=== PATIENT | female | born 1965 | race Caucasian/White ===

== ENCOUNTER 2017-08-29 14:57 | Emergency (ER) | payer OTHER, SELFPAY ==
[2017-08-29 14:59] VITALS: BP 139/74; PULSE 114; RESP 18; TEMP 36.1; O2SAT 97; BMI 30.4
--- NOTE | 2017-08-29 16:13 | EKG12_ITS ---
Test Reason : DIZZINESS Blood Pressure : / mmHG Vent. Rate : 096 BPM Atrial Rate : 096 BPM P-R Int : 126 ms QRS Dur : 078 ms QT Int : 358 ms P-R-T Axes : 027 043 030 degrees QTc Int : 452 ms Normal sinus rhythm Normal ECG Confirmed by LA NENA VAZQUEZ ([id number]), assistant editor SHERRY COYNE ([id number]) on 09/02/2017 10:20:21 AM Referred By: TOMASZ Confirmed By:LA NENA VAZQUEZ
[2017-08-29 16:26] VITALS: BP 133/84; PULSE 97; RESP 14; O2SAT 100
--- NOTE | 2017-08-29 16:29 | CT_ITS ---
CT Head or Brain W/O Contrast INDICATION: Head injury, dizzy and fell hitting head on floor, laceration above left eye, pt states she had a reaction to prednisone for a sinus infection COMPARISON: None TECHNIQUE: Noncontrast axial CT examination of the brain. Radiation dose optimization applied. FINDINGS: The ventricular system is normal in size and symmetric. The cortical sulci, sylvian fissures, and basal cisterns are well seen. The kaiser-white matter junction is distinct. There is no evidence of acute intracranial hemorrhage, mass effect, midline shift, or abnormal extra-axial collection. The calvarium is intact and the visualized paranasal sinuses and mastoid air cells are clear. CT/Brain/Head without Contrast IMPRESSION: No evidence of acute intracranial abnormality by noncontrast CT. at 1715 Reported and signed by: Nickie Gastelum MD Electronically Signed: Nickie Gastelum MD at 16:13 EST Tel , Service support ,
--- NOTE | 2017-08-29 16:35 | ED.DCSUM_ITS ---
- ER Visit Summary Date of Service: 08/29/17 Chief Complaint: Head injury History of Present Illness: The patient is a 52 F who states that after a couple months of a sinus infection she was placed on Medrol and Levaquin. She took these around noon yesterday. She went to work into noting blurred vision. She states that eventually she went home having a difficult time driving due to her vision. She is going up the stairs tripped over her dog hit her head is unknown if she lost consciousness. She states that she has blood on her face and her hands. She notes a cut to the left upper eyebrow/lid. States that she continues to have blurry vision. States she got confused on the way here to the hospital. She was originally seen at the [facility] and had an eye examination was sent here. No vomiting. She also states her left knee is braced and sore. Last tetanus shot was approximately 2 years ago Physical Examination: Afebrile vital signs are stable Gen: Well-nourished well-developed Head: Normocephalic left upper eyelid ecchymosis and swelling. There is a well approximated partial thickness laceration measuring about 2-1/2 cm curvilinear in that left eyebrow area. Eyes: Perrl EOMI no hyphema ENT: TMs clear no rhinorrhea moist mucous membranes Neck: Supple no lymphadenopathy no JVD nontender CVS: Regular rate rhythm no murmurs normal S1-S2 Respiratory: No distress clear to auscultation bilaterally chest nontender Abdomen: Soft nontender nondistended normal bowel sounds no masses Back: Nontender Extremity: Nontender no edema Skin: Normal color no rash Neuro: alert orientated ?3 CN II-XII intact normal strength sensation reflexes gait cerebellar Psych: Normal affect normal mood Test Results: CT the brain was obtained was negative. EKG is a sinus rhythm at a rate of 96. Emergency Department Course and Treatment: Recommendations the patient stop her Medrol and her Levaquin. Eliminate any new medication could be causing it. She probably has a degree of concussion given the head injury. I will write her off work through Friday. She will visit with her family doctor next week. Impression: 1. Concussion 2. Left periorbital contusion 3. Partial thickness laceration of left eyebrow without repair This note was generated with [employer] software. It may contain incorrect words, spelling, and punctuation that were not noted in review of the chart prior to signing ED Disposition - Plan for ED Patient: Disposition: Home or Assisted Living Chief Complaint: Dizziness Instructions: ED Concussion Referrals: Karl Pichardo MD [Primary Care Provider] - (in 3 days if not improving)
[2017-08-29 17:40] VITALS: BP 131/77; PULSE 96; RESP 15; O2SAT 97
== END 2017-08-29 17:45 | disposition home or self-care (01) ==
PROVIDERS: Emergency Provider Emergency Medicine; Family Provider Family Medicine; PCP Family Medicine
DX: S06.0X9A Concussion with loss of consciousness of unspecified duration, initial encounter (principal); S00.12XA Contusion of left eyelid and periocular area, initial encounter; S01.112A Laceration without foreign body of left eyelid and periocular area, initial encounter; W01.0XXA Fall on same level from slipping, tripping and stumbling without subsequent striking against object, initial encounter; Y93.01 Activity, walking, marching and hiking; Y92.009 Unspecified place in unspecified non-institutional (private) residence as the place of occurrence of the external cause; I10 Essential (primary) hypertension; E11.9 Type 2 diabetes mellitus without complications; F32.9 Major depressive disorder, single episode, unspecified; K21.9 Gastro-esophageal reflux disease without esophagitis; Z79.4 Long term (current) use of insulin; Z79.899 Other long term (current) drug therapy
CPT/HCPCS: 70450; 93005; 99283

== ENCOUNTER → 2017-09-19 14:02 | Emergency (ER) | payer OTHER, SELFPAY ==
[2017-09-19 14:03] VITALS: BP 121/78; PULSE 98; RESP 16; TEMP 36.2; O2SAT 100; BMI 29.5
== END ==
PROVIDERS: Family Provider Family Medicine; PCP Family Medicine
DX: R69 Illness, unspecified (principal)

== ENCOUNTER 2017-10-04 00:14 | Emergency (ER) | payer OTHER, SELFPAY ==
[2017-10-04 00:15] VITALS: PULSE 114; RESP 28; TEMP 36.9; O2SAT 95; BMI 30.1
[2017-10-04 00:17] VITALS: BP 161/115
--- NOTE | 2017-10-04 00:23 | ED.VISSUMM ---
- ER Visit Summary Date of Service: 10/04/17 Chief Complaint: [] Cough wheezing shortness of breath History of Present Illness: The patient is a 52 F with the above for the last 4 days. Gradual onset intermittent coughing occasional productive sputum. History of asthma. She has been using albuterol inhaler intermittently. Use prior to coming in. She has a [id number] cough medicine she has been using as well. Positive sick contacts. She has a history of asthma pneumonia remotely. She does not smoke. Physical Examination: Vital signs reviewed General: Well-nourished well-developed Head: Normocephalic atraumatic Eyes: Pupils equal round and reactive to light extraocular movements intact ENT: TMs clear no hemotympanum no trauma Neck: Nontender full range of motion Cardiovascular: Regular rate rhythm no murmurs normal S1-S2 Respiratory: No distress or wheezes throughout all lung hart chest nontender Abdomen: Soft nontender nondistended normal bowel sounds no masses Back: Nontender no CVA tenderness Extremities: Nontender active range of motion ?4 extremities no trauma Skin: Normal color no trauma Neuro alert oriented cranial nerves II through XII intact normal strength sensation reflexes Test Results: [] Emergency Department Course and Treatment: [] Prednisone and albuterol Atrovent nebulizer followed by albuterol nebulizers. Chest x-ray obtained. Nothing acute. After breathing treatments the patient developed a panic attack. Given intramuscular Ativan for this which resolved at. EKG obtained shows sinus tachycardia only. No ischemia. After the treatment with albuterol and Atrovent her wheezing has resolved and she is resting comfortably. Ativan helped stop her panic attack. She has had that prior. She will be given Ativan and prednisone for home as well as an inhaler. At this time she has asthmatic bronchitis that I think triggered a panic attack. Treatment Plan: [] Disposition: [] Impression: [] Asthmatic bronchitis Panic attack This note was generated with [employer] dictation software. It may contain incorrect words, spelling, and punctuation that were not noted in review of the chart prior to signing ED Disposition - Plan for ED Patient: Chief Complaint: Shortness of Breath Referrals: Karl Pichardo MD [Primary Care Provider] -
[2017-10-04 00:31] VITALS: PULSE 112; RESP 24
[2017-10-04] MEDS: Albuterol 2.5 MG/3 ML VIAL.NEB. INHALATION ×2 (00:31)
[2017-10-04] MEDS: Ipratropium/Albuterol Sulfate 3 ML AMPUL.NEB INHALATION (00:31)
--- NOTE | 2017-10-04 00:45 | RAD_ITS ---
STUDY: X-RAY CHEST REASON FOR EXAM: Female, 52 years old. Cough TECHNIQUE: Single frontal view COMPARISON: November 03, 2016 FINDINGS: The lungs are clear and expanded. There is no demonstrated pleural abnormality. Normal size heart. Normal mediastinum and jojo. Normal visualized pulmonary arteries. Normal visualized aortic arch and descending thoracic aorta. Normal visualized thoracic spine. Normal visualized ribs, clavicles, and shoulders. There is no demonstrated abnormality of the visualized soft tissue structures of the upper abdomen. RAD/Chest 1 View (Portable) IMPRESSION: Normal x-ray examination of the chest. Electronically Signed: Refugio Fu MD at 1:55 EST , Service support ,
[2017-10-04] MEDS: LORazepam 2 MG/ML Syringe IM (00:58)
[2017-10-04 01:27] VITALS: O2SAT 96
[2017-10-04 01:43] VITALS: BP 145/95; PULSE 115; RESP 21; O2SAT 98
--- NOTE | 2017-10-04 01:46 | EKG12_ITS ---
Test Reason : Blood Pressure : / mmHG Vent. Rate : 112 BPM Atrial Rate : 112 BPM P-R Int : 128 ms QRS Dur : 080 ms QT Int : 336 ms P-R-T Axes : 029 017 017 degrees QTc Int : 458 ms Sinus tachycardia Otherwise normal ECG Confirmed by DARIUSZ MURILLO, FELICIA ([id number]), advertising editor SHERRY COYNE ([id number]) on 10/07/2017 4:32:59 PM Referred By: YUNI Confirmed By:FELICIA ARZOLA MD
--- NOTE | 2017-10-04 02:00 | ED.DEP ---
ED Disposition - Plan for ED Patient: Disposition: Home or Assisted Living Chief Complaint: Shortness of Breath Instructions: ED Bronchitis Asthmatic, ED Panic Attack Prescriptions: Albuterol Inhaler [Ventolin Hfa] 1 - 2 puff INHALATION Q4H PRN PRN #1 inhaler PRN Reason: Wheezing Prednisone [Deltasone] 60 mg PO DAILY #15 tab Lorazepam [Ativan] 1 mg PO TID #10 tab Referrals: Karl Pichardo MD [Primary Care Provider] -
[2017-10-04 02:09] VITALS: BP 143/96; PULSE 118; RESP 18; O2SAT 97
== END 2017-10-04 02:10 | disposition home or self-care (01) ==
PROVIDERS: Emergency Provider Emergency Medicine; Family Provider Family Medicine; PCP Family Medicine
DX: J45.909 Unspecified asthma, uncomplicated (principal); F41.0 Panic disorder [episodic paroxysmal anxiety]; I10 Essential (primary) hypertension; E11.9 Type 2 diabetes mellitus without complications; Z79.84 Long term (current) use of oral hypoglycemic drugs; E66.9 Obesity, unspecified; Z68.30 Body mass index [BMI] 30.0-30.9, adult; Z87.01 Personal history of pneumonia (recurrent); Z79.899 Other long term (current) drug therapy
CPT/HCPCS: 71045; 93005; 94640; 96372; 99284

== ENCOUNTER → 2017-12-31 11:09 | Outpatient (CLI) | payer MEDICAID, SELFPAY | PROVIDERS: Family Provider Family Medicine; PCP Family Medicine; Visit Provider Family Medicine | DX: N39.0 Urinary tract infection, site not specified (principal) | CPT/HCPCS: 87086; 87088; 87186 ==

== ENCOUNTER → 2018-01-28 15:00 | Outpatient (CLI) | payer MEDICAID, SELFPAY ==
--- NOTE | 2018-01-28 15:08 | RAD_ITS ---
STUDY: X-RAY - RIGHT SHOULDER REASON FOR EXAM: Female, 52 years old. Pain, weakness, limited range of motion. History of humeral fracture and ruptured bicep. TECHNIQUE: 4 view(s) of the shoulder. COMPARISON: 4 views of the right shoulder July 07, 2016 FINDINGS: Normal glenohumeral articulation. There is mild widening of the acromioclavicular joint compared to prior study, as well as more tapered contour of the distal clavicle. Normal acromion. The cortical avulsion fragments along the lateral margin of the humeral head are no longer evident, but there is a flattened contour of the lateral humeral head that was less conspicuous on previous study. The soft tissue structures are unremarkable. There is no demonstrated acute fracture. Normal visualized pulmonary apex. RAD/Shoulder min 2 Views IMPRESSION: 1. Flattened contour of the lateral right humeral head. The cortical avulsion fracture fragment(s) seen on previous imaging are no longer apparent. 2. Mild widening of the acromioclavicular joint as well as a more tapered contour of the distal clavicle. Grade 1 AC joint separation could have this appearance. Has this patient undergone partial surgical resection of the distal clavicle since July 2016? Electronically Signed: Amor Jamil MD at 15:48 EDT , Service support ,
== END ==
PROVIDERS: Family Provider Family Medicine; PCP Family Medicine; Visit Provider Physician Assistant
DX: S46.911A Strain of unspecified muscle, fascia and tendon at shoulder and upper arm level, right arm, initial encounter (principal)
CPT/HCPCS: 73030

== ENCOUNTER → 2018-02-17 13:02 | Outpatient (CLI) | payer OTHER, SELFPAY ==
--- NOTE | 2018-02-17 13:45 | MRI_ITS ---
STUDY: MRI RIGHT SHOULDER REASON FOR EXAM: Female, 52 years old. Pain. Prior surgery. TECHNIQUE: Standardized fat and water weighted pulse sequences were obtained in all 3 orthogonal planes. COMPARISON: X-ray January 28, 2018 FINDINGS: Full-thickness tear of the supraspinatus and infraspinatus tendons with retraction 2.0 cm, series 8 images 01/21 through . Normal subscapularis tendon. Normal teres minor tendon. There is mild muscular atrophy of the supraspinatus muscle. There is mild muscular atrophy of the infraspinatus muscle. Normal subscapularis muscle. Normal teres minor muscle. Normal glenohumeral articulation. There is postoperative change of the humeral head. There is flattening of the lateral aspect. There are tracts from hardware on the lateral aspect. Normal biceps labral complex. Normal intracapsular long biceps tendon. Normal labrum. Normal capsulo- ligamentous complex. Normal rotator interval. There is partial resection at the acromioclavicular articulation. There is a Type I morphology (flat undersurface) acromion, with a neutral orientation. There is minimal fluid distention of the subacromial bursa, consistent with mild subacromial-subdeltoid bursitis. Normal visualized coracohumeral and coracoacromial ligaments. Normal quadrilateral space. Normal axillary space. Normal deltoid muscle. Normal trapezius muscle. MRI/Upper Ext Joint Only(Routine) IMPRESSION: Postoperative changes with recurrent full-thickness rotator cuff tear of the supraspinatus and infraspinatus tendons. Electronically Signed: Andry Patel MD at 17:55 EDT , Service support ,
== END ==
PROVIDERS: Family Provider Family Medicine; PCP Family Medicine; Visit Provider Physician Assistant
DX: S46.811A Strain of other muscles, fascia and tendons at shoulder and upper arm level, right arm, initial encounter (principal); X58.XXXA Exposure to other specified factors, initial encounter
CPT/HCPCS: 73221

== ENCOUNTER 2018-04-17 12:33 | Emergency (ER) | payer MEDICAID, SELFPAY ==
[2018-04-17 12:34] VITALS: BP 178/107; PULSE 91; RESP 18; TEMP 36.7; O2SAT 99; BMI 29.7
--- NOTE | 2018-04-17 12:51 | EKG12_ITS ---
Test Reason : HYPERTENSION Blood Pressure : / mmHG Vent. Rate : 087 BPM Atrial Rate : 087 BPM P-R Int : 146 ms QRS Dur : 080 ms QT Int : 372 ms P-R-T Axes : 022 014 012 degrees QTc Int : 447 ms Normal sinus rhythm Normal ECG Confirmed by DARIUSZ MURILLO, FELICIA ([id number]), editor trade journal SHERRY COYNE ([id number]) on 04/20/2018 3:11:45 PM Referred By: ER DOC Confirmed By:FELICIA ARZOLA MD
--- NOTE | 2018-04-17 12:51 | CT_ITS ---
STUDY: CT BRAIN WITHOUT CONTRAST REASON FOR EXAM: Female, 53 years old. Altered mental status. Elevated blood pressure. Patient not acting right. RADIATION DOSAGE (If Supplied By Facility): CTDIvol = ( 44.99 ) mGy, DLP = ( 796.11 ) mGycm TECHNIQUE: Transaxial CT imaging of the brain was performed without administration of intravenous contrast material. Individualized dose optimization techniques were used for this CT. COMPARISON: August 29, 2017 FINDINGS: Normal soft tissue structures. Normal calvarium. Normal size ventricles and extra-axial spaces for the patient's age. Normal white matter tracts of the cerebral hemispheres. Normal basal ganglia and thalami. Normal brainstem. Normal cerebellum. There is no intracranial hemorrhage. There are no findings of an acute ischemic infarction. Normal visualized paranasal sinuses. CT/Brain/Head without Contrast IMPRESSION: Normal unenhanced CT scan of the brain. Electronically Signed: Andry Patel MD at 15:35 EDT , Service support ,
--- NOTE | 2018-04-17 13:02 | ED.DCSUM_ITS ---
- ER Visit Summary Date of Service: 04/17/18 Chief Complaint: High blood pressure, leg swelling History of Present Illness: The patient is a 53 F presents to the emergency department with high blood pressure and leg swelling. The patient states she has a history of high blood pressure. She was on lisinopril 20 mg. She states that she was recently vacationing with her friend who is a [employer]. She states that she took her blood pressure and was low. She stopped taking her medications for the past 2 weeks. She was resumed yesterday. She states that her blood pressures been running high. She admits to some swelling in both legs. She also admits to some shortness of breath. She denies chest pain or headache. She denies any visual change. She denies orthopnea. Physical Examination: Vital signs reviewed General: Well-nourished, well-developed Head: Normocephalic, atraumatic Eyes: Pupils equal and reactive, extraocular muscles intact Neck, supple, no lymphadenopathy Heart: Regular rate and rhythm Respiratory: No distress, clear bilaterally Abdomen: Soft, nontender, nondistended, no peritoneal signs Back: Nontender Extremities: Nontender, trace edema bilateral lower extremities, no cords Skin: Normal color no rash Neuro: Alert and oriented, no focal or lateralizing deficits Test Results: [] Emergency Department Course and Treatment: Hypertensive workup was pursued in the emergency department. EKG was unremarkable. Chest x-ray shows no evidence of cardiomegaly or volume overload. Head CT was also unremarkable. Screening labs including kidney function are unremarkable. I do feel the patient symptoms are likely secondary to her untreated hypertension. She had actually seen her primary care in the office yesterday and they were going to start her on Lasix. At this time, I do for the patient is safe for discharge. I do not suspect acute coronary syndrome. I do not suspect hypertensive emergency. I spoke with Dr. Barnhart who is very familiar with the patient. At this time, he wants to hold on any diuretic therapy. He will see the patient in office early next week. The patient was counseled on resuming her antihypertensives and avoiding salt. The patient be discharged home. Treatment Plan: [] Disposition: Discharge Impression: Hypertension secondary to medication noncompliance This note was generated with [employer] software. It may contain incorrect words, spelling, and punctuation that were not noted in review of the chart prior to signing ED Disposition - Plan for ED Patient: Chief Complaint: Hypertension Instructions: ED HTN Established Referrals: Karl Pichardo MD [Primary Care Provider] -
[2018-04-17 13:22] LABS: Absolute Lymphocyte Count 2.51 X10^3/ul (0.83-4.51); Absolute Neutrophil Count 4.9 X10^3/uL (2.0-7.7); Basophil# 0.04 X10^3/uL; Basophil% 0.5 % (0-1); Eosinophil# 0.23 X10^3/uL; Eosinophils% 2.8 % (0-5); Hematocrit 35.7 % (37-47); Hemoglobin 11.4 g/dl (12.0-15.0); Lymphocyte # 2.51 X10^3/ul (4.0); Lymphocyte % 30.6 % (19-41); Mean Corp Hgb Conc 31.9 g/gl (32-36); Mean Corpuscular Hgb 29.2 pg (27.0-32.0); Mean Corpuscular Volume 91.3 fL (81-99); Mean Platelet Vol. 8.9 fl (6.2-12.0); Monocyte# 0.52 X10^3/uL; Monocyte% 6.3 % (0-10); Neutrophil % 59.7 % (47-70); POSITIVE COUNT NO; POSITIVE DIFFERENTIAL NO; POSITIVE MORPHOLOGY NO; Platelet Count 395 K/mm3 (150-450); RBC Distribution Width CV 13.1 % (11.6-14.6); RBC Distribution Width SD 43.1 fl (35.1-43.9); Red Blood Count 3.91 M/mm3 (4.2-5.4); White Blood Count 8.2 K/mm3 (4.4-11.0)
[2018-04-17 13:47] LABS: Albumin, Serum 3.2 g/dL (3.2-5.0); BUN 8 mg/dL (7-18); BUN/Creat Ratio 10.5 RATIO (10-20); Creatinine, Serum 0.76 mg/dL (0.55-1.02); EST Glomerular Filtration Rate 84 mL/min (>60); Est Glom Filt Rate - Afr Amer 102 mL/min (>60); Estimated Creatinine Clearance 87.35 ml/min; Globulin 3.7 g/dL (2.2-4.2); Glucose 141 mg/dL (74-106); Protein, Total 6.9 g/dL (6.4-8.2)
[2018-04-17 13:48] VITALS: PULSE 91; RESP 18; O2SAT 98
[2018-04-17 13:48] LABS: ALB/GLOB Ratio 0.9 RATIO (0.9-2.4); AST(SGOT) 60 U/L (15-37); Alanine Aminotransfer ALT/SGPT 42 U/L (13-56); Alkaline Phosphatase 91 U/L (45-117); Anion Gap 11 (5-15); Calcium,Total 8.8 mg/dL (8.5-10.1); Chloride 106 mmol/L (98-107); Potassium 3.3 mmol/L (3.5-5.1); Sodium Level 143 mmol/L (136-145)
--- NOTE | 2018-04-17 13:57 | RAD_ITS ---
STUDY: X-RAY CHEST REASON FOR EXAM: Female, 53 years old. CHF TECHNIQUE: PA and lateral views of the chest. COMPARISON: October 04, 2017. FINDINGS: The lungs are clear and expanded. There is no demonstrated pleural abnormality. Normal size heart. Normal mediastinum and jojo. Normal visualized pulmonary arteries. Normal visualized aortic arch and descending thoracic aorta. Normal visualized thoracic spine. Normal visualized ribs, clavicles, and shoulders. There is no demonstrated abnormality of the visualized soft tissue structures of the upper abdomen. RAD/Chest PA and Lateral IMPRESSION: Normal x-ray examination of the chest. Electronically Signed: Andry Patel MD at 15:01 EDT , Service support ,
[2018-04-17 15:16] VITALS: PULSE 84; RESP 18; O2SAT 96
[2018-04-17 15:58] VITALS: BP 166/95; PULSE 79; RESP 15; O2SAT 99
[2018-04-17 17:51] LABS: BNP,B-Type NATRIURETIC PEPTIDE 30.3 pg/mL (0-100)
== END 2018-04-17 15:59 | disposition home or self-care (01) ==
PROVIDERS: Emergency Provider Emergency Medicine; Family Provider Family Medicine; PCP Family Medicine
DX: I10 Essential (primary) hypertension (principal); T46.4X6A Underdosing of angiotensin-converting-enzyme inhibitors, initial encounter; E11.9 Type 2 diabetes mellitus without complications; Z79.84 Long term (current) use of oral hypoglycemic drugs; Z79.899 Other long term (current) drug therapy
CPT/HCPCS: 70450; 71046; 80053; 83880; 84484; 85025; 93005; 99285; A4216

== ENCOUNTER 2018-07-29 13:20 | Emergency (ER) | payer MEDICAID, SELFPAY ==
[2018-07-29 13:20] VITALS: BP 166/98; PULSE 113; RESP 18; TEMP 36.8; O2SAT 97; BMI 28.8
--- NOTE | 2018-07-29 13:49 | ED.VISSUMM ---
- ER Visit Summary Date of Service: 07/29/18 Chief Complaint: Constellation of upper respiratory symptoms History of Present Illness: The patient is a 53 F who presents because of fever documented 100.7, sore throat, nasal congestion and runny nose, nonproductive cough, myalgias and not feeling well. She also reports headache. She denies photophobia, neck pain or neck stiffness. She denies rash. She is a non-smoker. She does have history of asthma and reports that her inhaler has not helped. She does not have a spacer. She did not get a flu vaccine this year. Physical Examination: Vital signs noted and are marked for an elevated blood pressure 140/92. HEENT exam is remarkable for boggy nasal mucosa. She does have a hoarse voice. Posterior pharynx without erythema or exudate. Uvula midline. Trachea is midline. There is no stridor R station neck. There is slight wheeze noted with forced expiration bilaterally. Heart is regular without murmur, gallop or rub. Remainder of exam is unremarkable. Test Results: Rapid influenza screen negative Emergency Department Course and Treatment: Patient was treated with DuoNeb, albuterol, 60 mg of prednisone and was assessed for influenza. Treatment Plan: Prescription for prednisone burst. Patient is wheeze free. She was informed that she may be sick for another 10-14 days. Disposition: Discharged home in stable improved condition Impression: 1. Exacerbation of asthma 2. Acute viral upper respiratory infection This note was generated with [employer] dictation software. It may contain incorrect words, spelling, and punctuation that were not noted in review of the chart prior to signing ED Disposition - Plan for ED Patient: Disposition: Home or Assisted Living Chief Complaint: Sore Throat Instructions: ED URI Viral, ED Inhaler Use, ED Reactive Airway Disease Prescriptions: Inhaler, Assist Devices [Space Chamber Plus] 1 ea UD #1 spacer Prednisone 40 mg PO DAILY #8 tab Referrals: Karl Pichardo MD [Primary Care Provider] - 10-14 Days if not better Additional Instructions: 2 puffs of inhaler every 2-4 hours while awake for the next 2 days then every 4-6 hours while awake for 2 days then every 4-6 hours as needed.
[2018-07-29 13:53] VITALS: PULSE 113; RESP 20
[2018-07-29] MEDS: Ipratropium/Albuterol Sulfate 3 ML AMPUL.NEB INHALATION (13:53)
[2018-07-29] MEDS: Albuterol 2.5 MG/3 ML VIAL.NEB. INHALATION (13:53)
[2018-07-29 14:00] VITALS: BP 146/90; PULSE 109; RESP 17; TEMP 36.9; O2SAT 97
[2018-07-29] MEDS: predniSONE 20 MG Tablet 60 MG PO (14:08)
[2018-07-29 15:13] VITALS: BP 162/93; PULSE 116; RESP 25; O2SAT 97
== END 2018-07-29 15:15 | disposition home or self-care (01) ==
PROVIDERS: Emergency Provider Emergency Medicine; Family Provider Family Medicine; PCP Family Medicine
DX: J45.901 Unspecified asthma with (acute) exacerbation (principal); J06.9 Acute upper respiratory infection, unspecified; I10 Essential (primary) hypertension; K21.9 Gastro-esophageal reflux disease without esophagitis; F32.9 Major depressive disorder, single episode, unspecified; E66.9 Obesity, unspecified; Z68.28 Body mass index [BMI] 28.0-28.9, adult; Z79.899 Other long term (current) drug therapy
CPT/HCPCS: 87804; 94640; 99283

== ENCOUNTER → 2018-09-24 11:06 | Outpatient (CLI) | payer OTHER, SELFPAY ==
--- NOTE | 2018-09-24 11:20 | EKG12_ITS ---
Test Reason : PRE-OP Blood Pressure : / mmHG Vent. Rate : 097 BPM Atrial Rate : 097 BPM P-R Int : 134 ms QRS Dur : 078 ms QT Int : 356 ms P-R-T Axes : 035 027 015 degrees QTc Int : 452 ms Normal sinus rhythm Nonspecific ST abnormality Abnormal ECG Confirmed by DARIUSZ MURILLO, FELICIA ([id number]), editorial assistant JENY DIAZ ([id number]) on 09/28/2018 5:23:59 PM Referred By: Narinder Nair Confirmed By:FELICIA ARZOLA MD
[2018-09-24 11:32] LABS: Hematocrit 38.9 % (37-47); Hemoglobin 12.4 g/dl (12.0-15.0); Mean Corp Hgb Conc 31.9 g/gl (32-36); Platelet Count 326 K/mm3 (150-450); RBC Distribution Width CV 13.4 % (11.6-14.6); RBC Distribution Width SD 46.1 fl (35.1-43.9); Red Blood Count 4.14 M/mm3 (4.2-5.4); White Blood Count 8.7 K/mm3 (4.4-11.0)
[2018-09-24 11:33] LABS: Scan Indicated on CBC? Y/N NO
[2018-09-24 11:58] LABS: Anion Gap 12 (5-15); BUN 8 mg/dL (7-18); BUN/Creat Ratio 9.9 RATIO (10-20); Calcium,Total 8.1 mg/dL (8.5-10.1); Chloride 104 mmol/L (98-107); Creatinine, Serum 0.81 mg/dL (0.55-1.02); EST Glomerular Filtration Rate 79 mL/min (>60); Est Glom Filt Rate - Afr Amer 96 mL/min (>60); Glucose 194 mg/dL (74-106); Potassium 3.7 mmol/L (3.5-5.1); Sodium Level 138 mmol/L (136-145)
== END ==
PROVIDERS: Family Provider Family Medicine; PCP Family Medicine; Referring Provider Physician Assistant; Visit Provider Physician Assistant
DX: Z01.818 Encounter for other preprocedural examination (principal); Z01.810 Encounter for preprocedural cardiovascular examination
CPT/HCPCS: 36415; 80048; 85027; 93005

== ENCOUNTER → 2018-10-05 14:47 | Outpatient (CLI) | payer OTHER, SELFPAY ==
[2018-10-05 15:59] LABS: Hemoglobin A1c 6.8 % (4.2-6.3)
== END ==
PROVIDERS: Family Provider Family Medicine; PCP Family Medicine; Referring Provider Orthopaedic Surgery; Visit Provider Orthopaedic Surgery
DX: E11.69 Type 2 diabetes mellitus with other specified complication (principal)
CPT/HCPCS: 36415; 83036

== ENCOUNTER → 2019-04-26 13:23 | Outpatient (CLI) | payer MEDICAID, SELFPAY ==
[2019-04-26 15:33] LABS: Absolute Lymphocyte Count 2.49 X10^3/uL (0.83-4.51); Absolute Neutrophil Count 4.5 X10^3/uL (2.0-7.7); Basophil# 0.07 X10^3/uL; Basophil% 0.9 % (0-1); Eosinophil# 0.26 X10^3/uL; Eosinophils% 3.2 % (0-5); Hematocrit 41.3 % (37-47); Lymphocyte # 2.49 X10^3/ul (4.0); Mean Corp Hgb Conc 31.5 g/dL (32-36); Mean Corpuscular Volume 95.4 fL (81-99); Mean Platelet Vol. 9.1 fl (6.2-12.0); Monocyte# 0.68 X10^3/uL; Monocyte% 8.5 % (0-10); NRBC Flagged by Analyzer 0 % (0-5); Platelet Count 312 K/mm3 (150-450); RBC Distribution Width CV 13.4 % (11.6-14.6); RBC Distribution Width SD 46.8 fl (35.1-43.9); Red Blood Count 4.33 M/mm3 (4.2-5.4)
[2019-04-26 15:49] LABS: Anion Gap 9 (5-15); BUN 12 mg/dL (7-18); BUN/Creat Ratio 15.3 RATIO (10-20); Calcium,Total 8.6 mg/dL (8.5-10.1); Chloride 108 mmol/L (98-107); Creatinine, Serum 0.78 mg/dL (0.55-1.02); EST Glomerular Filtration Rate 82 mL/min (>60); Est Glom Filt Rate - Afr Amer 99 mL/min (>60); Glucose 150 mg/dL (74-106); Magnesium 1.8 mg/dL (1.6-2.6); Potassium 3.6 mmol/L (3.5-5.1); Sodium Level 142 mmol/L (136-145); Thyroid Stim Hormone (TSH) 2.46 uIU/mL (0.358-3.74)
== END ==
PROVIDERS: Family Provider Family Medicine; PCP Family Medicine; Visit Provider Family Medicine
DX: E11.9 Type 2 diabetes mellitus without complications (principal); I10 Essential (primary) hypertension; R00.2 Palpitations
CPT/HCPCS: 36415; 80048; 83735; 84443; 85025

== ENCOUNTER → 2019-05-05 09:07 | Outpatient (CLI) | payer MEDICAID, SELFPAY ==
[2019-05-04 11:32] VITALS: BMI 28.4
[2019-05-05 10:07] LABS: AST(SGOT) 103 U/L (15-37); Alanine Aminotransfer ALT/SGPT 72 U/L (13-56); Albumin, Serum 3.6 g/dL (3.2-5.0); Alkaline Phosphatase 112 U/L (45-117); Cholesterol 253 mg/dL (200); Globulin 4.1 g/dL (2.2-4.2); High Density Lipoprotein 66 mg/dL; Protein, Total 7.7 g/dL (6.4-8.2); T4 Total, Thyroxin 7.4 ug/dL (4.8-13.9); Triglycerides 389 mg/dL; Very Low Density Lipoprotein 78 mg/dL (5-40)
== END ==
PROVIDERS: Family Provider Family Medicine; PCP Family Medicine; Referring Provider Internal Medicine Cardiovascular Disease; Visit Provider Internal Medicine Cardiovascular Disease
DX: E11.9 Type 2 diabetes mellitus without complications (principal); E78.5 Hyperlipidemia, unspecified; R07.9 Chest pain, unspecified
CPT/HCPCS: 36415; 80061; 80076; 84436; 84443

== ENCOUNTER 2019-05-09 14:40 | Emergency (ER) | payer MEDICAID, SELFPAY ==
[2019-05-04 11:32] VITALS: BMI 28.4
[2019-05-09 14:41] VITALS: BP 187/116; PULSE 109; RESP 20; TEMP 36.1; O2SAT 99; BMI 28.4
--- NOTE | 2019-05-09 14:51 | RAD_ITS ---
STUDY: X-RAY CHEST REASON FOR EXAM: Female, 54 years old. Chest pain TECHNIQUE: Frontal view of the chest COMPARISON: 07/17/2018 FINDINGS: The lungs are clear. There are no pleural effusions. There is no pneumothorax. The heart is normal in size. The visualized osseous structures are within normal limits. RAD/Chest 1 View (Portable) IMPRESSION: No acute thoracic pathology. Electronically Signed: Damion Richard, at 15:29 EDT Tel , Service support ,
--- NOTE | 2019-05-09 14:51 | EKG12_ITS ---
Test Reason : CP Blood Pressure : / mmHG Vent. Rate : 110 BPM Atrial Rate : 110 BPM P-R Int : 128 ms QRS Dur : 072 ms QT Int : 330 ms P-R-T Axes : 035 052 020 degrees QTc Int : 446 ms Sinus tachycardia Nonspecific ST abnormality Abnormal ECG Confirmed by LA NENA MCKAY ([id number]), editorial cartoonist SHERRY COYNE ([id number]) on 05/17/2019 3:52:17 PM Referred By: La Nena Mckay Confirmed By:LA NENA MCKAY
[2019-05-09 15:01] LABS: Bedside Glucose 149 mg/dL (70-110)
[2019-05-09] MEDS: Ondansetron 4 MG/2 ML Vial IV (15:04)
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
[2019-05-09 15:13] LABS: Absolute Neutrophil Count 4.8 X10^3/uL (2.0-7.7); Basophil# 0.07 X10^3/uL; Basophil% 0.8 % (0-1); Eosinophil# 0.21 X10^3/uL; Eosinophils% 2.3 % (0-5); Hematocrit 44.7 % (37-47); Hemoglobin 14.9 g/dL (12.0-15.0); Lymphocyte % 35.2 % (19-41); Mean Corp Hgb Conc 33.3 g/dL (32-36); Mean Corpuscular Hgb 30.5 pg (27.0-32.0); Mean Corpuscular Volume 91.6 fL (81-99); Mean Platelet Vol. 9.3 fl (6.2-12.0); Monocyte# 0.74 X10^3/uL; Monocyte% 8.1 % (0-10); NRBC Flagged by Analyzer 0 % (0-5); Neutrophil # 4.84 X10^3/uL (2.7-7.7); Neutrophil % 53.3 % (47-70); POSITIVE COUNT YES; Platelet Count 388 K/mm3 (150-450); RBC Distribution Width CV 12.9 % (11.6-14.6); RBC Distribution Width SD 43.2 fl (35.1-43.9); Red Blood Count 4.88 M/mm3 (4.2-5.4); White Blood Count 9.1 K/mm3 (4.4-11.0)
[2019-05-09 15:15] LABS: Differential Indicated SCAN CRITERIA MET
[2019-05-09 15:25] LABS: Base Excess -6 mmol/L (-2 to +2); Bicarbonate 16.8 mmol/L (22-26); Blood Gas Specimen Type ART; O2 Delivery Device Room Air; PO2 111 mmHG (75-100); SITE R Radial; SO2 99 % (95-99); Time Given 1513; Total Carbon Dioxide 17 mmol/L; pCO2 19.6 mmHg (35-45); pH 7.54 (7.35-7.45)
[2019-05-09 15:40] VITALS: BP 137/91; PULSE 98; RESP 17; O2SAT 98
[2019-05-09 15:43] LABS: Differential Comment SCANNED; Platelet Estimate ADEQUATE (ADEQ); Red Cell Morphology NORM C+C NORMAL (NORM C&C)
[2019-05-09 16:03] LABS: Anion Gap 15 (5-15); BUN 13 mg/dL (7-18); BUN/Creat Ratio 12.7 RATIO (10-20); Calcium,Total 8.8 mg/dL (8.5-10.1); Chloride 105 mmol/L (98-107); Creatinine, Serum 1.02 mg/dL (0.55-1.02); EST Glomerular Filtration Rate 60 mL/min (>60); Est Glom Filt Rate - Afr Amer 73 mL/min (>60); Estimated Creatinine Clearance 64.34 ml/min; Glucose 130 mg/dL (74-106); Potassium 3.7 mmol/L (3.5-5.1); Sodium Level 140 mmol/L (136-145)
[2019-05-09] MEDS: LORazepam 2 MG/ML Syringe 0.5 MG IV (16:18)
[2019-05-09 16:49] VITALS: BP 132/95; PULSE 102; RESP 15; O2SAT 98
[2019-05-09 18:29] VITALS: BP 141/83; PULSE 100; RESP 24; O2SAT 97
[2019-05-09 19:40] VITALS: BP 135/98; PULSE 100; RESP 18; O2SAT 97
== END 2019-05-09 19:41 | disposition home or self-care (01) ==
LOC: ED 15:08
PROVIDERS: Emergency Provider Emergency Medicine; Family Provider Family Medicine; PCP Family Medicine
DX: R07.89 Other chest pain (principal); F45.8 Other somatoform disorders; I10 Essential (primary) hypertension; E78.00 Pure hypercholesterolemia, unspecified; E11.43 Type 2 diabetes mellitus with diabetic autonomic (poly)neuropathy; K31.84 Gastroparesis; K21.9 Gastro-esophageal reflux disease without esophagitis; J45.909 Unspecified asthma, uncomplicated; F32.9 Major depressive disorder, single episode, unspecified; G90.522 Complex regional pain syndrome I of left lower limb; E66.9 Obesity, unspecified; Z79.84 Long term (current) use of oral hypoglycemic drugs; Z79.899 Other long term (current) drug therapy
CPT/HCPCS: 36415; 36600; 71045; 80048; 82803; 82962; 84484; 85025; 93005; 96374; 96375; 99285; A4216; J2405

== ENCOUNTER → 2019-05-13 13:33 | Outpatient (CLI) | payer MEDICAID, SELFPAY ==
[2019-05-04 11:32] VITALS: BMI 28.4
[2019-05-09 14:41] VITALS: BMI 28.4
--- NOTE | 2019-05-13 13:34 | ECHOD_ITS ---
Reason For Study: CHEST PAIN, NEAR SYNCOPE, SOB Procedure This was a 2D Doppler, Color Flow transthoracic echocardiogram. Exam performed in department. Left Ventricle Normal size and thickness. The estimated ejection fraction is 65 %. Stage 1 diastolic dysfunction. No regional wall motion abnormalities noted. Right Ventricle Normal size and thickness. A moderator band is seen in the right ventricle. Normal systolic function. Atria Normal left atrium. Normal right atrium. Normal atrial septum. Mitral Valve The mitral valve is structurally normal. No prolapse or stenosis seen. Tricuspid Valve Normal tricuspid valve. Unable to estimate RV systolic pressure due to insufficient tricuspid regurgitant envelope. Aortic Valve Normal aortic valve. Trisinus/trileaflet aortic valve. Pulmonic Valve Normal pulmonic valve. Great Vessels Normal aortic root. Normal arch. Normal inferior vena cava. Inferior vena cava collapse with sniff. Pericardium/Pleural No pericardial effusion. MMode/2D Measurements & Calculations LVIDd: 3.9 cm IVSd: 1.1 cm Ao root diam: 2.8 cm LVIDs: 2.4 cm LVPWd: 1.1 cm RVDd: 2.8 cm FS: 39.4 % LAV(MOD-bp): 36.1 ml LA A4 area: 14.0 cm2 LA dimension(2D): 4.0 cm LAV(MOD-bp) Indexed: 18.1 ml/m2 LAV(MOD-sp2): 34.5 ml LAV(MOD-sp4): 32.2 ml RA A4 area: 10.2 cm2 Time Measurements MV dec time: 0.13 sec Doppler Measurements & Calculations MV E max jordan: 77.1 cm/sec Lat Peak E' Jordan: 11.4 cm/sec Med Peak E' Jordan: 8.8 cm/sec MV A max jordan: 94.1 cm/sec E/E' lat: 6.8 E/E' med: 8.7 MV E/A: 0.82 Ao V2 max: 151.2 cm/sec LV V1 max: 141.8 cm/sec PA V2 max: 156.2 cm/sec Ao max P.2 mmHg LV V1 max P.0 mmHg Interpretation Summary The estimated ejection fraction is 65 %. Stage 1 diastolic dysfunction. Unable to estimate RV systolic pressure due to insufficient tricuspid regurgitant envelope. Compared to echo report dated 08/20/2017, no appreciable changes noted. Ordering Physician: Roe Mckay Referring Physician: Karl Pichardo Performed By: Cierra Gates RDCS, RVT
== END ==
PROVIDERS: Family Provider Family Medicine; PCP Family Medicine; Referring Provider Internal Medicine Cardiovascular Disease; Visit Provider Internal Medicine Cardiovascular Disease
DX: R07.9 Chest pain, unspecified (principal); R06.02 Shortness of breath; I95.1 Orthostatic hypotension; I10 Essential (primary) hypertension; E78.5 Hyperlipidemia, unspecified; E11.9 Type 2 diabetes mellitus without complications
CPT/HCPCS: 93306

== ENCOUNTER → 2019-06-01 09:16 | Outpatient (CLI) | payer MEDICAID, SELFPAY ==
[2019-05-04 11:32] VITALS: BMI 28.4
[2019-05-09 14:41] VITALS: BMI 28.4
--- NOTE | 2019-06-01 09:18 | STEWCON_ITS ---
Reason For Study: Chest Pain Stress Results Protocol: Moises Protocol Maximum Predicted HR: 167 bpm Target HR: 142 bpm % Maximum Predicted HR: 90 % DurationHeart Rate Stage (mm:ss) (bpm) BP Comment Baseline 100 130/92No Chest Pain; 3 ML Diluted Definity Given Moises Protocol Stage I 3:00 131 132/84No Chest Pain Moises Protocol Stage II 3:00 151 140/82No Chest Pain; Mild Dyspnea; Phan Leg Discomfort Recovery 98 138/90No Chest Pain Stress Duration: 6:00 mm:ss Maximum Stress HR: 151 bpm METS: 7 Baseline Echocardiogram Findings The estimated ejection fraction is 65 %. Stress Echo Wall motion Data Resting WM Intermediate WM Stress WM Resting Wall Motion Wall Motion Stress No regional wall motion No regional wall motion abnormalities noted. abnormalities noted. EKG Data The baseline ECG displays normal sinus rhythm. The patient exercised according to the regular Moises protocol for a total duration of 6:00. The maximum heart rate attained was 160 beats per minute. This was 95% of maximum predicted heart rate. The patient exercised into stage 3 of the Moises protocol. During stress, there were no ST or T wave changes noted to suggest ischemia. Interpretation Summary The estimated ejection fraction is 65 %. Normal, adequate, treadmill echocardiogram. Negative for ischemia by EKG and echocardiographic criteria. No anginal symptoms noted. No arrhythmias noted. Appropriate blood pressure response to exercise. Below average exercise capacity for age. Test terminated due to leg discomfort and target heart rate achieved. Final LVEF is 75%. Decreased sensitivity due to poor echo windows requiring Definity agent. No complications. The study was technically difficult. Contrast injection was performed. Ordering Physician: Narciso Hammer Referring Physician: Karl Pichardo Performed By: Cierra Gates, OLGA, RVT
== END ==
PROVIDERS: Family Provider Family Medicine; PCP Family Medicine; Referring Provider Internal Medicine Cardiovascular Disease; Visit Provider Internal Medicine Cardiovascular Disease
DX: R07.9 Chest pain, unspecified (principal); R60.9 Edema, unspecified; R06.09 Other forms of dyspnea; I95.1 Orthostatic hypotension; I10 Essential (primary) hypertension; E78.5 Hyperlipidemia, unspecified; E11.9 Type 2 diabetes mellitus without complications
CPT/HCPCS: 93017; 93350; Q9957; A4216; C8928

== ENCOUNTER → 2019-06-29 08:14 | Outpatient (CLI) | payer MEDICAID, SELFPAY ==
[2019-06-29 09:18] LABS: AST(SGOT) 90 U/L (15-37); Alanine Aminotransfer ALT/SGPT 69 U/L (13-56); Albumin, Serum 3.2 g/dL (3.2-5.0); Alkaline Phosphatase 119 U/L (45-117); Bilirubin, Direct 0.13 mg/dL (0.00-0.30); Cholesterol 180 mg/dL (200); Globulin 3.9 g/dL (2.2-4.2); High Density Lipoprotein 69 mg/dL; Protein, Total 7.1 g/dL (6.4-8.2); Triglycerides 318 mg/dL; Very Low Density Lipoprotein 64 mg/dL (5-40)
== END ==
PROVIDERS: Family Provider Family Medicine; PCP Family Medicine; Referring Provider Nurse Practitioner Family; Visit Provider Nurse Practitioner Family
DX: E78.5 Hyperlipidemia, unspecified (principal)
CPT/HCPCS: 36415; 80061; 80076

== ENCOUNTER 2019-08-19 16:35 | Observation (INO) | payer MEDICAID, SELFPAY ==
[2019-08-19] VITALS (13 sets, daily range): BP systolic 123–153; BP diastolic 74–99; PULSE 86–99; RESP 12–20; TEMP 36.7; O2SAT 96–99; BMI 28.7; BMI 28.6
--- NOTE | 2019-08-19 17:27 | EKG12_ITS ---
Test Reason : Blood Pressure : / mmHG Vent. Rate : 092 BPM Atrial Rate : 092 BPM P-R Int : 136 ms QRS Dur : 076 ms QT Int : 368 ms P-R-T Axes : 027 016 013 degrees QTc Int : 455 ms Normal sinus rhythm Normal ECG Confirmed by EVA MURILLO, BRADEN ([id number]), editorial assistant CITLALLI BUSTOS ([id number]) on 08/23/2019 12:17:40 PM Referred By: Karl Pichardo Confirmed By:BRADEN VELASQUEZ MD
--- NOTE | 2019-08-19 17:27 | CT_ITS ---
STUDY: CT BRAIN WITHOUT CONTRAST REASON FOR EXAM: Female, [address] head April 17, 2018 RADIATION DOSAGE (If Supplied By Facility): DLP = ( 829.85 ) mGycm TECHNIQUE: Transaxial CT imaging of the brain was performed without administration of intravenous contrast material. Individualized dose optimization techniques were used for this CT. COMPARISON: None. FINDINGS: There is no acute bleed or infarct. There are normal white matter tracts. The ventricles are normal in configuration. There is no hydrocephalus. The visualized paranasal sinuses are clear. The mastoid air cells are well aerated. There is no skull fracture. CT/Brain/Head without Contrast IMPRESSION: No acute intracranial abnormality. Electronically Signed: Franco Menendez, at 18:39 EST Tel , Service support ,
--- NOTE | 2019-08-19 17:47 | RAD_ITS ---
STUDY: X-RAY CHEST REASON FOR EXAM: Female, 54 years old. Chest pain TECHNIQUE: Frontal view of the chest COMPARISON: Headache FINDINGS: The lungs are clear. There are no pleural effusions. There is no pneumothorax. The heart is normal in size. The visualized osseous structures are within normal limits. RAD/Chest 1 View IMPRESSION: No acute thoracic pathology. Electronically Signed: Franco Menendez, at 18:34 EST Tel , Service support ,
[2019-08-19 17:54] LABS: Absolute Lymphocyte Count 1.92 X10^3/uL (0.83-4.51); Absolute Neutrophil Count 5.3 X10^3/uL (2.0-7.7); Basophil# 0.06 X10^3/uL; Basophil% 0.7 % (0-1); Eosinophil# 0.28 X10^3/uL; Eosinophils% 3.4 % (0-5); Hemoglobin 11.1 g/dL (12.0-15.0); Lymphocyte # 1.92 X10^3/ul (4.0); Lymphocyte % 23.6 % (19-41); Mean Corp Hgb Conc 32.6 g/dL (32-36); Mean Corpuscular Hgb 31.5 pg (27.0-32.0); Mean Corpuscular Volume 96.6 fL (81-99); Mean Platelet Vol. 9.1 fl (6.2-12.0); Monocyte# 0.57 X10^3/uL; NRBC Flagged by Analyzer 0 % (0-5); Neutrophil % 65.1 % (47-70); Platelet Count 299 K/mm3 (150-450); RBC Distribution Width SD 42.5 fl (35.1-43.9); Red Blood Count 3.52 M/mm3 (4.2-5.4); White Blood Count 8.2 K/mm3 (4.4-11.0)
[2019-08-19 17:56] LABS: Bedside Glucose 162 mg/dL (70-110)
[2019-08-19 18:02] LABS: International Normalized Ratio 0.9; Prothrombin Time (Protime)PT. 12.2 SECONDS (11.7-14.9)
[2019-08-19 18:03] LABS: Partial Thromboplast Time 25.4 Seconds (24.1-36.2)
[2019-08-19 18:25] LABS: ALB/GLOB Ratio 0.8 RATIO (0.9-2.4); AST(SGOT) 74 U/L (15-37); Alanine Aminotransfer ALT/SGPT 45 U/L (13-56); Albumin, Serum 2.6 g/dL (3.2-5.0); Alkaline Phosphatase 77 U/L (45-117); Anion Gap 3 (5-15); BUN 13 mg/dL (7-18); BUN/Creat Ratio 15.8 RATIO (10-20); Calcium,Total 8.3 mg/dL (8.5-10.1); Chloride 109 mmol/L (98-107); Creatinine, Serum 0.82 mg/dL (0.55-1.02); EST Glomerular Filtration Rate 77 mL/min (>60); Est Glom Filt Rate - Afr Amer 93 mL/min (>60); Estimated Creatinine Clearance 80.04 ml/min; Globulin 3.3 g/dL (2.2-4.2); Glucose 155 mg/dL (74-106); Potassium 3.7 mmol/L (3.5-5.1); Protein, Total 5.9 g/dL (6.4-8.2); Sodium Level 139 mmol/L (136-145)
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
--- NOTE | 2019-08-19 19:51 | ED.VISSUMM ---
- ER Visit Summary Date of Service: 08/19/19 Chief Complaint: Multiple complaints History of Present Illness: The patient is a 54 F with multiple complaints that started yesterday. She was recently diagnosed with H. pylori and treated with Flagyl and tetracycline starting 3 days ago. She felt good for the first 2 days and then her symptoms started last night. She had blurry vision with visual cuts in her left lower quadrants, both eyes, worse on the left. Dark urine and her eyes feel swollen. She said she had some dark stools but was advised that was expected because of the meds she is taking. Denies blood thinners. Physical Examination: Afebrile and vital signs unremarkable. Alert and oriented. No acute distress. HEENT exam unremarkable. No swelling or redness noted. No rash noted. Cranial nerves grossly intact. Normal strength and sensation. Normal cerebellar testing. Test Results: EKG, CBC, BMP, coags, troponin unremarkable. Chest x-ray is normal and CT brain unremarkable. Emergency Department Course and Treatment: Patient was concern for allergic reaction. I do not believe this is an allergic reaction. I do not believe this is a side effect from her medication. Her urine is unremarkable. Liver function is normal. Kidney function normal. However, I cannot explain her visual cuts. She is having intermittent visual cuts repeatedly in the left lower quadrant of both eyes, worse on the left. This could be an atypical presentation for stroke or TIA. I contacted the hospitalist. Treatment Plan: As above Disposition: Admission Impression: 1. Visual cuts This note was generated with [employer] dictation software. It may contain incorrect words, spelling, and punctuation that were not noted in review of the chart prior to signing ED Disposition - Plan for ED Patient: Referrals: Karl Pichardo MD [Primary Care Provider] -
[2019-08-19 21:13] LABS: Magnesium 1.5 mg/dL (1.6-2.6); Thyroid Stim Hormone (TSH) 1.79 uIU/mL (0.358-3.74)
[2019-08-19] MEDS: 0.9% Normal Saline 1,000 ML 100 ML IV (22:18)
[2019-08-19] MEDS: Pantoprazole Sodium 20 MG Tablet PO (22:21)
[2019-08-19] MEDS: MELATONIN 3 MG TABLET PO (22:28)
[2019-08-19 22:46] LABS: Bedside Glucose 169 mg/dL (70-110)
[2019-08-19 23:15] LABS: Hemoglobin A1c 6.7 % (4.2-6.3)
[2019-08-19 23:56] LABS: Amphetamine Urine VISTA NEGATIVE (<1000 ng/mL); Barbiturate Urine VISTA NEGATIVE (< 200 ng/mL); Benzodiazepine Urine VISTA NEGATIVE (< 200 ng/mL); Cocaine Urine VISTA NEGATIVE (< 300 ng/mL); Ecstacy Urine VISTA NEGATIVE (< 500 ng/mL); Methadone Urine VISTA NEGATIVE (< 300 ng/mL); PCP Urine VISTA NEGATIVE (< 25 ng/mL); THC Urine VISTA NEGATIVE (< 50 ng/mL); Vista UDS pH Range 6
[2019-08-20] VITALS (11 sets, daily range): BP systolic 103–154; BP diastolic 64–90; PULSE 80–116; RESP 16–18; TEMP 36.4–36.7; O2SAT 95–100; BMI 28.6
--- NOTE | 2019-08-20 00:26 | ECHOD_ITS ---
Reason For Study: TIA/CVA Procedure This was a 2D Doppler, Color Flow transthoracic echocardiogram. The exam was of adequate technical quality. Exam performed portable in patient room. Left Ventricle Normal LV size. Left ventricular systolic function is normal. The estimated ejection fraction is 65 %. Transmitral doppler flow suggestive of impaired relaxation of left ventricle. No regional wall motion abnormalities noted. Right Ventricle Normal RV size. Normal systolic function. Atria Borderline enlarged left atrium. Normal right atrium. No doppler evidence for ASD. Mitral Valve There is no mitral annular calcification. Normal mitral valve. Trivial mitral valve insufficiency. Tricuspid Valve Normal tricuspid valve. Trivial tricuspid valve insufficiency. Aortic Valve Trisinus/trileaflet aortic valve. Mild focal aortic valve calcification. Pulmonic Valve The pulmonic valve is not well visualized. Trivial pulmonic valve insufficiency. Great Vessels Normal sized aortic root. Pericardium/Pleural No pericardial effusion. MMode/2D Measurements & Calculations LVIDd: 4.5 cm IVSd: 1.3 cm Ao root diam: 2.5 cm LVIDs: 2.9 cm LVPWd: 1.1 cm RVDd: 2.4 cm FS: 35.9 % LAV(MOD-bp): 41.8 ml LA A4 area: 16.3 cm2 LA dimension(2D): 4.2 cm LAV(MOD-bp) Indexed: 21.0 ml/m2 LAV(MOD-sp2): 37.7 ml LAV(MOD-sp4): 42.4 ml RA A4 area: 11.3 cm2 Time Measurements MV dec time: 0.15 sec Doppler Measurements & Calculations MV E max jordan: 73.7 cm/sec Lat Peak E' Jordan: 10.3 cm/sec Med Peak E' Jordan: 8.7 cm/sec MV A max jordan: 82.0 cm/sec E/E' lat: 7.1 E/E' med: 8.5 MV E/A: 0.90 Ao V2 max: 130.2 cm/sec LV V1 max: 98.9 cm/sec PA V2 max: 123.4 cm/sec Ao max P.8 mmHg LV V1 max P.9 mmHg Interpretation Summary Left ventricular systolic function is normal. The estimated ejection fraction is 65 %. Borderline enlarged left atrium. Trivial mitral valve insufficiency. Trivial tricuspid valve insufficiency. Mild focal aortic valve calcification. Trivial pulmonic valve insufficiency. Transmitral doppler flow suggestive of impaired relaxation of left ventricle Ordering Physician: Maria Victoria Lin Referring Physician: Karl Pichardo Performed By: Cierra Gates, OLGA, RVT
[2019-08-20 00:56] LABS: Phosphorus 2.6 mg/dL (2.5-4.9)
[2019-08-20] MEDS: Acetaminophen 325 MG Tablet 650 MG PO (05:05)
[2019-08-20 06:28] LABS: Absolute Lymphocyte Count 1.87 X10^3/uL (0.83-4.51); Absolute Neutrophil Count 4.7 X10^3/uL (2.0-7.7); Basophil# 0.04 X10^3/uL; Basophil% 0.5 % (0-1); Eosinophil# 0.34 X10^3/uL; Eosinophils% 4.4 % (0-5); Hematocrit 31.2 % (37-47); Hemoglobin 9.9 g/dL (12.0-15.0); Lymphocyte # 1.87 X10^3/ul (4.0); Lymphocyte % 24.3 % (19-41); Mean Corp Hgb Conc 31.7 g/dL (32-36); Mean Corpuscular Hgb 30.6 pg (27.0-32.0); Mean Corpuscular Volume 96.3 fL (81-99); Mean Platelet Vol. 8.8 fl (6.2-12.0); Monocyte% 9.1 % (0-10); NRBC Flagged by Analyzer 0 % (0-5); Neutrophil # 4.72 X10^3/uL (2.7-7.7); Neutrophil % 61.3 % (47-70); Platelet Count 265 K/mm3 (150-450); RBC Distribution Width CV 12.2 % (11.6-14.6); RBC Distribution Width SD 42.8 fl (35.1-43.9); Red Blood Count 3.24 M/mm3 (4.2-5.4); White Blood Count 7.7 K/mm3 (4.4-11.0)
[2019-08-20 06:45] LABS: Bedside Glucose 141 mg/dL (70-110)
[2019-08-20 06:54] LABS: Anion Gap 4 (5-15); BUN 12 mg/dL (7-18); BUN/Creat Ratio 21.1 RATIO (10-20); Chloride 108 mmol/L (98-107); Cholesterol 128 mg/dL (200); Creatinine, Serum 0.57 mg/dL (0.55-1.02); EST Glomerular Filtration Rate 118 mL/min (>60); Est Glom Filt Rate - Afr Amer 143 mL/min (>60); Estimated Creatinine Clearance 115.14 ml/min; Glucose 147 mg/dL (74-106); High Density Lipoprotein 49 mg/dL; Potassium 3.8 mmol/L (3.5-5.1); Sodium Level 139 mmol/L (136-145); Triglycerides 169 mg/dL; Very Low Density Lipoprotein 34 mg/dL (5-40)
[2019-08-20] MEDS: LORazepam 2 MG/ML Syringe 1 MG IV (08:35)
[2019-08-20] MEDS: Aspirin 81 MG TAB.CHEW PO (10:53)
[2019-08-20] MEDS: Folic Acid 1 MG Tablet PO (10:54)
[2019-08-20] MEDS: Multivitamins,Ther W-Minerals Tablet 1 TABLET PO (10:54)
[2019-08-20] MEDS: Thiamine Hydrochloride 100 MG Tablet PO (10:54)
[2019-08-20] MEDS: Pantoprazole Sodium 20 MG Tablet PO (10:55)
[2019-08-20] MEDS: Ezetimibe 10 MG Tablet PO (10:55)
[2019-08-20] MEDS: Loratadine 10 MG Tablet PO (10:55)
[2019-08-20] MEDS: DULoxetine Hcl 60 MG Capsule PO (10:55)
[2019-08-20] MEDS: 0.9% Saline Lock 10 ML Syringe IV (10:56)
[2019-08-20] MEDS: Enoxaparin 40 MG/0.4 ML Syringe SC (10:58)
[2019-08-20] MEDS: Insulin Lispro 100 UNIT/ML INSULN.PEN SC (11:50)
--- NOTE | 2019-08-20 12:20 | CASEMGMT ---
RN CM Assessment Presentation: TIA, HTN Intro role of CM and purpose of RN CM assessment to patient, Pt is awake, alert and able to participate in assessment. Demographics, PCP and Pharmacy verified. Pt states she is on [employer] due to divorce and income. 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 PCP: Dr. Karl Villarreal Specialists: Dr. Chan, [facility]. Pt states she has had to change physicians after going on [employer] insurance due to [employer] issues. Preferred Pharmacy: [facility]- states some medications are not covered under [employer] and her physicians have had to change. Insurance: [employer] Prescription Benefit: yes. Pt states some LNOK: Stanislav De La Torre, ex Living Arrangements: Lives in Mobile Home, 5 steps into home. Pt has history of falls. Discussed placing grab bars in shower and medical alert button for safety. Pt states she or her boyfriend would be able to do this. Is independent with ADL's, however some limitation from R shoulder which has hx of injury and surgery. Transportation: drives DME: none. HHC/SNF: none SW Referral: no Patient DC goals: home DC PLAN: home. Mindy PATEL RN ACM
[2019-08-20 12:25] LABS: Bedside Glucose 199 mg/dL (70-110)
--- NOTE | 2019-08-20 12:25 | CASEMGMT ---
PHQ-9 not completed as pt did not have TIA or CVA. MARYCARMEN Bailon
[2019-08-20] MEDS: 0.9% Normal Saline 1,000 ML 100 ML IV (12:35)
--- NOTE | 2019-08-20 14:30 | PN_ITS ---
Patient Problems: Active and Suspected Problems (Last Updated 05/24/19 @ 17:59 by Mariya Vale) TIA (transient ischemic attack) (Acute) Subjective: Patient seen and examined. Reports continued left facial mild sensory changes and left peripheral visual fogginess. Reports dark stools. Denies further neurologic symptoms or focal deficits. - Physical Exam Vitals/I&O's: Vital Signs Temp Pulse Resp BP Pulse Ox 98.1 F 87 16 120/79 98 08/20/19 12:25 08/20/19 12:25 08/20/19 12:25 08/20/19 12:25 08/20/19 12:25 Oxygen Delivery Method Room Air Weight: 188 lb 7.924 oz Body Mass Index (BMI) 28.6 Finger Stick Blood Glucose 162 Intake and Output for Last 24 Hours 08/18/19 08/19/19 08/20/19 23:59 23:59 23:59 Intake Total 355.00 / 355.00 1389.00 / 1389.00 Balance 355.00 / 355.00 1389.00 / 1389.00 General: Alert, Oriented x3, Cooperative HEENT: Atraumatic, PERRLA, EOMI, Normocephalic Neck: Supple, No JVD, Negative Carotid Bruits Lungs: Clear to auscultation, Normal air movement Cardiovascular: Regular rate, Regular Rhythm, Normal S1, Normal S2, No murmurs Abdomen: Bowel Sounds Present, Soft, Non Tender, Non-Distended Extremities: No clubbing, No cyanosis, No edema, Capillary Refill Less than 3 Seconds Skin: No rashes, No breakdown Musculoskeletal: No Tenderness to Palpation of Joints or Extremities Neurological: Cranial nerves II-XII grossly intact, Neuro grossly intact Psych/Mental Status: Normal Affect, Appropriate Microbiology Past 72 Hours 08/20/19 13:14 Stool Stool Occult Blood (TR) - Final Occult Blood Positive Laboratory Results 08/19/19 17:35: Sodium 139, Potassium 3.7, Chloride 109 H, Carbon Dioxide 27.0, Anion Gap 3 L, BUN 13, Creatinine 0.82, Estim Creat Clear Calc 80.04, Est GFR (MDRD) Af Amer 93, Est GFR (MDRD) Non-Af 77, BUN/Creatinine Ratio 15.8, Glucose 155 H, Calcium 8.3 L, Total Bilirubin 0.20, AST 74 H, ALT 45, Alkaline Phosphatase 77, Troponin I < 0.015, Total Protein 5.9 L, Albumin 2.6 L, Globulin 3.3, Albumin/Globulin Ratio 0.8 L 08/19/19 17:35: WBC 8.2, RBC 3.52 L, Hgb 11.1 L, Hct 34.0 L, MCV 96.6, MCH 31.5, MCHC 32.6, RDW Std Deviation 42.5, RDW Coeff of Daiana 12.0, Plt Count 299, MPV 9.1, Immature Gran % (Auto) 0.200, Neut % (Auto) 65.1, Lymph % (Auto) 23.6, [place] % (Auto) 7.0, Eos % (Auto) 3.4, Baso % (Auto) 0.7, Absolute Neuts (auto) 5.3, Absolute Lymphs (auto) 1.92, Nucleated RBC % 0 08/19/19 17:35: PT 12.2, INR 0.9, APTT 25.4 08/19/19 17:35: Magnesium 1.5 L, TSH 1.79 08/19/19 17:35: Hemoglobin A1c 6.7 H 08/19/19 17:35: Phosphorus 2.6 08/19/19 17:48: POC Glucose 162 H 08/19/19 22:28: POC Glucose 169 H 08/19/19 23:20: Urine Opiates Screen NEGATIVE, Urine Methadone Screen NEGATIVE, Ur Barbiturates Screen NEGATIVE, Ur Phencyclidine Scrn NEGATIVE, Ur Amphetamines Screen NEGATIVE, U Methamphetamin-MDMA NEGATIVE, U Benzodiazepines Scrn NEGATIVE, Urine Cocaine Screen NEGATIVE, U Cannabinoids Screen NEGATIVE, Ur Drug Screen Comment 08/20/19 06:05: WBC 7.7, RBC 3.24 L, Hgb 9.9 L, Hct 31.2 L, MCV 96.3, MCH 30.6, MCHC 31.7 L, RDW Std Deviation 42.8, RDW Coeff of [place] 12.2, Plt Count 265, MPV 8.8, Immature Gran % (Auto) 0.400, Neut % (Auto) 61.3, Lymph % (Auto) 24.3, [place] % (Auto) 9.1, Eos % (Auto) 4.4, Baso % (Auto) 0.5, Absolute Neuts (auto) 4.7, Absolute Lymphs (auto) 1.87, Nucleated RBC % 0 08/20/19 06:05: Sodium 139, Potassium 3.8, Chloride 108 H, Carbon Dioxide 27.0, Anion Gap 4 L, BUN 12, Creatinine 0.57, Estim Creat Clear Calc 115.14, Est GFR (MDRD) Af Amer 143, Est GFR (MDRD) Non-Af 118, BUN/Creatinine Ratio 21.1 H, Glucose 147 H, Calcium 8.0 L, Triglycerides 169, Cholesterol 128, LDL Cholesterol 45, VLDL Cholesterol 34, HDL Cholesterol 49 08/20/19 06:41: POC Glucose 141 H 08/20/19 11:45: POC Glucose 199 H Current Medications Acetaminophen (Tylenol) 650 mg PO Q6H PRN PRN PRN Reason: Pain Score 1-10/Temp > 100.7 F Last Admin: 08/20/19 05:05 Dose: 650 mg Documented by: Al Hydroxide/Mg Hydroxide (Mylanta Ii) 30 ml PO Q6H PRN PRN PRN Reason: Gastric Burning Albuterol Sulfate (Ventolin Aerosols) 2.5 mg INHALATION Q2H PRN PRN PRN Reason: SOB/Wheezing Duloxetine HCl (Cymbalta) 60 mg PO BID [facility] Stop: 08/20/19 16:00 Last Admin: 08/20/19 10:55 Dose: 60 mg Documented by: Duloxetine HCl (Cymbalta) 120 mg PO DAILY [facility] Ezetimibe (Zetia) 10 mg PO DAILY [facility] Last Admin: 08/20/19 10:55 Dose: 10 mg Documented by: Enoxaparin Sodium (Lovenox) 40 mg SC DAILY [facility] Last Admin: 08/20/19 10:58 Dose: 40 mg Documented by: Folic Acid (Folic Acid) 1 mg PO DAILY@0800 [facility] Stop: 08/22/19 08:01 Last Admin: 08/20/19 10:54 Dose: 1 mg Documented by: Glucagon () 1 mg IM .X1 PRN PRN Reason: Hypoglycemia Guaifenesin (Robitussin) 20 ml PO Q4H PRN PRN PRN Reason: COUGH Hydralazine HCl (Apresoline Iv) 5 mg IV Q30M PRN PRN Reason: sbp > 220/120 Sodium Chloride () 1,000 mls @ 100 mls/hr IV .Q10H [facility] Last Admin: 08/20/19 12:35 Dose: 100 mls/hr Documented by: Sodium Chloride () 250 mls @ 15 mls/hr IV .[id number] PRN PRN Reason: Saline Flush Sodium Chloride () 250 mls @ 15 mls/hr IV .[id number] PRN PRN Reason: Additional IVPB Infusion Dextrose (Dextrose 10%-Water) 250 mls @ 999 mls/hr IV .Q16M PRN; Protocol PRN Reason: HYPOGLYCEMIA Insulin Human Lispro (Humalog Kwikpen (Bkc)) 0 unit SC ACHS [facility]; Protocol Last Admin: 08/20/19 11:50 Dose: 2 units Documented by: Loratadine (Claritin) 10 mg PO DAILY [facility] Last Admin: 08/20/19 10:55 Dose: 10 mg Documented by: Lorazepam (Ativan) 1 mg PO TID PRN PRN PRN Reason: ANXIETY Lorazepam (Ativan) 1 mg IV X1 PRN PRN Reason: premed MRI/clautstrophobic Last Admin: 08/20/19 08:35 Dose: 1 mg Documented by: Magnesium Hydroxide (Milk Of Magnesia) 30 ml PO DAILY PRN PRN PRN Reason: Constipation Melatonin (Melatonin) 3 mg PO QHS PRN PRN PRN Reason: INSOMNIA Last Admin: 08/19/19 22:28 Dose: 3 mg Documented by: Multivitamins/Minerals (Multivitamin With Minerals) 1 tablet PO DAILYCM [facility] Last Admin: 08/20/19 10:54 Dose: 1 tablet Documented by: Nutritional Formula (Lactose Free) (Glucerna Shake) 120 ml PO 4X/DAY [facility] Last Admin: 08/20/19 11:42 Dose: Not Given Documented by: Ondansetron HCl (Zofran) 4 mg IV Q8H PRN PRN PRN Reason: NAUSEA/VOMITING Pantoprazole Sodium (Protonix) 20 mg PO BID [facility] Last Admin: 08/20/19 10:55 Dose: 20 mg Documented by: Prochlorperazine Edisylate (Compazine Iv) 5 mg IV Q4H PRN PRN PRN Reason: Breakthrough Nausea/Vomiting Sodium Chloride () 10 - 40 ml IV UD PRN PRN Reason: SALINE FLUSH Last Admin: 08/20/19 10:56 Dose: 10 ml Documented by: Thiamine HCl (Vitamin B1) 100 mg PO BIDCM [facility] Stop: 08/22/19 17:01 Last Admin: 08/20/19 10:54 Dose: 100 mg Documented by: Throat Lozenges (Cepacol Sore Throat Lozenge) 1 lozenge MUCOUS MEM Q2H PRN PRN PRN Reason: Sore Throat/Cough Medical Necessity - Tobacco Use Smoking Status: Never smoker Tobacco Use: Non-smoker Assessment/Plan All Active Problems (Last Updated 05/24/19 @ 17:59 by Mariya Vale) TIA (transient ischemic attack) (Acute) Statin intolerance (Acute) Dyspnea on exertion (Acute) Chest pain (Acute) Near syncope (Acute) Orthostatic hypotension (Acute) Gastroparesis due to secondary diabetes (Acute) Nausea & vomiting (Acute) Strain of unspecified muscle, fascia and tendon at shoulder and upper arm level, right arm, initial encounter (Acute) Screening for colon cancer (Acute) 1. Left eye vision changes, left facial paresthesias-CVA ruled out. MRI of brain, MRA of head and neck unremarkable. Echocardiogram with EF 65%. Patient will need ophthalmology evaluation immediately upon discharge. 2. Acute on chronic anemia with occult blood positive stools- Trend CBC. Continue PPI. If hemoglobin in a.m. remained stable, will refer for outpatient scope. 3. Recent EGD with positive H. pylori biopsy 08/10/2019-placed on tetracycline, Flagyl, Pepto-Bismol and omeprazole at that time. Patient reports symptoms related to #1 have evolved since beginning these medications. 4. Type 2 diabetes mellitus-hemoglobin A1c 6.7%. Accu-Cheks ACHS with SSI. 5. Hypertension-stable, continue lisinopril regimen. 6. Hyperlipidemia-not on statin. 7. Chronic asthma-PRN albuterol aerosol. 8. Anxiety/Depression-continue Cymbalta, Ativan regimen. 9. Daily EtOH use-encourage significant reduction or cessation. DVT prophylaxis-Lovenox sc This patient was seen by NADIA Aguilar under the supervision of Dr. Nunez.
--- NOTE | 2019-08-20 14:58 | DCINST_ITS ---
- Discharge Diagnoses Current Active Problems: Current Active and Chronic Problems (Last Updated 05/24/19 @ 17:59 by Mariya Vale) You will use the following diet at home:: No restrictions Discharge Activity: Return to Normal Activity Call your doctor if you observe: Shortness of breath, Dizziness, Fainting spells, Chest pain Additional Instructions: Recommend repeat CBC by primary care provider on Friday to reassess hemoglobin. Allergies/Adverse Reactions: Allergies adalimumab [From Humira] Allergy (Verified 08/19/19 16:39) Unknown amoxicillin trihydrate [From Augmentin] Allergy (Verified 08/19/19 16:39) Unknown codeine Allergy (Verified 08/19/19 16:39) Itching etanercept [From Enbrel] Allergy (Verified 08/19/19 16:39) Unknown leflunomide [From Arava] Allergy (Verified 08/19/19 16:39) Other metoprolol tartrate [From Lopressor] Allergy (Verified 08/19/19 16:39) Unknown morphine sulfate [From Embeda] Allergy (Verified 08/19/19 16:39) Unknown naltrexone HCl [From Embeda] Allergy (Verified 08/19/19 16:39) Unknown oxymorphone [Oxymorphone] Allergy (Verified 08/19/19 16:39) Unknown pioglitazone HCl [From Actos] Allergy (Verified 08/19/19 16:39) Other pneumococcal 23-valent polysacchari [From Pneumovax 23] Allergy (Verified 08/19/19 16:39) Unknown potassium clavulanate [From Augmentin] Allergy (Verified 08/19/19 16:39) Unknown Yfbrubj-Rdi-Zhr Reductase Inhibitor Allergy (Verified 08/19/19 16:39) Unknown telithromycin [From Ketek] Allergy (Verified 08/19/19 16:39) Unknown tramadol HCl [From Ultram] Allergy (Verified 08/19/19 16:39) Unknown Medications to take at Discharge Duloxetine Hcl [Cymbalta] 120 mg PO DAILY 11/30/13 Albuterol IH (ProAir) [Proair Hfa] 2 puff INHALATION Q4H PRN PRN 03/04/14 Omeprazole [Prilosec] 20 mg PO 4X/DAY 03/04/14 glimepiride 2 mg tablet 1 mg PO DAILY tab 05/03/19 lisinopril 20 mg-hydrochlorothiazide 25 mg tablet 1 tab PO DAILY tab 05/03/19 loratadine 10 mg tablet 10 mg PO DAILY PRN PRN 05/04/19 Lorazepam [Ativan] 1 mg PO TID PRN 05/09/19 Bismuth Subsalicylate [Pepto-Bismol] 262 mg PO 4X/DAY 08/19/19 Ezetimibe 10 mg PO DAILY 08/19/19 Ondansetron HCl 4 mg PO Q8H PRN PRN 08/19/19 Tetracycline HCl 500 mg PO [id number] 08/19/19 Ubidecarenone [Ultra Coq10] 75 mg PO DAILY 08/19/19 metroNIDAZOLE [Flagyl] 250 mg PO [id number] 08/19/19 Primary Care Physician: Karl Pichardo MD [Primary Care Provider] - Please follow up with your Primary Care Physician in: 3-5 days Test Results: Test results from this visit will be discussed in further detail at your follow- up appointment, if applicable. Please Follow Up With: Chloe Willett MD When: Call for appt next week Please Follow Up With: Ophthalmology When: Immediately following discharge, soonest available appointment Proposed Discharge Date: 08/20/19
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
--- NOTE | 2019-08-20 20:31 | MRI_ITS ---
STUDY: MRA OF THE HEAD WITHOUT CONTRAST REASON FOR EXAM: Female, 54 years old. CVA. Blurred vision, H/A, neck soreness TECHNIQUE: 3-D [id number] (TOF) imaging was performed with MIPs. The study was performed unenhanced. Motion artifact is present. COMPARISON: MRI of the brain dated August 20, 2019 FINDINGS: Normal bilateral petrous carotid arteries. Normal right cavernous carotid artery with a normal supraclinoid bifurcation. Normal left cavernous carotid artery with a normal supraclinoid bifurcation. Normal right A1 segments of the anterior cerebral artery. Normal left A1 segments of the anterior cerebral artery. There is non-visualization of the anterior communicating artery (ACOM). Normal bilateral A2 segments of the anterior cerebral arteries. Normal right M1 and M2 segments of the middle cerebral arteries, with a normal M1 bifurcation. Normal left M1 and M2 segments of the middle cerebral arteries, with a normal M1 bifurcation. Normal right posterior communicating artery (PCOM). Normal left posterior communicating artery (PCOM). Normal bilateral vertebral arteries. Normal basilar artery with a normal basilar bifurcation. The visualized bilateral superior cerebellar (SCA) arteries are normal. Normal bilateral P1, P2 and visualized P3 segments of the posterior cerebral arteries. There is no demonstrated aneurysm of the [place]. There is no major vessel occlusion or hemodynamically significant stenosis. MRI/MRA Head ONLY without Contrast IMPRESSION: 1. There is no demonstrated aneurysm of the [place]. There is no major vessel occlusion or hemodynamically significant stenosis. Electronically Signed: Ced Willams MD at 10:50 EST , Service support ,
--- NOTE | 2019-08-20 20:31 | MRI_ITS ---
STUDY: MRI BRAIN WITHOUT CONTRAST REASON FOR EXAM: Female, 54 years old. CVA. Blurred vision, H/A, neck soreness TECHNIQUE: Standardized multiplanar fat and water weighted pulse sequences were obtained. Motion artifact is present on several sequences. COMPARISON: Head CT dated August 19, 2019 FINDINGS: Normal size of the ventricles and extra-axial spaces for the patient''s age. There are a limited number of small white matter hyperintensities, distributed throughout the deep white matter tracts of the cerebral hemispheres, consistent with mild chronic white matter ischemic changes. There is no evidence for recent intracranial ischemia or other cause of cytotoxic edema on diffusion weighted imaging (DWI). Normal T2* images of the brain without demonstrated susceptibility artifact. There is no demonstrated hemosiderin stain. No demonstrated hydrocephalus. No midline shift seen. Normal bilateral basal ganglia. Normal thalami. There is no extra-axial fluid accumulation. Normal flow voids within the major intracranial circulation suggesting patency by spin echo criteria. Normal sella turcica, pituitary gland, infundibular stalk, optic chiasm and hypothalamus. Normal tectal plate and pineal gland. Normal midbrain, zulema and medulla. Normal cerebellum. Normal basal cisterns. Normal bilateral temporal bones. Normal bilateral internal auditory canals. No demonstrated orbital abnormality, within the constraints of a routine brain study. Normal visualized paranasal sinuses. Normal calvarium and skull base. Normal visualized soft tissue structures. Normal visualized upper cervical spine. MRI/Brain without Contrast IMPRESSION: Mild chronic ischemic changes of the brain, as described above. Electronically Signed: Ced Willams MD at 10:48 EST , Service support ,
--- NOTE | 2019-08-20 20:31 | MRI_ITS ---
STUDY: MRA NECK WITHOUT CONTRAST REASON FOR EXAM: Female, 54 years old. CVA. Blurred vision, H/A, neck soreness TECHNIQUE: Source images were obtained, MIPs were performed. The study was performed unenhanced. COMPARISON: MRI of the brain and MRA of the head dated August 20, 2019 FINDINGS: RIGHT CAROTID ARTERIES: Normal right common carotid artery (CCA). Normal right common carotid bulb. Normal origin of the right internal carotid (ICA) artery without a hemodynamically significant stenosis. Normal visualized cervical portion of the right internal carotid artery. Normal origin of the right external carotid artery (ECA). LEFT CAROTID ARTERIES: Normal left common carotid artery (CCA). Normal left common carotid bulb. Normal origin of the left internal carotid (ICA) artery without a hemodynamically significant stenosis. Normal visualized cervical portion of the left internal carotid artery. Normal origin of the left external carotid artery (ECA). VERTEBRAL ARTERIES: Normal antegrade flow within the bilateral vertebral artery without a hemodynamically significant stenosis. MRI/MRA Neck without Contrast IMPRESSION: Normal bilateral cervical carotid and vertebral arteries. Electronically Signed: Ced Willams MD at 10:51 EST , Service support ,
== END 2019-08-20 15:00 | disposition home or self-care (01) ==
LOC: ED 17:17 → PCU 20:08
PROVIDERS: Admitting Provider Family Medicine; Emergency Provider Emergency Medicine; PCP Family Medicine; Visit Provider Internal Medicine
DX: H53.8 Other visual disturbances (principal); R20.2 Paresthesia of skin; I10 Essential (primary) hypertension; E78.5 Hyperlipidemia, unspecified; J45.909 Unspecified asthma, uncomplicated; F41.9 Anxiety disorder, unspecified; F32.9 Major depressive disorder, single episode, unspecified; K21.9 Gastro-esophageal reflux disease without esophagitis; E11.43 Type 2 diabetes mellitus with diabetic autonomic (poly)neuropathy; K31.84 Gastroparesis; G90.50 Complex regional pain syndrome I, unspecified; Z79.899 Other long term (current) drug therapy; Z79.84 Long term (current) use of oral hypoglycemic drugs; R79.89 Other specified abnormal findings of blood chemistry; D64.9 Anemia, unspecified
CPT/HCPCS: 36415; 70450; 70544; 70547; 70551; 71045; 80048; 80053; 80061; 80307; 82274; 82962; 83036; 83735; 84100; 84443; 84484; 85025; 85610; 85730; 92610; 93005; 93306; 94762; 96361; 96372; 96374; 97162; 97166; 99218; 99251; 99285; J7030; A4216; G0378; G0463

== ENCOUNTER → 2019-08-24 11:10 | Outpatient (CLI) | payer MEDICAID, SELFPAY ==
[2019-08-20 13:21] VITALS: BMI 28.6
[2019-08-24 15:42] LABS: Absolute Lymphocyte Count 1.95 X10^3/uL (0.83-4.51); Absolute Neutrophil Count 4.8 X10^3/uL (2.0-7.7); Basophil# 0.05 X10^3/uL; Basophil% 0.6 % (0-1); Eosinophils% 3.9 % (0-5); Hematocrit 37.2 % (37-47); Hemoglobin 11.7 g/dL (12.0-15.0); Lymphocyte # 1.95 X10^3/ul (4.0); Lymphocyte % 25.2 % (19-41); Mean Corp Hgb Conc 31.5 g/dL (32-36); Mean Corpuscular Hgb 30.9 pg (27.0-32.0); Mean Corpuscular Volume 98.2 fL (81-99); Mean Platelet Vol. 9.1 fl (6.2-12.0); Monocyte# 0.61 X10^3/uL; Monocyte% 7.9 % (0-10); NRBC Flagged by Analyzer 0 % (0-5); Neutrophil # 4.81 X10^3/uL (2.7-7.7); Platelet Count 388 K/mm3 (150-450); RBC Distribution Width CV 12.6 % (11.6-14.6); RBC Distribution Width SD 45.5 fl (35.1-43.9); Red Blood Count 3.79 M/mm3 (4.2-5.4); White Blood Count 7.8 K/mm3 (4.4-11.0)
[2019-08-24 16:04] LABS: Anion Gap 5 (5-15); BUN 7 mg/dL (7-18); BUN/Creat Ratio 11.1 RATIO (10-20); Calcium,Total 8.9 mg/dL (8.5-10.1); Chloride 105 mmol/L (98-107); Creatinine, Serum 0.63 mg/dL (0.55-1.02); EST Glomerular Filtration Rate 105 mL/min (>60); Est Glom Filt Rate - Afr Amer 127 mL/min (>60); Ferritin 99 ng/mL (8-252); Glucose 187 mg/dL (74-106); Iron 88 ug/dL (50-170); Magnesium 1.8 mg/dL (1.6-2.6); Potassium 4.4 mmol/L (3.5-5.1); Sodium Level 138 mmol/L (136-145)
== END ==
PROVIDERS: PCP Family Medicine; Visit Provider Family Medicine
DX: D64.9 Anemia, unspecified (principal); K29.70 Gastritis, unspecified, without bleeding; E83.42 Hypomagnesemia
CPT/HCPCS: 36415; 80048; 82728; 83540; 83735; 85025

== ENCOUNTER 2019-12-09 13:23 | Emergency (ER) | payer MEDICAID, SELFPAY ==
[2019-08-20 13:21] VITALS: BMI 28.6
[2019-12-09 13:25] VITALS: BP 136/90; PULSE 107; RESP 14; TEMP 36.2; O2SAT 98; BMI 27.6
[2019-12-09] MEDS: DiphenhydrAMINE 50 MG/ML Syringe IV (13:37)
[2019-12-09] MEDS: MethylPREDNISolone 125 MG/2 ML Vial IV (13:37)
[2019-12-09] MEDS: Ondansetron 4 MG/2 ML Vial IV (13:38)
[2019-12-09] MEDS: 0.9% Normal Saline 1,000 ML 999 ML IV (13:41)
[2019-12-09] MEDS: Famotidine 200 MG/20 ML MDV 20 MG in 0.9% Normal Saline (Pres. free 8 ML 300 MG IV (13:43)
[2019-12-09 13:54] VITALS: BP 152/90; PULSE 102; RESP 23; O2SAT 97
--- NOTE | 2019-12-09 14:08 | ED.DCSUM_ITS ---
- ER Visit Summary Date of Service: 12/09/19 Chief Complaint: Allergic reaction History of Present Illness: The patient is a [address] Karl Pichardo. She reports that she was placed on Bactrim for urinary tract infection. She took first dose 1220 this afternoon. She began to feel like her ears were itching and she was short of breath. She took Benadryl without relief. Currently she reports that she does feel short of breath and feels like her tongue is swelling. States that her throat feels itchy. Physical Examination: Vitals: Stable. Afebrile. General: Well-nourished and well-developed. Head: Normocephalic atraumatic. HEENT: Mild angioedema of her tongue. Neck: Supple, no lymphadenopathy. No JVD. Nontender. Cardiovascular: Regular rate and rhythm. No murmurs. Respiratory: No respiratory distress. Clear to auscultation bilaterally. Abdominal: Soft, nontender, nondistended, normal bowel sounds. No guarding, rebound, or peritoneal signs. Back: Nontender. Extremities: Nontender, no edema. Skin: Normal color, no rash. Neurologic: Alert and oriented ?3. Cranial nerves II through XII are intact. Normal strength and sensation. Psych: Normal affect. Emergency Department Course and Treatment: Patient was given epi IM, Benadryl/Solu-Medrol/Pepcid/Zofran IV. She is resting more comfortably. Treatment Plan: Patient will be discharged with Zyrtec, 5-day burst of prednisone, Pepcid, and Keflex. The Keflex is to replace her Bactrim. She is instructed to never take a sulfa-based medication again. Return to the emergency department for any worsening symptoms. Disposition: To home in improved and stable condition. Impression: 1. Acute allergic reaction. This note was generated with [employer] dictation software. It may contain incorrect words, spelling, and punctuation that were not noted in review of the chart prior to signing ED Disposition - Plan for ED Patient: Instructions: ED General Allergic Reactions Prescriptions: Prednisone [Deltasone] 60 mg PO DAILY #15 tablet Cephalexin [Keflex] 500 mg PO Q12 #14 capsule Famotidine [Pepcid] 20 mg PO BID #28 tablet Cetirizine HCl [Zyrtec] 10 mg PO DAILY #14 capsule Referrals: Karl Pichardo MD [Primary Care Provider] - 1-2 Days if not improving
[2019-12-09 15:20] VITALS: BP 125/74; PULSE 111; RESP 25; O2SAT 99
[2019-12-09 15:42] VITALS: BP 130/86; PULSE 113; RESP 27; O2SAT 96
== END 2019-12-09 15:51 | disposition home or self-care (01) ==
PROVIDERS: Emergency Provider Emergency Medicine; PCP Family Medicine
DX: T78.40XA Allergy, unspecified, initial encounter (principal)
CPT/HCPCS: 96365; 96372; 96375; 99283; J7030; A4216; J2405; J3490

== ENCOUNTER 2020-01-06 18:40 | Emergency (ER) | payer MEDICAID, SELFPAY ==
[2020-01-04 10:19] VITALS: BMI 27.0
[2020-01-06 18:40] VITALS: BP 180/107; PULSE 97; RESP 16; TEMP 35.9; O2SAT 100; BMI 26.4
--- NOTE | 2020-01-06 18:50 | EKG12_ITS ---
Test Reason : CP Blood Pressure : / mmHG Vent. Rate : 089 BPM Atrial Rate : 089 BPM P-R Int : 132 ms QRS Dur : 076 ms QT Int : 358 ms P-R-T Axes : 025 017 014 degrees QTc Int : 435 ms Normal sinus rhythm Normal ECG Confirmed by DARIUSZ MURILLO, FELICIA ([id number]), primer expeditor and drier TRISTON ENCARNACION ([id number]) on 01/10/2020 1:36:47 PM Referred By: DAMIAN Confirmed By:FELICIA ARZOLA MD
--- NOTE | 2020-01-06 18:51 | US_ITS ---
STUDY: VENOUS DOPPLER ULTRASOUND - LEFT LOWER EXTREMITY REASON FOR EXAM: Female, 54 years old. LT LEG PAIN AND SWELLING- CALF S/P RT SHOULDER SURGERY TECHNIQUE: Ultrasound evaluation of the deep vein system to include segundo-scale imaging and compression was performed. Segundo-scale imaging and Doppler sonographic evaluation, including duplex spectral analysis and qualitative color flow sonography, was performed. COMPARISON: None. FINDINGS: Common Femoral Vein: Normal compression, spontaneity and augmentation. Normal color Doppler. Common Femoral Vein/Greater Saphenous Junction: Normal compression. No internal echoes. Deep Femoral Vein: No internal echoes. Femoral Proximal: Normal compression. Femoral Middle: Normal compression. Normal spontaneity and augmentation, and color flow. No internal echoes. Femoral Distal: Normal compression. No internal echoes. Popliteal Vein: Normal compression, spontaneity and augmentation. Normal color Doppler. Posterior Tibial Vein: Normal compression. No internal echoes. Peroneal Vein: Normal compression. No internal echoes. US/Venous Duplex Imag/Limited/Uni IMPRESSION: No evidence of DVT of the left lower extremity. Electronically Signed: Marino Rhodes MD at 19:31 EDT , Service support ,
--- NOTE | 2020-01-06 18:53 | ED.VIS.GEN ---
History of Present Illness Chief Complaint: Lower Extremity Injury Narrative: Patient presenting secondary to leg swelling and chest pain. Patient reports that she had shoulder surgery on her right shoulder 8 days ago. She reports that she was unable to wear her compression stockings as much as maybe she should have secondary to the heat. Patient reports that over the course of the last 2 days she has developed swelling and pain that is progressed from her left calf to behind her left knee. Patient also reports that over that time. She has had some chest pain. Chest pain is intermittent, not inducible, not associated with any sort of shortness of breath. She reports that she takes some aspirin and it seems to get better. She denies any history of DVT or PE, no hemoptysis. Patient states that her ibuprofen that she has been taking for her shoulder has not really been helping with the pain behind her calf and her knee. Pain is worse with palpation and is moderate. Review of systems otherwise negative. Past Medical History - Allergies and Home Meds Allergies/Adverse Reactions: Allergies adalimumab [From Humira] Allergy (Verified 12/22/19 13:25) Unknown amoxicillin trihydrate [From Augmentin] Allergy (Verified 12/22/19 13:25) Unknown codeine Allergy (Verified 12/22/19 13:25) Itching etanercept [From Enbrel] Allergy (Verified 12/22/19 13:25) Unknown leflunomide [From Arava] Allergy (Verified 12/22/19 13:25) Other metoprolol tartrate [From Lopressor] Allergy (Verified 12/22/19 13:25) Unknown morphine sulfate [From Embeda] Allergy (Verified 12/22/19 13:25) Unknown naltrexone HCl [From Embeda] Allergy (Verified 12/22/19 13:25) Unknown oxymorphone [Oxymorphone] Allergy (Verified 12/22/19 13:25) Unknown pioglitazone HCl [From Actos] Allergy (Verified 12/22/19 13:25) Other pneumococcal 23-valent polysacchari [From Pneumovax 23] Allergy (Verified 12/22/19 13:25) Unknown potassium clavulanate [From Augmentin] Allergy (Verified 12/22/19 13:25) Unknown Atekkbr-Rrm-Bar Reductase Inhibitor Allergy (Verified 12/22/19 13:25) Unknown sulfamethoxazole [From Bactrim] Allergy (Verified 12/22/19 13:25) Anaphylaxis telithromycin [From Ketek] Allergy (Verified 12/22/19 13:25) Unknown tramadol HCl [From Ultram] Allergy (Verified 12/22/19 13:25) Unknown trimethoprim [From Bactrim] Allergy (Verified 12/22/19 13:25) Anaphylaxis Primary Care Physician: Karl Pichardo MD [Primary Care Provider] - Prior records reviewed: Yes Past Medical History: - - Diabetes, hypertension, hyperlipidemia, RSD Surgical History: - - Sinus surgery, bilateral breast lumpectomies, cholecystectomy, appendectomy, hysterectomy, right total knee replacement, right shoulder surgery x5. Smoking Status: Never smoker Alcohol: None Drugs: None - Family History Maternal Family History: Family History (Last Reviewed 12/22/19 @ 13:25 by Mariya Vale) Father Diabetes Hypertension Mother Diabetes Hypertension Other Cancer Family History: Reports: - - Patient notes a maternal family history of hypertension and diabetes as well as maternal grandmother with breast cancer. Paternal Family History: Family History (Last Reviewed 12/22/19 @ 13:25 by Mariya Vale) Father Diabetes Hypertension Mother Diabetes Hypertension Other Cancer Family History: Reports: - - Patient states she does not know any of her paternal family history. Review of Systems All systems negative except as indicated General: Denies: Chills, Fever, Sweats Eyes: Denies: Visual changes - bilaterally, Diplopia ENT: Denies: Rhinorrhea, Sore throat Cardiovascular: Reports: Chest pain Respiratory: Denies: Dyspnea Gastrointestinal: Denies: Abdominal pain, Nausea, Vomiting, Diarrhea, Melena, Hematochezia Genitourinary: Denies: Dysuria, Hematuria, Frequency Musculoskeletal: Reports: Swelling, Extremity Pain Skin: Denies: Rash, Wounds Neurological: Denies: Headache, Weakness, Numbness Physical Exam Vital Signs/Narrative: Vital Signs Temp Pulse Resp BP Pulse Ox 01/06/20 18:40 96.7 F L 97 16 180/107 H 100 Inital Vital Signs reviewed: Yes General: Well nourished, Well developed, No Acute Distress Head: Normocephalic, Atraumatic Eyes: Perrl, EOMI ENT: Moist mucous membranes, No rhinorrhea Neck: Supple, Nontender Cardiovascular: Regular rate, Regular rhythm, No murmurs Respiratory: No distress, CTA bilaterally, Chest nontender Abdomen: Soft, Nontender, Nondistended, Normal bowel sounds Back: Nontender, Normal Inspection Extremities: Nontender, No edema, - - Well-healing surgical incision on the patient's right shoulder, no evidence of erythema, induration, fluctuance, or drainage. Examination of the patient's left leg shows a mild amount of swelling. There is tenderness of the calf going up into the popliteal area with no palpable cord. Soft compartments. Normal distal pulses and sensation. Skin: Normal color, No rash Neurological: Alert, Oriented x3, Cranial nerves II-XII grossly intact, Normal Strength, Normal Sensation Psychological: Normal affect, Normal Mood Diagnostic/Tx/Re-eval Clinical Impression(s) from Imaging Studies Venous Duplex 01/06/20 18:51 IMPRESSION: No evidence of DVT of the left lower extremity. Electronically Signed: Marino Rhodes MD at 19:31 EDT , Service support , Chest X-Ray 01/06/20 19:20 IMPRESSION: Normal x-ray examination of the chest. Electronically Signed: Marino Rhodes MD at 19:32 EDT , Service support , Laboratory Data 01/06/20 01/06/20 19:00 19:00 WBC 10.3 RBC 3.68 L Hgb 11.2 L Hct 35.5 L MCV 96.5 MCH 30.4 MCHC 31.5 L RDW Std Deviation 47.2 H RDW Coeff of Da[place] 13.4 Plt Count 408 MPV 8.8 Immature Gran % (Auto) 0.300 Neut % (Auto) 63.3 Lymph % (Auto) 25.9 [place] % (Auto) 6.8 Eos % (Auto) 3.1 Baso % (Auto) 0.6 Absolute Neuts (auto) 6.5 Absolute Lymphs (auto) 2.66 Nucleated RBC % 0 Sodium 139 Potassium 3.8 Chloride 106 Carbon Dioxide 27.0 Anion Gap 6 BUN 11 Creatinine 0.80 Estim Creat Clear Calc 82.04 Est GFR (MDRD) Af Amer 97 Est GFR (MDRD) Non-Af 80 BUN/Creatinine Ratio 13.8 Glucose 93 Calcium 8.2 L Troponin I < 0.015 - EKG Initial EKG Interpretation: - - Sinus rhythm of [address] segments normal T waves, no evidence of acute ischemia or arrhythmia. No changes from prior EKG in August of this year. - Medical Decision Making Patient presented secondary to leg pain and swelling in the setting of a recent surgery. Duplex ultrasound was performed and was interpreted as negative for DVT. Patient remarked that she was having some intermittent chest pain, so chest pain work-up was obtained and was also found to be negative. By the patient's records, she appears to have frequent bouts of intermittent chest pain, and I feel that that her negative work-up today is adequate for safe discharge. Patient's pain in her leg likely associated with peripheral edema. She has no tachycardia or hypoxia to make me think that she has pulmonary embolism at this time. Patient was recommended to wear her compression stockings. Patient was recommended to follow-up with primary care. ED Disposition - Plan for ED Patient: Disposition: Home or Assisted Living Diagnosis: Peripheral edema Instructions: ED Peripheral Edema, Unilateral Referrals: Karl Pichardo MD [Primary Care Provider] - 3-5 Days
[2020-01-06 19:11] LABS: Absolute Lymphocyte Count 2.66 X10^3/uL (0.83-4.51); Absolute Neutrophil Count 6.5 X10^3/uL (2.0-7.7); Basophil# 0.06 X10^3/uL; Basophil% 0.6 % (0-1); Eosinophil# 0.32 X10^3/uL; Eosinophils% 3.1 % (0-5); Hematocrit 35.5 % (37-47); Hemoglobin 11.2 g/dL (12.0-15.0); Lymphocyte # 2.66 X10^3/ul (4.0); Lymphocyte % 25.9 % (19-41); Mean Corp Hgb Conc 31.5 g/dL (32-36); Mean Corpuscular Hgb 30.4 pg (27.0-32.0); Mean Corpuscular Volume 96.5 fL (81-99); Mean Platelet Vol. 8.8 fl (6.2-12.0); Monocyte% 6.8 % (0-10); NRBC Flagged by Analyzer 0 % (0-5); Neutrophil # 6.49 X10^3/uL (2.7-7.7); Neutrophil % 63.3 % (47-70); Platelet Count 408 K/mm3 (150-450); RBC Distribution Width CV 13.4 % (11.6-14.6); RBC Distribution Width SD 47.2 fl (35.1-43.9); Red Blood Count 3.68 M/mm3 (4.2-5.4); White Blood Count 10.3 K/mm3 (4.4-11.0)
--- NOTE | 2020-01-06 19:20 | RAD_ITS ---
STUDY: X-RAY CHEST REASON FOR EXAM: Female, 54 years old. Left lower leg swelling, patient had right shoulder surgery last week TECHNIQUE: Single AP portable view of the chest. COMPARISON: Prior study of 08/19/2019 FINDINGS: campus monitor leads are present. The lungs are clear and expanded. There is no demonstrated pleural abnormality. Normal size heart. Normal mediastinum and jojo. Normal visualized pulmonary arteries. Normal visualized aortic arch and descending thoracic aorta. Normal visualized thoracic spine. Normal visualized ribs, clavicles, and shoulders. There is no demonstrated abnormality of the visualized soft tissue structures of the upper abdomen. RAD/Chest 1 View (Portable) IMPRESSION: Normal x-ray examination of the chest. Electronically Signed: Marino Rhodes MD at 19:32 EDT , Service support ,
[2020-01-06 19:38] LABS: Anion Gap 6 (5-15); BUN 11 mg/dL (7-18); BUN/Creat Ratio 13.8 RATIO (10-20); Calcium,Total 8.2 mg/dL (8.5-10.1); Chloride 106 mmol/L (98-107); EST Glomerular Filtration Rate 80 mL/min (>60); Est Glom Filt Rate - Afr Amer 97 mL/min (>60); Estimated Creatinine Clearance 82.04 ml/min; Glucose 93 mg/dL (74-106); Potassium 3.8 mmol/L (3.5-5.1); Sodium Level 139 mmol/L (136-145)
[2020-01-06 20:05] VITALS: BP 156/93; PULSE 95; RESP 16
== END 2020-01-06 20:06 | disposition home or self-care (01) ==
LOC: ED 20:01
PROVIDERS: Emergency Provider Emergency Medicine; PCP Family Medicine
DX: R60.0 Localized edema (principal)
CPT/HCPCS: 71045; 80048; 84484; 85025; 93005; 93971; 99283; A4216

== ENCOUNTER → 2020-01-13 10:50 | Outpatient (CLI) | payer MEDICAID, SELFPAY ==
[2020-01-07 11:02] VITALS: BMI 28.6
[2020-01-13 12:14] LABS: Absolute Lymphocyte Count 2.18 X10^3/uL (0.83-4.51); Absolute Neutrophil Count 2.8 X10^3/uL (2.0-7.7); Basophil# 0.06 X10^3/uL; Eosinophil# 0.22 X10^3/uL; Eosinophils% 3.8 % (0-5); Hematocrit 34.3 % (37-47); Hemoglobin 11.2 g/dL (12.0-15.0); Lymphocyte # 2.18 X10^3/ul (4.0); Lymphocyte % 37.2 % (19-41); Mean Corp Hgb Conc 32.7 g/dL (32-36); Mean Corpuscular Hgb 31.5 pg (27.0-32.0); Mean Corpuscular Volume 96.6 fL (81-99); Mean Platelet Vol. 8.9 fl (6.2-12.0); Monocyte# 0.56 X10^3/uL; Monocyte% 9.6 % (0-10); NRBC Flagged by Analyzer 0 % (0-5); Neutrophil # 2.82 X10^3/uL (2.7-7.7); Neutrophil % 48.1 % (47-70); Platelet Count 353 K/mm3 (150-450); RBC Distribution Width SD 48.9 fl (35.1-43.9); Red Blood Count 3.55 M/mm3 (4.2-5.4); White Blood Count 5.9 K/mm3 (4.4-11.0)
[2020-01-13 12:38] LABS: Hemoglobin A1c 6.3 % (3.8-5.6)
[2020-01-13 13:08] LABS: ALB/GLOB Ratio 0.8 RATIO (0.9-2.4); AST(SGOT) 40 U/L (15-37); Alanine Aminotransfer ALT/SGPT 21 U/L (13-56); Alkaline Phosphatase 83 U/L (45-117); Anion Gap 8 (5-15); BUN 8 mg/dL (7-18); BUN/Creat Ratio 13.8 RATIO (10-20); Bilirubin, Direct 0.12 mg/dL (0.00-0.30); Calcium,Total 8.1 mg/dL (8.5-10.1); Chloride 103 mmol/L (98-107); Cholesterol 163 mg/dL (200); Creatinine, Serum 0.58 mg/dL (0.55-1.02); EST Glomerular Filtration Rate 116 mL/min (>60); Est Glom Filt Rate - Afr Amer 140 mL/min (>60); Globulin 3.7 g/dL (2.2-4.2); Glucose 106 mg/dL (74-106); High Density Lipoprotein 70 mg/dL; Potassium 3.5 mmol/L (3.5-5.1); Protein, Total 6.7 g/dL (6.4-8.2); Sodium Level 139 mmol/L (136-145); Thyroid Stim Hormone (TSH) 2.59 uIU/mL (0.358-3.74); Triglycerides 227 mg/dL; Very Low Density Lipoprotein 45 mg/dL (5-40)
[2020-01-13 16:08] LABS: Vitamin D,25 Hydroxy 30.9 ng/mL
== END ==
PROVIDERS: PCP Family Medicine; Visit Provider Internal Medicine Cardiovascular Disease
DX: E11.9 Type 2 diabetes mellitus without complications (principal); I10 Essential (primary) hypertension; E78.5 Hyperlipidemia, unspecified; E55.9 Vitamin D deficiency, unspecified
CPT/HCPCS: 36415; 80053; 80061; 82248; 82306; 83036; 84443; 85025

== ENCOUNTER → 2020-01-26 | Outpatient (CLI) | payer MEDICAID, SELFPAY ==
[2020-01-07 11:02] VITALS: BMI 28.6
--- NOTE | 2020-01-26 10:06 | STEWCON_ITS ---
Reason For Study: Chest Pain Stress Results Protocol: Moises Protocol WITH DEFINITY Maximum Predicted HR: 167 bpm Target HR: 142 bpm % Maximum Predicted HR: 90 % DurationHeart Rate Stage (mm:ss) (bpm) BP Comment Baseline 86 136/88No Chest Pain; 2 ML Diluted Definity Moises Protocol Stage I 3:00 130 148/80No Chest Pain; Mild Dyspnea Moises Protocol Stage II 3:00 150 160/72Mild Chest Pain; Mod Dyspnea Recovery 95 132/90No Chest Pain; No Dyspnea Stress Duration: 6:00 mm:ss Maximum Stress HR: 150 bpm METS: 7 Baseline Echocardiogram Findings The estimated ejection fraction is 65 %. Stress Echo Wall motion Data Resting WM Intermediate WM Stress WM Resting Wall Motion Wall Motion Stress No regional wall motion No regional wall motion abnormalities noted. abnormalities noted. EKG Data The baseline ECG displays normal sinus rhythm. The patient exercised according to the regular Moises protocol for a total duration of 6:00. The maximum heart rate attained was 157 beats per minute. This was 94% of maximum predicted heart rate. The patient exercised into stage 3 of the Moises protocol. During stress, there were no ST or T wave changes noted to suggest ischemia. No clinical angina was noted. No arrhythmias noted. Interpretation Summary The estimated ejection fraction is 65 %. Normal, adequate, treadmill echocardiogram. Negative for ischemia by EKG and echocardiographic criteria. No anginal symptoms noted. No arrhythmias noted. Average exercise capacity for age. Test terminated due to dyspnea. Final LVEF is 75%. Decrease positivity due to poor echo windows requiring Definity agent. Patient taught procedure well. No complications. The study was technically adequate. Contrast injection was performed. Ordering Physician: Roe Mckay Referring Physician: Karl Pichardo Performed By: Cierra Gates, CROWCS, RVT
== END | disposition home or self-care (01) ==
LOC: CVS 10:06
PROVIDERS: PCP Family Medicine; Referring Provider Internal Medicine Cardiovascular Disease; Visit Provider Internal Medicine Cardiovascular Disease
DX: R07.9 Chest pain, unspecified (principal); I10 Essential (primary) hypertension
CPT/HCPCS: 93017; 93350; Q9957; A4216; C8928

== ENCOUNTER → 2020-02-22 06:52 | Outpatient (CLI) | payer MEDICAID, SELFPAY ==
[2020-01-07 11:02] VITALS: BMI 28.6
--- NOTE | 2020-02-22 10:32 | PFTCOMP_ITS ---
COMPLETE PULMONARY FUNCTION TEST INTERPRETATION Brief HPI: Patient is a 54 year old female, currently under the care of myself, who presents to [facility] for complete pulmonary function tests secondary to diagnosis of dyspnea. Respiratory therapist reports good effort and reproducible results. Interpretation: Forced expiration spirometry shows no large airways obstructive ventilatory defect with an FEV1 of 74% predicted. There was no bronchodilator response tested. Spirograms are of good quality and plateau normally. The respiratory flow volume loop shows a normal pattern. The patient developed a panic attack following spirometry and lung volumes and was unable to complete testing. Lung volumes by body plethysmography show a normal total lung capacity at 4.76 L, 83% predicted. All other lung volumes are within normal limits. No previous pulmonary function tests were available for review. Impression: Normal spirometry and lung volumes.
== END ==
PROVIDERS: PCP Family Medicine; Referring Provider Internal Medicine Critical Care Medicine; Visit Provider Internal Medicine Critical Care Medicine
DX: R06.09 Other forms of dyspnea (principal)
CPT/HCPCS: 94010; 94726

== ENCOUNTER 2020-02-22 07:38 | Emergency (ER) | payer MEDICAID, SELFPAY ==
[2020-01-07 11:02] VITALS: BMI 28.6
[2020-02-22 07:39] VITALS: BP 133/95; PULSE 108; RESP 20; TEMP 36.1; O2SAT 100; BMI 26.7
--- NOTE | 2020-02-22 07:51 | ED.DCSUM_ITS ---
- ER Visit Summary Date of Service: 02/22/20 Chief Complaint: [Anxiety attack] History of Present Illness: The patient is a 54 F [presents to the emergency department with a panic attack. Patient states that she gets these frequently. Patient states she was doing pulmonary testing when she developed this panic attack. She used to be on Ativan but has not taken it in quite a while. She feels somewhat short of breath and anxious. She feels numb and tingly. She denies recent illness. Denies chest pain. Patient has history of anxiety, depression, diabetes, hypertension, high cholesterol, asthma, and history of RSD.] Physical Examination: [HEENT-PERRLA, EOMI. Cranial nerves II through XII grossly intact. TMs clear. Mucous membranes moist. No adenopathy. Patient anxious appearing and tearful. Cardiovascular-regular rate and rhythm without murmur or ectopy Lungs-clear to auscultation, chest wall stable without crepitus or subcu emphysema Abdomen-normoactive bowel sounds, soft, nontender, no rebound or rigidity, no peritoneal signs. Extremities-intact ?4, normal range of motion, normal pulses, atraumatic] Test Results: [] Emergency Department Course and Treatment: [Patient given Ativan 2 mg IM.] Treatment Plan: [] Disposition: [] Impression: [] This note was generated with [employer] dictation software. It may contain incorrect words, spelling, and punctuation that were not noted in review of the chart prior to signing ED Disposition - Plan for ED Patient: Referrals: Karl Pichardo MD [Primary Care Provider] -
[2020-02-22] MEDS: LORazepam 2 MG/ML Syringe IM (07:56)
--- NOTE | 2020-02-22 08:38 | ED.DEP ---
ED Disposition - Plan for ED Patient: Instructions: ED Panic Attack Prescriptions: Lorazepam [Ativan] 1 mg PO TID PRN #10 tablet PRN Reason: Anxiety Transmission Status: Received by [id number] Referrals: Karl Pichardo MD [Primary Care Provider] - 3-5 Days
[2020-02-22 08:48] VITALS: BP 154/92; PULSE 92; RESP 16; O2SAT 99
== END 2020-02-22 08:48 | disposition home or self-care (01) ==
PROVIDERS: Emergency Provider Emergency Medicine; PCP Family Medicine
DX: F41.9 Anxiety disorder, unspecified (principal); R06.09 Other forms of dyspnea; J45.909 Unspecified asthma, uncomplicated; K21.9 Gastro-esophageal reflux disease without esophagitis; I10 Essential (primary) hypertension; E11.9 Type 2 diabetes mellitus without complications; F32.9 Major depressive disorder, single episode, unspecified; Z79.84 Long term (current) use of oral hypoglycemic drugs
CPT/HCPCS: 94010; 94726; 96372; 99282

== ENCOUNTER 2020-04-02 13:53 | Emergency (ER) | payer MEDICAID, SELFPAY ==
[2020-04-02 13:57] VITALS: BP 139/92; PULSE 104; RESP 18; TEMP 36.3; O2SAT 100; BMI 27.3
[2020-04-02 14:13] VITALS: BP 139/92; PULSE 104; RESP 18; TEMP 36.3; O2SAT 100
--- NOTE | 2020-04-02 15:01 | RAD_ITS ---
STUDY: X-RAY - LEFT HAND REASON FOR EXAM: Female, 54 years old. cat bite, hand red and swollen TECHNIQUE: 3 view(s) of the hand. COMPARISON: None. FINDINGS: Normal radiocarpal articulation. Normal distal radioulnar joint. Normal visualized carpal bones. Normal carpal articulations Normal carpometacarpal articulation of the thumb. Normal second through fifth carpometacarpal joints. Normal metacarpi. Normal metacarpophalangeal joint of the thumb. Normal interphalangeal joint of the thumb. Normal proximal and distal phalanges of the thumb. Normal metacarpophalangeal joints of the second through fifth fingers. Normal proximal and distal interphalangeal joints of the second through fifth fingers. Normal phalanges of the second through fifth fingers. The soft tissue structures are unremarkable. RAD/Hand Min 3 Views IMPRESSION: Normal x-ray examination of the hand. Electronically Signed: Byron Germain, at 15:36 EDT Tel , Service support ,
--- NOTE | 2020-04-02 15:02 | RAD_ITS ---
STUDY: X-RAY - RIGHT HAND REASON FOR EXAM: Female, 54 years old. cat bite, hand red and swollen TECHNIQUE: 3 view(s) of the hand. COMPARISON: None. FINDINGS: Normal radiocarpal articulation. Normal distal radioulnar joint. Normal visualized carpal bones. Normal carpal articulations Normal carpometacarpal articulation of the thumb. Normal second through fifth carpometacarpal joints. Normal metacarpi. Normal metacarpophalangeal joint of the thumb. Normal interphalangeal joint of the thumb. Normal proximal and distal phalanges of the thumb. Normal metacarpophalangeal joints of the second through fifth fingers. Normal proximal and distal interphalangeal joints of the second through fifth fingers. Normal phalanges of the second through fifth fingers. The soft tissue structures are unremarkable. RAD/Hand Min 3 Views IMPRESSION: Normal x-ray examination of the hand. Electronically Signed: Byron Germain, at 15:47 EDT Tel , Service support ,
--- NOTE | 2020-04-02 15:02 | ED.VIS.GEN ---
History of Present Illness Chief Complaint: Bite Informant: Patient Narrative: Patient presents the evaluation of cat bite to the bilateral hands. Patient states that the dog and the cat that she owns were fighting. She was seen this morning in urgent care and was placed on Augmentin x10 days. She states that she has a lot of pain in the hand and notes that the swelling and redness is worse than what it was this morning. Last tetanus 2013. Past Medical History - Allergies and Home Meds Allergies/Adverse Reactions: Allergies adalimumab [From Humira] Allergy (Verified 04/02/20 13:56) Unknown amoxicillin trihydrate [From Augmentin] Allergy (Verified 04/02/20 13:56) Unknown codeine Allergy (Verified 04/02/20 13:56) Itching etanercept [From Enbrel] Allergy (Verified 04/02/20 13:56) Unknown leflunomide [From Arava] Allergy (Verified 04/02/20 13:56) Other metoprolol tartrate [From Lopressor] Allergy (Verified 04/02/20 13:56) Unknown morphine sulfate [From Embeda] Allergy (Verified 04/02/20 13:56) Unknown naltrexone HCl [From Embeda] Allergy (Verified 04/02/20 13:56) Unknown oxymorphone [Oxymorphone] Allergy (Verified 04/02/20 13:56) Unknown pioglitazone HCl [From Actos] Allergy (Verified 04/02/20 13:56) Other pneumococcal 23-valent polysacchari [From Pneumovax 23] Allergy (Verified 04/02/20 13:56) Unknown potassium clavulanate [From Augmentin] Allergy (Verified 04/02/20 13:56) Unknown Iqqxyjp-Mhj-Vqc Reductase Inhibitor Allergy (Verified 04/02/20 13:56) Unknown sulfamethoxazole [From Bactrim] Allergy (Verified 04/02/20 13:56) Anaphylaxis telithromycin [From Ketek] Allergy (Verified 04/02/20 13:56) Unknown tramadol HCl [From Ultram] Allergy (Verified 04/02/20 13:56) Unknown trimethoprim [From Bactrim] Allergy (Verified 04/02/20 13:56) Anaphylaxis Primary Care Physician: Karl Pichardo MD [Primary Care Provider] - Surgical History: - - Sinus surgery, bilateral breast lumpectomies, cholecystectomy, appendectomy, hysterectomy, right total knee replacement, right shoulder surgery x5. Smoking Status: Never smoker - Family History Maternal Family History: Family History (Last Reviewed 01/07/20 @ 11:37 by Evelin Damon) Father Diabetes Hypertension Mother Diabetes Hypertension Other Cancer Family History: Reports: - - Patient notes a maternal family history of hypertension and diabetes as well as maternal grandmother with breast cancer. Paternal Family History: Family History (Last Reviewed 01/07/20 @ 11:37 by Evelin Damon) Father Diabetes Hypertension Mother Diabetes Hypertension Other Cancer Family History: Reports: - - Patient states she does not know any of her paternal family history. Review of Systems General: Denies: Chills, Fever, Sweats Eyes: Denies: Visual changes - bilaterally, Diplopia ENT: Denies: Rhinorrhea, Sore throat Cardiovascular: Denies: Chest pain, Palpitations Respiratory: Denies: Dyspnea, Cough, Dyspnea on exertion Gastrointestinal: Denies: Abdominal pain, Nausea, Vomiting, Diarrhea, Melena, Hematochezia Genitourinary: Denies: Dysuria, Hematuria, Frequency Musculoskeletal: Reports: Extremity Pain. Denies: Back pain Skin: Reports: Wounds. Denies: Rash Neurological: Denies: Headache, Weakness, Numbness Psych: Reports: Anxiety Physical Exam Vital Signs/Narrative: Vital Signs Temp Pulse Resp BP Pulse Ox 04/02/20 14:13 97.4 F L 104 H 18 139/92 H 100 04/02/20 13:57 97.4 F L 104 H 18 139/92 H 100 Inital Vital Signs reviewed: Yes General: Well nourished, Well developed, No Acute Distress Head: Normocephalic, Atraumatic Eyes: Perrl, EOMI ENT: Moist mucous membranes, No rhinorrhea Neck: Supple, Nontender Cardiovascular: Regular rate, Regular rhythm, No murmurs Respiratory: No distress, CTA bilaterally, Chest nontender Abdomen: Soft, Nontender, Nondistended, Normal bowel sounds Back: Nontender, Normal Inspection Extremities: Nontender, No edema Skin: - - There are numerous abrasions and scabbed wounds to the bilateral hands. There is some swelling and erythema over the dorsum of the left hand first metacarpal extending up to the wrist. There is bruising. No evidence of tenosynovitis. Neurological: Alert, Oriented x3, Cranial nerves II-XII grossly intact, Normal Strength, Normal Sensation Psychological: - - Anxious Diagnostic/Tx/Re-eval Clinical Impression(s) from Imaging Studies Hand X-Ray 04/02/20 15:01 IMPRESSION: Normal x-ray examination of the hand. Electronically Signed: Byron Germain, at 15:36 EDT Tel , Service support , Hand X-Ray 04/02/20 15:02 IMPRESSION: Normal x-ray examination of the hand. Electronically Signed: Byron Germain, at 15:47 EDT Tel , Service support , - Medical Decision Making X-rays of the bilateral hands did not reveal an obvious foreign body. Patient should continue her Augmentin. Will use a thumb spica splint for comfort. I can write for a few [place] as well. Patient was advised to monitor closely return if concerns. She was advised that sometimes people do have to be hospitalized for these infections but at this time she is only had 1 dose of her Augmentin I can not call this a treatment failure. ED Disposition - Plan for ED Patient: Disposition: Home or Assisted Living Diagnosis: Cat bite involving extremity, Cellulitis of hand Instructions: ED Bite Cat, ED Cellulitis Prescriptions: Hydrocodone Bitart/Apap 5-325 [[place] 5MG-325MG] 1 tab PO Q6H PRN PRN 3 Days #12 tab PRN Reason: Pain Prescription Printed Referrals: Karl Pichardo MD [Primary Care Provider] - 3-5 Days
[2020-04-02 16:12] VITALS: BP 151/91; PULSE 81; RESP 18
== END 2020-04-02 16:14 | disposition home or self-care (01) ==
PROVIDERS: Emergency Provider Emergency Medicine; PCP Family Medicine
DX: L03.114 Cellulitis of left upper limb (principal); W55.01XA Bitten by cat, initial encounter
CPT/HCPCS: 73130; 99283

== ENCOUNTER 2020-07-05 12:46 | Emergency (ER) | payer MEDICAID, SELFPAY ==
[2020-07-05 12:48] VITALS: BP 155/88; PULSE 114; RESP 18; TEMP 36.1; O2SAT 97; BMI 28.1
--- NOTE | 2020-07-05 13:35 | RAD_ITS ---
STUDY: X-RAY - LEFT SHOULDER REASON FOR EXAM: Female, 55 years old. Pt. states NKI, pain TECHNIQUE: 4 view(s) of the shoulder. COMPARISON: None. FINDINGS: Normal glenohumeral articulation. Normal acromioclavicular joint. Normal acromion. Normal humeral head and visualized proximal humerus. The soft tissue structures are unremarkable. Normal visualized pulmonary apex. RAD/Shoulder min 2 Views IMPRESSION: Normal x-ray examination of the shoulder. Electronically Signed: Tim Cadet, at 13:51 EST , Service support ,
[2020-07-05] MEDS: oxyCODONE 5 MG Tablet 10 MG PO (14:11)
[2020-07-05] MEDS: Acetaminophen 500 MG Tablet 1000 MG PO (14:11)
--- NOTE | 2020-07-05 14:15 | ED.DCSUM_ITS ---
- ER Visit Summary Date of Service: 07/05/20 Chief Complaint: Left shoulder pain History of Present Illness: The patient is a [address] Karl Pichardo. She reports she has had left shoulder pain for months. She saw Dr. Menezes in [place] and had a cortisone shot approximately 1 month ago. She states that she has not gotten any relief. She denies any recent trauma. She reports that her pain is gradually gotten worse. Said dull, stinging pain is 10 out of 10 at worst and 3-10 currently. It is worsened by any movement. Is relieved by laying down having her arm propped up. She has not had an MRI or an x-ray. Physical Examination: Vitals: Stable. Afebrile. General: Well-nourished and well-developed. Head: Normocephalic atraumatic. Neck: Supple, no lymphadenopathy. No JVD. Nontender. Cardiovascular: Regular rate and rhythm. No murmurs. Respiratory: No respiratory distress. Clear to auscultation bilaterally. Abdominal: Soft, nontender, nondistended, normal bowel sounds. No guarding, rebound, or peritoneal signs. Back: Nontender. Extremities: Minimal pain with short arc movements. However she has severe pain with abduction active greater than passive. There is no overlying erythema or warmth to suggest a septic joint. She has diffuse tenderness palpation is mild over her entire deltoid. She is neuro vas intact distal sensation light touch less than 2-second cap refill. 2+ radial pulse. Skin: Normal color, no rash. Neurologic: Alert and oriented ?3. Cranial nerves II through XII are intact. Normal strength and sensation. Psych: Normal affect. Test Results: Clinical Impression(s) from Imaging Studies Shoulder X-Ray 07/05/20 13:35 IMPRESSION: Normal x-ray examination of the shoulder. Electronically Signed: Tim Cadet, at 13:51 EST , Service support , Emergency Department Course and Treatment: An [facility] report was obtained which shows she is had 3 prescriptions for opiates in the past month. She was given oxycodone and Tylenol here. Treatment Plan: Patient will be discharged with Percocet. Instructed to follow- up with orthopedic surgeon as soon as possible. Return to the emergency department for any worsening symptoms. Disposition: To home in improved and stable condition. Impression: 1. Left shoulder pain, chronic. This note was generated with [employer] dictation software. It may contain incorrect words, spelling, and punctuation that were not noted in review of the chart prior to signing ED Disposition - Plan for ED Patient: Instructions: ED Shoulder Pain, Uncertain Cause Prescriptions: Oxycodone HCl/Acetaminophen [Percocet 5/325] 1 tablet PO Q6H PRN PRN 3 Days #12 tablet PRN Reason: Pain Additional Instructions: Follow-up with your orthopedic surgeon as soon as possible.
[2020-07-05 14:28] VITALS: BP 134/69; PULSE 71; RESP 15; O2SAT 98
== END 2020-07-05 14:30 | disposition home or self-care (01) ==
LOC: ED 13:15
PROVIDERS: Emergency Provider Emergency Medicine; PCP Family Medicine
DX: M25.512 Pain in left shoulder (principal)
CPT/HCPCS: 73030; 99284

== ENCOUNTER → 2020-07-10 11:51 | Outpatient (CLI) | payer MEDICAID, SELFPAY ==
[2020-07-05 12:48] VITALS: BMI 28.1
--- NOTE | 2020-07-10 13:08 | NEURO ---
NCS and/or EMG Patient Report Ordering Doctor: Narciso Weathers DATE OF SERVICE: 07/10/20 Indication: Bilateral upper extremity pain. Evaluate for cervical radiculopathy. Findings: Nerve conduction studies were performed in the right and left upper extremity. The right median motor study recording the abductor pollicis brevis showed a normal amplitude, normal distal latency and normal conduction velocity. The right ulnar motor study recording the abductor digiti minimi showed a normal amplitude, normal distal latency and normal conduction velocity. No conduction block was present across the elbow. Mild focal slowing was seen. The right median sensory response recording digit two showed a normal amplitude, latency and conduction velocity. The right ulnar sensory response recording digit five showed a normal amplitude, latency and conduction velocity. The right radial sensory response recording over the extensor snuff box showed a normal amplitude, latency and conduction velocity. The left median motor study recording the abductor pollicis brevis showed a normal amplitude, normal distal latency and normal conduction velocity. The left ulnar motor study recording the abductor digiti minimi showed a normal amplitude, normal distal latency and normal conduction velocity. No conduction block or focal slowing was present across the elbow. The left median sensory response recording digit two showed a normal amplitude, latency and conduction velocity. The left ulnar sensory response recording digit five showed a normal amplitude, latency and conduction velocity. The left radial sensory response recording over the extensor snuff box showed a normal amplitude, latency and conduction velocity. Needle EMG of the right upper extremity and cervical paraspinal muscles was performed. No denervation was seen in any muscle. A brief myotonic discharge was seen in the paraspinal muscles. All motor unit morphology, activation and recruitment patterns were normal. Needle EMG of the left upper extremity and cervical paraspinal muscles was performed. No denervation was seen in any muscle. All motor unit morphology, activation and recruitment patterns were normal. Impression: This is an essentially normal study. There is no definitive electrophysiologic evidence of cervical radiculopathy in either the right or left upper extremity. In addition, there was no electrophysiologic evidence of median or ulnar entrapment neuropathy, or brachial plexopathy in either upper extremity. The brief myotonic discharge in the right paraspinal musculature he is nonspecific and of unclear clinical significance. Please note: the electrodiagnosis of radiculopathy is made on the basis of excluding peripheral nerve lesions on nerve conduction studies and the needle EMG demonstrating denervation and/or reinnervation in the distribution of one or more nerve roots (i.e., acute and/or chronic axonal loss). Thus, electrodiagnostic studies are insensitive in detecting radiculopathy in the absence of axonal loss (e.g., in the setting of compression resulting in intermittent ischemia or mechanical deformation; or demyelination without axonal loss). Thus, clinical correlation is required in the interpretation of this negative electrodiagnostic study for radiculopathy. Toney Mcintosh D.O.
== END ==
PROVIDERS: PCP Family Medicine; Referring Provider Orthopaedic Surgery; Visit Provider Orthopaedic Surgery
DX: S46.011D Strain of muscle(s) and tendon(s) of the rotator cuff of right shoulder, subsequent encounter (principal); M25.512 Pain in left shoulder
CPT/HCPCS: 95885; 95911

== ENCOUNTER 2020-07-29 13:30 | Emergency (ER) | payer MEDICAID, SELFPAY ==
[2020-07-29 13:33] VITALS: BP 153/109; PULSE 100; RESP 16; TEMP 36.1; O2SAT 98; BMI 28.1
[2020-07-29 13:35] VITALS: BP 153/109; PULSE 100; RESP 16; TEMP 36.1; O2SAT 98
[2020-07-29] MEDS: Ondansetron 4 MG/2 ML Vial IV (14:22)
[2020-07-29] MEDS: 0.9% Normal Saline 1,000 ML 1000 ML IV (14:22)
--- NOTE | 2020-07-29 14:23 | ED.DCSUM_ITS ---
- ER Visit Summary Date of Service: 07/29/20 Chief Complaint: Abdominal pain and black tarry stools History of Present Illness: The patient is a 55 F who presents with abdominal pain, nausea, vomiting, and melena that began today. Patient states she woke up early this morning and was unable to sleep after that because of the pain. Patient describes her pain as dull and aching. Patient states her pain is diffuse across her abdomen. Patient states she has a history of gastrointestinal bleeding and noticed that her stools were black and tarry today. Patient denies any dysuria or hematuria. Patient denies any hematochezia. Patient denies any coffee-ground emesis or hematemesis. Physical Examination: Vital signs are stable. Patient is afebrile. Patient is in no acute distress. Oral mucosa is pink and moist. Neck is supple. Trachea is midline. There is no JVD. Heart was regular rate and rhythm. Lungs are clear and equal bilaterally. Abdomen is soft. Bowel sounds are normal. There is mild diffuse tenderness. There is no rebound or guarding noted. Rectal exam showed good sphincter tone. There is no stool noted in the rectum. Stool was sent for Hemoccult. Cranial nerves II through XII are intact. There are no focal motor or sensory deficits noted. Extremities are intact. There is no calf tenderness or edema. Test Results: CBC and comprehensive metabolic profile were obtained and were essentially within normal limits. Lipase was normal. Urinalysis does not show any evidence of urinary tract infection. Stool was Hemoccult negative. Emergency Department Course and Treatment: Patient was given IV fluids and Zofran here. Patient was feeling better on reevaluation. Patient was instructed to continue taking her omeprazole. Patient was instructed to follow- up with her primary care physician in 5 to 7 days. Patient understood and was agreeable with the plan. All questions were answered. Disposition: Discharge home Impression: Abdominal pain This note was generated with [employer] dictation software. It may contain incorrect words, spelling, and punctuation that were not noted in review of the chart prior to signing ED Disposition - Plan for ED Patient: Disposition: Home or Assisted Living Diagnosis: Abdominal pain Instructions: ED Abdominal Pain Unkn Cause Fem, ED Upper GI Bleeding (Stable) Referrals: Karl Pichardo MD [Primary Care Provider] - 5-7 Days
[2020-07-29 14:50] LABS: Absolute Lymphocyte Count 2.52 X10^3/uL (0.83-4.51); Absolute Neutrophil Count 7.6 X10^3/uL (2.0-7.7); Basophil# 0.06 X10^3/uL; Basophil% 0.5 % (0-1); Eosinophil# 0.19 X10^3/uL; Eosinophils% 1.7 % (0-5); Hematocrit 38.3 % (37-47); Hemoglobin 12.4 g/dL (12.0-15.0); Lymphocyte # 2.52 X10^3/ul (4.0); Lymphocyte % 22.5 % (19-41); Mean Corp Hgb Conc 32.4 g/dL (32-36); Mean Corpuscular Hgb 30.4 pg (27.0-32.0); Mean Corpuscular Volume 93.9 fL (81-99); Mean Platelet Vol. 8.9 fl (6.2-12.0); Monocyte# 0.82 X10^3/uL; Monocyte% 7.3 % (0-10); NRBC Flagged by Analyzer 0 % (0-5); Neutrophil # 7.58 X10^3/uL (2.7-7.7); Neutrophil % 67.7 % (47-70); Platelet Count 385 K/mm3 (150-450); RBC Distribution Width CV 12.5 % (11.6-14.6); RBC Distribution Width SD 43.4 fl (35.1-43.9); Red Blood Count 4.08 M/mm3 (4.2-5.4); White Blood Count 11.2 K/mm3 (4.4-11.0)
[2020-07-29 15:02] LABS: ALB/GLOB Ratio 0.8 RATIO (0.9-2.4); AST(SGOT) 63 U/L (15-37); Alanine Aminotransfer ALT/SGPT 50 U/L (13-56); Albumin, Serum 3.1 g/dL (3.2-5.0); Alkaline Phosphatase 101 U/L (45-117); Anion Gap 9 (5-15); BUN 7 mg/dL (7-18); BUN/Creat Ratio 9.1 RATIO (10-20); Calcium,Total 8.5 mg/dL (8.5-10.1); Chloride 104 mmol/L (98-107); Creatinine, Serum 0.77 mg/dL (0.55-1.02); EST Glomerular Filtration Rate 83 mL/min (>60); Est Glom Filt Rate - Afr Amer 101 mL/min (>60); Estimated Creatinine Clearance 84.25 ml/min; Globulin 3.7 g/dL (2.2-4.2); Glucose 149 mg/dL (74-106); Lipase 62 U/L (73-393); Potassium 3.5 mmol/L (3.5-5.1); Protein, Total 6.8 g/dL (6.4-8.2); Sodium Level 136 mmol/L (136-145)
[2020-07-29 15:27] LABS: Mucous, Urine 0 SEEN /hpf (<or=2+); Red Blood Cells-Urine 0 SEEN /hpf (0-5); White Blood Cells 0 SEEN /hpf (0-5)
[2020-07-29 15:31] LABS: Color, Urine Yellow (Yellow); Glucose, Dipstick Normal (Normal); Ketone-Dipstick 5 mg/dl (Negative); Leukocyte Esterase-Dipstick 25 /ul (Negative); Nitrite-Dipstick Negative (Negative); Occult Blood-Urine Negative /ul (Negative); Protein-Dipstick 30 mg/dl (Negative); Urine Bilirubin Dipstick Negative (Negative); Urine Clarity Cloudy (Clear); Urine Urobilinogen Normal (Normal)
[2020-07-29 16:04] VITALS: BP 160/89; PULSE 66; RESP 16; TEMP 35.4; O2SAT 100
[2020-07-29 16:07] LABS: Bacteria 3+ /hpf (None Seen); Squamous Epithelial Cells - UA 10-25 SEEN /hpf (5-10)
== END 2020-07-29 17:07 | disposition home or self-care (01) ==
PROVIDERS: Emergency Provider Emergency Medicine; PCP Family Medicine
DX: R10.9 Unspecified abdominal pain (principal); K92.1 Melena; R11.2 Nausea with vomiting, unspecified; K21.9 Gastro-esophageal reflux disease without esophagitis; I10 Essential (primary) hypertension
CPT/HCPCS: 80053; 81001; 82274; 83690; 85025; 96361; 96374; 99283; J7030; J2405

== ENCOUNTER 2020-08-17 12:04 | Emergency (ER) | payer MEDICAID, SELFPAY ==
[2020-08-17 12:04] VITALS: BP 111/65; PULSE 120; RESP 28; TEMP 36.6; O2SAT 99; BMI 28.1
--- NOTE | 2020-08-17 12:23 | CT_ITS ---
STUDY: CTA HEAD AND NECK WITH CONTRAST REASON FOR EXAM: Female, 55 years old. Dizziness, nausea, after chiropractic adjustment yesterday, ? dissection. Hx hypertension, diabetes, TIA. RADIATION DOSAGE (If Supplied By Facility): CTDIvol = ( 27 ) mGy, DLP = ( 1654.46 ) mGycm TECHNIQUE: CT angiography was performed with a multi-detector CT scanner. Data acquisition was obtained from the skull base through the vertex following intravenous administration of 100mL Isovue 370. MIP images were reconstructed from the axial data set. Post-processing of the angiographic images was performed, with multiplanar reformation and 3D reconstruction. Individualized dose optimization techniques were used for this CT. COMPARISON: No relevant priors. FINDINGS: Normal bilateral petrous carotid arteries. Normal right cavernous carotid artery with a normal supraclinoid bifurcation. Normal left cavernous carotid artery with a normal supraclinoid bifurcation. Normal right A1 segments of the anterior cerebral artery. Normal left A1 segments of the anterior cerebral artery. Normal intact anterior communicating artery (ACOM). Normal bilateral A2 segments of the anterior cerebral arteries. Normal right M1 and M2 segments of the middle cerebral arteries, with a normal M1 bifurcation. Normal left M1 and M2 segments of the middle cerebral arteries, with a normal M1 bifurcation. Normal right posterior communicating artery (PCOM). Normal left posterior communicating artery (PCOM). Normal bilateral vertebral arteries. Normal basilar artery with a normal basilar bifurcation. The visualized bilateral superior cerebellar (SCA) arteries are normal. Normal bilateral P1, P2 and visualized P3 segments of the posterior cerebral arteries. There is no demonstrated aneurysm of the [place] of [place]. There is no demonstrated abnormality of the visualized brain. AORTIC ARCH: Normal visualized aortic arch. Normal origins of the brachiocephalic, left common carotid, and left subclavian arteries. RIGHT CAROTID ARTERIES: Normal right common carotid artery (CCA). Normal right common carotid bulb. Normal origin of the right internal carotid (ICA) artery without a hemodynamically significant stenosis. Normal visualized cervical portion of the right internal carotid artery. Normal origin of the right external carotid artery (ECA). LEFT CAROTID ARTERIES: Normal left common carotid artery (CCA). Normal left common carotid bulb. Normal origin of the left internal carotid (ICA) artery without a hemodynamically significant stenosis. Normal visualized cervical portion of the left internal carotid artery. Normal origin of the left external carotid artery (ECA). VERTEBRAL ARTERIES: Normal bilateral vertebral arteries. IMPRESSION: Normal CTA Head and neck with contrast. Electronically Signed: Tim Blandchar, at 13:46 EST , Service support , STUDY: CT BRAIN WITHOUT CONTRAST REASON FOR EXAM: Female, 55 years old. Dizziness, nausea, after chiropractic adjustment yesterday, ? dissection. Hx hypertension, diabetes, TIA. RADIATION DOSAGE (If Supplied By Facility): CTDIvol = ( 27.32 ) mGy, DLP = ( 1654.46 ) mGycm TECHNIQUE: Transaxial CT imaging of the brain was performed without administration of intravenous contrast material. Individualized dose optimization techniques were used for this CT. COMPARISON: No relevant priors. FINDINGS: Normal soft tissue structures. Normal calvarium. Normal size ventricles and extra-axial spaces for the patient''s age. Normal white matter tracts of the cerebral hemispheres. Normal basal ganglia and thalami. Normal brainstem. Normal cerebellum. There is no intracranial hemorrhage. There are no findings of an acute ischemic infarction. Normal visualized paranasal sinuses. CT/CTA Head AND Neck W/ Contrast IMPRESSION: Normal unenhanced CT scan of the brain. Electronically Signed: Tim Veronicarishabh, at 13:46 EST , Service support ,
[2020-08-17] MEDS: Ondansetron 4 MG/2 ML Vial IV (12:35)
[2020-08-17] MEDS: LORazepam 2 MG/ML Syringe 1 MG IV (12:36)
[2020-08-17] MEDS: HYDROmorphone 1 MG/ML Syringe IV (12:37)
[2020-08-17 12:40] LABS: Absolute Lymphocyte Count 3.18 X10^3/uL (0.83-4.51); Absolute Neutrophil Count 8.2 X10^3/uL (2.0-7.7); Basophil# 0.07 X10^3/uL; Basophil% 0.6 % (0-1); Eosinophil# 0.21 X10^3/uL; Eosinophils% 1.7 % (0-5); Hematocrit 43.2 % (37-47); Hemoglobin 13.9 g/dL (12.0-15.0); Lymphocyte # 3.18 X10^3/ul (4.0); Lymphocyte % 25.3 % (19-41); Mean Corp Hgb Conc 32.2 g/dL (32-36); Mean Corpuscular Hgb 30.5 pg (27.0-32.0); Mean Corpuscular Volume 94.7 fL (81-99); Mean Platelet Vol. 8.7 fl (6.2-12.0); Monocyte# 0.93 X10^3/uL; Monocyte% 7.4 % (0-10); NRBC Flagged by Analyzer 0 % (0-5); Neutrophil # 8.17 X10^3/uL (2.7-7.7); Neutrophil % 64.8 % (47-70); Platelet Count 420 K/mm3 (150-450); RBC Distribution Width CV 12.4 % (11.6-14.6); RBC Distribution Width SD 43.5 fl (35.1-43.9); Red Blood Count 4.56 M/mm3 (4.2-5.4); White Blood Count 12.6 K/mm3 (4.4-11.0)
[2020-08-17 12:53] LABS: Anion Gap 10 (5-15); BUN 7 mg/dL (7-18); BUN/Creat Ratio 8.8 RATIO (10-20); Calcium,Total 8.8 mg/dL (8.5-10.1); Chloride 108 mmol/L (98-107); EST Glomerular Filtration Rate 80 mL/min (>60); Est Glom Filt Rate - Afr Amer 97 mL/min (>60); Glucose 174 mg/dL (74-106); Potassium 3.9 mmol/L (3.5-5.1); Sodium Level 138 mmol/L (136-145)
--- NOTE | 2020-08-17 14:14 | ED.DCSUM_ITS ---
History of Present Illness Chief Complaint: Headache Narrative: Patient presenting for evaluation secondary to neck pain. Patient is on chronic pain management for severe cervical radiculopathy. Patient states that yesterday she had a chiropractic manipulation where she was put in traction, and she had immediate onset of severe worsening pain. Pain is in her bilateral neck and goes up into her head and she states is associated with a feeling of dizziness. Patient denies any visual changes. She denies any numbness or weakness. Patient states that the pain is so severe that is causing her vomiting. She denies any recent fevers. Review of systems otherwise negative. Past Medical History - Allergies and Home Meds Allergies/Adverse Reactions: Allergies adalimumab [From Humira] Allergy (Verified 08/17/20 12:08) Unknown amoxicillin trihydrate [From Augmentin] Allergy (Verified 08/17/20 12:08) Unknown codeine Allergy (Verified 08/17/20 12:08) Itching etanercept [From Enbrel] Allergy (Verified 08/17/20 12:08) Unknown leflunomide [From Arava] Allergy (Verified 08/17/20 12:08) Other metoprolol tartrate [From Lopressor] Allergy (Verified 08/17/20 12:08) Unknown morphine sulfate [From Embeda] Allergy (Verified 08/17/20 12:08) Unknown naltrexone HCl [From Embeda] Allergy (Verified 08/17/20 12:08) Unknown oxymorphone [Oxymorphone] Allergy (Verified 08/17/20 12:08) Unknown pioglitazone HCl [From Actos] Allergy (Verified 08/17/20 12:08) Other pneumococcal 23-valent polysacchari [From Pneumovax 23] Allergy (Verified 08/17/20 12:08) Unknown potassium clavulanate [From Augmentin] Allergy (Verified 08/17/20 12:08) Unknown Qkmcwzk-Nup-Atd Reductase Inhibitor Allergy (Verified 08/17/20 12:08) Unknown sulfamethoxazole [From Bactrim] Allergy (Verified 08/17/20 12:08) Anaphylaxis telithromycin [From Ketek] Allergy (Verified 08/17/20 12:08) Unknown tramadol HCl [From Ultram] Allergy (Verified 08/17/20 12:08) Unknown trimethoprim [From Bactrim] Allergy (Verified 08/17/20 12:08) Anaphylaxis Primary Care Physician: Karl Pichardo MD [Primary Care Provider] - Prior records reviewed: Yes Past Medical History: - - Asthma, diabetes, hyperlipidemia, RSD Surgical History: - - Sinus surgery, bilateral breast lumpectomies, cholecystectomy, appendectomy, hysterectomy, right total knee replacement, right shoulder surgery x5. Smoking Status: Never smoker Alcohol: None Drugs: None - Family History Maternal Family History: Family History (Last Reviewed 01/07/20 @ 11:37 by Evelin Damon) Father Diabetes Hypertension Mother Diabetes Hypertension Other Cancer Family History: Reports: - - Patient notes a maternal family history of hypertension and diabetes as well as maternal grandmother with breast cancer. Paternal Family History: Family History (Last Reviewed 01/07/20 @ 11:37 by Evelin Damon) Father Diabetes Hypertension Mother Diabetes Hypertension Other Cancer Family History: Reports: - - Patient states she does not know any of her paternal family history. Review of Systems All systems negative except as indicated General: Denies: Chills, Fever, Sweats Eyes: Denies: Visual changes - bilaterally, Diplopia ENT: Denies: Rhinorrhea, Sore throat Cardiovascular: Denies: Chest pain, Palpitations Respiratory: Denies: Dyspnea, Cough, Dyspnea on exertion Gastrointestinal: Reports: Nausea, Vomiting Genitourinary: Denies: Dysuria, Hematuria, Frequency Musculoskeletal: Reports: Neck pain Skin: Denies: Rash, Wounds Neurological: Reports: Headache, - - Dizziness Physical Exam Vital Signs/Narrative: Vital Signs Temp Pulse Resp BP Pulse Ox 08/17/20 12:04 98 F 120 H 28 H 111/65 99 Inital Vital Signs reviewed: Yes General: Acute Distress Head: Normocephalic, Atraumatic Eyes: Perrl, EOMI ENT: Moist mucous membranes Neck: Supple, - - Diffuse nonlocalizing tenderness to palpation. Exam is difficult secondary to the patient crying and moving around in bed and being not cooperative Cardiovascular: Regular rate, Regular rhythm, No murmurs, - - 2+ radial pulses bilaterally symmetric Respiratory: No distress, CTA bilaterally, Chest nontender Extremities: Nontender, No edema Skin: - - Diaphoretic and warm Neurological: Alert, Oriented x3, Cranial nerves II-XII grossly intact, Normal Strength, Normal Sensation, - - 5 out of 5 strength at the shoulder elbow wrist and hand with normal sensation over all dermatomes. Diagnostic/Tx/Re-eval Clinical Impression(s) from Imaging Studies Head/Neck CTA 08/17/20 12:23 IMPRESSION: Normal unenhanced CT scan of the brain. Electronically Signed: Tim Cadet, at 13:46 EST , Service support , Laboratory Data 08/17/20 08/17/20 12:33 12:33 WBC 12.6 H RBC 4.56 Hgb 13.9 Hct 43.2 MCV 94.7 MCH 30.5 MCHC 32.2 RDW Std Deviation 43.5 RDW Coeff of Daiana 12.4 Plt Count 420 MPV 8.7 Immature Gran % (Auto) 0.200 Neut % (Auto) 64.8 Lymph % (Auto) 25.3 Hettinger % (Auto) 7.4 Eos % (Auto) 1.7 Baso % (Auto) 0.6 Absolute Neuts (auto) 8.2 H Absolute Lymphs (auto) 3.18 Nucleated RBC % 0 Sodium 138 Potassium 3.9 Chloride 108 H Carbon Dioxide 20.0 L Anion Gap 10 BUN 7 Creatinine 0.80 Estim Creat Clear Calc 81.10 Est GFR (MDRD) Af Amer 97 Est GFR (MDRD) Non-Af 80 BUN/Creatinine Ratio 8.8 L Glucose 174 H Calcium 8.8 - Medical Decision Making Patient presented secondary to significant neck pain after chiropractic manipulation. Patient was crying and somewhat in distress. IV was established she was given Dilaudid Zofran and Ativan. CT angiogram of the head and neck were ordered to rule out the possibility of dissection. These were found to be negative per radiology. Patient's lab work is unremarkable. Repeat evaluation of the patient at 1400 shows some symptomatic improvement, and the patient is much more calm. Patient likely is just having an exacerbation of her chronic pain secondary to her chiropractic manipulation. Patient was given a dose of Toradol and a lidocaine patch in the emergency department. She was recommended to follow-up with her painter helper sign. ED Disposition - Plan for ED Patient: Disposition: Home or Assisted Living Diagnosis: Chronic neck pain Instructions: ED Neck Pain Referrals: Karl Pichardo MD [Primary Care Provider] - As Needed
[2020-08-17] MEDS: Ketorolac 15 MG/ML Vial IV (14:27)
[2020-08-17] MEDS: Lidocaine 5% Patch 1 PATCH TOPICAL (14:31)
[2020-08-17 14:32] VITALS: BP 154/90; PULSE 87; RESP 18; O2SAT 97
== END 2020-08-17 15:27 | disposition home or self-care (01) ==
PROVIDERS: Emergency Provider Emergency Medicine; PCP Family Medicine
DX: M54.2 Cervicalgia (principal); G89.29 Other chronic pain; J45.909 Unspecified asthma, uncomplicated; I10 Essential (primary) hypertension
CPT/HCPCS: 70496; 70498; 80048; 85025; 96374; 96375; 99283; Q9967; A4216; J2405

== ENCOUNTER 2020-10-04 12:57 | Emergency (ER) | payer MEDICAID, SELFPAY ==
[2020-10-04 12:58] VITALS: BP 110/90; PULSE 132; RESP 13; TEMP 36.6; O2SAT 100; BMI 28.3
--- NOTE | 2020-10-04 13:35 | CT_ITS ---
STUDY: CT SOFT TISSUE NECK WITH CONTRAST REASON FOR EXAM: Female, 55 years old. Swelling difficulty swallowing post cervical fusion RADIATION DOSAGE (If Supplied By Facility): CTDIvol = ( 15.54 ) mGy, DLP = ( 473.39 ) mGycm TECHNIQUE: The patient was scanned in a multi-detector CT scanner. High resolution transaxial imaging was performed following intravenous administration of Isovue 370 75ml. Sagittal and coronal images were reconstructed. Individualized dose optimization techniques were used for this CT. COMPARISON: None. FINDINGS: There is evidence of a 5.2 cm x 1.5 cm x 1.7 cm inhomogeneous fluidlike collection arising in the prevertebral soft tissues from the level of the C3 vertebrae down to the T1 vertebrae on the left side. This extends posteriorly into the prevertebral space. This extends into the region of the esophagus. This most likely represents changes secondary to recent surgery and postoperative seroma or resolving hematoma. The patient is status post anterior fusion with screw and plate fixation at the C3-C4, C4-C5 and C5-C6 levels with multilevel disc spacer placement. Normal bilateral sublingual and submandibular glands and spaces. Normal visualized nasopharynx. Normal retropharyngeal space. Normal perivertebral space. Normal visualized bilateral faucial tonsils. The visualized tongue, tongue base and oropharynx are normal. The visualized cervical lymph nodes (levels I-) are within normal size limits, and maintain normal morphology. There is no demonstrated solid or cystic mass lesion. There is no abnormal contrast enhancement. Normal epiglottis, bilateral vallecula and hypopharynx. The pre-epiglottic and paraglottic adipose spaces are normal. Normal visualized bilateral piriform sinuses, aryepiglottic folds, vocal cords, and arytenoid-cricoid articulations. Normal subglottic trachea. Normal bilateral lobes of the thyroid gland. Normal visualized pulmonary apices. Normal visualized paranasal sinuses. CT/Soft Tissue Neck WITH Contrast IMPRESSION: Status post anterior fusion at the C3-C4, C4-C5 and C5-C6 levels with screw and plate fixation device. Soft tissue swelling with fluid collection as described most likely postoperative in nature suggestive of postoperative seroma or resolving hematoma. Electronically Signed: Tim Cadet MD at 14:49 EST , Service support ,
--- NOTE | 2020-10-04 13:35 | RAD_ITS ---
STUDY: X-RAY CHEST REASON FOR EXAM: Female, 55 years old. SOB . Anxiety. TECHNIQUE: AP and lateral views of the chest. COMPARISON: Comparison is made with prior study dated 01/06/2020. FINDINGS: EKG electrodes are seen. The lungs are clear and expanded. Scattered calcified granulomas. There is no demonstrated pleural abnormality. Normal size heart. Normal mediastinum and jojo. Normal visualized pulmonary arteries. Normal visualized aortic arch and descending thoracic aorta. Normal visualized thoracic spine. Prior lower cervical fusion. There is no demonstrated abnormality of the visualized soft tissue structures of the upper abdomen. RAD/Chest PA and Lateral IMPRESSION: No acute abnormality is seen. Electronically Signed: Tim Cadet MD at 14:52 EST , Service support ,
[2020-10-04] MEDS: 0.9% Normal Saline 1,000 ML 999 ML IV (13:47)
--- NOTE | 2020-10-04 13:51 | ED.VIS.GEN ---
History of Present Illness Chief Complaint: Anxiety Informant: Patient Narrative: Patient is a 55-year-old female with a past medical history of RA on Humira, anxiety who presents to the emergency department for difficulty swallowing and anxiousness. She had a C3-C6 cervical fusion on the of last month. She states that she has progressively had difficulty swallowing and states that pills are started to get stuck in her throat. He has not been able to eat or drink due to the pain. She has been feeling mildly short of breath with this. She did contact her surgeon who told her this was to be expected. She denies any fevers or chills. She denies any issues handling secretions. She denies any chest pain. No fevers or chills. She has been taking oxycodone for the pain but she is having difficulty keeping down her pills now. She does feel very anxious and takes lorazepam for this. Past Medical History - Allergies and Home Meds Allergies/Adverse Reactions: Allergies adalimumab [From Humira] Allergy (Verified 10/04/20 13:08) Unknown amoxicillin trihydrate [From Augmentin] Allergy (Verified 10/04/20 13:08) Unknown codeine Allergy (Verified 10/04/20 13:08) Itching etanercept [From Enbrel] Allergy (Verified 10/04/20 13:08) Unknown leflunomide [From Arava] Allergy (Verified 10/04/20 13:08) Other metoprolol tartrate [From Lopressor] Allergy (Verified 10/04/20 13:08) Unknown morphine sulfate [From Embeda] Allergy (Verified 10/04/20 13:08) Unknown naltrexone HCl [From Embeda] Allergy (Verified 10/04/20 13:08) Unknown oxymorphone [Oxymorphone] Allergy (Verified 10/04/20 13:08) Unknown pioglitazone HCl [From Actos] Allergy (Verified 10/04/20 13:08) Other pneumococcal 23-valent polysacchari [From Pneumovax 23] Allergy (Verified 10/04/20 13:08) Unknown potassium clavulanate [From Augmentin] Allergy (Verified 10/04/20 13:08) Unknown Xuiypod-Cok-Emd Reductase Inhibitor Allergy (Verified 10/04/20 13:08) Unknown sulfamethoxazole [From Bactrim] Allergy (Verified 10/04/20 13:08) Anaphylaxis telithromycin [From Ketek] Allergy (Verified 10/04/20 13:08) Unknown tramadol HCl [From Ultram] Allergy (Verified 10/04/20 13:08) Unknown trimethoprim [From Bactrim] Allergy (Verified 10/04/20 13:08) Anaphylaxis Primary Care Physician: Franco Lopez DO [STAFF PHYSICIAN] - As soon as possible Karl Pichardo MD [Primary Care Provider] - Prior records reviewed: Yes Surgical History: - - Sinus surgery, bilateral breast lumpectomies, cholecystectomy, appendectomy, hysterectomy, right total knee replacement, right shoulder surgery x5. Smoking Status: Never smoker - Family History Maternal Family History: Family History (Last Reviewed 01/07/20 @ 11:37 by Evelin Damon) Father Diabetes Hypertension Mother Diabetes Hypertension Other Cancer Family History: Reports: - - Patient notes a maternal family history of hypertension and diabetes as well as maternal grandmother with breast cancer. Paternal Family History: Family History (Last Reviewed 01/07/20 @ 11:37 by Evelin Damon) Father Diabetes Hypertension Mother Diabetes Hypertension Other Cancer Family History: Reports: - - Patient states she does not know any of her paternal family history. Review of Systems All systems negative except as indicated General: Denies: Chills, Fever, Sweats Eyes: Denies: Visual changes - bilaterally, Diplopia ENT: Reports: Sore throat. Denies: Rhinorrhea Cardiovascular: Denies: Chest pain, Palpitations Respiratory: Reports: Dyspnea. Denies: Cough, Dyspnea on exertion Gastrointestinal: Denies: Abdominal pain, Nausea, Vomiting, Diarrhea Genitourinary: Denies: Dysuria, Hematuria, Frequency Musculoskeletal: Denies: Back pain, Extremity Pain Skin: Denies: Rash, Wounds Neurological: Denies: Headache, Weakness, Numbness Psych: Reports: Anxiety Physical Exam Vital Signs/Narrative: Vital Signs Temp Pulse Resp BP Pulse Ox 10/04/20 12:58 97.8 F 132 H 13 110/90 H 100 Inital Vital Signs reviewed: Yes General: Well nourished, Well developed, No Acute Distress Head: Normocephalic, Atraumatic Eyes: Perrl, EOMI ENT: No rhinorrhea, - - No issues handling secretions, mucous membranes are dry. Uvula midline no significant oral swelling appreciated. Neck: Supple, Nontender, - - Patient in cervical collar, anterior neck incision is well-healed. No obvious external masses appreciated. No stridor Cardiovascular: Regular rhythm, No murmurs, Tachycardia Respiratory: No distress, CTA bilaterally, Chest nontender Abdomen: Soft, Nontender, Nondistended, Normal bowel sounds Back: Nontender, Normal Inspection Extremities: Nontender, No edema Skin: Normal color, No rash Neurological: Alert, Oriented x3, Cranial nerves II-XII grossly intact, Normal Strength, Normal Sensation Psychological: Normal affect, Normal Mood Diagnostic/Tx/Re-eval Chest X-Ray - ED: 2 View - Two-view chest x-ray interpreted by myself. Clear lung hart bilaterally. No effusion. No soft tissue gas present. Normal cardiac silhouette. Agree with radiologist interpretation. - Medical Decision Making Patient presents to the ED for painful and difficulty swallowing after cervical fusion. Upon arrival to the emerge department she is tachycardic into the 120s/30s. She does have dry mucous membranes we will start IV fluids. Will check basic lab work and obtain CT scan of the soft tissues of the neck to evaluate for any evidence of infection, hematoma given the post procedure. Chest x-ray being obtained due to her mild shortness of breath. She is satting 100% on room air. Patient's lab work shows that she does have an elevated white white blood cell count. Her glucose is high as well. No other significant abnormality. CT scan of the soft tissues did show a seroma versus hematoma that appears to be resolving. Given her tachycardia, white blood cell count and abnormal CT I did contact her surgeon, Dr. Lopez. He recommended placing her on a oral dose of Keflex. He recommend that she does not lie flat and uses ice as needed. He did not feel that this was any infection as he did review the CT scan. Patient's heart rate did come down with IV fluids but still mildly tachycardic. Patient is agreeable with this plan. She is going to follow-up with her surgeon as an outpatient. Strict return precautions were discussed with her including inability to handle secretions, feeling short of breath developing any fever/chills or worsening of the swelling. She has been able to handle secretions throughout ED stay. She has tolerated ice and water. We did give her the first dose of Keflex with a solution here. She will be discharged home in stable condition at this time. She is agreeable with this plan. Discharged home in stable condition. All questions were answered. ED Disposition - Plan for ED Patient: Disposition: Home or Assisted Living Diagnosis: Post-op pain, Odynophagia, Leukocytosis, Seroma after procedure Instructions: ED Soft Diet, ED Seroma, Postsurgical, ED Dysphagia (Adult) Prescriptions: Cephalexin Suspension [Keflex Suspension] 500 mg PO Q8 7 Days #1 bot Transmission Status: Received by [id number] Referrals: Karl Pichardo MD [Primary Care Provider] - Franco Lopez DO [STAFF PHYSICIAN] - As soon as possible
[2020-10-04 13:52] LABS: Absolute Lymphocyte Count 3.21 X10^3/uL (0.83-4.51); Absolute Neutrophil Count 10.4 X10^3/uL (2.0-7.7); Basophil# 0.05 X10^3/uL; Basophil% 0.3 % (0-1); Eosinophil# 0.28 X10^3/uL; Eosinophils% 1.8 % (0-5); Hematocrit 42.2 % (37-47); Hemoglobin 13.8 g/dL (12.0-15.0); Lymphocyte # 3.21 X10^3/ul (4.0); Lymphocyte % 21.2 % (19-41); Mean Corp Hgb Conc 32.7 g/dL (32-36); Mean Corpuscular Hgb 30.5 pg (27.0-32.0); Mean Corpuscular Volume 93.4 fL (81-99); Monocyte% 7.9 % (0-10); NRBC Flagged by Analyzer 0 % (0-5); Neutrophil # 10.35 X10^3/uL (2.7-7.7); Neutrophil % 68.3 % (47-70); Platelet Count 440 K/mm3 (150-450); RBC Distribution Width SD 41.3 fl (35.1-43.9); Red Blood Count 4.52 M/mm3 (4.2-5.4); White Blood Count 15.2 K/mm3 (4.4-11.0)
[2020-10-04 14:06] LABS: Anion Gap 10 (5-15); BUN 12 mg/dL (7-18); BUN/Creat Ratio 11.8 RATIO (10-20); Calcium,Total 9.4 mg/dL (8.5-10.1); Chloride 100 mmol/L (98-107); Creatinine, Serum 1.02 mg/dL (0.55-1.02); EST Glomerular Filtration Rate 60 mL/min (>60); Est Glom Filt Rate - Afr Amer 73 mL/min (>60); Glucose 264 mg/dL (74-106); Potassium 3.6 mmol/L (3.5-5.1); Sodium Level 136 mmol/L (136-145)
[2020-10-04 15:55] VITALS: BP 101/88; PULSE 114; RESP 23; O2SAT 97
== END 2020-10-04 15:55 | disposition home or self-care (01) ==
PROVIDERS: Emergency Provider Emergency Medicine; PCP Family Medicine
DX: G89.18 Other acute postprocedural pain (principal); R13.10 Dysphagia, unspecified; D72.829 Elevated white blood cell count, unspecified; F41.9 Anxiety disorder, unspecified; Z90.710 Acquired absence of both cervix and uterus; Z90.49 Acquired absence of other specified parts of digestive tract; Z79.899 Other long term (current) drug therapy
CPT/HCPCS: 70491; 71046; 80048; 85025; 96360; 96361; 99285; J7030; Q9967; A4216

== ENCOUNTER 2020-10-05 15:39 | Emergency (ER) | payer MEDICAID, SELFPAY ==
[2020-10-04 12:58] VITALS: BMI 28.3
[2020-10-05] VITALS (7 sets, daily range): BP systolic 124–163; BP diastolic 85–104; PULSE 115–126; RESP 16–20; TEMP 35.5–36.6; O2SAT 91–100; BMI 31.8
[2020-10-05] MEDS: Ondansetron 4 MG/2 ML Vial IV (16:00)
--- NOTE | 2020-10-05 16:03 | EKG12_ITS ---
Test Reason : NAUSEA Blood Pressure : / mmHG Vent. Rate : 118 BPM Atrial Rate : 118 BPM P-R Int : 130 ms QRS Dur : 074 ms QT Int : 334 ms P-R-T Axes : 029 020 021 degrees QTc Int : 468 ms Sinus tachycardia Nonspecific ST abnormality Abnormal ECG Confirmed by EVA MURILLO, BRADEN ([id number]), senior editor TRISTON ENCARNACION ([id number]) on 10/09/2020 2:42:35 PM Referred By: Confirmed By:BRADEN VELASQUEZ MD
--- NOTE | 2020-10-05 16:03 | CT_ITS ---
STUDY: CT ABDOMEN AND PELVIS WITHOUT CONTRAST REASON FOR EXAM: Female, 55 years old. Vomiting. RADIATION DOSAGE (If Supplied By Facility): CTDIvol = ( 19.22 ) mGy, DLP = ( 1013.06 ) mGycm TECHNIQUE: Transaxial images were obtained from the dome of the diaphragm to the symphysis pubis without oral contrast, and without intravenous contrast. Sagittal and coronal images were reconstructed. Individualized dose optimization techniques were used for this CT. COMPARISON: 01/04/2015. FINDINGS: The visualized lung bases are unremarkable. The visualized portions of the heart are within normal limits. Normal liver. There are surgical clips in the gallbladder fossa consistent with a prior cholecystectomy. Normal spleen. Normal pancreas. Normal bilateral adrenal glands. Normal right kidney. Normal left kidney. Normal bilateral ureters. Normal visualized stomach. Normal small intestine. Feces is seen throughout the left colon without mass or obstruction. Fluid is seen in the proximal colon. There are surgical clips in the region of the appendix consistent with a prior appendectomy. Normal abdominal aorta. Normal inferior vena cava. Normal retroperitoneum. Urinary bladder is collapsed. Unremarkable vaginal cuff. There are phleboliths in the pelvis without lymphadenopathy. No free air or free fluid is seen within the peritoneal cavity. Normal abdominal wall. Normal osseous structures. CT/Abdomen/Pelvis without Cont IMPRESSION: 1. There is a interval decrease in hepatic size when compared to the previous study. 2. Increased feces in the right colon with fluid density within the transverse and ascending colon. 3. Interval hysterectomy. 4. No other major interval change. Electronically Signed: Juni Keita DO at 16:59 EST Tel [phone], Service support ,
[2020-10-05] MEDS: HYDROmorphone 1 MG/ML Syringe IV (16:11)
[2020-10-05] MEDS: 0.9% Normal Saline 1,000 ML 1000 ML IV (16:11)
[2020-10-05 16:15] LABS: Absolute Lymphocyte Count 1.68 X10^3/uL (0.83-4.51); Absolute Neutrophil Count 6.5 X10^3/uL (2.0-7.7); Basophil# 0.04 X10^3/uL; Basophil% 0.4 % (0-1); Eosinophil# 0.08 X10^3/uL; Eosinophils% 0.9 % (0-5); Hematocrit 43.1 % (37-47); Hemoglobin 14.6 g/dL (12.0-15.0); Lymphocyte # 1.68 X10^3/ul (4.0); Lymphocyte % 18.6 % (19-41); Mean Corp Hgb Conc 33.9 g/dL (32-36); Mean Corpuscular Hgb 31.2 pg (27.0-32.0); Mean Corpuscular Volume 92.1 fL (81-99); Mean Platelet Vol. 9.1 fl (6.2-12.0); Monocyte# 0.49 X10^3/uL; Monocyte% 5.4 % (0-10); NRBC Flagged by Analyzer 0 % (0-5); Neutrophil # 6.54 X10^3/uL (2.7-7.7); Neutrophil % 72.6 % (47-70); Platelet Count 443 K/mm3 (150-450); RBC Distribution Width CV 11.9 % (11.6-14.6); RBC Distribution Width SD 39.8 fl (35.1-43.9); Red Blood Count 4.68 M/mm3 (4.2-5.4)
--- NOTE | 2020-10-05 16:36 | ED.DCSUM_ITS ---
- ER Visit Summary Date of Service: 10/05/20 Chief Complaint: Nausea and vomiting History of Present Illness: The patient is a 55 F presenting with nausea and vomiting. Patient had cervical fusion C3-C6 at [facility] per Dr. Lopez on September 28. She was seen in the ED yesterday for difficulty swallowing. CT scan soft tissue neck was performed yesterday which showed postoperative seroma versus hematoma. She is scheduled to see Dr. Lopez tomorrow. She states she started vomiting last night. She is unable to keep fluids down. She denies fever. She had one episode of diarrhea. She has difficulty swallowing which is persistent but no worse than yesterday. She states the swelling in her neck is actually improved from yesterday. Physical Examination: Vitals are stable. Patient is afebrile. Alert no acute distress. HEENT exam is unremarkable. Pharynx is normal. Uvula midline. Neck is supple. Cervical collar in place. Anterior neck incision clean dry and intact Lungs are clear and equal bilaterally. Heart is regular tachycardic Abdomen is soft mild diffuse tenderness. No guarding or rebound Extremities are unremarkable. Skin is warm and dry. No focal neurologic deficit. Remainder of exam is unremarkable. Emergency Department Course and Treatment: Patient is given IV fluids, Dilaudid, Zofran. EKG sinus tachycardia rate of 118 with no acute ischemic changes. CBC shows a normal white count. Chemistries unremarkable other than potassium 3.0, glucose 258. Troponin is negative. CT abdomen pelvis shows there is a interval decrease in hepatic size when compared to the previous study. Increased feces in the right colon with fluid density within the transverse and ascending colon. Interval hysterectomy. No other major interval change. Patient is feeling much improved on reevaluation. She remains tachycardic and was given additional IV fluids. Patient states her baseline heart rate is 115 at rest. She is feeling much improved and is tolerating p.o. on reevaluation. She is comfortable with discharge home. She scheduled to see her orthopedic surgeon tomorrow. She is given prescription for ODT Zofran. Advised return to ED if worsening complaints. Disposition: Discharge home Impression: Vomiting, recent cervical fusion This note was generated with [employer] software. It may contain incorrect words, spelling, and punctuation that were not noted in review of the chart prior to signing ED Disposition - Plan for ED Patient: Referrals: Karl Pichardo MD [Primary Care Provider] -
[2020-10-05 16:37] LABS: ALB/GLOB Ratio 0.8 RATIO (0.9-2.4); AST(SGOT) 73 U/L (15-37); Alanine Aminotransfer ALT/SGPT 49 U/L (13-56); Albumin, Serum 3.6 g/dL (3.2-5.0); Alkaline Phosphatase 165 U/L (45-117); Anion Gap 14 (5-15); BUN 11 mg/dL (7-18); BUN/Creat Ratio 13.2 RATIO (10-20); Calcium,Total 9.7 mg/dL (8.5-10.1); Chloride 100 mmol/L (98-107); Creatinine, Serum 0.83 mg/dL (0.55-1.02); EST Glomerular Filtration Rate 76 mL/min (>60); Est Glom Filt Rate - Afr Amer 92 mL/min (>60); Estimated Creatinine Clearance 66.91 ml/min; Globulin 4.7 g/dL (2.2-4.2); Glucose 258 mg/dL (74-106); Protein, Total 8.3 g/dL (6.4-8.2); Sodium Level 135 mmol/L (136-145)
--- NOTE | 2020-10-05 17:22 | ED.RN ---
this rn & eyal blue rn both attempted iv access on the patient unsuccessfully. per dr. willingham no need to keep trying. bloodwork was obtained.
[2020-10-05] MEDS: 0.9% Normal Saline 1,000 ML 999 ML IV (17:31)
--- NOTE | 2020-10-05 18:13 | ED.DEP ---
ED Disposition - Plan for ED Patient: Instructions: ED Vomiting (Adult) Prescriptions: Ondansetron [Zofran Odt] 8 mg PO Q8H PRN PRN #20 tab PRN Reason: Nausea Prescription Printed Referrals: Karl Pichardo MD [Primary Care Provider] - Franco Lopez DO [STAFF PHYSICIAN] -
== END 2020-10-05 18:55 | disposition home or self-care (01) ==
PROVIDERS: Emergency Provider Emergency Medicine; PCP Family Medicine
DX: R11.2 Nausea with vomiting, unspecified (principal); Z98.1 Arthrodesis status; J45.909 Unspecified asthma, uncomplicated; I10 Essential (primary) hypertension; K21.9 Gastro-esophageal reflux disease without esophagitis
CPT/HCPCS: 74176; 80053; 84484; 85025; 87426; 93005; 96361; 96374; 96375; 99284; J7030; A4216; J2405

== ENCOUNTER → 2020-12-22 16:03 | Outpatient (CLI) | payer MEDICAID, SELFPAY ==
[2020-10-05 15:40] VITALS: BMI 31.8
[2020-12-22 17:19] LABS: Absolute Neutrophil Count 4.9 X10^3/uL (2.0-7.7); Basophil# 0.05 X10^3/uL; Basophil% 0.6 % (0-1); Eosinophil# 0.12 X10^3/uL; Eosinophils% 1.4 % (0-5); Hematocrit 39.9 % (37-47); Hemoglobin 12.7 g/dL (12.0-15.0); Lymphocyte % 31.9 % (19-41); Mean Corp Hgb Conc 31.8 g/dL (32-36); Mean Corpuscular Hgb 29.7 pg (27.0-32.0); Mean Corpuscular Volume 93.4 fL (81-99); Mean Platelet Vol. 9.2 fl (6.2-12.0); Monocyte# 0.65 X10^3/uL; Monocyte% 7.7 % (0-10); NRBC Flagged by Analyzer 0 % (0-5); Neutrophil # 4.92 X10^3/uL (2.7-7.7); Neutrophil % 58.2 % (47-70); Platelet Count 390 K/mm3 (150-450); RBC Distribution Width CV 12.5 % (11.6-14.6); RBC Distribution Width SD 42.6 fl (35.1-43.9); Red Blood Count 4.27 M/mm3 (4.2-5.4); White Blood Count 8.5 K/mm3 (4.4-11.0)
[2020-12-22 17:36] LABS: ALB/GLOB Ratio 0.9 RATIO (0.9-2.4); AST(SGOT) 115 U/L (15-37); Alanine Aminotransfer ALT/SGPT 81 U/L (13-56); Albumin, Serum 3.3 g/dL (3.2-5.0); Alkaline Phosphatase 121 U/L (45-117); Anion Gap 9 (5-15); BUN 10 mg/dL (7-18); BUN/Creat Ratio 12.6 RATIO (10-20); Calcium,Total 8.6 mg/dL (8.5-10.1); Chloride 102 mmol/L (98-107); Creatinine, Serum 0.79 mg/dL (0.55-1.02); EST Glomerular Filtration Rate 80 mL/min (>60); Est Glom Filt Rate - Afr Amer 97 mL/min (>60); Globulin 3.8 g/dL (2.2-4.2); Glucose 188 mg/dL (74-106); Potassium 3.6 mmol/L (3.5-5.1); Protein, Total 7.1 g/dL (6.4-8.2); Sodium Level 137 mmol/L (136-145)
== END ==
PROVIDERS: PCP Family Medicine; Referring Provider Family Medicine; Visit Provider Family Medicine
DX: E11.9 Type 2 diabetes mellitus without complications (principal); I10 Essential (primary) hypertension
CPT/HCPCS: 36415; 80053; 85025

== ENCOUNTER 2020-12-31 13:49 | Emergency (ER) | payer MEDICAID, SELFPAY ==
[2020-12-27 13:58] VITALS: BMI 31.8
[2020-12-31 13:51] VITALS: BP 188/103; PULSE 87; RESP 17; TEMP 36.2; O2SAT 100; BMI 27.6
[2020-12-31 13:53] VITALS: BP 188/103; PULSE 87; RESP 17; TEMP 36.2; O2SAT 100
--- NOTE | 2020-12-31 14:41 | ED.VIS.DENTA ---
HPI History of Present Illness Chief Complaint: Dental Detail of Chief Complaint: Patient with dental pain to the left lower molar for over a year Informant: patient Narrative Narrative: Patient has been seen by her dentist for dental pain and was on clindamycin starting December 22. Patient states that she has had increased pain over the last 24 hours to the left lower molar. She denies fevers. Patient denies any trauma to her teeth. Patient states that she think she needs a root canal. Prior similar symptoms: Yes PFSH PFSH Medical History (Updated 12/31/20 @ 14:[address] Gorge Hoffman, DO) Asthma Asthma Bronchitis Chest pain Contusion of right ankle Contusion of right foot Depressed Diabetes mellitus type II, controlled Dyspnea on exertion Essential hypertension Gastroparesis due to secondary diabetes GERD (gastroesophageal reflux disease) GI bleed Hemorrhoids Hyperlipidemia Nausea & vomiting Near syncope Orthostatic hypotension Pneumonia Positive PPD, treated RSD (reflex sympathetic dystrophy) Screening for colon cancer Shoulder pain Statin intolerance Strain of unspecified muscle, fascia and tendon at shoulder and upper arm level, right arm, initial encounter Home Medications duloxetine 60 mg PO BID 11/30/13 [History Last Taken 08/19/19] albuterol sulfate 2 puff INHALATION Q4H PRN PRN 03/04/14 [History Last Taken 08/15/19] lisinopril 20 mg-hydrochlorothiazide 25 mg tablet 1 tab PO QHS tab 05/03/19 [History Last Taken 08/19/19] lorazepam 1 mg PO TID PRN PRN 05/09/19 [History Last Taken 08/17/19] ondansetron HCl 4 mg PO Q6H PRN PRN 08/19/19 [History Last Taken 08/18/19] ibuprofen 800 mg tablet 800 mg PO BID PRN PRN tab 01/04/20 [History Last Taken Unknown] omeprazole 20 mg capsule,delayed release 20 mg PO DAILY cap 01/04/20 [History Last Taken Unknown] estradiol 1 mg tablet 1.5 mg PO DAILY tab 01/06/20 [History Last Taken Unknown] budesonide-formoterol HFA 160 mcg-4.5 mcg/actuation aerosol inhaler 2 puff INHALATION BID #10.2 g 01/07/20 [Rx Last Taken Unknown] ezetimibe 10 mg tablet 10 mg PO DAILY #90 tab 05/09/20 [Rx Last Taken Unknown] cyanocobalamin (vitamin B-12) 300 mcg SL DAILY 07/29/20 [History Last Taken Unknown] oxycodone-acetaminophen 1 tab PO Q6H PRN PRN 07/29/20 [History Last Taken Unknown] gabapentin 100 mg PO DAILY 08/17/20 [History Last Taken Unknown] PNV cmb#95-ferrous fumarate-FA 1 ea PO DAILY 10/04/20 [History Last Taken Unknown] diphenhydramine HCl 25 mg PO DAILY 10/04/20 [History Last Taken Unknown] docusate sodium 100 mg PO DAILY 10/04/20 [History Last Taken Unknown] ondansetron 8 mg PO Q8H PRN PRN #20 tab 10/05/20 [Rx Last Taken Unknown] azithromycin 250 mg PO DAILY #4 tablet 12/31/20 [Rx Last Taken Unknown] oxycodone-acetaminophen 1 tab PO Q6H PRN PRN 3 Days #12 tablet 12/31/20 [Rx Last Taken Unknown] Allergy/AdvReac Type Severity Reaction Status Date / Time adalimumab [From Humira] Allergy Unknown Verified 12/31/20 13:50 amoxicillin trihydrate Allergy Unknown Verified 12/31/20 13:50 [From Augmentin] codeine Allergy Itching Verified 12/31/20 13:50 etanercept [From Enbrel] Allergy Unknown Verified 12/31/20 13:50 leflunomide [From Arava] Allergy Other Verified 12/31/20 13:50 metoprolol tartrate Allergy Unknown Verified 12/31/20 13:50 [From Lopressor] morphine sulfate Allergy Unknown Verified 12/31/20 13:50 [From Embeda] naltrexone HCl [From Embeda] Allergy Unknown Verified 12/31/20 13:50 oxymorphone [Oxymorphone] Allergy Unknown Verified 12/31/20 13:50 pioglitazone HCl [From Actos] Allergy Other Verified 12/31/20 13:50 pneumococcal 23-valent Allergy Unknown Verified 12/31/20 13:50 polysacchari [From Pneumovax 23] potassium clavulanate Allergy Unknown Verified 12/31/20 13:50 [From Augmentin] Trsbpmf-Fal-Qrx Reductase Allergy Unknown Verified 12/31/20 13:50 Inhibitor sulfamethoxazole Allergy Anaphylaxis Verified 12/31/20 13:50 [From Bactrim] telithromycin [From Ketek] Allergy Unknown Verified 12/31/20 13:50 tramadol HCl [From Ultram] Allergy Unknown Verified 12/31/20 13:50 trimethoprim [From Bactrim] Allergy Anaphylaxis Verified 12/31/20 13:50 Family History Father Diabetes Hypertension Mother Diabetes Hypertension Other Cancer Surgical History Hx of shoulder surgery Social History (Updated 01/07/20 @ 13:[address] Moises Ospina MD) Smoking Status: Never smoker alcohol intake: current alcohol intake frequency: 0-2 drinks per day Alcohol type: hard liquor ROS ROS ED Constitutional Constitutional ED: Reports systems reviewed and no addt'l complaints, except as documented; Denies body ache(s), change in weight or chills Eyes Eyes: Denies acute decrease in peripheral vision, change in vision, double vision or loss of vision ENT ENT ED: Reports none and other Details: Left lower molar dental pain ; Denies ear pain, lip swelling, loss taste/smell, neck pain, otalgia or sore throat Cardiovascular Cardiovascular: Reports none; Denies abdominal pain, chest pain with activity, leg edema, lightheadedness, palpitations, rapid heart rate or syncope Respiratory/Chest Respiratory/Chest: Reports none; Denies change in mental status, dry cough, dyspnea, hemoptysis, shortness of breath at rest or shortness of breath with exertion Gastrointestinal Gastrointestinal: Reports none; Denies abdominal pain, change in stool character, diarrhea, hematemesis, hematochezia, melena, rectal bleeding or vomiting Genitourinary Genitourinary ED: Reports none; Denies abdominal discomfort, anuria, dysuria, genital pain or polyuria Musculoskeletal Musculoskeletal: Reports none; Denies arthralgias, back pain, difficulty walking, extremity pain, muscle weakness or myalgias Integumentary Reports none; Denies abscess or rash Neurologic Neurologic: Reports none; Denies abnormal gait, confusion, focal weakness, frequent falls, headache(s), loss of vision, numbness, paresthesias, radicular pain, vertigo or weakness Psychiatric Psychiatric: Reports systems reviewed and no addt'l complaints, except as documented and none; Denies behavioral changes, confusion, difficulty concentrating, hallucinations, suicidal ideation, tactile hallucinations or visual hallucinations Endocrine Endocrinology: Denies none, cold intolerance, excessive sweating, fatigue or heat intolerance Hematologic/Lymphatic Hematologic/Lymphatic: Reports none; Denies anemia, easy bleeding or easy bruising Allergic/Immunologic Allergic/Immunologic ED: Denies as per HPI, none, lip swelling, mouth swelling, throat swelling, tongue swelling or hives EXAM Physical Exam Const Vital Signs: 12/31/20 13:51 Temperature 97.2 F L Temperature Source Temporal Pulse Rate 87 Respiratory Rate 17 Blood Pressure 188/103 H Blood Pressure Mean 131 Pulse Ox 100 Oxygen Delivery Method Room Air Positive well nourished and well developed General Appearance ED: well developed and NAD HEENT Reports TM's clear and moist mucous membranes HEENT Narrative: Patient has tenderness to palpation over the left lower second molar. No gingival erythema or abscess noted. No facial cellulitis noted. No adenopathy. No trismus. normocephalic and atraumatic; Negative for trauma or tenderness Tympanic Membrane ED: Yes TM's clear Eyes PERRL and EOMs intact bilaterally General Eye ED: Negative for pale conjunctiva or scleral icterus Neck no lymphadenopathy, supple and no JVD General: Negative for tenderness Chest Wall inspection of chest normal and palpation of chest normal Chest: Negative for tenderness Resp normal respiratory effort and clear to auscultation bilaterally Effort and Inspection: Negative for respiratory distress or pain with movement Auscultation: Negative for rhonchi, wheezes or diminished lung sounds Cardio regular rate, regular rhythm, S1 normal heart sound, S2 normal heart sound and no murmurs Peripheral Pulses: pulses 2+ throughout GI normal to inspection, nondistended, normoactive bowel sounds, soft to palpation, non-tender, non-distended and no masses Back/Spine no CVA tenderness and no thoracic nor lumbar tenderness Extremity normal to inspection General Extremety ED: Negative for edema General Extremity: Negative for edema Neuro oriented x3, CN's II-XII intact bilaterally, no sensory deficits noted and gait normal Sensorium / Orientation: awake, alert, oriented to person, oriented to place and oriented to time Motor Exam: strength 5/5 throughout and strength abnormal Psych mental status grossly normal Skin no rashes or lesions noted and no wounds MDM MDM MDM Narrative Medical decision making narrative: Patient will be treated with Zithromax and prescription for oxycodone. She is advised to follow-up with her dentist at the earliest convenience. Discharge Plan Triage Chief Complaint: Dental ED Provider: Gorge Hoffman Dx/Rx/DC Orders Clinical Impression: Pain, dental Instructions: ED Dental Pain Prescriptions: New oxycodone-acetaminophen [oxycodone-acetaminophen] 1 TABLET tablet 1 tab PO Q6H PRN PRN (Reason: Pain) 3 Days Qty: 12 RF: 0 azithromycin [azithromycin] 250 MG tablet 250 mg PO DAILY Qty: 4 RF: 0 No Action ibuprofen 800 mg tablet 800 mg PO BID PRN PRN (Reason: pain/fever) RF: 0 estradiol 1 mg tablet 1.5 mg PO DAILY RF: 0 budesonide-formoterol [Symbicort] 160-4.5 mcg/actuation HFA aerosol inhaler 2 puff inhalation BID Qty: 10.2 RF: 3 duloxetine 60 MG capsule 60 mg PO BID RF: 0 albuterol sulfate 1 PUFF inhaler 2 puff INHALATION Q4H PRN PRN (Reason: sob) RF: 0 omeprazole 20 mg capsule,delayed release(DR/EC) 20 mg PO DAILY RF: 0 lisinopril-hydrochlorothiazide 20-25 mg tablet 1 tab PO QHS RF: 0 lorazepam 1 MG tablet 1 mg PO TID PRN PRN (Reason: Anxiety) RF: 0 ondansetron HCl 4 MG tablet 4 mg PO Q6H PRN PRN (Reason: Nausea) RF: 0 cyanocobalamin (vitamin B-12) 100 MCG tablet 300 mcg SL DAILY RF: 0 oxycodone-acetaminophen 1 TABLET tablet 1 tab PO Q6H PRN PRN (Reason: Pain Score 1-10) RF: 0 gabapentin 100 MG capsule 100 mg PO DAILY RF: 0 diphenhydramine HCl 25 MG capsule 25 mg PO DAILY RF: 0 docusate sodium 100 MG capsule 100 mg PO DAILY RF: 0 PNV cmb#95-ferrous fumarate-FA 1 EACH tablet 1 ea PO DAILY RF: 0 ondansetron 4 MG tablet 8 mg PO Q8H PRN PRN (Reason: Nausea) Qty: 20 RF: 0 ezetimibe 10 mg tablet 10 mg PO DAILY Qty: 90 RF: 3 Primary Care Provider: Karl Pichardo Referrals: Karl Pichardo MD [Primary Care Provider] - Activity Restrictions/Additional Instructions: See your dentist at the earliest possible time Disposition Disposition: Home, self care
[2020-12-31] MEDS: Azithromycin 250 MG Tablet 500 MG PO (14:55)
[2020-12-31 15:02] VITALS: BP 174/92; PULSE 94; RESP 16; O2SAT 98
[2020-12-31] MEDS: oxyCODONE 5 MG Tablet PO (15:03)
== END 2020-12-31 15:09 | disposition home or self-care (01) ==
PROVIDERS: Emergency Provider Emergency Medicine; PCP Family Medicine
DX: K08.89 Other specified disorders of teeth and supporting structures (principal)
CPT/HCPCS: 99283

== ENCOUNTER 2021-01-03 22:40 | Emergency (ER) | payer MEDICAID, SELFPAY ==
[2021-01-03 22:40] VITALS: BP 95/71; PULSE 132; RESP 22; TEMP 36.3; O2SAT 99; BMI 26.3
--- NOTE | 2021-01-03 23:07 | EDS_ITS ---
HPI History of Present Illness Chief Complaint: Dental Narrative Narrative: Patient presents with left lower dental pain. She stated she has had pain after crown was placed behind it and pushing on the tooth for about a year. She is scheduled to have a root canal on this tooth tomorrow. She is on clarithromycin and Flagyl at this time. This was started on January 02 yesterday. She stopped the azithromycin and was on clindamycin earlier in December but these were also stopped. The new medication antibiotics were given by her dentist. She has been using intermittent Percocet for pain. It radiates into her left jaw. [facility] Medical History Asthma Asthma Bronchitis Chest pain Contusion of right ankle Contusion of right foot Depressed Diabetes mellitus type II, controlled Dyspnea on exertion Essential hypertension GERD (gastroesophageal reflux disease) GI bleed Hemorrhoids Hyperlipidemia Nausea & vomiting Near syncope Orthostatic hypotension Pneumonia Positive PPD, treated RSD (reflex sympathetic dystrophy) Shoulder pain Statin intolerance Strain of unspecified muscle, fascia and tendon at shoulder and upper arm level, right arm, initial encounter Home Medications duloxetine 60 mg PO BID 11/30/13 [History Last Taken 08/19/19] albuterol sulfate 2 puff INHALATION Q4H PRN PRN 03/04/14 [History Last Taken 08/15/19] lisinopril 20 mg-hydrochlorothiazide 25 mg tablet 1 tab PO QHS tab 05/03/19 [History Last Taken 08/19/19] lorazepam 1 mg PO TID PRN PRN 05/09/19 [History Last Taken 08/17/19] ondansetron HCl 4 mg PO Q6H PRN PRN 08/19/19 [History Last Taken 08/18/19] ibuprofen 800 mg tablet 800 mg PO BID PRN PRN tab 01/04/20 [History Last Taken Unknown] omeprazole 20 mg capsule,delayed release 20 mg PO DAILY cap 01/04/20 [History Last Taken Unknown] estradiol 1 mg tablet 1.5 mg PO DAILY tab 01/06/20 [History Last Taken Unknown] budesonide-formoterol HFA 160 mcg-4.5 mcg/actuation aerosol inhaler 2 puff INHALATION BID #10.2 g 01/07/20 [Rx Last Taken Unknown] ezetimibe 10 mg tablet 10 mg PO DAILY #90 tab 05/09/20 [Rx Last Taken Unknown] cyanocobalamin (vitamin B-12) 300 mcg SL DAILY 07/29/20 [History Last Taken Unknown] oxycodone-acetaminophen 1 tab PO Q6H PRN PRN 07/29/20 [History Last Taken Unknown] gabapentin 100 mg PO DAILY 08/17/20 [History Last Taken Unknown] PNV cmb#95-ferrous fumarate-FA 1 ea PO DAILY 10/04/20 [History Last Taken Unknown] diphenhydramine HCl 25 mg PO DAILY 10/04/20 [History Last Taken Unknown] docusate sodium 100 mg PO DAILY 10/04/20 [History Last Taken Unknown] ondansetron 8 mg PO Q8H PRN PRN #20 tab 10/05/20 [Rx Last Taken Unknown] azithromycin 250 mg PO DAILY #4 tablet 12/31/20 [Rx Last Taken Unknown] clarithromycin 500 mg PO BID 01/03/21 [History Last Taken Unknown] clindamycin HCl 300 mg PO TID 01/03/21 [History Last Taken Unknown] metronidazole 500 mg PO BID 01/03/21 [History Last Taken Unknown] Allergy/AdvReac Type Severity Reaction Status Date / Time adalimumab [From Humira] Allergy Unknown Verified 01/03/21 22:48 amoxicillin trihydrate Allergy Unknown Verified 01/03/21 22:48 [From Augmentin] codeine Allergy Itching Verified 01/03/21 22:48 etanercept [From Enbrel] Allergy Unknown Verified 01/03/21 22:48 leflunomide [From Arava] Allergy Other Verified 01/03/21 22:48 metoprolol tartrate Allergy Unknown Verified 01/03/21 22:48 [From Lopressor] morphine sulfate Allergy Unknown Verified 01/03/21 22:48 [From Embeda] naltrexone HCl [From Embeda] Allergy Unknown Verified 01/03/21 22:48 oxymorphone [Oxymorphone] Allergy Unknown Verified 01/03/21 22:48 pioglitazone HCl [From Actos] Allergy Other Verified 01/03/21 22:48 pneumococcal 23-valent Allergy Unknown Verified 01/03/21 22:48 polysacchari [From Pneumovax 23] potassium clavulanate Allergy Unknown Verified 01/03/21 22:48 [From Augmentin] Oarjyux-Ady-Cns Reductase Allergy Unknown Verified 01/03/21 22:48 Inhibitor sulfamethoxazole Allergy Anaphylaxis Verified 01/03/21 22:48 [From Bactrim] telithromycin [From Ketek] Allergy Unknown Verified 01/03/21 22:48 tramadol HCl [From Ultram] Allergy Unknown Verified 01/03/21 22:48 trimethoprim [From Bactrim] Allergy Anaphylaxis Verified 01/03/21 22:48 Family History Father Diabetes Hypertension Mother Diabetes Hypertension Other Cancer Surgical History Hx of shoulder surgery Social History Smoking Status: Never smoker alcohol intake: current alcohol intake frequency: 0-2 drinks per day Alcohol type: hard liquor ROS ROS ED ROS Narrative ROS General: Denies fever, chills, sweats Eyes: Denies visual changes, blurred vision, double vision ENT: See HPI Cardiovascular: Denies chest pain, palpitations, heart racing Respiratory: Denies dyspnea, cough, sputum, dyspnea on exertion, orthopnea,PND GI: Denies abdominal pain, nausea, vomiting, diarrhea, constipation, melena : Denies dysuria, hematuria, frequency Musculoskeletal: Denies myalgias, arthralgias, neck pain, back pain Skin: Denies rash, abscess, abrasions Neuro: Denies headache, weakness, paresthesia Psych: Denies depression, anxiety Endo: Denies polyuria, polydipsia, polyphagia Heme: Denies easy bruising, easy bleeding, lymphadenopathy Allergy: Denies hives, swelling EXAM Physical Exam Narrative Exam Narrative: Vital signs reviewed General: Well-nourished well-developed Head: Normocephalic atraumatic Eyes: Pupils equal round and reactive to light extraocular movements intact ENT: TMs clear no hemotympanum no trauma. She has dental tenderness in her left premolar. No swelling to the gumline or abscess noted. No facial swelling. No ANUG or Cheo's angina Neck: Nontender full range of motion Cardiovascular: Regular rate rhythm no murmurs normal S1-S2 Respiratory: No distress clear to auscultation bilaterally chest nontender Abdomen: Soft nontender nondistended normal bowel sounds no masses Back: Nontender no CVA tenderness Extremities: Nontender active range of motion ?4 extremities no trauma Skin: Normal color no trauma Neuro alert oriented cranial nerves II through XII intact normal strength sensation reflexes Const Vital Signs: 01/03/21 22:40 01/03/21 23:27 Temperature 97.4 F L Temperature Source Temporal Pulse Rate 132 H 113 H Respiratory Rate 22 H 16 Blood Pressure 95/71 166/114 H Blood Pressure Mean 79 131 Pulse Ox 99 98 Oxygen Delivery Method Room Air Room Air MDM MDM MDM Narrative Medical decision making narrative: Patient given a dose of hydromorphone for her severe pain. Given a dose of Zofran. On reevaluation pain is completely gone. I feel she can be discharged to follow-up with her dentist tomorrow. Discharge Plan Triage Chief Complaint: Dental ED Provider: Jordan Rankin Dx/Rx/DC Orders Prescriptions: No Action ibuprofen 800 mg tablet 800 mg PO BID PRN PRN (Reason: pain/fever) RF: 0 estradiol 1 mg tablet 1.5 mg PO DAILY RF: 0 budesonide-formoterol [Symbicort] 160-4.5 mcg/actuation HFA aerosol inhaler 2 puff inhalation BID Qty: 10.2 RF: 3 duloxetine 60 MG capsule 60 mg PO BID RF: 0 albuterol sulfate 1 PUFF inhaler 2 puff INHALATION Q4H PRN PRN (Reason: sob) RF: 0 omeprazole 20 mg capsule,delayed release(DR/EC) 20 mg PO DAILY RF: 0 lisinopril-hydrochlorothiazide 20-25 mg tablet 1 tab PO QHS RF: 0 lorazepam 1 MG tablet 1 mg PO TID PRN PRN (Reason: Anxiety) RF: 0 ondansetron HCl 4 MG tablet 4 mg PO Q6H PRN PRN (Reason: Nausea) RF: 0 cyanocobalamin (vitamin B-12) 100 MCG tablet 300 mcg SL DAILY RF: 0 oxycodone-acetaminophen 1 TABLET tablet 1 tab PO Q6H PRN PRN (Reason: Pain Score 1-10) RF: 0 gabapentin 100 MG capsule 100 mg PO DAILY RF: 0 diphenhydramine HCl 25 MG capsule 25 mg PO DAILY RF: 0 docusate sodium 100 MG capsule 100 mg PO DAILY RF: 0 PNV cmb#95-ferrous fumarate-FA 1 EACH tablet 1 ea PO DAILY RF: 0 ondansetron 4 MG tablet 8 mg PO Q8H PRN PRN (Reason: Nausea) Qty: 20 RF: 0 azithromycin [azithromycin] 250 MG tablet 250 mg PO DAILY Qty: 4 RF: 0 clindamycin HCl 300 mg Capsule 300 mg PO TID RF: 0 clarithromycin 500 mg Tablet 500 mg PO BID RF: 0 metronidazole 500 mg Tablet 500 mg PO BID RF: 0 ezetimibe 10 mg tablet 10 mg PO DAILY Qty: 90 RF: 3 Primary Care Provider: Karl Pichardo
[2021-01-03] MEDS: HYDROmorphone 1 MG/ML Syringe IV (23:18)
[2021-01-03] MEDS: Ondansetron 4 MG/2 ML Vial IV (23:18)
[2021-01-03 23:27] VITALS: BP 166/114; PULSE 113; RESP 16; O2SAT 98
== END 2021-01-04 00:17 | disposition home or self-care (01) ==
PROVIDERS: Emergency Provider Emergency Medicine; PCP Family Medicine
DX: K08.89 Other specified disorders of teeth and supporting structures (principal); J45.909 Unspecified asthma, uncomplicated; K21.9 Gastro-esophageal reflux disease without esophagitis; I10 Essential (primary) hypertension; Z79.899 Other long term (current) drug therapy
CPT/HCPCS: 96374; 96375; 99283; J2405

== ENCOUNTER → 2021-01-30 14:12 | Outpatient (CLI) | payer MEDICAID, SELFPAY ==
[2021-01-03 22:40] VITALS: BMI 26.3
[2021-01-30 18:17] LABS: ALB/GLOB Ratio 0.9 RATIO (0.9-2.4); AST(SGOT) 58 U/L (15-37); Alanine Aminotransfer ALT/SGPT 50 U/L (13-56); Albumin, Serum 3.5 g/dL (3.2-5.0); Alkaline Phosphatase 105 U/L (45-117); Anion Gap 10 (5-15); BUN 12 mg/dL (7-18); BUN/Creat Ratio 17.4 RATIO (10-20); Chloride 100 mmol/L (98-107); Creatinine, Serum 0.69 mg/dL (0.55-1.02); EST Glomerular Filtration Rate 94 mL/min (>60); Est Glom Filt Rate - Afr Amer 114 mL/min (>60); Globulin 3.7 g/dL (2.2-4.2); Glucose 172 mg/dL (74-106); Potassium 3.9 mmol/L (3.5-5.1); Protein, Total 7.2 g/dL (6.4-8.2); Sodium Level 137 mmol/L (136-145)
== END ==
PROVIDERS: PCP Family Medicine; Referring Provider Family Medicine; Visit Provider Family Medicine
DX: R74.8 Abnormal levels of other serum enzymes (principal)
CPT/HCPCS: 36415; 80053

== ENCOUNTER 2021-05-02 18:43 | Emergency (ER) | payer OTHER, MEDICAID, SELFPAY ==
[2021-05-02 18:44] VITALS: BP 148/101; PULSE 95; RESP 14; TEMP 37.2; O2SAT 95; BMI 28.6
--- NOTE | 2021-05-02 19:38 | EDS_ITS ---
HPI History of Present Illness HPI Narrative: Patient presents with right shoulder pain that began today. Patient states she had a shoulder surgery today in [place]. Patient states she had a nerve block done at that time. Patient states that the nerve block was supposed to work for 1 to 3 days. Patient states it wore off on the way home. Patient states the pain has been severe. Patient states she took 2 Percocet with some relief. Patient denies any new trauma or injury. Patient denies any paresthesias or weakness. Chief Complaint: Upper Extremity Injury Informant: patient Onset/Context/Timing Onset: Today Context: Gradual Onset Timing: Continuous Quality of Pain: Sharp, Aching and Throbbing Current Severity: 8/10 Maximum Severity: 10/10 Worsened by: Movement Relieved by: Nothing Associated Symptoms Associated Symptoms: Negative for Parasthesia, Weakness and Loss of Funtion PFSH PFS Medical History Asthma Asthma Bronchitis Chest pain Contusion of right ankle Contusion of right foot Depressed Diabetes mellitus type II, controlled Dyspnea on exertion Essential hypertension GERD (gastroesophageal reflux disease) GI bleed Hemorrhoids Hyperlipidemia Nausea & vomiting Near syncope Orthostatic hypotension Pneumonia Positive PPD, treated RSD (reflex sympathetic dystrophy) Shoulder pain Statin intolerance Strain of unspecified muscle, fascia and tendon at shoulder and upper arm level, right arm, initial encounter Home Medications duloxetine 60 mg PO BID 11/30/13 [History Last Taken 08/19/19] albuterol sulfate 2 puff INHALATION Q4H PRN PRN 03/04/14 [History Last Taken 08/15/19] lisinopril 20 mg-hydrochlorothiazide 25 mg tablet 1 tab PO QHS tab 05/03/19 [History Last Taken 08/19/19] lorazepam 1 mg PO TID PRN PRN 05/09/19 [History Last Taken 08/17/19] ondansetron HCl 4 mg PO Q6H PRN PRN 08/19/19 [History Last Taken 08/18/19] ibuprofen 800 mg tablet 800 mg PO BID PRN PRN tab 01/04/20 [History Last Taken Unknown] omeprazole 20 mg capsule,delayed release 20 mg PO DAILY cap 01/04/20 [History Last Taken Unknown] estradiol 1 mg tablet 1.5 mg PO DAILY tab 01/06/20 [History Last Taken Unknown] budesonide-formoterol HFA 160 mcg-4.5 mcg/actuation aerosol inhaler 2 puff INHALATION BID #10.2 g 01/07/20 [Rx Last Taken Unknown] cyanocobalamin (vitamin B-12) 300 mcg SL DAILY 07/29/20 [History Last Taken Unknown] oxycodone-acetaminophen 1 tab PO Q6H PRN PRN 07/29/20 [History Last Taken Unknown] gabapentin 100 mg PO DAILY 08/17/20 [History Last Taken Unknown] PNV cmb#95-ferrous fumarate-FA 1 ea PO DAILY 10/04/20 [History Last Taken Unknown] diphenhydramine HCl 25 mg PO DAILY 10/04/20 [History Last Taken Unknown] docusate sodium 100 mg PO DAILY 10/04/20 [History Last Taken Unknown] ondansetron 8 mg PO Q8H PRN PRN #20 tab 10/05/20 [Rx Last Taken Unknown] azithromycin 250 mg PO DAILY #4 tablet 12/31/20 [Rx Last Taken Unknown] clarithromycin 500 mg PO BID 01/03/21 [History Last Taken Unknown] metronidazole 500 mg PO BID 01/03/21 [History Last Taken Unknown] ezetimibe 10 mg tablet 10 mg PO DAILY #90 tab 04/19/21 [Rx Last Taken Unknown] Allergy/AdvReac Type Severity Reaction Status Date / Time adalimumab [From Humira] Allergy Unknown Verified 05/02/21 18:48 amoxicillin trihydrate Allergy Unknown Verified 05/02/21 18:48 [From Augmentin] codeine Allergy Itching Verified 05/02/21 18:48 etanercept [From Enbrel] Allergy Unknown Verified 05/02/21 18:48 leflunomide [From Arava] Allergy Other Verified 05/02/21 18:48 metoprolol tartrate Allergy Unknown Verified 05/02/21 18:48 [From Lopressor] morphine sulfate Allergy Unknown Verified 05/02/21 18:48 [From Embeda] naltrexone HCl [From Embeda] Allergy Unknown Verified 05/02/21 18:48 oxymorphone [Oxymorphone] Allergy Unknown Verified 05/02/21 18:48 pioglitazone HCl [From Actos] Allergy Other Verified 05/02/21 18:48 pneumococcal 23-valent Allergy Unknown Verified 05/02/21 18:48 polysacchari [From Pneumovax 23] potassium clavulanate Allergy Unknown Verified 05/02/21 18:48 [From Augmentin] Drmeuuo-Xxk-Phl Reductase Allergy Unknown Verified 05/02/21 18:48 Inhibitor Sulfa (Sulfonamide Allergy Anaphylaxis Verified 05/02/21 18:48 Antibiotics) sulfamethoxazole Allergy Anaphylaxis Verified 05/02/21 18:48 [From Bactrim] telithromycin [From Ketek] Allergy Unknown Verified 05/02/21 18:48 tramadol HCl [From Ultram] Allergy Unknown Verified 05/02/21 18:48 trimethoprim [From Bactrim] Allergy Anaphylaxis Verified 05/02/21 18:48 Family History Father Diabetes Hypertension Mother Diabetes Hypertension Other Cancer Surgical History Hx of shoulder surgery Social History Smoking Status: Never smoker alcohol intake: current alcohol intake frequency: 0-2 drinks per day Alcohol type: hard liquor ROS ROS ED Constitutional Constitutional ED: Denies chills or fever(s) Eyes Eyes: Denies blurry vision or change in vision ENT ENT ED: Denies rhinorrhea or sore throat Cardiovascular Cardiovascular: Denies chest pain or palpitations Respiratory/Chest Respiratory/Chest: Denies cough or dyspnea Gastrointestinal Gastrointestinal: Denies nausea or vomiting Genitourinary Genitourinary ED: Denies dysuria or hematuria Musculoskeletal Musculoskeletal: Denies back pain or neck pain Integumentary Denies abscess or rash Neurologic Neurologic: Denies headache(s) or weakness Allergic/Immunologic Allergic/Immunologic ED: Denies mouth swelling or urticaria EXAM Physical Exam Const Vital Signs: 05/02/21 18:44 Temperature 98.9 F Temperature Source Oral Pulse Rate 95 Respiratory Rate 14 Blood Pressure 148/101 H Blood Pressure Mean 116 Pulse Ox 95 Oxygen Delivery Method Room Air Positive well nourished and well developed General Appearance ED: well developed HEENT Reports moist mucous membranes Neck supple Extremity Extremity Narrative: There is diffuse tenderness over the right shoulder. Dressing is in place. There is no deformity noted. Range of motion was limited in all motions secondary to pain. Sensation was intact to light touch in the radial, median, and ulnar areas. Strength is 5/5 in the radial, median, ulnar ulnar areas. Radial pulses are equal bilaterally. Capillary refill was less than 2 seconds in all digits. Neuro oriented x3, CN's II-XII intact bilaterally, moves all extremities, no focal motor deficits and no sensory deficits noted Sensorium / Orientation: alert MDM MDM MDM Narrative Medical decision making narrative: Patient was given a dose of Dilaudid here. Patient states she can take that as long as she gets Benadryl with that. Donato orosco was given a dose of Benadryl with it. Patient was instructed to follow-up with her orthopedic surgeon as scheduled. Patient was instructed use ice to the area. Patient was instructed return if worse in any way. Patient understood and was agreeable with the plan. All questions were answered. Discharge Plan Triage Chief Complaint: Upper Extremity Injury ED Provider: Andrae Sorensen Dx/Rx/DC Orders Clinical Impression: Postoperative pain, acute, shoulder Instructions: ED Pain, Acute, Uncertain Cause, ED Post Op Wound Check, Pain Prescriptions: No Action ibuprofen 800 mg tablet 800 mg PO BID PRN PRN (Reason: pain/fever) RF: 0 estradiol 1 mg tablet 1.5 mg PO DAILY RF: 0 budesonide-formoterol [Symbicort] 160-4.5 mcg/actuation HFA aerosol inhaler 2 puff inhalation BID Qty: 10.2 RF: 3 duloxetine 60 MG capsule 60 mg PO BID RF: 0 albuterol sulfate 1 PUFF inhaler 2 puff INHALATION Q4H PRN PRN (Reason: sob) RF: 0 omeprazole 20 mg capsule,delayed release(DR/EC) 20 mg PO DAILY RF: 0 lisinopril-hydrochlorothiazide 20-25 mg tablet 1 tab PO QHS RF: 0 lorazepam 1 MG tablet 1 mg PO TID PRN PRN (Reason: Anxiety) RF: 0 ondansetron HCl 4 MG tablet 4 mg PO Q6H PRN PRN (Reason: Nausea) RF: 0 cyanocobalamin (vitamin B-12) 100 MCG tablet 300 mcg SL DAILY RF: 0 oxycodone-acetaminophen 1 TABLET tablet 1 tab PO Q6H PRN PRN (Reason: Pain Score 1-10) RF: 0 gabapentin 100 MG capsule 100 mg PO DAILY RF: 0 diphenhydramine HCl 25 MG capsule 25 mg PO DAILY RF: 0 docusate sodium 100 MG capsule 100 mg PO DAILY RF: 0 PNV cmb#95-ferrous fumarate-FA 1 EACH tablet 1 ea PO DAILY RF: 0 ondansetron 4 MG tablet 8 mg PO Q8H PRN PRN (Reason: Nausea) Qty: 20 RF: 0 azithromycin [azithromycin] 250 MG tablet 250 mg PO DAILY Qty: 4 RF: 0 clarithromycin 500 mg Tablet 500 mg PO BID RF: 0 metronidazole 500 mg Tablet 500 mg PO BID RF: 0 ezetimibe 10 mg tablet 10 mg PO DAILY Qty: 90 RF: 3 Primary Care Provider: Karl Pichardo Referrals: Karl Pichardo MD [Primary Care Provider] - 5-7 Days Activity Restrictions/Additional Instructions: Follow-up with your orthopedic surgeon in 3 to 5 days. Call his office tomorrow and tell him you were seen in the emergency department for pain because your block wore off too soon. Disposition Disposition: Home, Self Care
[2021-05-02] MEDS: HYDROmorphone 1 MG/ML Syringe IM (19:47)
[2021-05-02] MEDS: DiphenhydrAMINE 50 MG/ML Syringe IM (19:48)
== END 2021-05-02 20:28 | disposition home or self-care (01) ==
PROVIDERS: Emergency Provider Emergency Medicine; PCP Family Medicine
DX: G89.18 Other acute postprocedural pain (principal); M25.511 Pain in right shoulder; E11.9 Type 2 diabetes mellitus without complications; K21.9 Gastro-esophageal reflux disease without esophagitis; I10 Essential (primary) hypertension; J45.909 Unspecified asthma, uncomplicated; Z79.84 Long term (current) use of oral hypoglycemic drugs; Z79.899 Other long term (current) drug therapy
CPT/HCPCS: 96372; 99282

== ENCOUNTER → 2021-06-04 07:01 | Outpatient (CLI) | payer MEDICAID, SELFPAY ==
--- NOTE | 2021-06-04 08:57 | NEURO ---
NCS and/or EMG Patient Report Ordering Doctor: Franco Lopez DATE OF SERVICE: 06/04/21 Indication: Pain and numbness affecting both hands, worse on the right. History of cervical decompression and fusion as well as multiple right rotator cuff repairs. No current weakness or radicular pain. Findings: Nerve conduction studies were performed in the right and left upper extremities. The right median motor study recording the abductor pollicis brevis showed a normal amplitude, normal distal latency and normal conduction velocity. The right ulnar motor study recording the abductor digiti minimi showed a normal amplitude, normal distal latency and normal conduction velocity. No conduction block or focal slowing was present across the elbow. Right median-ulnar lumbrical / interosseous motor latencies showed a normal median latency compared to the ulnar. The right median sensory response recording digit two showed a normal amplitude, latency and conduction velocity. The right ulnar sensory response recording digit five showed a normal amplitude, latency and conduction velocity. The right radial sensory response recording over the extensor snuff box showed a normal amplitude, latency and conduction velocity. The left median motor study recording the abductor pollicis brevis showed a normal amplitude, normal distal latency and normal conduction velocity. The left ulnar motor study recording the abductor digiti minimi showed a normal amplitude, normal distal latency and normal conduction velocity. No conduction block or focal slowing was present across the elbow. Left median-ulnar lumbrical / interosseous motor latencies showed a normal median latency compared to the ulnar. The left median sensory response recording digit two showed a normal amplitude, latency and conduction velocity. The left ulnar sensory response recording digit five showed a normal amplitude, latency and conduction velocity. The left radial sensory response recording over the extensor snuff box showed a normal amplitude, latency and conduction velocity. Needle EMG of the right upper extremity and cervical paraspinal muscles was performed. No denervation was seen in any muscle. Motor units in the first dorsal interosseous were borderline polyphasic, but otherwise unremarkable. All other motor unit morphology, activation and recruitment patterns were normal. Needle EMG of the left upper extremity was not performed given the symmetry of symptoms and the lack of findings in the more symptomatic limb. Impression: This is an essentially normal study. There is no electrophysiologic evidence of entrapment neuropathy on either side. In addition, there is no electrophysiologic evidence of cervical radiculopathy in the right upper extremity. Please note: the electrodiagnosis of radiculopathy is made on the basis of excluding peripheral nerve lesions on nerve conduction studies and the needle EMG demonstrating denervation and/or reinnervation in the distribution of one or more nerve roots (i.e., acute and/or chronic axonal loss). Thus, electrodiagnostic studies are insensitive in detecting radiculopathy in the absence of axonal loss (e.g., in the setting of compression resulting in intermittent ischemia or mechanical deformation; or demyelination without axonal loss). Thus, clinical correlation is required in the interpretation of this negative electrodiagnostic study for radiculopathy. Toney Mcintosh D.O. Multi Select Codes Neurology Neurology Interp Codes: 89041-69 Musc test done w/n test comp (interp) and 29133-70 Nr cnd test 13/> studies (interp)
== END ==
PROVIDERS: PCP Family Medicine; Referring Provider Orthopaedic Surgery; Visit Provider Orthopaedic Surgery
DX: R20.2 Paresthesia of skin (principal); M50.221 Other cervical disc displacement at C4-C5 level; M50.222 Other cervical disc displacement at C5-C6 level; Z68.29 Body mass index [BMI] 29.0-29.9, adult
CPT/HCPCS: 95886; 95913

== ENCOUNTER 2021-08-23 11:21 | Emergency (ER) | payer MEDICAID, SELFPAY ==
[2021-08-23 11:23] VITALS: BP 116/77; PULSE 108; RESP 14; TEMP 35.5; O2SAT 99; BMI 27.6
--- NOTE | 2021-08-23 11:39 | RAD_ITS ---
STUDY: X-RAY CHEST REASON FOR EXAM: Female, 56 years old. Near syncope TECHNIQUE: Single AP portable view of the chest. COMPARISON: Comparison is made with prior study dated 10/04/2020. FINDINGS: EKG electrodes are seen. The lungs are clear and expanded. There is no demonstrated pleural abnormality. Normal size heart. Normal mediastinum and jojo. Normal visualized pulmonary arteries. Normal visualized aortic arch and descending thoracic aorta. Normal visualized thoracic spine. Prior fusion in the lower cervical spine. There is no demonstrated abnormality of the visualized soft tissue structures of the upper abdomen. RAD/Chest 1 View (Portable) IMPRESSION: No acute abnormality is seen. Electronically Signed: Tim Cadet MD at 12:38 EST , Service support ,
--- NOTE | 2021-08-23 11:40 | EKG12_ITS ---
Test Reason : NEURO S/SX Blood Pressure : / mmHG Vent. Rate : 093 BPM Atrial Rate : 093 BPM P-R Int : 134 ms QRS Dur : 076 ms QT Int : 366 ms P-R-T Axes : 017 022 024 degrees QTc Int : 455 ms Normal sinus rhythm Normal ECG Confirmed by EVA MURILLO, BRADEN ([id number]), department editor TRISTON ENCARNACION ([id number]) on 08/24/2021 9:34:44 AM Referred By: RUTHY/HERLINDA Confirmed By:BRADEN VELASQUEZ MD
--- NOTE | 2021-08-23 11:42 | EX.ED.DYSGE1 ---
HPI History of Present Illness Chief Complaint: Neuro S/Sx Detail of Chief Complaint: Near syncope, dizziness Informant: patient Narrative Narrative: Patient presents to the emergency department with complaint of near syncopal episode that initially started yesterday. 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 At the end of the day yesterday she had an episode where she felt lightheaded and dizzy and felt like she was going to pass out but did not actually pass out. Patient today while at work had been at work since around 8 AM and had several more episodes x4 where she felt like she was going to pass out. Patient states that she would get dizzy and felt like her vision would leave for several seconds. She complains of pain to the left side of her head and left thigh. She describes the pain as kind of a stinging sensation. Patient is concerned because she thinks she may have had a TIA versus a Saenz's palsy years ago. Patient also with history of chronic pain and history of anxiety. She denies any focal weakness to the extremities. She did not actually lose consciousness at any point. She denies recent illness. Prior similar symptoms: No PFSH PFSH Medical History Asthma Asthma Bronchitis Chest pain Contusion of right ankle Contusion of right foot Depressed Diabetes mellitus type II, controlled Dyspnea on exertion Essential hypertension GERD (gastroesophageal reflux disease) GI bleed Hemorrhoids Hyperlipidemia Nausea & vomiting Near syncope Orthostatic hypotension Pneumonia Positive PPD, treated RSD (reflex sympathetic dystrophy) Shoulder pain Statin intolerance Strain of unspecified muscle, fascia and tendon at shoulder and upper arm level, right arm, initial encounter Home Medications duloxetine 60 mg PO BID 11/30/13 [History Last Taken 08/19/19] albuterol sulfate 2 puff INHALATION Q4H PRN PRN 03/04/14 [History Last Taken 08/15/19] lisinopril 20 mg-hydrochlorothiazide 25 mg tablet 1 tab PO QHS tab 05/03/19 [History Last Taken 08/19/19] lorazepam 1 mg PO TID PRN PRN 05/09/19 [History Last Taken 08/17/19] ondansetron HCl 4 mg PO Q6H PRN PRN 08/19/19 [History Last Taken 08/18/19] ibuprofen 800 mg tablet 800 mg PO BID PRN PRN tab 01/04/20 [History Last Taken Unknown] omeprazole 20 mg capsule,delayed release 20 mg PO DAILY cap 01/04/20 [History Last Taken Unknown] estradiol 1 mg tablet 1.5 mg PO DAILY tab 01/06/20 [History Last Taken Unknown] budesonide-formoterol HFA 160 mcg-4.5 mcg/actuation aerosol inhaler 2 puff INHALATION BID #10.2 g 01/07/20 [Rx Last Taken Unknown] cyanocobalamin (vitamin B-12) 300 mcg SUBLINGUAL DAILY 07/29/20 [History Last Taken Unknown] oxycodone-acetaminophen 1 tab PO Q6H PRN PRN 07/29/20 [History Last Taken Unknown] gabapentin 100 mg PO DAILY 08/17/20 [History Last Taken Unknown] PNV cmb#95-ferrous fumarate-FA 1 ea PO DAILY 10/04/20 [History Last Taken Unknown] diphenhydramine HCl 25 mg PO DAILY 10/04/20 [History Last Taken Unknown] docusate sodium 100 mg PO DAILY 10/04/20 [History Last Taken Unknown] ondansetron 8 mg PO Q8H PRN PRN #20 tab 10/05/20 [Rx Last Taken Unknown] azithromycin 250 mg PO DAILY #4 tablet 12/31/20 [Rx Last Taken Unknown] clarithromycin 500 mg PO BID 01/03/21 [History Last Taken Unknown] metronidazole 500 mg PO BID 01/03/21 [History Last Taken Unknown] ezetimibe 10 mg tablet 10 mg PO DAILY #90 tab 04/19/21 [Rx Last Taken Unknown] prednisone 10 mg tablet 10 mg PO .COMPLEX #30 tab 05/20/21 [Rx Last Taken Unknown] cephalexin 500 mg PO Q6 #40 capsule 08/23/21 [Rx Last Taken Unknown] glimepiride 4 mg PO DAILY #30 tab 08/23/21 [Rx Last Taken Unknown] Allergy/AdvReac Type Severity Reaction Status Date / Time adalimumab [From Humira] Allergy Unknown Verified 08/23/21 11:23 amoxicillin trihydrate Allergy Unknown Verified 08/23/21 11:23 [From Augmentin] codeine Allergy Itching Verified 08/23/21 11:23 etanercept [From Enbrel] Allergy Unknown Verified 08/23/21 11:23 leflunomide [From Arava] Allergy Other Verified 08/23/21 11:23 metoprolol tartrate Allergy Unknown Verified 08/23/21 11:23 [From Lopressor] morphine sulfate Allergy Unknown Verified 08/23/21 11:23 [From Embeda] naltrexone HCl [From Embeda] Allergy Unknown Verified 08/23/21 11:23 oxymorphone [Oxymorphone] Allergy Unknown Verified 08/23/21 11:23 pioglitazone HCl [From Actos] Allergy Other Verified 08/23/21 11:23 pneumococcal 23-valent Allergy Unknown Verified 08/23/21 11:23 polysacchari [From Pneumovax 23] potassium clavulanate Allergy Unknown Verified 08/23/21 11:23 [From Augmentin] Mrssckz-RLK-BnL Reductase Allergy Unknown Verified 08/23/21 11:23 Inhibitor [Vwdxpmu-Ljs-Eis Reductase Inhibitor] Sulfa (Sulfonamide Allergy Anaphylaxis Verified 08/23/21 11:23 Antibiotics) sulfamethoxazole Allergy Anaphylaxis Verified 08/23/21 11:23 [From Bactrim] telithromycin [From Ketek] Allergy Unknown Verified 08/23/21 11:23 tramadol HCl [From Ultram] Allergy Unknown Verified 08/23/21 11:23 trimethoprim [From Bactrim] Allergy Anaphylaxis Verified 08/23/21 11:23 Family History Father Diabetes Hypertension Mother Diabetes Hypertension Other Cancer Surgical History Hx of shoulder surgery Social History Smoking Status: Never smoker alcohol intake: current alcohol intake frequency: 0-2 drinks per day Alcohol type: hard liquor ROS ROS ED Constitutional Constitutional ED: Reports systems reviewed and no addt'l complaints, except as documented; Denies body ache(s), change in weight or chills Eyes Eyes: Reports change in vision; Denies acute decrease in peripheral vision, double vision or loss of vision ENT ENT ED: Reports none; Denies ear pain, lip swelling, loss taste/smell, neck pain, otalgia or sore throat Cardiovascular Cardiovascular: Reports none; Denies abdominal pain, chest pain with activity, leg edema, lightheadedness, palpitations, rapid heart rate or syncope Respiratory/Chest Respiratory/Chest: Reports none; Denies change in mental status, dry cough, dyspnea, hemoptysis, shortness of breath at rest or shortness of breath with exertion Gastrointestinal Gastrointestinal: Reports none; Denies abdominal pain, change in stool character, diarrhea, hematemesis, hematochezia, melena, rectal bleeding or vomiting Genitourinary Genitourinary ED: Reports none; Denies abdominal discomfort, anuria, dysuria, genital pain or polyuria Musculoskeletal Musculoskeletal: Reports none; Denies arthralgias, back pain, difficulty walking, extremity pain, muscle weakness or myalgias Integumentary Reports none; Denies abscess or rash Neurologic Neurologic: Reports none, headache(s) and other Details: Dizziness and near syncope ; Denies abnormal gait, confusion, focal weakness, frequent falls, loss of vision, numbness, paresthesias, radicular pain, vertigo or weakness Psychiatric Psychiatric: Reports systems reviewed and no addt'l complaints, except as documented, none and anxiety; Denies behavioral changes, confusion, difficulty concentrating, hallucinations, suicidal ideation, tactile hallucinations or visual hallucinations Endocrine Endocrinology: Denies none, cold intolerance, excessive sweating, fatigue or heat intolerance Hematologic/Lymphatic Hematologic/Lymphatic: Reports none; Denies anemia, easy bleeding or easy bruising Allergic/Immunologic Allergic/Immunologic ED: Denies as per HPI, none, lip swelling, mouth swelling, throat swelling, tongue swelling or hives EXAM Physical Exam Const Vital Signs: 08/23/21 11:23 08/23/21 12:18 08/23/21 12:19 Temperature 95.9 F L Temperature Source Temporal Pulse Rate 108 H 89 Pulse Rate [Lying] 83 Pulse Rate [Sitting] 91 Pulse Rate [Standing] 100 Respiratory Rate 14 17 Blood Pressure 116/77 123/79 H Blood Pressure [Lying] 117/70 Blood Pressure [Sitting] 117/81 H Blood Pressure [Standing] 91/67 Blood Pressure Mean 90 93 Blood Pressure Mean [Lying] 85 Blood Pressure Mean [Sitting] 93 Blood Pressure Mean [Standing] 75 Pulse Ox 99 Oxygen Delivery Method Room Air Positive well nourished and well developed General Appearance ED: well developed and NAD HEENT Reports TM's clear and moist mucous membranes normocephalic and atraumatic; Negative for trauma or tenderness Tympanic Membrane ED: Yes TM's clear Eyes PERRL and EOMs intact bilaterally General Eye ED: Negative for pale conjunctiva or scleral icterus Neck no lymphadenopathy, supple and no JVD General: Negative for tenderness Chest Wall inspection of chest normal and palpation of chest normal Chest: Negative for tenderness Resp normal respiratory effort and clear to auscultation bilaterally Effort and Inspection: Negative for respiratory distress or pain with movement Auscultation: Negative for rhonchi, wheezes or diminished lung sounds Cardio regular rate, regular rhythm, S1 normal heart sound, S2 normal heart sound and no murmurs Peripheral Pulses: pulses 2+ throughout GI normal to inspection, nondistended, normoactive bowel sounds, soft to palpation, non-tender, non-distended and no masses Back/Spine no CVA tenderness and no thoracic nor lumbar tenderness Extremity normal to inspection General Extremety ED: Negative for edema General Extremity: Negative for edema Neuro oriented x3, CN's II-XII intact bilaterally, no sensory deficits noted and gait normal Neuro Narrative: GCS is a 15 and her NIH stroke scale is a 0. No focal neurologic deficits noted on exam. No ataxia noted. Sensorium / Orientation: awake, alert, oriented to person, oriented to place and oriented to time Motor Exam: strength 5/5 throughout and strength abnormal Psych mental status grossly normal Skin no rashes or lesions noted and no wounds MDM MDM MDM Narrative Medical decision making narrative: IV line established on arrival. Patient was given a liter normal same fluid bolus. Her orthostatic vital signs were positive with systolic pressure dropping into the 90s with standing. Patient also noted to have a UTI and was started on Rocephin 1 g IV. Patient will be treated with Keflex for home. She is advised to push fluids. I suspect her symptoms likely related to UTI and orthostatic hypotension. Patient advised to push fluids. She is to return if fever, vomiting, syncope, or condition should worsen anyway. Lab Data Attestation: I reviewed the patient's lab results. Labs: Laboratory Results - last 24 hr 08/23/21 08/23/21 08/23/21 11:53 11:53 12:15 WBC 11.7 H RBC 4.29 Hgb 13.2 Hct 39.9 MCV 93.0 MCH 30.8 MCHC 33.1 RDW Std Deviation 44.6 H RDW Coeff of Daiana 13.1 Plt Count 378 MPV 8.8 Immature Gran % (Auto) 0.700 Neut % (Auto) 65.3 Lymph % (Auto) 24.6 Dickson % (Auto) 8.2 Eos % (Auto) 0.8 Baso % (Auto) 0.4 Absolute Neuts (auto) 7.6 Absolute Lymphs (auto) 2.87 Nucleated RBC % 0 Sodium 133 L Potassium 3.9 Chloride 98 Carbon Dioxide 24.0 Anion Gap 11 BUN 17 Creatinine 1.55 H Estim Creat Clear Calc 41.37 Est GFR (MDRD) Af Amer 45 L Est GFR (MDRD) Non-Af 37 L BUN/Creatinine Ratio 11.0 Glucose 179 H Calcium 10.6 H Troponin I High Sens 4 Urine Color Yellow Urine Clarity Cloudy Urine pH 5.0 Ur Specific [place] 1.020 Urine Protein 30 H Urine Glucose (UA) Normal Urine Ketones 5 H Urine Occult Blood 10 H Urine Nitrite Positive H Urine Bilirubin Negative Urine Urobilinogen Normal Ur Leukocyte Esterase 500 H Urine RBC 0-5 SEEN Urine WBC 50-100 SEEN Ur Squamous Epith Cells 0-5 SEEN Urine Bacteria 4+ Urine Mucus RARE Radiography Chest X-Ray - ED: 1 View Diagnostic Testing: Clinical Impression(s) from Imaging Studies Chest X-Ray 08/23/21 11:39 IMPRESSION: No acute abnormality is seen. Electronically Signed: Tim Cadet MD at 12:38 EST , Service support , Brain CT 08/23/21 12:15 IMPRESSION: Normal unenhanced CT scan of the brain. Electronically Signed: Tim Cadet MD at 12:42 EST , Service support , 1 view chest creatinine interpreted by myself as no acute disease process. EKG Initial EKG: Attestation: I personally reviewed and interpreted this EKG as follows: Comments: Sinus rhythm with a ventricular rate of 93 bpm with no acute ST segment changes Discharge Plan Triage Chief Complaint: Neuro S/Sx ED Provider: Gorge Hoffman Dx/Rx/DC Orders Clinical Impression: UTI (urinary tract infection), Orthostatic hypotension Instructions: Urinary Tract Infections in Women, Hypotension Dc Prescriptions: New cephalexin [cephalexin] 500 MG capsule 500 mg PO Q6 Qty: 40 RF: 0 glimepiride 4 mg tablet 4 mg PO DAILY Qty: 30 RF: 0 No Action ibuprofen 800 mg tablet 800 mg PO BID PRN PRN (Reason: pain/fever) RF: 0 estradiol 1 mg tablet 1.5 mg PO DAILY RF: 0 budesonide-formoterol [Symbicort] 160-4.5 mcg/actuation HFA aerosol inhaler 2 puff inhalation BID Qty: 10.2 RF: 3 prednisone 10 mg tablet 10 mg PO .COMPLEX Qty: 30 RF: 0 duloxetine 60 MG capsule 60 mg PO BID RF: 0 albuterol sulfate 1 PUFF inhaler 2 puff INHALATION Q4H PRN PRN (Reason: sob) RF: 0 omeprazole 20 mg capsule,delayed release(DR/EC) 20 mg PO DAILY RF: 0 lisinopril-hydrochlorothiazide 20-25 mg tablet 1 tab PO QHS RF: 0 lorazepam 1 MG tablet 1 mg PO TID PRN PRN (Reason: Anxiety) RF: 0 ondansetron HCl 4 MG tablet 4 mg PO Q6H PRN PRN (Reason: Nausea) RF: 0 cyanocobalamin (vitamin B-12) 100 MCG tablet 300 mcg sublingual DAILY RF: 0 oxycodone-acetaminophen 1 TABLET tablet 1 tab PO Q6H PRN PRN (Reason: Pain Score 1-10) RF: 0 gabapentin 100 MG capsule 100 mg PO DAILY RF: 0 diphenhydramine HCl 25 MG capsule 25 mg PO DAILY RF: 0 docusate sodium 100 MG capsule 100 mg PO DAILY RF: 0 PNV cmb#95-ferrous fumarate-FA 1 EACH tablet 1 ea PO DAILY RF: 0 ondansetron 4 MG tablet 8 mg PO Q8H PRN PRN (Reason: Nausea) Qty: 20 RF: 0 azithromycin [azithromycin] 250 MG tablet 250 mg PO DAILY Qty: 4 RF: 0 clarithromycin 500 mg Tablet 500 mg PO BID RF: 0 metronidazole 500 mg Tablet 500 mg PO BID RF: 0 ezetimibe 10 mg tablet 10 mg PO DAILY Qty: 90 RF: 3 Primary Care Provider: Karl Pichardo Referrals: Karl Pichardo MD [Primary Care Provider] - 3-5 Days Disposition Disposition: Home, Self Care
[2021-08-23 12:00] LABS: Absolute Lymphocyte Count 2.87 X10^3/uL (0.83-4.51); Absolute Neutrophil Count 7.6 X10^3/uL (2.0-7.7); Basophil% 0.4 % (0-1); Eosinophil# 0.09 X10^3/uL; Eosinophils% 0.8 % (0-5); Hematocrit 39.9 % (37-47); Hemoglobin 13.2 g/dL (12.0-15.0); Lymphocyte # 2.87 X10^3/ul (0.83-4.51); Lymphocyte % 24.6 % (19-41); Mean Corp Hgb Conc 33.1 g/dL (32-36); Mean Corpuscular Hgb 30.8 pg (27.0-32.0); Mean Platelet Vol. 8.8 fl (6.2-12.0); Monocyte# 0.96 X10^3/uL; Monocyte% 8.2 % (0-10); Neutrophil % 65.3 % (47-70); Platelet Count 378 K/mm3 (150-450); RBC Distribution Width CV 13.1 % (11.6-14.6); RBC Distribution Width SD 44.6 fl (35.1-43.9); Red Blood Count 4.29 M/mm3 (4.2-5.4); White Blood Count 11.7 K/mm3 (4.4-11.0)
[2021-08-23 12:01] LABS: Basophil# 0.05 X10^3/uL; NRBC Flagged by Analyzer 0 % (0-5)
[2021-08-23] MEDS: 0.9% Normal Saline 1,000 ML 150 ML IV (12:14)
--- NOTE | 2021-08-23 12:15 | CT_ITS ---
STUDY: CT BRAIN WITHOUT CONTRAST REASON FOR EXAM: Female, 56 years old. Near syncope, dizziness, headache RADIATION DOSAGE (If Supplied By Facility): CTDIvol = ( 44.99 ) mGy, DLP = ( 829.85 ) mGycm TECHNIQUE: Transaxial CT imaging of the brain was performed without administration of intravenous contrast material. Individualized dose optimization techniques were used for this CT. COMPARISON: Comparison is made with prior study dated 02/14/2021. FINDINGS: Normal soft tissue structures. Normal calvarium. Normal size ventricles and extra-axial spaces for the patient''s age. Normal white matter tracts of the cerebral hemispheres. Normal basal ganglia and thalami. Normal brainstem. Normal cerebellum. There is no intracranial hemorrhage. There are no findings of an acute ischemic infarction. Minimal mucosal thickening along the posterior wall of the right maxillary sinus. CT/Brain/Head without Contrast IMPRESSION: Normal unenhanced CT scan of the brain. Electronically Signed: Tim Cadet MD at 12:42 EST , Service support ,
[2021-08-23 12:18] VITALS: BP 123/79; PULSE 89; RESP 17; BMI 27.6
[2021-08-23 12:18] LABS: Anion Gap 11 (5-15); BUN 17 mg/dL (7-18); Calcium,Total 10.6 mg/dL (8.5-10.1); Chloride 98 mmol/L (98-107); Creatinine, Serum 1.55 mg/dL (0.55-1.02); EST Glomerular Filtration Rate 37 mL/min (>60); Est Glom Filt Rate - Afr Amer 45 mL/min (>60); Estimated Creatinine Clearance 41.37 ml/min; Glucose 179 mg/dL (74-106); Potassium 3.9 mmol/L (3.5-5.1); Sodium Level 133 mmol/L (136-145); Troponin-I HS 4 pg/mL (3.0-54.0)
[2021-08-23 12:19] VITALS: BP 117/70; BP 117/81; BP 91/67; PULSE 100; PULSE 83; PULSE 91
[2021-08-23 12:23] LABS: Color, Urine Yellow (Yellow); Glucose, Dipstick Normal (Normal); Ketone-Dipstick 5 mg/dl (Negative); Leukocyte Esterase-Dipstick 500 /ul (Negative); Nitrite-Dipstick Positive (Negative); Occult Blood-Urine 10 /ul (Negative); Protein-Dipstick 30 mg/dl (Negative); Urine Bilirubin Dipstick Negative (Negative); Urine Clarity Cloudy (Clear); Urine Urobilinogen Normal (Normal)
[2021-08-23 12:36] LABS: Bacteria 4+ /hpf (None Seen); Mucous, Urine RARE /hpf (<or=2+); Red Blood Cells-Urine 0-5 SEEN /hpf (0-5); Squamous Epithelial Cells - UA 0-5 SEEN /hpf (5-10); White Blood Cells 50-100 SEEN /hpf (0-5)
[2021-08-23] MEDS: Ceftriaxone 1 GM/50 ML BAG IV (13:48)
[2021-08-23 15:11] VITALS: BP 94/68; PULSE 98; RESP 16; O2SAT 99
[2021-08-23] MEDS: 0.9% Normal Saline 1,000 ML 999 ML IV (15:13)
--- NOTE | 2021-08-23 15:13 | ED.RN ---
repeat orthostatics at 1500 supine 118/72 99 sitting 105/68 100 standing 94/[address] Hoffman start 2nd 1000 0.9% ns IV. Dr Hoffman notified at this time.
[2021-08-23 17:05] VITALS: BP 119/83; BP 125/74; BP 131/83; PULSE 93; PULSE 96; RESP 16; O2SAT 97
[2021-08-23 17:12] VITALS: BP 119/85; PULSE 96; RESP 16; O2SAT 97
== END 2021-08-23 17:13 | disposition home or self-care (01) ==
PROVIDERS: Emergency Provider Emergency Medicine; PCP Family Medicine; Visit Provider Emergency Medicine
DX: N39.0 Urinary tract infection, site not specified (principal); I95.1 Orthostatic hypotension
CPT/HCPCS: 70450; 71045; 80048; 81001; 84484; 85025; 87077; 87086; 87088; 87186; 93005; 96365; 96366; 99285; J7030; A4216

== ENCOUNTER 2021-08-24 21:40 | Emergency (ER) | payer MEDICAID, SELFPAY ==
[2021-08-24 21:42] VITALS: BP 155/102; PULSE 128; RESP 19; TEMP 37.1; O2SAT 96; BMI 26.6
--- NOTE | 2021-08-24 21:59 | ED.RN ---
P. STARTED KEFLEX TODAY. REPORTS EATING BERRIES PRIOR TO TAKING MEDICATION. PT. EDUCATED THAT FOOD NEEDS TO BE EATEN, SUCH TOAST AND PEANUT BUTTER, BECAUSE IT CAN CAUSE UPSET STOMACH, AND BERRIES ARE ACIDIC. PT. THEN STATES THAT KEFLEX WAS ON THEIR DO NOT TAKE LIST AT THE PHARMACY, BUT [facility] DID KNOW THAT, AND THAT IT HAS BEEN YEARS SINCE KEFLEX HAD BEEN PRESCRIBED. PT. STATES THEY THINK THIS IS WHY THEY CANNOT TAKE KEFLEX. PT. ON KEFLEX FOR UTI.
[2021-08-24] MEDS: Metoclopramide 10 MG/2 ML Vial IV (22:35)
[2021-08-24] MEDS: 0.9% Normal Saline 1,000 ML 999 ML IV ×2 (22:35→23:50)
[2021-08-24 22:48] LABS: Absolute Lymphocyte Count 0.94 X10^3/uL (0.83-4.51); Absolute Neutrophil Count 14.4 X10^3/uL (2.0-7.7); Basophil# 0.04 X10^3/uL; Basophil% 0.2 % (0-1); Eosinophil# 0.04 X10^3/uL; Eosinophils% 0.2 % (0-5); Hematocrit 41.5 % (37-47); Hemoglobin 13.6 g/dL (12.0-15.0); Lymphocyte # 0.94 X10^3/ul (0.83-4.51); Lymphocyte % 5.8 % (19-41); Mean Corp Hgb Conc 32.8 g/dL (32-36); Mean Corpuscular Hgb 31.1 pg (27.0-32.0); Mean Corpuscular Volume 94.7 fL (81-99); Monocyte# 0.84 X10^3/uL; Monocyte% 5.1 % (0-10); NRBC Flagged by Analyzer 0 % (0-5); Neutrophil # 14.42 X10^3/uL (2.7-7.7); Neutrophil % 88.4 % (47-70); Platelet Count 380 K/mm3 (150-450); RBC Distribution Width SD 45.1 fl (35.1-43.9); Red Blood Count 4.38 M/mm3 (4.2-5.4); White Blood Count 16.3 K/mm3 (4.4-11.0)
--- NOTE | 2021-08-24 22:54 | EDS_ITS ---
HPI History of Present Illness Chief Complaint: Nausea/Vomiting Narrative Narrative: Patient is a 56-year-old female with past medical history of eating disorder as well as multiple medical allergies/intolerances. She was seen yesterday and diagnosed with a UTI and placed on Keflex. Patient states that she took the Keflex and then approximately 15 minutes later have bouts of nausea and vomiting. She states that since it started she has not been able to control the nausea and vomiting and feels she is becoming dehydrated. She denies any other new exposures than the Keflex and states that she has not been around anyone who has been sick. She states she is concerned she is having an allergic reaction/intolerance to the Keflex and becoming dehydrated and with this presents for reevaluation [facility] Medical History Asthma Asthma Bronchitis Chest pain Contusion of right ankle Contusion of right foot Depressed Diabetes mellitus type II, controlled Dyspnea on exertion Essential hypertension GERD (gastroesophageal reflux disease) GI bleed Hemorrhoids Hyperlipidemia Nausea & vomiting Near syncope Orthostatic hypotension Pneumonia Positive PPD, treated RSD (reflex sympathetic dystrophy) Shoulder pain Statin intolerance Strain of unspecified muscle, fascia and tendon at shoulder and upper arm level, right arm, initial encounter Home Medications duloxetine 60 mg PO BID 11/30/13 [History Last Taken 08/19/19] albuterol sulfate 2 puff INHALATION Q4H PRN PRN 03/04/14 [History Last Taken 08/15/19] lisinopril 20 mg-hydrochlorothiazide 25 mg tablet 1 tab PO QHS tab 05/03/19 [History Last Taken 08/19/19] lorazepam 1 mg PO TID PRN PRN 05/09/19 [History Last Taken 08/17/19] ondansetron HCl 4 mg PO Q6H PRN PRN 08/19/19 [History Last Taken 08/18/19] ibuprofen 800 mg tablet 800 mg PO BID PRN PRN tab 01/04/20 [History Last Taken Unknown] omeprazole 20 mg capsule,delayed release 20 mg PO DAILY cap 01/04/20 [History Last Taken Unknown] estradiol 1 mg tablet 1.5 mg PO DAILY tab 01/06/20 [History Last Taken Unknown] budesonide-formoterol HFA 160 mcg-4.5 mcg/actuation aerosol inhaler 2 puff INHALATION BID #10.2 g 01/07/20 [Rx Last Taken Unknown] cyanocobalamin (vitamin B-12) 300 mcg SUBLINGUAL DAILY 07/29/20 [History Last Taken Unknown] oxycodone-acetaminophen 1 tab PO Q6H PRN PRN 07/29/20 [History Last Taken Unknown] gabapentin 100 mg PO DAILY 08/17/20 [History Last Taken Unknown] PNV cmb#95-ferrous fumarate-FA 1 ea PO DAILY 10/04/20 [History Last Taken Unknown] diphenhydramine HCl 25 mg PO DAILY 10/04/20 [History Last Taken Unknown] docusate sodium 100 mg PO DAILY 10/04/20 [History Last Taken Unknown] ondansetron 8 mg PO Q8H PRN PRN #20 tab 10/05/20 [Rx Last Taken Unknown] azithromycin 250 mg PO DAILY #4 tablet 12/31/20 [Rx Last Taken Unknown] clarithromycin 500 mg PO BID 01/03/21 [History Last Taken Unknown] metronidazole 500 mg PO BID 01/03/21 [History Last Taken Unknown] ezetimibe 10 mg tablet 10 mg PO DAILY #90 tab 04/19/21 [Rx Last Taken Unknown] prednisone 10 mg tablet 10 mg PO .COMPLEX #30 tab 05/20/21 [Rx Last Taken Unknown] cephalexin 500 mg PO Q6 #40 capsule 08/23/21 [Rx Last Taken Unknown] glimepiride 4 mg PO DAILY #30 tab 08/23/21 [Rx Last Taken Unknown] magnesium oxide 400 mg PO DAILY 30 Days #30 tab 08/25/21 [Rx Last Taken Unknown] nitrofurantoin monohyd/m-cryst [Macrobid] 100 mg PO BID 7 Days #14 cap 08/25/21 [Rx Last Taken Unknown] ondansetron 4 mg PO TID PRN PRN #21 tab 08/25/21 [Rx Last Taken Unknown] Allergy/AdvReac Type Severity Reaction Status Date / Time adalimumab [From Humira] Allergy Unknown Verified 08/23/21 11:23 amoxicillin trihydrate Allergy Unknown Verified 08/23/21 11:23 [From Augmentin] codeine Allergy Itching Verified 08/23/21 11:23 etanercept [From Enbrel] Allergy Unknown Verified 08/23/21 11:23 leflunomide [From Arava] Allergy Other Verified 08/23/21 11:23 metoprolol tartrate Allergy Unknown Verified 08/23/21 11:23 [From Lopressor] morphine sulfate Allergy Unknown Verified 08/23/21 11:23 [From Embeda] naltrexone HCl [From Embeda] Allergy Unknown Verified 08/23/21 11:23 oxymorphone [Oxymorphone] Allergy Unknown Verified 08/23/21 11:23 pioglitazone HCl [From Actos] Allergy Other Verified 08/23/21 11:23 pneumococcal 23-valent Allergy Unknown Verified 08/23/21 11:23 polysacchari [From Pneumovax 23] potassium clavulanate Allergy Unknown Verified 08/23/21 11:23 [From Augmentin] Jmumxtx-OMC-VxA Reductase Allergy Unknown Verified 08/23/21 11:23 Inhibitor [Zwpgymr-Oet-Vmj Reductase Inhibitor] Sulfa (Sulfonamide Allergy Anaphylaxis Verified 08/23/21 11:23 Antibiotics) sulfamethoxazole Allergy Anaphylaxis Verified 08/23/21 11:23 [From Bactrim] telithromycin [From Ketek] Allergy Unknown Verified 08/23/21 11:23 tramadol HCl [From Ultram] Allergy Unknown Verified 08/23/21 11:23 trimethoprim [From Bactrim] Allergy Anaphylaxis Verified 08/23/21 11:23 Family History Father Diabetes Hypertension Mother Diabetes Hypertension Other Cancer Surgical History Hx of shoulder surgery Social History Smoking Status: Never smoker alcohol intake: current alcohol intake frequency: 0-2 drinks per day Alcohol type: hard liquor ROS ROS ED Constitutional Constitutional ED: Denies chills or fever(s) ENT ENT ED: Denies sore throat Cardiovascular Cardiovascular: Denies chest pain Respiratory/Chest Respiratory/Chest: Denies cough or dyspnea Gastrointestinal Gastrointestinal: Reports nausea and vomiting; Denies abdominal pain or diarrhea Genitourinary Genitourinary ED: Reports dysuria Musculoskeletal Musculoskeletal: Reports myalgias Integumentary Denies rash Neurologic Neurologic: Denies headache(s) Hematologic/Lymphatic Hematologic/Lymphatic: Denies easy bleeding or easy bruising EXAM Physical Exam Const Vital Signs: 08/24/21 21:42 08/25/21 02:04 Temperature 98.8 F Temperature Source Temporal Pulse Rate 128 H 92 Respiratory Rate 19 H 19 H Blood Pressure 155/102 H 123/84 H Blood Pressure Mean 119 97 Pulse Ox 96 98 Oxygen Delivery Method Room Air Room Air Positive well nourished and well developed General Appearance ED: well developed HEENT Reports dry mucous membranes Mouth ED: Yes dry mucous membranes Mouth: dry mucous membranes Eyes PERRL and EOMs intact bilaterally Neck supple Resp normal respiratory effort and clear to auscultation bilaterally Cardio regular rate and regular rhythm Rate: other Other Details: Radial pulses are plus 2 out of 4 bilaterally are equal and symmetric GI normal to inspection, nondistended, normoactive bowel sounds, non-tender, non- distended and no masses GI Narrative: No voluntary guarding or rigidity no pulsatile mass Auscultation: normoactive bowel sounds Palpation: soft Extremity normal to inspection Neuro oriented x3 and CN's II-XII intact bilaterally Sensorium / Orientation: alert Motor Exam: strength 5/5 throughout Psych Psych Narrative: Patient has a depressed/agitated affect Skin Skin Narrative: Skin turgor is increased consistent with mild dehydration MDM MDM MDM Narrative Medical decision making narrative: The patient presented to the ER tachycardic but otherwise afebrile and in no acute distress. She has a long list of medical/medicine intolerances. She reports that the nausea and vomiting did not start until she took her first dose of Keflex and she denies being around any sick contacts or having any type of loose stool/diarrhea symptoms. At this time her history and physical exam does fit that her persistent nausea and vomiting today are related to the medication ingestion. I elected to recheck basic laboratory studies as a concern for dehydration with her symptoms. I felt there is no need to repeat a urine sample as we know its infected from the previous day. Patient's white count is elevated at 16.3 but I feel this is a stress response as there is no left shift and she is afebrile. Kidney function is normal but her magnesium is low at 1.0. Secondary to this low value should be given 4 g in the ER and while she is receiving that over multiple hours were also given 2 L of fluid. Patient was also given Zofran to help with her nausea and vomiting sensation. After IV hydration magnesium replacement and Zofran patient reported feeling better and her vomiting resolved where she had no further episodes in the ER. Therefore at this time with improvement of symptoms with treatment and a persistently soft nonsurgical abdomen as well as improvement in vital signs I do not feel there is need for admission. Patient be placed on magnesium Zofran and have her Keflex changed to Macrobid and she can follow-up with her family doctor on an outpatient basis Lab Data Attestation: I reviewed the patient's lab results. Labs: Laboratory Results - last 24 hr 08/24/21 08/24/21 22:38 22:38 WBC 16.3 H RBC 4.38 Hgb 13.6 Hct 41.5 MCV 94.7 MCH 31.1 MCHC 32.8 RDW Std Deviation 45.1 H RDW Coeff of Daiana 13.0 Plt Count 380 MPV 9.0 Immature Gran % (Auto) 0.300 Neut % (Auto) 88.4 H Lymph % (Auto) 5.8 L Cottle % (Auto) 5.1 Eos % (Auto) 0.2 Baso % (Auto) 0.2 Absolute Neuts (auto) 14.4 H Absolute Lymphs (auto) 0.94 Nucleated RBC % 0 Sodium 133 L Potassium 3.4 L Chloride 101 Carbon Dioxide 20.0 L Anion Gap 12 BUN 14 Creatinine 0.80 Estim Creat Clear Calc 80.15 Est GFR (MDRD) Af Amer 95 Est GFR (MDRD) Non-Af 79 BUN/Creatinine Ratio 17.4 Glucose 240 H Calcium 9.5 Magnesium 1.0 L Discharge Plan Triage Chief Complaint: Nausea/Vomiting Other Complaint: Allergic Reaction ED Provider: Efra Fields Dx/Rx/DC Orders Clinical Impression: Hypomagnesemia, Nausea & vomiting, Adverse drug reaction Instructions: Discharge Instructions for ..., ED Vomiting (Adult) Prescriptions: New ondansetron 4 mg tablet,disintegrating 4 mg PO TID PRN PRN (Reason: nausea and vomiting) Qty: 21 RF: 2 magnesium oxide 400 mg (241.3 mg magnesium) tablet 400 mg PO DAILY 30 Days Qty: 30 RF: 2 nitrofurantoin monohyd/m-cryst [Macrobid] 100 mg capsule 100 mg PO BID 7 Days Qty: 14 RF: 0 No Action ibuprofen 800 mg tablet 800 mg PO BID PRN PRN (Reason: pain/fever) RF: 0 estradiol 1 mg tablet 1.5 mg PO DAILY RF: 0 budesonide-formoterol [Symbicort] 160-4.5 mcg/actuation HFA aerosol inhaler 2 puff inhalation BID Qty: 10.2 RF: 3 prednisone 10 mg tablet 10 mg PO .COMPLEX Qty: 30 RF: 0 duloxetine 60 MG capsule 60 mg PO BID RF: 0 albuterol sulfate 1 PUFF inhaler 2 puff INHALATION Q4H PRN PRN (Reason: sob) RF: 0 omeprazole 20 mg capsule,delayed release(DR/EC) 20 mg PO DAILY RF: 0 lisinopril-hydrochlorothiazide 20-25 mg tablet 1 tab PO QHS RF: 0 lorazepam 1 MG tablet 1 mg PO TID PRN PRN (Reason: Anxiety) RF: 0 ondansetron HCl 4 MG tablet 4 mg PO Q6H PRN PRN (Reason: Nausea) RF: 0 cyanocobalamin (vitamin B-12) 100 MCG tablet 300 mcg sublingual DAILY RF: 0 oxycodone-acetaminophen 1 TABLET tablet 1 tab PO Q6H PRN PRN (Reason: Pain Score 1-10) RF: 0 gabapentin 100 MG capsule 100 mg PO DAILY RF: 0 diphenhydramine HCl 25 MG capsule 25 mg PO DAILY RF: 0 docusate sodium 100 MG capsule 100 mg PO DAILY RF: 0 PNV cmb#95-ferrous fumarate-FA 1 EACH tablet 1 ea PO DAILY RF: 0 ondansetron 4 MG tablet 8 mg PO Q8H PRN PRN (Reason: Nausea) Qty: 20 RF: 0 azithromycin [azithromycin] 250 MG tablet 250 mg PO DAILY Qty: 4 RF: 0 clarithromycin 500 mg Tablet 500 mg PO BID RF: 0 metronidazole 500 mg Tablet 500 mg PO BID RF: 0 cephalexin [cephalexin] 500 MG capsule 500 mg PO Q6 Qty: 40 RF: 0 glimepiride 4 mg tablet 4 mg PO DAILY Qty: 30 RF: 0 ezetimibe 10 mg tablet 10 mg PO DAILY Qty: 90 RF: 3 Primary Care Provider: Karl Pichardo Referrals: Karl Pichardo MD [Primary Care Provider] - Activity Restrictions/Additional Instructions: Please stop the Keflex as they feel this was the cause of your adverse medication reaction/vomiting today. Please begin the Macrobid/nitrofurantoin for the UTI you were diagnosed with recently and begin taking the magnesium oxide once daily as directed to keep your magnesium value at a stable level. Disposition Disposition: Home, Self Care Discharge Date/Time: 08/25/21 04:21
[2021-08-24] MEDS: Ondansetron 4 MG/2 ML Vial IV (23:11)
[2021-08-24 23:15] LABS: Anion Gap 12 (5-15); BUN 14 mg/dL (7-18); BUN/Creat Ratio 17.4 RATIO (10-20); Calcium,Total 9.5 mg/dL (8.5-10.1); Chloride 101 mmol/L (98-107); EST Glomerular Filtration Rate 79 mL/min (>60); Est Glom Filt Rate - Afr Amer 95 mL/min (>60); Estimated Creatinine Clearance 80.15 ml/min; Glucose 240 mg/dL (74-106); Potassium 3.4 mmol/L (3.5-5.1); Sodium Level 133 mmol/L (136-145)
[2021-08-24] MEDS: Magnesium Sulfate 4gm/100mL 4 GM/100 ML IV.SOLN. IV (23:50)
[2021-08-25 02:04] VITALS: BP 123/84; PULSE 92; RESP 19; O2SAT 98
[2021-08-25] MEDS: Ondansetron 4 MG/2 ML Vial IV (04:20)
[2021-08-25 04:21] VITALS: BP 128/72; PULSE 78; RESP 16; O2SAT 97
== END 2021-08-25 04:21 | disposition home or self-care (01) ==
PROVIDERS: Emergency Provider Emergency Medicine; PCP Family Medicine; Visit Provider Emergency Medicine
DX: E83.42 Hypomagnesemia (principal); R11.2 Nausea with vomiting, unspecified
CPT/HCPCS: 80048; 83735; 85025; 96365; 96366; 96375; 99284; J7030; A4216; J2405

== ENCOUNTER 2021-09-24 12:54 | Emergency (ER) | payer MEDICAID, SELFPAY ==
[2021-09-24 12:55] VITALS: BP 165/96; PULSE 104; RESP 16; TEMP 36; O2SAT 98; BMI 26.6
[2021-09-24 12:56] VITALS: BP 165/96; PULSE 104; RESP 16; TEMP 36; O2SAT 98
[2021-09-24 14:56] LABS: Mucous, Urine 0 SEEN /hpf (<or=2+); Red Blood Cells-Urine 0 SEEN /hpf (0-5)
[2021-09-24 15:00] LABS: Color, Urine Yellow (Yellow); Glucose, Dipstick Normal (Normal); Ketone-Dipstick 5 mg/dl (Negative); Leukocyte Esterase-Dipstick 25 /ul (Negative); Nitrite-Dipstick Negative (Negative); Occult Blood-Urine Negative /ul (Negative); Protein-Dipstick 100 mg/dl (Negative); Specific Gravity, Urine 1.025 (1.002-1.030); Urine Bilirubin Dipstick 1 mg/dL (Negative); Urine Clarity Sl. Cloudy (Clear); Urine Urobilinogen 1 mg/dl (Normal)
[2021-09-24 15:05] LABS: Amorphous Sediment 1+; Bacteria 1+ /hpf (None Seen); Squamous Epithelial Cells - UA 0-5 SEEN /hpf (5-10); White Blood Cells 5-10 SEEN /hpf (0-5)
--- NOTE | 2021-09-24 15:51 | EDS_ITS ---
HPI History of Present Illness Chief Complaint: Complaint Detail of Chief Complaint: Low central back pain, aches, nausea and dark urine Informant: patient Onset/Context/Timing Onset: Days (Approximately 2 days ago) Context: Sudden Onset Timing: Continuous Quality: Pain Location: Central low back sacral area Current Severity: Mild Maximum Severity: Moderate Worsened by: Nothing Relieved by: Nothing Associated Symptoms Associated Symptoms: Previously documented Narrative Narrative: Patient is a 56-year-old woman who presents with with concern she has a urinary tract infection. States her urine is dark. She has central low back pain with body aches and nausea. She had similar presentation 1 month ago and was diagnosed urinary tract infection. She states is having recurrent urinary tract infections. She denies documented fever. She denied chills. She denies headache. Denies visual, ocular auditory symptoms. She denies vomiting. She had mild diarrhea. 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 Prior similar symptoms: Yes Recent Illness/Hospitalization: Yes [facility] Medical History Asthma Asthma Bronchitis Chest pain Contusion of right ankle Contusion of right foot Depressed Diabetes mellitus type II, controlled Dyspnea on exertion Essential hypertension GERD (gastroesophageal reflux disease) GI bleed Hemorrhoids Hyperlipidemia Nausea & vomiting Near syncope Orthostatic hypotension Pneumonia Positive PPD, treated RSD (reflex sympathetic dystrophy) Shoulder pain Statin intolerance Strain of unspecified muscle, fascia and tendon at shoulder and upper arm level, right arm, initial encounter Home Medications duloxetine 60 mg PO BID 11/30/13 [History Last Taken 08/19/19] albuterol sulfate 2 puff INHALATION Q4H PRN PRN 03/04/14 [History Last Taken 08/15/19] lisinopril 20 mg-hydrochlorothiazide 25 mg tablet 1 tab PO QHS tab 05/03/19 [History Last Taken 08/19/19] lorazepam 1 mg PO TID PRN PRN 05/09/19 [History Last Taken 08/17/19] ondansetron HCl 4 mg PO Q6H PRN PRN 08/19/19 [History Last Taken 08/18/19] ibuprofen 800 mg tablet 800 mg PO BID PRN PRN tab 01/04/20 [History Last Taken Unknown] omeprazole 20 mg capsule,delayed release 20 mg PO DAILY cap 01/04/20 [History Last Taken Unknown] estradiol 1 mg tablet 1.5 mg PO DAILY tab 01/06/20 [History Last Taken Unknown] budesonide-formoterol HFA 160 mcg-4.5 mcg/actuation aerosol inhaler 2 puff INHALATION BID #10.2 g 01/07/20 [Rx Last Taken Unknown] cyanocobalamin (vitamin B-12) 300 mcg SUBLINGUAL DAILY 07/29/20 [History Last T aken Unknown] oxycodone-acetaminophen 1 tab PO Q6H PRN PRN 07/29/20 [History Last Taken Unknown] gabapentin 100 mg PO DAILY 08/17/20 [History Last Taken Unknown] PNV cmb#95-ferrous fumarate-FA 1 ea PO DAILY 10/04/20 [History Last Taken Unknown] diphenhydramine HCl 25 mg PO DAILY 10/04/20 [History Last Taken Unknown] docusate sodium 100 mg PO DAILY 10/04/20 [History Last Taken Unknown] ondansetron 8 mg PO Q8H PRN PRN #20 tab 10/05/20 [Rx Last Taken Unknown] azithromycin 250 mg PO DAILY #4 tablet 12/31/20 [Rx Last Taken Unknown] clarithromycin 500 mg PO BID 01/03/21 [History Last Taken Unknown] metronidazole 500 mg PO BID 01/03/21 [History Last Taken Unknown] ezetimibe 10 mg tablet 10 mg PO DAILY #90 tab 04/19/21 [Rx Last Taken Unknown] prednisone 10 mg tablet 10 mg PO .COMPLEX #30 tab 05/20/21 [Rx Last Taken Unknown] cephalexin 500 mg PO Q6 #40 capsule 08/23/21 [Rx Last Taken Unknown] glimepiride 4 mg PO DAILY #30 tab 08/23/21 [Rx Last Taken Unknown] magnesium oxide 400 mg PO DAILY 30 Days #30 tab 08/25/21 [Rx Last Taken Unknown] nitrofurantoin monohyd/m-cryst [Macrobid] 100 mg PO BID 7 Days #14 cap 08/25/21 [Rx Last Taken Unknown] ondansetron 4 mg PO TID PRN PRN #21 tab 08/25/21 [Rx Last Taken Unknown] nitrofurantoin monohyd/m-cryst 100 mg PO Q12 #14 capsule 09/24/21 [Rx Last Taken Unknown] Allergy/AdvReac Type Severity Reaction Status Date / Time adalimumab [From Humira] Allergy Unknown Verified 08/23/21 11:23 amoxicillin trihydrate Allergy Unknown Verified 08/23/21 11:23 [From Augmentin] codeine Allergy Itching Verified 08/23/21 11:23 etanercept [From Enbrel] Allergy Unknown Verified 08/23/21 11:23 leflunomide [From Arava] Allergy Other Verified 08/23/21 11:23 metoprolol tartrate Allergy Unknown Verified 08/23/21 11:23 [From Lopressor] morphine sulfate Allergy Unknown Verified 08/23/21 11:23 [From Embeda] naltrexone HCl [From Embeda] Allergy Unknown Verified 08/23/21 11:23 oxymorphone [Oxymorphone] Allergy Unknown Verified 08/23/21 11:23 pioglitazone HCl [From Actos] Allergy Other Verified 08/23/21 11:23 pneumococcal 23-valent Allergy Unknown Verified 08/23/21 11:23 polysacchari [From Pneumovax 23] potassium clavulanate Allergy Unknown Verified 08/23/21 11:23 [From Augmentin] Loxaacb-EDU-CsF Reductase Allergy Unknown Verified 08/23/21 11:23 Inhibitor [Twyhotr-Bre-Mje Reductase Inhibitor] Sulfa (Sulfonamide Allergy Anaphylaxis Verified 08/23/21 11:23 Antibiotics) sulfamethoxazole Allergy Anaphylaxis Verified 08/23/21 11:23 [From Bactrim] telithromycin [From Ketek] Allergy Unknown Verified 08/23/21 11:23 tramadol HCl [From Ultram] Allergy Unknown Verified 08/23/21 11:23 trimethoprim [From Bactrim] Allergy Anaphylaxis Verified 08/23/21 11:23 Family History Father Diabetes Hypertension Mother Diabetes Hypertension Other Cancer Surgical History Hx of shoulder surgery Social History (Updated 09/24/21 @ 15:[address] Ron Guerrero MD) household members: none Smoking Status: Never smoker alcohol intake: current alcohol intake frequency: 0-2 drinks per day Alcohol type: hard liquor ROS ROS ED Constitutional Constitutional ED: Denies chills, fever(s), subjective, sweats or weight loss Eyes Eyes: Denies blurry vision or change in vision ENT ENT ED: Denies ear pain, rhinorrhea or sore throat Cardiovascular Cardiovascular: Denies chest pain or palpitations Respiratory/Chest Respiratory/Chest: Denies cough or dyspnea Gastrointestinal Gastrointestinal: Reports diarrhea and nausea; Denies abdominal pain or vomiting Genitourinary Genitourinary ED: Denies dysuria, hematuria or urinary frequency Musculoskeletal Musculoskeletal: Reports back pain and other Details: Complains of cramping in her calves ; Denies arthralgias, myalgias or neck pain Integumentary Denies rash Neurologic Neurologic: Denies headache(s) or weakness EXAM Physical Exam Const Vital Signs: 09/24/21 12:55 09/24/21 12:56 Temperature 96.8 F L 96.8 F L Temperature Source Temporal Temporal Pulse Rate 104 H 104 H Respiratory Rate 16 16 Blood Pressure 165/96 H 165/96 H Blood Pressure Mean 119 119 Pulse Ox 98 98 Oxygen Delivery Method Room Air Room Air Positive well nourished, well developed and obese General Appearance ED: well developed and NAD; Negative for cyanotic or diaphoretic Nutritional Appearance: obese HEENT HEENT Narrative: Ears normal. Nares patent. Mucosa moist. Negative for trauma or tenderness Eyes PERRL and EOMs intact bilaterally General Eye ED: Negative for pale conjunctiva or scleral icterus Neck supple Resp normal respiratory effort Cardio regular rate and regular rhythm GI normal to inspection, nondistended, normoactive bowel sounds and non-distended GI Narrative: Minimal suprapubic discomfort. Palpation: soft Back/Spine no CVA tenderness Cervical Spine: Negative for cervical spine tenderness Thoracic Spine / Upper Back: Negative for thoracic spinal tenderness or paraspinal muscle tenderness Lumbar Spine / Lower Back: Negative for lumbar spinal tenderness Neuro oriented x3 and CN's II-XII intact bilaterally Sensorium / Orientation: alert Psych mental status grossly normal Skin no rashes or lesions noted and no wounds MDM MDM MDM Narrative Medical decision making narrative: Patient presents terms concerning for urinary tract infection. UA was obtained per nurse protocol. UA is consistent with infection. She has pyuria and bacteria. Will treat with nitrofurantoin based on her allergies. Urine culture was sent since she is having recurrent urinary tract infections and she was referred to urology. Lab Data Labs: Laboratory Results - last 24 hr 09/24/21 14:30 Urine Color Yellow Urine Clarity Sl. Cloudy Urine pH 6.0 Ur Specific [place] 1.025 Urine Protein 100 H Urine Glucose (UA) Normal Urine Ketones 5 H Urine Occult Blood Negative Urine Nitrite Negative Urine Bilirubin 1 H Urine Urobilinogen 1 H Ur Leukocyte Esterase 25 H Urine RBC 0 SEEN Urine WBC 5-10 SEEN Ur Squamous Epith Cells 0-5 SEEN Amorphous Sediment 1+ Urine Bacteria 1+ Urine Mucus 0 SEEN Discharge Plan Triage Chief Complaint: Complaint ED Provider: Ron Guerrero Dx/Rx/DC Orders Clinical Impression: Recurrent urinary tract infection Prescriptions: New nitrofurantoin monohyd/m-cryst [nitrofurantoin monohyd/m-cryst] 100 MG capsule 100 mg PO Q12 Qty: 14 RF: 0 No Action ibuprofen 800 mg tablet 800 mg PO BID PRN PRN (Reason: pain/fever) RF: 0 estradiol 1 mg tablet 1.5 mg PO DAILY RF: 0 budesonide-formoterol [Symbicort] 160-4.5 mcg/actuation HFA aerosol inhaler 2 puff inhalation BID Qty: 10.2 RF: 3 prednisone 10 mg tablet 10 mg PO .COMPLEX Qty: 30 RF: 0 duloxetine 60 MG capsule 60 mg PO BID RF: 0 albuterol sulfate 1 PUFF inhaler 2 puff INHALATION Q4H PRN PRN (Reason: sob) RF: 0 omeprazole 20 mg capsule,delayed release(DR/EC) 20 mg PO DAILY RF: 0 lisinopril-hydrochlorothiazide 20-25 mg tablet 1 tab PO QHS RF: 0 lorazepam 1 MG tablet 1 mg PO TID PRN PRN (Reason: Anxiety) RF: 0 ondansetron HCl 4 MG tablet 4 mg PO Q6H PRN PRN (Reason: Nausea) RF: 0 cyanocobalamin (vitamin B-12) 100 MCG tablet 300 mcg sublingual DAILY RF: 0 oxycodone-acetaminophen 1 TABLET tablet 1 tab PO Q6H PRN PRN (Reason: Pain Score 1-10) RF: 0 gabapentin 100 MG capsule 100 mg PO DAILY RF: 0 diphenhydramine HCl 25 MG capsule 25 mg PO DAILY RF: 0 docusate sodium 100 MG capsule 100 mg PO DAILY RF: 0 PNV cmb#95-ferrous fumarate-FA 1 EACH tablet 1 ea PO DAILY RF: 0 ondansetron 4 MG tablet 8 mg PO Q8H PRN PRN (Reason: Nausea) Qty: 20 RF: 0 azithromycin [azithromycin] 250 MG tablet 250 mg PO DAILY Qty: 4 RF: 0 clarithromycin 500 mg Tablet 500 mg PO BID RF: 0 metronidazole 500 mg Tablet 500 mg PO BID RF: 0 cephalexin [cephalexin] 500 MG capsule 500 mg PO Q6 Qty: 40 RF: 0 glimepiride 4 mg tablet 4 mg PO DAILY Qty: 30 RF: 0 ondansetron 4 mg tablet,disintegrating 4 mg PO TID PRN PRN (Reason: nausea and vomiting) Qty: 21 RF: 2 magnesium oxide 400 mg (241.3 mg magnesium) tablet 400 mg PO DAILY 30 Days Qty: 30 RF: 2 nitrofurantoin monohyd/m-cryst [Macrobid] 100 mg capsule 100 mg PO BID 7 Days Qty: 14 RF: 0 ezetimibe 10 mg tablet 10 mg PO DAILY Qty: 90 RF: 3 Primary Care Provider: Karl Pichardo Referrals: Nile Mora MD [STAFF PHYSICIAN] - 1-2 Weeks Karl Pichardo MD [Primary Care Provider] - 3-5 Days Activity Restrictions/Additional Instructions: Since you are having recurrent urinary tract infections you were referred to the urologist on-call Dr. Mora. Disposition Disposition: Home, Self Care
[2021-09-24] MEDS: Nitrofurantoin Macrocrystals 100 MG Capsule PO (16:10)
[2021-09-24 16:11] VITALS: BP 154/88; PULSE 101; RESP 17; TEMP 36.1; O2SAT 97
== END 2021-09-24 16:14 | disposition home or self-care (01) ==
LOC: ED 15:58
PROVIDERS: Emergency Provider Emergency Medicine; PCP Family Medicine; Visit Provider Emergency Medicine
DX: N39.0 Urinary tract infection, site not specified (principal); M54.50 Low back pain, unspecified; E66.9 Obesity, unspecified
CPT/HCPCS: 81001; 99284

== ENCOUNTER 2021-11-24 09:58 | Emergency (ER) | payer MEDICAID, SELFPAY ==
[2021-11-24 09:58] VITALS: BP 160/91; PULSE 92; RESP 16; TEMP 36.6; O2SAT 97; BMI 26.6
[2021-11-24 10:08] VITALS: O2SAT 97
--- NOTE | 2021-11-24 10:12 | CT_ITS ---
STUDY: CT BRAIN WITHOUT CONTRAST REASON FOR EXAM: Female, 56 years old. Headache, N/V, trauma RADIATION DOSAGE (If Supplied By Facility): CTDIvol = ( 47.06 ) mGy, DLP = ( 890.33 ) mGycm TECHNIQUE: Transaxial CT imaging of the brain was performed without administration of intravenous contrast material. Individualized dose optimization techniques were used for this CT. COMPARISON: Noncontrast CT brain 08/23/2021 FINDINGS: Normal soft tissue structures. Normal calvarium. Normal size ventricles and extra-axial spaces for the patient''s age. Normal white matter tracts of the cerebral hemispheres. Normal basal ganglia and thalami. Normal brainstem. Normal cerebellum. There is no intracranial hemorrhage. There are no findings of an acute ischemic infarction. There are widened ostiomeatal cortices of the maxillary sinuses and some loss of the floors of the ethmoid air cells, consistent with postsurgical change. CT/Brain/Head without Contrast IMPRESSION: 1. No acute intracranial pathology. 2. Findings consistent with postsurgical changes at the medial ortega of bilateral maxillary antra and floors of the ethmoid air cells. Electronically Signed: Amor Jamil MD at 10:44 EDT ,
--- NOTE | 2021-11-24 10:12 | CT_ITS ---
STUDY: CT FACIAL BONES WITHOUT CONTRAST REASON FOR EXAM: Female, 56 years old. Pain, trauma, visual field deficit RADIATION DOSAGE (If Supplied By Facility): CTDIvol = ( 25.01 ) mGy, DLP = ( 511.14 ) mGycm TECHNIQUE: The patient was scanned in a multi detector CT scanner. Sagittal and coronal images were reconstructed. Individualized dose optimization techniques were used for this CT. COMPARISON: None. FINDINGS: Normal soft tissue structures. Normal orbital ortega and orbital contents. Normal nasal bones and anterior nasal spine. Degenerative narrowing at the right temporomandibular joint. Normal facial bones. There is no demonstrated fracture. There are widened ostiomeatal cortices of the maxillary sinuses and some loss of the floors of the ethmoid air cells, consistent with postsurgical change. CT/Sinus/Facial Bone IMPRESSION: 1. No acute facial fracture. 2. Chronic postsurgical changes involving the medial ortega of the bilateral maxillary antra and floors of the ethmoid sinuses. 3. Degenerative narrowing at the right temporomandibular joint. Electronically Signed: Amor Jamil MD at 11:34 EDT ,
--- NOTE | 2021-11-24 10:15 | EDS_ITS ---
HPI HPI - Fall History of Present Illness Chief Complaint: Fall Informant: patient Occured/Mechanism Occurred: Days (2) Mechanism/Context: Yes cannot recall fall Usually ambulates: Without assistance Pain/Injury Location: head/face Quality of Pain: Aching and - (sore) Current Severity: Moderate Maximum Severity: Moderate Worsened by: palpation affected areas Relieved by: nothing Associated Symptoms Associated Symptoms: Positive for Amnesia (event only, but I was taking Tylenol PM); Negative for Parasthesias, Weakness, Loss of function and Inability to ambulate Narrative Narrative: Patient states that she fell and hit her head and face and her right side but she cannot remember anything about the fall. She states she is trying to adjust to night shifts which are new for her and she has been taking Tylenol PM, and it has been making her disoriented. However, she is pretty sure she fell 2 nights ago, and then went into work, and then she went to work again last night and persistently has headaches, nausea, vomiting, occasional vision di sturbance/blurriness, and facial pain. She is sore in her right abdominal wall, and her right hip but she is able to walk without any difficulty, she states she had sustained some type of scrape in the right hip area and is not sure exactly how, but it is doing okay. She has RSD, states it started in her left lower extremity went throughout her whole body and though symptoms are no different. [facility] Medical History Asthma Asthma Bronchitis Chest pain Contusion of right ankle Contusion of right foot Depressed Diabetes mellitus type II, controlled Dyspnea on exertion Essential hypertension GERD (gastroesophageal reflux disease) GI bleed Hemorrhoids Hyperlipidemia Nausea & vomiting Near syncope Orthostatic hypotension Pneumonia Positive PPD, treated RSD (reflex sympathetic dystrophy) Shoulder pain Statin intolerance Strain of unspecified muscle, fascia and tendon at shoulder and upper arm level, right arm, initial encounter Home Medications duloxetine 120 mg PO DAILY 11/30/13 [History Last Taken 08/19/19] albuterol sulfate 2 puff INHALATION Q4H PRN PRN 03/04/14 [History Last Taken 08/15/19] lisinopril 20 mg-hydrochlorothiazide 25 mg tablet 1 tab PO QHS tab 05/03/19 [History Last Taken 08/19/19] lorazepam 1 mg PO TID PRN PRN 05/09/19 [History Last Taken 08/17/19] ibuprofen 800 mg tablet 800 mg PO BID PRN PRN tab 01/04/20 [History Last Taken Unknown] omeprazole 20 mg capsule,delayed release 20 mg PO DAILY cap 01/04/20 [History Last Taken Unknown] estradiol 1 mg tablet 1.5 mg PO DAILY tab 01/06/20 [History Last Taken Unknown] oxycodone-acetaminophen 1 tab PO Q6H PRN PRN 07/29/20 [History Last Taken Unknown] diphenhydramine HCl 25 mg PO DAILY 10/04/20 [History Last Taken Unknown] ondansetron 8 mg PO Q8H PRN PRN #20 tab 10/05/20 [Rx Last Taken Unknown] ezetimibe 10 mg tablet 10 mg PO DAILY #90 tab 04/19/21 [Rx Last Taken Unknown] glimepiride 4 mg PO DAILY #30 tab 08/23/21 [Rx Last Taken Unknown] magnesium oxide 400 mg PO DAILY 30 Days #30 tab 08/25/21 [Rx Last Taken Unknown] Allergy/AdvReac Type Severity Reaction Status Date / Time adalimumab [From Humira] Allergy Unknown Verified 08/23/21 11:23 amoxicillin trihydrate Allergy Unknown Verified 08/23/21 11:23 [From Augmentin] codeine Allergy Itching Verified 08/23/21 11:23 etanercept [From Enbrel] Allergy Unknown Verified 08/23/21 11:23 leflunomide [From Arava] Allergy Other Verified 08/23/21 11:23 metoprolol tartrate Allergy Unknown Verified 08/23/21 11:23 [From Lopressor] morphine sulfate Allergy Unknown Verified 08/23/21 11:23 [From Embeda] naltrexone HCl [From Embeda] Allergy Unknown Verified 08/23/21 11:23 oxymorphone [Oxymorphone] Allergy Unknown Verified 08/23/21 11:23 pioglitazone HCl [From Actos] Allergy Other Verified 08/23/21 11:23 pneumococcal 23-valent Allergy Unknown Verified 08/23/21 11:23 polysacchari [From Pneumovax 23] potassium clavulanate Allergy Unknown Verified 08/23/21 11:23 [From Augmentin] Ukjczjv-FKN-FqL Reductase Allergy Unknown Verified 08/23/21 11:23 Inhibitor [Kcvjgbf-Kuk-Ymi Reductase Inhibitor] Sulfa (Sulfonamide Allergy Anaphylaxis Verified 08/23/21 11:23 Antibiotics) sulfamethoxazole Allergy Anaphylaxis Verified 08/23/21 11:23 [From Bactrim] telithromycin [From Ketek] Allergy Unknown Verified 08/23/21 11:23 tramadol HCl [From Ultram] Allergy Unknown Verified 08/23/21 11:23 trimethoprim [From Bactrim] Allergy Anaphylaxis Verified 08/23/21 11:23 Family History Father Diabetes Hypertension Mother Diabetes Hypertension Other Cancer Surgical History Hx of shoulder surgery Social History household members: none Smoking Status: Never smoker alcohol intake: current alcohol intake frequency: 0-2 drinks per day Alcohol type: hard liquor ROS ROS ED Constitutional Constitutional ED: Denies chills or fever(s) Eyes Eyes: Reports blurry vision and change in vision; Denies diplopia ENT ENT ED: Reports facial pain; Denies ear pain, epistaxis or rhinorrhea Cardiovascular Cardiovascular: Denies chest pain or palpitations Respiratory/Chest Respiratory/Chest: Denies cough or dyspnea Gastrointestinal Gastrointestinal: Reports nausea and vomiting; Denies abdominal pain, diarrhea or melena Genitourinary Genitourinary ED: Denies dysuria or hematuria Musculoskeletal Musculoskeletal: Reports as per HPI and extremity pain; Denies back pain or neck pain Integumentary Reports Abrasions; Denies abscess, laceration or rash Neurologic Neurologic: Reports headache(s); Denies confusion, paresthesias or weakness EXAM Physical Exam Const Vital Signs: 11/24/21 09:58 11/24/21 10:08 Temperature 97.8 F Temperature Source Temporal Pulse Rate 92 Respiratory Rate 16 Respiratory Effort Normal Non-Labored Respiratory Depth Normal Respiratory Pattern Normal Blood Pressure 160/91 H Blood Pressure Mean 114 Pulse Ox 97 97 Oxygen Delivery Method Room Air Room Air Positive well nourished and well developed General Appearance ED: well developed and NAD HEENT Reports TM's clear and nasal mucous membranes and turbinates normal HEENT Narrative: Facial tenderness right superior lateral maxillary bone, just to the lateral aspect and inferior to the right eye, no crepitance or deformity, no zygomatic tenderness. No infraorbital hypoesthesia. Tender at the frontal bone superior to the nasal bridge but the nose is atraumatic. Tender at the left lower frontal bone and superior orbital brim with some mild periorbital ecchymosis on the left. No enophthalmos or proptosis. No intraoral/dental injury. Face and Sinus: facial tenderness Tympanic Membrane ED: Yes TM's clear Eyes PERRL and EOMs intact bilaterally Visual Acuity: other Other Details: no entrapment with extraocular movements but mild pain on the left Visual Field: visual field cut by quadrant Upper Inner Visual Field Cut: left and Lower Inner Visual Field Cut: left and other Other Details: Normal visual hart throughout right eye Neck full ROM and supple General: Negative for tenderness Chest Wall inspection of chest normal and palpation of chest normal Chest: symmetrical chest wall rise; Negative for crepitus or tenderness Resp normal respiratory effort and clear to auscultation bilaterally Percussion: other equal BS bilat Cardio no murmurs Rate: regular rate Rhythm: regular rhythm GI normal to inspection, nondistended, normoactive bowel sounds, soft to palpation and non-tender GI Narrative: Small contusion right lateral abdominal wall without any significant abdominal tenderness Back/Spine normal ROM Cervical Spine: Negative for cervical spine tenderness Thoracic Spine / Upper Back: Negative for thoracic spinal tenderness Lumbar Spine / Lower Back: Negative for lumbar spinal tenderness Extremity normal to inspection and full ROM Extremity Narrative: Mild tenderness head contusion right lateral hip, no pain with internal/external rotation of the hip joint General Extremety ED: Yes tenderness Neuro oriented x3, CN's II-XII intact bilaterally, moves all extremities, no focal motor deficits, no sensory deficits noted and gait normal Marston Coma Scale: document GCS findings Spontaneous Obeys Commands Oriented 15 Sensorium / Orientation: awake and alert Psych mental status grossly normal and thought process normal Skin Skin Narrative: Healing superficial abrasion linear right lateral hip without signs of infection Lesions: no lesions Rashes: no rashes MDM MDM MDM Narrative Medical decision making narrative: Obtain CT of the brain and maxillofacial bones, both are negative for acute injury. The patient was offered Zofran, then she declined it and took her own that she had with her. She states she was still nauseated. She was given an isopropanol pad to SNF. I do not want to make her more somnolent with antiemetics that could cause this, nor do I want to cause her any abnormal side effects after looking through her extensive list of adverse reactions to medications which include narcotics which she was asking for for her pain which is 10/10. I offered her Tylenol and ibuprofen saying that with concussion which she claims to have by name and very well may have, narcotics are contraindicated, and I do not recommend. When she excepted the Tylenol, she suddenly started being hysterical and screaming out that her head was hurting so bad. She was additionally given ibuprofen. I asked her if an injection of Toradol is something she can tolerate given her extensive list of medication reactions, she states she can tolerate ibuprofen but in the past Toradol did not go well. The patient was so hysterical that she excepted an offer for some Ativan which was given to her. She will be observed until she is able to be picked up by someone. Close outpatient follow-up advised, and I advised her to avoid diphenhydramine and other antihistamines such as Tylenol PM. Radiography Diagnostic Testing: Clinical Impression(s) from Imaging Studies Brain CT 11/24/21 10:12 IMPRESSION: 1. No acute intracranial pathology. 2. Findings consistent with postsurgical changes at the medial ortega of bilateral maxillary antra and floors of the ethmoid air cells. Electronically Signed: Amor Jamil MD at 10:44 EDT Reading Location ID and State: [id number] / [employer] , Service support , Facial/Sinus 11/24/21 10:12 IMPRESSION: 1. No acute facial fracture. 2. Chronic postsurgical changes involving the medial ortega of the bilateral maxillary antra and floors of the ethmoid sinuses. 3. Degenerative narrowing at the right temporomandibular joint. Electronically Signed: Amor Jamil MD at 11:34 EDT , Discharge Plan Triage Chief Complaint: Fall ED Provider: Andry Madrid Dx/Rx/DC Orders Clinical Impression: Closed head injury with concussion, Contusion of face, Contusion of hip, right, Anxiety attack Instructions: After a Concussion Prescriptions: No Action ibuprofen 800 mg tablet 800 mg PO BID PRN PRN (Reason: pain/fever) RF: 0 estradiol 1 mg tablet 1.5 mg PO DAILY RF: 0 duloxetine 60 MG capsule 120 mg PO DAILY RF: 0 albuterol sulfate 1 PUFF inhaler 2 puff INHALATION Q4H PRN PRN (Reason: sob) RF: 0 omeprazole 20 mg capsule,delayed release(DR/EC) 20 mg PO DAILY RF: 0 lisinopril-hydrochlorothiazide 20-25 mg tablet 1 tab PO QHS RF: 0 lorazepam 1 MG tablet 1 mg PO TID PRN PRN (Reason: Anxiety) RF: 0 oxycodone-acetaminophen 1 TABLET tablet 1 tab PO Q6H PRN PRN (Reason: Pain Score 1-10) RF: 0 diphenhydramine HCl 25 MG capsule 25 mg PO DAILY RF: 0 ondansetron 4 MG tablet 8 mg PO Q8H PRN PRN (Reason: Nausea) Qty: 20 RF: 0 glimepiride 4 mg tablet 4 mg PO DAILY Qty: 30 RF: 0 magnesium oxide 400 mg (241.3 mg magnesium) tablet 400 mg PO DAILY 30 Days Qty: 30 RF: 2 ezetimibe 10 mg tablet 10 mg PO DAILY Qty: 90 RF: 3 Primary Care Provider: Karl Pichardo Referrals: Karl Pichardo MD [Primary Care Provider] - 1 Week if not improving Activity Restrictions/Additional Instructions: Narcotic pain medications are not recommended in context of concussion. We also recommend that you avoid antihistamines such as Benadryl or the 1 that is in Tylenol PM given your recent symptoms and events. If you have concussion symptoms longer than 1 week, make sure you follow-up with your doctor. Disposition Disposition: Home, Self Care
[2021-11-24] MEDS: Ondansetron ODT 4 MG Tablet 8 MG PO (10:17)
--- NOTE | 2021-11-24 10:43 | ED.RN ---
PT STATES SHE CONTINUES TO BE NAUSEATED. STATES SHE HAS PAIN 10 OUT OF [address] MYERS, PT OFFERED TYLENOL. PT STATES SHE HAS TAKEN OPIATE MEDICATIONS WITH BENADRYL BUT CANNOT REMEMBER WHAT. REQUEST WE LOOK IT UP. PT AWARE NARCOTICS NOT INDICATED WITH A HEAD INJURY
--- NOTE | 2021-11-24 10:49 | ED.RN ---
PT GIVEN ALCOHOL SWB TO SNIFF TO EASE NAUSEA
[2021-11-24] MEDS: Acetaminophen 500 MG Tablet 1000 MG PO (11:26)
[2021-11-24] MEDS: Ibuprofen 600 MG Tablet PO (11:28)
[2021-11-24] MEDS: LORazepam 2 MG/ML Syringe 1 MG IM (11:40)
[2021-11-24 11:54] VITALS: PULSE 100; RESP 18; O2SAT 99
== END 2021-11-24 11:56 | disposition home or self-care (01) ==
PROVIDERS: Emergency Provider Emergency Medicine; PCP Family Medicine; Visit Provider Emergency Medicine
DX: S06.0X0A Concussion without loss of consciousness, initial encounter (principal); S00.83XA Contusion of other part of head, initial encounter; S70.01XA Contusion of right hip, initial encounter; F41.9 Anxiety disorder, unspecified; W19.XXXA Unspecified fall, initial encounter
CPT/HCPCS: 70450; 70486; 96372; 99284

== ENCOUNTER 2022-03-11 15:17 | Emergency (ER) | payer MEDICAID, SELFPAY ==
[2022-03-11] VITALS (7 sets, daily range): BP systolic 128–138; BP diastolic 73–92; PULSE 81–96; RESP 16–18; TEMP 36.6–37; O2SAT 96–100; BMI 27.6
--- NOTE | 2022-03-11 16:39 | EKG12_ITS ---
Test Reason : general weakness Blood Pressure : / mmHG Vent. Rate : 085 BPM Atrial Rate : 085 BPM P-R Int : 148 ms QRS Dur : 076 ms QT Int : 382 ms P-R-T Axes : 017 017 020 degrees QTc Int : 454 ms Normal sinus rhythm Normal ECG Confirmed by EVA MURILLO, BRADEN ([id number]), commissioning editor TRISTON ENCARNACION ([id number]) on 03/13/2022 12:44:33 PM Referred By: Confirmed By:BRADEN VELASQUEZ MD
[2022-03-11] MEDS: 0.9% Normal Saline 1,000 ML 1000 ML IV (16:58)
[2022-03-11] MEDS: Ondansetron 4 MG/2 ML Vial IV (16:59)
--- NOTE | 2022-03-11 17:04 | RAD_ITS ---
EXAM: XR CHEST, 1 VIEW CLINICAL INDICATION: near syncope TECHNIQUE: Frontal view of the chest. This report was created using [employer] report generation technology. COMPARISON: 08/23/2021 FINDINGS: LUNGS AND PLEURAL SPACES: Unremarkable. No consolidation or edema. No pneumothorax. No effusion. HEART: Unremarkable. Cardiac silhouette not enlarged. MEDIASTINUM: Central airways and mediastinal contour are unremarkable. BONES/JOINTS: Unremarkable. SOFT TISSUES: Unremarkable. RAD/Chest 1 View (Portable) IMPRESSION: No radiographic evidence of acute cardiopulmonary disease. Electronically Signed: Moustapha Moore MD at 17:18 EDT ,
--- NOTE | 2022-03-11 17:11 | EDS_ITS ---
HPI History of Present Illness Chief Complaint: General Illness Narrative Narrative: 56-year-old female presenting with generalized weakness. She states that she is felt weak all day today. She reports that she has had which she gets a urinary tract infection for weeks. She has not had a fever or chills. She does feel achy. He is not had any chest pain or shortness of breath. She does complain of dysuria and urinary frequency. Patient states she has history of UTIs in the past. Patient states she had a a near syncopal episode today at work. She states that she was shaking and was awake but just felt weak. No history of seizures. [facility] Medical History Asthma Asthma Bronchitis Chest pain Contusion of right ankle Contusion of right foot Depressed Diabetes mellitus type II, controlled Dyspnea on exertion Episode of syncope Essential hypertension GERD (gastroesophageal reflux disease) GI bleed Hemorrhoids Hyperlipidemia Nausea & vomiting Near syncope Orthostatic hypotension Pneumonia Positive PPD, treated RSD (reflex sympathetic dystrophy) Shoulder pain Statin intolerance Strain of unspecified muscle, fascia and tendon at shoulder and upper arm level, right arm, initial encounter Urinary tract infection with hematuria Home Medications duloxetine 60 mg capsule,delayed release 120 mg PO DAILY ANXIETY 11/30/13 [History Last Taken 08/19/19] albuterol sulfate 90 mcg/actuation aerosol inhaler 2 puff inhalation Q4H PRN PRN sob 03/04/14 [History Last Taken 08/15/19] lisinopril 20 mg-hydrochlorothiazide 25 mg tablet 1 tab PO QHS BP 05/03/19 [History Last Taken 08/19/19] lorazepam 1 mg tablet 1 mg PO TID PRN PRN Anxiety 05/09/19 [History Last Taken 08/17/19] ibuprofen 800 mg tablet 800 mg PO BID PRN PRN pain/fever 01/04/20 [History Last Taken Unknown] omeprazole 20 mg capsule,delayed release 20 mg PO DAILY GERD 01/04/20 [History Last Taken Unknown] estradiol 1 mg tablet 1.5 mg PO DAILY 01/06/20 [History Last Taken Unknown] oxycodone-acetaminophen 5 mg-325 mg tablet 1 tab PO Q6H PRN PRN Pain Score 1-10 07/29/20 [History Last Taken Unknown] diphenhydramine HCl 25 mg capsule 25 mg PO DAILY 10/04/20 [History Last Taken Unknown] ondansetron 4 mg disintegrating tablet 8 mg PO Q8H PRN PRN Nausea #20 tabs 10/05/20 [Rx Last Taken Unknown] ezetimibe 10 mg tablet 10 mg PO DAILY CHOLESTEROL #90 tabs 04/19/21 [Rx Last Taken Unknown] glimepiride 4 mg tablet 4 mg PO DAILY #30 tabs 08/23/21 [Rx Last Taken Unknown] magnesium oxide 400 mg (241.3 mg magnesium) tablet 400 mg PO DAILY 30 days #30 tabs 08/25/21 [Rx Last Taken Unknown] ondansetron 4 mg disintegrating tablet 4 mg PO Q8H PRN nausea and vomiting #14 tabs 03/11/22 [Rx Last Taken Unknown] Allergy/AdvReac Type Severity Reaction Status Date / Time adalimumab [From Humira] Allergy Unknown Verified 03/11/22 15:20 amoxicillin trihydrate Allergy Unknown Verified 03/11/22 15:20 [From Augmentin] codeine Allergy Itching Verified 03/11/22 15:20 etanercept [From Enbrel] Allergy Unknown Verified 03/11/22 15:20 leflunomide [From Arava] Allergy Other Verified 03/11/22 15:20 metoprolol tartrate Allergy Unknown Verified 03/11/22 15:20 [From Lopressor] morphine sulfate Allergy Unknown Verified 03/11/22 15:20 [From Embeda] naltrexone HCl [From Embeda] Allergy Unknown Verified 03/11/22 15:20 oxymorphone [Oxymorphone] Allergy Unknown Verified 03/11/22 15:20 pioglitazone HCl [From Actos] Allergy Other Verified 03/11/22 15:20 pneumococcal 23-valent Allergy Unknown Verified 03/11/22 15:20 polysacchari [From Pneumovax 23] potassium clavulanate Allergy Unknown Verified 03/11/22 15:20 [From Augmentin] [id number] Reductase Allergy Unknown Verified 03/11/22 15:20 Inhibitor [Zpxqqgh-Pts-Xbz Reductase Inhibitor] Sulfa (Sulfonamide Allergy Anaphylaxis Verified 03/11/22 15:20 Antibiotics) sulfamethoxazole Allergy Anaphylaxis Verified 03/11/22 15:20 [From Bactrim] telithromycin [From Ketek] Allergy Unknown Verified 03/11/22 15:20 tramadol HCl [From Ultram] Allergy Unknown Verified 03/11/22 15:20 trimethoprim [From Bactrim] Allergy Anaphylaxis Verified 03/11/22 15:20 Family History Father Diabetes Hypertension Mother Diabetes Hypertension Other Cancer Surgical History Hx of shoulder surgery Social History household members: none Smoking Status: Never smoker alcohol intake: current alcohol intake frequency: 0-2 drinks per day Alcohol type: hard liquor ROS ROS ED ROS Narrative Generalized weakness Constitutional Constitutional ED: Denies chills or fever(s) Eyes Eyes: Denies change in vision ENT ENT ED: Denies rhinorrhea or sore throat Cardiovascular Cardiovascular: Denies chest pain or palpitations Respiratory/Chest Respiratory/Chest: Denies cough or dyspnea Gastrointestinal Gastrointestinal: Reports nausea; Denies vomiting Genitourinary Genitourinary ED: Reports dysuria and urinary frequency Musculoskeletal Musculoskeletal: Reports myalgias; Denies arthralgias Integumentary Denies abscess or Abrasions Neurologic Neurologic: Denies headache(s) Psychiatric Psychiatric: Denies anxiety or depression EXAM Physical Exam Const Vital Signs: 03/11/22 15:20 03/11/22 15:23 03/11/22 16:17 Temperature 98.6 F 98.6 F Temperature Source Oral Oral Pulse Rate 96 96 Pulse Rate [Lying] Pulse Rate [Sitting (for 1 minute prior to obtaining)] Pulse Rate [Standing (for 1 minute prior to obtaining)] Respiratory Rate 18 18 Respiratory Effort Normal Non-Labored Respiratory Pattern Normal Blood Pressure 136/92 H 136/92 H Blood Pressure [Lying] Blood Pressure [Sitting (for 1 minute prior to obtaining)] Blood Pressure [Standing (for 1 minute prior to obtaining)] Blood Pressure Mean 106 Blood Pressure Mean [Lying] Blood Pressure Mean [Sitting (for 1 minute prior to obtaining)] Blood Pressure Mean [Standing (for 1 minute prior to obtaining)] Pulse Ox 97 97 Oxygen Delivery Method Room Air Room Air 03/11/22 17:18 03/11/22 17:23 03/11/22 19:11 Temperature 98.1 F Temperature Source Temporal Pulse Rate 94 Pulse Rate [Lying] 88 Pulse Rate [Sitting (for 1 minute prior to obtaining)] 87 Pulse Rate [Standing (for 1 minute prior to obtaining)] 91 Respiratory Rate 16 Respiratory Effort Respiratory Pattern Blood Pressure 131/77 H 131/77 H Blood Pressure [Lying] 134/73 H Blood Pressure [Sitting (for 1 minute prior to obtaining)] 138/85 H Blood Pressure [Standing (for 1 minute prior to obtaining)] 128/81 H Blood Pressure Mean 95 95 Blood Pressure Mean [Lying] 93 Blood Pressure Mean [Sitting (for 1 minute prior to obtaining)] 102 Blood Pressure Mean [Standing (for 1 minute prior to obtaining)] 96 Pulse Ox 96 Oxygen Delivery Method Room Air 03/11/22 19:00 Temperature 97.9 F Temperature Source Temporal Pulse Rate 89 Pulse Rate [Lying] Pulse Rate [Sitting (for 1 minute prior to obtaining)] Pulse Rate [Standing (for 1 minute prior to obtaining)] Respiratory Rate 16 Respiratory Effort Respiratory Pattern Blood Pressure 128/81 H Blood Pressure [Lying] Blood Pressure [Sitting (for 1 minute prior to obtaining)] Blood Pressure [Standing (for 1 minute prior to obtaining)] Blood Pressure Mean 96 Blood Pressure Mean [Lying] Blood Pressure Mean [Sitting (for 1 minute prior to obtaining)] Blood Pressure Mean [Standing (for 1 minute prior to obtaining)] Pulse Ox 100 Oxygen Delivery Method Room Air Positive well nourished General Appearance ED: NAD; Negative for pallor HEENT Reports moist mucous membranes Negative for trauma Eyes PERRL and EOMs intact bilaterally Chest Wall inspection of chest normal and palpation of chest normal Resp normal respiratory effort and clear to auscultation bilaterally Auscultation: Negative for rales, rhonchi or wheezes Cardio regular rate and regular rhythm GI normal to inspection, nondistended, normoactive bowel sounds Back/Spine no CVA tenderness Extremity normal to inspection Neuro oriented x3 and CN's II-XII intact bilaterally Sensorium / Orientation: alert Psych mental status grossly normal Skin no rashes or lesions noted General Skin Exam: Negative for jaundice or pallor MDM MDM MDM Narrative Medical decision making narrative: ?56-year-old female presenting with weakness. She states has been weak today. She thought she was near syncopal as well. She describes some tremoring which is resolved. She does complain of nausea area. She was given Zofran and a liter of fluids. Orthostatic vitals are normal. CBC shows a slight leukocytosis at 13. Creatinine unremarkable at 1.29. Electrolytes are also unremarkable. AST, ALT, alkaline phosphatase are slightly elevated however this is at baseline. Troponin is 8. EKG on my interpretation is a normal sinus rhythm with a ventricular rate of 85 bpm without sign of ischemic change or dysrhythmia. Chest x-ray on my interpretation shows no acute cardiopulmonary process and the radiologist agree. Urinalysis came back negative for infection. I do not have a source for her symptoms. I will provide her with Zofran for home. She is to alternate Tylenol and ibuprofen as needed. Impression: 1. Nausea 2. Dentalized weakness 3. Near syncope Lab Data Labs: Laboratory Results - last 24 hr 03/11/22 03/11/22 03/11/22 17:03 17:03 18:02 WBC 13.0 H RBC 4.77 Hgb 14.5 Hct 43.6 MCV 91.4 MCH 30.4 MCHC 33.3 RDW Std Deviation 45.2 H RDW Coeff of [place] 13.5 Plt Count 334 MPV 8.9 Immature Gran % (Auto) 0.500 Neut % (Auto) 62.4 Lymph % (Auto) 26.8 Mill[place] % (Auto) 9.2 Eos % (Auto) 0.5 Baso % (Auto) 0.6 Absolute Neuts (auto) 8.1 H Absolute Lymphs (auto) 3.48 Nucleated RBC % 0 Sodium 131 L Potassium 4.1 Chloride 99 Carbon Dioxide 25.0 Anion Gap 7 BUN 17 Creatinine 1.29 H Estim Creat Clear Calc 49.71 Est GFR (MDRD) Af Amer 55 L Est GFR (MDRD) Non-Af 46 L BUN/Creatinine Ratio 13.2 Glucose 143 H Calcium 8.9 Total Bilirubin 0.50 AST 54 H ALT 58 H Alkaline Phosphatase 122 H Troponin I High Sens 8 Total Protein 7.6 Albumin 3.5 Globulin 4.1 Albumin/Globulin Ratio 0.9 Urine Color Yellow Urine Clarity Clear Urine pH 6.0 Ur Specific [place] 1.015 Urine Protein 15 H Urine Glucose (UA) Normal Urine Ketones Negative Urine Occult Blood Negative Urine Nitrite Negative Urine Bilirubin Negative Urine Urobilinogen Normal Ur Leukocyte Esterase 25 H Urine RBC 0 SEEN Urine WBC 0-5 SEEN Ur Squamous Epith Cells 0-5 SEEN Urine Bacteria 1+ Urine Mucus 0 SEEN Radiography Diagnostic Testing: Clinical Impression(s) from Imaging Studies Chest X-Ray 03/11/22 17:04 IMPRESSION: No radiographic evidence of acute cardiopulmonary disease. Electronically Signed: Moustapha Moore MD at 17:18 EDT , Discharge Plan Triage Chief Complaint: General Illness ED Provider: Rai Draper Dx/Rx/DC Orders Instructions: ED Dysuria, Uncertain Cause (Adult), ED Weakness (Uncertain Cause) Prescriptions: New ondansetron 4 mg tablet,disintegrating 4 mg PO Q8H PRN (Reason: nausea and vomiting) Qty: 14 0RF No Action ibuprofen 800 mg tablet 800 mg PO BID PRN PRN (Reason: pain/fever) estradiol 1 mg tablet 1.5 mg PO DAILY Rx Instructions: off 1 week; repeat cycle duloxetine 60 MG capsule 120 mg PO DAILY Label Comments: pain albuterol sulfate 1 PUFF inhaler 2 puff INHALATION Q4H PRN PRN (Reason: sob) omeprazole 20 mg capsule,delayed release(DR/EC) 20 mg PO DAILY Label Comments: gastric reflux lisinopril-hydrochlorothiazide 20-25 mg tablet 1 tab PO QHS lorazepam 1 MG tablet 1 mg PO TID PRN PRN (Reason: Anxiety) oxycodone-acetaminophen 1 TABLET tablet 1 tab PO Q6H PRN PRN (Reason: Pain Score 1-10) diphenhydramine HCl 25 MG capsule 25 mg PO DAILY ondansetron 4 MG tablet 8 mg PO Q8H PRN PRN (Reason: Nausea) Qty: 20 0RF glimepiride 4 mg tablet 4 mg PO DAILY Qty: 30 0RF magnesium oxide 400 mg (241.3 mg magnesium) tablet 400 mg PO DAILY 30 Days Qty: 30 2RF ezetimibe 10 mg tablet 10 mg PO DAILY Qty: 90 3RF Primary Care Provider: Karl Pichardo Referrals: Karl Pichardo MD [Primary Care Provider] - Disposition Disposition: Home, Self Care
[2022-03-11 17:24] LABS: Absolute Lymphocyte Count 3.48 X10^3/uL (0.83-4.51); Absolute Neutrophil Count 8.1 X10^3/uL (2.0-7.7); Basophil# 0.08 X10^3/uL; Basophil% 0.6 % (0-1); Eosinophil# 0.07 X10^3/uL; Eosinophils% 0.5 % (0-5); Hematocrit 43.6 % (37-47); Hemoglobin 14.5 g/dL (12.0-15.0); Lymphocyte # 3.48 X10^3/ul (0.83-4.51); Lymphocyte % 26.8 % (19-41); Mean Corp Hgb Conc 33.3 g/dL (32-36); Mean Corpuscular Hgb 30.4 pg (27.0-32.0); Mean Corpuscular Volume 91.4 fL (81-99); Mean Platelet Vol. 8.9 fl (6.2-12.0); Monocyte% 9.2 % (0-10); NRBC Flagged by Analyzer 0 % (0-5); Neutrophil % 62.4 % (47-70); Platelet Count 334 K/mm3 (150-450); RBC Distribution Width CV 13.5 % (11.6-14.6); RBC Distribution Width SD 45.2 fl (35.1-43.9); Red Blood Count 4.77 M/mm3 (4.2-5.4)
[2022-03-11 17:44] LABS: ALB/GLOB Ratio 0.9 RATIO (0.9-2.4); AST(SGOT) 54 U/L (15-37); Alanine Aminotransfer ALT/SGPT 58 U/L (13-56); Albumin, Serum 3.5 g/dL (3.2-5.0); Alkaline Phosphatase 122 U/L (45-117); Anion Gap 7 (5-15); BUN 17 mg/dL (7-18); BUN/Creat Ratio 13.2 RATIO (10-20); Calcium,Total 8.9 mg/dL (8.5-10.1); Chloride 99 mmol/L (98-107); Creatinine, Serum 1.29 mg/dL (0.55-1.02); EST Glomerular Filtration Rate 46 mL/min (>60); Est Glom Filt Rate - Afr Amer 55 mL/min (>60); Estimated Creatinine Clearance 49.71 ml/min; Globulin 4.1 g/dL (2.2-4.2); Glucose 143 mg/dL (74-106); Potassium 4.1 mmol/L (3.5-5.1); Protein, Total 7.6 g/dL (6.4-8.2); Sodium Level 131 mmol/L (136-145); Troponin-I HS 8 pg/mL (3.0-54.0)
[2022-03-11 18:16] LABS: Mucous, Urine 0 SEEN /hpf (<or=2+); Red Blood Cells-Urine 0 SEEN /hpf (0-5)
[2022-03-11 18:24] LABS: Color, Urine Yellow (Yellow); Glucose, Dipstick Normal (Normal); Ketone-Dipstick Negative (Negative); Leukocyte Esterase-Dipstick 25 /ul (Negative); Nitrite-Dipstick Negative (Negative); Occult Blood-Urine Negative /ul (Negative); Protein-Dipstick 15 mg/dl (Negative); Specific Gravity, Urine 1.015 (1.002-1.030); Urine Bilirubin Dipstick Negative (Negative); Urine Clarity Clear (Clear); Urine Urobilinogen Normal (Normal)
[2022-03-11 18:39] LABS: Bacteria 1+ /hpf (None Seen); White Blood Cells 0-5 SEEN /hpf (0-5)
[2022-03-11 18:40] LABS: Squamous Epithelial Cells - UA 0-5 SEEN /hpf (5-10)
== END 2022-03-11 19:56 | disposition home or self-care (01) ==
PROVIDERS: Emergency Provider Student in an Organized Health Care Education/Training Program; PCP Family Medicine; Visit Provider Student in an Organized Health Care Education/Training Program
DX: R11.0 Nausea (principal); R53.1 Weakness; R55 Syncope and collapse
CPT/HCPCS: 71045; 80053; 81001; 84484; 85025; 93005; 96361; 96374; 99285; A4216; J2405

== ENCOUNTER → 2022-03-13 | Outpatient (CLI) | payer MEDICAID, SELFPAY | END | disposition home or self-care (01) | LOC: LABSPEC 15:07 | PROVIDERS: PCP Family Medicine; Visit Provider Physician Assistant Surgical | DX: R10.9 Unspecified abdominal pain (principal) | CPT/HCPCS: 87077; 87086; 87088; 87186 ==

== ENCOUNTER 2022-04-04 14:12 | Emergency (ER) | payer MEDICAID, SELFPAY ==
[2022-04-04 14:13] VITALS: BP 152/89; PULSE 108; RESP 18; TEMP 35.6; O2SAT 98; BMI 28.1
--- NOTE | 2022-04-04 14:27 | CT_ITS ---
STUDY: CT BRAIN WITHOUT CONTRAST REASON FOR EXAM: Female, 56 years old. Dizziness. Confusion. RADIATION DOSAGE (If Supplied By Facility): CTDIvol = ( 47.06 ) mGy, DLP = ( 925.62 ) mGycm TECHNIQUE: Transaxial CT imaging of the brain was performed without administration of intravenous contrast material. Individualized dose optimization techniques were used for this CT. COMPARISON: Comparison is made with prior examination dated 11/25/2011. FINDINGS: Normal soft tissue structures. Normal calvarium. Normal size ventricles and extra-axial spaces for the patient''s age. Normal white matter tracts of the cerebral hemispheres. Normal basal ganglia and thalami. Normal brainstem. Normal cerebellum. There is no intracranial hemorrhage. There are no findings of an acute ischemic infarction. Normal visualized paranasal sinuses. CT/Brain/Head without Contrast IMPRESSION: Normal unenhanced CT scan of the brain. Electronically Signed: Tim Cadet MD at 15:05 EDT ,
--- NOTE | 2022-04-04 14:27 | EKG12_ITS ---
Test Reason : confusion Blood Pressure : / mmHG Vent. Rate : 092 BPM Atrial Rate : 092 BPM P-R Int : 130 ms QRS Dur : 082 ms QT Int : 378 ms P-R-T Axes : 024 024 028 degrees QTc Int : 467 ms Normal sinus rhythm Normal ECG Confirmed by FAVIO MURILLO, GIANA ([id number]), editor house organ TRISTON ENCARNACION ([id number]) on 04/05/2022 2:13:04 PM Referred By: Martin Confirmed By:BOBBI STAHL MD
--- NOTE | 2022-04-04 14:28 | EDS_ITS ---
HPI History of Present Illness Chief Complaint: Confusion Informant: patient Narrative Narrative: Presents for evaluation by private vehicle dizziness with vomiting starting this morning. She was at work when symptoms occurred with spinning sensations. Recovering from upper respiratory symptoms 2 weeks ago treated at home. A week ago treatment started for UTI took 3 days of Macrobid and 1 day of Augmentin had reactions to both. Currently only back discomfort. No fevers no dysuria. No hematemesis. No diarrhea. Reports her glucose was in the 300s. She did not take her diabetic medications this morning for which she is on glimepiride. She states she does not take any other diabetic medications. Currently nauseated. Multiple allergies. No ear pain or ringing. Reports drove home when she got into her apartment complex she does not recall how she got in front of her driveway. Patient has been using marijuana to help with her RSD pain. However states her last use was 4 days ago. She drinks alcohol at night only. Prior similar symptoms: No PFSH PFS Medical History (Updated 04/04/22 @ 16:[address] Mir Nunez, ) Asthma Asthma Bronchitis Chest pain Contusion of right ankle Contusion of right foot Depressed Diabetes mellitus type II, controlled Dyspnea on exertion Episode of syncope Essential hypertension GERD (gastroesophageal reflux disease) GI bleed Hemorrhoids Hyperlipidemia Nausea & vomiting Near syncope Orthostatic hypotension Pneumonia Positive PPD, treated RSD (reflex sympathetic dystrophy) Shoulder pain Statin intolerance Strain of unspecified muscle, fascia and tendon at shoulder and upper arm level, right arm, initial encounter TIA (transient ischemic attack) Urinary tract infection with hematuria Home Medications duloxetine 60 mg capsule,delayed release 120 mg PO DAILY ANXIETY 11/30/13 [History Last Taken 08/19/19] albuterol sulfate 90 mcg/actuation aerosol inhaler 2 puff inhalation Q4H PRN PRN sob 03/04/14 [History Last Taken 08/15/19] lisinopril 20 mg-hydrochlorothiazide 25 mg tablet 1 tab PO QHS BP 05/03/19 [History Last Taken 08/19/19] lorazepam 1 mg tablet 1 mg PO TID PRN PRN Anxiety 05/09/19 [History Last Taken 08/17/19] omeprazole 20 mg capsule,delayed release 20 mg PO DAILY GERD 01/04/20 [History Last Taken Unknown] oxycodone-acetaminophen 5 mg-325 mg tablet 1 tab PO Q6H PRN PRN Pain Score 1-10 07/29/20 [History Last Taken Unknown] ondansetron 4 mg disintegrating tablet 8 mg PO Q8H PRN PRN Nausea #20 tabs 10/05/20 [Rx Last Taken Unknown] ezetimibe 10 mg tablet 10 mg PO DAILY CHOLESTEROL #90 tabs 04/19/21 [Rx Last Taken Unknown] glimepiride 4 mg tablet 4 mg PO DAILY #30 tabs 08/23/21 [Rx Last Taken Unknown] diphenhydramine HCl 25 mg capsule 25 mg PO DAILY PRN allergy symptoms 03/28/22 [History Last Taken Unknown] cholecalciferol (vitamin D3) 50 mcg (2,000 unit) capsule (Vitamin D3) 50 mcg PO DAILY 04/04/22 [History Last Taken Unknown] metoclopramide HCl 10 mg tablet 10 mg PO 4X/DAY PRN dizziness or vertigo #10 tabs 04/04/22 [Rx Last Taken Unknown] ondansetron 4 mg disintegrating tablet 4 mg PO Q6H PRN nausea and vomiting #10 tabs 04/04/22 [Rx Last Taken Unknown] zinc 1 tab PO DAILY 04/04/22 [History Last Taken Unknown] Allergy/AdvReac Type Severity Reaction Status Date / Time adalimumab [From Humira] Allergy Unknown Verified 04/04/22 14:13 amoxicillin trihydrate Allergy Unknown Verified 04/04/22 14:13 [From Augmentin] codeine Allergy Itching Verified 04/04/22 14:13 etanercept [From Enbrel] Allergy Unknown Verified 04/04/22 14:13 leflunomide [From Arava] Allergy Other Verified 04/04/22 14:13 metoprolol tartrate Allergy Unknown Verified 04/04/22 14:13 [From Lopressor] morphine sulfate Allergy Unknown Verified 04/04/22 14:13 [From Embeda] naltrexone HCl [From Embeda] Allergy Unknown Verified 04/04/22 14:13 oxymorphone [Oxymorphone] Allergy Unknown Verified 04/04/22 14:13 pioglitazone HCl [From Actos] Allergy Other Verified 04/04/22 14:13 pneumococcal 23-valent Allergy Unknown Verified 04/04/22 14:13 polysacchari [From Pneumovax 23] potassium clavulanate Allergy Unknown Verified 04/04/22 14:13 [From Augmentin] [id number]-XVY-ApF Reductase Allergy Unknown Verified 04/04/22 14:13 Inhibitor [Zciaill-Qny-Gfz Reductase Inhibitor] Sulfa (Sulfonamide Allergy Anaphylaxis Verified 04/04/22 14:13 Antibiotics) sulfamethoxazole Allergy Anaphylaxis Verified 04/04/22 14:13 [From Bactrim] telithromycin [From Ketek] Allergy Unknown Verified 04/04/22 14:13 tramadol HCl [From Ultram] Allergy Unknown Verified 04/04/22 14:13 trimethoprim [From Bactrim] Allergy Anaphylaxis Verified 04/04/22 14:13 Family History Father Diabetes Hypertension Mother Diabetes Hypertension Other Cancer Surgical History Hx of shoulder surgery Social History household members: none Smoking Status: Never smoker alcohol intake: current alcohol intake frequency: 0-2 drinks per day Alcohol type: hard liquor ROS ROS ED Constitutional Constitutional ED: Denies chills, fever(s) or sweats Eyes Eyes: Denies change in vision ENT ENT ED: Denies dysphagia or sore throat Cardiovascular Cardiovascular: Denies chest pain, leg edema, palpitations or racing heartbeat Respiratory/Chest Respiratory/Chest: Denies cough, dyspnea or dyspnea on exertion Gastrointestinal Gastrointestinal: Reports nausea and vomiting; Denies abdominal pain or diarrhea Genitourinary Genitourinary ED: Denies dysuria, hematuria or urinary frequency Musculoskeletal Musculoskeletal: Denies back pain, extremity pain or neck pain Integumentary Denies rash or wounds Neurologic Neurologic: Reports other Details: Dizziness ; Denies headache(s), paresthesias or weakness EXAM Physical Exam Const Vital Signs: 04/04/22 14:13 04/04/22 16:31 Temperature 96.1 F L Temperature Source Temporal Pulse Rate 108 H 96 Respiratory Rate 18 16 Blood Pressure 152/89 H 119/76 Blood Pressure Mean 110 90 Pulse Ox 98 97 Oxygen Delivery Method Room Air Room Air Positive well nourished and well developed General Appearance ED: well developed and NAD HEENT Reports moist mucous membranes normocephalic and atraumatic Eyes PERRL, EOMs intact bilaterally and conjunctivae normal Eyes Narrative: No nystagmus. General Eye ED: Yes normal appearance of both eyes Neck no lymphadenopathy and supple General: Negative for tenderness Chest Wall Chest: Negative for tenderness Resp normal respiratory effort and normal air movement Effort and Inspection: symmetric chest movement; Negative for respiratory distress Cardio regular rate, regular rhythm and no murmurs Peripheral Pulses: pulses 2+ throughout GI normal to inspection, nondistended, normoactive bowel sounds and non-tender GI Narrative: Negative Lynn's or McBurney's tenderness. Palpation: Negative for guarding or rebound tenderness present Back/Spine no CVA tenderness and no thoracic nor lumbar tenderness Extremity normal to inspection General Extremety ED: Negative for edema or tenderness General Extremity: Negative for edema Neuro oriented x3, CN's II-XII intact bilaterally and no sensory deficits noted Neuro Narrative: No focal deficits. Sensorium / Orientation: awake and alert Skin no rashes or lesions noted and no wounds MDM MDM MDM Narrative Medical decision making narrative: Patient presenting with vertigo symptoms. No focal deficits. NIH 0. CT head obtained negative. She is given Reglan. Urine negative labs are stable, 344, gap is normal at 12. Improved symptoms on reevaluation. Patient did not take her diabetic medications today. Discussed taking her prescribed dosing twice a day. Prescription for Reglan and Zofran written for symptom control. Tox screen did note THC for which she reported taking last time 4 days ago. Discharged with outpatient follow-up. All questions were answered. Lab Data Attestation: I reviewed the patient's lab results. Labs: Laboratory Results - last 24 hr 04/04/22 04/04/22 04/04/22 14:40 14:40 14:57 WBC 12.8 H RBC 4.73 Hgb 14.5 Hct 43.0 MCV 90.9 MCH 30.7 MCHC 33.7 RDW Std Deviation 40.9 RDW Coeff of [place] 12.4 Plt Count 526 H MPV 9.4 Immature Gran % (Auto) 0.300 Neut % (Auto) 70.3 H Lymph % (Auto) 21.3 [place] % (Auto) 7.5 Eos % (Auto) 0.2 Baso % (Auto) 0.4 Absolute Neuts (auto) 9.0 H Absolute Lymphs (auto) 2.73 Nucleated RBC % 0 Sodium 134 L Potassium 4.1 Chloride 101 Carbon Dioxide 21.0 Anion Gap 12 BUN 14 Creatinine 1.29 H Estim Creat Clear Calc 49.71 Est GFR (MDRD) Af Amer 55 L Est GFR (MDRD) Non-Af 45 L BUN/Creatinine Ratio 10.9 Glucose 344 H Calcium 10.2 H Urine Color Yellow Urine Clarity Clear Urine pH 6.0 Ur Specific [place] 1.010 Urine Protein 30 H Urine Glucose (UA) 1000 H Urine Ketones Negative Urine Occult Blood 10 H Urine Nitrite Negative Urine Bilirubin Negative Urine Urobilinogen Normal Ur Leukocyte Esterase Negative Urine RBC 0-5 SEEN Urine WBC 5-10 SEEN Ur Squamous Epith Cells 5-10 SEEN Urine Bacteria 1+ Hyaline Casts 25-50 SEEN Urine Mucus 0 SEEN Urine Opiates Screen Urine Methadone Screen Ur Barbiturates Screen Ur Phencyclidine Scrn Ur Amphetamines Screen MDMA (Ecstasy) Screen U Benzodiazepines Scrn Urine Cocaine Screen U Cannabinoids Screen Ur Drug Screen Comment POC Glucose 04/04/22 04/04/22 14:57 15:45 WBC RBC Hgb Hct MCV MCH MCHC RDW Std Deviation RDW Coeff of [place] Plt Count MPV Immature Gran % (Auto) Neut % (Auto) Lymph % (Auto) [place] % (Auto) Eos % (Auto) Baso % (Auto) Absolute Neuts (auto) Absolute Lymphs (auto) Nucleated RBC % Sodium Potassium Chloride Carbon Dioxide Anion Gap BUN Creatinine Estim Creat Clear Calc Est GFR (MDRD) Af Amer Est GFR (MDRD) Non-Af BUN/Creatinine Ratio Glucose Calcium Urine Color Urine Clarity Urine pH Ur Specific [place] Urine Protein Urine Glucose (UA) Urine Ketones Urine Occult Blood Urine Nitrite Urine Bilirubin Urine Urobilinogen Ur Leukocyte Esterase Urine RBC Urine WBC Ur Squamous Epith Cells Urine Bacteria Hyaline Casts Urine Mucus Urine Opiates Screen NEGATIVE Urine Methadone Screen NEGATIVE Ur Barbiturates Screen NEGATIVE Ur Phencyclidine Scrn NEGATIVE Ur Amphetamines Screen NEGATIVE MDMA (Ecstasy) Screen NEGATIVE U Benzodiazepines Scrn NEGATIVE Urine Cocaine Screen NEGATIVE U Cannabinoids Screen POSITIVE H Ur Drug Screen Comment POC Glucose 366 H Radiography Diagnostic Testing: Clinical Impression(s) from Imaging Studies Brain CT 04/04/22 14:27 IMPRESSION: Normal unenhanced CT scan of the brain. Electronically Signed: Tim Cadet MD at 15:05 EDT , EKG Initial EKG: Attestation: I personally reviewed and interpreted this EKG as follows: Comments: Sinus rate of 92, no ST changes PAC T wave version leads III. Nonspecific. Discharge Plan Triage Chief Complaint: Confusion ED Provider: Mir Nunez Dx/Rx/DC Orders Clinical Impression: Vertigo, Nausea & vomiting, Hyperglycemia due to diabetes mellitus Instructions: ED Vertigo, Unspecified, ED Vomiting (Adult) Prescriptions: New metoclopramide HCl [metoclopramide HCl] 10 mg tablet 10 mg PO 4X/DAY PRN (Reason: dizziness or vertigo) Qty: 10 0RF ondansetron 4 mg tablet,disintegrating 4 mg PO Q6H PRN (Reason: nausea and vomiting) Qty: 10 0RF No Action duloxetine 60 MG capsule 120 mg PO DAILY Label Comments: pain albuterol sulfate 1 PUFF inhaler 2 puff INHALATION Q4H PRN PRN (Reason: sob) omeprazole 20 mg capsule,delayed release(DR/EC) 20 mg PO DAILY Label Comments: gastric reflux lisinopril-hydrochlorothiazide 20-25 mg tablet 1 tab PO QHS lorazepam 1 MG tablet 1 mg PO TID PRN PRN (Reason: Anxiety) oxycodone-acetaminophen 1 TABLET tablet 1 tab PO Q6H PRN PRN (Reason: Pain Score 1-10) diphenhydramine HCl 25 mg capsule 25 mg PO DAILY PRN (Reason: allergy symptoms) ondansetron 4 MG tablet 8 mg PO Q8H PRN PRN (Reason: Nausea) Qty: 20 0RF glimepiride 4 mg tablet 4 mg PO DAILY Qty: 30 0RF zinc Tablet,Chewable 1 tab PO DAILY cholecalciferol (vitamin D3) [Vitamin D3] 50 mcg (2,000 unit) Capsule 50 mcg PO DAILY ezetimibe 10 mg tablet 10 mg PO DAILY Qty: 90 3RF Primary Care Provider: Lillie Fry Referrals: Karl Pichardo MD [Non-Staff] - 3-5 Days if not improving Activity Restrictions/Additional Instructions: Take your diabetic medications at home. Continue oral fluids. Take medications as prescribed. Follow-up with your doctor. Return if any worsening symptoms. Disposition Disposition: Home, Self Care Discharge Date/Time: 04/04/22 16:49
[2022-04-04] MEDS: 0.9% Normal Saline 1,000 ML 1000 ML IV (14:32)
[2022-04-04] MEDS: Metoclopramide 10 MG/2 ML Vial 5 MG IV (14:36)
[2022-04-04 14:47] LABS: Absolute Lymphocyte Count 2.73 X10^3/uL (0.83-4.51); Basophil# 0.05 X10^3/uL; Basophil% 0.4 % (0-1); Eosinophil# 0.02 X10^3/uL; Eosinophils% 0.2 % (0-5); Hemoglobin 14.5 g/dL (12.0-15.0); Lymphocyte # 2.73 X10^3/ul (0.83-4.51); Lymphocyte % 21.3 % (19-41); Mean Corp Hgb Conc 33.7 g/dL (32-36); Mean Corpuscular Hgb 30.7 pg (27.0-32.0); Mean Corpuscular Volume 90.9 fL (81-99); Mean Platelet Vol. 9.4 fl (6.2-12.0); Monocyte# 0.96 X10^3/uL; Monocyte% 7.5 % (0-10); NRBC Flagged by Analyzer 0 % (0-5); Neutrophil # 8.99 X10^3/uL (2.7-7.7); Neutrophil % 70.3 % (47-70); Platelet Count 526 K/mm3 (150-450); RBC Distribution Width CV 12.4 % (11.6-14.6); RBC Distribution Width SD 40.9 fl (35.1-43.9); Red Blood Count 4.73 M/mm3 (4.2-5.4); White Blood Count 12.8 K/mm3 (4.4-11.0)
[2022-04-04 15:23] LABS: Anion Gap 12 (5-15); BUN 14 mg/dL (7-18); BUN/Creat Ratio 10.9 RATIO (10-20); Calcium,Total 10.2 mg/dL (8.5-10.1); Chloride 101 mmol/L (98-107); Creatinine, Serum 1.29 mg/dL (0.55-1.02); EST Glomerular Filtration Rate 45 mL/min (>60); Est Glom Filt Rate - Afr Amer 55 mL/min (>60); Estimated Creatinine Clearance 49.71 ml/min; Glucose 344 mg/dL (74-106); Potassium 4.1 mmol/L (3.5-5.1); Sodium Level 134 mmol/L (136-145)
[2022-04-04 15:52] LABS: Mucous, Urine 0 SEEN /hpf (<or=2+)
[2022-04-04 15:56] LABS: Color, Urine Yellow (Yellow); Glucose, Dipstick 1000 mg/dl (Normal); Ketone-Dipstick Negative (Negative); Leukocyte Esterase-Dipstick Negative /ul (Negative); Nitrite-Dipstick Negative (Negative); Occult Blood-Urine 10 /ul (Negative); Protein-Dipstick 30 mg/dl (Negative); Urine Bilirubin Dipstick Negative (Negative); Urine Clarity Clear (Clear); Urine Urobilinogen Normal (Normal)
[2022-04-04 16:06] LABS: White Blood Cells 5-10 SEEN /hpf (0-5)
[2022-04-04 16:07] LABS: Bacteria 1+ /hpf (None Seen); Red Blood Cells-Urine 0-5 SEEN /hpf (0-5); Squamous Epithelial Cells - UA 5-10 SEEN /hpf (5-10)
[2022-04-04 16:08] LABS: Hyaline Cast 25-50 SEEN /lpf (0-5)
[2022-04-04 16:10] LABS: Bedside Glucose 366 mg/dL (74-106)
[2022-04-04 16:10] LABS: Amphetamine Urine VISTA NEGATIVE (<1000 ng/mL); Barbiturate Urine VISTA NEGATIVE (< 200 ng/mL); Benzodiazepine Urine VISTA NEGATIVE (< 200 ng/mL); Cocaine Urine VISTA NEGATIVE (< 300 ng/mL); Ecstacy Urine VISTA NEGATIVE (< 500 ng/mL); Methadone Urine VISTA NEGATIVE (< 300 ng/mL); PCP Urine VISTA NEGATIVE (< 25 ng/mL); THC Urine VISTA POSITIVE (< 50 ng/mL); Vista UDS pH Range 5
[2022-04-04 16:31] VITALS: BP 119/76; PULSE 96; RESP 16; O2SAT 97
== END 2022-04-04 16:49 | disposition home or self-care (01) ==
PROVIDERS: Emergency Provider Emergency Medicine; Visit Provider Emergency Medicine
DX: R42 Dizziness and giddiness (principal); E11.65 Type 2 diabetes mellitus with hyperglycemia; R11.2 Nausea with vomiting, unspecified; I10 Essential (primary) hypertension; J45.909 Unspecified asthma, uncomplicated; K21.9 Gastro-esophageal reflux disease without esophagitis; F12.90 Cannabis use, unspecified, uncomplicated; Z86.73 Personal history of transient ischemic attack (TIA), and cerebral infarction without residual deficits; Z79.899 Other long term (current) drug therapy; Z79.84 Long term (current) use of oral hypoglycemic drugs
CPT/HCPCS: 70450; 80048; 80307; 81001; 82962; 85025; 87077; 87086; 87088; 87186; 93005; 96361; 96374; 99284; J7030; A4216

== ENCOUNTER → 2022-06-04 | Outpatient (CLI) | payer MEDICAID, SELFPAY ==
[2022-06-04 10:31] LABS: Absolute Lymphocyte Count 2.43 X10^3/uL (0.83-4.51); Absolute Neutrophil Count 1.8 X10^3/uL (2.0-7.7); Basophil# 0.05 X10^3/uL; Eosinophil# 0.15 X10^3/uL; Hematocrit 38.9 % (37-47); Hemoglobin 13.2 g/dL (12.0-15.0); Lymphocyte # 2.43 X10^3/ul (0.83-4.51); Lymphocyte % 48.6 % (19-41); Mean Corp Hgb Conc 33.9 g/dL (32-36); Mean Corpuscular Hgb 31.2 pg (27.0-32.0); Mean Platelet Vol. 8.6 fl (6.2-12.0); Monocyte# 0.53 X10^3/uL; Monocyte% 10.6 % (0-10); NRBC Flagged by Analyzer 0 % (0-5); Neutrophil # 1.83 X10^3/uL (2.7-7.7); Neutrophil % 36.6 % (47-70); Platelet Count 324 K/mm3 (150-450); RBC Distribution Width CV 12.9 % (11.6-14.6); RBC Distribution Width SD 43.3 fl (35.1-43.9); Red Blood Count 4.23 M/mm3 (4.2-5.4)
[2022-06-04 11:02] LABS: AST(SGOT) 70 U/L (15-37); Alanine Aminotransfer ALT/SGPT 56 U/L (13-56); Albumin, Serum 3.3 g/dL (3.2-5.0); Alkaline Phosphatase 107 U/L (45-117); Anion Gap 8 (5-15); BUN 11 mg/dL (7-18); BUN/Creat Ratio 19.7 RATIO (10-20); Calcium,Total 8.7 mg/dL (8.5-10.1); Chloride 106 mmol/L (98-107); Cholesterol 209 mg/dL (200); Creatinine, Serum 0.56 mg/dL (0.55-1.02); EST Glomerular Filtration Rate 120 mL/min (>60); Est Glom Filt Rate - Afr Amer 145 mL/min (>60); Free T3 2.8 pg/mL (2.18-3.98); Globulin 3.4 g/dL (2.2-4.2); Glucose 172 mg/dL (74-106); Hemoglobin A1c 8.4 % (3.8-5.6); High Density Lipoprotein 66 mg/dL; Protein, Total 6.7 g/dL (6.4-8.2); Sodium Level 141 mmol/L (136-145); Thyroid Stim Hormone (TSH) 1.78 uIU/mL (0.358-3.74); Triglycerides 276 mg/dL; Very Low Density Lipoprotein 55 mg/dL (5-40)
[2022-06-04 11:03] LABS: Vitamin D,25 Hydroxy 42.5 ng/mL
== END | disposition home or self-care (01) ==
LOC: LAB 09:57
PROVIDERS: Internal Medicine
DX: F41.9 Anxiety disorder, unspecified (principal); E11.9 Type 2 diabetes mellitus without complications; I10 Essential (primary) hypertension; E78.5 Hyperlipidemia, unspecified; G90.50 Complex regional pain syndrome I, unspecified; S46.911A Strain of unspecified muscle, fascia and tendon at shoulder and upper arm level, right arm, initial encounter
CPT/HCPCS: 36415; 80053; 80061; 82306; 83036; 84439; 84443; 84481; 85025

== ENCOUNTER → 2022-06-12 | Outpatient (CLI) | payer MEDICAID, SELFPAY ==
--- NOTE | 2022-06-12 16:28 | RAD_ITS ---
EXAM: XR RIGHT HIP WITH PELVIS WHEN PERFORMED, 2 OR 3 VIEWS CLINICAL INDICATION: pain TECHNIQUE: Two or three views of the right hip with pelvis when performed. This report was created using [employer] report generation technology. COMPARISON: None. FINDINGS: BONES/JOINTS: Unremarkable. No displaced fracture. No destructive or sclerotic lesions. Note that overlapping bowel shadows may however obscure fine detail. Sacroiliac joint is unremarkable. No widening of the pubic symphysis. The articular structures are unremarkable. SOFT TISSUES: Bilateral tubal ligation clips are present. No soft tissue swelling or gas. RAD/HIP, UNI W/ Pelvis 2-3 Views IMPRESSION: No acute findings in the pelvis or right hip. Electronically Signed: Moustapha Moore MD at 17:21 EST ,
== END | disposition home or self-care (01) ==
LOC: MTRAD 16:11
PROVIDERS: Referring Provider Physician Assistant; Visit Provider Physician Assistant
DX: M25.551 Pain in right hip (principal)
CPT/HCPCS: 73502

== ENCOUNTER 2022-07-23 08:24 | Day surgery (SDC) | payer MEDICAID, SELFPAY ==
[2022-07-23] VITALS (7 sets, daily range): BP systolic 123–146; BP diastolic 82–90; PULSE 79–95; RESP 16–17; TEMP 36.3–36.7; O2SAT 95–98; BMI 27.8
[2022-07-23] MEDS: Lactated Ringers 1,000 ML 15 ML IV (09:08)
--- NOTE | 2022-07-23 09:39 | H&P.OPEN ---
HPI - General HPI Narrative AALIYAH LAY, is a 57 F who presents for colonoscopy. The patient had her last colonoscopy 5 years ago and she did have a polyp removed. Patient denies any abdominal pain but she is feeling a lot of bloating. She is on a PPI. She denies nausea or vomiting. [facility] Medical History (Updated 07/23/22 @ 09:[address] Miguel Pena MD) Acute otitis externa of left ear Acute sinusitis, unspecified Arthritis Asthma Asthma Bronchitis Cardiology follow-up encounter Chest pain Contusion of right ankle Contusion of right foot Depressed Diabetes Diabetes mellitus type II, controlled Difficulty swallowing Dyspnea on exertion Easy bruising Episode of syncope Essential hypertension SACHA (generalized anxiety disorder) Gastric reflux GERD (gastroesophageal reflux disease) GI bleed Hemorrhoids High cholesterol History of colon polyps History of echocardiogram History of stress test Hyperlipidemia Injury of head and neck Marijuana use Nausea & vomiting Near syncope Non-smoker Orthostatic hypotension Pneumonia Positive PPD, treated Restless legs RSD (reflex sympathetic dystrophy) Shoulder pain Statin intolerance Strain of right hip Strain of unspecified muscle, fascia and tendon at shoulder and upper arm level, right arm, initial encounter TIA (transient ischemic attack) Urinary tract infection with hematuria Wears glasses Home Medications duloxetine 60 mg capsule,delayed release 120 mg PO DAILY ANXIETY 11/30/13 [History Last Taken 08/19/19] albuterol sulfate 90 mcg/actuation aerosol inhaler 2 puff inhalation Q4H PRN PRN sob 03/04/14 [History Last Taken 08/15/19] omeprazole 20 mg capsule,delayed release 20 mg PO DAILY GERD 01/04/20 [History Last Taken Unknown] ondansetron 4 mg disintegrating tablet 8 mg PO Q8H PRN PRN Nausea #20 tabs 10/05/20 [Rx Last Taken Unknown] ezetimibe 10 mg tablet 10 mg PO DAILY CHOLESTEROL #90 tabs 04/19/21 [Rx Last Taken Unknown] glimepiride 4 mg tablet 4 mg PO DAILY #30 tabs 08/23/21 [Rx Last Taken Unknown] diphenhydramine HCl 25 mg capsule 25 mg PO DAILY PRN allergy symptoms 03/28/22 [History Last Taken Unknown] cholecalciferol (vitamin D3) 50 mcg (2,000 unit) capsule (Vitamin D3) 50 mcg PO DAILY 04/04/22 [History Last Taken Unknown] zinc 1 tab PO DAILY 04/04/22 [History Last Taken Unknown] lorazepam 1 mg tablet 0.5 mg PO TID PRN PRN Anxiety #30 tabs 05/27/22 [Rx Last Taken Unknown] triamcinolone acetonide 0.1 % topical cream 1 applic topical BID #30 grams 05/27/22 [Rx Last Taken Unknown] cyanocobalamin (vitamin B-12) 1,000 mcg/mL oral drops (Vitamin B-12) 1 ml PO DAILY 06/11/22 [History Last Taken Unknown] lisinopril 20 mg-hydrochlorothiazide 25 mg tablet 1 tab PO QHS BP #90 tabs 06/29/22 [Rx Last Taken Unknown] calcium carbonate 333 mg-magnesium oxide 133 mg-zinc gluc 5 mg tablet 3 tab PO DAILY 07/22/22 [History Last Taken Unknown] Allergy/AdvReac Type Severity Reaction Status Date / Time adalimumab [From Humira] Allergy Unknown Verified 07/23/22 09:01 amoxicillin trihydrate Allergy Unknown Verified 07/23/22 09:01 [From Augmentin] codeine Allergy Itching Verified 07/23/22 09:01 etanercept [From Enbrel] Allergy Unknown Verified 07/23/22 09:01 leflunomide [From Arava] Allergy Other Verified 07/23/22 09:01 metoprolol tartrate Allergy Unknown Verified 07/23/22 09:01 [From Lopressor] morphine sulfate Allergy Unknown Verified 07/23/22 09:01 [From Embeda] naltrexone HCl [From Embeda] Allergy Unknown Verified 07/23/22 09:01 oxymorphone [Oxymorphone] Allergy Unknown Verified 07/23/22 09:01 pioglitazone HCl [From Actos] Allergy Other Verified 07/23/22 09:01 pneumococcal 23-valent Allergy Unknown Verified 07/23/22 09:01 polysacchari [From Pneumovax 23] potassium clavulanate Allergy Unknown Verified 07/23/22 09:01 [From Augmentin] Wrxrapy-NXG-UaL Reductase Allergy Unknown Verified 07/23/22 09:01 Inhibitor [Vtnidfq-Maj-Vvb Reductase Inhibitor] Sulfa (Sulfonamide Allergy Anaphylaxis Verified 07/23/22 09:01 Antibiotics) sulfamethoxazole Allergy Anaphylaxis Verified 07/23/22 09:01 [From Bactrim] telithromycin [From Ketek] Allergy Unknown Verified 07/23/22 09:01 tramadol HCl [From Ultram] Allergy Unknown Verified 07/23/22 09:01 trimethoprim [From Bactrim] Allergy Anaphylaxis Verified 07/23/22 09:01 Family History Father Diabetes Hypertension Mother Diabetes Hypertension Colon polyp Other Cancer Surgical History (Updated 07/22/22 @ 12:11 by Anna Encarnacion) History of appendectomy History of arthroscopy of right knee History of colonoscopy History of hysterectomy Hx of shoulder surgery Social History (Updated 07/04/22 @ 15:58 by Shannan Campbell) household members: none Smoking Status: Never smoker alcohol intake: current alcohol intake frequency: 0-2 drinks per day Alcohol type: hard liquor substance use type: other details: Gummies Past Medical/Surgical History Planned Operation Planned Operative Procedure/s: COLONOSCOPY S.O.S: No Previous Hospitalizations/Surgeries HX Hospitalizations: No HX of Surgeries: RT KNEE, APPY, RT BREAST LUMP, TUBAL X-2, TUBAL REVERSAL hysterectomy, tubes 2015 shoulder surgery 07/2016, [place] REMOVAL HARDWARE R SHOULDER 10/2016 Any Problems With Anesthesia: No You/Your Family Experience Fever (Hyperthermia) With Anes: No Cholinesterase deficiency: No Cardiovascular Hx Chest Pain within Last 2 months: Yes Hx of Irregular Heartbeat and/or Afib: No Hx Heart Attack: No Hx Congestive Heart Failure: No Hx Rheumatic Fever: No Hx Hypertension: Yes Hx Internal Defibrillator: No Hx Pacemaker: No Hx Cardiac Catheterization: No Hx Cardiac Surgery/Stents/Etc.: No Hx Stress Test: Yes (unsure of date, ccf) Hx Pain in Legs when Walking/Leg Cramps: Yes (rsd) Respiratory Chronic Cough: No HX of Shortness of Breath: Yes (allergy related, ABLE TO WALK 2 FLIGHTS OF STAIRS WITHOUT SOB) Hoarseness: No Hx Chronic Obstructive Pulmonary Disease (COPD): No Hx Asthma: Yes Hx Emphysema: No Hx Sleep Apnea: No CPAP: No BIPAP: No Hx Respiratory Tract Infection/Cold (presently): No Do You Snore Loudly (louder than talking or can be heard): No Do You Often Feel Tired/ Fatigued/ Sleepy Dring Daytime?: No Has Anyone Observed You Stop Breathing During Sleep?: No Result (for STOP score): Negative Hx Smoking: No Smoking Status: Never smoker Gastrointestinal Hx Gastroesophageal Reflux: Yes Controlled With Meds: Yes (omeprazole) Hx Gastrointestinal Disorders: No Hx Gastrointestinal Bleed: No Hx Ulcer: No Hx Hiatal Hernia: No Difficulty Chewing/Swallowing: No Special diet followed at home: Yes (DIABETIC) Hx Unplanned Weight Loss of 20#: No HX Unplanned Weight Gain of 20#: No Neurological Hx Seizures: No HX Syncope/Blackout Spells/Unconsciousness: No Hx Transient Ischemic Attacks (TIA): Yes Hx Multiple Sclerosis: No (REFLEX SYMPATHETIC DYSTROPHY) Hx Parkinson's Disease: No Hx Head/Neck Injury: No Hx Headaches: Yes (MIGRAINES, PER HX) Hx Back Injury/Pain: No Recent Onset of Speech Difficulty: No Restless Legs: No Does patient have nerve stimulator: No Blood Disorder Hx Leukemia: No Bleeding Tendencies: Yes (BRUISE EASILY) Hx Deep Vein Thrombosis: No Hx High Cholesterol: Yes Blood Transmitted Disease: No Hx Hepatitis: No Hx Cirrhosis: No Hx Anemia: No Hx Blood Disorders: No Reproduction : No Is Patient Lactating: No Hx Hysterectomy: Yes Hx Tubal Ligation: Yes Are You Post Menopause: Yes Genitourinary Hx Renal Disease: No Hx Dialysis: No Musculoskeletal Hx Arthritis: Yes (KNEES AND WRISTS AND SHOULDER) Hx Rheumatoid Arthritis: No Hx Gout: No Recent Onset of an Orthopedic Problem: Yes (JUL 2016) Endocrine Hx Diabetes: Yes (NO MEDS) Insulin: No Thyroid Disease: No Hx Steroid Therapy: Yes (ORAL 08/2016) Psycho/Social Hx Substance Use: No Hx Alcohol Use: Yes (2 DRINKS/NIGHT) Hx Anxiety: Yes (PANIC ATTACTS WHEN IN HOSPITAL) Hx Depression: Yes (OCCASIONAL) Mental Illness: No Hx Dementia: No Miscellaneous Hx Cancer: No Recent Exposure to Contagious Disease: No Hx of C-Diff: No Any Loose Teeth: No Allergies adalimumab [From Humira] Allergy (Verified 07/23/22 09:01) Unknown amoxicillin trihydrate [From Augmentin] Allergy (Verified 07/23/22 09:01) Unknown codeine Allergy (Verified 07/23/22 09:01) Itching etanercept [From Enbrel] Allergy (Verified 07/23/22 09:01) Unknown leflunomide [From Arava] Allergy (Verified 07/23/22 09:01) Other metoprolol tartrate [From Lopressor] Allergy (Verified 07/23/22 09:01) Unknown morphine sulfate [From Embeda] Allergy (Verified 07/23/22 09:01) Unknown naltrexone HCl [From Embeda] Allergy (Verified 07/23/22 09:01) Unknown oxymorphone [Oxymorphone] Allergy (Verified 07/23/22 09:01) Unknown pioglitazone HCl [From Actos] Allergy (Verified 07/23/22 09:01) Other pneumococcal 23-valent polysacchari [From Pneumovax 23] Allergy (Verified 07/23/22 09:01) Unknown potassium clavulanate [From Augmentin] Allergy (Verified 07/23/22 09:01) Unknown Twethqk-YTJ-UiF Reductase Inhibitor [Ebpsolg-Wmq-Ztq Reductase Inhibitor] Allergy (Verified 07/23/22 09:01) Unknown Sulfa (Sulfonamide Antibiotics) Allergy (Verified 07/23/22 09:01) Anaphylaxis sulfamethoxazole [From Bactrim] Allergy (Verified 07/23/22 09:01) Anaphylaxis telithromycin [From Ketek] Allergy (Verified 07/23/22 09:01) Unknown tramadol HCl [From Ultram] Allergy (Verified 07/23/22 09:01) Unknown trimethoprim [From Bactrim] Allergy (Verified 07/23/22 09:01) Anaphylaxis Maternal: Family History Father Diabetes Hypertension Mother Diabetes Hypertension Colon polyp Other Cancer - (Patient notes a maternal family history of hypertension and diabetes as well as maternal grandmother with breast cancer.) Paternal: Family History Father Diabetes Hypertension Mother Diabetes Hypertension Colon polyp Other Cancer - (Patient states she does not know any of her paternal family history.) Discharge Is Pt Admitted From a Shelter, or a Assisted: No Who Could Help: NEIGHBOR After D/C, Where Do you Plan to Go: Return Home Vital Signs Vital Signs Vital Signs: 07/23/22 09:01 07/23/22 09:01 Temperature 98.1 F Temperature Source Temporal Pulse Rate 95 Respiratory Rate 17 Respiratory Pattern Normal Blood Pressure 146/82 H Blood Pressure Mean 103 Blood Pressure Source Monitor Blood Pressure Position Semi-Fowlers Blood Pressure Location Right Arm Pulse Ox 97 Oxygen Delivery Method Room Air Weight Weight: 182 lb 15.739 oz Body Mass Index (BMI) 27.8 Physical Exam Const alert and oriented x3 HEENT normocephalic Eyes PERRL Resp normal respiratory effort and normal air movement Cardio regular rate and regular rhythm GI soft to palpation, non-tender and non-distended Extremity normal to inspection Assessment & Plan Assessment/Plan (1) Abdominal distension: (2) History of colon polyps: PLAN: Plan Patient is here for surveillance colonoscopy due to history of colon polyps. The patient also was having a lot of abdominal bloating and distention. I recommended a CT scan and I will order that for her. I will perform a colonoscopy today and get the CT at her earliest convenience to check for any signs of obstruction or distention. Patient does have a history of gastroparesis so this may be worsening due to her diabetes. I explained endoscopy in detail to the patient. I explained the risks including but not limited to stroke or heart attack with anesthesia, perforation of the GI tract, bleeding, infection. I explained that any of these could necessitate further emergency surgery. The patient understands and all questions were answered sufficiently. The patient wishes to proceed with procedure. Miguel Pena MD Pager: [facility] [address] [place] [address], [address] [place] [address] Office: Surgery Risks - Colonoscopy Risks Include but are not Limited To: Risks include but are not limited to: Bleeding, perforation requiring further surgery, inability to complete colonoscopy requiring barium enema.
--- NOTE | 2022-07-23 10:01 | OP.CCLET_ITS ---
07/23/2022 Lillie Fry Md Re : Colonoscopy procedure for Chrissy De La Torre Dear Lisandra This procedure was performed on Saturday, July 23, 2022. My impressions and recommendations are as follows: Impressions : - The entire examined colon is normal on direct and retroflexion views. - No specimens collected. Recommendations : - Discharge patient to home. - Resume previous diet. - Continue present medications. - Repeat colonoscopy in 10 years for screening purposes. My findings are described in the full procedure note, which is enclosed. If I can be of further assistance, please feel free to contact me at Doctor phone number(s): , Work: . Sincerely, Miguel Pena MD 07/23/2022 10:00:48 AM This report has been signed electronically.
--- NOTE | 2022-07-23 10:01 | OP.COLON_ITS ---
Patient Name: Chrissy De La Torre Procedure Date: 07/23/2022 9:38 AM Date of : 1965 Age: 57 Procedure: Colonoscopy Indications: High risk colon cancer surveillance: Personal history of colonic polyps Providers: Miguel Pena MD Medicines: Monitored Anesthesia Care Patient Profile: This is a 57 year old female. Refer to note in patient chart for documentation of history and physical. Last Colonoscopy: 5 years ago. Complications: No immediate complications. Procedure: Pre-Anesthesia Assessment: - Prior to the procedure, a History and Physical was performed, and patient medications and allergies were reviewed. The patient's tolerance of previous anesthesia was also reviewed. The risks and benefits of the procedure and the sedation options and risks were discussed with the patient. All questions were answered, and informed consent was obtained. Prior Anticoagulants: The patient has taken no previous anticoagulant or antiplatelet agents. After reviewing the risks and benefits, the patient was deemed in satisfactory condition to undergo the procedure. After I obtained informed consent, the scope was passed under direct vision. Throughout the procedure, the patient's blood pressure, pulse, and oxygen saturations were monitored continuously. The pediatric colonoscope was introduced through the anus and advanced to the cecum, identified by appendiceal orifice and ileocecal valve. The colonoscopy was performed without difficulty. The patient tolerated the procedure well. The quality of the bowel preparation was good. Scope In: 9:47:47 AM Scope Withdrawal Time 0 hours 6 minutes 20 seconds Scope Out: 9:57:20 AM Total Procedure Duration Time 0 hours 9 minutes 33 seconds Findings: The entire examined colon appeared normal on direct and retroflexion views. Impression: - The entire examined colon is normal on direct and retroflexion views. - No specimens collected. Recommendation: - Discharge patient to home. - Resume previous diet. - Continue present medications. - Repeat colonoscopy in 10 years for screening purposes. Procedure Code(s): --- Professional --- 32855, Colonoscopy, flexible; diagnostic, including collection of specimen(s) by brushing or washing, when performed (separate procedure) Diagnosis Code(s): --- Professional --- Z86.010, Personal history of colonic polyps CPT copyright 2017 [employer]. All rights reserved. The codes documented in this report are preliminary and upon medical biller/coder review may be revised to meet current compliance requirements. Miguel Pena MD 07/23/2022 10:00:48 AM This report has been signed electronically. Number of Addenda: 0 Note Initiated On: 07/23/2022 9:38 AM
[2022-07-23 10:16] LABS: Bedside Glucose 190 mg/dL (74-106)
== END 2022-07-23 10:46 | disposition home or self-care (01) ==
LOC: EN 08:26 → AC 08:28
PROVIDERS: Visit Provider Surgery
PROC: 0DJD8ZZ Inspection of Lower Intestinal Tract, Via Natural or Artificial Opening Endoscopic (ICD-10-PCS; CPT 45378; principal; 2022-07-23 09:25)
DX: Z86.010 Personal history of colon polyps (principal); E11.9 Type 2 diabetes mellitus without complications; F41.1 Generalized anxiety disorder; I10 Essential (primary) hypertension; F32.A Depression, unspecified; J45.909 Unspecified asthma, uncomplicated; K21.9 Gastro-esophageal reflux disease without esophagitis; Z86.73 Personal history of transient ischemic attack (TIA), and cerebral infarction without residual deficits; Z79.899 Other long term (current) drug therapy; Z79.84 Long term (current) use of oral hypoglycemic drugs
CPT/HCPCS: 45378; 82962; J7120; J2405

== ENCOUNTER → 2022-08-02 | Outpatient (CLI) | payer MEDICAID, SELFPAY ==
--- NOTE | 2022-08-02 14:53 | CT_ITS ---
INDICATION: Abdominal distention. EXAMINATION: CT ABDOMEN AND PELVIS WITH CONTRAST - CT Abdomen And Pelvis W/ Contrast Injection TECHNIQUE: Helically acquired images were obtained of the abdomen and pelvis following IV contrast. A radiation dose optimization technique was used for this scan. IV Contrast dosage and agent: 100 mL of Isovue-300 Oral contrast: With COMPARISON: None. FINDINGS: LOWER CHEST: Lung bases are clear. No cardiomegaly or pericardial effusion. LIVER: The liver is mildly enlarged and diffusely fatty infiltrated. No enhancing mass. GALLBLADDER AND BILIARY TREE: Status post cholecystectomy. No intra- or extrahepatic biliary ductal dilation. PANCREAS: No focal cystic or solid mass. SPLEEN: Normal size without focal cystic or solid mass. ADRENAL GLANDS: No nodules. KIDNEYS AND URETERS: Normal renal size and position. No hydronephrosis. Normal ureters. PERITONEUM: No ascites or free air. No other fluid collection. BOWEL: Nondistended stomach. Normal small intestine. Normal colon. Question appendectomy. LYMPH NODES: No enlarged mesenteric or retroperitoneal lymph nodes. VESSELS: Normal abdominal aorta. Normal IVC. URINARY BLADDER: Distended urinary bladder. REPRODUCTIVE ORGANS: Unremarkable vaginal cuff. The patient is status post hysterectomy. ABDOMINAL WALL: No discrete abdominal or pelvic wall hernia. BONES: Minimal degenerative changes of the lumbar spine. CT/Abdomen/Pelvis WITH Contrast IMPRESSION: 1. Resolution of the colonic disc dimension seen on the previous study. 2. No other major interval change. Electronically Signed: Juni Keita DO at 23:08 [facility] ,
[2022-08-02 16:56] LABS: CREATININE FINGERSTICK < 0.9 mg/dL (0.55-1.02); EGFR FINGERSTICK > 60.0000 mL/min (>60)
== END | disposition home or self-care (01) ==
LOC: CT 14:48
PROVIDERS: Visit Provider Surgery
DX: R14.0 Abdominal distension (gaseous) (principal); Z90.49 Acquired absence of other specified parts of digestive tract; Z90.710 Acquired absence of both cervix and uterus; R16.0 Hepatomegaly, not elsewhere classified
CPT/HCPCS: 74177; Q9967

== ENCOUNTER 2022-08-13 16:54 | Outpatient (RCR) | payer MEDICAID, SELFPAY ==
--- NOTE | 2022-08-13 17:43 | HP.PTEVAL ---
Patient's Visit Information AALIYAH LAY is a 57 year old F referred to Physical Therapy by NADIA Roberts with a diagnosis of CRPS, edema LE. Date of Evaluation: 08/13/22 Physical Therapist: Andrae Brooks, DPT, OCS, CSCS - Visit Plan Frequency: 3x /Week Duration: 4-6 Weeks Plan: 3x/week for 3-6 weeks for. aquatic therapy for ankle, knee and hip strength, core and postural strength...HS and quad and gasroc stretching and progress to I pool or home program or transition to gym after pool therapy(pt is member at [employer]. - Subjective I have RSD in both LE. It has gone trough my whole body since falling off a chair and landing on L ankle turning it in and breaking it in. Never healed as far pain goes. That was 2005 and it has hurt since. Was controlled for a bit with cymbalta but has effected her whole body at times. Most of pain is in knees and feet and ankles B LE. Pain up to 03/13 and is worse with working 8 hours. 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 Worse after work. 8 hr shifts 40 hrs per week. Currently 8/. I have gout right now. Will see doctor for gout on Dr. Fry. Got and had to get a job and that has flared it back up. Cannot walk dog anymore and both shoulder need surgery. Sleep is not great since RSD keeps her moving. Exercises: No. Lives alone and takes care of self but hit and miss with cooking and cleaning. Hobbies: camping and walking but not doing them anymore. Will have nerve block on friday for RSD. has had numerous in past and they help. has tens unit but has not tried on legs. Has tried massage stretching and strengthening. Has PFitis too. - Pain B LE ankles and feet. Pain Intensity (Out of 10): 8 Pain Intensity Range: 2, 8 - Objective Walks I but slow, trasnfers I chair and bed without need UE. Steps reciprocal with rail but slow and painful and weak. Lumbar ROM ext mod limtied and pianful centrally, flexion mod limited and no pain. Hip ROM extension 5 degrees B, otherwise WFL. Tightness obvious in B HS at -30 90/90 test and B quads into psoas. Knee and Ankle AROM WFL otherwise with some gastroc tightness in B ankles. strength is 3/5 hip abd and extension and 3+ in B hip flexion. knee flexion and extension 4- B. ankle strength 4- B DF, PF, inv, eversion and no c/o tenderness with my foot or ankle pressure until cued. She does have mild edema in B LE and no stockings on today. reflexes 0/3 patella and achilles B. Sensation LE hypersensitive to touch in ankles and feet but no other gross abnormalities. - slump, - SLR, - Balance/Special Test Scores Functional Gait Assessment Score: 26 % Disability: 13.3400 Lower Extremity Functional Score: 18 - Goals Goal 1:: Pateint I in appropriate home or pool or gym based ex to help manage activity and pain Goal Time Frame: 4-6 Weeks Goal 2:: Pain 2/10 at worst in knees and feet and 80% better overall. Goal Time Frame: 4-6 Weeks Goal 3:: LEFS score 38 Goal Time Frame: 4-6 Weeks Goal 4:: Sleep without waking due to pain Goal Time Frame: 4-6 Weeks - Rehabilitation Potential Physical Therapy Diagnosis: Patient with widespread pain poorly managed and very sedentary Rehabilitation Potential: Questionable - Anticipated Interventions Patient/Client Instruction: Educate patient on: Condition, Plan of Care For the Purpose of:: To decrease pain, To increase ROM, To improve muscle performance and motor function, To increase tolerance to activity/condition/position, To improve ability of physical actions for home/community/work/leisure Therapeutic Exercise to Include: Strength training, Flexibilty training, In an aquatic setting, Passive ROM, Active ROM, Dynamic Lumbar Stabilization For the Purpose of:: To decrease pain, To increase ROM, To improve muscle performance and motor function, To improve ability of physical actions for home/community/work/leisure, To improve gait and locomotor functions Thank you for the opportunity to evaluate your patient. For Medicare and Medicare HMO plans, please review the plan of care and approve it. It will need to be FAXED BACK to us at [phone] for Medicare purposes. For Medicare only, by signing this I certify the plan of care. Please let me know if there are questions or concerns regarding this plan of care. Physician Signature: Date:
--- NOTE | 2022-11-12 10:41 | HP.PT.NRP ---
AALIYAH LAY was seen in my office for initial evaluation on 08/13/22. The following Plan of Care was established for this patient: Initial Frequency: 3x /Week Initial Duration: 4-6 Weeks Patient/Client Instruction: Educate patient on: Condition, Plan of Care For the Purpose of:: To decrease pain, To increase ROM, To improve muscle performance and motor function, To increase tolerance to activity/condition/position, To improve ability of physical actions for home/community/work/leisure Therapeutic Exercise to Include: Strength training, Flexibilty training, In an aquatic setting, Passive ROM, Active ROM, Dynamic Lumbar Stabilization For the Purpose of:: To decrease pain, To increase ROM, To improve muscle performance and motor function, To improve ability of physical actions for home/community/work/leisure, To improve gait and locomotor functions This patient was last seen in our office 08/13/22. Pertinent comments regarding their Physical therapy will appear below: pt seen one visit and POC established. No visits were attended or scheduled. She was contacted again last month but did not schedule or attend. at this point, it has been over 3 months and I will discontinue due to nonattendance. At this point I will be discontinuing this patient from physical therapy. I would be happy to see this patient again in the future if found appropriate by the physician. Thank you! Andrae Brooks, DPT, OCS, CSCS Balance/Gait/Functional tests - Balance/Special Test Scores Functional Gait Assessment Score: 26 % Disability: 13.3400 Lower Extremity Functional Score: 18
== END 2022-08-13 19:00 | disposition home or self-care (01) ==
LOC: PT 16:54
PROVIDERS: Referring Provider Nurse Practitioner Family; Visit Provider Nurse Practitioner Family
DX: G56.40 Causalgia of unspecified upper limb (principal); R60.0 Localized edema
CPT/HCPCS: 97162

== ENCOUNTER → 2022-08-15 | Outpatient (CLI) | payer MEDICAID, SELFPAY ==
[2022-08-15 16:56] LABS: Erythrocyte Sedimentation Rate 20 mm/hr (0-30)
[2022-08-15 16:58] LABS: Absolute Lymphocyte Count 3.76 X10^3/uL (0.83-4.51); Basophil# 0.07 X10^3/uL; Basophil% 0.7 % (0-1); Eosinophil# 0.22 X10^3/uL; Eosinophils% 2.2 % (0-5); Hematocrit 40.7 % (37-47); Hemoglobin 13.1 g/dL (12.0-15.0); Lymphocyte # 3.76 X10^3/ul (0.83-4.51); Lymphocyte % 38.4 % (19-41); Mean Corp Hgb Conc 32.2 g/dL (32-36); Mean Corpuscular Hgb 30.4 pg (27.0-32.0); Mean Corpuscular Volume 94.4 fL (81-99); Mean Platelet Vol. 9.6 fl (6.2-12.0); Monocyte# 0.71 X10^3/uL; Monocyte% 7.2 % (0-10); NRBC Flagged by Analyzer 0.2 % (0-5); Neutrophil % 51.1 % (47-70); Platelet Count 363 K/mm3 (150-450); RBC Distribution Width CV 12.4 % (11.6-14.6); RBC Distribution Width SD 43.2 fl (35.1-43.9); Red Blood Count 4.31 M/mm3 (4.2-5.4); White Blood Count 9.8 K/mm3 (4.4-11.0)
[2022-08-15 17:38] LABS: AST(SGOT) 60 U/L (15-37); Alanine Aminotransfer ALT/SGPT 55 U/L (13-56); Albumin, Serum 3.9 g/dL (3.2-5.0); Alkaline Phosphatase 110 U/L (45-117); Anion Gap 6 (5-15); BUN 16 mg/dL (7-18); BUN/Creat Ratio 26.6 RATIO (10-20); CRP 6.86 mg/L (0.0-3.0); Calcium,Total 9.9 mg/dL (8.5-10.1); Chloride 104 mmol/L (98-107); EST Glomerular Filtration Rate 110 mL/min (>60); Est Glom Filt Rate - Afr Amer 133 mL/min (>60); Glucose 136 mg/dL (74-106); Potassium 3.5 mmol/L (3.5-5.1); Protein, Total 7.9 g/dL (6.4-8.2); Sodium Level 136 mmol/L (136-145); Uric Acid 4.4 mg/dL (2.6-6.0)
== END | disposition home or self-care (01) ==
LOC: LABSPEC 16:00
PROVIDERS: Visit Provider Internal Medicine
DX: M79.671 Pain in right foot (principal)
CPT/HCPCS: 36415; 80053; 84550; 85025; 85652; 86140

== ENCOUNTER 2022-08-17 17:34 | Emergency (ER) | payer MEDICAID, SELFPAY ==
[2022-08-17 17:36] VITALS: BP 158/76; PULSE 76; RESP 16; TEMP 36.6; O2SAT 100; BMI 28.1
--- NOTE | 2022-08-17 18:43 | EDS_ITS ---
HPI History of Present Illness Chief Complaint: Back Informant: patient Narrative Narrative: Patient had a lumbar injection on the left side for reflex sympathetic dystrophy related to an ankle fracture. She has had multiple injections in the past. However, this time they used a different compound as the an injection. It sounds like it was not as much of a steroid as normal or will not affect her blood sugars as much as normal. She is not sure what the compound was. She has increased pain today. But she is not having increased radicular pain numbness tingling. She always has symptoms down her left leg but they are really at baseline. She describes her kidneys hurting but when she points to the kidney she points actually down low by the sacrum. She has no urinary symptoms. No difficulty starting or stopping urination. No stool incontinence. She has had no fevers or chills. No abdominal pain. Not syncopal. It is worse sitting and moving. She states standing seems to be a little bit better for a while. PFSH [facility] Medical History Acute otitis externa of left ear Acute sinusitis, unspecified Arthritis Asthma Asthma Bronchitis Cardiology follow-up encounter Chest pain Contusion of right ankle Contusion of right foot Depressed Diabetes Diabetes mellitus type II, controlled Difficulty swallowing Dyspnea on exertion Easy bruising Episode of syncope Essential hypertension SACHA (generalized anxiety disorder) Gastric reflux GERD (gastroesophageal reflux disease) GI bleed Hemorrhoids High cholesterol History of colon polyps History of echocardiogram History of stress test Hyperlipidemia Injury of head and neck Marijuana use Nausea & vomiting Near syncope Non-smoker Orthostatic hypotension Pneumonia Positive PPD, treated Restless legs RSD (reflex sympathetic dystrophy) Shoulder pain Statin intolerance Strain of right hip Strain of unspecified muscle, fascia and tendon at shoulder and upper arm level, right arm, initial encounter TIA (transient ischemic attack) Urinary tract infection with hematuria Wears glasses Home Medications albuterol sulfate 90 mcg/actuation aerosol inhaler 2 puff inhalation Q4H PRN PRN sob 03/04/14 [History Last Taken 08/15/19] omeprazole 20 mg capsule,delayed release 20 mg PO DAILY GERD 01/04/20 [History Last Taken Unknown] ondansetron 4 mg disintegrating tablet 8 mg PO Q8H PRN PRN Nausea #20 tabs 10/05/20 [Rx Last Taken Unknown] ezetimibe 10 mg tablet 10 mg PO DAILY CHOLESTEROL #90 tabs 04/19/21 [Rx Last Taken Unknown] glimepiride 4 mg tablet 4 mg PO DAILY #30 tabs 08/23/21 [Rx Last Taken Unknown] diphenhydramine HCl 25 mg capsule 25 mg PO DAILY PRN allergy symptoms 03/28/22 [History Last Taken Unknown] cholecalciferol (vitamin D3) 50 mcg (2,000 unit) capsule (Vitamin D3) 50 mcg PO DAILY 04/04/22 [History Last Taken Unknown] zinc 1 tab PO DAILY 04/04/22 [History Last Taken Unknown] lorazepam 1 mg tablet 0.5 mg PO TID PRN PRN Anxiety #30 tabs 05/27/22 [Rx Last Taken Unknown] triamcinolone acetonide 0.1 % topical cream 1 applic topical BID #30 grams 05/27/22 [Rx Last Taken Unknown] cyanocobalamin (vitamin B-12) 1,000 mcg/mL oral drops (Vitamin B-12) 1 ml PO DAILY 06/11/22 [History Last Taken Unknown] lisinopril 20 mg-hydrochlorothiazide 25 mg tablet 1 tab PO QHS BP #90 tabs 06/29/22 [Rx Last Taken Unknown] calcium carbonate 333 mg-magnesium oxide 133 mg-zinc gluc 5 mg tablet 3 tab PO DAILY 07/22/22 [History Last Taken Unknown] duloxetine 60 mg capsule,delayed release 120 mg PO DAILY ANXIETY 30 days #60 caps 08/13/22 [Rx Last Taken Unknown] celecoxib 200 mg capsule 200 mg PO DAILY PRN pain #30 caps 08/16/22 [Rx Last Taken Unknown] oxycodone-acetaminophen 5 mg-325 mg tablet (Percocet) 1 tab PO Q6H PRN pain 3 days #10 tabs 08/17/22 [Rx Last Taken Unknown] Allergy/AdvReac Type Severity Reaction Status Date / Time adalimumab [From Humira] Allergy Unknown Verified 08/17/22 17:36 amoxicillin trihydrate Allergy Unknown Verified 08/17/22 17:36 [From Augmentin] codeine Allergy Itching Verified 08/17/22 17:36 etanercept [From Enbrel] Allergy Unknown Verified 08/17/22 17:36 leflunomide [From Arava] Allergy Other Verified 08/17/22 17:36 metoprolol tartrate Allergy Unknown Verified 08/17/22 17:36 [From Lopressor] morphine sulfate Allergy Unknown Verified 08/17/22 17:36 [From Embeda] naltrexone HCl [From Embeda] Allergy Unknown Verified 08/17/22 17:36 oxymorphone [Oxymorphone] Allergy Unknown Verified 08/17/22 17:36 pioglitazone HCl [From Actos] Allergy Other Verified 08/17/22 17:36 pneumococcal 23-valent Allergy Unknown Verified 08/17/22 17:36 polysacchari [From Pneumovax ] potassium clavulanate Allergy Unknown Verified 08/17/22 17:36 [From Augmentin] Vhjhlus-EVI-LyH Reductase Allergy Unknown Verified 08/17/22 17:36 Inhibitor [Idswniv-Vvj-Tdt Reductase Inhibitor] Sulfa (Sulfonamide Allergy Anaphylaxis Verified 08/17/22 17:36 Antibiotics) sulfamethoxazole Allergy Anaphylaxis Verified 08/17/22 17:36 [From Bactrim] telithromycin [From Ketek] Allergy Unknown Verified 08/17/22 17:36 tramadol HCl [From Ultram] Allergy Unknown Verified 08/17/22 17:36 trimethoprim [From Bactrim] Allergy Anaphylaxis Verified 08/17/22 17:36 Family History Father Diabetes Hypertension Mother Diabetes Hypertension Colon polyp Other Cancer Surgical History History of appendectomy History of arthroscopy of right knee History of colonoscopy History of hysterectomy Hx of shoulder surgery Social History household members: none Smoking Status: Never smoker alcohol intake: current alcohol intake frequency: 0-2 drinks per day Alcohol type: hard liquor substance use type: other details: Gummies ROS ROS ED Constitutional Constitutional ED: Denies chills, fever(s) or subjective Eyes Eyes: Denies change in vision ENT ENT ED: Denies rhinorrhea Cardiovascular Cardiovascular: Denies chest pain or palpitations Respiratory/Chest Respiratory/Chest: Denies dyspnea or dyspnea on exertion Gastrointestinal Gastrointestinal: Denies abdominal pain, constipation, diarrhea, melena, nausea or vomiting Genitourinary Genitourinary ED: Denies dysuria, hematuria or urinary frequency Musculoskeletal Musculoskeletal: Reports back pain Integumentary Denies Abrasions or rash Neurologic Neurologic: Reports paresthesias; Denies headache(s) or weakness Endocrine Endocrinology: Denies polydipsia or polyuria Hematologic/Lymphatic Hematologic/Lymphatic: Denies easy bleeding or easy bruising Allergic/Immunologic Allergic/Immunologic ED: Denies urticaria EXAM Physical Exam Narrative Exam Narrative: Patient is sitting in bed. She is awake alert appropriate. She does look mildly uncomfortable. She is nontoxic. HEENT is normal. No pain with motion of her neck. Her lungs are clear and no pain with a deep breath. Heart is regular without murmur gallop rub or muffled heart tones. Peripheral pulses are normal. Abdomen is soft and completely nontender. There is no tenderness cervical thoracic spine. There is really no lumbar spine tenderness. There is signs of a site of injection to the left at likely L2 or 3 area. But is not red or swollen. Most of her pain is actually a little bit below this and does go both sides. I see no sign at all of infection. No deformities. She has normal lower extremity strength. She has good 2+ bilateral patellar reflexes. She can get up off the bed and stand up by herself. No discoordination. Const Vital Signs: 08/17/22 17:36 Temperature 97.8 F Temperature Source Temporal Pulse Rate 76 Respiratory Rate 16 Blood Pressure 158/76 H Blood Pressure Mean 103 Pulse Ox 100 Oxygen Delivery Method Room Air MDM MDM MDM Narrative Medical decision making narrative: Patient's urinalysis shows no sign of infection or blood. I rechecked the patient. She is doing much better with just 1 pain pill. I did do online prescribing report. It has been sometime since she had narcotics. I will write her for a small dose for a few days. If she develops numbness tingling weakness bowel bladder dysfunction fevers or chills or worsening pain she should come back. I do not think there is any indication for CBC as there is no indication of infection or blood loss. I do not think she needs a electrolytes or kidney function. I do not think she needs CT scan of the abdomen or pelvis or back. There is no indication of MRI for cauda or neurologic deficit. Lab Data Labs: Laboratory Results - last 24 hr 08/17/22 19:00 Urine Color Yellow Urine Clarity Sl. Cloudy Urine pH 7.0 Ur Specific [place] 1.015 Urine Protein Negative Urine Glucose (UA) Normal Urine Ketones Negative Urine Occult Blood Negative Urine Nitrite Negative Urine Bilirubin Negative Urine Urobilinogen Normal Ur Leukocyte Esterase Negative Urine RBC 0 SEEN Urine WBC 0 SEEN Ur Squamous Epith Cells 0-5 SEEN Urine Bacteria 0 SEEN Urine Mucus 0 SEEN Discharge Plan Triage Chief Complaint: Back ED Provider: Sony Singh Dx/Rx/DC Orders Clinical Impression: Back pain, Injection site irritation, History of reflex sympathetic dystrophy Instructions: ED Back Pain (Acute or Chronic) Prescriptions: New oxycodone-acetaminophen [Percocet] 5-325 mg tablet 1 tab PO Q6H PRN (Reason: pain) 3 Days Qty: 10 0RF Rx Instructions: May take with Benadryl to avoid itching. No Action lorazepam 1 mg tablet 0.5 mg PO TID PRN PRN (Reason: Anxiety) Qty: 30 0RF triamcinolone acetonide 0.1 % cream 1 applic topical BID Qty: 30 0RF Rx Instructions: Apply to affected area on left upper shoulder, twice daily x10 days then stop. Vitamin B-12 1,000 mcg/mL drops 1 ml PO DAILY duloxetine 60 mg capsule,delayed release(DR/EC) 120 mg PO DAILY 30 Days Qty: 60 2RF albuterol sulfate 1 PUFF inhaler 2 puff INHALATION Q4H PRN PRN (Reason: sob) omeprazole 20 mg capsule,delayed release(DR/EC) 20 mg PO DAILY Label Comments: gastric reflux diphenhydramine HCl 25 mg capsule 25 mg PO DAILY PRN (Reason: allergy symptoms) ondansetron 4 MG tablet 8 mg PO Q8H PRN PRN (Reason: Nausea) Qty: 20 0RF glimepiride 4 mg tablet 4 mg PO DAILY Qty: 30 0RF zinc Tablet,Chewable 1 tab PO DAILY cholecalciferol (vitamin D3) [Vitamin D3] 50 mcg (2,000 unit) Capsule 50 mcg PO DAILY calcium carb-mag ox-zinc gluc 333-133-5 mg Tablet 3 tab PO DAILY ezetimibe 10 mg tablet 10 mg PO DAILY Qty: 90 3RF lisinopril-hydrochlorothiazide 20-25 mg tablet 1 tab PO QHS Qty: 90 3RF celecoxib 200 mg capsule 200 mg PO DAILY PRN (Reason: pain) Qty: 30 0RF Primary Care Provider: Lillie Fry Referrals: Lillie Fry MD [Primary Care Provider] - 3-5 Days Disposition Disposition: Home, Self Care
[2022-08-17] MEDS: DiphenhydrAMINE 25 MG Capsule 50 MG PO (19:02)
[2022-08-17] MEDS: oxyCODONE 5 MG Tablet PO (19:02)
[2022-08-17 19:07] LABS: Bacteria 0 SEEN /hpf (None Seen); Mucous, Urine 0 SEEN /hpf (<or=2+); Red Blood Cells-Urine 0 SEEN /hpf (0-5); White Blood Cells 0 SEEN /hpf (0-5)
[2022-08-17 19:08] LABS: Color, Urine Yellow (Yellow); Glucose, Dipstick Normal (Normal); Ketone-Dipstick Negative (Negative); Leukocyte Esterase-Dipstick Negative /ul (Negative); Nitrite-Dipstick Negative (Negative); Occult Blood-Urine Negative /ul (Negative); Protein-Dipstick Negative (Negative); Specific Gravity, Urine 1.015 (1.002-1.030); Urine Bilirubin Dipstick Negative (Negative); Urine Clarity Sl. Cloudy (Clear); Urine Urobilinogen Normal (Normal)
[2022-08-17 19:29] LABS: Squamous Epithelial Cells - UA 0-5 SEEN /hpf (5-10)
== END 2022-08-17 21:35 | disposition home or self-care (01) ==
PROVIDERS: Emergency Provider Emergency Medicine; Visit Provider Emergency Medicine
DX: M54.9 Dorsalgia, unspecified (principal); Z86.73 Personal history of transient ischemic attack (TIA), and cerebral infarction without residual deficits
CPT/HCPCS: 81001; 99283

== ENCOUNTER 2022-08-21 11:14 | Emergency (ER) | payer MEDICAID, SELFPAY ==
[2022-08-21 11:15] VITALS: BP 169/102; PULSE 91; RESP 16; TEMP 36.6; O2SAT 98; BMI 27.6
--- NOTE | 2022-08-21 11:37 | EDS_ITS ---
HPI History of Present Illness Chief Complaint: Hyperglycemia Informant: patient Narrative Narrative: Presents with hyperglycemia over 400 while at work. Noted headache clammy skin with nausea check your glucose. She states normally in the 100s. She is on glimepiride 4 mg daily is her only diabetic medications. Reports sees Dr. Hargrove for pain management 5 days ago had an injection left lower lumbar iliac crest region. She was told her sugar should not be. Is less than 180 at that time. She had increasing pain states she was seen in the ED for pain follow-up on Friday placed on Percocet which is helping her symptoms also was told to restart a steroid pack however she did not start this. Urine frequency. Denies cough. Denies fevers. Denies vomiting. Reported try to call her PCP however unable to get through therefore came here. [facility] Medical History Acute otitis externa of left ear Acute sinusitis, unspecified Arthritis Asthma Asthma Bronchitis Cardiology follow-up encounter Chest pain Contusion of right ankle Contusion of right foot Depressed Diabetes Diabetes mellitus type II, controlled Difficulty swallowing Dyspnea on exertion Easy bruising Episode of syncope Essential hypertension SACHA (generalized anxiety disorder) Gastric reflux GERD (gastroesophageal reflux disease) GI bleed Hemorrhoids High cholesterol History of colon polyps History of echocardiogram History of stress test Hyperlipidemia Injury of head and neck Marijuana use Nausea & vomiting Near syncope Non-smoker Orthostatic hypotension Pneumonia Positive PPD, treated Restless legs RSD (reflex sympathetic dystrophy) Shoulder pain Statin intolerance Strain of right hip Strain of unspecified muscle, fascia and tendon at shoulder and upper arm level, right arm, initial encounter TIA (transient ischemic attack) Urinary tract infection with hematuria Wears glasses Home Medications albuterol sulfate 90 mcg/actuation aerosol inhaler 2 puff inhalation Q4H PRN PRN sob 03/04/14 [History Last Taken 08/15/19] omeprazole 20 mg capsule,delayed release 20 mg PO DAILY GERD 01/04/20 [History Last Taken Unknown] ondansetron 4 mg disintegrating tablet 8 mg PO Q8H PRN PRN Nausea #20 tabs 10/05/20 [Rx Last Taken Unknown] ezetimibe 10 mg tablet 10 mg PO DAILY CHOLESTEROL #90 tabs 04/19/21 [Rx Last Taken Unknown] glimepiride 4 mg tablet 4 mg PO DAILY #30 tabs 08/23/21 [Rx Last Taken Unknown] diphenhydramine HCl 25 mg capsule 25 mg PO DAILY PRN allergy symptoms 03/28/22 [History Last Taken Unknown] cholecalciferol (vitamin D3) 50 mcg (2,000 unit) capsule (Vitamin D3) 50 mcg PO DAILY 04/04/22 [History Last Taken Unknown] zinc 1 tab PO DAILY 04/04/22 [History Last Taken Unknown] lorazepam 1 mg tablet 0.5 mg PO TID PRN PRN Anxiety #30 tabs 05/27/22 [Rx Last Taken Unknown] triamcinolone acetonide 0.1 % topical cream 1 applic topical BID #30 grams 05/27/22 [Rx Last Taken Unknown] cyanocobalamin (vitamin B-12) 1,000 mcg/mL oral drops (Vitamin B-12) 1 ml PO DAILY 06/11/22 [History Last Taken Unknown] lisinopril 20 mg-hydrochlorothiazide 25 mg tablet 1 tab PO QHS BP #90 tabs 06/29/22 [Rx Last Taken Unknown] calcium carbonate 333 mg-magnesium oxide 133 mg-zinc gluc 5 mg tablet 3 tab PO DAILY 07/22/22 [History Last Taken Unknown] duloxetine 60 mg capsule,delayed release 120 mg PO DAILY ANXIETY 30 days #60 caps 08/13/22 [Rx Last Taken Unknown] celecoxib 200 mg capsule 200 mg PO DAILY PRN pain #30 caps 08/16/22 [Rx Last Taken Unknown] oxycodone-acetaminophen 5 mg-325 mg tablet (Percocet) 1 tab PO Q6H PRN pain 3 days #10 tabs 08/17/22 [Rx Last Taken Unknown] ondansetron 4 mg disintegrating tablet 4 mg PO Q6H PRN nausea and vomiting #10 tabs 08/21/22 [Rx Last Taken Unknown] Allergy/AdvReac Type Severity Reaction Status Date / Time adalimumab [From Humira] Allergy Unknown Verified 08/21/22 11:16 amoxicillin trihydrate Allergy Unknown Verified 08/21/22 11:16 [From Augmentin] codeine Allergy Itching Verified 08/21/22 11:16 etanercept [From Enbrel] Allergy Unknown Verified 08/21/22 11:16 leflunomide [From Arava] Allergy Other Verified 08/21/22 11:16 metoprolol tartrate Allergy Unknown Verified 08/21/22 11:16 [From Lopressor] morphine sulfate Allergy Unknown Verified 08/21/22 11:16 [From Embeda] naltrexone HCl [From Embeda] Allergy Unknown Verified 08/21/22 11:16 oxymorphone [Oxymorphone] Allergy Unknown Verified 08/21/22 11:16 pioglitazone HCl [From Actos] Allergy Other Verified 08/21/22 11:16 pneumococcal 23-valent Allergy Unknown Verified 08/21/22 11:16 polysacchari [From Pneumovax ] potassium clavulanate Allergy Unknown Verified 08/21/22 11:16 [From Augmentin] Zauopou-OME-UsJ Reductase Allergy Unknown Verified 08/21/22 11:16 Inhibitor [Kculssp-Knf-Ipj Reductase Inhibitor] Sulfa (Sulfonamide Allergy Anaphylaxis Verified 08/21/22 11:16 Antibiotics) sulfamethoxazole Allergy Anaphylaxis Verified 08/21/22 11:16 [From Bactrim] telithromycin [From Ketek] Allergy Unknown Verified 08/21/22 11:16 tramadol HCl [From Ultram] Allergy Unknown Verified 08/21/22 11:16 trimethoprim [From Bactrim] Allergy Anaphylaxis Verified 08/21/22 11:16 Family History Father Diabetes Hypertension Mother Diabetes Hypertension Colon polyp Other Cancer Surgical History History of appendectomy History of arthroscopy of right knee History of colonoscopy History of hysterectomy Hx of shoulder surgery Social History household members: none Smoking Status: Never smoker alcohol intake: current alcohol intake frequency: 0-2 drinks per day Alcohol type: hard liquor substance use type: other details: Gummies ROS ROS ED Constitutional Constitutional ED: Denies chills, fever(s) or sweats Eyes Eyes: Denies change in vision ENT ENT ED: Denies dysphagia or sore throat Cardiovascular Cardiovascular: Denies chest pain, leg edema, palpitations or racing heartbeat Respiratory/Chest Respiratory/Chest: Denies cough, dyspnea or dyspnea on exertion Gastrointestinal Gastrointestinal: Reports nausea; Denies abdominal pain, diarrhea or vomiting Genitourinary Genitourinary ED: Denies dysuria, hematuria or urinary frequency Musculoskeletal Musculoskeletal: Denies back pain, extremity pain or neck pain Integumentary Denies rash or wounds Neurologic Neurologic: Reports headache(s); Denies paresthesias or weakness EXAM Physical Exam Const Vital Signs: 08/21/22 11:15 08/21/22 12:14 Temperature 97.8 F Temperature Source Temporal Pulse Rate 91 Respiratory Rate 16 Respiratory Effort Normal Non-Labored Respiratory Pattern Normal Blood Pressure 169/102 H Blood Pressure Mean 124 Pulse Ox 98 Oxygen Delivery Method Room Air Positive well nourished and well developed General Appearance ED: well developed and NAD HEENT Reports moist mucous membranes normocephalic and atraumatic Eyes PERRL, EOMs intact bilaterally and conjunctivae normal General Eye ED: Yes normal appearance of both eyes Neck no lymphadenopathy and supple Neck Narrative: No meningismus General: Negative for tenderness Chest Wall Chest: Negative for tenderness Resp normal respiratory effort and normal air movement Effort and Inspection: symmetric chest movement; Negative for respiratory distress Cardio regular rate, regular rhythm and no murmurs Peripheral Pulses: pulses 2+ throughout GI normal to inspection, nondistended, normoactive bowel sounds and non-tender Palpation: Negative for guarding or rebound tenderness present Back/Spine no CVA tenderness and no thoracic nor lumbar tenderness Extremity normal to inspection General Extremety ED: Negative for edema or tenderness General Extremity: Negative for edema Neuro oriented x3, CN's II-XII intact bilaterally and no sensory deficits noted Sensorium / Orientation: awake and alert Skin no rashes or lesions noted and no wounds MDM MDM MDM Narrative Medical decision making narrative: Patient. Hyperglycemia. Differential would be steroid-induced from her injections. Patient different DKA. Headache with no focal deficits no signs of meningismus for meningitis concerns. Could be nonspecific headaches from her hyperglycemia. She will be given IV fluids, DKA labs will be ordered. Will give Zofran and Tylenol for symptoms. Labs reviewed per myself glucose 253. No DKA findings. Urine only ~25 leukocytes he has no dysuria. We will send for culture. After fluids clinically feeling much better. There is plan for Zofran to use as needed. Outpatient follow-up with return precautions. All questions were answered. Lab Data Attestation: I reviewed the patient's lab results. Labs: Laboratory Results - last 24 hr 08/21/22 08/21/22 08/21/22 11:55 11:55 12:04 WBC 11.8 H RBC 4.94 Hgb 15.2 H Hct 45.2 MCV 91.5 MCH 30.8 MCHC 33.6 RDW Std Deviation 40.7 RDW Coeff of [place] 12.2 Plt Count 398 MPV 9.0 Immature Gran % (Auto) 0.400 Neut % (Auto) 62.2 Lymph % (Auto) 28.4 [place] % (Auto) 8.0 Eos % (Auto) 0.5 Baso % (Auto) 0.5 Absolute Neuts (auto) 7.4 Absolute Lymphs (auto) 3.36 Nucleated RBC % 0 Sodium 133 L Potassium 3.7 Chloride 98 Carbon Dioxide 23.0 Anion Gap 12 BUN 22 H Creatinine 0.95 Estim Creat Clear Calc 66.70 Est GFR (MDRD) Af Amer 78 Est GFR (MDRD) Non-Af 65 BUN/Creatinine Ratio 23.2 H Glucose 253 H Calcium 11.4 H Urine Color Yellow Urine Clarity Clear Urine pH 6.0 Ur Specific [place] 1.015 Urine Protein 30 H Urine Glucose (UA) Normal Urine Ketones 5 H Urine Occult Blood Negative Urine Nitrite Negative Urine Bilirubin Negative Urine Urobilinogen Normal Ur Leukocyte Esterase 25 H Urine RBC 0 SEEN Urine WBC 0-5 SEEN Ur Squamous Epith Cells 0 SEEN Urine Bacteria 0 SEEN Urine Mucus 0 SEEN Discharge Plan Triage Chief Complaint: Hyperglycemia ED Provider: Mir Nunez Dx/Rx/DC Orders Clinical Impression: Hyperglycemia, drug-induced, History of diabetes mellitus, Headache Instructions: Self-Care for Headaches, ED Diabetic Hyperglycemia Prescriptions: New ondansetron 4 mg tablet,disintegrating 4 mg PO Q6H PRN (Reason: nausea and vomiting) Qty: 10 0RF No Action lorazepam 1 mg tablet 0.5 mg PO TID PRN PRN (Reason: Anxiety) Qty: 30 0RF triamcinolone acetonide 0.1 % cream 1 applic topical BID Qty: 30 0RF Rx Instructions: Apply to affected area on left upper shoulder, twice daily x10 days then stop. Vitamin B-12 1,000 mcg/mL drops 1 ml PO DAILY duloxetine 60 mg capsule,delayed release(DR/EC) 120 mg PO DAILY 30 Days Qty: 60 2RF albuterol sulfate 1 PUFF inhaler 2 puff INHALATION Q4H PRN PRN (Reason: sob) omeprazole 20 mg capsule,delayed release(DR/EC) 20 mg PO DAILY Label Comments: gastric reflux diphenhydramine HCl 25 mg capsule 25 mg PO DAILY PRN (Reason: allergy symptoms) ondansetron 4 MG tablet 8 mg PO Q8H PRN PRN (Reason: Nausea) Qty: 20 0RF glimepiride 4 mg tablet 4 mg PO DAILY Qty: 30 0RF zinc Tablet,Chewable 1 tab PO DAILY cholecalciferol (vitamin D3) [Vitamin D3] 50 mcg (2,000 unit) Capsule 50 mcg PO DAILY calcium carb-mag ox-zinc gluc 333-133-5 mg Tablet 3 tab PO DAILY oxycodone-acetaminophen [Percocet] 5-325 mg tablet 1 tab PO Q6H PRN (Reason: pain) 3 Days Qty: 10 0RF Rx Instructions: May take with Benadryl to avoid itching. ezetimibe 10 mg tablet 10 mg PO DAILY Qty: 90 3RF lisinopril-hydrochlorothiazide 20-25 mg tablet 1 tab PO QHS Qty: 90 3RF celecoxib 200 mg capsule 200 mg PO DAILY PRN (Reason: pain) Qty: 30 0RF Primary Care Provider: Lillie Fry Referrals: Lillie Fry MD [Primary Care Provider] - 3-5 Days Activity Restrictions/Additional Instructions: Negative DKA work-up. Glucose 253 the lab. Nausea medicines as needed. Slightly recent steroid induced hyperglycemia. You will be contacted if urine culture returns with infection. Disposition Disposition: Home, Self Care Discharge Date/Time: 08/21/22 13:26
[2022-08-21] MEDS: Acetaminophen 500 MG Tablet 1000 MG PO (11:58)
[2022-08-21] MEDS: 0.9% Normal Saline 1,000 ML 1000 ML IV (11:58)
[2022-08-21] MEDS: Ondansetron 4 MG/2 ML Vial IV (11:59)
[2022-08-21 12:06] LABS: Absolute Lymphocyte Count 3.36 X10^3/uL (0.83-4.51); Absolute Neutrophil Count 7.4 X10^3/uL (2.0-7.7); Basophil# 0.06 X10^3/uL; Basophil% 0.5 % (0-1); Eosinophil# 0.06 X10^3/uL; Eosinophils% 0.5 % (0-5); Hematocrit 45.2 % (37-47); Hemoglobin 15.2 g/dL (12.0-15.0); Lymphocyte # 3.36 X10^3/ul (0.83-4.51); Lymphocyte % 28.4 % (19-41); Mean Corp Hgb Conc 33.6 g/dL (32-36); Mean Corpuscular Hgb 30.8 pg (27.0-32.0); Mean Corpuscular Volume 91.5 fL (81-99); Monocyte# 0.95 X10^3/uL; NRBC Flagged by Analyzer 0 % (0-5); Neutrophil # 7.36 X10^3/uL (2.7-7.7); Neutrophil % 62.2 % (47-70); Platelet Count 398 K/mm3 (150-450); RBC Distribution Width CV 12.2 % (11.6-14.6); RBC Distribution Width SD 40.7 fl (35.1-43.9); Red Blood Count 4.94 M/mm3 (4.2-5.4); White Blood Count 11.8 K/mm3 (4.4-11.0)
[2022-08-21 12:11] LABS: Bacteria 0 SEEN /hpf (None Seen); Mucous, Urine 0 SEEN /hpf (<or=2+); Red Blood Cells-Urine 0 SEEN /hpf (0-5); Squamous Epithelial Cells - UA 0 SEEN /hpf (5-10)
[2022-08-21 12:17] LABS: Anion Gap 12 (5-15); BUN 22 mg/dL (7-18); BUN/Creat Ratio 23.2 RATIO (10-20); Calcium,Total 11.4 mg/dL (8.5-10.1); Chloride 98 mmol/L (98-107); Creatinine, Serum 0.95 mg/dL (0.55-1.02); EST Glomerular Filtration Rate 65 mL/min (>60); Est Glom Filt Rate - Afr Amer 78 mL/min (>60); Glucose 253 mg/dL (74-106); Potassium 3.7 mmol/L (3.5-5.1); Sodium Level 133 mmol/L (136-145)
[2022-08-21 12:18] LABS: Glucose, Dipstick Normal (Normal); Ketone-Dipstick 5 mg/dl (Negative); Leukocyte Esterase-Dipstick 25 /ul (Negative); Nitrite-Dipstick Negative (Negative); Occult Blood-Urine Negative /ul (Negative); Protein-Dipstick 30 mg/dl (Negative); Specific Gravity, Urine 1.015 (1.002-1.030); Urine Bilirubin Dipstick Negative (Negative); Urine Urobilinogen Normal (Normal)
[2022-08-21 12:25] LABS: Color, Urine Yellow (Yellow); Urine Clarity Clear (Clear)
[2022-08-21 12:29] LABS: White Blood Cells 0-5 SEEN /hpf (0-5)
== END 2022-08-21 13:26 | disposition home or self-care (01) ==
PROVIDERS: Emergency Provider Emergency Medicine; Visit Provider Emergency Medicine
DX: E11.65 Type 2 diabetes mellitus with hyperglycemia (principal); R51.9 Headache, unspecified; Z86.73 Personal history of transient ischemic attack (TIA), and cerebral infarction without residual deficits; Z79.84 Long term (current) use of oral hypoglycemic drugs
CPT/HCPCS: 80048; 81001; 85025; 87086; 87088; 96361; 96374; 99283; J7030; J2405

== ENCOUNTER → 2022-09-10 | Outpatient (CLI) | payer MEDICAID, SELFPAY ==
[2022-09-10 12:19] LABS: Mucous, Urine 0 SEEN /hpf (<or=2+); Red Blood Cells-Urine 0 SEEN /hpf (0-5)
[2022-09-10 12:29] LABS: Color, Urine Yellow (Yellow); Glucose, Dipstick Normal (Normal); Ketone-Dipstick Negative (Negative); Leukocyte Esterase-Dipstick 500 /ul (Negative); Nitrite-Dipstick Positive (Negative); Occult Blood-Urine 10 /ul (Negative); Protein-Dipstick 30 mg/dl (Negative); Urine Bilirubin Dipstick Negative (Negative); Urine Clarity Sl. Cloudy (Clear); Urine Urobilinogen Normal (Normal)
[2022-09-10 13:00] LABS: Bacteria 2+ /hpf (None Seen); Squamous Epithelial Cells - UA 10-25 SEEN /hpf (5-10); White Blood Cells 10-25 SEEN /hpf (0-5)
== END | disposition home or self-care (01) ==
PROVIDERS: Visit Provider Physician Assistant Surgical
DX: R30.0 Dysuria (principal)
CPT/HCPCS: 81001; 87086; 87088; 87186

== ENCOUNTER 2022-09-30 14:50 | Emergency (ER) | payer MEDICAID, SELFPAY ==
[2022-09-30 14:52] VITALS: BP 171/109; PULSE 121; RESP 18; TEMP 35.5; O2SAT 100
--- NOTE | 2022-09-30 16:00 | EKG12_ITS ---
Test Reason : Blood Pressure : / mmHG Vent. Rate : 105 BPM Atrial Rate : 105 BPM P-R Int : 118 ms QRS Dur : 074 ms QT Int : 348 ms P-R-T Axes : 011 048 030 degrees QTc Int : 459 ms Sinus tachycardia Otherwise normal ECG Confirmed by EVA MURILLO, BRADEN ([id number]), production editor TRISTON ENCARNACION ([id number]) on 10/02/2022 10:24:50 AM Referred By: GEETHA Confirmed By:BRADEN VELASQUEZ MD
--- NOTE | 2022-09-30 16:00 | CT_ITS ---
STUDY: CT BRAIN WITHOUT CONTRAST REASON FOR EXAM: Female, 57 years old. head injury RADIATION DOSAGE (If Supplied By Facility): CTDIvol = ( 4.99 ) mGy, DLP = ( 812.98 ) mGycm TECHNIQUE: Transaxial CT imaging of the brain was performed without administration of intravenous contrast material. Individualized dose optimization techniques were used for this CT. COMPARISON: April 04, 2022 FINDINGS: Normal soft tissue structures. Normal calvarium. Normal size ventricles and extra-axial spaces for the patient''s age. Normal white matter tracts of the cerebral hemispheres. Normal basal ganglia and thalami. Normal brainstem. Normal cerebellum. There is no intracranial hemorrhage. There are no findings of an acute ischemic infarction. Normal visualized paranasal sinuses. No change since prior exam CT/Brain/Head without Contrast IMPRESSION: Normal unenhanced CT scan of the brain. Electronically Signed: Franco Mobley MD at 17:05 EST ,
--- NOTE | 2022-09-30 16:00 | CT_ITS ---
STUDY: CT CERVICAL SPINE WITHOUT CONTRAST REASON FOR EXAM: Female, 57 years old. injury RADIATION DOSAGE (If Supplied By Facility): CTDIvol = ( 22.75 ) mGy, DLP = ( 464.54 ) mGycm TECHNIQUE: High resolution transaxial imaging was performed without contrast material. Sagittal and coronal images were reconstructed. Individualized dose optimization techniques were used for this CT. COMPARISON: None FINDINGS: Normal craniovertebral junction. Normal anterior atlantoaxial articulation. Normal odontoid process. Normal cervical lordosis. Normal vertebral bodies and posterior osseous elements. C2-3: Normal endplates. Normal disc height and morphology. Normal central canal and intervertebral neuroforamina. C3-4: Status post anterior fusion. Normal endplates. No focal disc protrusion. Normal central canal and intervertebral neuroforamina. C4-5: Status post anterior fusion Normal endplates. No focal disc protrusion. Normal central canal and intervertebral neuroforamina. C5-6: Status post anterior fusion Normal endplates. No focal disc protrusion. Normal central canal and intervertebral neuroforamina. C6-7: Normal endplates. Normal disc height and morphology. Normal central canal and intervertebral neuroforamina. C7-T1: Normal endplates. Normal disc height and morphology. Normal central canal and intervertebral neuroforamina. Normal visualized soft tissue structures. CT/Spine Cervical without Contras IMPRESSION: Status post anterior fusion at C3-4, C4-5 and C5-[address] examination of the cervical spine. Electronically Signed: Franco Mobley MD at 17:08 EST ,
--- NOTE | 2022-09-30 16:16 | EDS_ITS ---
HPI History of Present Illness Chief Complaint: Syncope Informant: patient Narrative Narrative: Presents by private vehicle for evaluation headache left rib pain. Reported diarrhea starting no recent antibiotics she reports she had a near syncopal episode going down hitting her head on the TV stand along with injuring her left rib. States her blood pressure was low last couple days down to systolic 60s she held her blood pressure medicine she is on lisinopril and hydrochlorothiazide. Today had nausea and vomiting. She did not feel well. No chest pains. No syncopal episodes. Decreased fluid intake. Currently nauseated. Denies urinary symptoms. Denies recent cough. Denies recent travel. [facility] Medical History Acute otitis externa of left ear Acute sinusitis, unspecified Arthritis Asthma Asthma Bronchitis Cardiology follow-up encounter Chest pain Contusion of right ankle Contusion of right foot Depressed Diabetes Diabetes mellitus type II, controlled Difficulty swallowing Dyspnea on exertion Easy bruising Episode of syncope Essential hypertension SACHA (generalized anxiety disorder) Gastric reflux GERD (gastroesophageal reflux disease) GI bleed Hemorrhoids High cholesterol History of colon polyps History of echocardiogram History of stress test Hyperlipidemia Injury of head and neck Marijuana use Nausea & vomiting Near syncope Non-smoker Orthostatic hypotension Pneumonia Positive PPD, treated Restless legs RSD (reflex sympathetic dystrophy) Shoulder pain Statin intolerance Strain of right hip Strain of unspecified muscle, fascia and tendon at shoulder and upper arm level, right arm, initial encounter TIA (transient ischemic attack) Urinary tract infection with hematuria Wears glasses Home Medications albuterol sulfate 90 mcg/actuation aerosol inhaler 2 puff inhalation Q4H PRN PRN sob 03/04/14 [History Last Taken 08/15/19] omeprazole 20 mg capsule,delayed release 20 mg PO DAILY GERD 01/04/20 [History Last Taken Unknown] ondansetron 4 mg disintegrating tablet 8 mg PO Q8H PRN PRN Nausea #20 tabs 10/05/20 [Rx Last Taken Unknown] ezetimibe 10 mg tablet 10 mg PO DAILY CHOLESTEROL #90 tabs 04/19/21 [Rx Last Taken Unknown] glimepiride 4 mg tablet 4 mg PO DAILY #30 tabs 08/23/21 [Rx Last Taken Unknown] diphenhydramine HCl 25 mg capsule 25 mg PO DAILY PRN allergy symptoms 03/28/22 [History Last Taken Unknown] cholecalciferol (vitamin D3) 50 mcg (2,000 unit) capsule (Vitamin D3) 50 mcg PO DAILY 04/04/22 [History Last Taken Unknown] lorazepam 1 mg tablet 0.5 mg PO TID PRN PRN Anxiety #30 tabs 05/27/22 [Rx Last Taken Unknown] triamcinolone acetonide 0.1 % topical cream 1 applic topical BID #30 grams 05/27/22 [Rx Last Taken Unknown] lisinopril 20 mg-hydrochlorothiazide 25 mg tablet 1 tab PO QHS BP #90 tabs 06/29/22 [Rx Last Taken Unknown] calcium carbonate 333 mg-magnesium oxide 133 mg-zinc gluc 5 mg tablet 3 tab PO DAILY 07/22/22 [History Last Taken Unknown] duloxetine 60 mg capsule,delayed release 120 mg PO DAILY ANXIETY 30 days #60 caps 08/13/22 [Rx Last Taken Unknown] celecoxib 200 mg capsule 200 mg PO DAILY PRN pain #30 caps 08/16/22 [Rx Last Taken Unknown] oxycodone-acetaminophen 5 mg-325 mg tablet (Percocet) 1 tab PO Q6H PRN pain 3 days #10 tabs 08/17/22 [Rx Last Taken Unknown] ondansetron 4 mg disintegrating tablet 4 mg PO Q6H PRN nausea and vomiting #10 tabs 08/21/22 [Rx Last Taken Unknown] cyclobenzaprine 10 mg tablet 10 mg PO TID PRN Muscle Spasm #20 TABLETS 09/30/22 [Rx Last Taken Unknown] ondansetron 4 mg disintegrating tablet 4 mg PO Q8H PRN PRN Nausea #10 tabs 09/30/22 [Rx Last Taken Unknown] tizanidine 2 mg tablet 2 mg PO Q12H PRN PRN neck pain 09/30/22 [History Last Taken Unknown] Allergy/AdvReac Type Severity Reaction Status Date / Time adalimumab [From Humira] Allergy Unknown Verified 09/30/22 14:52 amoxicillin trihydrate Allergy Unknown Verified 09/30/22 14:52 [From Augmentin] codeine Allergy Itching Verified 09/30/22 14:52 etanercept [From Enbrel] Allergy Unknown Verified 09/30/22 14:52 leflunomide [From Arava] Allergy Other Verified 09/30/22 14:52 metoprolol tartrate Allergy Unknown Verified 09/30/22 14:52 [From Lopressor] morphine sulfate Allergy Unknown Verified 09/30/22 14:52 [From Embeda] naltrexone HCl [From Embeda] Allergy Unknown Verified 09/30/22 14:52 oxymorphone [Oxymorphone] Allergy Unknown Verified 09/30/22 14:52 pioglitazone HCl [From Actos] Allergy Other Verified 09/30/22 14:52 pneumococcal 23-valent Allergy Unknown Verified 09/30/22 14:52 polysacchari [From Pneumovax ] potassium clavulanate Allergy Unknown Verified 09/30/22 14:52 [From Augmentin] Bugsaml-TTJ-IxM Reductase Allergy Unknown Verified 09/30/22 14:52 Inhibitor [Qvbvtlm-Hqx-Odm Reductase Inhibitor] Sulfa (Sulfonamide Allergy Anaphylaxis Verified 09/30/22 14:52 Antibiotics) sulfamethoxazole Allergy Anaphylaxis Verified 09/30/22 14:52 [From Bactrim] telithromycin [From Ketek] Allergy Unknown Verified 09/30/22 14:52 tramadol HCl [From Ultram] Allergy Unknown Verified 09/30/22 14:52 trimethoprim [From Bactrim] Allergy Anaphylaxis Verified 09/30/22 14:52 Family History Father Diabetes Hypertension Mother Diabetes Hypertension Colon polyp Other Cancer Surgical History History of appendectomy History of arthroscopy of right knee History of colonoscopy History of hysterectomy Hx of shoulder surgery Social History household members: none Smoking Status: Never smoker alcohol intake: current alcohol intake frequency: 0-2 drinks per day Alcohol type: hard liquor substance use type: other details: Gummies ROS ROS ED Constitutional Constitutional ED: Denies chills, fever(s) or sweats Eyes Eyes: Denies change in vision ENT ENT ED: Denies dysphagia or sore throat Cardiovascular Cardiovascular: Reports other Details: Left rib pain ; Denies chest pain, leg edema, palpitations or racing heartbeat Respiratory/Chest Respiratory/Chest: Denies cough, dyspnea or dyspnea on exertion Gastrointestinal Gastrointestinal: Reports diarrhea, nausea and vomiting; Denies abdominal pain Genitourinary Genitourinary ED: Denies dysuria, hematuria or urinary frequency Musculoskeletal Musculoskeletal: Denies back pain, extremity pain or neck pain Integumentary Denies rash or wounds Neurologic Neurologic: Reports headache(s); Denies paresthesias or weakness EXAM Physical Exam Const Vital Signs: 09/30/22 14:52 09/30/22 16:24 09/30/22 18:08 Temperature 96 F L Temperature Source Temporal Pulse Rate 121 H 96 Respiratory Rate 18 14 Respiratory Effort Normal Non-Labored Respiratory Depth Normal Respiratory Pattern Normal Blood Pressure 171/109 H 123/65 H Blood Pressure Mean 129 Pulse Ox 100 98 Oxygen Delivery Method Room Air Room Air Positive well nourished and well developed General Appearance ED: well developed and NAD HEENT Reports dry mucous membranes HEENT Narrative: Scalp contusion left parietal no hemotympanums no facial bone tenderness. Mild dry mucosal membranes. normocephalic Mouth ED: Yes dry mucous membranes Mouth: dry mucous membranes Eyes PERRL, EOMs intact bilaterally and conjunctivae normal General Eye ED: Yes normal appearance of both eyes Neck no lymphadenopathy and supple Neck Narrative: No meningismus General: Negative for tenderness Chest Wall Chest Narrative: Tender left lateral lower ribs, no crepitus. No ecchymosis. Chest: tenderness Resp normal respiratory effort and normal air movement Resp Narrative: Symmetric breath sounds Effort and Inspection: symmetric chest movement; Negative for respiratory distress Cardio regular rate, regular rhythm and no murmurs Peripheral Pulses: pulses 2+ throughout GI normal to inspection, nondistended, normoactive bowel sounds and non-tender Palpation: Negative for guarding or rebound tenderness present Back/Spine no CVA tenderness and no thoracic nor lumbar tenderness Extremity normal to inspection General Extremety ED: Negative for edema or tenderness General Extremity: Negative for edema Neuro oriented x3, CN's II-XII intact bilaterally and no sensory deficits noted Sensorium / Orientation: awake and alert Skin no rashes or lesions noted and no wounds MDM MDM MDM Narrative Medical decision making narrative: Interventions / MDM: Differential diagnosis: Orthostatic near syncope, dehydration, STEFANO, electrolyte abnormalities Diagnosis considered but do not suspect: Pulmonary embolism, however no dyspnea, pneumothorax, and normal lung sounds and negative chest x-ray My EKG interpretation: Sinus rate of 105, no ST or T wave changes QTc 459. Imaging independently reviewed and interpreted by myself: CT head and neck: No intracranial process, no fractures, left ribs with PA chest: No fracture or pneumothorax. All also read by radiology. External documents reviewed: N/A Test considered but not ordered:N/A ED course: Patient initially tachycardic reported decreased p.o. intake with vomiting diarrhea, no C. difficile risk factors. She given oral fluids EKG sinus rhythm. Labs stable hemoglobin 14.8 electrolytes normal BUN 12 creatinine 0.96. Clinical dehydration. Trauma scans head and neck along with left ribs and chest are negative. She is treated for her pain with fentanyl. Upon return from CT she states she had increasing pain left neck when moved over. This is in the sternocleidomastoid region. Skin additional fentanyl. She had improving symptoms. She has been prescribed Flexeril in the past for muscle relaxer use this was prescribed for her. She is also prescribed Zofran as she felt better after given fluids and IV Zofran. She will continue oral fluids for hydration. Blood pressure remained stable heart rate improved with fluids. Patient stable for discharge home. Return precaution discussed. Re-evaluation: stable Disposition discussed with patient/family/significant other: Patient Case discussed with consulting clinician: N/A Lab Data Labs: Laboratory Results - last 24 hr 09/30/22 09/30/22 16:24 16:24 WBC 10.1 RBC 4.80 Hgb 14.8 Hct 45.3 MCV 94.4 MCH 30.8 MCHC 32.7 RDW Std Deviation 42.8 RDW Coeff of Daiana 12.5 Plt Count 389 MPV 9.4 Immature Gran % (Auto) 0.400 Neut % (Auto) 60.4 Lymph % (Auto) 29.9 [place] % (Auto) 7.8 Eos % (Auto) 0.8 Baso % (Auto) 0.7 Absolute Neuts (auto) 6.1 Absolute Lymphs (auto) 3.02 Nucleated RBC % 0 Sodium 136 Potassium 4.1 Chloride 101 Carbon Dioxide 21.0 Anion Gap 14 BUN 12 Creatinine 0.96 Estim Creat Clear Calc 66.01 Est GFR (MDRD) Af Amer 77 Est GFR (MDRD) Non-Af 64 BUN/Creatinine Ratio 12.4 Glucose 208 H Calcium 10.3 H Radiography Diagnostic Testing: Clinical Impression(s) from Imaging Studies Brain CT 09/30/22 16:00 IMPRESSION: Normal unenhanced CT scan of the brain. Electronically Signed: Franco Mobley MD at 17:05 EST , Cervical Spine CT 09/30/22 16:00 IMPRESSION: Status post anterior fusion at C3-4, C4-5 and C5-[address] examination of the cervical spine. Electronically Signed: Franco Mobley MD at 17:08 EST , Ribs w/Chest X-Ray 09/30/22 16:50 IMPRESSION: RIBS: Normal x-ray examination of the ribs. CHEST: No acute cardiopulmonary pathology. Electronically Signed: Franco Mobley MD at 17:10 EST , EKG Initial EKG: Attestation: I personally reviewed and interpreted this EKG as follows: Comments: Sinus rate of 105, no ST or T wave changes QTc 459. Discharge Plan Triage Chief Complaint: Syncope Other Complaint: Head Injury Hypotension Nausea/Vomiting/Diarrhea Shortness of Breath ED Provider: Mir Nunez Dx/Rx/DC Orders Clinical Impression: Near syncope, Dehydration, Head injury, Chest wall contusion Instructions: ED Chest Wall Contusion, ED Dehydration (Adult), ED Head Injury (Adult), ED Near-Fainting, Uncertain Cause Prescriptions: New cyclobenzaprine 10 mg tablet 10 mg PO TID PRN (Reason: Muscle Spasm) Qty: 20 0RF ondansetron [ondansetron] 4 mg tablet,disintegrating 4 mg PO Q8H PRN PRN (Reason: Nausea) Qty: 10 0RF No Action lorazepam 1 mg tablet 0.5 mg PO TID PRN PRN (Reason: Anxiety) Qty: 30 0RF triamcinolone acetonide 0.1 % cream 1 applic topical BID Qty: 30 0RF Rx Instructions: Apply to affected area on left upper shoulder, twice daily x10 days then stop. duloxetine 60 mg capsule,delayed release(DR/EC) 120 mg PO DAILY 30 Days Qty: 60 2RF albuterol sulfate 1 PUFF inhaler 2 puff INHALATION Q4H PRN PRN (Reason: sob) omeprazole 20 mg capsule,delayed release(DR/EC) 20 mg PO DAILY Label Comments: gastric reflux diphenhydramine HCl 25 mg capsule 25 mg PO DAILY PRN (Reason: allergy symptoms) ondansetron 4 MG tablet 8 mg PO Q8H PRN PRN (Reason: Nausea) Qty: 20 0RF glimepiride 4 mg tablet 4 mg PO DAILY Qty: 30 0RF cholecalciferol (vitamin D3) [Vitamin D3] 50 mcg (2,000 unit) Capsule 50 mcg PO DAILY calcium carb-mag ox-zinc gluc 333-133-5 mg Tablet 3 tab PO DAILY oxycodone-acetaminophen [Percocet] 5-325 mg tablet 1 tab PO Q6H PRN (Reason: pain) 3 Days Qty: 10 0RF Rx Instructions: May take with Benadryl to avoid itching. ondansetron 4 mg tablet,disintegrating 4 mg PO Q6H PRN (Reason: nausea and vomiting) Qty: 10 0RF tizanidine 2 mg tablet 2 mg PO Q12H PRN PRN (Reason: neck pain) ezetimibe 10 mg tablet 10 mg PO DAILY Qty: 90 3RF lisinopril-hydrochlorothiazide 20-25 mg tablet 1 tab PO QHS Qty: 90 3RF celecoxib 200 mg capsule 200 mg PO DAILY PRN (Reason: pain) Qty: 30 0RF Primary Care Provider: Lillie Fry Referrals: Lillie Fry MD [Primary Care Provider] - 3-5 Days Activity Restrictions/Additional Instructions: CT head and neck negative. Rib series x-ray negative. Labs are all stable. Continue oral fluids at home for hydration. Monitor symptoms. Follow-up with your doctor. Return if any worsening symptoms. Disposition Disposition: Home, Self Care Discharge Date/Time: 09/30/22 18:38
[2022-09-30 16:21] VITALS: BMI 28.5
[2022-09-30] MEDS: fentaNYL 100 MCG/2 ML Ampul 50 MCG IV ×2 (16:30→17:30)
[2022-09-30] MEDS: Ondansetron 4 MG/2 ML Vial IV (16:30)
[2022-09-30] MEDS: 0.9% Normal Saline 1,000 ML 1000 ML IV (16:31)
--- NOTE | 2022-09-30 16:50 | RAD_ITS ---
STUDY: X-RAY - UNILATERAL RIBS ( LEFT ) WITH CHEST REASON FOR EXAM: Female, 57 years old. injury TECHNIQUE - RIBS: 4 view(s) of the ribs. TECHNIQUE - CHEST: PA COMPARISON: None. FINDINGS - RIBS: Normal visualized ribs without a demonstrated fracture. FINDINGS - CHEST: The lungs are clear and expanded. There is no demonstrated pleural abnormality. Normal size heart. Normal mediastinum and jojo. Normal visualized pulmonary arteries. Normal visualized aortic arch and descending thoracic aorta. Normal visualized thoracic spine. Normal visualized ribs, clavicles, and shoulders. Status post multilevel cervical fusion There is no demonstrated abnormality of the visualized soft tissue structures of the upper abdomen. RAD/Ribs Uni Min 3V w/PA Chest IMPRESSION: RIBS: Normal x-ray examination of the ribs. CHEST: No acute cardiopulmonary pathology. Electronically Signed: Franco Mobley MD at 17:10 EST ,
[2022-09-30 16:52] LABS: Absolute Lymphocyte Count 3.02 X10^3/uL (0.83-4.51); Absolute Neutrophil Count 6.1 X10^3/uL (2.0-7.7); Basophil# 0.07 X10^3/uL; Basophil% 0.7 % (0-1); Eosinophil# 0.08 X10^3/uL; Eosinophils% 0.8 % (0-5); Hematocrit 45.3 % (37-47); Hemoglobin 14.8 g/dL (12.0-15.0); Lymphocyte # 3.02 X10^3/ul (0.83-4.51); Lymphocyte % 29.9 % (19-41); Mean Corp Hgb Conc 32.7 g/dL (32-36); Mean Corpuscular Hgb 30.8 pg (27.0-32.0); Mean Corpuscular Volume 94.4 fL (81-99); Mean Platelet Vol. 9.4 fl (6.2-12.0); Monocyte# 0.79 X10^3/uL; Monocyte% 7.8 % (0-10); NRBC Flagged by Analyzer 0 % (0-5); Neutrophil # 6.09 X10^3/uL (2.7-7.7); Neutrophil % 60.4 % (47-70); POSITIVE COUNT YES; Platelet Count 389 K/mm3 (150-450); RBC Distribution Width CV 12.5 % (11.6-14.6); RBC Distribution Width SD 42.8 fl (35.1-43.9); White Blood Count 10.1 K/mm3 (4.4-11.0)
[2022-09-30 17:15] LABS: Anion Gap 14 (5-15); BUN 12 mg/dL (7-18); BUN/Creat Ratio 12.4 RATIO (10-20); Calcium,Total 10.3 mg/dL (8.5-10.1); Chloride 101 mmol/L (98-107); Creatinine, Serum 0.96 mg/dL (0.55-1.02); EST Glomerular Filtration Rate 64 mL/min (>60); Est Glom Filt Rate - Afr Amer 77 mL/min (>60); Estimated Creatinine Clearance 66.01 ml/min; Glucose 208 mg/dL (74-106); Potassium 4.1 mmol/L (3.5-5.1); Sodium Level 136 mmol/L (136-145)
[2022-09-30 18:08] VITALS: BP 123/65; PULSE 96; RESP 14; O2SAT 98
== END 2022-09-30 18:38 | disposition home or self-care (01) ==
PROVIDERS: Emergency Provider Emergency Medicine; Visit Provider Emergency Medicine
DX: R55 Syncope and collapse (principal); E11.9 Type 2 diabetes mellitus without complications; E86.0 Dehydration; S09.90XA Unspecified injury of head, initial encounter; S20.20XA Contusion of thorax, unspecified, initial encounter; I10 Essential (primary) hypertension; Z86.73 Personal history of transient ischemic attack (TIA), and cerebral infarction without residual deficits; Z79.899 Other long term (current) drug therapy; Z79.84 Long term (current) use of oral hypoglycemic drugs; X58.XXXA Exposure to other specified factors, initial encounter
CPT/HCPCS: 70450; 71101; 72125; 80048; 85025; 93005; 96361; 96374; 96375; 96376; 99284; J7030; A4216; J2405

== ENCOUNTER → 2022-10-10 | Outpatient (CLI) | payer MEDICAID, SELFPAY ==
--- NOTE | 2022-10-10 15:03 | BI_ITS ---
MAMMOGRAPHY - BILATERAL SCREENING REASON FOR EXAM: Female, 57 years old. Routine annual screening examination. PERTINENT HISTORY: Aunts with breast cancer. History of prior bilateral excisional breast biopsies. TECHNIQUE: Digital bilateral breast kari (3D mammographic acquisition) in the CC and MLO projections. 2-D mediolateral oblique (MLO) and craniocaudad (CC) views of both breasts were obtained. CAD: Full Field Digital Mammography with Computer Added Detection was performed. COMPARISON: Comparison is made with prior examination dated February 27, 2008. FINDINGS: Breast Composition: The breasts are heterogeneously dense, which may obscure small masses. There are no dominant masses or suspicious calcifications. Stable benign appearing left axillary lymph nodes nodes. A tissue marker is seen in the upper lateral aspect of the left breast. No other significant abnormalities are identified. There has been no significant change since the prior study. BI/SCRN MAMM (CAD)W/KARI BILAT IMPRESSION: Stable bilateral screening mammogram. Yearly follow-up mammogram recommended. (A) ASSESSMENT CATEGORY: BIRADS Category 2: Benign. A letter regarding these results will be sent to the patient by the facility within 30 days. Approximately 10% of breast cancers are not detected by mammography. A normal mammogram should not delay biopsy of a clinically suspicious abnormality. [id number] Electronically Signed: Tim Cadet MD at 8:36 EST ,
== END | disposition home or self-care (01) ==
LOC: OPBI 15:01
PROVIDERS: Referring Provider Registered Nurse; Visit Provider Registered Nurse
DX: Z12.31 Encounter for screening mammogram for malignant neoplasm of breast (principal)
CPT/HCPCS: 77063; 77067

== ENCOUNTER 2022-11-22 13:11 | Emergency (ER) | payer MEDICAID, SELFPAY ==
[2022-11-22 13:12] VITALS: BP 178/95; PULSE 95; RESP 20; TEMP 35.8; O2SAT 96; BMI 28.8
--- NOTE | 2022-11-22 13:31 | EX.ED.DYSGE1 ---
HPI History of Present Illness Chief Complaint: General Illness Narrative Narrative: 57-year-old female here for hypoglycemia. She reports feeling lightheaded, clammy and nauseous. She states symptoms started yesterday. She notes has been difficult to control her blood sugars. Her blood sugars go as high as the 300s and down to the 120s. She denies any syncope. She endorses symptoms have resolved slightly since onset. She denies any recent falls. Denies any focal numbness tingling, loss of sensation, slurred speech. Denies any head trauma. Denies any palpitations, chest pain or shortness of breath. Endorses recent illness. She states she has been having sinus congestion and green-yellow rhinorrhea for the last week. Denies any sore throat. Denies any cough. Denies any difficulty with urination. [facility] Medical History (Updated 11/22/22 @ 15:[address] Hawk Mejia, DO) Acute otitis externa of left ear Acute sinusitis, unspecified Arthritis Asthma Asthma Bronchitis Cardiology follow-up encounter Chest pain Contusion of right ankle Contusion of right foot Depressed Diabetes Diabetes mellitus type II, controlled Difficulty swallowing Dyspnea on exertion Easy bruising Episode of syncope Essential hypertension SACHA (generalized anxiety disorder) Gastric reflux GERD (gastroesophageal reflux disease) GI bleed Hemorrhoids High cholesterol History of colon polyps History of echocardiogram History of stress test Hyperlipidemia Injury of head and neck Marijuana use Nausea & vomiting Near syncope Non-smoker Orthostatic hypotension Pneumonia Positive PPD, treated PTSD (post-traumatic stress disorder) Restless legs RSD (reflex sympathetic dystrophy) Shoulder pain Statin intolerance Strain of right hip Strain of unspecified muscle, fascia and tendon at shoulder and upper arm level, right arm, initial encounter TIA (transient ischemic attack) Urinary tract infection with hematuria Wears glasses Home Medications albuterol sulfate 90 mcg/actuation aerosol inhaler 2 puff inhalation Q4H PRN PRN sob 03/04/14 [History Last Taken 08/15/19] omeprazole 20 mg capsule,delayed release 20 mg PO DAILY GERD 01/04/20 [History Last Taken Unknown] ondansetron 4 mg disintegrating tablet 8 mg PO Q8H PRN PRN Nausea #20 tabs 10/05/20 [Rx Last Taken Unknown] ezetimibe 10 mg tablet 10 mg PO DAILY CHOLESTEROL #90 tabs 04/19/21 [Rx Last Taken Unknown] glimepiride 4 mg tablet 4 mg PO DAILY #30 tabs 08/23/21 [Rx Last Taken Unknown] diphenhydramine HCl 25 mg capsule 25 mg PO DAILY PRN allergy symptoms 03/28/22 [History Last Taken Unknown] cholecalciferol (vitamin D3) 50 mcg (2,000 unit) capsule (Vitamin D3) 50 mcg PO DAILY 04/04/22 [History Last Taken Unknown] lorazepam 1 mg tablet 0.5 mg PO TID PRN PRN Anxiety #30 tabs 05/27/22 [Rx Last Taken Unknown] triamcinolone acetonide 0.1 % topical cream 1 applic topical BID #30 grams 05/27/22 [Rx Last Taken Unknown] lisinopril 20 mg-hydrochlorothiazide 25 mg tablet 1 tab PO QHS BP #90 tabs 06/29/22 [Rx Last Taken Unknown] calcium carbonate 333 mg-magnesium oxide 133 mg-zinc gluc 5 mg tablet 3 tab PO DAILY 07/22/22 [History Last Taken Unknown] celecoxib 200 mg capsule 200 mg PO DAILY PRN pain #30 caps 08/16/22 [Rx Last Taken Unknown] oxycodone-acetaminophen 5 mg-325 mg tablet (Percocet) 1 tab PO Q6H PRN pain 3 days #10 tabs 08/17/22 [Rx Last Taken Unknown] ondansetron 4 mg disintegrating tablet 4 mg PO Q6H PRN nausea and vomiting #10 tabs 08/21/22 [Rx Last Taken Unknown] cyclobenzaprine 10 mg tablet 10 mg PO TID PRN Muscle Spasm #20 TABLETS 09/30/22 [Rx Last Taken Unknown] ondansetron 4 mg disintegrating tablet 4 mg PO Q8H PRN PRN Nausea #10 tabs 09/30/22 [Rx Last Taken Unknown] tizanidine 2 mg tablet 2 mg PO Q12H PRN PRN neck pain 09/30/22 [History Last Taken Unknown] dulaglutide 0.75 mg/0.5 mL subcutaneous pen injector (Trulicity) 0.5 ml subcut DAILY 10/15/22 [History Last Taken Unknown] duloxetine 60 mg capsule,delayed release 120 mg PO DAILY ANXIETY 30 days #60 caps 10/15/22 [Rx Last Taken Unknown] doxycycline hyclate 100 mg capsule 100 mg PO BID 7 days #14 caps 11/22/22 [Rx Last Taken Unknown] ondansetron 4 mg disintegrating tablet 4 mg PO Q8H PRN PRN Nausea #10 tabs 11/22/22 [Rx Last Taken Unknown] Allergy/AdvReac Type Severity Reaction Status Date / Time adalimumab [From Humira] Allergy Unknown Verified 11/22/22 13:14 amoxicillin trihydrate Allergy Unknown Verified 11/22/22 13:14 [From Augmentin] codeine Allergy Itching Verified 11/22/22 13:14 etanercept [From Enbrel] Allergy Unknown Verified 11/22/22 13:14 leflunomide [From Arava] Allergy Other Verified 11/22/22 13:14 metoprolol tartrate Allergy Unknown Verified 11/22/22 13:14 [From Lopressor] morphine sulfate Allergy Unknown Verified 11/22/22 13:14 [From Embeda] naltrexone HCl [From Embeda] Allergy Unknown Verified 11/22/22 13:14 oxymorphone [Oxymorphone] Allergy Unknown Verified 11/22/22 13:14 pioglitazone HCl [From Actos] Allergy Other Verified 11/22/22 13:14 pneumococcal 23-valent Allergy Unknown Verified 11/22/22 13:14 polysacchari [From Pneumovax 23] potassium clavulanate Allergy Unknown Verified 11/22/22 13:14 [From Augmentin] Xiusrht-TUI-LqO Reductase Allergy Unknown Verified 11/22/22 13:14 Inhibitor [Qjbdbpa-Lug-Ixo Reductase Inhibitor] Sulfa (Sulfonamide Allergy Anaphylaxis Verified 11/22/22 13:14 Antibiotics) sulfamethoxazole Allergy Anaphylaxis Verified 11/22/22 13:14 [From Bactrim] telithromycin [From Ketek] Allergy Unknown Verified 11/22/22 13:14 tramadol HCl [From Ultram] Allergy Unknown Verified 11/22/22 13:14 trimethoprim [From Bactrim] Allergy Anaphylaxis Verified 11/22/22 13:14 Family History Father Diabetes Hypertension Mother Diabetes Hypertension Colon polyp Other Cancer Surgical History History of appendectomy History of arthroscopy of right knee History of colonoscopy History of hysterectomy Hx of shoulder surgery Social History household members: none Smoking Status: Never smoker alcohol intake: current alcohol intake frequency: 0-2 drinks per day Alcohol type: hard liquor substance use type: other details: Gummies ROS ROS ED ROS Narrative Constitutional: Denies fever HEENT: Denies sore throat, congestion, green-yellow rhinorrhea Neck: Denies neck pain Cardiovascular: Denies chest pain, syncope, endorses lightheadedness Respiratory: Denies shortness of breath GI: Endorses nausea : Denies changes in urinary habits Musculoskeletal: Denies muscle or joint pain Neurologic: Denies numbness weakness or loss of sensation Skin denies rash EXAM Physical Exam Narrative Exam Narrative: Nursing triage notes reviewed, Vital signs reviewed Constitutional: please see mdm HENT: MMM, no sinus tenderness, no purulent rhinorrhea noted Eyes: Pupils equal round and reactive to light, Extraocular muscles intact Neck: No stridor, no JVD, full neck ROM Lungs: Clear to auscultation, No wheezing or rales. No increased work of breathing, no conversational dyspnea, no accessory muscle use, no nasal flaring. No respiratory distress noted Heart: Regular rate and rhythm, No murmurs, No rubs and No gallops, 2+ distal pulses (radial, femoral, posterior tibial) in all extremities Abdomen: Soft, there is no tenderness, rigidity, rebound or guarding, no obvious peritoneal signs, no palpable pulsatile abdominal masses, no auscultated abdominal bruit : No CVAT Extremities: No edema Neuro: Alert and oriented x3, neuro exam at baseline, cranial nerves II through XII are intact. No pain with extraocular muscle movement. There is negative test of skew. Normal speech. 5 of 5 strength in upper and lower extremities in flexion extension. Intact sensation to light touch in upper and lower extremity dermatomes. No truncal or extremity ataxia. No dysdiadochokinesia. Normal gait. 2+ reflexes. No meningeal signs. Negative Babinski. NIH of 0 Skin: No rash or lesions noted Const Vital Signs: 11/22/22 13:12 11/22/22 13:42 Temperature 96.5 F L Temperature Source Temporal Pulse Rate 95 Respiratory Rate 20 H Respiratory Effort Normal Non-Labored Respiratory Pattern Normal Blood Pressure 178/95 H Blood Pressure Mean 122 Pulse Ox 96 Oxygen Delivery Method Room Air MDM MDM MDM Narrative Medical decision making narrative: Chief Complaint: Nausea, lightheadedness, concern for hypoglycemia External records reviewed: CT scan from 2021 shows no acute process MDM: I considered the following differential diagnosis: Patient was hemodynamically stable although hypertensive, afebrile, nontoxic-appearing. No cranial nerve deficits to suggest cavernous sinus thrombosis. Arrhythmia, ACS, anemia, electrolyte abnormalities, hypoglycemia, infection I obtained a broad lab and imaging work-up to further elucidate etiology of the patient's complaints. Labs and images were remarkable for negative lactate, negative anion gap, no leukocytosis to suggest severe infection or sepsis. No signs of hypoglycemia, dehydration, myocardial ischemia, anemia. No clear etiology could be explained. Given patient's complaint of sinus congestion for 1 week, history of diabetes and relative immunocompromise I will prophylactically treat her with antibiotics. Discussed plan, return precaution with patient. She agreed with plan return precautions. There is no obvious life or limb threatening findings. Patient is appropriate discharge home Factors affecting care: History of diabetes, hyperlipidemia Social determinants of health: Occasional alcohol use History obtained from others: Shared decision making: I will have a discussion with the patient and or visitors regarding risk/benefits of further testing or admission. They will be made aware of of the risk/benefits inherent in this decision they will be given the opportunity to voice understanding. Consults: None Lab Data Attestation: I reviewed the patient's lab results. Lab results narrative: EKG with normal sinus rhythm, normal axis, intervals, no STEMI CBC without leukocytosis, severe anemia, no thrombocytopenia. BMP without evidence of significant electrolyte abnormalities, no anion gap, no acute kidney injury. Lactate is wnl indicating no end-organ hypoperfusion and/or hypoxia. LFTs show no evidence of hepatobiliary pathology. Labs: Laboratory Results - last 24 hr 11/22/22 11/22/22 11/22/22 14:16 14:16 14:16 WBC 9.4 RBC 4.24 Hgb 13.1 Hct 41.6 MCV 98.1 MCH 30.9 MCHC 31.5 L RDW Std Deviation 51.0 H RDW Coeff of Daiana 14.3 Plt Count 367 MPV 8.7 Immature Gran % (Auto) 0.400 Neut % (Auto) 48.7 Lymph % (Auto) 37.1 [place]orne % (Auto) 9.5 Eos % (Auto) 3.6 Baso % (Auto) 0.7 Absolute Neuts (auto) 4.6 Absolute Lymphs (auto) 3.48 Nucleated RBC % 0 Sodium 138 Potassium 3.7 Chloride 108 H Carbon Dioxide 25.0 Anion Gap 5 BUN 10 Creatinine 0.91 Estim Creat Clear Calc 69.63 Est GFR (MDRD) Af Amer 82 Est GFR (MDRD) Non-Af 68 BUN/Creatinine Ratio 11.0 Glucose 114 H Lactic Acid 1.9 Calcium 9.2 Total Bilirubin 0.30 AST 36 ALT 40 Alkaline Phosphatase 107 Troponin I High Sens 3 Total Protein 6.9 Albumin 3.4 Globulin 3.5 Albumin/Globulin Ratio 1.0 Radiography Diagnostic Testing: Clinical Impression(s) from Imaging Studies Chest X-Ray 11/22/22 14:15 IMPRESSION: Normal x-ray examination of the chest. Electronically Signed: Tim Cadet MD at 14:49 EDT , I have personally reviewed the patient's chest x-ray. Chest x-ray is unremarkable for pulmonary edema, pneumothorax, pneumonia or focal cardiopulmonary abnormality. Discharge Plan Triage Chief Complaint: General Illness ED Provider: Hawk Mejia Dx/Rx/DC Orders Clinical Impression: Acute sinus infection, Acute hyperglycemia, History of diabetes mellitus, type II Instructions: ED Sinusitis (Antibiotic Treatment) Prescriptions: New doxycycline hyclate 100 mg capsule 100 mg PO BID 7 Days Qty: 14 0RF ondansetron 4 mg tablet,disintegrating 4 mg PO Q8H PRN PRN (Reason: Nausea) Qty: 10 0RF No Action lorazepam 1 mg tablet 0.5 mg PO TID PRN PRN (Reason: Anxiety) Qty: 30 0RF triamcinolone acetonide 0.1 % cream 1 applic topical BID Qty: 30 0RF Rx Instructions: Apply to affected area on left upper shoulder, twice daily x10 days then stop. Trulicity 0.75 mg/0.5 mL pen injector 0.5 ml subcut DAILY duloxetine 60 mg capsule,delayed release(DR/EC) 120 mg PO DAILY 30 Days Qty: 60 2RF albuterol sulfate 1 PUFF inhaler 2 puff INHALATION Q4H PRN PRN (Reason: sob) omeprazole 20 mg capsule,delayed release(DR/EC) 20 mg PO DAILY Label Comments: gastric reflux diphenhydramine HCl 25 mg capsule 25 mg PO DAILY PRN (Reason: allergy symptoms) ondansetron 4 MG tablet 8 mg PO Q8H PRN PRN (Reason: Nausea) Qty: 20 0RF glimepiride 4 mg tablet 4 mg PO DAILY Qty: 30 0RF cholecalciferol (vitamin D3) [Vitamin D3] 50 mcg (2,000 unit) Capsule 50 mcg PO DAILY calcium carb-mag ox-zinc gluc 333-133-5 mg Tablet 3 tab PO DAILY oxycodone-acetaminophen [Percocet] 5-325 mg tablet 1 tab PO Q6H PRN (Reason: pain) 3 Days Qty: 10 0RF Rx Instructions: May take with Benadryl to avoid itching. ondansetron 4 mg tablet,disintegrating 4 mg PO Q6H PRN (Reason: nausea and vomiting) Qty: 10 0RF tizanidine 2 mg tablet 2 mg PO Q12H PRN PRN (Reason: neck pain) cyclobenzaprine 10 mg tablet 10 mg PO TID PRN (Reason: Muscle Spasm) Qty: 20 0RF ondansetron [ondansetron] 4 mg tablet,disintegrating 4 mg PO Q8H PRN PRN (Reason: Nausea) Qty: 10 0RF ezetimibe 10 mg tablet 10 mg PO DAILY Qty: 90 3RF lisinopril-hydrochlorothiazide 20-25 mg tablet 1 tab PO QHS Qty: 90 3RF celecoxib 200 mg capsule 200 mg PO DAILY PRN (Reason: pain) Qty: 30 0RF Primary Care Provider: Chantale Palm Referrals: Chantale Palm [Primary Care Provider] -
--- NOTE | 2022-11-22 14:05 | EKG12_ITS ---
Test Reason : Blood Pressure : / mmHG Vent. Rate : 083 BPM Atrial Rate : 083 BPM P-R Int : 142 ms QRS Dur : 084 ms QT Int : 386 ms P-R-T Axes : 038 021 027 degrees QTc Int : 453 ms Normal sinus rhythm Normal ECG When compared with ECG of 30-SEP-2022 15:23, No significant change was found Confirmed by DARIUSZ MURILLO, FELICIA ([id number]), news copy editor [employer] ([id number]) on 11/26/2022 10:44:41 AM Referred By: Hawk Mejia Confirmed By:FELICIA ARZOLA MD
--- NOTE | 2022-11-22 14:15 | RAD_ITS ---
STUDY: X-RAY CHEST REASON FOR EXAM: Female, 57 years old. CP TECHNIQUE: Single AP portable view of the chest. COMPARISON: Comparison is made with prior study of September 30, 2022. FINDINGS: The lungs are clear and expanded. There is no demonstrated pleural abnormality. Normal size heart. Normal mediastinum and jojo. Normal visualized pulmonary arteries. Normal visualized aortic arch and descending thoracic aorta. Normal visualized thoracic spine. There is evidence of fusion in the lower cervical spine. There is no demonstrated abnormality of the visualized soft tissue structures of the upper abdomen. RAD/Chest 1 View (Portable) IMPRESSION: Normal x-ray examination of the chest. Electronically Signed: Tim Cadet MD at 14:49 EDT ,
[2022-11-22] MEDS: 0.9% Normal Saline 1,000 ML 1000 ML IV (14:18)
[2022-11-22 14:25] LABS: Absolute Lymphocyte Count 3.48 X10^3/uL (0.83-4.51); Absolute Neutrophil Count 4.6 X10^3/uL (2.0-7.7); Basophil# 0.07 X10^3/uL; Basophil% 0.7 % (0-1); Eosinophil# 0.34 X10^3/uL; Eosinophils% 3.6 % (0-5); Hematocrit 41.6 % (37-47); Hemoglobin 13.1 g/dL (12.0-15.0); Lymphocyte # 3.48 X10^3/ul (0.83-4.51); Lymphocyte % 37.1 % (19-41); Mean Corp Hgb Conc 31.5 g/dL (32-36); Mean Corpuscular Hgb 30.9 pg (27.0-32.0); Mean Corpuscular Volume 98.1 fL (81-99); Mean Platelet Vol. 8.7 fl (6.2-12.0); Monocyte# 0.89 X10^3/uL; Monocyte% 9.5 % (0-10); NRBC Flagged by Analyzer 0 % (0-5); Neutrophil # 4.56 X10^3/uL (2.7-7.7); Neutrophil % 48.7 % (47-70); Platelet Count 367 K/mm3 (150-450); RBC Distribution Width CV 14.3 % (11.6-14.6); Red Blood Count 4.24 M/mm3 (4.2-5.4); White Blood Count 9.4 K/mm3 (4.4-11.0)
[2022-11-22 14:42] LABS: AST(SGOT) 36 U/L (15-37); Alanine Aminotransfer ALT/SGPT 40 U/L (13-56); Albumin, Serum 3.4 g/dL (3.2-5.0); Alkaline Phosphatase 107 U/L (45-117); Anion Gap 5 (5-15); BUN 10 mg/dL (7-18); Calcium,Total 9.2 mg/dL (8.5-10.1); Chloride 108 mmol/L (98-107); Creatinine, Serum 0.91 mg/dL (0.55-1.02); EST Glomerular Filtration Rate 68 mL/min (>60); Est Glom Filt Rate - Afr Amer 82 mL/min (>60); Estimated Creatinine Clearance 69.63 ml/min; Globulin 3.5 g/dL (2.2-4.2); Glucose 114 mg/dL (74-106); Potassium 3.7 mmol/L (3.5-5.1); Protein, Total 6.9 g/dL (6.4-8.2); Sodium Level 138 mmol/L (136-145); Troponin-I HS 3 pg/mL (3.0-54.0)
[2022-11-22 14:52] LABS: Lactic Acid 1.9 mmol/L (0.4-1.9)
[2022-11-22 15:13] LABS: Bacteria 0 SEEN /hpf (None Seen); Mucous, Urine 0 SEEN /hpf (<or=2+); Red Blood Cells-Urine 0 SEEN /hpf (0-5); Squamous Epithelial Cells - UA 0 SEEN /hpf (5-10)
[2022-11-22] MEDS: Acetaminophen 500 MG Tablet 1000 MG PO (15:37)
[2022-11-22] MEDS: Ondansetron 4 MG/2 ML Vial IV (15:37)
[2022-11-22 15:39] LABS: Color, Urine Yellow (Yellow); Glucose, Dipstick 1000 mg/dl (Normal); Ketone-Dipstick Negative (Negative); Leukocyte Esterase-Dipstick 100 /ul (Negative); Nitrite-Dipstick Negative (Negative); Occult Blood-Urine Negative /ul (Negative); Protein-Dipstick 30 mg/dl (Negative); Urine Bilirubin Dipstick Negative (Negative); Urine Clarity Clear (Clear); Urine Urobilinogen Normal (Normal); Urine pH 6.5 (5.0 - 8.0)
[2022-11-22 15:59] VITALS: PULSE 81; RESP 16; O2SAT 99
[2022-11-22 16:06] LABS: White Blood Cells 0-5 SEEN /hpf (0-5)
== END 2022-11-22 16:00 | disposition home or self-care (01) ==
PROVIDERS: Emergency Provider Emergency Medicine; Referring Provider Emergency Medicine; Visit Provider Emergency Medicine
DX: J01.90 Acute sinusitis, unspecified (principal); E11.65 Type 2 diabetes mellitus with hyperglycemia; Z86.73 Personal history of transient ischemic attack (TIA), and cerebral infarction without residual deficits
CPT/HCPCS: 71045; 80048; 80053; 81001; 83605; 84484; 85025; 93005; 96361; 96374; 99285; A4216; J2405

== ENCOUNTER 2022-11-29 07:50 | Day surgery (SDC) | payer MEDICAID, SELFPAY ==
[2022-11-29 07:51] VITALS: BP 178/104; PULSE 108; RESP 14; TEMP 36.5; O2SAT 99; BMI 28.8
--- NOTE | 2022-11-29 07:58 | EKG12_ITS ---
Test Reason : CP Blood Pressure : / mmHG Vent. Rate : 088 BPM Atrial Rate : 088 BPM P-R Int : 140 ms QRS Dur : 076 ms QT Int : 396 ms P-R-T Axes : 034 045 054 degrees QTc Int : 479 ms Normal sinus rhythm Normal ECG Confirmed by FAVIO MURILLO, GIANA ([id number]), technical editor [employer] ([id number]) on 12/02/2022 11:23:56 AM Referred By: Hawk Mejia Confirmed By:BOBBI STAHL MD
--- NOTE | 2022-11-29 08:09 | RAD_ITS ---
STUDY: X-RAY CHEST REASON FOR EXAM: Female, 57 years old. 2 day history of intermittent chest pain. TECHNIQUE: Single AP portable view of the chest. COMPARISON: Comparison is made with prior study dated November 22, 2022. FINDINGS: EKG electrodes are seen. The lungs are clear and expanded. There is no demonstrated pleural abnormality. Normal size heart. Normal mediastinum and jojo. Normal visualized pulmonary arteries. Normal visualized aortic arch and descending thoracic aorta. Normal visualized thoracic spine. The patient is status post fusion of the lower cervical spine. There is no demonstrated abnormality of the visualized soft tissue structures of the upper abdomen. RAD/Chest 1 View (Portable) IMPRESSION: Normal x-ray examination of the chest. Electronically Signed: Tim Cadet MD at 8:55 EDT ,
--- NOTE | 2022-11-29 08:17 | EKG12_ITS ---
Test Reason : REPEAT Blood Pressure : / mmHG Vent. Rate : 084 BPM Atrial Rate : 084 BPM P-R Int : 150 ms QRS Dur : 078 ms QT Int : 388 ms P-R-T Axes : 031 034 030 degrees QTc Int : 458 ms Normal sinus rhythm Normal ECG Confirmed by FAVIO MURILLO, GIANA ([id number]), editor school photograph [employer] ([id number]) on 12/02/2022 11:24:26 AM Referred By: TOMASZ Confirmed By:BOBBI STAHL MD
[2022-11-29 08:22] LABS: Absolute Lymphocyte Count 2.02 X10^3/uL (0.83-4.51); Absolute Neutrophil Count 2.1 X10^3/uL (2.0-7.7); Basophil# 0.04 X10^3/uL; Basophil% 0.8 % (0-1); Eosinophil# 0.28 X10^3/uL; Eosinophils% 5.7 % (0-5); Hematocrit 40.9 % (37-47); Hemoglobin 13.5 g/dL (12.0-15.0); Lymphocyte # 2.02 X10^3/ul (0.83-4.51); Lymphocyte % 40.8 % (19-41); Mean Corpuscular Hgb 31.7 pg (27.0-32.0); Mean Platelet Vol. 8.8 fl (6.2-12.0); Monocyte% 10.1 % (0-10); NRBC Flagged by Analyzer 0 % (0-5); Neutrophil % 42.4 % (47-70); Platelet Count 317 K/mm3 (150-450); RBC Distribution Width CV 14.1 % (11.6-14.6); RBC Distribution Width SD 49.3 fl (35.1-43.9); Red Blood Count 4.26 M/mm3 (4.2-5.4)
[2022-11-29 08:38] LABS: Anion Gap 4 (5-15); BUN 17 mg/dL (7-18); BUN/Creat Ratio 24.7 RATIO (10-20); Calcium,Total 9.2 mg/dL (8.5-10.1); Chloride 111 mmol/L (98-107); Creatinine, Serum 0.69 mg/dL (0.55-1.02); EST Glomerular Filtration Rate 94 mL/min (>60); Est Glom Filt Rate - Afr Amer 113 mL/min (>60); Estimated Creatinine Clearance 91.84 ml/min; Glucose 193 mg/dL (74-106); Potassium 3.6 mmol/L (3.5-5.1); Sodium Level 140 mmol/L (136-145); Troponin-I HS (w/2H Reflex) 3 pg/mL (3.0-54.0)
--- NOTE | 2022-11-29 08:52 | ED.VIS.CHEST ---
HPI History of Present Illness Chief Complaint: Chest Pain Detail of Chief Complaint: Chest pressure Informant: patient Onset/Context/Timing Onset: - (Episode on Friday that lasted 3 hours, several episodes on and awoke from sleep at 0600) Activity at onset: sudden, sleep, rest and light activity Timing: Intermittent Quality: Positive for - (Small elephant sitting on my chest) Location: Substernal Current Severity: Gone Maximum Severity: Severe Worsened By: Exertion (Chest pressure is worse with walking) Relieved By: Nothing Associated Symptoms: Positive for Nausea, Diaphoresis and Dyspnea; Negative for Cough, Fever, Lightheadedness, Acid Reflux or Palpitations Narrative Narrative: Patient is a 57-year-old woman with history of diabetes, hypercholesterolemia and hypertension who presents because of a small elephant sitting on her chest that occurred while shopping on Friday. Duration 3 hours. She had radiation to the left side of her jaw associated with nausea, dyspnea and diaphoresis. she reports several episodes. She had radiation to her jaw on the left side and left shoulder and arm. These were associated with nausea shortness of breath and diaphoresis. The duration was not as long. This morning she was awakened from sleep at 0600 with chest heaviness dyspnea diaphoresis radiation to her left jaw. She has no known history of coronary disease. She denies history of smoking She does have history of reflux. She states this pain is different. She denies history of hiatal hernia or peptic ulcer disease. Denies black or maroon-colored stool. She denies history of VTE. She denies leg pain, swelling discoloration. She denies orthopnea or PND. Prior Similar Symptoms: No Recent Illness/Hospitalization: No CVD Risk Factors: Positive for Hypertension, Diabetes and Hypercholesterolemia PE Risk Factors: Negative for Recent Travel/Surgery, Recent Immobilization, Prior DVT or PE or OCP + Smoking + >/=35 TAD Risk Factors: Positive for Hypertension; Negative for Marfan's Syndrome or Family History [facility] Medical History Acute otitis externa of left ear Acute sinusitis, unspecified Arthritis Asthma Asthma Bronchitis Cardiology follow-up encounter Chest pain Contusion of right ankle Contusion of right foot Depressed Diabetes Diabetes mellitus type II, controlled Difficulty swallowing Dyspnea on exertion Easy bruising Episode of syncope Essential hypertension SACHA (generalized anxiety disorder) Gastric reflux GERD (gastroesophageal reflux disease) GI bleed Hemorrhoids High cholesterol History of colon polyps History of echocardiogram History of stress test Hyperlipidemia Injury of head and neck Marijuana use Nausea & vomiting Near syncope Non-smoker Orthostatic hypotension Pneumonia Positive PPD, treated PTSD (post-traumatic stress disorder) Restless legs RSD (reflex sympathetic dystrophy) Shoulder pain Statin intolerance Strain of right hip Strain of unspecified muscle, fascia and tendon at shoulder and upper arm level, right arm, initial encounter TIA (transient ischemic attack) Urinary tract infection with hematuria Wears glasses Home Medications albuterol sulfate 90 mcg/actuation aerosol inhaler 2 puff inhalation Q4H PRN PRN sob 03/04/14 [History Last Taken 08/15/19] omeprazole 20 mg capsule,delayed release 20 mg PO DAILY GERD 01/04/20 [History Last Taken Unknown] ezetimibe 10 mg tablet 10 mg PO DAILY CHOLESTEROL #90 tabs 04/19/21 [Rx Last Taken Unknown] diphenhydramine HCl 25 mg capsule 25 mg PO DAILY PRN allergy symptoms 03/28/22 [History Last Taken Unknown] lorazepam 1 mg tablet 0.5 mg PO TID PRN PRN Anxiety #30 tabs 05/27/22 [Rx Last Taken Unknown] triamcinolone acetonide 0.1 % topical cream 1 applic topical BID #30 grams 05/27/22 [Rx Last Taken Unknown] ondansetron 4 mg disintegrating tablet 4 mg PO Q6H PRN nausea and vomiting #10 tabs 08/21/22 [Rx Last Taken Unknown] cyclobenzaprine 10 mg tablet 10 mg PO TID PRN Muscle Spasm #20 TABLETS 09/30/22 [Rx Last Taken Unknown] duloxetine 60 mg capsule,delayed release 120 mg PO DAILY ANXIETY 30 days #60 caps 10/15/22 [Rx Last Taken Unknown] doxycycline hyclate 100 mg capsule 100 mg PO BID 7 days #14 caps 11/22/22 [Rx Last Taken Unknown] empagliflozin 25 mg tablet (Jardiance) 25 mg PO DAILY #90 tabs 11/27/22 [Rx Last Taken Unknown] glimepiride 2 mg tablet 2 mg PO DAILY #90 tabs 11/27/22 [Rx Last Taken Unknown] Allergy/AdvReac Type Severity Reaction Status Date / Time adalimumab [From Humira] Allergy Unknown Verified 11/29/22 07:53 amoxicillin trihydrate Allergy Unknown Verified 11/29/22 07:53 [From Augmentin] codeine Allergy Itching Verified 11/29/22 07:53 etanercept [From Enbrel] Allergy Unknown Verified 11/29/22 07:53 leflunomide [From Arava] Allergy Other Verified 11/29/22 07:53 metoprolol tartrate Allergy Unknown Verified 11/29/22 07:53 [From Lopressor] morphine sulfate Allergy Unknown Verified 11/29/22 07:53 [From Embeda] naltrexone HCl [From Embeda] Allergy Unknown Verified 11/29/22 07:53 oxymorphone [Oxymorphone] Allergy Unknown Verified 11/29/22 07:53 pioglitazone HCl [From Actos] Allergy Other Verified 11/29/22 07:53 pneumococcal 23-valent Allergy Unknown Verified 11/29/22 07:53 polysacchari [From Pneumovax ] potassium clavulanate Allergy Unknown Verified 11/29/22 07:53 [From Augmentin] Ijfcbdx-YAS-GwL Reductase Allergy Unknown Verified 11/29/22 07:53 Inhibitor [[place]-Fba-Beb Reductase Inhibitor] Sulfa (Sulfonamide Allergy Anaphylaxis Verified 11/29/22 07:53 Antibiotics) sulfamethoxazole Allergy Anaphylaxis Verified 11/29/22 07:53 [From Bactrim] telithromycin [From Ketek] Allergy Unknown Verified 11/29/22 07:53 tramadol HCl [From Ultram] Allergy Unknown Verified 11/29/22 07:53 trimethoprim [From Bactrim] Allergy Anaphylaxis Verified 11/29/22 07:53 Family History Father Diabetes Hypertension Mother Diabetes Hypertension Colon polyp Other Cancer Surgical History History of appendectomy History of arthroscopy of right knee History of colonoscopy History of hysterectomy Hx of shoulder surgery Social History household members: none Smoking Status: Never smoker alcohol intake: current alcohol intake frequency: 0-2 drinks per day Alcohol type: hard liquor substance use type: other details: Gummies ROS ROS ED Constitutional Constitutional ED: Denies chills, fever(s), subjective or sweats Eyes Eyes: Reports none ENT ENT ED: Denies ear pain, rhinorrhea or sore throat Cardiovascular Cardiovascular: Reports as per HPI; Denies orthopnea or paroxysmal nocturnal dyspnea Respiratory/Chest Respiratory/Chest: Reports dyspnea and dyspnea on exertion; Denies cough, orthopnea or paroxysmal nocturnal dyspnea Gastrointestinal Gastrointestinal: Denies abdominal pain, constipation, diarrhea, melena, nausea or vomiting Genitourinary Genitourinary ED: Denies dysuria, hematuria or urinary frequency Musculoskeletal Musculoskeletal: Denies arthralgias, back pain or myalgias Integumentary Denies abscess, Abrasions or rash Neurologic Neurologic: Denies paresthesias or weakness Psychiatric Psychiatric: Denies anxiety or depression Endocrine Endocrinology: Denies cold intolerance or heat intolerance Hematologic/Lymphatic Hematologic/Lymphatic: Denies easy bleeding or easy bruising EXAM Physical Exam Const Vital Signs: 11/29/22 07:51 11/29/22 07:58 11/29/22 08:14 Temperature 97.7 F L Temperature Source Temporal Pulse Rate 108 H Respiratory Rate 14 Respiratory Effort Short of Breath Blood Pressure 178/104 H Blood Pressure Mean 128 Pulse Ox 99 Oxygen Delivery Method Room Air Room Air 11/29/22 09:07 11/29/22 09:40 Temperature 97.7 F L Temperature Source Temporal Pulse Rate 89 89 Respiratory Rate 12 12 Respiratory Effort Blood Pressure 165/103 H 165/103 H Blood Pressure Mean 123 123 Pulse Ox 96 96 Oxygen Delivery Method Room Air Room Air Positive well nourished, well developed and obese General Appearance ED: well developed and NAD Nutritional Appearance: obese HEENT Reports moist mucous membranes HEENT Narrative: Posterior pharynx unremarkable. Neck patent. normocephalic and atraumatic Eyes PERRL and EOMs intact bilaterally General Eye ED: Negative for pale conjunctiva or scleral icterus Neck no lymphadenopathy, supple and no JVD Chest Wall inspection of chest normal and palpation of chest normal Resp normal respiratory effort and clear to auscultation bilaterally Cardio regular rate, regular rhythm, S1 normal heart sound, S2 normal heart sound and no murmurs GI normal to inspection, nondistended, normoactive bowel sounds, soft to palpation, non-tender, non-distended and no masses; Negative for hepatosplenomegaly Back/Spine no CVA tenderness and no thoracic nor lumbar tenderness Extremity normal to inspection General Extremety ED: Negative for edema or pulses abnormal General Extremity: Negative for edema or pulses abnormal Neuro oriented x3, CN's II-XII intact bilaterally and no sensory deficits noted Sensorium / Orientation: awake Psych mental status grossly normal Skin no rashes or lesions noted and no wounds Heart Score History: Highly Suspicious ECG: Normal Age: >45 - <65 years Risk Factors: >/= 3 Risk Factors or History of CAD Troponin: </= Normal Limit Score: 5 MDM MDM MDM Narrative Medical decision making narrative: Presents with concerning story for unstable angina. Cardiac work-up was undertaken. This included EKG, chest x-ray, appropriate blood work. Patient had recurrent episodes of chest pain. A second and third EKG were obtained. Presently patient is having no pain. She was treated with aspirin. EKG #1 timed at 0758 is normal. Rate is 88. ID interval is 140 ms per cures duration 76 ms QT durations are 9696 ms. QT duration is 396 ms. [place] is normal. EKG #2 performed at 0817 is normal and unchanged from first. 3. EKG #3 is normal with a rate of 84 and unchanged from prior 2. There was an error in presentation to manager advanced regarding patient's troponin level. Wildlife Ecologist was contacted and informed of this. Patient was also informed that her initial troponin was normal and not elevated. Because of her heart score 5 and multiple risk factors with a highly suspicious history plan is to take patient to [facility]. I was contacted by Dr. Collado as that patient will be admitted if cath was remarkable otherwise would be discharged. Lab Data Attestation: I reviewed the patient's lab results. Lab results narrative: CBC is unremarkable. BMP is remarkable glucose of 193. First troponin is normal at 3. Labs: Laboratory Results - last 24 hr 11/29/22 11/29/22 11/29/22 08:10 08:10 09:15 WBC 5.0 RBC 4.26 Hgb 13.5 Hct 40.9 MCV 96.0 MCH 31.7 MCHC 33.0 RDW Std Deviation 49.3 H RDW Coeff of Daiana 14.1 Plt Count 317 MPV 8.8 Immature Gran % (Auto) 0.200 Neut % (Auto) 42.4 L Lymph % (Auto) 40.8 [place] % (Auto) 10.1 H Eos % (Auto) 5.7 H Baso % (Auto) 0.8 Absolute Neuts (auto) 2.1 Absolute Lymphs (auto) 2.02 Nucleated RBC % 0 PT 12.4 INR 0.9 APTT 24.9 Sodium 140 Potassium 3.6 Chloride 111 H Carbon Dioxide 25.0 Anion Gap 4 L BUN 17 Creatinine 0.69 Estim Creat Clear Calc 91.84 Est GFR (MDRD) Af Amer 113 Est GFR (MDRD) Non-Af 94 BUN/Creatinine Ratio 24.7 H Glucose 193 H Calcium 9.2 Troponin I High Sens 3 Radiography Chest X-Ray - ED: 1 View and Read by ED Physician (Portable chest x-ray reveals no abnormality. Cardiac silhouette and size normal. Perihilar region normal. Lung parenchyma normal. [place] structures are normal.) Diagnostic Testing: Clinical Impression(s) from Imaging Studies Chest X-Ray 11/29/22 08:09 IMPRESSION: Normal x-ray examination of the chest. Electronically Signed: Tim Cadet MD at 8:55 EDT , Management Discussion w/another healthcare provider: Hospitalist (Plan is to take patient directly from ER to [facility].) and Patient Care Representative (Spoke with manager advanced regarding patient.) Critical Care Time Critical Care Time: Yes Critical care time (excluding procedures): 30-74 minutes (32 minutes), Including time spent: (History, physical, documentation, tryptase laboratory results, discussion with manager advanced), Discussing w/Patient &/or Family/Programming Specialist and Discussing w/Consultants (Jt with hospitalist and manager advanced. Plan is to take straight to the [facility] Supervisor) Discharge Plan Triage Chief Complaint: Chest Pain ED Provider: Ron Guerrero Dx/Rx/DC Orders Clinical Impression: ACS (acute coronary syndrome), Gastroparesis due to secondary diabetes, TIA (transient ischemic attack), History of hypertension, History of hypercholesterolemia, History of diabetes mellitus Prescriptions: No Action lorazepam 1 mg tablet 0.5 mg PO TID PRN PRN (Reason: Anxiety) Qty: 30 0RF triamcinolone acetonide 0.1 % cream 1 applic topical BID Qty: 30 0RF Rx Instructions: Apply to affected area on left upper shoulder, twice daily x10 days then stop. duloxetine 60 mg capsule,delayed release(DR/EC) 120 mg PO DAILY 30 Days Qty: 60 2RF Jardiance 25 mg tablet 25 mg PO DAILY Qty: 90 1RF glimepiride 2 mg tablet 2 mg PO DAILY Qty: 90 1RF albuterol sulfate 1 PUFF inhaler 2 puff INHALATION Q4H PRN PRN (Reason: sob) omeprazole 20 mg capsule,delayed release(DR/EC) 20 mg PO DAILY Label Comments: gastric reflux diphenhydramine HCl 25 mg capsule 25 mg PO DAILY PRN (Reason: allergy symptoms) ondansetron 4 mg tablet,disintegrating 4 mg PO Q6H PRN (Reason: nausea and vomiting) Qty: 10 0RF cyclobenzaprine 10 mg tablet 10 mg PO TID PRN (Reason: Muscle Spasm) Qty: 20 0RF doxycycline hyclate 100 mg capsule 100 mg PO BID 7 Days Qty: 14 0RF ezetimibe 10 mg tablet 10 mg PO DAILY Qty: 90 3RF Primary Care Provider: Chantale Palm Referrals: Chantale Palm [Primary Care Provider] - Disposition Disposition: Acute Care Hospital [facility]
--- NOTE | 2022-11-29 09:00 | EKG12_ITS ---
Test Reason : REPEAT Blood Pressure : / mmHG Vent. Rate : 083 BPM Atrial Rate : 083 BPM P-R Int : 146 ms QRS Dur : 074 ms QT Int : 392 ms P-R-T Axes : 042 045 049 degrees QTc Int : 460 ms Normal sinus rhythm Normal ECG Confirmed by FAVIO MURILLO, GIANA ([id number]), scientific editor TRISTON ENCARNACION ([id number]) on 12/02/2022 11:24:12 AM Referred By: Confirmed By:BOBBI STAHL MD
[2022-11-29 09:07] VITALS: BP 165/103; PULSE 89; RESP 12; O2SAT 96
[2022-11-29] MEDS: Aspirin 81 MG TAB.CHEW 324 MG PO (09:07)
[2022-11-29] MEDS: TICAGRELOR 90 MG TABLET 180 MG PO (09:18)
[2022-11-29] MEDS: Heparin Injection (Vial) 5,000 UNIT/ML VIAL 4000 UNIT IV (09:19)
[2022-11-29] MEDS: HEPARIN/D5w 25,000 UNITS 25,000 UNITS/250 ML IV.SOLN. 10 UNITS CONT INF (09:20)
[2022-11-29 09:40] VITALS: BP 165/103; PULSE 89; RESP 12; TEMP 36.5; O2SAT 96
[2022-11-29 09:40] LABS: International Normalized Ratio 0.9; Partial Thromboplast Time 24.9 Seconds (24.1-36.2); Prothrombin Time (Protime)PT. 12.4 SECONDS (11.7-14.9)
[2022-11-29 10:16] LABS: Reflex Troponin-HS? (from REC) Y
--- NOTE | 2022-11-29 10:44 | PCM.CONS.C ---
Assessment & Plan Assessment/Plan (1) Chest pain: PLAN: Had history that was very suspicious for unstable angina. After discussing the risks and benefits we proceeded with coronary angiography which showed mild CAD. Discussed adding a statin. Patient states that she has tried different statins in the past and was allergic to it. She is on Zetia. Patient's blood pressure is on the high side. However patient states that she was on lisinopril/hydrochlorothiazide and Jardiance. This combination apparently caused her blood pressure to drop significantly and she had syncopal episodes. She has just started taking Jardiance today. I advised her to check her blood pressure at home and if it goes over 180/110 she was advised to call her primary care physician. HPI Consult Data Date of Consult: 11/29/22 HPI Narrative Reason for Consultation: CP HPI Narrative: AALIYAH LAY, is a 57 F who presents with chest pain. Chest pain was retrosternal, pressure-like radiating to the left jaw and left arm. It started at rest but got worse with walking. Patient had a few episodes of this chest pain on and off over the last 2 to 3 days. Review of systems: All systems reviewed. All else is negative except that in HPI [facility] Medical History Acute otitis externa of left ear Acute sinusitis, unspecified Arthritis Asthma Asthma Bronchitis Cardiology follow-up encounter Chest pain Contusion of right ankle Contusion of right foot Depressed Diabetes Diabetes mellitus type II, controlled Difficulty swallowing Dyspnea on exertion Easy bruising Episode of syncope Essential hypertension SACHA (generalized anxiety disorder) Gastric reflux GERD (gastroesophageal reflux disease) GI bleed Hemorrhoids High cholesterol History of colon polyps History of echocardiogram History of stress test Hyperlipidemia Injury of head and neck Marijuana use Nausea & vomiting Near syncope Non-smoker Orthostatic hypotension Pneumonia Positive PPD, treated PTSD (post-traumatic stress disorder) Restless legs RSD (reflex sympathetic dystrophy) Shoulder pain Statin intolerance Strain of right hip Strain of unspecified muscle, fascia and tendon at shoulder and upper arm level, right arm, initial encounter TIA (transient ischemic attack) Urinary tract infection with hematuria Wears glasses Home Medications albuterol sulfate 90 mcg/actuation aerosol inhaler 2 puff inhalation Q4H PRN PRN sob 03/04/14 [History Last Taken 08/15/19] omeprazole 20 mg capsule,delayed release 20 mg PO DAILY GERD 01/04/20 [History Last Taken Unknown] ezetimibe 10 mg tablet 10 mg PO DAILY CHOLESTEROL #90 tabs 04/19/21 [Rx Last Taken Unknown] diphenhydramine HCl 25 mg capsule 25 mg PO DAILY PRN allergy symptoms 03/28/22 [History Last Taken Unknown] lorazepam 1 mg tablet 0.5 mg PO TID PRN PRN Anxiety #30 tabs 05/27/22 [Rx Last Taken Unknown] triamcinolone acetonide 0.1 % topical cream 1 applic topical BID #30 grams 05/27/22 [Rx Last Taken Unknown] ondansetron 4 mg disintegrating tablet 4 mg PO Q6H PRN nausea and vomiting #10 tabs 08/21/22 [Rx Last Taken Unknown] cyclobenzaprine 10 mg tablet 10 mg PO TID PRN Muscle Spasm #20 TABLETS 09/30/22 [Rx Last Taken Unknown] duloxetine 60 mg capsule,delayed release 120 mg PO DAILY ANXIETY 30 days #60 caps 10/15/22 [Rx Last Taken Unknown] doxycycline hyclate 100 mg capsule 100 mg PO BID 7 days #14 caps 11/22/22 [Rx Last Taken Unknown] empagliflozin 25 mg tablet (Jardiance) 25 mg PO DAILY #90 tabs 11/27/22 [Rx Last Taken Unknown] glimepiride 2 mg tablet 2 mg PO DAILY #90 tabs 11/27/22 [Rx Last Taken Unknown] Allergy/AdvReac Type Severity Reaction Status Date / Time adalimumab [From Humira] Allergy Unknown Verified 11/29/22 07:53 amoxicillin trihydrate Allergy Unknown Verified 11/29/22 07:53 [From Augmentin] codeine Allergy Itching Verified 11/29/22 07:53 etanercept [From Enbrel] Allergy Unknown Verified 11/29/22 07:53 leflunomide [From Arava] Allergy Other Verified 11/29/22 07:53 metoprolol tartrate Allergy Unknown Verified 11/29/22 07:53 [From Lopressor] morphine sulfate Allergy Unknown Verified 11/29/22 07:53 [From Embeda] naltrexone HCl [From Embeda] Allergy Unknown Verified 11/29/22 07:53 oxymorphone [Oxymorphone] Allergy Unknown Verified 11/29/22 07:53 pioglitazone HCl [From Actos] Allergy Other Verified 11/29/22 07:53 pneumococcal 23-valent Allergy Unknown Verified 11/29/22 07:53 polysacchari [From Pneumovax ] potassium clavulanate Allergy Unknown Verified 11/29/22 07:53 [From Augmentin] Rwwhiuf-DIN-HlV Reductase Allergy Unknown Verified 11/29/22 07:53 Inhibitor [Mwyzcly-Dql-Dmn Reductase Inhibitor] Sulfa (Sulfonamide Allergy Anaphylaxis Verified 11/29/22 07:53 Antibiotics) sulfamethoxazole Allergy Anaphylaxis Verified 11/29/22 07:53 [From Bactrim] telithromycin [From Ketek] Allergy Unknown Verified 11/29/22 07:53 tramadol HCl [From Ultram] Allergy Unknown Verified 11/29/22 07:53 trimethoprim [From Bactrim] Allergy Anaphylaxis Verified 11/29/22 07:53 Family History Father Diabetes Hypertension Mother Diabetes Hypertension Colon polyp Other Cancer Surgical History History of appendectomy History of arthroscopy of right knee History of colonoscopy History of hysterectomy Hx of shoulder surgery Social History household members: none Smoking Status: Never smoker alcohol intake: current alcohol intake frequency: 0-2 drinks per day Alcohol type: hard liquor substance use type: other details: Gummies Physical Exam Const alert and oriented x3 HEENT normocephalic Resp normal respiratory effort Cardio regular rate and regular rhythm Extremity no pedal edema Psych mental status grossly normal Risk Stratification Risk Stratification Applicable: No Charges/Coding Visit Charges Inpatient E&M: 95967 Init Hosp L2 Objective Data Vital Signs: Vital Signs Temp Pulse Resp BP Pulse Ox O2 Del Method 97.7 F L 89 12 165/103 H 96 Room Air 11/29/22 09:40 11/29/22 09:40 11/29/22 09:40 11/29/22 09:40 11/29/22 09:40 11/29/22 09:40 Oxygen Delivery Method Room Air Weight: 190 lb Body Mass Index (BMI) 28.8 Lab / Micro Data Result Diagrams: 11/29/22 08:10 11/29/22 08:10 Labs: Laboratory Results - last 24 hr 11/29/22 08:10: WBC 5.0, RBC 4.26, Hgb 13.5, Hct 40.9, MCV 96.0, MCH 31.7, MCHC 33.0, RDW Std Deviation 49.3 H, RDW Coeff of Daiana 14.1, Plt Count 317, MPV 8.8, Immature Gran % (Auto) 0.200, Neut % (Auto) 42.4 L, Lymph % (Auto) 40.8, [place] % (Auto) 10.1 H, Eos % (Auto) 5.7 H, Baso % (Auto) 0.8, Absolute Neuts (auto) 2.1, Absolute Lymphs (auto) 2.02, Nucleated RBC % 0 11/29/22 08:10: Sodium 140, Potassium 3.6, Chloride 111 H, Carbon Dioxide 25.0, Anion Gap 4 L, BUN 17, Creatinine 0.69, Estim Creat Clear Calc 91.84, Est GFR (MDRD) Af Amer 113, Est GFR (MDRD) Non-Af 94, BUN/Creatinine Ratio 24.7 H, Glucose 193 H, Calcium 9.2, Troponin I High Sens 3 11/29/22 09:15: PT 12.4, INR 0.9, APTT 24.9 Cardiology Labs/Tests 11/29/22 08:10: WBC 5.0, RBC 4.26, Hgb 13.5, Hct 40.9, MCV 96.0, MCH 31.7, MCHC 33.0, Plt Count 317, MPV 8.8, Immature Gran % (Auto) 0.200, Neut % (Auto) 42.4 L, Lymph % (Auto) 40.8, [place] % (Auto) 10.1 H, Eos % (Auto) 5.7 H, Baso % (Auto) 0.8, Absolute Neuts (auto) 2.1, Nucleated RBC % 0 11/29/22 08:10: Sodium 140, Potassium 3.6, Chloride 111 H, Carbon Dioxide 25.0, Anion Gap 4 L, BUN 17, Creatinine 0.69, Est GFR (MDRD) Af Amer 113, Est GFR (MDRD) Non-Af 94, BUN/Creatinine Ratio 24.7 H, Glucose 193 H, Calcium 9.2 11/29/22 09:15: PT 12.4, INR 0.9, APTT 24.9 Rhythm: EKG: ECHO: Stress Test: Cardiac Cath: PCI: CT Surgery: Holter monitor: EPS: PPM: CXR: Chest CT Scan: Radiography Diagnostic Testing: Radiology Impression Chest X-Ray 11/29/22 08:09 IMPRESSION: Normal x-ray examination of the chest. Electronically Signed: Tim Cadet MD at 8:55 EDT ,
--- NOTE | 2022-11-29 13:52 | CL.D_ITS ---
Patient Name: AALIYAH LAY Study Date: 11/29/2022 Performing: Delio Arredondo MD Ht: 68 inches 172.72 cm : 1965 Wt: 189.99 lbs 86.18 kg Age: 57 Gender: female BSA: 2 PROCEDURE(S) PERFORMED [id number])LHC/COR/LV CLINICAL PROFILE AND INDICATIONS Indications: Suspected CAD, Worsening Angina Heart Failure: None Stress/Imaging Stress/Image Study Performed: No CAD Presentations: Unstable angina. CONCLUSIONS Mild coronary artery disease. Preserved EF. No significant or MR RECOMMENDATIONS Medical therapy DESCRIPTION OF PROCEDURE The patient arrived to the procedure lab. The risks and benefits of the procedure as well as a full description of our services here and current unavailability of surgical backup were fully explained to the patient and/or their significant other prior to the catheterization. The Timeout was completed, verifying the correct patient and procedure. The patient's procedural site was prepped and draped in the usual fashion. Local anesthetic was given subcutaneously to right radial region with Lidocaine 2%. Using a modified Seldinger technique, arterial access was obtained via the right radial artery, a 6Fr sheath was inserted. LV to AO pullback pressures were then recorded. Left Coronary Artery selective angiography was performed in multiple views using a 5 Fr. JL3.5 catheter. Left Ventriculography was performed in ANDREW projection using a 5 Fr. JR 4.0. Right Coronary Artery selective angiography was then performed in multiple views using a 5 Fr. JR 4 catheter.The arterial sheath was pulled and a TR Band was applied for hemostasis. 20cc air CORONARY ANGIOGRAPHY DOMINANCE: Left Dominant LEFT HEART ASSESSMENT Left Ventricular Ejection Fraction: by LV Gram 65 % Normal LV wall motion LEFT MAIN: Mild luminal irregularities LEFT ANTERIOR DESCENDING ARTERY: OSTIAL LAD: 20 % Stenosis CIRCUMFLEX ARTERY: Mild luminal irregularities RIGHT CORONARY ARTERY: Mild luminal irregularities VALVE FINDINGS: No Aortic Valve Stenosis No Mitral Insufficency COMPLICATIONS No Complications PROCEDURE MEDICATIONS Versed 1 mg IV Fentanyl 50 mcg IV Versed 1 mg IV Oxygen: 2 L/min via nasal cannula SUMMARY OF HEMODYNAMIC DATA Time AIR REST ECG 09:52:42 LV 145/7, 9 10:08:35 LV 134/4, 8 10:08:43 LVp 130/5, 7 10:09:02 AOp 155/99 (125) 10:09:09 AO 136/87 (108) 10:09:22 Signed By Delio Arredondo MD On 11/29/2022 13:51:28 Delio Arredondo MD
== END 2022-11-29 12:15 | disposition home or self-care (01) ==
LOC: ED 11:13 → SDC 11:14
PROVIDERS: Emergency Provider Emergency Medicine; Visit Provider Specialist
DX: I25.110 Atherosclerotic heart disease of native coronary artery with unstable angina pectoris (principal); E13.43 Other specified diabetes mellitus with diabetic autonomic (poly)neuropathy; I24.9 Acute ischemic heart disease, unspecified; G45.9 Transient cerebral ischemic attack, unspecified; J45.909 Unspecified asthma, uncomplicated; K21.9 Gastro-esophageal reflux disease without esophagitis; E66.9 Obesity, unspecified; F32.A Depression, unspecified; K31.84 Gastroparesis; Z79.899 Other long term (current) drug therapy; Z79.84 Long term (current) use of oral hypoglycemic drugs
CPT/HCPCS: 71045; 80048; 84484; 85025; 85610; 85730; 93005; 93458; 99152; 99153; 99285; J7040; Q9967; A4216; C1769; C1894

== ENCOUNTER 2023-01-04 18:13 | Emergency (ER) | payer MEDICAID, SELFPAY ==
[2023-01-04] VITALS (8 sets, daily range): BP systolic 150–195; BP diastolic 90–106; PULSE 95–109; RESP 18–24; TEMP 36.4; O2SAT 97–100; BMI 29.0
--- NOTE | 2023-01-04 18:18 | EKG12_ITS ---
Test Reason : DYSRHYTHMIA Blood Pressure : / mmHG Vent. Rate : 106 BPM Atrial Rate : 106 BPM P-R Int : 134 ms QRS Dur : 078 ms QT Int : 350 ms P-R-T Axes : 032 009 020 degrees QTc Int : 464 ms Sinus tachycardia Nonspecific ST abnormality Abnormal ECG When compared with ECG of 29-NOV-2022 09:00, No significant change was found Confirmed by DARIUSZ MURILLO, FELICIA ([id number]), sports editor TRISTON ENCARNACION ([id number]) on 01/08/2023 9:43:00 AM Referred By: ARNIE Confirmed By:FELICIA ARZOLA MD
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
[2023-01-04] MEDS: Aspirin 81 MG TAB.CHEW 162 MG PO (18:30)
[2023-01-04] MEDS: 0.9% Normal Saline 1,000 ML 1000 ML IV (18:30)
--- NOTE | 2023-01-04 18:35 | RAD_ITS ---
STUDY: X-RAY CHEST REASON FOR EXAM: Female, 57 years old. Patient states allergic reaction today. Chest pain. Shortness of breath. Left arm pain. History of asthma. TECHNIQUE: Single AP portable view of the chest. COMPARISON: November 29, 2022. FINDINGS: The lungs are clear and expanded. There is no demonstrated pleural abnormality. Normal size heart. Normal mediastinum and jojo. Normal visualized pulmonary arteries. Normal visualized aortic arch and descending thoracic aorta. Normal visualized thoracic spine. Again seen is anterior fusion of the cervical spine. Normal visualized ribs, clavicles, and shoulders. There is no demonstrated abnormality of the visualized soft tissue structures of the upper abdomen. RAD/Chest 1 View (Portable) IMPRESSION: No acute cardiopulmonary disease or interval change. Electronically Signed: Juni Keita DO at 18:51 EDT ,
[2023-01-04 18:44] LABS: Absolute Lymphocyte Count 4.92 X10^3/uL (0.83-4.51); Absolute Neutrophil Count 5.8 X10^3/uL (2.0-7.7); Basophil% 0.8 % (0-1); Eosinophil# 0.29 X10^3/uL; Eosinophils% 2.4 % (0-5); Hematocrit 49.7 % (37-47); Hemoglobin 16.2 g/dL (12.0-15.0); Lymphocyte # 4.92 X10^3/ul (0.83-4.51); Lymphocyte % 40.1 % (19-41); Mean Corp Hgb Conc 32.6 g/dL (32-36); Mean Corpuscular Hgb 30.8 pg (27.0-32.0); Mean Corpuscular Volume 94.5 fL (81-99); Mean Platelet Vol. 8.9 fl (6.2-12.0); Monocyte# 1.11 X10^3/uL; NRBC Flagged by Analyzer 0 % (0-5); Neutrophil # 5.83 X10^3/uL (2.7-7.7); Neutrophil % 47.5 % (47-70); Platelet Count 446 K/mm3 (150-450); RBC Distribution Width CV 12.6 % (11.6-14.6); Red Blood Count 5.26 M/mm3 (4.2-5.4); White Blood Count 12.3 K/mm3 (4.4-11.0)
[2023-01-04 19:08] LABS: Anion Gap 14 (5-15); BUN 18 mg/dL (7-18); BUN/Creat Ratio 15.7 RATIO (10-20); Calcium,Total 10.1 mg/dL (8.5-10.1); Chloride 98 mmol/L (98-107); Creatinine, Serum 1.15 mg/dL (0.55-1.02); EST Glomerular Filtration Rate 52 mL/min (>60); Est Glom Filt Rate - Afr Amer 63 mL/min (>60); Glucose 243 mg/dL (74-106); Potassium 2.6 mmol/L (3.5-5.1); Sodium Level 134 mmol/L (136-145); Troponin-I HS (w/2H Reflex) 4 pg/mL (3.0-54.0)
[2023-01-04 20:03] LABS: Potassium 2.3 mmol/L (3.5-5.1)
[2023-01-04] MEDS: Potassium Chloride Oral Tablet 20 MEQ 40 MEQ PO (20:31)
[2023-01-04] MEDS: Potassium Chloride 10mEq/100mL 10 MEQ/100 ML IV.SOLN. 100 MEQ IV BOLUS ×2 (20:36→21:41)
[2023-01-04 20:39] LABS: Reflex Troponin-HS? (from REC) Y
[2023-01-04 20:46] LABS: Magnesium 1.9 mg/dL (1.6-2.6)
[2023-01-04 20:57] LABS: Troponin-I HS 6 pg/mL (3.0-54.0)
[2023-01-04] MEDS: Albuterol 2.5 MG/3 ML VIAL.NEB. INHALATION (22:15)
[2023-01-04] MEDS: MethylPREDNISolone 125 MG/2 ML Vial 60 MG IV (22:22)
[2023-01-05 00:53] VITALS: BP 160/86; PULSE 95; RESP 17; O2SAT 95
== END 2023-01-05 01:00 | disposition home or self-care (01) ==
PROVIDERS: Emergency Provider Emergency Medicine; Visit Provider Emergency Medicine
DX: J45.901 Unspecified asthma with (acute) exacerbation (principal); Z95.811 Presence of heart assist device; E11.43 Type 2 diabetes mellitus with diabetic autonomic (poly)neuropathy; F41.9 Anxiety disorder, unspecified; E78.00 Pure hypercholesterolemia, unspecified; I10 Essential (primary) hypertension; R68.84 Jaw pain; E87.6 Hypokalemia; K31.84 Gastroparesis
CPT/HCPCS: 71045; 80048; 83735; 84132; 84484; 85025; 93005; 94640; 96361; 96365; 96366; 96375; 99285; J7030; A4216

== ENCOUNTER 2023-01-06 10:57 | Emergency (ER) | payer OTHER, MEDICAID, SELFPAY ==
[2023-01-06 10:58] VITALS: BP 193/114; PULSE 87; RESP 16; TEMP 36.8; O2SAT 100; BMI 27.9
[2023-01-06 11:05] VITALS: BP 188/101; PULSE 88; RESP 16; O2SAT 99
--- NOTE | 2023-01-06 11:21 | EKG12_ITS ---
Test Reason : CP Blood Pressure : / mmHG Vent. Rate : 086 BPM Atrial Rate : 086 BPM P-R Int : 128 ms QRS Dur : 078 ms QT Int : 384 ms P-R-T Axes : 058 035 039 degrees QTc Int : 459 ms Normal sinus rhythm Normal ECG Confirmed by DARIUSZ MURILLO, FELICIA ([id number]), senior editor [employer]STON ENCARNACION ([id number]) on 01/08/2023 9:17:29 AM Referred By: DONNA/NICA Confirmed By:FELICIA ARZOLA MD
[2023-01-06] MEDS: Aspirin 81 MG TAB.CHEW 324 MG PO (11:27)
[2023-01-06 11:29] VITALS: O2SAT 100
--- NOTE | 2023-01-06 11:31 | RAD_ITS ---
STUDY: X-RAY CHEST REASON FOR EXAM: Female, 57 years old. Chest pain TECHNIQUE: Single AP portable view of the chest. COMPARISON: Comparison is made with prior study dated January 04, 2023. FINDINGS: EKG electrodes are seen. The lungs are clear and expanded. There is no demonstrated pleural abnormality. Normal size heart. Normal mediastinum and jojo. Normal visualized pulmonary arteries. Normal visualized aortic arch and descending thoracic aorta. Normal visualized thoracic spine. Degenerative changes of the right shoulder joint. Status post anterior fusion of the lower cervical spine. There is no demonstrated abnormality of the visualized soft tissue structures of the upper abdomen. RAD/Chest 1 View (Portable) IMPRESSION: Normal x-ray examination of the chest. Electronically Signed: Tim Cadet MD at 12:14 EDT ,
[2023-01-06 11:34] LABS: Absolute Lymphocyte Count 4.57 X10^3/uL (0.83-4.51); Absolute Neutrophil Count 9.2 X10^3/uL (2.0-7.7); Basophil% 0.7 % (0-1); Eosinophil# 0.09 X10^3/uL; Eosinophils% 0.6 % (0-5); Hematocrit 46.1 % (37-47); Hemoglobin 14.6 g/dL (12.0-15.0); Lymphocyte # 4.57 X10^3/ul (0.83-4.51); Lymphocyte % 30.6 % (19-41); Mean Corp Hgb Conc 31.7 g/dL (32-36); Mean Corpuscular Hgb 30.6 pg (27.0-32.0); Mean Corpuscular Volume 96.6 fL (81-99); Monocyte# 0.92 X10^3/uL; Monocyte% 6.2 % (0-10); NRBC Flagged by Analyzer 0 % (0-5); Neutrophil % 61.4 % (47-70); Platelet Count 398 K/mm3 (150-450); RBC Distribution Width CV 13.1 % (11.6-14.6); RBC Distribution Width SD 46.9 fl (35.1-43.9); Red Blood Count 4.77 M/mm3 (4.2-5.4)
[2023-01-06 11:52] LABS: Anion Gap 9 (5-15); BUN 10 mg/dL (7-18); BUN/Creat Ratio 11.1 RATIO (10-20); Calcium,Total 9.3 mg/dL (8.5-10.1); Chloride 106 mmol/L (98-107); EST Glomerular Filtration Rate 69 mL/min (>60); Est Glom Filt Rate - Afr Amer 83 mL/min (>60); Estimated Creatinine Clearance 70.41 ml/min; Glucose 211 mg/dL (74-106); Potassium 3.4 mmol/L (3.5-5.1); Sodium Level 137 mmol/L (136-145); Troponin-I HS (w/2H Reflex) 4 pg/mL (3.0-54.0)
--- NOTE | 2023-01-06 11:53 | ED.VIS.CHEST ---
HPI History of Present Illness Chief Complaint: Chest Pain Informant: patient Onset/Context/Timing Onset: Today Activity at onset: gradual Timing: Continuous Quality: Positive for Heaviness Location: Substernal Worsened By: Movement of Torso Relieved By: Nothing Associated Symptoms: Positive for Dyspnea, Cough, Lightheadedness and Palpitations; Negative for Nausea, Vomiting, Diaphoresis, Fever or Acid Reflux Narrative Narrative: Patient presents with chest pain that became worse today. Patient states it came on gradually since this morning. Patient states it has been constant. Patient describes as a heaviness. Patient states it is over the substernal area. Patient states it is worse when she moves her torso. Patient does admit to some shortness of breath and cough with this. Patient states she was seen here 2 days ago for an allergic reaction when she was at work and they were burning mulch. Patient states she went back to work today and there was still the smell of the burning mulch. Patient states she thinks this is what caused the pain in her chest to come on again. CVD Risk Factors: Positive for Diabetes and Hypercholesterolemia; Negative for Hypertension, Family History 1' </=55 or Smoking PE Risk Factors: Negative for Recent Travel/Surgery, Recent Immobilization, Prior DVT or PE, Cancer or OCP + Smoking + >/=35 PFSH PFSH Medical History Acute otitis externa of left ear Acute sinusitis, unspecified Arthritis Asthma Asthma Bronchitis Cardiology follow-up encounter Chest pain Contusion of right ankle Contusion of right foot Depressed Diabetes Diabetes mellitus type II, controlled Difficulty swallowing Dyspnea on exertion Easy bruising Episode of syncope Essential hypertension SACHA (generalized anxiety disorder) Gastric reflux GERD (gastroesophageal reflux disease) GI bleed Hemorrhoids High cholesterol History of colon polyps History of echocardiogram History of stress test Hyperlipidemia Injury of head and neck Marijuana use Nausea & vomiting Near syncope Non-smoker Orthostatic hypotension Pneumonia Positive PPD, treated PTSD (post-traumatic stress disorder) Restless legs RSD (reflex sympathetic dystrophy) Shoulder pain Statin intolerance Strain of right hip Strain of unspecified muscle, fascia and tendon at shoulder and upper arm level, right arm, initial encounter TIA (transient ischemic attack) Urinary tract infection with hematuria Wears glasses Home Medications albuterol sulfate 90 mcg/actuation aerosol inhaler 2 puff inhalation Q4H PRN PRN sob 03/04/14 [History Last Taken 08/15/19] omeprazole 20 mg capsule,delayed release 20 mg PO DAILY GERD 01/04/20 [History Last Taken Unknown] ezetimibe 10 mg tablet 10 mg PO DAILY CHOLESTEROL #90 tabs 04/19/21 [Rx Last Taken Unknown] diphenhydramine HCl 25 mg capsule 25 mg PO DAILY PRN allergy symptoms 03/28/22 [History Last Taken Unknown] lorazepam 1 mg tablet 0.5 mg PO TID PRN PRN Anxiety #30 tabs 05/27/22 [Rx Last Taken Unknown] triamcinolone acetonide 0.1 % topical cream 1 applic topical BID #30 grams 05/27/22 [Rx Last Taken Unknown] ondansetron 4 mg disintegrating tablet 4 mg PO Q6H PRN nausea and vomiting #10 tabs 08/21/22 [Rx Last Taken Unknown] cyclobenzaprine 10 mg tablet 10 mg PO TID PRN Muscle Spasm #20 TABLETS 09/30/22 [Rx Last Taken Unknown] duloxetine 60 mg capsule,delayed release 120 mg PO DAILY ANXIETY 30 days #60 caps 10/15/22 [Rx Last Taken Unknown] empagliflozin 25 mg tablet (Jardiance) 25 mg PO DAILY #90 tabs 11/27/22 [Rx Last Taken Unknown] glimepiride 2 mg tablet 2 mg PO DAILY #90 tabs 11/27/22 [Rx Last Taken Unknown] flash glucose sensor (FreeStyle Tanmay 14 Day Sensor kit) #2 ea 12/04/22 [Rx Last Taken Unknown] albuterol sulfate 90 mcg/actuation aerosol inhaler (Ventolin HFA) 2 puff inhalation Q4H PRN PRN Wheezing or shortness of breath #1 inh 01/04/23 [Rx Last Taken Unknown] potassium chloride 20 mEq tablet,extended release(part/cryst) 20 meq PO BID #10 tabs 01/04/23 [Rx Last Taken Unknown] Allergy/AdvReac Type Severity Reaction Status Date / Time adalimumab [From Humira] Allergy Unknown Verified 01/04/23 18:18 amoxicillin trihydrate Allergy Unknown Verified 01/04/23 18:18 [From Augmentin] codeine Allergy Itching Verified 01/04/23 18:18 etanercept [From Enbrel] Allergy Unknown Verified 01/04/23 18:18 leflunomide [From Arava] Allergy Other Verified 01/04/23 18:18 metoprolol tartrate Allergy Unknown Verified 01/04/23 18:18 [From Lopressor] morphine sulfate Allergy Unknown Verified 01/04/23 18:18 [From Embeda] naltrexone HCl [From Embeda] Allergy Unknown Verified 01/04/23 18:18 oxymorphone [Oxymorphone] Allergy Unknown Verified 01/04/23 18:18 pioglitazone HCl [From Actos] Allergy Other Verified 01/04/23 18:18 pneumococcal 23-valent Allergy Unknown Verified 01/04/23 18:18 polysacchari [From Pneumovax ] potassium clavulanate Allergy Unknown Verified 01/04/23 18:18 [From Augmentin] Tuoelvf-HUP-KeS Reductase Allergy Unknown Verified 01/04/23 18:18 Inhibitor [Ozticmk-Cdc-Juc Reductase Inhibitor] Sulfa (Sulfonamide Allergy Anaphylaxis Verified 01/04/23 18:18 Antibiotics) sulfamethoxazole Allergy Anaphylaxis Verified 01/04/23 18:18 [From Bactrim] telithromycin [From Ketek] Allergy Unknown Verified 01/04/23 18:18 tramadol HCl [From Ultram] Allergy Unknown Verified 01/04/23 18:18 trimethoprim [From Bactrim] Allergy Anaphylaxis Verified 01/04/23 18:18 Family History Father Diabetes Hypertension Mother Diabetes Hypertension Colon polyp Other Cancer Surgical History History of appendectomy History of arthroscopy of right knee History of colonoscopy History of hysterectomy Hx of shoulder surgery Social History household members: none Smoking Status: Never smoker alcohol intake: current alcohol intake frequency: 0-2 drinks per day Alcohol type: hard liquor substance use type: other details: Gummies ROS ROS ED Constitutional Constitutional ED: Denies chills or fever(s) Eyes Eyes: Denies blurry vision or change in vision ENT ENT ED: Reports rhinorrhea; Denies sore throat Cardiovascular Cardiovascular: Reports chest pain and palpitations Respiratory/Chest Respiratory/Chest: Reports cough and dyspnea Gastrointestinal Gastrointestinal: Denies abdominal pain, nausea or vomiting Genitourinary Genitourinary ED: Denies dysuria or hematuria Musculoskeletal Musculoskeletal: Reports neck pain; Denies back pain Integumentary Denies abscess or rash Neurologic Neurologic: Denies headache(s) or weakness Allergic/Immunologic Allergic/Immunologic ED: Denies mouth swelling or urticaria EXAM Physical Exam Const Vital Signs: 01/06/23 10:58 01/06/23 11:04 01/06/23 11:05 Temperature 98.2 F Temperature Source Temporal Pulse Rate 87 88 Respiratory Rate 16 16 Respiratory Effort Normal Non-Labored Blood Pressure 193/114 H 188/101 H Blood Pressure Mean 140 130 Pulse Ox 100 99 Oxygen Delivery Method Room Air Room Air 01/06/23 11:29 01/06/23 12:00 01/06/23 13:39 Temperature Temperature Source Pulse Rate 87 89 Respiratory Rate 15 16 Respiratory Effort Blood Pressure 157/99 H 159/88 H Blood Pressure Mean 118 111 Pulse Ox 100 100 99 Oxygen Delivery Method Room Air Room Air Room Air Positive well nourished and well developed General Appearance ED: well developed and NAD HEENT normocephalic and atraumatic Eyes PERRL and EOMs intact bilaterally Neck supple and no JVD Chest Wall palpation of chest normal Resp normal respiratory effort and clear to auscultation bilaterally Effort and Inspection: Negative for respiratory distress Cardio regular rate and regular rhythm GI normal to inspection, nondistended, normoactive bowel sounds, soft to palpation, non-tender and non-distended Extremity normal to inspection General Extremety ED: Negative for edema or tenderness General Extremity: Negative for edema Neuro oriented x3, CN's II-XII intact bilaterally and no sensory deficits noted Sensorium / Orientation: awake and alert Motor Exam: strength 5/5 throughout Psych mental status grossly normal Heart Score History: Slightly/Non-Suspicious ECG: Normal Age: >45 - <65 years Risk Factors: 1 or 2 Risk Factors Troponin: </= Normal Limit Score: 2 MDM MDM MDM Narrative Medical decision making narrative: Differential diagnosis includes cardiac dysrhythmia, cardiac ischemia, pneumonia, bronchitis, reactive airway disease, anxiety, and musculoskeletal pain. EKG will be obtained to assess for cardiac dysrhythmia and cardiac ischemia. Chest x-ray will be obtained to assess for pneumonia and pneumothorax. CBC will be obtained to assess for leukocytosis and anemia. Basic metabolic profile will be obtained to assess for electrolyte abnormality and renal function. High-sensitivity troponin will be obtained to assess for cardiac ischemia. 2-hour repeat high-sensitivity troponin will be obtained to assess for ongoing cardiac ischemia. History & Record Review Additional record(s) reviewed:: Prior labs Lab Data Attestation: I reviewed the patient's lab results. Lab results narrative: CBC showed a mild leukocytosis of 15.0. The remainder was within normal limits. Basic metabolic profile showed an elevated glucose of 211. The remainder was within normal limits. High-sensitivity troponin was normal at 4. 2-hour repeat high-sensitivity troponin was reviewed and was normal at 5. Labs: Laboratory Results - last 24 hr 01/06/23 01/06/23 01/06/23 11:27 11:27 13:35 WBC 15.0 H RBC 4.77 Hgb 14.6 Hct 46.1 MCV 96.6 MCH 30.6 MCHC 31.7 L RDW Std Deviation 46.9 H RDW Coeff of [place] 13.1 Plt Count 398 MPV 9.0 Immature Gran % (Auto) 0.500 Neut % (Auto) 61.4 Lymph % (Auto) 30.6 [place] % (Auto) 6.2 Eos % (Auto) 0.6 Baso % (Auto) 0.7 Absolute Neuts (auto) 9.2 H Absolute Lymphs (auto) 4.57 H Nucleated RBC % 0 Sodium 137 Potassium 3.4 L Chloride 106 Carbon Dioxide 22.0 Anion Gap 9 BUN 10 Creatinine 0.90 Estim Creat Clear Calc 70.41 Est GFR (MDRD) Af Amer 83 Est GFR (MDRD) Non-Af 69 BUN/Creatinine Ratio 11.1 Glucose 211 H Calcium 9.3 Troponin I High Sens 4 5 Radiography Chest X-Ray - ED: 1 View Diagnostic Testing: Clinical Impression(s) from Imaging Studies Chest X-Ray 01/06/23 11:31 IMPRESSION: Normal x-ray examination of the chest. Electronically Signed: Tim Cadet MD at 12:14 EDT , Portable 1 view chest x-ray was obtained. On my independent interpretation, lung hart are clear. There is normal cardiac silhouette. Bony thorax is normal. There is no acute process noted. Radiologist also interpreted the x-ray and agrees. EKG Initial EKG: Attestation: I personally reviewed and interpreted this EKG as follows: Interpretation: Sinus Rhythm (86) and No Acute Injury Pattern Comments: EKG was obtained. On my independent interpretation, it showed a normal sinus rhythm with a rate of 86. CT interval, QRS interval, and QTc intervals were all normal. [place] was normal. There are no acute ST or T wave changes. Prior EKG tracings: available for review Prior: Unchanged (11/29/2022) Treatment and Re-Evaluation :: Patient was given aspirin here. Patient is feeling better on reevaluation. Patient has a HEART score of 2. Patient was advised that this is low risk for acute cardiac event. Patient was instructed to follow-up with her primary care physician or Workmen's Comp. physician in 5 to 7 days. Patient was released back to work. Patient understood and was agreeable with the plan. All questions were answered. Discharge Plan Triage Chief Complaint: Chest Pain ED Provider: Andrae Sorensen Dx/Rx/DC Orders Clinical Impression: Reactive airway disease with acute exacerbation, Chest pain Instructions: ED Chest Pain, Uncertain Cause Prescriptions: No Action lorazepam 1 mg tablet 0.5 mg PO TID PRN PRN (Reason: Anxiety) Qty: 30 0RF triamcinolone acetonide 0.1 % cream 1 applic topical BID Qty: 30 0RF Rx Instructions: Apply to affected area on left upper shoulder, twice daily x10 days then stop. duloxetine 60 mg capsule,delayed release(DR/EC) 120 mg PO DAILY 30 Days Qty: 60 2RF Jardiance 25 mg tablet 25 mg PO DAILY Qty: 90 1RF glimepiride 2 mg tablet 2 mg PO DAILY Qty: 90 1RF albuterol sulfate 1 PUFF inhaler 2 puff INHALATION Q4H PRN PRN (Reason: sob) omeprazole 20 mg capsule,delayed release(DR/EC) 20 mg PO DAILY Label Comments: gastric reflux diphenhydramine HCl 25 mg capsule 25 mg PO DAILY PRN (Reason: allergy symptoms) ondansetron 4 mg tablet,disintegrating 4 mg PO Q6H PRN (Reason: nausea and vomiting) Qty: 10 0RF cyclobenzaprine 10 mg tablet 10 mg PO TID PRN (Reason: Muscle Spasm) Qty: 20 0RF potassium chloride 20 mEq tablet,ER particles/crystals 20 meq PO BID Qty: 10 0RF albuterol sulfate [Ventolin HFA] 90 mcg/actuation HFA aerosol inhaler 2 puff inhalation Q4H PRN PRN (Reason: Wheezing or shortness of breath) Qty: 1 0RF ezetimibe 10 mg tablet 10 mg PO DAILY Qty: 90 3RF (DME) FreeStyle Tanmay 14 Day Sensor Kit See Rx Instructions .Route Qty: 2 5RF Rx Instructions: 1 sensor q 14 days Primary Care Provider: Chantale Palm Referrals: Chantale Palm [Primary Care Provider] - 5-7 Days [facility] [Non-Staff] - 5-7 Days Disposition Disposition: Home, Self Care
[2023-01-06 12:00] VITALS: BP 157/99; PULSE 87; RESP 15; O2SAT 100
--- NOTE | 2023-01-06 12:19 | ED.RN ---
Pt notifies registration that this visit should be worker's comp. Pt states to this RN that she believes the chest pain is not cardiac and stems from an alleged allergic reaction she had on Friday. Pt states she was here at [facility] ED on Friday due to an allergic reaction, further states she's had this same chest pain since Friday. Call placed to [facility] [employer] to ask if drug testing is required. She states she will have someone call back regarding claim but states drug testing is required.
[2023-01-06 13:31] LABS: Reflex Troponin-HS? (from REC) Y
[2023-01-06 13:39] VITALS: BP 159/88; PULSE 89; RESP 16; O2SAT 99
--- NOTE | 2023-01-06 13:40 | ED.RN ---
Pt notified of required drug test, voices understanding that she needs to go to the [facility] before 6pm today. Pt also states she did not request Friday's visit to be worker's comp or fill out FROI. She states I couldn't breathe, I wasn't able to fill out paperwork.
[2023-01-06 13:58] LABS: Troponin-I HS 5 pg/mL (3.0-54.0)
[2023-01-06 14:30] VITALS: BP 168/74; PULSE 78; RESP 16; O2SAT 98
== END 2023-01-06 14:32 | disposition home or self-care (01) ==
PROVIDERS: Emergency Provider Emergency Medicine; Visit Provider Emergency Medicine
DX: J45.901 Unspecified asthma with (acute) exacerbation (principal); E11.9 Type 2 diabetes mellitus without complications; E78.00 Pure hypercholesterolemia, unspecified; I10 Essential (primary) hypertension
CPT/HCPCS: 71045; 80048; 84484; 85025; 93005; 99284; A4216

== ENCOUNTER → 2023-02-27 | Outpatient (CLI) | payer MEDICAID, SELFPAY ==
[2023-02-27 14:46] LABS: Bacteria 0 SEEN /hpf (None Seen); Mucous, Urine 0 SEEN /hpf (<or=2+); Red Blood Cells-Urine 0 SEEN /hpf (0-5)
[2023-02-27 15:23] LABS: Color, Urine Yellow (Yellow); Glucose, Dipstick 1000 mg/dl (Normal); Ketone-Dipstick Negative (Negative); Leukocyte Esterase-Dipstick 25 /ul (Negative); Nitrite-Dipstick Negative (Negative); Occult Blood-Urine Negative /ul (Negative); Protein-Dipstick 15 mg/dl (Negative); Specific Gravity, Urine 1.005 (1.002-1.030); Urine Bilirubin Dipstick Negative (Negative); Urine Clarity Clear (Clear); Urine Urobilinogen Normal (Normal)
[2023-02-27 15:54] LABS: Squamous Epithelial Cells - UA 0-5 SEEN /hpf (5-10); White Blood Cells 0-5 SEEN /hpf (0-5)
== END | disposition home or self-care (01) ==
LOC: LAB 14:22
PROVIDERS: PCP Registered Nurse; Referring Provider Nurse Practitioner Family; Visit Provider Nurse Practitioner Family
DX: R30.0 Dysuria (principal)
CPT/HCPCS: 81001; 87086; 87088

== ENCOUNTER 2023-05-23 13:39 | Emergency (ER) | payer MEDICAID, SELFPAY ==
[2023-05-23 13:40] VITALS: BP 190/95; PULSE 88; RESP 18; TEMP 35.5; O2SAT 98
[2023-05-23 14:04] LABS: Absolute Lymphocyte Count 2.67 X10^3/uL (0.83-4.51); Absolute Neutrophil Count 5.4 X10^3/uL (2.0-7.7); Basophil# 0.07 X10^3/uL; Basophil% 0.8 % (0-1); Eosinophil# 0.15 X10^3/uL; Eosinophils% 1.7 % (0-5); Hematocrit 43.8 % (37-47); Lymphocyte # 2.67 X10^3/ul (0.83-4.51); Mean Corpuscular Hgb 29.5 pg (27.0-32.0); Mean Corpuscular Volume 92.4 fL (81-99); Mean Platelet Vol. 8.6 fl (6.2-12.0); Monocyte# 0.61 X10^3/uL; Monocyte% 6.9 % (0-10); NRBC Flagged by Analyzer 0 % (0-5); Neutrophil # 5.36 X10^3/uL (2.7-7.7); Neutrophil % 60.2 % (47-70); Platelet Count 392 K/mm3 (150-450); RBC Distribution Width CV 12.6 % (11.6-14.6); RBC Distribution Width SD 43.1 fl (35.1-43.9); Red Blood Count 4.74 M/mm3 (4.2-5.4); White Blood Count 8.9 K/mm3 (4.4-11.0)
[2023-05-23 14:12] LABS: Anion Gap 8 (5-15); BUN 14 mg/dL (7-18); BUN/Creat Ratio 17.5 RATIO (10-20); Calcium,Total 8.9 mg/dL (8.5-10.1); Chloride 108 mmol/L (98-107); EST Glomerular Filtration Rate 79 mL/min (>60); Est Glom Filt Rate - Afr Amer 95 mL/min (>60); Glucose 222 mg/dL (74-106); Potassium 4.1 mmol/L (3.5-5.1); Sodium Level 140 mmol/L (136-145)
--- NOTE | 2023-05-23 15:18 | CT_ITS ---
EXAMINATION : Head CT w/out contrast HISTORY : headache COMPARISON : 09/30/2022. TECHNIQUE : Multiple contiguous axial images were obtained from the skull base to the vertex without intravenous contrast. A radiation dose optimization technique was used for this scan. FINDINGS : The ventricles and sulci are normal in size. There is no evidence for acute intracranial hemorrhage, mass effect, or midline shift. There is no extra-axial fluid collection. There is normal gaitan-white differentiation, without CT evidence of acute ischemia or infarct. The skull base and calvarium are unremarkable. The orbits are unremarkable. The paranasal sinuses are clear. The mastoid air cells are well-aerated. The soft tissues are unremarkable. CT/Brain/Head without Contrast IMPRESSION: No acute intracranial abnormality. Electronically Signed: Toney Meneses MD at 16:09 EDT ,
[2023-05-23 15:19] VITALS: BMI 30.2
[2023-05-23 15:25] VITALS: BP 157/84; PULSE 81; RESP 16; O2SAT 98
[2023-05-23] MEDS: Metoclopramide 10 MG/2 ML Vial IV (15:26)
[2023-05-23] MEDS: DiphenhydrAMINE 50 MG/ML Syringe 25 MG IV (15:26)
[2023-05-23] MEDS: Meclizine HCl 25 MG Tablet PO (15:26)
--- NOTE | 2023-05-23 15:42 | EX.ED.DYSGE1 ---
HPI History of Present Illness Chief Complaint: Dizziness Narrative Narrative: -year-old female presenting with headache and vertiginous symptoms. Patient has history of vertigo and she has history of migraine headaches distantly. They never come at the same time. No trauma. She states that her headache is severe. Tylenol and ibuprofen are not helping and she takes this regularly for reflex sympathetic dystrophy. No fevers. Has a little bit of neck pain that is chronically and has a history of cervical fusion. She does complain of some slightly blurred vision, light and sound sensitivity. [facility] Medical History Acute otitis externa of left ear Acute sinusitis, unspecified Arthritis Asthma Asthma Bronchitis Cardiology follow-up encounter Chest pain Contusion of right ankle Contusion of right foot Depressed Diabetes Diabetes mellitus type II, controlled Difficulty swallowing Dyspnea on exertion Easy bruising Episode of syncope Essential hypertension SACHA (generalized anxiety disorder) Gastric reflux GERD (gastroesophageal reflux disease) GI bleed Hemorrhoids High cholesterol History of colon polyps History of diabetes mellitus History of echocardiogram History of stress test Hyperlipidemia Injury of head and neck Marijuana use Nausea & vomiting Near syncope Non-smoker Orthostatic hypotension Pneumonia Positive PPD, treated PTSD (post-traumatic stress disorder) Restless legs RSD (reflex sympathetic dystrophy) Shoulder pain Statin intolerance Strain of right hip Strain of unspecified muscle, fascia and tendon at shoulder and upper arm level, right arm, initial encounter TIA (transient ischemic attack) Urinary tract infection with hematuria Wears glasses Home Medications omeprazole 20 mg capsule,delayed release 20 mg PO DAILY GERD 01/04/20 [History Last Taken Unknown] ezetimibe 10 mg tablet 10 mg PO DAILY CHOLESTEROL #90 tabs 04/19/21 [Rx Last Taken Unknown] diphenhydramine HCl 25 mg capsule 25 mg PO DAILY PRN allergy symptoms 03/28/22 [History Last Taken Unknown] triamcinolone acetonide 0.1 % topical cream 1 applic topical BID #30 grams 05/27/22 [Rx Last Taken Unknown] cyclobenzaprine 10 mg tablet 10 mg PO TID PRN Muscle Spasm #20 TABLETS 09/30/22 [Rx Last Taken Unknown] duloxetine 60 mg capsule,delayed release 120 mg (2 x 60 mg) PO DAILY ANXIETY 30 days #60 caps 10/15/22 [Rx Last Taken Unknown] glimepiride 2 mg tablet 2 mg PO DAILY #90 tabs 11/27/22 [Rx Last Taken Unknown] albuterol sulfate 90 mcg/actuation aerosol inhaler (Ventolin HFA) 2 puff inhalation Q4H PRN PRN Wheezing or shortness of breath #1 inh 01/04/23 [Rx Last Taken Unknown] potassium chloride 20 mEq tablet,extended release(part/cryst) 20 meq PO BID #10 tabs 01/04/23 [Rx Last Taken Unknown] flash glucose sensor (FreeStyle Tanmay 2 Sensor kit) #2 ea 02/27/23 [Rx Last Taken Unknown] insulin glargine 100 unit/mL (3 mL) subcutaneous pen (Basaglar KwikPen U-100 Insulin) 25 unit (0.25 mL) subcut QAM #15 mL 02/27/23 [Rx Last Taken Unknown] metronidazole 500 mg tablet 500 mg PO BID 02/27/23 [History Last Taken Unknown] pen needle, diabetic 32 gauge x 5/32 (BD Ultra-Fine Thais Pen Needle) #100 ea 03/05/23 [Rx Last Taken Unknown] alcohol swabs 1 pad topical 4X/DAY #200 ea 04/28/23 [Rx Last Taken Unknown] furosemide 40 mg tablet 40 mg PO DAILY PRN 04/28/23 [History Last Taken Unknown] insulin aspart U-100 100 unit/mL (3 mL) subcutaneous pen (Novolog FlexPen U-100 Insulin aspart) 15 unit (0.15 mL) subcut TID #13.5 mL 04/28/23 [Rx Last Taken Unknown] losartan 25 mg tablet 25 mg PO DAILY #30 tabs 04/28/23 [Rx Last Taken Unknown] ondansetron 4 mg disintegrating tablet 4 mg PO Q6H PRN nausea and vomiting #10 tabs 04/28/23 [Rx Last Taken Unknown] pen needle, diabetic 32 gauge x 5/32 (BD Ultra-Fine Thais Pen Needle) #100 ea 04/28/23 [Rx Last Taken Unknown] tirzepatide 2.5 mg/0.5 mL subcutaneous pen injector (Mounjaro) 2.5 mg (0.5 mL) subcut QWEEK 4 weeks #2 mL 04/28/23 [Rx Last Taken Unknown] lorazepam 1 mg tablet 0.5 mg (1/2 x 1 mg) PO DAILY PRN Anxiety #30 tabs 05/14/23 [Rx Last Taken Unknown] meclizine 25 mg tablet 25 mg PO TID PRN dizziness #30 tabs 05/23/23 [Rx Last Taken Unknown] Allergy/AdvReac Type Severity Reaction Status Date / Time adalimumab [From Humira] Allergy Unknown Verified 05/23/23 13:40 amoxicillin trihydrate Allergy Unknown Verified 05/23/23 13:40 [From Augmentin] codeine Allergy Itching Verified 05/23/23 13:40 etanercept [From Enbrel] Allergy Unknown Verified 05/23/23 13:40 leflunomide [From Arava] Allergy Other Verified 05/23/23 13:40 metoprolol tartrate Allergy Unknown Verified 05/23/23 13:40 [From Lopressor] morphine sulfate Allergy Unknown Verified 05/23/23 13:40 [From Embeda] naltrexone HCl [From Embeda] Allergy Unknown Verified 05/23/23 13:40 oxymorphone [Oxymorphone] Allergy Unknown Verified 05/23/23 13:40 pioglitazone HCl [From Actos] Allergy Other Verified 05/23/23 13:40 pneumococcal 23-valent Allergy Unknown Verified 05/23/23 13:40 polysacchari [From Pneumovax 23] potassium clavulanate Allergy Unknown Verified 05/23/23 13:40 [From Augmentin] Fohcqga-IWZ-BsC Reductase Allergy Unknown Verified 05/23/23 13:40 Inhibitor [Tmmsdny-Eug-Zmy Reductase Inhibitor] Sulfa (Sulfonamide Allergy Anaphylaxis Verified 05/23/23 13:40 Antibiotics) sulfamethoxazole Allergy Anaphylaxis Verified 05/23/23 13:40 [From Bactrim] telithromycin [From Ketek] Allergy Unknown Verified 05/23/23 13:40 tramadol HCl [From Ultram] Allergy Unknown Verified 05/23/23 13:40 trimethoprim [From Bactrim] Allergy Anaphylaxis Verified 05/23/23 13:40 Family History Father Diabetes Hypertension Mother Diabetes Hypertension Colon polyp Other Cancer Surgical History History of appendectomy History of arthroscopy of right knee History of colonoscopy History of hysterectomy Hx of shoulder surgery Social History household members: none Smoking Status: Never smoker alcohol intake: current alcohol intake frequency: 0-2 drinks per day Alcohol type: hard liquor substance use type: other details: Gummies ROS ROS ED Constitutional Constitutional ED: Denies chills, fever(s) or sweats Eyes Eyes: Reports blurry vision bilateral and other Details: Photophobia ; Denies change in vision ENT ENT ED: Reports other Details: Phonophobia ; Denies ear pain or sore throat Cardiovascular Cardiovascular: Denies chest pain, palpitations or racing heartbeat Respiratory/Chest Respiratory/Chest: Denies cough, dyspnea or sputum Gastrointestinal Gastrointestinal: Reports nausea; Denies abdominal pain, constipation, diarrhea or vomiting Genitourinary Genitourinary ED: Denies dysuria, hematuria or urinary frequency Musculoskeletal Musculoskeletal: Denies arthralgias, myalgias or neck pain Integumentary Denies abscess, Abrasions or rash Neurologic Neurologic: Denies headache(s), paresthesias or weakness Psychiatric Psychiatric: Denies anxiety, depression, suicidal ideation or suicidal thoughts Endocrine Endocrinology: Denies polydipsia or polyuria EXAM Physical Exam Const Vital Signs: 05/23/23 13:40 05/23/23 15:21 05/23/23 15:25 Temperature 96 F L Temperature Source Temporal Pulse Rate 88 81 Respiratory Rate 18 16 Respiratory Pattern Normal Blood Pressure 190/95 H 157/84 H Blood Pressure Mean 126 108 Pulse Ox 98 98 Oxygen Delivery Method Room Air Room Air Positive well nourished General Appearance ED: NAD; Negative for pallor HEENT Reports moist mucous membranes Eyes PERRL and EOMs intact bilaterally Neck no lymphadenopathy Neck Narrative: Meningeal signs Chest Wall inspection of chest normal Resp normal respiratory effort Cardio regular rate and regular rhythm Extremity normal to inspection Neuro oriented x3 and CN's II-XII intact bilaterally Sensorium / Orientation: alert Motor Exam: strength 5/5 throughout Psych mental status grossly normal Skin no rashes or lesions noted General Skin Exam: Negative for jaundice or pallor MDM MDM MDM Narrative Medical decision making narrative: Senting with headache and vertiginous symptoms. Unable to reproduce the vertigo on exam with [place]. She has history of migraine distantly. She will be treated with Reglan, Benadryl and I will give her meclizine for her vertiginous symptoms. CBC and BMP were obtained and appear normal. Differential includes typical headache, migraine, intracranial bleed, vertigo. CT brain will be obtained. CT brain was negative. On reevaluation the patient's dizziness and headache had resolved. Patient will discharge home with a prescription for meclizine. Impression: 1. Benign positional vertigo 2. Headache Lab Data Labs: Laboratory Results - last 24 hr 05/23/23 13:55 WBC 8.9 RBC 4.74 Hgb 14.0 Hct 43.8 MCV 92.4 MCH 29.5 MCHC 32.0 RDW Std Deviation 43.1 RDW Coeff of [place] 12.6 Plt Count 392 MPV 8.6 Immature Gran % (Auto) 0.400 Neut % (Auto) 60.2 Lymph % (Auto) 30.0 Island % (Auto) 6.9 Eos % (Auto) 1.7 Baso % (Auto) 0.8 Absolute Neuts (auto) 5.4 Absolute Lymphs (auto) 2.67 Nucleated RBC % 0 Sodium 140 Potassium 4.1 Chloride 108 H Carbon Dioxide 24.0 Anion Gap 8 BUN 14 Creatinine 0.80 Est GFR (MDRD) Af Amer 95 Est GFR (MDRD) Non-Af 79 BUN/Creatinine Ratio 17.5 Glucose 222 H Calcium 8.9 Radiography Diagnostic Testing: Clinical Impression(s) from Imaging Studies Brain CT 05/23/23 15:18 IMPRESSION: No acute intracranial abnormality. Electronically Signed: Toney Meneses MD at 16:09 EDT , Discharge Plan Triage Chief Complaint: Dizziness ED Provider: Rai Draper Dx/Rx/DC Orders Instructions: Self-Care for Headaches, ED BPV Vertigo Prescriptions: New meclizine 25 mg tablet 25 mg PO TID PRN (Reason: dizziness) Qty: 30 0RF No Action triamcinolone acetonide 0.1 % cream 1 applic topical BID Qty: 30 0RF Rx Instructions: Apply to affected area on left upper shoulder, twice daily x10 days then stop. duloxetine 60 mg capsule,delayed release(DR/EC) 120 mg PO DAILY 30 Days Qty: 60 2RF glimepiride 2 mg tablet 2 mg PO DAILY Qty: 90 1RF metronidazole 500 mg tablet 500 mg PO BID insulin glargine [Basaglar KwikPen U-100 Insulin] 100 unit/mL (3 mL) insulin pen 25 unit subcut QAM Qty: 15 1RF (DME) FreeStyle Tanmay 2 Sensor Kit See Rx Instructions .Route Qty: 2 5RF Rx Instructions: 1 sensor q 14 days furosemide 40 mg tablet 40 mg PO DAILY PRN Mounjaro 2.5 mg/0.5 mL pen injector 2.5 mg subcut QWEEK 28 Days Qty: 2 0RF insulin aspart U-100 [Novolog FlexPen U-100 Insulin] 100 unit/mL (3 mL) insulin pen 15 unit subcut TID Qty: 13.5 5RF losartan 25 mg tablet 25 mg PO DAILY Qty: 30 5RF alcohol swabs Pads, Medicated 1 pad topical 4X/DAY Qty: 200 5RF (DME) pen needle, diabetic [BD Ultra-Fine Thais Pen Needle] 32 gauge x 5/32 needle See Rx Instructions .Route Qty: 100 5RF Rx Instructions: 4x/day omeprazole 20 mg capsule,delayed release(DR/EC) 20 mg PO DAILY Patient Comments: gastric reflux diphenhydramine HCl 25 mg capsule 25 mg PO DAILY PRN (Reason: allergy symptoms) ondansetron 4 mg tablet,disintegrating 4 mg PO Q6H PRN (Reason: nausea and vomiting) Qty: 10 0RF cyclobenzaprine 10 mg tablet 10 mg PO TID PRN (Reason: Muscle Spasm) Qty: 20 0RF potassium chloride 20 mEq tablet,ER particles/crystals 20 meq PO BID Qty: 10 0RF albuterol sulfate [Ventolin HFA] 90 mcg/actuation HFA aerosol inhaler 2 puff inhalation Q4H PRN PRN (Reason: Wheezing or shortness of breath) Qty: 1 0RF ezetimibe 10 mg tablet 10 mg PO DAILY Qty: 90 3RF (DME) pen needle, diabetic [BD Ultra-Fine Thais Pen Needle] 32 gauge x 5/32 needle See Rx Instructions .Route Qty: 100 5RF Rx Instructions: daily lorazepam 1 mg tablet 0.5 mg PO DAILY PRN (Reason: Anxiety) Qty: 30 1RF Primary Care Provider: Chantale Palm CHAIRMAN AND CHIEF EXECUTIVE OFFICER Referrals: Chantale Palm CHAIRMAN AND CHIEF EXECUTIVE OFFICER, CHAIRMAN AND CHIEF EXECUTIVE OFFICER-C [Primary Care Provider] - Disposition Disposition: Home, Self Care
--- NOTE | 2023-05-23 16:50 | EKG12_ITS ---
Test Reason : DIZZINESS Blood Pressure : / mmHG Vent. Rate : 084 BPM Atrial Rate : 084 BPM P-R Int : 138 ms QRS Dur : 076 ms QT Int : 382 ms P-R-T Axes : 036 035 047 degrees QTc Int : 451 ms Normal sinus rhythm Normal ECG Confirmed by FAVIO MURILLO, GIANA ([id number]), story editor CITLALLI BUSTOS ([id number]) on 05/26/2023 10:51:19 AM Referred By: Confirmed By:BOBBI STAHL MD
--- NOTE | 2023-08-11 14:38 | CM.ED ---
Social Work CAROL called regarding patient. 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 Pt reports she has been unable to afford her insulin and has not taken it for 3 weeks. CAROL provided people to people information regarding prescription assistance and guidance on community resources and re-applying for [employer]. Pt has reapplied. Pt is concerned about changing medications due to affordability and is unsure of what she needs to do to manage her diabetes at this point. Pt reports multiple health conditions and has not been feeling well. SW provided emotional support and offered to assist patient to ED if needed. Pt denies the need for ED primarily due to concern for medical bills. Pt reports her disability has been denied 4 times and she is struggling with medical bills and medications costs have been detrimental to her other finances. Pt strongly advised not to allow her health to worsen out of financial concern and discussed financial controller options and [employer] retroactive payment. SW also encouraged patient to come to ED if needed rather than avoiding medical concerns and increasing the severity due to diabetes and other medical conditions. Patient reports understanding. Pt is going to check with assistance through people to people. Pt reports she needs to see her physician but is avoiding it due to costs and has had difficulty speaking with anyone. SW offered to call physicians office and patient is agreeable. Patient given SW card if any concerns arise. CAROL left a voicemail on nursing line for Arpita BERGER at [place]. Awaiting return call. Vicki Cates MANAGER DELIVERY, PROPERTY OFFICER
== END 2023-05-23 16:49 | disposition home or self-care (01) ==
PROVIDERS: Emergency Provider Student in an Organized Health Care Education/Training Program; PCP Registered Nurse; Visit Provider Student in an Organized Health Care Education/Training Program
DX: H81.10 Benign paroxysmal vertigo, unspecified ear (principal); R51.9 Headache, unspecified; Z86.73 Personal history of transient ischemic attack (TIA), and cerebral infarction without residual deficits
CPT/HCPCS: 70450; 80048; 85025; 93005; 96374; 96375; 99283; A4216

== ENCOUNTER 2023-08-11 21:50 | Emergency (ER) | payer MEDICAID, SELFPAY ==
[2023-08-11 21:51] VITALS: PULSE 150; RESP 35; TEMP 35.2; O2SAT 100; BMI 31.1
--- NOTE | 2023-08-11 22:15 | ED.RN ---
Pt became upset with the nurses in ED, pt got dressed and walked out of the ED and out of EMS doors. This RN was notified of patients departure by security. This RN and the HRO followed patient outside and down the ramp towards [facility]. Patient was asked multiple times to come back to ED and explained that she has an IV that needs to come out plus she needs a ride due to the alcohol she has been drinking. PT started yelling that she wont come back and that we cant make her, she ripped out her IV and threw it on the ground. Pt was bleeding all down her arm and onto the ground. This RN instructed patient to come back to ED and let me clean her up. Pt still screaming at staff. HRO explained that the patient cant make that decision and that he can enforce that she come back to the ED but would rather who do it on her own. Pt finally agreed to come back to ED, she was assisted into a wheelchair and brought back to the ED in room 2 where she started. This RN apologized for the staff that upset her, this RN cleaned the blood off the patient and placed a clean, dry dressing on the site. Dr Davalos arrived at bedside for her assessment. Patient states she just wants to go home, this RN attempts to convince patient that she is already here and to let us help her. Pt agrees to bloodwork and medications. Pt agrees to let this RN insert another IV. Pt tolerated well. Primary nurse updated. Pt states she needs to get out of here soon because she works at 0[employer], pt states she will not stay here. This RN instructed patient to relax and we would talk about that when all her results were in. This RN explained to patient that we can not force her to stay and that she will just require a sober adult to take her home.
--- NOTE | 2023-08-11 22:25 | EKG12_ITS ---
Test Reason : DYSRHYTHMIA Blood Pressure : / mmHG Vent. Rate : 099 BPM Atrial Rate : 099 BPM P-R Int : 142 ms QRS Dur : 080 ms QT Int : 366 ms P-R-T Axes : 024 001 016 degrees QTc Int : 469 ms Normal sinus rhythm Nonspecific ST abnormality Abnormal ECG Confirmed by DARIUSZ MURILLO, FELICIA ([id number]), editor at large RANDY DUMONT ([id number]) on 08/13/2023 9:03:13 AM Referred By: Confirmed By:FELICIA ARZOLA MD
--- NOTE | 2023-08-11 22:27 | EX.ED.DYSGE1 ---
HPI History of Present Illness Chief Complaint: Anxiety Narrative Narrative: 58-year-old female past medical history of diabetes, anxiety, PTSD, presents via EMS with multiple somatic complaints. She states that her insurance just dropped me and she has not had her 3 different types of insulin to control her diabetes for the last 8 weeks. She states has been drinking milk to help control her blood sugars but they have been running in the 400s to 500s. Additionally, she has been trying to control her panic attacks that she has been having repeatedly, for which she takes lorazepam, 0.1 mg as a small dose. Per EMS, she has been drinking alcohol this evening. Her history and physical is mildly limited to intoxication, and additionally, she states that an RN was rude to her upon arrival, so she is fixated on this. [facility] Medical History Acute otitis externa of left ear Acute sinusitis, unspecified Arthritis Asthma Asthma Bronchitis Cardiology follow-up encounter Chest pain Contusion of right ankle Contusion of right foot Depressed Diabetes Diabetes mellitus type II, controlled Difficulty swallowing Dyspnea on exertion Easy bruising Episode of syncope Essential hypertension SACHA (generalized anxiety disorder) Gastric reflux GERD (gastroesophageal reflux disease) GI bleed Hemorrhoids High cholesterol History of colon polyps History of diabetes mellitus History of echocardiogram History of stress test Hyperlipidemia Injury of head and neck Marijuana use Nausea & vomiting Near syncope Non-smoker Orthostatic hypotension Pneumonia Positive PPD, treated PTSD (post-traumatic stress disorder) Restless legs RSD (reflex sympathetic dystrophy) Shoulder pain Statin intolerance Strain of right hip Strain of unspecified muscle, fascia and tendon at shoulder and upper arm level, right arm, initial encounter TIA (transient ischemic attack) Urinary tract infection with hematuria Wears glasses Home Medications omeprazole 20 mg capsule,delayed release 20 mg PO DAILY GERD 01/04/20 [History Last Taken Unknown] ezetimibe 10 mg tablet 10 mg PO DAILY CHOLESTEROL #90 tabs 04/19/21 [Rx Last Taken Unknown] diphenhydramine HCl 25 mg capsule 25 mg PO DAILY PRN allergy symptoms 03/28/22 [History Last Taken Unknown] triamcinolone acetonide 0.1 % topical cream 1 applic topical BID #30 grams 05/27/22 [Rx Last Taken Unknown] cyclobenzaprine 10 mg tablet 10 mg PO TID PRN Muscle Spasm #20 TABLETS 09/30/22 [Rx Last Taken Unknown] duloxetine 60 mg capsule,delayed release 120 mg (2 x 60 mg) PO DAILY ANXIETY 30 days #60 caps 10/15/22 [Rx Last Taken Unknown] glimepiride 2 mg tablet 2 mg PO DAILY #90 tabs 11/27/22 [Rx Last Taken Unknown] albuterol sulfate 90 mcg/actuation aerosol inhaler (Ventolin HFA) 2 puff inhalation Q4H PRN PRN Wheezing or shortness of breath #1 inh 01/04/23 [Rx Last Taken Unknown] potassium chloride 20 mEq tablet,extended release(part/cryst) 20 meq PO BID #10 tabs 01/04/23 [Rx Last Taken Unknown] flash glucose sensor (FreeStyle Tanmay 2 Sensor kit) #2 ea 02/27/23 [Rx Last Taken Unknown] insulin glargine 100 unit/mL (3 mL) subcutaneous pen (Basaglar KwikPen U-100 Insulin) 25 unit (0.25 mL) subcut QAM #15 mL 02/27/23 [Rx Last Taken Unknown] metronidazole 500 mg tablet 500 mg PO BID 02/27/23 [History Last Taken Unknown] pen needle, diabetic 32 gauge x 5/32 (BD Ultra-Fine Thais Pen Needle) #100 ea 03/05/23 [Rx Last Taken Unknown] alcohol swabs 1 pad topical 4X/DAY #200 ea 04/28/23 [Rx Last Taken Unknown] furosemide 40 mg tablet 40 mg PO DAILY PRN 04/28/23 [History Last Taken Unknown] insulin aspart U-100 100 unit/mL (3 mL) subcutaneous pen (Novolog FlexPen U-100 Insulin aspart) 15 unit (0.15 mL) subcut TID #13.5 mL 04/28/23 [Rx Last Taken Unknown] losartan 25 mg tablet 25 mg PO DAILY #30 tabs 04/28/23 [Rx Last Taken Unknown] ondansetron 4 mg disintegrating tablet 4 mg PO Q6H PRN nausea and vomiting #10 tabs 04/28/23 [Rx Last Taken Unknown] pen needle, diabetic 32 gauge x 5/32 (BD Ultra-Fine Thais Pen Needle) #100 ea 04/28/23 [Rx Last Taken Unknown] lorazepam 1 mg tablet 0.5 mg (1/2 x 1 mg) PO DAILY PRN Anxiety #30 tabs 05/14/23 [Rx Last Taken Unknown] meclizine 25 mg tablet 25 mg PO TID PRN dizziness #30 tabs 05/23/23 [Rx Last Taken Unknown] allopurinol 100 mg tablet 100 mg PO DAILY 06/18/23 [History Last Taken Unknown] dulaglutide 0.75 mg/0.5 mL subcutaneous pen injector (Trulicity) 0.75 mg (0.5 mL) subcut QWEEK #2 mL 06/23/23 [Rx Last Taken Unknown] Allergy/AdvReac Type Severity Reaction Status Date / Time adalimumab [From Humira] Allergy Unknown Verified 08/11/23 21:50 amoxicillin trihydrate Allergy Unknown Verified 08/11/23 21:50 [From Augmentin] codeine Allergy Itching Verified 08/11/23 21:50 etanercept [From Enbrel] Allergy Unknown Verified 08/11/23 21:50 leflunomide [From Arava] Allergy Other Verified 08/11/23 21:50 metoprolol tartrate Allergy Unknown Verified 08/11/23 21:50 [From Lopressor] morphine sulfate Allergy Unknown Verified 08/11/23 21:50 [From Embeda] naltrexone HCl [From Embeda] Allergy Unknown Verified 08/11/23 21:50 oxymorphone [Oxymorphone] Allergy Unknown Verified 08/11/23 21:50 pioglitazone HCl [From Actos] Allergy Other Verified 08/11/23 21:50 pneumococcal 23-valent Allergy Unknown Verified 08/11/23 21:50 polysacchari [From Pneumovax 23] potassium clavulanate Allergy Unknown Verified 08/11/23 21:50 [From Augmentin] Fsivetm-QDB-ScH Reductase Allergy Unknown Verified 08/11/23 21:50 Inhibitor [Dnsahqg-Yaj-Uoc Reductase Inhibitor] Sulfa (Sulfonamide Allergy Anaphylaxis Verified 08/11/23 21:50 Antibiotics) sulfamethoxazole Allergy Anaphylaxis Verified 08/11/23 21:50 [From Bactrim] telithromycin [From Ketek] Allergy Unknown Verified 08/11/23 21:50 tramadol HCl [From Ultram] Allergy Unknown Verified 08/11/23 21:50 trimethoprim [From Bactrim] Allergy Anaphylaxis Verified 08/11/23 21:50 Family History Father Diabetes Hypertension Mother Diabetes Hypertension Colon polyp Other Cancer Surgical History History of appendectomy History of arthroscopy of right knee History of colonoscopy History of hysterectomy Hx of shoulder surgery Social History household members: none Smoking Status: Never smoker alcohol intake: current alcohol intake frequency: 0-2 drinks per day Alcohol type: hard liquor substance use type: other details: Gummies ROS ROS ED ROS Narrative Constitutional: No fever, no chills. Blood sugars in 400s to 500s. HEENT: No sore throat. No neck pain. No loss of vision. No rhinorrhea. Cardiovascular: No chest pain. No palpitations. No pedal edema. Respiratory: No cough, no shortness of breath. Abdominal: No abdominal pain. No nausea. No vomiting. Genitourinary: No dysuria. No hematuria. Musculoskeletal: No myalgias. No arthralgias. Neurologic: No headaches. No dizziness. No lightheadedness. Skin: No rash. No change in color. Psychiatric: No depression. Positive anxiety. No panic attacks. EXAM Physical Exam Narrative Exam Narrative: Afebrile. Vital signs noted. Patient intoxicated, sitting on the edge of the bed. HEENT: Normocephalic. Atraumatic. PERRL, EOMI. Neck soft and supple. No point tenderness or step off. Cardiovascular: Regular rate and rhythm. No murmurs, rubs, or gallops appreciated. Respiratory: No tachypnea. Lungs clear to auscultation bilaterally. Gastrointestinal: Abdomen soft, nontender, with normoactive bowel sounds. No rebound or guarding. Neurological: Awake. Alert. Nonfocal, nonlateralizing. Skin: No rash. Normal color. No pallor. Musculoskeletal: No pedal edema. Full range of motion extremities. Psychiatric: Almost tearful on examination. Expresses frustration. Const Vital Signs: 08/11/23 21:51 08/11/23 22:29 08/12/23 00:13 Temperature 95.3 F L Temperature Source Temporal Pulse Rate 150 H 107 H 95 Respiratory Rate 35 H 30 H 16 Blood Pressure 183/108 H 145/92 H Blood Pressure Mean 133 109 Pulse Ox 100 98 98 Oxygen Delivery Method Room Air Nasal Cannula Room Air Oxygen Flow Rate (L/min) 2 08/12/23 00:16 08/12/23 00:20 08/12/23 00:30 Temperature Temperature Source Pulse Rate 93 91 Respiratory Rate 21 H 20 H Blood Pressure 140/82 H Blood Pressure Mean 97 Pulse Ox 94 92 Oxygen Delivery Method Oxygen Flow Rate (L/min) 08/12/23 00:40 08/12/23 00:45 08/12/23 00:50 Temperature Temperature Source Pulse Rate 88 92 Respiratory Rate 18 18 Blood Pressure 147/86 H Blood Pressure Mean 105 Pulse Ox 95 96 Oxygen Delivery Method Room Air Oxygen Flow Rate (L/min) 08/12/23 01:00 08/12/23 01:10 08/12/23 01:15 Temperature Temperature Source Pulse Rate 90 94 Respiratory Rate 22 H 20 H Blood Pressure 144/80 H 124/78 H Blood Pressure Mean 99 93 Pulse Ox 97 Oxygen Delivery Method Room Air Room Air Oxygen Flow Rate (L/min) 08/12/23 01:20 08/12/23 01:30 08/12/23 01:40 Temperature Temperature Source Pulse Rate 87 86 84 Respiratory Rate 17 16 18 Blood Pressure 130/85 H Blood Pressure Mean 101 Pulse Ox 91 Oxygen Delivery Method Room Air Oxygen Flow Rate (L/min) 08/12/23 01:45 08/12/23 01:50 08/12/23 02:00 Temperature Temperature Source Pulse Rate 86 84 Respiratory Rate 19 H 17 Blood Pressure 140/79 H 136/74 H Blood Pressure Mean 96 93 Pulse Ox 93 92 Oxygen Delivery Method Room Air Oxygen Flow Rate (L/min) 08/12/23 02:10 08/12/23 02:15 08/12/23 02:20 Temperature Temperature Source Pulse Rate 86 81 83 Respiratory Rate 18 16 13 Blood Pressure 131/83 H Blood Pressure Mean 100 Pulse Ox 91 85 91 Oxygen Delivery Method Room Air Oxygen Flow Rate (L/min) 08/12/23 02:30 08/12/23 02:40 08/12/23 02:45 Temperature Temperature Source Pulse Rate 84 86 Respiratory Rate 16 19 H Blood Pressure 141/83 H 146/94 H Blood Pressure Mean 98 108 Pulse Ox 87 Oxygen Delivery Method Oxygen Flow Rate (L/min) 08/12/23 02:50 08/12/23 03:00 08/12/23 03:10 Temperature Temperature Source Pulse Rate 87 85 86 Respiratory Rate 19 H 20 H 15 Blood Pressure 159/97 H Blood Pressure Mean 115 Pulse Ox 95 96 96 Oxygen Delivery Method Room Air Oxygen Flow Rate (L/min) MDM MDM MDM Narrative Medical decision making narrative: Concern would be for diabetic ketoacidosis given that she has reported blood sugars that are elevated and she has been without her insulin for the last 8 weeks. As her history and physical is also limited secondary to her intoxication, she will be given 1 mg for her panic attack, but comprehensive workup will be pursued. I also suspect alcohol intoxication. She has been belligerent with nursing staff. I reviewed her EKG and interpreted independently as normal sinus rhythm at 99 bpm without ectopy or acute ST changes. No STEMI. I reviewed her laboratory work and she has slightly elevated white count of 11.2 which I think is nonspecific, hemoglobin normal at 14.4, hematocrit 43.2, platelet count normal at 446. Her CMP does show sodium normal at 136 with potassium 3.7 and chloride 104. Carbon dioxide is low at 15 which may be secondary to hyperventilation. Anion gap is slightly elevated at 17, and glucose elevated at 515. Her creatinine is normal at 0.8 with a BUN of 11. I have lower concern for diabetic ketoacidosis as her acetone level is negative. Ethyl alcohol is elevated at 230, consistent with acute alcohol intoxication. She was bolused 2 L of normal saline intravenously. Upon repeat blood sugar check, it is lower in the 300s. Urine for drugs of abuse is positive for cannabinoids. At approximately 3 10 in the morning, she told the RN that her neighbor will pick her up and she wants to go home. I do not feel that she is a mental health risk, and she states that she does not want detox because she was drinking because she was in pain. I do not feel that she requires a 72-hour hold. She is frustrated because she states that they want her to work and she even cut back on her hours, but they have taken her off her insurance. I feel she can be discharged to follow-up with her set key driver and/your primary care provider to see if there are any programs that can help her get her medications. Disposition is discharged home in stable condition. History & Record Review Discussion w/independent historian: Patient Additional record(s) reviewed:: Prior ED visit Lab Data Attestation: I reviewed the patient's lab results. Labs: Laboratory Results - last 24 hr 08/11/23 08/11/23 08/11/23 21:55 22:25 22:53 WBC 11.2 H RBC 4.88 Hgb 14.4 Hct 43.2 MCV 88.5 MCH 29.5 MCHC 33.3 RDW Std Deviation 39.2 RDW Coeff of Daiana 12.1 Plt Count 446 MPV 9.2 Immature Gran % (Auto) 0.400 Neut % (Auto) 44.5 L Lymph % (Auto) 43.2 H Gladwin % (Auto) 9.3 Eos % (Auto) 2.0 Baso % (Auto) 0.6 Absolute Neuts (auto) 5.0 Absolute Lymphs (auto) 4.85 H Nucleated RBC % 0 Sodium 136 Potassium 3.7 Chloride 104 Carbon Dioxide 15.0 L Anion Gap 17 H BUN 11 Creatinine 0.88 Estim Creat Clear Calc 71.15 Est GFR (MDRD) Af Amer 85 Est GFR (MDRD) Non-Af 70 BUN/Creatinine Ratio 12.5 Glucose 515 H* Calcium 8.9 Total Bilirubin 0.20 AST 43 H ALT 76 H Alkaline Phosphatase 145 H Total Protein 7.9 Albumin 3.6 Globulin 4.3 H Albumin/Globulin Ratio 0.8 L Urine Opiates Screen Urine Methadone Screen Ur Barbiturates Screen Ur Phencyclidine Scrn Ur Amphetamines Screen MDMA (Ecstasy) Screen U Benzodiazepines Scrn Urine Cocaine Screen U Cannabinoids Screen Ur Drug Screen Comment Ethyl Alcohol 230.0 Acetone Level NEGATIVE POC Glucose 428 H 08/11/23 08/12/23 08/12/23 22:54 01:09 02:40 WBC RBC Hgb Hct MCV MCH MCHC RDW Std Deviation RDW Coeff of Daiana Plt Count MPV Immature Gran % (Auto) Neut % (Auto) Lymph % (Auto) Gladwin % (Auto) Eos % (Auto) Baso % (Auto) Absolute Neuts (auto) Absolute Lymphs (auto) Nucleated RBC % Sodium Potassium Chloride Carbon Dioxide Anion Gap BUN Creatinine Estim Creat Clear Calc Est GFR (MDRD) Af Amer Est GFR (MDRD) Non-Af BUN/Creatinine Ratio Glucose Calcium Total Bilirubin AST ALT Alkaline Phosphatase Total Protein Albumin Globulin Albumin/Globulin Ratio Urine Opiates Screen NEGATIVE Urine Methadone Screen NEGATIVE Ur Barbiturates Screen NEGATIVE Ur Phencyclidine Scrn NEGATIVE Ur Amphetamines Screen NEGATIVE MDMA (Ecstasy) Screen NEGATIVE U Benzodiazepines Scrn NEGATIVE Urine Cocaine Screen NEGATIVE U Cannabinoids Screen POSITIVE H Ur Drug Screen Comment Ethyl Alcohol Acetone Level POC Glucose 307 H 308 H Discharge Plan Triage Chief Complaint: Anxiety ED Provider: Madhav Davalos Dx/Rx/DC Orders Clinical Impression: Alcohol intoxication, Has run out of medications, Hyperglycemia Instructions: ED Diabetic Hyperglycemia, ED Alcohol Intoxication Prescriptions: No Action triamcinolone acetonide 0.1 % cream 1 applic topical BID Qty: 30 0RF Rx Instructions: Apply to affected area on left upper shoulder, twice daily x10 days then stop. duloxetine 60 mg capsule,delayed release(DR/EC) 120 mg PO DAILY 30 Days Qty: 60 2RF glimepiride 2 mg tablet 2 mg PO DAILY Qty: 90 1RF metronidazole 500 mg tablet 500 mg PO BID insulin glargine [Basaglar KwikPen U-100 Insulin] 100 unit/mL (3 mL) insulin pen 25 unit subcut QAM Qty: 15 1RF (DME) FreeStyle Tanmay 2 Sensor Kit See Rx Instructions .Route Qty: 2 5RF Rx Instructions: 1 sensor q 14 days furosemide 40 mg tablet 40 mg PO DAILY PRN insulin aspart U-100 [Novolog FlexPen U-100 Insulin] 100 unit/mL (3 mL) insulin pen 15 unit subcut TID Qty: 13.5 5RF losartan 25 mg tablet 25 mg PO DAILY Qty: 30 5RF alcohol swabs Pads, Medicated 1 pad topical 4X/DAY Qty: 200 5RF (DME) pen needle, diabetic [BD Ultra-Fine Thais Pen Needle] 32 gauge x 5/32 needle See Rx Instructions .Route Qty: 100 5RF Rx Instructions: 4x/day allopurinol 100 mg tablet 100 mg PO DAILY omeprazole 20 mg capsule,delayed release(DR/EC) 20 mg PO DAILY Patient Comments: gastric reflux diphenhydramine HCl 25 mg capsule 25 mg PO DAILY PRN (Reason: allergy symptoms) ondansetron 4 mg tablet,disintegrating 4 mg PO Q6H PRN (Reason: nausea and vomiting) Qty: 10 0RF cyclobenzaprine 10 mg tablet 10 mg PO TID PRN (Reason: Muscle Spasm) Qty: 20 0RF potassium chloride 20 mEq tablet,ER particles/crystals 20 meq PO BID Qty: 10 0RF albuterol sulfate [Ventolin HFA] 90 mcg/actuation HFA aerosol inhaler 2 puff inhalation Q4H PRN PRN (Reason: Wheezing or shortness of breath) Qty: 1 0RF meclizine 25 mg tablet 25 mg PO TID PRN (Reason: dizziness) Qty: 30 0RF ezetimibe 10 mg tablet 10 mg PO DAILY Qty: 90 3RF (DME) pen needle, diabetic [BD Ultra-Fine Thais Pen Needle] 32 gauge x 5/32 needle See Rx Instructions .Route Qty: 100 5RF Rx Instructions: daily lorazepam 1 mg tablet 0.5 mg PO DAILY PRN (Reason: Anxiety) Qty: 30 1RF Trulicity 0.75 mg/0.5 mL pen injector 0.75 mg subcut QWEEK Qty: 2 2RF Primary Care Provider: Chantale Palm NP Referrals: Chantale Palm NP, STATISTICAL METHODS PROFESSOR-C [Primary Care Provider] - As soon as possible Activity Restrictions/Additional Instructions: Follow-up with your primary care provider or set key driver as soon as possible to see about getting your medications refilled. Disposition Disposition: Home, Self Care Discharge Date/Time: 08/12/23 03:25
[2023-08-11 22:29] VITALS: BP 183/108; PULSE 107; RESP 30; O2SAT 98
[2023-08-11 22:40] LABS: Absolute Lymphocyte Count 4.85 X10^3/uL (0.83-4.51); Basophil# 0.07 X10^3/uL; Basophil% 0.6 % (0-1); Eosinophil# 0.23 X10^3/uL; Hematocrit 43.2 % (37-47); Hemoglobin 14.4 g/dL (12.0-15.0); Lymphocyte # 4.85 X10^3/ul (0.83-4.51); Lymphocyte % 43.2 % (19-41); Mean Corp Hgb Conc 33.3 g/dL (32-36); Mean Corpuscular Hgb 29.5 pg (27.0-32.0); Mean Corpuscular Volume 88.5 fL (81-99); Mean Platelet Vol. 9.2 fl (6.2-12.0); Monocyte# 1.05 X10^3/uL; Monocyte% 9.3 % (0-10); NRBC Flagged by Analyzer 0 % (0-5); Neutrophil # 4.99 X10^3/uL (2.7-7.7); Neutrophil % 44.5 % (47-70); Platelet Count 446 K/mm3 (150-450); RBC Distribution Width CV 12.1 % (11.6-14.6); RBC Distribution Width SD 39.2 fl (35.1-43.9); Red Blood Count 4.88 M/mm3 (4.2-5.4); White Blood Count 11.2 K/mm3 (4.4-11.0)
[2023-08-11] MEDS: 0.9% Normal Saline (1000mL) 1,000 ML 999 ML IV (22:44)
[2023-08-11] MEDS: LORazepam 2 MG/ML Syringe 1 MG IV (22:44)
[2023-08-11 23:10] LABS: Bedside Glucose 428 mg/dL (74-106)
[2023-08-11 23:13] LABS: ALB/GLOB Ratio 0.8 RATIO (0.9-2.4); AST(SGOT) 43 U/L (15-37); Alanine Aminotransfer ALT/SGPT 76 U/L (13-56); Albumin, Serum 3.6 g/dL (3.2-5.0); Alkaline Phosphatase 145 U/L (45-117); Anion Gap 17 (5-15); BUN 11 mg/dL (7-18); BUN/Creat Ratio 12.5 RATIO (10-20); Calcium,Total 8.9 mg/dL (8.5-10.1); Chloride 104 mmol/L (98-107); Creatinine, Serum 0.88 mg/dL (0.55-1.02); EST Glomerular Filtration Rate 70 mL/min (>60); Est Glom Filt Rate - Afr Amer 85 mL/min (>60); Estimated Creatinine Clearance 71.15 ml/min; Globulin 4.3 g/dL (2.2-4.2); Glucose 515 mg/dL (74-106); Potassium 3.7 mmol/L (3.5-5.1); Protein, Total 7.9 g/dL (6.4-8.2); Sodium Level 136 mmol/L (136-145)
[2023-08-11 23:50] LABS: Amphetamine Urine VISTA NEGATIVE (<1000 ng/mL); Barbiturate Urine VISTA NEGATIVE (< 200 ng/mL); Benzodiazepine Urine VISTA NEGATIVE (< 200 ng/mL); Cocaine Urine VISTA NEGATIVE (< 300 ng/mL); Ecstacy Urine VISTA NEGATIVE (< 500 ng/mL); Methadone Urine VISTA NEGATIVE (< 300 ng/mL); PCP Urine VISTA NEGATIVE (< 25 ng/mL); THC Urine VISTA POSITIVE (< 50 ng/mL); Vista UDS pH Range 6
--- OUTSIDE RECORDS SUMMARY | 2023-08-11 23:57 | XMS RPT_ITS | CCD ---
Author Name Unknown Address [address] [place] [address] Organization [facility] Care Team Providers Care Equipment Service Lead Name Role Phone NERY Unger RN, Rita Guadalupe Unavailable Unavailjohnny Unger RN RN, Rita Guadalupe Unavailable Unavailjohnny Pena MD, Miguel Osorio Unavailable [phone] Ned Silveira Unavailable Unavailable PROVIDER, UNKNOWN Unavailable Unavailable No, PCP Unavailable Unavailable PROVIDER, UNKNOWN Unavailable Unavailable No, PCP Unavailable Unavailable Ned Silveira Unavailable Unavailable NERY Unger RN, Rita Guadalupe Unavailable Unavailjohnny Pichardo MD, Karl Griffiths Primary Care Provider Kylee MURILLO, Karl Griffiths Primary Care Provider [phone] LJ BOURNE Primary Care Physi justus Javed PT, Rosa Unavailable Unavailable KARL PICHARDO Primary Care Unavailable ANDRY DUNNE Referring Unavailable ANDRY DUNNE Attending Unavailable KARL PICHARDO Primary Care Unavailable SAM JONES Referring Unavailable SAM JONES Attending Unavailable SAM JONES Referring Unavailable SAM JONES Attending Unavailable KARL PICHARDO Primary Care Unavailable RODOLFO BISHOP Attending Unavailable SAM JONES Referring Unavailable KARL PICHARDO Primary Care Unavailable NICKIE REZA Attending Unavailable MARU ENCISO Primary Care Unavailable SLOAN MUJICA Admitting Unavailable SLOAN MUJICA Attending Unavailable NICKIE REZA Referring Unavailable ALEXANDREA HOLLIDAY Consulting Unavailable LJ BOURNE Primary Care Un available BRAULIO COMPRESSOR OPERATOR PORTABLE-CIVIL DESIGN SPECIALIST, LJ A Attending Un available BRAULIO COMPRESSOR OPERATOR PORTABLE-CIVIL DESIGN SPECIALIST, LJ A Primary Care Un available BRAULIO COMPRESSOR OPERATOR PORTABLE-CIVIL DESIGN SPECIALIST, LJ A Attending Un available BRAULIO COMPRESSOR OPERATOR PORTABLE-CIVIL DESIGN SPECIALIST, LJ A Primary Care Un available BRAULIO COMPRESSOR OPERATOR PORTABLE-CIVIL DESIGN SPECIALIST, LJ A Attending Un available BRAULIO COMPRESSOR OPERATOR PORTABLE-CIVIL DESIGN SPECIALIST, LJ A Primary Care Un available BRAULIO COMPRESSOR OPERATOR PORTABLE-CIVIL DESIGN SPECIALIST, LJ A Attending Un available WALL COMPRESSOR OPERATOR PORTABLE-CIVIL DESIGN SPECIALIST, PIPER Melendez Attending Javier johnson BRAULIO COMPRESSOR OPERATOR PORTABLE-CIVIL DESIGN SPECIALIST, LJ A Primary Care Un available BRAULIO COMPRESSOR OPERATOR PORTABLE-CIVIL DESIGN SPECIALIST, LJ A Primary Care Un available BRAULIO COMPRESSOR OPERATOR PORTABLE-CIVIL DESIGN SPECIALIST, LJ A Attending Un available BRAULIO COMPRESSOR OPERATOR PORTABLE-CIVIL DESIGN SPECIALIST, LJ A Primary Care Un available BRAULIO COMPRESSOR OPERATOR PORTABLE-CIVIL DESIGN SPECIALIST, LJ A Attending Un available BRAULIO COMPRESSOR OPERATOR PORTABLE-CIVIL DESIGN SPECIALIST, LJ A Primary Care Un available JUDE DO, DR FELIX Attending Unavailable BRAULIO COMPRESSOR OPERATOR PORTABLE-CIVIL DESIGN SPECIALIST, LJ A Primary Care Un available JUDE DO, DR FELIX Attending Unavailable Allergies Allergy Classification Reported Allergen(s) Allergy Type Date of Onset Reaction(s) Facility (14 sources) Acetaminophen; Translations: [acetaminophen] Drug Allergy 12-01-2013 [facility] Work Phone: Medications Current Medications Medication Drug Class(es) Dates Sig (Normalized) Sig (Original) acetaminophen 325 mg oral capsule (1 source) Start: 09-30-2020 take 1 capsule by mouth every four hours as needed Tylenol 325 mg oral capsule Dose : 650 mg =, Oral, q4h, PRN Temperature greater than 38.6 degrees C, 0 Refill(s) Start Date: 09/30/20 Status: Ordered Acidophilus Probiotic Blend oral capsule (2 sources) Start: 04-30-2023 End: 04-24-2024 take 1 capsule by mouth once daily Acidophilus Probiotic Blend oral capsule Dose = 1 cap(s), Oral, qDay, # 30 cap(s), 11 Refill(s), Pharmacy: [facility], Nausea Bloating, 175, cm, 03/26/23 14:42:00 EDT, Height, kg, 04/30/23 13:32:00 EDT, Dosing Weight Start Date: 04/30/23 Stop Date: 04/24/24 Status: Ordered cider vinegar oral tablets (1 source) Start: 09-20-2020 take 1 capsule by mouth once daily cider vinegar oral tablets 1 capsule, Oral, Daily, 0 Refill(s) Start Date: 09/20/20 Status: Ordered Clobetasol (1 source) Corticosteroid Start: 02-18-2023 clobetasol 0.05% topical cream Apply 1 bautista, Topical, BID, # 15 gram(s), 0 Refill(s), Pharmacy: [id number], Cream, 172.7, cm, 01/10/23 15:40:00 EDT, Height, 84.4 Start Date: 02/18/23 Status: Ordered colchicine 0.6 mg oral capsule (1 source) Start: 06-06-2023 colchicine 0.6 mg oral capsule See Instructions, Take 2 tabs as first dose, then 1 tab one hour later, # 3 tab(s), 0 Refill(s), Pharmacy: [facility], Gout flare, 175, cm, 03/26/23 14:42:00 EDT, Height, kg, 04/30/23 13:32:00 EDT, Dosing Weight Start Date: 06/06/23 Status: Ordered Continuous Glucose Monitoring System (5 sources) Start: 05-29-2023 Continuous Glucose Monitoring System See Instructions, Freestyle Tanmay 2 sensors for continuous glucose moitoring. #7 sensors for 90 day supply, # 7 EA, 0 Refill(s), Pharmacy: [facility], Uncontrolled diabetes mellitus with hypoglycemia, 175, cm, 03/26/23 14:42:00 EDT, Height, 90.7, kg, 04/30/23 13:32:00 EDT, Dosing Weight Start Date: 05/29/23 Status: Ordered Completed/Discontinued Medications Medication Drug Class(es) Dates Sig (Normalized) Sig (Original) acetaminophen 325 mg / oxyCODONE hydrochloride 5 mg oral tablet (7 sources) Opioid Agonist Start: 05-02-2021 End: 11-22-2021 take 1 tablet by mouth every eight hours as needed for pain oxyCODONE-acetami nophen (PERCOCET) 5-325 mg tablet Indications: Traumatic complete tear of right rotator cuff, subsequent encounter Take 1 tablet by mouth every 8 hours as needed for pain. for pain. 20 tablet 0 11/22/2021 Active Problems Active Problems Problem Classification Problem Date Documented Date Episodic/Chronic Acute and unspecified renal failure (1 source) Acute kidney failure, unspecified; Translations: [STEFANO (acute kidney injury) (HCC)] Onset: 10-30-2022 Episodic Allergic reactions (7 sources) Allergy status to other drugs, medicaments and biological substances status; Translations: [Anaphylactic shock, unspecified, initial encounter] Onset: 02-20-2017 Episodic Anxiety disorders (3 sources) Mixed anxiety and depressive disorder; Translations: [Other specified anxiety disorders] Onset: 12-18-2016 12-18-2016 Chronic Anxiety disorders (6 sources) Panic disorder without agoraphobia; Translations: [Panic disorder [episodic paroxysmal anxiety]] 12-28-2010 Chronic Asthma (9 sources) Asthma; Translations: [Mild intermittent asthma] Onset: 01-30-2006 12-18-2016 Chronic Coronary atherosclerosis and other heart disease (5 sources) Coronary arteriosclerosis 12-21-2022 Chronic Past or Other Problems Problem Classification Problem Date Documented Da te Episodic/Chronic Blindness and vision defects (9 sources) Disorder of vision; Translations: [Visual disturbance] Onset: 12-18-2016 12-18-2016 Episodic Coagulation and hemorrhagic disorders (6 sources) Bleeds easily; Translations: [Hemorrhagic condition, unspecified] Onset: 04-11-2014 04-11-2014 Episodic Gastrointestinal hemorrhage (6 sources) Hemorrhage of rectum and anus; Translations: [Hemorrhage of anus and rectum] Onset: 08-02-2010 12-28-2010 Episodic Headache; including migraine (3 sources) Headache; Translations: [Headache] Onset: 12-18-2016 12-18-2016 Episodic Hemorrhoids (6 sources) Internal hemorrhoids; Translations: [Other hemorrhoids] Onset: 09-09-2008 12-28-2010 Episodic Nonmalignant breast conditions (3 sources) Breast lump; Translations: [Unspecified lump in breast] Onset: 12-18-2016 12-18-2016 Episodic Other aftercare (2 sources) 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; Translations: [group home (current) use of insulin] Onset: 02-20-2017 Episodic Other and unspecified benign neoplasm (3 sources) History of polyp of colon; Translations: [Personal history of colonic polyps] Onset: 12-18-2016 12-18-2016 Episodic Other connective tissue disease (9 sources) Rotator cuff arthropathy of right shoulder; Translations: [Unspecified rotator cuff tear or rupture of right shoulder, not specified as traumatic] Onset: 11-22-2021 Episodic Other connective tissue disease (6 sources) Lateral epicondylitis of right humerus; Translations: [Lateral epicondylitis, right elbow] Onset: 12-20-2015 12-20-2015 Episodic Other connective tissue disease (6 sources) History of cervical spine fusion; Translations: [Arthrodesis status] Onset: 04-25-2021 04-25-2021 Episodic Other connective tissue disease (6 sources) Bilateral plantar fasciitis; Translations: [Plantar fascial fibromatosis] Onset: 07-17-2021 07-17-2021 Episodic Other connective tissue disease (7 sources) Left rotator cuff syndrome; Translations: [Unspecified rotator cuff tear or rupture of left shoulder, not specified as traumatic] Onset: 11-22-2021 11-22-2021 Episodic Other gastrointestinal disorders (6 sources) Diarrhea; Translations: [Diarrhea, unspecified] Onset: 08-02-2010 12-28-2010 Episodic Other injuries and conditions due to external causes (3 sources) Fracture of bone; Translations: [Other injury of unspecified body region] Onset: 12-18-2016 12-18-2016 Episodic Other liver diseases (6 sources) Liver mass; Translations: [Hepatomegaly, not elsewhere classified] Onset: 04-16-2010 07-30-2021 Episodic Other nervous system disorders (2 sources) Other acute postprocedural pain; Translations: [Other acute postprocedural pain] Onset: 02-19-2017 Episodic Other non-traumatic joint disorders (4 sources) Pain in right shoulder; Translations: [Pain in unspecified shoulder] Onset: 02-19-2017 Episodic Pneumonia (except that caused by tuberculosis or sexually transmitted disease) (3 sources) Pneumonia; Translations: [Pneumonia, unspecified organism] Onset: 12-18-2016 12-18-2016 Episodic Sprains and strains (14 sources) Traumatic rupture of rotator cuff; Translations: [Strain of muscle(s) and tendon(s) of the rotator cuff of right shoulder, subsequent encounter] Onset: 01-05-2019 Episodic Unclassified (2 sources) Altered mental status, unspecified; Translations: [Altered mental status, unspecified] Onset: 02-20-2017 Episodic Results Test Name Value Interpretation Reference Range Facil ity Vital Signs Date Time Vital Sign Value Performing Clinician Facility 03-04-2022 16:02-0400 Body height 172.7 cm Andry Dunne MD Work Phone: [facility] 03-04-2022 16:02-0400 Body weight 79.38 kg Andry Dunne MD Work Phone: [facility] 12-18-2016 10:50-0400 BMI (Body Mass Index) 29.8 kg/m2 Rita Unger RN RN [facility] Work Phone: 12-18-2016 10:50-0400 Body Temperature 98.3 [degF] Rita Unger RN RN [facility] Work Phone: 12-18-2016 10:50-0400 Body Temperature 98.29 [degF] Rita Unger RN RN [facility] Work Phone: 12-18-2016 10:50-0400 Body weight 88.91 kg Rita Unger RN RN [facility] Work Phone: 12-18-2016 10:50-0400 Body weight 88.9 kg Rita Unger RN RN [facility] Work Phone: 12-18-2016 10:50-0400 BP Diastolic 91 mm[Hg] Rita Unger RN RN [facility] Work Phone: 12-18-2016 10:50-0400 BP Systolic 127 mm[Hg] Rita Unger RN RN [facility] Work Phone: 12-18-2016 10:50-0400 BSA (Body Surface Area) 2.03 m2 Rita Unger RN RN [facility] Work Phone: 12-18-2016 10:50-0400 Height 172.72 cm Rita Unger RN RN [facility] Work Phone: 12-18-2016 10:50-0400 Pulse (Heart Rate) 101 /min Rita Unger RN RN [facility] Work Phone: 12-18-2016 10:50-0400 Pulse Oximetry 99 % Rita Unger RN RN [facility] Work Phone: 12-18-2016 10:50-0400 Respiratory Rate 16 /min Rita Unger RN RN [facility] Work Phone: 12-18-2016 10:50-0400 Weight 88.91 kg Rita Unger RN RN [facility] Work Phone: 12-18-2016 10:50-0400 Weight 88.9 kg Rita Unger RN RN [facility] Work Phone: Encounters Encounter Date Encounter Type Care Provider Facility Start: 07-25-2023 End: 07-30-2023 ambulatory PIPER L MAE COMPRESSOR OPERATOR PORTABLE-CIVIL DESIGN SPECIALIST Facility:[facility] Start: 07-25-2023 End: 07-29-2023 Outreach Lab PIPER Melendez MAE COMPRESSOR OPERATOR PORTABLE-CIVIL DESIGN SPECIALIST [facility] Start: 05-14-2023 End: 05-19-2023 ambulatory JL RAMSEY COMPRESSOR OPERATOR PORTABLE-CIVIL DESIGN SPECIALIST Facility:[facility] Start: 05-14-2023 End: 05-18-2023 Outreach Lab LJ RAMSEY COMPRESSOR OPERATOR PORTABLE-CIVIL DESIGN SPECIALIST [facility] Start: 04-29-2023 End: 04-30-2023 ambulatory LJ RAMSEY COMPRESSOR OPERATOR PORTABLE-CIVIL DESIGN SPECIALIST Facility:[facility] Start: 02-18-2023 End: 02-19-2023 ambulatory LJ RAMSEY COMPRESSOR OPERATOR PORTABLE-CIVIL DESIGN SPECIALIST Facility:[facility] Start: 02-18-2023 End: 02-18-[address] ELVIRA ROQUE DO [facility] Start: 02-18-2023 End: 02-23-2023 ambulatory LJ RAMSEY COMPRESSOR OPERATOR PORTABLE-CIVIL DESIGN SPECIALIST Facility:[facility] Start: 02-18-2023 End: 02-23-2023 Encounter for general adult medical examination without abnormal findings DR ELVIRA ROQUE DO Facility:[facility] Start: 01-16-2023 End: 01-17-2023 ambulatory LJ RAMSEY COMPRESSOR OPERATOR PORTABLE-CIVIL DESIGN SPECIALIST Facility:[facility] Start: 01-16-2023 End: 01-16-2023 Patient encounter procedure LJ RAMSEY COMPRESSOR OPERATOR PORTABLE-CIVIL DESIGN SPECIALIST [facility] Start: 01-14-2023 End: 01-15-2023 ambulatory LJ A BRAULIO COMPRESSOR OPERATOR PORTABLE-CIVIL DESIGN SPECIALIST Facility:[facility] Start: 01-03-2023 End: 01-04-2023 ambulatory LJ RAMSEY COMPRESSOR OPERATOR PORTABLE-CIVIL DESIGN SPECIALIST Facility:[facility] Start: 01-03-2023 End: 01-03-2023 Patient encounter procedure LJ A BRAULIO COMPRESSOR OPERATOR PORTABLE-CIVIL DESIGN SPECIALIST [facility] Start: 11-06-2022 End: 11-07-2022 ambulatory LJ RAMSEY COMPRESSOR OPERATOR PORTABLE-CIVIL DESIGN SPECIALIST Facility:[facility] Start: 11-06-2022 End: 11-06-2022 Patient encounter procedure LJ RAMSEY COMPRESSOR OPERATOR PORTABLE-CIVIL DESIGN SPECIALIST [facility] Start: 10-31-2022 End: 11-01-2022 Evaluation and management of inpatient [place] Facility:[facility] Start: 10-30-2022 End: 10-31-2022 Emergency department patient visit NICKIE ANDREWS JUAQUIN Facility:[facility] Start: 03-05-2022 Orders Only Livia lux PA-C Work Phone: Orthopaedics Procedures Date Procedure Procedure Detail Performing Clinician Start: 03-04-2022 Arthrocentesis aspir &/inj major jt/bursa w/o us Andry Dunne MD Work Phone: Start: 11-22-2021 Arthrocentesis aspir &/inj major jt/bursa w/o us Sam Jones MD Work Phone: Start: 03-01-2021 Mammography Sam torres MD Work Phone: Start: 10-06-2020 Incision AND drainage E LAUREN RAMSEY COMPRESSOR OPERATOR PORTABLE-CIVIL DESIGN SPECIALIST Plan of Treatment Date Care Activity Detail Author Start: 04-20-2029 Colonoscopy COLONOSCOPY [facility] Start: 04-20-2029 COLORECTAL CANCER SCREENING COLORECTAL CANCER SCREENING [facility] Start: 03-26-2026 Urine microalbumin profile DTAP,TDAP,TD (3 - Td or Tdap) [facility] Start: 04-04-2022 Influenza vaccination [facility] Start: 03-01-2022 Mammography MAMMOGRAM [facility] Start: 08-28-2020 Hepatitis C antibody, confirmatory test DILATED RETINAL EXAM [facility] Start: 03-03-2020 HPV TESTING HPV TESTING [facility] Start: 03-03-2020 PAP TESTING PAP TESTING [facility] Start: 11-18-2019 Hemoglobin A1c/Hemoglobin.total in Blood HBA1C [facility] Start: 06-28-2017 3 comp foot exam completed DIABETIC FOOT EXAM [facility] Start: 06-24-2017 Hepatitis B surface antibody level LDL CHOLESTEROL [facility] Start: 03-26-2017 Hepatitis B screening URINE ALBUMIN:CREATININE RATIO [facility] Start: 02-13-2017 Adult depression screening assessment DEPRESSION SCREENING [facility] Start: 12-24-2016 End: 12-24-2016 Appointment Appointment [facility] Work Phone: Start: 12-24-2016 End: 12-24-2016 Appointment Appointment [facility] [employer] Work Phone: Start: 12-18-2016 End: 12-18-2016 Appointment Appointment [facility] [employer] Work Phone: Start: 12-18-2016 End: 12-18-2016 Appointment Appointment [facility] [employer] Work Phone: Start: 12-18-2016 End: 12-24-2016 Diagnostic colonoscopy Colonoscopy [facility] [employer] Work Phone: Start: 12-18-2016 End: 12-24-2016 Upper GI endoscopy, biopsy Upper gastrointestinal endoscopy; with biopsy [facility] Work Phone: Start: 2016 SHINGRIX VACCINE (1 of 2) SHINGRIX VACCINE (1 of 2) [facility] Start: 2011 COLOGUARD (FIT-DNA) COLOGUARD (FIT-DNA) [facility] Start: [address] COLONOGRAPHY [facility] Start: 2011 FECAL OCCULT BLOOD FECAL OCCULT BLOOD [facility] Start: 2011 SIGMOIDOSCOPY SIGMOIDOSCOPY [facility] Start: 05-04-2005 PNEUMOCOCCAL (2 - PCV) PNEUMOCOCCAL (2 - PCV) [facility] Start: 1984 ANNUAL PCP TEAM CHRONIC DISEASE VISIT ANNUAL PCP TEAM CHRONIC DISEASE VISIT [facility] Start: 1984 BP CONTROLLED (<130/80) BP CONTROLLED (<130/80) [facility] Start: 1984 SPIROMETRY SPIROMETRY [facility] Start: 1971 COVID-19 VACCINE (1) COVID-19 VACCINE (1) [facility] Start: 1966 COVID-19 VACCINE (#1) COVID-19 VACCINE (#1) [facility] Patient Education WEIGHT%20MANAGEMENT [facility] Work Phone: End: 12-29-2022 XR SHOULDER GENERAL 3V OR MORE AP/TRUE AP/OTHER RIGHT XR SHOULDER GENERAL 3V OR MORE AP/TRUE AP/OTHER RIGHT Radiology Routine Pain 1 Occurrences starting 11/29/2021 until 12/29/2022 [facility] Work Phone: Immunizations Immunization Date Immunization Notes Care Provider Orestes hayes 05-06-2017 influenza, injectabl e, quadrivalent, contains preservative aSm Jones MD Work Phone: [facility] 03-26-2016 tetanus toxoid, redu shreyas diphtheria toxoid, and acellular pertussis vaccine, adsorbed Sam Jones MD Work Phone: [facility] Work Phone: 06-02-2015 influenza, injectabl e, quadrivalent, contains preservative Sam Jones MD Work Phone: [facility] 07-13-2014 influenza, seasonal, injectable Sam Jones MD Work Phone: [facility] 05-06-2013 influenza virus vaccine, unspecified formulation Sam Jones MD Work Phone: [facility] 05-08-2012 influenza virus vaccine, unspecified formulation Sam Jones MD Work Phone: [facility] Work Phone: 10-22-2011 hepatitis B vaccine, adult dosage Sam Jones MD Work Phone: [facility] Work Phone: 04-26-2011 hepatitis B vaccine, adult dosage Sam Jones MD Work Phone: [facility] 04-26-2011 influenza virus vaccine, unspecified formulation Sam Jones MD Work Phone: [facility] 03-21-2011 hepatitis B vaccine, adult dosage Sam Jones MD Work Phone: [facility] Work Phone: 08-21-2006 diphtheria and tetan us toxoids, adsorbed for pediatric use Sam Jones MD Work Phone: [facility] 06-12-2005 influenza virus vaccine, whole virus Sam Jones MD Work Phone: [facility] Work Phone: 05-04-2004 pneumococcal polysaccharide vaccine, 23 valent Sam Jones MD Work Phone: [facility] 10-03-1999 tetanus and diphther ia toxoids, adsorbed, preservative free, for adult use (2 Lf of tetanus toxoid and 2 Lf of diphtheria toxoid) Sam Jones MD Work Phone: [facility] Payers Date Payer Category Payer Unknown [id number] 2022 Medicaid [id number] 2020 Medicaid UHC MEDICAID UHC COMMUNITY PLAN MEDICAID [id number] 2020-[facility] [phone] [address] [place] [address] Medicaid [id number] 2020 Medicaid [id number] 2018 Unknown 2018 Unknown BETZAIDA AGUILAR [facility] [id number] 2018-Present [phone] [address] [place] [address] [facility] [id number] 2018 Unknown [id number] 1966 Unknown [id number] 1966 Unknown [id number] 1966 Unknown [id number] 1966 Unknown [id number] 1966 Unknown [id number] 1966 Unknown [id number]. 1966 Unknown [id number] [id number]. 1966 Unknown [id number]. 1966 Unknown [id number] Social History Date Type Detail Facility Start: 01-11-2011 End: 09-20-2020 Tobacco smoking status NHIS Never smoked tobacco [facility] Start: 11-22-2021 End: 03-04-2022 Alcohol intake Current drinker of alcohol (finding) [facility] Start: 10-25-2019 History SDOH Alcohol Comment 2 vodka mixed drinks nightly [facility] Start: 1965 Sex Assigned At Female C [facility] Start: 11-12-2021 End: 03-04-2022 Exposure to SARS-CoV-2 (event) Not sure [facility] Start: 03-04-2022 Alcohol intake [facility] Start: 01-11-2011 Tobacco use and exposure Smokeless tobacco non-user [facility] Work Phone: Sex Assigned At Sex [facility] Medical Equipment Procedure Code Equipment Code Equipment Origin al Text Equipment Identifier Dates [place] [employer] Fiberwire 5.5mm 2 Full Thread Peek 14.7mm Suture 2 Sterile - [id number] Start: 02-01-2019 testing up to th ree times daily Start: 02-23-2014 Clinical Notes 04-15-2013 to 07-27-2023 LaboratoryLaboratoryAndry Dunne MD - 03/04/2022 3:57 PM RONALTRodolfo Bishop MD - 12/03/2021 2:24 PM Don Jones MD - 11/22/2021 11:49 AM EDT Note Date & Type Note Facility 07-27-2023 Note . MICRO - Microbiology PROCEDURE: Urine Culture [*1] SOURCE: Urine, Clean Catch BODY SITE: COLLECTED DATE/TIME: 07/25/2023 08:27 EST RECEIVED DATE/TIME: 07/25/2023 19:01 EST START DATE/TIME: 07/25/2023 19:01 EST FREE TEXT SOURCE: FINAL REPORTS Final Report [] Verified Date/Time/Personnel: 07/27/2023 08:39 EST 50,000 - 100,000 cfu/ml Staphylococcus saprophyticus Routine sensitivity testing of urine isolates of S.saprophyticus is not advised because infections respond respond to concentrations achieved in urine of antimicrobial agents commonly used to treat acute, uncomplicated urinary tract infections (e.g., nitrofurantoin, fluoroquinolone, or trimethoprim +/- sulfamethoxazole). PRELIMINARY REPORTS Preliminary Report [] Verified Date/Time/Personnel: 07/26/2023 14:59 EST Culture results pending. SUSCEPTIBILITY RESULTS Staphylococcus saprophyticus Antibiotic TR Dilut TR Inter ID Panel Not Not Applicable Applicable Performing Locations *1: This test was performed at: [address], [address] , [facility] ([place]) 05-14-2023 Evaluation + Plan note Diagnostic Tests PendingOva & Parasite exam 05/14/23 Future Scheduled TestsRapid HIV (AO) 02/18/23Basic Metabolic Panel 12/20/22Basic Metabolic Panel 01/17/23Complete Blood Count 01/17/23 [facility] 02-20-2023 Note . MICRO - Microbiology PROCEDURE: Affirm Pathogens DNA Direct Probe [*1] SOURCE: Vaginal Fluid BODY SITE: Vagina COLLECTED DATE/TIME: 02/18/2023 15:48 EDT RECEIVED DATE/TIME: 02/19/2023 18:49 EDT START DATE/TIME: 02/19/2023 18:49 EDT FREE TEXT SOURCE: FINAL REPORTS Final Report [] Verified Date/Time/Personnel: 02/20/2023 12:12 EDT Nicole species DNA Probe Positive Gardnerella vaginalis DNA Probe Positive Trichomonas vaginalis DNA Probe Negative Performing Locations *1: This test was performed at: [address], [address] , [facility] ([place]) 02-18-2023 Evaluation + Plan note Future Scheduled TestsRapid HIV (AO) 02/18/23Basic Metabolic Panel 12/20/22Basic Metabolic Panel 01/17/23Complete Blood Count 01/17/23 [facility] 11-01-2022 Note HNO ID: [id number] Author: MARY Manriquez Tech Service: ? Author Type: Heat Treater Head Type: Procedures Filed: 11/01/2022 2:17 PM Note Text: ZIO XT patch placed 11/01/2022, 2:30 p.m. Patient education completed [facility] 11-01-2022 Note HNO ID: [id number] Author: Dana Marvin APRN.CNP Service: Electrophysiology Author Type: Nurse Practitioner Type: Plan of Care Filed: 11/01/2022 9:04 AM Note Text: CHART REVIEWED CONSULTING SERVICE: EP Part of this note was copied from my service's previous note, all content has been individually reviewed, updated as necessary, and thoroughly reviewed, and patient assessed with updates/ changes documented/adjusted. INTERVAL HPI: Tele and chart reviewed. Hemodynamically stable. NAEON noted. Tele remaining unremarkable, SR. ASSESSMENT AND RECOMMENDATIONS Current presentation for n/v, hyperglycemia, and near syncope. Presentation of symptoms can be multifactorial in etiology including hyperglycemia with noted BGL >400 per pt on her CGM and serum BGL 309 on presentation to [place] ED, ?sepsis with elevated lactate and leukocytosis, possible intermittent hypoglycemia and adverse reaction in setting of ETOH/polysubstance with UTox preliminary positive of cannabinoids and oxycodone use interaction with PO antidiabetics, orthostasis 2/2 poor PO fluid intake r/t N/V and possibly exacerbated by antihypertensives in setting of dehydration, ?vasovagal associated with near syncope and syncope. Presenting ED EKG suggestive of NSR with possible LA enlargement and nonspecific ST abnormality. HS YUE 9 in setting of STEFANO. Anginal free. ACS r/o. QTc 482 in setting of hypokalemia. Tele and EKG otherwise unremarkable, non suggestive of atrial or ventricular arrhythmias, or pauses and heart blocks. TTE with preserved LVEF, wall motion with all scored segments normal, no valvular abnormalities, and no pericardial effusion. Preserved LV function. Echo (07/10/2006) LVEF 60%. Stable. HTN HLD DM Type II Hypothyroidism COPD Asthma Anxiety and depression GI hemorrhage B/l reducible inguinal hernias Monitor on tele Obtain orthos Daily metabolic panel and serum Mg Maintain K>4.0, Mg >2.0; K 3.3 this AM, will replenish with 40 mEq of PO K and redraw in 4 hrs. Further electrolyte supplementation per primary Trend renal function Further infection workup per primary Recommend endocrinology input into ?fluctuating BGLs, pt has CGM With noted DEAN, possible poorly controlled asthma with pt denying hx of COPD Differ further workup to primary Recommend CIWA with hx of daily ETOH use Continue to encourage ETOH and polysubstance use abstinence Zio patch ordered Call [phone] to have applied on d/c Further outpatient EP follow up needs pending Zio patch results No further recommendations from EP standpoint. Will remain available as needed. Assessment and Recommendations discussed and collaborated with Dr. Holliday SIGNATURE: Dana Marvin APRN.CIVIL DESIGN SPECIALIST DATE: November 01, 2022 TIME: 8:56 AM CONTACTING [facility]: Team A: (M-F 8:00 am - 5:00 pm) Dee Anton Scharfstein, Sparano, Vekstein, Wiseman, Gupta, Rogers - [place] [phone] Team B: (M-F 8:00 am - 5:00 pm) Nahomi Rivero Kruithoff, Mattina, Taraben, William, Abdelghany- [place] [phone] Night and Weekend Cardiovascular Medicine (consults, inpatient management questions, transfers, etc.): CALL [phone] (not the physician listed) - All calls triaged via answering service. Please include the patient's name, location, MRN, and 10-digit call-back number. [facility] 10-31-2022 Note HNO ID: [id number] Author: Yasmine Clifford, RN Service: Nursing Author Type: Registered Nurse Type: Progress Notes Filed: 10/31/2022 7:34 AM Note Text: 0230- pt arrived from [facility]. Pt Aox3, oriented to room and educated machine precision etcher light use. States she has a headache but her nausea have improved. Says she would like sometime for pain but states that most pain meds including tylenol make her itchy and give her hives and she has to take benadryl with them. Denies tobacco use, states she drinks alcohol everyday at bedtime, saying her last drink was 10/29. No needs at this time, call light within reach, bed locked and low. [facility] 10-31-2022 Note HNO ID: [id number] Author: Sloan Will MD Service: Electrophysiology Author Type: Physician Type: Procedures Filed: 12/09/2022 5:20 PM Note Text: Patient Name: Chrissy De La Torre : 1965 Ordering Provider: DANA MARVIN Indication: R55 Syncope and collapse Type of Monitor: Extended Monitoring-Zio Patch Enrollment Dates: 11/01/2022-11/14/2022 Patient had a min HR of 66 bpm, max HR of 187 bpm, and avg HR of 94 bpm. Predominant underlying rhythm was Sinus Rhythm. 5 Supraventricular Tachycardia runs occurred, the run with the fastest interval lasting 5 beats with a max rate of 187 bpm, the longest lasting 14 beats with an avg rate of 150 bpm. Isolated SVEs were rare (<1.0%), SVE Couplets were rare (<1.0%), and SVE Triplets were rare (<1.0%). Isolated VEs were rare (<1.0%), VE Couplets were rare (<1.0%), and no VE Triplets were present. Ventricular Bigeminy and Trigeminy were present. Sloan Will MD [facility] 03-04-2022 Note HNO ID: [id number] Author: Andry Dunne MD Service: ? Author Type: Physician Type: Progress Notes Filed: 03/19/2022 1:26 PM Note Text: Andry Dunne MD Department of Orthopaedics Orthopaedics [address] [facility] [address] Dept: [phone] Dept March 04, 2022 CHIEF COMPLAINT: New and Pain of the Left Shoulder HPI Pt. presents with 2 year hx of left shoulder pain. She has not had surgery, but did have MRI 06-22-2021 of left shoulder which has been scanned. She was last seen by 06-05-2021 by Mary Duong with injection prior to MRI. She also has had 5 surgeries of right shoulder, but this is [facility], and explained that we cannot treat her for this unless Dr. Dunne agrees to take on care and become provider of record. Currently she sees Dr. Jones and Dr. Bishop. She does not want to go back to [place] for care. AMB ROOMING INTAKE FLOWSHEET DATA Risk Screening Do you have concerns about personal safety or safety in the home?: No Pain Pain Level: 6 Pain Location: Shoulder-Left Description: Aching Duration Amount of Time: 2 Duration Units: Years Frequency: Continuous Intervention/Comfort measure: Medication Comments: ibuprofen 800 mg twice daily, and Percocet one tablet every 8 hours as needed ASSESSMENT: M75.42 Impingement syndrome of left shoulder (primary encounter diagnosis) M25.512, G89.29 Chronic left shoulder pain PLAN: Repeat injection for the shoulder today. FOLLOW UP INSTRUCTIONS: With a shoulder specialist Ms. Chrissy De La Torre was advised as to contrast therapies and/or to take analgesics/anti-inflammatories as needed and all contraindications were reviewed. OBJECTIVE: Ms. Chrissy De La Torre is a pleasant 56 year old in no apparent distress. Gen:LMP 04/25/2015 nl development, non obese, no deformities ENT: Normocephalic, normal hearing, moist mucosa CV: Pulses:Radial= 2+ and symmetric, capillary refill < 2 secs, no peripheral edema/varicosities Skin: no rash, bruising or lesions. Good turgor. Psych: cooperative and appropriate, alert and oriented x 3, good mood and affect. Musculoskeletal: Positive Neer and Baer impingement signs. Large Joint Arthro/Inj: L subacromial bursa Informed Consent Consent Obtained: Verbal [place] Protocol A moment to CARE was completed. SIGN IN Sign in communication not applicable due to emergent procedure. Personnel directly involved with the procedure wore the appropriate PPE. Special Equipment: N/A Patient/Surrogate Stated/Verified: Patient name, Date of , Relevant allergies and Intended procedure TIME OUT Intended patient and procedure match the source document(s). Consent documented and matches the intended procedure. Relevant labs, photos, and/or imaging studies have been reviewed. Correct side/site marked and visible. Medications required for procedure verified. No fire risk assessment and interventions applicable. No implant(s) inserted. 03/04/2022 4:23 PM The procedure site was prepped in the usual sterile fashion. Site: L subacromial bursa Medications: 6 mg betamethasone acetate-betamethasone sodium phosphate 6 mg/mL Anesthetics: 4 mL lidocaine (PF) 10 mg/mL (1 %) Outcome: Tolerated well, no immediate complications Post-injection instructions were reviewed with the patient and the patient voiced understanding of these instructions. SIGN OUT No specimen collected. No instruments, equipment or retained foreign bodies applicable. Post-procedure follow-up management communicated and Plan of Care Visit completed when applicable IMAGING: IMPRESSION: MILD SUPRASPINATUS TENDINOSIS. NO HIGH-GRADE PARTIAL OR FULL-THICKNESS ROTATOR CUFF TEAR. SUPERIOR LABRAL DEGENERATION AND DEGENERATIVE TEARING. MILD EDEMA AT THE LEVEL OF THE CORACOCLAVICULAR LIGAMENTS MAY REPRESENT LOW-GRADE SPRAIN. Spinning Doffer: PSCB Transcribe Date/Time: Jun 22 2021 4:06P Dictated by : NAYELY ZURITA MD This examination was interpreted and the report reviewed and electronically signed by: HENRY GILMORE MD on Jun 22 2021 5:18PM EST Results-Findings * * *Final Report* * * DATE OF EXAM: Jun 22 2021 3:21PM [facility] 0239 - MRI SHOULDER WO IVCON LT / PROCEDURE REASON: Other injury of unspecified muscle, fascia and tendon at shoulder and upper arm * * * * Physician Interpretation * * * * EXAMINATION: MRI SHOULDER WO IVCON LT HISTORY: Other injury of unspecified muscle, fascia and tendon at shoulder and upper arm level, unspecified arm, initial encounter NKI NO SX PAIN AND LIMITED ROM LT SHOULDER . Chronic left shoulder pain. Patient felt a tear/pop with immediate onset of pain after injury April 2021. TECHNIQUE: Routine non-contrast MRI of the shoulder. MQ: MRS_1A COMPARISON: Radiographs 06/05/2021 RESULT: TENDONS: Rotator cuff tendons: -Supraspinatus: Intact with mild tendinosis -Infraspinatus: I (more content not included)... [facility] 03-04-2022 History of Present illness Narrative Associated Order(s): Large Joint Arthro/Inj: L subacromial bursa Post-Procedure Diagnose(s): Impingement syndrome of left shoulder; Chronic left shoulder pain Andry Dunne MD Department of Orthopaedics Orthopaedics [address] [facility] [address] Dept: [phone] Dept March 04, 2022 CHIEF COMPLAINT: New and Pain of the Left Shoulder HPI Pt. presents with 2 year hx of left shoulder pain. She has not had surgery, but did have MRI 06-22-2021 of left shoulder which has been scanned. She was last seen by 06-05-2021 by Mary Duong with injection prior to MRI. She also has had 5 surgeries of right shoulder, but this is [facility], and explained that we cannot treat her for this unless Dr. Dunne agrees to take on care and become provider of record. Currently she sees Dr. Jones and Dr. Bishop. She does not want to go back to [place] for care. AMB ROOMING INTAKE FLOWSHEET DATA Risk Screening Do you have concerns about personal safety or safety in the home?: No Pain Pain Level: 6 Pain Location: Shoulder-Left Description: Aching Duration Amount of Time: 2 Duration Units: Years Frequency: Continuous Intervention/Comfort measure: Medication Comments: ibuprofen 800 mg twice daily, and Percocet one tablet every 8 hours as needed ASSESSMENT: M75.42 Impingement syndrome of left shoulder (primary encounter diagnosis) M25.512, G89.29 Chronic left shoulder pain PLAN: Repeat injection for the shoulder today. FOLLOW UP INSTRUCTIONS: With a shoulder specialist Ms. Chrissy De La Torre was advised as to contrast therapies and/or to take analgesics/anti-inflammatories as needed and all contraindications were reviewed. OBJECTIVE: Ms. Chrissy De La Torre is a pleasant 56 year old in no apparent distress. Gen:LMP 04/25/2015 nl development, non obese, no deformities ENT: Normocephalic, normal hearing, moist mucosa CV: Pulses:Radial= 2+ and symmetric, capillary refill < 2 secs, no peripheral edema/varicosities Skin: no rash, bruising or lesions. Good turgor. Psych: cooperative and appropriate, alert and oriented x 3, good mood and affect. Musculoskeletal: Positive Neer and Baer impingement signs. Large Joint Arthro/Inj: L subacromial bursa Informed Consent Consent Obtained: Verbal [place] Protocol A moment to CARE was completed. SIGN IN Sign in communication not applicable due to emergent procedure. Personnel directly involved with the procedure wore the appropriate PPE. Special Equipment: N/A Patient/Surrogate Stated/Verified: Patient name, Date of , Relevant allergies and Intended procedure TIME OUT Intended patient and procedure match the source document(s). Consent documented and matches the intended procedure. Relevant labs, photos, and/or imaging studies have been reviewed. Correct side/site marked and visible. Medications required for procedure verified. No fire risk assessment and interventions applicable. No implant(s) inserted. 03/04/2022 4:23 PM The procedure site was prepped in the usual sterile fashion. Site: L subacromial bursa Medications: 6 mg betamethasone acetate-betamethasone sodium phosphate 6 mg/mL Anesthetics: 4 mL lidocaine (PF) 10 mg/mL (1 %) Outcome: Tolerated well, no immediate complications Post-injection instructions were reviewed with the patient and the patient voiced understanding of these instructions. SIGN OUT No specimen collected. No instruments, equipment or retained foreign bodies applicable. Post-procedure follow-up management communicated and Plan of Care Visit completed when applicable IMAGING: IMPRESSION: MILD SUPRASPINATUS TENDINOSIS. NO HIGH-GRADE PARTIAL OR FULL-THICKNESS ROTATOR CUFF TEAR. SUPERIOR LABRAL DEGENERATION AND DEGENERATIVE TEARING. MILD EDEMA AT THE LEVEL OF THE CORACOCLAVICULAR LIGAMENTS MAY REPRESENT LOW-GRADE SPRAIN. Spinning Doffer: PSCB Transcribe Date/Time: Jun 22 2021 4:06P Dictated by : NAYELY ZURITA MD This examination was interpreted and the report reviewed and electronically signed by: HENRY GILMORE MD on Jun 22 2021 5:18PM EST Results-Findings * * *Final Report* * * DATE OF EXAM: Jun 22 2021 3:21PM [facility] 0239 - MRI SHOULDER WO IVCON LT / PROCEDURE REASON: Other injury of unspecified muscle, fascia and tendon at shoulder and upper arm * * * * Physician Interpretation * * * * EXAMINATION: MRI SHOULDER WO IVCON LT HISTORY: Other injury of unspecified muscle, fascia and tendon at shoulder and upper arm level, unspecified arm, initial encounter NKI NO SX PAIN & LIMITED ROM LT SHOULDER . Chronic left shoulder pain. Patient felt a tear/pop with immediate onset of pain after injury April 2021. TECHNIQUE: Routine non-contrast MRI of the shoulder. MQ: MRS_1A COMPARISON: Radiographs 06/05/2021 RESULT: TENDONS: Rotator cuff tendons: -Supraspinatus: Intact with mild tendinosis -Infraspinatus: Intact tendon -Subscapularis: Intact tendon -Teres Minor: Intact tendon Biceps (Long head) Tendon: Intact , with normal course MUSCLES: Rotator cuff muscles: -Supraspinatus: Preserved bulk and no fatty changes. -Infraspinatus: Preserved bulk and no fatty changes. -Subscapularis: Preserved bulk and no fatty changes. -Teres Minor: Preserved bulk and no fatty changes. Other muscles: Preserved signal and bulk in the deltoid. JOINTS: Glenohumeral Joint: -Labrum: Degeneration and tearing in the superior labrum -Cartilage: Normal -Joint Fluid: No effusion . No synovitis. Acromioclavicular Joint: Normal BONES AND MARROW: Heterogeneous marrow signal in the proximal humeral diaphysis, most consistent with red marrow reconversion. No evidence of fracture or suspicious bone marrow replacing process . Reactive subcortical cystic changes at the greater tuberosity. OTHER: Subdeltoid/Subacromial Bursa: Minimal bursal distention /thickening Other: Mild edema at the level of the coracoclavicular ligaments. Localizer images: No additional findings. Supporting Subjective Information Below: Past Medical History: PAST MEDICAL HISTORY Diagnosis Date Asymptomatic varicose veins Dysmetabolic syndrome X Esophageal reflux HTN (hypertension) Insomnia, unspecified Internal hemorrhoids without mention of complication Mixed hyperlipidemia Panic disorder without agoraphobia Peripheral neuropathy NCT 07/22/2012 Premenopausal menorrhagia 04/15/2013 Reflex sympathetic dystrophy of the lower limb RSD (reflex sympathetic dystrophy) bilateral after left ankle fracture Unspecified asthma(493.90) Unspecified closed fracture of ankle Left Ankle fracture Unspecified hypothyroidism off of meds. Past Surgical History: PAST SURGICAL HISTORY Procedure Laterality Date ADDTL NECK SPINE FUSION 09/2020 c3-6 APPENDECTOMY 1997 BIOPSY BREAST OPEN INCISIONAL 1996 Bx of breast, incisional - right CHOLECYSTECTOMY 1990 Cholecystectomy COLONOSCOPY 2002 COLONOSCOPY FLX DX W/COLLJ SPEC WHEN PFRMD 09/09/2008 Mild internal hemorrhoids COLONOSCOPY FLX DX W/COLLJ SPEC WHEN PFRMD 04/20/2019 Colonoscopy COLONOSCOPY W/BIOPSY SINGLE/MULTIPLE 08/02/2010 ESOPHAGOGASTRODUODENOSCOPY TRANSORAL DIAGNOSTIC 04/20/2019 EGD LIG/TRNSXJ FLP TUBE ABDL/VAG APPR UNI/BI 1992 Tubal ligation LIG/TRNSXJ FLP TUBE ABDL/VAG APPR UNI/BI 10/03/2005 Tubal ligation OOPHORECTOMY PARTIAL/TOTAL UNI/BI 2002 Oophorectomy Left PAST SURGICAL HISTORY OF 1982 CYST REMOVAL RIGHT FOOT PAST SURGICAL HISTORY OF 1997 Right knee surgery PAST SURGICAL HISTORY OF 1999 Right knee surgery PAST SURGICAL HISTORY OF 2000 tubal reversal PAST SURGICAL HISTORY OF 2012 uterine ablation REPAIR RECTOCELE SEPARATE PROCEDURE 10/03/2005 SHOULDER SURGERY HX Right x5 STEREO LOC FOR BRST NDLE BX LT 01/15/2008 LEFT VAGINAL HYSTERECTOMY UTERUS 250 GM/< 06/08/2015 Family History: FAMILY HISTORY Problem Relation Age of Onset Alcohol/Drug Father Diabetes Brother Diabetes Paternal Grandmother Cancer Paternal Grandfather LARNYX Breast Cancer Maternal Aunt Breast Cervical Cancer Sister two sisters Cancer Sister Vulva Diabetes Sister Social History: Social History Tobacco Use Smoking status: Never Smoker Smokeless tobacco: Never Used Vaping Use Vaping Use: Never used Substance Use Topics Alcohol use: Yes Comment: 2 vodka mixed drinks nightly Drug use: No Comment: Exposed to Marijuana/ second hand Medications: Current Outpatient Medications Medication Sig glimepiride (AMARYL) 4 mg tablet Take 4 mg by mouth daily with breakfast. oxyCODONE-acetaminophen (PERCOCET) 5-325 mg tablet Take 1 tablet by mouth every 8 hours as needed for pain. for pain. solifenacin 10 mg tablet Take 1 tablet by mouth once daily. conjugated estrogens (PREMARIN) vaginal cream Use 1 g vaginally two times a week. Use 1g vaginally every night for two weeks and then twice weekly after that fluconazole (DIFLUCAN) 100 mg tablet Take 1 tablet by mouth once daily. cholecalciferol, vitamin D3, (VITAMIN D-3) 10 mcg (400 unit) cap Take 400 Units by mouth once daily. ezetimibe (ZETIA) 10 mg tablet Take 10 mg by mouth once daily. ondansetron (ZOFRAN) 4 mg tablet TAKE 1 TABLET BY MOUTH EVERY 8 HOURS NEEDED NAUSEA LORazepam (ATIVAN) 1 mg tablet 1 mg. omeprazole (PRILOSEC) 20 mg capsule TAKE 1 CAPSULE BY MOUTH TWICE DAILY 1/2 HOUR BEFORE A MEAL lisinopril-hydrochlorothiazide (PRINZIDE, ZESTORETIC) 20-25 mg per tablet albuterol HFA (PROAIR HFA) 90 mcg/actuation inhaler Inhale 2 Puffs as instructed every 4 hours as needed. blood sugar diagnostic (ACCU-CHEK GENNY) test strip testing up to three times daily No current facility-administered medications for this visit. Allergies: Pneumovax 23 [Pneumococcal 23-Deepthi Ps Vaccine], Sulfa (Sulfonamide Antibiotics), Actos [Pioglitazone Hcl], Arava [Leflunomide], Bactrim [Sulfamethoxazole-Trimethoprim], Codeine, Concerta [Methylphenidate Analogues], Embeda [Morphine-Naltrexone], Enbrel [Etanercept], Environmental Allergies [Other], Humira [Adalimumab], Ketek [Telithromycin], Lopressor [Metoprolol Tartrate], Morphine, Oxymorphone, Percocet [Oxycodone-Acetaminophen], Ycdusgv-Nxz-Jwl Reductase Inhibitors, Tylenol [Acetaminophen], and Ultram [Tramadol Hcl] ROS: General (negative for fatigue, malaise, weight loss/gain) HEENT (negative for headache, earache, recent vision changes, sinus pain, sore throat) Respiratory (no recent shortness of breath, hemoptysis) CV (negative for chest tightness, palpitations) Musculoskeletal (see HPI) Psych (no depression, anxiety) REFERRING PHYSICIAN: Ms. Chrissy De La Torre was referred to ia for consultation by the following physician. This consultation note will be sent to the following physician by either mail or electronic medical record. Andry Dunne [address] [facility] [address] Karl Pichardo MD [address] [place] [facility] [address] Andry Dunne MD documented in this encounter [facility] 12-03-2021 Note HNO ID: [id number] Author: Rodolfo Bishop MD Service: ? Author Type: Physician Type: Progress Notes Filed: 12/03/2021 3:58 PM Note Text: SERVICE DATE: Patient would like to see someone today. PCP: Chrissy De La Torre REFERRING PROVIDER: Sam Jones [id number] [address] [phone] Consult requested for an opinion regarding the evaluation and treatment of the above patient. My final impression and recommendations will be communicated back to the requesting physician by way of the shared medical record or letter via [place] mail. CHIEF COMPLAINT: Patient presents with: Right Shoulder - New, Pain, Stiffness, Swelling, Weakness, Numbness/Tingling SUBJECTIVE HISTORY OF PRESENT ILLNESS: Chrissy De La Torre is a 56 year old right hand dominant woman presenting with right shoulder pain and dysfunction. She reports multiple (7) surgeries on the right shoulder initially for a fracture 5 years ago. She was treated with ORIF with a plate and screws at that time with subsequent removal of plate and screws due to loosening. She was then diagnosed with a rotator cuff tear on the right shoulder for which she underwent arthroscopic RCR with Dr. Jones. She underwent 2 more arthroscopic IANDD with Dr. Jones, most recently in April 2021. She reports improved symptoms after that time which have slowly recurred. Now she has pain with ROM of the shoulder and weakness with the arm outstretched. She denies any numbness/tingling, but she does have a history of C2-6 cervical fusion. She also reports left shoulder impingement type symptoms; she was injected in Dr. Jones's clinic 2 weeks ago and reports minimal symptoms at this time. She reports a history of RSD in the left ankle after a fracture several years ago. Also reports well controlled DM. PROGRESSIVE SYMPTOMS: Pain affecting living situation/ADL's Pain impacting sleep or causing fatigue Pain impacting work Pain limiting ability to stay fit and healthy, sports or recreational activity Pain worsened by overhead activity/reaching PREVIOUS TREATMENT(S): PT Greater Than 3 Months Modified Activity OTC NSAIDS for Greater Than 3 Months Steroid Injections Left Shoulder Steroid Injections Right Shoulder Ice and/or Heat Previous Surgery: Proximal Humerus Open Reduction Internal Fixation and Arthroscopic Rotator Cuff Repair NECK COMPLAINTS: None Problem List Noted Noted By Resolved Resolved By Reflex sympathetic dystrophy of lower limb 03/28/2006 Rosa Vyas, PT No Priority: A Overview Addendum 06/15/2012 3:47 PM by Brandon Huston Bilateral lower leg pain From a trauma -- broken ankle (left) -- 2006 Following with [facility] Previous Version Essential hypertension, benign Phoebe Randle No Priority: A Panic disorder without agoraphobia Phoebe Randle No Priority: B Liver mass 04/16/2010 Karl Pichardo MD No Priority: C Overview Addendum 12/28/2010 9:00 AM by Karl Guadalupe (Retired) Kylee Right lobe; MRI 04/2009 -- recommended f/u 6-12 month --> Repeat 04/2010 stable, probable hemangioma Previous Version Mild intermittent asthma without complication 01/30/2006 Javan Dahl V, DO No Priority: C Rotator cuff tear arthropathy of right shoulder 11/22/2021 Sam Jones MD No Rotator cuff syndrome of left shoulder 11/22/2021 Sam Jones MD No Plantar fasciitis, bilateral 07/17/2021 Ashwin Mccullough, PT No Strain of right shoulder 06/12/2021 Rosa Vyas, PT No History of fusion of cervical spine 04/25/2021 Mariely Kelley COMPRESSOR OPERATOR PORTABLE.CIVIL DESIGN SPECIALIST No GERD (gastroesophageal reflux disease) 10/25/2019 Mariely Kelley COMPRESSOR OPERATOR PORTABLE.CIVIL DESIGN SPECIALIST No Nausea and vomiting 10/25/2019 Mariely Kelley COMPRESSOR OPERATOR PORTABLE.CIVIL DESIGN SPECIALIST No Mixed hyperlipidemia 10/25/2019 Mariely Kelley COMPRESSOR OPERATOR PORTABLE.CIVIL DESIGN SPECIALIST No History of failed repair of rotator cuff 10/25/2019 Mariely Kelley COMPRESSOR OPERATOR PORTABLE.CIVIL DESIGN SPECIALIST No Impingement syndrome of left shoulder 10/12/2019 Sam Jones MD No Visual disturbances 08/28/2019 Ryan Ortega MD No Traumatic complete tear of right rotator cuff 01/05/2019 Sam Jones MD No Symptomatic menopausal or female climacteric states 09/29/2017 Milo Huizar MD No Right lateral epicondylitis 12/20/2015 M Jayme Hanna PA-C No Microalbuminuria 07/14/2014 Tomi Sexton MD No Bleeding diathesis (HCC) 04/11/2014 Vicky Louis MD No Climacteric 09/10/2013 Daniele Guadalupe Asael No Diabetes mellitus type 2, controlled, without complications (HCC) 05/18/2013 Ame Mujica No Peripheral neuropathy (Chronic) Brandon Osorio MD No Overview Signed 07/24/2012 12:10 AM by Brandon Huston NCT 07/22/2012 Insomnia Brandon Osorio MD No Overview Signed 03/01/2015 9:41 AM by Tomi Sexton Controlled substance agreement. 11/16 Arthritis Brandon Osorio MD No Overview Signed 06/15/2012 3:50 PM by Brandon Huston ankles, knees, hands, wrists, shoulders Diarrhea 08/02/2010 Rosa Ulloa RN No Hemorrh (more content not included)... [facility] 12-03-2021 History of Present illness Narrative Post-Procedure Diagnose(s): History of failed repair of rotator cuff; Rotator cuff tear arthropathy of right shoulder SERVICE DATE: Patient would like to see someone today. PCP: Chrissy De La Torre REFERRING PROVIDER: Sam Jones [id number] [facility] [id number] Consult requested for an opinion regarding the evaluation and treatment of the above patient. My final impression and recommendations will be communicated back to the requesting physician by way of the shared medical record or letter via US mail. CHIEF COMPLAINT: Patient presents with: Right Shoulder - New, Pain, Stiffness, Swelling, Weakness, Numbness/Tingling SUBJECTIVE HISTORY OF PRESENT ILLNESS: Chrissy De La Torre is a 56 year old right hand dominant woman presenting with right shoulder pain and dysfunction. She reports multiple (7) surgeries on the right shoulder initially for a fracture 5 years ago. She was treated with ORIF with a plate and screws at that time with subsequent removal of plate and screws due to loosening. She was then diagnosed with a rotator cuff tear on the right shoulder for which she underwent arthroscopic RCR with Dr. Jones. She underwent 2 more arthroscopic I&D with Dr. Jones, most recently in April 2021. She reports improved symptoms after that time which have slowly recurred. Now she has pain with ROM of the shoulder and weakness with the arm outstretched. She denies any numbness/tingling, but she does have a history of C2-6 cervical fusion. She also reports left shoulder impingement type symptoms; she was injected in Dr. Jones's clinic 2 weeks ago and reports minimal symptoms at this time. She reports a history of RSD in the left ankle after a fracture several years ago. Also reports well controlled DM. PROGRESSIVE SYMPTOMS: Pain affecting living situation/ADL's Pain impacting sleep or causing fatigue Pain impacting work Pain limiting ability to stay fit and healthy, sports or recreational activity Pain worsened by overhead activity/reaching PREVIOUS TREATMENT(S): PT Greater Than 3 Months Modified Activity OTC NSAIDS for Greater Than 3 Months Steroid Injections Left Shoulder Steroid Injections Right Shoulder Ice and/or Heat Previous Surgery: Proximal Humerus Open Reduction Internal Fixation and Arthroscopic Rotator Cuff Repair NECK COMPLAINTS: None Problem List Noted Noted By Resolved Resolved By Reflex sympathetic dystrophy of lower limb 03/28/2006 Rosa Vyas, PT No Priority: A Overview Addendum 06/15/2012 3:47 PM by Brandon Huston Bilateral lower leg pain From a trauma -- broken ankle (left) -- 2006 Following with [facility] Previous Version Essential hypertension, benign Phoebe Razia No Priority: A Panic disorder without agoraphobia Phoebe Randle No Priority: B Liver mass 04/16/2010 Karl Pichardo MD No Priority: C Overview Addendum 12/28/2010 9:00 AM by Karl Guadalupe (Retired) Kylee Right lobe; MRI 04/2009 -- recommended f/u 6-12 month --> Repeat 04/2010 stable, probable hemangioma Previous Version Mild intermittent asthma without complication 01/30/2006 Javan Dahl V, DO No Priority: C Rotator cuff tear arthropathy of right shoulder 11/22/2021 Sam Jones MD No Rotator cuff syndrome of left shoulder 11/22/2021 Sam Jones MD No Plantar fasciitis, bilateral 07/17/2021 Ashwin Mccullough, PT No Strain of right shoulder 06/12/2021 Rosa Vyas, PT No History of fusion of cervical spine 04/25/2021 Mariely Kelley, COMPRESSOR OPERATOR PORTABLE.CIVIL DESIGN SPECIALIST No GERD (gastroesophageal reflux disease) 10/25/2019 Mariely Kelley COMPRESSOR OPERATOR PORTABLE.CIVIL DESIGN SPECIALIST No Nausea and vomiting 10/25/2019 Mariely Kelley COMPRESSOR OPERATOR PORTABLE.CIVIL DESIGN SPECIALIST No Mixed hyperlipidemia 10/25/2019 Mariely Kelley, COMPRESSOR OPERATOR PORTABLE.CIVIL DESIGN SPECIALIST No History of failed repair of rotator cuff 10/25/2019 Mariely Kelley COMPRESSOR OPERATOR PORTABLE.CIVIL DESIGN SPECIALIST No Impingement syndrome of left shoulder 10/12/2019 Sam Jones MD No Visual disturbances 08/28/2019 Ryan Ortega MD No Traumatic complete tear of right rotator cuff 01/05/2019 Sam Jones MD No Symptomatic menopausal or female climacteric states 09/29/2017 Milo Huizar MD No Right lateral epicondylitis 12/20/2015 Jo Hanna PA-C No Microalbuminuria 07/14/2014 Tomi Sexton MD No Bleeding diathesis (HCC) 04/11/2014 Vicky Louis MD No Climacteric 09/10/2013 Daniele Vyas No Diabetes mellitus type 2, controlled, without complications (HCC) 05/18/2013 Ame Mujica No Peripheral neuropathy (Chronic) Brandon Osorio MD No Overview Signed 07/24/2012 12:10 AM by Brandon Herrera 07/22/2012 Insomnia Brandon Osorio MD No Overview Signed 03/01/2015 9:41 AM by Tomi Sexton Controlled substance agreement. 11/16 Arthritis Brandon Osorio MD No Overview Signed 06/15/2012 3:50 PM by Brandon Huston ankles, knees, hands, wrists, shoulders Diarrhea 08/02/2010 Rosa Ulloa, RN No Hemorrhage of rectum and anus 08/02/2010 Rosa Ulloa, RN No HEMORRHOIDS INTERNAL 09/09/2008 Tu Meade MD No Impaired fasting blood sugar 12/28/2010 Karl Pichardo MD 03/01/2015 Priority: Moderate Overview Signed 12/28/2010 8:58 AM by Karl Guadalupe (Retired) Kylee A1c 6.4 as of --> Diagnostic for DM at 6.5% or higher, per current criteria Hypothyroidism 10/05/2009 Karl Pichardo MD 10/29/2013 Tomi Sexton MD Priority: A Rheumatoid arthritis(714.0) Brandon Osorio MD 01/28/2014 Priority: B Overview Signed 06/15/2012 3:51 PM by Brandon Ruiz Dysmetabolic syndrome X Bibi West RN 03/01/2015 Tomi Setxon MD Priority: B Premenopausal menorrhagia 04/15/2013 Daniele Vyas 01/28/2014 Cierra Fields Routine general medical examination at a health care facility 08/30/2009 Karl Pichardo MD 01/13/2013 Class: Chronic Overview Addendum 03/18/2011 8:11 AM by Karl Guadalupe (Retired) Kylee 08/30/2009, from Dr. Dahl 03/18/2011, yearly check-up Previous Version Routine gynecological examination 08/30/2009 Karl Pichardo MD 01/13/2013 Daniele Vyas Class: Chronic Cold intolerance 05/10/2009 Anthony Peace MD 08/30/2009 Karl Pichardo MD Pain in limb 12/29/2008 Shana Prakash 08/30/2009 Karl Pichardo MD Tibialis tendinitis 12/29/2008 Jordan Vyas 08/30/2009 Karl Pichardo MD RECTAL BLEEDING (MELENA-578.1) 08/23/2008 Tu Meade MD 08/30/2009 Karl Pichardo MD Lump or mass in breast 01/01/2008 Nadya Castillo 08/30/2009 Karl Pichardo MD Abnormal mammogram, unspecified 07/07/2007 Tu Meade MD 08/30/2009 Karl Pichardo MD Mastodynia 09/18/2006 Donald Spence MD 08/30/2009 Karl Pichardo MD Chest pain, unspecified 08/05/2006 Cristopher Casas MD 08/30/2009 Karl Pichardo MD Causalgia of lower limb 02/13/2006 Sony Munoz 08/30/2009 Karl Pichardo MD Closed bimalleolar fracture 01/30/2006 Rosa Vyas, PT 02/13/2006 Sony Munoz Closed bimalleolar fracture 11/25/2005 Chloenorma Childress Ma 01/30/2006 Sony Munoz Mitral valve disorders(424.0) Phoebe Razia 08/05/2006 Cristopher Casas MD No past surgical history on file. No family history on file. Social History Marital status: ALLERGIES ALLERGIES Allergen Reactions Pneumovax 23 [Pneum* Shortness of Breath Sulfa (Sulfonamide * Anaphylaxis Actos [Pioglitazone* Swelling bloated and some chest pain Arava [Leflunomide] Other: See Comments Made rheumatoid arthritis symptoms worse Bactrim [Sulfametho* Anaphylaxis Codeine Itching Concerta [Methylphe* Other: See Comments flushing Embeda [Morphine-Na* Intolerance Enbrel [Etanercept] Other: See Comments Hypertension, heart palpitations, breathing problems Environmental Aller* Intolerance Dust mites, molds Humira [Adalimumab] Other: See Comments infection Ketek [Telithromyci* Mental Status Change Lopressor [Metoprol* palpitations Morphine Mental Status Change Oxymorphone Mental Status Change Percocet [Oxycodone* Itching Severe itching Cljymeq-Smd-Vqn Red* Other: See Comments Muscle aches, multiple statins Tylenol [Acetaminop* Hives Ultram [Tramadol Hc* Other: See Comments sexual active MEDICATIONS: Current Outpatient Medications Medication Sig Dispense Refill glimepiride (AMARYL) 4 mg tablet Take 4 mg by mouth daily with breakfast. oxyCODONE-acetaminophen (PERCOCET) 5-325 mg tablet Take 1 tablet by mouth every 8 hours as needed for pain. for pain. 20 tablet 0 solifenacin 10 mg tablet Take 1 tablet by mouth once daily. 60 tablet 5 conjugated estrogens (PREMARIN) vaginal cream Use 1 g vaginally two times a week. Use 1g vaginally every night for two weeks and then twice weekly after that 30 g 4 fluconazole (DIFLUCAN) 100 mg tablet Take 1 tablet by mouth once daily. cholecalciferol, vitamin D3, (VITAMIN D-3) 10 mcg (400 unit) cap Take 400 Units by mouth once daily. ezetimibe (ZETIA) 10 mg tablet Take 10 mg by mouth once daily. ondansetron (ZOFRAN) 4 mg tablet TAKE 1 TABLET BY MOUTH EVERY 8 HOURS NEEDED NAUSEA 0 LORazepam (ATIVAN) 1 mg tablet 1 mg. omeprazole (PRILOSEC) 20 mg capsule TAKE 1 CAPSULE BY MOUTH TWICE DAILY 1/2 HOUR BEFORE A MEAL 60 capsule 0 lisinopril-hydrochlorothiazide (PRINZIDE, ZESTORETIC) 20-25 mg per tablet albuterol HFA (PROAIR HFA) 90 mcg/actuation inhaler Inhale 2 Puffs as instructed every 4 hours as needed. 1 Inhaler 0 blood sugar diagnostic (ACCU-CHEK GENNY) test strip testing up to three times daily 100 Strip 11 No current facility-administered medications for this visit. REVIEW OF SYSTEMS PAIN ASSESSMENT: PAIN EVALUATION 12/03/2021 1043 Pain Level: 6 Pain Location: Shoulder-Right Description: Aching;Dull;Sharp;Sore;Throbbing; Stiffness Duration Units: Years Frequency: Continuous Intervention/Comfort measure: Medication;Reposition;Relaxation; Cold;Exercise;Heat REVIEW OF SYMPTOMS: Constitutional: Any recent fevers? no Cardiovascular: Any chest pain? no Respiratory: Any shortness or breath? no Gastrointestinal: Any abdominal discomfort? no Integumentary: Any recent skin changes or rashes? no Neurologic: Any numbness or tingling? See Above Endocrine: Any diagnosis of diabetes? no Hematologic: Any recent bleeding episodes? no OBJECTIVE LMP 04/25/2015 (Exact Date) PHYSICAL EXAMINATION: Well healed surgical incisions over the right shoulder Tender over the anterior, lateral shoulder Forward elevation to 110 Abduction to 80 IR to T-spine ER to 30 deg RC strength 4+/5 Positive impingement RADIOGRAPHIC RESULTS: No recent imaging Right shoulder, ordered; Left shoulder imaging with no significant pathology on XR; MRI left shoulder demonstrates some mild labral pathology superiorly and anteriorly without lidia tear ASSESSMENT Encounter Diagnosis ICD-10-CM 1. History of failed repair of rotator cuff Z98.890 2. Rotator cuff tear arthropathy of right shoulder M75.101 M12.811 PLAN I discussed with Chrissy that the symptoms in her left shoulder is due to cuff tear arthropathy with 7 failed prior surgeries in a patient with history of RSD, malnutrition, hypothyroidism and diabetes. I had a long conversation with the patient regarding her presentation and treatment options. Although she has torn rotator cuff and has developed cuff tear arthropathy, she has preserved shoulder height function and according to the patient function is her main priority and not pain. Given multiple failed prior surgeries and extremely high risk of infection, dislocation, acromial stress fracture due to osteoporosis and high activity level and high expectations regarding functional improvement, I do not believe she is a good surgical candidate for reverse total shoulder arthroplasty. I advised her to try cortisone injection and as long as they work she can repeat them every 6 months. This is a [facility] case and we can submit for approval for her injection with a C9 form and when that is approved, I will be happy to see her back for an injection.She understands and agreeable with this plan. If any questions or concerns arise, she should not hesitate to call. Rodolfo Bishop M.D. M.M.Sc. Shoulder and Elbow Surgeon Orthopaedic Surgery Department [place], [place] [address] Tell: [phone] Appt:[phone] 12/03/2021 2:24 PM documented in this encounter [facility] 11-22-2021 Note HNO ID: [id number] Author: Sam Jones MD Service: ? Author Type: Physician Type: Progress Notes Filed: 11/22/2021 11:51 AM Note Text: Assessment/Primary Diagnosis: (S43.432D) Tear of left glenoid labrum, subsequent encounter (primary encounter diagnosis) (M75.102) Rotator cuff syndrome of left shoulder Fellow/resident history and physical examination reviewed and confirmed by the attending physician. The attending physician obtained additional history and performed focused physical examination. All imaging and laboratory studies were reviewed by the attending physician with fellow/resident and the patient. Treatment care plan discussed with the fellow/resident and completely explained to the patient. The attending physician was present for and supervised any injections. All of the patient's questions were answered by the attending physician. Large Joint Arthro/Inj: L subacromial bursa Informed Consent Consent Obtained: Verbal [place] Protocol A moment to CARE was completed. SIGN IN Personnel directly involved with the procedure wore the appropriate PPE. Special Equipment: N/A Patient/Surrogate Stated/Verified: Patient name, Date of , Relevant allergies and Intended procedure TIME OUT Intended patient and procedure match the source document(s). Consent documented and matches the intended procedure. No relevant labs, photos, and/or imaging studies were applicable for review. Correct side/site marked and visible. Medications required for procedure verified. No fire risk assessment and interventions applicable. No implant(s) inserted. 11/22/2021 11:49 AM The procedure site was prepped in the usual sterile fashion. Site: L subacromial bursa Aspirate: 0 mL Medications: 40 mg triamcinolone acetonide 40 mg/mL Anesthetics: 4 mL lidocaine (PF) 10 mg/mL (1 %) Outcome: Tolerated well, no immediate complications Post-injection instructions were reviewed with the patient and the patient voiced understanding of these instructions. SIGN OUT No specimen collected. No instruments, equipment or retained foreign bodies applicable. Post-procedure follow-up management communicated and Plan of Care Visit completed when applicable No images are attached to the encounter. SIGNATURE: Sam Jones MD PATIENT NAME: Chrissy De La Torre DATE: November 22, 2021 TIME: 11:49 AM PAGER/CONTACT #: [facility] 11-22-2021 Note HNO ID: [id number] Author: Sam Jones MD Service: ? Author Type: Physician Type: Progress Notes Filed: 11/22/2021 11:47 AM Note Text: Assessment/Primary Diagnosis: (M75.101, M12.811) Rotator cuff tear arthropathy, right (primary encounter diagnosis) (S46.011D) Traumatic complete tear of right rotator cuff, subsequent encounter Fellow/resident history and physical examination reviewed and confirmed by the attending physician. The attending physician obtained additional history and performed focused physical examination. All imaging and laboratory studies were reviewed by the attending physician with fellow/resident and the patient. Treatment care plan discussed with the fellow/resident and completely explained to the patient. The attending physician was present for and supervised any injections. All of the patient's questions were answered by the attending physician. [facility] 11-22-2021 Note HNO ID: [id number] Author: Sam Jones MD Service: ? Author Type: Physician Type: Progress Notes Filed: 11/22/2021 11:51 AM Note Text: FOLLOW UP APPOINTMENT Chief Complaint:/Reason for Visit: Established patient; Scheduled follow up appointment for new or existing problem and/or post-surgical evaluation History of Present Illness: Chrissy De La Torre presents today for follow-up. She has an extensive history. She had 4 prior surgeries to her right shoulder before seeing us. In 2018 she underwent a arthroscopic rotator cuff repair revision. In 2019 she underwent arthroscopic debridement and removal of loose body and retained hardware of her right shoulder. In April 2021 she underwent another arthroscopic debridement of her right shoulder. Has been seen for complaints of left shoulder rotator cuff symptoms in the past. She was last seen with us in June 2021. She had recently got an MRI which showed an intact cuff and some degenerative changes of her labrum. In June when she was last seen she was given a subacromial injection at that time. She presents today for follow-up She noted the last injection helped for some time. She is interested in another injection today. ROS: Constitutional: patient denies any recent fever or significant change in weight Cardiovascular: patient denies any chest pain at rest Respiratory: patient denies any shortness of breath or cough Gastrointestinal: patient denies any current abdominal discomfort Integumentary: patient denies any recent skin changes Musculoskeletal: as noted in the HPI Neurologic: as noted in the HPI Endocrine: patient denies a current diagnosis of diabetes Hematologic/Lymphatic: patient denies any easily bleeding, any recent infection and denies any recent observable lymph node enlargement Psychologic: negative for any recent depression or anxiety issues PAST MEDICAL HISTORY Diagnosis Date - Asymptomatic varicose veins - Dysmetabolic syndrome X - Esophageal reflux - HTN (hypertension) - Insomnia, unspecified - Internal hemorrhoids without mention of complication - Mixed hyperlipidemia - Panic disorder without agoraphobia - Peripheral neuropathy NCT 07/22/2012 - Premenopausal menorrhagia 04/15/2013 - Reflex sympathetic dystrophy of the lower limb - RSD (reflex sympathetic dystrophy) bilateral after left ankle fracture - Unspecified asthma(493.90) - Unspecified closed fracture of ankle Left Ankle fracture - Unspecified hypothyroidism off of meds. Current Outpatient Medications: - glimepiride (AMARYL) 4 mg tablet - solifenacin 10 mg tablet - conjugated estrogens (PREMARIN) vaginal cream - oxyCODONE-acetaminophen (PERCOCET) 5-325 mg tablet - fluconazole (DIFLUCAN) 100 mg tablet - cholecalciferol, vitamin D3, (VITAMIN D-3) 10 mcg (400 unit) cap - ezetimibe (ZETIA) 10 mg tablet - ondansetron (ZOFRAN) 4 mg tablet - LORazepam (ATIVAN) 1 mg tablet - omeprazole (PRILOSEC) 20 mg capsule - lisinopril-hydrochlorothiazide (PRINZIDE, ZESTORETIC) 20-25 mg per tablet - albuterol HFA (PROAIR HFA) 90 mcg/actuation inhaler - blood sugar diagnostic (ACCU-CHEK GENNY) test strip Problem List: reviewed and updated. Physical Exam: Constitutional: No acute distress, pleasant Resp: Non-labored breathing Vascular: No cyanosis Skin: No rashes noted Focused Musculoskeletal exam: General: Ambulates well; no other joint abnormalities noted. 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 Pulses: 2+ radial, ulnar; hands warm bilat, <2sec CR Compartments: soft and compressible No cutaneous abnormalities. She has forward flexion 140 external rotation to 40 internal rotation to lower lumbar. Her strength testing is some mild weakness but overall preserved. She is neurovascularly intact. Assessment: Rotator cuff syndrome left shoulder. Plan/Medical Decision Making:The nature of the problem and all indicated treatment options available were discussed in detail with the patient. We have agreed to the following treatment plan: 1. Medication: Continue current medications. 2. Test(s)/Imaging/Referral(s):None. 3. Intervention: Patient is interested in another subacromial injection today. We will go ahead and perform this. She tolerated the procedure well without any complications. She can follow-up on with regard to that left shoulder on an as-needed basis. 4. Follow-up: As needed All of Chrissy De La Torre questions were answered today. She expressed a clear understanding of our discussion and is in agreement with the outlined treatment plan Narciso Rosario MD CC:Sam Jones [facility] 11-22-2021 Note HNO ID: [id number] Author: Sam Jones MD Service: ? Author Type: Physician Type: Progress Notes Filed: 11/23/2021 9:29 AM Note Text: FOLLOW UP APPOINTMENT Chief Complaint:/Reason for Visit: Established patient; Scheduled follow up appointment for new or existing problem and/or post-surgical evaluation History of Present Illness: Chrissy De La Torre presents today for follow-up. She has an extensive history. She had 4 prior surgeries to her right shoulder before seeing us. In 2018 she underwent a arthroscopic rotator cuff repair revision. In 2019 she underwent arthroscopic debridement and removal of loose body and retained hardware of her right shoulder. In April 2021 she underwent another arthroscopic debridement of her right shoulder. Regarding her right side she still notes she is having some issues. She is ready for some further surgical treatment given she is having difficulty living with issues. 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 Does not require any significant lifting pushing pulling or carrying. ROS: Constitutional: patient denies any recent fever or significant change in weight Cardiovascular: patient denies any chest pain at rest Respiratory: patient denies any shortness of breath or cough Gastrointestinal: patient denies any current abdominal discomfort Integumentary: patient denies any recent skin changes Musculoskeletal: as noted in the HPI Neurologic: as noted in the HPI Endocrine: patient denies a current diagnosis of diabetes Hematologic/Lymphatic: patient denies any easily bleeding, any recent infection and denies any recent observable lymph node enlargement Psychologic: negative for any recent depression or anxiety issues PAST MEDICAL HISTORY Diagnosis Date - Asymptomatic varicose veins - Dysmetabolic syndrome X - Esophageal reflux - HTN (hypertension) - Insomnia, unspecified - Internal hemorrhoids without mention of complication - Mixed hyperlipidemia - Panic disorder without agoraphobia - Peripheral neuropathy NCT 07/22/2012 - Premenopausal menorrhagia 04/15/2013 - Reflex sympathetic dystrophy of the lower limb - RSD (reflex sympathetic dystrophy) bilateral after left ankle fracture - Unspecified asthma(493.90) - Unspecified closed fracture of ankle Left Ankle fracture - Unspecified hypothyroidism off of meds. Current Outpatient Medications: - glimepiride (AMARYL) 4 mg tablet - oxyCODONE-acetaminophen (PERCOCET) 5-325 mg tablet - solifenacin 10 mg tablet - conjugated estrogens (PREMARIN) vaginal cream - fluconazole (DIFLUCAN) 100 mg tablet - cholecalciferol, vitamin D3, (VITAMIN D-3) 10 mcg (400 unit) cap - ezetimibe (ZETIA) 10 mg tablet - ondansetron (ZOFRAN) 4 mg tablet - LORazepam (ATIVAN) 1 mg tablet - omeprazole (PRILOSEC) 20 mg capsule - lisinopril-hydrochlorothiazide (PRINZIDE, ZESTORETIC) 20-25 mg per tablet - albuterol HFA (PROAIR HFA) 90 mcg/actuation inhaler - blood sugar diagnostic (ACCU-CHEK GENNY) test strip Problem List: reviewed and updated. Physical Exam: Constitutional: No acute distress, pleasant Resp: Non-labored breathing Vascular: No cyanosis Skin: No rashes noted Focused Musculoskeletal exam: General: Ambulates well; no other joint abnormalities noted. 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 Pulses: 2+ radial, ulnar; hands warm bilat, <2sec CR Compartments: soft and compressible Surgical incisions well-healed without infection or wound complications. Forward flexion limited to 90 degrees. External rotation to 10 degrees. Internal rotation to posterior SI. She has moderate to severe weakness in external rotation and resisted abduction. Her internal rotation strength testing appears intact. She is neurovascularly intact distally. Assessment: (M75.101, M12.811) Rotator cuff tear arthropathy, right (primary encounter diagnosis) (S46.011D) Traumatic complete tear of right rotator cuff, subsequent encounter Plan/Medical Decision Making:The nature of the problem and all indicated treatment options available were discussed in detail with the patient. We have agreed to the following treatment plan: 1. Medication: Continue current medications. 2. Test(s)/Imaging/Referral(s):None. 3. Intervention: At this point regarding her right shoulder she has a massive cuff tear with significant atrophy. We will get her referred over to one of our colleagues Dr. Bishop for further evaluation and treatment. Additionally we wrote her a pain prescription for her break through pain 4. Follow-up: PRN All of Chrissy De La Torre questions were answered today. She expressed a clear understanding of our discussion and is in agreement with the outlined treatment plan Narciso Rosario MD CC:Sam Jones [facility] 11-22-2021 History of Present illness Narrative Associated Order(s): Large Joint Arthro/Inj: L subacromial bursa Post-Procedure Diagnose(s): Rotator cuff syndrome of left shoulder Assessment/Primary Diagnosis: (S43.432D) Tear of left glenoid labrum, subsequent encounter (primary encounter diagnosis) (M75.102) Rotator cuff syndrome of left shoulder Fellow/resident history and physical examination reviewed and confirmed by the attending physician. The attending physician obtained additional history and performed focused physical examination. All imaging and laboratory studies were reviewed by the attending physician with fellow/resident and the patient. Treatment care plan discussed with the fellow/resident and completely explained to the patient. The attending physician was present for and supervised any injections. All of the patient's questions were answered by the attending physician. Large Joint Arthro/Inj: L subacromial bursa Informed Consent Consent Obtained: Verbal [place] Protocol A moment to CARE was completed. SIGN IN Personnel directly involved with the procedure wore the appropriate PPE. Special Equipment: N/A Patient/Surrogate Stated/Verified: Patient name, Date of , Relevant allergies and Intended procedure TIME OUT Intended patient and procedure match the source document(s). Consent documented and matches the intended procedure. No relevant labs, photos, and/or imaging studies were applicable for review. Correct side/site marked and visible. Medications required for procedure verified. No fire risk assessment and interventions applicable. No implant(s) inserted. 11/22/2021 11:49 AM The procedure site was prepped in the usual sterile fashion. Site: L subacromial bursa Aspirate: 0 mL Medications: 40 mg triamcinolone acetonide 40 mg/mL Anesthetics: 4 mL lidocaine (PF) 10 mg/mL (1 %) Outcome: Tolerated well, no immediate complications Post-injection instructions were reviewed with the patient and the patient voiced understanding of these instructions. SIGN OUT No specimen collected. No instruments, equipment or retained foreign bodies applicable. Post-procedure follow-up management communicated and Plan of Care Visit completed when applicable No images are attached to the encounter. SIGNATURE: Sam Jones MD PATIENT NAME: Chrissy De La Torre DATE: November 22, 2021 TIME: 11:49 AM PAGER/CONTACT #: FOLLOW UP APPOINTMENT Chief Complaint:/Reason for Visit: Established patient; Scheduled follow up appointment for new or existing problem and/or post-surgical evaluation History of Present Illness: Chrissy De La Torre presents today for follow-up. She has an extensive history. She had 4 prior surgeries to her right shoulder before seeing us. In 2018 she underwent a arthroscopic rotator cuff repair revision. In 2019 she underwent arthroscopic debridement and removal of loose body and retained hardware of her right shoulder. In April 2021 she underwent another arthroscopic debridement of her right shoulder. Has been seen for complaints of left shoulder rotator cuff symptoms in the past. She was last seen with us in June 2021. She had recently got an MRI which showed an intact cuff and some degenerative changes of her labrum. In June when she was last seen she was given a subacromial injection at that time. She presents today for follow-up She noted the last injection helped for some time. She is interested in another injection today. ROS: Constitutional: patient denies any recent fever or significant change in weight Cardiovascular: patient denies any chest pain at rest Respiratory: patient denies any shortness of breath or cough Gastrointestinal: patient denies any current abdominal discomfort Integumentary: patient denies any recent skin changes Musculoskeletal: as noted in the HPI Neurologic: as noted in the HPI Endocrine: patient denies a current diagnosis of diabetes Hematologic/Lymphatic: patient denies any easily bleeding, any recent infection and denies any recent observable lymph node enlargement Psychologic: negative for any recent depression or anxiety issues PAST MEDICAL HISTORY Diagnosis Date Asymptomatic varicose veins Dysmetabolic syndrome X Esophageal reflux HTN (hypertension) Insomnia, unspecified Internal hemorrhoids without mention of complication Mixed hyperlipidemia Panic disorder without agoraphobia Peripheral neuropathy NCT 07/22/2012 Premenopausal menorrhagia 04/15/2013 Reflex sympathetic dystrophy of the lower limb RSD (reflex sympathetic dystrophy) bilateral after left ankle fracture Unspecified asthma(493.90) Unspecified closed fracture of ankle Left Ankle fracture Unspecified hypothyroidism off of meds. Current Outpatient Medications: glimepiride (AMARYL) 4 mg tablet solifenacin 10 mg tablet conjugated estrogens (PREMARIN) vaginal cream oxyCODONE-acetaminophen (PERCOCET) 5-325 mg tablet fluconazole (DIFLUCAN) 100 mg tablet cholecalciferol, vitamin D3, (VITAMIN D-3) 10 mcg (400 unit) cap ezetimibe (ZETIA) 10 mg tablet ondansetron (ZOFRAN) 4 mg tablet LORazepam (ATIVAN) 1 mg tablet omeprazole (PRILOSEC) 20 mg capsule lisinopril-hydrochlorothiazide (PRINZIDE, ZESTORETIC) 20-25 mg per tablet albuterol HFA (PROAIR HFA) 90 mcg/actuation inhaler blood sugar diagnostic (ACCU-CHEK GENNY) test strip Problem List: reviewed and updated. Physical Exam: Constitutional: No acute distress, pleasant Resp: Non-labored breathing Vascular: No cyanosis Skin: No rashes noted Focused Musculoskeletal exam: General: Ambulates well; no other joint abnormalities noted. 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 Pulses: 2+ radial, ulnar; hands warm bilat, <2sec CR Compartments: soft and compressible No cutaneous abnormalities. She has forward flexion 140 external rotation to 40 internal rotation to lower lumbar. Her strength testing is some mild weakness but overall preserved. She is neurovascularly intact. Assessment: Rotator cuff syndrome left shoulder. Plan/Medical Decision Making:The nature of the problem and all indicated treatment options available were discussed in detail with the patient. We have agreed to the following treatment plan: 1. Medication: Continue current medications. 2. Test(s)/Imaging/Referral(s):None. 3. Intervention: Patient is interested in another subacromial injection today. We will go ahead and perform this. She tolerated the procedure well without any complications. She can follow-up on with regard to that left shoulder on an as-needed basis. 4. Follow-up: As needed All of Chrissy De La Torre questions were answered today. She expressed a clear understanding of our discussion and is in agreement with the outlined treatment plan Narciso Rosario MD CC:Sam Jones documented in this encounter [facility] 11-22-2021 History of Present illness Narrative Assessment/Primary Diagnosis: (M75.101, M12.811) Rotator cuff tear arthropathy, right (primary encounter diagnosis) (S46.011D) Traumatic complete tear of right rotator cuff, subsequent encounter Fellow/resident history and physical examination reviewed and confirmed by the attending physician. The attending physician obtained additional history and performed focused physical examination. All imaging and laboratory studies were reviewed by the attending physician with fellow/resident and the patient. Treatment care plan discussed with the fellow/resident and completely explained to the patient. The attending physician was present for and supervised any injections. All of the patient's questions were answered by the attending physician. FOLLOW UP APPOINTMENT Chief Complaint:/Reason for Visit: Established patient; Scheduled follow up appointment for new or existing problem and/or post-surgical evaluation History of Present Illness: Chrissy De La Torre presents today for follow-up. She has an extensive history. She had 4 prior surgeries to her right shoulder before seeing us. In 2018 she underwent a arthroscopic rotator cuff repair revision. In 2019 she underwent arthroscopic debridement and removal of loose body and retained hardware of her right shoulder. In April 2021 she underwent another arthroscopic debridement of her right shoulder. Regarding her right side she still notes she is having some issues. She is ready for some further surgical treatment given she is having difficulty living with issues. 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 Does not require any significant lifting pushing pulling or carrying. ROS: Constitutional: patient denies any recent fever or significant change in weight Cardiovascular: patient denies any chest pain at rest Respiratory: patient denies any shortness of breath or cough Gastrointestinal: patient denies any current abdominal discomfort Integumentary: patient denies any recent skin changes Musculoskeletal: as noted in the HPI Neurologic: as noted in the HPI Endocrine: patient denies a current diagnosis of diabetes Hematologic/Lymphatic: patient denies any easily bleeding, any recent infection and denies any recent observable lymph node enlargement Psychologic: negative for any recent depression or anxiety issues PAST MEDICAL HISTORY Diagnosis Date Asymptomatic varicose veins Dysmetabolic syndrome X Esophageal reflux HTN (hypertension) Insomnia, unspecified Internal hemorrhoids without mention of complication Mixed hyperlipidemia Panic disorder without agoraphobia Peripheral neuropathy NCT 07/22/2012 Premenopausal menorrhagia 04/15/2013 Reflex sympathetic dystrophy of the lower limb RSD (reflex sympathetic dystrophy) bilateral after left ankle fracture Unspecified asthma(493.90) Unspecified closed fracture of ankle Left Ankle fracture Unspecified hypothyroidism off of meds. Current Outpatient Medications: glimepiride (AMARYL) 4 mg tablet solifenacin 10 mg tablet conjugated estrogens (PREMARIN) vaginal cream oxyCODONE-acetaminophen (PERCOCET) 5-325 mg tablet fluconazole (DIFLUCAN) 100 mg tablet cholecalciferol, vitamin D3, (VITAMIN D-3) 10 mcg (400 unit) cap ezetimibe (ZETIA) 10 mg tablet ondansetron (ZOFRAN) 4 mg tablet LORazepam (ATIVAN) 1 mg tablet omeprazole (PRILOSEC) 20 mg capsule lisinopril-hydrochlorothiazide (PRINZIDE, ZESTORETIC) 20-25 mg per tablet albuterol HFA (PROAIR HFA) 90 mcg/actuation inhaler blood sugar diagnostic (ACCU-CHEK GENNY) test strip Problem List: reviewed and updated. Physical Exam: Constitutional: No acute distress, pleasant Resp: Non-labored breathing Vascular: No cyanosis Skin: No rashes noted Focused Musculoskeletal exam: General: Ambulates well; no other joint abnormalities noted. 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 Pulses: 2+ radial, ulnar; hands warm bilat, <2sec CR Compartments: soft and compressible Surgical incisions well-healed without infection or wound complications. Forward flexion limited to 90 degrees. External rotation to 10 degrees. Internal rotation to posterior SI. She has moderate to severe weakness in external rotation and resisted abduction. Her internal rotation strength testing appears intact. She is neurovascularly intact distally. Assessment: No diagnosis found. Plan/Medical Decision Making:The nature of the problem and all indicated treatment options available were discussed in detail with the patient. We have agreed to the following treatment plan: 1. Medication: Continue current medications. 2. Test(s)/Imaging/Referral(s):None. 3. Intervention: At this point regarding her right shoulder she has a massive cuff tear with significant atrophy. We will get her referred over to one of our colleagues Dr. Bishop for further evaluation and treatment. Additionally we wrote her a pain prescription for her break through pain 4. Follow-up: PRN All of Chrissy De La Torre questions were answered today. She expressed a clear understanding of our discussion and is in agreement with the outlined treatment plan Narciso Rosario MD CC:Sam Jones documented in this encounter [facility] 05-02-2021 Note HNO ID: [id number] Author: Maria Luz Enriquez APRN.SYED Service: ? Author Type: Nurse Manual Tester Type: Anesthesia Procedure Notes Filed: 05/02/2021 11:02 AM Note Text: ANESTHESIOLOGY PROCEDURE NOTE Airway General Information Procedure Start Time/Medication Administration: 05/02/2021 10:52 AM Patient location during procedure: OR Patient identity confirmed: arm band Staffing Performed by: PROFESSOR OF FOOD BIOCHEMISTRY Indications and Patient Condition Preoxygenated: yes Indications for airway management: anesthesia Method: asleep Final Airway Details Final airway type: supraglottic airway Number of attempts at approach: 1 Final Supraglottic Airway: i-gel Size 4 Seal Adequate: yes SIGNATURE: Maria Luz Enriquez APRN.PROFESSOR OF FOOD BIOCHEMISTRY PATIENT NAME: Chrissy De La Torre DATE: May 02, 2021 TIME: 11:01 AM CSN: [id number] [facility] 05-02-2021 Note HNO ID: [id number] Author: Richie Tao III, MD Service: Anesthesiology Author Type: Anesthesiologist Type: Anesthesia Procedure Notes Filed: 05/02/2021 11:00 AM Note Text: ANESTHESIOLOGY PROCEDURE NOTE Peripheral Nerve Block General Information Procedure Start Time/Medication Administration: 05/02/2021 10:22 AM Procedure End time: 05/02/2021 10:32 AM Patient location during procedure: pre-op Timeout Performed Pre-procedure: timeout performed Consent Obtained: Yes Patient identity confirmed: arm band and patient Reason for block: post-op pain management/at surgeon's request Staffing Anesthesiologist: Richie Tao III, MD Performed by: anesthesiologist Preparation Sterility Preparation: hand hygiene performed prior to procedure, surgical cap used, mask used, sterile drape used during line insertion, skin prep agent completely dried prior to procedure Site Prep: Chloraprep Pre-Procedure Neuro Exam Location: RUE Sensory: intact Motor: intact Procedure Details Patient Position: sitting Monitoring: Pulse OX, EKG and NIBP Block Type Upper Extremity: brachial plexus Approach: interscalene Laterality: right Injection Technique: single-shot Ultrasound Guided: Yes Image in Chart: yes Local Infiltration: Yes Needle Needle Type: echogenic Needle Gauge: 22 G Needle Length: 50 mm Needle Localization: ultrasound Assessment Injection assessment: negative aspiration, no paresthesia on injection, incremental injection and local visualized surrounding nerve on ultrasound Paresthesia: none Post-Procedure Neuro Exam Expected Regional Anesthesia: Yes Medications Administered Bupivacaine (PF) 0.5 % (5 mg/mL) injection, 10 mL bupivacaine liposome (PF) 1.3 % (13.3 mg/mL) injection (EXPAREL), 133 mg SIGNATURE: Richie Tao MD PATIENT NAME: Chrissy De La Torre DATE: May 02, 2021 TIME: 11:00 AM CSN: [id number] [facility] 05-02-2021 Note HNO ID: [id number] Author: Shana Rene RN Service: Nursing Author Type: Registered Nurse Type: Nursing Progress Note Filed: 05/02/2021 10:10 AM Note Text: CHEPE Presley obtained UA results. Okay to proceed with the surgery today. [facility] 05-02-2021 Note HNO ID: [id number] Author: Shana Rene RN Service: Nursing Author Type: Registered Nurse Type: Nursing Progress Note Filed: 05/02/2021 9:32 AM Note Text: Dr. Tao spoke with CHEPE Presley regarding pt's c/o. [facility] documented as of this encounter (statuses as of 11/22/2021) [facility]09-12-2013 History of Past illness Narrative* Problem Noted Date Resolved Date Premenopausal menorrhagia 04/15/20132013 Impaired fasting blood sugar 12/28/2010 Overview: A1c 6.4 as of --> Diagnostic for DM at 6.5% or higher, per current criteria Hypothyroidism 10/05/2009 10/29/2013 Routine general medical exam ination at a health care facility 08/30/2009 01/13/2013 Overview: 08/30/2009, from Dr. 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 08/30/19 10 Closed bimalleolar fracture 01/30/200602/01 Closed bimalleolar fracture 11/25/200501/03 Dysmetabolic syndrome X 03/01/20 15 Mitral valve disorders(424.0) Rheumatoid arthritis(714.0) 01/03 Overview: Dr Ruiz documented as of this encounter (statuses as of 11/22/2021) [facility]-12-2013 History of Past illness Narrative* Problem Noted Date Resolved Date Premenopausal menorrhagia 04/15/20132013 Impaired fasting blood sugar 12/28/2010 Overview: A1c 6.4 as of --> Diagnostic for DM at 6.5% or higher, per current criteria Hypothyroidism 10/05/2009 10/29/2013 Routine general medical exam ination at a health care facility 08/30/2009 01/13/2013 Overview: 08/30/2009, from Dr. 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 08/30/19 10 Closed bimalleolar fracture 01/30/200602/01 Closed bimalleolar fracture 11/25/200501/03 Dysmetabolic syndrome X 03/01/20 15 Mitral valve disorders(424.0) Rheumatoid arthritis(714.0) 01/03 Overview: Dr Ruiz documented as of this encounter (statuses as of 11/29/2021) [facility] History of Past illness Narrative* Problem Noted Date Resolved Date Premenopausal menorrhagia 04/15/20132013 Impaired fasting blood sugar 12/28/2010 Overview: A1c 6.4 as of --> Diagnostic for DM at 6.5% or higher, per current criteria Hypothyroidism 10/05/2009 10/29/2013 Routine general medical exam ination at a health care facility 08/30/2009 01/13/2013 Overview: 08/30/2009, from Dr. 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 08/30/19 10 Closed bimalleolar fracture 01/30/200602/01 Closed bimalleolar fracture 11/25/200501/03 Dysmetabolic syndrome X 03/01/20 15 Mitral valve disorders(424.0) Rheumatoid arthritis(714.0) 01/03 Overview: Dr Ruiz documented as of this encounter (statuses as of 12/03/2021) [facility]09-12-2013 History of Past illness Narrative* Problem Noted Date Resolved Date Premenopausal menorrhagia 04/15/20132013 Impaired fasting blood sugar 12/28/2010 Overview: A1c 6.4 as of --> Diagnostic for DM at 6.5% or higher, per current criteria Hypothyroidism 10/05/2009 10/29/2013 Routine general medical exam ination at a health care facility 08/30/2009 01/13/2013 Overview: 08/30/2009, from Dr. 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 08/30/19 10 Closed bimalleolar fracture 01/30/200602/01 Closed bimalleolar fracture 11/25/200501/03 Dysmetabolic syndrome X 03/01/20 15 Mitral valve disorders(424.0) Rheumatoid arthritis(714.0) 01/03 Overview: Dr Ruiz documented as of this encounter (statuses as of 03/05/2022) [facility]09-12-2013 History of Past illness Narrative* Problem Noted Date Resolved Date Premenopausal menorrhagia 04/15/20132013 Impaired fasting blood sugar 12/28/2010 Overview: A1c 6.4 as of --> Diagnostic for DM at 6.5% or higher, per current criteria Hypothyroidism 10/05/2009 10/29/2013 Routine general medical exam ination at a health care facility 08/30/2009 01/13/2013 Overview: 08/30/2009, from Dr. 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 08/30/19 10 Closed bimalleolar fracture 01/30/200602/01 Closed bimalleolar fracture 11/25/200501/03 Dysmetabolic syndrome X 03/01/20 15 Mitral valve disorders(424.0) Rheumatoid arthritis(714.0) 01/03 Overview: Dr Ruiz documented as of this encounter (statuses as of 03/19/2022) [facility] Appointment Date:01/06/2023 04:30:00 PM Scheduled Provider:LJ RAMSEY Location:[facility] Appointment Type:PC OV Appointment Date:02/05/2023 09:30:00 AM Scheduled Provider:LJ RAMSEY Location:[facility] Appointment Type: OV [facility] Evaluation + Plan note Future Appointments Appointment Date:03/07/2023 10:00:00 AM Scheduled Provider:LJ RAMSYE Location:[facility] Appointment Type: OV Future Scheduled Tests Laboratory* Basic Metabolic Panel 12/20/22 [facility] Evaluation + Plan note Future Appointments Appointment Date:03/07/2023 10:00:00 AM Scheduled Provider:LJ RAMSEY [facility] [facility] Appointment Type: OV Diagnostic Tests Pending * N. gonorrhoeae PCR 02/18/23 * Chlamydia trachomatis PCR 02/18/23 Future Scheduled Tests Laboratory* Rapid HIV (AO) 02/18/23 * Affirm Pathogens DNA Direct Probe 02/18/23 * Basic Metabolic Panel 12/20/22 * Basic Metabolic Panel 01/17/23 * Complete Blood Count 01/17/23 [facility] Evaluation note* Diagnosis Rotator cuff tear arthropathy, right- Primary Traumatic complete tear of right rotator cuff, subsequent encounter [facility] Tear of left glenoid labrum, subsequent encounter- Primary Rotator cuff syndrome of left shoulder Disorders of bursae and tendons in shoulder region, unspecified documented in this encounter [facility] note* Diagnosis Pain- Primary Generalized pain documented in this encounter [facility] note* Diagnosis History of failed repair of rotator cuff- Primary Other postprocedural status Rotator cuff tear arthropathy of right shoulder Traumatic arthropathy, shoulder region documented in this encounter [facility] note* Diagnosis Rotator cuff tear arthropathy of right shoulder- Primary Traumatic arthropathy, shoulder region documented in this encounter [facility] note* Diagnosis Impingement syndrome of left shoulder- Primary Other affections of shoulder region, not elsewhere classified Chronic left shoulder pain Pain in joint, shoulder region documented in this encounter [facility] course Narrative No data available for this section [facility] Hospital Discharge instructions No data available for this section [facility] Progress note No data available for this section [facility] Reason for referral (narrative)* Diagnostic Procedure Only (Routine) - Pending Review Specialty Diagnoses / Procedures Referred By Saadia smith Referred To Contact XR IMAGING Diagnoses Pain Procedures XR SHOULDER GENERAL 3V OR MORE AP/TRUE AP/OTHER RIGHT RADEX SHOULDER COMPLETE MINIMUM 2 VIEWS Rodolfo Bishop MD [address] [place] [address] Xr Imaging Referral ID Status Reason Start Date Expiration Date Visits Requested Visits Authorized [id number] Pending Review Auto-Generat ed Referral 11/29/2021 12/29/2022 1 1 [facility] for referral (narrative)* Diagnostic Procedure Only (Routine) - Pending Review Specialty Diagnoses / Procedures Referred By Saadia smith Referred To Contact XR IMAGING Diagnoses Rotator cuff tear arthropathy of right shoulder Procedures XR SHOULDER GENERAL 3V OR MORE AP/TRUE AP/OTHER RIGHT RADEX SHOULDER COMPLETE MINIMUM 2 VIEWS Livia Zurita PA-C [address] [place] [address] Xr Imaging Referral ID Status Reason Start Date Expiration Date Visits Requested Visits Authorized [id number] Pending Review Auto-Generat ed Referral 03/05/2022 04/04/2023 1 1 [facility] Summary Purpose Family History No Family History Records FoundNo Family History Records FoundNo Family History Records FoundNo Family History Records Found No data available for this section No data available for this section No data available for this section No Family History Records Found Advance Directives No Advanced Directives Records FoundDocuments on File Type Date Recorded 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 Advance Directive(s) Advance Directive(s) 04/12/2021 10:34 AM Advance Directive(s) 05/02/2020 3:18 PM Advance Directive(s) 10/21/2019 10:23 AM Advance Directive(s) 04/20/2019 9:49 AM Documents on File Type Date Recorded 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 Advance Directive(s) Advance Directive(s) 04/12/2021 10:34 AM Advance Directive(s) 05/02/2020 3:18 PM Advance Directive(s) 10/21/2019 10:23 AM Advance Directive(s) 04/20/2019 9:49 AM Medications Administered Section Inactive Administered Medications - up to 3 most recent administrations Medication Order MAR Action Action Date Dose Rate Site lidocaine (PF) 10 mg/mL (1 %) 4 mL injection (XYLOCAINE) 4 mL, Injection - FOR ORTHO USE ONLY, ONE TIME INJECTION, 1 dose, Starting on Jacinda 11/22/21 at 1149, Until Jacinda 11/22/21 at 1149 Given 11/22/2021 11:49 AM EDT 4 mL triamcinolone acetonide 40 mg injection (KeNALog 40) 40 mg, Injection - FOR ORTHO USE ONLY, ONE TIME INJECTION, 1 dose, Starting on Jacinda 11/22/21 at 1149, Until Jacinda 11/22/21 at 1149 Given 11/22/2021 11:49 AM EDT 40 mg Inactive Administered Medications - up to 3 most recent administrations Medication Order MAR Action Action Date Dose Rate Site betamethasone acetate-betamethasone sodium phosphate 6 mg injection (CELESTONE) 6 mg, Injection - FOR ORTHO USE ONLY, ONE TIME INJECTION, 1 dose, Starting on Fri03/04/22 at 1623, Until Fri03/04/22 at 1623 Given 03/04/2022 4:23 PM EDT 6 mg lidocaine (PF) 10 mg/mL (1 %) 4 mL injection (XYLOCAINE) 4 mL, Injection - FOR ORTHO USE ONLY, ONE TIME INJECTION, 1 dose, Starting on Fri03/04/22 at 1623, Until Fri03/04/22 at 1623 Given 03/04/2022 4:23 PM EDT 4 mL Additional Source Comments INFORMATION SOURCE (unrecogn ized section and content) DATE CREATED AUTHOR AUTHOR'S ORGANIZ ATION 05/03/2021 [facility] DATE CREATED AUTHOR AUTHOR'S ORGANIZ ATION 11/07/2022 [facility] DATE CREATED AUTHOR AUTHOR'S ORGANIZ ATION 12/10/2022 [facility] DATE CREATED AUTHOR AUTHOR'S ORGANIZ ATION 07/31/2023 [facility] Source Comments (unrecognize d section and content) In the event this informatio n is protected by the Federal Confidentiality of Alcohol and Drug Abuse Patient Records regulations: The Federal rules restrict any use of the information to criminally investigate or prosecute any alcohol or drug abuse patient.[facility] the event this information is protected by the Federal Confidentiality of Alcohol and Drug Abuse Patient Records regulations: The Federal rules restrict any use of the information to criminally investigate or prosecute any alcohol or drug abuse patient.[facility] the event this information is protected by the Federal Confidentiality of Alcohol and Drug Abuse Patient Records regulations: The Federal rules restrict any use of the information to criminally investigate or prosecute any alcohol or drug abuse patient.[facility] the event this information is protected by the Federal Confidentiality of Alcohol and Drug Abuse Patient Records regulations: The Federal rules restrict any use of the information to criminally investigate or prosecute any alcohol or drug abuse patient.[facility] the event this information is protected by the Federal Confidentiality of Alcohol and Drug Abuse Patient Records regulations: The Federal rules restrict any use of the information to criminally investigate or prosecute any alcohol or drug abuse patient.[facility] the event this information is protected by the Federal Confidentiality of Alcohol and Drug Abuse Patient Records regulations: The Federal rules restrict any use of the information to criminally investigate or prosecute any alcohol or drug abuse patient.[facility] Reason for Visit (unrecogniz ed section and content) Specialty Diagnoses / Procedures Referred By Saadia smith Referred To Contact [facility] Diagnoses Follow up for: ARTHROSCOPY SHOULDER W/ DEBRIDEMENT LIMITED 1 OR 2 DISCRETE STRUCTURES [99636] - Shoulder - Right Procedures follow up for RIGHT shoulder - surgery date was 05/02/21 [place] [address] [id number] [facility] [address] [place] [address] Referral ID Status Reason Start Date Expiration Date Visits Re quested Visits Authorized [id number] Closed 06/26/2021 09/24/2021 1 1 Reason Comments Injections Reason Comments New Pain Stiffness Swelling Weakness Numbness/Tingling Specialty Diagnoses / Procedures Referred By Saadia smith Referred To Contact Orthopedics / ORTHOPAEDIC SURGERY Diagnoses SHOULDER REPLACEMENT CONSULT,RT Procedures REFERRAL TO [facility] [place] [address] [address] [id number] Rodolfo Bishop MD [address] [place] [address] Referral ID Status Reason Start Date Expiration Date Visits Requested Visits Authorized [id number] Pending Review Clearance Not Met -Financial Clearance Bypassed 12/03/2021 02/01/2022 1 1 Reason Comments xray and MRI 06-[address] Irwin ritter for glenoid tear left labrum and Rotator cuff syndrome left shoulder 11-22-21 New Pain Care Teams (unrecognized sec tion and content) Equipment Service Lead Relationship Specialty Start Date End Date Karl Pichardo MD [address] [place] [address] PCP - General Family Practice 01/08/18 Equipment Service Lead Relationship Specialty Start Date End Date Karl Pichardo MD [address] [place] [address] PCP - General Family Practice 01/08/18 Equipment Service Lead Relationship Specialty Start Date End Date Karl Pichardo MD [address] [place] [address] PCP - General Family Practice 01/08/18 Equipment Service Lead Relationship Specialty Start Date End Date Karl Pichardo MD [address] [place], [place] [address] PCP - General Family Practice 01/08/18 FOR RECORDS PERTAINING TO PATIENTS WHO ARE OR HAVE BEEN ENROLLED IN A CHEMICAL DEPENDENCY/SUBSTANCEABUSE PROGRAM, SOME INFORMATION MAY BE OMITTED. This clinical summary was aggregated from multiple sources. Caution should be exercised in using it in the provision of clinical care. This summary normalizes information from multiple sources, and as a consequence, information in this document may materially change the coding, format and clinical context of patient data. In addition, data may be omitted in some cases. CLINICAL DECISIONS SHOULD BE BASED ON THE PRIMARY CLINICAL RECORDS. [employer] provides no warranty or guarantee of the accuracy or completeness of information in this document.
[2023-08-12] VITALS (25 sets, daily range): BP systolic 124–159; BP diastolic 74–97; PULSE 81–95; RESP 13–22; O2SAT 85–98
[2023-08-12] MEDS: 0.9% Normal Saline (1000mL) 1,000 ML 999 ML IV (00:10)
[2023-08-12 01:27] LABS: Bedside Glucose 307 mg/dL (74-106)
[2023-08-12 02:58] LABS: Bedside Glucose 308 mg/dL (74-106)
== END 2023-08-12 03:25 | disposition home or self-care (01) ==
PROVIDERS: Emergency Provider Emergency Medicine; PCP Registered Nurse; Visit Provider Emergency Medicine
DX: F10.929 Alcohol use, unspecified with intoxication, unspecified (principal); E11.65 Type 2 diabetes mellitus with hyperglycemia; Z86.73 Personal history of transient ischemic attack (TIA), and cerebral infarction without residual deficits
CPT/HCPCS: 80053; 80307; 80320; 82009; 82962; 85025; 93005; 96374; 96376; 99284; J7030; J7050; A4216; G0480

== ENCOUNTER 2023-08-16 10:11 | Emergency (ER) | payer MEDICAID, SELFPAY ==
[2023-08-16 10:12] VITALS: BP 146/92; PULSE 89; RESP 16; TEMP 36; O2SAT 98; BMI 28.6
--- NOTE | 2023-08-16 10:28 | CT_ITS ---
EXAM: CT HEAD WITHOUT INTRAVENOUS CONTRAST CLINICAL INDICATION: trauma TECHNIQUE: Multiple axial images were obtained of the head without intravenous contrast. This CT exam was performed using one or more of the following dose reduction techniques: automated exposure control, adjustment of the mA and/or kV according to patient size, and/or use of iterative reconstruction technique. COMPARISON: No relevant prior studies available. FINDINGS: BRAIN AND EXTRA-AXIAL SPACES: Normal. No intra- or extra-axial hemorrhage. No acute infarct. No intracranial mass or mass effect. There is preservation of the kaiser/white matter interface. Posterior fossa structures are unremarkable. Ventricles are appropriate for age. No hydrocephalus. Basal cisterns are patent. BONES/JOINTS: No suspicious lytic or blastic abnormality. SOFT TISSUES: Right frontal scalp swelling. SINUSES: Minimal mucosal thickening within the left maxillary sinus. MASTOID AIR CELLS: Normal. Clear. CT/Brain/Head without Contrast IMPRESSION: No acute intracranial abnormality. Electronically Signed: Claudio Carlos MD at 11:21 EST ,
--- NOTE | 2023-08-16 10:28 | CT_ITS ---
EXAM: CT CERVICAL SPINE WITHOUT INTRAVENOUS CONTRAST CLINICAL INDICATION: trauma TECHNIQUE: Helically acquired images were obtained of the cervical spine without intravenous contrast. 2D reformatted images were reviewed. This CT exam was performed using one or more of the following dose reduction techniques: automated exposure control, adjustment of the mA and/or kV according to patient size, and/or use of iterative reconstruction technique. COMPARISON: No relevant prior studies available. FINDINGS: VERTEBRAE: No acute fracture or subluxation. DISCS/SPINAL CANAL/NEURAL FORAMINA: Anterior fusion of C3-C6 with multilevel disc implantation. No spinal or neural foraminal stenosis. SOFT TISSUES: Normal. No prevertebral soft tissue swelling. LYMPH NODES: Normal. No cervical adenopathy. LUNG APICES: Unremarkable as visualized. CT/Spine Cervical without Contras IMPRESSION: No acute abnormality. Surgical fusion of C3-C6. Electronically Signed: Claudio Carlos MD at 11:22 EST ,
--- NOTE | 2023-08-16 10:29 | EDS_ITS ---
HPI History of Present Illness Chief Complaint: Head Injury Informant: patient Narrative Narrative: 58-year-old female presenting to the emergency room with head injury. Patient states that 2 nights ago she got up to urinate and tripped over her dog striking her head on the dresser. She believes she had a loss of consciousness. She states that she has recently been out of her medication for diabetes and blood sugars have been elevated so she has had frequent urination. She states that she has had some confusion since the injury. She notes a black eye . She notes contusion to the right temporal parietal scalp. She denies being on blood thinner. She notes some generalized neck soreness with movement. [facility] Medical History Acute otitis externa of left ear Acute sinusitis, unspecified Arthritis Asthma Asthma Bronchitis Cardiology follow-up encounter Chest pain Contusion of right ankle Contusion of right foot Depressed Diabetes Diabetes mellitus type II, controlled Difficulty swallowing Dyspnea on exertion Easy bruising Episode of syncope Essential hypertension SACHA (generalized anxiety disorder) Gastric reflux GERD (gastroesophageal reflux disease) GI bleed Hemorrhoids High cholesterol History of colon polyps History of diabetes mellitus History of echocardiogram History of stress test Hyperlipidemia Injury of head and neck Marijuana use Nausea & vomiting Near syncope Non-smoker Orthostatic hypotension Pneumonia Positive PPD, treated PTSD (post-traumatic stress disorder) Restless legs RSD (reflex sympathetic dystrophy) Shoulder pain Statin intolerance Strain of right hip Strain of unspecified muscle, fascia and tendon at shoulder and upper arm level, right arm, initial encounter TIA (transient ischemic attack) Urinary tract infection with hematuria Wears glasses Home Medications omeprazole 20 mg capsule,delayed release 20 mg PO DAILY GERD 01/04/20 [History Last Taken Unknown] ezetimibe 10 mg tablet 10 mg PO DAILY CHOLESTEROL #90 tabs 04/19/21 [Rx Last Taken Unknown] diphenhydramine HCl 25 mg capsule 25 mg PO DAILY PRN allergy symptoms 03/28/22 [History Last Taken Unknown] triamcinolone acetonide 0.1 % topical cream 1 applic topical BID #30 grams 05/27/22 [Rx Last Taken Unknown] cyclobenzaprine 10 mg tablet 10 mg PO TID PRN Muscle Spasm #20 TABLETS 09/30/22 [Rx Last Taken Unknown] duloxetine 60 mg capsule,delayed release 120 mg (2 x 60 mg) PO DAILY ANXIETY 30 days #60 caps 03/14/23 [Rx Last Taken Unknown] glimepiride 2 mg tablet 2 mg PO DAILY #90 tabs 11/27/22 [Rx Last Taken Unknown] albuterol sulfate 90 mcg/actuation aerosol inhaler (Ventolin HFA) 2 puff inhalation Q4H PRN PRN Wheezing or shortness of breath #1 inh 01/04/23 [Rx Last Taken Unknown] potassium chloride 20 mEq tablet,extended release(part/cryst) 20 meq PO BID #10 tabs 01/04/23 [Rx Last Taken Unknown] flash glucose sensor (FreeStyle Tanmay 2 Sensor kit) #2 ea 02/27/23 [Rx Last Taken Unknown] insulin glargine 100 unit/mL (3 mL) subcutaneous pen (Basaglar KwikPen U-100 Insulin) 25 unit (0.25 mL) subcut QAM #15 mL 02/27/23 [Rx Last Taken Unknown] metronidazole 500 mg tablet 500 mg PO BID 02/27/23 [History Last Taken Unknown] pen needle, diabetic 32 gauge x 5/32 (BD Ultra-Fine Thais Pen Needle) #100 ea 03/05/23 [Rx Last Taken Unknown] alcohol swabs 1 pad topical 4X/DAY #200 ea 04/28/23 [Rx Last Taken Unknown] furosemide 40 mg tablet 40 mg PO DAILY PRN 04/28/23 [History Last Taken Unknown] insulin aspart U-100 100 unit/mL (3 mL) subcutaneous pen (Novolog FlexPen U-100 Insulin aspart) 15 unit (0.15 mL) subcut TID #13.5 mL 04/28/23 [Rx Last Taken Unknown] losartan 25 mg tablet 25 mg PO DAILY #30 tabs 04/28/23 [Rx Last Taken Unknown] ondansetron 4 mg disintegrating tablet 4 mg PO Q6H PRN nausea and vomiting #10 tabs 04/28/23 [Rx Last Taken Unknown] pen needle, diabetic 32 gauge x 5/32 (BD Ultra-Fine Thais Pen Needle) #100 ea 04/28/23 [Rx Last Taken Unknown] lorazepam 1 mg tablet 0.5 mg (1/2 x 1 mg) PO DAILY PRN Anxiety #30 tabs 05/14/23 [Rx Last Taken Unknown] meclizine 25 mg tablet 25 mg PO TID PRN dizziness #30 tabs 05/23/23 [Rx Last Taken Unknown] allopurinol 100 mg tablet 100 mg PO DAILY 06/18/23 [History Last Taken Unknown] dulaglutide 0.75 mg/0.5 mL subcutaneous pen injector (Trulicity) 0.75 mg (0.5 mL) subcut QWEEK #2 mL 06/23/23 [Rx Last Taken Unknown] Allergy/AdvReac Type Severity Reaction Status Date / Time adalimumab [From Humira] Allergy Unknown Verified 08/11/23 21:50 amoxicillin trihydrate Allergy Unknown Verified 08/11/23 21:50 [From Augmentin] codeine Allergy Itching Verified 08/11/23 21:50 etanercept [From Enbrel] Allergy Unknown Verified 08/11/23 21:50 leflunomide [From Arava] Allergy Other Verified 08/11/23 21:50 metoprolol tartrate Allergy Unknown Verified 08/11/23 21:50 [From Lopressor] morphine sulfate Allergy Unknown Verified 08/11/23 21:50 [From Embeda] naltrexone HCl [From Embeda] Allergy Unknown Verified 08/11/23 21:50 oxymorphone [Oxymorphone] Allergy Unknown Verified 08/11/23 21:50 pioglitazone HCl [From Actos] Allergy Other Verified 08/11/23 21:50 pneumococcal 23-valent Allergy Unknown Verified 08/11/23 21:50 polysacchari [From Pneumovax 23] potassium clavulanate Allergy Unknown Verified 08/11/23 21:50 [From Augmentin] Slfpzck-LYT-QbM Reductase Allergy Unknown Verified 08/11/23 21:50 Inhibitor [Lnawqli-Onn-Icj Reductase Inhibitor] Sulfa (Sulfonamide Allergy Anaphylaxis Verified 08/11/23 21:50 Antibiotics) sulfamethoxazole Allergy Anaphylaxis Verified 08/11/23 21:50 [From Bactrim] telithromycin [From Ketek] Allergy Unknown Verified 08/11/23 21:50 tramadol HCl [From Ultram] Allergy Unknown Verified 08/11/23 21:50 trimethoprim [From Bactrim] Allergy Anaphylaxis Verified 08/11/23 21:50 Family History Father Diabetes Hypertension Mother Diabetes Hypertension Colon polyp Other Cancer Surgical History History of appendectomy History of arthroscopy of right knee History of colonoscopy History of hysterectomy Hx of shoulder surgery Social History household members: none Smoking Status: Never smoker alcohol intake: current alcohol intake frequency: 0-2 drinks per day Alcohol t ype: hard liquor substance use type: other details: Gummies ROS ROS ED Constitutional Constitutional ED: Denies chills or weight loss Eyes Eyes: Reports other Details: Patient states she had unequal pupils yesterday. She notes ecchymosis around the right eye. ; Denies change in vision or diplopia ENT ENT ED: Denies ear pain, rhinorrhea or sore throat Cardiovascular Cardiovascular: Denies chest pain, orthopnea, palpitations or racing heartbeat Respiratory/Chest Respiratory/Chest: Denies cough, dyspnea or orthopnea Gastrointestinal Gastrointestinal: Denies abdominal pain, diarrhea, nausea or vomiting Genitourinary Genitourinary ED: Denies dysuria, hematuria or urinary frequency Musculoskeletal Musculoskeletal: Reports neck pain; Denies arthralgias or myalgias Integumentary Denies abscess or rash Neurologic Neurologic: Reports headache(s) and other Details: Patient reports slow thinking sometimes forgetfulness. ; Denies weakness Psychiatric Psychiatric: Denies anxiety, depression, suicidal ideation or suicidal thoughts Endocrine Endocrinology: Denies polydipsia, polyphagia or polyuria Allergic/Immunologic Allergic/Immunologic ED: Denies mouth swelling, tongue swelling or urticaria EXAM Physical Exam Const Vital Signs: 08/16/23 10:12 Temperature 96.8 F L Temperature Source Temporal Pulse Rate 89 Respiratory Rate 16 Blood Pressure 146/92 H Blood Pressure Mean 110 Pulse Ox 98 Oxygen Delivery Method Room Air Positive well nourished and well developed General Appearance ED: well developed HEENT Reports normocephalic and moist mucous membranes HEENT Narrative: There is a purpleish ecchymosis in the right temporal parietal scalp. No palpable bony depression. The patient has right periorbital ecchymosis of a dark purple hue. There is no hyphema. No subconjunctival hemorrhage. No palpable periorbital depression. Eyes PERRL and EOMs intact bilaterally Neck no lymphadenopathy, supple and no JVD Neck Narrative: Mild tenderness to palpation. Though the patient on her own fully ranges the neck. Resp normal respiratory effort and clear to auscultation bilaterally Cardio regular rate, regular rhythm and no murmurs GI normal to inspection, nondistended, normoactive bowel sounds and non-tender Palpation: soft Back/Spine no CVA tenderness and normal ROM Extremity normal to inspection General Extremety ED: Negative for edema General Extremity: Negative for edema Neuro oriented x3 and CN's II-XII intact bilaterally Sensorium / Orientation: alert Motor Exam: strength 5/5 throughout Psych mental status grossly normal Mood & Affect: Negative for depressed or tearful Skin no rashes or lesions noted and no wounds MDM MDM MDM Narrative Medical decision making narrative: CT the brain and cervical spine were negative for acute. Surgical fusion of C3- C6. Patient will be treated conservatively. Would recommend follow-up in 1 week for repeat examination of her concussion Radiography Diagnostic Testing: Clinical Impression(s) from Imaging Studies Brain CT 08/16/23 10:28 IMPRESSION: No acute intracranial abnormality. Electronically Signed: Claudio Carlos MD at 11:21 EST , Cervical Spine CT 08/16/23 10:28 IMPRESSION: No acute abnormality. Surgical fusion of C3-C6. Electronically Signed: Claudio Carlos MD at 11:22 EST , Discharge Plan Triage Chief Complaint: Head Injury ED Provider: Roe Corea Dx/Rx/DC Orders Clinical Impression: Diabetes, Concussion, Traumatic periorbital ecchymosis of right eye, Contusion of scalp, Fall Instructions: Black Eye, ED Head Injury (Adult) Prescriptions: No Action triamcinolone acetonide 0.1 % cream 1 applic topical BID Qty: 30 0RF Rx Instructions: Apply to affected area on left upper shoulder, twice daily x10 days then stop. duloxetine 60 mg capsule,delayed release(DR/EC) 120 mg PO DAILY 30 Days Qty: 60 2RF glimepiride 2 mg tablet 2 mg PO DAILY Qty: 90 1RF metronidazole 500 mg tablet 500 mg PO BID insulin glargine [Basaglar KwikPen U-100 Insulin] 100 unit/mL (3 mL) insulin pen 25 unit subcut QAM Qty: 15 1RF (DME) FreeStyle Tanmay 2 Sensor Kit See Rx Instructions .Route Qty: 2 5RF Rx Instructions: 1 sensor q 14 days furosemide 40 mg tablet 40 mg PO DAILY PRN insulin aspart U-100 [Novolog FlexPen U-100 Insulin] 100 unit/mL (3 mL) insulin pen 15 unit subcut TID Qty: 13.5 5RF losartan 25 mg tablet 25 mg PO DAILY Qty: 30 5RF alcohol swabs Pads, Medicated 1 pad topical 4X/DAY Qty: 200 5RF (DME) pen needle, diabetic [BD Ultra-Fine Thais Pen Needle] 32 gauge x 5/32 needle See Rx Instructions .Route Qty: 100 5RF Rx Instructions: 4x/day allopurinol 100 mg tablet 100 mg PO DAILY omeprazole 20 mg capsule,delayed release(DR/EC) 20 mg PO DAILY Patient Comments: gastric reflux diphenhydramine HCl 25 mg capsule 25 mg PO DAILY PRN (Reason: allergy symptoms) ondansetron 4 mg tablet,disintegrating 4 mg PO Q6H PRN (Reason: nausea and vomiting) Qty: 10 0RF cyclobenzaprine 10 mg tablet 10 mg PO TID PRN (Reason: Muscle Spasm) Qty: 20 0RF potassium chloride 20 mEq tablet,ER particles/crystals 20 meq PO BID Qty: 10 0RF albuterol sulfate [Ventolin HFA] 90 mcg/actuation HFA aerosol inhaler 2 puff inhalation Q4H PRN PRN (Reason: Wheezing or shortness of breath) Qty: 1 0RF meclizine 25 mg tablet 25 mg PO TID PRN (Reason: dizziness) Qty: 30 0RF ezetimibe 10 mg tablet 10 mg PO DAILY Qty: 90 3RF (DME) pen needle, diabetic [BD Ultra-Fine Thais Pen Needle] 32 gauge x 5/32 needle See Rx Instructions .Route Qty: 100 5RF Rx Instructions: daily lorazepam 1 mg tablet 0.5 mg PO DAILY PRN (Reason: Anxiety) Qty: 30 1RF Trulicity 0.75 mg/0.5 mL pen injector 0.75 mg subcut QWEEK Qty: 2 2RF Primary Care Provider: Chantale Palm NP Referrals: Chantale Palm NP, [employer]ICULTURE INSTRUCTOR-C [Primary Care Provider] - 1 Week Disposition Disposition: Home, Self Care
--- OUTSIDE RECORDS SUMMARY | 2023-08-16 11:08 | XMS RPT_ITS | CCD ---
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 Name Role Phone NERY Unger RN, Rita Guadalupe Unavailable Unavailjohnny Unger RN RN, Rita Guadalupe Unavailable Unavailjohnny Pena MD, Miguel Osorio Unavailable Ned Silveira Unavailable Unavailable PROVIDER, UNKNOWN Unavailable Unavailable No, PCP Unavailable Unavailable PROVIDER, UNKNOWN Unavailable Unavailable No, PCP Unavailable Unavailable Ned Silveira Unavailable Unavailable NERY Unger RN, Rita Guadalupe Unavailable Unavailjohnny Pichardo MD, Karl Griffitsh Primary Care Provider Kylee MURILLO, Karl Griffiths Primary Care Provider LJ BOURNE Primary Care Physi justus Javed [...] LJ BOURNE Primary Care Un available BRAULIO MIXING MACHINE TENDER CORK ROD-STAPLE LASTER, LJ A Attending Un available BRAULIO MIXING MACHINE TENDER CORK ROD-STAPLE LASTER, LJ A Primary Care Un available BRAULIO MIXING MACHINE TENDER CORK ROD-STAPLE LASTER, LJ A Attending Un available BRAULIO MIXING MACHINE TENDER CORK ROD-STAPLE LASTER, LJ A Primary Care Un available BRAULIO MIXING MACHINE TENDER CORK ROD-STAPLE LASTER, LJ A Attending Un available BRAULIO MIXING MACHINE TENDER CORK ROD-STAPLE LASTER, LJ A Primary Care Un available BRAULIO MIXING MACHINE TENDER CORK ROD-STAPLE LASTER, LJ A Attending Un available WALL MIXING MACHINE TENDER CORK ROD-STAPLE LASTER, PIPER Melendez Attending Javier johnson BRAULIO MIXING MACHINE TENDER CORK ROD-STAPLE LASTER, LJ A Primary Care Un available BRAULIO MIXING MACHINE TENDER CORK ROD-STAPLE LASTER, LJ A Primary Care Un available BRAULIO MIXING MACHINE TENDER CORK ROD-STAPLE LASTER, LJ A Attending Un available BRAULIO MIXING MACHINE TENDER CORK ROD-STAPLE LASTER, LJ A Primary Care Un available BRAULIO MIXING MACHINE TENDER CORK ROD-STAPLE LASTER, LJ A Attending Un available BRAULIO MIXING MACHINE TENDER CORK ROD-STAPLE LASTER, LJ A Primary Care Un available JUDE DO, DR FELIX Attending Unavailable BRAULIO MIXING MACHINE TENDER CORK ROD-STAPLE LASTER, LJ A Primary Care Un available JUDE DO, DR FELIX Attending Unavailable Allergies Allergy Classification Reported Allergen(s) Allergy Type Date of Onset Reaction(s) Facility (14 sources) Acetaminophen; Translations: [acetaminophen] Drug Allergy 12-01-2013 [facility] Work Phone: Medications Current Medications Medication Drug [...] qDay, # 30 cap(s), 11 Refill(s), Pharmacy: [facility], Nausea Bloating, 175, cm, 03/26/23 [...] BID, # 15 gram(s), 0 Refill(s), Pharmacy: [id number], Cream, 172.7, cm, 01/10/23 15:40:00 EDT, Height, 84.4 Start Date: 02/18/23 Status: Ordered colchicine 0.6 mg oral capsule (1 source) Start: 06-06-2023 colchicine 0.6 mg oral capsule See Instructions, Take 2 tabs as first dose, then 1 tab one hour later, # 3 tab(s), 0 Refill(s), Pharmacy: [facility], Gout flare, 175, cm, 03/26/23 14:42:00 EDT, Height, kg, 04/30/23 13:32:00 EDT, Dosing Weight Start Date: 06/06/23 Status: Ordered Continuous Glucose Monitoring System (5 sources) Start: 05-29-2023 Continuous Glucose Monitoring System See Instructions, Freestyle Tanmay 2 sensors for continuous glucose moitoring. #7 sensors for 90 day supply, # 7 EA, 0 Refill(s), Pharmacy: [facility], Uncontrolled diabetes mellitus with hypoglycemia, [...] 12-18-2016 12-18-2016 Episodic Other aftercare (2 sources) shelter (current) use of insulin; Translations: [shelter (current) use of insulin] Onset: 02-20-2017 Episodic [...] Facility 03-04-2022 16:02-0400 Body height 172.7 cm Andyr Dunne MD Work Phone: [facility] 03-04-2022 16:02-0400 Body weight 79.38 kg Andry Dunne MD Work Phone: [facility] 12-18-2016 10:50-0400 BMI (Body Mass Index) 29.8 kg/m2 Rita Unger RN RN [facility] [employer] Work Phone: 12-18-2016 10:50-0400 Body Temperature 98.3 [degF] Rita Unger RN RN [facility] [employer] Work Phone: 12-18-2016 10:50-0400 Body Temperature 98.29 [degF] Rita Unger RN RN [facility] [employer] Work Phone: 12-18-2016 10:50-0400 Body weight 88.91 kg Rita Unger RN RN [facility] [employer] Work Phone: 12-18-2016 10:50-0400 Body weight 88.9 kg Rita Unger RN RN [facility] [employer] Work Phone: 12-18-2016 10:50-0400 BP Diastolic 91 mm[Hg] Rita Unger RN RN [facility] [employer] Work Phone: 12-18-2016 10:50-0400 BP Systolic 127 mm[Hg] Rita Unger RN RN [facility] [employer] Work Phone: 12-18-2016 10:50-0400 BSA (Body Surface Area) 2.03 m2 Rita Unger RN RN [facility] [employer] Work Phone: 12-18-2016 10:50-0400 Height 172.72 cm Rita Unger RN RN [facility] [employer] Work Phone: 12-18-2016 10:50-0400 Pulse (Heart Rate) 101 /min Rita Unger RN RN [facility] Work Phone: 12-18-2016 10:50-0400 Pulse Oximetry 99 % Rita Unger RN RN [facility] Work Phone: 12-18-2016 10:50-0400 Respiratory Rate 16 /min Rita Unger RN RN [facility] Work Phone: 12-18-2016 10:50-0400 Weight 88.91 kg Rita Unger RN RN [facility] Work Phone: 12-18-2016 10:50-0400 Weight 88.9 kg Rita Unger RN RN [facility] Work Phone: Encounters Encounter Date Encounter Type Care Provider Facility Start: 07-25-2023 End: 07-30-2023 ambulatory PIPER L MAE MIXING MACHINE TENDER CORK R[employer]-STAPLE LASTER Facility:[facility] Start: 07-25-2023 End: 07-29-2023 Outreach Lab PIPER Melendez MAE MIXING MACHINE TENDER CORK ROD-STAPLE LASTER [place] Start: 05-14-2023 End: 05-19-2023 ambulatory LJ RAMSEY MIXING MACHINE TENDER CORK R[employer]-STAPLE LASTER Facility:[facility] Start: 05-14-2023 End: 05-18-2023 Outreach Lab LJ RAMSEY MIXING MACHINE TENDER CORK ROD-STAPLE LASTER [place] Start: 04-29-2023 End: 04-30-2023 ambulatory LJ RAMSEY MIXING MACHINE TENDER CORK R[employer]-STAPLE LASTER Facility:[facility] Start: 02-18-2023 End: 02-19-2023 ambulatory LJ RAMSEY MIXING MACHINE TENDER CORK ROD-STAPLE LASTER Facility:[facility] Start: 02-18-2023 End: 02-18-[address] ELVIRA ROQUE DO [facility] Start: 02-18-2023 End: 02-23-2023 ambulatory LJ RAMSEY MIXING MACHINE TENDER CORK R[employer]-STAPLE LASTER Facility:[facility] Start: 02-18-2023 End: 02-23-2023 Encounter for general adult medical examination without abnormal findings DR ELVIRA ROQUE DO Facility:[facility] Start: 01-16-2023 End: 01-17-2023 ambulatory LJ RAMSEY MIXING MACHINE TENDER [employer]STAPLE LASTER Facility:[facility] Start: 01-16-2023 End: 01-16-2023 Patient encounter procedure LJ RAMSEY MIXING MACHINE TENDER CORK R[employer]STAPLE LASTER [facility] Start: 01-14-2023 End: 01-15-2023 ambulatory LJ A BRAULIO MIXING MACHINE TENDER CORK ROD-STAPLE LASTER Facility:[facility] Start: 01-03-2023 End: 01-04-2023 ambulatory LJ RAMSEY MIXING MACHINE TENDER CORK R[employer]STAPLE LASTER Facility:[facility] Start: 01-03-2023 End: 01-03-2023 Patient encounter procedure LJ A BRAULIO MIXING MACHINE TENDER CORK ROD-STAPLE LASTER [facility] Start: 11-06-2022 End: 11-07-2022 ambulatory LJ RAMSEY MIXING MACHINE TENDER CORK R[employer]STAPLE LASTER Facility:[facility] Start: 11-06-2022 End: 11-06-2022 Patient encounter procedure LJ RAMSEY MIXING MACHINE TENDER CORK ROD-STAPLE LASTER [facility] Start: 10-31-2022 End: 11-01-2022 Evaluation and management of inpatient SLOAN FROID Facility:[facility] Start: 10-30-2022 End: 10-31-2022 Emergency department patient visit NICKIE ANDREWS JUAQUIN Facility:[facility] Start: 03-05-2022 Orders Only Livia lux PA-C Work Phone: Orthopaedics Procedures Date Procedure Procedure Detail Performing Clinician Start: 03-04-2022 Arthrocentesis aspir &/inj major jt/bursa w/o us Andry Dunne MD Work Phone: Start: 11-22-2021 Arthrocentesis aspir &/inj major jt/bursa w/o us Sam Jones MD Work Phone: Start: 03-01-2021 Mammography Sam torres MD Work Phone: Start: 10-06-2020 Incision AND drainage E LAUREN RAMSEY MIXING MACHINE TENDER CORK ROD-STAPLE LASTER Plan of Treatment Date Care Activity Detail Author Start: 04-20-2029 Colonoscopy COLONOSCOPY [facility] Start: 04-20-2029 COLORECTAL CANCER SCREENING COLORECTAL CANCER SCREENING [facility] Start: 03-26-2026 Urine microalbumin profile DTAP,TDAP,TD (3 - Td or Tdap) [facility] Start: 04-04-2022 Influenza vaccination [facility] Start: 03-01-2022 Mammography MAMMOGRAM [facility] Start: 08-28-2020 Hepatitis C antibody, confirmatory test DILATED RETINAL EXAM [facility] Start: 03-03-2020 HPV TESTING HPV TESTING [facility] Start: 03-03-2020 PAP TESTING PAP TESTING [facility] Start: 11-18-2019 Hemoglobin A1c/Hemoglobin.total in Blood HBA1C [facility] Start: 06-28-2017 3 comp foot exam completed DIABETIC FOOT EXAM [facility] Start: 06-24-2017 Hepatitis B surface antibody level LDL CHOLESTEROL [facility] Start: 03-26-2017 Hepatitis B screening URINE ALBUMIN:CREATININE RATIO [facility] Start: 02-13-2017 Adult depression screening assessment DEPRESSION SCREENING [facility] Start: 12-24-2016 End: 12-24-2016 Appointment Appointment [facility] [employer] Work Phone: Start: 12-24-2016 End: 12-24-2016 Appointment Appointment [facility] [employer] Work Phone: Start: 12-18-2016 End: 12-18-2016 Appointment Appointment [facility] [employer] Work Phone: Start: 12-18-2016 End: 12-18-2016 Appointment Appointment [facility] [employer] Work Phone: Start: 12-18-2016 End: 12-24-2016 Diagnostic colonoscopy Colonoscopy [facility] [employer] Work Phone: Start: 12-18-2016 End: 12-24-2016 Upper GI endoscopy, biopsy Upper gastrointestinal endoscopy; with biopsy [facility] Work Phone: Start: 2016 SHINGRIX VACCINE (1 of 2) SHINGRIX VACCINE (1 of 2) [facility] Start: 2011 COLOGUARD (FIT-DNA) COLOGUARD (FIT-DNA) [facility] Start: [address] COLONOGRAPHY [facility] Start: 2011 FECAL OCCULT BLOOD FECAL OCCULT BLOOD [facility] Start: 2011 SIGMOIDOSCOPY SIGMOIDOSCOPY [facility] Start: 05-04-2005 PNEUMOCOCCAL (2 - PCV) PNEUMOCOCCAL (2 - PCV) [facility] Start: 1984 ANNUAL PCP TEAM CHRONIC DISEASE VISIT ANNUAL PCP TEAM CHRONIC DISEASE VISIT [facility] Start: 1984 BP CONTROLLED (<130/80) BP CONTROLLED (<130/80) [facility] Start: 1984 SPIROMETRY SPIROMETRY [facility] Start: 1971 COVID-19 VACCINE (1) COVID-19 VACCINE (1) [facility] Start: 1966 COVID-19 VACCINE (#1) COVID-19 VACCINE (#1) [facility] Patient Education WEIGHT%20MANAGEMENT [facility] Work Phone: End: 12-29-2022 XR SHOULDER GENERAL 3V OR MORE AP/TRUE AP/OTHER RIGHT XR SHOULDER GENERAL 3V OR MORE AP/TRUE AP/OTHER RIGHT Radiology Routine Pain 1 Occurrences starting 11/29/2021 until 12/29/2022 [facility] Work Phone: Immunizations Immunization Date Immunization Notes Care Provider Orestes hayes 05-06-2017 influenza, injectabl e, quadrivalent, contains preservative Sam Jones MD Work Phone: [facility] 03-26-2016 tetanus toxoid, redu shreyas diphtheria toxoid, and acellular pertussis vaccine, adsorbed Sam Jones MD Work Phone: [facility] Work Phone: 06-02-2015 influenza, injectabl e, quadrivalent, contains preservative Sam Jones MD Work Phone: [facility] 07-13-2014 influenza, seasonal, injectable Sam Jones MD Work Phone: [facility] 05-06-2013 influenza virus vaccine, unspecified formulation Sam Jones MD Work Phone: [facility] 05-08-2012 influenza virus vaccine, unspecified formulation Sam Jones MD Work Phone: [facility] Work Phone: 10-22-2011 hepatitis B vaccine, adult dosage Sam Jones MD Work Phone: [facility] Work Phone: 04-26-2011 hepatitis B vaccine, adult dosage Sam Jones MD Work Phone: [facility] 04-26-2011 influenza virus vaccine, unspecified formulation Sam Jones MD Work Phone: [facility] 03-21-2011 hepatitis B vaccine, adult dosage Sam Jones MD Work Phone: [facility] Work Phone: 08-21-2006 diphtheria and tetan us toxoids, adsorbed for pediatric use Sam Jones MD Work Phone: [facility] 06-12-2005 influenza virus vaccine, whole virus Sam Jones MD Work Phone: [facility] Work Phone: 05-04-2004 pneumococcal polysaccharide vaccine, 23 valent Sam Jones MD Work Phone: [facility] 10-03-1999 tetanus and diphther ia toxoids, adsorbed, preservative free, for adult use (2 Lf of tetanus toxoid and 2 Lf of diphtheria toxoid) Sam Jones MD Work Phone: [facility] Payers Date Payer Category Payer Unknown [id number] 2022 Medicaid [id number] 2020 Medicaid UHC MEDICAID UHC [employer] MEDICAID [id number] 2020-Rust [phone] [address] [place] [address] Medicaid [id number] 2020 Medicaid [id number] 2018 Unknown 2018 Unknown BETZAIDA AGUILAR [facility] [id number] 2018-Present [phone] [address] [place] [address] [facility] [id number] 2018 Unknown [id number] 1966 Unknown [id number] 1966 Unknown [id number] 1966 Unknown [id number]. 1966 Unknown [id number]. 1966 Unknown [id number] [id number]. 1966 Unknown [id number] [id number]. 1966 Unknown [id number] [id number]. 1966 Unknown [id number]. 1966 Unknown [id number] Social History Date Type Detail Facility Start: 01-11-2011 End: 09-20-2020 Tobacco smoking status NHIS Never smoked tobacco [facility] Start: 11-22-2021 End: 03-04-2022 Alcohol intake Current drinker of alcohol (finding) [facility] Start: 10-25-2019 History SDOH Alcohol Comment 2 vodka mixed drinks nightly [facility] Start: 1965 Sex Assigned At Female C [facility] Start: 11-12-2021 End: 03-04-2022 Exposure to SARS-CoV-2 (event) Not sure [facility] Start: 03-04-2022 Alcohol intake [facility] Start: 01-11-2011 Tobacco use and exposure Smokeless tobacco non-user [facility] Work Phone: Sex Assigned At Sex [facility] Medical Equipment Procedure Code Equipment Code Equipment Origin al Text Equipment Identifier Dates Perry Corkscrew Fiberwire 5.5mm 2 Full Thread Peek 14.7mm Suture 2 Sterile - [id number] Start: 02-01-2019 testing up to th [...] Locations *1: This test was performed at: [address], [address] , [facility] ([place]) 05-14-2023 Evaluation + Plan note Diagnostic Tests PendingOva & Parasite exam 05/14/23 Future Scheduled TestsRapid HIV (AO) 02/18/23Basic Metabolic Panel 12/20/22Basic Metabolic Panel 01/17/23Complete Blood Count 01/17/23 [facility] 02-20-2023 Note . MICRO - Microbiology [...] Locations *1: This test was performed at: [address], [address] , [facility] ([place] 02-18-2023 Evaluation + Plan note Future Scheduled TestsRapid HIV (AO) 02/18/23Basic Metabolic Panel 12/20/22Basic Metabolic Panel 01/17/23Complete Blood Count 01/17/23 [facility] 11-01-2022 Note HNO ID: [id number] Author: MARY Manriquez Tech Service: ? Author Type: Group Home Counselor Type: Procedures Filed: 11/01/2022 2:17 PM Note Text: ZIO XT patch placed 11/01/2022, 2:30 p.m. Patient education completed [facility] 11-01-2022 Note HNO ID: [id number] Author: Dana Marvin APRN.CNP Service: Electrophysiology Author [...] and serum BGL 309 on presentation to [place] ED, ?sepsis with elevated lactate and leukocytosis, [...] polysubstance use abstinence Zio patch ordered Call [phone] to have applied on d/c Further outpatient EP follow up needs pending Zio patch results No further recommendations from EP standpoint. Will remain available as needed. Assessment and Recommendations discussed and collaborated with Dr. Holliday SIGNATURE: Dana Marvin APRN.STAPLE LASTER DATE: November 01, 2022 TIME: 8:56 AM CONTACTING [facility] CARDIOVASCULAR MEDICINE: Team A: (M-F 8:00 am - 5:00 pm) Dee Anton Scharfstein, Sparano, Vekstein, Wiseman, Gupta, Rogers - [place] [phone] Team B: (M-F 8:00 am - 5:00 pm) Nahomi Rivero Kruithoff, Mattina, Taraben, William, Abdelghany- [place] [phone] Night and Weekend Cardiovascular Medicine (consults, inpatient management questions, transfers, etc.): CALL [phone] (not the physician listed) - All calls triaged via answering service. Please include the patient's name, location, MRN, and 10-digit call-back number. [facility] 10-31-2022 Note HNO ID: [id number] Author: Yasmine Clifford, RN Service: Nursing Author Type: Registered Nurse Type: Progress Notes Filed: 10/31/2022 7:34 AM Note Text: 0230- pt arrived from [facility]. Pt Aox3, oriented to room and educated cushion padder light use. States she has a headache [...] light within reach, bed locked and low. [facility] 10-31-2022 Note HNO ID: [id number] Author: Sloan Will MD Service: Electrophysiology Author [...] and Trigeminy were present. Sloan Will MD [facility] 03-04-2022 Note HNO ID: [id number] Author: Andry Dunne MD Service: ? Author Type: Physician Type: Progress Notes Filed: 03/19/2022 1:26 PM Note Text: Andry Dunne MD Department of Orthopaedics Orthopaedics [address] [facility] [address] Dept: [phone] Dept March 04, 2022 CHIEF COMPLAINT: New and Pain of the Left Shoulder HPI Pt. presents with 2 year hx of left shoulder pain. She has not had surgery, but did have MRI 06-22-2021 of left shoulder which has been scanned. She was last seen by 06-05-2021 by Mary Duogn with injection prior to MRI. She also has had 5 surgeries of right shoulder, but this is [facility], and explained that we cannot treat her for this unless Dr. Dunne agrees to take on care and become provider of record. Currently she sees Dr. Jones and Dr. Bishop. She does not want to go back to [place] for care. AMB ROOMING INTAKE FLOWSHEET DATA [...] subacromial bursa Informed Consent Consent Obtained: Verbal Gravel Switch Protocol A moment to CARE was completed. [...] THE CORACOCLAVICULAR LIGAMENTS MAY REPRESENT LOW-GRADE SPRAIN. 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 [facility] 03-04-2022 History of Present illness Narrative Associated Order(s): Large Joint Arthro/Inj: L subacromial bursa Post-Procedure Diagnose(s): Impingement syndrome of left shoulder; Chronic left shoulder pain Andry Dunne MD Department of Orthopaedics Orthopaedics [address] [facility] [address] Dept: [phone] Dept March 04, 2022 CHIEF COMPLAINT: New [...] surgeries of right shoulder, but this is [facility], and explained that we cannot treat her for this unless Dr. Dunne agrees to take on care and become provider of record. Currently she sees Dr. Jones and Dr. Bishop. She does not want to go back to [place] for care. AMB ROOMING INTAKE FLOWSHEET DATA [...] subacromial bursa Informed Consent Consent Obtained: Verbal Gravel Switch Protocol A moment to CARE was completed. [...] THE CORACOCLAVICULAR LIGAMENTS MAY REPRESENT LOW-GRADE SPRAIN. 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 Date/Time: Jun 22 2021 4:06P Dictated by : NAYELY ZURITA MD This examination was interpreted and the report reviewed and electronically signed by: HENRY GILMORE MD on Jun 22 2021 5:18PM EST Results-Findings * * *Final Report* * * DATE OF EXAM: Jun 22 2021 3:21PM [facility] 0239 - MRI SHOULDER WO IVCON [...] Lopressor [Metoprolol Tartrate], Morphine, Oxymorphone, Percocet [Oxycodone-Acetaminophen], Skivgsw-Pnv-Uan Reductase Inhibitors, Tylenol [Acetaminophen], and Ultram [Tramadol Hcl] ROS: General (negative for fatigue, malaise, weight loss/gain) HEENT (negative for headache, earache, recent vision changes, sinus pain, sore throat) Respiratory (no recent shortness of breath, hemoptysis) CV (negative for chest tightness, palpitations) Musculoskeletal (see HPI) Psych (no depression, anxiety) REFERRING PHYSICIAN: Ms. Chrissy De La Torre was referred to [place] for consultation by the following physician. This consultation note will be sent to the following physician by either mail or electronic medical record. Andry Dunne [address] [facility] [address] Karl Pichardo MD [address] [place] [facility] [address] Andry Dunne MD documented in this encounter [facility] 12-03-2021 Note HNO ID: [id number] Author: Rodolfo Bishop MD Service: ? Author Type: Physician Type: Progress Notes Filed: 12/03/2021 3:58 PM Note Text: SERVICE DATE: Patient would like to see someone today. PCP: Chrissy De La Torre REFERRING PROVIDER: Sam Jones [id number] [place] [id number] Consult requested for an opinion regarding the [...] broken ankle (left) -- 2006 Following with [facility] Previous Version Essential hypertension, benign Phoebe Randle [...] fusion of cervical spine 04/25/2021 Mariely Kelley MIXING MACHINE TENDER CORK ROD.STAPLE LASTER No GERD (gastroesophageal reflux disease) 10/25/2019 Mariely Kelley MIXING MACHINE TENDER CORK [employer].STAPLE LASTER No Nausea and vomiting 10/25/2019 Mariely Kelley MIXING MACHINE TENDER C[employer].STAPLE LASTER No Mixed hyperlipidemia 10/25/2019 Mariely Kelley MIXING MACHINE TENDER CORK ROD.STAPLE LASTER No History of failed repair of rotator cuff 10/25/2019 Mariely Kelley MIXING MACHINE TENDER CORK ROD.STAPLE LASTER No Impingement syndrome of left shoulder 10/12/2019 [...] RN No Hemorrh (more content not included)... [facility] 12-03-2021 History of Present illness Narrative Post-Procedure Diagnose(s): History of failed repair of rotator cuff; Rotator cuff tear arthropathy of right shoulder SERVICE DATE: Patient would like to see someone today. PCP: Chrissy De La Torre REFERRING PROVIDER: Sam Jones [id number] [facility] [address] Consult requested for an opinion regarding the [...] broken ankle (left) -- 2006 Following with [facility] Previous Version Essential hypertension, benign Phoebe Razia [...] fusion of cervical spine 04/25/2021 Mariely Kelley, MIXING MACHINE TENDER CORK ROD.STAPLE LASTER No GERD (gastroesophageal reflux disease) 10/25/2019 Mariely Kelley MIXING MACHINE TENDER CORK ROD.STAPLE LASTER No Nausea and vomiting 10/25/2019 Mariely Kelley MIXING MACHINE TENDER CORK ROD.STAPLE LASTER No Mixed hyperlipidemia 10/25/2019 Mariely Kelley, MIXING MACHINE TENDER CORK ROD.STAPLE LASTER No History of failed repair of rotator cuff 10/25/2019 Mariely Kelley MIXING MACHINE TENDER CORK ROD.STAPLE LASTER No Impingement syndrome of left shoulder 10/12/2019 [...] syndrome X Bibi West RN 03/01/2015 Tomi Sexton MD Priority: B Premenopausal menorrhagia 04/15/2013 Daniele [...] Status Change Percocet [Oxycodone* Itching Severe itching Ymebgpv-Mwf-Coh Red* Other: See Comments Muscle aches, multiple [...] them every [address]. [address] [facility] case and we can submit for approval for her injection with a C9 form and when that is approved, I will be happy to see her back for an injection.She understands and agreeable with this plan. If any questions or concerns arise, she should not hesitate to call. Rodolfo Bishop M.D. M.M.Sc. Shoulder and Elbow Surgeon Orthopaedic Surgery Department [place], [place] [address] Tell: [phone] Appt:[phone] 12/03/2021 2:24 PM documented in this encounter [facility] 11-22-2021 Note HNO ID: [id number] Author: Sam Jones MD Service: ? Author [...] subacromial bursa Informed Consent Consent Obtained: Verbal Gravel Switch Protocol A moment to CARE was completed. [...] 22, 2021 TIME: 11:49 AM PAGER/CONTACT #: [facility] 11-22-2021 Note HNO ID: [id number] Author: Sam Jones MD Service: ? Author [...] questions were answered by the attending physician. [facility] 11-22-2021 Note HNO ID: [id number] Author: Sam Jones MD Service: ? Author [...] noted. Motor: 5/5 IO, FPL, OP, hand jacquard card cutter, biceps, triceps, deltoid Sensory: SILT ulnar/median/radial distributions [...] treatment plan Narciso Rosario MD CC:Sam Jones [facility] 11-22-2021 Note HNO ID: [id number] Author: Sam Jones MD Service: ? Author [...] noted. Motor: 5/5 IO, FPL, OP, hand jacquard card cutter, biceps, triceps, deltoid Sensory: SILT ulnar/median/radial distributions [...] treatment plan Narciso Rosario MD CC:Sam Jones [facility] 11-22-2021 History of Present illness Narrative Associated [...] subacromial bursa Informed Consent Consent Obtained: Verbal Gravel Switch Protocol A moment to CARE was completed. [...] noted. Motor: 5/5 IO, FPL, OP, hand jacquard card cutter, biceps, triceps, deltoid Sensory: SILT ulnar/median/radial distributions [...] MD CC:Sam Jones documented in this encounter [facility] 11-22-2021 History of Present illness Narrative Assessment/Primary [...] noted. Motor: 5/5 IO, FPL, OP, hand jacquard card cutter, biceps, triceps, deltoid Sensory: SILT ulnar/median/radial distributions [...] MD CC:Sam Jones documented in this encounter [facility] 05-02-2021 Note HNO ID: [id number] Author: Maria Luz Enriquez APRN.SYED Service: ? Author Type: Nurse Paste Mixer Liquid Type: Anesthesia Procedure Notes Filed: 05/02/2021 11:02 AM Note Text: ANESTHESIOLOGY PROCEDURE NOTE Airway General Information Procedure Start Time/Medication Administration: 05/02/2021 10:52 AM Patient location during procedure: OR Patient identity confirmed: arm band Staffing Performed by: PARAPROFESSIONAL EDUCATION ASSISTANT Indications and Patient Condition Preoxygenated: yes Indications for airway management: anesthesia Method: asleep Final Airway Details Final airway type: supraglottic airway Number of attempts at approach: 1 Final Supraglottic Airway: i-gel Size 4 Seal Adequate: yes SIGNATURE: Maria Luz Enriquez APRN.PARAPROFESSIONAL EDUCATION ASSISTANT PATIENT NAME: Chrissy De La Torre DATE: May 02, 2021 TIME: 11:01 AM CSN: [id number] [facility] 05-02-2021 Note HNO ID: [id number] Author: Richie Tao III, MD Service: Anesthesiology [...] May 02, 2021 TIME: 11:00 AM CSN: [id number] [facility] 05-02-2021 Note HNO ID: [id number] Author: Shana Rene RN Service: Nursing Author Type: Registered Nurse Type: Nursing Progress Note Filed: 05/02/2021 10:10 AM Note Text: CHEPE Presley obtained UA results. Okay to proceed with the surgery today. [facility] 05-02-2021 Note HNO ID: [id number] Author: Shana Rene RN Service: Nursing Author Type: Registered Nurse Type: Nursing Progress Note Filed: 05/02/2021 9:32 AM Note Text: Dr. Tao spoke with CHEPE Presley regarding pt's c/o. [facility] documented as of this encounter (statuses as of 11/22/2021) [facility] History of Past illness Narrative* Problem Noted [...] of this encounter (statuses as of 11/22/2021) [facility] History of Past illness Narrative* Problem Noted [...] of this encounter (statuses as of 11/29/2021) [facility] History of Past illness Narrative* Problem Noted [...] of this encounter (statuses as of 12/03/2021) [facility] History of Past illness Narrative* Problem Noted [...] of this encounter (statuses as of 03/05/2022) [facility] History of Past illness Narrative* Problem Noted [...] of this encounter (statuses as of 03/19/2022) [facility] Appointment Date:01/06/2023 04:30:00 PM Scheduled Provider:LJ RAMSEY Location:[facility] Appointment Type:PC OV Appointment Date:02/05/2023 09:30:00 AM Scheduled Provider:LJ RAMSEY Location:[facility] Appointment Type: OV [facility] Evaluation + Plan note Future Appointments Appointment Date:03/07/2023 10:00:00 AM Scheduled Provider:LJ RAMSEY Location:[facility] Appointment Type: OV Future Scheduled Tests Laboratory* Basic Metabolic Panel 12/20/22 [facility] Evaluation + Plan note Future Appointments Appointment Date:03/07/2023 10:00:00 AM Scheduled Provider:LJ RAMSEY Location:[facility] Appointment Type: OV Diagnostic Tests Pending * N. gonorrhoeae PCR 02/18/23 * Chlamydia trachomatis PCR 02/18/23 Future Scheduled Tests Laboratory* Rapid HIV (AO) 02/18/23 * Affirm Pathogens DNA Direct Probe 02/18/23 * Basic Metabolic Panel 12/20/22 * Basic Metabolic Panel 01/17/23 * Complete Blood Count 01/17/23 [facility] Evaluation note* Diagnosis Rotator cuff tear arthropathy, right- Primary Traumatic complete tear of right rotator cuff, subsequent encounter [facility] Tear of left glenoid labrum, subsequent encounter- Primary Rotator cuff syndrome of left shoulder Disorders of bursae and tendons in shoulder region, unspecified documented in this encounter [facility] note* Diagnosis Pain- Primary Generalized pain documented in this encounter [facility] note* Diagnosis History of failed repair of rotator cuff- Primary Other postprocedural status Rotator cuff tear arthropathy of right shoulder Traumatic arthropathy, shoulder region documented in this encounter [facility] note* Diagnosis Rotator cuff tear arthropathy of right shoulder- Primary Traumatic arthropathy, shoulder region documented in this encounter [facility] note* Diagnosis Impingement syndrome of left shoulder- Primary Other affections of shoulder region, not elsewhere classified Chronic left shoulder pain Pain in joint, shoulder region documented in this encounter [facility] course Narrative No data available for this section [facility] Hospital Discharge instructions No data available for this section [facility] Progress note No data available for this section [facility] Reason for referral (narrative)* Diagnostic Procedure Only (Routine) - Pending Review Specialty Diagnoses / Procedures Referred By Saadia smith Referred To Contact XR IMAGING Diagnoses Pain Procedures XR SHOULDER GENERAL 3V OR MORE AP/TRUE AP/OTHER RIGHT RADEX SHOULDER COMPLETE MINIMUM 2 VIEWS Rodolfo Bishop MD [address] [place] [address] Xr Imaging Referral ID Status Reason Start Date Expiration Date Visits Requested Visits Authorized [id number] Pending Review Auto-Generat ed Referral 11/29/2021 12/29/2022 1 1 [facility] for referral (narrative)* Diagnostic Procedure Only (Routine) - Pending Review Specialty Diagnoses / Procedures Referred By Saadia smith Referred To Contact XR IMAGING Diagnoses Rotator cuff tear arthropathy of right shoulder Procedures XR SHOULDER GENERAL 3V OR MORE AP/TRUE AP/OTHER RIGHT RADEX SHOULDER COMPLETE MINIMUM 2 VIEWS Livia Zurita PA-C [address] [place] [address] Xr Imaging Referral ID Status Reason Start Date Expiration Date Visits Requested Visits Authorized [id number] Pending Review Auto-Generat ed Referral 03/05/2022 04/04/2023 1 1 [facility] Summary Purpose Family History No Family History Records FoundNo Family History Records FoundNo Family History Records FoundNo Family History Records Found No data available for this section No data available for this section No data available for this section No Family History Records Found Advance Directives No Advanced Directives Records FoundDocuments on File Type Date Recorded 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 Advance Directive(s) Advance Directive(s) 04/12/2021 10:34 AM Advance Directive(s) 05/02/2020 3:18 PM Advance Directive(s) 10/21/2019 10:23 AM Advance Directive(s) 04/20/2019 9:49 AM Documents on File Type Date Recorded 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 Advance Directive(s) Advance Directive(s) 04/12/2021 [...] DATE CREATED AUTHOR AUTHOR'S ORGANIZ ATION 05/03/2021 [facility] DATE CREATED AUTHOR AUTHOR'S ORGANIZ ATION 11/07/2022 [facility] DATE CREATED AUTHOR AUTHOR'S ORGANIZ ATION 12/10/2022 [facility] DATE CREATED AUTHOR AUTHOR'S ORGANIZ ATION 07/31/2023 [facility] ([place]) Source Comments (unrecognize d section and content) In the event this informatio n is protected by the Federal Confidentiality of Alcohol and Drug Abuse Patient Records regulations: The Federal rules restrict any use of the information to criminally investigate or prosecute any alcohol or drug abuse patient.[facility] the event this information is protected by the Federal Confidentiality of Alcohol and Drug Abuse Patient Records regulations: The Federal rules restrict any use of the information to criminally investigate or prosecute any alcohol or drug abuse patient.[facility] the event this information is protected by the Federal Confidentiality of Alcohol and Drug Abuse Patient Records regulations: The Federal rules restrict any use of the information to criminally investigate or prosecute any alcohol or drug abuse patient.[facility] the event this information is protected by the Federal Confidentiality of Alcohol and Drug Abuse Patient Records regulations: The Federal rules restrict any use of the information to criminally investigate or prosecute any alcohol or drug abuse patient.[facility] the event this information is protected by the Federal Confidentiality of Alcohol and Drug Abuse Patient Records regulations: The Federal rules restrict any use of the information to criminally investigate or prosecute any alcohol or drug abuse patient.[facility] the event this information is protected by the Federal Confidentiality of Alcohol and Drug Abuse Patient Records regulations: The Federal rules restrict any use of the information to criminally investigate or prosecute any alcohol or drug abuse patient.[facility] Reason for Visit (unrecogniz ed section and content) Specialty Diagnoses / Procedures Referred By Saadia smith Referred To Contact [facility] Diagnoses Follow up for: ARTHROSCOPY SHOULDER W/ DEBRIDEMENT LIMITED 1 OR 2 DISCRETE STRUCTURES [72223] - Shoulder - Right Procedures follow up for RIGHT shoulder - surgery date was 05/02/21 [place] [address] [address] [id number] [facility] [address] [place] [address] Referral ID Status Reason Start Date Expiration Date Visits Re quested Visits Authorized [id number] Closed 06/26/2021 09/24/2021 1 1 Reason Comments Injections Reason Comments New Pain Stiffness Swelling Weakness Numbness/Tingling Specialty Diagnoses / Procedures Referred By Saadia smith Referred To Contact Orthopedics / ORTHOPAEDIC SURGERY Diagnoses SHOULDER REPLACEMENT CONSULT,RT Procedures REFERRAL TO [facility] [place] [address] [id number] Rodolfo Bishop MD [address] [place] [address] Referral ID Status Reason Start Date Expiration Date Visits Requested Visits Authorized [id number] Pending Review Clearance Not Met -Financial Clearance Bypassed 12/03/2021 02/01/2022 1 1 Reason Comments xray and MRI 06-[address] Irwin ritter for glenoid tear left labrum and Rotator cuff syndrome left shoulder 11-22-21 New Pain Care Teams (unrecognized sec tion and content) Welder Apprentice Arc Relationship Specialty Start Date End Date Karl Pichardo MD [address] [place] [address] PCP - General Family Practice 01/08/18 Welder Apprentice Arc Relationship Specialty Start Date End Date Karl Pichardo MD [address] [place] [address] PCP - General Family Practice 01/08/18 Welder Apprentice Arc Relationship Specialty Start Date End Date Karl Pichardo MD [address] [place] [address] PCP - General Family Practice 01/08/18 Welder Apprentice Arc Relationship Specialty Start Date End Date Karl Pichardo MD [address] [place], [place] [id number] PCP - General Family Practice 01/08/18 FOR [...] BE BASED ON THE PRIMARY CLINICAL RECORDS. [employer] provides no warranty or guarantee of the accuracy or completeness of information in this document.
== END 2023-08-16 11:36 | disposition home or self-care (01) ==
PROVIDERS: Emergency Provider Emergency Medicine; PCP Registered Nurse; Visit Provider Emergency Medicine
DX: S06.0X0A Concussion without loss of consciousness, initial encounter (principal); E11.9 Type 2 diabetes mellitus without complications; S05.11XA Contusion of eyeball and orbital tissues, right eye, initial encounter; X58.XXXA Exposure to other specified factors, initial encounter; Z86.73 Personal history of transient ischemic attack (TIA), and cerebral infarction without residual deficits
CPT/HCPCS: 70450; 72125; 99282

== ENCOUNTER 2023-12-03 16:00 | Outpatient (RCR) | payer MEDICAID, SELFPAY ==
--- NOTE | 2023-11-19 15:41 | HP.PTEVAL_ITS ---
Patient's Visit Information Visit Information Visit Information: AALIYAH LAY is a 58 year old F referred to Physical Therapy by NADIA Hough with a diagnosis of vertigo. Date of Evaluation: 11/19/23 Physical Therapist: Andrae Brooks, JOHNT, OCS, CSCS Visit Plan Frequency: 1-2x /Week Duration: 2-4 Weeks Plan: 1-2x/week for 2-4 weeks for 1. positional treatments and exercises as needed Balance ex as needed and return to function Next session: check positional and balance, oculomotor as needed:, had + R test today. Subjective Subjective: I have vertigo like crazy. Had it for 16 days, not sure what started it, maybe allergies. Woke up that way one day. Feels imbalanced and gets spinning. It lasts throuighout the day. Takes meclizine 3x/day and it helps a bit. Went to doctor 2x and MRI and CATSCAN ordered; they were good. Had a cpouple falls in last 16 days. Doing well today and it is her best day lately. Moving head seems to trigger it. Is 90% better today. 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 Work can be challenging. Sleep is not great, has chronic pain, vertigo come in waves. Rolls alot due to pain and then gets dizzy. That is how it started. Basic ADLs are done I. Has walk in shower. Steps at home and are not easy and needs rail. Hobbies: resting and get things done. Hard to get them doen when dizzy, doctors not sure what is causing vertigo Falls due to RSD but does not use AD. Cannot put weight through shoulders comfortably. Objective Objective: Walks in I, hesitant to move head, transfers bed adn chair I, steps preferring R up and down due to RSD and needs rail which is typical for her. cervical aROM WFL and without pain today to 50 rotations and 40 extension but some dizzyness with ext. UE AROM WFL to 125 flexion then stiff but not painful, strength 3+/5. Sensation UE WNL to gross light touch. - L HD but dizzy + r hallpike kianna treated with modified giovani R, had up torsional nystagmus and spinning of 10 second duration. Balance/Special Test Scores Functional Gait Assessment Score: 23 % Disability: 23.3400 CATSIB Score (Max score 120 seconds): 93 Dizziness Score: 92 Goals Goal 1:: abolish vertigo with position change Goal Time Frame: 2-4 Weeks Goal 2:: Balance FGA score 26/30 and feel back to normal to patient Goal Time Frame: 2-4 Weeks Goal 3:: DHI score 30 or better Goal Time Frame: 2-4 Weeks Goal 4:: I management of condition Goal Time Frame: 2-4 Weeks Goal 5:: work without dizzyness Goal Time Frame: 2-4 Weeks Rehabilitation Potential Physical Therapy Diagnosis: dizzyness worse with position change limiting activity. Rehabilitation Potential: Good Anticipated Interventions Patient/Client Instruction: Educate patient on: Condition, Plan of Care and Risk Factors For the Purpose of:: To increase tolerance to activity/condition/position and To improve gait and locomotor functions Therapeutic Exercise to Include: Balance training Comment: positional ex adn balance as needed For the Purpose of:: To improve muscle performance and motor function, To increase tolerance to activity/condition/position, To improve ability of physical actions for home/community/work/leisure, To improve gait and locomotor functions and To improve balance Text: Thank you for the opportunity to evaluate your patient. For Medicare and Medicare HMO plans, please review the plan of care and approve it. It will need to be FAXED BACK to us at [phone] for Medicare purposes. For Medicare only, by signing this I certify the plan of care. Please let me know if there are questions or concerns regarding this plan of care. Physician Signature: Date:
--- NOTE | 2024-01-26 08:56 | HP.PT.NRP ---
Patient Information Patient Information: AALIYAH LAY was seen in my office for initial evaluation on 11/19/23. The following Plan of Care was established for this patient: POC Established Initial Frequency: 1-2x /Week Initial Duration: 2-4 Weeks Anticipated Interventions Patient/Client Instruction: Educate patient on: Condition, Plan of Care and Risk Factors For the Purpose of:: To increase tolerance to activity/condition/position and To improve gait and locomotor functions Therapeutic Exercise to Include: Balance training For the Purpose of:: To improve muscle performance and motor function, To increase tolerance to activity/condition/position, To improve ability of physical actions for home/community/work/leisure, To improve gait and locomotor functions and To improve balance Last Seen Last Seen: This patient was last seen in our office 11/26/23. Pertinent comments regarding their Physical therapy will appear below: Pt seen 2 visits of POC for + positional vertigo test and then did not return for any further visits in POC. At this point, I will discontinue from my care. At this point I will be discontinuing this patient from physical therapy. I would be happy to see this patient again in the future if found appropriate by the physician. Thank you! Andrae Brooks, DPT, OCS, CSCS Balance/Gait/Functional tests Balance/Special Test Scores Functional Gait Assessment Score: 26 % Disability: 13.3400 CATSIB Score (Max score 120 seconds): 93 Dizziness Score: 92
== END 2023-12-03 19:00 | disposition home or self-care (01) ==
LOC: PT 16:00
PROVIDERS: PCP Registered Nurse; Referring Provider Nurse Practitioner Family; Visit Provider Nurse Practitioner Family
DX: R42 Dizziness and giddiness (principal)
CPT/HCPCS: 97162; 97530

== ENCOUNTER → 2024-02-20 | Outpatient (CLI) | payer MEDICAID, SELFPAY ==
--- NOTE | 2024-02-20 10:51 | RAD_ITS ---
STUDY: X-RAY - RIGHT KNEE REASON FOR EXAM: Female, 58 years old. Knee injury TECHNIQUE: 3 view(s) of the knee. COMPARISON: None. FINDINGS: Normal visualized distal femur. Normal visualized proximal tibia and fibula. Normal proximal tibiofibular articulation. Normal medial femorotibial compartment. Normal lateral femorotibial compartment. Normal patellofemoral articulation. The soft tissue structures are unremarkable. RAD/Knee 3 Views IMPRESSION: Normal x-ray examination of the knee. Electronically Signed: Tim Cadet MD at 11:11 EDT ,
== END | disposition home or self-care (01) ==
PROVIDERS: PCP Registered Nurse; Referring Provider Physician Assistant Surgical; Visit Provider Physician Assistant Surgical
DX: S89.91XA Unspecified injury of right lower leg, initial encounter (principal); X58.XXXA Exposure to other specified factors, initial encounter
CPT/HCPCS: 73562

== ENCOUNTER 2024-02-27 15:39 | Emergency (ER) | payer MEDICAID, SELFPAY ==
[2024-02-27 15:39] VITALS: BP 179/111; PULSE 106; RESP 16; TEMP 35.7; O2SAT 98; BMI 30.9
--- NOTE | 2024-02-27 15:55 | EKG12_ITS ---
Test Reason : CHEST TIGHTNESS Blood Pressure : / mmHG Vent. Rate : 098 BPM Atrial Rate : 098 BPM P-R Int : 126 ms QRS Dur : 076 ms QT Int : 368 ms P-R-T Axes : 027 008 040 degrees QTc Int : 469 ms Normal sinus rhythm Possible Left atrial enlargement Nonspecific ST abnormality Abnormal ECG Confirmed by FAVIO MURILLO, GIANA ([id number]), purchase request editor PATRICK CARTER ([id number]) on 03/02/2024 1:59:41 PM Referred By: TOM Confirmed By:BOBBI STAHL MD
--- NOTE | 2024-02-27 15:56 | EX.ED.DYSGE1 ---
HPI History of Present Illness Chief Complaint: General Illness Detail of Chief Complaint: justin Informant: patient Narrative Narrative: 58-year-old female has had issues with her right knee lately, she was on prednisone for the last week and her blood sugars were high from that, but she was checking her sugars and adjusting her insulin to control that. Yesterday she saw orthopedics and had an injection in her right knee of cortisone, and around 4 - 5 hours later she went to work and an hour in the work she started feeling poorly and feeling shaky and a little lightheaded. She had some palpitations at 1 point, the felt like occasional skipping and beating hard but not racing, and she has had none of that today but continuing to feel very poorly. She checked her blood sugar just prior to coming to the ER and it read on her meter high. She has had excessive thirst and urinary frequency lately and states she accidentally urinated herself just prior to coming here because she could not make it to the bathroom fast enough. No dysuria. She states her right knee is doing great and is not hurting her now. [facility] Medical History Osteoarthritis of right knee Contusion of right chest wall Contusion of right shoulder Contusion of forehead History of diabetes mellitus PTSD (post-traumatic stress disorder) Wears glasses Marijuana use Diabetes Arthritis Easy bruising High cholesterol Restless legs Injury of head and neck Difficulty swallowing Gastric reflux Non-smoker History of stress test History of echocardiogram Cardiology follow-up encounter SACHA (generalized anxiety disorder) Strain of right hip History of colon polyps Acute otitis externa of left ear Acute sinusitis, unspecified TIA (transient ischemic attack) Episode of syncope Urinary tract infection with hematuria Contusion of right ankle Contusion of right foot GI bleed Positive PPD, treated Pneumonia Bronchitis Statin intolerance Dyspnea on exertion Chest pain Near syncope Orthostatic hypotension Hyperlipidemia GERD (gastroesophageal reflux disease) RSD (reflex sympathetic dystrophy) Essential hypertension Diabetes mellitus type II, controlled Strain of unspecified muscle, fascia and tendon at shoulder and upper arm level, right arm, initial encounter Asthma Shoulder pain Hemorrhoids Nausea & vomiting Depressed Asthma Home Medications ?Medication ?Instructions ?Recorded ?Last Taken ?Type omeprazole 20 mg capsule,delayed 20 mg PO DAILY GERD 01/04/20 Unknown History release ezetimibe 10 mg tablet 10 mg PO DAILY CHOLESTEROL #90 tabs 04/19/21 Unknown Rx diphenhydramine HCl 25 mg capsule 25 mg PO DAILY PRN allergy symptoms 03/28/22 Unknown History cyclobenzaprine 10 mg tablet 10 mg PO TID PRN Muscle Spasm #20 09/30/22 Unknown Rx TABLETS duloxetine 60 mg capsule,delayed 120 mg (2 x 60 mg) PO DAILY 10/15/22 Unknown Rx release ANXIETY 30 days #60 caps albuterol sulfate 90 mcg/actuation 2 puff inhalation Q4H PRN PRN 01/04/23 Unknown Rx aerosol inhaler (Ventolin HFA) Wheezing or shortness of breath #1 inh potassium chloride 20 mEq 20 meq PO BID #10 tabs 01/04/23 Unknown Rx tablet,extended release(part/cryst) pen needle, diabetic 32 gauge x #100 ea 03/05/23 Unknown Rx 5/32 (BD Ultra-Fine Thais Pen Needle) alcohol swabs 1 pad topical 4X/DAY #200 ea 04/28/23 Unknown Rx furosemide 40 mg tablet 40 mg PO DAILY PRN 04/28/23 Unknown History losartan 25 mg tablet 25 mg PO DAILY #30 tabs 04/28/23 Unknown Rx ondansetron 4 mg disintegrating 4 mg PO Q6H PRN nausea and 04/28/23 Unknown Rx tablet vomiting #10 tabs meclizine 25 mg tablet 25 mg PO TID PRN dizziness #30 tabs 05/23/23 Unknown Rx allopurinol 100 mg tablet 100 mg PO DAILY 06/18/23 Unknown History dulaglutide 1.5 mg/0.5 mL 1.5 mg (0.5 mL) subcut QWEEK #2 mL 09/17/23 Unknown Rx subcutaneous pen injector (Trulicity) flash glucose sensor (FreeStyle #2 ea 09/17/23 Unknown Rx Tanmay 2 Sensor kit) pen needle, diabetic 32 gauge x #100 ea 10/23/23 Unknown Rx 5/32 (BD Ultra-Fine Thais Pen Needle) lorazepam 1 mg tablet 0.5 mg (1/2 x 1 mg) PO DAILY PRN 12/03/23 Unknown Rx Anxiety #30 tabs ibuprofen 800 mg tablet 800 mg PO TID 12/24/23 Unknown History insulin aspart U-100 100 unit/mL 18 sliding scale dose subcut TID 12/24/23 Unknown History (3 mL) subcutaneous pen (Novolog FlexPen U-100 Insulin aspart) insulin glargine 100 unit/mL (3 28 unit subcut QAM 12/24/23 Unknown History mL) subcutaneous pen (Basaglar KwikPen U-100 Insulin) Kenalog 40 mg/mL suspension for 80 mg (2 mL) intra-articular ONCE 02/26/24 Unknown Clinic injection (triamcinolone acetonide) #2 mL Allergy/AdvReac Type Severity Reaction Status Date / Time adalimumab (From Humira) Allergy Unknown Verified 02/26/24 13:25 amoxicillin trihydrate (From Allergy Unknown Verified 02/26/24 13:25 Augmentin) codeine Allergy Itching Verified 02/26/24 13:25 etanercept (From Enbrel) Allergy Unknown Verified 02/26/24 13:25 leflunomide (From Arava) Allergy Other Verified 02/26/24 13:25 metoprolol tartrate (From Allergy Unknown Verified 02/26/24 13:25 Lopressor) morphine sulfate (From Allergy Unknown Verified 02/26/24 13:25 Embeda) naltrexone HCl (From Embeda) Allergy Unknown Verified 02/26/24 13:25 oxymorphone (Oxymorphone) Allergy Unknown Verified 02/26/24 13:25 pioglitazone HCl (From Actos) Allergy Other Verified 02/26/24 13:25 pneumococcal 23-valent Allergy Unknown Verified 02/26/24 13:25 polysacchari (From Pneumovax 23) potassium clavulanate (From Allergy Unknown Verified 02/26/24 13:25 Augmentin) Zxwjeso-MWL-YtB Reductase Allergy Unknown Verified 02/26/24 13:25 Inhibitor (Yhrfaax-Qfj-Ndo Reductase Inhibitor) Sulfa (Sulfonamide Allergy Anaphylaxis Verified 02/26/24 13:25 Antibiotics) sulfamethoxazole (From Allergy Anaphylaxis Verified 02/26/24 13:25 Bactrim) telithromycin (From Ketek) Allergy Unknown Verified 02/26/24 13:25 tramadol HCl (From Ultram) Allergy Unknown Verified 02/26/24 13:25 trimethoprim (From Bactrim) Allergy Anaphylaxis Verified 02/26/24 13:25 Family History Father Diabetes Hypertension Mother Diabetes Hypertension Colon polyp Other Cancer Surgical History History of arthroscopy of right knee History of hysterectomy History of appendectomy History of colonoscopy Hx of shoulder surgery Social History household members: none Smoking Status: Never smoker alcohol intake: current alcohol intake frequency: 0-2 drinks per day Alcohol type: hard liquor substance use type: other details: Gummies ROS ROS ED Constitutional Constitutional ED: Reports fatigue and malaise; Denies chills or fever(s) Eyes Eyes: Denies change in vision or diplopia ENT ENT ED: Denies rhinorrhea or sore throat Cardiovascular Cardiovascular: Reports lightheadedness and palpitations; Denies chest pain, radiating jaw, neck or arm pain or syncope Respiratory/Chest Respiratory/Chest: Denies cough or dyspnea Gastrointestinal Gastrointestinal: Reports nausea; Denies abdominal pain, diarrhea or vomiting Genitourinary Genitourinary ED: Reports urinary frequency; Denies dysuria or hematuria Musculoskeletal Musculoskeletal: Denies back pain or neck pain Integumentary Denies abscess or rash Neurologic Neurologic: Denies headache(s), paresthesias or weakness Psychiatric Psychiatric: Reports anxiety; Denies suicidal thoughts EXAM Physical Exam Const Vital Signs: 02/27/24 15:39 02/27/24 15:52 02/27/24 18:02 Temperature 96.3 F L Temperature Source Temporal Pulse Rate 106 H 98 Respiratory Rate 16 14 Respiratory Pattern Normal Blood Pressure 179/111 H 157/100 H Blood Pressure Mean 133 119 Pulse Ox 98 97 Oxygen Delivery Method Room Air Room Air Positive well nourished and well developed Constitutional Narrative: Appears a little shaky but no distress General Appearance ED: well developed and NAD HEENT Reports moist mucous membranes normocephalic and atraumatic Eyes PERRL and EOMs intact bilaterally Neck full ROM and supple Resp normal respiratory effort and clear to auscultation bilaterally Cardio regular rate, regular rhythm and no murmurs Rate: other Other Details: Mild tachycardia GI non-tender and non-distended Auscultation: normoactive bowel sounds Palpation: soft Back/Spine no CVA tenderness General Back: other FROM Extremity normal to inspection Extremity Narrative: Good range of motion right knee, injection site benign General Extremety ED: Negative for edema, pulses abnormal or tenderness General Extremity: Negative for edema or pulses abnormal Neuro oriented x3, CN's II-XII intact bilaterally and no sensory deficits noted Sensorium / Orientation: awake and alert Motor Exam: strength 5/5 throughout Psych Mood & Affect: anxious Skin no rashes or lesions noted and no wounds MDM MDM MDM Narrative Medical decision making narrative: BGT here is 531. I think the steroids have caused her sugars to go very high and that is probably what is causing her symptoms now, in addition to some mild dehydration from glycosuria/diuresis. While checking some basic labs, I am not expecting her to be in DKA since she is a type II diabetic, giving her a liter of IV fluids, some Zofran, and insulin. I reevaluation her blood sugars down to 345, she is feeling much better, urine shows glycosuria and no signs of infection and other than pseudohyponatremia the rest of her workup is unremarkable. She does have a leukocytosis, I suppose this is probably stress-induced. She feeling better so advised follow-up as needed and keep a close eye on her blood sugars and use her insulin as needed. She is comfortable with that plan. Lab Data Attestation: I reviewed the patient's lab results. Labs: Laboratory Results - last 24 hr 02/27/24 02/27/24 02/27/24 15:50 16:12 17:00 WBC 14.7 H RBC 5.31 Hgb 16.0 H Hct 47.8 H MCV 90.0 MCH 30.1 MCHC 33.5 RDW Std Deviation 41.3 RDW Coeff of Daiana 12.7 Plt Count 391 MPV 9.3 Immature Gran % (Auto) 0.700 Neut % (Auto) 89.4 H Lymph % (Auto) 5.5 L [place] % (Auto) 4.2 Eos % (Auto) 0.0 Baso % (Auto) 0.2 Absolute Neuts (auto) 13.1 H Absolute Lymphs (auto) 0.80 L Nucleated RBC % 0 Sodium 129 L Potassium 4.3 Chloride 100 Carbon Dioxide 16.0 L Anion Gap 13 BUN 22 H Creatinine 1.27 H Estim Creat Clear Calc 58.10 Est GFR (MDRD) Af Amer 56 L Est GFR (MDRD) Non-Af 46 L BUN/Creatinine Ratio 17.3 Glucose 562 H* Calcium 9.6 Urine Color Yellow Urine Clarity Clear Urine pH 7.0 Ur Specific [place] 1.010 Urine Protein 30 H Urine Glucose (UA) 1000 H Urine Ketones 5 H Urine Occult Blood Negative Urine Nitrite Negative Urine Bilirubin Negative Urine Urobilinogen Normal Ur Leukocyte Esterase Negative Urine RBC 0 SEEN Urine WBC 0 SEEN Ur Squamous Epith Cells 0 SEEN Urine Bacteria 0 SEEN Urine Mucus 0 SEEN POC Glucose > 500 H* 02/27/24 18:22 WBC RBC Hgb Hct MCV MCH MCHC RDW Std Deviation RDW Coeff of Daiana Plt Count MPV Immature Gran % (Auto) Neut % (Auto) Lymph % (Auto) Gl[place]ock % (Auto) Eos % (Auto) Baso % (Auto) Absolute Neuts (auto) Absolute Lymphs (auto) Nucleated RBC % Sodium Potassium Chloride Carbon Dioxide Anion Gap BUN Creatinine Estim Creat Clear Calc Est GFR (MDRD) Af Amer Est GFR (MDRD) Non-Af BUN/Creatinine Ratio Glucose Calcium Urine Color Urine Clarity Urine pH Ur Specific [place] Urine Protein Urine Glucose (UA) Urine Ketones Urine Occult Blood Urine Nitrite Urine Bilirubin Urine Urobilinogen Ur Leukocyte Esterase Urine RBC Urine WBC Ur Squamous Epith Cells Urine Bacteria Urine Mucus POC Glucose 345 H Rhythm Strip Rhythm Strip: Sinus Rhythm Rate: 98 Ectopy: None EKG Initial EKG: Attestation: I personally reviewed and interpreted this EKG as follows: Interpretation: Sinus Rhythm and No Acute Injury Pattern Discharge Plan Triage Chief Complaint: General Illness ED Provider: Andry Madrid Dx/Rx/DC Orders Clinical Impression: Steroid-induced hyperglycemia, Type 2 diabetes mellitus Instructions: ED Diabetic Hyperglycemia Prescriptions: No Action duloxetine 60 mg capsule,delayed release(DR/EC) 120 mg PO DAILY 30 Days Qty: 60 2RF furosemide 40 mg tablet 40 mg PO DAILY PRN losartan 25 mg tablet 25 mg PO DAILY Qty: 30 5RF alcohol swabs Pads, Medicated 1 pad topical 4X/DAY Qty: 200 5RF allopurinol 100 mg tablet 100 mg PO DAILY (DME) FreeStyle Tanmay 2 Sensor Kit See Rx Instructions .Route Qty: 2 5RF Rx Instructions: 1 sensor q 14 days Trulicity 1.5 mg/0.5 mL pen injector 1.5 mg subcut QWEEK Qty: 2 3RF insulin aspart U-100 [Novolog FlexPen U-100 Insulin] 100 unit/mL (3 mL) insulin pen 18 sliding scale dose subcut TID insulin glargine [Basaglar KwikPen U-100 Insulin] 100 unit/mL (3 mL) insulin pen 28 unit subcut QAM ibuprofen 800 mg tablet 800 mg PO TID triamcinolone acetonide [Kenalog] 40 mg/mL suspension 80 mg intra-articular ONCE Qty: 2 0RF omeprazole 20 mg capsule,delayed release(DR/EC) 20 mg PO DAILY Patient Comments: gastric reflux diphenhydramine HCl 25 mg capsule 25 mg PO DAILY PRN (Reason: allergy symptoms) ondansetron 4 mg tablet,disintegrating 4 mg PO Q6H PRN (Reason: nausea and vomiting) Qty: 10 0RF cyclobenzaprine 10 mg tablet 10 mg PO TID PRN (Reason: Muscle Spasm) Qty: 20 0RF potassium chloride 20 mEq tablet,ER particles/crystals 20 meq PO BID Qty: 10 0RF albuterol sulfate [Ventolin HFA] 90 mcg/actuation HFA aerosol inhaler 2 puff inhalation Q4H PRN PRN (Reason: Wheezing or shortness of breath) Qty: 1 0RF meclizine 25 mg tablet 25 mg PO TID PRN (Reason: dizziness) Qty: 30 0RF ezetimibe 10 mg tablet 10 mg PO DAILY Qty: 90 3RF (DME) pen needle, diabetic [BD Ultra-Fine Thais Pen Needle] 32 gauge x 5/32 needle See Rx Instructions .Route Qty: 100 5RF Rx Instructions: daily (DME) pen needle, diabetic [BD Ultra-Fine Thais Pen Needle] 32 gauge x 5/32 needle See Rx Instructions .Route Qty: 100 5RF Rx Instructions: 4x/day lorazepam 1 mg tablet 0.5 mg PO DAILY PRN (Reason: Anxiety) Qty: 30 1RF Primary Care Provider: Chantale Palm NP Referrals: Chantale Palm NP, [employer] [facility]ATOR-[facility] [Primary Care Provider] - 3-5 Days if not improving Print Language: Guatemalan Disposition Disposition: Home, Self Care
[2024-02-27 16:08] LABS: Bedside Glucose > 500 mg/dL (74-106)
[2024-02-27] MEDS: Insulin Lispro 100 UNIT/ML INSULN.PEN 16 UNIT SC (16:13)
[2024-02-27 16:24] LABS: Absolute Neutrophil Count 13.1 X10^3/uL (2.0-7.7); Basophil# 0.03 X10^3/uL; Basophil% 0.2 % (0-1); Hematocrit 47.8 % (37-47); Lymphocyte % 5.5 % (19-41); Mean Corp Hgb Conc 33.5 g/dL (32-36); Mean Corpuscular Hgb 30.1 pg (27.0-32.0); Mean Platelet Vol. 9.3 fl (6.2-12.0); Monocyte# 0.61 X10^3/uL; Monocyte% 4.2 % (0-10); NRBC Flagged by Analyzer 0 % (0-5); Neutrophil # 13.12 X10^3/uL (2.7-7.7); Neutrophil % 89.4 % (47-70); Platelet Count 391 K/mm3 (150-450); RBC Distribution Width CV 12.7 % (11.6-14.6); RBC Distribution Width SD 41.3 fl (35.1-43.9); Red Blood Count 5.31 M/mm3 (4.2-5.4); White Blood Count 14.7 K/mm3 (4.4-11.0)
[2024-02-27] MEDS: 0.9% Normal Saline (1000mL) 1,000 ML 999 ML IV (16:35)
[2024-02-27] MEDS: Ondansetron 4 MG/2 ML Vial IV (16:37)
[2024-02-27 16:39] LABS: Anion Gap 13 (5-15); BUN 22 mg/dL (7-18); BUN/Creat Ratio 17.3 RATIO (10-20); Calcium,Total 9.6 mg/dL (8.5-10.1); Chloride 100 mmol/L (98-107); Creatinine, Serum 1.27 mg/dL (0.55-1.02); EST Glomerular Filtration Rate 46 mL/min (>60); Est Glom Filt Rate - Afr Amer 56 mL/min (>60); Glucose 562 mg/dL (74-106); Potassium 4.3 mmol/L (3.5-5.1); Sodium Level 129 mmol/L (136-145)
[2024-02-27 17:20] LABS: Bacteria 0 SEEN /hpf (None Seen); Mucous, Urine 0 SEEN /hpf (<or=2+); Red Blood Cells-Urine 0 SEEN /hpf (0-5); Squamous Epithelial Cells - UA 0 SEEN /hpf (5-10); White Blood Cells 0 SEEN /hpf (0-5)
[2024-02-27 17:33] LABS: Color, Urine Yellow (Yellow); Glucose, Dipstick 1000 mg/dl (Normal); Ketone-Dipstick 5 mg/dl (Negative); Leukocyte Esterase-Dipstick Negative /ul (Negative); Nitrite-Dipstick Negative (Negative); Occult Blood-Urine Negative /ul (Negative); Protein-Dipstick 30 mg/dl (Negative); Urine Bilirubin Dipstick Negative (Negative); Urine Clarity Clear (Clear); Urine Urobilinogen Normal (Normal)
[2024-02-27 18:02] VITALS: BP 157/100; PULSE 98; RESP 14; O2SAT 97
[2024-02-27 18:40] LABS: Bedside Glucose 345 mg/dL (74-106)
[2024-02-27 19:05] VITALS: BP 159/92; PULSE 99; RESP 18; TEMP 36.3; O2SAT 97
== END 2024-02-27 19:09 | disposition home or self-care (01) ==
PROVIDERS: Emergency Provider Emergency Medicine; PCP Registered Nurse; Visit Provider Emergency Medicine
DX: T38.0X5A Adverse effect of glucocorticoids and synthetic analogues, initial encounter (principal); E11.65 Type 2 diabetes mellitus with hyperglycemia; J45.909 Unspecified asthma, uncomplicated; Z86.73 Personal history of transient ischemic attack (TIA), and cerebral infarction without residual deficits
CPT/HCPCS: 80048; 81001; 82962; 85025; 93005; 96361; 96374; 99284; A4216; J2405

== ENCOUNTER 2024-02-29 13:08 | Emergency (ER) | payer MEDICAID, SELFPAY ==
[2024-02-29 13:09] VITALS: BP 183/105; PULSE 90; RESP 20; TEMP 36.4; O2SAT 98; BMI 30.7
--- NOTE | 2024-02-29 13:37 | EDS_ITS ---
HPI <NADIA Hernandez - Last Filed: 02/29/24 17:19> History of Present Illness Chief Complaint: Hyperglycemia Narrative Narrative: Patient is a 58-year-old female with history of type 2 diabetes, hypertension, hyperlipidemia who is insulin-dependent who presents to the emergency department for elevated blood sugars. She was seen here 2 days ago for similar. On 25 February, she was given a cortisone injection to her right knee, prior to this cortisone injection, the patient also received oral antibiotics secondary to another issue. She states since then she believes her blood sugars are out of control. She is high on her monitor. She states that headache, blurred vision, excessive thirst, and feels lethargic. Patient denies any fever chills does complain of nausea without vomiting. PFS <NADIA Hernandez - Last Filed: 02/29/24 17:19> [facility] Medical History Osteoarthritis of right knee Contusion of right chest wall Contusion of right shoulder Contusion of forehead History of diabetes mellitus PTSD (post-traumatic stress disorder) Wears glasses Marijuana use Diabetes Arthritis Easy bruising High cholesterol Restless legs Injury of head and neck Difficulty swallowing Gastric reflux Non-smoker History of stress test History of echocardiogram Cardiology follow-up encounter SACHA (generalized anxiety disorder) Strain of right hip History of colon polyps Acute otitis externa of left ear Acute sinusitis, unspecified TIA (transient ischemic attack) Episode of syncope Urinary tract infection with hematuria Contusion of right ankle Contusion of right foot GI bleed Positive PPD, treated Pneumonia Bronchitis Statin intolerance Dyspnea on exertion Chest pain Near syncope Orthostatic hypotension Hyperlipidemia GERD (gastroesophageal reflux disease) RSD (reflex sympathetic dystrophy) Essential hypertension Diabetes mellitus type II, controlled Strain of unspecified muscle, fascia and tendon at shoulder and upper arm level, right arm, initial encounter Asthma Shoulder pain Hemorrhoids Nausea & vomiting Depressed Asthma Home Medications ?Medication ?Instructions ?Recorded ?Last Taken ?Type omeprazole 20 mg capsule,delayed 20 mg PO DAILY GERD 01/04/20 Unknown History release ezetimibe 10 mg tablet 10 mg PO DAILY CHOLESTEROL #90 tabs 04/19/21 Unknown Rx diphenhydramine HCl 25 mg capsule 25 mg PO DAILY PRN allergy symptoms 03/28/22 Unknown History cyclobenzaprine 10 mg tablet 10 mg PO TID PRN Muscle Spasm #20 09/30/22 Unknown Rx TABLETS duloxetine 60 mg capsule,delayed 120 mg (2 x 60 mg) PO DAILY 10/15/22 Unknown Rx release ANXIETY 30 days #60 caps albuterol sulfate 90 mcg/actuation 2 puff inhalation Q4H PRN PRN 01/04/23 Unknown Rx aerosol inhaler (Ventolin HFA) Wheezing or shortness of breath #1 inh pen needle, diabetic 32 gauge x #100 ea 03/05/23 Unknown Rx 5/32 (BD Ultra-Fine Thais Pen Needle) alcohol swabs 1 pad topical 4X/DAY #200 ea 04/28/23 Unknown Rx furosemide 40 mg tablet 40 mg PO DAILY PRN edema 04/28/23 Unknown History ondansetron 4 mg disintegrating 4 mg PO Q6H PRN nausea and 04/28/23 Unknown Rx tablet vomiting #10 tabs meclizine 25 mg tablet 25 mg PO TID PRN dizziness #30 tabs 05/23/23 Unknown Rx allopurinol 100 mg tablet 100 mg PO DAILY 06/18/23 Unknown History dulaglutide 1.5 mg/0.5 mL 1.5 mg (0.5 mL) subcut QWEEK #2 mL 09/17/23 Unknown Rx subcutaneous pen injector ([employer]) flash glucose sensor (FreeStyle #2 ea 09/17/23 Unknown Rx Tanmay 2 Sensor kit) pen needle, diabetic 32 gauge x #100 ea 10/23/23 Unknown Rx 5/32 (BD Ultra-Fine Thais Pen Needle) lorazepam 1 mg tablet 0.5 mg (1/2 x 1 mg) PO DAILY PRN 12/03/23 Unknown Rx Anxiety #30 tabs ibuprofen 800 mg tablet 800 mg PO TID 12/24/23 Unknown History insulin aspart U-100 100 unit/mL 18 sliding scale dose subcut TID 12/24/23 Unkn own History (3 mL) subcutaneous pen (Novolog FlexPen U-100 Insulin aspart) insulin glargine 100 unit/mL (3 28 unit subcut QAM 12/24/23 Unknown History mL) subcutaneous pen (Basaglar KwikPen U-100 Insulin) hydroxyzine HCl 25 mg tablet 25 mg PO DAILY PRN anxiety 02/29/24 Unknown History losartan 25 mg tablet 50 mg PO DAILY 02/29/24 Unknown History lurasidone 20 mg tablet 40 mg PO QHS 02/29/24 Unknown History Allergy/AdvReac Type Severity Reaction Status Date / Time adalimumab (From Humira) Allergy Unknown Verified 02/29/24 13:09 amoxicillin trihydrate (From Allergy Unknown Verified 02/29/24 13:09 Augmentin) codeine Allergy Itching Verified 02/29/24 13:09 etanercept (From Enbrel) Allergy Unknown Verified 02/29/24 13:09 leflunomide (From Arava) Allergy Other Verified 02/29/24 13:09 metoprolol tartrate (From Allergy Unknown Verified 02/29/24 13:09 Lopressor) morphine sulfate (From Allergy Unknown Verified 02/29/24 13:09 Embeda) naltrexone HCl (From Embeda) Allergy Unknown Verified 02/29/24 13:09 oxymorphone (Oxymorphone) Allergy Unknown Verified 02/29/24 13:09 pioglitazone HCl (From Actos) Allergy Other Verified 02/29/24 13:09 pneumococcal 23-valent Allergy Unknown Verified 02/29/24 13:09 polysacchari (From Pneumovax 23) potassium clavulanate (From Allergy Unknown Verified 02/29/24 13:09 Augmentin) Iddhaud-KAT-NtU Reductase Allergy Unknown Verified 02/29/24 13:09 Inhibitor (Adfetfy-Ick-Pux Reductase Inhibitor) Sulfa (Sulfonamide Allergy Anaphylaxis Verified 02/29/24 13:09 Antibiotics) sulfamethoxazole (From Allergy Anaphylaxis Verified 02/29/24 13:09 Bactrim) telithromycin (From Ketek) Allergy Unknown Verified 02/29/24 13:09 tramadol HCl (From Ultram) Allergy Unknown Verified 02/29/24 13:09 trimethoprim (From Bactrim) Allergy Anaphylaxis Verified 02/29/24 13:09 Family History Father Diabetes Hypertension Mother Diabetes Hypertension Colon polyp Other Cancer Surgical History History of arthroscopy of right knee History of hysterectomy History of appendectomy History of colonoscopy Hx of shoulder surgery Social History household members: none Smoking Status: Never smoker alcohol intake: current alcohol intake frequency: 0-2 drinks per day Alcohol type: hard liquor substance use type: other details: Gummies ROS <ELOISA HernandezC - Last Filed: 02/29/24 17:19> ROS ED ROS Narrative Constitutional: Negative for fever, chills, weight loss. Positive for weakness Eyes: Negative for vision loss, vision change, double vision ENT: Negative for any sore throat, ear pain, congestion Cardiovascular: Negative for any chest pain, tightness, palpitations Respiratory: Negative for any cough, sputum production, hemoptysis, dyspnea, dyspnea on exertion, orthopnea Gastrointestinal: Negative for any abdominal pain,vomiting, diarrhea, constipation, blood in stool, blood in vomit. Positive for nausea : Negative for any urinary frequency, dysuria, retention, blood in urine Muscle skeletal: Negative for any neck pain, back pain Neurological: Negative for any headache, syncope. Positive for dizziness Skin: Negative for any rashes, itching, abrasions, lacerations Psychiatric: Negative for any depression, anxiety, stress, suicidal ideation, homicidal ideation Hematologic: Negative for any excessive bruising, easy bleeding EXAM <NADIA Hernandez - Last Filed: 02/29/24 17:19> Physical Exam Narrative Exam Narrative: Vital signs reviewed. Patient does not appear to be in any distress however does appear to not feel well HEET: Head normocephalic atraumatic, TMs clear bilaterally. Posterior pharynx is clear, dry mucous membranes. Nares clear bilaterally. Neck: Supple with no lymphadenopathy or tenderness. No signs of meningismus. Cardiac: Regular rate and rhythm no murmurs gallops or rubs, equal peripheral pulses bilaterally. Respiratory: Lungs clear to auscultation bilaterally. No chest tenderness. Abdomen: Soft, nontender, nondistended. No abdominal bruit or pulsatile masses. No hepatosplenomegaly Extremities: No peripheral edema, no signs of gross trauma or deformity. Active full range of motion of all extremities. Neuro: Cranial nerves II through XII intact, no focal neurological deficits. Skin: Clean dry and intact with no rash, purpura, petechiae, vesicles or pustules. Backs/flank: No CVA tenderness, no midline spinal tenderness, no deformity. Psych: Normal mood and affect. No SI, HI or acute psychosis. Const Vital Signs: 02/29/24 13:09 02/29/24 13:43 02/29/24 15:09 Temperature 97.6 F L 98.1 F Temperature Source Temporal Oral Pulse Rate 90 78 Respiratory Rate 20 H 16 Respiratory Effort Normal Respiratory Pattern Normal Blood Pressure 183/105 H 177/93 H Blood Pressure Mean 131 121 Pulse Ox 98 97 Oxygen Delivery Method Room Air Room Air <Dr. Roe Corea DO - Last Filed: 02/29/24 17:24> Physical Exam Const Vital Signs: 02/29/24 13:09 02/29/24 13:43 02/29/24 15:09 Temperature 97.6 F L 98.1 F Temperature Source Temporal Oral Pulse Rate 90 78 Respiratory Rate 20 H 16 Respiratory Effort Normal Respiratory Pattern Normal Blood Pressure 183/105 H 177/93 H Blood Pressure Mean 131 121 Pulse Ox 98 97 Oxygen Delivery Method Room Air Room Air MDM <NADIA Hernandez - Last Filed: 02/29/24 17:19> MDM Lab Data Labs: Laboratory Results - last 24 hr 02/29/24 02/29/24 02/29/24 13:45 13:52 15:44 WBC 15.3 H RBC 5.17 Hgb 15.5 H Hct 47.1 H MCV 91.1 MCH 30.0 MCHC 32.9 RDW Std Deviation 42.5 RDW Coeff of Daiana 12.7 Plt Count 395 MPV 9.0 Immature Gran % (Auto) 0.600 Neut % (Auto) 87.0 H Lymph % (Auto) 5.8 L Osborne % (Auto) 6.4 Eos % (Auto) 0.1 Baso % (Auto) 0.1 Absolute Neuts (auto) 13.3 H Absolute Lymphs (auto) 0.89 Nucleated RBC % 0 Sodium 129 L Potassium 4.7 Chloride 97 L Carbon Dioxide 21.0 Anion Gap 11 BUN 22 H Creatinine 1.25 H Estim Creat Clear Calc 58.84 Est GFR (MDRD) Af Amer 57 L Est GFR (MDRD) Non-Af 47 L BUN/Creatinine Ratio 17.6 Glucose 491 H* Lactic Acid 5.3 H* Calcium 9.2 Total Bilirubin 0.50 AST 16 ALT 45 Alkaline Phosphatase 108 Total Protein 8.0 Albumin 3.7 Globulin 4.3 H Albumin/Globulin Ratio 0.9 Lipase 56 Urine Color Yellow Urine Clarity Clear Urine pH 6.5 Ur Specific [place] 1.015 Urine Protein 30 H Urine Glucose (UA) 1000 H Urine Ketones Negative Urine Occult Blood 25 H Urine Nitrite Negative Urine Bilirubin Negative Urine Urobilinogen Normal Ur Leukocyte Esterase 500 H Urine RBC 0 SEEN Urine WBC 10-25 SEEN Ur Squamous Epith Cells 0-5 SEEN Urine Bacteria 0 SEEN Urine Mucus 0 SEEN Acetone Level NEGATIVE POC Glucose 374 H 02/29/24 16:04 WBC RBC Hgb Hct MCV MCH MCHC RDW Std Deviation RDW Coeff of Daiana Plt Count MPV Immature Gran % (Auto) Neut % (Auto) Lymph % (Auto) Osborne % (Auto) Eos % (Auto) Baso % (Auto) Absolute Neuts (auto) Absolute Lymphs (auto) Nucleated RBC % Sodium Potassium Chloride Carbon Dioxide Anion Gap BUN Creatinine Estim Creat Clear Calc Est GFR (MDRD) Af Amer Est GFR (MDRD) Non-Af BUN/Creatinine Ratio Glucose Lactic Acid 4.0 H* Calcium Total Bilirubin AST ALT Alkaline Phosphatase Total Protein Albumin Globulin Albumin/Globulin Ratio Lipase Urine Color Urine Clarity Urine pH Ur Specific [place] Urine Protein Urine Glucose (UA) Urine Ketones Urine Occult Blood Urine Nitrite Urine Bilirubin Urine Urobilinogen Ur Leukocyte Esterase Urine RBC Urine WBC Ur Squamous Epith Cells Urine Bacteria Urine Mucus Acetone Level POC Glucose Treatment and Re-Evaluation :: Differential diagnosis includes however is not limited to: Hyperglycemia, electrolyte abnormality, STEFANO, DKA, dehydrated Patient appears to be in no obvious respiratory distress vital signs are stable presented to emergency department for elevated blood sugar after steroid injection as well as oral steroids 1.5 weeks ago. Patient received basic laboratory values, will any DKA, electrode abnormality. IV fluids will be given. Patient states that she is unsure if she is given herself insulin today or not. Patient will be reevaluated After receiving 2 L of normal saline, IV insulin, patient reevaluation felt much better. Patient's laboratory values did show some leukocytosis with white blood count of 15.3, I do believe this is secondary to the steroids, this is reactive. Patient's chemistries show a hyponatremia at 129, this is likely related to hyperglycemia. BUN is 22 with a creatinine of 1.25, this is similar from 2 days ago. Patient's blood sugar was 491, lactic acid was 5.3. Lipase was negative. Patient did receive urinalysis was negative for infection. Blood cultures were drawn. Reevaluation again patient felt better, repeat lactic was 4.0. I do believe that the patient is stable for discharge. Patient feels well enough to be discharged home. She was given strict return precaution. All questions answered, stable for discharge. <Dr. Roe Corea, DO - Last Filed: 02/29/24 17:24> [facility] History & Record Review Discussion w/independent historian: Patient Lab Data Attestation: I reviewed the patient's lab results. Labs: Laboratory Results - last 24 hr 02/29/24 02/29/24 02/29/24 13:45 13:52 15:44 WBC 15.3 H RBC 5.17 Hgb 15.5 H Hct 47.1 H MCV 91.1 MCH 30.0 MCHC 32.9 RDW Std Deviation 42.5 RDW Coeff of Daiana 12.7 Plt Count 395 MPV 9.0 Immature Gran % (Auto) 0.600 Neut % (Auto) 87.0 H Lymph % (Auto) 5.8 L Osborne % (Auto) 6.4 Eos % (Auto) 0.1 Baso % (Auto) 0.1 Absolute Neuts (auto) 13.3 H Absolute Lymphs (auto) 0.89 Nucleated RBC % 0 Sodium 129 L Potassium 4.7 Chloride 97 L Carbon Dioxide 21.0 Anion Gap 11 BUN 22 H Creatinine 1.25 H Estim Creat Clear Calc 58.84 Est GFR (MDRD) Af Amer 57 L Est GFR (MDRD) Non-Af 47 L BUN/Creatinine Ratio 17.6 Glucose 491 H* Lactic Acid 5.3 H* Calcium 9.2 Total Bilirubin 0.50 AST 16 ALT 45 Alkaline Phosphatase 108 Total Protein 8.0 Albumin 3.7 Globulin 4.3 H Albumin/Globulin Ratio 0.9 Lipase 56 Urine Color Yellow Urine Clarity Clear Urine pH 6.5 Ur Specific [place] 1.015 Urine Protein 30 H Urine Glucose (UA) 1000 H Urine Ketones Negative Urine Occult Blood 25 H Urine Nitrite Negative Urine Bilirubin Negative Urine Urobilinogen Normal Ur Leukocyte Esterase 500 H Urine RBC 0 SEEN Urine WBC 10-25 SEEN Ur Squamous Epith Cells 0-5 SEEN Urine Bacteria 0 SEEN Urine Mucus 0 SEEN Acetone Level NEGATIVE POC Glucose 374 H 02/29/24 16:04 WBC RBC Hgb Hct MCV MCH MCHC RDW Std Deviation RDW Coeff of Daiana Plt Count MPV Immature Gran % (Auto) Neut % (Auto) Lymph % (Auto) [place] % (Auto) Eos % (Auto) Baso % (Auto) Absolute Neuts (auto) Absolute Lymphs (auto) Nucleated RBC % Sodium Potassium Chloride Carbon Dioxide Anion Gap BUN Creatinine Estim Creat Clear Calc Est GFR (MDRD) Af Amer Est GFR (MDRD) Non-Af BUN/Creatinine Ratio Glucose Lactic Acid 4.0 H* Calcium Total Bilirubin AST ALT Alkaline Phosphatase Total Protein Albumin Globulin Albumin/Globulin Ratio Lipase Urine Color Urine Clarity Urine pH Ur Specific [place] Urine Protein Urine Glucose (UA) Urine Ketones Urine Occult Blood Urine Nitrite Urine Bilirubin Urine Urobilinogen Ur Leukocyte Esterase Urine RBC Urine WBC Ur Squamous Epith Cells Urine Bacteria Urine Mucus Acetone Level POC Glucose Treatment and Re-Evaluation :: Differential diagnosis includes however is not limited to: Hyperglycemia, electrolyte abnormality, STEFANO, DKA, dehydrated Patient appears to be in no obvious respiratory distress vital signs are stable presented to emergency department for elevated blood sugar after steroid injection as well as oral steroids 1.5 weeks ago. Patient received basic laboratory values, will any DKA, electrode abnormality. IV fluids will be given. Patient states that she is unsure if she is given herself insulin today or not. Patient will be reevaluated After receiving 2 L of normal saline, IV insulin, patient reevaluation felt much better. Patient's laboratory values did show some leukocytosis with white blood count of 15.3, I do believe this is secondary to the steroids, this is reactive. Patient's chemistries show a hyponatremia at 129, this is likely related to hyperglycemia. BUN is 22 with a creatinine of 1.25, this is similar from 2 days ago. Patient's blood sugar was 491, lactic acid was 5.3. Lipase was negative. Patient did receive urinalysis was negative for infection. Blood cultures were drawn. Reevaluation again patient felt better, repeat lactic was 4.0. I do believe that the patient is stable for discharge. Patient feels well enough to be discharged home. She was given strict return precaution. All questions answered, stable for discharge. I have personally performed a face to face assessment of the patient and have reviewed the [place] Note. I performed a substantive portion of the visit including all aspects of the following. My marie findings include: History is 58-year-old female presenting to the emergency room with hyperglycemia. Patient has been on recent oral steroids as well as a intra- articular knee injection recently. She was seen in the emergency department 2 days ago I did review that visit as well as the labs obtained from that visit. Unsure if she gave herself insulin today. The patient denies any fevers. She denies any rashes or obvious infections. She is noting a right occipital headache that extends from from cervical cranial junction laterally towards the right scientology. She denies vision changes. Exam is ANO x 3 hemodynamically stable. No physical exams of shock state noted. The knee joint does not appear with any erythema or swelling Medical Decison Making basic labs were obtained. This demonstrates a hyperglycemia and hyponatremia that corrects. Her anion gap and CO2 levels are normal in fact her CO2 level is higher than it was the other day. Her lactic acid is spuriously elevated at 5.3. I do not see any medications that should obviously raise this to this level. However I am not seeing any physical exam shock or infection on her. Patient received 2 L of IV fluids. She received some subcutaneous insulin. Patient is feeling good. Patient needs to be diligent with her insulin and home medications. I do recommend PCP follow-up this week early. She was given return instructions and she notes understanding of them. Discharge Plan Triage Chief Complaint: Hyperglycemia ED Midlevel Provider: Dimitri Wong ED Provider: Roe Corea Dx/Rx/DC Orders Clinical Impression: Steroid-induced hyperglycemia Prescriptions: No Action duloxetine 60 mg capsule,delayed release(DR/EC) 120 mg PO DAILY 30 Days Qty: 60 2RF furosemide 40 mg tablet 40 mg PO DAILY PRN (Reason: edema) alcohol swabs Pads, Medicated 1 pad topical 4X/DAY Qty: 200 5RF allopurinol 100 mg tablet 100 mg PO DAILY (DME) FreeStyle Tanmay 2 Sensor Kit See Rx Instructions .Route Qty: 2 5RF Rx Instructions: 1 sensor q 14 days Trulicity 1.5 mg/0.5 mL pen injector 1.5 mg subcut QWEEK Qty: 2 3RF insulin aspart U-100 [Novolog FlexPen U-100 Insulin] 100 unit/mL (3 mL) insulin pen 18 sliding scale dose subcut TID insulin glargine [Basaglar KwikPen U-100 Insulin] 100 unit/mL (3 mL) insulin pen 28 unit subcut QAM ibuprofen 800 mg tablet 800 mg PO TID omeprazole 20 mg capsule,delayed release(DR/EC) 20 mg PO DAILY Patient Comments: gastric reflux diphenhydramine HCl 25 mg capsule 25 mg PO DAILY PRN (Reason: allergy symptoms) ondansetron 4 mg tablet,disintegrating 4 mg PO Q6H PRN (Reason: nausea and vomiting) Qty: 10 0RF cyclobenzaprine 10 mg tablet 10 mg PO TID PRN (Reason: Muscle Spasm) Qty: 20 0RF albuterol sulfate [Ventolin HFA] 90 mcg/actuation HFA aerosol inhaler 2 puff inhalation Q4H PRN PRN (Reason: Wheezing or shortness of breath) Qty: 1 0RF meclizine 25 mg tablet 25 mg PO TID PRN (Reason: dizziness) Qty: 30 0RF lurasidone 20 mg tablet 40 mg PO QHS hydroxyzine HCl 25 mg tablet 25 mg PO DAILY PRN losartan 25 mg tablet 50 mg PO DAILY ezetimibe 10 mg tablet 10 mg PO DAILY Qty: 90 3RF (DME) pen needle, diabetic [BD Ultra-Fine Thais Pen Needle] 32 gauge x 5/32 needle See Rx Instructions .Route Qty: 100 5RF Rx Instructions: daily (DME) pen needle, diabetic [BD Ultra-Fine Thais Pen Needle] 32 gauge x 5/32 needle See Rx Instructions .Route Qty: 100 5RF Rx Instructions: 4x/day lorazepam 1 mg tablet 0.5 mg PO DAILY PRN (Reason: Anxiety) Qty: 30 1RF Primary Care Provider: Chantale Palm NP Referrals: Chantale Palm NP, [employer] [Primary Care Provider] - Activity Restrictions/Additional Instructions: Please take your medications as prescribed. Follow-up outpatient. Return for worsening symptoms Print Language: Dutch Disposition Disposition: Home, Self Care
[2024-02-29] MEDS: 0.9% Normal Saline (1000mL) 1,000 ML 999 ML IV ×2 (13:50→14:52)
[2024-02-29] MEDS: Ondansetron 4 MG/2 ML Vial IV (13:50)
[2024-02-29 13:57] LABS: Absolute Lymphocyte Count 0.89 X10^3/uL (0.83-4.51); Absolute Neutrophil Count 13.3 X10^3/uL (2.0-7.7); Basophil# 0.02 X10^3/uL; Basophil% 0.1 % (0-1); Eosinophil# 0.02 X10^3/uL; Eosinophils% 0.1 % (0-5); Hematocrit 47.1 % (37-47); Hemoglobin 15.5 g/dL (12.0-15.0); Lymphocyte # 0.89 X10^3/ul (0.83-4.51); Lymphocyte % 5.8 % (19-41); Mean Corp Hgb Conc 32.9 g/dL (32-36); Mean Corpuscular Volume 91.1 fL (81-99); Monocyte# 0.98 X10^3/uL; Monocyte% 6.4 % (0-10); NRBC Flagged by Analyzer 0 % (0-5); Neutrophil # 13.31 X10^3/uL (2.7-7.7); Platelet Count 395 K/mm3 (150-450); RBC Distribution Width CV 12.7 % (11.6-14.6); RBC Distribution Width SD 42.5 fl (35.1-43.9); Red Blood Count 5.17 M/mm3 (4.2-5.4); White Blood Count 15.3 K/mm3 (4.4-11.0)
[2024-02-29 13:59] LABS: Bacteria 0 SEEN /hpf (None Seen); Mucous, Urine 0 SEEN /hpf (<or=2+); Red Blood Cells-Urine 0 SEEN /hpf (0-5)
[2024-02-29 14:01] LABS: Color, Urine Yellow (Yellow); Glucose, Dipstick 1000 mg/dl (Normal); Ketone-Dipstick Negative (Negative); Leukocyte Esterase-Dipstick 500 /ul (Negative); Nitrite-Dipstick Negative (Negative); Occult Blood-Urine 25 /ul (Negative); Protein-Dipstick 30 mg/dl (Negative); Specific Gravity, Urine 1.015 (1.002-1.030); Urine Bilirubin Dipstick Negative (Negative); Urine Clarity Clear (Clear); Urine Urobilinogen Normal (Normal); Urine pH 6.5 (5.0 - 8.0)
[2024-02-29 14:07] LABS: Squamous Epithelial Cells - UA 0-5 SEEN /hpf (5-10)
[2024-02-29 14:08] LABS: White Blood Cells 10-25 SEEN /hpf (0-5)
[2024-02-29 14:21] LABS: ALB/GLOB Ratio 0.9 RATIO (0.9-2.4); AST(SGOT) 16 U/L (15-37); Alanine Aminotransfer ALT/SGPT 45 U/L (13-56); Albumin, Serum 3.7 g/dL (3.2-5.0); Alkaline Phosphatase 108 U/L (45-117); Anion Gap 11 (5-15); BUN 22 mg/dL (7-18); BUN/Creat Ratio 17.6 RATIO (10-20); Calcium,Total 9.2 mg/dL (8.5-10.1); Chloride 97 mmol/L (98-107); Creatinine, Serum 1.25 mg/dL (0.55-1.02); EST Glomerular Filtration Rate 47 mL/min (>60); Est Glom Filt Rate - Afr Amer 57 mL/min (>60); Estimated Creatinine Clearance 58.84 ml/min; Globulin 4.3 g/dL (2.2-4.2); Glucose 491 mg/dL (74-106); Lactic Acid 5.3 mmol/L (0.4-1.9); Potassium 4.7 mmol/L (3.5-5.1); Sodium Level 129 mmol/L (136-145)
[2024-02-29] MEDS: Insulin Lispro 100 UNIT/ML INSULN.PEN 15 UNIT SC (14:49)
[2024-02-29 15:02] LABS: Lipase 56 U/L (13-75)
[2024-02-29 15:09] VITALS: BP 177/93; PULSE 78; RESP 16; TEMP 36.7; O2SAT 97
[2024-02-29 16:04] LABS: Bedside Glucose 374 mg/dL (74-106)
[2024-02-29 17:00] VITALS: BP 177/93; PULSE 80
[2024-02-29 17:30] VITALS: BP 162/88; PULSE 73; RESP 16; TEMP 36.1; O2SAT 97
[2024-02-29 17:51] LABS: Reflex Lactate? Y
[2024-02-29 20:08] LABS: Reflex Lactate? Y
== END 2024-02-29 17:32 | disposition home or self-care (01) ==
PROVIDERS: Nurse Practitioner; Emergency Provider Emergency Medicine; PCP Registered Nurse; Visit Provider Emergency Medicine
DX: T38.0X5A Adverse effect of glucocorticoids and synthetic analogues, initial encounter (principal); E11.65 Type 2 diabetes mellitus with hyperglycemia; Z79.4 Long term (current) use of insulin; E78.00 Pure hypercholesterolemia, unspecified; I10 Essential (primary) hypertension; J45.909 Unspecified asthma, uncomplicated; Z79.51 Long term (current) use of inhaled steroids; Z79.899 Other long term (current) drug therapy; Z86.73 Personal history of transient ischemic attack (TIA), and cerebral infarction without residual deficits
CPT/HCPCS: 80053; 81001; 82009; 82962; 83605; 83690; 85025; 87040; 96361; 96374; 96376; 99283; J7030; A4216; J2405

== ENCOUNTER → 2024-04-16 | Outpatient (CLI) | payer MEDICAID, SELFPAY ==
[2024-04-16 12:23] LABS: Hematocrit 40.2 % (37-47); Hemoglobin 13.1 g/dL (12.0-15.0); Mean Corp Hgb Conc 32.6 g/dL (32-36); Mean Corpuscular Hgb 29.9 pg (27.0-32.0); Mean Corpuscular Volume 91.8 fL (81-99); Mean Platelet Vol. 8.7 fl (6.2-12.0); Platelet Count 390 K/mm3 (150-450); RBC Distribution Width CV 12.7 % (11.6-14.6); RBC Distribution Width SD 42.6 fl (35.1-43.9); Red Blood Count 4.38 M/mm3 (4.2-5.4); White Blood Count 9.8 K/mm3 (4.4-11.0)
[2024-04-16 12:37] LABS: Hemoglobin A1c 8.7 % (3.8-5.6)
[2024-04-16 12:52] LABS: ALB/GLOB Ratio 0.9 RATIO (0.9-2.4); AST(SGOT) 37 U/L (15-37); Alanine Aminotransfer ALT/SGPT 42 U/L (13-56); Albumin, Serum 3.3 g/dL (3.2-5.0); Alkaline Phosphatase 142 U/L (45-117); Anion Gap 8 (5-15); BUN 12 mg/dL (7-18); BUN/Creat Ratio 15.2 RATIO (10-20); Calcium,Total 8.8 mg/dL (8.5-10.1); Chloride 108 mmol/L (98-107); Creatinine, Serum 0.79 mg/dL (0.55-1.02); EST Glomerular Filtration Rate 80 mL/min (>60); Est Glom Filt Rate - Afr Amer 96 mL/min (>60); Globulin 3.8 g/dL (2.2-4.2); Glucose 223 mg/dL (74-106); Protein, Total 7.1 g/dL (6.4-8.2); Sodium Level 139 mmol/L (136-145)
[2024-04-16 15:15] LABS: BNP,B-Type NATRIURETIC PEPTIDE 12.7 pg/mL (0-100)
== END | disposition home or self-care (01) ==
LOC: LAB 11:23
PROVIDERS: PCP Registered Nurse; Referring Provider Pharmacist Pharmacist Clinician (PhC)/ Clinical Pharmacy Specialist; Visit Provider Pharmacist Pharmacist Clinician (PhC)/ Clinical Pharmacy Specialist
DX: R53.83 Other fatigue (principal); Z79.899 Other long term (current) drug therapy
CPT/HCPCS: 36415; 80053; 83036; 83880; 84443; 85027

== ENCOUNTER → 2024-04-23 | Outpatient (CLI) | payer MEDICAID, SELFPAY ==
[2024-04-23 11:33] LABS: BNP,B-Type NATRIURETIC PEPTIDE 7.3 pg/mL (0-100)
[2024-04-23 11:51] LABS: Vitamin D,25 Hydroxy 29.7 ng/mL
[2024-04-23 11:52] LABS: Cholesterol 265 mg/dL (200); High Density Lipoprotein 74 mg/dL; Triglycerides 247 mg/dL; Very Low Density Lipoprotein 49 mg/dL (5-40)
[2024-04-23 12:04] LABS: Microalbumin,Random Urine 44.6 mg/L (NO RANGE EST.); Microalbumin:Creatinine Ratio 58.5 mg/g CRE (<30 mg/g CRE)
== END | disposition home or self-care (01) ==
LOC: LAB 10:39
PROVIDERS: PCP Registered Nurse; Referring Provider Nurse Practitioner Family; Visit Provider Nurse Practitioner Family
DX: E11.65 Type 2 diabetes mellitus with hyperglycemia (principal)
CPT/HCPCS: 36415; 80061; 82043; 82306; 82570; 83880

== ENCOUNTER 2024-07-23 12:00 | Outpatient (RCR) | payer MEDICAID, SELFPAY | END 2024-07-23 19:00 | disposition home or self-care (01) | LOC: PT 12:00 | PROVIDERS: PCP Registered Nurse; Referring Provider Orthopaedic Surgery Sports Medicine; Visit Provider Orthopaedic Surgery Sports Medicine | DX: M17.12 Unilateral primary osteoarthritis, left knee (principal); M25.562 Pain in left knee | CPT/HCPCS: 97035; 97110; 97161 ==

== ENCOUNTER → 2024-10-18 | Outpatient (CLI) | payer MEDICAID, SELFPAY ==
[2024-10-18 13:49] LABS: ALB/GLOB Ratio 1.5 RATIO (0.9-2.4); AST(SGOT) 73 U/L (<=31); Alanine Aminotransfer ALT/SGPT 73 U/L (<=34); Albumin, Serum 4.2 g/dL (3.5-5.0); Alkaline Phosphatase 142 U/L (35-104); Anion Gap 15 (5-15); BUN 11 mg/dL (4-19); BUN/Creat Ratio 16.4 RATIO (10-20); Calcium,Total 9.5 mg/dL (7.6-11.0); Carbon Dioxide 23.2 mmol/L (21.0-32.0); Chloride 103 mmol/L (98-108); Cholesterol 250 mg/dL (<=200); EST Glomerular Filtration Rate 100 (>60); Globulin 2.9 g/dL (2.2-4.2); Glucose 144 mg/dL (70-99); High Density Lipoprotein 58 mg/dL; Low Density Lipoprotein Calc. 139 mg/dL; Protein, Total 7.1 g/dL (5.9-8.4); Sodium Level 141 mmol/L (133-145); Total Bilirubin 0.31 mg/dL (0.00-1.30); Triglycerides 261 mg/dL; Very Low Density Lipoprotein 52 mg/dL (5-40); cholesterol:hdl ratio screen 4.28
== END | disposition home or self-care (01) ==
LOC: LAB 11:46
PROVIDERS: PCP Registered Nurse; Referring Provider Nurse Practitioner Family; Visit Provider Nurse Practitioner Family
DX: I10 Essential (primary) hypertension (principal)
CPT/HCPCS: 36415; 80053; 80061

== ENCOUNTER → 2024-10-20 | Outpatient (CLI) | payer MEDICAID, SELFPAY ==
--- NOTE | 2024-10-20 10:48 | US_ITS ---
PROCEDURE: ABDOMEN LIMITED (USABDL), 10/20/2024 REASON FOR EXAM: ELEVATED LIVER ENZYMES, HX OF LIVER DISEASE COMPARISON: 08/02/2022 FINDINGS: Liver: Echogenic. 18.9 cm in length. Gallbladder: Surgically absent. Biliary tree: Unremarkable. CBD measures 5 mm. Pancreas: Partially obscured by shadowing bowel gas, grossly unremarkable as visualized. Right kidney: Unremarkable. 10.9 cm in length. Other: No visualized free fluid. US/Abdomen Limited IMPRESSION: 1. Diffuse hepatic steatosis and mild hepatomegaly. Correlate for clinical and laboratory evidence of chronic liver disease. 2. Cholecystectomy without biliary dilatation. Reading Location: [id number]
== END | disposition home or self-care (01) ==
LOC: US 10:47
PROVIDERS: PCP Registered Nurse; Referring Provider Nurse Practitioner Family; Visit Provider Nurse Practitioner Family
DX: R74.8 Abnormal levels of other serum enzymes (principal)
CPT/HCPCS: 76705

== ENCOUNTER 2024-11-07 17:35 | Emergency (ER) | payer MEDICAID, SELFPAY ==
[2024-11-07] VITALS (7 sets, daily range): BP systolic 146–186; BP diastolic 76–100; PULSE 78–99; RESP 16–18; TEMP 36.6–36.8; O2SAT 96–99; BMI 33.5
--- NOTE | 2024-11-07 17:59 | CT_ITS ---
PROCEDURE: ABDOMEN/PELVIS W IV CONT ONLY 11/07/2024 REASON FOR EXAM: ABDOMINAL PAIN TECHNIQUE: Abdomen and pelvis CT with intravenous contrast. Coronal and Sagittal reconstruction series were provided. PATIENT PREPARATION: Per protocol ORAL CONTRAST TYPE: None. AMOUNT: mL CONTRAST: Isovue 370 VOLUME: 100 mL Not Provided Gauge IV One or more dose reduction techniques were used (e.g., Automated exposure control, adjustment of the mA and/or kV according to patient size, use of iterative reconstruction technique. RADIATION DOSE SUMMARY: CTDlvol: 32 mGy DLP: 1240 mGycm COMPARISON: CT of the abdomen and pelvis dated 08/02/2022. FINDINGS: Lung bases: Unremarkable heart size is normal. No pericardial effusion. Liver: Diffuse fatty infiltration. Gallbladder: Surgically absent. Spleen: Normal size. Pancreas: Normal size without evidence of mass surrounding inflammation or ductal dilation. Adrenals: Unremarkable Kidneys: Normal renal sizes. No hydronephrosis. Bladder: Unremarkable Reproductive Organs: Surgically absent. Bowel: Evaluation of the bowel loops are limited due to lack of oral contrast. Stomach is unremarkable. No inflammatory changes of the small or large bowel. Scattered colonic diverticulosis without evidence of diverticulitis. Appendix: Surgically absent Lymph nodes: No lymphadenopathy. Vasculature: Unremarkable. Peritoneum / Retroperitoneum: No free air or free fluid. Bones: Unremarkable CT/Abdomen/Pelvis W IV Cont ONLY IMPRESSION: NO ACUTE FINDINGS AT THE ABDOMEN OR PELVIS ON CONTRAST-ENHANCED CT. Reading [facility]
--- NOTE | 2024-11-07 18:07 | EX.ED.DYSGE1 ---
HPI <CHEPE Singh - Last Filed: 11/07/24 21:14> History of Present Illness Chief Complaint: Nausea/Vomiting Narrative Narrative: Patient presenting today with mid abdominal pain, nausea, and vomiting she has had intermittently over the past week. She reports a history of chronic abdominal issues and previously followed with GI but no long sees them. She has had a cholecystectomy and appendectomy in the past. She reports that earlier in the week she was having diarrhea which subsided. She had 1 episode of black-colored stool last night but did take Pepto-Bismol a few days ago. She is not sure if she has ever had a GI bleed. She denies fevers, chills, hematemesis, and urinary symptoms. PFS <CHEPE Singh - Last Filed: 11/07/24 21:14> [facility] Medical History Osteoarthritis of left knee Left knee pain Osteoarthritis of right knee Contusion of right chest wall Contusion of right shoulder Contusion of forehead History of diabetes mellitus PTSD (post-traumatic stress disorder) Wears glasses Marijuana use Diabetes Arthritis Easy bruising High cholesterol Restless legs Injury of head and neck Difficulty swallowing Gastric reflux Non-smoker History of stress test History of echocardiogram Cardiology follow-up encounter SACHA (generalized anxiety disorder) Strain of right hip History of colon polyps Acute otitis externa of left ear Acute sinusitis, unspecified TIA (transient ischemic attack) Episode of syncope Urinary tract infection with hematuria Contusion of right ankle Contusion of right foot GI bleed Positive PPD, treated Pneumonia Bronchitis Statin intolerance Dyspnea on exertion Chest pain Near syncope Orthostatic hypotension Hyperlipidemia GERD (gastroesophageal reflux disease) RSD (reflex sympathetic dystrophy) Essential hypertension Diabetes mellitus type II, controlled Strain of unspecified muscle, fascia and tendon at shoulder and upper arm level, right arm, initial encounter Asthma Shoulder pain Hemorrhoids Nausea & vomiting Depressed Asthma Home Medications ?Medication ?Instructions ?Recorded ?Last Taken ?Type ezetimibe 10 mg tablet 10 mg PO DAILY CHOLESTEROL #90 tabs 04/19/21 Unknown Rx diphenhydramine HCl 25 mg capsule 25 mg PO DAILY PRN allergy symptoms 03/28/22 Unknown History duloxetine 60 mg capsule,delayed 120 mg (2 x 60 mg) PO DAILY 10/15/22 Unknown Rx release ANXIETY 30 days #60 caps albuterol sulfate 90 mcg/actuation 2 puff inhalation Q4H PRN PRN 01/04/23 Unknown Rx aerosol inhaler (Ventolin HFA) Wheezing or shortness of breath #1 inh pen needle, diabetic 32 gauge x #100 ea 03/05/23 Unknown Rx 5/32 (BD Ultra-Fine [place] Pen Needle) alcohol swabs 1 pad topical 4X/DAY #200 ea 04/28/23 Unknown Rx ondansetron 4 mg disintegrating 4 mg PO Q6H PRN nausea and 04/28/23 Unknown Rx tablet vomiting #10 tabs meclizine 25 mg tablet 25 mg PO TID PRN dizziness #30 tabs 05/23/23 Unknown Rx allopurinol 100 mg tablet 100 mg PO DAILY 06/18/23 Unknown History pen needle, diabetic 32 gauge x #100 ea 10/23/23 Unknown Rx 5/32 (BD Ultra-Fine Thais Pen Needle) lorazepam 1 mg tablet 0.5 mg (1/2 x 1 mg) PO DAILY PRN 12/03/23 Unknown Rx Anxiety #30 tabs ibuprofen 800 mg tablet 800 mg PO DAILY 12/24/23 Unknown History insulin aspart U-100 100 unit/mL 18 sliding scale dose subcut TID 12/24/23 Unknown History (3 mL) subcutaneous pen (Novolog FlexPen U-100 Insulin aspart) hydroxyzine HCl 25 mg tablet 25 mg PO DAILY PRN anxiety 02/29/24 Unknown History colchicine 0.6 mg capsule 0.6 mg PO QDAY PRN Gout 04/21/24 Unknown History furosemide 20 mg tablet 20 mg PO QDAY 04/21/24 Unknown History losartan 100 mg tablet 100 mg PO QDAY 04/21/24 Unknown History omega-3 acid ethyl esters 1 gram 1 cap PO BID #180 caps 04/26/24 Unknown Rx capsule flash glucose sensor (FreeStyle #2 ea 06/21/24 Unknown Rx Tanmay 2 Sensor kit) cholecalciferol (vitamin D3) 50 50 mcg PO QDAY #90 caps 07/19/24 Unknown Rx mcg (2,000 unit) capsule omeprazole 20 mg capsule,delayed 40 mg PO DAILY GERD 07/19/24 Unknown History release dulaglutide 3 mg/0.5 mL 3 mg (0.5 mL) subcut QWEEK #2 mL 08/02/24 Unknown Rx subcutaneous pen injector (Trulicity) insulin glargine 100 unit/mL (3 30 unit (0.3 mL) subcut QAM #27 mL 08/02/24 Unknown Rx mL) subcutaneous pen (Basaglar KwikPen U-100 Insulin) brexpiprazole 0.5 mg tablet 0.5 mg PO QDAY 10/18/24 Unknown History (Rexulti) dicyclomine 10 mg capsule 10 mg PO TID PRN abdominal pain 7 11/07/24 Unknown Rx days #21 caps metoclopramide HCl 10 mg tablet 10 mg PO Q6H PRN nausea and 11/07/24 Unknown Rx (Reglan) vomiting 5 days #20 tabs zinc acetate 25 mg (zinc) capsule 25 mg PO DAILY 11/07/24 Unknown History (Galzin) Allergy/AdvReac Type Severity Reaction Status Date / Time clindamycin Allergy Mild Rash Verified 11/07/24 17:39 adalimumab (From Humira) Allergy Unknown Verified 11/07/24 17:39 amoxicillin trihydrate (From Allergy Unknown Verified 11/07/24 17:39 Augmentin) codeine Allergy Itching Verified 11/07/24 17:39 etanercept (From Enbrel) Allergy Unknown Verified 11/07/24 17:39 leflunomide (From Arava) Allergy Other Verified 11/07/24 17:39 metoprolol tartrate (From Allergy Unknown Verified 11/07/24 17:39 Lopressor) morphine sulfate (From Allergy Unknown Verified 11/07/24 17:39 Embeda) naltrexone HCl (From Embeda) Allergy Unknown Verified 11/07/24 17:39 oxymorphone (Oxymorphone) Allergy Unknown Verified 11/07/24 17:39 pioglitazone HCl (From Actos) Allergy Other Verified 11/07/24 17:39 pneumococcal 23-valent Allergy Unknown Verified 11/07/24 17:39 polysacchari (From Pneumovax 23) potassium clavulanate (From Allergy Unknown Verified 11/07/24 17:39 Augmentin) [id number]-UNU-LsW Reductase Allergy Unknown Verified 11/07/24 17:39 Inhibitor (Softwoe-Ccs-Oqk Reductase Inhibitor) Sulfa (Sulfonamide Allergy Anaphylaxis Verified 11/07/24 17:39 Antibiotics) sulfamethoxazole (From Allergy Anaphylaxis Verified 11/07/24 17:39 Bactrim) telithromycin (From Ketek) Allergy Unknown Verified 11/07/24 17:39 tramadol HCl (From Ultram) Allergy Unknown Verified 11/07/24 17:39 trimethoprim (From Bactrim) Allergy Anaphylaxis Verified 11/07/24 17:39 Family History Father Diabetes Hypertension Mother Diabetes Hypertension Colon polyp Other Cancer Surgical History History of arthroscopy of right knee History of hysterectomy History of appendectomy History of colonoscopy Hx of shoulder surgery Social History household members: none Smoking Status: Never smoker alcohol intake: current alcohol intake frequency: 0-2 drinks per day Alcohol type: hard liquor substance use type: other details: Gumumm ROS <CHEEP Singh - Last Filed: 11/07/24 21:14> ROS ED Constitutional Constitutional ED: Denies chills or fever(s) Cardiovascular Cardiovascular: Denies chest pain Respiratory/Chest Respiratory/Chest: Denies dyspnea Gastrointestinal Gastrointestinal: Reports abdominal pain, nausea and vomiting; Denies constipation or diarrhea Genitourinary Genitourinary ED: Denies dysuria, hematuria or urinary urgency Musculoskeletal Musculoskeletal: Denies arthralgias or myalgias Integumentary Denies rash Neurologic Neurologic: Denies weakness EXAM <CHEPE Singh - Last Filed: 11/07/24 21:14> Physical Exam Const Vital Signs: 11/07/24 17:36 11/07/24 17:38 11/07/24 18:38 Temperature 98.2 F 98.2 F 98 F Temperature Source Oral Oral Oral Pulse Rate 99 99 93 Respiratory Rate 16 16 18 Blood Pressure 186/100 H 186/100 H 146/78 H Blood Pressure Mean 128 128 100 Pulse Ox 99 99 96 Oxygen Delivery Method Room Air Room Air Room Air 11/07/24 19:00 11/07/24 19:37 11/07/24 21:00 Temperature 98.3 F 98.3 F Temperature Source Oral Oral Pulse Rate 92 87 78 Respiratory Rate 18 17 16 Blood Pressure 148/76 H 160/88 H 158/78 H Blood Pressure Mean 100 112 104 Pulse Ox 98 99 98 Oxygen Delivery Method Room Air Room Air 11/07/24 21:18 Temperature 98 F Temperature Source Pulse Rate 78 Respiratory Rate 16 Blood Pressure 158/78 H Blood Pressure Mean 104 Pulse Ox 98 Oxygen Delivery Method Positive well nourished, well developed and no apparent distress General Appearance ED: well developed HEENT Reports normocephalic and head/scalp atraumatic Mouth ED: Yes moist mucous membranes normal Eyes PERRL and EOMs intact bilaterally Neck full ROM and supple Chest Wall inspection of chest normal Resp normal respiratory effort and clear to auscultation bilaterally Cardio regular rate and regular rhythm GI soft to palpation, non-distended and no masses GI Narrative: Mid abdominal tenderness to palpation, no rigidity or guarding. Rectal exam performed with nurse in room, normal sphincter tone, brown stool noted. Back/Spine normal ROM and normal to inspection Extremity normal to inspection and full ROM Neuro oriented x3, CN's II-XII intact bilaterally, moves all extremities, no focal motor deficits and no sensory deficits noted Sensorium / Orientation: awake and alert Psych mental status grossly normal and thought process normal Skin no rashes or lesions noted and no wounds <Dr. Hawk Mejia DO - Last Filed: 11/07/24 21:48> Physical Exam Const Vital Signs: 11/07/24 17:36 11/07/24 17:38 11/07/24 18:38 Temperature 98.2 F 98.2 F 98 F Temperature Source Oral Oral Oral Pulse Rate 99 99 93 Respiratory Rate 16 16 18 Blood Pressure 186/100 H 186/100 H 146/78 H Blood Pressure Mean 128 128 100 Pulse Ox 99 99 96 Oxygen Delivery Method Room Air Room Air Room Air 11/07/24 19:00 11/07/24 19:37 11/07/24 21:00 Temperature 98.3 F 98.3 F Temperature Source Oral Oral Pulse Rate 92 87 78 Respiratory Rate 18 17 16 Blood Pressure 148/76 H 160/88 H 158/78 H Blood Pressure Mean 100 112 104 Pulse Ox 98 99 98 Oxygen Delivery Method Room Air Room Air 11/07/24 21:18 Temperature 98 F Temperature Source Pulse Rate 78 Respiratory Rate 16 Blood Pressure 158/78 H Blood Pressure Mean 104 Pulse Ox 98 Oxygen Delivery Method MDM <CHEPE Singh - Last Filed: 11/07/24 21:14> MDM MDM Narrative Medical decision making narrative: Patient resenting due to mid abdominal pain, nausea, vomiting she has had over the past week. She did have diarrhea earlier in the week that resolved. She reports having a black-colored stool yesterday but also did take Pepto-Bismol, rectal exam was performed and brown stools noted, Hemoccult negative. Given abdominal pain, CT scan of the abdomen and pelvis will be obtained to assess for colitis, diverticulitis, bowel obstruction, mass, and other etiology. Labs obtained, she has mild elevation of her transaminases, this has been elevated in the past. CT scan negative for any acute findings. She was given IV fluids, Toradol, and Zofran and on reexamination she reports improvement of her symptoms. She has had no vomiting here. She is tolerating p.o. fluids. I will give her a prescription for antiemetics and Bentyl for home. I have given her a GI referral. Recommended she follow-up with GI and her PCP in the next 5 to 7 days she will be discharged in stable condition. Lab Data Attestation: I reviewed the patient's lab results. Lab results narrative: Hemoglobin 16.8, sodium 132, anion gap 18, AST 67, ALT 87, alk phos 186, lipase 35, UA negative for UTI Labs: Laboratory Results - last 24 hr 11/07/24 11/07/24 17:59 20:11 WBC 8.5 RBC 5.63 H Hgb 16.8 H Hct 50.8 H MCV 90.2 MCH 29.8 MCHC 33.1 RDW Std Deviation 44.2 H RDW Coeff of Daiana 13.3 Plt Count 301 MPV 9.1 Immature Gran % (Auto) 0.200 Neut % (Auto) 52.2 Lymph % (Auto) 37.2 [place] % (Auto) 8.6 Eos % (Auto) 1.2 Baso % (Auto) 0.6 Absolute Neuts (auto) 4.4 Absolute Lymphs (auto) 3.15 Nucleated RBC % 0 Sodium 132 L Potassium 3.4 Chloride 95 L Carbon Dioxide 19.1 L Anion Gap 18 H BUN 8 Creatinine 0.95 Estim Creat Clear Calc 77.21 Est GFR (MDRD) Non-Af 70 BUN/Creatinine Ratio 9.0 L Glucose 393 H Calcium 9.7 Total Bilirubin 0.64 AST 67 H ALT 87 H Alkaline Phosphatase 186 H Total Protein 7.6 Albumin 4.4 Globulin 3.1 Albumin/Globulin Ratio 1.4 Lipase 35 Urine Color Yellow Urine Clarity Clear Urine pH 6.5 Ur Specific [place] 1.010 Urine Protein 15 H Urine Glucose (UA) Normal Urine Ketones Negative Urine Occult Blood Negative Urine Nitrite Negative Urine Bilirubin Negative Urine Urobilinogen Normal Ur Leukocyte Esterase Negative Urine RBC 0-5 SEEN Urine WBC 0-5 SEEN Ur Squamous Epith Cells 5-10 SEEN Urine Bacteria 1+ Hyaline Casts 0-5 SEEN Urine Mucus 0 SEEN Radiography Diagnostic Testing: Clinical Impression(s) from Imaging Studies Abdomen/Pelvis CT 11/07/24 17:59 IMPRESSION: NO ACUTE FINDINGS AT THE ABDOMEN OR PELVIS ON CONTRAST-ENHANCED CT. Reading Location: [facility] <Dr. Hawk Mejia, DO - Last Filed: 11/07/24 21:48> [facility] Narrative Medical decision making narrative: Patient resenting due to mid abdominal pain, nausea, vomiting she has had over the past week. She did have diarrhea earlier in the week that resolved. She reports having a black-colored stool yesterday but also did take Pepto-Bismol, rectal exam was performed and brown stools noted, Hemoccult negative. Given abdominal pain, CT scan of the abdomen and pelvis will be obtained to assess for colitis, diverticulitis, bowel obstruction, mass, and other etiology. Labs obtained, she has mild elevation of her transaminases, this has been elevated in the past. CT scan negative for any acute findings. She was given IV fluids, Toradol, and Zofran and on reexamination she reports improvement of her symptoms. She has had no vomiting here. She is tolerating p.o. fluids. I will give her a prescription for antiemetics and Bentyl for home. I have given her a GI referral. Recommended she follow-up with GI and her PCP in the next 5 to 7 days she will be discharged in stable condition. ED attending note: I evaluated the patient in conjunction with the [place]. I agree with his/her statements and above findings. I have personally performed a face to face assessment of the patient and have reviewed the [place] Note. I performed a substantive portion of the visit including all aspects of the following. I personally saw the patient performed chart review, physical exam, reviewed labs, imaging (if obtained), and formulated a treatment and management plan. This note was generated with [employer] software. It may contain incorrect words, spelling, and punctuation that were not noted in review of the chart prior to signing. Lab Data Labs: Laboratory Results - last 24 hr 11/07/24 11/07/24 17:59 20:11 WBC 8.5 RBC 5.63 H Hgb 16.8 H Hct 50.8 H MCV 90.2 MCH 29.8 MCHC 33.1 RDW Std Deviation 44.2 H RDW Coeff of Daiana 13.3 Plt Count 301 MPV 9.1 Immature Gran % (Auto) 0.200 Neut % (Auto) 52.2 Lymph % (Auto) 37.2 [place] % (Auto) 8.6 Eos % (Auto) 1.2 Baso % (Auto) 0.6 Absolute Neuts (auto) 4.4 Absolute Lymphs (auto) 3.15 Nucleated RBC % 0 Sodium 132 L Potassium 3.4 Chloride 95 L Carbon Dioxide 19.1 L Anion Gap 18 H BUN 8 Creatinine 0.95 Estim Creat Clear Calc 77.21 Est GFR (MDRD) Non-Af 70 BUN/Creatinine Ratio 9.0 L Glucose 393 H Calcium 9.7 Total Bilirubin 0.64 AST 67 H ALT 87 H Alkaline Phosphatase 186 H Total Protein 7.6 Albumin 4.4 Globulin 3.1 Albumin/Globulin Ratio 1.4 Lipase 35 Urine Color Yellow Urine Clarity Clear Urine pH 6.5 Ur Specific [place] 1.010 Urine Protein 15 H Urine Glucose (UA) Normal Urine Ketones Negative Urine Occult Blood Negative Urine Nitrite Negative Urine Bilirubin Negative Urine Urobilinogen Normal Ur Leukocyte Esterase Negative Urine RBC 0-5 SEEN Urine WBC 0-5 SEEN Ur Squamous Epith Cells 5-10 SEEN Urine Bacteria 1+ Hyaline Casts 0-5 SEEN Urine Mucus 0 SEEN Radiography Diagnostic Testing: Clinical Impression(s) from Imaging Studies Abdomen/Pelvis CT 11/07/24 17:59 IMPRESSION: NO ACUTE FINDINGS AT THE ABDOMEN OR PELVIS ON CONTRAST-ENHANCED CT. Reading Location: [facility] Discharge Plan Triage Chief Complaint: Nausea/Vomiting ED Midlevel Provider: Petty Quiroz ED Provider: Hawk Mejia Dx/Rx/DC Orders Clinical Impression: Abdominal pain, Nausea & vomiting Instructions: Abdominal Pain, ED Vomiting (Adult) Prescriptions: New dicyclomine 10 mg capsule 10 mg PO TID PRN (Reason: abdominal pain) 7 Days Qty: 21 0RF metoclopramide HCl [Reglan] 10 mg tablet 10 mg PO Q6H PRN (Reason: nausea and vomiting) 5 Days Qty: 20 0RF No Action duloxetine 60 mg capsule,delayed release(DR/EC) 120 mg PO DAILY 30 Days Qty: 60 2RF alcohol swabs Pads, Medicated 1 pad topical 4X/DAY Qty: 200 5RF allopurinol 100 mg tablet 100 mg PO DAILY insulin aspart U-100 [Novolog FlexPen U-100 Insulin] 100 unit/mL (3 mL) insulin pen 18 sliding scale dose subcut TID ibuprofen 800 mg tablet 800 mg PO DAILY furosemide 20 mg tablet 20 mg PO QDAY losartan 100 mg tablet 100 mg PO QDAY colchicine 0.6 mg capsule 0.6 mg PO QDAY PRN (Reason: Gout) cholecalciferol (vitamin D3) 50 mcg (2,000 unit) capsule 50 mcg PO QDAY Qty: 90 1RF Rexulti 0.5 mg tablet 0.5 mg PO QDAY omeprazole 20 mg capsule,delayed release(DR/EC) 40 mg PO DAILY Patient Comments: gastric reflux diphenhydramine HCl 25 mg capsule 25 mg PO DAILY PRN (Reason: allergy symptoms) ondansetron 4 mg tablet,disintegrating 4 mg PO Q6H PRN (Reason: nausea and vomiting) Qty: 10 0RF albuterol sulfate [Ventolin HFA] 90 mcg/actuation HFA aerosol inhaler 2 puff inhalation Q4H PRN PRN (Reason: Wheezing or shortness of breath) Qty: 1 0RF meclizine 25 mg tablet 25 mg PO TID PRN (Reason: dizziness) Qty: 30 0RF hydroxyzine HCl 25 mg tablet 25 mg PO DAILY PRN Galzin 25 mg (zinc) capsule 25 mg PO DAILY ezetimibe 10 mg tablet 10 mg PO DAILY Qty: 90 3RF (DME) pen needle, diabetic [BD Ultra-Fine Thais Pen Needle] 32 gauge x 5/32 needle See Rx Instructions .Route Qty: 100 5RF Rx Instructions: daily (DME) pen needle, diabetic [BD Ultra-Fine Thais Pen Needle] 32 gauge x 5/32 needle See Rx Instructions .Route Qty: 100 5RF Rx Instructions: 4x/day lorazepam 1 mg tablet 0.5 mg PO DAILY PRN (Reason: Anxiety) Qty: 30 1RF omega-3 acid ethyl esters 1 gram capsule 1 cap PO BID Qty: 180 1RF (DME) FreeStyle Tanmay 2 Sensor Kit See Rx Instructions .Route Qty: 2 5RF Rx Instructions: 1 sensor q 14 days Trulicity 3 mg/0.5 mL pen injector 3 mg subcut QWEEK Qty: 2 3RF insulin glargine [Basaglar KwikPen U-100 Insulin] 100 unit/mL (3 mL) insulin pen 30 unit subcut QAM Qty: 27 1RF Primary Care Provider: Chantale Palm NP Referrals: Yousif Casey DO [Med Staff - Active Staff] - 1 Week Chantale Palm NP, CLIENT REPORTING ASSOCIATE-C [Primary Care Provider] - Activity Restrictions/Additional Instructions: Follow-up with GI. Return for any worsening symptoms. Print Language: Moroccan Disposition Disposition: Home, Self Care Discharge Date/Time: 11/07/24 21:18
[2024-11-07] MEDS: 0.9% Normal Saline (1000mL) 1,000 ML 999 ML IV (18:08)
[2024-11-07] MEDS: Ketorolac 15 MG/ML Vial IV (18:09)
[2024-11-07] MEDS: Ondansetron 4 MG/2 ML Vial IV (18:09)
[2024-11-07 18:14] LABS: Absolute Lymphocyte Count 3.15 X10^3/uL (0.83-4.51); Absolute Neutrophil Count 4.4 X10^3/uL (2.0-7.7); Basophil# 0.05 X10^3/uL; Basophil% 0.6 % (0-1); Eosinophils% 1.2 % (0-5); Hematocrit 50.8 % (37-47); Hemoglobin 16.8 g/dL (12.0-15.0); Lymphocyte # 3.15 X10^3/ul (0.83-4.51); Lymphocyte % 37.2 % (19-41); Mean Corp Hgb Conc 33.1 g/dL (32-36); Mean Corpuscular Hgb 29.8 pg (27.0-32.0); Mean Corpuscular Volume 90.2 fL (81-99); Mean Platelet Vol. 9.1 fl (6.2-12.0); Monocyte# 0.73 X10^3/uL; Monocyte% 8.6 % (0-10); NRBC Flagged by Analyzer 0 % (0-5); Neutrophil # 4.41 X10^3/uL (2.7-7.7); Neutrophil % 52.2 % (47-70); Platelet Count 301 K/mm3 (150-450); RBC Distribution Width CV 13.3 % (11.6-14.6); RBC Distribution Width SD 44.2 fl (35.1-43.9); Red Blood Count 5.63 M/mm3 (4.2-5.4); White Blood Count 8.5 K/mm3 (4.4-11.0)
[2024-11-07 18:27] LABS: ALB/GLOB Ratio 1.4 RATIO (0.9-2.4); AST(SGOT) 67 U/L (<=31); Alanine Aminotransfer ALT/SGPT 87 U/L (<=34); Albumin, Serum 4.4 g/dL (3.5-5.0); Alkaline Phosphatase 186 U/L (35-104); Anion Gap 18 (5-15); BUN 8 mg/dL (4-19); Calcium,Total 9.7 mg/dL (7.6-11.0); Carbon Dioxide 19.1 mmol/L (21.0-32.0); Chloride 95 mmol/L (98-108); Creatinine, Serum 0.95 mg/dL (0.70-1.20); EST Glomerular Filtration Rate 70 (>60); Estimated Creatinine Clearance 77.21 ml/min (50-250); Globulin 3.1 g/dL (2.2-4.2); Glucose 393 mg/dL (70-99); Lipase 35 U/L (13-75); Potassium 3.4 mmol/L (3.3-5.1); Protein, Total 7.6 g/dL (5.9-8.4); Sodium Level 132 mmol/L (133-145); Total Bilirubin 0.64 mg/dL (0.00-1.30)
[2024-11-07 20:15] LABS: Mucous, Urine 0 SEEN /hpf (<or=2+)
[2024-11-07 20:16] LABS: Color, Urine Yellow (Yellow); Glucose, Dipstick Normal (Normal); Ketone-Dipstick Negative (Negative); Leukocyte Esterase-Dipstick Negative /ul (Negative); Nitrite-Dipstick Negative (Negative); Occult Blood-Urine Negative /ul (Negative); Protein-Dipstick 15 mg/dl (Negative); Urine Bilirubin Dipstick Negative (Negative); Urine Clarity Clear (Clear); Urine Urobilinogen Normal (Normal); Urine pH 6.5 (5.0 - 8.0)
[2024-11-07 21:02] LABS: Red Blood Cells-Urine 0-5 SEEN /hpf (0-5); Squamous Epithelial Cells - UA 5-10 SEEN /hpf (5-10); White Blood Cells 0-5 SEEN /hpf (0-5)
[2024-11-07 21:03] LABS: Bacteria 1+ /hpf (None Seen); Hyaline Cast 0-5 SEEN /lpf (0-5)
== END 2024-11-07 21:18 | disposition home or self-care (01) ==
PROVIDERS: Physician Assistant; Emergency Provider Emergency Medicine; PCP Registered Nurse; Visit Provider Emergency Medicine
DX: R11.2 Nausea with vomiting, unspecified (principal); E11.9 Type 2 diabetes mellitus without complications; Z79.4 Long term (current) use of insulin; R10.9 Unspecified abdominal pain; G89.29 Other chronic pain; I10 Essential (primary) hypertension; E78.00 Pure hypercholesterolemia, unspecified; K21.9 Gastro-esophageal reflux disease without esophagitis; F41.1 Generalized anxiety disorder; F32.A Depression, unspecified; F43.10 Post-traumatic stress disorder, unspecified; J45.909 Unspecified asthma, uncomplicated; Z88.0 Allergy status to penicillin; Z79.85 Long-term (current) use of injectable non-insulin antidiabetic drugs; Z90.49 Acquired absence of other specified parts of digestive tract; Z86.73 Personal history of transient ischemic attack (TIA), and cerebral infarction without residual deficits; Z87.19 Personal history of other diseases of the digestive system; Z79.899 Other long term (current) drug therapy
CPT/HCPCS: 74177; 80053; 81001; 82274; 83690; 85025; 96361; 96374; 96375; 99283; Q9967; J2405

== ENCOUNTER → 2024-12-01 | Outpatient (CLI) | payer MEDICAID, SELFPAY ==
[2024-12-01 11:48] LABS: Hematocrit 45.2 % (37-47); Hemoglobin 15.3 g/dL (12.0-15.0); Mean Corp Hgb Conc 33.8 g/dL (32-36); Mean Corpuscular Hgb 30.2 pg (27.0-32.0); Mean Corpuscular Volume 89.3 fL (81-99); Mean Platelet Vol. 9.3 fl (6.2-12.0); Platelet Count 276 K/mm3 (150-450); RBC Distribution Width CV 12.4 % (11.6-14.6); RBC Distribution Width SD 40.5 fl (35.1-43.9); Red Blood Count 5.06 M/mm3 (4.2-5.4); White Blood Count 8.9 K/mm3 (4.4-11.0)
[2024-12-01 13:01] LABS: ALB/GLOB Ratio 1.5 RATIO (0.9-2.4); AST(SGOT) 85 U/L (<=31); Alanine Aminotransfer ALT/SGPT 77 U/L (<=34); Albumin, Serum 3.9 g/dL (3.5-5.0); Alkaline Phosphatase 132 U/L (35-104); Anion Gap 13 (5-15); BUN 11 mg/dL (4-19); BUN/Creat Ratio 16.9 RATIO (10-20); Calcium,Total 9.2 mg/dL (7.6-11.0); Carbon Dioxide 21.9 mmol/L (21.0-32.0); Chloride 103 mmol/L (98-108); Cholesterol 223 mg/dL (<=200); Creatinine, Serum 0.64 mg/dL (0.70-1.20); EST Glomerular Filtration Rate 102 (>60); Globulin 2.7 g/dL (2.2-4.2); Glucose 313 mg/dL (70-99); High Density Lipoprotein 46 mg/dL; Low Density Lipoprotein Calc. 134 mg/dL; Potassium 4.1 mmol/L (3.3-5.1); Protein, Total 6.6 g/dL (5.9-8.4); Sodium Level 138 mmol/L (133-145); Total Bilirubin 0.33 mg/dL (0.00-1.30); Triglycerides 220 mg/dL; Very Low Density Lipoprotein 44 mg/dL (5-40); Vitamin D,25 Hydroxy 42.9 ng/mL (30-100)
== END | disposition home or self-care (01) ==
LOC: LAB 11:28
PROVIDERS: PCP Registered Nurse; Referring Provider Registered Nurse; Visit Provider Registered Nurse
DX: E11.22 Type 2 diabetes mellitus with diabetic chronic kidney disease (principal); N18.30 Chronic kidney disease, stage 3 unspecified; Z13.29 Encounter for screening for other suspected endocrine disorder; Z13.21 Encounter for screening for nutritional disorder
CPT/HCPCS: 36415; 80053; 80061; 82306; 84439; 84443; 85027

== ENCOUNTER 2024-12-21 12:43 | Outpatient (RCR) | payer MEDICAID, SELFPAY ==
--- NOTE | 2024-12-21 15:33 | HP.FCE ---
Task Lift Floor (Occasional 1-33% of Day): 0 Floor (Frequent 34-66% of Day): 0 Floor (Constant 67-100% of Day): 0 Floor PDL: Sedentary Knee (Occasional 1-33% of Day): 0 Knee (Frequent 34-66% of Day): 0 Knee (Constant 67-100% of Day): 0 Knee PDL: Sedentary Waist (Occasional 1-33% of Day): 15lb Waist (Frequent 34-66% of Day): 7.5lb Waist (Constant 67-100% of Day): 3.16 Waist PDL: Sedentary-Light Shoulder (Occasional 1-33% of Day): 0 Shoulder (Frequent 34-66% of Day): 0 Shoulder (Constant 67-100% of Day): 0 Shoulder PDL: Sedentary Overhead (Occasional 1-33% of Day): 0 Overhead (Frequent 34-66% of Day): 0 Overhead (Constant 67-100% of Day): 0 Overhead PDL: Sedentary Work Activity/Posture Bending: No Ablility (0% of day) Squatting: No Ablility (0% of day) Kneeling: No Ablility (0% of day) Reaching out: No Ablility (0% of day) Reaching up: Occasional Ability (1-33% of day) Sitting: Frequent Ability (34-66% of day) Walking: Occasional Ability (1-33% of day) Standing: Occasional Ability (1-33% of day) Reference Reference: Duration Sedentary Sedentary Light Light Light Medium Medium Medium Heavy Very Heavy Heavy Occasional (0-33% of day) Frequent (34-66% of day) Constant (67-100% of day) 10 # Negligible Negligible 15 # 8 # Negligible 20 # 10# Negli. 35 # 18 # 7 # 50 # 25 # 10 # 75 # 100 # >100 # 38 # 50 # >50 # 15 # 20 # >20 # Patient Information Height: 5 ft 8 in Weight:: 92.9 kg Hand Dominance: Right BP (Medication Use/Usual Values per pt report): pt reports inconsistent BP and daily BP medication Medical History Medical History Including Restrictions: Pt has long history of CRPS following a traumatic L ankle fracture in 2005; HTN, uncontrolled DMII, cervical fusion C2-C6 (2020); OA; gout Diagnoses Diagnoses: CRPS - G90.5 Symptoms Symptoms: Constant all over pain; R side LE numbness and stinging; arthritis pain in bilateral hands; intermittent dizziness and shortness of breath; pt has bilateral shoulder pain and reported tear in L rotator cuff Pain Pain: 10/10 all over, constant Marci Pain questionnaire: 43/78 Work History 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 Pt reports fear of falling and repeatedly mentions how this evaluation will cause her additional pain. Per pt, lives alone in 1 story home with 6 entry steps with a bilateral handrail; ADLS ADLS: Pt has been able to manage ADLs with increased time and pain; pt has limited driving to/from work - about 5 minutes. Pt uses microwave meals and eats prepared foods. Pt has assist with cleaning tasks. Pt has assist with grocery shopping. Pt has 6 entry steps with a unilateral handrail and has been struggling to navigate the entry steps. Pt is very limited in household tasks and takes frequent breaks with all ADLs and iADLs. Physical Examination Physical Examination: Pt appears well, some tremors throughout movement tasks, which pt reports is her baseline. Pt exhibits frequent facial grimacing throughout evaluation d/t pain. Baseline: HR - 100 SPO2 - 96 ROM: ROM: RUE - limited flexion to 90 degrees; limited internal/external rotation LUE - WNL Pt has functional range of motion in bilateral elbows, forearms, wrists, hands, and fingers. Strength: FET Peak used to measure strength R elbow flexion: 3.7lb extension: 10.1 R shoulder flexion: 3.1lb external rotation: 0lb L elbow flexion: 9.4lb extension: 8.7lb L shoulder flexion: 7.6lb external rotation: 7lb R knee flexion: 15.5lb extension: 17.7lb R hip flexion: 16.1lb L knee flexion: 17.9lb extension: 18.3lb L hip flexion: 9.3lb HR: 102 SPO2: 97 Right Instructor [employer] Strength Average: 30.00 Right Instructor [employer] Strength Percentile: 0th Left Instructor [employer] Strength Average: 26.66 Left Instructor [employer] Strength Percentile: 0th Right Lateral Pinch Average: 4.00 Right Lateral Pinch Percentile: 0th Left Lateral Pinch Average: 3.66 Left Lateral Pinch Percentile: 0th Right Tripod Pinch Average: 2.00 Right Tripod Pinch Percentile: 0th Left Tripod Pinch Average: 2.33 Left Tripod Pinch Percentile: 0th Sensation: 3.61 monofiliment Fine Motor: 9 hold peg R hand Trial 1 - 36.6 Trial 2 - 30.6 Trial 3 - 34 Average - 33.7 0th percentile 9 hold peg L hand Trial 1 - 32 Trial 2 - 32 Trial 3 - 30 Average 31.3 0th Percentile Balance: Pt does have a standard walker but does not use at baseline; pt has had 5-6 falls in the past 6 months 9 - pt is at a moderate risk for falls Non Material Handling Activities Bending: Pt unable to bend safely to the floor; pt becomes tearful d/t fear of falling; 0/3 trials completed; test not pursued further HR - 107 SPO2 - 97 Squatting: Pt unable to squat safely [facility]; pt becomes tearful d/t fear of falling; 0/3 trials completed; test not pursued further Kneeling: Pt unable to kneel safely [facility]; pt becomes tearful d/t fear of falling; 0/3 trials completed; test not pursued further Reaching out/up: Reaching Up- Trial of 3 - 3/3 10 x at own pace - able to complete 10/10 HR 98; SPO2 - 96 10 x fast - able to complete 6/10 without increased speed and with decreased range of motion HR 104; SPO2 - 97 Reaching Out - Trial of 3 - 3/3 10 x at own pace - able to complete 8/10 HR 104; SPO2 95 10 x fast - unable to complete with increased speed - 0/10; pt declines d/t pain; Walking: Pt able to ambulate 383 ft without AD with increased time and increased pain, no losses of balance noted HR - 120 SPO2 - 97 Standing: Pt able to stand ~5 minutes before needing a rest break; pt did take frequent seated breaks during course of evaluation. Sitting: Pt able to sit at least 30 minutes without changing positions during evaluation Climbing Stairs: Pt able to climb 6 stairs with use of bilateral handrail, increased time, step-2 gait pattern, and no losses of balance HR: 107 SPO2: 96 Dynamic Occasional Lifting Capacity Floor Lift: Pt unable to complete floor lift with 15 lb box; able to bring box to waist with difficulty and pain; unable to lift box onto counter HR - 115 SPO2 - 96 Knee Lift: Pt unable to complete floor lift with 15 lb box; able to bring box to waist with difficulty and pain; unable to lift box onto counter HR - 105 SPO2 - 97 Waist Lift: Pt able to complete waist lift with 15 lb box, increased time, difficulty, and pain; unable to lift any additional weight d/t pain HR - 113 SPO2 - 97 Shoulder Lift: Pt unable to complete shoulder lift with 15 lb box; able to bring box off the counter ~6 inches with difficulty and pain HR - 110 SPO2 - 97 Overhead Lift: Pt unable to complete overhead lift with 15 lb box; able to bring box off the counter ~6 inches with difficulty and pain HR - 110 SPO2 - 97 Carrying: Pt able to ambulate ~9 feet while carrying 15 lb box; pt does not feel safe to continue d/t fall risk/pain/weakness/fall history. HR- 112 SPO2 - 96
== END 2024-12-21 19:00 | disposition home or self-care (01) ==
LOC: OT 12:43
PROVIDERS: PCP Registered Nurse; Referring Provider Registered Nurse
DX: G90.50 Complex regional pain syndrome I, unspecified (principal)
CPT/HCPCS: 97750

== ENCOUNTER 2024-12-23 11:49 | Emergency (ER) | payer MEDICAID, SELFPAY ==
[2024-12-23 11:50] VITALS: BP 194/100; PULSE 105; RESP 18; TEMP 36.7; O2SAT 99; BMI 31.3
--- NOTE | 2024-12-23 12:11 | EX.ED.DYSGE1 ---
HPI History of Present Illness Chief Complaint: Allergic Reaction Detail of Chief Complaint: Possible allergic reaction to medication Informant: patient Narrative Narrative: Patient presents to the emergency department with concern for possible allergic reaction to medication. Patient states that she started lamotrigine a week and a half ago prescribed by her psychiatrist. Patient few days later started having discomfort to her tongue and a burning sensation in her groin. She complains of headache and bodyaches. She called her primary care physician today and was told to come to the emergency department to be evaluated for Romero-Sim syndrome related to the lamotrigine. She denies any fevers. She just does not feel well. [facility] Medical History Osteoarthritis of left knee Left knee pain Osteoarthritis of right knee Contusion of right chest wall Contusion of right shoulder Contusion of forehead History of diabetes mellitus PTSD (post-traumatic stress disorder) Wears glasses Marijuana use Diabetes Arthritis Easy bruising High cholesterol Restless legs Injury of head and neck Difficulty swallowing Gastric reflux Non-smoker History of stress test History of echocardiogram Cardiology follow-up encounter SACHA (generalized anxiety disorder) Strain of right hip History of colon polyps Acute otitis externa of left ear Acute sinusitis, unspecified TIA (transient ischemic attack) Episode of syncope Urinary tract infection with hematuria Contusion of right ankle Contusion of right foot GI bleed Positive PPD, treated Pneumonia Bronchitis Statin intolerance Dyspnea on exertion Chest pain Near syncope Orthostatic hypotension Hyperlipidemia GERD (gastroesophageal reflux disease) RSD (reflex sympathetic dystrophy) Essential hypertension Diabetes mellitus type II, controlled Strain of unspecified muscle, fascia and tendon at shoulder and upper arm level, right arm, initial encounter Asthma Shoulder pain Hemorrhoids Nausea & vomiting Depressed Asthma Home Medications ?Medication ?Instructions ?Recorded ?Last Taken ?Type ezetimibe 10 mg tablet 10 mg PO DAILY CHOLESTEROL #90 tabs 04/19/21 Unknown Rx diphenhydramine HCl 25 mg capsule 25 mg PO DAILY PRN allergy symptoms 03/28/22 Unknown History duloxetine 60 mg capsule,delayed 120 mg (2 x 60 mg) PO DAILY 10/15/22 Unknown Rx release ANXIETY 30 days #60 caps albuterol sulfate 90 mcg/actuation 2 puff inhalation Q4H PRN PRN 01/04/23 Unknown Rx aerosol inhaler (Ventolin HFA) Wheezing or shortness of breath #1 inh pen needle, diabetic 32 gauge x #100 ea 03/05/23 Unknown Rx 532 (BD Ultra-Fine Thais Pen Needle) alcohol swabs 1 pad topical 4X/DAY #200 ea 04/28/23 Unknown Rx ondansetron 4 mg disintegrating 4 mg PO Q6H PRN nausea and 04/28/23 Unknown Rx tablet vomiting #10 tabs meclizine 25 mg tablet 25 mg PO TID PRN dizziness #30 tabs 05/23/23 Unknown Rx allopurinol 100 mg tablet 100 mg PO DAILY 06/18/23 Unknown History pen needle, diabetic 32 gauge x #100 ea 10/23/23 Unknown Rx 32 (BD Ultra-Fine Thais Pen Needle) lorazepam 1 mg tablet 0.5 mg (1/2 x 1 mg) PO DAILY PRN 12/03/23 Unknown Rx Anxiety #30 tabs ibuprofen 800 mg tablet 800 mg PO DAILY 12/24/23 Unknown History insulin aspart U-100 100 unit/mL 18 sliding scale dose subcut TID 12/24/23 Unknown History (3 mL) subcutaneous pen (Novolog FlexPen U-100 Insulin aspart) hydroxyzine HCl 25 mg tablet 25 mg PO DAILY PRN anxiety 02/29/24 Unknown History colchicine 0.6 mg capsule 0.6 mg PO QDAY PRN Gout 04/21/24 Unknown History furosemide 20 mg tablet 20 mg PO QDAY 04/21/24 Unknown History losartan 100 mg tablet 100 mg PO QDAY 04/21/24 Unknown History omega-3 acid ethyl esters 1 gram 1 cap PO BID #180 caps 04/26/24 Unknown Rx capsule flash glucose sensor (FreeStyle #2 ea 06/21/24 Unknown Rx Tanmay 2 Sensor kit) cholecalciferol (vitamin D3) 50 50 mcg PO QDAY #90 caps 07/19/24 Unknown Rx mcg (2,000 unit) capsule omeprazole 20 mg capsule,delayed 40 mg PO DAILY GERD 07/19/24 Unknown History release insulin glargine 100 unit/mL (3 30 unit (0.3 mL) subcut QAM #27 mL 08/02/24 Unknown Rx mL) subcutaneous pen (Basaglar KwikPen U-100 Insulin) brexpiprazole 0.5 mg tablet 0.5 mg PO QDAY 10/18/24 Unknown History (Rexulti) dicyclomine 10 mg capsule 10 mg PO TID PRN abdominal pain 7 04/06/25 Unknown Rx days #21 caps metoclopramide HCl 10 mg tablet 10 mg PO Q6H PRN nausea and 11/07/24 Unknown Rx (Reglan) vomiting 5 days #20 tabs zinc acetate 25 mg (zinc) capsule 25 mg PO DAILY 11/07/24 Unknown History (Galzin) dulaglutide 3 mg/0.5 mL 3 mg (0.5 mL) subcut QWEEK #2 mL 11/19/24 Unknown Rx subcutaneous pen injector (Trulicity) fluconazole 100 mg tablet 100 mg PO DAILY #2 tabs 12/23/24 Unknown Rx (Diflucan) Allergy/AdvReac Type Severity Reaction Status Date / Time clindamycin Allergy Mild Rash Verified 12/23/24 11:53 adalimumab (From Humira) Allergy Unknown Verified 12/23/24 11:53 amoxicillin trihydrate (From Allergy Unknown Verified 12/23/24 11:53 Augmentin) codeine Allergy Itching Verified 12/23/24 11:53 etanercept (From Enbrel) Allergy Unknown Verified 12/23/24 11:53 leflunomide (From Arava) Allergy Other Verified 12/23/24 11:53 metoprolol tartrate (From Allergy Unknown Verified 12/23/24 11:53 Lopressor) morphine sulfate (From Allergy Unknown Verified 12/23/24 11:53 Embeda) naltrexone HCl (From Embeda) Allergy Unknown Verified 12/23/24 11:53 oxymorphone (Oxymorphone) Allergy Unknown Verified 12/23/24 11:53 pioglitazone HCl (From Actos) Allergy Other Verified 12/23/24 11:53 pneumococcal 23-valent Allergy Unknown Verified 12/23/24 11:53 polysacchari (From Pneumovax 23) potassium clavulanate (From Allergy Unknown Verified 12/23/24 11:53 Augmentin) Ctyxehw-MTT-CgK Reductase Allergy Unknown Verified 12/23/24 11:53 Inhibitor (Gidoxoy-Jiy-Fis Reductase Inhibitor) Sulfa (Sulfonamide Allergy Anaphylaxis Verified 12/23/24 11:53 Antibiotics) sulfamethoxazole (From Allergy Anaphylaxis Verified 12/23/24 11:53 Bactrim) telithromycin (From Ketek) Allergy Unknown Verified 12/23/24 11:53 tramadol HCl (From Ultram) Allergy Unknown Verified 12/23/24 11:53 trimethoprim (From Bactrim) Allergy Anaphylaxis Verified 12/23/24 11:53 Family History Father Diabetes Hypertension Mother Diabetes Hypertension Colon polyp Other Cancer Surgical History History of arthroscopy of right knee History of hysterectomy History of appendectomy History of colonoscopy Hx of shoulder surgery Social History household members: none Smoking Status: Never smoker alcohol intake: current alcohol intake frequency: 0-2 drinks per day Alcohol type: hard liquor substance use type: other details: Gummies ROS ROS ED Review of Systems ROS Unobtainable: other Constitutional Constitutional ED: Reports lethargy; Denies chills, fever(s), sweats or weight loss Eyes Eyes: Denies blurry vision, change in vision or diplopia ENT ENT ED: Reports other Details: Burning sensation to tongue ; Denies rhinorrhea or sore throat Cardiovascular Cardiovascular: Denies chest pain, orthopnea or racing heartbeat Respiratory/Chest Respiratory/Chest: Reports dyspnea on exertion; Denies cough, dyspnea, orthopnea or sputum Gastrointestinal Gastrointestinal: Denies abdominal pain, diarrhea, nausea or vomiting Genitourinary Genitourinary ED: Reports other Details: Burning sensation to groin and vaginal area ; Denies dysuria, hematuria or urinary frequency Musculoskeletal Musculoskeletal: Denies arthralgias, back pain, myalgias or neck pain Integumentary Denies abscess, Abrasions or rash Neurologic Neurologic: Reports headache(s); Denies weakness Psychiatric Psychiatric: Denies anxiety, depression or suicidal thoughts Endocrine Endocrinology: Denies polydipsia, polyphagia or polyuria Hematologic/Lymphatic Hematologic/Lymphatic: Denies easy bleeding, easy bruising or lymphadenopathy Allergic/Immunologic Allergic/Immunologic ED: Denies mouth swelling, tongue swelling or urticaria EXAM Physical Exam Const Vital Signs: 12/23/24 11:50 12/23/24 13:50 Temperature 98.1 F Temperature Source Oral Pulse Rate 105 H 88 Respiratory Rate 18 14 Blood Pressure 194/100 H 182/102 H Blood Pressure Mean 131 128 Pulse Ox 99 98 Oxygen Delivery Method Room Air Room Air Positive well nourished and well developed General Appearance ED: well developed and NAD HEENT Reports TM's clear and moist mucous membranes HEENT Narrative: Evaluation of the tongue does reveal a geographic tongue. I do not see any lesions to her buccal mucosa or oropharynx. Do not see any vesicles or ulcerations to her lips. normocephalic and atraumatic; Negative for trauma or tenderness Tympanic Membrane ED: Yes TM's clear Eyes PERRL and EOMs intact bilaterally General Eye ED: Negative for pale conjunctiva or scleral icterus Neck no lymphadenopathy, supple and no JVD General: Negative for tenderness Chest Wall inspection of chest normal and palpation of chest normal Chest: Negative for tenderness Resp normal respiratory effort and clear to auscultation bilaterally Effort and Inspection: Negative for respiratory distress or pain with movement Auscultation: Negative for rhonchi, wheezes or diminished lung sounds Cardio regular rate, regular rhythm, S1 normal heart sound, S2 normal heart sound and no murmurs Peripheral Pulses: pulses 2+ throughout GI normal to inspection, nondistended, normoactive bowel sounds, soft to palpation, non-tender, non-distended and no masses Narrative: Vaginal exam performed. She had some mild erythema of the vaginal mucosa but no excoriated lesions noted. No vaginal discharge noted. Back/Spine no CVA tenderness and no thoracic nor lumbar tenderness Extremity normal to inspection General Extremety ED: Negative for edema General Extremity: Negative for edema Neuro oriented x3, CN's II-XII intact bilaterally, no sensory deficits noted and gait normal Sensorium / Orientation: awake, alert, oriented to person, oriented to place and oriented to time Motor Exam: strength 5/5 throughout and strength abnormal Psych mental status grossly normal Skin no rashes or lesions noted and no wounds MDM MDM MDM Narrative Medical decision making narrative: Patient presents to the emergency department with concern for possible Romero-Sim syndrome related to lamotrigine use. She was instructed by her prescriber of lamotrigine to discontinue it right away. Patient has no rash on arrival. She has a geographic tongue noted but no skin ulcerations and no evidence of mucosal involvement of the mouth or the vagina. IV line established. She was given a liter # fluid bolus. CBC with differential obtained showed white count 8.1 with hemoglobin 16 and platelet count of 347. Chemistries unremarkable other than a depressed potassium at 3.1. Her glucose was elevated at 299. Anion gap was elevated at 18 however I do not feel she is in DKA. She is a type II diabetic. Sed rate was normal at 29 and C-reactive protein was elevated at 13.6. Urinalysis was normal. This point etiology of her symptoms unclear. Clinically I do not feel she has Romero-Sim syndrome. She is a known type II diabetic. The burning sensation in her vagina may be related to a yeast infection and we will treat her with Diflucan. Advised pushing fluids. She will discontinue lamotrigine. Advised to return if rash, oral lesions or mucosal lesions otherwise or condition should worsen the way. Advised to follow-up with primary care physician within next 5 to 7 days. Lab Data Attestation: I reviewed the patient's lab results. Labs: Laboratory Results - last 24 hr 12/23/24 12/23/24 12/23/24 12:30 12:38 14:00 WBC 8.1 RBC 5.35 Hgb 16.1 H Hct 48.1 H MCV 89.9 MCH 30.1 MCHC 33.5 RDW Std Deviation 42.2 RDW Coeff of Daiana 13.1 Plt Count 347 MPV 9.0 Immature Gran % (Auto) 0.200 Neut % (Auto) 63.3 Lymph % (Auto) 25.8 Meade % (Auto) 8.2 Eos % (Auto) 1.6 Baso % (Auto) 0.9 Absolute Neuts (auto) 5.1 Absolute Lymphs (auto) 2.10 Nucleated RBC % 0 ESR 29 Sodium 135 Potassium 3.1 L Chloride 101 Carbon Dioxide 16.7 L Anion Gap 18 H BUN 8 Creatinine 0.68 L Estim Creat Clear Calc 107.84 Est GFR (MDRD) Non-Af 101 BUN/Creatinine Ratio 11.5 Glucose 299 H Calcium 8.6 Total Bilirubin 0.37 AST 121 H ALT 95 H Alkaline Phosphatase 154 H C-React Prot Ext Range 13.60 H Total Protein 7.3 Albumin 4.1 Globulin 3.2 Albumin/Globulin Ratio 1.3 Urine Color Yellow Urine Clarity Sl. Cloudy Urine pH 7.0 Ur Specific Baldwin 1.010 Urine Protein 30 H Urine Glucose (UA) 1000 H Urine Ketones 5 H Urine Occult Blood 10 H Urine Nitrite Negative Urine Bilirubin Negative Urine Urobilinogen Normal Ur Leukocyte Esterase 25 H Urine RBC 0 SEEN Urine WBC 0-5 SEEN Ur Squamous Epith Cells 0-5 SEEN Urine Bacteria 1+ Urine Mucus 0 SEEN Discharge Plan Triage Chief Complaint: Allergic Reaction ED Provider: Gorge Hoffman Dx/Rx/DC Orders Clinical Impression: Adverse drug reaction Instructions: ED ADVERSE DRUG REACTION Allergic Prescriptions: New fluconazole [Diflucan] 100 mg tablet 100 mg PO DAILY Qty: 2 0RF No Action duloxetine 60 mg capsule,delayed release(DR/EC) 120 mg PO DAILY 30 Days Qty: 60 2RF alcohol swabs Pads, Medicated 1 pad topical 4X/DAY Qty: 200 5RF allopurinol 100 mg tablet 100 mg PO DAILY insulin aspart U-100 [Novolog FlexPen U-100 Insulin] 100 unit/mL (3 mL) insulin pen 18 sliding scale dose subcut TID ibuprofen 800 mg tablet 800 mg PO DAILY furosemide 20 mg tablet 20 mg PO QDAY losartan 100 mg tablet 100 mg PO QDAY colchicine 0.6 mg capsule 0.6 mg PO QDAY PRN (Reason: Gout) cholecalciferol (vitamin D3) 50 mcg (2,000 unit) capsule 50 mcg PO QDAY Qty: 90 1RF Rexulti 0.5 mg tablet 0.5 mg PO QDAY omeprazole 20 mg capsule,delayed release(DR/EC) 40 mg PO DAILY Patient Comments: gastric reflux diphenhydramine HCl 25 mg capsule 25 mg PO DAILY PRN (Reason: allergy symptoms) ondansetron 4 mg tablet,disintegrating 4 mg PO Q6H PRN (Reason: nausea and vomiting) Qty: 10 0RF albuterol sulfate [Ventolin HFA] 90 mcg/actuation HFA aerosol inhaler 2 puff inhalation Q4H PRN PRN (Reason: Wheezing or shortness of breath) Qty: 1 0RF meclizine 25 mg tablet 25 mg PO TID PRN (Reason: dizziness) Qty: 30 0RF hydroxyzine HCl 25 mg tablet 25 mg PO DAILY PRN Galzin 25 mg (zinc) capsule 25 mg PO DAILY dicyclomine 10 mg capsule 10 mg PO TID PRN (Reason: abdominal pain) 7 Days Qty: 21 0RF metoclopramide HCl [Reglan] 10 mg tablet 10 mg PO Q6H PRN (Reason: nausea and vomiting) 5 Days Qty: 20 0RF ezetimibe 10 mg tablet 10 mg PO DAILY Qty: 90 3RF (DME) pen needle, diabetic [BD Ultra-Fine Thais Pen Needle] 32 gauge x 5/32 needle See Rx Instructions .Route Qty: 100 5RF Rx Instructions: daily (DME) pen needle, diabetic [BD Ultra-Fine Thais Pen Needle] 32 gauge x 5/32 needle See Rx Instructions .Route Qty: 100 5RF Rx Instructions: 4x/day lorazepam 1 mg tablet 0.5 mg PO DAILY PRN (Reason: Anxiety) Qty: 30 1RF omega-3 acid ethyl esters 1 gram capsule 1 cap PO BID Qty: 180 1RF (DME) FreeStyle Tanmay 2 Sensor Kit See Rx Instructions .Route Qty: 2 5RF Rx Instructions: 1 sensor q 14 days insulin glargine [Basaglar KwikPen U-100 Insulin] 100 unit/mL (3 mL) insulin pen 30 unit subcut QAM Qty: 27 1RF Trulicity 3 mg/0.5 mL pen injector 3 mg subcut QWEEK Qty: 2 3RF Primary Care Provider: Chantale Palm NP Referrals: Chantale Palm NP, [employer] [Primary Care Provider] - 3-5 Days Print Language: [place] Disposition Disposition: Home, Self Care
[2024-12-23] MEDS: 0.9% Normal Saline (1000mL) 1,000 ML 999 ML IV (13:01)
[2024-12-23] MEDS: Ketorolac 15 MG/ML Vial IV (13:01)
[2024-12-23 13:17] LABS: Absolute Neutrophil Count 5.1 X10^3/uL (2.0-7.7); Basophil# 0.07 X10^3/uL; Basophil% 0.9 % (0-1); Eosinophil# 0.13 X10^3/uL; Eosinophils% 1.6 % (0-5); Erythrocyte Sedimentation Rate 29 mm/hr (0-30); Hematocrit 48.1 % (37-47); Hemoglobin 16.1 g/dL (12.0-15.0); Lymphocyte % 25.8 % (19-41); Mean Corp Hgb Conc 33.5 g/dL (32-36); Mean Corpuscular Hgb 30.1 pg (27.0-32.0); Mean Corpuscular Volume 89.9 fL (81-99); Monocyte# 0.67 X10^3/uL; Monocyte% 8.2 % (0-10); NRBC Flagged by Analyzer 0 % (0-5); Neutrophil # 5.14 X10^3/uL (2.7-7.7); Neutrophil % 63.3 % (47-70); Platelet Count 347 K/mm3 (150-450); RBC Distribution Width CV 13.1 % (11.6-14.6); RBC Distribution Width SD 42.2 fl (35.1-43.9); Red Blood Count 5.35 M/mm3 (4.2-5.4); White Blood Count 8.1 K/mm3 (4.4-11.0)
[2024-12-23 13:45] LABS: ALB/GLOB Ratio 1.3 RATIO (0.9-2.4); AST(SGOT) 121 U/L (<=31); Alanine Aminotransfer ALT/SGPT 95 U/L (<=34); Albumin, Serum 4.1 g/dL (3.5-5.0); Alkaline Phosphatase 154 U/L (35-104); Anion Gap 18 (5-15); BUN 8 mg/dL (4-19); BUN/Creat Ratio 11.5 RATIO (10-20); Calcium,Total 8.6 mg/dL (7.6-11.0); Carbon Dioxide 16.7 mmol/L (21.0-32.0); Chloride 101 mmol/L (98-108); Creatinine, Serum 0.68 mg/dL (0.70-1.20); EST Glomerular Filtration Rate 101 (>60); Estimated Creatinine Clearance 107.84 ml/min (50-250); Globulin 3.2 g/dL (2.2-4.2); Glucose 299 mg/dL (70-99); Potassium 3.1 mmol/L (3.3-5.1); Protein, Total 7.3 g/dL (5.9-8.4); Sodium Level 135 mmol/L (133-145); Total Bilirubin 0.37 mg/dL (0.00-1.30)
[2024-12-23 13:50] VITALS: BP 182/102; PULSE 88; RESP 14; O2SAT 98
[2024-12-23] MEDS: Potassium Chloride Oral Tablet 20 MEQ 40 MEQ PO (14:00)
[2024-12-23 14:08] LABS: Mucous, Urine 0 SEEN /hpf (<or=2+); Red Blood Cells-Urine 0 SEEN /hpf (0-5)
[2024-12-23 14:14] LABS: Color, Urine Yellow (Yellow); Glucose, Dipstick 1000 mg/dl (Normal); Ketone-Dipstick 5 mg/dl (Negative); Leukocyte Esterase-Dipstick 25 /ul (Negative); Nitrite-Dipstick Negative (Negative); Occult Blood-Urine 10 /ul (Negative); Protein-Dipstick 30 mg/dl (Negative); Urine Bilirubin Dipstick Negative (Negative); Urine Clarity Sl. Cloudy (Clear); Urine Urobilinogen Normal (Normal)
[2024-12-23 14:21] LABS: Bacteria 1+ /hpf (None Seen); Squamous Epithelial Cells - UA 0-5 SEEN /hpf (5-10); White Blood Cells 0-5 SEEN /hpf (0-5)
[2024-12-23 14:44] VITALS: BP 174/94; PULSE 86; RESP 16; TEMP 36.6; O2SAT 98
== END 2024-12-23 14:45 | disposition home or self-care (01) ==
PROVIDERS: Emergency Provider Emergency Medicine; PCP Registered Nurse; Visit Provider Emergency Medicine
DX: K14.1 Geographic tongue (principal); E11.9 Type 2 diabetes mellitus without complications; Z79.4 Long term (current) use of insulin; N89.8 Other specified noninflammatory disorders of vagina; T42.6X5A Adverse effect of other antiepileptic and sedative-hypnotic drugs, initial encounter; F43.10 Post-traumatic stress disorder, unspecified; K21.9 Gastro-esophageal reflux disease without esophagitis; E78.00 Pure hypercholesterolemia, unspecified; J45.909 Unspecified asthma, uncomplicated; Z86.73 Personal history of transient ischemic attack (TIA), and cerebral infarction without residual deficits; Z79.85 Long-term (current) use of injectable non-insulin antidiabetic drugs; Z79.899 Other long term (current) drug therapy
CPT/HCPCS: 80053; 81001; 85025; 85652; 86140; 87631; 96361; 96374; 99283; A4216

== ENCOUNTER → 2025-01-07 | Outpatient (CLI) | payer MEDICAID, SELFPAY ==
[2025-01-07 11:06] LABS: Absolute Lymphocyte Count 3.11 X10^3/uL (0.83-4.51); Absolute Neutrophil Count 4.8 X10^3/uL (2.0-7.7); Basophil# 0.06 X10^3/uL; Basophil% 0.7 % (0-1); Eosinophil# 0.19 X10^3/uL; Eosinophils% 2.2 % (0-5); Hematocrit 49.2 % (37-47); Hemoglobin 16.5 g/dL (12.0-15.0); Lymphocyte # 3.11 X10^3/ul (0.83-4.51); Lymphocyte % 35.3 % (19-41); Mean Corp Hgb Conc 33.5 g/dL (32-36); Mean Corpuscular Hgb 30.2 pg (27.0-32.0); Mean Corpuscular Volume 89.9 fL (81-99); Mean Platelet Vol. 8.9 fl (6.2-12.0); Monocyte# 0.59 X10^3/uL; Monocyte% 6.7 % (0-10); NRBC Flagged by Analyzer 0 % (0-5); Neutrophil # 4.84 X10^3/uL (2.7-7.7); Neutrophil % 54.9 % (47-70); Platelet Count 345 K/mm3 (150-450); RBC Distribution Width CV 13.5 % (11.6-14.6); RBC Distribution Width SD 44.9 fl (35.1-43.9); Red Blood Count 5.47 M/mm3 (4.2-5.4); White Blood Count 8.8 K/mm3 (4.4-11.0)
[2025-01-07 12:53] LABS: Anion Gap 15 (5-15); BUN 9 mg/dL (4-19); BUN/Creat Ratio 11.7 RATIO (10-20); Calcium,Total 9.3 mg/dL (7.6-11.0); Carbon Dioxide 21.1 mmol/L (21.0-32.0); Chloride 99 mmol/L (98-108); Creatinine, Serum 0.74 mg/dL (0.70-1.20); EST Glomerular Filtration Rate 93 (>60); Glucose 284 mg/dL (70-99); Potassium 3.9 mmol/L (3.3-5.1); Pro- Brain NATRIURETIC PEPTIDE < 36 pg/mL (<=900); Sodium Level 136 mmol/L (133-145)
== END | disposition home or self-care (01) ==
LOC: LAB 10:39
PROVIDERS: PCP Registered Nurse; Referring Provider Nurse Practitioner Gerontology; Visit Provider Nurse Practitioner Gerontology
DX: R06.02 Shortness of breath (principal); R53.83 Other fatigue
CPT/HCPCS: 36415; 80048; 83880; 84443; 85025

== ENCOUNTER → 2025-01-13 | Outpatient (CLI) | payer MEDICAID, SELFPAY | END | disposition home or self-care (01) | LOC: PSN 11:59 | PROVIDERS: PCP Registered Nurse; Referring Provider Nurse Practitioner Gerontology; Visit Provider Nurse Practitioner Gerontology | DX: R00.2 Palpitations (principal) | CPT/HCPCS: 93225; 93226 ==

== ENCOUNTER → 2025-01-31 | Outpatient (CLI) | payer MEDICAID, SELFPAY ==
--- NOTE | 2025-01-31 12:42 | ECHOCS_ITS ---
Reason For Study Reason For Study: Dyspnea/SOB Procedure This was a 2D Doppler, Color Flow transthoracic echocardiogram. The study was technically difficult. Contrast injection was performed. Exam performed in department. Left Ventricle Normal LV size. Left ventricular systolic function is normal. The left ventricular ejection fraction is 60 %. No regional wall motion abnormalities noted. Right Ventricle Normal RV size. Normal systolic function. Atria Normal left atrium. Normal right atrium. Mitral Valve Normal mitral valve. Tricuspid Valve Normal tricuspid valve. Aortic Valve Normal aortic valve. Pulmonic Valve Normal pulmonic valve. Great Vessels Normal aortic root. The pulmonary artery is normal size. Inferior vena cava collapse with respiration. Pericardium/Pleural No pericardial effusion. Medication Diluted definity 1ml given slow IV push to enhance endocardial definition. MMode/2D Measurements & Calculations LVIDd: 4.2 cm IVSd: 1.1 cm Ao root diam: 3.2 cm LVIDs: 2.7 cm LVPWd: 1.2 cm RVDd: 3.2 cm FS: 35.0 % LAV(MOD-bp): 36.0 ml LVAd ap4: 27.5 cm2 SV(MOD-sp4): 44.9 ml LAV(MOD-bp) Indexed: 17.4 ml/m2 LVLd ap4: 8.0 cm SI(MOD-sp4): 21.7 ml/m2 LAV(MOD-sp2): 40.6 ml EDV(MOD-sp4): 77.4 ml LAV(MOD-sp4): 32.1 ml EDV(sp4-el): 80.3 ml LVAs ap4: 16.2 cm2 LVLs ap4: 6.8 cm ESV(MOD-sp4): 32.5 ml ESV(sp4-el): 33.0 ml EF(MOD-sp4): 58.1 % EF(sp4-el): 58.9 % SV(sp4-el): 47.3 ml LA A4 area: 14.1 cm2 LA dimension(2D): 4.1 cm RA A4 area: 11.3 cm2 Time Measurements MV dec time: 0.19 sec Doppler Measurements & Calculations MV E max jordan: 65.3 cm/sec Lat Peak E' Jordan: 8.9 cm/sec Med Peak E' Jordan: 8.5 cm/sec MV A max jordan: 66.1 cm/sec E/E' lat: 7.3 E/E' med: 7.7 MV E/A: 0.99 MV V2 max: 87.4 cm/sec MV P1/2t max jordan: 84.1 cm/sec Ao V2 max: 128.5 cm/sec MV max P.1 mmHg MV P1/2t: 68.7 msec Ao max P.6 mmHg MV V2 mean: 49.0 cm/sec MV dec slope: 358.5 cm/sec2 Ao V2 mean: 98.6 cm/sec MV mean P.1 mmHg MVA(P1/2t): 3.2 cm2 Ao mean P.2 mmHg MV V2 VTI: 22.5 cm Ao V2 VTI: 27.7 cm AV (velocity ratio): 0.87 LV V1 max: 113.3 cm/sec PA V2 max: 117.2 cm/sec LV V1 max P.1 mmHg PA V2 mean: 83.8 cm/sec LV V1 mean P.0 mmHg LV V1 mean: 81.3 cm/sec LV V1 VTI: 24.0 cm ECHO/Echo Complete W/ Contrast Interpretation Summary Normal LV size. Left ventricular systolic function is normal. The left ventricular ejection fraction is 60 %. Contrast injection was performed. Structurally normal valves. Ordering Physician: Ame Eastman Referring Physician: Ame Eastman Performed By: Bert Johnson RCS
--- OUTSIDE RECORDS SUMMARY | 2025-01-31 23:22 | XMS RPT_ITS | CCD ---
Author Organization [facility] Care Team Providers Care Collection Systems Worker Name Role Phone NERY Unger RN, Rita Guadalupe Unavailable Unavailjohnny Unger RN RN, Rita Guadalupe Unavailable Unavailabl kailash Pena MD, Miguel Osorio Unavailable Nena Villar Unavailable Unavailable PROVIDER, UNKNOWN Unavailable Unavailable No, PCP Unavailable Unavailable PROVIDER, UNKNOWN Unavailable Unavailable No, PCP Unavailable Unavailable Nena Villar Unavailable Unavailable NERY Unger RN, Rita Guadalupe Unavailable UnavailKarl Tapia MD Primary Care Provider [phone] Dr. Karl Pichardo Primary Care Provider [phone] Karl Pichardo Referring Provider [phone] CHEPE Greene Attending Provider CHEPE Wang Attending Provider Karl Pichardo MD Primary Care Provider [phone] Dr. Maru Fry Attending Provider Dr. Karl Pichardo Primary Care Provider [phone] Karl Pichardo Referring Provider CHEPE Greene Attending Provider CHEPE Wang Attending Provider Dr. Maru Fry Attending Provider [phone] MD Maru Fry Primary Care Provider Unavail able MD Maru Fry Referring Provider Unavailabl e BRAULIO SUMMER COUNSELOR-DESIGN VERIFICATION ENGINEER, CHANTALE A [facility] PT, Rosa Unavailable Unavailable KARL PICHARDO Primary Care Unavailable ANDRY DUNNE Referring Unavailable ANDRY DUNNE Attending Unavailable KYLEE, KARL PERSAUD Primary Care Unavailable SCHICKENDANTZ, SAM Referring Unavailable SCHICKENDANTZ, SAM Attending Unavailable SCHICKENDANTZ, SAM Referring Unavailable SCHICKENDANTZ, SAM Attending Unavailable KYLEE, KARL PERSAUD Primary Care Unavailable RODOLFO BISHOP Attending Unavailable SCHICKENDANTZ, SAM Referring Unavailable KYLEE, KARL PERSAUD Primary Care Unavailable REJI SHEPARD Attending Unavailable MARU FRY Primary Care Unavailable SLOAN MUJICA Admitting Unavailable ERIC, SLOAN Attending Unavailable REJI SHEPARD Referring Unavailable ALEXANDREA HOLLIDAY Consulting Unavailable BRAULIO SUMMER COUNSELOR-DESIGN VERIFICATION ENGINEER, CHANTALE A Attending Un available BRAULIO SUMMER COUNSELOR-DESIGN VERIFICATION ENGINEER, CHANTALE A Primary Care Un available BRAULIO SUMMER COUNSELOR-DESIGN VERIFICATION ENGINEER, CHANTALE A Attending Un available BRAULIO SUMMER COUNSELOR-DESIGN VERIFICATION ENGINEER, CHANTALE A Primary Care Un available HUNG MATA MD Attending Unavailable BRAULIO SUMMER COUNSELOR-DESIGN VERIFICATION ENGINEER, CHANTALE A Primary Care Un available WALL SUMMER COUNSELOR-DESIGN VERIFICATION ENGINEER, PIPER Melendez Attending Clydevai lable BRAULIO SUMMER COUNSELOR-DESIGN VERIFICATION ENGINEER, CHANTALE A Primary Care Un available BRAULIO SUMMER COUNSELOR-DESIGN VERIFICATION ENGINEER, CHANTALE A Attending Un available BRAULIO SUMMER COUNSELOR-DESIGN VERIFICATION ENGINEER, CHANTALE A Primary Care Un available BRAULIO SUMMER COUNSELOR-DESIGN VERIFICATION ENGINEER, CHANTALE A Attending Un available BRAULIO SUMMER COUNSELOR-DESIGN VERIFICATION ENGINEER, CHANTALE A Primary Care Un available BRAULIO SUMMER COUNSELOR-DESIGN VERIFICATION ENGINEER, CHANTALE A Attending Un available BRAULIO SUMMER COUNSELOR-DESIGN VERIFICATION ENGINEER, CHANTALE A Primary Care Un available BRAULIO SUMMER COUNSELOR-DESIGN VERIFICATION ENGINEER, CHANTALE A Attending Un available BRAULIO SUMMER COUNSELOR-DESIGN VERIFICATION ENGINEER, CHANTALE A Primary Care Un available VACCARELLI PA-C, MANUEL Attending Unavailab le BRAULIO SUMMER COUNSELOR-DESIGN VERIFICATION ENGINEER, CHANTALE A Primary Care Un available BRAULIO SUMMER COUNSELOR-DESIGN VERIFICATION ENGINEER, CHANTALE A Attending Un available BRAULIO SUMMER COUNSELOR-DESIGN VERIFICATION ENGINEER, CHANTALE A Primary Care Un available BRAULIO SUMMER COUNSELOR-DESIGN VERIFICATION ENGINEER, CHANTALE A Attending Un available BRAULIO SUMMER COUNSELOR-DESIGN VERIFICATION ENGINEER, CHANTALE A Primary Care Un available WALL SUMMER COUNSELOR-DESIGN VERIFICATION ENGINEER, PIPER Melendez Attending Unavai lable BRAULIO SUMMER COUNSELOR-DESIGN VERIFICATION ENGINEER, CHANTALE A Primary Care Un available ADOLFO MURILLO, HUNG Calvillo Attending Unavailable BRAULIO SUMMER COUNSELOR-DESIGN VERIFICATION ENGINEER, SCHOENCHEN A Primary Care Un available BRAULIO SUMMER COUNSELOR-DESIGN VERIFICATION ENGINEER, CHANTALE A Attending Un available BRAULIO SUMMER COUNSELOR-DESIGN VERIFICATION ENGINEER, SCHOENCHEN A Primary Care Un available Kylee MURILLO, Karl Persaud Primary Care Provider JIMENA MURILLO, JOHAN Attending Unavailable MILTONER SUMMER COUNSELOR-DESIGN VERIFICATION ENGINEER, ROSA Osorio Admitting [facility]availa ble [facility] ROSA HOLGUIN DO Attending Unavailable [facility] Unavailable REFERRING, JEROME ATKINS Attending Unavailable BRAULIO SUMMER COUNSELOR-DESIGN VERIFICATION ENGINEER, SCHOENCHEN A [facility] Un available Braulio MAIL ORDER CLERK, [facility] Unavailabl Gorge Fry Attending Unavailable Braulio MAIL ORDER CLERK, [facility] Unavailabl Andry Washington Attending Unavailable Roe Corea Attending Unavailable Braulio MAIL ORDER CLERK, [facility] Unavailabl e Sandi Ramírez Referring Unavailable Sandi Ramírez Attending Unavailable Braulio MAIL ORDER CLERK, [facility] Unavailabl e Sandi Ramírez Attending Unavailable Sandi Ramírez Referring Unavailable Braulio MAIL ORDER CLERK, [facility] Unavailabl e Sandi Ramírez Attending Unavailable Braulio MAIL ORDER CLERK, [facility] Unavailabl e Braulio MAIL ORDER CLERK, [place] Referring Unavailabl Sandi Munoz Attending Unavailable Braulio MAIL ORDER CLERK, [place] Referring Unavailabl e Braulio MAIL ORDER CLERK, [facility] Unavailabl Noe Raymundo Referring Unavailable Noe Wang Attending Unavailable Braulio MAIL ORDER CLERK, [facility] Unavailabl Hawk Gallegos Attending Unavailable Braulio MAIL ORDER CLERK, [facility] Unavailabl e Braulio MAIL ORDER CLERK, [place] Referring Unavailabl e Braulio MAIL ORDER CLERK, [place] Attending Unavailabl e Braulio MAIL ORDER CLERK, [facility] UnavailKarl Shay Referring Unavailable Karl Ashton Attending Unavailable Braulio MAIL ORDER CLERK, [facility] Unavailabl Sandi Munoz Attending Unavailable Braulio MAIL ORDER CLERK, [facility] Unavailabl e Braulio MAIL ORDER CLERK, [facility] Unavailabl e Jaren MAIL ORDER CLERK, Ame Attending Unavailable Jaren MAIL ORDER CLERK, Ame Referring Unavailable Jaren MAIL ORDER CLERK, Ame Attending Unavailable Braulio MAIL ORDER CLERK, [facility] Unavailabl e Jaren MAIL ORDER CLERK, Ame Referring Unavailable Jaren MAIL ORDER CLERK, Ame Attending Unavailable Braulio MAIL ORDER CLERK, [facility] Unavailabl e Jaren MAIL ORDER CLERK, Ame Referring Unavailable Sandi Ramírez Attending Unavailable Braulio MAIL ORDER CLERK, [facility] Unavailabl e Braulio MAIL ORDER CLERK, [place] Referring Unavailjohnny e [place], Noe Attending Unavailable Braulio MAIL ORDER CLERK, [facility] Unavailabl e Braulio MAIL ORDER CLERK, [place] Referring Unavailabl e Sandi Ramírez Attending Unavailable Braulio MAIL ORDER CLERK, [facility] Unavailabl e Braulio MAIL ORDER CLERK, [place] Referring Unavailabl e Braulio MAIL ORDER CLERK, [facility] UnavailPATRICK Mckeon Referring Unavailable PATRICK NOGUEIRA Attending Unavailable Sandi Ramírez Referring Unavailable Sandi Ramírez Attending Unavailable Braulio MAIL ORDER CLERK, [facility] Unavailabl e Braulio, Chantale Attending Unavailable Braulio MAIL ORDER CLERK, [place] Referring Unavailabl e Braulio MAIL ORDER CLERK, [facility] UnavailEd[place], Noe Attending Unavailable Braulio MAIL ORDER CLERK, [place] Referring Unavailabl e Braulio MAIL ORDER CLERK, [facility] Unavailabl e Karl Ashton Attending Unavailable Braulio MAIL ORDER CLERK, [place] Referring Unavailabl e Braulio MAIL ORDER CLERK, [facility] Unavailjohnny e Karl Ashton Attending Unavailable Braulio MAIL ORDER CLERK, [place] Referring Unavailabl e Braulio MAIL ORDER CLERK, [facility] Unavailabl e Allie, Simon Attending Unavailable Braulio MAIL ORDER CLERK, [facility] Unavailabl e Braulio MAIL ORDER CLERK, [facility] Unavailabl e Allie, Simon Attending Unavailable Jaren MAIL ORDER CLERK, Ame Referring Unavailable Jaren MAIL ORDER CLERK, Ame Attending Unavailable Braulio MAIL ORDER CLERK, [facility] Unavailabl e Braulio MAIL ORDER CLERK, [place] Referring Unavailabl e Allergies Allergy Classification Reported Allergen(s) Allergy Type Date of Onset Reaction(s) Facility (20 sources) Acetaminophen; Translations: [acetaminophen] Drug Allergy 12-02-19 [address] [facility] Work Phone: Comment on above: hives (9 sources) Acetaminophen / oxyCODONE; Translations: [OXYCODONE-ACETAMIN OPHEN] Drug Allergy 05-11-20 [address] [facility] (20 sources) adalimumab; Translations: [adalimumab] Drug Allergy 01-20-20 13 Other: See Comments [facility] Work Phone: [phone] (20 sources) Codeine; Translations: [codeine] Drug Allergy 05-10-20 [address] [facility] Work Phone: [phone] (20 sources) Etanercept; Translations: [etanercept] Drug Allergy 07-20-20 12 Other: See Comments [facility] Work Phone: [phone] (19 sources) HMG-CoA reductase inhibitor; Translations: [statins] Drug Intolerance 06-15-20 12 Other: See Comments [facility] Work Phone: [phone] (20 sources) leflunomide; Translations: [leflunomide] Drug Allergy 04-28-20 12 Other: See Comments [facility] (20 sources) Methylphenidate; Translations: [methylphenidate] Drug Allergy 12-08-19 15 Other: See Comments [facility] Work Phone: [phone] (14 sources) Metoprolol; Translations: [METOPROLOL TARTRATE] Drug Allergy 05-10-[address] [facility] Work Phone: [phone] (9 sources) Morphine; Translations: [MORPHINE] Drug Allergy 08-24-19 10 Mental Status Change [facility] Work Phone: [phone] (20 sources) Morphine / Naltrexone; Translations: [morphine-naltrexon e] Drug Allergy 07-31-20 [address] [facility] Work Phone: Comment on above: intolerance (20 sources) oxyMORphone; Translations: [oxymorphone] Drug Allergy 12-27-19 11 Mental Status Change [facility] (14 sources) pioglitazone; Translations: [PIOGLITAZONE HCL] Drug Allergy 04-28-20 [address] [facility] Work Phone: (9 sources) Streptococcus pneumoniae type 1 capsular polysaccharide antigen / Streptococcus pneumoniae type 10A capsular polysaccharide antigen / Streptococcus pneumoniae type 11A capsular polysaccharide antigen / Streptococcus pneumoniae type 12F capsular polysaccharide antigen / Streptococcus pneumoniae type 14 capsular polysaccharide antigen / Streptococcus pneumoniae type 15B capsular polysaccharide antigen / Streptococcus pneumoniae type 17F capsular polysaccharide antigen / Streptococcus pneumoniae type 18C capsular polysaccharide antigen / Streptococcus pneumoniae type 19A capsular polysaccharide antigen / Streptococcus pneumoniae type 19F capsular polysaccharide antigen / Streptococcus pneumoniae type 2 capsular polysaccharide antigen / Streptococcus pneumoniae type 20 capsular polysaccharide antigen / Streptococcus pneumoniae type 22F capsular polysaccharide antigen / Streptococcus pneumoniae type 23F capsular polysaccharide antigen / Streptococcus pneumoniae type 3 capsular polysaccharide antigen / Streptococcus pneumoniae type 33F capsular polysaccharide antigen / Streptococcus pneumoniae type 4 capsular polysaccharide antigen / Streptococcus pneumoniae type 5 capsular polysaccharide antigen / Streptococcus pneumoniae type 6B capsular polysaccharide antigen / Streptococcus pneumoniae type 7F capsular polysaccharide antigen / Streptococcus pneumoniae type 8 capsular polysaccharide antigen / Streptococcus pneumoniae type 9N capsular polysaccharide antigen / Streptococcus pneumoniae type 9V capsular polysaccharide antigen; Translations: [PNEUMOCOCCAL 23-DERICK PS VACCINE] Drug Allergy 12-27-19 11 Shortness of Breath [facility] (17 sources) Sulfamethoxazole / Trimethoprim; Translations: [SULFAMETHOXAZOLE-T RIMETHOPRIM] Drug Allergy 12-09-19 20 Anaphylaxis, Sweating (finding), Abdominal pain (finding), Vomiting (disorder) [facility] Work Phone: (12 sources) Sulfonamides (Antibiotic); Translations: [SULFA (SULFONAMIDE ANTIBIOTICS)] Drug Allergy 04-05-20 [address] [facility] (20 sources) telithromycin; Translations: [telithromycin] Drug Allergy 05-10-20 05 Mental Status Change [facility] Work Phone: Comment on above: mental status change (14 sources) traMADol; Translations: [TRAMADOL HCL] Drug Allergy 12-27-19 11 Other: See Comments [facility] (6 sources) Environmental allergies [Other] Propensity to adverse reactions 12-27-[address] [facility] (6 sources) Amoxicillin; Translations: [amoxicillin trihydrate] Drug Allergy 08-23-19 22 Unknown [facility] (6 sources) Morphine; Translations: [morphine sulfate] Drug Allergy 08-23-19 22 Unknown [facility] (6 sources) Naltrexone; Translations: [naltrexone HCl] Drug Allergy 08-23-19 22 Unknown [facility] (5 sources) Sulfamethoxazole Drug Allergy 08-23-19 22 Anaphylaxis [facility] Work Phone: (5 sources) Trimethoprim Drug Allergy 08-23-19 22 Anaphylaxis [facility] Work Phone: (6 sources) pneumococcal 23-valent polysacchari; Translations: [pneumococcal 23-valent polysacchari] Allergy to substance 08-23-19 22 Unknown [facility] (6 sources) potassium clavulanate; Translations: [potassium clavulanate] Allergy to substance 08-23-19 Unknown [facility] (6 sources) Xobhpoe-Knv-Xrz Reductase Inhibitor; Translations: [Rhfcopu-Yuy-Gzb Reductase Inhibitor] Allergy to substance 08-23-19 Unknown [facility] (3 sources) HMG-CoA reductase inhibitor Drug Intolerance 06-15-20 12 Other: See Comments [facility] Work Phone: (2 sources) Sulfonamides (Antibiotic) Allergy to substance 04-04-20 Anaphylaxis [facility] Work Phone: (6 sources) dulaglutide; Translations: [dulaglutide] Drug Allergy [facility] (13 sources) Metoprolol; Translations: [metoprolol] Drug Allergy Telithromycin (product) [facility] Comment on above: palpatations (13 sources) pioglitazone; Translations: [pioglitazone] Drug Allergy [facility] Comment on above: swelling (13 sources) Pneumococcal vaccine; Translations: [pneumococcal vaccine] Drug Allergy Difficulty breathing [facility] (13 sources) traMADol; Translations: [tramadol] Drug Allergy [facility] (1 source) OTHER; Translations: [OTHER] Propensity to adverse reactions (disorder) 12-27-19 [facility] Rep[facility] (9 sources) Amoxicillin; Translations: [amoxicillin] Drug Allergy unknown [facility] (9 sources) Doxycycline; Translations: [doxycycline] Drug Allergy unknown [facility] (1 source) misc non-codified allergy 6 Allergy to substance Anaphylaxis (disorder) [facility] Comment on above: highly allergic to b lack mulch- the smoke from it (7 sources) misc non-codified allergy 4 Allergy to substance Anaphylaxis (disorder) [facility] Comment on above: highly allergic to b lack mulch- the smoke from it (1 source) Morphine / Naltrexone Drug Allergy 07-31-[address] [facility] Work Phone: (2 sources) lurasidone; Translations: [lurasidone] Drug [facility]ergy [facility] QUEti[facility]; Translations: [quetiapine] Drug Allergy Pt states she felt drunk [facility] (1 source) misc non-codified allergy 5 Allergy to substance Anaphylaxis (disorder) [facility] Comment on above: highly allergic to b lack mulch- the smoke from it (1 source) adalimumab Drug Allergy 01-18-20 [facility] (1 source) Clindamycin Drug Allergy 01-18-20 [facility] (1 source) Codeine Drug Allergy 01-18-20 [facility] (1 source) Etanercept Drug Allergy 01-18-20 [facility] (1 source) leflunomide Drug Allergy 01-18-20 [facility] (1 source) Metoprolol Drug Allergy 01-18-20 [facility] (1 source) oxyMORphone Drug Allergy 01-18-20 [facility] (1 source) pioglitazone Drug Allergy 01-18-20 [facility] (1 source) Sulfamethoxazole Drug Allergy 01-18-20 [facility] (1 source) Sulfonamides (Antibiotic) Drug allergy (disorder) 01-18-20 [facility] (1 source) telithromycin Drug Allergy 01-18-20 [facility] (1 source) traMADol Drug Allergy 01-18-20 [facility] (1 source) Trimethoprim Drug Allergy 01-18-20 [facility] Medications Current Medications Medication Drug Class(es) Dates Sig (Normalized) Sig (Original) acetaminophen 500 mg oral powder (2 sources) Start: 11-24-2024 Tylenol Extra Strength 500 mg oral powder 2 packet(s), Oral, q6h, PRN as needed for fever, # 12 packet(s), 0 Refill(s) Start Date: 11/24/24 Status: Ordered Quantity: 12.0 Unit: packet(s) Repeat number: 1 Start: 09-30-2020 take 1 capsule by [facility] every four hours as needed Tylenol 325 mg oral capsule Dose : 650 mg =, Oral, q4h, PRN Temperature greater than 38.6 degrees C, 0 Refill(s) Start Date: 09/30/20 Status: Ordered Acidophilus Probiotic Blend oral capsule (8 sources) Start: 05-05-2024 End: 04-30-2025 take 1 capsule by mouth once daily Acidophilus Probiotic Blend oral capsule Dose = 1 cap(s), Oral, qDay, # 30 cap(s), 11 Refill(s), Pharmacy: [facility], Nausea Bloating, 176, cm, 03/10/24 8:22:00 EDT, Height, kg, 03/10/24 8:22:00 EDT, Dosing Weight Start Date: 05/05/24 Stop Date: 04/30/25 Status: Ordered Quantity: 30.0 Unit: cap(s) Repeat number: 12 Indications: Nausea; Abdominal distension (gaseous); Start: 04-30-2023 End: 04-24-2024 take 1 capsule by mouth once daily Acidophilus Probiotic Blend oral capsule Dose = 1 cap(s), Oral, qDay, # 30 cap(s), 11 Refill(s), Pharmacy: [facility], Nausea Bloating, 175, cm, 03/26/23 14:42:00 EDT, Height, kg, 04/30/23 13:32:00 EDT, Dosing Weight Start Date: 04/30/23 Stop Date: 04/24/24 Status: Ordered [id number] 200 actuat albuterol 0.09 mg/actuat metered dose inhaler (20 sources) beta2-Adrenergic Agonist Start: 08-30-2016 take 2 puff(s) by inhalation every four hours as needed albuterol HFA (PROAIR HFA) 90 mcg/actuation inhaler Indications: Sinobronchitis Inhale 2 Puffs as instructed every 4 hours as needed. 1 Inhaler 08/30/2016 Active Start: 07-12-2016 take 2 puff(s) by in halation four times daily as needed for wheezing ProAir HFA 2 puff(s), Inhalation, QID, PRN as needed for wheezing, 0 Refill(s) Start Date: 07/12/16 Status: Ordered Start: 03-04-2014 take 1 puff(s) by in halation every four hours as needed Albuterol Sulfate Active 2 PUFF INHALATION EVERY 4 HOURS NEEDED March 04, 2014 1:54pm Start: 03-04-2014 take 1 puff(s) by in halation every four hours as needed Albuterol Sulfate Active 2 PUFF INHALATION EVERY 4 HOURS NEEDED March 03, 2014 11:00pm Start: 03-04-2014 take 1 puff(s) by in halation every four hours as needed Albuterol Sulfate Active 2 PUFF INHALATION EVERY 4 HOURS NEEDED March 04, 2014 12:00am PROAIR HFA 108 ( 90 Base) MCG/ACT AERS ALBUTEROL SULFATE [id number] Miguel Pena MD PROAIR HFA 108 ( 90 Base) MCG/ACT AERS ALBUTEROL SULFATE [id number] Miguel Pena MD Comment on above: Inhale 2 Puffs as in structed every 4 hours as needed. albuterol MDI (90 mcg/inh) CFC free inhalation aerosol (1 source) Start: 5 take 1 puff(s) by inhalation every six hours as needed for wheezing albuterol MDI (90 mcg/inh) CFC free inhalation aerosol 1 puff(s), Inhalation, q6h, PRN as needed for wheezing, # 18 gram(s), 2 Refill(s), Pharmacy: [facility], 175, cm, 09/01/24 13:07:00 EST, Height, kg, 09/01/24 13:07:00 EST, Dosing Weight Start Date: 10/06/24 Status: Ordered Quantity: 18.0 Unit: g Repeat number: 3 allopurinol 100 mg oral tablet (8 sources) Xanthine Oxidase Inhibitor Start: 5 allopurinol 100 mg oral tablet Dose : 100 mg = 1 tab(s), Oral, qDay, # 90 tab(s), 3 Refill(s), Pharmacy: [facility], 174.8, cm, 10/26/24 11:35:00 EDT, Height, kg, 10/26/24 11:35:00 EDT, Dosing Weight Start Date: 11/17/24 Status: Ordered Quantity: 90.0 Unit: tab(s) Repeat number: 4 Start: 12-26-2023 allopurinol 10 0 mg oral tablet Dose : 100 mg = 1 tab(s), Oral, qDay, # 30 tab(s), 3 Refill(s), Pharmacy: [facility], 176, cm, 12/26/23 13:54:00 EDT, Height, kg, 12/26/23 13:56:00 EDT, Dosing Weight Start Date: 12/26/23 Status: Ordered Start: 09-24-2023 allopurinol 10 0 mg oral tablet Dose : 100 mg = 1 tab(s), Oral, qDay, # 30 tab(s), 3 Refill(s), Pharmacy: [facility], 176, cm, 08/29/23 14:20:00 EST, Height, kg, 08/29/23 14:20:00 EST, Dosing Weight Start Date: 09/24/23 Status: Ordered Start: 03-19-2023 End: 06-17-2023 allopurinol 100 mg oral tabl et Dose : 100 mg = 1 tab(s), Oral, qDay, # 30 tab(s), 2 Refill(s), Pharmacy: [id number], 172.7, cm, 01/10/23 15:40:00 EDT, Height, kg, 02/18/23 15:24:00 EDT, Dosing Weight Start Date: 03/19/23 Stop Date: 06/17/23 Status: Ordered celecoxib 100 mg oral capsule (1 source) Nonsteroidal Anti-inflammatory Drug Start: 05-27-2022 take 1 capsule by mouth twice daily Celecoxib (Celebrex) 100 mg capsule Active 100 MG PO TWICE A DAY 60 May 26, 2022 11:00pm cholecalciferol 0.05 mg oral capsule (10 sources) Vitamin D Start: 08-13-2024 cholecalciferol 50 mcg (2000 intl units) oral capsule Dose : 50 mcg = 1 cap(s), Oral, Daily, 0 Refill(s) Start Date: 08/13/24 Status: Ordered Repeat number: 1 Start: 04-04-2022 take 1 capsule by [facility] once daily Cholecalciferol (Vitamin D3) (Vitamin D3) 50 mcg (2,000 unit) Capsule Active 50 MCG PO DAILY April 03, 2022 11:00pm End: 11-01-2022 take 1 capsule by mouth once daily cholecalciferol, vitamin D3, 10 mcg (400 unit) cap Take 400 Units by mouth once daily. 11/01/2022 Discontinued Comment on above: Take 400 Units by [facility] once daily. cider vinegar oral tablets (1 source) Start: 1 take 1 capsule by mouth once daily cider vinegar oral tablets 1 capsule, Oral, Daily, 0 Refill(s) Start Date: 09/20/20 Status: Ordered Clobetasol (1 source) Corticosteroid Start: 3 clobetasol 0.05% topical cream Apply 1 bautista, Topical, BID, # 15 gram(s), 0 Refill(s), Pharmacy: [id number], Cream, 172.7, cm, 01/10/23 15:40:00 EDT, Height, 84.4 Start Date: 02/18/23 Status: Ordered colchicine 0.6 mg oral tablet (7 sources) Start: 5 colchicine 0.6 mg oral tablet Dose : 0.6 mg = 1 tab(s), Oral, BID, # 180 tab(s), 1 Refill(s), Pharmacy: [facility], 174.8, cm, 11/24/24 9:42:00 EDT, Height, kg, 11/24/24 9:42:00 EDT, Dosing Weight Start Date: 11/24/24 Status: Ordered Quantity: 180.0 Unit: tab(s) Repeat number: 2 Start: 12-26-2023 colchicine 0.6 mg oral capsule See Instructions, Take 2 tabs as first dose, then 1 tab one hour later, # 3 tab(s), 3 Refill(s), Pharmacy: [facility], Gout flare, 176, cm, 12/26/23 13:54:00 EDT, Height, kg, 12/26/23 13:56:00 EDT, Dosing Weight Start Date: 12/26/23 Status: Ordered Start: 10-01-2023 colchicine 0.6 mg oral capsule See Instructions, Take 2 tabs as first dose, then 1 tab one hour later, # 3 tab(s), 3 Refill(s), Pharmacy: [facility], Gout flare, 176, cm, 09/26/23 14:49:00 EST, Height, kg, 09/26/23 14:49:00 EST, Dosing Weight Start Date: 10/01/23 Status: Ordered Start: 06-06-2023 colchicine 0.6 mg oral capsule See Instructions, Take 2 tabs as first dose, then 1 tab one hour later, # 3 tab(s), 0 Refill(s), Pharmacy: [facility], Gout flare, 175, cm, 03/26/23 14:42:00 EDT, Height, kg, 04/30/23 13:32:00 EDT, Dosing Weight Start Date: 06/06/23 Status: Ordered Continuous Glucose Monitorin g System (11 sources) Start: 07-07-2024 Continuous Glu cose Monitoring System See Instructions, Freestyle Tanmay 2 sensors for continuous glucose moitoring. #7 sensors for 90 day supply, # 2 EA, 3 Refill(s), Pharmacy: [facility], Uncontrolled diabetes mellitus with hypoglycemia, 176, cm, 06/09/24 10:19:00 EST, Height, 103.1, kg, 06/09/24 10:19:00 EST, Dosing Weight Start Date: 07/07/24 Status: Ordered Quantity: 2.0 Unit: EA Repeat number: 4 Indications: Type 2 diabetes mellitus with hypoglycemia without coma; Start: 05-29-2023 Continuous Glu cose Monitoring System See Instructions, Freestyle Tanmay 2 sensors for continuous glucose moitoring. #7 sensors for 90 day supply, # 7 EA, 0 Refill(s), Pharmacy: [facility], Uncontrolled diabetes mellitus with hypoglycemia, 175, cm, 03/26/23 14:42:00 EDT, Height, 90.7, kg, 04/30/23 13:32:00 EDT, Dosing Weight Start Date: 05/29/23 Status: Ordered Start: 04-30-2023 Continuous Glu cose Monitoring System See Instructions, Freestyle Tanmay 2 sensors for continuous glucose moitoring. #7 sensors for 90 day supply, # 7 EA, 0 Refill(s), Pharmacy: [facility], Uncontrolled diabetes mellitus with hypoglycemia, 175, cm, 03/26/23 14:42:00 EDT, Height, 90.7, kg, 04/30/23 13:32:00 EDT, Dosing Weight Start Date: 04/30/23 Status: Ordered Start: 01-13-2023 Continuous Glu cose Monitoring System See Instructions, Freestyle Tanmay 2 sensors for continuous glucose moitoring. #7 sensors for 90 day supply, # 7 EA, 0 Refill(s), Pharmacy: [id number], Uncontrolled diabetes mellitus with hypoglycemia, 172.7, cm, 01/10/23 15:40:00 EDT, Height, 85.2, kg, 01/10/23 15:40:00 EDT, Dosing Weight Start Date: 01/13/23 Status: Ordered Start: 01-13-2023 Continuous Glu cose Monitoring System See Instructions, Freestyle Tanmay 2 sensors for continuous glucose moitoring. #7 sensors for 90 day supply, # 7 EA, 0 Refill(s), Pharmacy: [id number], Uncontrolled diabetes mellitus with hypoglycemia, 172.7, cm, 01/10/23 15:40:00 EDT, Height... Start Date: 01/13/23 Status: Ordered Start: 12-03-2022 Continuous Glu cose Monitoring System See Instructions, Freestyle Tanmay 2 sensors for continuous glucose moitoring. #7 sensors for 90 day supply, # 7 EA, 3 Refill(s), Uncontrolled diabetes mellitus with hypoglycemia, 172.7, cm, 11/06/22 9:27:00 EDT, Height, 83.1 Start Date: 12/03/22 Status: Ordered cyclobenzaprine hydrochloride 10 mg oral tablet (9 sources) Muscle Relaxant Start: 10-08-2022 cyclobenzaprin e 10 mg oral tablet Dose : 10 mg = 1 tab(s), Oral, TID, PRN as needed for spasm, # 30 tab(s), 0 Refill(s) Start Date: 10/08/22 Status: Ordered Start: 01-28-2018 End: 05-03-2019 take 10 mg by mouth three times daily Cyclobenzaprine Discontinued 10 MG PO THREE TIMES A DAY January 27, 2018 11:00pm May 03, 2019 10:02am diphenhydrAMINE hydrochloride 25 mg oral capsule (7 sources) Histamine-1 Receptor Antagonist Start: 10-04-2020 End: 03-28-2022 take 25 mg by mouth once daily Diphenhydramine Hcl Active 25 MG PO DAILY March 28, 2022 2:30pm DME MISCellaneous (20 sources) Start: 11-15-2024 DME MISCellaneous See Instructions, Patient needs refill on Freestyle Tanmay 2 senors, # 2 EA, 4 Refill(s), Pharmacy: [facility], 174.8, cm, 10/26/24 11:35:00 EDT, Height, 98.1, kg, 10/26/24 11:35:00 EDT, Dosing Weight Start Date: 11/15/24 Status: Ordered Quantity: 2.0 Unit: EA Repeat number: 5 Start: 09-15-2023 DME MISCellane ous See Instructions, Patient needs refill on Freestyle Tanmay 2 senors She has been out for a week, # 2 EA, 4 Refill(s), Pharmacy: [facility], 176, cm, 08/29/23 14:20:00 EST, Height, 90.8, kg, 08/29/23 14:20:00 EST, Dosing Weight Start Date: 09/15/23 Status: Ordered Start: 10-08-2022 DME MISCellane ous See Instructions, alcohol swabs for twice daily blood glucose testing. 90 day supply., # 1 EA, 3 Refill(s), Pharmacy: [facility], DMII (diabetes mellitus, type 2), 172.7, cm, 10/08/22 10:00:00 EST, Height, 85 Start Date: 10/08/22 Status: Ordered Quantity: 1.0 Unit: EA Repeat number: 4 Indications: Type 2 diabetes mellitus without complications; Start: 10-08-2022 DME MISCellane ous See Instructions, alcohol swabs for twice daily blood glucose testing. 90 day supply., # 1 EA, 3 Refill(s), Pharmacy: [facility], DMII (diabetes mellitus, type 2), 172.7, cm, 10/08/22 10:00:00 EST, Height, 85 Start Date: 10/08/22 Status: Ordered Start: 10-08-2022 DME MISCellane ous See Instructions, Supply 1 glucometer for blood glucose testing at home twice daily. ., # 1 EA, 0 Refill(s), Pharmacy: [facility], DMII (diabetes mellitus, type 2), 172.7, cm, 10/08/22 10:00:00 EST, Height, 85 Start Date: 10/08/22 Status: Ordered Quantity: 1.0 Unit: EA Repeat number: 1 Indications: Type 2 diabetes mellitus without complications; Start: 10-08-2022 DME MISCellane ous See Instructions, Supply 1 glucometer for blood glucose testing at home twice daily. ., # 1 EA, 0 Refill(s), Pharmacy: [facility], DMII (diabetes mellitus, type 2), 172.7, cm, 10/08/22 10:00:00 EST, Height, 85 Start Date: 10/08/22 Status: Ordered DULoxetine 60 mg delayed release oral capsule (20 sources) Serotonin and Norepinephrine Reuptake Inhibitor Start: 10-15-2024 End: 07-12-2025 DULoxetine 60 mg oral delayed release capsule Dose : 120 mg = 2 cap(s), Oral, qDay, # 180 cap(s), 2 Refill(s), Pharmacy: [facility], 175, cm, 09/01/24 13:07:00 EST, Height, kg, 09/01/24 13:07:00 EST, Dosing Weight Start Date: 10/15/24 Stop Date: 07/12/25 Status: Ordered Quantity: 180.0 Unit: cap(s) Repeat number: 3 Start: 04-30-2023 End: 09-21-2024 DULoxetine 60 mg oral delaye d release capsule Dose : 120 mg = 2 cap(s), Oral, qDay, # 180 cap(s), 2 Refill(s), Pharmacy: [facility], 176, cm, 12/26/23 13:54:00 EDT, Height, kg, 12/26/23 13:56:00 EDT, Dosing Weight Start Date: 12/26/23 Stop Date: 09/21/24 Status: Ordered Start: 07-12-2016 Cymbalta 60 mg oral delayed release capsule Dose : 120 mg = 2 cap(s), Oral, qDay, 0 Refill(s) Start Date: 07/12/16 Status: Ordered Start: 11-30-2013 take 120 mg by mouth once jl y Duloxetine Active 120 MG PO DAILY November 29, 2013 11:00pm empagliflozin 25 mg oral tablet (6 sources) Sodium-Glucose Cotransporter 2 Inhibitor Start: 12-08-2024 End: 03-08-2025 Jardiance 25 mg oral tablet Dose : 25 mg = 1 tab(s), Oral, qAM, # 90 tab(s), 0 Refill(s), Pharmacy: [facility], Type 2 diabetes mellitus with diabetic neuropathy, 174, cm, 12/08/24 10:52:00 EDT, Height, kg, 12/08/24 10:52:00 EDT, Dosing Weight Start Date: 12/08/24 Stop Date: 03/08/25 Status: Ordered Quantity: 90.0 Unit: tab(s) Repeat number: 1 Indications: Type 2 diabetes mellitus with diabetic neuropathy, unspecified; Start: 12-08-2024 take 1 tablet by ana once daily Jardiance 10 mg oral tablet Dose : 10 mg = 1 tab(s), Oral, qAM, Start at 10mg once daily x30 days, then increase to 25mg once daily thereafter., # 30 tab(s), 0 Refill(s), Pharmacy: [facility], 174, cm, 12/08/24 10:52:00 EDT, Height, kg, 12/08/24 10:52:00 EDT, Dosing Weight Start Date: 12/08/24 Status: Ordered Quantity: 30.0 Unit: tab(s) Repeat number: 1 Start: 01-01-2023 Jardiance 25 m g oral tablet Dose : 25 mg = 1 tab(s), Oral, qAM, # 30 tab(s), 5 Refill(s), 173, cm, 12/20/22 10:19:00 EDT, Height Start Date: 01/01/23 Status: Ordered Start: 10-18-2022 Jardiance 10 m g oral tablet Dose : 10 mg = 1 tab(s), Oral, qAM, # 30 tab(s), 0 Refill(s), Pharmacy: [facility], DMII (diabetes mellitus, type 2), 172.7, cm, 10/18/22 14:09:00 EDT, Height Start Date: 10/18/22 Status: Ordered estradiol 1 mg oral tablet (20 sources) Estrogen Start: 09-20-2020 estradiol 1 mg oral tablet Dose : 1.5 mg = 1.5 tab(s), Oral, qDay, # 30 tab(s), 0 Refill(s) Start Date: 09/20/20 Status: Ordered Start: 04-21-2020 End: 11-22-2021 take 1.5 tablets by mouth once daily estradiol (ESTRACE) 1 mg tablet Take 1.5 tablets by mouth once daily. 45 tablet 5 04/21/2020 11/22/2021 Discontinued (Course of therapy completed) Start: 01-04-2020 End: 04-01-2022 take 1.5 mg by mouth once daily Estradiol Discontinued 1.5 MG PO DAILY January 06, 2020 6:55am April 01, 2022 6:57am off 1 week; repeat cycle Start: 05-03-2019 End: 05-04-2019 take 1 mg by mouth once daily Estradiol Discontinued 1 MG PO DAILY May 02, 2019 11:00pm May 04, 2019 10:48am Start: 10-04-2017 End: 05-03-2019 take 1 mg by mouth once daily Estradiol Discontinued 1 MG PO DAILY October 04, 2017 12:00am May 03, 2019 9:59am Comment on above: Take 1.5 tablets by mouth once daily. ezetimibe 10 mg oral tablet (20 sources) Dietary Cholesterol Absorption Inhibitor Start: 03-22-2024 ezetimibe 10 mg oral tablet Dose : 10 mg = 1 tab(s), Oral, Daily, # 90 tab(s), 3 Refill(s), Pharmacy: [facility], 176, cm, 03/10/24 8:22:00 EDT, Height, kg, 03/10/24 8:22:00 EDT, Dosing Weight Start Date: 03/22/24 Status: Ordered Quantity: 90.0 Unit: tab(s) Repeat number: 4 Start: 06-06-2023 ezetimibe 10 m g oral tablet Dose : 10 mg = 1 tab(s), Oral, Daily, # 90 tab(s), 3 Refill(s), Pharmacy: [facility], 175, cm, 03/26/23 14:42:00 EDT, Height, kg, 04/30/23 13:32:00 EDT, Dosing Weight Start Date: 06/06/23 Status: Ordered Start: 05-14-2019 End: 04-19-2021 ezetimibe 10 mg oral tablet Dose : 10 mg = 1 tab(s), Oral, Daily, 0 Refill(s) Start Date: 09/20/20 Status: Ordered Comment on above: Take 10 mg by mouth once daily. fenofibrate 145 mg oral tablet (1 source) Peroxisome Proliferator Receptor alpha Agonist Start: 09-26-2023 End: 12-25-2023 fenofibrate 145 mg oral tablet Dose : 145 mg = 1 tab(s), Oral, qDay, # 30 tab(s), 2 Refill(s), Pharmacy: [facility], HLD (hyperlipidemia) HTN (hypertension), 176, cm, 09/26/23 14:49:00 EST, Height, kg, 09/26/23 14:49:00 EST, Dosing Weight Start Date: 09/26/23 Stop Date: 12/25/23 Status: Ordered furosemide 20 mg oral tablet (11 sources) Loop Diuretic Start: 11-24-2024 Lasix 20 mg oral tablet Dose : 20 mg = 1 tab(s), Oral, qDay, # 30 tab(s), 2 Refill(s), Pharmacy: [facility], 174.8, cm, 11/24/24 9:42:00 EDT, Height, kg, 11/24/24 9:42:00 EDT, Dosing Weight Start Date: 11/24/24 Status: Ordered Quantity: 30.0 Unit: tab(s) Repeat number: 3 Start: 11-24-2023 Lasix 20 mg or al tablet Dose : 20 mg = 1 tab(s), Oral, qDay, # 30 tab(s), 11 Refill(s), Pharmacy: [facility], 176, cm, 11/07/23 12:52:00 EDT, Height, kg, 11/07/23 12:52:00 EDT, Dosing Weight Start Date: 11/24/23 Status: Ordered Start: 10-01-2023 Lasix 20 mg or al tablet Dose : 20 mg = 1 tab(s), Oral, qDay, # 30 tab(s), 11 Refill(s), Pharmacy: [facility], 176, cm, 09/26/23 14:49:00 EST, Height, kg, 09/26/23 14:49:00 EST, Dosing Weight Start Date: 10/01/23 Status: Ordered Start: 01-03-2023 End: 06-17-2023 Lasix 20 mg oral tablet Dose : 20 mg = 1 tab(s), Oral, qDay, # 30 tab(s), 2 Refill(s), Pharmacy: [id number], 172.7, cm, 01/10/23 15:40:00 EDT, Height, kg, 02/18/23 15:24:00 EDT, Dosing Weight Start Date: 03/19/23 Stop Date: 06/17/23 Status: Ordered glimepiride 4 mg oral tablet (20 sources) Sulfonylurea Start: 10-08-2022 End: 04-06-2023 glimepiride 4 mg oral tablet Dose : 4 mg = 1 tab(s), Oral, qDay, # 90 tab(s), 1 Refill(s), Pharmacy: [facility], 172.7, cm, 10/08/22 10:00:00 EST, Height Start Date: 10/08/22 Stop Date: 04/06/23 Status: Ordered Start: 08-23-2021 take 4 mg by mouth once daily Glimepiride Active 4 MG PO DAILY August 23, 2021 12:00am Start: 04-18-2021 End: 11-22-2021 take 2 tablets by mouth once daily at breakfast glimepiride (AMARYL) 2 mg tablet Take 2 tablets by mouth daily with breakfast. 2 04/18/2021 11/22/2021 Discontinued (Course of therapy completed) Start: 07-29-2018 End: 05-03-2019 take 2 mg by mouth once daily Glimepiride Discontinued 2 MG PO DAILY July 29, 2018 12:00am May 03, 2019 10:02am take 1 tablet by ana once daily GLIMEPIRIDE 1 MG TABS One tablet by mouth daily GLIMEPIRIDE [id number] Miguel Pena MD Comment on above: Take 4 mg by mouth d aily with breakfast. Take 2 tablets by mo [facility] daily with breakfast. hydroCHLOROthiazide 25 mg / lisinopril 20 mg oral tablet (17 sources) Thiazide Diuretic, Angiotensin Converting Enzyme Inhibitor Start: 05-03-20 take 1 tablet by mouth at bedtime Lisinopril-[place] chlorothiazide Active 1 TABLET PO AT BEDTIME May 03, 2019 10:00am Start: 04-12-2017 End: 11-01-2022 lisinopril-hydrochlorothiazi de (PRINZIDE, ZESTORETIC) 20-25 mg per tablet 04/12/2017 11/01/2022 Discontinued Start: 12-19-2016 End: 05-03-2019 Lisinopril-Hydrochlorothiazi de Discontinued 1 EACH PO TWICE A DAY December 18, 2016 11:00pm May 03, 2019 10:02am ibuprofen 800 mg oral tablet (20 sources) Nonsteroidal Anti-inflammatory Drug Start: 11-17-2024 ibuprofen 800 mg oral tablet Dose : 800 mg = 1 tab(s), Oral, q8h, # 270 tab(s), 3 Refill(s), Pharmacy: [facility], 174.8, cm, 10/26/24 11:35:00 EDT, Height, kg, 10/26/24 11:35:00 EDT, Dosing Weight Start Date: 11/17/24 Status: Ordered Quantity: 270.0 Unit: tab(s) Repeat number: 4 Start: 01-25-2024 ibuprofen 800 mg oral tablet Dose : 800 mg = 1 tab(s), Oral, q8h, # 30 tab(s), 2 Refill(s), Pharmacy: [facility], 176, cm, 12/26/23 13:54:00 EDT, Height, kg, 12/26/23 13:56:00 EDT, Dosing Weight Start Date: 01/25/24 Status: Ordered Start: 12-20-2022 ibuprofen 800 mg oral tablet Dose : 800 mg = 1 tab(s), Oral, q8h, # 30 tab(s), 3 Refill(s), Pharmacy: [facility], 176, cm, 09/26/23 14:49:00 EST, Height, kg, 09/26/23 14:49:00 EST, Dosing Weight Start Date: 10/01/23 Status: Ordered Start: 01-04-2020 take 800 mg by mouth twice daily as needed Ibuprofen Active 800 MG PO TWICE DAILY NEEDED January 04, 2020 12:00am Start: 05-03-2019 End: 08-20-2019 take 800 mg by mouth once daily Ibuprofen Discontinued 800 MG PO DAILY May 03, 2019 10:00am August 20, 2019 2:58pm Start: 03-02-2014 End: 05-03-2019 take 800 mg by mouth twice daily Ibuprofen Discontinued 800 MG PO TWICE A DAY March 01, 2014 11:00pm May 03, 2019 10:02am Insulin Aspart FlexPen 100 units/mL injectable solution (1 source) Start: 04-30-2023 inject 1 dose by subcutaneous injection at mealtime Insulin Aspart FlexPen 100 units/mL injectable solution Dose : 7 unit(s) =, Subcutaneous, TIDAC, takes 7 units beofre meals, 0 Refill(s) Start Date: 04/30/23 Status: Ordered 3 ml insulin aspart, human 100 unt/ml pen injector (7 sources) Insulin Analog Start: 12-08-2024 NovoLOG FlexPe n 100 units/mL injectable solution Dose : 32 unit(s) =, Subcutaneous, TIDAC, # 45 mL, 0 Refill(s), Pharmacy: [facility], 174.8, cm, 11/24/24 9:42:00 EDT, Height, kg, 11/24/24 9:42:00 EDT, Dosing Weight Start Date: 12/08/24 Status: Ordered Quantity: 45.0 Unit: mL Repeat number: 1 Start: 12-24-2023 NovoLOG 100 un its/mL injectable solution Dose : 15 unit(s) =, Subcutaneous, TIDAC, # 45 mL, 3 Refill(s), Pharmacy: [facility], 176, cm, 11/07/23 12:52:00 EDT, Height, kg, 11/07/23 12:52:00 EDT, Dosing Weight Start Date: 12/24/23 Status: Ordered Start: 04-30-2023 inject 1 dose by sub cutaneous injection at mealtime Insulin Aspart FlexPen 100 units/mL injectable solution Dose : 12 unit(s) =, Subcutaneous, TIDAC, takes 7 units beofre meals, 0 Refill(s) Start Date: 04/30/23 Status: Ordered 3 ml insulin glargine 100 unt/ml pen injector (11 sources) Insulin Analog Start: 10-15-2024 inject 1 dose by subcutaneous injection once Basaglar 100 unit(s)/mL 3 mL KwikPen Dose : 30 unit(s) =, Subcutaneous, Daily, per endo, # 15 mL, 2 Refill(s), Pharmacy: [facility], 175, cm, 09/01/24 13:07:00 EST, Height, kg, 09/01/24 13:07:00 EST, Dosing Weight Start Date: 10/15/24 Status: Ordered Quantity: 15.0 Unit: mL Repeat number: 3 Start: 12-24-2023 Basaglar 100 u nit(s)/mL 3 mL KwikPen 25u, Subcutaneous, Daily, # 15 mL, 2 Refill(s), Pharmacy: [facility], 176, cm, 11/07/23 12:52:00 EDT, Height, kg, 11/07/23 12:52:00 EDT, Dosing Weight Start Date: 12/24/23 Status: Ordered Start: 04-30-2023 Lantus Solosta r Pen 100 units/mL 3 mL Pen Dose : 24 unit(s) =, inject 25 units (0.25 ml) subcutaneously every morning Start Date: 04/30/23 Status: Ordered Start: 04-30-2023 Lantus Solosta r Pen 100 units/mL 3 mL Pen Dose : 20 unit(s) =, inject 25 units (0.25 ml) subcutaneously every morning Start Date: 04/30/23 Status: Ordered LANTUS SOLOSTAR 100 UNIT/ML SOPN 5 units daily INSULIN GLARGINE [id number] Miguel Pena MD LANTUS SOLOSTAR 100 UNIT/ML SOPN 5 units daily INSULIN GLARGINE [id number] Miguel Pena MD lamoTRIgine 25 mg oral tablet (1 source) Mood Stabilizer, Anti-epileptic Agent Start: 12-08-2024 lamoTRIgine 25 mg oral tablet Dose : 25 mg = 1 tab(s), 0 Refill(s) Start Date: 12/08/24 Status: Ordered Repeat number: 1 LORazepam 1 mg oral tablet (20 sources) Benzodiazepine Start: 05-27-2022 take 0.5 mg by mouth three times daily as needed Lorazepam Active 0.5 MG PO 3 TIMES DAILY NEEDED May 27, 2022 3:06pm Start: 10-04-2017 End: 05-27-2022 LORazepam 1 mg oral tablet 0 Refill(s), 84.4 Start Date: 03/26/23 Status: Ordered Comment on above: 1 mg. losartan potassium 100 mg oral tablet (9 sources) Angiotensin 2 Receptor Angelina Start: 11-24-2024 End: 05-23-2025 losartan 100 mg oral tablet Dose : 100 mg = 1 tab(s), Oral, qDay, # 90 tab(s), 1 Refill(s), Pharmacy: [facility], 174.8, cm, 11/24/24 9:42:00 EDT, Height, kg, 11/24/24 9:42:00 EDT, Dosing Weight Start Date: 11/24/24 Stop Date: 05/23/25 Status: Ordered Quantity: 90.0 Unit: tab(s) Repeat number: 2 Start: 11-24-2023 losartan 50 mg oral tablet Dose : 50 mg = 1 tab(s), Oral, qDay, # 90 tab(s), 1 Refill(s), Pharmacy: [facility], 176, cm, 11/07/23 12:52:00 EDT, Height, kg, 11/07/23 12:52:00 EDT, Dosing Weight Start Date: 11/24/23 Status: Ordered Start: 09-26-2023 losartan 50 mg oral tablet Dose : 50 mg = 1 tab(s), Oral, qDay, # 90 tab(s), 0 Refill(s), Pharmacy: [facility], 176, cm, 09/26/23 14:49:00 EST, Height, kg, 09/26/23 14:49:00 EST, Dosing Weight Start Date: 09/26/23 Status: Ordered Start: 04-30-2023 losartan 25 mg oral tablet Dose : 25 mg = 1 tab(s), Oral, qDay, # 30 tab(s), 2 Refill(s), Pharmacy: [facility], 176, cm, 08/29/23 14:20:00 EST, Height, kg, 08/29/23 14:20:00 EST, Dosing Weight Start Date: 09/01/23 Status: Ordered magnesium glycinate 100 mg o ral tablet (5 sources) Start: 02-18-2023 magnesium glyc inate 100 mg oral capsule Dose : 200 mg = 2 cap(s), Oral, qDay, # 60 cap(s), 0 Refill(s) Start Date: 02/18/23 Status: Ordered magnesium oxide 400 mg oral tablet (10 sources) Start: 08-27-2024 magnesium oxid e 400 mg oral tablet Dose : 400 mg = 1 tab(s), Oral, qDay, TAKE 1 CAPSULE BY MOUTH EVERY DAY, # 90 tab(s), 1 Refill(s), Pharmacy: [facility], 175, larry, 08/23/24 13:53:00 EST, Height, kg, 08/23/24 13:53:00 EST, Dosing Weight Start Date: 08/27/24 Status: Ordered Quantity: 90.0 Unit: tab(s) Repeat number: 2 Start: 09-29-2023 End: 03-27-2024 magnesium oxide 400 mg oral tablet Dose : 400 mg = 1 tab(s), Oral, Daily, X 90 day(s), # 90 tab(s), 1 Refill(s), 03/27/24 5:41:00 PM EDT, Pharmacy: [facility], 176, , 09/26/23 14:49:00 EST, Height, kg, 09/26/23 14:49:00 EST, Dosing Weight Start Date: 09/29/23 Stop Date: 03/27/24 Status: Ordered Start: 01-03-2023 take 1 tablet by ana th once daily Magnesium 250 mg tablet mg = tab(s), Oral, qDay, Take 1 tab qday for leg cramps, 0 Refill(s) Start Date: 01/03/23 Status: Ordered Start: 08-25-2021 take 400 mg by mouth once jl y Magnesium Oxide Active 400 MG PO DAILY August 25, 2021 1:00am meclizine hydrochloride 25 mg oral tablet (3 sources) Antiemetic Start: 07-25-2023 meclizine 25 mg oral tablet 0 Refill(s) Start Date: 07/25/23 Status: Ordered metoclopramide 10 mg oral tablet (2 sources) Dopamine-2 Receptor Antagonist Start: 04-04-2022 take 10 mg by mouth four times daily Metoclopramide Hcl Active 10 MG PO 4 TIMES DAILY April 03, 2022 11:00pm Misc Medication (4 sources) Start: 12-20-2022 Mis Medication Dandelion Root, 0 Refill(s), 86.8 Start Date: 12/20/22 Status: Ordered Start: 10-08-2022 [facility] Medicatio n OTC Calcium, 0 Refill(s), 79.55 Start Date: 10/08/22 Status: Ordered nitrofurantoin, macrocrystals 25 mg / nitrofurantoin, monohydrate 75 mg oral capsule (6 sources) Nitrofuran Antibacterial Start: 02-10-2024 End: 02-17-2024 Macrobid 100 mg oral capsule Dose : 100 mg = 1 cap(s), Oral, BID, Take with food, X 7 day(s), # 14 cap(s), 0 Refill(s), 02/17/24 4:18:00 PM EDT, Pharmacy: [facility], 176, cm, 02/09/24 13:32:00 EDT, Height, 96.8, kg, 02/09/24 13:32:00 EDT, Dosing Weight Start Date: 02/10/24 Stop Date: 02/17/24 Status: Ordered Start: 07-29-2023 End: 08-05-2023 nitrofurantoin macrocrystals -monohydrate 100 mg oral capsule Dose : 100 mg = 1 cap(s), Oral, BID, Take with food, X 7 day(s), # 14 cap(s), 0 Refill(s), 08/05/23 4:46:00 PM EST, Pharmacy: [facility], UTI (urinary tract infection), bacterial, 174.3, cm, 07/25/23 7:54:00 EST, Height, 91.9, kg, 07/25/23 7:54:00 EST, Dosing Weight Start Date: 07/29/23 Stop Date: 08/05/23 Status: Ordered Start: 03-18-2022 End: 03-25-2022 take 1 capsule by mouth every twelve hours at mealtime Nitrofurantoin Monohyd/M-Cryst Discontinued 1 CAP PO Q12H 14 March 17, 2022 11:00pm March 24, 2022 11:04pm administer with a meal/food; swallow whole; do not open, crush, dissolve , or chew omega-3 acid ethyl esters ([facility]) 1000 mg oral capsule (1 source) Start: 10-15-2024 omega-3 polyun saturated fatty acids ethyl esters 1000 mg oral capsule Dose : 1,000 mg = 1 cap(s), Oral, BID, TAKE ONE Capsule BY MOUTH TWICE DAILY, # 180 cap(s), 1 Refill(s), Pharmacy: [facility], 175, cm, 09/01/24 13:07:00 EST, Height, kg, 09/01/24 13:07:00 EST, Dosing Weight Start Date: 10/15/24 Status: Ordered Quantity: 180.0 Unit: cap(s) Repeat number: 2 omeprazole 40 mg delayed release oral capsule (20 sources) Proton Pump Inhibitor Start: 07-07-2024 omeprazole 40 mg ora l delayed release capsule Dose : 40 mg = 1 cap(s), Oral, qDay, # 90 cap(s), 3 Refill(s), Pharmacy: [facility], 176, cm, 06/09/24 10:19:00 EST, Height, kg, 06/09/24 10:19:00 EST, Dosing Weight Start Date: 07/07/24 Status: Ordered Quantity: 90.0 Unit: cap(s) Repeat number: 4 Start: 07-12-2016 End: 05-31-2024 omeprazole 20 mg oral delaye d release capsule Dose : 20 mg = 1 cap(s), Oral, qDay, # 30 cap(s), 11 Refill(s), Pharmacy: [facility], 175, cm, 03/26/23 14:42:00 EDT, Height, kg, 04/30/23 13:32:00 EDT, Dosing Weight Start Date: 06/06/23 Stop Date: 05/31/24 Status: Ordered Start: 07-12-2016 take 20 mg by mouth once daily Omeprazole Active 20 MG PO DAILY January 04, 2020 10:04am Start: 03-04-2014 End: 01-04-2020 take 20 mg by mouth four times daily Omeprazole Discontinued 20 MG PO 4 TIMES DAILY March 03, 2014 11:00pm January 04, 2020 10:05am Comment on above: TAKE 1 CAPSULE BY [facility] TWICE DAILY 1/2 HOUR BEFORE A MEAL ondansetron 4 mg disintegrating oral tablet (20 sources) Serotonin-3 Receptor Antagonist Start: 10-15-2024 ondansetron 4 mg oral tablet, disintegrating Dose : 4 mg = 1 tab(s), Oral, q6h, PRN Nausea/Vomiting, # 20 tab(s), 3 Refill(s), Pharmacy: [facility], 175, cm, 09/01/24 13:07:00 EST, Height, kg, 09/01/24 13:07:00 EST, Dosing Weight Start Date: 10/15/24 Status: Ordered Quantity: 20.0 Unit: tab(s) Repeat number: 4 Start: 01-12-2024 ondansetron 4 mg oral tablet, disintegrating Dose : 4 mg = 1 tab(s), Oral, q6h, PRN Nausea/Vomiting, # 20 tab(s), 6 Refill(s), Pharmacy: [facility], 176, cm, 12/26/23 13:54:00 EDT, Height, kg, 12/26/23 13:56:00 EDT, Dosing Weight Start Date: 01/12/24 Status: Ordered Start: 11-24-2023 ondansetron 4 mg oral tablet, disintegrating Dose : 4 mg = 1 tab(s), Oral, q6h, PRN Nausea/Vomiting, # 20 tab(s), 3 Refill(s), Pharmacy: [facility], 176, cm, 11/07/23 12:52:00 EDT, Height, kg, 11/07/23 12:52:00 EDT, Dosing Weight Start Date: 11/24/23 Status: Ordered Start: 04-30-2023 ondansetron 4 mg oral tablet, disintegrating Dose : 4 mg = 1 tab(s), Oral, q6h, PRN Nausea/Vomiting, # 20 tab(s), 3 Refill(s), Pharmacy: [facility], 176, larry, 09/26/23 14:49:00 EST, Height, kg, 09/26/23 14:49:00 EST, Dosing Weight Start Date: 10/01/23 Status: Ordered Start: 04-04-2022 take 4 mg by mouth e very six hours Ondansetron Active 4 MG PO EVERY 6 HOURS April 03, 2022 11:00pm Start: 03-11-2022 take 4 mg by mouth e very eight hours Ondansetron Active 4 MG PO Q8H March 11, 2022 12:00am Start: 10-05-2020 take 8 mg by mouth e very eight hours as needed Ondansetron Active 8 MG PO EVERY 8 HOURS NEEDED October 05, 2020 12:00am Start: 01-12-2019 End: 11-01-2022 take 1 tablet by mouth every eight hours as needed for nausea ondansetron (ZOFRAN) 4 mg tablet TAKE 1 TABLET BY MOUTH EVERY 8 HOURS NEEDED NAUSEA 0 01/12/2019 11/01/2022 Discontinued Start: 12-18-2016 ONDANSETRON HC L 4 MG TABS ONDANSETRON HCL [id number] Miguel Pena MD Comment on above: TAKE 1 TABLET BY ANA TH EVERY 8 HOURS NEEDED NAUSEA potassium chloride 10 meq oral tablet (11 sources) Start: 01-25-2024 Potassium Chloride (Eqv-K-Tab) 10 mEq oral tablet, extended release Dose : 10 mEq = 1 tab(s), Oral, qDay, # 30 tab(s), 2 Refill(s), Pharmacy: [facility], 176, cm, 12/26/23 13:54:00 EDT, Height, kg, 12/26/23 13:56:00 EDT, Dosing Weight Start Date: 01/25/24 Status: Ordered Start: 09-01-2023 Potassium Chlo ride (Eqv-K-Tab) 10 mEq oral tablet, extended release Dose : 10 mEq = 1 tab(s), Oral, qDay, # 30 tab(s), 2 Refill(s), Pharmacy: [facility], 176, cm, 08/29/23 14:20:00 EST, Height, kg, 08/29/23 14:20:00 EST, Dosing Weight Start Date: 09/01/23 Status: Ordered Start: 01-10-2023 End: 07-16-2023 Potassium Chloride (Eqv-K-Ta b) 10 mEq oral tablet, extended release Dose : 10 mEq = 1 tab(s), Oral, qDay, # 30 tab(s), 5 Refill(s), Pharmacy: [id number], Hypokalemia, 172.7, cm, 01/10/23 15:40:00 EDT, Height, kg, 01/10/23 15:40:00 EDT, Dosing Weight Start Date: 01/17/23 Stop Date: 07/16/23 Status: Ordered Start: 01-10-2023 Potassium Chlo ride (Rwu-Rqwc-Lsj M20) 20 mEq oral tablet, extended release Dose : 20 mEq = 1 tab(s), Oral, BID, # 180 tab(s), 0 Refill(s) Start Date: 01/10/23 Status: Ordered predniSONE 10 mg oral tablet (13 sources) Start: 12-26-2023 predniSONE 10 mg oral tablet See Instructions, Tapering dose, 0 Refill(s) Start Date: 12/26/23 Status: Ordered Start: 12-09-2019 End: 01-04-2020 take 60 mg by mouth once daily at mealtime Prednisone Discontinued 60 MG PO DAILY December 08, 2019 11:00pm January 04, 2020 10:05am With food Start: 07-29-2018 End: 05-03-2019 take 40 mg by mouth once daily Prednisone Discontinued 40 MG PO DAILY July 29, 2018 12:00am May 03, 2019 10:02am Multivitamins with Vitamin B Complex, Vitamin C, Minerals and L-Methylfolate oral capsule (1 source) Start: 09-20-2020 take 1 capsule by mouth once daily Multivitamins with Vitamin B Complex, Vitamin C, Minerals and L-Methylfolate oral capsule Dose = 1 cap(s), Oral, Daily, 0 Refill(s) Start Date: 09/20/20 Status: Ordered sulfamethoxazole 800 mg / trimethoprim 160 mg oral tablet (6 sources) Dihydrofolate Reductase Inhibitor Antibacterial, Sulfonamide Antimicrobial Start: 07-25-2023 End: 12-27-2023 take 1 tablet by mouth every twelve hours Bactrim DS 800 mg-160 mg oral tablet Dose = 1 tab(s), Oral, q12h, Dosage expressed as trimethoprim, X 5 day(s), # 10 tab(s), 0 Refill(s), Pharmacy: [facility], 174.3, cm, 07/25/23 7:54:00 EST, Height, 91.9, kg, 07/25/23 7:54:00 EST, Dosing Weight Start Date: 07/25/23 Stop Date: 07/30/23 Status: Ordered Start: 03-02-2014 End: 03-05-2014 take 1 tablet by mouth twice daily Sulfamethoxazole-Trimethoprim Discontinu ed 1 TABLET PO TWICE A DAY March 01, 2014 11:00pm March 05, 2014 1:18pm triamcinolone acetonide 1 mg/ml topical cream (2 sources) Corticosteroid Start: 05-27-2022 Triamcinolone Acetonide Active 1 APPLIC TOPICAL TWICE A DAY May 26, 2022 11:00pm Apply to affected area on left upper shoulder, twice daily x10 days then stop. Start: 11-22-2021 End: 11-22-2021 triamcinolone acetonide 40 m g injection (KeNALog 40) Vitamin B12 250 mcg oral tablet (1 source) Start: 07-12-2016 Vitamin B12 25 0 mcg oral tablet Dose : 250 mcg = 1 tab(s), Oral, Daily, 0 Refill(s) Start Date: 07/12/16 Status: Ordered Zinc (3 sources) Start: 10-08-2022 take 1 mg by mouth once daily Zinc mg =, Oral, qDay, 0 Refill(s) Start Date: 10/08/22 Status: Ordered Start: 04-04-2022 take 1 tablet by ana th once daily Zinc Active 1 TABLET PO DAILY April 03, 2022 11:00pm Start: 04-04-2022 take 1 tablet by ana th once daily Zinc Active 1 TABLET PO DAILY April 04, 2022 12:00am Completed/Discontinued Medications Medication Drug Class(es) Dates Sig (Normalized) Sig (Original) acetaminophen 325 mg / HYDROcodone bitartrate 5 mg oral tablet (5 sources) Opioid Agonist Start: 04-02-2020 End: 04-05-2020 take 1 tablet by mouth every six hours as needed Hydrocodone-Acetami nophen Discontinued 1 TABLET PO EVERY 6 HOURS NEEDED 12 April 02, 2020 April 04, 2020 11:02pm acetaminophen 325 mg / oxyCODONE hydrochloride 5 mg oral tablet (18 sources) Opioid Agonist Start: 05-02-2021 End: 11-22-2021 take 1 tablet by mouth every eight hours as needed for pain oxyCODONE-acetamino phen (PERCOCET) 5-325 mg tablet Indications: Traumatic complete tear of right rotator cuff, subsequent encounter Take 1 tablet by mouth every 8 hours as needed for pain. for pain. 20 tablet 05/02/2021 11/22/2021 Discontinued Start: 07-29-2020 End: 05-27-2022 take 1 tablet by mouth every six hours as needed Oxycodone-Acetaminophen Discontinued 1 TABLET PO EVERY 6 HOURS NEEDED July 29, 2020 12:00am May 27, 2022 1:42pm Start: 07-05-2020 End: 07-08-2020 take 1 tablet by mouth every six hours as needed Oxycodone-Acetaminophen Discontinued 1 TABLET PO EVERY 6 HOURS NEEDED 12 July 05, 2020 July 08, 2020 12:03am Comment on above: Take 1 tablet by ana th every 8 hours as needed for pain. for pain. azithromycin 250 mg oral tablet (2 sources) Macrolide Antimicrobial Start: 04-15-2022 End: 05-27-2022 Azithromycin Discontinued 250 MG PO daily 2022 11:00pm May 27, 2022 1:41pm 2 tablets today, then 1 tablet daily on days 2 through 5 Start: 07-12-2021 End: 11-22-2021 take 1 tablet by mouth once daily azithromycin (ZITHROMAX) 250 mg tablet Take 250 mg by mouth once daily. 0 07/12/2021 11/22/2021 Discontinued (Course of therapy completed) Comment on above: Take 250 mg by mouth once daily. betamethasone 3 mg/ml / betamethasone acetate 3 mg/ml injectable suspension (1 source) Corticosteroid Start: 03-04-2022 End: 03-04-2022 betamethasone acetate-betamethasone sodium phosphate 6 mg injection (CELESTONE) Start: 03-04-2022 End: 03-04-2022 betamethasone acetate-betame thasone sodium phosphate 6 mg injection (CELESTONE) biotin 5 mg disintegrating oral tablet (5 sources) Start: 07-29-2018 End: 05-03-2019 take 5000 ug by mouth once daily Biotin Discontinued 5000 MCG PO DAILY July 29, 2018 12:00am May 03, 2019 10:02am busPIRone hydrochloride 10 mg oral tablet (5 sources) Start: 07-29-2018 End: 05-03-2019 take 10 mg by mouth twice daily Buspirone Discontinued 10 MG PO TWICE A DAY July 29, 2018 12:00am May 03, 2019 10:02am cephalexin 50 mg/ml oral suspension (11 sources) Cephalosporin Antibacterial Start: 10-06-2020 cephalexin 250 mg/5 mL oral liquid Dose : 250 mg = 5 mL, Oral, TID, 0 Refill(s), 79.5 Start Date: 10/06/20 Status: Ordered Start: 10-04-2020 End: 10-11-2020 take 500 mg by mouth every eight hours Cephalexin Discontinued 500 MG PO EVERY 8 HOURS 08 10October 04, 2020 12:00am October 11, 2020 12:02am Start: 12-09-2019 End: 01-04-2020 take 500 mg by mouth every twelve hours Cephalexin Discontinued 500 MG PO EVERY 12 HOURS December 08, 2019 11:00pm January 04, 2020 10:03am cetirizine hydrochloride 10 mg oral capsule (5 sources) Histamine-1 Receptor Antagonist Start: 12-09-2019 End: 04-02-2020 take 10 mg by mouth once daily Cetirizine Discontinued 10 MG PO DAILY December 08, 2019 11:00pm April 02, 2020 2:40pm cloNIDine hydrochloride 0.1 mg oral tablet (8 sources) Central alpha-2 Adrenergic Agonist Start: 05-03-2019 End: 05-04-2019 take 0.1 mg by mouth once daily Clonidine Hcl Discontinued 0.1 MG PO DAILY May 02, 2019 11:00pm May 04, 2019 10:48am take 1 tablet by mouth once jl y CLONIDINE HCL 0.1 MG TABS One tablet by mouth daily CLONIDINE HCL [id number] Miguel Pena MD dextromethorphan hydrobromide 10 mg / guaiFENesin 200 mg / phenylephrine hydrochloride 5 mg oral tablet (5 sources) Uncompetitive X-aayrsx-B-aspartate Receptor Antagonist, Sigma-1 Agonist, alpha-1 Adrenergic Agonist Start: 07-29-2018 End: 05-03-2019 Cddmqmtfqrpgn-Lg-Qtmgjthszlm Discontinued 1 EACH PO TWICE A DAY July 29, 2018 12:00am May 03, 2019 10:02am doxycycline monohydrate 100 mg oral tablet (5 sources) Tetracycline-class Drug Start: 05-20-2021 End: 05-30-2021 take 100 mg by mouth twice daily Doxycycline Monohydrate Discontinued 100 MG PO TWICE A DAY 23 05May 19, 2021 11:00pm May 29, 2021 11:01pm 0.5 ML dulaglutide 6 MG/ML Auto-Injector [Trulicity] (7 sources) GLP-1 Receptor Agonist Start: 11-24-2024 inject 0.5 mL by subcuta neous injecti on every week Trulicity Pen 3 mg/0.5 mL subcutaneous solution Dose : 3 mg = 0.5 mL, Subcutaneous, qWeek, rotate injection sites, # 2.5 mL, 0 Refill(s), Pharmacy: [facility], 174.8, cm, 11/24/24 9:42:00 EDT, Height, kg, 11/24/24 9:42:00 EDT, Dosing Weight Start Date: 11/24/24 Status: Ordered Quantity: 2.5 Unit: mL Repeat number: 1 Start: 12-26-2023 Trulicity Pen 1.5 mg/0.5 mL subcutaneous solution Dose : 1.5 mg = 0.5 mL, Subcutaneous, qWeek, 0 Refill(s), 0.5 mL/Pen Start Date: 12/26/23 Status: Ordered Start: 09-24-2023 inject 0.5 mL by sub cutaneous injection every week Trulicity Pen 0.75 mg/0.5 mL subcutaneous solution Dose : 0.75 mg = 0.5 mL, Subcutaneous, qWeek, # 2 mL, 1 Refill(s), 0.5 mL/Pen, Pharmacy: [facility], 176, cm, 08/29/23 14:20:00 EST, Height, kg, 08/29/23 14:20:00 EST, Dosing Weight Start Date: 09/24/23 Status: Ordered Start: 08-18-2023 End: 09-17-2023 inject 0.5 mL by subcutaneous injection every week Trulicity Pen 0.75 mg/0.5 mL subcutaneous solution Dose : 0.75 mg = 0.5 mL, Subcutaneous, qWeek, # 4 EA, 0 Refill(s), Pharmacy: [facility], Type 2 diabetes mellitus with diabetic neuropathy, 176, cm, 08/18/23 13:03:00 EST, Height, kg, 08/18/23 13:03:00 EST, Dosing Weight Start Date: 08/18/23 Stop Date: 09/17/23 Status: Ordered Start: 07-25-2023 Trulicity Pen 0.75 mg/0.5 mL subcutaneous solution Dose : 0.75 mg =, 0 Refill(s) Start Date: 07/25/23 Status: Ordered estrogens, conjugated (penitentiary) 0.625 mg/ml vaginal cream (6 sources) Estrogen Start: 07-13-2021 conjugated est rogens (PREMARIN) vaginal cream Indications: atrophic vaginitis associated with menopause Use 1 g vaginally two times a week. Use 1g vaginally every night for two weeks and then twice weekly after that 30 g 4 07/13/2021 Active Comment on above: Use 1 g vaginally tw o times a week. Use 1g vaginally every night for two weeks and then twice weekly after that EXENATIDE (3 sources) GLP-1 Receptor Agonist BYETTA 5 MCG PEN 5 MCG/0.02ML SOPN EXENATIDE [id number] Miguel GEORGE 5 MCG PEN 5 MCG/0.02ML SOPN EXENATIDE [id number] Miguel Pena MD fluconazole 100 mg oral tablet (7 sources) Azole Antifungal Start: 03-23-2021 End: 10-31-2022 take 1 tablet by mouth once daily fluconazole (DIFLUCAN) 100 mg tablet Take 1 tablet by mouth once daily. 03/23/2021 10/31/2022 Discontinued Comment on above: Take 1 tablet by ana th once daily. hydrocortisone 10 mg/ml / neomycin 3.5 mg/ml / polymyxin b 21310 unt/ml otic suspension (1 source) Aminoglycoside Antibacterial, Polymyxin-class Antibacterial, Corticosteroid Start: 04-15-2022 End: 04-25-2022 Neomycin-Polymyxi n-Hc Discontinued 4 DRP OTIC Q8H 10 10 2022 11:00pm April 24, 2022 11:03pm to left ear while awake 10 ml lidocaine hydrochloride 10 mg/ml injection (2 sources) Antiarrhythmic, Amide Local Anesthetic Start: 03-04-2022 End: 03-04-2022 lidocaine (PF) 10 mg/mL (1 %) 4 mL injection (XYLOCAINE) Start: 11-22-2021 End: 11-22-2021 lidocaine (PF) 10 mg/mL (1 % ) 4 mL injection (XYLOCAINE) metFORMIN hydrochloride 1000 mg oral tablet (3 sources) Biguanide take 1 tablet by mouth twice daily METFORMIN HCL 1000 MG TABS One tablet by mouth twice daily METFORMIN HCL [id number] Miguel Pena MD milk thistle extract 150 mg oral capsule (2 sources) End: 11-22-2021 take 1 capsule by mouth once daily Milk Thistle 150 mg cap Take 1 capsule by mouth once daily. 11/22/2021 Discontinued (Course of therapy completed) End: 11-22-2021 take 1 capsule by mouth once daily Milk Thistle 150 mg cap Take 1 capsule by mouth once daily. 0 11/22/2021 Discontinued (Course of therapy completed) Comment on above: Take 1 capsule by mo uth once daily. 24 hr mirabegron 50 mg extended release oral tablet (1 source) beta3-Adrenergic Agonist Start: 07-13-2021 End: 11-22-2021 take 1 tablet by mouth once daily mirabegron (MYRBETRIQ) 50 mg Tb24 Indications: urinary urge incontinence Take 1 tablet by mouth once daily. 30 tablet 5 07/13/2021 11/22/2021 Discontinued (Course of therapy completed) Comment on above: Take 1 tablet by ana once daily. Drug Treatment Unknown - unknown (1 source) No information available. PNV no.95/ferrous fum/folic ac ( ORAL) (2 sources) Start: 10-04-2020 End: 11-22-2021 PNV no.95/ferrous fum/folic ac ( ORAL) Take by mouth. 10/04/2020 11/22/2021 Discontinued (Course of therapy completed) Start: 10-04-2020 End: 11-22-2021 PNV no.95/ferrous fum/folic ac ( ORAL) Take by mouth. 0 10/04/2020 11/22/2021 Discontinued (Course of therapy completed) Comment on above: Take by mouth. solifenacin succinate 10 mg oral tablet (6 sources) Cholinergic Muscarinic Antagonist Start: 07-24-20 take 1 tablet by mouth once daily solifenacin 10 mg tablet Indications: urinary urge incontinence Take 1 tablet by mouth once daily. 60 tablet 5 07/24/2021 Active Comment on above: Take 1 tablet by ana once daily. 24 hr trospium chloride 60 mg extended release oral capsule (1 source) Cholinergic Muscarinic Antagonist Start: 07-23-20 End: 11-23-19 take 1 capsule by mouth once daily Trospium (SANCTURA SR) 60 mg cp24 Take 1 capsule by mouth once daily. 30 capsule 5 07/23/2021 11/22/2021 Discontinued (Course of therapy completed) Comment on above: Take 1 capsule by mo [facility] once daily. ubidecarenone 75 mg oral capsule (5 sources) Start: 07-06-20 End: 08-19-19 20 Coenzyme Q10 (Ultra Coq10) 75 mg capsule Discontinued 75 MG PO DAILY July 06, 2019 12:00am August 19, 2019 8:12pm Problems Active Problems Problem Classification Problem Date Documented Da te Episodic/Chronic Abdominal pain (5 sources) Abdominal pain; Translations: [Unspecified abdominal pain] Episodic Acute and unspecified renal failure (1 source) Acute kidney failure, unspecified; Translations: [STEFANO (acute kidney injury) ([facility])] Onset: 3 Episodic Administrative/social admission (2 sources) Persons encountering health services in other specified circumstances; Translations: [Other reasons for seeking consultation] Episodic Allergic reactions (15 sources) Allergy status to other drugs, medicaments and biological substances status; Translations: [Anaphylactic shock, unspecified, initial encounter] Onset: 7 Episodic Anxiety disorders (11 sources) Mixed anxiety and depressive disorder; Translations: [Depressive disorder] Onset: 7 12-18-2016 Chronic Anxiety disorders (14 sources) Panic disorder without agoraphobia; Translations: [Panic disorder [episodic paroxysmal anxiety]] 12-28-2010 Chronic Asthma (20 sources) Asthma; Translations: [Mild intermittent asthma] Onset: 6 12-18-2016 Chronic Cardiac dysrhythmias (1 source) Palpitations; Translations: [Palpitations] Onset: Episodic Chronic kidney disease (1 source) Chronic kidney disease stage 3 11-24-2024 Chronic Chronic obstructive pulmonary disease and bronchiectasis (10 sources) Bronchitis; Translations: [Bronchitis, not specified as acute or chronic] Episodic Complications of surgical procedures or medical care (5 sources) Seroma following procedure; Translations: [Seroma after procedure] Episodic Conditions associated with dizziness or vertigo (2 sources) Vertigo; Translations: [Dizziness and giddiness] Episodic Coronary atherosclerosis and other heart disease (12 sources) Coronary arteriosclerosis 12-21-2022 Chronic Comment on above: Cardiac cath 11/30/19, mild coronary artery disease, preserved EF, no significant or MR. LAD 20% stenosis, left main, circumflex, rca with mild luminal irregularities. Heart cath 12/2022, 2 0% blockage. Diabetes mellitus with complications (20 sources) Secondary diabetes mellitus; Translations: [Other specified diabetes mellitus with diabetic autonomic (poly)neuropathy] Onset: 4 01-03-2023 Chronic Diabetes mellitus without complication (20 sources) Type 2 diabetes mellitus without complications; Translations: [Type 2 diabetes mellitus without complication] Onset: 3 06-02-2015 Chronic Diseases of white blood cells (5 sources) Leukocytosis; Translations: [Elevated white blood cell count, unspecified] Chronic Disorders of lipid metabolism (20 sources) Hypercholesterolemia; Translations: [Mixed hyperlipidemia] Onset: 7 12-18-2016 Chronic Disorders of teeth and jaw (15 sources) Toothache; Translations: [Other specified disorders of teeth and supporting structures] Episodic E Codes: Adverse effects of medical drugs (10 sources) Adverse reaction to drug; Translations: [Adverse effect of unspecified drugs, medicaments and biological substances, initial encounter] Episodic Esophageal disorders (15 sources) Gastro-esophageal reflux disease without esophagitis; Translations: [Gastroesophageal reflux disease] Onset: 7 10-25-2019 Chronic Essential hypertension (20 sources) Hypertensive disorder; Translations: [Essential (primary) hypertension] Onset: 7 12-18-2016 Chronic Fluid and electrolyte disorders (14 sources) Hypo-osmolality and hyponatremia; Translations: [Hypokalemia] Onset: 3 Episodic Gout and other crystal arthropathies (1 source) Acute gout 10-26-2024 Chronic Heart valve disorders (1 source) Cardiac murmur, unspecified; Translations: [Heart murmur] Onset: 3 Episodic Immunizations and screening for infectious disease (5 sources) Mantoux: positive; Translations: [Nonspecific reaction to tuberculin skin test without active tuberculosis] Episodic Intracranial injury (5 sources) Concussion injury of brain; Translations: [Concussion with loss of consciousness of unspecified duration, initial encounter] Episodic Malaise and fatigue (1 source) Other fatigue; Translations: [Other fatigue] Onset: 5 Episodic Menopausal disorders (15 sources) Menopausal syndrome; Translations: [Menopausal and female climacteric states] Onset: 3 Resolved: 4 09-10-2013 Chronic Miscellaneous mental health disorders (5 sources) Psychogenic hyperventilation; 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 Nausea and vomiting (20 sources) Intractable nausea and vomiting; Translations: [Nausea and vomiting] Onset: 7 12-18-2016 Episodic Osteoarthritis (10 sources) Arthritis; Translations: [Unspecified osteoarthritis, unspecified site] Onset: 4 07-30-2021 Chronic Other circulatory disease (12 sources) Raynaud's disease 01-03-2023 Chronic Other circulatory disease (10 sources) Orthostatic hypotension; Translations: [Orthostatic hypotension] Episodic Other circulatory disease (6 sources) 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 09-26-2023 Episodic Other circulatory disease (6 sources) Senile angioma 09-26-2023 Episodic Other connective tissue disease (12 sources) Foot pain 01-03-2023 Episodic Other connective tissue disease (6 sources) Myalgia caused by statin 09-26-2023 Episodic Other ear and sense organ disorders (1 source) Acute otitis externa; Translations: [Unspecified acute noninfective otitis externa, left ear] Episodic Other ear and sense organ disorders (1 source) Unspecified acute noninfective otitis externa, left ear; Translations: [Infective otitis externa, unspecified] Episodic Other eye disorders (7 sources) Disorder of eye region 08-18-2023 Episodic Other gastrointestinal disorders (5 sources) Swallowing painful; Translations: [Dysphagia, unspecified] Episodic Other gastrointestinal disorders (2 sources) Constipation 03-10-2024 Episodic Other infections; including parasitic (1 source) Disorder due to infection; Translations: [Unspecified infectious disease] Episodic Other injuries and conditions due to external causes (7 sources) Concussion injury of body structure 08-18-2023 Episodic Other injuries and conditions due to external causes (7 sources) History of fall 08-18-2023 Episodic Other liver diseases (1 source) Enzyme level - finding; Translations: [Abnormal levels of other serum enzymes] Episodic Other liver diseases (5 sources) Elevated liver enzymes level 12-26-2023 Episodic Other liver diseases (1 source) Abnormal levels of other serum enzymes; Translations: [Abnormal levels of other serum enzymes] Onset: 5 Episodic Other lower respiratory disease (5 sources) Dyspnea on exertion; Translations: [Dyspnea, unspecified] Episodic Other lower respiratory disease (2 sources) Shortness of breath; Translations: [Shortness of breath] Onset: 5 Episodic Other nervous system disorders (7 sources) Neuropathy; Translations: [Muscular dystrophy] Onset: 7 12-18-2016 Chronic Other nervous system disorders (7 sources) Complex regional pain syndrome of lower limb; Translations: [Complex regional pain syndrome I of unspecified lower limb] Onset: 6 07-30-2021 Chronic Other nervous system disorders (14 sources) Peripheral nerve disease ; Translations: [Polyneuropathy, unspecified] 07-30-2021 Chronic Other nervous system disorders (14 sources) Complex regional pain syndrome; Translations: [Complex regional pain syndrome I, unspecified] 03-26-2023 Chronic Other nervous system disorders (3 sources) Complex regional pain syndrome I, unspecified; Translations: [Reflex sympathetic dystrophy, unspecified] Chronic Other nervous system disorders (10 sources) Shoulder pain; Translations: [Other acute postprocedural pain] Episodic Other nervous system disorders (5 sources) Postoperative pain ; Translations: [Other acute postprocedural pain] Episodic Other non-traumatic joint disorders (1 source) Undifferentiated inflammatory polyarthritis; Translations: [Polyarthritis, unspecified] Chronic Other non-traumatic joint disorders (1 source) Chronic pain of left upper limb; Translations: [Pain in left shoulder] Episodic Other nutritional; endocrine; and metabolic disorders (3 sources) Overweight; Translations: [Overweight] Onset: 7 12-18-2016 Chronic Other nutritional; endocrine; and metabolic disorders (11 sources) Hypomagnesemia; Translations: [Hypomagnesemia] 09-26-2023 Chronic Other nutritional; endocrine; and metabolic disorders (5 sources) H/O: diabetes mellitus; Translations: [Personal history of other endocrine, nutritional and metabolic disease] Episodic Other screening for suspected conditions (not mental disorders or infectious disease) (12 sources) Patient encounter status; Translations: [Encounter for screening for malignant neoplasm of colon] Onset: Resolved: 0 Episodic Other skin disorders (1 source) Eruption; Translations: [Rash and other nonspecific skin eruption] Episodic Other skin disorders (1 source) Rash and other nonspecific skin eruption; Translations: [Rash and other nonspecific skin eruption] Episodic Other upper respiratory disease (3 sources) Seasonal allergy; Translations: [Other seasonal allergic rhinitis] Onset: 7 12-18-2016 Chronic Other upper respiratory infections (6 sources) Sinusitis 09-26-2023 Chronic Pneumonia (except that caused by tuberculosis or sexually transmitted disease) (9 sources) Pneumonia; Translations: [Pneumonia, unspecified organism] Onset: 7 12-18-2016 Episodic Residual codes; unclassified (7 sources) Insomnia; Translations: [Insomnia, unspecified] 07-30-2021 Episodic Residual codes; unclassified (5 sources) Other specified health status; Translations: [Statin intolerance] Episodic Residual codes; unclassified (5 sources) History of ankle surgery; Translations: [Other specified postprocedural states] Episodic Residual codes; unclassified (5 sources) History of operative procedure on shoulder; Translations: [Other specified postprocedural states] Episodic Residual codes; unclassified (5 sources) History of breast biopsy with benign finding; Translations: [Other specified postprocedural states] Episodic Residual codes; unclassified (5 sources) Peripheral edema; Translations: [Edema, unspecified] Episodic Residual codes; unclassified (2 sources) Pain; Translations: [Pain, unspecified] Episodic Residual codes; unclassified (2 sources) Personal history of other specified conditions; Translations: [History of syncope] Onset: 3 Episodic Residual codes; unclassified (12 sources) Edema of lower extremity 12-09-2022 Episodic Septicemia (except in labor) (1 source) Sepsis, unspecified organism; Translations: [Sepsis, due to unspecified organism, unspecified whether acute organ dysfunction present (HCC)] Onset: 3 Episodic Skin and subcutaneous tissue infections (5 sources) Cellulitis of hand; Translations: [Cellulitis of unspecified part of limb] Episodic Spondylosis; intervertebral disc disorders; other back problems (5 sources) Chronic neck pain; Translations: [Cervicalgia] Episodic Superficial injury; contusion (20 sources) Contusion of face; Translations: [Contusion of other part of head, initial encounter] Episodic Syncope (15 sources) Near syncope; Translations: [Syncope and collapse] Onset: 3 Episodic Transient cerebral ischemia (5 sources) Transient cerebral ischemia; Translations: [Transient cerebral ischemic attack, unspecified] Chronic Unclassified (1 source) No current problems or disability 12-18-2016 Unclassified (2 sources) prison (current) use of oral hypoglycemic drugs; Translations: [terminologist (current) use of oral hypoglycemic drugs] Onset: 7 Unclassified (2 sources) Other specified postprocedural states; Translations: [Other specified postprocedural states] Onset: 7 Unclassified (7 sources) Patient encounter status 08-18-2023 Unclassified (1 source) Acute candidiasis of vulva and vagina; Translations: [Acute candidiasis of vulva and vagina] Onset: 5 Urinary tract infections (20 sources) Urinary tract infectious disease; Translations: [Urinary tract infection, site not specified] Episodic Past or Other Problems Problem Classification Problem Date Documented Da te Episodic/Chronic Blindness and vision defects (10 sources) Disorder of vision; Translations: [Visual disturbance] Onset: 12-18-2016 12-18-2016 Episodic Coagulation and hemorrhagic disorders (7 sources) Bleeds easily; Translations: [Hemorrhagic condition, unspecified] Onset: 04-11-2014 04-11-2014 Episodic Diabetes mellitus without complication (3 sources) Hyperglycemia, unspecified; Translations: [Impaired fasting glycemia] Onset: 12-28-2010 Resolved: 03-01-2015 07-30-2021 Episodic Fracture of lower limb (2 sources) Closed bimalleolar fracture; Translations: [Displaced bimalleolar fracture of unspecified lower leg, initial encounter for closed fracture] Onset: 11-25-2005 Resolved: 02-13-2006 02-12-2024 Episodic Gastrointestinal hemorrhage (13 sources) Hemorrhage of rectum and anus; Translations: [Hemorrhage of anus and rectum] Onset: 08-23-2008 Resolved: 08-30-2009 12-28-2010 Episodic Genitourinary symptoms and ill-defined conditions (15 sources) Microalbuminuria; Translations: [Proteinuria, unspecified] Onset: 07-14-2014 07-14-2014 Episodic Headache; including migraine (3 sources) Headache; Translations: [Headache] Onset: 12-18-2016 12-18-2016 Episodic Heart valve disorders (1 source) Rheumatic mitral valve disease, unspecified; Translations: [Mitral valve disorders] Resolved: 08-05-2006 02-12-2024 Chronic Hemorrhoids (12 sources) Internal hemorrhoids; Translations: [Other hemorrhoids] Onset: 09-09-2008 12-28-2010 Episodic Nonmalignant breast conditions (5 sources) Breast lump; Translations: [Pain of breast] Onset: 09-18-2006 Resolved: 08-30-2009 12-18-2016 Episodic Nonspecific chest pain (16 sources) Left sided chest pain; Translations: [Chest pain, unspecified] Onset: 08-05-2006 Resolved: 08-30-2009 08-30-2009 Episodic Other aftercare (2 sources) 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; 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] Onset: 02-20-2017 Episodic Other and unspecified benign neoplasm (3 sources) History of polyp of colon; Translations: [Personal history of colonic polyps] Onset: 12-18-2016 12-18-2016 Episodic Other connective tissue disease (9 sources) Rotator cuff arthropathy of right shoulder; Translations: [Unspecified rotator cuff tear or rupture of right shoulder, not specified as traumatic] Onset: 11-22-2021 Episodic Other connective tissue disease (7 sources) Lateral epicondylitis of right humerus; Translations: [Lateral epicondylitis, right elbow] Onset: 12-20-2015 12-20-2015 Episodic Other connective tissue disease (8 sources) Impingement syndrome of left shoulder region; Translations: [Impingement syndrome of left shoulder] Onset: 10-12-2019 10-12-2019 Episodic Other connective tissue disease (7 sources) History of cervical spine fusion; Translations: [Arthrodesis status] Onset: 04-25-2021 04-25-2021 Episodic Other connective tissue disease (6 sources) Bilateral plantar fasciitis; Translations: [Plantar fascial fibromatosis] Onset: 07-17-2021 07-17-2021 Episodic Other connective tissue disease (7 sources) Left rotator cuff syndrome; Translations: [Unspecified rotator cuff tear or rupture of left shoulder, not specified as traumatic] Onset: 11-22-2021 11-22-2021 Episodic Other connective tissue disease (1 source) Pain in limb; Translations: [Pain in unspecified limb] Onset: 12-29-2008 Resolved: 08-30-2009 08-30-2009 Episodic Other connective tissue disease (1 source) Tibialis tendinitis; Translations: [Posterior tibial tendinitis, unspecified leg] Onset: 12-29-2008 Resolved: 08-30-2009 08-30-2009 Episodic Other gastrointestinal disorders (7 sources) Diarrhea; Translations: [Diarrhea, unspecified] Onset: 08-02-2010 12-28-2010 Episodic Other gastrointestinal disorders (2 sources) Abdominal distension (gaseous); Translations: [Abdominal distension (gaseous)] Onset: 05-14-2023 Episodic Other gastrointestinal disorders (2 sources) Other fecal abnormalities; Translations: [Other fecal abnormalities] Onset: 05-14-2023 Episodic Other injuries and conditions due to external causes (3 sources) Fracture of bone; Translations: [Other injury of unspecified body region] Onset: 12-18-2016 12-18-2016 Episodic Other injuries and conditions due to external causes (1 source) Unspecified injury of right lower leg, initial encounter; Translations: [Unspecified injury of right lower leg, initial encounter] Onset: 03-10-2024 Episodic Other liver diseases (7 sources) Liver mass; Translations: [Hepatomegaly, not elsewhere classified] Onset: 04-16-2010 07-30-2021 Episodic Other nervous system disorders (1 source) Complex regional pain syndrome, type II, lower limb; Translations: [Causalgia of unspecified lower limb] Onset: 02-13-2006 Resolved: 08-30-2009 08-30-2009 Chronic Other nervous system disorders (2 sources) Other acute postprocedural pain; Translations: [Other acute postprocedural pain] Onset: 02-19-2017 Episodic Other non-traumatic joint disorders (4 sources) Pain in right shoulder; Translations: [Pain in unspecified shoulder] Onset: 02-19-2017 Episodic Other non-traumatic joint disorders (2 sources) Pain in left knee; Translations: [Pain in left knee] Onset: 06-17-2024 Episodic Other nutritional; endocrine; and metabolic disorders (1 source) Metabolic syndrome X; Translations: [Dysmetabolic syndrome X] Resolved: 03-01-2015 03-01-2015 Chronic Other upper respiratory infections (3 sources) Acute sinusitis; Translations: [Acute sinusitis, unspecified] Onset: 08-09-2024 Episodic Residual codes; unclassified (1 source) Intolerant of cold; Translations: [Other general symptoms and signs] Onset: 05-10-2009 Resolved: 08-30-2009 08-30-2009 Episodic Rheumatoid arthritis and related disease (1 source) Rheumatoid arthritis, unspecified; Translations: [Rheumatoid arthritis] Resolved: 01-28-2014 07-30-2021 Chronic Sprains and strains (20 sources) Traumatic rupture of rotator cuff; Translations: [Strain of muscle(s) and tendon(s) of the rotator cuff of right shoulder, subsequent encounter] Onset: 01-05-2019 Episodic Thyroid disorders (1 source) Hypothyroidism; Translations: [Hypothyroidism, unspecified] Onset: 10-05-2009 Resolved: 10-29-2013 10-29-2013 Chronic Unclassified (2 sources) Altered mental status, unspecified; Translations: [Altered mental status, unspecified] Onset: 02-20-2017 Episodic Unclassified (5 sources) Cat bite - wound; Translations: [Cat bite involving extremity] Results Test Name Value Interpretation Reference Range Facility Endocrinology Visit Reporton 01-17-2025 Endocrinology Visit Report [facility] [address] [place] [address]. 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 Age/Sex: 59/F Location: [facility] [place] Status: Signed Intake Vital Signs 10/18/24 10:47 01/07/25 07:04 01/17/25 10:35 Height 5 ft 8 in 5 ft 8 in 5 ft 8 in Weight: 207 lb 206 lb BMI 31.4 31.3 BP 122/85 H 116/80 Blood Pressure Location Rt brachial Lt brachial Position Sitting Sitting Respiration 18 Pulse 96 92 Pulse Source Monitor Monitor Pulse Oximetry (%) 96 97 Oxygen Delivery Method room air Intake Visit Reasons: 3 M FU Chief Complaint: f/u daibetes Grain Operator Required: No Accompanied by: Self Is patient in pain?: Yes (General) Pain scale (1-10): 7 Allergies clindamycin Allergy (Mild, Verified 01/17/25 10:38) Rash adalimumab (From Humira) Allergy (Verified 01/17/25 10:38) Unknown amoxicillin trihydrate (From Augmentin) Allergy (Verified 01/17/25 10:38) Unknown codeine Allergy (Verified 01/17/25 10:38) Itching etanercept (From Enbrel) Allergy (Verified 01/17/25 10:38) Unknown leflunomide (From Arava) Allergy (Verified 01/17/25 10:38) Other metoprolol tartrate (From Lopressor) Allergy (Verified 01/17/25 10:38) Unknown morphine sulfate (From Embeda) Allergy (Verified 01/17/25 10:38) Unknown naltrexone HCl (From Embeda) Allergy (Verified 01/17/25 10:38) Unknown oxymorphone (Oxymorphone) Allergy (Verified 01/17/25 10:38) Unknown pioglitazone HCl (From Actos) Allergy (Verified 01/17/25 10:38) Other pneumococcal 23-valent polysacchari (From Pneumovax 23) Allergy (Verified 01/17/25 10:38) Unknown potassium clavulanate (From Augmentin) Allergy (Verified 01/17/25 10:38) Unknown Obccluz-WIQ-JgE Reductase Inhibitor (Htcurva-Lef-Rnk Reductase Inhibitor) Allergy (Verified 01/17/25 10:38) Unknown Sulfa (Sulfonamide Antibiotics) Allergy (Verified 01/17/25 10:38) Anaphylaxis sulfamethoxazole (From Bactrim) Allergy (Verified 01/17/25 10:38) Anaphylaxis telithromycin (From Ketek) Allergy (Verified 01/17/25 10:38) Unknown tramadol HCl (From Ultram) Allergy (Verified 01/17/25 10:38) Unknown trimethoprim (From Bactrim) Allergy (Verified 01/17/25 10:38) Anaphylaxis Medications ???Medication ???Instructions ???Recorded ???Confirmed ???Type ezetimibe 10 mg tablet 10 mg PO DAILY CHOLESTEROL #90 tab s 04/19/21 01/17/25 Rx diphenhydramine HCl 25 mg capsule 25 mg PO DAILY PRN allergy sympto ms 03/28/22 01/17/25 History duloxetine 60 mg capsule,delayed 120 mg (2 x 60 mg) PO DAILY 01/17/25 Rx release ANXIETY 30 days #60 caps albuterol sulfate 90 mcg/actuation 2 puff inhalation Q4H PRN PRN 01/17/25 Rx aerosol inhaler (Ventolin HFA) Wheezing or shortness of breath #1 inh pen needle, diabetic 32 gauge x #100 ea 03/05/23 01/17/25 Rx 5/32 (BD Ultra-Fine Thais Pen Needle) alcohol swabs 1 pad topical 4X/DAY #200 ea 04/2801/17/25 Rx ondansetron 4 mg disintegrating 4 mg PO Q6H PRN nausea and 3 01/17/25 Rx tablet vomiting #10 tabs allopurinol 100 mg tablet 100 mg PO DAILY 06/18/23 01/17/25 History pen needle, diabetic 32 gauge x #100 ea 10/23/23 01/17/25 Rx 5/32 (BD Ultra-Fine Thais Pen Needle) lorazepam 1 mg tablet 0.5 mg (1/2 x 1 mg) PO DAILY PRN 0 12/03/23 01/17/25 Rx Anxiety #30 tabs ibuprofen 800 mg tablet 800 mg PO DAILY 12/24/23 01/17/25 History insulin aspart U-100 100 unit/mL 18 sliding scale dose subcut TID 0 12/24/23 01/17/25 History (3 mL) subcutaneous pen (Novolog FlexPen U-100 Insulin aspart) hydroxyzine HCl 25 mg tablet 25 mg PO DAILY PRN anxiety 07/28/2 4 01/17/25 History colchicine 0.6 mg capsule 0.6 mg PO QDAY PRN Gout 04/21/24 0 01/17/25 History furosemide 20 mg tablet 20 mg PO QDAY 04/21/24 01/17/25 Hi story losartan 100 mg tablet 100 mg PO QDAY 04/21/24 01/17/25 H istory omega-3 acid ethyl esters 1 gram 1 cap PO BID #180 caps 04/26/24 Rx capsule flash glucose sensor (FreeStyle #2 ea 06/21/24 01/17/25 Rx Tanmay 2 Sensor kit) cholecalciferol (vitamin D3) 50 50 mcg PO QDAY #90 caps 07/19/24 0 01/17/25 Rx mcg (2,000 unit) capsule omeprazole 20 mg capsule,delayed 40 mg PO DAILY GERD 07/19/2401/17 History release insulin glargine 100 unit/mL (3 30 unit (0.3 mL) subcut QAM #27 mL 08/02/24 01/17/25 Rx mL) subcutaneous pen (Basaglar KwikPen U-100 Insulin) dicyclomine 10 mg capsule 10 mg PO TID PRN abdominal pain 7 11/07/24 01/17/25 Rx days #21 caps zinc acetate 25 mg (zinc) capsule 25 mg PO DAILY 11/07/24 01/17/25 History (Galzin) mecobalamin (vitamin B12) 500 mcg mcg PO 01/07/25 01/17/25 Hi (more content not included)... Normal [facility] Basic Metabolic Profile (BMP )on 01-07-2025 BUN/CRE 11.7 RATIO Normal - [facility] Comment on above: Performed By: #### L 502.0250, L500.4100, L503.6620, L506.1000 #### [facility] [address] [place], [place], [id number] Calcium [Mass/Vol] 9.3 mg/dL Normal 7.6-11.0 [facility] Comment on above: Performed By: #### L 502.0250, L500.4100, L503.6620, L506.1000 #### [facility] [address] [place], [address] Chloride [Moles/Vol] 99 mmol/L Normal 98-108 [facility] Comment on above: Performed By: #### L 502.0250, L500.4100, L503.6620, L506.1000 #### [facility] [address] [place], [address] CO2 [Moles/Vol] 21.1 mmol/L Normal 21.0-32.0 [facility] Comment on above: Performed By: #### L 502.0250, L500.4100, L503.6620, L506.1000 #### [facility] [address] [place], [address] Creatinine [Mass/Vol] 0.74 mg/dL Normal 0.70-1.20 [facility] Comment on above: Performed By: #### L 502.0250, L500.4100, L503.6620, L506.1000 #### [facility] [address] [place], [address] GAP 15 Normal 5-15 [facility] Comment on above: Performed By: #### L 502.0250, L500.4100, L503.6620, L506.1000 #### [facility] [address] [place], [address] GFR/1.73 sq M.predicted among non-blacks MDRD (S/P/Bld) [Vol rate/Area] 93 mL/min/{1.73_m2} Normal >60 [facility] Comment on above: Result Comment: mL/m in/1.73m2 CKD-EPI Creatinine Equation (2020) Performed By: #### L 502.0250, L500.4100, L503.6620, L506.1000 #### [facility] [address] [place], [address] Glucose [Mass/Vol] 284 mg/dL High 70-99 [facility] Comment on above: Performed By: #### L 502.0250, L500.4100, L503.6620, L506.1000 #### [facility] [address] [place], [address] Potassium [Moles/Vol] 3.9 mmol/L Normal 3.3-5.1 [facility] Comment on above: Result Comment: Hemo lysis present, Results??could be affected. ?? Performed By: #### L 502.0250, L500.4100, L503.6620, L506.1000 #### [facility] [address] [place], [address] Sodium [Moles/Vol] 136 mmol/L Normal 133-145 [facility] Comment on above: Performed By: #### L 502.0250, L500.4100, L503.6620, L506.1000 #### [facility] [address] [place], [address] Urea nitrogen [Mass/Vol] 9 mg/dL Normal 4-19 [facility] Comment on above: Performed By: #### L 502.0250, L500.4100, L503.6620, L506.1000 #### [facility] [address] [place], [address] CBC W/Diff, Automatedon 06-0 6-2024 Absolute Lymph 3.11 X10 3/uL Normal 0.83-4.51 [facility] Comment on above: Performed By: #### L 502.0250, L500.4100, L503.6620, L506.1000 #### [facility] [address] [place], [address] Absolute Neut 4.8 X10 3/uL Normal 2.0-7.7 [facility] Comment on above: Performed By: #### L 502.0250, L500.4100, L503.6620, L506.1000 #### [facility] [address] [place], [address] Basophils/100 WBC (Bld) 0.7 % Normal 0-1 [facility] Comment on above: Performed By: #### L 502.0250, L500.4100, L503.6620, L506.1000 #### [facility] [address] [place], [address] Eosinophils/100 WBC (Bld) 2.2 % Normal 0-5 [facility] Comment on above: Performed By: #### L 502.0250, L500.4100, L503.6620, L506.1000 #### [facility] [address] [place], [address] Erythrocyte distribution width (RBC) [Ratio] 13.5 % Normal 11.6-14.6 [facility] Comment on above: Performed By: #### L 502.0250, L500.4100, L503.6620, L506.1000 #### [facility] [address] [place], [address] Hematocrit (Bld) [Volume fraction] 49.2 % High 37-47 [facility] Comment on above: Performed By: #### L 502.0250, L500.4100, L503.6620, L506.1000 #### [facility] [address] [place], [address] Hemoglobin (Bld) [Mass/Vol] 16.5 g/dL High 12.0-15.0 [facility] Comment on above: Performed By: #### L 502.0250, L500.4100, L503.6620, L506.1000 #### [facility] [address] [place], [address] IG% 0.200 Normal 0.0-0.9 [facility] Comment on above: Result Comment: IG% - Immature Granulocytes (promyelocytes, myelocytes and metamyelocytes) > 1% indicates that a LEFT SHIFT is Present. Performed By: #### L 502.0250, L500.4100, L503.6620, L506.1000 #### [facility] [address] [place], [address] Lymphocytes/100 WBC (Bld) 35.3 % Normal 19-41 [facility] Comment on above: Performed By: #### L 502.0250, L500.4100, L503.6620, L506.1000 #### [facility] [address] [place], [address] MCH (RBC) [Entitic mass] 30.2 pg Normal 27.0-32.0 [facility] Comment on above: Performed By: #### L 502.0250, L500.4100, L503.6620, L506.1000 #### [facility] [address] [place], [address] MCHC (RBC) [Mass/Vol] 33.5 g/dL Normal 32-36 [facility] Comment on above: Performed By: #### L 502.0250, L500.4100, L503.6620, L506.1000 #### [facility] [address] [place], [address] MCV (RBC) [Entitic vol] 89.9 fL Normal 81-99 [facility] Comment on above: Performed By: #### L 502.0250, L500.4100, L503.6620, L506.1000 #### [facility] [address] [place], [address] Monocytes/100 WBC (Bld) 6.7 % Normal 0-10 [facility] Comment on above: Performed By: #### L 502.0250, L500.4100, L503.6620, L506.1000 #### [facility] [address] [place], [address] Neutrophils/100 WBC (Bld) 54.9 % Normal 47-70 [facility] Comment on above: Performed By: #### L 502.0250, L500.4100, L503.6620, L506.1000 #### [facility] [address] [place], [address] Nucleated RBC (Bld) [#/Vol] 0 10*3/uL Normal 0-5 [facility] Comment on above: Performed By: #### L 502.0250, L500.4100, L503.6620, L506.1000 #### [facility] [address] [place], [address] Platelet mean volume (Bld) [Entitic vol] 8.9 fL Normal 6.2-12.0 [facility] Comment on above: Performed By: #### L 502.0250, L500.4100, L503.6620, L506.1000 #### [facility] [address] [place], [address] Platelets (Bld) [#/Vol] 345 10*3/uL Normal 150-450 [facility] Comment on above: Performed By: #### L 502.0250, L500.4100, L503.6620, L506.1000 #### [facility] [address] [place], [address] RBC (Bld) [#/Vol] 5.47 10*6/uL High 4.2-5.4 [facility] Comment on above: Performed By: #### L 502.0250, L500.4100, L503.6620, L506.1000 #### [facility] [address] [place], [address] RDW SD 44.9 fl High 35.1-43.9 [facility] Comment on above: Performed By: #### L 502.0250, L500.4100, L503.6620, L506.1000 #### [facility] [address] [place], [address] WBC (Bld) [#/Vol] 8.8 10*3/uL Normal 4.4-11.0 [facility] Comment on above: Performed By: #### L 502.0250, L500.4100, L503.6620, L506.1000 #### [facility] [address] [place], [address] Cardiology Visit Reporton Cardiology Visit Report [facility] [address] [place], [place] [address] OFFICE VISIT Date of Service: 01/07/25 MR#: [id number] Acct: [id number] Name: LEEANNABOOGIECHRISSY Louie Rep #: [id number] : 1965 Provider: NADIA issa Age/Sex: 59/F Location: [facility] [place] Status: Signed HPI HPI History of Present Illness Details: The patient is a 59-year-old white female who presents to the office today for a cardiovascular follow-up visit. She has been evaluated by Dr. Roberts in November 2022. At that time she had presented with chest discomfort shortness of breath and dyspnea on exertion. She underwent left heart catheterization which showed mild coronary artery disease in the left ventricular ejection fraction of 65% with normal wall motion. The only lesion she had was a 20% ostial LAD lesion. There is no significant valvular heart disease documented. The patient does have a history of hyperlipidemia but she is intolerant/allergic to all statins. She is on Zetia. The patient is also diabetic on insulin. She also has a history of hypertension and complains that she had syncopal spells on medical therapy in the past. She is tolerating losartan which is controlling her blood pressure well. From a cardiac standpoint, the patient is doing well. She does have daily palpitations. She describes this as a fluttering sensation that goes deep into her chest, takes her breath away, she does have occasional chest pain with this. She denies any chest pain, pressure or heaviness. She does have SOB with exertion and at rest. She denies Orthopnea, and PND. She does not have bleeding issues; no blood in urine, stool, or nosebleeds. She does acknowledge a decrease in energy level. She denies myalgias, or claudication. She does not have edema, or sudden weight gain. She does have dizziness/lightheadedness. She denies syncopal or near syncopal episodes, and headaches. Intake Vital Signs 01/07/24 10:41 01/07/25 07:04 Height 5 ft 8 in 5 ft 8 in Weight: 207 lb BMI 31.4 BP 122/85 H Blood Pressure Location Rt brachial Position Sitting Respiration 18 Pulse 96 Pulse Source Monitor Pulse Oximetry (%) 96 Intake Visit Reasons: 1 Y FU Grain Operator Required: No Is patient in pain?: Yes Allergies clindamycin Allergy (Mild, Verified 01/07/25 10:16) Rash adalimumab (From Humira) Allergy (Verified 01/07/25 10:16) Unknown amoxicillin trihydrate (From Augmentin) Allergy (Verified 01/07/25 10:16) Unknown codeine Allergy (Verified 01/07/25 10:16) Itching etanercept (From Enbrel) Allergy (Verified 01/07/25 10:16) Unknown leflunomide (From Arava) Allergy (Verified 01/07/25 10:16) Other metoprolol tartrate (From Lopressor) Allergy (Verified 01/07/25 10:16) Unknown morphine sulfate (From Embeda) Allergy (Verified 01/07/25 10:16) Unknown naltrexone HCl (From Embeda) Allergy (Verified 01/07/25 10:16) Unknown oxymorphone (Oxymorphone) Allergy (Verified 01/07/25 10:16) Unknown pioglitazone HCl (From Actos) Allergy (Verified 01/07/25 10:16) Other pneumococcal 23-valent polysacchari (From Pneumovax 23) Allergy (Verified 01/07/25 10:16) Unknown potassium clavulanate (From Augmentin) Allergy (Verified 01/07/25 10:16) Unknown Pxxnxdw-LXT-FkW Reductase Inhibitor (Znqofla-Nfn-Iiz Reductase Inhibitor) Allergy (Verified 01/07/25 10:16) Unknown Sulfa (Sulfonamide Antibiotics) Allergy (Verified 01/07/25 10:16) Anaphylaxis sulfamethoxazole (From Bactrim) Allergy (Verified 01/07/25 10:16) Anaphylaxis telithromycin (From Ketek) Allergy (Verified 01/07/25 10:16) Unknown tramadol HCl (From Ultram) Allergy (Verified 01/07/25 10:16) Unknown trimethoprim (From Bactrim) Allergy (Verified 01/07/25 10:16) Anaphylaxis Medications ???Medication ???Instructions ???Recorded ???Confirmed ???Type ezetimibe 10 mg tablet 10 mg PO DAILY CHOLESTEROL #90 tab s 04/19/21 01/07/25 Rx diphenhydramine HCl 25 mg capsule 25 mg PO DAILY PRN allergy sympto ms 03/28/22 01/07/25 History duloxetine 60 mg capsule,delayed 120 mg (2 x 60 mg) PO DAILY 01/07/25 Rx release ANXIETY 30 days #60 caps albuterol sulfate 90 mcg/actuation 2 puff inhalation Q4H PRN PRN 01/07/25 Rx aerosol inhaler (Ventolin HFA) Wheezing or shortness of breath #1 inh pen needle, diabetic 32 gauge x #100 ea 03/05/23 01/07/25 Rx 5/32 (BD Ultra-Fine Thais Pen Needle) alcohol swabs 1 pad topical 4X/DAY #200 ea 04/2801/07/25 Rx ondansetron 4 mg disintegrating 4 mg PO Q6H PRN nausea and 3 01/07/25 Rx tablet vomiting #10 tabs allopurinol 100 mg tablet 100 mg PO DAILY 06/18/23 01/07/25 History pen needle, diabetic 32 gauge x #100 ea 10/23/23 01/07/25 Rx 5/32 (BD Ultra-Fine Thais Pen Needle) lorazepam 1 mg tablet 0.5 mg (1/2 x 1 mg) P (more content not included)... Normal [facility] L503.7505on 01-07-2025 proBNP < 36 Normal <=900 [facility] Comment on above: Result Comment: Hear t Failure Unlikely: < 300 pg/mL Heart Failure Likely < 50 Years: > 450 pg/mL 50-75 Years: > 900 pg/mL >75 Years: > 1800 pg/mL Performed By: #### L 502.0250, L500.4100, L503.6620, L506.1000 #### [facility] [address] [place], [place], [id number] Thyroid Stim Hormone (TSH)on 01-07-2025 TSH 2.180 uIU/mL Normal 0.300-4.200 [facility] Comment on above: Performed By: #### L 502.0250, L500.4100, L503.6620, L506.1000 #### [facility] [address] [place], [place], [id number] XR SHOULDER MINIMUM 2 VIEWS LEFTon 01-07-2025 XR SHOULDER MINIMUM 2 VIEWS LEFT ORIGINAL EXAMINATION: XR left shoulder two views 01/06/2025 12:49 pm COMPARISON: None HISTORY: ORDERING SYSTEM PROVIDED HISTORY: Reason for Exam: NECK AND L SHOULDER PAIN, FINDINGS: No acute fracture, dislocation, lytic process or periosteal reaction is seen in the visualized bones and joints. No erosive type of arthritis. No periarticular soft tissue calcification. Glenohumeral and AC joints show no degenerative changes. Normal subacromial space. IMPRESSION: No acute skeletal abnormality is seen. . Interpreted by: Armaan Crane MD Preliminary Report By: Armaan Crane MD Electronically signed By Armaan Crane MD Dictated Date: 01/07/2025 4:06:11 PM Prelim Date: 01/07/2025 4:06:46 PM Sign Date: 01/07/2025 4:06:46 PM Ordering Provider: JEROME REFERRING [facility] XR SPINE CERVICAL W/ OBLIQUE S 5 VIEWSon 01-07-2025 XR SPINE CERVICAL W/ OBLIQUES 5 VIEWS ORIGINAL EXAMINATION: FIVE XRAY VIEWS OF THE CERVICAL SPINE01/06/2025 12:52 pm AP lateral obliques open-mouth COMPARISON: 11/07/2023 HISTORY: ORDERING SYSTEM PROVIDED HISTORY: Reason for Exam: NECK AND L SHOULDER PAIN, FINDINGS: There is previous instrumented interbody fusion of C3 through C6 levels with intact hardware and no hardware complication. Alignment in the cervical spine is within normal limits. There is no significant disc space narrowing in the remainder of the cervical spine. No other significant degenerative changes. Oblique views show no high-grade foraminal stenosis. Normal C1-C2 and prevertebral soft tissue space. IMPRESSION: Postop changes without hardware complication. No significant degenerative changes. Interpreted by: Armaan Crane MD Preliminary Report By: Armaan Crane MD Electronically signed By Armaan Crane MD Dictated Date: 01/07/2025 4:01:46 PM Prelim Date: 01/07/2025 4:03:16 PM Sign Date: 01/07/2025 4:03:16 PM Ordering Provider: PHY REFERRING Normal [facility] CBC W/Diff, Automatedon 05-2 Absolute Lymph 2.10 X10 3/uL Normal 0.83-4.51 [facility] Comment on above: Performed By: #### L 500.4050, L100.0100, L501.6710, L101.9900 ####[facility] [address] [place], [address] Absolute Neut 5.1 X10 3/uL Normal 2.0-7.7 [facility] Comment on above: Performed By: #### L 500.4050, L100.0100, L501.6710, L101.9900 ####[facility] [address] [place], [address] Basophils/100 WBC (Bld) 0.9 % Normal 0-1 [facility] Comment on above: Performed By: #### L 500.4050, L100.0100, L501.6710, L101.9900 ####[facility] [address] [place], [address] Eosinophils/100 WBC (Bld) 1.6 % Normal 0-5 [facility] Comment on above: Performed By: #### L 500.4050, L100.0100, L501.6710, L101.9900 ####[facility] [address] [place], [address] Erythrocyte distribution width (RBC) [Ratio] 13.1 % Normal 11.6-14.6 [facility] Comment on above: Performed By: #### L 500.4050, L100.0100, L501.6710, L101.9900 ####[facility] [address] [place], [address] Hematocrit (Bld) [Volume fraction] 48.1 % High 37-47 [facility] Comment on above: Performed By: #### L 500.4050, L100.0100, L501.6710, L101.9900 ####[facility] [address] [place], [address] Hemoglobin (Bld) [Mass/Vol] 16.1 g/dL High 12.0-15.0 [facility] Comment on above: Performed By: #### L 500.4050, L100.0100, L501.6710, L101.9900 ####[facility] [address] [place], [address] IG% 0.200 Normal 0.0-0.9 [facility] Comment on above: Result Comment: IG% - Immature Granulocytes (promyelocytes, myelocytes and metamyelocytes) > 1% indicates that a LEFT SHIFT is Present. Performed By: #### L 500.4050, L100.0100, L501.6710, L101.9900 ####[facility] [address] [place], [address] Lymphocytes/100 WBC (Bld) 25.8 % Normal 19-41 [facility] Comment on above: Performed By: #### L 500.4050, L100.0100, L501.6710, L101.9900 ####[facility] [address] [place], [address] MCH (RBC) [Entitic mass] 30.1 pg Normal 27.0-32.0 [facility] Comment on above: Performed By: #### L 500.4050, L100.0100, L501.6710, L101.9900 ####[facility] [address] [place], [address] MCHC (RBC) [Mass/Vol] 33.5 g/dL Normal 32-36 [facility] Comment on above: Performed By: #### L 500.4050, L100.0100, L501.6710, L101.9900 ####[facility] [address] [place], [address] MCV (RBC) [Entitic vol] 89.9 fL Normal 81-99 [facility] Comment on above: Performed By: #### L 500.4050, L100.0100, L501.6710, L101.9900 ####[facility] [address] [place], [address] Monocytes/100 WBC (Bld) 8.2 % Normal 0-10 [facility] Comment on above: Performed By: #### L 500.4050, L100.0100, L501.6710, L101.9900 ####[facility] [address] [place], [address] Neutrophils/100 WBC (Bld) 63.3 % Normal 47-70 [facility] Comment on above: Performed By: #### L 500.4050, L100.0100, L501.6710, L101.9900 ####[facility] [address] [place], [address] Nucleated RBC (Bld) [#/Vol] 0 10*3/uL Normal 0-5 [facility] Comment on above: Performed By: #### L 500.4050, L100.0100, L501.6710, L101.9900 ####[facility] [address] [place], [address] Platelet mean volume (Bld) [Entitic vol] 9.0 fL Normal 6.2-12.0 [facility] Comment on above: Performed By: #### L 500.4050, L100.0100, L501.6710, L101.9900 ####[facility] [address] [place], [address] Platelets (Bld) [#/Vol] 347 10*3/uL Normal 150-450 [facility] Comment on above: Performed By: #### L 500.4050, L100.0100, L501.6710, L101.9900 ####[facility] [address] [place], [address] RBC (Bld) [#/Vol] 5.35 10*6/uL Normal 4.2-5.4 [facility] Comment on above: Performed By: #### L 500.4050, L100.0100, L501.6710, L101.9900 ####[facility] [address] [place], [address] RDW SD 42.2 fl Normal 35.1-43.9 [facility] Comment on above: Performed By: #### L 500.4050, L100.0100, L501.6710, L101.9900 ####[facility] [address] [place], [address] WBC (Bld) [#/Vol] 8.1 10*3/uL Normal 4.4-11.0 [facility] Comment on above: Performed By: #### L 500.4050, L100.0100, L501.6710, L101.9900 ####[facility] [address] [place], [address] CRPon 12-23-2024 C-REACTIVE PROT 13.60 mg/L High 0.0-3.0 [facility] Comment on above: Performed By: #### L 500.4050, L100.0100, L501.6710, L101.9900 ####[facility] [address] [place], [address] Comprehensive Metabolic Prof akon 12-23-2024 Albumin [Mass/Vol] 4.1 g/dL Normal 3.5-5.0 [facility] Comment on above: Performed By: #### L 500.4050, L100.0100, L501.6710, L101.9900 ####[facility] [address] [place], [address] Albumin/Globulin [Mass ratio] 1.3 {ratio} Normal 0.9-2.4 [facility] Comment on above: Performed By: #### L 500.4050, L100.0100, L501.6710, L101.9900 ####[facility] [address] [place], [address] ALK PHOS 154 U/L High 35-104 [facility] Comment on above: Performed By: #### L 500.4050, L100.0100, L501.6710, L101.9900 ####[facility] [address] [place], [address] ALT [Catalytic activity/Vol] 95 U/L High <=34 [facility] Comment on above: Performed By: #### L 500.4050, L100.0100, L501.6710, L101.9900 ####[facility] [address] [place], [address] AST [Catalytic activity/Vol] 121 U/L High <=31 [facility] Comment on above: Performed By: #### L 500.4050, L100.0100, L501.6710, L101.9900 ####[facility] [address] [place], [address] Bilirubin [Mass/Vol] 0.37 mg/dL Normal 0.00-1.30 [facility] Comment on above: Performed By: #### L 500.4050, L100.0100, L501.6710, L101.9900 ####[facility] [address] [place], [address] BUN/CRE 11.5 RATIO Normal 10-20 [facility] Comment on above: Performed By: #### L 500.4050, L100.0100, L501.6710, L101.9900 ####[facility] [address] [place], [address] Calcium [Mass/Vol] 8.6 mg/dL Normal 7.6-11.0 [facility] Comment on above: Performed By: #### L 500.4050, L100.0100, L501.6710, L101.9900 ####[facility] [address] [place], [address] Chloride [Moles/Vol] 101 mmol/L Normal 98-108 [facility] Comment on above: Performed By: #### L 500.4050, L100.0100, L501.6710, L101.9900 ####[facility] [address] [place], [address] CO2 [Moles/Vol] 16.7 mmol/L Low 21.0-32.0 [facility] Comment on above: Performed By: #### L 500.4050, L100.0100, L501.6710, L101.9900 ####[facility] [address] [place], [address] Creatinine [Mass/Vol] 0.68 mg/dL Low 0.70-1.20 [facility] Comment on above: Performed By: #### L 500.4050, L100.0100, L501.6710, L101.9900 ####[facility] [address] [place], [address] ECRCL 107.84 ml/min Normal 50-250 [facility] Comment on above: Performed By: #### L 500.4050, L100.0100, L501.6710, L101.9900 ####[facility] [address] [place], [address] GAP 18 High 5-15 [facility] Comment on above: Performed By: #### L 500.4050, L100.0100, L501.6710, L101.9900 ####[facility] [address] [place], [address] GFR/1.73 sq M.predicted among non-blacks MDRD (S/P/Bld) [Vol rate/Area] 101 mL/min/{1.73_m2} Normal >60 [facility] Comment on above: Result Comment: mL/m in/1.73m2 CKD-EPI Creatinine Equation (2020) Performed By: #### L 500.4050, L100.0100, L501.6710, L101.9900 ####[facility] [address] [place], [address] Globulin (S) [Mass/Vol] 3.2 g/dL Normal 2.2-4.2 [facility] Comment on above: Performed By: #### L 500.4050, L100.0100, L501.6710, L101.9900 ####[facility] [address] [place], [address] Glucose [Mass/Vol] 299 mg/dL High 70-99 [facility] Comment on above: Performed By: #### L 500.4050, L100.0100, L501.6710, L101.9900 ####[facility] [address] [place], [address] Potassium [Moles/Vol] 3.1 mmol/L Low 3.3-5.1 [facility] Comment on above: Performed By: #### L 500.4050, L100.0100, L501.6710, L101.9900 ####[facility] [address], [address] Sodium [Moles/Vol] 135 mmol/L Normal 133-145 [facility] Comment on above: Performed By: #### L 500.4050, L100.0100, L501.6710, L101.9900 ####[facility] [address], [address] T PROT 7.3 g/dL Normal 5.9-8.4 [facility] Comment on above: Performed By: #### L 500.4050, L100.0100, L501.6710, L101.9900 ####[facility] [address] [place], [address] Urea nitrogen [Mass/Vol] 8 mg/dL Normal 4-19 [facility] Comment on above: Performed By: #### L 500.4050, L100.0100, L501.6710, L101.9900 ####[facility] [address] [place], [address] Emergency Department Summary on 12-23-2024 Emergency Department Summary [facility] Medical Records Department [address] [place] [address] Emergency Department Summary 12/23/24 MR#: [id number] Acct: [id number] Name: CHRISSY LAY Rep #: [id number] : 1965 59 From: Gorge Hoffman DO PCP: Chantale Ramsey NP-C Status:DEP ER Location: ED HPI History of Present Illness Chief Complaint: Allergic Reaction Detail of Chief Complaint: Possible allergic reaction to medication Informant: patient Narrative Narrative: Patient presents to the emergency department with concern for possible allergic reaction to medication. Patient states that she started lamotrigine a week and a half ago prescribed by her psychiatrist. Patient few days later started having discomfort to her tongue and a burning sensation in her groin. She complains of headache and bodyaches. She called her primary care physician today and was told to come to the emergency department to be evaluated for Romero-Sim syndrome related to the lamotrigine. She denies any fevers. She just does not feel well. [facility] Medical History Osteoarthritis of left knee Left knee pain Osteoarthritis of right knee Contusion of right chest wall Contusion of right shoulder Contusion of forehead History of diabetes mellitus PTSD (post-traumatic stress disorder) Wears glasses Marijuana use Diabetes Arthritis Easy bruising High cholesterol Restless legs Injury of head and neck Difficulty swallowing Gastric reflux Non-smoker History of stress test History of echocardiogram Cardiology follow-up encounter SCAHA (generalized anxiety disorder) Strain of right hip History of colon polyps Acute otitis externa of left ear Acute sinusitis, unspecified TIA (transient ischemic attack) Episode of syncope Urinary tract infection with hematuria Contusion of right ankle Contusion of right foot GI bleed Positive PPD, treated Pneumonia Bronchitis Statin intolerance Dyspnea on exertion Chest pain Near syncope Orthostatic hypotension Hyperlipidemia GERD (gastroesophageal reflux disease) RSD (reflex sympathetic dystrophy) Essential hypertension Diabetes mellitus type II, controlled Strain of unspecified muscle, fascia and tendon at shoulder and upper arm level, right arm, initial encounter Asthma Shoulder pain Hemorrhoids Nausea vomiting Depressed Asthma Home Medications ???Medication ???Instructions ???Recorded ???Last Taken ???Type ezetimibe 10 mg tablet 10 mg PO DAILY CHOLESTEROL #90 tab s 04/19/21 Unknown Rx diphenhydramine HCl 25 mg capsule 25 mg PO DAILY PRN allergy sympto ms 03/28/22 Unknown History duloxetine 60 mg capsule,delayed 120 mg (2 x 60 mg) PO DAILY Unknown Rx release ANXIETY 30 days #60 caps albuterol sulfate 90 mcg/actuation 2 puff inhalation Q4H PRN PRN Unknown Rx aerosol inhaler (Ventolin HFA) Wheezing or shortness of breath #1 inh pen needle, diabetic 32 gauge x #100 ea 03/05/23 Unknown Rx 32 (BD Ultra-Fine Thais Pen Needle) alcohol swabs 1 pad topical 4X/DAY #200 ea 04/28 Unknown Rx ondansetron 4 mg disintegrating 4 mg PO Q6H PRN nausea and 3 Unknown Rx tablet vomiting #10 tabs meclizine 25 mg tablet 25 mg PO TID PRN dizziness #30 tab s 05/23/23 Unknown Rx allopurinol 100 mg tablet 100 mg PO DAILY 06/18/23 Unknown H istory pen needle, diabetic 32 gauge x #100 ea 10/23/23 Unknown Rx (BD Ultra-Fine Thais Pen Needle) lorazepam 1 mg tablet 0.5 mg (1/2 x 1 mg) PO DAILY PRN 0 12/03/23 Unknown Rx Anxiety #30 tabs ibuprofen 800 mg tablet 800 mg PO DAILY 12/24/23 Unknown H istory insulin aspart U-100 100 unit/mL 18 sliding scale dose subcut TID 0 12/24/23 Unknown History (3 mL) subcutaneous pen (Novolog FlexPen U-100 Insulin aspart) hydroxyzine HCl 25 mg tablet 25 mg PO DAILY PRN anxiety 4 Unknown History colchicine 0.6 mg capsule 0.6 mg PO QDAY PRN Gout 04/21/24 U nknown History furosemide 20 mg tablet 20 mg PO QDAY 04/21/24 Unknown His tory losartan 100 mg tablet 100 mg PO QDAY 04/21/24 Unknown Hi story omega-3 acid ethyl esters 1 gram 1 cap PO BID #180 caps 04/26/24 Un known Rx capsule flash glucose sensor (FreeStyle #2 ea 06/21/24 Unknown Rx Tanmay 2 Sensor kit) cholecalciferol (vitamin D3) 50 50 mcg PO QDAY #90 caps 07/19/24 U nknown Rx mcg (2,000 unit) capsule omeprazole 20 mg capsule,delayed 40 mg PO DAILY GERD 07/19/24 Unkno wn History release insulin glargine 100 unit/mL (3 30 unit (0.3 mL) subcut QAM #27 mL 08/02/24 Unknown Rx mL) subcutaneous pen (Basaglar KwikPen U-100 Insulin) brexpiprazole 0.5 mg tablet 0.5 mg PO QDAY 10/18/24 Unknown Hi story (Rexulti) dicyclomine 10 mg capsule 10 mg PO TID PRN abdomin (more content not included)... Normal [facility] Erythrocyte Sed Rateon 12-23 SED RATE 29 mm/hr Normal 0-30 [facility] Comment on above: Performed By: #### L 500.4050, L100.0100, L501.6710, L101.9900 ####[facility] [address] [place], [address] M100.678on 12-23-2024 M100.678 Normal Reference Ran ge = Negative FLUABV+SARS-CoV-2+RSV Pnl Resp JALIL+probe GeneXpert Instrument, PCR method SARS-CoV-2 (COVID 19) Negative INFLUENZA A Negative INFLUENZA B Negative RSV PCR Negative Normal [facility] Comment on above: Performed By: #### M 100.678 ####[facility] [address] [place], [address] Urinalysis, Completeon 12-23 BACTERIA 1+ /hpf Normal None Seen [facility] Comment on above: Order Comment: CLEAN CATCH Performed By: #### L 502.0250, L500.4100, L503.6620, L506.1000 #### [facility] [address] [place], [address] EPI,SQUAMOUS 0-5 SEEN Normal 5-10 [facility] Comment on above: Order Comment: CLEAN CATCH Performed By: #### L 502.0250, L500.4100, L503.6620, L506.1000 #### [facility] [address] [place], [address] WBC 0-5 SEEN Normal 0-5 [facility] Comment on above: Order Comment: CLEAN CATCH Performed By: #### L 502.0250, L500.4100, L503.6620, L506.1000 #### [facility] [address] [place], [address] Mucus Ql (Urine sed) 0 SEEN Normal [facility] Comment on above: Order Comment: CLEAN CATCH Performed By: #### L 502.0250, L500.4100, L503.6620, L506.1000 #### [facility] [address] [place], [address] RBC 0 SEEN Normal 0-5 [facility] Comment on above: Order Comment: CLEAN CATCH Performed By: #### L 502.0250, L500.4100, L503.6620, L506.1000 #### [facility] [address] [place], [address] OT Functional Capacity Evalo n 12-21-2024 OT Functional Capacity Eval [facility] [address] [place] [address] / REHABILITATION SERVICES INITIAL EVALUATION MR#: [id number] Acct: [id number] Name: CHRISSY LAY Rep #: [id number] : 1965 59 From: Lula Calvert Referring DrAinya: Chantale Ramsey Status: REG RC R Insurance: [facility] Date: SELF PAY INSURANCE Task Lift Floor (Occasional 1-33% of Day): 0 Floor (Frequent 34-66% of Day): 0 Floor (Constant 67-100% of Day): 0 Floor PDL: Sedentary Knee (Occasional 1-33% of Day): 0 Knee (Frequent 34-66% of Day): 0 Knee (Constant 67-100% of Day): 0 Knee PDL: Sedentary Waist (Occasional 1-33% of Day): 15lb Waist (Frequent 34-66% of Day): 7.5lb Waist (Constant 67-100% of Day): 3.16 Waist PDL: Sedentary-Light Shoulder (Occasional 1-33% of Day): 0 Shoulder (Frequent 34-66% of Day): 0 Shoulder (Constant 67-100% of Day): 0 Shoulder PDL: Sedentary Overhead (Occasional 1-33% of Day): 0 Overhead (Frequent 34-66% of Day): 0 Overhead (Constant 67-100% of Day): 0 Overhead PDL: Sedentary Work Activity/Posture Bending: No Ablility (0% of day) Squatting: No Ablility (0% of day) Kneeling: No Ablility (0% of day) Reaching out: No Ablility (0% of day) Reaching up: Occasional Ability (1-33% of day) Sitting: Frequent Ability (34-66% of day) Walking: Occasional Ability (1-33% of day) Standing: Occasional Ability (1-33% of day) Reference Reference: Duration Sedentary Sedentary Light Light Light Medium Medium Medium Heavy Very Heavy Heavy Occasional (0-33% of day) Frequent (34-66% of day) Constant (67-100% of day) 10 # Negligible Negligible 15 # 8 # Negligible 20 # 10# Negli. 35 # 18 # 7 # 50 # 25 # 10 # 75 # 100 # >100 # 38 # 50 # >50 # 15 # 20 # >20 # Patient Information Height: 5 ft 8 in Weight:: 92.9 kg Hand Dominance: Right BP (Medication Use/Usual Values per pt report): pt reports inconsistent BP and daily BP medication Medical History Medical History Including Restrictions: Pt has long history of CRPS following a traumatic L ankle fracture in 2005; HTN, uncontrolled DMII, cervical fusion C2-C6 (2020); OA; gout Diagnoses Diagnoses: CRPS - G90.5 Symptoms Symptoms: Constant all over pain; R side LE numbness and stinging; arthritis pain in bilateral hands; intermittent dizziness and shortness of breath; pt has bilateral shoulder pain and reported tear in L rotator cuff Pain Pain: 10/10 all over, constant Marci Pain questionnaire: 43/78 Work History 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 Pt reports fear of falling and repeatedly mentions how this evaluation will cause her additional pain. Per pt, lives alone in 1 story home with 6 entry steps with a bilateral handrail; ADLS ADLS: Pt has been able to manage ADLs with increased time and pain; pt has limited driving to/from work - about 5 minutes. Pt uses microwave meals and eats prepared foods. Pt has assist with cleaning tasks. Pt has assist with grocery shopping. Pt has 6 entry steps with a unilateral handrail and has been struggling to navigate the entry steps. Pt is very limited in household tasks and takes frequent breaks with all ADLs and iADLs. Physical Examination Physical Examination: Pt appears well, some tremors throughout movement tasks, which pt reports is her baseline. Pt exhibits frequent facial grimacing throughout evaluation d/t pain. Baseline: HR - 100 SPO2 - 96 ROM: ROM: RUE - limited flexion to 90 degrees; limited internal/external rotation LUE - WNL Pt has functional range of motion in bilateral elbows, forearms, wrists, hands, and fingers. Strength: FET Peak used to measure strength R elbow flexion: 3.7lb extension: 10.1 R shoulder flexion: 3.1lb external rotation: 0lb L elbow flexion: 9.4lb extension: 8.7lb L shoulder flexion: 7.6lb external rotation: 7lb R knee flexion: 15.5lb extension: 17.7lb R hip flexion: 16.1lb L knee flexion: 17.9lb extension: 18.3lb L hip flexion: 9.3lb HR: 102 SPO2: 97 Right Management Specialist Strength Average: 30.00 Right Management Specialist Strength Percentile: 0th Left Management Specialist Strength Average: 26.66 Left Management Specialist Strength Percentile: 0th Right Lateral Pinch Average: 4.00 Right Lateral Pinch Percentile: 0th Left Lateral Pinch Average: 3.66 Left Lateral Pinch Percentile: 0th Right Tripod Pinch Average: 2.00 Right Tripod Pinch Percentile: 0th Left Tripod Pinch Average: 2.33 Left Tripod Pinch Percentile: 0th Sensation: 3.61 monofiliment Fine Motor: 9 hold peg R hand Trial 1 - 36.6 Trial 2 - 30.6 Trial 3 - 34 Average - 33.7 0th percentile 9 hold peg L marte (more content not included)... Normal [facility] CBC-Complete Blood Cnt No Di ffon 12-01-2024 Erythrocyte distribution width (RBC) [Ratio] 12.4 % Normal 11.6-14.6 [facility] Comment on above: Performed By: #### L 503.6007 #### [facility] [address] [place], [place], [id number] Hematocrit (Bld) [Volume fraction] 45.2 % Normal 37-47 [facility] Comment on above: Performed By: #### L 503.6005 #### [facility] [address] [place], [address] Hemoglobin (Bld) [Mass/Vol] 15.3 g/dL High 12.0-15.0 [facility] Comment on above: Performed By: #### L 503.6005 #### [facility] [address] [place], [address] MCH (RBC) [Entitic mass] 30.2 pg Normal 27.0-32.0 [facility] Comment on above: Performed By: #### L 503.6005 #### [facility] [address] [place], [address] MCHC (RBC) [Mass/Vol] 33.8 g/dL Normal 32-36 [facility] Comment on above: Performed By: #### L 503.6005 #### [facility] [address] [place], [address] MCV (RBC) [Entitic vol] 89.3 fL Normal 81-99 [facility] Comment on above: Performed By: #### L 503.6005 #### [facility] [address] [place], [address] Platelet mean volume (Bld) [Entitic vol] 9.3 fL Normal 6.2-12.0 [facility] Comment on above: Performed By: #### L 503.6005 #### [facility] [address] [place], [address] Platelets (Bld) [#/Vol] 276 10*3/uL Normal 150-450 [facility] Comment on above: Performed By: #### L 503.6005 #### [facility] [address] [place], [address] RBC (Bld) [#/Vol] 5.06 10*6/uL Normal 4.2-5.4 [facility] Comment on above: Performed By: #### L 503.6005 #### [facility] [address] [place], [address] RDW SD 40.5 fl Normal 35.1-43.9 [facility] Comment on above: Performed By: #### L 503.6005 #### [facility] [address] [place], [address] WBC (Bld) [#/Vol] 8.9 10*3/uL Normal 4.4-11.0 [facility] Comment on above: Performed By: #### L 503.6005 #### [facility] [address] [place], [address] Comprehensive Metabolic Prof ilon 12-01-2024 Albumin [Mass/Vol] 3.9 g/dL Normal 3.5-5.0 [facility] Comment on above: Performed By: #### L 503.6005 #### [facility] [address] [place], [address] Albumin/Globulin [Mass ratio] 1.5 {ratio} Normal 0.9-2.4 [facility] Comment on above: Performed By: #### L 503.6005 #### [facility] [address] [place], [address] ALK PHOS 132 U/L High 35-104 [facility] Comment on above: Performed By: #### L 503.6005 #### [facility] [address] [place], [address] ALT [Catalytic activity/Vol] 77 U/L High <=34 [facility] Comment on above: Performed By: #### L 503.6005 #### [facility] [address] [place], [address] AST [Catalytic activity/Vol] 85 U/L High <=31 [facility] Comment on above: Performed By: #### L 503.6005 #### [facility] [address] [place], [address] Bilirubin [Mass/Vol] 0.33 mg/dL Normal 0.00-1.30 [facility] Comment on above: Performed By: #### L 503.6005 #### [facility] [address] [place], [address] BUN/CRE 16.9 RATIO Normal 10-20 [facility] Comment on above: Performed By: #### L 503.6005 #### [facility] [address] [place], [address] Calcium [Mass/Vol] 9.2 mg/dL Normal 7.6-11.0 [facility] Comment on above: Performed By: #### L 503.6005 #### [facility] [address] [place], [address] Chloride [Moles/Vol] 103 mmol/L Normal 98-108 [facility] Comment on above: Performed By: #### L 503.6005 #### [facility] [address] [place], [address] CO2 [Moles/Vol] 21.9 mmol/L Normal 21.0-32.0 [facility] Comment on above: Performed By: #### L 503.6005 #### [facility] [address] [place], [address] Creatinine [Mass/Vol] 0.64 mg/dL Low 0.70-1.20 [facility] Comment on above: Performed By: #### L 503.6005 #### [facility] [address] [place], [address] GAP 13 Normal 5-15 [facility] Comment on above: Performed By: #### L 503.6005 #### [facility] [address] [place], [address] GFR/1.73 sq M.predicted among non-blacks MDRD (S/P/Bld) [Vol rate/Area] 102 mL/min/{1.73_m2} Normal >60 [facility] Comment on above: Result Comment: mL/m in/1.73m2 CKD-EPI Creatinine Equation (2020) Performed By: #### L 503.6005 #### [facility] [address] [place], [address] Globulin (S) [Mass/Vol] 2.7 g/dL Normal 2.2-4.2 [facility] Comment on above: Performed By: #### L 503.6005 #### [facility] [address] [place], [address] Glucose [Mass/Vol] 313 mg/dL High 70-99 [facility] Comment on above: Performed By: #### L 503.6005 #### [facility] [address] [place], [address] Potassium [Moles/Vol] 4.1 mmol/L Normal 3.3-5.1 [facility] Comment on above: Performed By: #### L 503.6005 #### [facility] [address] [place], [address] Sodium [Moles/Vol] 138 mmol/L Normal 133-145 [facility] Comment on above: Performed By: #### L 503.6005 #### [facility] [address] [place], [address] T PROT 6.6 g/dL Normal 5.9-8.4 [facility] Comment on above: Performed By: #### L 503.6005 #### [facility] [address] [place], [address] Urea nitrogen [Mass/Vol] 11 mg/dL Normal 4-19 [facility] Comment on above: Performed By: #### L 503.6005 #### [facility] [address] [place], [address] Lipid Profileon 12-01-2024 CHOL:HDL 4.90 Normal [facility] Comment on above: Performed By: #### L 503.6005 #### [facility] [address] [place], [address] Cholesterol [Mass/Vol] 223 mg/dL High <=200 [facility] Comment on above: Result Comment: Chol esterol level, Desirable <200 mg/dL Borderline high cholesterol 200-239 mg/dL High cholesterol >=240 mg/dL Recommendations of the NCEP Adult Treatment Panel for the following risk-cutoff thresholds for the [place] population. Performed By: #### L 503.6005 #### [facility] [address] [place], [address] Cholesterol in HDL [Mass/Vol] 46 mg/dL Normal [facility] Comment on above: Result Comment: Bárbara onal Cholesterol Education Program (NCEP) guidelines: <40 mg/dL: Low HDL-cholesterol (major risk factor for CHD) >= 60 mg/dL: High HDL-cholesterol (negative risk factor for CHD) HDL-cholesterol is affected by a number of factors, e.g. smoking, exercise, hormones, sex and age. Performed By: #### L 503.6005 #### [facility] [address] [place], [address] Cholesterol in LDL [Mass/Vol] 134 mg/dL Normal [facility] Comment on above: Result Comment: Bord okaanw=481-646 mg/dL Higher Ylbq=956 mg/dL or greater Performed By: #### L 503.6005 #### [facility] [address] [place], [address] Cholesterol in VLDL [Mass/Vol] 44 mg/dL High 5-40 [facility] Comment on above: Performed By: #### L 503.6005 #### [facility] [address] [place], [address] Triglyceride [Mass/Vol] 220 mg/dL High [facility] Comment on above: Result Comment: The drugs N-Acetylcysteine and Metamizole may falsely depress this assay. Normal range: <150 mg/dL Borderline High: 150-199 mg/dL High: 200-499 mg/dL Very High: >500 mg/dL Performed By: #### L 503.6005 #### [facility] [address] [place], [address] T4 Free Directon 12-01-2024 T4 FREE DIRECT 0.80 ng/dL Normal 0.76-1.46 [facility] Comment on above: Performed By: #### L 503.6005 #### [facility] [address] [place], [address] Thyroid Stim Hormone (TSH)on 12-01-2024 TSH 1.950 uIU/mL Normal 0.300-4.200 [facility] Comment on above: Performed By: #### L 503.6005 #### [facility] [address] [place], [address] Vitamin D,25 Hydroxyon 12-01 Vitamin D 25-OH 42.9 ng/mL Normal 30-100 [facility] Comment on above: Result Comment: Maryam min D Status Deficiency: <20 ng/mL (50nmol/L) Insufficiency: 20-30 ng/mL (50-75 nmol/L) Sufficiency: 30-100 ng/mL (75-250 nmol/L) Toxicity: >100 ng/mL (>250 nmol/L) Performed By: #### L 502.0250, L500.4100, L503.6620, L506.1000 #### [facility] [address] [place], [address] Abdomen/Pelvis W IV Cont ONL Yon 11-07-2024 Abdomen/Pelvis W IV Cont ONLY [facility] Imaging Services [address] [place] [address] Abdomen/Pelvis W IV Cont ONLY MR#: [id number] Acct: [id number] Name: CHRISSY LAY Rep #: [id number] : 1965 F 59 From: Jackelyn Dhaliwal DO PCP: Chantale Ramsey NP-C Status: REG ER Study: Abdomen/Pelvis W IV Cont ONLY Date of Exam: Exam# [id number] Ordering Dr: Petty Quiroz PROCEDURE: ABDOMEN/PELVIS W IV CONT ONLY 11/07/2024 REASON FOR EXAM: ABDOMINAL PAIN TECHNIQUE: Abdomen and pelvis CT with intravenous contrast. Coronal and Sagittal reconstruction series were provided. PATIENT PREPARATION: Per protocol ORAL CONTRAST TYPE: None. AMOUNT: mL CONTRAST: Isovue 370 VOLUME: 100 mL Not Provided Gauge IV One or more dose reduction techniques were used (e.g., Automated exposure control, adjustment of the mA and/or kV according to patient size, use of iterative reconstruction technique. RADIATION DOSE SUMMARY: CTDlvol: 32 mGy DLP: 1240 mGycm COMPARISON: CT of the abdomen and pelvis dated 08/02/2022. FINDINGS: Lung bases: Unremarkable heart size is normal. No pericardial effusion. Liver: Diffuse fatty infiltration. Gallbladder: Surgically absent. Spleen: Normal size. Pancreas: Normal size without evidence of mass surrounding inflammation or ductal dilation. Adrenals: Unremarkable Kidneys: Normal renal sizes. No hydronephrosis. Bladder: Unremarkable Reproductive Organs: Surgically absent. Bowel: Evaluation of the bowel loops are limited due to lack of oral contrast. Stomach is unremarkable. No inflammatory changes of the small or large bowel. Scattered colonic diverticulosis without evidence of diverticulitis. Appendix: Surgically absent Lymph nodes: No lymphadenopathy. Vasculature: Unremarkable. Peritoneum / Retroperitoneum: No free air or free fluid. Bones: Unremarkable CT/Abdomen/Pelvis W IV Cont ONLY IMPRESSION: NO ACUTE FINDINGS AT THE ABDOMEN OR PELVIS ON CONTRAST-ENHANCED CT. Reading [facility] CC: MAIL ORDER CLERK-C Chantale Ramsey; CHEPE Singh Principal Gifts Officer: Signed Normal [facility] CBC W/Diff, Automatedon 04-0 Absolute Lymph 3.15 X10 3/uL Normal 0.83-4.51 [facility] Comment on above: Performed By: #### L 502.0250, L500.4100, L503.6620, L506.1000 #### [facility] [address] [place], [address] Absolute Neut 4.4 X10 3/uL Normal 2.0-7.7 [facility] Comment on above: Performed By: #### L 502.0250, L500.4100, L503.6620, L506.1000 #### [facility] [address] [place], [address] Basophils/100 WBC (Bld) 0.6 % Normal 0-1 [facility] Comment on above: Performed By: #### L 502.0250, L500.4100, L503.6620, L506.1000 #### [facility] [address] [place], [address] Eosinophils/100 WBC (Bld) 1.2 % Normal 0-5 [facility] Comment on above: Performed By: #### L 502.0250, L500.4100, L503.6620, L506.1000 #### [facility] [address] [place], [address] Erythrocyte distribution width (RBC) [Ratio] 13.3 % Normal 11.6-14.6 [facility] Comment on above: Performed By: #### L 502.0250, L500.4100, L503.6620, L506.1000 #### [facility] [address] [place], [address] Hematocrit (Bld) [Volume fraction] 50.8 % High 37-47 [facility] Comment on above: Performed By: #### L 502.0250, L500.4100, L503.6620, L506.1000 #### [facility] [address] [place], [address] Hemoglobin (Bld) [Mass/Vol] 16.8 g/dL High 12.0-15.0 [facility] Comment on above: Performed By: #### L 502.0250, L500.4100, L503.6620, L506.1000 #### [facility] [address], [address] IG% 0.200 Normal 0.0-0.9 [facility] Comment on above: Result Comment: IG% - Immature Granulocytes (promyelocytes, myelocytes and metamyelocytes) > 1% indicates that a LEFT SHIFT is Present. Performed By: #### L 502.0250, L500.4100, L503.6620, L506.1000 #### [facility] [address] [place], [address] Lymphocytes/100 WBC (Bld) 37.2 % Normal 19-41 [facility] Comment on above: Performed By: #### L 502.0250, L500.4100, L503.6620, L506.1000 #### [facility] [address] [place], [address] MCH (RBC) [Entitic mass] 29.8 pg Normal 27.0-32.0 [facility] Comment on above: Performed By: #### L 502.0250, L500.4100, L503.6620, L506.1000 #### [facility] [address] [place], [address] MCHC (RBC) [Mass/Vol] 33.1 g/dL Normal 32-36 [facility] Comment on above: Performed By: #### L 502.0250, L500.4100, L503.6620, L506.1000 #### [facility] [address] [place], [address] MCV (RBC) [Entitic vol] 90.2 fL Normal 81-99 [facility] Comment on above: Performed By: #### L 502.0250, L500.4100, L503.6620, L506.1000 #### [facility] [address] [place], [address] Monocytes/100 WBC (Bld) 8.6 % Normal 0-10 [facility] Comment on above: Performed By: #### L 502.0250, L500.4100, L503.6620, L506.1000 #### [facility] [address] [place], [address] Neutrophils/100 WBC (Bld) 52.2 % Normal 47-70 [facility] Comment on above: Performed By: #### L 502.0250, L500.4100, L503.6620, L506.1000 #### [facility] [address] [place], [address] Nucleated RBC (Bld) [#/Vol] 0 10*3/uL Normal 0-5 [facility] Comment on above: Performed By: #### L 502.0250, L500.4100, L503.6620, L506.1000 #### [facility] [address] [place], [address] Platelet mean volume (Bld) [Entitic vol] 9.1 fL Normal 6.2-12.0 [facility] Comment on above: Performed By: #### L 502.0250, L500.4100, L503.6620, L506.1000 #### [facility] [address] [place], [address] Platelets (Bld) [#/Vol] 301 10*3/uL Normal 150-450 [facility] Comment on above: Performed By: #### L 502.0250, L500.4100, L503.6620, L506.1000 #### [facility] [address] [place], [address] RBC (Bld) [#/Vol] 5.63 10*6/uL High 4.2-5.4 [facility] Comment on above: Performed By: #### L 502.0250, L500.4100, L503.6620, L506.1000 #### [facility] [address] [place], [address] RDW SD 44.2 fl High 35.1-43.9 [facility] Comment on above: Performed By: #### L 502.0250, L500.4100, L503.6620, L506.1000 #### [facility] [address] [place], [address] WBC (Bld) [#/Vol] 8.5 10*3/uL Normal 4.4-11.0 [facility] Comment on above: Performed By: #### L 502.0250, L500.4100, L503.6620, L506.1000 #### [facility] [address] [place], [address] Comprehensive Metabolic Prof [facility] 11-07-2024 Albumin [Mass/Vol] 4.4 g/dL Normal 3.5-5.0 [facility] Comment on above: Performed By: #### L 502.0250, L500.4100, L503.6620, L506.1000 #### [facility] [address] [place], [address] Albumin/Globulin [Mass ratio] 1.4 {ratio} Normal 0.9-2.4 [facility] Comment on above: Performed By: #### L 502.0250, L500.4100, L503.6620, L506.1000 #### [facility] [address] [place], [address] ALK PHOS 186 U/L High 35-104 [facility] Comment on above: Performed By: #### L 502.0250, L500.4100, L503.6620, L506.1000 #### [facility] [address] [place], [address] ALT [Catalytic activity/Vol] 87 U/L High <=34 [facility] Comment on above: Performed By: #### L 502.0250, L500.4100, L503.6620, L506.1000 #### [facility] [address] [place], [address] AST [Catalytic activity/Vol] 67 U/L High <=31 [facility] Comment on above: Performed By: #### L 502.0250, L500.4100, L503.6620, L506.1000 #### [facility] [address] [place], [address] Bilirubin [Mass/Vol] 0.64 mg/dL Normal 0.00-1.30 [facility] Comment on above: Performed By: #### L 502.0250, L500.4100, L503.6620, L506.1000 #### [facility] [address] [place], [address] BUN/CRE 9.0 RATIO Low 10-20 [facility] Comment on above: Performed By: #### L 502.0250, L500.4100, L503.6620, L506.1000 #### [facility] [address] [place], [address] Calcium [Mass/Vol] 9.7 mg/dL Normal 7.6-11.0 [facility] Comment on above: Performed By: #### L 502.0250, L500.4100, L503.6620, L506.1000 #### [facility] [address] [place], [address] Chloride [Moles/Vol] 95 mmol/L Low 98-108 [facility] Comment on above: Performed By: #### L 502.0250, L500.4100, L503.6620, L506.1000 #### [facility] [address] [place], [address] CO2 [Moles/Vol] 19.1 mmol/L Low 21.0-32.0 [facility] Comment on above: Performed By: #### L 502.0250, L500.4100, L503.6620, L506.1000 #### [facility] [address] [place], [address] Creatinine [Mass/Vol] 0.95 mg/dL Normal 0.70-1.20 [facility] Comment on above: Performed By: #### L 502.0250, L500.4100, L503.6620, L506.1000 #### [facility] [address] [place], [address] ECRCL 77.21 ml/min Normal 50-250 [facility] Comment on above: Performed By: #### L 502.0250, L500.4100, L503.6620, L506.1000 #### [facility] [address] [place], [address] GAP 18 High 5-15 [facility] Comment on above: Performed By: #### L 502.0250, L500.4100, L503.6620, L506.1000 #### [facility] [address] [place], [address] GFR/1.73 sq M.predicted among non-blacks MDRD (S/P/Bld) [Vol rate/Area] 70 mL/min/{1.73_m2} Normal >60 [facility] Comment on above: Result Comment: mL/m in/1.73m2 CKD-EPI Creatinine Equation (2020) Performed By: #### L 502.0250, L500.4100, L503.6620, L506.1000 #### [facility] [address] [place], [address] Globulin (S) [Mass/Vol] 3.1 g/dL Normal 2.2-4.2 [facility] Comment on above: Performed By: #### L 502.0250, L500.4100, L503.6620, L506.1000 #### [facility] [address] [place], [address] Glucose [Mass/Vol] 393 mg/dL High 70-99 [facility] Comment on above: Performed By: #### L 502.0250, L500.4100, L503.6620, L506.1000 #### [facility] [address] [place], [address] Potassium [Moles/Vol] 3.4 mmol/L Normal 3.3-5.1 [facility] Comment on above: Performed By: #### L 502.0250, L500.4100, L503.6620, L506.1000 #### [facility] [address] [place], [address] Sodium [Moles/Vol] 132 mmol/L Low 133-145 [facility] Comment on above: Performed By: #### L 502.0250, L500.4100, L503.6620, L506.1000 #### [facility] [address] [place], [address] T PROT 7.6 g/dL Normal 5.9-8.4 [facility] Comment on above: Performed By: #### L 502.0250, L500.4100, L503.6620, L506.1000 #### [facility] [address] [place], [address] Urea nitrogen [Mass/Vol] 8 mg/dL Normal 4-19 [facility] Comment on above: Performed By: #### L 502.0250, L500.4100, L503.6620, L506.1000 #### [facility] [address] [place], [address] Emergency Department Summary on 11-07-2024 Emergency Department Summary [facility] Medical Records Department [address] [place] [address] Emergency Department Summary 11/07/24 MR#: [id number] Acct: [id number] Name: CHRISSY LAY Rep #: [id number] : 1965 59 From: [place] PCP: Chantale Ramsey, MAIL ORDER CLERK-C Status:DEP ER Location: ED HPI History of Present Illness Chief Complaint: Nausea/Vomiting Narrative Narrative: Patient presenting today with mid abdominal pain, nausea, and vomiting she has had intermittently over the past week. She reports a history of chronic abdominal issues and previously followed with GI but no long sees them. She has had a cholecystectomy and appendectomy in the past. She reports that earlier in the week she was having diarrhea which subsided. She had 1 episode of black-colored stool last night but did take Pepto-Bismol a few days ago. She is not sure if she has ever had a GI bleed. She denies fevers, chills, hematemesis, and urinary symptoms. [facility] Medical History Osteoarthritis of left knee Left knee pain Osteoarthritis of right knee Contusion of right chest wall Contusion of right shoulder Contusion of forehead History of diabetes mellitus PTSD (post-traumatic stress disorder) Wears glasses Marijuana use Diabetes Arthritis Easy bruising High cholesterol Restless legs Injury of head and neck Difficulty swallowing Gastric reflux Non-smoker History of stress test History of echocardiogram Cardiology follow-up encounter SACHA (generalized anxiety disorder) Strain of right hip History of colon polyps Acute otitis externa of left ear Acute sinusitis, unspecified TIA (transient ischemic attack) Episode of syncope Urinary tract infection with hematuria Contusion of right ankle Contusion of right foot GI bleed Positive PPD, treated Pneumonia Bronchitis Statin intolerance Dyspnea on exertion Chest pain Near syncope Orthostatic hypotension Hyperlipidemia GERD (gastroesophageal reflux disease) RSD (reflex sympathetic dystrophy) Essential hypertension Diabetes mellitus type II, controlled Strain of unspecified muscle, fascia and tendon at shoulder and upper arm level, right arm, initial encounter Asthma Shoulder pain Hemorrhoids Nausea vomiting Depressed Asthma Home Medications ???Medication ???Instructions ???Recorded ???Last Taken ???Type ezetimibe 10 mg tablet 10 mg PO DAILY CHOLESTEROL #90 tab s 04/19/21 Unknown Rx diphenhydramine HCl 25 mg capsule 25 mg PO DAILY PRN allergy sympto ms 03/28/22 Unknown History duloxetine 60 mg capsule,delayed 120 mg (2 x 60 mg) PO DAILY Unknown Rx release ANXIETY 30 days #60 caps albuterol sulfate 90 mcg/actuation 2 puff inhalation Q4H PRN PRN Unknown Rx aerosol inhaler (Ventolin HFA) Wheezing or shortness of breath #1 inh pen needle, diabetic 32 gauge x #100 ea 03/05/23 Unknown Rx 5/32 (BD Ultra-Fine Thais Pen Needle) alcohol swabs 1 pad topical 4X/DAY #200 ea 04/28 Unknown Rx ondansetron 4 mg disintegrating 4 mg PO Q6H PRN nausea and 3 Unknown Rx tablet vomiting #10 tabs meclizine 25 mg tablet 25 mg PO TID PRN dizziness #30 tab s 05/23/23 Unknown Rx allopurinol 100 mg tablet 100 mg PO DAILY 06/18/23 Unknown H istory pen needle, diabetic 32 gauge x #100 ea 10/23/23 Unknown Rx /32 (BD Ultra-Fine Thais Pen Needle) lorazepam 1 mg tablet 0.5 mg (1/2 x 1 mg) PO DAILY PRN 0 12/03/23 Unknown Rx Anxiety #30 tabs ibuprofen 800 mg tablet 800 mg PO DAILY 12/24/23 Unknown H istory insulin aspart U-100 100 unit/mL 18 sliding scale dose subcut TID 0 12/24/23 Unknown History (3 mL) subcutaneous pen (Novolog FlexPen U-100 Insulin aspart) hydroxyzine HCl 25 mg tablet 25 mg PO DAILY PRN anxiety 4 Unknown History colchicine 0.6 mg capsule 0.6 mg PO QDAY PRN Gout 04/21/24 U nknown History furosemide 20 mg tablet 20 mg PO QDAY 04/21/24 Unknown His tory losartan 100 mg tablet 100 mg PO QDAY 04/21/24 Unknown Hi story omega-3 acid ethyl esters 1 gram 1 cap PO BID #180 caps 04/26/24 Un known Rx capsule flash glucose sensor (FreeStyle #2 ea 06/21/24 Unknown Rx Tanmay 2 Sensor kit) cholecalciferol (vitamin D3) 50 50 mcg PO QDAY #90 caps 07/19/24 U nknown Rx mcg (2,000 unit) capsule omeprazole 20 mg capsule,delayed 40 mg PO DAILY GERD 07/19/24 Unkno wn History release dulaglutide 3 mg/0.5 mL 3 mg (0.5 mL) subcut QWEEK #2 mL 1 Unknown Rx subcutaneous pen injector (Trulicity) insulin glargine 100 unit/mL (3 30 unit (0.3 mL) subcut QAM #27 mL 08/02/24 Unknown Rx mL) subcutaneous pen (Basaglar KwikPen U-100 Insulin) brexpiprazole 0.5 mg tablet 0.5 mg PO QDAY 10/18/24 Unknown Hi story (Rexulti) (more content not included)... Normal [facility] Lipaseon 11-07-2024 Lipase [Catalytic activity/Vol] 35 U/L Normal 13-75 [facility] Comment on above: Result Comment: Lo hansen note: LIPASE revised reference range effective 22. New Lipase methodology. Expected to produce lower values than the previous assay method. NEW Reference Range: 13 - 75 U/L Performed By: #### L 502.0250, L500.4100, L503.6620, L506.1000 #### [facility] [address] [place], [place], [id number] Stool Occult Blood iFOBon STOB Negative Normal [facility] Comment on above: Performed By: #### L 400.0001 #### [facility] [address] [place], [address] Urinalysis, Completeon 11-07 BACTERIA 1+ /hpf Normal None Seen [facility] Comment on above: Order Comment: CLEAN CATCH Performed By: #### L 400.0001 #### [facility] [address] [place], [address] CAST,HYALINE 0-5 SEEN Normal 0-5 [facility] Comment on above: Order Comment: CLEAN CATCH Performed By: #### L 400.0001 #### [facility] [address] [place], [address] EPI,SQUAMOUS 5-10 SEEN Normal 5-10 [facility] Comment on above: Order Comment: CLEAN CATCH Performed By: #### L 400.0001 #### [facility] [address] [place], [address] RBC 0-5 SEEN Normal 0-5 [facility] Comment on above: Order Comment: CLEAN CATCH Performed By: #### L 400.0001 #### [facility] [address] [place], [address] WBC 0-5 SEEN Normal 0-5 [facility] Comment on above: Order Comment: CLEAN CATCH Performed By: #### L 400.0001 #### [facility] [address] [place], [address] BILIRUBIN URINE Negative Normal Negative [facility] Comment on above: Order Comment: CLEAN CATCH Performed By: #### L 400.0001 #### [facility] [address] [place], [address] Clarity (U) Clear Normal Clear [facility] Comment on above: Order Comment: CLEAN CATCH Performed By: #### L 400.0001 #### [facility] [address] [place], [address] Color (U) Yellow Normal Yellow [facility] Comment on above: Order Comment: CLEAN CATCH Performed By: #### L 400.0001 #### [facility] [address] [place], [address] GLUCOSE, UR Normal Normal Normal [facility] Comment on above: Order Comment: CLEAN CATCH Performed By: #### L 400.0001 #### [facility] [address] [place], [address] KETONE UR Negative Normal Negative [facility] Comment on above: Order Comment: CLEAN CATCH Performed By: #### L 400.0001 #### [facility] [address] [place], [address] LEUK ESTERASE Negative Normal Negative [facility] Comment on above: Order Comment: CLEAN CATCH Performed By: #### L 400.0001 #### [facility] [address] [place], [address] Nitrite Ql (U) Negative Normal Negative [facility] Comment on above: Order Comment: CLEAN CATCH Performed By: #### L 400.0001 #### [facility] [address] [place], [address] OCCULT BLOOD-UR Negative Normal Negative [facility] Comment on above: Order Comment: CLEAN CATCH Performed By: #### L 400.0001 #### [facility] [address] [place], [address] pH UR 6.5 Normal 5.0 - 8.0 [facility] Comment on above: Order Comment: CLEAN CATCH Performed By: #### L 400.0001 #### [facility] [address] [place], [address] PROT DIPSTX 15 mg/dl Abnormal Negative [facility] Comment on above: Order Comment: CLEAN CATCH Performed By: #### L 400.0001 #### [facility] [address] [place], [address] SP.GR. DIPSTX 1.010 Normal 1.002-1.030 [facility] Comment on above: Order Comment: CLEAN CATCH Performed By: #### L 400.0001 #### [facility] [address] [place], [address] UROBILI Normal Normal Normal [facility] Comment on above: Order Comment: CLEAN CATCH Performed By: #### L 400.0001 #### [facility] [address] [place], [place], [address] Mucus Ql (Urine sed) 0 SEEN Normal [facility] Comment on above: Order Comment: CLEAN CATCH Performed By: #### L 400.0001 #### [facility] [address] [place], [place], [id number] MALBRon 10-26-2024 U Creatinine 203.9 mg/dL Normal Comment on above: Performed By: #### M ALBR ####[address] [place], [place] [address] U Microalb 59.3 mg/L Normal Comment on above: Performed By: #### M ALBR ####[address] [place], [place] [address] U Ratio Alb/Cre 29 mg/G Normal 0-30 Comment on above: Performed By: #### M ALBR ####Daniel [address] [place], [place] [address] Abdomen Limitedon 10-20-2024 Abdomen Limited [facility] [address] [place], [place] [address] Abdomen Limited MR#: [id number] Acct: [id number] Name: CHRISSY LAY Rep #: [id number] : 1965 F 59 From: Sam Cohen MD PCP: NADIA Mcrae Status: REG CLI Study: Abdomen Limited Date of Exam: 10/20/24 Exam# [id number] Ordering Dr: Sandi Ramírez MAIL ORDER CLERK-C PROCEDURE: ABDOMEN LIMITED (USABDL), 10/20/2024 REASON FOR EXAM: ELEVATED LIVER ENZYMES, HX OF LIVER DISEASE COMPARISON: 08/02/2022 FINDINGS: Liver: Echogenic. 18.9 cm in length. Gallbladder: Surgically absent. Biliary tree: Unremarkable. CBD measures 5 mm. Pancreas: Partially obscured by shadowing bowel gas, grossly unremarkable as visualized. Right kidney: Unremarkable. 10.9 cm in length. Other: No visualized free fluid. US/Abdomen Limited IMPRESSION: 1. Diffuse hepatic steatosis and mild hepatomegaly. Correlate for clinical and laboratory evidence of chronic liver disease. 2. Cholecystectomy without biliary dilatation. Reading Location: [id number] CC: NADIA Ramsey; NADIA Ramírez Principal Gifts Officer: Signed Normal [facility] Comprehensive Metabolic Prof ilon 10-18-2024 Albumin [Mass/Vol] 4.2 g/dL Normal 3.5-5.0 [facility] Comment on above: Performed By: #### L 500.4050, L500.4100 ####[facility] [address] [place], [address] Albumin/Globulin [Mass ratio] 1.5 {ratio} Normal 0.9-2.4 [facility] Comment on above: Performed By: #### L 500.4050, L500.4100 ####[facility] [address] [place], [address] ALK PHOS 142 U/L High 35-104 [facility] Comment on above: Performed By: #### L 500.4050, L500.4100 ####[facility] [address] [place], [address] ALT [Catalytic activity/Vol] 73 U/L High <=34 [facility] Comment on above: Performed By: #### L 500.4050, L500.4100 ####[facility] [address] [place], [address] AST [Catalytic activity/Vol] 73 U/L High <=31 [facility] Comment on above: Performed By: #### L 500.4050, L500.4100 ####[facility] [address] [place], [address] Bilirubin [Mass/Vol] 0.31 mg/dL Normal 0.00-1.30 [facility] Comment on above: Performed By: #### L 500.4050, L500.4100 ####[facility] [address] [place], [address] BUN/CRE 16.4 RATIO Normal 10-20 [facility] Comment on above: Performed By: #### L 500.4050, L500.4100 ####[facility] [address] [place], [address] Calcium [Mass/Vol] 9.5 mg/dL Normal 7.6-11.0 [facility] Comment on above: Performed By: #### L 500.4050, L500.4100 ####[facility] [address] [place], [address] Chloride [Moles/Vol] 103 mmol/L Normal 98-108 [facility] Comment on above: Performed By: #### L 500.4050, L500.4100 ####[facility] [address] [place], [address] CO2 [Moles/Vol] 23.2 mmol/L Normal 21.0-32.0 [facility] Comment on above: Performed By: #### L 500.4050, L500.4100 ####[facility] [address] [place], [address] Creatinine [Mass/Vol] 0.70 mg/dL Normal 0.70-1.20 [facility] Comment on above: Performed By: #### L 500.4050, L500.4100 ####[facility] [address] [place], [address] GAP 15 Normal 5-15 [facility] Comment on above: Performed By: #### L 500.4050, L500.4100 ####[facility] [address] [place], [address] GFR/1.73 sq M.predicted among non-blacks MDRD (S/P/Bld) [Vol rate/Area] 100 mL/min/{1.73_m2} Normal >60 [facility] Comment on above: Result Comment: mL/m in/1.73m2 CKD-EPI Creatinine Equation (2020) Performed By: #### L 500.4050, L500.4100 ####[facility] [address] [place], [address] Globulin (S) [Mass/Vol] 2.9 g/dL Normal 2.2-4.2 [facility] Comment on above: Performed By: #### L 500.4050, L500.4100 ####[facility] [address] [place], [address] Glucose [Mass/Vol] 144 mg/dL High 70-99 [facility] Comment on above: Performed By: #### L 500.4050, L500.4100 ####[facility] [address] [place], [address] Potassium [Moles/Vol] 4.0 mmol/L Normal 3.3-5.1 [facility] Comment on above: Performed By: #### L 500.4050, L500.4100 ####[facility] [address] [place], [address] Sodium [Moles/Vol] 141 mmol/L Normal 133-145 [facility] Comment on above: Performed By: #### L 500.4050, L500.4100 ####[facility] [address] [place], [address] T PROT 7.1 g/dL Normal 5.9-8.4 [facility] Comment on above: Performed By: #### L 500.4050, L500.4100 ####[facility] [address] [place], [address] Urea nitrogen [Mass/Vol] 11 mg/dL Normal 4-19 [facility] Comment on above: Performed By: #### L 500.4050, L500.4100 ####[facility] [address] [place], [address] Endocrinology Visit Reporton 10-18-2024 Endocrinology Visit Report [facility] 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 Age/Sex: 59/F Location: [facility] [place] Status: Signed Intake Vital Signs 07/19/24 10:27 08/05/24 10:47 10/18/24 10:47 Height 5 ft 8 in 5 ft 8 in 5 ft 8 in Weight: 231 lb 2 oz 220 lb BMI 35.1 33.4 BP 159/98 H 158/97 H Blood Pressure Location Lt brachial Rt brachial Position Sitting Sitting Pulse 93 84 Pulse Source Monitor Monitor Pulse Oximetry (%) 96 96 Oxygen Delivery Method room air room air Intake Visit Reasons: 3 M FU Chief Complaint: f/u daibetes Is patient in pain?: No Allergies clindamycin Allergy (Mild, Verified 10/18/24 10:52) Rash adalimumab (From Humira) Allergy (Verified 10/18/24 10:52) Unknown amoxicillin trihydrate (From Augmentin) Allergy (Verified 10/18/24 10:52) Unknown codeine Allergy (Verified 10/18/24 10:52) Itching etanercept (From Enbrel) Allergy (Verified 10/18/24 10:52) Unknown leflunomide (From Arava) Allergy (Verified 10/18/24 10:52) Other metoprolol tartrate (From Lopressor) Allergy (Verified 10/18/24 10:52) Unknown morphine sulfate (From Embeda) Allergy (Verified 10/18/24 10:52) Unknown naltrexone HCl (From Embeda) Allergy (Verified 10/18/24 10:52) Unknown oxymorphone (Oxymorphone) Allergy (Verified 10/18/24 10:52) Unknown pioglitazone HCl (From Actos) Allergy (Verified 10/18/24 10:52) Other pneumococcal 23-valent polysacchari (From Pneumovax 23) Allergy (Verified 10/18/24 10:52) Unknown potassium clavulanate (From Augmentin) Allergy (Verified 10/18/24 10:52) Unknown Eeqborx-ITC-WeX Reductase Inhibitor (Abdbsxe-Kul-Cdc Reductase Inhibitor) Allergy (Verified 10/18/24 10:52) Unknown Sulfa (Sulfonamide Antibiotics) Allergy (Verified 10/18/24 10:52) Anaphylaxis sulfamethoxazole (From Bactrim) Allergy (Verified 10/18/24 10:52) Anaphylaxis telithromycin (From Ketek) Allergy (Verified 10/18/24 10:52) Unknown tramadol HCl (From Ultram) Allergy (Verified 10/18/24 10:52) Unknown trimethoprim (From Bactrim) Allergy (Verified 10/18/24 10:52) Anaphylaxis Medications ???Medication ???Instructions ???Recorded ???Confirmed ???Type ezetimibe 10 mg tablet 10 mg PO DAILY CHOLESTEROL #90 tab s 04/19/21 10/18/24 Rx diphenhydramine HCl 25 mg capsule 25 mg PO DAILY PRN allergy sympto ms 03/28/22 10/18/24 History cyclobenzaprine 10 mg tablet 10 mg PO TID PRN Muscle Spasm #20 09/30/22 10/18/24 Rx TABLETS duloxetine 60 mg capsule,delayed 120 mg (2 x 60 mg) PO DAILY 10/18/24 Rx release ANXIETY 30 days #60 caps albuterol sulfate 90 mcg/actuation 2 puff inhalation Q4H PRN PRN 10/18/24 Rx aerosol inhaler (Ventolin HFA) Wheezing or shortness of breath #1 inh pen needle, diabetic 32 gauge x #100 ea 03/05/23 08/05/24 Rx 5/32 (BD Ultra-Fine Thais Pen Needle) alcohol swabs 1 pad topical 4X/DAY #200 ea 04/2810/18/24 Rx ondansetron 4 mg disintegrating 4 mg PO Q6H PRN nausea and 3 10/18/24 Rx tablet vomiting #10 tabs meclizine 25 mg tablet 25 mg PO TID PRN dizziness #30 tab s 05/23/23 10/18/24 Rx allopurinol 100 mg tablet 100 mg PO DAILY 06/18/23 10/18/24 History pen needle, diabetic 32 gauge x #100 ea 10/23/23 08/05/24 Rx (BD Ultra-Fine Thais Pen Needle) lorazepam 1 mg tablet 0.5 mg (1/2 x 1 mg) PO DAILY PRN 0 12/03/23 10/18/24 Rx Anxiety #30 tabs ibuprofen 800 mg tablet 800 mg PO TID 12/24/23 10/18/24 Hi story insulin aspart U-100 100 unit/mL 18 sliding scale dose subcut TID 0 12/24/23 10/18/24 History (3 mL) subcutaneous pen (Novolog FlexPen U-100 Insulin aspart) hydroxyzine HCl 25 mg tablet 25 mg PO DAILY PRN anxiety 4 10/18/24 History colchicine 0.6 mg capsule 0.6 mg PO QDAY PRN 04/21/24 History furosemide 20 mg tablet 20 mg PO QDAY 04/21/24 10/18/24 Hi story losartan 100 mg tablet 100 mg PO QDAY 04/21/24 10/18/24 H istory omega-3 acid ethyl esters 1 gram 1 cap PO BID #180 caps 04/26/24 Rx capsule flash glucose sensor (FreeStyle #2 ea 06/21/24 08/05/24 Rx Tamnay 2 Sensor kit) cholecalciferol (vitamin D3) 50 50 mcg PO QDAY #90 caps 07/19/24 0 10/18/24 Rx mcg (2,000 unit) capsule omeprazole 20 mg capsule,delayed 40 mg PO DAILY GERD 07/19/2410/18 History release dulaglutide 3 mg/0.5 mL 3 mg (0.5 mL) subcut QWEEK #2 mL 1 10/18/24 Rx subcutaneous pen injector (Trulicity) insulin glargine 100 unit/mL (3 30 unit (0.3 mL) subcut QAM #27 mL 08/02/24 10/18/24 Rx mL) subcutaneous pen (Basaglar KwikPen U-100 Insulin) triamcinolone acetonide 55 mcg (more content not included)... Normal [facility] Lipid Profileon 10-18-2024 CHOL:HDL 4.28 Normal [facility] Comment on above: Performed By: #### L 500.4050, L500.4100 ####[facility] [address] [place], [address] Cholesterol [Mass/Vol] 250 mg/dL High <=200 [facility] Comment on above: Result Comment: Chol esterol level, Desirable <200 mg/dL Borderline high cholesterol 200-239 mg/dL High cholesterol >=240 mg/dL Recommendations of the NCEP Adult Treatment Panel for the following risk-cutoff thresholds for the [place] population. Performed By: #### L 500.4050, L500.4100 ####[facility] [address] [place], [address] Cholesterol in HDL [Mass/Vol] 58 mg/dL Normal [facility] Comment on above: Result Comment: Bárbara onal Cholesterol Education Program (NCEP) guidelines: <40 mg/dL: Low HDL-cholesterol (major risk factor for CHD) >= 60 mg/dL: High HDL-cholesterol (negative risk factor for CHD) HDL-cholesterol is affected by a number of factors, e.g. smoking, exercise, hormones, sex and age. Performed By: #### L 500.4050, L500.4100 ####[facility] [address] [place], [address] Cholesterol in LDL [Mass/Vol] 139 mg/dL Normal [facility] Comment on above: Result Comment: Bord mdiblo=592-346 mg/dL Higher Tbfy=826 mg/dL or greater Performed By: #### L 500.4050, L500.4100 ####[facility] [address] [place], [address] Cholesterol in VLDL [Mass/Vol] 52 mg/dL High 5-40 [facility] Comment on above: Performed By: #### L 500.4050, L500.4100 ####[facility] [address] [place], [address] Triglyceride [Mass/Vol] 261 mg/dL High [facility] Comment on above: Result Comment: The drugs N-Acetylcysteine and Metamizole may falsely depress this assay. Normal range: <150 mg/dL Borderline High: 150-199 mg/dL High: 200-499 mg/dL Very High: >500 mg/dL Performed By: #### L 500.4050, L500.4100 ####[facility] [address] [place], [address] MYCOon 08-15-2024 Mycoplasma IgG Positive Normal Comment on above: Result Comment: INTE RPRETATION OF MYCOPLASMA IgG BY EIA: Negative: No detectable M. pneumoniae IgG antibody. Positive: Mycoplasma pneumoniae IgG antibody Detected. Equivocal: Equivocal for IgG antibodies to Mycoplasma pneumoniae. Suggest repeat testing in 10-14 days. Performed By: #### M YCO ####[address] [address] .GFRon 08-14-2024 GFR 129 ml/min/1.73sqm Normal Comment on above: Result Comment: GFR Population mean for , Non- Americans Ages 20-29 = 116 mL/min/1.73 sq.m. Ages 30-39 = 107 mL/min/1.73 sq.m. Ages 40-49 = 99 mL/min/1.73 sq.m. Ages 50-59 = 93 mL/min/1.73 sq.m. Ages 60-69 = 85 mL/min/1.73 sq.m. Ages 70+ = 75 mL/min/1.73 sq.m. Chronic Kidney Disease: Less than 60 mL/min/1.73 square meters End Stage Renal Disease: Less than 15 mL/min/1.73 square meters Performed By: #### G FR, MG, BMP #### [facility] [address] [place], [place] [address] GFR Non- 107 ml/min/1.73sqm Normal Comment on above: Result Comment: GFR Population mean for , Non- Americans Ages 20-29 = 116 mL/min/1.73 sq.m. Ages 30-39 = 107 mL/min/1.73 sq.m. Ages 40-49 = 99 mL/min/1.73 sq.m. Ages 50-59 = 93 mL/min/1.73 sq.m. Ages 60-69 = 85 mL/min/1.73 sq.m. Ages 70+ = 75 mL/min/1.73 sq.m. Chronic Kidney Disease: Less than 60 mL/min/1.73 square meters End Stage Renal Disease: Less than 15 mL/min/1.73 square meters Performed By: #### G FR, MG, BMP #### [address] [address] BMPon 08-14-2024 BUN/Creatinine Ratio 19 ratio Normal 7-27 Comment on above: Performed By: #### Demetrio FR, MG, BMP #### [address] [address] BMPOrdered By: SYSTEM SYSTEM on 08-14-2024 Calcium [Mass/Vol] 9.1 mg/dL Normal 8.4-10.2 AO ADM SS Comment on above: Performed By: #### G FR, MG, BMP #### [address] [address] Chloride [Moles/Vol] 104 mmol/L Normal 98-107 AO ADM SS Comment on above: Performed By: #### Demetrio FR, MG, BMP #### [address] [address] CO2 [Moles/Vol] 24 mmol/L Normal 22-29 AO ADM SS Comment on above: Performed By: #### G FR, MG, BMP #### [address] [address] Creatinine [Mass/Vol] 0.58 mg/dL Normal 0.55-1.02 AO ADM SS Comment on above: Interpretive Data: T esting performed on Siemens Dimension EXL analyzer using a modified kinetic Melinda technique. Result Comment: Test ing performed on Siemens Dimension EXL analyzer using a modified kinetic Melinda technique. Performed By: #### G FR, MG, BMP #### [address] [address] Electrolyte Balance 11.0 mEq/L Normal 4.0-15.0 AO AD M SS Comment on above: Performed By: #### G FR, MG, BMP #### [address] [address] Glucose [Mass/Vol] 219 mg/dL High 70-105 AO ADM SS Comment on above: Performed By: #### G FR, MG, BMP #### [address] [address] Potassium [Moles/Vol] 4.1 mmol/L Normal 3.5-5.1 AO ADM SS Comment on above: Performed By: #### G FR, MG, BMP #### [address] [address] Sodium [Moles/Vol] 139 mmol/L Normal 136-145 AO ADM SS Comment on above: Performed By: #### Demetrio FR, MG, BMP #### [address] [address] Urea nitrogen [Mass/Vol] 11 mg/dL Normal 7-18 AO ADM SS Comment on above: Performed By: #### G FR, MG, BMP #### [address] [address] LABORATORYOrdered By: Chelsie Gibson on 08-14-2024 Blood Glucose Testing Reason Routine (08/14/24 12:12 PM) [facility] Work Phone: Glucose [Mass/Vol] 273 mg/dL High 70 - 110 mg/dL [facility] Work Phone: Blood Glucose Testing Reason Routine (08/14/24 8:01 AM) [facility] Work Phone: Glucose [Mass/Vol] 248 mg/dL High 70 - 110 mg/dL [facility] Work Phone: LABORATORYOrdered By: Harika antoine on 08-14-2024 Blood Glucose Testing Reason Routine (08/14/24 11:24 AM) [facility] Work Phone: Glucose [Mass/Vol] 281 mg/dL High 70 - 110 mg/dL [facility] Work Phone: LABORATORYOrdered By: SYSTEM SYSTEM on 08-14-2024 GFR/1.73 sq M.predicted among blacks MDRD (S/P/Bld) [Vol rate/Area] 129 ml/min/1.73sqm Invalid Interpretation Code AO Chemistry S Comment on above: Interpretive Data: GFR Population mean for , Non- Americans Ages 20-29 = 116 mL/min/1.73 sq.m. Ages 30-39 = 107 mL/min/1.73 sq.m. Ages 40-49 = 99 mL/min/1.73 sq.m. Ages 50-59 = 93 mL/min/1.73 sq.m. Ages 60-69 = 85 mL/min/1.73 sq.m. Ages 70+ = 75 mL/min/1.73 sq.m. Chronic Kidney Disease: Less than 60 mL/min/1.73 square meters End Stage Renal Disease: Less than 15 mL/min/1.73 square meters GFR/1.73 sq M.predicted among non-blacks MDRD (S/P/Bld) [Vol rate/Area] 107 ml/min/1.73sqm Invalid Interpretation Code AO Chemistry S Comment on above: Interpretive Data: GFR Population mean for , Non- Americans Ages 20-29 = 116 mL/min/1.73 sq.m. Ages 30-39 = 107 mL/min/1.73 sq.m. Ages 40-49 = 99 mL/min/1.73 sq.m. Ages 50-59 = 93 mL/min/1.73 sq.m. Ages 60-69 = 85 mL/min/1.73 sq.m. Ages 70+ = 75 mL/min/1.73 sq.m. Chronic Kidney Disease: Less than 60 mL/min/1.73 square meters End Stage Renal Disease: Less than 15 mL/min/1.73 square meters Urea nitrogen/Creatinine [Mass ratio] 19 ratio Normal 7 - 27 ratio AO ADM SS MGOrdered By: SYSTEM SYSTEM on 08-14-2024 Magnesium [Mass/Vol] 1.7 mg/dL Low 1.8-2.4 AO ADM SS Comment on above: Performed By: #### G FR, MG, BMP #### [address] [id number] MYCOon 08-14-2024 Mycoplasma IgM Negative Normal Comment on above: Result Comment: INTE RPRETATION OF MYCOPLASMA IgM: Negative: IgM to M. pneumoniae Absent, or at levels below the assay limit of detection. Positive: IgM to M. pneumoniae Present. Invalid: Test results are invalid due to invalid internal control. Assay was performed in duplicate. Repeat testing is suggested if clinically indicated. Performed By: #### M YCO ####[place] [address] .Auto Diffon 08-13-2024 Basophil, Absolute 0.0 10 3/mcL Normal 0.0-0.2 [facility] Comment on above: Performed By: #### M G, GFR, CBC, BMP, ANEU, ADIFF #### [address] [address] Basophils/100 WBC (Bld) 0.3 % Normal 0.0-2.5 Comment on above: Performed By: #### M G, GFR, CBC, BMP, ANEU, ADIFF #### [address] [address] Eosinophil, Absolute 0.3 10 3/mcL Normal 0.0-0.7 Comment on above: Performed By: #### M G, GFR, CBC, BMP, ANEU, ADIFF #### [address] [address] Eosinophils/100 WBC (Bld) 2.7 % Normal 0.0-7.0 Comment on above: Performed By: #### M G, GFR, CBC, BMP, ANEU, ADIFF #### [address] [address] Lymphocyte, Absolute 3.5 10 3/mcL Normal 0.9-4.3 Comment on above: Performed By: #### M G, GFR, CBC, BMP, ANEU, ADIFF #### [address] [address] Lymphocytes/100 WBC (Bld) 35.2 % Normal 20.0-40.0 Comment on above: Performed By: #### M G, GFR, CBC, BMP, ANEU, ADIFF #### [address] [address] Monocyte, Absolute 1.0 10 3/mcL Normal 0.1-1.4 [facility] Comment on above: Performed By: #### M G, GFR, CBC, BMP, ANEU, ADIFF #### [address] [address] Monocytes/100 WBC (Bld) 9.6 % Normal 2.0-13.0 Comment on above: Performed By: #### M G, GFR, CBC, BMP, ANEU, ADIFF #### [address] [address] Neutrophils/100 WBC (Bld) 52.2 % Normal 50.0-75.0 Comment on above: Performed By: #### M G, GFR, CBC, BMP, ANEU, ADIFF #### [address] [address] .GFRon 08-13-2024 GFR 102 ml/min/1.73sqm Normal Comment on above: Result Comment: GFR Population mean for , Non- Americans Ages 20-29 = 116 mL/min/1.73 sq.m. Ages 30-39 = 107 mL/min/1.73 sq.m. Ages 40-49 = 99 mL/min/1.73 sq.m. Ages 50-59 = 93 mL/min/1.73 sq.m. Ages 60-69 = 85 mL/min/1.73 sq.m. Ages 70+ = 75 mL/min/1.73 sq.m. Chronic Kidney Disease: Less than 60 mL/min/1.73 square meters End Stage Renal Disease: Less than 15 mL/min/1.73 square meters Performed By: #### M G, GFR, CBC, BMP, ANEU, ADIFF ####[place] [address] [place], [place] [address] GFR Non- 85 ml/min/1.73sqm Normal Comment on above: Result Comment: GFR Population mean for , Non- Americans Ages 20-29 = 116 mL/min/1.73 sq.m. Ages 30-39 = 107 mL/min/1.73 sq.m. Ages 40-49 = 99 mL/min/1.73 sq.m. Ages 50-59 = 93 mL/min/1.73 sq.m. Ages 60-69 = 85 mL/min/1.73 sq.m. Ages 70+ = 75 mL/min/1.73 sq.m. Chronic Kidney Disease: Less than 60 mL/min/1.73 square meters End Stage Renal Disease: Less than 15 mL/min/1.73 square meters Performed By: #### M G, GFR, CBC, BMP, ANEU, ADIFF ####[place] [address] [place], [place] [address] .NEUABSon 08-13-2024 Neutrophil, Absolute 5.2 10 3/mcL Normal 2.3-8.1 Comment on above: Performed By: #### M G, GFR, CBC, BMP, ANEU, ADIFF ####[address] [place], [place] [address] BMPon 08-13-2024 Calcium [Mass/Vol] 8.6 mg/dL Normal 8.4-10.2 [facility] Comment on above: Performed By: #### M G, GFR, CBC, BMP, ANEU, ADIFF ####[place] [address] [place], [place] [address] BUN/Creatinine Ratio 18 ratio Normal 7-27 Comment on above: Performed By: #### M G, GFR, CBC, BMP, ANEU, ADIFF ####[place] [address] [place], [place] [address] Chloride [Moles/Vol] 106 mmol/L Normal 98-107 Comment on above: Performed By: #### M G, GFR, CBC, BMP, ANEU, ADIFF ####[facility] [place], [place] [address] CO2 [Moles/Vol] 20 mmol/L Low 22-29 Comment on above: Performed By: #### M G, GFR, CBC, BMP, ANEU, ADIFF ####[facility] [place], [place] [address] Creatinine [Mass/Vol] 0.71 mg/dL Normal 0.55-1.02 Comment on above: Result Comment: Test ing performed on Siemens Dimension EXL analyzer using a modified kinetic Melinda technique. Performed By: #### M G, GFR, CBC, BMP, ANEU, ADIFF ####[address] [place], [place] [address] Electrolyte Balance 13.0 mEq/L Normal 4.0-15.0 [facility] Comment on above: Performed By: #### M G, GFR, CBC, BMP, ANEU, ADIFF ####[address] [place], [place] [address] Glucose [Mass/Vol] 223 mg/dL High 70-105 [facility] Comment on above: Performed By: #### M G, GFR, CBC, BMP, ANEU, ADIFF ####[address] [place], [place] [address] Potassium [Moles/Vol] 4.1 mmol/L Normal 3.5-5.1 Comment on above: Performed By: #### M G, GFR, CBC, BMP, ANEU, ADIFF ####[address] [place], [place] [address] Sodium [Moles/Vol] 139 mmol/L Normal 136-145 [facility] Comment on above: Performed By: #### M G, GFR, CBC, BMP, ANEU, ADIFF ####[address] [place], [place] [address] Urea nitrogen [Mass/Vol] 13 mg/dL Normal 7-18 Comment on above: Performed By: #### M G, GFR, CBC, BMP, ANEU, ADIFF ####[address] [address] CBCon 08-13-2024 Erythrocyte distribution width (RBC) [Ratio] 12.8 % Normal 11.5-15.5 Comment on above: Performed By: #### M G, GFR, CBC, BMP, ANEU, ADIFF #### [address] [address] Hematocrit (Bld) [Volume fraction] 44.4 % Normal 34.0-46.0 Comment on above: Performed By: #### M G, GFR, CBC, BMP, ANEU, ADIFF #### [address] [address] Hgb 14.8 G/dL Normal 12.0-16.0 Comment on above: Performed By: #### M G, GFR, CBC, BMP, ANEU, ADIFF #### [address] [address] MCH (RBC) [Entitic mass] 30.3 pg Normal 27.0-33.0 Comment on above: Performed By: #### M G, GFR, CBC, BMP, ANEU, ADIFF #### [address] [address] MCHC 33.4 G/dL Normal 32.0-36.0 Comment on above: Performed By: #### M G, GFR, CBC, BMP, ANEU, ADIFF #### [address] [address] MCV (RBC) [Entitic vol] 90.9 fL Normal 80.0-99.0 Comment on above: Performed By: #### M G, GFR, CBC, BMP, ANEU, ADIFF #### [address] [address] Platelet 279 10 3/mcL Normal 150-450 Comment on above: Performed By: #### M G, GFR, CBC, BMP, ANEU, ADIFF #### [place] [address] [place], [place] [address] Platelet mean volume (Bld) [Entitic vol] 7.2 fL Normal 6.6-10.5 Comment on above: Performed By: #### M G, GFR, CBC, BMP, ANEU, ADIFF #### [place] [address] [place], [place] [address] RBC 4.89 10 6/mcL Normal 4.10-5.30 Comment on above: Performed By: #### M G, GFR, CBC, BMP, ANEU, ADIFF #### [place] [address] [place], [place] [address] WBC 10.0 10 3/mcL Normal 4.5-10.8 Comment on above: Performed By: #### M G, GFR, CBC, BMP, ANEU, ADIFF #### [place] [address] [place], [place] [address] LABORATORYOrdered By: SYSTEM SYSTEM on 08-13-2024 Basophils (Bld) [#/Vol] 0.0 103/mcL Normal 0.0 - 0.2 10^3/mcL AO Workflow SS Basophils/100 WBC (Bld) 0.3 % Normal 0.0 - 2.5 % AO Workflow SS Calcium [Mass/Vol] 8.6 mg/dL Normal 8.4 - 10. 2 mg/dL AO ADM SS Chloride [Moles/Vol] 106 mmol/L Normal 98 - 107 mmol/L AO ADM SS CO2 [Moles/Vol] 20 mmol/L Low 22 - 29 mmol/L AO ADM SS Creatinine [Mass/Vol] 0.71 mg/dL Normal 0.55 - 1.02 mg/dL AO ADM SS Comment on above: Interpretive Data: T esting performed on Siemens Dimension EXL analyzer using a modified kinetic Melinda technique. Electrolyte Balance 13.0 mEq/L Normal 4.0 - 15 .0 mEq/L AO ADM SS Eosinophil, Absolute 0.3 103/mcL Normal 0.0 - 0.7 10^3/mcL AO Workflow SS Eosinophils/100 WBC (Bld) 2.7 % Normal 0.0 - 7.0 % AO Workflow SS Erythrocyte distribution width (RBC) [Ratio] 12.8 % Normal 11.5 - 15.5 % AO Workflow SS GFR/1.73 sq M.predicted among blacks MDRD (S/P/Bld) [Vol rate/Area] 102 ml/min/1.73sqm Invalid Interpretation Code AO Chemistry S Comment on above: Interpretive Data: GFR Population mean for , Non- Americans Ages 20-29 = 116 mL/min/1.73 sq.m. Ages 30-39 = 107 mL/min/1.73 sq.m. Ages 40-49 = 99 mL/min/1.73 sq.m. Ages 50-59 = 93 mL/min/1.73 sq.m. Ages 60-69 = 85 mL/min/1.73 sq.m. Ages 70+ = 75 mL/min/1.73 sq.m. Chronic Kidney Disease: Less than 60 mL/min/1.73 square meters End Stage Renal Disease: Less than 15 mL/min/1.73 square meters GFR/1.73 sq M.predicted among non-blacks MDRD (S/P/Bld) [Vol rate/Area] 85 ml/min/1.73sqm Invalid Interpretation Code AO Chemistry S Comment on above: Interpretive Data: GFR Population mean for , Non- Americans Ages 20-29 = 116 mL/min/1.73 sq.m. Ages 30-39 = 107 mL/min/1.73 sq.m. Ages 40-49 = 99 mL/min/1.73 sq.m. Ages 50-59 = 93 mL/min/1.73 sq.m. Ages 60-69 = 85 mL/min/1.73 sq.m. Ages 70+ = 75 mL/min/1.73 sq.m. Chronic Kidney Disease: Less than 60 mL/min/1.73 square meters End Stage Renal Disease: Less than 15 mL/min/1.73 square meters Glucose [Mass/Vol] 223 mg/dL High 70 - 105 mg/dL AO ADM SS Hematocrit (Bld) [Volume fraction] 44.4 % Normal 34.0 - 46.0 % AO Workflow SS Hemoglobin (Bld) [Mass/Vol] 14.8 G/dL Normal 12.0 - 16.0 G/dL AO Workflow SS Lymphocytes (Bld) [#/Vol] 3.5 103/mcL Normal 0.9 - 4.3 10^3/mcL AO Workflow SS Lymphocytes/100 WBC (Bld) 35.2 % Normal 20.0 - 40.0 % AO Workflow SS Magnesium [Mass/Vol] 1.8 mg/dL Normal 1.8 - 2.4 mg/dL AO ADM SS MCH (RBC) [Entitic mass] 30.3 pg Normal 27.0 - 33.0 pg AO Workflow SS MCHC 33.4 G/dL Normal 32.0 - 36.0 G/dL AO Workflow SS MCV (RBC) [Entitic vol] 90.9 fL Normal 80.0 - 99.0 fL AO Workflow SS Monocytes (Bld) [#/Vol] 1.0 103/mcL Normal 0.1 - 1.4 10^3/mcL AO Workflow SS Monocytes/100 WBC (Bld) 9.6 % Normal 2.0 - 13.0 % AO Workflow SS Neutrophils (Bld) [#/Vol] 5.2 103/mcL Normal 2.3 - 8.1 10^3/mcL AO Workflow SS Neutrophils/100 WBC (Bld) 52.2 % Normal 50.0 - 75.0 % AO Workflow SS Platelet mean volume (Bld) [Entitic vol] 7.2 fL Normal 6.6 - 10.5 fL AO Workflow SS Platelets (Bld) [#/Vol] 279 103/mcL Normal 150 - 450 10^3/mcL AO Workflow SS Potassium [Moles/Vol] 4.1 mmol/L Normal 3.5 - 5.1 mmol/L AO ADM SS RBC (Bld) [#/Vol] 4.89 106/mcL Normal 4.10 - 5.3 0 10^6/mcL AO Workflow SS Sodium [Moles/Vol] 139 mmol/L Normal 136 - 145 mmol/L AO ADM SS Urea nitrogen [Mass/Vol] 13 mg/dL Normal 7 - 18 mg/dL AO ADM SS Urea nitrogen/Creatinine [Mass ratio] 18 ratio Normal 7 - 27 ratio AO ADM SS WBC (Bld) [#/Vol] 10.0 103/mcL Normal 4.5 - 10.8 10^3/mcL AO Workflow SS MGon 08-13-2024 Magnesium [Mass/Vol] 1.8 mg/dL Normal 1.8-2.4 Comment on above: Performed By: #### M G, GFR, CBC, BMP, ANEU, ADIFF ####[place] [address] [place], [place] [address] RESCVIMiguel A 08-13-2024 Adenovirus Not detected Normal Not Detected Comment on above: Performed By: #### R ESCVID #### [facility] [address] [place] [address] Bordetella Parapertussis Not detected Normal Not Detected Comment on above: Performed By: #### R ESCVID #### [facility] [address] [place] [address] Bordetella Pertussis Not detected Normal Not Detected Comment on above: Performed By: #### R ESCVID #### [facility] [address] [place] [address] Chlamydophila pneumoniae Not detected Normal Not Detected Comment on above: Performed By: #### R ESCVID #### [address] [address] Coronavirus 229E (Not COVID-19) Not detected Normal Not Detected Comment on above: Performed By: #### R ESCVID #### [address] [address] Coronavirus HKU1 (Not COVID-19) Not detected Normal Not Detected Comment on above: Performed By: #### R ESCVID #### [address] [address] Coronavirus NL63 (Not COVID-19) Not detected Normal Not Detected Comment on above: Performed By: #### R ESCVID #### [facility] [address] [place] [address] Coronavirus OC43 (Not COVID-19) Not detected Normal Not Detected Comment on above: Performed By: #### R ESCVID #### [facility] [address] [place] [address] Human Metapneumovirus Not detected Normal Not Detected Comment on above: Performed By: #### R ESCVID #### [facility] [address] [place] [address] Influenza A Not detected Normal Not Detected Comment on above: Performed By: #### R ESCVID #### [facility] [address] [place] [address] Influenza B Not detected Normal Not Detected Comment on above: Performed By: #### R ESCVID #### [facility] [address] [place] [address] Mycoplasma pneumoniae Not detected Normal Not Detected Comment on above: Performed By: #### R ESCVID #### [facility] [address] [place] [address] Parainfluenza 1 Not detected Normal Not Detected Comment on above: Performed By: #### R ESCVID #### [facility] [address] [place] [address] Parainfluenza 2 Not detected Normal Not Detected Comment on above: Performed By: #### R ESCVID #### [facility] [address] [place] [address] Parainfluenza 3 Not detected Normal Not Detected Comment on above: Performed By: #### R ESCVID #### [facility] [address] [place] [address] Parainfluenza 4 Not detected Normal Not Detected Comment on above: Performed By: #### R ESCVID #### [facility] [address] [place] [address] Respiratory Syncytial Virus Not detected Normal Not Detected Comment on above: Performed By: #### R ESCVID #### [facility] [address] [place] [address] Rhinovirus/Enterovi kacy Detected Abnormal Not Detected Comment on above: Performed By: #### R ESCVID #### [facility] [address] [place] [address] SARS-CoV-2 (COVID-19) RNA JALIL+probe Ql (Unsp spec) Not detected Normal Not Detected Comment on above: Result Comment: This assay has been validated in the [facility] for use with nasopharyngeal specimens in [facility]. If a non-validated specimen or test collection method was used, please interpret the results with caution, especially if the test result is negative. A positive test result for COVID-19 indicates that RNA from SARS-CoV-2 was detected, and the patient is infected with the virus and presumed to be contagious. Laboratory test results should always be considered in the context of clinical observations and epidemiological data in making a final diagnosis and patient management decisions. Patient management should follow current CDC guidelines. A negative test result for this test means that SARS-CoV-2 RNA was not present in the specimen above the limit of detection. However, a negative result does not rule out COVID-19 and should not be used as the sole basis for treatment or patient management decisions. A negative result does not exclude the possibility of COVID-19. When diagnostic testing is negative, the possibility of a false negative result should be considered in the context of a patient's recent exposures and the presence of clinical signs and symptoms consistent with COVID-19. The possibility of a false negative result should especially be considered if the patient?s recent exposures or clinical presentation indicate that COVID-19 is likely, and diagnostic tests for other causes of illness (e.g., other respiratory illness) are negative. If COVID-19 is still suspected based on exposure history together with other clinical findings, re-testing should be considered by healthcare providers in consultation with public health authorities. Performed By: #### R ESCVID #### [facility] [address] [place] [address] .Auto Diffon 08-12-2024 Basophil, Absolute 0.0 10 3/mcL Normal 0.0-0.2 [facility] Comment on above: Performed By: #### A DIFF, LIP, LAC, CBC, TROPHS, CMP, GFR, ANEU, MDW ####[place] [address] [place], [place] [address] Basophils/100 WBC (Bld) 0.3 % Normal 0.0-2.5 Comment on above: Performed By: #### A DIFF, LIP, LAC, CBC, TROPHS, CMP, GFR, ANEU, MDW ####[address] [address] Eosinophil, Absolute 0.1 10 3/mcL Normal 0.0-0.7 Comment on above: Performed By: #### A DIFF, LIP, LAC, CBC, TROPHS, CMP, GFR, ANEU, MDW ####[address] [place], [place] [address] Eosinophils/100 WBC (Bld) 0.8 % Normal 0.0-7.0 Comment on above: Performed By: #### A DIFF, LIP, LAC, CBC, TROPHS, CMP, GFR, ANEU, MDW ####[place] [address] [place], [place] [address] Lymphocyte, Absolute 3.1 10 3/mcL Normal 0.9-4.3 Comment on above: Performed By: #### A DIFF, LIP, LAC, CBC, TROPHS, CMP, GFR, ANEU, W ####[address] [place], [place] [address] Lymphocytes/100 WBC (Bld) 19.5 % Low 20.0-40.0 Comment on above: Performed By: #### A DIFF, LIP, LAC, CBC, TROPHS, CMP, GFR, ANEU, W ####[address] [place], [place] [address] Monocyte, Absolute 1.4 10 3/mcL Normal 0.1-1.4 [facility] Comment on above: Performed By: #### A DIFF, LIP, LAC, CBC, TROPHS, CMP, GFR, ANEU, W ####[address] [place], [place] [address] Monocytes/100 WBC (Bld) 8.5 % Normal 2.0-13.0 Comment on above: Performed By: #### A DIFF, LIP, LAC, CBC, TROPHS, CMP, GFR, ANEU, MDW ####[address] [place], [place] [address] Neutrophils/100 WBC (Bld) 70.9 % Normal 50.0-75.0 Comment on above: Performed By: #### A DIFF, LIP, LAC, CBC, TROPHS, CMP, GFR, BIJAL GRIJALVA ####[place] [address] [place], [place] [address] .GFRon 08-12-2024 GFR 101 ml/min/1.73sqm Normal Comment on above: Result Comment: GFR Population mean for , Non- Americans Ages 20-29 = 116 mL/min/1.73 sq.m. Ages 30-39 = 107 mL/min/1.73 sq.m. Ages 40-49 = 99 mL/min/1.73 sq.m. Ages 50-59 = 93 mL/min/1.73 sq.m. Ages 60-69 = 85 mL/min/1.73 sq.m. Ages 70+ = 75 mL/min/1.73 sq.m. Chronic Kidney Disease: Less than 60 mL/min/1.73 square meters End Stage Renal Disease: Less than 15 mL/min/1.73 square meters Performed By: #### A DIFF, LIP, LAC, CBC, TROPHS, CMP, GFR, BIJAL GRIJALVA ####[facility] [place], [place] [address] GFR Non- 83 ml/min/1.73sqm Normal Comment on above: Result Comment: GFR Population mean for , Non- Americans Ages 20-29 = 116 mL/min/1.73 sq.m. Ages 30-39 = 107 mL/min/1.73 sq.m. Ages 40-49 = 99 mL/min/1.73 sq.m. Ages 50-59 = 93 mL/min/1.73 sq.m. Ages 60-69 = 85 mL/min/1.73 sq.m. Ages 70+ = 75 mL/min/1.73 sq.m. Chronic Kidney Disease: Less than 60 mL/min/1.73 square meters End Stage Renal Disease: Less than 15 mL/min/1.73 square meters Performed By: #### A DIFF, LIP, LAC, CBC, TROPHS, CMP, GFR, BIJAL GRIJALVA ####[facility] [place] [address] .MDWon 08-12-2024 Monocyte Distribution Width 18.91 Normal 0.00-20.00 Comment on above: Result Comment: For ED adult patients suspected of sepsis, MDW<=20.0 does not rule out sepsis or risk of sepsis Performed By: #### A DIFF, LIP, LAC, CBC, TROPHS, CMP, GFR, ANEU, W ####[address] [place] [address] .NEUABSon 08-12-2024 Neutrophil, Absolute 11.4 10 3/mcL High 2.3-8.1 Comment on above: Performed By: #### A DIFF, LIP, LAC, CBC, TROPHS, CMP, GFR, ANEU, W ####[place] [address] [place] [address] .Urinalysis Microscopic (AO) on 08-12-2024 UA Mucous 3+ /hpf Normal Comment on above: Performed By: #### U A, UAMICAO ####[place] [address] [place] [address] UA RBC None Seen Normal None Seen Comment on above: Performed By: #### U A UAMICAO ####Daniel [address] [place] [address] UA Squam Epithelial 15-25 Abnormal None Seen [facility] Comment on above: Performed By: #### U A, UAMICAO ####[address] [place] [address] UA WBC 0-5 Abnormal None Seen Comment on above: Performed By: #### U A, UAMICAO ####[place] [address] [place] [address] CBCon 08-12-2024 Erythrocyte distribution width (RBC) [Ratio] 12.9 % Normal 11.5-15.5 Comment on above: Performed By: #### A DIFF, LIP, LAC, CBC, TROPHS, CMP, GFR, ANEU, W ####[address] [address] Hematocrit (Bld) [Volume fraction] 50.0 % High 34.0-46.0 Comment on above: Performed By: #### A DIFF, LIP, LAC, CBC, TROPHS, CMP, GFR, ANEUBIJAL ####Daniel [address] [place], [place] [address] Hgb 17.1 G/dL High 12.0-16.0 Comment on above: Performed By: #### A DIFF, LIP, LAC, CBC, TROPHS, CMP, GFR, BIJAL GRIJALVA ####[place] [address] [place] [address] MCH (RBC) [Entitic mass] 30.3 pg Normal 27.0-33.0 Comment on above: Performed By: #### A DIFF, LIP, LAC, CBC, TROPHS, CMP, GFR, BIJAL GRIJALVA ####[address] [address] MCHC 34.1 G/dL Normal 32.0-36.0 Comment on above: Performed By: #### A DIFF, LIP, LAC, CBC, TROPHS, CMP, GFR, BIJAL GRIJALVA ####Daniel [address] [place], [place] [address] MCV (RBC) [Entitic vol] 88.8 fL Normal 80.0-99.0 Comment on above: Performed By: #### A DIFF, LIP, LAC, CBC, TROPHS, CMP, GFR, BIJAL GRIJALVA ####Daniel [address] [address] Platelet 383 10 3/mcL Normal 150-450 Comment on above: Performed By: #### A DIFF, LIP, LAC, CBC, TROPHS, CMP, GFR, BIJAL GRIJALVA ####[address] [place], [place] [address] Platelet mean volume (Bld) [Entitic vol] 7.4 fL Normal 6.6-10.5 Comment on above: Performed By: #### A DIFF, LIP, LAC, CBC, TROPHS, CMP, GFR, ANEU, BIJAL ####Daniel [address] [place], [place] [address] RBC 5.63 10 6/mcL High 4.10-5.30 Comment on above: Performed By: #### A DIFF, LIP, LAC, CBC, TROPHS, CMP, GFR, ANEU, W ####Daniel [address] [place], [place] [address] WBC 16.0 10 3/mcL High 4.5-10.8 Comment on above: Performed By: #### A DIFF, LIP, LAC, CBC, TROPHS, CMP, GFR, ANEU, BIJAL ####[address] [place], [place] [address] CMPon 08-12-2024 Albumin Level 3.6 G/dL Normal 3.5-5.0 Comment on above: Performed By: #### A DIFF, LIP, LAC, CBC, TROPHS, CMP, GFR, ANEU, BIJAL ####[address] [place], [place] [address] Albumin/Globulin [Mass ratio] 0.9 {ratio} Low 1.1-2.5 Comment on above: Performed By: #### A DIFF, LIP, LAC, CBC, TROPHS, CMP, GFR, ANEU, BIJAL ####Daniel [address] [place], [place] [address] ALP [Catalytic activity/Vol] 130 U/L Normal 40-135 Comment on above: Performed By: #### A DIFF, LIP, LAC, CBC, TROPHS, CMP, GFR, ANEUBIJAL ####[place] [address] [place], [place] [address] ALT [Catalytic activity/Vol] 100 U/L High 14-59 Comment on above: Performed By: #### A DIFF, LIP, LAC, CBC, TROPHS, CMP, GFR, ANEUBIJAL ####Daniel [address] [place], [place] [address] AST [Catalytic activity/Vol] 74 U/L High 10-40 Comment on above: Performed By: #### A DIFF, LIP, LAC, CBC, TROPHS, CMP, GFR, BIJAL GRIJALVA ####[place] [address] [place], [place] [address] Bili Total 0.9 mg/dL Normal 0.2-1.0 Comment on above: Result Comment: Use of this assay is not recommended for patients undergoing treatment with eltrombopag due to the potential for falsely elevated results. Performed By: #### A DIFF, LIP, LAC, CBC, TROPHS, CMP, GFR, BIJAL GRIJALVA ####Daniel [address] [place] [address] BUN/Creatinine Ratio 28 ratio High 7-27 Comment on above: Performed By: #### A DIFF, LIP, LAC, CBC, TROPHS, CMP, GFR, BIJAL GRIJALVA ####[place] [address] [place], [place] [address] Calcium [Mass/Vol] 10.1 mg/dL Normal 8.4-10.2 [facility] Comment on above: Performed By: #### A DIFF, LIP, LAC, CBC, TROPHS, CMP, GFR, BIJAL GRIJALVA ####[place] [address] [place], [place] [address] Chloride [Moles/Vol] 100 mmol/L Normal 98-107 Comment on above: Performed By: #### A DIFF, LIP, LAC, CBC, TROPHS, CMP, GFR, BIJAL GRIJALVA ####[facility] [place], [place] [address] CO2 [Moles/Vol] 17 mmol/L Low 22-29 Comment on above: Performed By: #### A DIFF, LIP, LAC, CBC, TROPHS, CMP, GFR, BIJAL GRIJALVA ####[facility] [place], [place] [address] Creatinine [Mass/Vol] 0.72 mg/dL Normal 0.55-1.02 Comment on above: Result Comment: Test ing performed on Siemens Dimension EXL analyzer using a modified kinetic Melinda technique. Performed By: #### A DIFF, LIP, LAC, CBC, TROPHS, CMP, GFR, ANEUBIJAL ####[facility] [place], [place] [address] Electrolyte Balance 17.0 mEq/L High 4.0-15.0 [facility] Comment on above: Performed By: #### A DIFF, LIP, LAC, CBC, TROPHS, CMP, GFR, ANEU, BIJAL ####[facility] [place], [place] [address] Globulin 4.2 G/dL Normal Comment on above: Performed By: #### A DIFF, LIP, LAC, CBC, TROPHS, CMP, GFR, ANEU, BIJAL ####[facility], [place] [address] Glucose [Mass/Vol] 315 mg/dL High 70-105 [facility] Comment on above: Performed By: #### A DIFF, LIP, LAC, CBC, TROPHS, CMP, GFR, BIJAL GRIJALVA ####Daniel [address] [place], [place] [address] Potassium [Moles/Vol] 5.0 mmol/L Normal 3.5-5.1 Comment on above: Performed By: #### A DIFF, LIP, LAC, CBC, TROPHS, CMP, GFR, ANEU, BIJAL ####Daniel [address] [place], [place] [address] Sodium [Moles/Vol] 134 mmol/L Low 136-145 [facility] Comment on above: Performed By: #### A DIFF, LIP, LAC, CBC, TROPHS, CMP, GFR, BIJAL GRIJALVA ####Daniel [address] [place], [place] [address] Total Protein 7.8 G/dL Normal 6.4-8.2 Comment on above: Performed By: #### A DIFF, LIP, LAC, CBC, TROPHS, CMP, GFR, ANEUBIJAL ####Daniel [address] [place], [place] [address] Urea nitrogen [Mass/Vol] 20 mg/dL High 7-18 Comment on above: Performed By: #### A DIFF, LIP, LAC, CBC, TROPHS, CMP, GFR, ANEU, MDW ####[facility] [place], [place] [address] CT ABD/PELVIS W/ IV CONTRAST ONLYon 08-12-2024 CT ABD/PELVIS W/ IV CONTRAST ONLY ORIGINAL EXAMINATION: CT OF THE ABDOMEN AND PELVIS WITH CONTRAST08/12/2024 4:24 pm TECHNIQUE: CT of the abdomen and pelvis was performed with the administration of intravenous contrast. Multiplanar reformatted images are provided for review. Automated exposure control, iterative reconstruction, and/or weight based adjustment of the mA/kV was utilized to reduce the radiation dose to as low as reasonably achievable. COMPARISON: None HISTORY: ORDERING SYSTEM PROVIDED HISTORY: Reason for Exam: intractable vomiting FINDINGS: Small ground-glass opacity in posterior right lower lobe. No pleural effusion or pericardial effusion.. The liver, spleen, adrenal glands, and pancreas are within normal limits. The gallbladder is surgically absent. The kidneys enhance symmetrically. The large and small bowel demonstrate no obstruction. The appendix is surgically absent. No free intraperitoneal fluid or gas is identified. Surgical clip in mid omental region. The aorta is normal in caliber. There is no lymphadenopathy. Uterus is surgically absent. Bladder is partially decompressed. The abdominal wall is unremarkable. There is no acute fracture or aggressive osseous lesion. Degenerative changes in spine. IMPRESSION: Small ground-glass opacity in posterior right lower lobe, in the setting of vomiting possible sequela of aspiration versus infectious etiology. Otherwise no acute findings. I have personally reviewed the images of this examination and agree with the resident's findings and interpretation. Interpreted by: Marino Zuluaga Preliminary Report By: Baldemar Pride Electronically signed By Marino Zuluaga Dictated Date: 08/12/2024 4:25:37 PM Prelim Date: 08/12/2024 4:34:12 PM Sign Date: 08/12/2024 4:38:38 PM Ordering Provider: JERAD GARCIA Normal CVFLURVon 08-12-2024 FLU A PCR Negative Normal Negative Comment on above: Performed By: #### C VFLURV ####[facility] [place], [place] [address] FLU B PCR Negative Normal Negative Comment on above: Performed By: #### C VFLURV ####[facility] [place], [place] [address] RSV PCR Negative Normal Negative Comment on above: Performed By: #### C VFLURV ####[place] [address] SARS-CoV-2 (COVID-19) RNA JALIL+probe Ql (Unsp spec) Negative Normal Negative Comment on above: Result Comment: Resu lts from the Xpert Xpress CoV-2/Flu/RSV plus test should be correlated with the clinical history, epidemiological data, and other data available to the clinical evaluating the patient. Performance of the Xpert Xpress CoV-2/Flu/RSV plus test has only been established in nasopharyngeal swab specimen. Erroneous test results might occur from improper specimen collection, failure to follow the recommended sample collection, handling and storage procedures, technical error, or sample mix-up. False negative results may occur if a virus is present at a level below the analytical limit of detection. Viral nucleic acid may persist in vivo, independent of virus viability. Detection of analyte target(s) does not imply that the corresponding virus(es) are infectious or are the causative agents for clinical symptoms. Recent patient exposure to FluMist or other live attenuated influenza vaccines may cause inaccurate positive results. Performed By: #### C VFLURV ####[place] [id number] LABORATORYOrdered By: Edgardo Garcia on 08-12-2024 M. pneumoniae IgM IA Ql (S) Negative 10 (08/12/24 10:52 PM) Normal AH Man Viro/Sero SS Comment on above: Interpretive Data: I NTERPRETATION OF MYCOPLASMA IgM: Negative: IgM to M. pneumoniae Absent, or at levels below the assay limit of detection. Positive: IgM to M. pneumoniae Present. Invalid: Test results are invalid due to invalid internal control. Assay was performed in duplicate. Repeat testing is suggested if clinically indicated. LABORATORYOrdered By: Veda Rosas on 08-12-2024 Continue Glucose Monitor Site Condition: No complications (08/12/24 10:13 PM) [facility] Work Phone: Glucose [Mass/Vol] 207 mg/dL [facility] Work Phone: Time of Stated Blood Glucose [phone] [facility] Work Phone: LABORATORYOrdered By: SYSTEM SYSTEM on 08-12-2024 Lactate [Moles/Vol] 1.6 mmol/L Normal 0.4 - 2. 0 mmol/L AO ADM SS Troponin I.cardiac DL <= 0.01 ng/mL [Mass/Vol] 4 ng/L Normal 0 - 51 ng/L AO ADM SS Comment on above: Interpretive Data: H igh Sensitive Troponin I Reference Ranges: Female: 0-51 ng/L Male: 0-76 ng/L Testing performed on [employer] using a homogeneous sandwich chemiluminescent immunoassay based on [employer] technology. Lactate [Moles/Vol] 2.6 mmol/L High 0.4 - 2. 0 mmol/L AO ADM SS Albumin BCP dye [Mass/Vol] 3.6 G/dL Normal 3.5 - 5.0 G/dL AO ADM SS Albumin/Globulin [Mass ratio] 0.9 {ratio} Low 1.1 - 2.5 ratio AO ADM SS ALP [Catalytic activity/Vol] 130 U/L Normal 40 - 135 U/L AO ADM SS ALT With P-5'-P [Catalytic activity/Vol] 100 U/L High 14 - 59 U/L AO ADM SS AST With P-5'-P [Catalytic activity/Vol] 74 U/L High 10 - 40 U/L AO ADM SS Basophils (Bld) [#/Vol] 0.0 103/mcL Normal 0.0 - 0.2 10^3/mcL AO Workflow SS Basophils/100 WBC (Bld) 0.3 % Normal 0.0 - 2.5 % AO Workflow SS Bilirubin [Mass/Vol] 0.9 mg/dL Normal 0.2 - 1.0 mg/dL AO ADM SS Comment on above: Interpretive Data: U se of this assay is not recommended for patients undergoing treatment with eltrombopag due to the potential for falsely elevated results. Calcium [Mass/Vol] 10.1 mg/dL Normal 8.4 - 10. 2 mg/dL AO ADM SS Chloride [Moles/Vol] 100 mmol/L Normal 98 - 107 mmol/L AO ADM SS CO2 [Moles/Vol] 17 mmol/L Low 22 - 29 mmol/L AO ADM SS Creatinine [Mass/Vol] 0.72 mg/dL Normal 0.55 - 1.02 mg/dL AO ADM SS Comment on above: Interpretive Data: T esting performed on Siemens Dimension EXL analyzer using a modified kinetic Melinda technique. Electrolyte Balance 17.0 mEq/L High 4.0 - 15 .0 mEq/L AO ADM SS Eosinophil, Absolute 0.1 103/mcL Normal 0.0 - 0.7 10^3/mcL AO Workflow SS Eosinophils/100 WBC (Bld) 0.8 % Normal 0.0 - 7.0 % AO Workflow SS Erythrocyte distribution width (RBC) [Ratio] 12.9 % Normal 11.5 - 15.5 % AO Workflow SS GFR/1.73 sq M.predicted among blacks MDRD (S/P/Bld) [Vol rate/Area] 101 ml/min/1.73sqm Invalid Interpretation Code AO Chemistry S Comment on above: Interpretive Data: GFR Population mean for , Non- Americans Ages 20-29 = 116 mL/min/1.73 sq.m. Ages 30-39 = 107 mL/min/1.73 sq.m. Ages 40-49 = 99 mL/min/1.73 sq.m. Ages 50-59 = 93 mL/min/1.73 sq.m. Ages 60-69 = 85 mL/min/1.73 sq.m. Ages 70+ = 75 mL/min/1.73 sq.m. Chronic Kidney Disease: Less than 60 mL/min/1.73 square meters End Stage Renal Disease: Less than 15 mL/min/1.73 square meters GFR/1.73 sq M.predicted among non-blacks MDRD (S/P/Bld) [Vol rate/Area] 83 ml/min/1.73sqm Invalid Interpretation Code AO Chemistry S Comment on above: Interpretive Data: GFR Population mean for , Non- Americans Ages 20-29 = 116 mL/min/1.73 sq.m. Ages 30-39 = 107 mL/min/1.73 sq.m. Ages 40-49 = 99 mL/min/1.73 sq.m. Ages 50-59 = 93 mL/min/1.73 sq.m. Ages 60-69 = 85 mL/min/1.73 sq.m. Ages 70+ = 75 mL/min/1.73 sq.m. Chronic Kidney Disease: Less than 60 mL/min/1.73 square meters End Stage Renal Disease: Less than 15 mL/min/1.73 square meters Globulin 4.2 G/dL Invalid Interpretation Code AO ADM SS Glucose [Mass/Vol] 315 mg/dL High 70 - 105 mg/dL AO ADM SS Hematocrit (Bld) [Volume fraction] 50.0 % High 34.0 - 46.0 % AO Workflow SS Hemoglobin (Bld) [Mass/Vol] 17.1 G/dL High 12.0 - 16.0 G/dL AO Workflow SS Lipase [Catalytic activity/Vol] 41 U/L Normal 16 - 77 U/L AO ADM SS Lymphocytes (Bld) [#/Vol] 3.1 103/mcL Normal 0.9 - 4.3 10^3/mcL AO Workflow SS Lymphocytes/100 WBC (Bld) 19.5 % Low 20.0 - 40.0 % AO Workflow SS MCH (RBC) [Entitic mass] 30.3 pg Normal 27.0 - 33.0 pg AO Workflow SS MCHC 34.1 G/dL Normal 32.0 - 36.0 G/dL AO Workflow SS MCV (RBC) [Entitic vol] 88.8 fL Normal 80.0 - 99.0 fL AO Workflow SS Monocyte distribution width Auto (Bld) [Entitic vol] 18.91 1 Normal 0.00 - 20.00 AO Workflow SS Comment on above: Result Comment: For ED adult patients suspected of sepsis, MDW<=20.0 does not rule out sepsis or risk of sepsis Monocytes (Bld) [#/Vol] 1.4 103/mcL Normal 0.1 - 1.4 10^3/mcL AO Workflow SS Monocytes/100 WBC (Bld) 8.5 % Normal 2.0 - 13.0 % AO Workflow SS Neutrophils (Bld) [#/Vol] 11.4 103/mcL High 2.3 - 8.1 10^3/mcL AO Workflow SS Neutrophils/100 WBC (Bld) 70.9 % Normal 50.0 - 75.0 % AO Workflow SS Platelet mean volume (Bld) [Entitic vol] 7.4 fL Normal 6.6 - 10.5 fL AO Workflow SS Platelets (Bld) [#/Vol] 383 103/mcL Normal 150 - 450 10^3/mcL AO Workflow SS Potassium [Moles/Vol] 5.0 mmol/L Normal 3.5 - 5.1 mmol/L AO ADM SS Protein [Mass/Vol] 7.8 G/dL Normal 6.4 - 8.2 G/dL AO ADM SS RBC (Bld) [#/Vol] 5.63 106/mcL High 4.10 - 5.3 0 10^6/mcL AO Workflow SS Sodium [Moles/Vol] 134 mmol/L Low 136 - 145 mmol/L AO ADM SS Urea nitrogen [Mass/Vol] 20 mg/dL High 7 - 18 mg/dL AO ADM SS Urea nitrogen/Creatinine [Mass ratio] 28 ratio High 7 - 27 ratio AO ADM SS WBC (Bld) [#/Vol] 16.0 103/mcL High 4.5 - 10.8 10^3/mcL AO Workflow SS LABORATORYOrdered By: Angie Avila on 08-12-2024 Adenovirus DNA JALIL+non-probe Ql (Nph) Not Detected *NA* (08/12/24 2:56 PM) Invalid Interpretation Code Not Detected AH Auto Viro/Sero SS B. parapertussis [id number] DNA JALIL+non-probe Ql (Nph) Not Detected *NA* (08/12/24 2:56 PM) Invalid Interpretation Code Not Detected AH Auto Viro/Sero SS B. pertussis toxin promoter region JALIL+non-probe Ql (Nph) Not Detected *NA* (08/12/24 2:56 PM) Invalid Interpretation Code Not Detected AH Auto Viro/Sero SS C. pneumoniae DNA JALIL+non-probe Ql (Nph) Not Detected *NA* (08/12/24 2:56 PM) Invalid Interpretation Code Not Detected AH Auto Viro/Sero SS FLUAV RNA JALIL+non-probe Ql (Nph) Not Detected *NA* (08/12/24 2:56 PM) Invalid Interpretation Code Not Detected AH Auto Viro/Sero SS FLUBV RNA JALIL+non-probe Ql (Nph) Not Detected *NA* (08/12/24 2:56 PM) Invalid Interpretation Code Not Detected AH Auto Viro/Sero SS hMPV RNA JALIL+non-probe Ql (Nph) Not Detected *NA* (08/12/24 2:56 PM) Invalid Interpretation Code Not Detected AH Auto Viro/Sero SS M. pneumoniae DNA JALIL+non-probe Ql (Nph) Not Detected *NA* (08/12/24 2:56 PM) Invalid Interpretation Code Not Detected AH Auto Viro/Sero SS Parainfluenza virus 1 RNA JALIL+non-probe Ql (Nph) Not Detected *NA* (08/12/24 2:56 PM) Invalid Interpretation Code Not Detected AH Auto Viro/Sero SS Parainfluenza virus 2 RNA JALIL+non-probe Ql (Nph) Not Detected *NA* (08/12/24 2:56 PM) Invalid Interpretation Code Not Detected AH Auto Viro/Sero SS Parainfluenza virus 3 RNA JALIL+non-probe Ql (Nph) Not Detected *NA* (08/12/24 2:56 PM) Invalid Interpretation Code Not Detected AH Auto Viro/Sero SS Parainfluenza virus 4 RNA JALIL+non-probe Ql (Nph) Not Detected *NA* (08/12/24 2:56 PM) Invalid Interpretation Code Not Detected AH Auto Viro/Sero SS Rhinovirus+Enterovi kacy RNA JALIL+non-probe Ql (Nph) Detected *ABN* (08/12/24 2:56 PM) Invalid Interpretation Code Not Detected AH Auto Viro/Sero SS RSV RNA JALIL+non-probe Ql (Nph) Not Detected *NA* (08/12/24 2:56 PM) Invalid Interpretation Code Not Detected AH Auto Viro/Sero SS SARS-CoV-2 (COVID-19) RNA JALIL+probe Ql (Resp) Not Detected 5 *NA* (08/12/24 2:56 PM) Invalid Interpretation Code Not Detected AH Auto Viro/Sero SS Comment on above: Interpretive Data: T his assay has been validated in the [facility] for use with nasopharyngeal specimens in [facility]. If a non-validated specimen or test collection method was used, please interpret the results with caution, especially if the test result is negative. A positive test result for COVID-19 indicates that RNA from SARS-CoV-2 was detected, and the patient is infected with the virus and presumed to be contagious. Laboratory test results should always be considered in the context of clinical observations and epidemiological data in making a final diagnosis and patient management decisions. Patient management should follow current CDC guidelines. A negative test result for this test means that SARS-CoV-2 RNA was not present in the specimen above the limit of detection. However, a negative result does not rule out COVID-19 and should not be used as the sole basis for treatment or patient management decisions. A negative result does not exclude the possibility of COVID-19. When diagnostic testing is negative, the possibility of a false negative result should be considered in the context of a patient's recent exposures and the presence of clinical signs and symptoms consistent with COVID-19. The possibility of a false negative result should especially be considered if the patient s recent exposures or clinical presentation indicate that COVID-19 is likely, and diagnostic tests for other causes of illness (e.g., other respiratory illness) are negative. If COVID-19 is still suspected based on exposure history together with other clinical findings, re-testing should be considered by healthcare providers in consultation with public health authorities. LABORATORYOrdered By: Monie Byrnes on 08-12-2024 FLUAV RNA JALIL+probe Ql (Resp) Negative (08/12/24 2:56 PM) Normal Negative AO Auto Urine SS FLUBV RNA JALIL+probe Ql (Resp) Negative (08/12/24 2:56 PM) Normal Negative AO Auto Urine SS RSV RNA JALIL+probe Ql (Resp) Negative (08/12/24 2:56 PM) Normal Negative AO Auto Urine SS SARS-CoV-2 (COVID-19) RNA JALIL+probe Ql (Resp) Negative 9 (08/12/24 2:56 PM) Normal Negative AO Auto Urine SS Comment on above: Interpretive Data: R esults from the Xpert Xpress CoV-2/Flu/RSV plus test should be correlated with the clinical history, epidemiological data, and other data available to the clinical evaluating the patient. Performance of the Xpert Xpress CoV-2/Flu/RSV plus test has only been established in nasopharyngeal swab specimen. Erroneous test results might occur from improper specimen collection, failure to follow the recommended sample collection, handling and storage procedures, technical error, or sample mix-up. False negative results may occur if a virus is present at a level below the analytical limit of detection. Viral nucleic acid may persist in vivo, independent of virus viability. Detection of analyte target(s) does not imply that the corresponding virus(es) are infectious or are the causative agents for clinical symptoms. Recent patient exposure to FluMist or other live attenuated influenza vaccines may cause inaccurate positive results. UA Mucous 3+ /HPF Normal AO Auto Urine SS UA RBC None Seen /HPF Normal None Seen AO Auto Urine SS UA Squam Epithelial 15-25 /HPF Invalid Interpretation Code None Seen AO Auto Urine SS WBC LM.HPF (Urine sed) [#/Area] 0-5 /HPF Invalid Interpretation Code None Seen AO Auto Urine SS LABORATORYOrdered By: Edgardo Oliveros on 08-12-2024 Appearance (U) Cloudy *ABN* (08/12/24 2:47 PM) Invalid Interpretation Code Clear AO Auto Urine SS Bilirubin Ql (U) Small 6 *ABN* (08/12/24 2:47 PM) Invalid Interpretation Code Negative AO Auto Urine SS Comment on above: Result Comment: Sugg est correlation with serum bilirubin and clinical findings if medically necessary. Color (U) Dark yellow Invalid Interpretation Code AO Auto Urine SS Glucose Test strip (U) [Mass/Vol] 500 mg/dL Invalid Interpretation Code Negative AO Auto Urine SS Hemoglobin Auto test strip (U) [Mass/Vol] Negative (08/12/24 2:47 PM) Normal Negative AO Auto Urine SS Ketones Ql (U) Trace mg/dL Invalid Interpretation Code Negative AO Auto Urine SS UA Leuk Est Negative (08/12/24 2:47 PM) Normal Negative AO Auto Urine SS UA Nitrite Negative (08/12/24 2:47 PM) Normal Negative AO Auto Urine SS UA pH 6.0 (08/12/24 2:47 PM) Normal 5.0 - 8.0 AO Auto Urine SS UA Protein 100 mg/dL Invalid Interpretation Code Negative AO Auto Urine SS UA Spec Grav >=1.030 *ABN* (08/12/24 2:47 PM) Invalid Interpretation Code 1.015-1.025 AO Auto Urine SS UA Specimen Type Clean Catch (08/12/24 2:47 PM) Normal AO Auto Urine SS UA Urobilinogen 0.2 E.U./dL Normal 0.2-1.0 AO Auto Urine SS LACon 08-12-2024 Lactic Acid Lvl 1.6 mmol/L Normal 0.4-2.0 Comment on above: Order Comment: Order ed secondary to Lactic Acid result greater than or equal to 2.0 Performed By: #### L AC ####[facility] [address] [place], [place] [address] Lactic Acid Lvl 2.6 mmol/L High 0.4-2.0 Comment on above: Performed By: #### A DIFF, LIP, LAC, CBC, TROPHS, CMP, GFR, ANEU, MDW ####Daniel [address] [place], [place] [address] LIPon 08-12-2024 Lipase Level 41 U/L Normal 16-77 Comment on above: Performed By: #### A DIFF, LIP, LAC, CBC, TROPHS, CMP, GFR, ANEU, MDW ####[facility] [place], [place] [address] No Panel Informationon 08-12 Microscopic examination of blood, culture Culture has been received in lab and is no growth to date. Routine cultures are held for 5 days. [facility] Work Phone: Legionella Urine Ag Presumptive negative for L. pneumophila serogroup 1 antigen in urine, suggesting no recent or current infection. Legionnaire's disease cannot be ruled out since other serogroups and species may also cause disease. [facility] Work Phone: Streptococcus Pneumoniae Urine Antig Presumptive negative for pneumococcal pneumonia, suggesting no current or recent pneumococcal infection. Infection due to Strep pneumoniae cannot be ruled out since the antigen present in the sample may be below the detection limit of the test. [facility] Work Phone: Comment on above: This test has not be en evaluated on patients taking antibiotics for greater than 24 hours or on patients who have recently completed an antibiotic regimen. The accuracy of this test has not been proven in young children. TROPHSon 08-12-2024 High Sensitivity Troponin I 4 ng/L Normal 0-51 Comment on above: Result Comment: High Sensitive Troponin I Reference Ranges: Female: 0-51 ng/L Male: 0-76 ng/L Testing performed on [employer] using a homogeneous sandwich chemiluminescent immunoassay based on [employer] technology. Performed By: #### A DIFF, LIP, LAC, CBC, TROPHS, CMP, GFR, ANEU, MDW ####[address] [place] [place] [address] UAon 08-12-2024 Color (U) Dark yellow Normal Comment on above: Performed By: #### U A, UAMICAO ####[address] [place] [place] [address] Glucose (U) [Mass/Vol] 500 mg/dL Abnormal Negative Comment on above: Performed By: #### U A, UAMICAO ####[address] [place] [place] [address] Ketones Ql (U) Trace Abnormal Negative Comment on above: Performed By: #### U A, UAMICAO ####[address] [place] [place] [address] UA Appear Cloudy Abnormal Clear Comment on above: Performed By: #### U A, UAMICAO ####[address] [place] [place] [address] UA Bili Small Abnormal Negative Comment on above: Result Comment: Sugg est correlation with serum bilirubin and clinical findings if medically necessary. Performed By: #### U A, UAMICAO ####[address] [place] [place] [address] UA Blood Negative Normal Negative Comment on above: Performed By: #### U A, UAMICAO ####[address] [place] [place] [address] UA Leuk Est Negative Normal Negative Comment on above: Performed By: #### U A, UAMICAO ####[address] [place] [place] [address] UA Nitrite Negative Normal Negative Comment on above: Performed By: #### U A, UAMICAO ####[address] [place] [place], [place] [address] UA pH 6.0 Normal 5.0 - 8.0 Comment on above: Performed By: #### U A, UAMICAO ####Daniel [address] [place], [place] [address] UA Protein 100 mg/dL Abnormal Negative Comment on above: Performed By: #### U A UAMICAO ####[address] [place] [place], [place] [address] UA Spec Grav >=1.030 Abnormal 1.015-1.025 Comment on above: Performed By: #### U A UAMICAO ####Daniel [address] [place] [address] UA Specimen Type Clean Catch Normal Comment on above: Performed By: #### U A UAMICAO ####Daniel [address] [place] [address] UA Urobilinogen 0.2 E.U./dL Normal 0.2-1.0 Comment on above: Performed By: #### U A UAMICAO ####[place] [address] [place] [address] XR CHEST 1 VIEWon 08-12-2024 XR CHEST 1 VIEW ORIGINAL EXAMINATION: ONE XRAY VIEW OF THE CHEST 08/12/2024 3:38 pm COMPARISON: 09/20/2020 HISTORY: ORDERING SYSTEM PROVIDED HISTORY: Reason for Exam: cough IMPRESSION: Mild rotation to the left. Stable cardiomediastinal silhouette. No overt edema. No focal consolidation. Costophrenic angles are sharp. No pneumothorax. No acute skeletal abnormality. Lower cervical spine ACDF. No acute cardiopulmonary process. Interpreted by: Nader Connell Preliminary Report By: Nader Connell Electronically signed By Nader Connell Dictated Date: 08/12/2024 3:43:07 PM Prelim Date: 08/12/2024 3:43:51 PM Sign Date: 08/12/2024 3:43:51 PM Ordering Provider: JERAD Nelson Urgent Care Visit Reporton 0 08-05-2024 Urgent Care Visit Report [facility] [address], [address] [place] [id number] OFFICE VISIT Date of Service: 08/05/24 MR#: [id number] Acct: [id number] Name: CHRISSY LAY Rep #: [id number] : 1965 Provider: CHEPE Pro Age/Sex: 59/F Location: [facility] [place] Status: Signed Intake Vital Signs 07/19/24 10:27 08/05/24 10:47 Height 5 ft 8 in 5 ft 8 in Weight: 231 lb 2 oz 234 lb 8 oz BMI 35.1 35.6 BP 159/98 H 124/84 H Blood Pressure Location Lt brachial Rt brachial Position Sitting Sitting Pulse 93 91 Pulse Source Monitor Temp 98.2 F Temp Source Oral Pulse Oximetry (%) 96 97 Oxygen Delivery Method room air room air Intake Visit Reasons: CONCERN FOR SINUS INFECTION Chief Complaint: Sinus congestion/pressure and pain Allergies clindamycin Allergy (Mild, Verified 08/05/24 17:35) Rash adalimumab (From Humira) Allergy (Verified 08/05/24 17:35) Unknown amoxicillin trihydrate (From Augmentin) Allergy (Verified 08/05/24 17:35) Unknown codeine Allergy (Verified 08/05/24 17:35) Itching etanercept (From Enbrel) Allergy (Verified 08/05/24 17:35) Unknown leflunomide (From Arava) Allergy (Verified 08/05/24 17:35) Other metoprolol tartrate (From Lopressor) Allergy (Verified 08/05/24 17:35) Unknown morphine sulfate (From Embeda) Allergy (Verified 08/05/24 17:35) Unknown naltrexone HCl (From Embeda) Allergy (Verified 08/05/24 17:35) Unknown oxymorphone (Oxymorphone) Allergy (Verified 08/05/24 17:35) Unknown pioglitazone HCl (From Actos) Allergy (Verified 08/05/24 17:35) Other pneumococcal 23-valent polysacchari (From Pneumovax 23) Allergy (Verified 08/05/24 17:35) Unknown potassium clavulanate (From Augmentin) Allergy (Verified 08/05/24 17:35) Unknown Flsevou-UKZ-IoH Reductase Inhibitor (Abcohud-Xcg-Qeq Reductase Inhibitor) Allergy (Verified 08/05/24 17:35) Unknown Sulfa (Sulfonamide Antibiotics) Allergy (Verified 08/05/24 17:35) Anaphylaxis sulfamethoxazole (From Bactrim) Allergy (Verified 08/05/24 17:35) Anaphylaxis telithromycin (From Ketek) Allergy (Verified 08/05/24 17:35) Unknown tramadol HCl (From Ultram) Allergy (Verified 08/05/24 17:35) Unknown trimethoprim (From Bactrim) Allergy (Verified 08/05/24 17:35) Anaphylaxis Medications ???Medication ???Instructions ???Recorded ???Confirmed ???Type ezetimibe 10 mg tablet 10 mg PO DAILY CHOLESTEROL #90 tabs 04/19/21 08/05/24 Rx diphenhydramine HCl 25 mg capsule 25 mg PO DAILY PRN allergy symptoms 03/28/22 08/05/24 History cyclobenzaprine 10 mg tablet 10 mg PO TID PRN Muscle Spasm #20 09/30/22 08/05/24 Rx TABLETS duloxetine 60 mg capsule,delayed 120 mg (2 x 60 mg) PO DAILY 10/15/22 08/05/24 Rx release ANXIETY 30 days #60 caps albuterol sulfate 90 mcg/actuation 2 puff inhalation Q4H PRN PRN 01/04/23 08/05/24 Rx aerosol inhaler (Ventolin HFA) Wheezing or shortness of breath #1 inh pen needle, diabetic 32 gauge x #100 ea 03/05/23 08/05/24 Rx 5/32 (BD Ultra-Fine Thais Pen Needle) alcohol swabs 1 pad topical 4X/DAY #200 ea 04/28/23 08/05/24 Rx ondansetron 4 mg disintegrating 4 mg PO Q6H PRN nausea and 04/28/23 08/05/24 Rx tablet vomiting #10 tabs meclizine 25 mg tablet 25 mg PO TID PRN dizziness #30 tabs 05/23/23 08/05/24 Rx allopurinol 100 mg tablet 100 mg PO DAILY 06/18/23 08/05/24 History pen needle, diabetic 32 gauge x #100 ea 10/23/23 08/05/24 Rx 5/32 (BD Ultra-Fine Thais Pen Needle) lorazepam 1 mg tablet 0.5 mg (1/2 x 1 mg) PO DAILY PRN 12/03/23 08/05/24 Rx Anxiety #30 tabs ibuprofen 800 mg tablet 800 mg PO TID 12/24/23 08/05/24 History insulin aspart U-100 100 unit/mL 18 sliding scale dose subcut TID 12/24/23 08/05/24 History (3 mL) subcutaneous pen (Novolog FlexPen U-100 Insulin aspart) hydroxyzine HCl 25 mg tablet 25 mg PO DAILY PRN anxiety 02/29/24 08/05/24 History colchicine 0.6 mg capsule 0.6 mg PO QDAY PRN 04/21/24 08/05/24 History furosemide 20 mg tablet 20 mg PO QDAY 04/21/24 08/05/24 History losartan 100 mg tablet 100 mg PO QDAY 04/21/24 08/05/24 History omega-3 acid ethyl esters 1 gram 1 cap PO BID #180 caps 04/26/24 08/05/24 Rx capsule flash glucose sensor (FreeStyle #2 ea 06/21/24 08/05/24 Rx Tanmay 2 Sensor kit) cholecalciferol (vitamin D3) 50 50 mcg PO QDAY #90 caps 07/19/24 08/05/24 Rx mcg (2,000 unit) capsule omeprazole 20 mg capsule,delayed 40 mg PO DAILY GERD 07/19/24 08/05/24 History release dulaglutide 3 mg/0.5 mL 3 mg (0.5 mL) subcut QWEEK #2 mL 08/02/24 08/05/24 Rx subcutaneous pen injector (Trulicity) insulin glargine 100 unit/mL (3 30 unit (0.3 mL) subcut QAM #27 mL 08/02/24 08/05/24 Rx mL) subcutaneous pen (Basaglar KwikPen U-100 Insulin) azithromycin 250 mg tablet See Rx Instructions PO .COMPLEX #6 08/05/24 08/05/24 Rx tabs (more content not included)... Normal [facility] Endocrinology Visit Reporton 07-19-2024 Endocrinology Visit Report [facility] [address] [place] [address]. [address] [place], [place] [id number] OFFICE VISIT Date of Service: 07/19/24 MR#: [id number] Acct: [id number] Name: CHRISSY LAY Rep #: [id number] : 1965 Provider: NADIA cutler Age/Sex: 59/F Location: [facility] [place] Status: Signed Intake Vital Signs 04/21/24 10:30 07/19/24 10:27 Height 5 ft 8 in 5 ft 8 in Weight: 231 lb 2 oz BMI 35.1 BP 159/98 H Blood Pressure Location Lt brachial Position Sitting Pulse 93 Pulse Source Monitor Pulse Oximetry (%) 96 Oxygen Delivery Method room air Intake Visit Reasons: 3 M FU Chief Complaint: f/u diabetes Is patient in pain?: Yes Allergies adalimumab (From Humira) Allergy (Verified 07/19/24 10:32) Unknown amoxicillin trihydrate (From Augmentin) Allergy (Verified 07/19/24 10:32) Unknown codeine Allergy (Verified 07/19/24 10:32) Itching etanercept (From Enbrel) Allergy (Verified 07/19/24 10:32) Unknown leflunomide (From Arava) Allergy (Verified 07/19/24 10:32) Other metoprolol tartrate (From Lopressor) Allergy (Verified 07/19/24 10:32) Unknown morphine sulfate (From Embeda) Allergy (Verified 07/19/24 10:32) Unknown naltrexone HCl (From Embeda) Allergy (Verified 07/19/24 10:32) Unknown oxymorphone (Oxymorphone) Allergy (Verified 07/19/24 10:32) Unknown pioglitazone HCl (From Actos) Allergy (Verified 07/19/24 10:32) Other pneumococcal 23-valent polysacchari (From Pneumovax 23) Allergy (Verified 07/19/24 10:32) Unknown potassium clavulanate (From Augmentin) Allergy (Verified 07/19/24 10:32) Unknown Lggsosy-PNV-RpJ Reductase Inhibitor (Gfmthqq-Uzk-Uuo Reductase Inhibitor) Allergy (Verified 07/19/24 10:32) Unknown Sulfa (Sulfonamide Antibiotics) Allergy (Verified 07/19/24 10:32) Anaphylaxis sulfamethoxazole (From Bactrim) Allergy (Verified 07/19/24 10:32) Anaphylaxis telithromycin (From Ketek) Allergy (Verified 07/19/24 10:32) Unknown tramadol HCl (From Ultram) Allergy (Verified 07/19/24 10:32) Unknown trimethoprim (From Bactrim) Allergy (Verified 07/19/24 10:32) Anaphylaxis Medications ???Medication ???Instructions ???Recorded ???Confirmed ???Type ezetimibe 10 mg tablet 10 mg PO DAILY CHOLESTEROL #90 tabs 04/19/21 07/19/24 Rx diphenhydramine HCl 25 mg capsule 25 mg PO DAILY PRN allergy symptoms 03/28/22 07/19/24 History cyclobenzaprine 10 mg tablet 10 mg PO TID PRN Muscle Spasm #20 09/30/22 07/19/24 Rx TABLETS duloxetine 60 mg capsule,delayed 120 mg (2 x 60 mg) PO DAILY 10/15/22 07/19/24 Rx release ANXIETY 30 days #60 caps albuterol sulfate 90 mcg/actuation 2 puff inhalation Q4H PRN PRN 01/04/23 07/19/24 Rx aerosol inhaler (Ventolin HFA) Wheezing or shortness of breath #1 inh pen needle, diabetic 32 gauge x #100 ea 03/05/23 07/19/24 Rx 5/32 (BD Ultra-Fine Thais Pen Needle) alcohol swabs 1 pad topical 4X/DAY #200 ea 04/28/23 07/19/24 Rx ondansetron 4 mg disintegrating 4 mg PO Q6H PRN nausea and 04/28/23 07/19/24 Rx tablet vomiting #10 tabs meclizine 25 mg tablet 25 mg PO TID PRN dizziness #30 tabs 05/23/23 07/19/24 Rx allopurinol 100 mg tablet 100 mg PO DAILY 06/18/23 07/19/24 History pen needle, diabetic 32 gauge x #100 ea 10/23/23 06/17/24 Rx 5/32 (BD Ultra-Fine Thais Pen Needle) lorazepam 1 mg tablet 0.5 mg (1/2 x 1 mg) PO DAILY PRN 12/03/23 07/19/24 Rx Anxiety #30 tabs ibuprofen 800 mg tablet 800 mg PO TID 12/24/23 07/19/24 History insulin aspart U-100 100 unit/mL 18 sliding scale dose subcut TID 12/24/23 07/19/24 History (3 mL) subcutaneous pen (Novolog FlexPen U-100 Insulin aspart) insulin glargine 100 unit/mL (3 28 unit subcut QAM 12/24/23 07/19/24 History mL) subcutaneous pen (Basaglar KwikPen U-100 Insulin) hydroxyzine HCl 25 mg tablet 25 mg PO DAILY PRN anxiety 02/29/24 07/19/24 History colchicine 0.6 mg capsule 0.6 mg PO QDAY PRN 04/21/24 07/19/24 History dulaglutide 1.5 mg/0.5 mL 1.5 mg (0.5 mL) subcut QWEEK #2 mL 04/21/24 07/19/24 Rx subcutaneous pen injector (Trulicity) furosemide 20 mg tablet 20 mg PO QDAY 04/21/24 07/19/24 History losartan 100 mg tablet 100 mg PO QDAY 04/21/24 07/19/24 History omega-3 acid ethyl esters 1 gram 1 cap PO BID #180 caps 04/26/24 07/19/24 Rx capsule flash glucose sensor (FreeStyle #2 ea 06/21/24 07/19/24 Rx Tanmay 2 Sensor kit) cholecalciferol (vitamin D3) 50 50 mcg PO QDAY #90 caps 07/19/24 07/19/24 Rx mcg (2,000 unit) capsule omeprazole 20 mg capsule,delayed 40 mg PO DAILY GERD 07/19/24 07/19/24 History release [facility] Medical History Osteoarthritis of left knee Left knee pain Osteoarthritis of right knee Contusion of right chest wall Contusion of right shoulder Contusion of forehead Hi (more content not included)... Normal [facility] Knee 4 or More Viewson 06-17 Knee 4 or More Views [facility] [address] [place] [address] Knee 4 or More Views MR#: [id number] Acct: [id number] Name: CHRISSY LAY Louie Rep #: [id number] : 1965 F 59 From: Petros Reyes MD PCP: Chantale Ramsey NP-C Status: DEP [facility] Study: Knee 4 or More Views Date of Exam: 06/17/24 Exam# [id number] Ordering Dr: Karl Ashton MD :[id number] STUDY: X-RAY - LEFT KNEE REASON FOR EXAM: Female, 59 years old. Pain. TECHNIQUE: 4 views of the left knee. COMPARISON: None. FINDINGS: Normal visualized distal femur. Normal visualized proximal tibia and fibula. Normal proximal tibiofibular articulation. There is no demonstrated fracture. There is minimal joint space narrowing of the medial femorotibial compartment. Normal lateral femorotibial compartment. Normal patellofemoral articulation. There is a small knee joint effusion. The soft tissue structures are unremarkable. RAD/Knee 4 or More Views IMPRESSION: Minimal joint space narrowing of the medial femorotibial compartment. Small knee joint effusion. No demonstrated fracture. Electronically Signed: Petros Reyes MD at 15:01 EST Reading Location ID and State: [address] [place] [address] , Service support , CC: NADIA Ramsey; Dr. Karl Ashton MD Principal Gifts Officer: Signed Normal [facility] Orthopedic Visit Reporton Orthopedic Visit Report [facility] [place] [address] OFFICE VISIT Date of Service: 06/17/24 MR#: [id number] Acct: [id number] Name: CHRISSY LAY Rep #: [id number] : 1965 Provider: Dr. Karl menendez MD Age/Sex: 59/F Location: [facility] [place] Status: Signed Intake Vital Signs 04/21/24 10:30 Height 5 ft 8 in Weight: 220 lb BMI 33.4 BP 163/77 H Blood Pressure Location Lt brachial Position Sitting Pulse 98 Pulse Source Monitor Pulse Oximetry (%) 95 Oxygen Delivery Method room air Intake Visit Reasons: LEFT KNEE Accompanied by: Self Is patient in pain?: Yes Pain scale (1-10): 10 Allergies adalimumab (From Humira) Allergy (Verified 06/17/24 10:52) Unknown amoxicillin trihydrate (From Augmentin) Allergy (Verified 06/17/24 10:52) Unknown codeine Allergy (Verified 06/17/24 10:52) Itching etanercept (From Enbrel) Allergy (Verified 06/17/24 10:52) Unknown leflunomide (From Arava) Allergy (Verified 06/17/24 10:52) Other metoprolol tartrate (From Lopressor) Allergy (Verified 06/17/24 10:52) Unknown morphine sulfate (From Embeda) Allergy (Verified 06/17/24 10:52) Unknown naltrexone HCl (From Embeda) Allergy (Verified 06/17/24 10:52) Unknown oxymorphone (Oxymorphone) Allergy (Verified 06/17/24 10:52) Unknown pioglitazone HCl (From Actos) Allergy (Verified 06/17/24 10:52) Other pneumococcal 23-valent polysacchari (From Pneumovax 23) Allergy (Verified 06/17/24 10:52) Unknown potassium clavulanate (From Augmentin) Allergy (Verified 06/17/24 10:52) Unknown Dnwvbie-EJZ-VvU Reductase Inhibitor (Nyzppgd-Xeh-Djo Reductase Inhibitor) Allergy (Verified 06/17/24 10:52) Unknown Sulfa (Sulfonamide Antibiotics) Allergy (Verified 06/17/24 10:52) Anaphylaxis sulfamethoxazole (From Bactrim) Allergy (Verified 06/17/24 10:52) Anaphylaxis telithromycin (From Ketek) Allergy (Verified 06/17/24 10:52) Unknown tramadol HCl (From Ultram) Allergy (Verified 06/17/24 10:52) Unknown trimethoprim (From Bactrim) Allergy (Verified 06/17/24 10:52) Anaphylaxis Medications ???Medication ???Instructions ???Recorded ???Confirmed ???Type omeprazole 20 mg capsule,delayed 20 mg PO DAILY GERD 01/04/20 06/17/24 History release ezetimibe 10 mg tablet 10 mg PO DAILY CHOLESTEROL #90 tabs 04/19/21 06/17/24 Rx diphenhydramine HCl 25 mg capsule 25 mg PO DAILY PRN allergy symptoms 03/28/22 06/17/24 History cyclobenzaprine 10 mg tablet 10 mg PO TID PRN Muscle Spasm #20 09/30/22 06/17/24 Rx TABLETS duloxetine 60 mg capsule,delayed 120 mg (2 x 60 mg) PO DAILY 10/15/22 06/17/24 Rx release ANXIETY 30 days #60 caps albuterol sulfate 90 mcg/actuation 2 puff inhalation Q4H PRN PRN 01/04/23 06/17/24 Rx aerosol inhaler (Ventolin HFA) Wheezing or shortness of breath #1 inh pen needle, diabetic 32 gauge x #100 ea 03/05/23 06/17/24 Rx 5/32 (BD Ultra-Fine Thais Pen Needle) alcohol swabs 1 pad topical 4X/DAY #200 ea 04/28/23 06/17/24 Rx ondansetron 4 mg disintegrating 4 mg PO Q6H PRN nausea and 04/28/23 06/17/24 Rx tablet vomiting #10 tabs meclizine 25 mg tablet 25 mg PO TID PRN dizziness #30 tabs 05/23/23 06/17/24 Rx allopurinol 100 mg tablet 100 mg PO DAILY 06/18/23 06/17/24 History flash glucose sensor (FreeStyle #2 ea 09/17/23 06/17/24 Rx Tanmay 2 Sensor kit) pen needle, diabetic 32 gauge x #100 ea 10/23/23 06/17/24 Rx 5/32 (BD Ultra-Fine Thais Pen Needle) lorazepam 1 mg tablet 0.5 mg (1/2 x 1 mg) PO DAILY PRN 12/03/23 06/17/24 Rx Anxiety #30 tabs ibuprofen 800 mg tablet 800 mg PO TID 12/24/23 06/17/24 History insulin aspart U-100 100 unit/mL 18 sliding scale dose subcut TID 12/24/23 06/17/24 History (3 mL) subcutaneous pen (Novolog FlexPen U-100 Insulin aspart) insulin glargine 100 unit/mL (3 28 unit subcut QAM 12/24/23 06/17/24 History mL) subcutaneous pen (Basaglar KwikPen U-100 Insulin) hydroxyzine HCl 25 mg tablet 25 mg PO DAILY PRN anxiety 02/29/24 06/17/24 History colchicine 0.6 mg capsule 0.6 mg PO QDAY PRN 04/21/24 06/17/24 History dulaglutide 1.5 mg/0.5 mL 1.5 mg (0.5 mL) subcut QWEEK #2 mL 04/21/24 06/17/24 Rx subcutaneous pen injector (Trulicity) furosemide 20 mg tablet 20 mg PO QDAY 04/21/24 06/17/24 History losartan 100 mg tablet 100 mg PO QDAY 04/21/24 06/17/24 History olanzapine 5 mg tablet 5 mg PO QHS 04/21/24 06/17/24 History omega-3 acid ethyl esters 1 gram 1 cap PO BID #180 caps 04/26/24 06/17/24 Rx capsule [facility] Medical History (Updated 06/17/24 @ 11:35 by Karl Ashton MD) Osteoarthritis of left knee Left knee pain Osteoarthritis of right knee Contusion of right chest wall Contusion of right shoulder Contusion of forehead History of diabetes mellitus PTSD (post-traumatic stre (more content not included)... Normal [facility] BNP,B-Type NATRIURETIC PEPTI Irene 04-23-2024 Natriuretic peptide B (Bld) [Mass/Vol] 7.3 pg/mL Normal 0-100 [facility] Comment on above: Performed By: #### L 502.0250, L500.4100, L503.6620, L506.1000 #### [facility] [address] [facility]. [facility] [id number] Lipid Profileon 04-23-2024 Cholesterol [Mass/Vol] 265 mg/dL High 200 [facility] Comment on above: Result Comment: <200 mg/dL Desirable 200-240 mg/dL Borderline >240 mg/dL High Risk Performed By: #### L 502.0250, L500.4100, L503.6620, L506.1000 #### [facility] [address] [place], [place], [id number] Cholesterol in HDL [Mass/Vol] 74 mg/dL Normal [facility] Comment on above: Result Comment: The drugs N-Acetylcysteine and Metamizole may falsely depress this assay. Reference Range HDL <40 mg/dL Low HDL Cholesterol HDL >or= 60 mg/dL High HDL Cholesterol Performed By: #### L 502.0250, L500.4100, L503.6620, L506.1000 #### [facility] [address] [place], [address] Cholesterol in LDL [Mass/Vol] 142 mg/dL High 0-130 [facility] Comment on above: Performed By: #### L 502.0250, L500.4100, L503.6620, L506.1000 #### [facility] [address] [place], [address] Cholesterol in VLDL [Mass/Vol] 49 mg/dL High 5-40 [facility] Comment on above: Performed By: #### L 502.0250, L500.4100, L503.6620, L506.1000 #### [facility] [address] [place], [address] Triglyceride [Mass/Vol] 247 mg/dL High [facility] Comment on above: Result Comment: The drugs N-Acetylcysteine and Metamizole may falsely depress this assay. Serum Triglycerides Reference Interval Normal <150 mg/dL Borderline high 150 - 199 mg/dL High 200 - 499 mg/dL Very High > or = 500 mg/dL Performed By: #### L 502.0250, L500.4100, L503.6620, L506.1000 #### [facility] [address] [place], [address] Microalb:Creat Ratio,Random URon 04-23-2024 Creatinine [Mass/Vol] 76.20 mg/dL Normal NO RANGE EST. [facility] Comment on above: Performed By: #### L 502.0250, L500.4100, L503.6620, L506.1000 #### [facility] [address] [place], [address] MALB:CRE 58.5 mg/g CRE High <30 mg/g CRE [facility] Comment on above: Performed By: #### L 502.0250, L500.4100, L503.6620, L506.1000 #### [facility] [address] [place], [address] MICROALBUMIN,UR 44.6 mg/L Normal NO RANGE EST. [facility] Comment on above: Performed By: #### L 502.0250, L500.4100, L503.6620, L506.1000 #### [facility] [address] [place], [address] Vitamin D,25 Hydroxyon 04-23 Vitamin D 25-OH 29.7 ng/mL Normal [facility] Comment on above: Result Comment: Maryam min D 25(OH) Status Range Deficiency <20 ng/mL (50nmol/L) Insufficiency 20 - 30 ng/mL (50 - 75 nmol/L) Sufficiency 30 - 100 ng/mL (75 - 250 nmol/L) Toxicity >100 ng/mL (>250 nmol/L) Performed By: #### L 502.0250, L500.4100, L503.6620, L506.1000 #### [facility] [address] [place], [address] Endocrinology Visit Reporton 04-21-2024 Endocrinology Visit Report [facility] [address] 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 Age/Sex: 59/F [place] [facility] [place] Status: Signed Intake Vital Signs 02/29/24 13:09 04/21/24 10:30 Height 5 ft 8 in 5 ft 8 in Weight: 220 lb BMI 33.4 BP 163/77 H Blood Pressure Location Lt brachial Position Sitting Pulse 98 Pulse Source Monitor Pulse Oximetry (%) 95 Oxygen Delivery Method room air Intake Visit Reasons: 4 M FU Chief Complaint: f/u diabetes Grain Operator Required: No Accompanied by: Self Is patient in pain?: Yes (Abdomen) Pain scale (1-10): 5 Allergies adalimumab (From Humira) Allergy (Verified 04/21/24 10:32) Unknown amoxicillin trihydrate (From Augmentin) Allergy (Verified 04/21/24 10:32) Unknown codeine Allergy (Verified 04/21/24 10:32) Itching etanercept (From Enbrel) Allergy (Verified 04/21/24 10:32) Unknown leflunomide (From Arava) Allergy (Verified 04/21/24 10:32) Other metoprolol tartrate (From Lopressor) Allergy (Verified 04/21/24 10:32) Unknown morphine sulfate (From Embeda) Allergy (Verified 04/21/24 10:32) Unknown naltrexone HCl (From Embeda) Allergy (Verified 04/21/24 10:32) Unknown oxymorphone (Oxymorphone) Allergy (Verified 04/21/24 10:32) Unknown pioglitazone HCl (From Actos) Allergy (Verified 04/21/24 10:32) Other pneumococcal 23-valent polysacchari (From Pneumovax 23) Allergy (Verified 04/21/24 10:32) Unknown potassium clavulanate (From Augmentin) Allergy (Verified 04/21/24 10:32) Unknown Lcfqygc-CFP-MeF Reductase Inhibitor (Tcziyre-Spg-Xgi Reductase Inhibitor) Allergy (Verified 04/21/24 10:32) Unknown Sulfa (Sulfonamide Antibiotics) Allergy (Verified 04/21/24 10:32) Anaphylaxis sulfamethoxazole (From Bactrim) Allergy (Verified 04/21/24 10:32) Anaphylaxis telithromycin (From Ketek) Allergy (Verified 04/21/24 10:32) Unknown tramadol HCl (From Ultram) Allergy (Verified 04/21/24 10:32) Unknown trimethoprim (From Bactrim) Allergy (Verified 04/21/24 10:32) Anaphylaxis Medications ???Medication ???Instructions ???Recorded ???Confirmed ???Type omeprazole 20 mg capsule,delayed 20 mg PO DAILY GERD 01/04/20 04/21/24 History release ezetimibe 10 mg tablet 10 mg PO DAILY CHOLESTEROL #90 tabs 04/19/21 04/21/24 Rx diphenhydramine HCl 25 mg capsule 25 mg PO DAILY PRN allergy symptoms 03/28/22 04/21/24 History cyclobenzaprine 10 mg tablet 10 mg PO TID PRN Muscle Spasm #20 09/30/22 04/21/24 Rx TABLETS duloxetine 60 mg capsule,delayed 120 mg (2 x 60 mg) PO DAILY 10/15/22 04/21/24 Rx release ANXIETY 30 days #60 caps albuterol sulfate 90 mcg/actuation 2 puff inhalation Q4H PRN PRN 01/04/23 04/21/24 Rx aerosol inhaler (Ventolin HFA) Wheezing or shortness of breath #1 inh pen needle, diabetic 32 gauge x #100 ea 03/05/23 02/26/24 Rx 5/32 (BD Ultra-Fine Thais Pen Needle) alcohol swabs 1 pad topical 4X/DAY #200 ea 04/28/23 04/21/24 Rx ondansetron 4 mg disintegrating 4 mg PO Q6H PRN nausea and 04/28/23 04/21/24 Rx tablet vomiting #10 tabs meclizine 25 mg tablet 25 mg PO TID PRN dizziness #30 tabs 05/23/23 04/21/24 Rx allopurinol 100 mg tablet 100 mg PO DAILY 06/18/23 04/21/24 History flash glucose sensor (FreeStyle #2 ea 09/17/23 02/26/24 Rx Tanmay 2 Sensor kit) pen needle, diabetic 32 gauge x #100 ea 10/23/23 02/26/24 Rx 5/32 (BD Ultra-Fine Thais Pen Needle) lorazepam 1 mg tablet 0.5 mg (1/2 x 1 mg) PO DAILY PRN 12/03/23 04/21/24 Rx Anxiety #30 tabs ibuprofen 800 mg tablet 800 mg PO TID 12/24/23 04/21/24 History insulin aspart U-100 100 unit/mL 18 sliding scale dose subcut TID 12/24/23 02/29/24 History (3 mL) subcutaneous pen (Novolog FlexPen U-100 Insulin aspart) insulin glargine 100 unit/mL (3 28 unit subcut QAM 12/24/23 02/29/24 History mL) subcutaneous pen (Basaglar KwikPen U-100 Insulin) hydroxyzine HCl 25 mg tablet 25 mg PO DAILY PRN anxiety 02/29/24 04/21/24 History colchicine 0.6 mg capsule 0.6 mg PO QDAY PRN 04/21/24 04/21/24 History dulaglutide 1.5 mg/0.5 mL 1.5 mg (0.5 mL) subcut QWEEK #2 mL 04/21/24 04/21/24 Rx subcutaneous pen injector (Trulicity) furosemide 20 mg tablet 20 mg PO QDAY 04/21/24 04/21/24 History losartan 100 mg tablet 100 mg PO QDAY 04/21/24 04/21/24 History olanzapine 5 mg tablet 5 mg PO QHS 04/21/24 04/21/24 History PFSH Medical History Osteoarthritis of right knee Contusion of right chest wall Contusion of right shoulder Contusion of forehead History of diabetes mellitus PTSD (post-traumatic stress disorder) Wears glasses Marijuana use Diabet (more content not included)... Normal [facility] BNP,B-Type NATRIURETIC PEPTI Irene 04-16-2024 Natriuretic peptide B (Bld) [Mass/Vol] 12.7 pg/mL Normal 0-100 [facility] Comment on above: Performed By: #### L 503.6620, L500.4050, L501.9985, L100.0500, L501.9520 ####[facility] [address] [place], [address] CBC-Complete Blood Cnt No Di ffon 04-16-2024 Erythrocyte distribution width (RBC) [Ratio] 12.7 % Normal 11.6-14.6 [facility] Comment on above: Performed By: #### L 503.6620, L500.4050, L501.9985, L100.0500, L501.9520 ####[facility] [address] [place], [address] Hematocrit (Bld) [Volume fraction] 40.2 % Normal 37-47 [facility] Comment on above: Performed By: #### L 503.6620, L500.4050, L501.9985, L100.0500, L501.9520 ####[facility] [address] [place], [address] Hemoglobin (Bld) [Mass/Vol] 13.1 g/dL Normal 12.0-15.0 [facility] Comment on above: Performed By: #### L 503.6620, L500.4050, L501.9985, L100.0500, L501.9520 ####[facility] [address] [place], [address] MCH (RBC) [Entitic mass] 29.9 pg Normal 27.0-32.0 [facility] Comment on above: Performed By: #### L 503.6620, L500.4050, L501.9985, L100.0500, L501.9520 ####[facility] [address] [place], [address] MCHC (RBC) [Mass/Vol] 32.6 g/dL Normal 32-36 [facility] Comment on above: Performed By: #### L 503.6620, L500.4050, L501.9985, L100.0500, L501.9520 ####[facility] [address] [place], [address] MCV (RBC) [Entitic vol] 91.8 fL Normal 81-99 [facility] Comment on above: Performed By: #### L 503.6620, L500.4050, L501.9985, L100.0500, L501.9520 ####[facility] [address] [place], [address] Platelet mean volume (Bld) [Entitic vol] 8.7 fL Normal 6.2-12.0 [facility] Comment on above: Performed By: #### L 503.6620, L500.4050, L501.9985, L100.0500, L501.9520 ####[facility] [address] [place], [address] Platelets (Bld) [#/Vol] 390 10*3/uL Normal 150-450 [facility] Comment on above: Performed By: #### L 503.6620, L500.4050, L501.9985, L100.0500, L501.9520 ####[facility] [address] [place], [address] RBC (Bld) [#/Vol] 4.38 10*6/uL Normal 4.2-5.4 [facility] Comment on above: Performed By: #### L 503.6620, L500.4050, L501.9985, L100.0500, L501.9520 ####[facility] [address] [place], [address] RDW SD 42.6 fl Normal 35.1-43.9 [facility] Comment on above: Performed By: #### L 503.6620, L500.4050, L501.9985, L100.0500, L501.9520 ####[facility] [address] [place], [address] WBC (Bld) [#/Vol] 9.8 10*3/uL Normal 4.4-11.0 [facility] Comment on above: Performed By: #### L 503.6620, L500.4050, L501.9985, L100.0500, L501.9520 ####[facility] [address] [place], [address] Comprehensive Metabolic Prof akon 04-16-2024 Albumin [Mass/Vol] 3.3 g/dL Normal 3.2-5.0 [facility] Comment on above: Performed By: #### L 503.6620, L500.4050, L501.9985, L100.0500, L501.9520 ####[facility] [address] [place], [place], [address] Albumin/Globulin [Mass ratio] 0.9 {ratio} Normal 0.9-2.4 [facility] Comment on above: Performed By: #### L 503.6620, L500.4050, L501.9985, L100.0500, L501.9520 ####[facility] [address] [place], [address] ALK P 142 U/L High 45-117 [facility] Comment on above: Performed By: #### L 503.6620, L500.4050, L501.9985, L100.0500, L501.9520 ####[facility] [address] [place], [address] ALT [Catalytic activity/Vol] 42 U/L Normal 13-56 [facility] Comment on above: Performed By: #### L 503.6620, L500.4050, L501.9985, L100.0500, L501.9520 ####[facility] [address] [place], [address] AST [Catalytic activity/Vol] 37 U/L Normal 15-37 [facility] Comment on above: Performed By: #### L 503.6620, L500.4050, L501.9985, L100.0500, L501.9520 ####[facility] [address] [place], [address] Bilirubin [Mass/Vol] 0.20 mg/dL Normal 0.20-1.00 [facility] Comment on above: Result Comment: For patients on eltrombopag therapy, use of Dimension [place] TBIL is not recommended. Performed By: #### L 503.6620, L500.4050, L501.9985, L100.0500, L501.9520 ####[facility] [address] [place], [address] BUN/CRE 15.2 RATIO Normal 10-20 [facility] Comment on above: Performed By: #### L 503.6620, L500.4050, L501.9985, L100.0500, L501.9520 ####[facility] [address] [place], [address] CA,Total 8.8 mg/dL Normal 8.5-10.1 [facility] Comment on above: Performed By: #### L 503.6620, L500.4050, L501.9985, L100.0500, L501.9520 ####[facility] [address] [place], [address] Chloride [Moles/Vol] 108 mmol/L High 98-107 [facility] Comment on above: Performed By: #### L 503.6620, L500.4050, L501.9985, L100.0500, L501.9520 ####[facility] [address] [place], [address] CO2 [Moles/Vol] 23.0 mmol/L Normal 21.0-32.0 [facility] Comment on above: Performed By: #### L 503.6620, L500.4050, L501.9985, L100.0500, L501.9520 ####[facility] [address] [place], [address] Creatinine [Mass/Vol] 0.79 mg/dL Normal 0.55-1.02 [facility] Comment on above: Result Comment: The validity of the calculated GFR GFRAA in patients over 70 years has not been determined. Clinical correlation is essential. Performed By: #### L 503.6620, L500.4050, L501.9985, L100.0500, L501.9520 ####[facility] [address] [place], [address] EST GFR - AA 96 mL/min Normal >60 [facility] Comment on above: Result Comment: Afri can Macedonian GFR Calc Performed By: #### L 503.6620, L500.4050, L501.9985, L100.0500, L501.9520 ####[facility] [address] [place], [address] GAP 8 Normal 5-15 [facility] Comment on above: Performed By: #### L 503.6620, L500.4050, L501.9985, L100.0500, L501.9520 ####[facility] [address] [place], [address] GFR/1.73 sq M.predicted among non-blacks MDRD (S/P/Bld) [Vol rate/Area] 80 mL/min/{1.73_m2} Normal >60 [facility] Comment on above: Result Comment: Non- GFR Calc Performed By: #### L 503.6620, L500.4050, L501.9985, L100.0500, L501.9520 ####[facility] [address] [place], [address] Globulin (S) [Mass/Vol] 3.8 g/dL Normal 2.2-4.2 [facility] Comment on above: Performed By: #### L 503.6620, L500.4050, L501.9985, L100.0500, L501.9520 ####[facility] [address] [place], [address] Glucose [Mass/Vol] 223 mg/dL High 74-106 [facility] Comment on above: Result Comment: Gluc ose result greater than or equal to 200 mg/dL suggests DIABETES MELLITUS per A.D.A. criteria. Performed By: #### L 503.6620, L500.4050, L501.9985, L100.0500, L501.9520 ####[facility] [address] [place], [address] Potassium [Moles/Vol] 4.0 mmol/L Normal 3.5-5.1 [facility] Comment on above: Performed By: #### L 503.6620, L500.4050, L501.9985, L100.0500, L501.9520 ####[facility] [address] [place], [address] Sodium [Moles/Vol] 139 mmol/L Normal 136-145 [facility] Comment on above: Performed By: #### L 503.6620, L500.4050, L501.9985, L100.0500, L501.9520 ####[facility] [address] [place], [address] T PROT 7.1 g/dL Normal 6.4-8.2 [facility] Comment on above: Performed By: #### L 503.6620, L500.4050, L501.9985, L100.0500, L501.9520 ####[facility] [address] [place], [address] Urea nitrogen [Mass/Vol] 12 mg/dL Normal 7-18 [facility] Comment on above: Performed By: #### L 503.6620, L500.4050, L501.9985, L100.0500, L501.9520 ####[facility] [address] [place], [address] Hemoglobin A1con 04-16-2024 HbA1c (Bld) [Mass fraction] 8.7 % High 3.8-5.6 [facility] Comment on above: Result Comment: Norm al < 5.7 % Prediabetic 5.7 - 6.4 % Diabetic >or= 6.5 % Please note range changes. Performed By: #### L 503.6620, L500.4050, L501.9985, L100.0500, L501.9520 ####[facility] [address] [place], [address] Thyroid Stim Hormone (TSH)on 04-16-2024 TSH 1.520 uIU/mL Normal 0.358-3.740 [facility] Comment on above: Performed By: #### L 503.6620, L500.4050, L501.9985, L100.0500, L501.9520 ####[facility] [address] [place], [address] FT3on 03-10-2024 Free T3 [Mass/Vol] 2.81 pg/mL Normal 2.30-4.00 [facility] ([place]) Comment on above: Performed By: #### T SH, GFR, CMP, FT4 #### [address] [address] FT4on 03-10-2024 Free T4 [Mass/Vol] 0.74 ng/dL Low 0.76-1.46 [facility] ([place]) Comment on above: Performed By: #### T SH, GFR, CMP, FT4 #### [address] [address] TSHon 03-10-2024 TSH Qn 2.95 m[IU]/L Normal 0.36-3.74 [facility] ([place]) Comment on above: Performed By: #### T SH, GFR, CMP, FT4 #### [address] [address] aTPOon 03-10-2024 anti-Thyroid Peroxidase 57 units/ml Normal 0-60 [facility] ([place]) Comment on above: Result Comment: No te - New Reference Range in effect 20 Performed By: #### T SH, GFR, CMP, FT4 #### [address] [address] Culture, Blood (WB)on 2023 CUB Blood cultures x2 fr om two different sites No growth in 5 days. Normal [facility] Comment on above: Performed By: #### L 502.0250, L500.4100, L503.6620, L506.1000 #### [facility] [address] [place], [address] Acetone Serumon 02-29-2024 ACETONE SERUM Negative Normal NEG [facility] Comment on above: Performed By: #### L 501.6900 ####[facility] [address] [place], [address] Bedside Glucoseon 02-29-2024 FINGERSTICK GLU 374 mg/dL High 74-106 [facility] Comment on above: Result Comment: JUSTICE PLEITEZ OF PATIENT CARE PER NURSING PROTOCOL Performed By: #### L 502.0250, L500.4100, L503.6620, L506.1000 #### [facility] [address] [place], [address] CBC W/Diff, Automatedon 02-02 Absolute Lymph 0.89 X10 3/uL Normal 0.83-4.51 [facility] Comment on above: Performed By: #### L 503.6005 #### [facility] [address] [place], [address] Absolute Neut 13.3 X10 3/uL High 2.0-7.7 [facility] Comment on above: Performed By: #### L 503.6005 #### [facility] [address] [place], [address] Basophils/100 WBC (Bld) 0.1 % Normal 0-1 [facility] Comment on above: Performed By: #### L 503.6005 #### [facility] [address] [place], [address] Eosinophils/100 WBC (Bld) 0.1 % Normal 0-5 [facility] Comment on above: Performed By: #### L 503.6005 #### [facility] [address] [place], [address] Erythrocyte distribution width (RBC) [Ratio] 12.7 % Normal 11.6-14.6 [facility] Comment on above: Performed By: #### L 503.6005 #### [facility] [address] [place], [address] Hematocrit (Bld) [Volume fraction] 47.1 % High 37-47 [facility] Comment on above: Performed By: #### L 503.6005 #### [facility] [address] [place], [address] Hemoglobin (Bld) [Mass/Vol] 15.5 g/dL High 12.0-15.0 [facility] Comment on above: Performed By: #### L 503.6005 #### [facility] [address] [place], [address] IG% 0.600 Normal 0.0-0.9 [facility] Comment on above: Result Comment: IG% - Immature Granulocytes (promyelocytes, myelocytes and metamyelocytes) > 1% indicates that a LEFT SHIFT is Present. Performed By: #### L 503.6005 #### [facility] [address] [place], [address] Lymphocytes/100 WBC (Bld) 5.8 % Low 19-41 [facility] Comment on above: Performed By: #### L 503.6005 #### [facility] [address] [place], [address] MCH (RBC) [Entitic mass] 30.0 pg Normal 27.0-32.0 [facility] Comment on above: Performed By: #### L 503.6005 #### [facility] [address] [place], [address] MCHC (RBC) [Mass/Vol] 32.9 g/dL Normal 32-36 [facility] Comment on above: Performed By: #### L 503.6005 #### [facility] [address] [place], [address] MCV (RBC) [Entitic vol] 91.1 fL Normal 81-99 [facility] Comment on above: Performed By: #### L 503.6005 #### [facility] [address] [place], [address] Monocytes/100 WBC (Bld) 6.4 % Normal 0-10 [facility] Comment on above: Performed By: #### L 503.6005 #### [facility] [address] [place], [address] Neutrophils/100 WBC (Bld) 87.0 % High 47-70 [facility] Comment on above: Performed By: #### L 503.6005 #### [facility] [address] [place], [address] Nucleated RBC (Bld) [#/Vol] 0 10*3/uL Normal 0-5 [facility] Comment on above: Performed By: #### L 503.6005 #### [facility] [address] [place], [address] Platelet mean volume (Bld) [Entitic vol] 9.0 fL Normal 6.2-12.0 [facility] Comment on above: Performed By: #### L 503.6005 #### [facility] [address] [place], [address] Platelets (Bld) [#/Vol] 395 10*3/uL Normal 150-450 [facility] Comment on above: Performed By: #### L 503.6005 #### [facility] [address] [place], [address] RBC (Bld) [#/Vol] 5.17 10*6/uL Normal 4.2-5.4 [facility] Comment on above: Performed By: #### L 503.6005 #### [facility] [address] [place], [address] RDW SD 42.5 fl Normal 35.1-43.9 [facility] Comment on above: Performed By: #### L 503.6005 #### [facility] [address] [place], [address] WBC (Bld) [#/Vol] 15.3 10*3/uL High 4.4-11.0 [facility] Comment on above: Performed By: #### L 503.6005 #### [facility] [address] [place], [address] Comprehensive Metabolic Prof ilon 02-29-2024 Albumin [Mass/Vol] 3.7 g/dL Normal 3.2-5.0 [facility] Comment on above: Performed By: #### L 503.6005 #### [facility] [address] [place], [address] Albumin/Globulin [Mass ratio] 0.9 {ratio} Normal 0.9-2.4 [facility] Comment on above: Performed By: #### L 503.6005 #### [facility] [address] [place], [address] ALK P 108 U/L Normal 45-117 [facility] Comment on above: Performed By: #### L 503.6005 #### [facility] [address] [place], [address] ALT [Catalytic activity/Vol] 45 U/L Normal 13-56 [facility] Comment on above: Performed By: #### L 503.6005 #### [facility] [address] [place], [address] AST [Catalytic activity/Vol] 16 U/L Normal 15-37 [facility] Comment on above: Performed By: #### L 503.6005 #### [facility] [address] [place], [address] Bilirubin [Mass/Vol] 0.50 mg/dL Normal 0.20-1.00 [facility] Comment on above: Result Comment: For patients on eltrombopag therapy, use of Dimension [place] TBIL is not recommended. Performed By: #### L 503.6005 #### [facility] [address] [place], [address] BUN/CRE 17.6 RATIO Normal 10-20 [facility] Comment on above: Performed By: #### L 503.6005 #### [facility] [address] [place], [address] CA,Total 9.2 mg/dL Normal 8.5-10.1 [facility] Comment on above: Performed By: #### L 503.6005 #### [facility] [address] [place], [address] Chloride [Moles/Vol] 97 mmol/L Low 98-107 [facility] Comment on above: Performed By: #### L 503.6005 #### [facility] [address] [place], [address] CO2 [Moles/Vol] 21.0 mmol/L Normal 21.0-32.0 [facility] Comment on above: Performed By: #### L 503.6005 #### [facility] [address] [place], [address] Creatinine [Mass/Vol] 1.25 mg/dL High 0.55-1.02 [facility] Comment on above: Result Comment: The validity of the calculated GFR GFRAA in patients over 70 years has not been determined. Clinical correlation is essential. Performed By: #### L 503.6005 #### [facility] [address] [place], [address] ECRCL 58.84 ml/min Normal [facility] Comment on above: Performed By: #### L 503.6005 #### [facility] [address] [place], [address] EST GFR - AA 57 mL/min Low >60 [facility] Comment on above: Result Comment: Afri can Macedonian GFR Calc Performed By: #### L 503.6005 #### [facility] [address] [place], [address] GAP 11 Normal 5-15 [facility] Comment on above: Performed By: #### L 503.6005 #### [facility] [address] [place], [address] GFR/1.73 sq M.predicted among non-blacks MDRD (S/P/Bld) [Vol rate/Area] 47 mL/min/{1.73_m2} Low >60 [facility] Comment on above: Result Comment: Non- GFR Calc Performed By: #### L 503.6005 #### [facility] [address] [place], [address] Globulin (S) [Mass/Vol] 4.3 g/dL High 2.2-4.2 [facility] Comment on above: Performed By: #### L 503.6005 #### [facility] [address] [place], [address] Glucose [Mass/Vol] 491 mg/dL Invalid Interpretation Code 74-106 [facility] Comment on above: Result Comment: Crit ical Result(s) Called at: 14:20:42 02/29/2024 by: Jerad Lantigua to [facility]. Results read back by [facility]. Glucose result greater than or equal to 200 mg/dL suggests DIABETES MELLITUS per A.D.A. criteria. Performed By: #### L 503.6005 #### [facility] [address] [place], [address] Potassium [Moles/Vol] 4.7 mmol/L Normal 3.5-5.1 [facility] Comment on above: Performed By: #### L 503.6005 #### [facility] [address] [place], [address] Sodium [Moles/Vol] 129 mmol/L Low 136-145 [facility] Comment on above: Performed By: #### L 503.6005 #### [facility] [address] [place], [address] (375) T PROT 8.0 g/dL Normal 6.4-8.2 [facility] Comment on above: Performed By: #### L 503.6005 #### [facility] [address] [place], [address] Urea nitrogen [Mass/Vol] 22 mg/dL High 7-18 [facility] Comment on above: Performed By: #### L 503.6005 #### [facility] [address] [place], [place], [address] Emergency Department Summary on 02-29-2024 Emergency Department Summary [facility] Medical Records Department [address] [place] [address] Emergency Department Summary 02/29/24 MR#: [id number] Acct: [id number] Name: CHRISSY LAY Rep #: [id number] : 1965 58 From: Dimitri Wong NP-C PCP: NADIA Mcrae Status:DEP ER Location: ED HPI History of Present Illness Chief Complaint: Hyperglycemia Narrative Narrative: Patient is a 58-year-old female with history of type 2 diabetes, hypertension, hyperlipidemia who is insulin-dependent who presents to the emergency department for elevated blood sugars. She was seen here 2 days ago for similar. On 25 February, she was given a cortisone injection to her right knee, prior to this cortisone injection, the patient also received oral antibiotics secondary to another issue. She states since then she believes her blood sugars are out of control. She is high on her monitor. She states that headache, blurred vision, excessive thirst, and feels lethargic. Patient denies any fever chills does complain of nausea without vomiting. [facility] Medical History Osteoarthritis of right knee Contusion of right chest wall Contusion of right shoulder Contusion of forehead History of diabetes mellitus PTSD (post-traumatic stress disorder) Wears glasses Marijuana use Diabetes Arthritis Easy bruising High cholesterol Restless legs Injury of head and neck Difficulty swallowing Gastric reflux Non-smoker History of stress test History of echocardiogram Cardiology follow-up encounter SACHA (generalized anxiety disorder) Strain of right hip History of colon polyps Acute otitis externa of left ear Acute sinusitis, unspecified TIA (transient ischemic attack) Episode of syncope Urinary tract infection with hematuria Contusion of right ankle Contusion of right foot GI bleed Positive PPD, treated Pneumonia Bronchitis Statin intolerance Dyspnea on exertion Chest pain Near syncope Orthostatic hypotension Hyperlipidemia GERD (gastroesophageal reflux disease) RSD (reflex sympathetic dystrophy) Essential hypertension Diabetes mellitus type II, controlled Strain of unspecified muscle, fascia and tendon at shoulder and upper arm level, right arm, initial encounter Asthma Shoulder pain Hemorrhoids Nausea vomiting Depressed Asthma Home Medications ???Medication ???Instructions ???Recorded ???Last Taken ???Type omeprazole 20 mg capsule,delayed 20 mg PO DAILY GERD 01/04/20 Unknown History release ezetimibe 10 mg tablet 10 mg PO DAILY CHOLESTEROL #90 tabs 04/19/21 Unknown Rx diphenhydramine HCl 25 mg capsule 25 mg PO DAILY PRN allergy symptoms 03/28/22 Unknown History cyclobenzaprine 10 mg tablet 10 mg PO TID PRN Muscle Spasm #20 09/30/22 Unknown Rx TABLETS duloxetine 60 mg capsule,delayed 120 mg (2 x 60 mg) PO DAILY 10/15/22 Unknown Rx release ANXIETY 30 days #60 caps albuterol sulfate 90 mcg/actuation 2 puff inhalation Q4H PRN PRN 01/04/23 Unknown Rx aerosol inhaler (Ventolin HFA) Wheezing or shortness of breath #1 inh pen needle, diabetic 32 gauge x #100 ea 03/05/23 Unknown Rx (BD Ultra-Fine Thais Pen Needle) alcohol swabs 1 pad topical 4X/DAY #200 ea 04/28/23 Unknown Rx furosemide 40 mg tablet 40 mg PO DAILY PRN edema 04/28/23 Unknown History ondansetron 4 mg disintegrating 4 mg PO Q6H PRN nausea and 04/28/23 Unknown Rx tablet vomiting #10 tabs meclizine 25 mg tablet 25 mg PO TID PRN dizziness #30 tabs 05/23/23 Unknown Rx allopurinol 100 mg tablet 100 mg PO DAILY 06/18/23 Unknown History dulaglutide 1.5 mg/0.5 mL 1.5 mg (0.5 mL) subcut QWEEK #2 mL 09/17/23 Unknown Rx subcutaneous pen injector (Trulicity) flash glucose sensor (FreeStyle #2 ea 09/17/23 Unknown Rx Tanmay 2 Sensor kit) pen needle, diabetic 32 gauge x #100 ea 10/23/23 Unknown Rx 32 (BD Ultra-Fine Thais Pen Needle) lorazepam 1 mg tablet 0.5 mg (1/2 x 1 mg) PO DAILY PRN 12/03/23 Unknown Rx Anxiety #30 tabs ibuprofen 800 mg tablet 800 mg PO TID 12/24/23 Unknown History insulin aspart U-100 100 unit/mL 18 sliding scale dose subcut TID 12/24/23 Unknown History (3 mL) subcutaneous pen (Novolog FlexPen U-100 Insulin aspart) insulin glargine 100 unit/mL (3 28 unit subcut QAM 12/24/23 Unknown History mL) subcutaneous pen (Basaglar KwikPen U-100 Insulin) hydroxyzine HCl 25 mg tablet 25 mg PO DAILY PRN anxiety 02/29/24 Unknown History losartan 25 mg tablet 50 mg PO DAILY 02/29/24 Unknown History lurasidone 20 mg tablet 40 mg PO QHS 02/29/24 Unknown History Allergy/AdvReac Type Severity Reaction Status Date / Time adalimumab (From Humira) Allergy Unknown Verified 02/29/24 13:09 amoxicillin trihydrate (From Allergy Unknown Verified 02/29/24 13:09 Augme (more content not included)... Normal [facility] Lactic Acidon 02-29-2024 Lactate [Moles/Vol] 4.0 mmol/L Invalid Interpretation Code 0.4-1.9 [facility] Comment on above: Order Comment: Y Result Comment: Crit ical Result(s) Called at: 17:01:41 02/29/2024 by: LAVERNE GALLO to [facility]. Results read back by same. Performed By: #### L 503.6005 #### [facility] [address] [place], [address] Lactate [Moles/Vol] 5.3 mmol/L Invalid Interpretation Code 0.4-1.9 [facility] Comment on above: Order Comment: Y Result Comment: Crit ical Result(s) Called at: 14:20:42 02/29/2024 by: Jerad Lantigua to ANGELIQUEjad. Results read back by same. Performed By: #### L 503.6005 #### [facility] [address] [place], [address] Lipaseon 02-29-2024 Lipase [Catalytic activity/Vol] 56 U/L Normal 13-75 [facility] Comment on above: Result Comment: Lo hansen note: LIPASE revised reference range effective 22. New Lipase methodology. Expected to produce lower values than the previous assay method. NEW Reference Range: 13 - 75 U/L Performed By: #### L 502.0250, L500.4100, L503.6620, L506.1000 #### [facility] [address] [place], [address] Urinalysis, Completeon 02-28 WBC 10-25 SEEN Normal 0-5 [facility] Comment on above: Order Comment: CLEAN CATCH Performed By: #### L 400.0001 #### [facility] [address] [place], [address] EPI,SQUAMOUS 0-5 SEEN Normal 5-10 [facility] Comment on above: Order Comment: CLEAN CATCH Performed By: #### L 400.0001 #### [facility] [address] [place], [address] BACTERIA 0 SEEN Normal None Seen [facility] Comment on above: Order Comment: CLEAN CATCH Performed By: #### L 400.0001 #### [facility] [address] [place], [address] Mucus Ql (Urine sed) 0 SEEN Normal [facility] Comment on above: Order Comment: CLEAN CATCH Performed By: #### L 400.0001 #### [facility] [address] [place], [address] RBC 0 SEEN Normal 0-5 [facility] Comment on above: Order Comment: CLEAN CATCH Performed By: #### L 400.0001 #### [facility] [address] [place], [address] 12 Lead EKGon 02-27-2024 12 Lead EKG [facility] [address] [place] [address] 12 Lead EKG 02/27/24 1602 MR#: [id number] Acct: [id number] Name: CHRISSY LAY Rep #: [id number] : 1965 58 From: Shabana Arredondo MD Attending Dr: Status: DEP ER Ordering Dr: Andry Madrid MD Date: 02/27/24 Location: ED Sex: F C Admitted: Test Reason : CHEST TIGHTNESS Blood Pressure : / mmHG Vent. Rate : 098 BPM Atrial Rate : 098 BPM P-R Int : 126 ms QRS Dur : 076 ms QT Int : 368 ms P-R-T Axes : 027 008 040 degrees QTc Int : 469 ms Normal sinus rhythm Possible Left atrial enlargement Nonspecific ST abnormality Abnormal ECG Confirmed by FAVIO MURILLO, GIANA ([id number]), assistant film editor PATRICK CARTER ([id number]) on 03/02/2024 1:59:41 PM Referred By: BB Confirmed By:BOBBI ARREDONDO MD 03/02/24 1359 Date Shabana Arredondo MD CC: MAIL ORDER CLERKRebecca Ramsey; Dr. Andry Madrid MD Signed Normal [facility] Basic Metabolic Profile (BMP )on 02-27-2024 BUN/CRE 17.3 RATIO Normal 10-20 [facility] Comment on above: Performed By: #### L 502.0250, L500.4100, L503.6620, L506.1000 #### [facility] [address] [place], [address] CA,Total 9.6 mg/dL Normal 8.5-10.1 [facility] Comment on above: Performed By: #### L 502.0250, L500.4100, L503.6620, L506.1000 #### [facility] [address] [place], [address] Chloride [Moles/Vol] 100 mmol/L Normal 98-107 [facility] Comment on above: Performed By: #### L 502.0250, L500.4100, L503.6620, L506.1000 #### [facility] [address] [place], [address] CO2 [Moles/Vol] 16.0 mmol/L Low 21.0-32.0 [facility] Comment on above: Performed By: #### L 502.0250, L500.4100, L503.6620, L506.1000 #### [facility] [address] [place], [address] Creatinine [Mass/Vol] 1.27 mg/dL High 0.55-1.02 [facility] Comment on above: Result Comment: The validity of the calculated GFR GFRAA in patients over 70 years has not been determined. Clinical correlation is essential. Performed By: #### L 502.0250, L500.4100, L503.6620, L506.1000 #### [facility] [address] [place], [address] ECRCL 58.10 ml/min Normal [facility] Comment on above: Performed By: #### L 502.0250, L500.4100, L503.6620, L506.1000 #### [facility] [address] [place], [address] EST GFR - AA 56 mL/min Low >60 [facility] Comment on above: Result Comment: Afri can Macedonian GFR Calc Performed By: #### L 502.0250, L500.4100, L503.6620, L506.1000 #### [facility] [address] [place], [address] GAP 13 Normal 5-15 [facility] Comment on above: Performed By: #### L 502.0250, L500.4100, L503.6620, L506.1000 #### [facility] [address] [place], [address] GFR/1.73 sq M.predicted among non-blacks MDRD (S/P/Bld) [Vol rate/Area] 46 mL/min/{1.73_m2} Low >60 [facility] Comment on above: Result Comment: Non- GFR Calc Performed By: #### L 502.0250, L500.4100, L503.6620, L506.1000 #### [facility] [address] [place], [address] Glucose [Mass/Vol] 562 mg/dL Invalid Interpretation Code 74-106 [facility] Comment on above: Result Comment: Crit ical Result(s) Called at: 16:38:03 02/27/2024 by: Nila ayala TO MAURICIO. Results read back by same. Glucose result greater than or equal to 200 mg/dL suggests DIABETES MELLITUS per A.D.A. criteria. Performed By: #### L 502.0250, L500.4100, L503.6620, L506.1000 #### [facility] [address] [place], [address] Potassium [Moles/Vol] 4.3 mmol/L Normal 3.5-5.1 [facility] Comment on above: Result Comment: Mode rate Hemolysis, Result may be falsely increased. Performed By: #### L 502.0250, L500.4100, L503.6620, L506.1000 #### [facility] [address] [place], [address] Sodium [Moles/Vol] 129 mmol/L Low 136-145 [facility] Comment on above: Performed By: #### L 502.0250, L500.4100, L503.6620, L506.1000 #### [facility] [address] [place], [address] Urea nitrogen [Mass/Vol] 22 mg/dL High 7-18 [facility] Comment on above: Performed By: #### L 502.0250, L500.4100, L503.6620, L506.1000 #### [facility] [address] [place], [address] Bedside Glucoseon - FINGERSTICK GLU 345 mg/dL High 74-106 [facility] Comment on above: Result Comment: JUSTICE CHAUDHRYENT OF PATIENT CARE PER NURSING PROTOCOL Performed By: #### L 503.6005 #### [facility] [address] [place], [address] FINGERSTICK GLU > 500 Invalid Interpretation Code 74-106 [facility] Comment on above: Result Comment: Dr Genaro talley Followed MANAGEMENT OF PATIENT CARE PER NURSING PROTOCOL Performed By: #### L 503.6005 #### [facility] [address] [place], [address] CBC W/Diff, Automatedon 07-2 Absolute Lymph 0.80 X10 3/uL Low 0.83-4.51 [facility] Comment on above: Performed By: #### L 502.0250, L500.4100, L503.6620, L506.1000 #### [facility] [address] [place], [address] Absolute Neut 13.1 X10 3/uL High 2.0-7.7 [facility] Comment on above: Performed By: #### L 502.0250, L500.4100, L503.6620, L506.1000 #### [facility] [address] [place], [address] Basophils/100 WBC (Bld) 0.2 % Normal 0-1 [facility] Comment on above: Performed By: #### L 502.0250, L500.4100, L503.6620, L506.1000 #### [facility] [address] [place], [address] Eosinophils/100 WBC (Bld) 0.0 % Normal 0-5 [facility] Comment on above: Performed By: #### L 502.0250, L500.4100, L503.6620, L506.1000 #### [facility] [address] [place], [address] Erythrocyte distribution width (RBC) [Ratio] 12.7 % Normal 11.6-14.6 [facility] Comment on above: Performed By: #### L 502.0250, L500.4100, L503.6620, L506.1000 #### [facility] [address] [place], [address] Hematocrit (Bld) [Volume fraction] 47.8 % High 37-47 [facility] Comment on above: Performed By: #### L 502.0250, L500.4100, L503.6620, L506.1000 #### [facility] [address] [place], [address] Hemoglobin (Bld) [Mass/Vol] 16.0 g/dL High 12.0-15.0 [facility] Comment on above: Performed By: #### L 502.0250, L500.4100, L503.6620, L506.1000 #### [facility] [address] [place], [address] IG% 0.700 Normal 0.0-0.9 [facility] Comment on above: Result Comment: IG% - Immature Granulocytes (promyelocytes, myelocytes and metamyelocytes) > 1% indicates that a LEFT SHIFT is Present. Performed By: #### L 502.0250, L500.4100, L503.6620, L506.1000 #### [facility] [address] [place], [address] Lymphocytes/100 WBC (Bld) 5.5 % Low 19-41 [facility] Comment on above: Performed By: #### L 502.0250, L500.4100, L503.6620, L506.1000 #### [facility] [address] [place], [address] MCH (RBC) [Entitic mass] 30.1 pg Normal 27.0-32.0 [facility] Comment on above: Performed By: #### L 502.0250, L500.4100, L503.6620, L506.1000 #### [facility] [address] [place], [address] MCHC (RBC) [Mass/Vol] 33.5 g/dL Normal 32-36 [facility] Comment on above: Performed By: #### L 502.0250, L500.4100, L503.6620, L506.1000 #### [facility] [address] [place], [address] MCV (RBC) [Entitic vol] 90.0 fL Normal 81-99 [facility] Comment on above: Performed By: #### L 502.0250, L500.4100, L503.6620, L506.1000 #### [facility] [address] [place], [address] Monocytes/100 WBC (Bld) 4.2 % Normal 0-10 [facility] Comment on above: Performed By: #### L 502.0250, L500.4100, L503.6620, L506.1000 #### [facility] [address] [place], [address] Neutrophils/100 WBC (Bld) 89.4 % High 47-70 [facility] Comment on above: Performed By: #### L 502.0250, L500.4100, L503.6620, L506.1000 #### [facility] [address] [place], [address] Nucleated RBC (Bld) [#/Vol] 0 10*3/uL Normal 0-5 [facility] Comment on above: Performed By: #### L 502.0250, L500.4100, L503.6620, L506.1000 #### [facility] [address] [place], [address] Platelet mean volume (Bld) [Entitic vol] 9.3 fL Normal 6.2-12.0 [facility] Comment on above: Performed By: #### L 502.0250, L500.4100, L503.6620, L506.1000 #### [facility] [address] [place], [address] Platelets (Bld) [#/Vol] 391 10*3/uL Normal 150-450 [facility] Comment on above: Performed By: #### L 502.0250, L500.4100, L503.6620, L506.1000 #### [facility] [address] [place], [address] RBC (Bld) [#/Vol] 5.31 10*6/uL Normal 4.2-5.4 [facility] Comment on above: Performed By: #### L 502.0250, L500.4100, L503.6620, L506.1000 #### [facility] [address] [place], [address] RDW SD 41.3 fl Normal 35.1-43.9 [facility] Comment on above: Performed By: #### L 502.0250, L500.4100, L503.6620, L506.1000 #### [facility] [address] [place], [address] WBC (Bld) [#/Vol] 14.7 10*3/uL High 4.4-11.0 [facility] Comment on above: Performed By: #### L 502.0250, L500.4100, L503.6620, L506.1000 #### [facility] [address] [place], [address] Emergency Department Summary on 02-27-2024 Emergency Department Summary [facility] Medical Records Department [address] [facility] [place] [address] Emergency Department Summary 02/27/24 MR#: [id number] Acct: [id number] Name: CHRISSY LAY Rep #: [id number] : 1965 58 From: Andry Madrid MD PCP: ELOISA McraeC Status:DEP ER Location: ED HPI History of Present Illness Chief Complaint: General Illness Detail of Chief Complaint: shaky Informant: patient Narrative Narrative: 58-year-old female has had issues with her right knee lately, she was on prednisone for the last week and her blood sugars were high from that, but she was checking her sugars and adjusting her insulin to control that. Yesterday she saw orthopedics and had an injection in her right knee of cortisone, and around 4 - 5 hours later she went to work and an hour in the work she started feeling poorly and feeling shaky and a little lightheaded. She had some palpitations at 1 point, the felt like occasional skipping and beating hard but not racing, and she has had none of that today but continuing to feel very poorly. She checked her blood sugar just prior to coming to the ER and it read on her meter high. She has had excessive thirst and urinary frequency lately and states she accidentally urinated herself just prior to coming here because she could not make it to the bathroom fast enough. No dysuria. She states her right knee is doing great and is not hurting her now. [facility] Medical History Osteoarthritis of right knee Contusion of right chest wall Contusion of right shoulder Contusion of forehead History of diabetes mellitus PTSD (post-traumatic stress disorder) Wears glasses Marijuana use Diabetes Arthritis Easy bruising High cholesterol Restless legs Injury of head and neck Difficulty swallowing Gastric reflux Non-smoker History of stress test History of echocardiogram Cardiology follow-up encounter SACHA (generalized anxiety disorder) Strain of right hip History of colon polyps Acute otitis externa of left ear Acute sinusitis, unspecified TIA (transient ischemic attack) Episode of syncope Urinary tract infection with hematuria Contusion of right ankle Contusion of right foot GI bleed Positive PPD, treated Pneumonia Bronchitis Statin intolerance Dyspnea on exertion Chest pain Near syncope Orthostatic hypotension Hyperlipidemia GERD (gastroesophageal reflux disease) RSD (reflex sympathetic dystrophy) Essential hypertension Diabetes mellitus type II, controlled Strain of unspecified muscle, fascia and tendon at shoulder and upper arm level, right arm, initial encounter Asthma Shoulder pain Hemorrhoids Nausea vomiting Depressed Asthma Home Medications ???Medication ???Instructions ???Recorded ???Last Taken ???Type omeprazole 20 mg capsule,delayed 20 mg PO DAILY GERD 01/04/20 Unknown History release ezetimibe 10 mg tablet 10 mg PO DAILY CHOLESTEROL #90 tabs 04/19/21 Unknown Rx diphenhydramine HCl 25 mg capsule 25 mg PO DAILY PRN allergy symptoms 03/28/22 Unknown History cyclobenzaprine 10 mg tablet 10 mg PO TID PRN Muscle Spasm #20 09/30/22 Unknown Rx TABLETS duloxetine 60 mg capsule,delayed 120 mg (2 x 60 mg) PO DAILY 10/15/22 Unknown Rx release ANXIETY 30 days #60 caps albuterol sulfate 90 mcg/actuation 2 puff inhalation Q4H PRN PRN 01/04/23 Unknown Rx aerosol inhaler (Ventolin HFA) Wheezing or shortness of breath #1 inh potassium chloride 20 mEq 20 meq PO BID #10 tabs 01/04/23 Unknown Rx tablet,extended release(part/cryst) pen needle, diabetic 32 gauge x #100 ea 03/05/23 Unknown Rx 5/32 (BD Ultra-Fine Thais Pen Needle) alcohol swabs 1 pad topical 4X/DAY #200 ea 04/28/23 Unknown Rx furosemide 40 mg tablet 40 mg PO DAILY PRN 04/28/23 Unknown History losartan 25 mg tablet 25 mg PO DAILY #30 tabs 04/28/23 Unknown Rx ondansetron 4 mg disintegrating 4 mg PO Q6H PRN nausea and 04/28/23 Unknown Rx tablet vomiting #10 tabs meclizine 25 mg tablet 25 mg PO TID PRN dizziness #30 tabs 05/23/23 Unknown Rx allopurinol 100 mg tablet 100 mg PO DAILY 06/18/23 Unknown History dulaglutide 1.5 mg/0.5 mL 1.5 mg (0.5 mL) subcut QWEEK #2 mL 09/17/23 Unknown Rx subcutaneous pen injector (Trulicity) flash glucose sensor (FreeStyle #2 ea 09/17/23 Unknown Rx Tanmay 2 Sensor kit) pen needle, diabetic 32 gauge x #100 ea 10/23/23 Unknown Rx (BD Ultra-Fine Thais Pen Needle) lorazepam 1 mg tablet 0.5 mg (1/2 x 1 mg) PO DAILY PRN 12/03/23 Unknown Rx Anxiety #30 tabs ibuprofen 800 mg tablet 800 mg PO TID 12/24/23 Unknown History insulin aspart U-100 100 unit/mL 18 sliding scale dose subcut TID 12/24/23 Unknown History (3 mL) subcutaneous pen (Novolog FlexPen U-100 Insulin aspart) insulin glargine 100 (more content not included)... Normal [facility] Urinalysis, Completeon 02-26 BACTERIA 0 SEEN Normal None Seen [facility] Comment on above: Order Comment: CLEAN CATCH Performed By: #### L 502.0250, L500.4100, L503.6620, L506.1000 #### [facility] [address] [place], [address] EPI,SQUAMOUS 0 SEEN Normal 12-11 [facility] Comment on above: Order Comment: CLEAN CATCH Performed By: #### L 502.0250, L500.4100, L503.6620, L506.1000 #### [facility] [address] [place], [address] Mucus Ql (Urine sed) 0 SEEN Normal [facility] Comment on above: Order Comment: CLEAN CATCH Performed By: #### L 502.0250, L500.4100, L503.6620, L506.1000 #### [facility] [address] [place], [address] RBC 0 SEEN Normal 0-5 [facility] Comment on above: Order Comment: CLEAN CATCH Performed By: #### L 502.0250, L500.4100, L503.6620, L506.1000 #### [facility] [address] [place], [address] WBC 0 SEEN Normal 0-5 [facility] Comment on above: Order Comment: CLEAN CATCH Performed By: #### L 502.0250, L500.4100, L503.6620, L506.1000 #### [facility] [address] [place], [address] Orthopedic Visit Reporton Orthopedic Visit Report [facility] [address] [place] [address] [address] [place] [address] OFFICE VISIT Date of Service: 02/26/24 MR#: [id number] Acct: [id number] Name: CHRISSY LAY Rep #: [id number] : 1965 Provider: Dr. Karl menendez MD Age/Sex: 58/F Location: [facility] [place] Status: Signed Intake Vital Signs 01/07/24 10:41 Height 5 ft 8 in Intake Visit Reasons: RIGHT KNEE Chief Complaint: right knee injury Accompanied by: Self Is patient in pain?: Yes Pain scale (1-10): 5 Allergies adalimumab (From Humira) Allergy (Verified 02/26/24 13:25) Unknown amoxicillin trihydrate (From Augmentin) Allergy (Verified 02/26/24 13:25) Unknown codeine Allergy (Verified 02/26/24 13:25) Itching etanercept (From Enbrel) Allergy (Verified 02/26/24 13:25) Unknown leflunomide (From Arava) Allergy (Verified 02/26/24 13:25) Other metoprolol tartrate (From Lopressor) Allergy (Verified 02/26/24 13:25) Unknown morphine sulfate (From Embeda) Allergy (Verified 02/26/24 13:25) Unknown naltrexone HCl (From Embeda) Allergy (Verified 02/26/24 13:25) Unknown oxymorphone (Oxymorphone) Allergy (Verified 02/26/24 13:25) Unknown pioglitazone HCl (From Actos) Allergy (Verified 02/26/24 13:25) Other pneumococcal 23-valent polysacchari (From Pneumovax 23) Allergy (Verified 02/26/24 13:25) Unknown potassium clavulanate (From Augmentin) Allergy (Verified 02/26/24 13:25) Unknown Madavty-OMC-XuR Reductase Inhibitor (Uojkehr-Kbo-Cie Reductase Inhibitor) Allergy (Verified 02/26/24 13:25) Unknown Sulfa (Sulfonamide Antibiotics) Allergy (Verified 02/26/24 13:25) Anaphylaxis sulfamethoxazole (From Bactrim) Allergy (Verified 02/26/24 13:25) Anaphylaxis telithromycin (From Ketek) Allergy (Verified 02/26/24 13:25) Unknown tramadol HCl (From Ultram) Allergy (Verified 02/26/24 13:25) Unknown trimethoprim (From Bactrim) Allergy (Verified 02/26/24 13:25) Anaphylaxis Medications ???Medication ???Instructions ???Recorded ???Confirmed ???Type omeprazole 20 mg capsule,delayed 20 mg PO DAILY GERD 01/04/20 02/26/24 History release ezetimibe 10 mg tablet 10 mg PO DAILY CHOLESTEROL #90 tabs 04/19/21 02/26/24 Rx diphenhydramine HCl 25 mg capsule 25 mg PO DAILY PRN allergy symptoms 03/28/22 02/26/24 History cyclobenzaprine 10 mg tablet 10 mg PO TID PRN Muscle Spasm #20 09/30/22 02/26/24 Rx TABLETS duloxetine 60 mg capsule,delayed 120 mg (2 x 60 mg) PO DAILY 10/15/22 02/26/24 Rx release ANXIETY 30 days #60 caps albuterol sulfate 90 mcg/actuation 2 puff inhalation Q4H PRN PRN 01/04/23 02/26/24 Rx aerosol inhaler (Ventolin HFA) Wheezing or shortness of breath #1 inh potassium chloride 20 mEq 20 meq PO BID #10 tabs 01/04/23 02/26/24 Rx tablet,extended release(part/cryst) pen needle, diabetic 32 gauge x #100 ea 03/05/23 02/26/24 Rx 5/32 (BD Ultra-Fine Thais Pen Needle) alcohol swabs 1 pad topical 4X/DAY #200 ea 04/28/23 02/26/24 Rx furosemide 40 mg tablet 40 mg PO DAILY PRN 04/28/23 02/26/24 History losartan 25 mg tablet 25 mg PO DAILY #30 tabs 04/28/23 02/26/24 Rx ondansetron 4 mg disintegrating 4 mg PO Q6H PRN nausea and 04/28/23 02/26/24 Rx tablet vomiting #10 tabs meclizine 25 mg tablet 25 mg PO TID PRN dizziness #30 tabs 05/23/23 02/26/24 Rx allopurinol 100 mg tablet 100 mg PO DAILY 06/18/23 02/26/24 History dulaglutide 1.5 mg/0.5 mL 1.5 mg (0.5 mL) subcut QWEEK #2 mL 09/17/23 02/26/24 Rx subcutaneous pen injector (Trulicity) flash glucose sensor (FreeStyle #2 ea 09/17/23 02/26/24 Rx Tanmay 2 Sensor kit) pen needle, diabetic 32 gauge x #100 ea 10/23/23 02/26/24 Rx 5/32 (BD Ultra-Fine Thais Pen Needle) lorazepam 1 mg tablet 0.5 mg (1/2 x 1 mg) PO DAILY PRN 12/03/23 02/26/24 Rx Anxiety #30 tabs ibuprofen 800 mg tablet 800 mg PO TID 12/24/23 02/26/24 History insulin aspart U-100 100 unit/mL 18 sliding scale dose subcut TID 12/24/23 02/26/24 History (3 mL) subcutaneous pen (Novolog FlexPen U-100 Insulin aspart) insulin glargine 100 unit/mL (3 28 unit subcut QAM 12/24/23 02/26/24 History mL) subcutaneous pen (Basaglar KwikPen U-100 Insulin) [facility] Medical History (Updated 02/26/24 @ 13:48 by Karl Ashton MD) Osteoarthritis of right knee Contusion of right chest wall Contusion of right shoulder Contusion of forehead History of diabetes mellitus PTSD (post-traumatic stress disorder) Wears glasses Marijuana use Diabetes Arthritis Easy bruising High cholesterol Restless legs Injury of head and neck Difficulty swallowing Gastric reflux Non-smoker History of stress test History of echocardiogram Cardiology follow-up encounter SACHA (generalized anxiety disorder) Strain of right hip History of colon polyps Acute otitis externa of left ear Acute sin (more content not included)... Normal [facility] Knee 3 Viewson 02-20-2024 Knee 3 Views [facility] [address] [place], [place] [address] Knee 3 Views MR#: [id number] Acct: [id number] Name: CHRISSY LAY Rep #: [id number] : 1965 F 58 From: Tim keating MD PCP: Chantale Ramsey NP-C Status: REG CLI Study: Knee 3 Views Date of Exam: 02/20/24 Exam# [id number] Ordering Dr: Noe Lino :[id number] STUDY: X-RAY - RIGHT KNEE REASON FOR EXAM: Female, 58 years old. Knee injury TECHNIQUE: 3 view(s) of the knee. COMPARISON: None. FINDINGS: Normal visualized distal femur. Normal visualized proximal tibia and fibula. Normal proximal tibiofibular articulation. Normal medial femorotibial compartment. Normal lateral femorotibial compartment. Normal patellofemoral articulation. The soft tissue structures are unremarkable. RAD/Knee 3 Views IMPRESSION: Normal x-ray examination of the knee. Electronically Signed: Tim Cadet MD at 11:11 EDT , CC: MAIL ORDER CLERKChuckC Chantale Ramsey; CHEPE Pro Principal Gifts Officer: Signed Normal [facility] Urgent Care Visit Reporton 0 02-20-2024 Urgent Care Visit Report [facility] [address], [address] [place] [address] OFFICE VISIT Date of Service: 02/20/24 MR#: [id number] Acct: [id number] Name: CHRISSY LAY Rep #: [id number] : 1965 Provider: CHEPE Pro Age/Sex: 58/F Location: [facility] [place] Status: Signed Intake Vital Signs 01/07/24 10:41 02/20/24 11:08 Height 5 ft 8 in BP 105/84 H 152/88 H Blood Pressure Location Rt brachial Lt brachial Position Sitting Sitting Respiration 20 H 16 Pulse 110 H 86 Pulse Source Monitor NIBP Temp 98.4 F Temp Source Temporal Pulse Oximetry (%) 98 98 Oxygen Delivery Method room air room air Intake Visit Reasons: R KNEE PAIN/INJURY X2WK PRIOR Chief Complaint: right knee injury Grain Operator Required: No Is patient in pain?: Yes Allergies adalimumab (From Humira) Allergy (Verified 02/20/24 11:09) Unknown amoxicillin trihydrate (From Augmentin) Allergy (Verified 02/20/24 11:09) Unknown codeine Allergy (Verified 02/20/24 11:09) Itching etanercept (From Enbrel) Allergy (Verified 02/20/24 11:09) Unknown leflunomide (From Arava) Allergy (Verified 02/20/24 11:09) Other metoprolol tartrate (From Lopressor) Allergy (Verified 02/20/24 11:09) Unknown morphine sulfate (From Embeda) Allergy (Verified 02/20/24 11:09) Unknown naltrexone HCl (From Embeda) Allergy (Verified 02/20/24 11:09) Unknown oxymorphone (Oxymorphone) Allergy (Verified 02/20/24 11:09) Unknown pioglitazone HCl (From Actos) Allergy (Verified 02/20/24 11:09) Other pneumococcal 23-valent polysacchari (From Pneumovax 23) Allergy (Verified 02/20/24 11:09) Unknown potassium clavulanate (From Augmentin) Allergy (Verified 02/20/24 11:09) Unknown Dbkxwsl-BBZ-IcB Reductase Inhibitor (Jzowwre-Tzg-Wbm Reductase Inhibitor) Allergy (Verified 02/20/24 11:09) Unknown Sulfa (Sulfonamide Antibiotics) Allergy (Verified 02/20/24 11:09) Anaphylaxis sulfamethoxazole (From Bactrim) Allergy (Verified 02/20/24 11:09) Anaphylaxis telithromycin (From Ketek) Allergy (Verified 02/20/24 11:09) Unknown tramadol HCl (From Ultram) Allergy (Verified 02/20/24 11:09) Unknown trimethoprim (From Bactrim) Allergy (Verified 02/20/24 11:09) Anaphylaxis Is last menstrual period known: No Post menopausal: Yes Patient : No Have you fallen in the past year?: Yes Nurse's Note: twisted right knee 2 weeks ago, c/o pain to medial aspect of right knee worsening. hx surgery to same area but unsure of what type. worse pain with ambulation PFSH Medical History Contusion of right chest wall Contusion of right shoulder Contusion of forehead History of diabetes mellitus PTSD (post-traumatic stress disorder) Wears glasses Marijuana use Diabetes Arthritis Easy bruising High cholesterol Restless legs Injury of head and neck Difficulty swallowing Gastric reflux Non-smoker History of stress test History of echocardiogram Cardiology follow-up encounter SACHA (generalized anxiety disorder) Strain of right hip History of colon polyps Acute otitis externa of left ear Acute sinusitis, unspecified TIA (transient ischemic attack) Episode of syncope Urinary tract infection with hematuria Contusion of right ankle Contusion of right foot GI bleed Positive PPD, treated Pneumonia Bronchitis Statin intolerance Dyspnea on exertion Chest pain Near syncope Orthostatic hypotension Hyperlipidemia GERD (gastroesophageal reflux disease) RSD (reflex sympathetic dystrophy) Essential hypertension Diabetes mellitus type II, controlled Strain of unspecified muscle, fascia and tendon at shoulder and upper arm level, right arm, initial encounter Asthma Shoulder pain Hemorrhoids Nausea vomiting Depressed Asthma Surgical History History of arthroscopy of right knee History of hysterectomy History of appendectomy History of colonoscopy Hx of shoulder surgery Family History Father Diabetes Hypertension Mother Diabetes Hypertension Colon polyp Other Cancer Social History household members: none Smoking Status: Never smoker alcohol intake: current alcohol intake frequency: 0-2 drinks per day Alcohol type: hard liquor substance use type: other details: Gummies HPI HPI Chief Complaint: right knee injury Details: CHRISSY LAY, is a 58 F who presents to the office today for initial eval of right knee strain. Patient twisted her right knee 2 weeks ago and states pain has worsened since then. States tylenol and ibuprofen do help but only for a short time. Patient reports right knee surgery when younger but [place] (more content not included)... Normal [facility] No Panel Informationon 02-08 Culture Urine >100,000 cfu/ml Staphylococcus saprophyticus Routine sensitivity testing of urine isolates of S.saprophyticus is not advised because infections respond respond to concentrations achieved in urine of antimicrobial agents commonly used to treat acute, uncomplicated urinary tract infections (e.g., nitrofurantoin, fluoroquinolone, or trimethoprim +/- sulfamethoxazole). [facility] Work Phone: Staphylococcus saprophyticus Staphylococcus saprophyticus [facility] Work Phone: .GFRon 12-26-2023 GFR 75 ml/min/1.73sqm Normal [facility] ([place]) Comment on above: Result Comment: GFR Population mean for , Non- Americans Ages 20-29 = 116 mL/min/1.73 sq.m. Ages 30-39 = 107 mL/min/1.73 sq.m. Ages 40-49 = 99 mL/min/1.73 sq.m. Ages 50-59 = 93 mL/min/1.73 sq.m. Ages 60-69 = 85 mL/min/1.73 sq.m. Ages 70+ = 75 mL/min/1.73 sq.m. Chronic Kidney Disease: Less than 60 mL/min/1.73 square meters End Stage Renal Disease: Less than 15 mL/min/1.73 square meters Performed By: #### T SH, GFR, CMP, FT4 #### [id number] [place], [place] [address] GFR Non- 62 ml/min/1.73sqm Normal [facility] ([place]) Comment on above: Result Comment: GFR Population mean for , Non- Americans Ages 20-29 = 116 mL/min/1.73 sq.m. Ages 30-39 = 107 mL/min/1.73 sq.m. Ages 40-49 = 99 mL/min/1.73 sq.m. Ages 50-59 = 93 mL/min/1.73 sq.m. Ages 60-69 = 85 mL/min/1.73 sq.m. Ages 70+ = 75 mL/min/1.73 sq.m. Chronic Kidney Disease: Less than 60 mL/min/1.73 square meters End Stage Renal Disease: Less than 15 mL/min/1.73 square meters Performed By: #### T SH, GFR, CMP, FT4 #### [address] [address] CMPon 12-26-2023 Albumin Level 3.4 G/dL Low 3.5-5.0 [facility] ([place] Comment on above: Performed By: #### T SH, GFR, CMP, FT4 #### [address] [address] Albumin/Globulin [Mass ratio] 0.9 {ratio} Low 1.1-2.5 [facility] ([place] Comment on above: Performed By: #### T SH, GFR, CMP, FT4 #### [address] [address] ALP [Catalytic activity/Vol] 87 U/L Normal 40-135 [facility] ([place] Comment on above: Performed By: #### T SH, GFR, CMP, FT4 #### [address] [address] ALT [Catalytic activity/Vol] 42 U/L Normal 14-59 [facility] ([place] Comment on above: Performed By: #### T SH, GFR, CMP, FT4 #### [address] [address] AST [Catalytic activity/Vol] 18 U/L Normal 10-40 [facility] ([place] Comment on above: Performed By: #### T SH, GFR, CMP, FT4 #### [address] [address] Bili Total 0.4 mg/dL Normal 0.2-1.0 [facility] ([place] Comment on above: Result Comment: Use of this assay is not recommended for patients undergoing treatment with eltrombopag due to the potential for falsely elevated results. Performed By: #### T SH, GFR, CMP, FT4 #### [place] [id number] BUN/Creatinine Ratio 20 ratio Normal 7-27 [facility] ([place] Comment on above: Performed By: #### T SH, GFR, CMP, FT4 #### [address] [address] Calcium [Mass/Vol] 9.0 mg/dL Normal 8.4-10.2 [facility] ([place] Comment on above: Performed By: #### T SH, GFR, CMP, FT4 #### [address] [address] Chloride [Moles/Vol] 104 mmol/L Normal 98-107 [facility] ([place] Comment on above: Performed By: #### T SH, GFR, CMP, FT4 #### [address] [address] CO2 [Moles/Vol] 26 mmol/L Normal 22-29 [facility] ([place] Comment on above: Performed By: #### T SH, GFR, CMP, FT4 #### [address] [address] Creatinine [Mass/Vol] 0.93 mg/dL Normal 0.55-1.02 [facility] ([place] Comment on above: Performed By: #### T SH, GFR, CMP, FT4 #### [address] [address] Electrolyte Balance 13.0 mEq/L Normal 4.0-15.0 [facility] ([place]) Comment on above: Performed By: #### T SH, GFR, CMP, FT4 #### [address] [address] Globulin 3.6 G/dL Normal [facility] ([place] Comment on above: Performed By: #### T SH, GFR, CMP, FT4 #### [address] [address] Glucose [Mass/Vol] 246 mg/dL High 70-105 [facility] ([place] Comment on above: Performed By: #### T SH, GFR, CMP, FT4 #### [address] [address] Potassium [Moles/Vol] 4.4 mmol/L Normal 3.5-5.1 [facility] ([place] Comment on above: Performed By: #### T SH, GFR, CMP, FT4 #### [address] [address] Sodium [Moles/Vol] 143 mmol/L Normal 136-145 [facility] ([place] Comment on above: Performed By: #### T SH, GFR, CMP, FT4 #### [address] [address] Total Protein 7.0 G/dL Normal 6.4-8.2 [facility] ([place] Comment on above: Performed By: #### T SH, GFR, CMP, FT4 #### [address] [address] Urea nitrogen [Mass/Vol] 19 mg/dL High 7-18 [facility] ([place] Comment on above: Performed By: #### T SH, GFR, CMP, FT4 #### [address] [address] FT4on 12-26-2023 Free T4 [Mass/Vol] 0.74 ng/dL Low 0.76-1.46 [facility] ([place] Comment on above: Performed By: #### T SH, GFR, CMP, FT4 #### [address] [address] LABORATORYOrdered By: SYSTEM SYSTEM on 12-26-2023 Albumin BCP dye [Mass/Vol] 3.4 G/dL Low 3.5 - 5.0 G/dL AO ADM SS Albumin/Globulin [Mass ratio] 0.9 {ratio} Low 1.1 - 2.5 ratio AO ADM SS ALP [Catalytic activity/Vol] 87 U/L Normal 40 - 135 U/L AO ADM SS ALT With P-5'-P [Catalytic activity/Vol] 42 U/L Normal 14 - 59 U/L AO ADM SS AST With P-5'-P [Catalytic activity/Vol] 18 U/L Normal 10 - 40 U/L AO ADM SS Bilirubin [Mass/Vol] 0.4 mg/dL Normal 0.2 - 1.0 mg/dL AO ADM SS Comment on above: Interpretive Data: U se of this assay is not recommended for patients undergoing treatment with eltrombopag due to the potential for falsely elevated results. Calcium [Mass/Vol] 9.0 mg/dL Normal 8.4 - 10. 2 mg/dL AO ADM SS Chloride [Moles/Vol] 104 mmol/L Normal 98 - 107 mmol/L AO ADM SS CO2 [Moles/Vol] 26 mmol/L Normal 22 - 29 mmol/L AO ADM SS Creatinine [Mass/Vol] 0.93 mg/dL Normal 0.55 - 1.02 mg/dL AO ADM SS Electrolyte Balance 13.0 mEq/L Normal 4.0 - 15 .0 mEq/L AO ADM SS Free T4 [Mass/Vol] 0.74 ng/dL Low 0.76 - 1. 46 ng/dL AO ADM SS GFR/1.73 sq M.predicted among blacks MDRD (S/P/Bld) [Vol rate/Area] 75 ml/min/1.73sqm Invalid Interpretation Code AO Chemistry S Comment on above: Interpretive Data: GFR Population mean for , Non- Americans Ages 20-29 = 116 mL/min/1.73 sq.m. Ages 30-39 = 107 mL/min/1.73 sq.m. Ages 40-49 = 99 mL/min/1.73 sq.m. Ages 50-59 = 93 mL/min/1.73 sq.m. Ages 60-69 = 85 mL/min/1.73 sq.m. Ages 70+ = 75 mL/min/1.73 sq.m. Chronic Kidney Disease: Less than 60 mL/min/1.73 square meters End Stage Renal Disease: Less than 15 mL/min/1.73 square meters GFR/1.73 sq M.predicted among non-blacks MDRD (S/P/Bld) [Vol rate/Area] 62 ml/min/1.73sqm Invalid Interpretation Code AO Chemistry S Comment on above: Interpretive Data: GFR Population mean for , Non- Americans Ages 20-29 = 116 mL/min/1.73 sq.m. Ages 30-39 = 107 mL/min/1.73 sq.m. Ages 40-49 = 99 mL/min/1.73 sq.m. Ages 50-59 = 93 mL/min/1.73 sq.m. Ages 60-69 = 85 mL/min/1.73 sq.m. Ages 70+ = 75 mL/min/1.73 sq.m. Chronic Kidney Disease: Less than 60 mL/min/1.73 square meters End Stage Renal Disease: Less than 15 mL/min/1.73 square meters Globulin 3.6 G/dL Invalid Interpretation Code AO ADM SS Glucose [Mass/Vol] 246 mg/dL High 70 - 105 mg/dL AO ADM SS Potassium [Moles/Vol] 4.4 mmol/L Normal 3.5 - 5.1 mmol/L AO ADM SS Protein [Mass/Vol] 7.0 G/dL Normal 6.4 - 8.2 G/dL AO ADM SS Sodium [Moles/Vol] 143 mmol/L Normal 136 - 145 mmol/L AO ADM SS TSH Qn 2.46 m[IU]/L Normal 0.36 - 3.74 mcIU/mL AO ADM SS Urea nitrogen [Mass/Vol] 19 mg/dL High 7 - 18 mg/dL AO ADM SS Urea nitrogen/Creatinine [Mass ratio] 20 ratio Normal 7 - 27 ratio AO ADM SS TSHon 12-26-2023 TSH Qn 2.46 m[IU]/L Normal 0.36-3.74 [facility] ([place]) Comment on above: Performed By: #### T SH, GFR, CMP, FT4 #### [address] [address] [address] SPINE CERVICAL W/O CONTRA STon 11-07-2023 CT SPINE CERVICAL W/O CONTRAST ORIGINAL EXAMINATION: CT OF THE CERVICAL SPINE WITHOUT CONTRAST 11/07/2023 4:59 pm TECHNIQUE: CT of the cervical spine was performed without the administration of intravenous contrast. Multiplanar reformatted images are provided for review. Automated exposure control, iterative reconstruction, and/or weight based adjustment of the mA/kV was utilized to reduce the radiation dose to as low as reasonably achievable. COMPARISON: None. HISTORY: ORDERING SYSTEM PROVIDED HISTORY: Reason for Exam: constant dizziness, neck pain following fall 9 days ago, history of cervical fusion FINDINGS: BONES/ALIGNMENT: There is no acute fracture or traumatic malalignment. There is C3-C6 ACDF with intervertebral osseous fusion. Visualized hardware is grossly intact without loosening. There are bilateral cervical ribs. DEGENERATIVE CHANGES: There is mild posterior ridging at the C3-C6 levels with mild central canal stenosis. There is uncovertebral and facet hypertrophy at multiple levels, with mild to moderate neuroforaminal stenoses. SOFT TISSUES: There is no prevertebral soft tissue swelling. There is a diminutive thyroid gland. Epiglottis is normal in thickness. There are mildly enlarged cervical nodes which may be reactive. IMPRESSION: 1. There is C3-C6 ACDF with intervertebral osseous fusion. Visualized hardware is grossly intact without loosening. There is no acute vertebral fracture or dislocation of the cervical spine. Interpreted by: Lang Denis Preliminary Report By: Lang Denis Electronically signed By Lang Denis Dictated Date: 11/07/2023 5:25:10 PM Prelim Date: 11/07/2023 5:35:06 PM Sign Date: 11/07/2023 5:35:06 PM Ordering Provider: PIPER Nelson [facility] ([place]) [place] MAMMOGRAM SCREENING BILAT ERAL W/TOMOon 10-28-2023 MA MAMMOGRAM SCREENING BILATERAL W/KARI ORIGINAL FROM: [facility] [address] [place] [address] PROCEDURE FOR: CHRISSY LAY [address] [place] [address] Home: PID#: [id number] Exam#: [id number] : 1965 Age: 58 TO: CHANTALE RASMEY [employer] [facility] [address] [place], [place] [address] Fax: NO FAX EXAMINATION: SCREENING DIGITAL BILATERAL MAMMOGRAM WITH TOMOSYNTHESIS, 10/17/2023 1:46 pm TECHNIQUE: Screening mammography of the bilateral breasts was performed with tomosynthesis. 2D standard and 3D tomosynthesis combination imaging performed through both breasts in the MLO and CC projection. Computer aided detection was utilized in the interpretation of this exam. COMPARISON: March 01, 2021, December 02, 2018, February 26, 2018 HISTORY: Breast cancer screening. FINDINGS: BREAST DENSITY: Heterogeneously dense there is a biopsy marker clip in the left breast. There are benign left breast calcifications. There is no significant mass, architectural distortion or microcalcification. Fibroglandular pattern is stable. IMPRESSION: No mammographic evidence of malignancy. Continued screening with annual mammograms is recommended. At the time of imaging, the patient described left nipple on and off stinging sensation as per the technologist note. Correlate clinically. If clinically indicated, a breast ultrasound could be performed. Rudy Reyeszick risk calculations, generated with the history provided, report this patient's 10 year risk and lifetime risk for developing breast cancer at 1.7% and 5.1%, respectively. Based on this assessment tool, if the patient's calculated lifetime risk is below 20%, then the patient is considered at average risk for developing breast cancer. If the patient's calculated lifetime risk is at or above 20%, then the patient is considered high risk for developing breast cancer and may be a candidate for supplemental breast MRI screening in addition to annual mammographic screening per the [employer]. BIRADS: MAMMOGRAM BI-RADS: 2: Benign finding RECALL: 1 year screening RECALL TYPE: mammo LETTER SENT: Normal BI-RADS 1 and 2 Interpreted by: Glenis Banuelos Preliminary Report By: Glenis Banuelos Electronically signed By Glenis Banuelos Dictated Date: 10/28/2023 3:42:07 PM Prelim Date: 10/28/2023 3:48:35 PM Sign Date: 10/28/2023 3:48:35 PM Ordering Provider: CHANTALE RAMSEY Cleaning Attendant: JANIYA ALARCON RT (R)(M) letter sent: Normal BI-RADS 1 and 2 Mammogram BI-RADS: 2 Benign Normal [facility] ([place]) FT4on 09-26-2023 Free T4 [Mass/Vol] 0.65 ng/dL Low 0.76-1.46 [facility] ([place]) Comment on above: Performed By: #### T SH, GFR, CMP, FT4 #### [address] [address] MALBRon 09-26-2023 U Creatinine 23.2 mg/dL Low 28.0-117.0 [facility] ([place] Comment on above: Performed By: #### T SH, GFR, CMP, FT4 #### [address] [address] U Microalb <130 Normal [facility] ([place] Comment on above: Performed By: #### T SH, GFR, CMP, FT4 #### [address] [address] U Ratio Alb/Cre Unable to Calculate Normal 0-30 On license of [facility]) Comment on above: Result Comment: Unab le to calculate this test result accurately. Results used to calculate this test are outside the reportable range. Performed By: #### T SH, GFR, CMP, FT4 #### [address] [address] TSHon 09-26-2023 TSH Qn 2.24 m[IU]/L Normal 0.36-3.74 [facility] ([place]) Comment on above: Performed By: #### T SH, GFR, CMP, FT4 #### [address] [address] .Auto Diffon 09-25-2023 Basophil, Absolute 0.1 10 3/mcL Normal 0.0-0.2 [facility]) Comment on above: Performed By: #### T SH, GFR, CMP, FT4 #### [address] [address] Basophils/100 WBC (Bld) 1.0 % Normal 0.0-2.5 [facility] ([place] Comment on above: Performed By: #### T SH, GFR, CMP, FT4 #### [address] [address] Eosinophil, Absolute 0.3 10 3/mcL Normal 0.0-0.4 [facility] ([place]) Comment on above: Performed By: #### T SH, GFR, CMP, FT4 #### [address] [address] Eosinophils/100 WBC (Bld) 4.5 % Normal 0.0-7.0 [facility] ([place]) Comment on above: Performed By: #### T SH, GFR, CMP, FT4 #### [address] [address] Lymphocyte, Absolute 2.5 10 3/mcL Normal 0.8-3.9 [facility] ([place]) Comment on above: Performed By: #### T SH, GFR, CMP, FT4 #### [address] [address] Lymphocytes/100 WBC (Bld) 44.2 % Normal 10.0-50.0 [facility] ([place]) Comment on above: Performed By: #### T SH, GFR, CMP, FT4 #### [address] [address] Monocyte, Absolute 0.4 10 3/mcL Normal 0.2-1.0 [facility] ([place]) Comment on above: Performed By: #### T SH, GFR, CMP, FT4 #### [address] [address] Monocytes/100 WBC (Bld) 7.1 % Normal 1.7-13.0 [facility] ([place]) Comment on above: Performed By: #### T SH, GFR, CMP, FT4 #### [address] [address] Neutrophils/100 WBC (Bld) 43.2 % Normal 37.0-80.0 [facility] ([place]) Comment on above: Performed By: #### T SH, GFR, CMP, FT4 #### [address] [address] .GFRon 09-25-2023 GFR 110 ml/min/1.73sqm Normal [facility] ([place]) Comment on above: Result Comment: GFR Population mean for , Non- Americans Ages 20-29 = 116 mL/min/1.73 sq.m. Ages 30-39 = 107 mL/min/1.73 sq.m. Ages 40-49 = 99 mL/min/1.73 sq.m. Ages 50-59 = 93 mL/min/1.73 sq.m. Ages 60-69 = 85 mL/min/1.73 sq.m. Ages 70+ = 75 mL/min/1.73 sq.m. Chronic Kidney Disease: Less than 60 mL/min/1.73 square meters End Stage Renal Disease: Less than 15 mL/min/1.73 square meters Performed By: #### T SH, GFR, CMP, FT4 #### [address] [address] GFR Non- 91 ml/min/1.73sqm Normal [facility] ([place] Comment on above: Result Comment: GFR Population mean for , Non- Americans Ages 20-29 = 116 mL/min/1.73 sq.m. Ages 30-39 = 107 mL/min/1.73 sq.m. Ages 40-49 = 99 mL/min/1.73 sq.m. Ages 50-59 = 93 mL/min/1.73 sq.m. Ages 60-69 = 85 mL/min/1.73 sq.m. Ages 70+ = 75 mL/min/1.73 sq.m. Chronic Kidney Disease: Less than 60 mL/min/1.73 square meters End Stage Renal Disease: Less than 15 mL/min/1.73 square meters Performed By: #### T SH, GFR, CMP, FT4 #### [place] [address] [address] .NEUABSon 09-25-2023 Neutrophil, Absolute 2.5 10 3/mcL Low 2.9-6.2 [facility] ([place]) Comment on above: Performed By: #### T SH, GFR, CMP, FT4 #### [address] [address] A1Con 09-25-2023 HbA1c (Bld) [Mass fraction] 9.0 % High 4.3-6.4 [facility] ([place]) Comment on above: Performed By: #### T SH, GFR, CMP, FT4 #### [address] [address] CBCon 09-25-2023 Erythrocyte distribution width (RBC) [Ratio] 12.9 % Normal 11.5-14.5 [facility] ([place] Comment on above: Performed By: #### T SH, GFR, CMP, FT4 #### [place] [address] Hematocrit (Bld) [Volume fraction] 41.1 % Normal 37.0-47.0 [facility] ([place] Comment on above: Performed By: #### T SH, GFR, CMP, FT4 #### [place] [address] Hgb 13.9 G/dL Normal 12.0-16.0 [facility] ([place] Comment on above: Performed By: #### T SH, GFR, CMP, FT4 #### [place] [address] MCH (RBC) [Entitic mass] 30.7 pg Normal 27.0-31.2 [facility] ([place] Comment on above: Performed By: #### T SH, GFR, CMP, FT4 #### [place] [address] MCHC 34.0 G/dL Normal 33.0-37.0 [facility] ([place] Comment on above: Performed By: #### T SH, GFR, CMP, FT4 #### [place] [address] MCV (RBC) [Entitic vol] 90.4 fL Normal 80.0-94.0 [facility] ([place] Comment on above: Performed By: #### T SH, GFR, CMP, FT4 #### [address] [address] Platelet 366 10 3/mcL Normal 130-400 [facility] ([place] Comment on above: Performed By: #### T SH, GFR, CMP, FT4 #### [place] [address] [address] Platelet mean volume (Bld) [Entitic vol] 6.8 fL Low 7.4-10.4 [facility] ([place] Comment on above: Performed By: #### T SH, GFR, CMP, FT4 #### [address] [address] RBC 4.54 10 6/mcL Normal 4.20-5.40 [facility] ([place] Comment on above: Performed By: #### T SH, GFR, CMP, FT4 #### [address] [address] WBC 5.7 10 3/mcL Normal 4.6-10.8 [facility] ([place] Comment on above: Performed By: #### T SH, GFR, CMP, FT4 #### [address] [address] CMPon 09-25-2023 Albumin Level 3.3 G/dL Low 3.5-5.0 [facility] ([place] Comment on above: Performed By: #### T SH, GFR, CMP, FT4 #### [address] [address] Albumin/Globulin [Mass ratio] 0.9 {ratio} Low 1.1-2.5 [facility] ([place]) Comment on above: Performed By: #### T SH, GFR, CMP, FT4 #### [address] [address] ALP [Catalytic activity/Vol] 135 U/L Normal 40-135 [facility] ([place] Comment on above: Performed By: #### T SH, GFR, CMP, FT4 #### [address] [address] ALT [Catalytic activity/Vol] 70 U/L High 14-59 [facility] ([place] Comment on above: Performed By: #### T SH, GFR, CMP, FT4 #### [address] [address] AST [Catalytic activity/Vol] 56 U/L High 10-40 [facility] ([place] Comment on above: Performed By: #### T SH, GFR, CMP, FT4 #### [address] [address] Bili Total 0.2 mg/dL Normal 0.2-1.0 [facility] ([place] Comment on above: Result Comment: Use of this assay is not recommended for patients undergoing treatment with eltrombopag due to the potential for falsely elevated results. Performed By: #### T SH, GFR, CMP, FT4 #### [address] [address] BUN/Creatinine Ratio 19 ratio Normal 7-27 [facility] ([place] Comment on above: Performed By: #### T SH, GFR, CMP, FT4 #### [address] [address] Calcium [Mass/Vol] 8.9 mg/dL Normal 8.4-10.2 [facility] ([place] Comment on above: Performed By: #### T SH, GFR, CMP, FT4 #### [address] [address] Chloride [Moles/Vol] 104 mmol/L Normal 98-107 [facility] ([place] Comment on above: Performed By: #### T SH, GFR, CMP, FT4 #### [address] [address] CO2 [Moles/Vol] 30 mmol/L High 22-29 [facility] ([place] Comment on above: Performed By: #### T SH, GFR, CMP, FT4 #### [address] [address] Creatinine [Mass/Vol] 0.67 mg/dL Normal 0.55-1.02 [facility] ([place] Comment on above: Performed By: #### T SH, GFR, CMP, FT4 #### [address] [address] Electrolyte Balance 7.0 mEq/L Normal 4.0-15.0 [facility] ([place]) Comment on above: Performed By: #### T SH, GFR, CMP, FT4 #### [address] [address] Globulin 3.7 G/dL Normal [facility] ([place] Comment on above: Performed By: #### T SH, GFR, CMP, FT4 #### [address] [address] Glucose [Mass/Vol] 146 mg/dL High 70-105 [facility] ([place] Comment on above: Performed By: #### T SH, GFR, CMP, FT4 #### [address] [address] Potassium [Moles/Vol] 4.5 mmol/L Normal 3.5-5.1 [facility] ([place] Comment on above: Performed By: #### T SH, GFR, CMP, FT4 #### [address] [address] Sodium [Moles/Vol] 141 mmol/L Normal 136-145 [facility] ([place] Comment on above: Performed By: #### T SH, GFR, CMP, FT4 #### [address] [address] Total Protein 7.0 G/dL Normal 6.4-8.2 [facility] ([place] Comment on above: Performed By: #### T SH, GFR, CMP, FT4 #### [address] [address] Urea nitrogen [Mass/Vol] 13 mg/dL Normal 7-18 [facility] ([place] Comment on above: Performed By: #### T SH, GFR, CMP, FT4 #### [address] [address] LIPIDon 09-25-2023 Cholesterol [Mass/Vol] 236 mg/dL High 0-200 [facility] ([place] Comment on above: Result Comment: Chol esterol Reference Interval: Less than 200 Desirable 200-239 Borderline high risk 240 and above High risk Performed By: #### T SH, GFR, CMP, FT4 #### [address] [address] Cholesterol in HDL [Mass/Vol] 60 mg/dL Normal 40-60 [facility] ([place] Comment on above: Performed By: #### T SH, GFR, CMP, FT4 #### [address] [address] Cholesterol in LDL [Mass/Vol] 107 mg/dL Normal 0-130 [facility] ([place] Comment on above: Performed By: #### T SH, GFR, CMP, FT4 #### [address] [address] Triglyceride [Mass/Vol] 346 mg/dL High 0-150 [facility] ([place] Comment on above: Result Comment: Trig lyceride Reference Interval: Less than 150 Normal 150-199 Borderline high risk 200-499 High risk 500 or higher Very high risk Performed By: #### T SH, GFR, CMP, FT4 #### [address] [address] MGon 09-25-2023 Magnesium [Mass/Vol] 1.6 mg/dL Low 1.8-2.4 [facility] ([place] Comment on above: Performed By: #### T SH, GFR, CMP, FT4 #### [address] [address] MRI BRAIN W/O CONTRASTon MRI BRAIN W/O CONTRAST ORIGINAL EXAMINATION: MRI OF THE BRAIN WITHOUT CONTRAST 09/09/2023 10:29 am TECHNIQUE: Multiplanar multisequence MRI of the brain was performed without the administration of intravenous contrast. COMPARISON: None. HISTORY: ORDERING SYSTEM PROVIDED HISTORY: Reason for Exam: post concussion syndrome FINDINGS: No acute infarct or hemorrhage. No midline shift, mass effect or hydrocephalus. No extra-axial fluid collection. No abnormal parenchymal susceptibility. No evidence of encephalomalacia. There are however a few scattered foci of T2 prolongation in the periventricular and subcortical white matter bilaterally. Findings are nonspecific. Basilar cisterns patent. Minimal sinus and mastoid inflammatory disease. IMPRESSION: No acute findings. No findings to suggest sequela of chronic traumatic brain injury. Mild nonspecific white matter disease. Primary differential considerations include sequela of migraine headaches, early chronic small vessel ischemic change and demyelination. Interpreted by: Moose Zuleta Preliminary Report By: Moose Zuleta Electronically signed By Moose Zuleta Dictated Date: 09/09/2023 4:39:08 PM Prelim Date: 09/09/2023 4:41:57 PM Sign Date: 09/09/2023 4:41:57 PM Ordering Provider: CHANTALE RAMSEY Normal [facility] ([place]) .Urinalysis Microscopic (AO) on 07-25-2023 UA Bacteria 2+ /hpf Abnormal [facility] ([place]) Comment on above: Performed By: #### U AMICAO, UA #### [place] [address] UA Mucous 1+ /hpf Normal [facility] ([place]) Comment on above: Performed By: #### U AMICAO, UA #### [address] [address] UA RBC 0-5 Abnormal None Seen [facility] ([place] Comment on above: Performed By: #### U AMICAO, UA #### [address] [address] UA Squam Epithelial 0-5 Abnormal None Seen [facility] ([place]) Comment on above: Performed By: #### U AMICAO, UA #### [address] [address] UA WBC LOADED Abnormal None Seen [facility] ([place]) Comment on above: Performed By: #### U AMICAO, UA #### [place] [address] LABORATORYOrdered By: Felicia Noe on 07-25-2023 Appearance (U) Slightly Cloudy *ABN* (07/25/23 8:12 AM) Invalid Interpretation Code Clear AO Auto Urine SS Bacteria LM.HPF (Urine sed) [#/Area] 2 /[HPF] Invalid Interpretation Code AO Auto Urine SS Bilirubin Ql (U) Negative (07/25/23 8:12 AM) Normal Negative AO Auto Urine SS Color (U) Yellow (07/25/23 8:12 AM) Normal AO Auto Urine SS Glucose Test strip (U) [Mass/Vol] Negative Normal Negative AO Auto Urine SS Hemoglobin Auto test strip (U) [Mass/Vol] Trace *ABN* (07/25/23 8:12 AM) Invalid Interpretation Code Negative AO Auto Urine SS Ketones Ql (U) Trace mg/dL Invalid Interpretation Code Negative AO Auto Urine SS UA Leuk Est Trace *ABN* (07/25/23 8:12 AM) Invalid Interpretation Code Negative AO Auto Urine SS UA Mucous 1+ /HPF Normal AO Auto Urine SS UA Nitrite Negative (07/25/23 8:12 AM) Normal Negative AO Auto Urine SS UA pH 7.0 (07/25/23 8:12 AM) Normal 5.0 - 8.0 AO Auto Urine SS UA Protein 100 mg/dL Invalid Interpretation Code Negative AO Auto Urine SS UA RBC 0-5 /HPF Invalid Interpretation Code None Seen AO Auto Urine SS UA Spec Grav 1.025 (07/25/23 8:12 AM) Normal 1.015-1.025 AO Auto Urine SS UA Specimen Type Clean Catch (07/25/23 8:12 AM) Normal AO Auto Urine SS UA Squam Epithelial 0-5 /HPF Invalid Interpretation Code None Seen AO Auto Urine SS UA Urobilinogen 0.2 E.U./dL Normal 0.2-1.0 AO Auto Urine SS WBC LM.HPF (Urine sed) [#/Area] LOADED /HPF Invalid Interpretation Code None Seen AO Auto Urine SS No Panel Informationon 07-25 Culture Urine 50,000 - 100,000 cfu /ml Staphylococcus saprophyticus Routine sensitivity testing of urine isolates of S.saprophyticus is not advised because infections respond respond to concentrations achieved in urine of antimicrobial agents commonly used to treat acute, uncomplicated urinary tract infections (e.g., nitrofurantoin, fluoroquinolone, or trimethoprim +/- sulfamethoxazole). [facility] Work Phone: Staphylococcus saprophyticus Staphylococcus saprophyticus [facility] Work Phone: UAon 07-25-2023 Color (U) Yellow Normal [facility] ([place] Comment on above: Performed By: #### U AMICAO, UA #### Daniel [address] [address] Glucose (U) [Mass/Vol] Negative Normal Negative [facility] ([place] Comment on above: Performed By: #### U AMICAO, UA #### Daniel [address] [address] Ketones Ql (U) Trace Abnormal Negative [facility] ([place] Comment on above: Performed By: #### U AMICAO, UA #### Daniel [address] [address] UA Appear Slightly Cloudy Abnormal Clear [facility] ([place] Comment on above: Performed By: #### U AMICAO, UA #### Daniel [address] [address] UA Blood Trace Abnormal Negative [facility] ([place] Comment on above: Performed By: #### U AMICAO, UA #### [address] [address] UA Leuk Est Trace Abnormal Negative [facility] ([place] Comment on above: Performed By: #### U AMICAO, UA #### [address] [address] UA Nitrite Negative Normal Negative [facility] ([place] Comment on above: Performed By: #### U AMICAO, UA #### [address] [address] UA pH 7.0 Normal 5.0 - 8.0 [facility] ([place] Comment on above: Performed By: #### U AMICAO, UA #### [address] [address] UA Protein 100 mg/dL Abnormal Negative [facility] ([place] Comment on above: Performed By: #### U AMICAO, UA #### [address] [address] UA Spec Grav 1.025 Normal 1.015-1.025 [facility] ([place] Comment on above: Performed By: #### U NITO UA #### Daniel [address] [address] UA Specimen Type Clean Catch Normal [facility] ([place] Comment on above: Performed By: #### U NITO UA #### Daniel [place] [id number] UA Urobilinogen 0.2 E.U./dL Normal 0.2-1.0 [facility] ([place] Comment on above: Performed By: #### U NITO UA #### [place] [address] Urobilinogen (U) [Mass/Vol] Negative Normal Negative [facility] ([place] Comment on above: Performed By: #### Henrik BEAUCHAMP UA #### [address] [address] OVAPon 05-19-2023 Ova & Parasite exam See Below Normal [facility] ([place]) Comment on above: Result Comment: OVA AND PARASITE EXAM No Parasites Seen SOURCE: FECES Performed By: [facility] [address] [place] [address] [employer]: Jan Spence IIIIA#: [id number] Performed By: #### T SH, GFR, CMP, FT4 #### [address] [address] .Auto Diffon 04-29-2023 Basophil, Absolute 0.1 10 3/mcL Normal 0.0-0.2 [facility] ([place]) Comment on above: Performed By: #### P BNP, BMP, ANEU, GFR, ADIFF, CBC #### [address] [address] Basophils/100 WBC (Bld) 0.6 % Normal 0.0-2.5 [facility] ([place] Comment on above: Performed By: #### P BNP, BMP, ANEU, GFR, ADIFF, CBC #### [address] [address] Eosinophil, Absolute 0.3 10 3/mcL Normal 0.0-0.4 [facility] ([place] Comment on above: Performed By: #### P BNP, BMP, ANEU, GFR, ADIFF, CBC #### [address] [address] Eosinophils/100 WBC (Bld) 2.7 % Normal 0.0-7.0 [facility] ([place] Comment on above: Performed By: #### P BNP, BMP, ANEU, GFR, ADIFF, CBC #### [address] [address] Lymphocyte, Absolute 2.7 10 3/mcL Normal 0.8-3.9 [facility] ([place] Comment on above: Performed By: #### P BNP, BMP, ANEU, GFR, ADIFF, CBC #### [address] [address] Lymphocytes/100 WBC (Bld) 29.5 % Normal 10.0-50.0 [facility] ([place]) Comment on above: Performed By: #### P BNP, BMP, ANEU, GFR, ADIFF, CBC #### [address] [address] Monocyte, Absolute 0.7 10 3/mcL Normal 0.2-1.0 [facility] ([place] Comment on above: Performed By: #### P BNP, BMP, ANEU, GFR, ADIFF, CBC #### [address] [address] Monocytes/100 WBC (Bld) 7.2 % Normal 1.7-13.0 [facility] ([place] Comment on above: Performed By: #### P BNP, BMP, ANEU, GFR, ADIFF, CBC #### [address] [address] Neutrophils/100 WBC (Bld) 60.0 % Normal 37.0-80.0 [facility] ([place]) Comment on above: Performed By: #### P BNP, BMP, ANEU, GFR, ADIFF, CBC #### [address] [address] .GFRon 04-29-2023 GFR Non- 82 ml/min/1.73sqm Normal [facility] ([place]) Comment on above: Result Comment: GFR Population mean for , Non- Americans Ages 20-29 = 116 mL/min/1.73 sq.m. Ages 30-39 = 107 mL/min/1.73 sq.m. Ages 40-49 = 99 mL/min/1.73 sq.m. Ages 50-59 = 93 mL/min/1.73 sq.m. Ages 60-69 = 85 mL/min/1.73 sq.m. Ages 70+ = 75 mL/min/1.73 sq.m. Chronic Kidney Disease: Less than 60 mL/min/1.73 square meters End Stage Renal Disease: Less than 15 mL/min/1.73 square meters Performed By: #### T SH, GFR, CMP, FT4 #### [address] [address] GFR 100 ml/min/1.73sqm Normal [facility] ([place] Comment on above: Result Comment: GFR Population mean for , Non- Americans Ages 20-29 = 116 mL/min/1.73 sq.m. Ages 30-39 = 107 mL/min/1.73 sq.m. Ages 40-49 = 99 mL/min/1.73 sq.m. Ages 50-59 = 93 mL/min/1.73 sq.m. Ages 60-69 = 85 mL/min/1.73 sq.m. Ages 70+ = 75 mL/min/1.73 sq.m. Chronic Kidney Disease: Less than 60 mL/min/1.73 square meters End Stage Renal Disease: Less than 15 mL/min/1.73 square meters Performed By: #### T SH, GFR, CMP, FT4 #### [address] [address] .NEUABSon 04-29-2023 Neutrophil, Absolute 5.6 10 3/mcL Normal 2.9-6.2 [facility] ([place]) Comment on above: Performed By: #### P BNP, BMP, ANEU, GFR, ADIFF, CBC #### [place] [address] BMPon 04-29-2023 BUN/Creatinine Ratio 25 ratio Normal 7-27 [facility] ([place] Comment on above: Performed By: #### T SH, GFR, CMP, FT4 #### [place] [address] Calcium [Mass/Vol] 9.5 mg/dL Normal 8.4-10.2 [facility] ([place]) Comment on above: Performed By: #### T SH, GFR, CMP, FT4 #### [place] [address] Chloride [Moles/Vol] 103 mmol/L Normal 98-107 [facility] ([place] Comment on above: Performed By: #### T SH, GFR, CMP, FT4 #### [place] [address] CO2 [Moles/Vol] 29 mmol/L Normal 22-29 [facility] ([place] Comment on above: Performed By: #### T SH, GFR, CMP, FT4 #### [place] [address] Creatinine [Mass/Vol] 0.73 mg/dL Normal 0.55-1.02 [facility] ([place] Comment on above: Performed By: #### T SH, GFR, CMP, FT4 #### [place] [address] Electrolyte Balance 9.0 mEq/L Normal 4.0-15.0 [facility] ([place] Comment on above: Performed By: #### T SH, GFR, CMP, FT4 #### [place] [address] Glucose [Mass/Vol] 164 mg/dL High 70-105 [facility] ([place] Comment on above: Performed By: #### T SH, GFR, CMP, FT4 #### [place] [id number] Potassium [Moles/Vol] 4.6 mmol/L Normal 3.5-5.1 [facility] ([place] Comment on above: Performed By: #### T SH, GFR, CMP, FT4 #### [address] [address] Sodium [Moles/Vol] 141 mmol/L Normal 136-145 [facility] ([place] Comment on above: Performed By: #### T SH, GFR, CMP, FT4 #### [address] [address] Urea nitrogen [Mass/Vol] 18 mg/dL Normal 7-18 [facility] ([place] Comment on above: Performed By: #### T SH, GFR, CMP, FT4 #### [place] [id number] CBCon 04-29-2023 Erythrocyte distribution width (RBC) [Ratio] 13.3 % Normal 11.5-14.5 [facility] ([place] Comment on above: Performed By: #### P BNP, BMP, ANEU, GFR, ADIFF, CBC #### [place] [address] Hematocrit (Bld) [Volume fraction] 37.3 % Normal 37.0-47.0 [facility] ([place] Comment on above: Performed By: #### P BNP, BMP, ANEU, GFR, ADIFF, CBC #### [place] [phone] Hgb 12.6 G/dL Normal 12.0-16.0 [facility] ([place] Comment on above: Performed By: #### P BNP, BMP, ANEU, GFR, ADIFF, CBC #### [place] [phone] MCH (RBC) [Entitic mass] 30.1 pg Normal 27.0-31.2 [facility] ([place] Comment on above: Performed By: #### P BNP, BMP, ANEU, GFR, ADIFF, CBC #### [place] [phone] MCHC 33.7 G/dL Normal 33.0-37.0 [facility] ([place] Comment on above: Performed By: #### P BNP, BMP, ANEU, GFR, ADIFF, CBC #### [address] [address] MCV (RBC) [Entitic vol] 89.3 fL Normal 80.0-94.0 [facility] ([place] Comment on above: Performed By: #### P BNP, BMP, ANEU, GFR, ADIFF, CBC #### [address] [address] Platelet 405 10 3/mcL High 130-400 [facility] ([place] Comment on above: Performed By: #### P BNP, BMP, ANEU, GFR, ADIFF, CBC #### [address] [address] Platelet mean volume (Bld) [Entitic vol] 6.8 fL Low 7.4-10.4 [facility] ([place] Comment on above: Performed By: #### P BNP, BMP, ANEU, GFR, ADIFF, CBC #### [address] [address] RBC 4.18 10 6/mcL Low 4.20-5.40 [facility] ([place] Comment on above: Performed By: #### P BNP, BMP, ANEU, GFR, ADIFF, CBC #### [address] [address] WBC 9.3 10 3/mcL Normal 4.6-10.8 [facility] ([place] Comment on above: Performed By: #### P BNP, BMP, ANEU, GFR, ADIFF, CBC #### [address] [address] PBNPon 04-29-2023 Natriuretic peptide B (Bld) [Mass/Vol] 73 pg/mL Normal 0-125 [facility] ([place] Comment on above: Result Comment: NT-p roBNP results of less than 300 pg/mL effectively rules out acute congestive heart failure with 99% negative predictive value. Performed By: #### T SH, GFR, CMP, FT4 #### [place] [phone] [place] [address] LABORATORYOrdered By: Edgardo Oliveros on 02-18-2023 HIV 1 p24 Ab Ql (S) Non-Reactive 2 (02/18/23 4:08 PM) Invalid Interpretation Code Non-Reactiv e AO Rapid Testing SS Comment on above: Interpretive Data: D etection of p24 may be inhibited by biotin in the sample, causing false negative results in acute infection. Therefore do not test samples from patients who are taking biotin. HIV 1 p24 Ab Ql (S) Non-Reactive Invalid Interpretation Code AO Rapid Testing SS HIV 1+2 Ab IA Ql Non-Reactive Invalid Interpretation Code AO Rapid Testing SS HIV 1+2 Ab IA.rapid Ql (Unsp spec) Non-Reactive (02/18/23 4:08 PM) Invalid Interpretation Code Non-Reactiv e AO Rapid Testing SS LABORATORYOrdered By: Beatrice Landeros on 02-18-2023 Reagin Ab RPR Ql (S) Non-Reactive 1 (02/18/23 4:07 PM) Invalid Interpretation Code Non-Reactiv e Castillo Viro/Sero SS Comment on above: Interpretive Data: T he RPR test is a non-treponemal assay useful as an aid in the diagnosis of primary and secondary syphilis. It converts to positive generally within 2 weeks after the appearance of a lesion. This test is also useful for monitoring response to antibiotic therapy. A positive RPR screening test will be followed by the FTA ABS test. False positive RPR tests may occur in 1) patients with underlying autoimmune disorders, 2) elderly patients, 3) , and 4) other conditions with abnormal serum globulins. LABORATORYOrdered By: Edgardo Oliveros on 01-16-2023 Basophil, Absolute 0.0 103/mcL Invalid Interpretation Code 0.0 - 0.2 10^3/mcL AO Workflow SS Basophils/100 WBC (Bld) 0.5 % Invalid Interpretation Code 0.0 - 2.5 % AO Workflow SS Eosinophil, Absolute 0.2 103/mcL Invalid Interpretation Code 0.0 - 0.4 10^3/mcL AO Workflow SS Eosinophils/100 WBC (Bld) 2.3 % Invalid Interpretation Code 0.0 - 7.0 % AO Workflow SS Erythrocyte distribution width (RBC) [Ratio] 13.7 % Invalid Interpretation Code 11.5 - 14.5 % AO Workflow SS ESR Photometric method (Bld) [Velocity] 33 mm/hr Invalid Interpretation Code 0 - 30 mm/hr AO Man Heme SS Hematocrit (Bld) [Volume fraction] 44.2 % Invalid Interpretation Code 37.0 - 47.0 % AO Workflow SS Hemoglobin (Bld) [Mass/Vol] 14.4 G/dL Invalid Interpretation Code 12.0 - 16.0 G/dL AO Workflow SS Lymphocyte, Absolute 3.2 103/mcL Invalid Interpretation Code 0.8 - 3.9 10^3/mcL AO Workflow SS Lymphocytes/100 WBC (Bld) 35.8 % Invalid Interpretation Code 10.0 - 50.0 % AO Workflow SS MCH (RBC) [Entitic mass] 30.6 pg Invalid Interpretation Code 27.0 - 31.2 pg AO Workflow SS MCHC 32.5 G/dL Invalid Interpretation Code 33.0 - 37.0 G/dL AO Workflow SS MCV (RBC) [Entitic vol] 94.2 fL Invalid Interpretation Code 80.0 - 94.0 fL AO Workflow SS Monocyte, Absolute 0.8 103/mcL Invalid Interpretation Code 0.2 - 1.0 10^3/mcL AO Workflow SS Monocytes/100 WBC (Bld) 8.6 % Invalid Interpretation Code 1.7 - 13.0 % AO Workflow SS Neutrophil, Absolute 4.8 103/mcL Invalid Interpretation Code 2.9 - 6.2 10^3/mcL AO Workflow SS Neutrophils/100 WBC (Bld) 52.8 % Invalid Interpretation Code 37.0 - 80.0 % AO Workflow SS Platelet mean volume (Bld) [Entitic vol] 7.3 fL Invalid Interpretation Code 7.4 - 10.4 fL AO Workflow SS Platelets (Bld) [#/Vol] 355 103/mcL Invalid Interpretation Code 130 - 400 10^3/mcL AO Workflow SS RBC (Bld) [#/Vol] 4.69 106/mcL Invalid Interpretation Code 4.20 - 5.40 10^6/mcL AO Workflow SS WBC (Bld) [#/Vol] 9.0 103/mcL Invalid Interpretation Code 4.6 - 10.8 10^3/mcL AO Workflow SS LABORATORYOrdered By: SYSTEM SYSTEM on 01-16-2023 Calcium [Mass/Vol] 9.5 mg/dL Invalid Interpretation Code 8.4 - 10.2 mg/dL AO ADM SS Chloride [Moles/Vol] 101 mmol/L Invalid Interpretation Code 98 - 107 mmol/L AO ADM SS CO2 [Moles/Vol] 25 mmol/L Invalid Interpretation Code 22 - 29 mmol/L AO ADM SS Creatinine [Mass/Vol] 0.76 mg/dL Invalid Interpretation Code 0.55 - 1.02 mg/dL AO ADM SS CRP [Mass/Vol] 0.6 mg/dL Invalid Interpretation Code 0.0 - 0.9 mg/dL AO ADM SS Electrolyte Balance 11.0 mEq/L Invalid Interpretation Code 4.0 - 15.0 mEq/L AO ADM SS GFR/1.73 sq M.predicted among blacks MDRD (S/P/Bld) [Vol rate/Area] 95 ml/min/1.73sqm Invalid Interpretation Code AO Chemistry S GFR/1.73 sq M.predicted among non-blacks MDRD (S/P/Bld) [Vol rate/Area] 79 ml/min/1.73sqm Invalid Interpretation Code AO Chemistry S Glucose [Mass/Vol] 148 mg/dL Invalid Interpretation Code 70 - 105 mg/dL AO ADM SS Magnesium [Mass/Vol] 1.9 mg/dL Invalid Interpretation Code 1.8 - 2.4 mg/dL AO ADM SS Potassium [Moles/Vol] 3.8 mmol/L Invalid Interpretation Code 3.5 - 5.1 mmol/L AO ADM SS Sodium [Moles/Vol] 137 mmol/L Invalid Interpretation Code 136 - 145 mmol/L AO ADM SS Urea nitrogen [Mass/Vol] 17 mg/dL Invalid Interpretation Code 7 - 18 mg/dL AO ADM SS Urea nitrogen/Creatinine [Mass ratio] 22 ratio Invalid Interpretation Code 7 - 27 ratio AO ADM SS Uric Acid Lvl 4.1 mg/dL Invalid Interpretation Code 2.6 - 6.2 mg/dL AO ADM SS LABORATORYOrdered By: SYSTEM SYSTEM on 01-03-2023 Calcium [Mass/Vol] 9.4 mg/dL Invalid Interpretation Code 8.4 - 10.2 mg/dL AO ADM SS Chloride [Moles/Vol] 102 mmol/L Invalid Interpretation Code 98 - 107 mmol/L AO ADM SS CO2 [Moles/Vol] 29 mmol/L Invalid Interpretation Code 22 - 29 mmol/L AO ADM SS Creatinine [Mass/Vol] 0.83 mg/dL Invalid Interpretation Code 0.55 - 1.02 mg/dL AO ADM SS Electrolyte Balance 8.0 mEq/L Invalid Interpretation Code 4.0 - 15.0 mEq/L AO ADM SS GFR/1.73 sq M.predicted among blacks MDRD (S/P/Bld) [Vol rate/Area] 86 ml/min/1.73sqm Invalid Interpretation Code AO Chemistry S GFR/1.73 sq M.predicted among non-blacks MDRD (S/P/Bld) [Vol rate/Area] 71 ml/min/1.73sqm Invalid Interpretation Code AO Chemistry S Glucose [Mass/Vol] 184 mg/dL Invalid Interpretation Code 70 - 105 mg/dL AO ADM SS Potassium [Moles/Vol] 4.1 mmol/L Invalid Interpretation Code 3.5 - 5.1 mmol/L AO ADM SS Sodium [Moles/Vol] 139 mmol/L Invalid Interpretation Code 136 - 145 mmol/L AO ADM SS Urea nitrogen [Mass/Vol] 13 mg/dL Invalid Interpretation Code 7 - 18 mg/dL AO ADM SS Urea nitrogen/Creatinine [Mass ratio] 16 ratio Invalid Interpretation Code 7 - 27 ratio AO ADM SS LABORATORYOrdered By: SYSTEM SYSTEM on 11-06-2022 Albumin BCP dye [Mass/Vol] 3.4 G/dL Invalid Interpretation Code 3.5 - 5.0 G/dL AO ADM SS Albumin/Globulin [Mass ratio] 1.0 {ratio} Invalid Interpretation Code 1.1 - 2.5 ratio AO ADM SS ALP [Catalytic activity/Vol] 104 U/L Invalid Interpretation Code 40 - 135 U/L AO ADM SS ALT With P-5'-P [Catalytic activity/Vol] 48 U/L Invalid Interpretation Code 14 - 59 U/L AO ADM SS AST With P-5'-P [Catalytic activity/Vol] 37 U/L Invalid Interpretation Code 10 - 40 U/L AO ADM SS Bilirubin [Mass/Vol] 0.2 mg/dL Invalid Interpretation Code 0.2 - 1.0 mg/dL AO ADM SS Calcium [Mass/Vol] 9.9 mg/dL Invalid Interpretation Code 8.4 - 10.2 mg/dL AO ADM SS Chloride [Moles/Vol] 105 mmol/L Invalid Interpretation Code 98 - 107 mmol/L AO ADM SS CO2 [Moles/Vol] 29 mmol/L Invalid Interpretation Code 22 - 29 mmol/L AO ADM SS Creatinine [Mass/Vol] 0.68 mg/dL Invalid Interpretation Code 0.55 - 1.02 mg/dL AO ADM SS Electrolyte Balance 8.0 mEq/L Invalid Interpretation Code 4.0 - 15.0 mEq/L AO ADM SS GFR 108 ml/min/1.73sqm Invalid Interpretation Code AO Chemistry S GFR Non- 90 ml/min/1.73sqm Invalid Interpretation Code AO Chemistry S Globulin 3.4 G/dL Invalid Interpretation Code AO ADM SS Glucose [Mass/Vol] 169 mg/dL Invalid Interpretation Code 70 - 105 mg/dL AO ADM SS Potassium [Moles/Vol] 4.8 mmol/L Invalid Interpretation Code 3.5 - 5.1 mmol/L AO ADM SS Protein [Mass/Vol] 6.8 G/dL Invalid Interpretation Code 6.4 - 8.2 G/dL AO ADM SS Sodium [Moles/Vol] 142 mmol/L Invalid Interpretation Code 136 - 145 mmol/L AO ADM SS Urea nitrogen [Mass/Vol] 12 mg/dL Invalid Interpretation Code 7 - 18 mg/dL AO ADM SS Urea nitrogen/Creatinine [Mass ratio] 18 ratio Invalid Interpretation Code 7 - 27 ratio AO ADM SS LABORATORYOrdered By: Raysa Nesbitt on 11-06-2022 Basophil, Absolute 0.0 103/mcL Invalid Interpretation Code 0.0 - 0.2 10^3/mcL AO Workflow SS Basophils/100 WBC (Bld) 0.4 % Invalid Interpretation Code 0.0 - 2.5 % AO Workflow SS Eosinophil, Absolute 0.3 103/mcL Invalid Interpretation Code 0.0 - 0.4 10^3/mcL AO Workflow SS Eosinophils/100 WBC (Bld) 4.2 % Invalid Interpretation Code 0.0 - 7.0 % AO Workflow SS Erythrocyte distribution width (RBC) [Ratio] 12.9 % Invalid Interpretation Code 11.5 - 14.5 % AO Workflow SS ESR Photometric method (Bld) [Velocity] 17 mm/hr Invalid Interpretation Code 0 - 30 mm/hr AO Man Heme SS Hematocrit (Bld) [Volume fraction] 40.0 % Invalid Interpretation Code 37.0 - 47.0 % AO Workflow SS Hemoglobin (Bld) [Mass/Vol] 13.4 G/dL Invalid Interpretation Code 12.0 - 16.0 G/dL AO Workflow SS Lymphocyte, Absolute 2.8 103/mcL Invalid Interpretation Code 0.8 - 3.9 10^3/mcL AO Workflow SS Lymphocytes/100 WBC (Bld) 35.4 % Invalid Interpretation Code 10.0 - 50.0 % AO Workflow SS MCH (RBC) [Entitic mass] 31.4 pg Invalid Interpretation Code 27.0 - 31.2 pg AO Workflow SS MCHC 33.5 G/dL Invalid Interpretation Code 33.0 - 37.0 G/dL AO Workflow SS MCV (RBC) [Entitic vol] 93.7 fL Invalid Interpretation Code 80.0 - 94.0 fL AO Workflow SS Monocyte, Absolute 0.6 103/mcL Invalid Interpretation Code 0.2 - 1.0 10^3/mcL AO Workflow SS Monocytes/100 WBC (Bld) 8.3 % Invalid Interpretation Code 1.7 - 13.0 % AO Workflow SS Neutrophil, Absolute 4.0 103/mcL Invalid Interpretation Code 2.9 - 6.2 10^3/mcL AO Workflow SS Neutrophils/100 WBC (Bld) 51.4 % Invalid Interpretation Code 37.0 - 80.0 % AO Workflow SS Platelet mean volume (Bld) [Entitic vol] 7.0 fL Invalid Interpretation Code 7.4 - 10.4 fL AO Workflow SS Platelets (Bld) [#/Vol] 431 103/mcL Invalid Interpretation Code 130 - 400 10^3/mcL AO Workflow SS RBC (Bld) [#/Vol] 4.27 106/mcL Invalid Interpretation Code 4.20 - 5.40 10^6/mcL AO Workflow SS WBC (Bld) [#/Vol] 7.9 103/mcL Invalid Interpretation Code 4.6 - 10.8 10^3/mcL AO Workflow SS CBC panel Auto (Bld)on 11-01 Erythrocyte distribution width (RBC) [Ratio] 13.1 % Normal 11.5-15.0 [facility] Comment on above: Order Comment: Speci men Type: BLOOD SPECIMENOrdering Facility: [facility] Address: [address] [place] [id number] Performed By: #### 5 8410-2 ####[facility] LABORATORYCLIA [id number] [place] [address] [place] Hematocrit (Bld) [Volume fraction] 34.4 % Low 36.0-46.0 [facility] Comment on above: Order Comment: Speci men Type: BLOOD SPECIMENOrdering Facility: [facility] Address: [address] [address] Performed By: #### 5 8410-2 ####[facility]ORATORYCLIA [id number] [place] [address] [place] Hemoglobin (Bld) [Mass/Vol] 11.1 g/dL Low 11.5-15.5 [facility] Comment on above: Order Comment: Speci men Type: BLOOD SPECIMENOrdering Facility: [facility] Address: [address] [address] Performed By: #### 5 8410-2 ####[facility]ORATORYCLIA [id number] [place] [address] [place] MCH (RBC) [Entitic mass] 31.3 pg Normal 26.0-34.0 [facility] Comment on above: Order Comment: Speci men Type: BLOOD SPECIMENOrdering Facility: [facility] Address: [address] [address] Performed By: #### 5 8410-2 ####[facility]ORATORYCLIA [id number] [address] [place] MCHC (RBC) [Mass/Vol] 32.3 g/dL Normal 30.5-36.0 [facility] Comment on above: Order Comment: Speci men Type: BLOOD SPECIMENOrdering Facility: [facility] Address: [address] [address] Performed By: #### 5 8410-2 ####[facility]ORATORYCLIA [id number] [address] [place] MCV (RBC) [Entitic vol] 96.9 fL Normal 80.0-100.0 [facility] Comment on above: Order Comment: Speci men Type: BLOOD SPECIMENOrdering Facility: [facility] Address: [address] [address] Performed By: #### 5 8410-2 ####[facility]ORATORYCLIA [id number] [place] [address] [place] Nucleated RBC (Bld) [#/Vol] 10*3/uL Normal <0.01 [facility] Comment on above: Order Comment: Speci men Type: BLOOD SPECIMENOrdering Facility: [facility] Address: [address] [place] [address] Performed By: #### 5 8410-2 ####[facility]ORATORYCLIA [id number] [place] [address] [place] Platelet mean volume (Bld) [Entitic vol] 8.9 fL Low 9.0-12.7 [facility] Comment on above: Order Comment: Speci men Type: BLOOD SPECIMENOrdering Facility: [facility] Address: [address] [place] [address] Performed By: #### 5 8410-2 ####[facility]ORATORYCLIA [id number] [place] [address] [place] Platelets (Bld) [#/Vol] 248 10*3/uL Normal 150-400 [facility] Comment on above: Order Comment: Speci men Type: BLOOD SPECIMENOrdering Facility: [facility]. [facility] Address: [address] [place] [address] Performed By: #### 5 8410-2 ####[facility] LABORATORYCLIA [id number] [place] [address] [place] RBC (Bld) [#/Vol] 3.55 10*6/uL Low 3.90-5.20 [facility] Comment on above: Order Comment: Speci men Type: BLOOD SPECIMENOrdering Facility: [facility] Address: [address] [place] [address] Performed By: #### 5 8410-2 ####[facility] LABORATORYCLIA [id number] [place] [address] [place] WBC (Bld) [#/Vol] 6.35 10*3/uL Normal 3.70-11.00 [facility] Comment on above: Order Comment: Speci men Type: BLOOD SPECIMENOrdering Facility: [facility] Address: [place] [place] [id number] Performed By: #### 5 8410-2 ####[facility] LABORATORYCLIA [id number] [place] [id number] [place] [facility] CNDSon 11-01-2022 CNDS HNO ID: [id number] Author: Sloan Mujica MD Service: General Internal Medicine Author Type: Physician Type: Discharge Summary Filed: 11/05/2022 10:14 AM Note Text: DISCHARGE SUMMARY PATIENT NAME: Chrissy Lay ADMISSION DATE: 10/31/2022 DISCHARGE DATE: 11/01/22 ATTENDING PHYSICIAN: Sloan Mujica MD Code Status: Not on file Highest Readmission Risk Score: 20 The 30 day readmissions risk score is derived from an internally validated risk model which evaluates patient level characteristics, utilization history, medication orders and lab results up until the day of discharge. Patients with a score of 40 or above are considered highest risk for readmission. Specific patient level drivers will be listed at the bottom of the summary. The 30 day readmissions risk score is derived from an internally validated risk model which evaluates patient level characteristics, utilization history, medication orders and lab results up until the day of discharge. Patients with a score of 40 or above are considered highest risk for readmission. Specific patient level drivers will be listed at the bottom of the summary. The Reason I was in the Hospital/Main Diagnosis: Diagnosis: Active Hospital Problems Nicotine use disorder, F17.2 Resolved Hospital Problems Hyperglycemia Summary of What Happened When in the Hospital: You were admitted for . You were admitted for high blood sugars, reports of passing out (syncope) or near passing out along with some Nausea and vomiting. Your sugars stabilized on just jardiance, you bp meds wee discontinued. You hd a MARIAM and an echo both were well within normal limits. Ou will wear the zio patch and folow up with cardiology as directed. We also recommend follow up with your PCP within the next 7 days. We discussed the importance of smoking cessation, and limiting marijuana and lowering alcohol consumption. Transitions of Care Critical Issues: Medicaiton changes LABS AND PROCEDURES PENDING AT DISCHARGE: No pending results. Sepsis Ruled Out Operations During Hospitalization: Additional Provider to Provider Information: Principal Problem (Resolved): Hyperglycemia POA: Yes Active Problems: Nicotine use disorder, F17.2 POA: Yes Consulting Teams During Hospitalization: Treatment Team: Attending Provider: Sloan Mujica MD Consulting: Alexandrea Holliday MD Additional Health Information I Need to Know After I Leave the Hospital: FOLLOW-UP APPOINTMENTS ALREADY SCHEDULED WITH A [facility] PROVIDER No future appointments. DISCHARGE MEDICATION: Current Discharge Medication List START taking these medications acetaminophen (TYLENOL) 650 mg Take 650 mg by mouth every 6 hours as needed for fever (specify) or pain. CONTINUE these medications which have CHANGED cyclobenzaprine (FLEXERIL) 10 mg Take 10 mg by mouth three times daily as needed. CONTINUE these medications which have NOT CHANGED diphenhydrAMINE (BENADRYL) 25 mg Take 25 mg by mouth one time a week. class=HTML_HHS> Pt stats she takes when she takes pain medication d/t itiching ibuprofen (MOTRIN) 800 mg Take 800 mg by mouth as needed. DULoxetine (CYMBALTA) 120 mg Take 120 mg by mouth once daily. Cholecalciferol (Vitamin D3) 10 mcg Take 10 mcg by mouth once daily. empagliflozin (JARDIANCE ORAL) 10 mg Take 10 mg by mouth once daily. solifenacin 10 mg Take 10 mg by mouth once daily. Qty: 60 tablet Refills: 5 PREMARIN 1 g Use 1 g vaginally two times a week. class=HTML_HHS> Use 1g vaginally every night for two weeks and then twice weekly after that Qty: 30 g Refills: 4 ezetimibe (ZETIA) 10 mg Take 10 mg by mouth once daily. LORazepam (ATIVAN) 1 mg 1 mg. omeprazole (PRILOSEC) 20 mg capsule TAKE 1 CAPSULE BY MOUTH TWICE DAILY 1/2 HOUR BEFORE A MEAL Qty: 60 capsule Refills: 0 Associated Diagnoses:GERD without esophagitis albuterol HFA (PROVENTIL HFA, VENTOLIN HFA) 2 Puffs Inhale 2 Puffs as instructed every 4 hours as needed. Qty: 1 Inhaler Refills: 0 Associated Diagnoses:Sinobronchitis blood sugar diagnostic (ACCU-CHEK GENNY) test strip testing up to three times daily Qty: 100 Strip Refills: 11 STOP taking these medications mirtazapine (REMERON) 15 mg Comments: Reason for Stopping: glimepiride (AMARYL) 4 mg Comments: Reason for Stopping: oxyCODONE-acetaminophen (PERCOCET) 1 tablet Comments: Reason for Stopping: ondansetron (ZOFRAN) 4 mg tablet Comments: Reason for Stopping: lisinopril-hydrochlorothiazi de (PRINZIDE, ZESTORETIC) 20-25 mg per tablet Comments: Reason for Stopping: Discharge Physical Exam: VITAL SIGNS: BP 112/69 Pulse 74 Temp 36.6 ?C (97.9 ?F) (Oral) Resp 20 Ht 172.7 cm (5' 8) Wt 86.6 kg (190 lb 14.7 oz) LMP 04/25/2015 (Exact Date) SpO2 99% BMI 29.03 kg/m? GENERAL: Alert, no distress, cooperative SKIN: Skin color, texture, turgor normal. No rashes or lesions. OROPHARYNX: M (more content not included)... Normal [facility] Comprehensive metabolic 2000 panelon 11-01-2022 Albumin [Mass/Vol] 3.0 g/dL Low 3.9-4.9 [facility] Comment on above: Order Comment: Speci men Type: BLOOD SPECIMENOrdering Facility: [facility] Address: [address] [place] [address] Performed By: #### 2 4323-8 ####Designer MaterialCREST LABORATORYCLIA [id number] [place] [address] [place] ALP [Catalytic activity/Vol] 73 U/L Normal 34-123 [facility] Comment on above: Order Comment: Speci men Type: BLOOD SPECIMENOrdering Facility: [facility] Address: [address] [address] Performed By: #### 2 4323-8 ####[facility] LABORATORYCLIA [id number] [place] [address] [place] ALT [Catalytic activity/Vol] 33 U/L Normal 7-38 [facility] Comment on above: Order Comment: Speci men Type: BLOOD SPECIMENOrdering Facility: [facility] Address: [address] [address] Performed By: #### 2 4323-8 ####[facility] LABORATORYCLIA [id number] [place] [address] [place] Anion gap [Moles/Vol] 12 mmol/L Normal 9-18 [facility] Comment on above: Order Comment: Speci men Type: BLOOD SPECIMENOrdering Facility: [facility] Address: [address] [address] Performed By: #### 2 4323-8 ####[facility]ORATORYCLIA [id number] [place] [address] [place] AST [Catalytic activity/Vol] 33 U/L Normal 13-35 [facility] Comment on above: Order Comment: Speci men Type: BLOOD SPECIMENOrdering Facility: [facility] Address: [address] [place] [address] Performed By: #### 2 4323-8 ####[facility]ORATORYCLIA [id number] [place] [address] [place] Bilirubin [Mass/Vol] 0.2 mg/dL Normal 0.2-1.3 [facility] Comment on above: Order Comment: Speci men Type: BLOOD SPECIMENOrdering Facility: [facility] Address: [address] [place] [address] Performed By: #### 2 4323-8 ####[facility] LABORATORYCLIA [id number] [place] [address] [place] Calcium [Mass/Vol] 8.3 mg/dL Low 8.5-10.2 [facility] Comment on above: Order Comment: Speci men Type: BLOOD SPECIMENOrdering Facility: [facility] Address: [address] [address] Performed By: #### 2 4323-8 ####[facility] LABORATORYCLIA [id number] [place] [address] [place] Chloride [Moles/Vol] 110 mmol/L High 97-105 [facility] Comment on above: Order Comment: Speci men Type: BLOOD SPECIMENOrdering Facility: [facility] Address: [address] [address] Performed By: #### 2 4323-8 ####[facility] LABORATORYCLIA [id number] [place] [address] [place] CO2 [Moles/Vol] 19 mmol/L Low 22-30 [facility] Comment on above: Order Comment: Speci men Type: BLOOD SPECIMENOrdering Facility: [facility] Address: [address] [place] [address] Performed By: #### 2 4323-8 ####[facility]ORATORYCLIA [id number] [place] [address] [place] Creatinine [Mass/Vol] 0.83 mg/dL Normal 0.58-0.96 [facility] Comment on above: Order Comment: Josei men Type: BLOOD SPECIMENOrdering Facility: [facility] Address: [address] [place] [address] Performed By: #### 2 4323-8 ####[facility] LABORATORYCLIA [id number] [address] [place] ESTIMATED GLOMERULAR FILTRATION RATE 83 mL/min/1.73m??? Normal >=60 [facility] Comment on above: Order Comment: Josei men Type: BLOOD SPECIMENOrdering Facility: [facility] Address: [address] [place] [address] Result Comment: Mei mated Glomerular Filtration Rate (eGFR) is calculated using the 2020 CKD-EPI creatinine equation. This equation utilizes serum creatinine, sex, and age as parameters. The creatinine assay has traceable calibration to isotope dilution-mass spectrometry. Refer to KDIGO guidelines for clinical interpretation. In patients with unstable renal function, e.g. those with acute kidney injury, the eGFR may not accurately reflect actual GFR. Performed By: #### 2 4323-8 ####[facility] LABORATORYCLIA [id number] [place] [address] [place] Glucose [Mass/Vol] 117 mg/dL High 74-99 [facility] Comment on above: Order Comment: Josei men Type: BLOOD SPECIMENOrdering Facility: [facility] Address: [address] [place] [address] Result Comment: The [place] Diabetes Association (ADA) provides guidance for cutoff values for fasting glucose and random glucose. The ADA defines fasting as no caloric intake for at least 8 hours. Fasting plasma glucose results between 100 to 125 mg/dL indicate increased risk for diabetes (prediabetes). Fasting plasma glucose results greater than or equal to 126 mg/dL meet the criteria for diagnosis of diabetes. In the absence of unequivocal hyperglycemia, results should be confirmed by repeat testing. In a patient with classic symptoms of hyperglycemia or hyperglycemic crisis, random plasma glucose results greater than or equal to 200 mg/dL meet the criteria for diagnosis of diabetes. Reference: Standards of Medical Care in Diabetes 2016, [place] Diabetes Association. Diabetes Care. 2016.39(Suppl 1). Performed By: #### 2 4323-8 ####[facility] LABORATORYCLIA [id number] [place] [address] [place] Potassium [Moles/Vol] 3.3 mmol/L Low 3.7-5.1 [facility] Comment on above: Order Comment: Speci men Type: BLOOD SPECIMENOrdering Facility: [facility] Address: [address] [address] Performed By: #### 2 4323-8 ####[facility] LABORATORYCLIA [id number] [place] [address] [place] Protein [Mass/Vol] 5.4 g/dL Low 6.3-8.0 [facility] Comment on above: Order Comment: Speci men Type: BLOOD SPECIMENOrdering Facility: [facility] Address: [address] [address] Performed By: #### 2 4323-8 ####[facility] LABORATORYCLIA [id number] [place] [address] [place] Sodium [Moles/Vol] 141 mmol/L Normal 136-144 [facility] Comment on above: Order Comment: Speci men Type: BLOOD SPECIMENOrdering Facility: [facility] Address: [address] [address] Performed By: #### 2 4323-8 ####[facility] LABORATORYCLIA [id number] [address] [place] Urea nitrogen [Mass/Vol] 11 mg/dL Normal 7-21 [facility] Comment on above: Order Comment: Speci men Type: BLOOD SPECIMENOrdering Facility: [facility] Address: [address] [place] [address] Performed By: #### 2 4323-8 ####[facility] LABORATORYCLIA [id number] [place] [address] [place] POTASSIUM BLDon 11-01-2022 Potassium [Moles/Vol] 3.8 mmol/L Normal 3.7-5.1 [facility] Comment on above: Order Comment: Speci men Type: BLOOD SPECIMENOrdering Facility: [facility] Address: [address] [place] [address] Performed By: #### K 1 ####[facility] LABORATORYCLIA [id number] [address] OF [place] ALLIED HEALTHon 10-31-2022 ALLIED HEALTH HNO ID: [id number] Author: Glen Downs Service: ? Author Type: Melt Helper Type: Allied Health Filed: 10/31/2022 6:17 AM Note Text: Radiology Service Progress Note PATIENT NAME: Chrissy Lay DATE OF SERVICE: October 31, 2022 TIME: 6:17 AM PATIENT IDENTITY VERIFICATION COMPLETED USING TWO (2) IDENTIFIERS: Name and Date of confirmed by patient verbally and Name and Date of confirmed by identification band. FALL SCREENING: Has the patient had 2 falls in the last year or 1 fall with injury or currently using an Ambulatory Assistive Device (Walker, Cane, Wheelchair, Crutches, etc.)? Inpatient: Screened on floor PATIENT GENDER DATA: Female. status: : No status: NO. PATIENT RELEVANT IMPLANT DATA REVIEWED: Not Applicable RADIOLOGY DEPARTMENT: CT; Exam(s) Completed: Abdomen/Pelvis PERIPHERAL IV DATA: Not applicable SIGNED BY: Glen Downs October 31, 2022 6:17 AM Normal [facility] CASE MGT INIT ASSESon 2022 CASE MGT INIT [facility] HNO ID: [id number] Author: Shama Carnes RN Service: ? Author Type: Registered Nurse Type: Care Mgt Initial Assessment Filed: 10/31/2022 3:31 PM Note Text: CARE MANAGEMENT: ASSESSMENT AND DISCHARGE PLAN SERVICE DATE: October 31, 2022 SERVICE TIME: 3:23 PM PRIMARY CARE PHYSICIAN: CHANTALE RAMSEY APRN.DESIGN VERIFICATION ENGINEER Phone: None Primary Contact: Extended Emergency Contact Information Primary Emergency Contact: Stanislav Lay Address: [address] [place] [id number] Mobile Relation: Ex Spouse ADMISSION STATUS: Inpatient Insurance Provider: [facility] MEDICAID NEEDS PRIOR TO DISCHARGE POTENTIAL TRANSITION PLANS ADVANCE DIRECTIVES ASSESSMENT AND PLAN: Assessment completed with: pt Prior Level of Function/Ambulating/Bathing/ Dressing/Driving/Medications /employment: independent with I/ADLs, drives, meds, employed. Living Situation: home alone, mobile home. 6-steps in. Support System/Next of Kin/HCPOA/Guardian: support system is 4 children, pt states they're in their own little worlds. Estranged from mother. Durable Medical Equipment/O2/Nebulizer: None Active Services in Community/Dialysis/Home Care/Outpatient Therapy/Aides in Home: None Has patient been to SNF in last 30 days?: No PCP visit within the last 12 months: Dr. Ramsey, 10/15 Able to Afford Food and Medications: Yes, no concerns expressed. Transportation at Discharge: neighbor Anticipated Medical Plan of Care: admitted for hyperglycemia. IV abxs, BC pending. Cards consulted-syncopal episodes Patient/Caregivers Transitional Care Goals AND Anticipated Discharge Plan Discussion: pt's goal is to return home, denies any skilled needs. Cm to follow. SIGNATURE: Shama Carnes RN PATIENT NAME: Chrissy Lay DATE: October 31, 2022 TIME: 3:23 PM CONTACT #: [phone] Normal [facility] CBC panel Auto (Bld)on 10-31 Erythrocyte distribution width (RBC) [Ratio] 12.7 % Normal 11.5-15.0 [facility] Comment on above: Order Comment: Speci men Type: BLOOD SPECIMEN [facility] Address: [address] [address] Performed By: #### 5 8410-2 #### [facility] CLIA [id number] [address] [place] [address] [place] Hematocrit (Bld) [Volume fraction] 36.9 % Normal 36.0-46.0 [facility] Comment on above: Order Comment: Speci men Type: BLOOD SPECIMEN [facility] Address: [address] [address] Performed By: #### 5 8410-2 #### [facility] [place] [id number] [address] [place] [address] [place] Hemoglobin (Bld) [Mass/Vol] 12.4 g/dL Normal 11.5-15.5 [facility] Comment on above: Order Comment: Speci men Type: BLOOD SPECIMEN [facility] Address: [address] [address] Performed By: #### 5 8410-2 #### [facility] [place] [id number] [address] [place] [address] [place] MCH (RBC) [Entitic mass] 31.9 pg Normal 26.0-34.0 [facility] Comment on above: Order Comment: Speci men Type: BLOOD SPECIMEN [facility] Address: [address] [address] Performed By: #### 5 8410-2 #### [facility] CLIA [id number] [address] [place] [address] [place] MCHC (RBC) [Mass/Vol] 33.6 g/dL Normal 30.5-36.0 [facility] Comment on above: Order Comment: Speci men Type: BLOOD SPECIMEN [facility] Address: [address] [place] [address] Performed By: #### 5 8410-2 #### [facility] CLIA [id number] [address] [place] [address] [place] MCV (RBC) [Entitic vol] 94.9 fL Normal 80.0-100.0 [facility] Comment on above: Order Comment: Speci men Type: BLOOD SPECIMEN [facility] Address: [address] [address] Performed By: #### 5 8410-2 #### [facility] CLIA [id number] [address] [place] [address] [place] Nucleated RBC (Bld) [#/Vol] 10*3/uL Normal <0.01 [facility] Comment on above: Order Comment: Speci men Type: BLOOD SPECIMEN [facility] Address: [address] [address] Performed By: #### 5 8410-2 #### [facility] CLIA [id number] [address] [place] [address] [place] Platelet mean volume (Bld) [Entitic vol] 9.0 fL Normal 9.0-12.7 [facility] Comment on above: Order Comment: Speci men Type: BLOOD SPECIMEN [facility] Address: [address] Performed By: #### 5 8410-2 #### [facility] CLIA [id number] [address] [place] [address] [place] Platelets (Bld) [#/Vol] 289 10*3/uL Normal 150-400 [facility] Comment on above: Order Comment: Speci men Type: BLOOD SPECIMEN [facility] Address: [address] Performed By: #### 5 8410-2 #### [facility] CLIA [id number] [address] [place] [address] [place] RBC (Bld) [#/Vol] 3.89 10*6/uL Low 3.90-5.20 [facility] Comment on above: Order Comment: Speci men Type: BLOOD SPECIMEN [facility] Address: [address] Performed By: #### 5 8410-2 #### [facility] CLIA [id number] [address] [id number] [place] WBC (Bld) [#/Vol] 7.66 10*3/uL Normal 3.70-11.00 [facility] Comment on above: Order Comment: Speci men Type: BLOOD SPECIMEN [facility] Address: [facility] [place] [address] Performed By: #### 5 8410-2 #### [facility] CLIA [id number] [address] [id number] [facility] CONSULTon [facility]-31-2022 CONSULT HNO ID: [id number] Author: Dana Marvin APRN.DESIGN VERIFICATION ENGINEER Service: Electrophysiology Author Type: Nurse Practitioner Type: Consults Filed: 10/31/2022 4:24 PM Note Text: Attestation signed by Alexandrea Holliday MD at 11/01/2022 8:26 AM Attending Note [facility] STAFF PHYSICIAN NOTE OF PERSONAL INVOLVEMENT IN CARE IMPRESSION: Patient is a 57 year old female with recurrent nausea, vomiting, dizziness, presyncope and syncope. The first episode sounded fairly unheralded (sitting on couch, stood up, sudden onset) though could have been orthostatic. The remaining episodes all seem to be precipitated by nausea and vomiting, which is suggestive vasovagal syncope. It's not clear what is driving her nausea and vomiting (new diabetes medication; recently switched from Trulicity to Jardiance?, regular use of marijuana gummies?) but this is likely driving the presyncope. PLAN: Given fairly frequent recurrence I think an event monitor is reasonable to rule out a dysrhythmia; we will arrange prior to discharge. I have reviewed the documentation obtained and documented by the Nurse Practitioner and I have personally performed the substantive portion of the visit which includes the medical decision making. I have discussed the case and management of the patient's care. (Inpatient): I personally spent 30 total minutes total time in the management and care of this patient. STAFF PHYSICIAN: Alexandrea Holliday MD DATE OF SERVICE: November 01, 2022 TIME OF SERVICE: 8:20 AM [facility]IC[facility] CONSULT NOTE [facility] Chrissy Lay [id number] PRIMARY SERVICE: General Internal Medicine - Dr. Mujica CONSULTING SERVICE: EP DATE OF ADMISSION: 10/31/2022 DATE OF CONSULT: 10/31/2022 REASON FOR CONSULT Heart murmur, syncopal episodes HISTORY OF PRESENT ILLNESS Chrissy Lay is a 57 year old female who presented to the ED with c/o of n/v, hyperglycemia, and near syncope. Per pt, she was at work yesterday when she experienced N/V, near syncope, and BGL >400. EMS was called and she was taken to [place] ED and subsequently transferred to [place] for further management. Pt states having similar symptoms over the last week but it was worse yesterday. Asked regarding palpitations yesterday, she states she felt palpations describing it as her whole body pulsating. She does also note having decreased PO intake related to N/V over the past week. Pt states that she had a syncopal episode a month and a half ago. It was associated with positional change, unable to recall extend of LOC, unwitnessed. And over the last week, she has been commuting daily between [place] and [place] for her job. She notes having at least 1 episode feeling in chest bubble and when up and hit my vision per day while driving. Most episodes are associated with tunnel vision but she had one where she lost complete vision and regained within seconds. She has immediate associated symptoms of vomiting and diaphoresis lasting 15 to 20 minutes along with lightheaded and dizzy. These symptoms started at home within the last few weeks. She also notes lightheadedness and dizziness with positional change, BPs at home have been ~150s/mid 50s. She denies Her SBP every going below the ~120 mm Hg sam. Over the last month, she has also been having DEAN and baseline requiring 2 pillows at night. Pt attests to having asthma but denies COPD as noted on chart review. Noting chronic diaphoresis over the last 4 years. Pt denies experiencing CP/anginal pain, SOB at rest, PND, or edema. Pt does state she drink 2 good sized drinks at night and also uses marijuana. Denies further drug use, UTox preliminary positive for oxycodone. On examination, pt appears in no acute distress, on RA, resting in bed. Pt with no c/o symptoms suggestive of cardiac etiology on examination. HS YUE 9 UTox preliminary positive of cannabinoids and oxycodone PAST MEDICAL HISTORY PAST MEDICAL HISTORY Diagnosis Date Asymptomatic varicose [...] Ankle fracture Unspecified hypothyroidism off of meds. PAST SURGICAL HISTORY Procedure Laterality Date ADDTL NECK SPINE FUSION 09/2020 c3-6 APPENDECTOMY 1996 BIOPSY BREAST OPEN INCISIONAL 1995 Bx of breast, incisional - ri (more content not included)... Normal [facility] CT ABD/PEL WO IVCONon 2022 CT ABD/PEL WO IVCON * * *Final Report* * * DATE OF EXAM: Oct 31 2022 6:16AM [facility] 0531 - CT ABD/PEL WO IVCON / PROCEDURE REASON: Abdominal pain, acute, nonlocalized * * * * Physician Interpretation * * * * RESULT: EXAMINATION: CT ABDOMEN AND PELVIS WITHOUT IV CONTRAST CLINICAL HISTORY: Abdominal pain TECHNIQUE: Non-IV contrast imaging of the abdomen and pelvis was performed using standard technique, scanning from just above the dome of the diaphragm to the symphysis pubis. Unenhanced imaging is limited for the evaluation of some intra-abdominal and pelvic pathology. Coronal and sagittal reconstructed images generated. MQ: CTAPWO_3 Contrast: IV: None Oral: None CT Radiation dose: Integrated Dose-length product (DLP) for this visit = 788 mGy*cm. CT Dose Reduction Employed: Automated exposure control(AEC) and iterative recon COMPARISON: None available. RESULT: Abdomen / Pelvis: Unenhanced Liver: Decreased in attenuation. Biliary: S/p cholecystectomy. Unenhanced Spleen: No splenomegaly. Unenhanced Pancreas: Unremarkable. Unenhanced Adrenals: No mass. Unenhanced Kidneys: No renal or ureteral stones. No hydronephrosis. GI Tract: No bowel dilation. Appendix not visualized and likely surgically absent with surgical clips in the right lower quadrant. Lymph Nodes: No lymphadenopathy identified. Mesentery/peritoneum: No free air. No ascites. Retroperitoneum: No mass. Vasculature: No abdominal aortic or iliac artery aneurysm. Pelvis: Urinary bladder is unremarkable. Bones: No acute abnormality. Lower thorax: No consolidation. No pleural effusion. Warehouse Man (topogram) images: No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 COMPLETED USING TWO (2) IDENTIFIERS: Name and Date of confirmed by patient verbally and Name and Date of confirmed by identification band. FALL SCREENING: Has the patient had 2 falls in the last year or 1 fall with injury or currently using an Ambulatory Assistive Device (Walker, Cane, Wheelchair, Crutches, etc.)? Emergency Room Patient: Screened in ED PATIENT GENDER DATA: Female. status: : No status: NO. PATIENT RELEVANT IMPLANT DATA REVIEWED: Not Applicable RADIOLOGY DEPARTMENT: General X-ray: Exam(s) Completed: Chest X-Ray PERIPHERAL IV DATA: Not applicable SIGNED BY: Deysi Carrillo RT(R) October 30, 2022 5:58 PM Normal [facility] Bacteria Bld Culton 10-31-19 23 Bacteria identified Cx Nom (Bld) CULTURE, BLOOD: No growth 5 days Normal [facility] Comment on above: Performed By: #### 6 00-7 ####[facility] LABCLIA [id number] [place] [address] [place] Basic metabolic 2000 panelon 10-30-2022 Anion gap [Moles/Vol] 12 mmol/L Normal 9-18 [facility] Comment on above: Order Comment: Speci men Type: BLOOD SPECIMENOrdering Facility: [facility] Address: [address] [place] [address] Performed By: #### 2 4321-2 ####[facility] LABORATORYCLIA [id number] [place] [address] [place] Calcium [Mass/Vol] 9.4 mg/dL Normal 8.5-10.[address] [facility] Comment on above: Order Comment: Speci men Type: BLOOD SPECIMENOrdering Facility: [facility] Address: [address] [place] [address] Performed By: #### 2 4321-2 ####[facility] LABORATORYCLIA [id number] [place] [address] [place] Chloride [Moles/Vol] 98 mmol/L Normal 97-105 [facility] Comment on above: Order Comment: Speci men Type: BLOOD SPECIMENOrdering Facility: [facility] Address: [address] [address] Performed By: #### 2 4321-2 ####[facility] LABORATORYCLIA [id number] [place] [address] [place] CO2 [Moles/Vol] 22 mmol/L Normal 22-30 [facility] Comment on above: Order Comment: Speci men Type: BLOOD SPECIMENOrdering Facility: [facility] Address: [address] [address] Performed By: #### 2 4321-2 ####[facility] LABORATORYCLIA [id number] [place] [address] [place] Creatinine [Mass/Vol] 1.50 mg/dL High 0.58-0.96 [facility] Comment on above: Order Comment: Speci men Type: BLOOD SPECIMENOrdering Facility: [facility] Address: [address] [place] [address] Performed By: #### 2 4321-2 ####[facility] LABORATORYCLIA [id number] [address] ESTIMATED GLOMERULAR FILTRATION RATE 41 mL/min/1.73m??? Low >=60 [facility] Comment on above: Order Comment: Speci men Type: BLOOD SPECIMENOrdering Facility: [facility] Address: [address] [place] [address] Result Comment: Mei mated Glomerular Filtration Rate (eGFR) is calculated using the 2020 CKD-EPI creatinine equation. This equation utilizes serum creatinine, sex, and age as parameters. The creatinine assay has traceable calibration to isotope dilution-mass spectrometry. Refer to KDIGO guidelines for clinical interpretation. In patients with unstable renal function, e.g. those with acute kidney injury, the eGFR may not accurately reflect actual GFR. Performed By: #### 2 4321-2 ####[facility] LABORATORYCLIA [id number] [place] [address] [place] Glucose [Mass/Vol] 188 mg/dL High 74-[address] [facility] Comment on above: Order Comment: Speci men Type: BLOOD SPECIMENOrdering Facility: [facility] Address: [address] [address] Result Comment: The [place] [employer] (ADA) provides guidance for cutoff values for fasting glucose and random glucose. The ADA defines fasting as no caloric intake for at least 8 hours. Fasting plasma glucose results between 100 to 125 mg/dL indicate increased risk for diabetes (prediabetes). Fasting plasma glucose results greater than or equal to 126 mg/dL meet the criteria for diagnosis of diabetes. In the absence of unequivocal hyperglycemia, results should be confirmed by repeat testing. In a patient with classic symptoms of hyperglycemia or hyperglycemic crisis, random plasma glucose results greater than or equal to 200 mg/dL meet the criteria for diagnosis of diabetes. Reference: Standards of Medical Care in Diabetes 2016, [place] [employer]. Diabetes Care. 2016.39(Suppl 1). Performed By: #### 2 4321-2 ####[facility] LABORATORYCLIA [id number] [place] [address] [place] Potassium [Moles/Vol] 4.0 mmol/L Normal 3.7-5.1 [facility] Comment on above: Order Comment: Van mora Type: BLOOD SPECIMENOrdering Facility: [facility] Address: [address] [address] Performed By: #### 2 4321-2 ####[facility] LABORATORYCLIA [id number] [place] [address] [place] Sodium [Moles/Vol] 132 mmol/L Low 136-[address] [facility] Comment on above: Order Comment: Van men Type: BLOOD SPECIMENOrdering Facility: [facility] Address: [address] [address] Performed By: #### 2 4321-2 ####[facility] LABORATORYCLIA [id number] [place] [address] [place] Urea nitrogen [Mass/Vol] 14 mg/dL Normal 7-21 [facility] Comment on above: Order Comment: Josei men Type: BLOOD SPECIMENOrdering Facility: [facility] Address: [address] [address] Performed By: #### 2 4321-2 ####[facility]ORATORYCLIA [id number] [place] [address] [place] CBC W Auto Differential pane l (Bld)on 10-30-2022 Basophils (Bld) [#/Vol] 0.07 10*3/uL Normal <0.11 [facility] Comment on above: Order Comment: Speci men Type: BLOOD SPECIMENOrdering Facility: [facility] Address: [address] [address] Performed By: #### 5 7021-8 ####[facility] LABORATORYIA [id number] [address] STATES [facility] Basophils/100 WBC (Bld) 0.5 % Normal [facility] Comment on above: Order Comment: Speci men Type: BLOOD SPECIMENOrdering Facility: [facility] Address: [address] [place] [address] Performed By: #### 5 7021-8 ####[facility] EN[facility]QU[facility]IND[facility] LABORATORYIA [id number] [place] [address] [place] [facility] Differential cell count method Nom (Bld) Auto Normal [facility] Comment on above: Order Comment: Speci men Type: BLOOD SPECIMENOrdering Facility: [facility] Address: [address] [place] [address] Performed By: #### 5 7021-8 ####[facility] ENRIQUEDEVIN [facility] LABORATORYIA [id number] [address] [place] Eosinophils (Bld) [#/Vol] 0.03 10*3/uL Normal <0.46 [facility] Comment on above: Order Comment: Speci men Type: BLOOD SPECIMENOrdering Facility: [facility] Address: [address] [address] Performed By: #### 5 7021-8 ####[facility] LABORATORYCLIA [id number] [place] [address] [place] Eosinophils/100 WBC (Bld) 0.2 % Normal [facility] Comment on above: Order Comment: Speci men Type: BLOOD SPECIMENOrdering Facility: [facility] Address: [address] [address] Performed By: #### 5 7021-8 ####[facility] LABORATORYCLIA [id number] [place] [address] [place] Erythrocyte distribution width (RBC) [Ratio] 12.5 % Normal 11.5-15.0 [facility] Comment on above: Order Comment: Speci men Type: BLOOD SPECIMENOrdering Facility: [facility] Address: [address] [place] [address] Performed By: #### 5 7021-8 ####[facility] LABORATORYCLIA [id number] [place] [address] [place] Hematocrit (Bld) [Volume fraction] 42.9 % Normal 36.0-46.0 [facility] Comment on above: Order Comment: Speci men Type: BLOOD SPECIMENOrdering Facility: [facility] Address: [address] [place] [address] Performed By: #### 5 7021-8 ####[facility] LABORATORYIA [id number] [address] [place] Hemoglobin (Bld) [Mass/Vol] 14.5 g/dL Normal 11.5-15.5 [facility] Comment on above: Order Comment: Speci men Type: BLOOD SPECIMENOrdering Facility: [facility] Address: [address] [address] Performed By: #### 5 7021-8 ####[facility] LABORATORYIA [id number] [place] [address] [place] Immature granulocytes (Bld) [#/Vol] 0.06 10*3/uL Normal <0.10 [facility] Comment on above: Order Comment: Speci men Type: BLOOD SPECIMENOrdering Facility: [facility] Address: [address] [place] [address] Performed By: #### 5 7021-8 ####[facility] LABORATORYCLIA [id number] [address] Immature granulocytes/100 WBC (Bld) 0.4 % Normal [facility] Comment on above: Order Comment: Speci men Type: BLOOD SPECIMENOrdering Facility: [facility] Address: [address] [place] [address] Performed By: #### 5 7021-8 ####[facility] LABORATORYIA [id number] [address] Lymphocytes (Bld) [#/Vol] 1.99 10*3/uL Normal 1.00-4.00 [facility] Comment on above: Order Comment: Speci men Type: BLOOD SPECIMENOrdering Facility: [facility] Address: [address] [place] [address] Performed By: #### 5 7021-8 ####CARLOS ENRIQUECINDY [facility]OCON[facility] POINTIA [id number] [address] Lymphocytes/100 WBC (Bld) 13.1 % Normal [facility] Comment on above: Order Comment: Speci men Type: BLOOD SPECIMENOrdering Facility: [facility] Address: [address] [place] [address] Performed By: #### 5 7021-8 ####[facility] LABORATORYIA [id number] [address] STATES [facility] MCH (RBC) [Entitic mass] 30.4 pg Normal 26.0-34.0 [facility] Comment on above: Order Comment: Speci men Type: BLOOD SPECIMENOrdering Facility: [facility] Address: [address] [place] [address] Performed By: #### 5 7021-8 ####[facility] LABORATORYIA [id number] [address] MCHC (RBC) [Mass/Vol] 33.8 g/dL Normal 30.5-36.0 [facility] Comment on above: Order Comment: Speci men Type: BLOOD SPECIMENOrdering Facility: [facility] Address: [address] [address] Performed By: #### 5 7021-8 ####[facility] LABORATORYCLIA [id number] [place] [address] [place] MCV (RBC) [Entitic vol] 89.9 fL Normal 80.0-100.0 [facility] Comment on above: Order Comment: Speci men Type: BLOOD SPECIMENOrdering Facility: [facility] Address: [address] [address] Performed By: #### 5 7021-8 ####[facility] LABORATORYCLIA [id number] [place] [address] [place] Monocytes (Bld) [#/Vol] 1.10 10*3/uL High <0.87 [facility] Comment on above: Order Comment: Speci men Type: BLOOD SPECIMENOrdering Facility: [facility] Address: [address] [address] Performed By: #### 5 7021-8 ####[facility] LABORATORYCLIA [id number] [place] [address] [place] Monocytes/100 WBC (Bld) 7.2 % Normal [facility] Comment on above: Order Comment: Speci men Type: BLOOD SPECIMENOrdering Facility: [facility] Address: [address] [address] Performed By: #### 5 7021-8 ####[facility] LABORATORYCLIA [id number] [place] [address] [place] Neutrophils (Bld) [#/Vol] 11.93 10*3/uL High 1.45-7.50 [facility] Comment on above: Order Comment: Speci men Type: BLOOD SPECIMENOrdering Facility: [facility] Address: [address] [address] Performed By: #### 5 7021-8 ####[facility] LABORATORYIA [id number] [place] [address] [place] Neutrophils/100 WBC (Bld) 78.6 % Normal [facility] Comment on above: Order Comment: Speci men Type: BLOOD SPECIMENOrdering Facility: [facility] Address: [address] [address] Performed By: #### 5 7021-8 ####[facility] LABORATORYIA [id number] [place] [address] [place] Nucleated RBC (Bld) [#/Vol] 10*3/uL Normal <0.01 [facility] Comment on above: Order Comment: Speci men Type: BLOOD SPECIMENOrdering Facility: [facility] Address: [address] [place] [address] Performed By: #### 5 7021-8 ####TY [facility] POINTIA [id number] [address] Nucleated RBC/100 WBC (Bld) [Ratio] 0.0 /100 WBC Normal [facility] Comment on above: Order Comment: Speci men Type: BLOOD SPECIMENOrdering Facility: [facility] Address: [address] [place] [address] Performed By: #### 5 7021-8 ####TY [facility] POINTIA [id number] [place] [address] [place] Platelet mean volume (Bld) [Entitic vol] 8.8 fL Low 9.0-12.7 [facility] Comment on above: Order Comment: Speci men Type: BLOOD SPECIMENOrdering Facility: [facility] Address: [address] [place], [place] [id number] Performed By: #### 5 7021-8 ####TY [facility] POINTIA [id number] [place] [address] [place] Platelets (Bld) [#/Vol] 372 10*3/uL Normal 150-400 [facility] Comment on above: Order Comment: Speci men Type: BLOOD SPECIMENOrdering Facility: [facility] Address: [address] [address] Performed By: #### 5 7021-8 ####[facility] EN[facility]QUEDEV[facility] LABORATORYCLIA [id number] [address] STATES OF [facility] RBC (Bld) [#/Vol] 4.77 10*6/uL Normal 3.90-5.[address] [facility] Comment on above: Order Comment: Speci men Type: BLOOD SPECIMENOrdering Facility: [facility] Address: [address] [address] Performed By: #### 5 7021-8 ####[facility] LABORATORYCLIA [id number] [address] OF [facility] WBC (Bld) [#/Vol] 15.18 10*3/uL High 3.70-11.00 [facility] Comment on above: Order Comment: Speci men Type: BLOOD SPECIMENOrdering Facility: [facility] Address: [address] [place] [address] Performed By: #### 5 7021-8 ###GeovannyCARLOS ENRIQUEDEVIN [facility] LABORATORYCLIA [id number] [address] CK SerPl-cCncon 10-30-2022 CK [Catalytic activity/Vol] 60 U/L Normal 42-196 [facility] Comment on above: Order Comment: Speci men Type: BLOOD SPECIMENOrdering Facility: [facility] Address: [address] [place] [address] Performed By: #### 2 157-6, 3040-3, HSTNT, BHB, 66750-8 ####[facility] LABORATORYCLIA [id number] [address] OF [facility] Comprehensive metabolic 2000 panelon 10-30-2022 Albumin [Mass/Vol] 5.0 g/dL High 3.9-4.[address] [facility] Comment on above: Order Comment: Speci men Type: BLOOD SPECIMENOrdering Facility: [facility] Address: [address] [address] Performed By: #### 2 157-6, 3040-3, HSTNT, BHB, 88790-9 ####CARLOS ENRIQUECAROLCINDY [facility] LABORATORYCLIA [id number] [place] [address] [place] ALP [Catalytic activity/Vol] 129 U/L High 34-123 [facility] Comment on above: Order Comment: Speci men Type: BLOOD SPECIMENOrdering Facility: [facility] Address: [address] [place] [address] Performed By: #### 2 157-6, 3040-3, HSTNT, BHB, 60744-6 ####[facility] LABORATORYCLIA [id number] [place] [address] [place] ALT [Catalytic activity/Vol] 60 U/L High 7-38 [facility] Comment on above: Order Comment: Speci men Type: BLOOD SPECIMENOrdering Facility: [facility] Address: [address] [place] [address] Performed By: #### 2 157-6, 3040-3, HSTNT, BHB, 60350-4 ###[facility] LABORATORYIA [id number] [place] [address] [place] Anion gap [Moles/Vol] 18 mmol/L Normal 9-18 [facility] Comment on above: Order Comment: Speci men Type: BLOOD SPECIMENOrdering Facility: [facility] Address: [address] [place] [address] Performed By: #### 2 157-6, 3040-3, HSTNT, BHB, 36018-3 ####[facility] LABORATORYIA [id number] [place] [address] [place] AST [Catalytic activity/Vol] 56 U/L High 13-35 [facility] Comment on above: Order Comment: Speci men Type: BLOOD SPECIMENOrdering Facility: [facility] Address: [address] [address] Performed By: #### 2 157-6, 3040-3, HSTNT, BHB, 90327-0 ####CARL[facility] EN[facility]QUEDEVIN [facility] LABORATORYCLIA [id number] [place] [address] [place] Bilirubin [Mass/Vol] 0.6 mg/dL Normal 0.2-1.3 [facility] Comment on above: Order Comment: Speci men Type: BLOOD SPECIMENOrdering Facility: [facility] Address: [address] [address] Performed By: #### 2 157-6, 3040-3, HSTNT, BHB, 41321-3 ####[facility] LABORATORYCLIA [id number] [place] [address] [place] Calcium [Mass/Vol] 11.0 mg/dL High 8.5-10.[address] [facility] Comment on above: Order Comment: Speci men Type: BLOOD SPECIMENOrdering Facility: [facility] Address: [address] [place] [address] Performed By: #### 2 157-6, 3040-3, HSTNT, BHB, 74757-3 ###[facility] LABORATORYCLIA [id number] [place] [address] [place] Chloride [Moles/Vol] 90 mmol/L Low 97-105 [facility] Comment on above: Order Comment: Speci men Type: BLOOD SPECIMENOrdering Facility: [facility] Address: [address] [address] Performed By: #### 2 157-6, 3040-3, HSTNT, BHB, 75697-9 ####[facility] LABORATORYCLIA [id number] [place] [address] [place] CO2 [Moles/Vol] 21 mmol/L Low 22-30 [facility] Comment on above: Order Comment: Speci men Type: BLOOD SPECIMENOrdering Facility: [facility] Address: [address] [address] Performed By: #### 2 157-6, 3040-3, HSTNT, [facility], 70969-8 ####CARLOS ENRIQUECINDY [facility] LABORATORYCLIA [id number] [place] [address] [place] Creatinine [Mass/Vol] 1.86 mg/dL High 0.58-0.96 [facility] Comment on above: Order Comment: Specchar men Type: BLOOD SPECIMENOrdering Facility: [facility] Address: [address] [address] Performed By: #### 2 157-6, 3040-3, HST, [facility], 44155-8 ####[facility] EN[facility]QUECIND[facility] LABORATORYCLIA [id number] [place] [address] [place] ESTIMATED GLOMERULAR FILTRATION RATE 31 mL/min/1.73m??? Low >=60 [facility] Comment on above: Order Comment: Van mora Type: BLOOD SPECIMENOrdering Facility: [facility] Address: [address] [address] Result Comment: Mei mated Glomerular Filtration Rate (eGFR) is calculated using the 2020 CKD-EPI creatinine equation. This equation utilizes serum creatinine, sex, and age as parameters. The creatinine assay has traceable calibration to isotope dilution-mass spectrometry. Refer to KDIGO guidelines for clinical interpretation. In patients with unstable renal function, e.g. those with acute kidney injury, the eGFR may not accurately reflect actual GFR. Performed By: #### 2 157-6, 3040-3, HST, [facility], 11493-8 ####[facility] EN[facility]QUECIND[facility] LABORATORYCLIA [id number] [place] [address] [place] Glucose [Mass/Vol] 309 mg/dL High 74-[address] [facility] Comment on above: Order Comment: Van mora Type: BLOOD SPECIMENOrdering Facility: [facility] Address: [address] [address] Result Comment: The [place] [employer] (ADA) provides guidance for cutoff values for fasting glucose and random glucose. The ADA defines fasting as no caloric intake for at least 8 hours. Fasting plasma glucose results between 100 to 125 mg/dL indicate increased risk for diabetes (prediabetes). Fasting plasma glucose results greater than or equal to 126 mg/dL meet the criteria for diagnosis of diabetes. In the absence of unequivocal hyperglycemia, results should be confirmed by repeat testing. In a patient with classic symptoms of hyperglycemia or hyperglycemic crisis, random plasma glucose results greater than or equal to 200 mg/dL meet the criteria for diagnosis of diabetes. Reference: Standards of Medical Care in Diabetes 2016, [place] [employer]. Diabetes Care. 2016.39(Suppl 1). Performed By: #### 2 157-6, 3040-3, HSTNT, BHB, 94648-5 ####[facility] LAB[facility]ATORYCLIA [id number] [place] [address] [place] Potassium [Moles/Vol] 4.2 mmol/L Normal 3.7-5.1 [facility] Comment on above: Order Comment: Van mora Type: BLOOD SPECIMENOrdering Facility: [facility] Address: [address] [address] Performed By: #### 2 157-6, 3040-3, HSTNT, BHB, 64922-6 ####[facility] LABORATORYCLIA [id number] [place] [address] [place] Protein [Mass/Vol] 8.3 g/dL High 6.3-8.[address] [facility] Comment on above: Order Comment: Van mora Type: BLOOD SPECIMENOrdering Facility: [facility] Address: [address] [address] Performed By: #### 2 157-6, 3040-3, HSTNT, BHB, 82851-0 ####[facility] LABORATORYCLIA [id number] [place] [address] [place] Sodium [Moles/Vol] 129 mmol/L Low 136-[address] [facility] Comment on above: Order Comment: Van mora Type: BLOOD SPECIMENOrdering Facility: [facility] Address: [address] [address] Performed By: #### 2 157-6, 3040-3, HSTNT, BHB, 53127-7 ####[facility] LABORATORYCLIA [id number] [place] [address] [facility] Urea nitrogen [Mass/Vol] 16 mg/dL Normal 7-21 [facility] Comment on above: Order Comment: Speci men Type: BLOOD SPECIMENOrdering Facility: [facility] Address: [facility] [place] [address] Performed By: #### 2 157-6, 3040-3, HSTNT, BHB, 02001-4 ####[facility] LABORATORYCLIA [id number] [place] [address] [place] ECG COMPLETEon 10-30-2022 ECG COMPLETE Ventricular Rate : 9 4 BPM Atrial Rate : 94 BPM P-R Interval : 134 ms QRS Duration : 72 ms Q-T Interval : 386 ms QTC Calculation(Bazett) : 482 ms Calculated P [place] : 31 degrees Calculated R [place] : 10 degrees Calculated T [place] : 11 degrees NORMAL SINUS RHYTHM POSSIBLE LEFT ATRIAL ENLARGEMENT NONSPECIFIC ST ABNORMALITY Prolonged QT? ABNORMAL ECG 1701 No significant changes Confirmed by MD SHEPARD TARAS ([id number]), assistant film editor CINTHIA BERGER ([id number]) on 10/31/2022 9:34:25 AM NAME : CHRISSY LAY PID : [id number] : 1965 Gender : Female Race : ORD : [id number] Procedure Date : Oct 30 2022 16:59:56 Edit Date : Oct 31 2022 09:34:27 Diagnosis: NORMAL SINUS RHYTHM POSSIBLE LEFT ATRIAL ENLARGEMENT NONSPECIFIC ST ABNORMALITY Prolonged QT? ABNORMAL ECG 1701 No significant changes Confirmed by MD SHEPARD TARAS ([id number]), assistant film editor CINTHIA BERGER ([id number]) on 10/31/2022 9:34:25 AM Test Reason : Palpitations Location : 215 : [id number] Overread By : MD SHEPARD TARAS Edited By : CINTHIA BERGER Referred By : , Acquired by : Omar WASHINGTON [facility] ED NOTEon 10-30-2022 ED NOTE HNO ID: [id number] Author: Padmini Thompson RN Service: Emergency Medicine Author Type: Registered Nurse Type: ED Notes Filed: 10/30/2022 9:39 PM Note Text: Report to Yasmine Normal [facility] ED NOTE HNO ID: [id number] Author: Padmini Thompson RN Service: Emergency Medicine Author Type: Registered Nurse Type: ED Notes Filed: 10/30/2022 8:08 PM Note Text: Pt feeling better than upon arrival, slight dizziness when getting up, urine sent Normal [facility] ED NOTE HNO ID: [id number] Author: Padmini Thompson RN Service: Emergency Medicine Author Type: Registered Nurse Type: ED Notes Filed: 10/30/2022 7:33 PM Note Text: Vancomycin almost complete and patient stated her scalp was itching, no rash noted, no SOB, lungs clear, pt advised of Tatamy admission Normal [facility] ED NOTE HNO ID: [id number] Author: Padmini Thompson RN Service: Emergency Medicine Author Type: Registered Nurse Type: ED Notes Filed: 10/30/2022 6:58 PM Note Text: Pt states she has been having periodic syncopal episodes, she took her heart rate and during episodes it was slow, one of the syncopal episodes resulted in a fall and she hit her head, one touch repeated, pt feeling much better except for nausea,children at beside Normal [facility] ED NOTE HNO ID: [id number] Author: Padmini Thompson RN Service: Emergency Medicine Author Type: Registered Nurse Type: ED Notes Filed: 10/30/2022 4:27 PM Note Text: Pt possibly having UTI symptoms, had on 2-3 month ago Normal [facility] ED NOTE HNO ID: [id number] Author: Danuta Mcdonald Service: Emergency Medicine Author Type: Bender Machine and Melt Helper Type: ED Notes Filed: 10/30/2022 4:01 PM Note Text: Pt was at work and became nauseated, per Pt just Started jardiance last week , and since then has been having high blood surgars even without eating Dr shepard at bedside Normal [facility] ED PROV NOTEon 10-30-2022 ED PROV NOTE HNO ID: [id number] Author: Reji Shepard MD Service: Emergency Medicine Author Type: Physician Type: ED Provider Notes Filed: 10/30/2022 7:00 PM Note Text: ED Provider Note Patient Name: Chrissy Lay : 1965 SERVICE DATE: 10/30/22 History Patient presents with: High Blood Sugar Patient is a 57-year-old female, with history hypertension, diabetes, dysmetabolic syndrome, RSD, asthma, who comes in by ambulance from home with elevated blood sugar as well as nausea and vomiting. The patient has been feeling sick for the past few days. Her blood sugars have been running high even though she has not eaten much. She has been vomiting a lot. She has some lower abdominal discomfort. She said when she threw up the one time, an old hernia popped out. She says it is better now. She said she started feeling bad after she was started on a new diabetes medicine last week. She said the medicine is Jardiance. She says her primary doctor prescribed that. She has not seen a repairer hairspring. She says she feels dizzy and lightheaded. She has a slight headache. She is unaware of any fevers or chills. No cough or COVID concerns. No chest pain or trouble breathing mention. She may have had some diarrhea as well. No dysuria or frequency. No rash or bruising or swelling. No localizing numbness or weakness. No other complaints. PAST MEDICAL HISTORY Diagnosis Date - Asymptomatic [...] fracture - Unspecified hypothyroidism off of meds. PAST SURGICAL HISTORY Procedure Laterality Date - ADDTL NECK SPINE FUSION 09/2020 c3-6 - APPENDECTOMY 1996 - BIOPSY BREAST OPEN INCISIONAL 1995 Bx of breast, incisional - right - CHOLECYSTECTOMY 1990 Cholecystectomy - COLONOSCOPY 2002 - COLONOSCOPY FLX DX W/COLLJ SPEC WHEN PFRMD 09/09/2008 Mild internal hemorrhoids - COLONOSCOPY FLX DX W/COLLJ SPEC WHEN PFRMD 04/20/2019 Colonoscopy - COLONOSCOPY W/BIOPSY SINGLE/MULTIPLE 08/02/2010 - ESOPHAGOGASTRODUODENOSCOPY TRANSORAL DIAGNOSTIC 04/20/2019 EGD - LIG/TRNSXJ FLP TUBE ABDL/VAG APPR UNI/BI 1992 Tubal ligation - LIG/TRNSXJ FLP TUBE ABDL/VAG APPR UNI/BI 10/03/2005 Tubal ligation - OOPHORECTOMY PARTIAL/TOTAL UNI/BI 2002 Oophorectomy Left - PAST SURGICAL HISTORY OF 1982 CYST REMOVAL RIGHT FOOT - PAST SURGICAL HISTORY OF 1997 Right knee surgery - PAST SURGICAL HISTORY OF 1999 Right knee surgery - PAST SURGICAL HISTORY OF 2000 tubal reversal - PAST SURGICAL HISTORY OF 2012 uterine ablation - PAST SURGICAL HISTORY OF 09/2021 cervical fusion 2-[address] Lopez/[facility], hardware present - REPAIR RECTOCELE SEPARATE PROCEDURE 10/03/2005 - SHOULDER SURGERY HX Right x5, BWC, humeral fx, ruptured bicep, RCR - STEREO LOC FOR BRST NDLE BX LT 01/15/2008 LEFT - VAGINAL HYSTERECTOMY UTERUS 250 GM/< 06/08/2015 FAMILY HISTORY Problem Relation Age of Onset - Alcohol/Drug Father - Diabetes Brother - Diabetes Paternal Grandmother - Cancer Paternal Grandfather LARNYX - Breast Cancer Maternal Aunt Breast - Cervical Cancer Sister two sisters - Cancer Sister Vulva - Diabetes Sister Social History Tobacco Use - Smoking status: Never - Smokeless tobacco: Never Vaping Use - Vaping Use: Never used Substance and Sexual Activity - Alcohol use: Yes Alcohol/week: 18.2 standard drinks Types: 14 Mixed Drinks per week Comment: 2 vodka mixed drinks nightly - Drug use: Not Currently Types: Marijuana Comment: marijuana in the past - Sexual activity: Not on file Comment: not asked ALLERGIES Allergen Reactions - Pneumovax 23 [Pneum* Shortness of Breath - Sulfa (Sulfonamide * Anaphylaxis - Actos [Pioglitazone* Swelling bloated and some chest pain - Arava [Leflunomide] Other: See Comments Made rheumatoid arthritis symptoms worse - Bactrim [Sulfametho* Anaphylaxis - Codeine Itching - Concerta [Methylphe* Other: See Comments flushing - Embeda [Morphine-Na* Intolerance - Enbrel [Etanercept] Other: See Comments Hypertension, heart palpitations, breathing problems - Environmental Aller* Intolerance Dust mites, molds - Humira [Adalimumab] Other: See Comments infection - Ketek [Telithromyci* Mental Status Change - Lopressor [Metoprol* palpitations - Morphine Mental Status Change - Oxymorphone Mental Status Change - Percocet [Oxycodone* Itching Severe itching - Mgvrnam-Xza-Aba Red* Other: See Comments Muscle a (more content not included)... Normal [facility] FLUABV+SARS-CoV-2+RSV Pnl Re sp JALIL+probeon 10-30-2022 FLUABV+SARS-CoV-2+R SV Pnl Resp JALIL+probe COVID 19 RESULT: Not detected The method used is RT-PCR or an equivalent NAAT method. Reference Range(the expected result in uninfected individuals): Not detected INFLUENZA A PCR: Not detected INFLUENZA B PCR: Not detected RSV PCR: Not detected Normal [facility] Comment on above: Performed By: #### 9 5941-1 ####[facility] LABORATORYCLIA [id number] [address] [place] HIGH SENSITIVITY TROPONIN To n 10-30-2022 HIGH SENSITIVITY YUE 9 ng/L Normal <12 [facility] Comment on above: Order Comment: Van mora Type: BLOOD SPECIMENOrdering Facility: [facility] Address: [address] [place] [id number] Result Comment: When assessing risk for acute coronary syndromes: In patients undergoing blood draw greater than or equal to 2 hours from symptom onset, with history of very low to moderate risk and non-ischemic ECG, an initial hs-Troponin T less than 12 ng/L AND a 1 hour delta hs-Troponin T less than 3 ng/L should be considered very low risk for 30 day MACE. Performed By: #### 2 157-6, 3040-3, HSTNT, BHB, 54590-1 ###[facility] LABORATORYCLIA [id number] [address] [place] KETONES/ACETONE/BHBon 2022 Beta hydroxybutyrate [Moles/Vol] 0.59 mmol/L High <0.28 [facility] Comment on above: Order Comment: Van mora Type: BLOOD SPECIMENOrdering Facility: [facility] Address: [address] [address] Performed By: #### 2 157-6, 3040-3, HSTNT, BHB, 67889-4 ####[facility] LABORATORYCLIA [id number] [place] [address] [place] Lipase SerPl-cCncon 10-31-19 Lipase [Catalytic activity/Vol] 40 U/L Normal 16-61 [facility] Comment on above: Order Comment: Speci men Type: BLOOD SPECIMENOrdering Facility: [facility] Address: [address] [place] [address] Performed By: #### 2 157-6, 3040-3, HSTNT, BHB, 24059-0 ####[facility] LABORATORYCLIA [id number] [place] [address] [place] Magnesium SerPl-mCncon 10-30 Magnesium [Mass/Vol] 2.0 mg/dL Normal 1.7-2.3 [facility] Comment on above: Order Comment: Speci men Type: BLOOD SPECIMENOrdering Facility: [facility] Address: [address] [place] [address] Performed By: #### 1 9123-9 ####[facility] LABORATORYCLIA [id number] [place] [address] [place] TOX SCREEN ROUT URon 023 Amphetamines Confirm (U) [Mass/Vol] Negative Normal Negative [facility] Comment on above: Order Comment: Speci men Type: URINE SPECIMENOrdering Facility: [facility] Address: [address] [place] [address] Result Comment: Cuto ff threshold at 1000 ng/mL. Performed By: #### U TOX2 ####[facility]ORATORYCLIA [id number] [place] [address] [place] BARBITURATES, URINE Negative Normal Negative [facility] Comment on above: Order Comment: Speci men Type: URINE SPECIMENOrdering Facility: [facility] Address: [address] [address] Result Comment: Cuto ff threshold at 200 ng/mL. Performed By: #### U TOX2 ####[facility] LABORATORYCLIA [id number] [place] [address] [place] BENZODIAZEPINES, UR Negative Normal Negative [facility] Comment on above: Order Comment: Speci men Type: URINE SPECIMENOrdering Facility: [facility] Address: [address] [place] [address] Result Comment: Cuto ff threshold at 200 ng/mL. Performed By: #### U TOX2 ####[facility]ATORYCLIA [id number] [place] [address] [place] CANNABINOIDS,URINE Positive Abnormal Negative [facility] Comment on above: Order Comment: Speci men Type: URINE SPECIMENOrdering Facility: [facility] Address: [address] [place] [address] Result Comment: Cuto ff threshold at 50 ng/mL. Performed By: #### U TOX2 ####[facility] LABORATORYIA [id number] [place] [address] [place] Cocaine Ql (U) Negative Normal Negative [facility] Comment on above: Order Comment: Speci men Type: URINE SPECIMENOrdering Facility: [facility] Address: [address] [place] [address] Result Comment: Cuto ff threshold at 300 ng/mL. Performed By: #### U TOX2 ####[facility] LABORATORYIA [id number] [place] [address] [place] Ethanol (U) [Mass/Vol] <11 Normal <11 [facility] Comment on above: Order Comment: Speci men Type: URINE SPECIMENOrdering Facility: [facility] Address: [address] [place] [address] Performed By: #### U TOX2 ####[facility] LABORATORYIA [id number] [address] Opiates Screen Ql (U) Negative Normal Negative [facility] Comment on above: Order Comment: Speci men Type: URINE SPECIMENOrdering Facility: [facility] Address: [address] [place] [address] Result Comment: Cuto ff threshold at 300 ng/mL. Performed By: #### U TOX2 ####[facility] LABORATORYCLIA [id number] [address] oxyCODONE cutoff Screen (U) [Mass/Vol] Positive Abnormal Negative [facility] Comment on above: Order Comment: Speci men Type: URINE SPECIMENOrdering Facility: [facility] Address: [address] [place] [address] Result Comment: Cuto ff threshold at 100 ng/mL. Performed By: #### U TOX2 ####[facility]ORATORYCLIA [id number] [address] Phencyclidine Ql (U) Negative Normal Negative [facility] Comment on above: Order Comment: Speci men Type: URINE SPECIMENOrdering Facility: [facility] Address: [address] [place] [address] Result Comment: Cuto ff threshold at 25 ng/mL. Performed By: #### U TOX2 ####[facility] LABORATORYCLIA [id number] [address] [place] XR CHEST 1V FRONTAL PORTon 0 10-30-2022 XR CHEST 1V FRONTAL PORT * * *Final Report* * * DATE OF EXAM: Oct 30 2022 5:57PM BRX [id number] - XR CHEST 1V FRONTAL PORT / PROCEDURE REASON: Fatigue and malaise * * * * Physician Interpretation * * * * EXAMINATION: CHEST RADIOGRAPH (PORTABLE SINGLE VIEW AP) Exam Date/Time: 10/30/2022 5:57 PM CLINICAL HISTORY: Fatigue and malaise MQ: XCPR_5 Comparison: 08/30/2016 RESULT: Lines, tubes, and devices: None. Lungs and pleura: No edema, infiltrates, pulmonary nodules or pleural effusions. No pneumothorax. Cardiomediastinal silhouette: Stable cardiomediastinal silhouette. Other: . IMPRESSION: No active disease Principal Gifts Officer: PSCB Transcribe Date/Time: Oct 30 2022 5:59P Dictated by : LAVERNE BRUNNER MD This examination was interpreted and the report reviewed and electronically signed by: LAVERNE BRUNNER MD on Oct 30 2022 6:00PM EST [id number] Normal [facility] Absolute lymphocyte counton 06-04-2022 Lymphocytes Auto (Unsp spec) [#/Vol] 2.43 10*3/uL 0.83-4.51 [facility] Work Phone: Basophil percentageon 2021 Basophils/100 WBC (Bld) 1.0 % 0-1 [facility] Work Phone: Bilirubin [Mass/Vol] 0.30 mg/dL 0.20-1.00 [facility] Work Phone: [phone] Comment on above: For patients on eltr ombopag therapy, use of Dimension [place] TBIL is not recommended. Chloride [Moles/Vol] 106 mmol/L 98-107 [facility] Work Phone: Cholesterol [Mass/Vol] 209 mg/dL <200 [facility] Work Phone: Comment on above: <200 mg/dL Desirable 200-240 mg/dL Borderline >240 mg/dL High Risk Eosinophils/100 WBC (Bld) 3.0 % 0-5 [facility] Work Phone: Glucose [Mass/Vol] 172 mg/dL 74-106 [facility] Work Phone: Comment on above: Fasting Glucose resu lt greater than or equal to 126 mg/dL suggests DIABETES MELLITUS per A.D.A. criteria. Neutrophils (Bld) [#/Vol] 1.8 10*3/uL 2.0-7.7 [facility] Work Phone: Neutrophils/100 WBC (Bld) 36.6 % 47-70 [facility] Work Phone: Potassium [Moles/Vol] 4.0 mmol/L 3.5-5.1 [facility] Work Phone: Protein [Mass/Vol] 6.7 g/dL 6.4-8.2 [facility] Work Phone: Sodium [Moles/Vol] 141 mmol/L 136-145 [facility] Work Phone: Triglyceride [Mass/Vol] 276 mg/dL <199 [facility] Work Phone: Comment on above: The drugs N-Acetylcy steine and Metamizole may falsely depress this assay.Serum Triglycerides Reference Interval Normal <150 mg/dL Borderline high 150 - 199 mg/dL High 200 - 499 mg/dL Very High > or = 500 mg/dL WBC (Bld) [#/Vol] 5.0 10*3/uL 4.4-11.0 [facility] Work Phone: Blood erythrocytes count (nu mber/volume)on 06-04-2022 RBC (Bld) [#/Vol] 4.23 10*6/uL 4.2-5.4 [facility] Work Phone: Blood hemoglobin measurement (mass/volume)on 06-04-2022 Hemoglobin (Bld) [Mass/Vol] 13.2 g/dL 12.0-15.0 [facility] Work Phone: Blood lymphocytes/100 leukoc yteson 06-04-2022 Lymphocytes/100 WBC (Bld) 48.6 % 19-41 [facility] Work Phone: Blood monocytes/100 leukocyt eson 06-04-2022 Monocytes/100 WBC (Bld) 10.6 % 0-10 [facility] Work Phone: Blood platelet mean volumeon 06-04-2022 Platelet mean volume (Bld) [Entitic vol] 8.6 fL 6.2-12.0 [facility] Work Phone: Determination of erythrocyte mean corpuscular volume (MCV)on 06-04-2022 MCV (RBC) [Entitic vol] 92.0 fL 81-99 [facility] Work Phone: Hematocrit Auto (Bld) [Volum e fraction]on 06-04-2022 Hematocrit (Bld) [Volume fraction] 38.9 % 37-47 [facility] Work Phone: Laboratory - Chemistry and C hemistry - challengeon 06-04-2022 ALP [Catalytic activity/Vol] 107 U/L 45-117 [facility] Work Phone: ALT [Catalytic activity/Vol] 56 U/L 13-56 [facility] Work Phone: CO2 [Moles/Vol] 27.0 mmol/L 21.0-32.0 [facility] Work Phone: Free T4 [Mass/Vol] 0.70 ng/dL 0.76-1.46 [facility] Work Phone: Globulin (S) [Mass/Vol] 3.4 g/dL 2.2-4.2 [facility] Work Phone: Urea nitrogen/Creatinine [Mass ratio] 19.7 mg/mg 10-20 [facility] Work Phone: Laboratory - Hematology and Cell countson 06-04-2022 Erythrocyte distribution width (RBC) [Entitic vol] 43.3 fL 35.1-43.9 [facility] Work Phone: Erythrocyte distribution width (RBC) [Ratio] 12.9 % 11.6-14.6 [facility] Work Phone: Immature granulocytes/100 WBC (Bld) 0.200 % 0.0-0.9 [facility] Work Phone: Comment on above: IG% - Immature Granu locytes (promyelocytes, myelocytes and metamyelocytes) > 1% indicates that a LEFT SHIFT is Present. MCH (RBC) [Entitic mass] 31.2 pg 27.0-32.0 [facility] Work Phone: [phone] Nucleated RBC/100 WBC (Bld) [Ratio] 0 % 0-5 [facility] Work Phone: MCHC Auto (RBC) [Mass/Vol]on 06-04-2022 MCHC (RBC) [Mass/Vol] 33.9 g/dL 32-36 [facility] Work Phone: No Panel Informationon 06-04 Estimated GFR (MDRD) Amer 145 mL/min >60 [facility] Work Phone: Comment on above: GFR Calc Estimated GFR (MDRD) Non-Af Amer 120 mL/min >60 [facility] Work Phone: Comment on above: Non- GFR Calc Free Triiodothyronine (T3) pg/dL 2.8 pg/mL 2.18-3.98 [facility] Work Phone: Thyroid Stimulating Hormone (TSH) 1.78 uIU/mL 0.358-3.74 [facility] Work Phone: Vitamin D 25-Hydroxy 42.5 ng/mL [facility] Work Phone: Comment on above: Vitamin D 25(OH) Sta tus Range Deficiency <20 ng/mL (50nmol/L) Insufficiency 20 - 30 ng/mL (50 - 75 nmol/L) Sufficiency 30 - 100 ng/mL (75 - 250 nmol/L) Toxicity >100 ng/mL (>250 nmol/L) Platelets bldon 06-04-2022 Platelets (Bld) [#/Vol] 324 10*3/uL 150-450 [facility] Work Phone: Serum or plasma albumin azul urement (mass/volume)on 06-04-2022 Albumin [Mass/Vol] 3.3 g/dL 3.2-5.0 [facility] Work Phone: Serum or plasma albumin/glob ulin mass ratioon 06-04-2022 Albumin/Globulin [Mass ratio] 1.0 {ratio} 0.9-2.4 [facility] Work Phone: Serum or plasma calcium azul urement (mass/volume)on 06-04-2022 Calcium [Mass/Vol] 8.7 mg/dL 8.5-10.1 [facility] Work Phone: Serum or plasma cholesterol in HDL measurement (mass/volume)on 06-04-2022 Cholesterol in HDL [Mass/Vol] 66 mg/dL >40 [facility] Work Phone: Comment on above: The drugs N-Acetylcy steine and Metamizole may falsely depress this assay. Reference Range HDL <40 mg/dL Low HDL Cholesterol HDL >or= 60 mg/dL High HDL Cholesterol Serum or plasma cholesterol in VLDL measurement (mass/volume)on 06-04-2022 Cholesterol in VLDL [Mass/Vol] 55 mg/dL 5-40 [facility] Work Phone: Serum or plasma creatinine m easurement (mass/volume)on 06-04-2022 Creatinine [Mass/Vol] 0.56 mg/dL 0.55-1.02 [facility] Work Phone: Comment on above: The validity of the calculated GFR & GFRAA in patients over 70 years has not been determined. Clinical correlation is essential. Serum or plasma low density lipoprotein (LDL) cholesterol measurement (mass/volume)on 06-04-2022 Cholesterol in LDL [Mass/Vol] 88 mg/dL 0-130 [facility] Work Phone: Serum or plasma urea nitroge n measurement (mass/volume)on 06-04-2022 Urea nitrogen [Mass/Vol] 11 mg/dL 7-18 [facility] Work Phone: Thin prep Papanicolaou smear with manual screeningon 06-04-2022 Thin prep Papanicolaou smear with manual screening 70 U/L 15-37 [facility] Work Phone: Thin prep Papanicolaou smear with manual screening 8 5-15 [facility] Work Phone: Whole blood hemoglobin A1c/t otal hemoglobin ratio (mass fraction)on 06-04-2022 HbA1c (Bld) [Mass fraction] 8.4 % 3.8-5.6 [facility] Work Phone: Comment on above: Normal < 5.7 % Predi abetic 5.7 - 6.4 % Diabetic >or= 6.5 % Please note range changes. Absolute lymphocyte counton 04-04-2022 Lymphocytes Auto (Unsp spec) [#/Vol] 2.73 10*3/uL 0.83-4.51 [facility] Work Phone: Basophil percentageon 2021 Basophil percentage 5-10 SEEN /hpf 0-5 [facility] Work Phone: Basophils/100 WBC (Bld) 0.4 % 0-1 [facility] Work Phone: Chloride [Moles/Vol] 101 mmol/L 98-107 [facility] Work Phone: Eosinophils/100 WBC (Bld) 0.2 % 0-5 [facility] Work Phone: Glucose [Mass/Vol] 344 mg/dL 74-106 [facility] Work Phone: Comment on above: Glucose result great er than or equal to 200 mg/dLsuggests DIABETES MELLITUS per A.D.A. criteria. Neutrophils (Bld) [#/Vol] 9.0 10*3/uL 2.0-7.7 [facility] Work Phone: Neutrophils/100 WBC (Bld) 70.3 % 47-70 [facility] Work Phone: Potassium [Moles/Vol] 4.1 mmol/L 3.5-5.1 [facility] Work Phone: [phone] Comment on above: Moderate Hemolysis, Result may be falsely increased. Sodium [Moles/Vol] 134 mmol/L 136-145 [facility] Work Phone: WBC (Bld) [#/Vol] 12.8 10*3/uL 4.4-11.0 [facility] Work Phone: Bilirubin Test strip Ql (U)o n 04-04-2022 Bilirubin Ql (U) Negative Negative [facility] Work Phone: Blood erythrocytes count (nu mber/volume)on 04-04-2022 RBC (Bld) [#/Vol] 4.73 10*6/uL 4.2-5.4 [facility] Work Phone: Blood hemoglobin measurement (mass/volume)on 04-04-2022 Hemoglobin (Bld) [Mass/Vol] 14.5 g/dL 12.0-15.0 [facility] Work Phone: Blood lymphocytes/100 leukoc yteson 04-04-2022 Lymphocytes/100 WBC (Bld) 21.3 % 19-41 [facility] Work Phone: Blood monocytes/100 leukocyt eson 04-04-2022 Monocytes/100 WBC (Bld) 7.5 % 0-10 [facility] Work Phone: Blood platelet mean volumeon 04-04-2022 Platelet mean volume (Bld) [Entitic vol] 9.4 fL 6.2-12.0 [facility] Work Phone: Determination of erythrocyte mean corpuscular volume (MCV)on 04-04-2022 MCV (RBC) [Entitic vol] 90.9 fL 81-99 [facility] Work Phone: Glucose Glucometer (BldC) [M ass/Vol]on 04-04-2022 Glucose [Mass/Vol] 366 mg/dL 74-106 [facility] Work Phone: Comment on above: MANAGEMENT OF PATIEN T CARE PER NURSING PROTOCOL Hematocrit Auto (Bld) [Volum e fraction]on 04-04-2022 Hematocrit (Bld) [Volume fraction] 43.0 % 37-47 [facility] Work Phone: Hyaline casts LM.LPF (Urine sed) [#/Area]on 04-04-2022 Hyaline casts (Urine sed) [#/Area] 25 /[LPF] 0-5 [facility] Work Phone: Ketones Test strip Ql (U)on 04-04-2022 Ketones Ql (U) Negative Negative [facility] Work Phone: Laboratory - Chemistry and C hemistry - challengeon 09-01-2022 CO2 [Moles/Vol] 21.0 mmol/L 21.0-32.0 [facility] Work Phone: Urea nitrogen/Creatinine [Mass ratio] 10.9 mg/mg 10-20 [facility] Work Phone: Laboratory - Drug toxicology on 04-04-2022 Amphetamines Ql (U) Negative <1000 ng/mL [facility] Work Phone: Benzodiazepines Ql (U) Negative < 200 ng/mL [facility] Work Phone: Cannabinoids Screen Ql (U) Positive < 50 ng/mL [facility] Work Phone: Cocaine Ql (U) Negative < 300 ng/mL [facility] Work Phone: Opiates Ql (U) Negative < 300 ng/mL [facility] Work Phone: Laboratory - Hematology and Cell countson 04-04-2022 Erythrocyte distribution width (RBC) [Entitic vol] 40.9 fL 35.1-43.9 [facility] Work Phone: Erythrocyte distribution width (RBC) [Ratio] 12.4 % 11.6-14.6 [facility] Work Phone: Immature granulocytes/100 WBC (Bld) 0.300 % 0.0-0.9 [facility] Work Phone: Comment on above: IG% - Immature Granu locytes (promyelocytes, myelocytes and metamyelocytes) > 1% indicates that a LEFT SHIFT is Present. MCH (RBC) [Entitic mass] 30.7 pg 27.0-32.0 [facility] Work Phone: Nucleated RBC/100 WBC (Bld) [Ratio] 0 % 0-5 [facility] Work Phone: MCHC Auto (RBC) [Mass/Vol]on 04-04-2022 MCHC (RBC) [Mass/Vol] 33.7 g/dL 32-36 [facility] Work Phone: Mucus LM Ql (Urine sed)on Mucus Ql (Urine sed) 0 SEEN /hpf [facility] Work Phone: Nitrite Test strip Ql (U)on 04-04-2022 Nitrite Ql (U) Negative Negative [facility] Work Phone: No Panel Informationon 04-04 MDMA (Ecstasy) Screen Negative < 500 ng/mL [facility] Work Phone: Urine Barbiturates Screen Negative < 200 ng/mL [facility] Work Phone: Urine Drug Screen Comment [facility] Work Phone: Comment on above: CONFIRMATORY TESTING FOR ALL POSITIVE URINE DRUG SCREENRESULTS WILL ONLY BE SENT OUT UPON PHYSICIAN ORDER. VISTA Urine Drug Screen methods provide only preliminaryanalytical test results. A more specific alternate chemicalmethod must be used in order to obtain a confirmedanalytical result. Gas chromatography/mass spectrometery(GC/MS) is the preferred confirmatory method. Clinicalconsideration and professional judgement should be appliedto any drug of abuse test result, particularly whenpreliminary positive results are used. URINE TCA TESTING MUST BE ORDERED SEPARATELY. USE TESTMNEMONIC: [facility] Urine Methadone Screen Negative < 300 ng/mL [facility] Work Phone: Estimated Creatinine Clearance Calc 49.71 ml/min [facility] Work Phone: Estimated GFR (MDRD) Amer 55 mL/min >60 [facility] Work Phone: Comment on above: GFR Calc Estimated GFR (MDRD) Non-Af Amer 45 mL/min >60 [facility] Work Phone: Comment on above: Non- GFR Calc Platelets bldon 04-04-2022 Platelets (Bld) [#/Vol] 526 10*3/uL 150-450 [facility] Work Phone: Protein Test strip Ql (U)on 04-04-2022 Protein Ql (U) 30 mg/dl Negative [facility] Work Phone: Serum or plasma calcium azul urement (mass/volume)on 04-04-2022 Calcium [Mass/Vol] 10.2 mg/dL 8.5-10.1 [facility] Work Phone: Serum or plasma creatinine m easurement (mass/volume)on 04-04-2022 Creatinine [Mass/Vol] 1.29 mg/dL 0.55-1.02 [facility] Work Phone: Comment on above: The validity of the calculated GFR & GFRAA in patients over 70 years has not been determined. Clinical correlation is essential. Serum or plasma urea nitroge n measurement (mass/volume)on 04-04-2022 Urea nitrogen [Mass/Vol] 14 mg/dL 7-18 [facility] Work Phone: Squamous epithelial cells de tection in urine sediment by light microscopyon 04-04-2022 Epithelial cells.squamous LM Ql (Urine sed) 5-10 SEEN /hpf 5-10 [facility] Work Phone: Thin prep Papanicolaou smear with manual screeningon 04-04-2022 Thin prep Papanicolaou smear with manual screening 12 5-15 [facility] Work Phone: Urine blood detectionon RBC Ql (U) 10 /ul Negative [facility] Work Phone: RBC Ql (U) 0-5 SEEN /hpf 0-5 [facility] Work Phone: Urine clarityon 04-04-2022 Clarity (U) Clear Clear [facility] Work Phone: Urine color determinationon 04-04-2022 Color (U) Yellow Yellow [facility] Work Phone: Urine glucose detectionon Glucose Ql (U) 1000 mg/dl Normal [facility] Work Phone: Urine leukocyte esterase det ection by dipstickon 04-04-2022 Leukocyte esterase Test strip Ql (U) Negative Negative [facility] Work Phone: Urine pHon 04-04-2022 pH (U) 6.0 [pH] 5.0 - 8.0 [facility] Work Phone: Urine phencyclidine (PCP) de tectionon 04-04-2022 Phencyclidine Ql (U) Negative < 25 ng/mL [facility] Work Phone: Urine sediment bacteria coun t by microscopy (number/high power field)on 04-04-2022 Bacteria LM.HPF (Urine sed) [#/Area] 1 /[HPF] None Seen [facility] Work Phone: Urine specific gravity measu rementon 04-04-2022 Specific gravity (U) [Rel density] 1.010 1.002-1.030 [facility] Work Phone: Urobilinogen Auto test strip Ql (U)on 04-04-2022 Urobilinogen Ql (U) Normal mg/dl Normal [facility] Work Phone: Laboratory - Chemistry and C hemistry - challengeon 03-13-2022 Bilirubin Ql (U) Negative [facility] Work Phone: Glucose Ql (U) 500 g/dL [facility] Work Phone: Ketones Ql (U) Trace (5) [facility] Work Phone: pH (U) 6.0 [pH] [facility] Work Phone: Specific gravity (U) [Rel density] 1.020 [facility] Work Phone: Urobilinogen (U) [Mass/Vol] Negative [facility] Work Phone: Laboratory - Hematology and Cell countson 03-13-2022 Hemoglobin Ql (U) Negative [facility] Work Phone: Laboratory - Specimen inform ationon 03-13-2022 Clarity (U) Slightly Hazy [facility] Work Phone: Color (U) YELLOW [facility] Work Phone: Laboratory - Urinalysison Nitrite Ql (U) Negative [facility] Work Phone: Protein Ql (U) Negative [facility] Work Phone: No Panel Informationon 03-13 Urine Leukocytes Negatve [facility] Work Phone: Urine Non-Hemolyzed Blood Negative [facility] Work Phone: [phone] Absolute lymphocyte counton 03-11-2022 Lymphocytes Auto (Unsp spec) [#/Vol] 3.48 10*3/uL 0.83-4.51 [facility] Work Phone: Basophil percentageon 2021 Basophil percentage 0-5 SEEN /hpf 0-5 [facility] Work Phone: Basophils/100 WBC (Bld) 0.6 % 0-1 [facility] Work Phone: Bilirubin [Mass/Vol] 0.50 mg/dL 0.20-1.00 [facility] Work Phone: Comment on above: For patients on eltr ombopag therapy, use of Dimension [place] TBIL is not recommended. Chloride [Moles/Vol] 99 mmol/L 98-107 [facility] Work Phone: Eosinophils/100 WBC (Bld) 0.5 % 0-5 [facility] Work Phone: Glucose [Mass/Vol] 143 mg/dL 74-106 [facility] Work Phone: Comment on above: Fasting Glucose resu lt greater than or equal to 126 mg/dL suggests DIABETES MELLITUS per A.D.A. criteria. Neutrophils (Bld) [#/Vol] 8.1 10*3/uL 2.0-7.7 [facility] Work Phone: Neutrophils/100 WBC (Bld) 62.4 % 47-70 [facility] Work Phone: Potassium [Moles/Vol] 4.1 mmol/L 3.5-5.1 [facility] Work Phone: Comment on above: Moderate Hemolysis, Result may be falsely increased. Protein [Mass/Vol] 7.6 g/dL 6.4-8.2 [facility] Work Phone: Sodium [Moles/Vol] 131 mmol/L 136-145 [facility] Work Phone: WBC (Bld) [#/Vol] 13.0 10*3/uL 4.4-11.0 [facility] Work Phone: Bilirubin Test strip Ql (U)o n 03-11-2022 Bilirubin Ql (U) Negative Negative [facility] Work Phone: Blood erythrocytes count (nu mber/volume)on 03-11-2022 RBC (Bld) [#/Vol] 4.77 10*6/uL 4.2-5.4 [facility] Work Phone: Blood hemoglobin measurement (mass/volume)on 03-11-2022 Hemoglobin (Bld) [Mass/Vol] 14.5 g/dL 12.0-15.0 [facility] Work Phone: Blood lymphocytes/100 leukoc yteson 03-11-2022 Lymphocytes/100 WBC (Bld) 26.8 % 19-41 [facility] Work Phone: Blood monocytes/100 leukocyt eson 03-11-2022 Monocytes/100 WBC (Bld) 9.2 % 0-10 [facility] Work Phone: Blood platelet mean volumeon 03-11-2022 Platelet mean volume (Bld) [Entitic vol] 8.9 fL 6.2-12.0 [facility] Work Phone: Determination of erythrocyte mean corpuscular volume (MCV)on 03-11-2022 MCV (RBC) [Entitic vol] 91.4 fL 81-99 [facility] Work Phone: Hematocrit Auto (Bld) [Volum e fraction]on 03-11-2022 Hematocrit (Bld) [Volume fraction] 43.6 % 37-47 [facility] Work Phone: Ketones Test strip Ql (U)on 03-11-2022 Ketones Ql (U) Negative Negative [facility] Work Phone: Laboratory - Chemistry and C hemistry - challengeon 03-11-2022 ALP [Catalytic activity/Vol] 122 U/L 45-117 [facility] Work Phone: ALT [Catalytic activity/Vol] 58 U/L 13-56 [facility] Work Phone: CO2 [Moles/Vol] 25.0 mmol/L 21.0-32.0 [facility] Work Phone: Globulin (S) [Mass/Vol] 4.1 g/dL 2.2-4.2 [facility] Work Phone: Urea nitrogen/Creatinine [Mass ratio] 13.2 mg/mg 10-20 [facility] Work Phone: Bilirubin Ql (U) Negative [facility] Work Phone: Glucose Ql (U) Negative [facility] Work Phone: Ketones Ql (U) Trace (5) [facility] Work Phone: pH (U) 6.0 [pH] [facility] Work Phone: Specific gravity (U) [Rel density] 1.020 [facility] Work Phone: Urobilinogen (U) [Mass/Vol] Negative [facility] Work Phone: Laboratory - Hematology and Cell countson 03-11-2022 Erythrocyte distribution width (RBC) [Entitic vol] 45.2 fL 35.1-43.9 [facility] Work Phone: Erythrocyte distribution width (RBC) [Ratio] 13.5 % 11.6-14.6 [facility] Work Phone: Immature granulocytes/100 WBC (Bld) 0.500 % 0.0-0.9 [facility] Work Phone: Comment on above: IG% - Immature Granu locytes (promyelocytes, myelocytes and metamyelocytes) > 1% indicates that a LEFT SHIFT is Present. MCH (RBC) [Entitic mass] 30.4 pg 27.0-32.0 [facility] Work Phone: Nucleated RBC/100 WBC (Bld) [Ratio] 0 % 0-5 [facility] Work Phone: Hemoglobin Ql (U) Moderate [facility] Work Phone: Laboratory - Specimen inform ationon 03-11-2022 Clarity (U) Cloudy [facility] Work Phone: Color (U) YELLOW [facility] Work Phone: Laboratory - Urinalysison Nitrite Ql (U) Negative [facility] Work Phone: Protein Ql (U) Trace [facility] Work Phone: MCHC Auto (RBC) [Mass/Vol]on 03-11-2022 MCHC (RBC) [Mass/Vol] 33.3 g/dL 32-36 [facility] Work Phone: Mucus LM Ql (Urine sed)on Mucus Ql (Urine sed) 0 SEEN /hpf [facility] Work Phone: Nitrite Test strip Ql (U)on 03-11-2022 Nitrite Ql (U) Negative Negative [facility] Work Phone: No Panel Informationon 03-11 Estimated Creatinine Clearance Calc 49.71 ml/min [facility] Work Phone: Estimated GFR (MDRD) Amer 55 mL/min >60 [facility] Work Phone: Comment on above: GFR Calc Estimated GFR (MDRD) Non-Af Amer 46 mL/min >60 [facility] Work Phone: Comment on above: Non- GFR Calc Troponin I High Sensitivity 8 pg/mL 3.0-54.0 [facility] Work Phone: Comment on above: Please Note: New Hodan t Units and Gender Specific Reference Ranges. For more information see Policy Stat Procedure [place] High Sensitivity Troponin (TNIH) and attachments. Urine Leukocytes Positive [facility] Work Phone: Urine Non-Hemolyzed Blood Non-Hemolyzed [facility] Work Phone: Platelets bldon 03-11-2022 Platelets (Bld) [#/Vol] 334 10*3/uL 150-450 [facility] Work Phone: Protein Test strip Ql (U)on 03-11-2022 Protein Ql (U) 15 mg/dl Negative [facility] Work Phone: Serum or plasma albumin azul urement (mass/volume)on 03-11-2022 Albumin [Mass/Vol] 3.5 g/dL 3.2-5.0 [facility] Work Phone: Serum or plasma albumin/glob ulin mass ratioon 03-11-2022 Albumin/Globulin [Mass ratio] 0.9 {ratio} 0.9-2.4 [facility] Work Phone: Serum or plasma calcium azul urement (mass/volume)on 03-11-2022 Calcium [Mass/Vol] 8.9 mg/dL 8.5-10.1 [facility] Work Phone: Serum or plasma creatinine m easurement (mass/volume)on 03-11-2022 Creatinine [Mass/Vol] 1.29 mg/dL 0.55-1.02 [facility] Work Phone: Comment on above: The validity of the calculated GFR & GFRAA in patients over 70 years has not been determined. Clinical correlation is essential. Serum or plasma urea nitroge n measurement (mass/volume)on 03-11-2022 Urea nitrogen [Mass/Vol] 17 mg/dL 7-18 [facility] Work Phone: Squamous epithelial cells de tection in urine sediment by light microscopyon 03-11-2022 Epithelial cells.squamous LM Ql (Urine sed) 0-5 SEEN /hpf 5-10 [facility] Work Phone: Thin prep Papanicolaou smear with manual screeningon 03-11-2022 Thin prep Papanicolaou smear with manual screening 54 U/L 15-37 [facility] Work Phone: Comment on above: Moderate Hemolysis, Result may be falsely increased. Thin prep Papanicolaou smear with manual screening 7 5-15 [facility] Work Phone: Urine blood detectionon 08-0 RBC Ql (U) Negative Negative [facility] Work Phone: RBC Ql (U) 0 SEEN /hpf 0-5 [facility] Work Phone: Urine clarityon 03-11-2022 Clarity (U) Clear Clear [facility] Work Phone: Urine color determinationon 03-11-2022 Color (U) Yellow Yellow [facility] Work Phone: Urine glucose detectionon Glucose Ql (U) Normal mg/dl Normal [facility] Work Phone: Urine leukocyte esterase det ection by dipstickon 03-11-2022 Leukocyte esterase Test strip Ql (U) 25 /ul Negative [facility] Work Phone: Urine pHon 03-11-2022 pH (U) 6.0 [pH] 5.0 - 8.0 [facility] Work Phone: Urine sediment bacteria coun t by microscopy (number/high power field)on 03-11-2022 Bacteria LM.HPF (Urine sed) [#/Area] 1 /[HPF] None Seen [facility] Work Phone: Urine specific gravity measu rementon 03-11-2022 Specific gravity (U) [Rel density] 1.015 1.002-1.030 [facility] Work Phone: Urobilinogen Auto test strip Ql (U)on 03-11-2022 Urobilinogen Ql (U) Normal mg/dl Normal [facility] Work Phone: CNOVon 03-04-2022 CNOV Office Visit (ORTHWS ) CHRISSY LAY ([id number]) 1965 F [place] Date Time Provider Department 03/04/22 3:30 PM ANDRY DUNNE During your visit today, we recorded the following information about you: Weight Height 79.4 kg 1.727 m Andry Dunne MD 03/19/2022 1:26 PM Signed Andry Dunne MD Department of Orthopaedics [facility] [address] [facility] [address] Dept: [phone] Dept March 04, 2022 CHIEF COMPLAINT: New and Pain of the Left Shoulder HPI Pt. presents with 2 year hx of left shoulder pain. She has not had surgery, but did have MRI 06-22-2021 of left shoulder which has been scanned. She was last seen by 06-05-2021 by Mary Dunog with injection prior to MRI. She also has had 5 surgeries of right shoulder, but this is [facility], and explained that we cannot treat her for this unless Dr. Dunne agrees to take on care and become provider of record. Currently she sees Dr. Jones and Dr. Bishop. She does not want to go back to [place] for care. AMB ROOMING INTAKE FLOWSHEET DATA [...] INSTRUCTIONS: With a shoulder specialist Ms. Chrissy Lay was advised as to contrast therapies and/or to take analgesics/anti-inflammatori es as needed and all contraindications were reviewed. OBJECTIVE: Ms. Chrissy Lay is a pleasant 56 year old in [...] subacromial bursa Informed Consent Consent Obtained: Verbal [place] Protocol A moment to CARE was completed. [...] THE CORACOCLAVICULAR LIGAMENTS MAY REPRESENT LOW-GRADE SPRAIN. Principal Gifts Officer: FERCHO Transcribe Date/Time: Jun 22 2021 4:06P Dictated by : NAYELY ZURITA MD This examination was interpreted and the report reviewed and electronically signed by: HENRY GILMORE MD on Jun 22 2021 5:18PM EST Results-Findings * * *Final Report* * * DATE OF EXAM: Jun 22 2021 3:21PM [facility] 0239 - MRI SHOULDER WO IVCON [...] with immediate onset of pain after injury S (more content not included)... Normal [facility] CNOVon 12-03-2021 CNOV Office Visit (ORTHMN ) CHRISSY LAY ([id number]) 1965 F [place] Date Time Provider Department 12/03/21 10:45 AM RODOLFO BISHOP During your visit today, we recorded the following information about you: Rodolfo Bishop MD 12/03/2021 3:58 PM Signed SERVICE DATE: Patient would like to see someone today. PCP: Chrissy Lay REFERRING PROVIDER: Sam Jones [id number] [id number] Consult requested for an opinion regarding the evaluation and treatment of the above patient. My final impression and recommendations will be communicated back to the requesting physician by way of the shared medical record or letter via US mail. CHIEF COMPLAINT: Patient presents with: Right Shoulder - New, Pain, Stiffness, Swelling, Weakness, Numbness/Tingling SUBJECTIVE HISTORY OF PRESENT ILLNESS: Chrissy Lay is a 56 year old right hand [...] broken ankle (left) -- 2006 Following with [facility] Previous Version Essential hypertension, benign Phoebe [...] fusion of cervical spine 04/25/2021 Mariely Kelley SUMMER COUNSELOR.DESIGN VERIFICATION ENGINEER No GERD (gastroesophageal reflux disease) 10/25/2019 Mariely Kelley APRN.DESIGN VERIFICATION ENGINEER No Nausea and vomiting 10/25/2019 Mariely Kelley APRN.DESIGN VERIFICATION ENGINEER No Mixed hyperlipidemia 10/25/2019 Mariely Kelley SUMMER COUNSELOR.DESIGN VERIFICATION ENGINEER No History of failed repair of rotator cuff 10/25/2019 Mariely Kelley SUMMER COUNSELOR.DESIGN VERIFICATION ENGINEER No Impingement syndrome of left shoulder 10/12/2019 [...] Vicky Louis MD No Climacteric 09/10/2013 Daniele Gudaalupe Asael No Diabetes mellitus type 2, controlled, without complications ([facility]) 05/18/2013 Ame Mujica No Peripheral neuropathy (Chronic) Brandon Osorio MD No Overview Signed 07/24/2012 12:10 AM by Brandon Huston REPLACED BY [facility] 07/22/2012 Insomnia Brandon Osorio MD No Overview Signed 03/01/2015 9:41 AM by Tomi Sexton Controlled substance agreement. 11/16 Arth (more content not included)... Normal [facility] CNOVon 11-22-2021 CNOV Office Visit (SPHTB) CHRISSY LAY ([id number]) 1965 F [place] Date Time Provider Department 11/22/21 11:30 AM SAM JONES [facility] During your visit today, we recorded the following information about you: Sam Jones MD 11/22/2021 11:51 AM Signed FOLLOW UP APPOINTMENT Chief Complaint:/Reason for Visit: Established patient; Scheduled follow up appointment for new or existing problem and/or post-surgical evaluation History of Present Illness: Chrissy Lay presents today for follow-up. She has an [...] - omeprazole (PRILOSEC) 20 mg capsule - lisinopril-hydrochlorothiazi de (PRINZIDE, ZESTORETIC) 20-25 mg per tablet - albuterol HFA (PROAIR HFA) 90 mcg/actuation inhaler - blood sugar diagnostic (ACCU-CHEK GENNY) test strip Problem List: reviewed and updated. Physical Exam: Constitutional: No acute distress, pleasant Resp: Non-labored breathing Vascular: No cyanosis Skin: No rashes noted Focused Musculoskeletal exam: General: Ambulates well; no other joint abnormalities noted. Motor: 5/5 IO, FPL, OP, hand die fitter, biceps, triceps, deltoid Sensory: SILT ulnar/median/radial distributions [...] plan: 1. Medication: Continue current medications. 2. Test(s)/Imaging/Referral(s): None. 3. Intervention: Patient is interested in another subacromial injection today. We will go ahead and perform this. She tolerated the procedure well without any complications. She can follow-up on with regard to that left shoulder on an as-needed basis. 4. Follow-up: As needed All of Chrissy Lay questions were answered today. She expressed a clear understanding of our discussion and is in agreement with the outlined treatment plan Narciso Rosario MD CC:Sam Thomas (more content not included)... [facility] CNOV Office Visit (SPHTB) CHRISSY LAY ([id number]) 1965 F [place] Date Time Provider Department 11/22/21 11:15 AM SAM JONES [facility] During your visit today, we recorded the following information about you: Sam Jones MD 11/22/2021 11:47 AM Addendum FOLLOW UP APPOINTMENT Chief Complaint:/Reason for Visit: Established patient; Scheduled follow up appointment for new or existing problem and/or post-surgical evaluation History of Present Illness: Chrissy Lay presents today for follow-up. She has an [...] Panic disorder without agoraphobia - Peripheral neuropathy REPLACED BY [facility] 07/22/2012 - Premenopausal menorrhagia 04/15/2013 - Reflex [...] - omeprazole (PRILOSEC) 20 mg capsule - lisinopril-hydrochlorothiazi de (PRINZIDE, ZESTORETIC) 20-25 mg per tablet - albuterol HFA (PROAIR HFA) 90 mcg/actuation inhaler - blood sugar diagnostic (ACCU-CHEK GENNY) test strip Problem List: reviewed and updated. Physical Exam: Constitutional: No acute distress, pleasant Resp: Non-labored breathing Vascular: No cyanosis Skin: No rashes noted Focused Musculoskeletal exam: General: Ambulates well; no other joint abnormalities noted. Motor: 5/5 IO, FPL, OP, hand die fitter, biceps, triceps, deltoid Sensory: SILT ulnar/median/radial distributions [...] plan: 1. Medication: Continue current medications. 2. Test(s)/Imaging/Referral(s): None. 3. Intervention: At this point regarding her right shoulder she has a massive cuff tear with significant atrophy. We will get her referred over to one of our colleagues Dr. Bishop for further evaluation and treatment. Additionally we wrote her a pain prescription for her break through pain 4. Follow-up: PRN All of Chrissy Lay questions were answered today. (more content not included)... Normal [facility] Amorphous sediment detection in urine sediment by light microscopyon 09-24-2021 Amorphous sediment LM Ql (Urine sed) 1+ [facility] Work Phone: Basophil percentageon 2021 Basophil percentage 5-10 SEEN /hpf [facility] Work Phone: Bilirubin Test strip Ql (U)o n 09-24-2021 Bilirubin Ql (U) 1 mg/dL Negative [facility] Work Phone: Comment on above: COLOR OF URINE MAY A FFECT DIPSTICK RESULTS. Ketones Test strip Ql (U)on 09-24-2021 Ketones Ql (U) 5 mg/dl Negative [facility] Work Phone: Mucus LM Ql (Urine sed)on Mucus Ql (Urine sed) 0 SEEN /hpf [facility] Work Phone: Nitrite Test strip Ql (U)on 09-24-2021 Nitrite Ql (U) Negative Negative [facility] Work Phone: Protein Test strip Ql (U)on 09-24-2021 Protein Ql (U) 100 mg/dl Negative [facility] Work Phone: Squamous epithelial cells de tection in urine sediment by light microscopyon 09-24-2021 Epithelial cells.squamous LM Ql (Urine sed) 0-5 SEEN /hpf [facility] Work Phone: Urine blood detectionon 09-05 RBC Ql (U) Negative Negative [facility] Work Phone: RBC Ql (U) 0 SEEN /hpf [facility] Work Phone: Urine clarityon 09-24-2021 Clarity (U) Sl. Cloudy Clear [facility] Work Phone: Urine color determinationon 09-24-2021 Color (U) Yellow [facility] Work Phone: Urine glucose detectionon Glucose Ql (U) Normal mg/dl Normal [facility] Work Phone: Urine leukocyte esterase det ection by dipstickon 09-24-2021 Leukocyte esterase Test strip Ql (U) 25 /ul Negative [facility] Work Phone: Urine pHon 09-24-2021 pH (U) 6.0 [pH] [facility] Work Phone: Urine sediment bacteria coun t by microscopy (number/high power field)on 09-24-2021 Bacteria LM.HPF (Urine sed) [#/Area] 1 /[HPF] None Seen [facility] Work Phone: Urine specific gravity measu rementon 09-24-2021 Specific gravity (U) [Rel density] 1.025 [facility] Work Phone: Urobilinogen Auto test strip Ql (U)on 09-24-2021 Urobilinogen Ql (U) 1 mg/dl Normal [facility] Work Phone: Absolute lymphocyte counton 08-24-2021 Lymphocytes Auto (Unsp spec) [#/Vol] 0.94 10*3/uL 0.83-4.51 [facility] Work Phone: Basophil percentageon 2021 Basophils/100 WBC (Bld) 0.2 % 0-1 [facility] Work Phone: Chloride [Moles/Vol] 101 mmol/L 98-107 [facility] Work Phone: Eosinophils/100 WBC (Bld) 0.2 % 0-5 [facility] Work Phone: Glucose [Mass/Vol] 240 mg/dL 74-106 [facility] Work Phone: Comment on above: Glucose result great er than or equal to 200 mg/dLsuggests DIABETES MELLITUS per A.D.A. criteria. Neutrophils (Bld) [#/Vol] 14.4 10*3/uL 2.0-7.7 [facility] Work Phone: Neutrophils/100 WBC (Bld) 88.4 % 47-70 [facility] Work Phone: Potassium [Moles/Vol] 3.4 mmol/L 3.5-5.1 [facility] Work Phone: Sodium [Moles/Vol] 133 mmol/L 136-145 [facility] Work Phone: WBC (Bld) [#/Vol] 16.3 10*3/uL 4.4-11.0 [facility] Work Phone: Blood erythrocytes count (nu mber/volume)on 08-24-2021 RBC (Bld) [#/Vol] 4.38 10*6/uL 4.2-5.4 [facility] Work Phone: Blood hemoglobin measurement (mass/volume)on 08-24-2021 Hemoglobin (Bld) [Mass/Vol] 13.6 g/dL 12.0-15.0 [facility] Work Phone: [phone] Blood lymphocytes/100 leukoc yteson 08-24-2021 Lymphocytes/100 WBC (Bld) 5.8 % 19-41 [facility] Work Phone: [phone] Blood monocytes/100 leukocyt eson 08-24-2021 Monocytes/100 WBC (Bld) 5.1 % 0-10 [facility] Work Phone: Blood platelet mean volumeon 08-24-2021 Platelet mean volume (Bld) [Entitic vol] 9.0 fL 6.2-12.0 [facility] Work Phone: Determination of erythrocyte mean corpuscular volume (MCV)on 08-24-2021 MCV (RBC) [Entitic vol] 94.7 fL 81-99 [facility] Work Phone: Hematocrit Auto (Bld) [Volum e fraction]on 08-24-2021 Hematocrit (Bld) [Volume fraction] 41.5 % 37-47 [facility] Work Phone: Laboratory - Chemistry and C hemistry - challengeon 08-24-2021 CO2 [Moles/Vol] 20.0 mmol/L 21.0-32.0 [facility] Work Phone: Magnesium [Mass/Vol] 1.0 mg/dL 1.6-2.6 [facility] Work Phone: Urea nitrogen/Creatinine [Mass ratio] 17.4 mg/mg 10-20 [facility] Work Phone: Laboratory - Hematology and Cell countson 08-24-2021 Erythrocyte distribution width (RBC) [Entitic vol] 45.1 fL 35.1-43.9 [facility] Work Phone: Erythrocyte distribution width (RBC) [Ratio] 13.0 % 11.6-14.6 [facility] Work Phone: Immature granulocytes/100 WBC (Bld) 0.300 % 0.0-0.9 [facility] Work Phone: Comment on above: IG% - Immature Granu locytes (promyelocytes, myelocytes and metamyelocytes) > 1% indicates that a LEFT SHIFT is Present. MCH (RBC) [Entitic mass] 31.1 pg 27.0-32.0 [facility] Work Phone: Nucleated RBC/100 WBC (Bld) [Ratio] 0 % 0-5 [facility] Work Phone: MCHC Auto (RBC) [Mass/Vol]on 08-24-2021 MCHC (RBC) [Mass/Vol] 32.8 g/dL 32-36 [facility] Work Phone: No Panel Informationon 08-24 Estimated Creatinine Clearance Calc 80.15 ml/min [facility] Work Phone: Estimated GFR (MDRD) Amer 95 mL/min >60 [facility] Work Phone: Comment on above: GFR Calc Estimated GFR (MDRD) Non-Af Amer 79 mL/min >60 [facility] Work Phone: Comment on above: Non- GFR Calc Platelets bldon 08-24-2021 Platelets (Bld) [#/Vol] 380 10*3/uL 150-450 [facility] Work Phone: Serum or plasma calcium azul urement (mass/volume)on 08-24-2021 Calcium [Mass/Vol] 9.5 mg/dL 8.5-10.1 [facility] Work Phone: Serum or plasma creatinine m easurement (mass/volume)on 08-24-2021 Creatinine [Mass/Vol] 0.80 mg/dL 0.55-1.02 [facility] Work Phone: Comment on above: The validity of the calculated GFR & GFRAA in patients over 70 years has not been determined. Clinical correlation is essential. Serum or plasma urea nitroge n measurement (mass/volume)on 08-24-2021 Urea nitrogen [Mass/Vol] 14 mg/dL 7-18 [facility] Work Phone: Thin prep Papanicolaou smear with manual screeningon 08-24-2021 Thin prep Papanicolaou smear with manual screening 12 5-15 [facility] Work Phone: Absolute lymphocyte counton 08-23-2021 Lymphocytes Auto (Unsp spec) [#/Vol] 2.87 10*3/uL 0.83-4.51 [facility] Work Phone: Basophil percentageon 2021 Basophil percentage 50-100 SEEN /hpf [facility] Work Phone: Basophils/100 WBC (Bld) 0.4 % 0-1 [facility] Work Phone: [phone] Chloride [Moles/Vol] 98 mmol/L 98-107 [facility] Work Phone: Eosinophils/100 WBC (Bld) 0.8 % 0-5 [facility] Work Phone: Glucose [Mass/Vol] 179 mg/dL 74-106 [facility] Work Phone: Comment on above: Fasting Glucose resu lt greater than or equal to 126 mg/dL suggests DIABETES MELLITUS per A.D.A. criteria. Neutrophils (Bld) [#/Vol] 7.6 10*3/uL 2.0-7.7 [facility] Work Phone: Neutrophils/100 WBC (Bld) 65.3 % 47-70 [facility] Work Phone: Potassium [Moles/Vol] 3.9 mmol/L 3.5-5.1 [facility] Work Phone: Comment on above: Slight Hemolysis, Re sult may be falsely increased. Sodium [Moles/Vol] 133 mmol/L 136-145 [facility] Work Phone: WBC (Bld) [#/Vol] 11.7 10*3/uL 4.4-11.0 [facility] Work Phone: Bilirubin Test strip Ql (U)o n 08-23-2021 Bilirubin Ql (U) Negative Negative [facility] Work Phone: Blood erythrocytes count (nu mber/volume)on 08-23-2021 RBC (Bld) [#/Vol] 4.29 10*6/uL 4.2-5.4 [facility] Work Phone: Blood hemoglobin measurement (mass/volume)on 08-23-2021 Hemoglobin (Bld) [Mass/Vol] 13.2 g/dL 12.0-15.0 [facility] Work Phone: Blood lymphocytes/100 leukoc yteson 08-23-2021 Lymphocytes/100 WBC (Bld) 24.6 % 19-41 [facility] Work Phone: Blood monocytes/100 leukocyt eson 08-23-2021 Monocytes/100 WBC (Bld) 8.2 % 0-10 [facility] Work Phone: Blood platelet mean volumeon 08-23-2021 Platelet mean volume (Bld) [Entitic vol] 8.8 fL 6.2-12.0 [facility] Work Phone: Culture, urineon 08-23-2021 Bacteria identified Cx Nom (U) Escherichia coli [facility] Work Phone: Determination of erythrocyte mean corpuscular volume (MCV)on 08-23-2021 MCV (RBC) [Entitic vol] 93.0 fL 81-99 [facility] Work Phone: Hematocrit Auto (Bld) [Volum e fraction]on 08-23-2021 Hematocrit (Bld) [Volume fraction] 39.9 % 37-47 [facility] Work Phone: Ketones Test strip Ql (U)on 08-23-2021 Ketones Ql (U) 5 mg/dl Negative [facility] Work Phone: Laboratory - Chemistry and C hemistry - challengeon 08-23-2021 CO2 [Moles/Vol] 24.0 mmol/L 21.0-32.0 [facility] Work Phone: Urea nitrogen/Creatinine [Mass ratio] 11.0 mg/mg 05-23 [facility] Work Phone: Laboratory - Hematology and Cell countson 08-23-2021 Erythrocyte distribution width (RBC) [Entitic vol] 44.6 fL 35.1-43.9 [facility] Work Phone: Erythrocyte distribution width (RBC) [Ratio] 13.1 % 11.6-14.6 [facility] Work Phone: Immature granulocytes/100 WBC (Bld) 0.700 % 0.0-0.9 [facility] Work Phone: Comment on above: IG% - Immature Granu locytes (promyelocytes, myelocytes and metamyelocytes) > 1% indicates that a LEFT SHIFT is Present. MCH (RBC) [Entitic mass] 30.8 pg 27.0-32.0 [facility] Work Phone: Nucleated RBC/100 WBC (Bld) [Ratio] 0 % 0-5 [facility] Work Phone: MCHC Auto (RBC) [Mass/Vol]on 08-23-2021 MCHC (RBC) [Mass/Vol] 33.1 g/dL 32-36 [facility] Work Phone: Mucus LM Ql (Urine sed)on Mucus Ql (Urine sed) RARE /hpf [facility] Work Phone: Nitrite Test strip Ql (U)on 08-23-2021 Nitrite Ql (U) Positive Negative [facility] Work Phone: No Panel Informationon 08-23 Estimated Creatinine Clearance Calc 41.37 ml/min [facility] Work Phone: Estimated GFR (MDRD) Amer 45 mL/min >60 [facility] Work Phone: Comment on above: GFR Calc Estimated GFR (MDRD) Non-Af Amer 37 mL/min >60 [facility] Work Phone: Comment on above: Non- GFR Calc Troponin I High Sensitivity 4 pg/mL 3.0-54.0 [facility] Work Phone: Comment on above: Please Note: New Hodan t Units and Gender Specific Reference Ranges. For more information see Policy Stat Procedure [place] High Sensitivity Troponin (TNIH) and attachments. Platelets bldon 08-23-2021 Platelets (Bld) [#/Vol] 378 10*3/uL 150-450 [facility] Work Phone: Protein Test strip Ql (U)on 08-23-2021 Protein Ql (U) 30 mg/dl Negative [facility] Work Phone: Serum or plasma calcium azul urement (mass/volume)on 08-23-2021 Calcium [Mass/Vol] 10.6 mg/dL 8.5-10.1 [facility] Work Phone: Serum or plasma creatinine m easurement (mass/volume)on 08-23-2021 Creatinine [Mass/Vol] 1.55 mg/dL 0.55-1.02 [facility] Work Phone: Comment on above: The validity of the calculated GFR & GFRAA in patients over 70 years has not been determined. Clinical correlation is essential. Serum or plasma urea nitroge n measurement (mass/volume)on 08-23-2021 Urea nitrogen [Mass/Vol] 17 mg/dL 7-18 [facility] Work Phone: Squamous epithelial cells de tection in urine sediment by light microscopyon 08-23-2021 Epithelial cells.squamous LM Ql (Urine sed) 0-5 SEEN /hpf [facility] Work Phone: Thin prep Papanicolaou smear with manual screeningon 08-23-2021 Thin prep Papanicolaou smear with manual screening 11 5-15 [facility] Work Phone: Urine blood detectionon 08-05 RBC Ql (U) 10 /ul Negative [facility] Work Phone: RBC Ql (U) 0-5 SEEN /hpf [facility] Work Phone: Urine clarityon 08-23-2021 Clarity (U) Cloudy Clear [facility] Work Phone: Urine color determinationon 08-23-2021 Color (U) Yellow Yellow [facility] Work Phone: Urine glucose detectionon Glucose Ql (U) Normal mg/dl Normal [facility] Work Phone: Urine leukocyte esterase det ection by dipstickon 08-23-2021 Leukocyte esterase Test strip Ql (U) 500 /ul Negative [facility] Work Phone: Urine pHon 08-23-2021 pH (U) 5.0 [pH] [facility] Work Phone: Urine sediment bacteria coun t by microscopy (number/high power field)on 08-23-2021 Bacteria LM.HPF (Urine sed) [#/Area] 4 /[HPF] None Seen [facility] Work Phone: Urine specific gravity measu rementon 08-23-2021 Specific gravity (U) [Rel density] 1.020 [facility] Work Phone: Urobilinogen Auto test strip Ql (U)on 08-23-2021 Urobilinogen Ql (U) Normal mg/dl Normal [facility] Work Phone: XR Shoulder - left 3 Viewson 06-05-2021 Radiology Study observation (narrative) [facility] IMPRESSION: 1. No significant left shoulder abnormality Principal Gifts Officer: PS[employer]ia Transcribe Date/Time: Jun 05 2021 10:22A Dictated by : NILDA GAYTAN MD This examination was interpreted and the report reviewed and electronically signed by: NILDA GAYTAN MD on Jun 05 2021 10:24AM [facility] DIVISION OF RADIOLOGY * * *Final Report* * * DATE OF EXAM: Jun 05 2021 10:21AM STX 5252 - XR SHLDR >/=3V AP/FLAVIO AP/OTHR LT / PROCEDURE REASON: Pain * * * * Physician Interpretation * * * * Left shoulder radiographs HISTORY: Pain TECHNIQUE: 3 views of the left shoulder COMPARISON: 10/12/2019 Results No acute fracture, erosions or avascular necrosis. Glenohumeral joint space is preserved. Acromioclavicular joint is intact. No periarticular soft tissue abnormality. Chronic bony hypertrophy and sclerosis noted at the left first costovertebral junction. Postsurgical changes noted at the lower cervical spine. DIVISION OF RADIOLOGY Provider, [facility] - 06/05/2021 * * *Final Report* * * DATE OF EXAM: Jun 05 2021 10:21AM STX 5252 - XR SHLDR >/=3V AP/FLAVIO AP/OTHR LT / PROCEDURE REASON: Pain * * * * Physician Interpretation * * * * Left shoulder radiographs HISTORY: Pain TECHNIQUE: 3 views of the left shoulder COMPARISON: 10/12/2019 Results No acute fracture, erosions or avascular necrosis. Glenohumeral joint space is preserved. Acromioclavicular joint is intact. No periarticular soft tissue abnormality. Chronic bony hypertrophy and sclerosis noted at the left first costovertebral junction. Postsurgical changes noted at the lower cervical spine. IMPRESSION IMPRESSION: 1. No significant left shoulder abnormality Principal Gifts Officer: PSCB Transcribe Date/Time: Jun 05 2021 10:22A Dictated by : NILDA GAYTAN MD This examination was interpreted and the report reviewed and electronically signed by: NILDA GAYTAN MD on Jun 05 2021 10:24AM EST [facility] XR Shoulder - left 3 ViewsOr dered By: [facility] Provider on 06-05-[address] [facility] ANES POSTPROC EVALon 021 ANES POSTPROC EVAL HNO ID: [id number] Author: Reymundo Gonzalez MD Service: ? Author Type: Physician Type: Anesthesia Postprocedure Evaluation Filed: 05/02/2021 2:04 PM Note Text: POST ANESTHESIA EVALUATION NOTE : 1965 Procedure Summary Date: 05/02/21 Room / Location: [place] [address] / [facility] Anesthesia Start: 1046 Anesthesia Stop: 1156 Procedure: ARTHROSCOPY SHOULDER W/ DEBRIDEMENT EXTENSIVE 3 OR MORE DISCRETE STRUCTURES (Right Shoulder) Diagnosis: Traumatic complete tear of right rotator cuff, subsequent encounter Surgeons: Sam Jones MD Responsible Provider: Reymundo Gonzalez MD Anesthesia Type: general ASA Status: 2 Anesthesia Type: general Last vitals Vitals Value Taken Time BP 123/72 05/02/21 1230 Temp 37.2 ?C (98.9 ?F) 05/02/21 1230 Pulse 108 05/02/21 1236 Resp 26 05/02/21 1236 SpO2 92 % 05/02/21 1236 Vitals shown include unvalidated device data. Post Anesthesia Patient Status Patient Evaluation: bedside. Anticipated Disposition: phase 2 then home. Neurological Status: aware and responsive. Pulmonary Status: breathing comfortably on room air Airway Control: returned to baseline unsupported. Cardiovascular Status: stable. Pain Management: clinically adequate Postoperative Hydration: acceptable. Intraoperative Events: no significant anesthesia events Post Operative Nausea/Vomiting Status: no significant post operative nausea or vomiting Anesthetic Observations: Recommendation: continue current plan of care. Anesthesia Observations No Documentation SIGNATURE: Reymundo Gonzalez MD PATIENT NAME: Chrissy Lay DATE: May 02, 2021 TIME: 2:04 PM CSN: [id number] [facility] ANES PRE-OPon 05-02-2021 [facility] PRE-OP HNO ID: [id number] Author: Richie Tao III, MD Service: Anesthesiology Author Type: Anesthesiologist Type: Anesthesia Preprocedure Evaluation Filed: 05/02/2021 10:17 AM Note Text: ANESTHESIOLOGY DAY OF SURGERY NOTE : 1965 Procedure(s) (LRB): ARTHROSCOPY SHOULDER ROTATOR CUFF (Right) Surgeon(s): MD Riana Cabrera MD Estimated body mass index is 27.22 kg/m? as calculated from the following: Height as of this encounter: 172.7 cm (5' 8). Weight as of this encounter: 81.2 kg (179 lb). Most recent hematocrit and potassium results: Hematocrit 38.6 04/18/2021 Potassium 4.7 04/18/2021 Relevant Problems CARDIO (+) Essential hypertension, benign (+) HEMORRHOIDS INTERNAL ENDO (+) Diabetes mellitus type 2, controlled, without complications (HCC) GI (+) GERD (gastroesophageal reflux disease) PULMONARY (+) Mild intermittent asthma without complication Other (+) Arthritis (+) Right lateral epicondylitis I - PHYSICAL EVALUATION AIRWAY Patient intubated: No. Tracheostomy tube not present Mallampati: I. TM distance: >3 FB. Neck ROM: full ROM without neurological symptoms. Mouth opening: adequate. Short neck: no. Thick neck: no DENTAL Dental findings: teeth intact. Additional exam findings: yes. CARDIOVASCULAR Normal cardiovascular observations. PULMONARY Normal pulmonary observations. II - ANESTHESIA PLAN ASA Score: 2 Anesthetic Plan: general Airway type: LMA The patient is not a current smoker. NPO Status: adequate Administration of chronic beta angelina medication not planned. Monitoring plan: standard ASA. Postoperative analgesic plan: multimodal analgesia. Anesthetic Risks, Benefits, Alternatives, Personnel Discussed. Consent obtained from: patient.Patient / Surrogate agrees to blood products: blood products not planned DNR status not reviewed with patient and/or family prior to surgery. Significant changes in the patient condition since the History and Physical, not otherwise documented in primary service progress note: no. Potential Anesthesia issues that may suggest increased risk of complications or contraindication to planned procedure: none. Vitals Value Taken Time BP 129/88 05/02/21 0859 Pulse Resp 20 05/02/21 0859 Temp 37.2 ?C (99 ?F) 05/02/21 0929 SpO2 97 % 05/02/21 0933 Vitals shown include unvalidated device data. Facility-Administered Medications as of 05/02/2021 Medication Dose Route Frequency - lidocaine 10 mg/mL (1 %) 1-2 mg injection (XYLOCAINE) 0.1-0.2 mL INTRADERMAL PRN - lactated ringers iv infusion 5-30 mL/hr INTRAVENOUS CONTINUOUS - ceFAZolin iv piggyback 2 g in D5W (iso-osmotic) 100 mL (ANCEF) 2 g INTRAVENOUS Pre-Op Once - acetaminophen 1,000 mg tab(s) (TYLENOL) 1,000 mg ORAL Pre-Op Once Outpatient Medications as of 05/02/2021 Medication Sig - fluconazole (DIFLUCAN) 100 mg tablet Take 1 tablet by mouth once daily. - estradiol (ESTRACE) 1 mg tablet Take 1.5 tablets by mouth once daily. - cholecalciferol, vitamin D3, (VITAMIN D-3) 10 mcg (400 unit) cap Take 400 Units by mouth once daily. - ezetimibe (ZETIA) 10 mg tablet Take 10 mg by mouth once daily. - omeprazole (PRILOSEC) 20 mg capsule TAKE 1 CAPSULE BY MOUTH TWICE DAILY 1/2 HOUR BEFORE A MEAL - lisinopril-hydrochlorothiazi de (PRINZIDE, ZESTORETIC) 20-25 mg per tablet - albuterol HFA (PROAIR HFA) 90 mcg/actuation inhaler Inhale 2 Puffs as instructed every 4 hours as needed. - oxyCODONE-acetaminophen (PERCOCET) 5-325 mg tablet Take 1 tablet by mouth every 8 hours as needed for pain. for pain. - PNV no.95/ferrous fum/folic ac ( ORAL) Take by mouth. - ondansetron (ZOFRAN) 4 mg tablet TAKE 1 TABLET BY MOUTH EVERY 8 HOURS NEEDED NAUSEA - LORazepam (ATIVAN) 1 mg tablet 1 mg. - blood sugar diagnostic (ACCU-CHEK GENNY) test strip testing up to three times daily I have interviewed and examined the patient. I have reviewed the medical record and/or the pre-anesthesia evaluation, pertinent labs, and test results. This contains updated information obtained within 48 hours of Surgery/Procedure. SIGNATURE: Richie Tao MD PATIENT NAME: Chrissy Lay DATE: May 02, 2021 TIME: 10:16 AM CSN: [id number] [facility] BRIEF OP NOTon 05-02-2021 BRIEF OP NOT HNO ID: [id number] Author: Riana Brown MD Service: Orthopaedic Surgery Author Type: Fellow Type: Brief Op Note Filed: 05/02/2021 11:56 AM Note Text: BRIEF OPERATIVE NOTE SURGERY DATE: 05/02/2021 Incision/Procedure Start Time: 11:13am Incision Close/Procedure End Time: 11:48am Surgeon(s)/Proceduralist(s) and Art Gallery Director(s): Sam Jones MD, attending Riana Brown MD - fellow Procedures: Right shoulder arthroscopic debridement Anesthesia: General Findings: massive rotator cuff tear of the supraspinatus, infraspinatus, and subscapularis, grade 4 chondral changes in the glenoid and humeral head Estimated Blood Loss: 5 mls Specimens: None Complications: None Preop Diagnosis: Right shoulder rotator cuff tear Postop Diagnosis: Right shoulder rotator cuff tear arthropathy SIGNATURE: Riana Brown MD PATIENT NAME: Chrissy Lay DATE: May 02, 2021 TIME: 8:56 AM [facility] HISTORY PHYSICALon HISTORY PHYSICAL HNO ID: [id number] Author: Riana Brown MD Service: Orthopaedic Surgery Author Type: Fellow Type: HANDP Filed: 05/02/2021 8:56 AM Note Text: Attestation signed by Sam Jones MD at 05/02/2021 12:40 PM Agree with above. UPDATED HISTORY AND PHYSICAL EXAMINATION SERVICE DATE: 05/02/2021 SERVICE TIME: 8:56am PHYSICAL EXAM MUST BE COMPLETED ON ADMISSION The History and Physical (completed in the past 30 days) has been reviewed and the patient has been examined. The contents accurately reflect the patient's condition with the following additions or revisions since the HANDP was completed. Examination indicates no changes. This HANDP can be found in the Electronic Medical Record dated 04/25/21. SIGNATURE: Riana Brown MD PATIENT NAME: Chrissy Lay DATE: May 02, 2021 TIME: 8:56 AM [facility] NURSING PROGon 05-02-2021 NURSING PROG HNO ID: [id number] Author: Ama Dang RN Service: Nursing Author Type: Registered Nurse Type: Nursing Progress Note Filed: 05/02/2021 12:23 PM Note Text: PATIENT EDUCATION TOPIC: PROCEDURE / SURGERY: Post-op Teaching: Med Administration, Symptom Management and Wound Care PATIENT NAME: Chrissy Lay [facility] READINESS TO LEARN COGNITIVE ABILITY: Alert and oriented MOTIVATION TO LEARN: Interested FAMILY SUPPORT: High - Very involved in pt care INSTRUCTION PROVIDED TO: Patient and Significant Other PATIENT LEARNS BEST BY: Individual Instruction Written Instruction - Hand-outs Verbal Instruction FACTORS AFFECTING LEARNING: None PHYSICAL LIMITATIONS AFFECTING LEARNING: None LEARNING RESPONSE DIAGNOSIS: ADULT: surgery PATIENT/FAMILY RESPONSE: Verbalizes understanding of: POST-OPERATIVE INSTRUCTIONS-Correct actions to take to reduce postoperative complications METHOD OF INSTRUCTION: Individual instruction Written instruction - handouts Verbal instruction FOLLOW-UP PLAN: Complete - No need for follow-up INSTRUCTIONAL AIDS USED: NA SUPPLEMENTAL MATERIAL PROVIDED TO PATIENT: None REFERRAL (RECOMMENDATION): None Electronically Signed By: Ama Dang [facility] NURSING PROG HNO ID: [id number] Author: Ama Dang RN Service: Nursing Author Type: Registered Nurse Type: Nursing Progress Note Filed: 05/02/2021 12:22 PM Note Text: Patient and significant other speaking with Dr. Jones at this time. Vital signs remain stable, will continue to monitor. Normal [facility] NURSING PROG HNO ID: [id number] Author: Shana Rene RN Service: Nursing Author Type: Registered Nurse Type: Nursing Progress Note Filed: 05/02/2021 9:49 AM Note Text: CHEPE Presley at bedside speaking with pt. Gildardo is aware of pt's c/o., awaiting urine results from pt's PCP. [facility] NURSING PROG HNO ID: [id number] Author: Shana Rene RN Service: Nursing Author Type: Registered Nurse Type: Nursing Progress Note Filed: 05/02/2021 9:26 AM Note Text: Pt c/o frequency, urgency, mild pressure and pain with urination. Denies any back discomfort or blood tinged urine. Pt saw PCP yesterday for this c/o and urine obtained, per pt. Pt also stated, I had a UTI 2-3 weeks ago and was treated with Antibiotics. Temperature obtained 100.0 f with repeat 99.7 f. See other vital signs. Skin warm to touch and dry. aware of the above c/o. [facility] NURSING PROG HNO ID: [id number] Author: Shana Rene RN Service: Nursing Author Type: Registered Nurse Type: Nursing Progress Note Filed: 05/02/2021 8:57 AM Note Text: PRE OP LEARNING ASSESSMENT PROCEDURE/SURGERY: SURGERY: right shoulder READINESS TO LEARN COGNITIVE ABILITY: Alert and oriented MOTIVATION TO LEARN: Eager Interested FAMILY SUPPORT: High - Very involved in pt care PATIENT LEARNS BEST BY: Written Instruction - Hand-outs Verbal Instruction FACTORS AFFECTING LEARNING: None PHYSICAL LIMITATIONS AFFECTING LEARNING: None Electronically Signed By: Shana Rene RN In Department: [facility] AMBULATORY SURGERY - [facility] OPERATIVE NOon 05-02-2021 OPERATIVE NO HNO ID: [id number] Author: Sam Jones MD Service: Orthopaedic Surgery Author Type: Physician Type: Operative Report Filed: 05/02/2021 12:00 PM Note Text: Chrissy Lay [id number] LOG ID: [id number] Surgery/Procedure Date: 05/02/2021 Incision/Procedure Start Time: 11:13 AM Incision Close/Procedure End Time: 11:48 AM Surgeon(s)/Proceduralist(s) and Art Gallery Director(s): Surgeon(s) and Role: * Sam Jones MD - Primary * Riana Brown MD - Fellow Physician Art Gallery Director: Laverne Duong PA-C Anesthesia: General Pre-Op/Pre-Procedure Diagnosis: Chronic complete rotator cuff tear right shoulder. History of rotator cuff repair right shoulder. Post-Op/Post-Procedure Diagnosis: Rotator cuff tear arthropathy right shoulder. Procedure: Arthroscopic Debridement Right shoulder Additional Procedure(s): None Operative Indications: Persistent symptoms despite approriate non-operative treatment Operative Findings: Advanced rotator cuff tear arthropathy with diffuse grade IV chondromalacia of both the glenoid and humeral head. High riding humeral head articulating under the acromion with acetabularization. Postoperative scar tissue seen diffusely in the subacromial space. Absent biceps tendon. No discernible infraspinatus, supraspinatus or subscapularis. DESCRIPTION OF OPERATION: The patient was identified by name and birthdate in the pre-operative area and the operative site marked by the surgical team. After regional anesthesia, she was brought to the operating room and placed into the supine on the operating table. Examination was performed demonstrating full passive motion. The patient was subsequently placed into the lateral decubitus position. The arm was prepped and draped in the usual sterile fashion. Time-out and site identification were performed. The arthroscope was introduced into the glenohumeral joint through a standard posterior portal. Outflow was established in the rotator interval with a small cannula. A complete diagnostic arthroscopy was performed demonstrating the above findings. The glenohumeral joint and the subacromial space were confluent as there was no remaining rotator cuff tendon other than the teres minor. The humeral head clearly was riding high with acetabularization of the underside of the acromion. There is a lot of scar tissue anteriorly and posteriorly. Extensive debridement of all the scar tissue was performed. There was no remaining rotator cuff tendon to be debrided. Synovectomy was performed where indicated. Appropriate chondroplasty was performed as indicated in affected areas of the glenoid. There were 2 pea-sized loose bodies caught up in the anterior scar tissue. These were removed with the grasper. The joint was flushed until clear of any debris. The arthroscope, instruments and cannulas were removed. Incisions were closed in routine fashion. A sterile bandage was applied. The arm was placed into a sling. The patient was awakened and transported to the recovery room in satisfactory condition, having tolerated the procedure well. Implants: * No implants in log * Estimated Blood Loss: 0 ml Specimens: None Complications: None I/primary surgeon/proceduralist performed the procedure with assistance. Fellow closed, under direct supervision and the remainder of the procedure was performed by the primary surgeon/proceduralist with assistance. POSTOPERATIVE PLAN: Sling as needed for comfort. Limited weightbearing on the shoulder. SIGNATURE: Sam Jones MD PATIENT NAME: Chrissy Lay DATE: May 02, 2021 TIME: 11:56 AM PAGER/CONTACT #: [facility] APTTon 02-21-2017 aPTT 22.2 s Normal 20.0-30.5 [facility] Comment on above: Result Comment: NOTE : The therapeutic time for Heparin anticoagulation,based on Xa activity inhibition, is an APTT of 46-80seconds. Performed By: #### H EMOG, APTT, PT, TROPN, CK3 ####[address] [address] BMP, Whole Blood (POCT)on Anion gap 8.00 mmol/L Normal [facility] Comment on above: Performed By: #### B MPI ####[address] [address] BUN (urea nitrogen) 13 mg/dL Normal 4-22 [facility] Comment on above: Performed By: #### B MPI ####[address] [address] Calcium, Ionized WB 4.5 mg/dL Normal 4.3-5.2 [facility] Comment on above: Result Comment: Perf ormed by [employer] CLIA ID: [id number] Performed By: #### B MPI ####[address] [address] Chloride 102 mmol/L Normal 98-114 [facility] Comment on above: Performed By: #### B MPI ####[address] [place] [address] CO2 28 mmol/L Normal 21-29 [facility] Comment on above: Performed By: #### B MPI ####[address] [address] [place] [address] Creatinine 0.70 mg/dL Normal 0.60-1.30 [facility] Comment on above: Performed By: #### B MPI ####[address] [address] [place] [address] eGFR (black) mL/min/{1.73_m2} Normal >60 [facility] Comment on above: Performed By: #### B MPI ####[address] [address] [place] [address] eGFR (non-black) mL/min/{1.73_m2} Normal >60 [facility] Comment on above: Result Comment: Sour ce- MDRD equation with creatinine calibration to IDMS(NKDEP)eGFR not recommended for drug dose adjustment Performed By: #### B MPI ####[address] [address] [place] [address] Glucose mass conc 189 mg/dL High 70-100 [facility] Comment on above: Performed By: #### B MPI ####[address] [place] [address] Potassium molar conc 4.0 mmol/L Normal 3.4-5.1 [facility] Comment on above: Performed By: #### B MPI ####[address] [place] [address] Sodium 138 mmol/L Normal 133-145 [facility] Comment on above: Performed By: #### B MPI ####[address] [address] [place] [address] CKon 02-21-2017 Creatine kinase (CK) 57 U/L Normal 26-192 [facility] Comment on above: Performed By: #### H EMOG, APTT, PT, TROPN, CK3 ####[address] [address] [place] [address] CT Head or Brain w/o Contras ton 02-21-2017 CT Head or Brain w/o Contrast Patient Name: CHRISSY LAY CT Exam Date/Time 02/20/2017 22:07:[address] Head or Brain w/o Contrast Ordering Physician BRANDON KIRK Accession Number [id number] CPT4 Codes 18604 () Reason For Exam Stroke like symptoms Report Clinical EXAMINATION: CT of the Head without Contrast. COMPARISON: None. REASON FOR STUDY: Stroke like symptoms. TECHNIQUE: Contiguous multiplanar 3 mm images were extended from the skull base through the vertex. FINDINGS: Brain: Segundo-white matter differentiation appears normal. No focal parenchymal abnormality or mass effect is observed. Ventricles And Cisterns: The ventricular system, cisterns and sulci are within normal limits. Extra-Axial Spaces: No extra-axial abnormality is observed. Orbits: The orbits are symmetrical and within normal limits. Sinuses: Visualized paranasal sinuses and mastoid air cells are pneumatized. No mucosal thickening or fluid accumulation is observed. Skull And Scalp: No skull defect is observed. There is no appreciable scalp lesion. CONCLUSION(S): No evidence of acute cerebrovascular accident or intracranial hemorrhage. CTR FINDINGS: Findings were relayed to Dr. Chamorro of the Emergency Department verbally immediately after completion of the study approximately 2200 hours 02/20/2017. Report Dictated on Final Dictated: 02/20/2017 10:24 pm Dictating Physician: MD BOUDREAUX B NELSON Signed Date and Time: 02/20/2017 10:26 pm Signed by: MD BOUDREAUX B NELSON Transcribed Date and Time: 02/20/2017 10:24 Normal [facility] CULTURE URINEon 02-21-2017 CULTURE URINE Specimen Source Comment:Urine, clean catch [facility] Patient name: CHRISSY LAY M.R.N.: [id number] : 1965 Age: 51 Sex: F Ord. Physician: NENA VILLAR Location: [id number]-[id number] Copy to: NENA VILLAR DISCHARGED: 02/21/17 Adm. Date: 02/20/17 MICROBIOLOGYORDER#: [id number] COLLECTED: 02/20/17 22:36SOURCE: Urine Urine YESENIA Ramsey O M M E N T S Specimen Source Comment:Urine, clean catchCULTURE URINE FINAL 02/21/17 23:51002/21/17No growth (<1,000 CFU/ml). Normal [facility] Comment on above: Performed By: #### B GLU ####[place] [address] Glucose,Bedsideon 02-21-2017 Glucose mass conc 167 mg/dL High 70-100 [facility] Comment on above: Result Comment: Test performed by glucose meter. Results may be 10%-15% lowerthan serum/plasma values. (CLIA ID [id number]) Performed By: #### B GLU ####[place] [address] Hemogramon 02-21-2017 Erythrocyte distribution width Auto Ratio (RBC) 13.8 % Normal 11.5-14.5 [facility] Comment on above: Performed By: #### H EMOG, APTT, PT, TROPN, CK3 ####[place] [address] Erythrocytes (RBC) 4.41 10*6/uL Normal 3.80-5.20 [facility] Comment on above: Performed By: #### H EMOG, APTT, PT, TROPN, CK3 ####[place] [address] Hematocrit (HCT) 40.1 % Normal 35.0-47.0 [facility] Comment on above: Performed By: #### H EMOG, APTT, PT, TROPN, CK3 ####[place] [address] Hemoglobin mass conc (Bld) 13.2 g/dL Normal 11.7-16.0 [facility] Comment on above: Performed By: #### H EMOG, APTT, PT, TROPN, CK3 ####[address] [address] MCH 29.9 pg Normal 26.0-34.0 [facility] Comment on above: Performed By: #### H EMOG, APTT, PT, TROPN, CK3 ####[address] [address] MCHC mass conc (RBC) 32.9 % Normal 32.0-36.0 [facility] Comment on above: Performed By: #### H EMOG, APTT, PT, TROPN, CK3 ####[address] [address] MCV 90.8 fL Normal 79.0-98.0 [facility] Comment on above: Performed By: #### H EMOG, APTT, PT, TROPN, CK3 ####[address] [address] Platelet mean volume (PMV) 7.6 fL Normal 7.4-10.4 [facility] Comment on above: Performed By: #### H EMOG, APTT, PT, TROPN, CK3 ####[address] [address] Platelets 322 10*3/uL Normal 140-440 [facility] Comment on above: Performed By: #### H EMOG, APTT, PT, TROPN, CK3 ####[address] [address] WBC (Leukocytes) 8.7 10*3/uL Normal 3.6-10.7 [facility] Comment on above: Performed By: #### H EMOG, APTT, PT, TROPN, CK3 ####[address] [address] Prothrombin Timeon 7 INR Coag RelTime (PPP) 0.9 {INR} Normal 0.9-1.1 [facility] Comment on above: Result Comment: Sarbjit mmended Anticoagulant Therapy:SEE BELOW----- INR of 2.0 - 3.0 :- Prophylaxis of Venous Thrombosis (high-risk surgery)- Treatment of Venous Thrombosis- Treatment of Pulmonary Embolism (Includes tissue heartvalves, Acute Myocardial Infarction to prevent systemicembolism, Valvular Heart Disease, and Atrial Fibrillation)----- INR of 2.5 - 3.5 :- Mechanical Prosthetic Valves (high risk)- If oral anticoagulant therapy is used to preventMyocardial Infarction Performed By: #### H EMOG, APTT, PT, TROPN, CK3 ####[place] [address] Prothrombin time (PT) Coag time (PPP) 9.4 s Normal 9.0-12.0 [facility] Comment on above: Result Comment: . Performed By: #### H EMOG, APTT, PT, TROPN, CK3 ####[place] [address] Troponin Ion 02-21-2017 Troponin I.cardiac mass conc ng/mL Normal 0.000-0.045 [facility] Comment on above: Result Comment: 0.04 6 - 0.400 = Indeterminate> 0.400 = Consider Myocardial Injury Performed By: #### H EMOG, APTT, PT, TROPN, CK3 ####[place] [address] Urinalysis,Macroon 7 Bilirubin (direct) Negative Normal Negative [facility] Comment on above: Performed By: #### U AMAC, UAMIC ####[place] [address] Ketone,Urine Negative Normal Negative [facility] Comment on above: Performed By: #### U AMAC, UAMIC ####[place] [address] Occult Blood,Ur 25 {RBC}/uL Normal Negative [facility] Comment on above: Performed By: #### U AMAC, UAMIC ####[place] [address] Specific [place],Urine 1.010 Normal 1.005-1.030 [facility] Comment on above: Performed By: #### U AMAC, UAMIC ####[place] [address] Total Protein,Urine Negative Normal Negative [facility] Comment on above: Performed By: #### U AMAC, UAMIC ####[address] [address] [place] [address] Urine, appearance clear Normal Clear [facility] Comment on above: Performed By: #### U AMAC, UAMIC ####[address] [address] [place] [address] Urine, color p. yel Normal Lt. Yellow [facility] Comment on above: Performed By: #### U AMAC, UAMIC ####[address] [address] [place] [address] Urine, glucose presence NORM Normal Negative [facility] Comment on above: Performed By: #### U AMAC, UAMIC ####[address] [place] [address] Urine, nitrite presence Negative Normal Negative [facility] Comment on above: Performed By: #### U AMAC, UAMIC ####[address] [address] [place] [address] Urine, pH 7.0 [pH] Normal 5.0-8.0 [facility] Comment on above: Performed By: #### U AMAC, UAMIC ####[address] [address] [place] [address] Urine, urobilinogen NORM Normal 0-1 [facility] Comment on above: Performed By: #### U AMAC, UAMIC ####[address] [address] [place] [address] WBC (Leukocytes) Negative Normal Negative [facility] Comment on above: Performed By: #### U AMAC, UAMIC ####[address] [address] [place] [address] Urinalysis,Microscopicon Urine, bacteria in sediment Few (1-5) Normal Negative [facility] Comment on above: Performed By: #### U AMAC, UAMIC ####[address] [address] [place] [address] Urine, epithelial cells in sediment 0-2 Normal 3-5 [facility] Comment on above: Performed By: #### U AMAC, UAMIC ####[address] [address] [place] [address] Urine, erythrocytes in sediment by area 0-2 Normal 0-2 [facility] Comment on above: Performed By: #### U AMAC, UAMIC ####[address] [place] [address] Urine, leukocytes in sedmiment 0-2 Normal 0-5 [facility] Comment on above: Performed By: #### U AMAC, UAMIC ####[address] [place] [address] Lab Report: Bedside Glucoseo n 12-24-2016 Glucose 130 mg/dL High 70-110 [facility] Work Phone: Office Visit: Consult Colono scopy and EGDon 12-18-2016 Dietary management education, guidance, and counseling (procedure) yes Invalid Interpretation Code [facility] Work Phone: Documentation of current medications (procedure) Done Invalid Interpretation Code [facility] Work Phone: Fall risk assessment No Invalid Interpretation Code [facility] Work Phone: Tobacco smoking status NHIS Never Invalid Interpretation Code [facility] Work Phone: Tobacco smoking status NHIS Never smoker [facility] Work Phone: Tobacco use [facility] Never smoker Invalid Interpretation Code [facility] Work Phone: Office Visit: Consult Colono scopy and EGDon 08-07-2015 MG Breast screening Normal Bilateral Invalid Interpretation Code [facility] Work Phone: Office Visit: Consult Colono scopy and EGDon 08-08-2014 General categories Cyto stain (Cvx/Vag) [Interp] Normal Invalid Interpretation Code [facility] Work Phone: Culture, urine Bacteria identified Cx Nom (U) Escherichia coli [facility] Work Phone: No Panel Information [facility] Vital Signs Date Time Vital Sign Value Performing Clinician Facility 08-14-2024 11:20-0500 Body temperature 98.42 [degF] ROSA BADILLO SUMMER COUNSELOR-DESIGN VERIFICATION ENGINEER [facility] 08-14-2024 11:20-0500 Diastolic Blood Pressure Non-Invasive 79 mm[Hg] ROSA KAPPER SUMMER COUNSELOR-DESIGN VERIFICATION ENGINEER [facility] 08-14-2024 11:20-0500 Heart rate 88 /min ROSA KAPPER SUMMER COUNSELOR-DESIGN VERIFICATION ENGINEER [facility] 08-14-2024 11:20-0500 Reason For Taking VItal Signs ROSA KAPPER SUMMER COUNSELOR-DESIGN VERIFICATION ENGINEER [facility] 08-14-2024 11:20-0500 Respiratory rate 18 /min ROSA KAPPER SUMMER COUNSELOR-DESIGN VERIFICATION ENGINEER [facility] 08-14-2024 11:20-0500 Systolic Blood Pressure Non-Invasive 146 mm[Hg] ROSA KAPPER SUMMER COUNSELOR-DESIGN VERIFICATION ENGINEER [facility] 08-14-2024 07:20-0500 Body temperature 98.24 [degF] ROSA KAPPER SUMMER COUNSELOR-DESIGN VERIFICATION ENGINEER [facility] 08-14-2024 07:20-0500 Diastolic Blood Pressure Non-Invasive 89 mm[Hg] ROSA KAPPER SUMMER COUNSELOR-DESIGN VERIFICATION ENGINEER [facility] 08-14-2024 07:20-0500 Heart rate 78 /min ROSA KAPPER SUMMER COUNSELOR-DESIGN VERIFICATION ENGINEER [facility] 08-14-2024 07:20-0500 Reason For Taking VItal Signs ROSA KAPPER SUMMER COUNSELOR-DESIGN VERIFICATION ENGINEER [facility] 08-14-2024 07:20-0500 Respiratory rate 18 /min ROSA KAPPER SUMMER COUNSELOR-DESIGN VERIFICATION ENGINEER [facility] 08-14-2024 07:20-0500 Systolic Blood Pressure Non-Invasive 137 mm[Hg] ROSA KAPPER SUMMER COUNSELOR-DESIGN VERIFICATION ENGINEER [facility] 08-14-2024 03:35-0500 Body temperature 98.24 [degF] ROSA BADILLO SUMMER COUNSELOR-DESIGN VERIFICATION ENGINEER [facility] 08-14-2024 03:35-0500 Diastolic Blood Pressure Non-Invasive 76 mm[Hg] ROSA BADILLO SUMMER COUNSELOR-DESIGN VERIFICATION ENGINEER [facility] 08-14-2024 03:35-0500 Heart rate 86 /min ROSA ABY SUMMER COUNSELOR-DESIGN VERIFICATION ENGINEER [facility] 08-14-2024 03:35-0500 Reason For Taking VItal Signs ROSA BADILLO SUMMER COUNSELOR-DESIGN VERIFICATION ENGINEER [facility] 08-14-2024 03:35-0500 Respiratory rate 18 /min ROSA BADILLO SUMMER COUNSELOR-DESIGN VERIFICATION ENGINEER [facility] 08-14-2024 03:35-0500 Systolic Blood Pressure Non-Invasive 138 mm[Hg] ROSA BADILLO SUMMER COUNSELOR-DESIGN VERIFICATION ENGINEER [facility] 08-12-2024 21:43-0500 Body height 172.7 cm ROSA BADILLO SUMMER COUNSELOR-DESIGN VERIFICATION ENGINEER [facility] 08-12-2024 21:43-0500 Body weight 102 kg ROSA BADILLO SUMMER COUNSELOR-DESIGN VERIFICATION ENGINEER [facility] 08-12-2024 21:43-0500 Body weight 34.2 kg/m2 ROSA BADILLO SUMMER COUNSELOR-DESIGN VERIFICATION ENGINEER [facility] 08-12-2024 11:55-0500 Body weight 121 kg ROSA ROSEER SUMMER COUNSELOR-DESIGN VERIFICATION ENGINEER [facility] 08-12-2024 11:55-0500 Heart rate 103 /min ROSA BADILLO SUMMER COUNSELOR-DESIGN VERIFICATION ENGINEER [facility] 05-27-2022 14:35-0400 Body temperature 97.2 [degF] Dr. Karl Pichardo Work Phone: [facility] Work Phone: 05-27-2022 14:35-0400 Body weight 87.[address] Karl Pichardo Work Phone: [facility] Work Phone: 05-27-2022 14:35-0400 Diastolic blood pressure 93 mm[Hg] Dr. Karl Pichardo Work Phone: [facility] Work Phone: 05-27-2022 14:35-0400 Heart rate 92 /min Dr. Karl Pichardo Work Phone: [facility] Work Phone: 05-27-2022 14:35-0400 Respiratory rate 16 /min Dr. Karl Pichardo Work Phone: [facility] Work Phone: 05-27-2022 14:35-0400 SaO2% (BldA) [Mass fraction] 98 % Dr. Karl Pichardo Work Phone: [facility] Work Phone: 05-27-2022 14:35-0400 Systolic blood pressure 150 mm[Hg] Dr. Karl Pichardo Work Phone: [facility] Work Phone: 04-15-2022 15:10-0400 Body temperature 97.8 [degF] Dr. Karl Pichardo Work Phone: [facility] Work Phone: 04-15-2022 15:10-0400 Diastolic blood pressure 74 mm[Hg] Dr. Karl Pichardo Work Phone: [facility] Work Phone: 04-15-2022 15:10-0400 Heart rate 102 /min Dr. Karl Pichardo Work Phone: [facility] Work Phone: 04-15-2022 15:10-0400 Respiratory rate 14 /min Dr. Karl Pichardo Work Phone: [facility] Work Phone: 04-15-2022 15:10-0400 SaO2% (BldA) [Mass fraction] 99 % Dr. Karl Pichardo Work Phone: [facility] Work Phone: 04-15-2022 15:10-0400 Systolic blood pressure 126 mm[Hg] Dr. Karl Pichardo Work Phone: [facility] Work Phone: 04-04-2022 16:31-0400 Diastolic blood pressure 76 mm[Hg] Dr. Karl Pichardo Work Phone: [facility] Work Phone: 04-04-2022 16:31-0400 Heart rate 96 /min Dr. Karl Pichardo Work Phone: [facility] Work Phone: 04-04-2022 16:31-0400 Respiratory rate 16 /min Dr. Karl Pichardo Work Phone: [facility] Work Phone: 04-04-2022 16:31-0400 SaO2% (BldA) [Mass fraction] 97 % Dr. Karl Pichardo Work Phone: [facility] Work Phone: 04-04-2022 16:31-0400 Systolic blood pressure 119 mm[Hg] Dr. Karl Pichardo Work Phone: [facility] Work Phone: 04-04-2022 14:13-0400 Body height 172.[address] Karl Pichardo Work Phone: [facility] Work Phone: 04-04-2022 14:13-0400 Body mass index (BMI) [Ratio] 28.1 kg/m2 Dr. Karl Pichardo Work Phone: [facility] Work Phone: 04-04-2022 14:13-0400 Body temperature 96.1 [degF] Dr. Karl Pichardo Work Phone: [facility] Work Phone: 04-04-2022 14:13-0400 Body weight 83.[address] aKrl Pichardo Work Phone: [facility] Work Phone: 03-28-2022 15:40-0400 Body temperature 98.3 [degF] Dr. Karl Pichardo Work Phone: [facility] Work Phone: 03-28-2022 15:40-0400 Body weight 83.[address] Karl Pichardo Work Phone: [facility] Work Phone: 03-28-2022 15:40-0400 Diastolic blood pressure 86 mm[Hg] Dr. Karl Pichardo Work Phone: [facility] Work Phone: 03-28-2022 15:40-0400 Heart rate 88 /min Dr. Karl Pichardo Work Phone: [facility] Work Phone: 03-28-2022 15:40-0400 Respiratory rate 16 /min Dr. Karl Pichardo Work Phone: [facility] Work Phone: 03-28-2022 15:40-0400 SaO2% (BldA) [Mass fraction] 99 % Dr. Karl Pichardo Work Phone: [facility] Work Phone: 03-28-2022 15:40-0400 Systolic blood pressure 140 mm[Hg] Dr. Karl Pichadro Work Phone: [facility] Work Phone: 03-13-2022 11:14-0400 Body temperature 97.7 [degF] Dr. Karl Pichardo Work Phone: [facility] Work Phone: 03-13-2022 11:14-0400 Diastolic blood pressure 84 mm[Hg] Dr. Karl Pichardo Work Phone: [facility] Work Phone: 03-13-2022 11:14-0400 Heart rate 92 /min Dr. Karl Pichardo Work Phone: [facility] Work Phone: 03-13-2022 11:14-0400 Respiratory rate 14 /min Dr. Karl Pichardo Work Phone: [facility] Work Phone: 03-13-2022 11:14-0400 SaO2% (BldA) [Mass fraction] 98 % Dr. Karl Pichardo Work Phone: [facility] Work Phone: 03-13-2022 11:14-0400 Systolic blood pressure 138 mm[Hg] Dr. Karl Pichardo Work Phone: [facility] Work Phone: 03-13-2022 10:55-0400 Body height 172.[address] Karl Pichardo Work Phone: [facility] Work Phone: 03-11-2022 19:43-0400 Diastolic blood pressure 81 mm[Hg] Dr. Karl Pichardo Work Phone: [facility] Work Phone: 03-11-2022 19:43-0400 Heart rate 81 /min Dr. Karl Pichardo Work Phone: [facility] Work Phone: 03-11-2022 19:43-0400 Respiratory rate 16 /min Dr. Karl Pichardo Work Phone: [facility] Work Phone: 03-11-2022 19:43-0400 SaO2% (BldA) [Mass fraction] 97 % Dr. Karl Pichardo Work Phone: [facility] Work Phone: 03-11-2022 19:43-0400 Systolic blood pressure 128 mm[Hg] Dr. Karl Pihcardo Work Phone: [facility] Work Phone: 03-11-2022 19:00-0400 Body temperature 97.9 [degF] Dr. Karl Pichardo Work Phone: [facility] Work Phone: 03-11-2022 15:20-0400 Body height 172.[address] Karl Pichardo Work Phone: [facility] Work Phone: 03-11-2022 15:20-0400 Body mass index (BMI) [Ratio] 27.6 kg/m2 Dr. Karl Pichardo Work Phone: [facility] Work Phone: 03-11-2022 15:20-0400 Body weight 82.[address] Karl Pichardo Work Phone: [facility] Work Phone: 03-11-2022 14:31-0400 Body temperature 98.5 [degF] Dr. Karl Pichardo Work Phone: [facility] Work Phone: 03-11-2022 14:31-0400 Diastolic blood pressure 76 mm[Hg] Dr. Karl Pichardo Work Phone: [facility] Work Phone: 03-11-2022 14:31-0400 Heart rate 99 /min Dr. Karl Pichardo Work Phone: [facility] Work Phone: 03-11-2022 14:31-0400 Respiratory rate 14 /min Dr. Karl Pichardo Work Phone: [facility] Work Phone: 03-11-2022 14:31-0400 SaO2% (BldA) [Mass fraction] 99 % Dr. Karl Pichardo Work Phone: [facility] Work Phone: 03-11-2022 14:31-0400 Systolic blood pressure 126 mm[Hg] Dr. Karl Pichardo Work Phone: [facility] Work Phone: 03-04-2022 16:02-0400 Body height 172.7 cm Andry Dunne MD Work Phone: [facility] 03-04-2022 16:02-0400 Body weight 79.38 kg Andry Dunne MD Work Phone: [facility] 11-24-2021 11:54-0400 Heart rate 100 /min [facility] Work Phone: 11-24-2021 11:54-0400 Respiratory rate 18 /min [facility] Work Phone: 11-24-2021 11:54-0400 SaO2% (BldA) [Mass fraction] 99 % [facility] Work Phone: 11-24-2021 09:58-0400 Body height 172.72 cm [facility] Work Phone: 11-24-2021 09:58-0400 Body mass index (BMI) [Ratio] 26.6 kg/m2 [facility] Work Phone: 11-24-2021 09:58-0400 Body temperature 97.8 [degF] [facility] Work Phone: 11-24-2021 09:58-0400 Body weight 79.37 kg [facility] Work Phone: 11-24-2021 09:58-0400 Diastolic blood pressure 91 mm[Hg] [facility] Work Phone: 11-24-2021 09:58-0400 Systolic blood pressure 160 mm[Hg] [facility] Work Phone: 09-24-2021 15:11-0500 Body temperature 97 [degF] [facility] Work Phone: 09-24-2021 15:11-0500 Diastolic blood pressure 88 mm[Hg] [facility] Work Phone: 09-24-2021 15:11-0500 Heart rate 101 /min [facility] Work Phone: 09-24-2021 15:11-0500 Respiratory rate 17 /min [facility] Work Phone: 09-24-2021 15:11-0500 SaO2% (BldA) [Mass fraction] 97 % [facility] Work Phone: 09-24-2021 15:11-0500 Systolic blood pressure 154 mm[Hg] [facility] Work Phone: 09-24-2021 11:55-0500 Body mass index (BMI) [Ratio] 26.6 kg/m2 [facility] Work Phone: 09-24-2021 11:55-0500 Body weight 79.37 kg [facility] Work Phone: 08-25-2021 03:21-0500 Diastolic blood pressure 72 mm[Hg] [facility] Work Phone: 08-25-2021 03:21-0500 Heart rate 78 /min [facility] Work Phone: 08-25-2021 03:21-0500 Respiratory rate 16 /min [facility] Work Phone: 08-25-2021 03:21-0500 SaO2% (BldA) [Mass fraction] 97 % [facility] Work Phone: 08-25-2021 03:21-0500 Systolic blood pressure 128 mm[Hg] [facility] Work Phone: 08-24-2021 20:42-0500 Body mass index (BMI) [Ratio] 26.6 kg/m2 [facility] Work Phone: 08-24-2021 20:42-0500 Body temperature 98.8 [degF] [facility] Work Phone: 08-24-2021 20:42-0500 Body weight 79.37 kg [facility] Work Phone: 08-23-2021 16:12-0500 Diastolic blood pressure 85 mm[Hg] [facility] Work Phone: 08-23-2021 16:12-0500 Heart rate 96 /min [facility] Work Phone: 08-23-2021 16:12-0500 Respiratory rate 16 /min [facility] Work Phone: 08-23-2021 16:12-0500 SaO2% (BldA) [Mass fraction] 97 % [facility] Work Phone: 08-23-2021 16:12-0500 Systolic blood pressure 119 mm[Hg] [facility] Work Phone: 08-23-2021 11:18-0500 Body mass index (BMI) [Ratio] 27.6 kg/m2 [facility] Work Phone: 08-23-2021 11:18-0500 Body weight 82.5 kg [facility] Work Phone: 08-23-2021 10:23-0500 Body temperature 95.9 [degF] [facility] Work Phone: 12-18-2016 10:50-0400 BMI (Body Mass Index) 29.8 kg/m2 Rita Unger RN RN [facility] Work Phone: 12-18-2016 10:50-0400 Body Temperature 98.3 [degF] Rita Unger RN RN [facility] Work Phone: 12-18-2016 10:50-0400 Body Temperature 98.29 [degF] Rita Unger RN RN [facility] Work Phone: 12-18-2016 10:50-0400 Body weight 88.91 kg Rita Unger RN RN [facility] Work Phone: 12-18-2016 10:50-0400 Body weight 88.9 kg Rita Unger RN RN [facility] Work Phone: 12-18-2016 10:50-0400 BP Diastolic 91 mm[Hg] Rita Unger RN RN [facility] Work Phone: 12-18-2016 10:50-0400 BP Systolic 127 mm[Hg] Rita Unger RN RN [facility] Work Phone: 12-18-2016 10:50-0400 BSA (Body Surface Area) 2.03 m2 Rita Unger RN RN [facility] Work Phone: 12-18-2016 10:50-0400 Height 172.72 cm Rita Unger RN RN [facility] Work Phone: 12-18-2016 10:50-0400 Pulse (Heart Rate) 101 /min Rita Unger RN RN [facility] Work Phone: 12-18-2016 10:50-0400 Pulse Oximetry 99 % Rita Unger RN RN [facility] Work Phone: 12-18-2016 10:50-0400 Respiratory Rate 16 /min Rita Unger RN RN [facility] Work Phone: 12-18-2016 10:50-0400 Weight 88.91 kg Rita Unger RN RN [facility] Work Phone: 12-18-2016 10:50-0400 Weight 88.9 kg Rita Unger RN RN [facility] Work Phone: Encounters Encounter Date Encounter Type Care Provider Facility Start: 01-31-2025 ambulatory Chantale Ramsey NP Fa cility:[facility] Start: 01-17-2025 End: 01-17-2025 ambulatory Sandi Darrell Facility:[facility] Start: 01-13-2025 ambulatory Chantale Ramsey NP Fa cility:[facility] Start: 01-13-2025 End: 01-13-2025 ambulatory Ame Eastman NP Facility:[facility] Start: 01-07-2025 End: 01-07-2025 ambulatory Ame Eastman NP Facility:[facility] Start: 01-06-2025 End: 01-07-2025 ambulatory PHY WO ID REFERRING Facility:[facility] Start: 01-06-2025 End: 01-06-2025 Patient encounter procedure PHY WO ID REFERRING [facility] Start: 12-23-2024 End: 12-23-2024 Emergency department patient visit Chantale Ramsey NP Facility:[facility] Start: 12-21-2024 End: 12-21-2024 ambulatory Chantale Ramsey Facility:[facility] Start: 12-01-2024 End: 12-01-2024 ambulatory Chantale Ramsey NP Facility:[facility] Start: 11-07-2024 End: 11-07-2024 Emergency department patient visit Hawk Jackie Facility:[facility] Start: 10-26-2024 End: 10-30-2024 ambulatory ROSA HOLGUIN DO Facility:[facility] Start: 10-20-2024 End: 10-20-2024 ambulatory Sandi Darrell Facility:[facility] Start: 10-18-2024 End: 10-18-2024 ambulatory Sandi Darrell Facility:[facility] Start: 10-18-2024 End: 10-18-2024 ambulatory Sandi Darrell Facility:[facility] Start: 08-12-2024 End: 08-14-2024 Evaluation and management of inpatient ROSA BADILLO SUMMER COUNSELOR-DESIGN VERIFICATION ENGINEER [facility] Start: 08-05-2024 End: 08-05-2024 ambulatory Noe MO Facility:[facility] Start: 07-23-2024 ambulatory Karl Mollison Facility :[facility] Start: 07-19-2024 End: 07-19-2024 ambulatory Sandi Darrell Facility:[facility] Start: 06-17-2024 End: 06-17-2024 ambulatory Karl Mollison Facility:[facility] Start: 04-23-2024 End: 04-23-2024 ambulatory Sandi Darrell Facility:[facility] Start: 04-21-2024 End: 04-21-2024 ambulatory Sandi Darrell Facility:[facility] Start: 04-16-2024 End: 04-16-2024 ambulatory Chantale Ramsey NP Facility:[facility] Start: 03-10-2024 End: 03-10-2024 ambulatory CHANTALE RAMSEY SUMMER COUNSELOR-DESIGN VERIFICATION ENGINEER Facility:[facility] Start: 02-29-2024 End: 02-29-2024 Emergency department patient visit Roe Corea Facility:[facility] Start: 02-27-2024 End: 02-27-2024 Emergency department patient visit Chantale Ramsey NP Facility:[facility] Start: 02-26-2024 End: 02-26-2024 ambulatory Karl Heison Facility:[facility] Start: 02-20-2024 End: 02-20-2024 ambulatory Noe MO Facility:[facility] Start: 02-20-2024 End: 02-20-2024 ambulatory Noe Lino PA Facility:[facility] Start: 02-09-2024 End: 02-13-2024 ambulatory HUNG MATA MD Facility:[facility] Start: 02-09-2024 End: 02-13-2024 Outreach Lab HUNG MATA MD [facility] Start: 02-02-2024 ambulatory Sandi Darrell Facility :[facility] Start: 12-26-2023 End: 12-26-2023 ambulatory CHANTALE RAMSEY SUMMER COUNSELOR-DESIGN VERIFICATION ENGINEER Facility:[facility] Start: 12-26-2023 End: 12-26-2023 Patient encounter procedure CHANTALE RAMSEY SUMMER COUNSELOR-DESIGN VERIFICATION ENGINEER [facility] Start: 11-07-2023 End: 11-07-2023 ambulatory PIPER Al MAE SUMMER COUNSELOR-DESIGN VERIFICATION ENGINEER Facility:[facility] Start: 10-17-2023 End: 10-17-2023 ambulatory CHANTALE Anayeli BRAULIO SUMMER COUNSELOR-DESIGN VERIFICATION ENGINEER Facility:[facility] Start: 10-17-2023 End: 10-17-2023 Patient encounter procedure CHANTALE Anayeli BRAULIO SUMMER COUNSELOR-DESIGN VERIFICATION ENGINEER [facility] Start: 09-25-2023 End: 09-29-2023 ambulatory CHANTALE RAMSEY SUMMER COUNSELOR-DESIGN VERIFICATION ENGINEER Facility:[facility] Start: 09-25-2023 End: 09-25-2023 ambulatory MANUEL MARTIN PA-C Facility:[facility] Start: 09-09-2023 End: 09-09-2023 ambulatory CHANTALE RAMSEY SUMMER COUNSELOR-DESIGN VERIFICATION ENGINEER Facility:[facility] Start: 09-09-2023 End: 09-09-2023 Patient encounter procedure CHANTALE Anayeli BRAULIO SUMMER COUNSELOR-DESIGN VERIFICATION ENGINEER [facility] Start: 08-18-2023 End: 08-18-2023 ambulatory CHANTALE Anayeli BRAULIO SUMMER COUNSELOR-DESIGN VERIFICATION ENGINEER Facility:[facility] Start: 07-25-2023 End: 07-29-2023 ambulatory PIPER Al MAE SUMMER COUNSELOR-DESIGN VERIFICATION ENGINEER Facility:[facility] Start: 07-25-2023 End: 07-29-2023 Outreach Lab PIPER L MAE SUMMER COUNSELOR-DESIGN VERIFICATION ENGINEER [facility] Start: 05-14-2023 End: 05-18-2023 ambulatory CHANTALE RAMSEY SUMMER COUNSELOR-DESIGN VERIFICATION ENGINEER Facility:[facility] Start: 05-14-2023 End: 05-18-2023 Outreach Lab CHANTALE Anayeli BRAULIO SUMMER COUNSELOR-DESIGN VERIFICATION ENGINEER [facility] Start: 04-29-2023 End: 04-29-2023 ambulatory CHANTALE RAMSEY SUMMER COUNSELOR-DESIGN VERIFICATION ENGINEER Facility:[facility] Start: 02-18-2023 End: 02-18-[address] ELVIRA ROQUE DO [facility] Start: 01-16-2023 End: 01-16-2023 Patient encounter procedure CHANTALE RAMSEY SUMMER COUNSELOR-DESIGN VERIFICATION ENGINEER [facility] Start: 01-03-2023 End: 01-03-2023 Patient encounter procedure CHANTALE Anayeli BRAULIO SUMMER COUNSELOR-DESIGN VERIFICATION ENGINEER [facility] Start: 11-06-2022 End: 11-06-2022 Patient encounter procedure CHANTALE RAMSEY SUMMER COUNSELOR-DESIGN VERIFICATION ENGINEER [facility] Start: 10-31-2022 End: 11-01-2022 Evaluation and management of inpatient SLOAN MUJICA Facility:[facility] Start: 10-30-2022 End: 10-31-2022 Emergency department patient visit REJI SHEPARD Facility:[facility] Start: 06-04-2022 End: 06-04-[address] Karl Pichardo Work Phone: [facility] Work Phone: Start: 06-04-2022 End: 06-04-[address] Karl Pichardo Work Phone: [facility] Start: 05-27-2022 End: 05-27-[address] Karl Pichardo Work Phone: [facility] Start: 04-15-2022 End: 04-15-[address] Karl Pichardo Work Phone: [facility] Start: 04-04-2022 End: 04-04-2022 Emergency department patient visit Dr. Karl Pichardo Work Phone: [facility] Start: 03-28-2022 End: 03-28-[address] Karl Pichardo Work Phone: [facility] Start: 03-13-2022 End: 03-13-[address] [facility] Start: 03-13-2022 End: 03-13-[address] Karl Pichardo Work Phone: [facility] Start: 03-11-2022 End: 03-11-2022 Emergency department patient visit Dr. Karl [facility]ichardo [facility] Start: 03-11-2022 End: 03-11-[address] Karl Pichardo Work Phone: [facility] Start: 03-05-2022 Orders Only Livia lux PA-C Work Phone: Orthopaedics Comment on above: Rotator cuff tear ar thropathy of right shoulder (Primary Dx) Start: 03-04-2022 End: 03-04-2022 ambulatory KARL PICHARDO Facility:[facility] Start: 03-04-2022 End: 03-04-2022 Patient encounter procedure Andry Dunne MD Work Phone: Orthopaedics Comment on above: Impingement syndrome of left shoulder (Primary Dx); Chronic left shoulder pain Start: 12-03-2021 End: 12-03-2021 ambulatory RODOLFO BISHOP Facility:[facility] Start: 12-03-2021 End: 12-03-2021 Patient encounter procedure Rodolfo Bishop MD Work Phone: Orthopaedics Comment on above: History of failed re pair of rotator cuff (Primary Dx); Rotator cuff tear arthropathy of right shoulder Start: 11-29-2021 Orders Only Rodolfo Bishop MD Work Phone: [facility] [place] Comment on above: Pain (Primary Dx) Start: 11-24-2021 End: 11-24-2021 Emergency department patient visit [facility] Start: 11-22-2021 End: 11-22-2021 ambulatory SAM JONES Facility:[facility] Start: 11-22-2021 End: 11-22-2021 Patient encounter procedure Sam Jones MD Work Phone: [facility] Comment on above: Rotator cuff tear ar thropathy, right (Primary Dx); Traumatic complete tear of right rotator cuff, subsequent encounter Tear of left glenoid labrum, subsequent encounter (Primary Dx); Rotator cuff syndrome of left shoulder Start: 09-24-2021 End: 09-24-2021 Emergency department patient visit [facility] Start: 08-24-2021 End: 08-25-2021 Emergency department patient visit [facility] Start: 08-23-2021 End: 08-23-2021 Emergency department patient visit [facility] Start: 06-05-2021 End: 06-05-2021 Subsequent hospital visit by physician Xr [facility] Jamil Work Phone: Radiology Comment on above: Pain [R52] Start: 02-20-2017 Ambulatory [facility] Start: 02-19-2017 [facility] Start: 08-30-2009 End: 01-13-2013 Patient encounter status Xr Jamil Work Phone: [facility] Procedures Date Procedure Procedure Detail Performing Clinician Start: 04-04-2022 CT of head without contrast Dr. Karl mcintyre Work Phone: Start: 03-11-2022 Plain chest X-ray Dr. Karl Pichardo Work Phone: Start: 03-04-2022 Arthrocentesis aspir&/inj major jt/bursa w/o us Andry Dunne MD Work Phone: Start: 11-24-2021 CT of face Start: 11-24-2021 CT of head without contrast Start: 11-22-2021 Arthrocentesis aspir&/inj major jt/bursa w/o us Sam Jones MD Work Phone: Start: 08-23-2021 Urine culture Start: 08-23-2021 CT of head without contrast Start: 08-23-2021 Plain chest X-ray Start: 06-05-2021 Radex shoulder complete minimum 2 views Laverne Duong PA-C Work Phone: Start: 03-01-2021 Mammography Sam Jones MD Work Phone: Start: 10-06-2020 Incision AND drainage CHANTALE RAMSEY SUMMER COUNSELOR-DESIGN VERIFICATION ENGINEER Comment on above: cervical neck hematoma Start: 09-28-2020 Excision of cervical intervertebral disc CHANTALE RAMSEY SUMMER COUNSELOR-DESIGN VERIFICATION ENGINEER Start: 10-25-2019 History of repair of musculotendinous cuff of shoulder S/P rotator cuff repair Sam Jones MD Work Phone: Start: 04-20-2019 Colonoscopy Sam Jones MD Work Phone: Start: 12-18-2016 End: 12-18-2016 Dietary management education, guidance, and counseling Rita Unger RN RN Start: 12-18-2016 End: 12-18-2016 Documentation of current medications Rita Unger RN RN Start: 12-18-2016 End: 12-24-2016 Diagnostic colonoscopy Miguel Pena MD Work Phone: Start: 12-18-2016 End: 12-24-2016 Upper GI endoscopy, biopsy Miguel Pena MD Work Phone: Start: 02-14-2016 Adult depression screening assessment Sam Jones MD Work Phone: Appendectomy CHANTALE VILLA SUMMER COUNSELOR-DESIGN VERIFICATION ENGINEER Cholecystectomy HCANTALE APONTE SUMMER COUNSELOR-DESIGN VERIFICATION ENGINEER Colonoscopy CHANTALE VILLA SUMMER COUNSELOR-DESIGN VERIFICATION ENGINEER Diagnostic laparosco py of female pelvis CHANTALE RAMSEY SUMMER COUNSELOR-DESIGN VERIFICATION ENGINEER Comment on above: Left ovarian cyst removed Entire knee region ( body structure) CHANTALE BRAULIO SUMMER COUNSELOR-[employer] Comment on above: Right Epidural injection o f lumbar spine using fluoroscopic guidance CHANTALE RAMSEY SUMMER COUNSELORLakoo Esophagogastroduodenoscopy E LAUREN BRAULIO SUMMER COUNSELORLakoo H/O: surgery History of rever talib of tubal ligation H/O: tubal ligation History of t ubal ligation Herniation of rectum into vagina (disorder) CHANTALE BRAULIO SUMMER COUNSELORLakoo History of appendectomy History of appendectomy History of cholecystectomy Histo ry of cholecystectomy History of operative procedure on knee History of right knee surgery History of repair of musculotendinous cuff of shoulder History of repair of right rotator cuff History of repair of musculotendinous cuff of shoulder History of failed repair of rotator cuff Rodolfo Bishop MD Work Phone: History of total hysterectomy Hi story of total hysterectomy Hysterectomy CHANTALE VILLA SUMMER COUNSELORLakoo Ligation of fallopian tube E LAUREN BRAULIO SUMMER COUNSELORLakoo Open reduction of fr acture of ankle with internal fixation CHANTALE RAMSEY SUMMER COUNSELORLakoo Comment on above: Left Shoulder region stru cture (body structure) CHANTALE RAMSEY SUMMER COUNSELORLakoo Comment on above: Right x6 Urine culture Dr. Karl bowden Work Phone: Plan of Treatment Date Care Activity Detail Author Start: 04-20-2029 Colonoscopy [address] [facility] Start: 04-20-2029 COLORECTAL CANCER SCREENING COLORECTAL CANCER SCREENING [facility] Start: 04-20-2029 Screening for malign ant neoplasm of colon [facility] Start: 03-26-2026 Urine microalbumin profile [facility] Start: 04-04-2024 Covid-19 Vaccine () Covid-19 Vaccine () [facility] Start: 04-04-2024 Influenza vaccination Influenza Vacc ine (#1) [facility] Start: 01-31-2023 Hemoglobin A1c measurement HbA1C [facility] Start: 05-27-2022 Patient referral [facility] Work Phone: Start: 04-04-2022 Influenza vaccination [facility] Start: 04-04-2022 [facility] Work Phone: Start: 03-01-2022 Mammography MAMMO[address] [facility] Start: 03-01-2022 Screening for malign ant neoplasm of breast Mammogram Screening [facility] Start: 08-28-2020 Glaucoma screening Dilated Retinal E xam [facility] Start: 08-28-2020 Hepatitis C antibody , confirmatory test DILATED RETINAL EXAM [facility] Start: 03-03-2020 HPV TESTING HPV TESTING [facility] Start: 03-03-2020 PAP TESTING PAP TESTING [facility] Start: 03-03-2020 Screening for malign ant neoplasm of cervix Cervical Cancer Screening [facility] Start: 11-18-2019 Hemoglobin A1c/Hemoglobin.total in Blood HBA1C [facility] Start: 06-28-2017 3 comp foot exam completed DIABETIC FOOT EXAM [facility] Start: 06-28-2017 Diabetic foot examination Diabetic Foot Exam [facility] Start: 06-24-2017 Hepatitis B surface antibody level LDL CHOLESTEROL [facility] Start: 03-26-2017 Hepatitis B screening URINE AL BUMIN:CREATININE RATIO [facility] Start: 02-13-2017 Adult depression screening assessment DEPRESSION SCREENING [facility] Start: 12-24-2016 End: 12-24-2016 Appointment [facility] [employer] Work Phone: Start: 12-24-2016 End: 12-24-2016 Appointment Appointment [facility] [employer] Work Phone: Start: 12-18-2016 End: 12-18-2016 Appointment Appointment [facility] [employer] Work Phone: Start: 12-18-2016 End: 12-18-2016 Appointment Appointment [facility] [employer] Work Phone: Start: 12-18-2016 End: 12-24-2016 Diagnostic colonoscopy Colonoscopy [facility] [employer] Work Phone: Start: 12-18-2016 End: 12-24-2016 Upper GI endoscopy, biopsy Upper gastrointestinal endoscopy; with biopsy [facility] Work Phone: Start: 2016 SHINGRIX VACCINE (1 of 2) SHINGRIX VACCINE (1 of 2) [facility] Start: 2011 COLOGUARD (FIT-DNA) COLOGUARD (FIT-D NA) [facility] Start: [address] COLONOGRAPHY [facility] Start: 2011 FECAL OCCULT BLOOD FECAL OCCULT BLOO D [facility] Start: 2011 Screening for malign ant neoplasm of colon [facility] Start: 2011 SIGMOIDOSCOPY SIGMOIDOSCOPY [facility] Start: 05-04-2005 PNEUMOCOCCAL (2 - PCV) PNEUMOCOCCAL (2 - PCV) [facility] Start: 05-04-2005 Pneumococcal vaccination Pneumococcal Vaccine (2 of 2 - PCV) [facility] Start: 1984 ANNUAL PCP TEAM DIRECTOR OF [address]IC[address] A[address] DISEASE VISIT ANNUAL PCP TEAM CHRONIC DISEASE VISIT [facility] Start: 1984 BP CONTROLLED (<130/80) BP CONTROLLE D (<130/80) [facility] Start: 1984 Depression Screening Depression Scre ening [facility] Start: 1984 SPIROMETRY SPIROMETRY [facility] Start: 1971 COVID-19 VACCINE (1) COVID-19 VACCIN E (1) [facility] Start: 1966 COVID-19 VACCINE (#1) COVID-19 VACCI NE (#1) [facility] Bacteria identified in Urine by Culture Urine Culture [facility] Work Phone: Patient Education [facility] Work Phone: Patient referral [facility] Work Phone: End: 12-29-2022 XR SHOULDER GENERAL 3V OR MORE AP/TRUE AP/OTHER RIGHT XR SHOULDER GENERAL 3V OR MORE AP/TRUE AP/OTHER RIGHT Radiology Routine Pain 1 Occurrences starting 11/29/2021 until 12/29/2022 [facility] Work Phone: Comment on above: 1 Occurrences starti ng 11/29/2021 until 12/29/2022 End: 04-05-2023 XR SHOULDER GENERAL 3V OR MORE AP/TRUE AP/OTHER RIGHT XR SHOULDER GENERAL 3V OR MORE AP/TRUE AP/OTHER RIGHT Radiology Routine Rotator cuff tear arthropathy of right shoulder 1 Occurrences starting 03/05/2022 until 04/05/2023 [facility] Work Phone: Comment on above: 1 Occurrences starti ng 03/05/2022 until 04/05/2023 [facility] Immunizations Immunization Date Immunization Notes Care Provider Fa opal 05-06-2017 influenza virus vaccine, unspecified formulation CHANTALE RAMSEY SUMMER COUNSELOR-DESIGN VERIFICATION ENGINEER [facility] 05-06-2017 influenza, injectabl e, quadrivalent, contains preservative Sam Jones MD Work Phone: [facility] 03-26-2016 tetanus toxoid, reduced diphtheria toxoid, and acellular pertussis vaccine, adsorbed Sam Jones MD Work Phone: [facility] Work Phone: 06-02-2015 influenza virus vaccine, unspecified formulation CHANTALE RAMSEY SUMMER COUNSELOR-DESIGN VERIFICATION ENGINEER [facility] 06-02-2015 influenza, injectabl e, quadrivalent, contains preservative Sam Jones MD Work Phone: [facility] 01-24-2015 tuberculin skin test ; purified protein derivative solution, intradermal Xr [place] Work Phone: [facility] 07-13-2014 influenza virus vaccine, unspecified formulation CHANTALE RAMSEY [employer] COUNSELOR-DESIGN VERIFICATION ENGINEER [facility] 07-13-2014 influenza, seasonal, injectable Sam Jones MD Work Phone: [facility] 05-06-2013 influenza virus vaccine, unspecified formulation Sam Jones MD Work Phone: [facility] 05-08-2012 influenza virus vaccine, unspecified formulation Sam Jones MD Work Phone: [facility] Work Phone: 10-22-2011 hepatitis B vaccine, adult dosage Sam Jones MD Work Phone: [facility] Work Phone: 08-09-2011 tuberculin skin test ; purified protein derivative solution, intradermal Xr [place] Work Phone: [facility] 07-31-2011 tuberculin skin test ; purified protein derivative solution, intradermal Xr [place] Work Phone: [facility] Work Phone: 04-26-2011 hepatitis B vaccine, adult dosage Sam Jones MD Work Phone: [facility] 04-26-2011 influenza virus vaccine, unspecified formulation Sam Jones MD Work Phone: [facility] 03-21-2011 hepatitis B vaccine, adult dosage Sam Jones MD Work Phone: [facility] Work Phone: 03-21-2011 tuberculin skin test ; purified protein derivative solution, intradermal Xr [place] Work Phone: [facility] 08-21-2006 diphtheria and tetan us toxoids, adsorbed for pediatric use Sam Jones MD Work Phone: [facility] 06-12-2005 influenza virus vaccine, whole virus Sam Jones MD Work Phone: [facility] Work Phone: 05-04-2004 pneumococcal polysaccharide vaccine, 23 valent Sam Jones MD Work Phone: [facility] 10-03-1999 tetanus and diphther ia toxoids, adsorbed, preservative free, for adult use (2 Lf of tetanus toxoid and 2 Lf of diphtheria toxoid) Sam Jones MD Work Phone: [facility] Payers Date Payer Category Payer Private Health Insurance [id number] 2025 Unknown [id number] 2023 Self-pay [id number] 2022 Unknown [id number] 2020 Medicaid [facility] MEDICA[facility] [id number] 2020-Present [phone] [address] [place] [address] Medicaid [id number] 2020 Medicaid [id number]. [id number] 2020 Unknown [id number] 2018 Unknown 2018 Unknown [facility] [id number] 2018-Present [phone] [address] [place] [address] [facility] [id number]. [id number] 2018 Unknown [id number] 2016 Unknown [id number] 1966 Unknown [id number] 2.840.1.569710.3.579.2. 1966 Unknown [id number] 2.840.1.364802.3.579.2. 1966 Unknown [id number] 2.16840.1.935441.3.579.2. 1966 Unknown [id number] 2.16840.1.297995.3.579.2. 1966 Unknown [id number] 2.16840.1.166174.3.579.2. 1966 Unknown [id number] 2.16.840.1.524418.3.579.2. 1966 Unknown [id number] 2.16.840.1.041550.3.579.2. 1966 Unknown [id number] 2.16.840.1.426011.3.579.2. 1966 Unknown [id number] 2.16.840.1.866131.3.579.2. 1966 Unknown [id number] 2.16.840.1.277126.3.579.2. 1966 Unknown [id number] 2.16.840.1.161111.3.579.2 1966 Unknown [id number] 2.840.1.074814.3.579.2. 1966 Unknown [id number] 2.840.1.329462.3.579.2. 1966 Unknown [id number] 2.840.1.514301.3.579.2 1966 Unknown [id number] 2.16840.1.072325.3.579.2 1966 Unknown [id number] 2.840.1.994423.3.579.2. 1966 Unknown [id number] 2.840.1.916118.3.579.2 Unknown [id number] Unknown [id number] 2.16840.1.437979.3.579.2. 462 Unknown [id number] 2.16840.1.900766.3.579.2. 462 Unknown [id number] 2.16840.1.902768.3.579.2. 462 Unknown [id number] 2.16.840.1.854581.3.579.2. 462 Unknown [id number] 2.16.840.1.483467.3.579.2. 462 Unknown [id number] 2.16.840.1.950519.3.579.2. 462 Unknown [id number] 2.16.840.1.418660.3.579.2. 462 Unknown [id number] 2.16.840.1.312809.3.579.2. 462 Unknown [id number] 2.16.840.1.845555.3.579.2. 462 Unknown [id number] 2.16.840.1.773222.3.579.2. 462 Unknown [id number] 2.16.840.1.555325.3.579.2. 462 Unknown [id number] 2.16.840.1.686805.3.579.2. 462 Unknown [id number] 2.16.840.1.165929.3.579.2. 462 Unknown [id number] 2.16840.1.812202.3.579.2. 462 Unknown [id number] 2.16.840.1.526848.3.579.2. 462 Unknown [id number] 2.16.840.1.209622.3.579.2. 462 Unknown [id number] 2.16840.1.384761.3.579.2. 462 Unknown [id number] 2.16840.1.153527.3.579.2. 462 Unknown [id number] 2.16.840.1.892357.3.579.2. 462 Unknown [id number] 2.16.840.1.156141.3.579.2. 462 Unknown [id number] 2.16.840.1.505360.3.579.2. 462 Unknown [id number] 2.16.840.1.788030.3.579.2. 462 Unknown [id number] 2.16.840.1.864742.3.579.2. 462 Unknown [id number] 2.16.840.1.521075.3.579.2. 462 Unknown [id number] 2.16.840.1.184320.3.579.2. 462 Unknown [id number] 2.16.840.1.568470.3.579.2. 462 Unknown [id number] 2.16.840.1.108915.3.579.2. 462 Social History Date Type Detail Facility Start: 01-11-2011 End: 12-08-2024 Tobacco smoking status NHIS Never smoked tobacco [facility] Start: 06-05-2021 End: 11-22-2021 Alcohol intake Current drinker of alcohol (finding) [facility] Start: 10-25-2019 History SDOH Alcohol Comment 2 vodka mixed drinks nightly [facility] Start: 1965 Sex Assigned At Female [facility] Start: 05-06-2021 End: 03-04-2022 Exposure to SARS-CoV-2 (event) Not sure [facility] Start: 11-24-2021 End: 05-27-2022 Tobacco smoking status KSIS Unknown if ever smoked [facility] Work Phone: Start: 08-17-2020 None [facility] Work Phone: Start: 08-20-2019 Alone [facility] Work Phone: Start: 10-04-2020 Non-smoker [facility] Work Phone: Start: 07-09-2020 End: 03-04-2022 Alcohol intake [facility] Start: 01-11-2011 Tobacco use and exposure Smokeless tobacco non-user [facility] Work Phone: Sex Assigned At [facility] Start: 07-09-2020 End: 06-05-2021 Tobacco use panel [facility] National Score (1-10 0), lower number is lower risk Not on file [facility] Start: 08-27-2019 Gender identity Identifies as female gender (finding) [facility] Start: 08-27-2019 Sexual orientation Heterosexual (sonny faith) [facility] Start: 07-11-2016 Sex Female (finding) [facility] Medical Equipment Procedure Code Equipment Code Equipment Origin al Text Equipment Identifier Dates [place] [employer] 5.5mm 2 Full Thread Peek 14.7mm Suture 2 Sterile - [id number] Start: 02-01-2019 testing up to three times daily [id number] Start: 02-23-2014 Comment on above: testing up to three times daily See Instructions , Blood glucose test strips for home blood glucose testing twice daily. #6 boxes for 90 day supply. Please make sure test strips match glucometer., # 1 EA, 3 Refill(s), Pharmacy: [facility], DMII (diabetes mellitus, type 2), 17... Start: 10-08-2022 See Instructions , Lancets for blood glucose testing twice daily. 90 day supply., # 1 EA, 3 Refill(s), Pharmacy: [facility], DMII (diabetes mellitus, type 2), 172.7, cm, 10/08/22 10:00:00 EST, Height, 85 Start: 10-08-2022 See Instructions , Blood glucose test strips for home blood glucose testing twice daily. #6 boxes for 90 day supply. Please make sure test strips match glucometer., # 1 EA, 3 Refill(s), Pharmacy: [facility], DMII (diabetes mellitus, type 2), 17... Start: 10-08-2022 See Instructions , Lancets for blood glucose testing twice daily. 90 day supply., # 1 EA, 3 Refill(s), Pharmacy: [facility], DMII (diabetes mellitus, type 2), 172.7, cm, 10/08/22 10:00:00 EST, Height, 85 Start: 10-08-2022 See Instructions , Blood glucose test strips for home blood glucose testing twice daily. #6 boxes for 90 day supply. Please make sure test strips match glucometer., # 1 EA, 3 Refill(s), Pharmacy: [facility], DMII (diabetes mellitus, type 2), 17... Start: 10-08-2022 See Instructions , Lancets for blood glucose testing twice daily. 90 day supply., # 1 EA, 3 Refill(s), Pharmacy: [place] [id number], DMII (diabetes mellitus, type 2), 172.7, cm, 10/08/22 10:00:00 EST, Height, 85 Start: 10-08-2022 See Instructions , Blood glucose test strips for home blood glucose testing twice daily. #6 boxes for 90 day supply. Please make sure test strips match glucometer., # 1 EA, 3 Refill(s), Pharmacy: [place] [id number], DMII (diabetes mellitus, type 2), 172.7, cm, 10/08/22 10:00:00 EST, Height, 85 Start: 10-08-2022 See Instructions , Lancets for blood glucose testing twice daily. 90 day supply., # 1 EA, 3 Refill(s), Pharmacy: [place] [id number], DMII (diabetes mellitus, type 2), 172.7, cm, 10/08/22 10:00:00 EST, Height, 85 Start: 10-08-2022 See Instructions , Blood glucose test strips for home blood glucose testing twice daily. #6 boxes for 90 day supply. Please make sure test strips match glucometer., # 1 EA, 3 Refill(s), Pharmacy: [place] [id number], DMII (diabetes mellitus, type 2), 172.7, cm, 10/08/22 10:00:00 EST, Height, 85 Start: 10-08-2022 See Instructions , Lancets for blood glucose testing twice daily. 90 day supply., # 1 EA, 3 Refill(s), Pharmacy: [place] [id number], DMII (diabetes mellitus, type 2), 172.7, cm, 10/08/22 10:00:00 EST, Height, 85 Start: 10-08-2022 See Instructions , Blood glucose test strips for home blood glucose testing twice daily. #6 boxes for 90 day supply. Please make sure test strips match glucometer., # 1 EA, 3 Refill(s), Pharmacy: [place] [id number], DMII (diabetes mellitus, type 2), 172.7, cm, 10/08/22 10:00:00 EST, Height, 85 Start: 10-08-2022 See Instructions , Lancets for blood glucose testing twice daily. 90 day supply., # 1 EA, 3 Refill(s), Pharmacy: [place] [id number], DMII (diabetes mellitus, type 2), 172.7, cm, 10/08/22 10:00:00 EST, Height, 85 Start: 10-08-2022 See Instructions , Blood glucose test strips for home blood glucose testing twice daily. #6 boxes for 90 day supply. Please make sure test strips match glucometer., # 1 EA, 3 Refill(s), Pharmacy: [place] [id number], DMII (diabetes mellitus, type 2), 172.7, cm, 10/08/22 10:00:00 EST, Height, 85 Start: 10-08-2022 See Instructions , Lancets for blood glucose testing twice daily. 90 day supply., # 1 EA, 3 Refill(s), Pharmacy: [place] [id number], DMII (diabetes mellitus, type 2), 172.7, cm, 10/08/22 10:00:00 EST, Height, 85 Start: 10-08-2022 See Instructions , Blood glucose test strips for home blood glucose testing twice daily. #6 boxes for 90 day supply. Please make sure test strips match glucometer., # 1 EA, 3 Refill(s), Pharmacy: [place] [id number], DMII (diabetes mellitus, type 2), 172.7, cm, 10/08/22 10:00:00 EST, Height, 85 Start: 10-08-2022 See Instructions , Lancets for blood glucose testing twice daily. 90 day supply., # 1 EA, 3 Refill(s), Pharmacy: [place] [id number], DMII (diabetes mellitus, type 2), 172.7, cm, 10/08/22 10:00:00 EST, Height, 85 Start: 10-08-2022 See Instructions , Blood glucose test strips for home blood glucose testing twice daily. #6 boxes for 90 day supply. Please make sure test strips match glucometer., # 1 EA, 3 Refill(s), Pharmacy: [place] [id number], DMII (diabetes mellitus, type 2), 172.7, cm, 10/08/22 10:00:00 EST, Height, 85 Start: 10-08-2022 See Instructions , Lancets for blood glucose testing twice daily. 90 day supply., # 1 EA, 3 Refill(s), Pharmacy: [place] [id number], DMII (diabetes mellitus, type 2), 172.7, cm, 10/08/22 10:00:00 EST, Height, 85 Start: 10-08-2022 See Instructions , Blood glucose test strips for home blood glucose testing twice daily. #6 boxes for 90 day supply. Please make sure test strips match glucometer., # 1 EA, 3 Refill(s), Pharmacy: [place] [id number], DMII (diabetes mellitus, type 2), 172.7, cm, 10/08/22 10:00:00 EST, Height, 85 Start: 10-08-2022 See Instructions , Lancets for blood glucose testing twice daily. 90 day supply., # 1 EA, 3 Refill(s), Pharmacy: [place] [id number], DMII (diabetes mellitus, type 2), 172.7, cm, 10/08/22 10:00:00 EST, Height, 85 Start: 10-08-2022 See Instructions , Blood glucose test strips for home blood glucose testing twice daily. #6 boxes for 90 day supply. Please make sure test strips match glucometer., # 1 EA, 3 Refill(s), Pharmacy: [place] [id number], DMII (diabetes mellitus, type 2), 172.7, cm, 10/08/22 10:00:00 EST, Height, 85 Start: 10-08-2022 See Instructions , Lancets for blood glucose testing twice daily. 90 day supply., # 1 EA, 3 Refill(s), Pharmacy: [place] [id number], DMII (diabetes mellitus, type 2), 172.7, cm, 10/08/22 10:00:00 EST, Height, 85 Start: 10-08-2022 See Instructions , Blood glucose test strips for home blood glucose testing twice daily. #6 boxes for 90 day supply. Please make sure test strips match glucometer., # 1 EA, 3 Refill(s), Pharmacy: [place] [id number], DMII (diabetes mellitus, type 2), 172.7, cm, 10/08/22 10:00:00 EST, Height, 85 Start: 10-08-2022 See Instructions , Lancets for blood glucose testing twice daily. 90 day supply., # 1 EA, 3 Refill(s), Pharmacy: [facility], DMII (diabetes mellitus, type 2), 172.7, cm, 10/08/22 10:00:00 EST, Height, 85 Start: 10-08-2022 See Instructions , PEN NEEDLES 32GX5/32, USE UD QID, [facility]: [id number], # 100 EA, 3 Refill(s), Pharmacy: [facility], 175, cm, 09/01/24 13:07:00 EST, Height, 101.5, kg, 09/01/24 13:07:00 EST, Dosing Weight Start: 10-15-2024 Functional Status Date Assessment Result Facility 08-14-2024 Functional Status Other: 7am-2pm [facility] 08-14-2024 Functional Status [facility] 08-14-2024 Functional Status [facility] 08-14-2024 Functional Status Room located n ear nursing station, Non-Slip footwear, Room check performed [facility] 08-14-2024 Functional Status [facility] 08-14-2024 Functional Status [facility] 08-14-2024 Functional Status [facility] 08-13-2024 Functional Status [facility] 08-13-2024 Functional Status Mobile home [facility] 08-13-2024 Functional Status Refused [facility] 08-13-2024 Functional Status [facility] 08-12-2024 Functional Status [facility] 08-12-2024 Functional Status Environmental Safety Implemented Adequate room lighting, Bed in low position, Call device within reach [facility] Mental Status Date Assessment Result Facility 08-14-2024 Mental Status Oriented x 4 [facility] 08-13-2024 Mental Status [facility] 08-13-2024 Mental Status [facility] 04-04-2022 Cognitive function Awake;Alert;A ppropriate;Follow s Commands [facility] Work Phone: 03-11-2022 Cognitive function Level Of Cons ciousness Awake;Alert;Appropriate;Follow s Commands [facility] Work Phone: Clinical Notes 04-15-2013 to 08-18-2024 Note Date & Type Note Facility 08-18-2024 Note . MICRO - Microbiology PROCEDURE: Blood Culture (bacterial) [*1] SOURCE: Blood BODY SITE: COLLECTED DATE/TIME: 08/12/2024 20:54 EST RECEIVED DATE/TIME: 08/13/2024 15:05 EST START DATE/TIME: 08/13/2024 15:06 EST FREE TEXT SOURCE: FINAL REPORTS Final Report [] Verified Date/Time/Personnel: 08/18/2024 15:59 EST Blood Culture: No Growth at 5 days. PRELIMINARY REPORTS Preliminary Report [] Verified Date/Time/Personnel: 08/13/2024 15:59 EST Culture has been received in lab and is no growth to date. Routine cultures are held for 5 days. Performing Locations *1: This test was performed at: [address], [address] [place] [address] 08-18-2024 Note . MICRO - Microbiology PROCEDURE: Blood Culture (bacterial) [*1] SOURCE: Blood BODY SITE: COLLECTED DATE/TIME: 08/12/2024 20:54 EST RECEIVED DATE/TIME: 08/13/2024 15:06 EST START DATE/TIME: 08/13/2024 15:06 EST FREE TEXT SOURCE: FINAL REPORTS Final Report [] Verified Date/Time/Personnel: 08/18/2024 16:00 EST Blood Culture: No Growth at 5 days. PRELIMINARY REPORTS Preliminary Report [] Verified Date/Time/Personnel: 08/13/2024 15:59 EST Culture has been received in lab and is no growth to date. Routine cultures are held for 5 days. Performing Locations *1: This test was performed at: [facility], [address] [place] [address], [id number] , [place] 08-14-2024 Hospital Discharge instructions Patient Education 08/14/2024 10:44:29 Viral Illness, Adult Viral Illness, Adult Viruses are tiny germs that can get into a person's body and cause illness. There are many different types of viruses, and they cause many types of illness. Viral illnesses can range from mild to severe. They can affect various parts of the body. Common illnesses that are caused by a virus include colds and the flu. Viral illnesses also include serious conditions such as HIV/AIDS (human immunodeficiency virus/acquired immunodeficiency syndrome). A few viruses have been linked to certain cancers. What are the causes? Many types of viruses can cause illness. Viruses invade cells in your body, multiply, and cause the infected cells to malfunction or . When the cell dies, it releases more of the virus. When this happens, you develop symptoms of the illness, and the virus continues to spread to other cells. If the virus takes over the function of the cell, it can cause the cell to divide and grow out of control, as is the case when a virus causes cancer. Different viruses get into the body in different ways. You can get a virus by: Swallowing food or water that is contaminated with the virus. Breathing in droplets that have been coughed or sneezed into the air by an infected person. Touching a surface that has been contaminated with the virus and then touching your eyes, nose, or mouth. Being bitten by an insect or animal that carries the virus. Having sexual contact with a person who is infected with the virus. Being exposed to blood or fluids that contain the virus, either through an open cut or during a transfusion. If a virus enters your body, your body's defense system (immune system) will try to fight the virus. You may be at higher risk for a viral illness if your immune system is weak. What are the signs or symptoms? Symptoms vary depending on the type of virus and the location of the cells that it invades. Common symptoms of the main types of viral illnesses include: Cold and flu viruses Fever. Headache. Sore throat. Muscle aches. Nasal congestion. Cough. Digestive system (gastrointestinal) viruses Fever. Abdominal pain. Nausea. Diarrhea. Liver viruses (hepatitis) Loss of appetite. Tiredness. Yellowing of the skin (jaundice). Brain and spinal cord viruses Fever. Headache. Stiff neck. Nausea and vomiting. Confusion or sleepiness. Skin viruses Warts. Itching. Rash. Sexually transmitted viruses Discharge. Swelling. Redness. Rash. How is this treated? Viruses can be difficult to treat because they live within cells. Antibiotic medicines do not treat viruses because these drugs do not get inside cells. Treatment for a viral illness may include: Resting and drinking plenty of fluids. Medicines to relieve symptoms. These can include uclt-mpy-qpmvbwm medicine for pain and fever, medicines for cough or congestion, and medicines to relieve diarrhea. Antiviral medicines. These drugs are available only for certain types of viruses. They may help reduce flu symptoms if taken early. There are also many antiviral medicines for hepatitis and HIV/AIDS. Some viral illnesses can be prevented with vaccinations. A common example is the flu shot. Follow these instructions at home: Medicines Take afcg-aau-labynps and prescription medicines only as told by your health care provider. If you were prescribed an antiviral medicine, take it as told by your health care provider. Do not stop taking the medicine even if you start to feel better. Be aware of when antibiotics are needed and when they are not needed. Antibiotics do not treat viruses. If your health care provider thinks that you may have a bacterial infection as well as a viral infection, you may get an antibiotic. ?Do not ask for an antibiotic prescription if you have been diagnosed with a viral illness. That will not make your illness go away faster. ?Frequently taking antibiotics when they are not needed can lead to antibiotic resistance. When this develops, the medicine no longer works against the bacteria that it normally fights. General instructions Drink enough fluids to keep your urine clear or pale yellow. Rest as much as possible. Return to your normal activities as told by your health care provider. Ask your health care provider what activities are safe for you. Keep all follow-up visits as told by your health care provider. This is important. How is this prevented? Take these actions to reduce your risk of viral infection: Eat a healthy diet and get enough rest. Wash your hands often with soap and water. This is especially important when you are in public places. If soap and water are not available, use hand sanitarian inspector. Avoid close contact with friends and family who have a viral illness. If you travel to areas where viral gastrointestinal infection is common, avoid drinking water or eating raw food. Keep your immunizations up to date. Get a flu shot every year as told by your health care provider. Do not share toothbrushes, nail clippers, razors, or needles with other people. Always practice safe sex. Contact a health care provider if: You have symptoms of a viral illness that do not go away. Your symptoms come back after going away. Your symptoms get worse. Get help right away if: You have trouble breathing. You have a severe headache or a stiff neck. You have severe vomiting or abdominal pain. This information is not intended to replace advice given to you by your health care provider. Make sure you discuss any questions you have with your health care provider. Document Released: 11/29/2016 Document Revised: 07/03/2018 Document Reviewed: 11/29/2016 [employer] Patient Education 2020 [employer]. 08/14/2024 10:44:01 Nausea and Vomiting, Adult, [id number] Nausea and Vomiting, Adult Nausea is feeling sick to your stomach or feeling that you are about to throw up (vomit). Vomiting is when food in your stomach is thrown up and out of the mouth. Throwing up can make you feel weak. It can also make you lose too much water in your body (get dehydrated). If you lose too much water in your body, you may: Feel tired. Feel thirsty. Have a dry mouth. Have cracked lips. Go pee (urinate) less often. Older adults and people with other diseases or a weak body defense system (immune system) are at higher risk for losing too much water in the body. If you feel sick to your stomach and you throw up, it is important to follow instructions from your doctor about how to take care of yourself. Follow these instructions at home: Watch your symptoms for any changes. Tell your doctor about them. Follow these instructions to care for yourself at home. Eating and drinking Take an ORS (oral rehydration solution). This is a drink that is sold at pharmacies and stores. Drink clear fluids in small amounts as you are able, such as: ?Water. ?Ice chips. ?Fruit juice that has water added (diluted fruit juice). ?Low-calorie sports drinks. Eat bland, rhdr-ie-dwqyxd foods in small amounts as you are able, such as: ?Bananas. ?Applesauce. ?Rice. ?Low-fat (lean) meats. ?[place]. ?Crackers. Avoid drinking fluids that have a lot of sugar or caffeine in them. This includes energy drinks, sports drinks, and soda. Avoid alcohol. Avoid spicy or fatty foods. General instructions Take lwwo-kgv-ebkealq and prescription medicines only as told by your doctor. Drink enough fluid to keep your pee (urine) pale yellow. Wash your hands often with soap and water. If you cannot use soap and water, use hand sanitarian inspector. Make sure that all people in your home wash their hands well and often. Rest at home while you get better. Watch your condition for any changes. Take slow and deep breaths when you feel sick to your stomach. Keep all follow-up visits as told by your doctor. This is important. Contact a doctor if: Your symptoms get worse. You have new symptoms. You have a fever. You cannot drink fluids without throwing up. You feel sick to your stomach for more than 2 days. You feel light-headed or dizzy. You have a headache. You have muscle cramps. You have a rash. You have pain while peeing. Get help right away if: You have pain in your chest, neck, arm, or jaw. You feel very weak or you pass out (faint). You throw up again and again. You have throw up that is bright red or looks like black coffee grounds. You have bloody or black poop (stools) or poop that looks like tar. You have a very bad headache, a stiff neck, or both. You have very bad pain, cramping, or bloating in your belly (abdomen). You have trouble breathing. You are breathing very quickly. Your heart is beating very quickly. Your skin feels cold and clammy. You feel confused. You have signs of losing too much water in your body, such as: ?Dark pee, very little pee, or no pee. ?Cracked lips. ?Dry mouth. ?Sunken eyes. ?Sleepiness. ?Weakness. These symptoms may be an emergency. Do not wait to see if the symptoms will go away. Get medical help right away. Call your local emergency services (911 in the [place] Do not drive yourself to the hospital. Summary Nausea is feeling sick to your stomach or feeling that you are about to throw up (vomit). Vomiting is when food in your stomach is thrown up and out of the mouth. Follow instructions from your doctor about eating and drinking to keep from losing too much water in your body. Take awlc-hal-smnefil and prescription medicines only as told by your doctor. Contact your doctor if your symptoms get worse or you have new symptoms. Keep all follow-up visits as told by your doctor. This is important. This information is not intended to replace advice given to you by your health care provider. Make sure you discuss any questions you have with your health care provider. Document Released: 01/06/2009 Document Revised: 11/12/2019 Document Reviewed: 12/29/2018 [employer] Patient Education 2020 [employer]. 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 [facility] 08-14-2024 Note Discharge Instructions Thank you for allowing [facility] to assist you with your healthcare needs. The following is important discharge information regarding your hospital visit. Your Care Team Your Diagnosis Constipation Dehydration HTN (hypertension) Intractable vomiting with nausea Pneumonia Type 2 diabetes mellitus with stage 3 chronic kidney disease What to do next Instructions From Your Doctor You were admitted due to intractable nausea and vomiting and inability to take your home medications. Your nausea has improved since admission and you have been tolerating food and fluids without difficulty. You did appear to be dehydrated on admission but your labs improved to normal levels today. Be sure to continue to at least drink plenty of fluids at home to prevent becoming dehydrated again. Your labs today indicate normal kidney function so you no longer appear to be dehydrated. We checked a full respiratory panel on you and it shows you have rhinovirus/enterovirus. These particular viruses cause the common cold. Unfortunately, there is nothing to treat this and these viruses can take a few weeks to get over too. The CT of your abdomen/pelvis revealed questionable right lower lobe pneumonia. We will continue antibiotics for a few more days to cover you for pneumonia. You have maintained excellent oxygen saturations on room air since your admission. We feel that you are medically optimized for discharge home today. You stated that you get nauseated intermittently at home and already have oral zofran available to you. Please follow-up with your PCP in the next week or so for post-hospitalization follow-up. If you have any new or worsening problems, please call your PCP or return to the ED. Scheduled Follow-Up Appointments Appointment Type When With Where Contact Information StatusPC OV 12/08/2024 11:00 AM EDT CHANTALE RAMSEY [address] [phone] Confirmed Follow Up Appointments Follow Up with CHANTALE RAMSEY When:Within 3-5 days Where:[address] [place] [phone] Additional Information: Please call to schedule your post-hospital follow-up appointment. The Following Activity and Diet Have Been Ordered for You Discharge Activity - Ordered -- Resume your pre-hospitalization activity, 08/14/24 10:54:00 EST Discharge Diet - Ordered -- No changes were made to your diet during your hospital stay. Please resume your pre hospitalization diet on discharge., 08/14/24 10:54:00 EST The Following Equipment Has Been Ordered for You Home Equipment - Blood Glucose monitor No qualifying data available. Allergies Metoprolol Tartrate(Severe) Telithromycin sulfamethoxazole-trimethoprim(Sev ere) Sweating, Abdominal pain, Vomiting Humira Latuda Fatigue Pioglitazone Hydrochloride Pneumovax 23 Difficulty breathing Seroquel Pt states she felt drunk Statins TraMADol Hydrochloride acetaminophen adalimumab amoxicillin unknown codeine Itching doxycycline unknown etanercept leflunomide methylphenidate misc non-codified allergy Anaphylaxis morphine-naltrexone oxyMORphone telithromycin Medications Please ask your primary doctor or pharmacist before taking any other medication not listed, including over the counter drugs, herbal medications, vitamins and or supplements as they may interact with your home medications. What How Much When Why Instructions Last Dose New cefdinir (cefdinir 300 mg oral capsule) 1 cap by mouth Every 12 hours Duration: 2 Days Pickup at [facility] START TOMORROW 08/15/2024 08/14/24 IV ROCEPHIN Changed cholecalciferol (cholecalciferol 50 mcg (2000 intl units) oral capsule) 1 cap by mouth Every day NONE Changed dulaglutide (Trulicity Pen 3 mg/ 0.5 mL subcutaneous solution) 0.5 Milliliter Subcutaneous Every week rotate injection sites NONE Unchanged albuterol (albuterol MDI (90 mcg/ inh) CFC free inhalation aerosol) 2 puff(s) by inhalation Every 6 hours as needed for as needed for wheezing Shortness of breath Duration: 30 Days NONE Unchanged allopurinol (allopurinol 100 mg oral tablet) 1 tab(s) by mouth Once a day 08/14/24 Unchanged dextromethorphan (DayQuil Cough 15 mg/ 15 mL oral liquid) by mouth Every 4 hours as needed for as needed for cough NONE Unchanged DME (Continuous Glucose Monitoring System) See instructions Uncontrolled diabetes mellitus with hypoglycemia Freestyle Tanmay 2 sensors for continuous glucose moitoring. #7 sensors for 90 day supply Unchanged DME (DME MISCellaneous) See instructions DMII (diabetes mellitus, type 2) Supply 1 glucometer for blood glucose testing at home twice daily. . Unchanged DME (DME MISCellaneous) See instructions Patient needs refill on Freestyle Tanmay 2 senors She has been out for a week Unchanged DME (DME MISCellaneous) See instructions DMII (diabetes mellitus, type 2) Lancets for blood glucose testing twice daily. 90 day supply. Unchanged DME (DME MISCellaneous) See instructions DMII (diabetes mellitus, type 2) alcohol swabs for twice daily blood glucose testing. 90 day supply. Unchanged DME (DME MISCellaneous) See instructions DMII (diabetes mellitus, type 2) Blood glucose test strips for home blood glucose testing twice daily. #6 boxes for 90 day supply. Please make sure test strips match glucometer. Unchanged DME (Pen needles) See instructions PEN NEEDLES 32GX5/ 32, USE UD D, [facility]: [address]-47 Unchanged DULoxetine (DULoxetine 60 mg oral delayed release capsule) 2 cap by mouth Once a day Duration: 90 Days 08/14/24 Unchanged esketamine (Spravato 28 mg/ device (84 mg dose) nasal spray) NONE Unchanged ezetimibe (ezetimibe 10 mg oral tablet) 1 tab(s) by mouth Every day 08/14/24 Unchanged furosemide (Lasix 20 mg oral tablet) 1 tab(s) by mouth Once a day NONE Unchanged ibuprofen (ibuprofen 800 mg oral tablet) 1 tab(s) by mouth Every 8 hours NONE Unchanged insulin aspart (Novolog) (NovoLOG 100 units/ mL injectable solution) 15 unit(s) Subcutaneous Three (3) times a day before meals 08/14/24 1130AM Unchanged insulin glargine (Basaglar 100 unit(s)/ mL 3 mL KwikPen) 30 unit(s) Subcutaneous Every day 08/14/24 8AM Unchanged lactobacillus acidophilus (Acidophilus Probiotic Blend oral capsule) 1 cap by mouth Once a day Nausea Bloating Duration: 30 Days NONE Unchanged losartan (losartan 100 mg oral tablet) 1 tab(s) by mouth Once a day Duration: 90 Days 08/14/24 Unchanged magnesium oxide (magnesium oxide 400 mg oral tablet) 1 tab(s) TAKE 1 CAPSULE BY MOUTH EVERY DAY NONE Unchanged omega-3 polyunsaturated fatty acids (omega-3 polyunsaturated fatty acids ethyl esters 1000 mg oral capsule) 1 cap by mouth Two (2) times a day TAKE ONE Capsule BY MOUTH TWICE DAILY NONE Unchanged omeprazole (omeprazole 40 mg oral delayed release capsule) 1 cap by mouth Once a day 08/14/24 PROTONIX Unchanged ondansetron (ondansetron 4 mg oral tablet, disintegrating) 1 tab(s) by mouth Every 6 hours as needed for Nausea/Vomiting NONE Unchanged polyethylene glycol 3350 (MiraLax oral powder for reconstitution) 17 gram(s) by mouth Once a day Constipation Duration: 30 Days 08/13/24 Pharmacy Information [facility]: [address] [place], [place] [phone] Please take this list to your next doctor s visit. Bring all medications you take, including over the counter medications, herbals and other supplements with you to your doctor s visit. Patients and families are reminded to discard old lists and to update any records with all medication providers or retail pharmacies. Medication Leaflets cefdinir ([facility]) What is the most important information I should know about cefdinir? Do not take this medicine if you are allergic to cefdinir, or to similar antibiotics, such as Ceftin, Cefzil, Keflex, and others. What is cefdinir? Cefdinir is a cephalosporin (SEF a low spor in) antibiotic that is used to treat many different types of infections caused by bacteria. Cefdinir may also be used for purposes not listed in this medication guide. What should I discuss with my healthcare provider before taking cefdinir? You should not take this medicine if you are allergic to cefdinir or any other cephalosporin antibiotic (cefadroxil, cefprozil, cefazolin, cefalexin, Keflex, and others). Tell your doctor if you have ever had: kidney disease (or if you are on dialysis); intestinal problems, such as colitis; or an allergy to any drugs (especially penicillins). Cefdinir liquid contains sucrose. Talk to your doctor before using this form of cefdinir if you have diabetes. Tell your doctor if you are or . How should I take cefdinir? Follow all directions on your prescription label and read all medicine guides or instruction sheets. Use the medicine exactly as directed. Shake the oral suspension (liquid) before you measure a dose. Use the dosing syringe provided, or use a medicine dose-measuring device (not a kitchen spoon). You may take cefdinir with or without food. Use this medicine for the full prescribed length of time, even if your symptoms quickly improve. Skipping doses can increase your risk of infection that is resistant to medication. Cefdinir will not treat a viral infection such as the flu or a common cold. Cefdinir can affect the results of certain medical tests. Tell any doctor who treats you that you are using cefdinir. Store at room temperature away from moisture and heat. Throw away any unused cefdinir liquid that is older than 10 days. What happens if I miss a dose? Take the medicine as soon as you can, but skip the missed dose if it is almost time for your next dose. Do not take two doses at one time. What happens if I overdose? Seek emergency medical attention or call the Poison Help line at . Overdose symptoms may include nausea, vomiting, stomach pain, diarrhea, or a seizure. What should I avoid while taking cefdinir? Avoid using antacids or mineral supplements that contain aluminum, magnesium, or iron within 2 hours before or after taking cefdinir. Antacids or iron can make it harder for your body to absorb cefdinir. This does not include baby formula fortified with iron. Antibiotic medicines can cause diarrhea, which may be a sign of a new infection. If you have diarrhea that is watery or bloody, call your doctor before using anti-diarrhea medicine. What are the possible side effects of cefdinir? Get emergency medical help if you have signs of an allergic reaction (hives, difficult breathing, swelling in your face or throat) or a severe skin reaction (fever, sore throat, burning eyes, skin pain, red or purple skin rash with blistering and peeling). Call your doctor at once if you have: severe stomach pain, diarrhea that is watery or bloody (even if it occurs months after your last dose); fever, chills, body aches, flu symptoms; pale skin, easy bruising, unusual bleeding; seizure (convulsions); fever, weakness, confusion; dark colored urine, jaundice (yellowing of the skin or eyes); or kidney problems--little or no urination, swelling in your feet or ankles, feeling tired or short of breath. Common side effects may include: nausea, vomiting, stomach pain, diarrhea; vaginal itching or discharge; headache; or rash (including diaper rash in an infant taking liquid cefdinir. This is not a complete list of side effects and others may occur. Call your doctor for medical advice about side effects. You may report side effects to FDA at 0-025-BPH-9205. What other drugs will affect cefdinir? Tell your doctor about all your other medicines, especially: probenecid; or vitamin or mineral supplements that contain iron. This list is not complete. Other drugs may affect cefdinir, including prescription and fgrd-fhf-uqzspdj medicines, vitamins, and herbal products. Not all possible drug interactions are listed here. Where can I get more information? Your pharmacist can provide more information about cefdinir. Remember, keep this and all other medicines out of the reach of children, never share your medicines with others, and use this medication only for the indication prescribed. Every effort has been made to ensure that the information provided by [employer]') is accurate, up-to-date, and complete, but no guarantee is made to that effect. Drug information contained herein may be time sensitive. [employer] information has been compiled for use by healthcare practitioners and consumers in the [place] and therefore [employer] does not warrant that uses outside of the [place] are appropriate, unless specifically indicated otherwise. [employer] drug information does not endorse drugs, diagnose patients or recommend therapy. [employer] drug information is an informational resource designed to assist licensed healthcare practitioners in caring for their patients and/or to serve consumers viewing this service as a supplement to, and not a substitute for, the expertise, skill, knowledge and judgment of healthcare practitioners. The absence of a warning for a given drug or drug combination in no way should be construed to indicate that the drug or drug combination is safe, effective or appropriate for any given patient. [facility] does not assume any responsibility for any aspect of healthcare administered with the aid of information [facility] provides. The information contained herein is not intended to cover all possible uses, directions, precautions, warnings, drug interactions, allergic reactions, or adverse effects. If you have questions about the drugs you are taking, check with your doctor, nurse or pharmacist. Copyright 6782-5605 [facility] [employer]. Version: 9.. Revision Date: 03/07/2023. Education Materials Viral Illness, Adult Viruses are tiny germs that can get into a person's body and cause illness. There are many different types of viruses, and they cause many types of illness. Viral illnesses can range from mild to severe. They can affect various parts of the body. Common illnesses that are caused by a virus include colds and the flu. Viral illnesses also include serious conditions such as HIV/AIDS (human immunodeficiency virus/acquired immunodeficiency syndrome). A few viruses have been linked to certain cancers. What are the causes? Many types of viruses can cause illness. Viruses invade cells in your body, multiply, and cause the infected cells to malfunction or . When the cell dies, it releases more of the virus. When this happens, you develop symptoms of the illness, and the virus continues to spread to other cells. If the virus takes over the function of the cell, it can cause the cell to divide and grow out of control, as is the case when a virus causes cancer. Different viruses get into the body in different ways. You can get a virus by: Swallowing food or water that is contaminated with the virus. Breathing in droplets that have been coughed or sneezed into the air by an infected person. Touching a surface that has been contaminated with the virus and then touching your eyes, nose, or mouth. Being bitten by an insect or animal that carries the virus. Having sexual contact with a person who is infected with the virus. Being exposed to blood or fluids that contain the virus, either through an open cut or during a transfusion. If a virus enters your body, your body's defense system (immune system) will try to fight the virus. You may be at higher risk for a viral illness if your immune system is weak. What are the signs or symptoms? Symptoms vary depending on the type of virus and the location of the cells that it invades. Common symptoms of the main types of viral illnesses include: Cold and flu viruses Fever. Headache. Sore throat. Muscle aches. Nasal congestion. Cough. Digestive system (gastrointestinal) viruses Fever. Abdominal pain. Nausea. Diarrhea. Liver viruses (hepatitis) Loss of appetite. Tiredness. Yellowing of the skin (jaundice). Brain and spinal cord viruses Fever. Headache. Stiff neck. Nausea and vomiting. Confusion or sleepiness. Skin viruses Warts. Itching. Rash. Sexually transmitted viruses Discharge. Swelling. Redness. Rash. How is this treated? Viruses can be difficult to treat because they live within cells. Antibiotic medicines do not treat viruses because these drugs do not get inside cells. Treatment for a viral illness may include: Resting and drinking plenty of fluids. Medicines to relieve symptoms. These can include axro-lls-qauwrfm medicine for pain and fever, medicines for cough or congestion, and medicines to relieve diarrhea. Antiviral medicines. These drugs are available only for certain types of viruses. They may help reduce flu symptoms if taken early. There are also many antiviral medicines for hepatitis and HIV/AIDS. Some viral illnesses can be prevented with vaccinations. A common example is the flu shot. Follow these instructions at home: Medicines Take vzat-evh-pqusqia and prescription medicines only as told by your health care provider. If you were prescribed an antiviral medicine, take it as told by your health care provider. Do not stop taking the medicine even if you start to feel better. Be aware of when antibiotics are needed and when they are not needed. Antibiotics do not treat viruses. If your health care provider thinks that you may have a bacterial infection as well as a viral infection, you may get an antibiotic. ? Do not ask for an antibiotic prescription if you have been diagnosed with a viral illness. That will not make your illness go away faster. ? Frequently taking antibiotics when they are not needed can lead to antibiotic resistance. When this develops, the medicine no longer works against the bacteria that it normally fights. General instructions Drink enough fluids to keep your urine clear or pale yellow. Rest as much as possible. Return to your normal activities as told by your health care provider. Ask your health care provider what activities are safe for you. Keep all follow-up visits as told by your health care provider. This is important. How is this prevented? Take these actions to reduce your risk of viral infection: Eat a healthy diet and get enough rest. Wash your hands often with soap and water. This is especially important when you are in public places. If soap and water are not available, use hand sanitarian inspector. Avoid close contact with friends and family who have a viral illness. If you travel to areas where viral gastrointestinal infection is common, avoid drinking water or eating raw food. Keep your immunizations up to date. Get a flu shot every year as told by your health care provider. Do not share toothbrushes, nail clippers, razors, or needles with other people. Always practice safe sex. Contact a health care provider if: You have symptoms of a viral illness that do not go away. Your symptoms come back after going away. Your symptoms get worse. Get help right away if: You have trouble breathing. You have a severe headache or a stiff neck. You have severe vomiting or abdominal pain. This information is not intended to replace advice given to you by your health care provider. Make sure you discuss any questions you have with your health care provider. Document Released: 11/29/2016 Document Revised: 07/03/2018 Document Reviewed: 11/29/2016 [employer] Patient Education 2020 [employer] Nausea and Vomiting, Adult Nausea is feeling sick to your stomach or feeling that you are about to throw up (vomit). Vomiting is when food in your stomach is thrown up and out of the mouth. Throwing up can make you feel weak. It can also make you lose too much water in your body (get dehydrated). If you lose too much water in your body, you may: Feel tired. Feel thirsty. Have a dry mouth. Have cracked lips. Go pee (urinate) less often. Older adults and people with other diseases or a weak body defense system (immune system) are at higher risk for losing too much water in the body. If you feel sick to your stomach and you throw up, it is important to follow instructions from your doctor about how to take care of yourself. Follow these instructions at home: Watch your symptoms for any changes. Tell your doctor about them. Follow these instructions to care for yourself at home. Eating and drinking Take an ORS (oral rehydration solution). This is a drink that is sold at pharmacies and stores. Drink clear fluids in small amounts as you are able, such as: ? Water. ? Ice chips. ? Fruit juice that has water added (diluted fruit juice). ? Low-calorie sports drinks. Eat bland, agih-ux-lefark foods in small amounts as you are able, such as: ? Bananas. ? Applesauce. ? Rice. ? Low-fat (lean) meats. ? [place]. ? Crackers. Avoid drinking fluids that have a lot of sugar or caffeine in them. This includes energy drinks, sports drinks, and soda. Avoid alcohol. Avoid spicy or fatty foods. General instructions Take kslr-pmu-xkhuskb and prescription medicines only as told by your doctor. Drink enough fluid to keep your pee (urine) pale yellow. Wash your hands often with soap and water. If you cannot use soap and water, use hand sanitarian inspector. Make sure that all people in your home wash their hands well and often. Rest at home while you get better. Watch your condition for any changes. Take slow and deep breaths when you feel sick to your stomach. Keep all follow-up visits as told by your doctor. This is important. Contact a doctor if: Your symptoms get worse. You have new symptoms. You have a fever. You cannot drink fluids without throwing up. You feel sick to your stomach for more than 2 days. You feel light-headed or dizzy. You have a headache. You have muscle cramps. You have a rash. You have pain while peeing. Get help right away if: You have pain in your chest, neck, arm, or jaw. You feel very weak or you pass out (faint). You throw up again and again. You have throw up that is bright red or looks like black coffee grounds. You have bloody or black poop (stools) or poop that looks like tar. You have a very bad headache, a stiff neck, or both. You have very bad pain, cramping, or bloating in your belly (abdomen). You have trouble breathing. You are breathing very quickly. Your heart is beating very quickly. Your skin feels cold and clammy. You feel confused. You have signs of losing too much water in your body, such as: ? Dark pee, very little pee, or no pee. ? Cracked lips. ? Dry mouth. ? Sunken eyes. ? Sleepiness. ? Weakness. These symptoms may be an emergency. Do not wait to see if the symptoms will go away. Get medical help right away. Call your local emergency services (911 in the [place] Do not drive yourself to the hospital. Summary Nausea is feeling sick to your stomach or feeling that you are about to throw up (vomit). Vomiting is when food in your stomach is thrown up and out of the mouth. Follow instructions from your doctor about eating and drinking to keep from losing too much water in your body. Take fxnc-czf-bukmwjc and prescription medicines only as told by your doctor. Contact your doctor if your symptoms get worse or you have new symptoms. Keep all follow-up visits as told by your doctor. This is important. This information is not intended to replace advice given to you by your health care provider. Make sure you discuss any questions you have with your health care provider. Document Released: 01/06/2009 Document Revised: 11/12/2019 Document Reviewed: 12/29/2018 [employer] Patient Education 2020 [employer]. Additional Information VACCINATE! IT SAVES LIVES! Members of the community who have not yet received the COVID-19 vaccine and would like to receive it can visit one of [facility] vaccine clinics. There are many vaccine clinic locations within the [facility]. For locations and available times, please visit https://gettheshot.coronavirus.[place].gov/. It is important to note that some COVID mobile vaccine clinics are held outdoors and may be canceled in rainy or stormy conditions. To learn more about pediatric vaccinations (ages 5-11), we invite you to visit the [facility] webpage. [email or web address] [email or web address] [email or web address]-[email or web address] To learn more about the COVID-19 vaccine, we invite you to visit the CDC website for a list of frequently asked questions.https://www.cdc.gov/cor onavirus/2019-ncov/vaccines/faq.h tml [employer] Qual[facility] Patient Portal Access Instructions: Stay connected with your healthcare team and access your personal medical information anytime with the [employer] Patient Portal. Please follow the directions below to create your REEL Qualified account: 1.Access the email account you provided upon registration to the hospital/physician office.2.Look for an invitation email from [facility].3.Open the email and access the invitation link: Accept Invitation to [facility] [facility].4.Fill in the required hart to create your account. To access your account, visit [email or web address]. Click the blue button labeled Access Patient Portal and then log in with the username and password that you created in the steps above. You will be able to view your test results, lab results, a summary of your visits, upcoming appointments and more. There is also a convenient messaging option where you can send secure messages to your provider. In addition, you will have the ability to download any documents or summaries to your computer and/or send the information securely to a physician. Remember that your healthcare information is confidential, so carefully consider who you will allow to register on the [facility] [facility] Patient Portal for access to your information. You can also access the [facility] [facility] Patient Portal on the [employer] bautista. Simply click on Patient Portal and then log into your account. If you would like to receive a full copy of your medical records, please contact the [facility] Medical Records Department by calling [phone], Friday through Friday between 8 a.m. and 4:30 p.m. HOW TO SAFELY DISPOSE OF PRESCRIPTION MEDICATIONS Please use one of the following methods to safely dispose of your unused medications. 1.Use a drug disposal kit: the drug disposal pouch allows you to safely discard your old and unused drugs. Ask your nurse to give you one when you are discharged.2.Visit a local take-back location: Many local pharmacies and police departments have programs that collect old and unwanted prescription drugs. Call your local pharmacy or go to http://[employer].Soapbox/7V6Rs0b to find one close to you.3.Make use of household items: Use cat litter or old coffee grounds to dispose medications if other options are not available. Mix your drugs with these household products, seal them in an airtight container and throw it into the garbage. Call [facility]: [phone] to be sure your drugs can be disposed of in this way. Some medicines may require a different approach.4.Never flush your medications down the toilet. IF YOU HAVE BEEN PRESCRIBED AN OPIOID FOR PAIN If you have been prescribed an opioid (such as hydrocodone, oxycodone or morphine), it is critical to understand the possible side effects and risks of opioid pain medications. Even when taken as directed, opioids can have several side effects including: Tolerance, meaning you might need to take more of a medication for the same pain relief. Nausea, vomiting and/or constipation. Sleepiness, dizziness, dry mouth, confusion, depression or itching. Physical dependence, meaning you have withdrawal symptoms when a medication is stopped, can develop within a few days. KNOW YOUR RESPONSIBILITIES It is important to know exactly how much and how often to take the opioid pain medications you are prescribed. Never take opioids in higher amounts or more often than prescribed. Do not combine opioids with alcohol or other drugs that cause drowsiness, such as benzodiazepines, also known as benzos, including diazepam and alprazolam, muscle relaxants or sleep aids. Never sell or share prescription opioids. This is illegal. Store opioids in a secure place and out of reach of others (including children, family, friends and visitors). The last page of this document has been signed and retained as a CHART COPY. Signatures Patient Education Materials Viral Illness, Adult Nausea and Vomiting, Adult, Aied-dq-Bamj Medication Leaflets cefdinir My discharge plan and instructions have been reviewed and explained to me and IALIREZA JANICE P understand my current condition and have read and understand these discharge instructions. I have received a written copy of the plan/instructions. If I have questions, I am aware that I should contact my doctor. Patient/Service Desk Manager Signature: Date/Time: Relationship to Patient: ____ Witness Name/Signature: Date/Time: [facility] 08-13-2024 Note . MICRO - Microbiology PROCEDURE: Streptococcus Pneumoniae Urine Antig [^1 *1] SOURCE: Urine BODY SITE: COLLECTED DATE/TIME: 08/12/2024 14:47 EST RECEIVED DATE/TIME: 08/13/2024 19:09 EST START DATE/TIME: 08/13/2024 19:09 EST FREE TEXT SOURCE: FINAL REPORTS Final Report [] Verified Date/Time/Personnel: 08/13/2024 20:24 EST Presumptive negative for pneumococcal pneumonia, suggesting no current or recent pneumococcal infection. Infection due to Strep pneumoniae cannot be ruled out since the antigen present in the sample may be below the detection limit of the test. Interpretive Data ^1: Streptococcus Pneumoniae Urine Antig This test has not been evaluated on patients taking antibiotics for greater than 24 hours or on patients who have recently completed an antibiotic regimen. The accuracy of this test has not been proven in young children. Performing Locations *1: This test was performed at: [facility], [address] [place] [address], [facility] , [facility] 08-13-2024 Note . MICRO - Microbiology PROCEDURE: Legionella Urine Ag [*1] SOURCE: Urine BODY SITE: COLLECTED DATE/TIME: 08/12/2024 14:47 EST RECEIVED DATE/TIME: 08/13/2024 19:09 EST START DATE/TIME: 08/13/2024 19:09 EST FREE TEXT SOURCE: FINAL REPORTS Final Report [] Verified Date/Time/Personnel: 08/13/2024 20:22 EST Presumptive negative for L. pneumophila serogroup 1 antigen in urine, suggesting no recent or current infection. Legionnaire's disease cannot be ruled out since other serogroups and species may also cause disease. Performing Locations *1: This test was performed at: [facility], [address] [place] [address], [id number] , [facility] 08-13-2024 Note Date of Service 08/13/2024 Chief Complaint nausea Subjective Patient seen and evaluated this morning while resting in bed. She is very tearful today and states that her family does not want to help her with anything. She goes on to state that after all she did for her kids, you would think they would be there for her now. Patient advised that her labs improved significantly from yesterday so there is really no medical reason why she would need extra help at home. Per nursing, she has been getting up on her own to use the restroom and get about in the room. Our rn social services saw patient and stated that patient continues to work part-time but told the rn social services she needs help with meals and housekeeping. Patient follows with a counselor for anxiety and depression and was supposed to start Spravato yesterday in her PCP's office for her severe anxiety. Suspect there is a psych component contributing to her illness. Patient advised that we will monitor her for another day but she will likely be discharged home tomorrow. neonatal social worker asked if patient should be seen by PT and OT but she has been getting up in the room by herself. Patient did not feel that she needed a therapy evaluation. Patient denies any fever, chills, cough, shortness of breath, chest pain, abdominal pain, or dysuria. She does report constipation which is a chronic problem for her. Will restart her home Miralax today. Objective Vitals and Measurements T: 36.7 C (Oral) TMIN: 36.4 C (Oral) TMAX: 37.1 C (Oral) HR: 87 (Monitored) RR: 18 BP: 155/89 SpO2: 98% HT: 172.7 cm WT: 102 kg BMI: 34.2 Intake and Output 7AM Yesterday to 7AM Today Intake and Output (Last 24 hours) Intake Oral Intake 430.00 Output Urine Count 4.00 Total Summary Total Intake 430.00 Total Output 0.00 Fluid Balance 430.00 Physical Exam General: No acute distress. Patient is alert, tearful. Skin: No rash. Skin is warm, dry and intact. HEENT: Head is normocephalic, atraumatic. Pupils are equal, round and reactive. Neck: Supple. No lymphadenopathy, thyromegaly. Lungs: Bilaterally clear but diminished without crepitation or wheeze. Unlabored. Heart: Heart is regular rhythm, S1, S2. No murmurs, gallops or rubs. Abdomen: Abdomen is soft, nontender. Bowels sounds present in all quadrants. Extremities: No clubbing, cyanosis, or edema. Peripheral pulses palpable. No calf tenderness. Neurological: Patient is awake and alert to person, place and time. Following simple commands, moving all extremities. Weight Current Weight Dosing Weight: 102 kg (08/12/24) Current Weight: 102 kg (08/13/24) Dosing Weight: 121 kg (08/12/24) Medications Medications (19) Active Scheduled: (9) allopurinol 100 mg tablet 100 mg 1 tab(s), Oral, qDay azithromycin 250 mg tablet 500 mg 2 tab(s), Oral, qDay cefTRIAXone 1 g, IV Piggyback, qDay duloxetine [address] capsule 120 mg 4 cap(s), Oral, qDay ezetimibe 10 mg tablet 10 mg 1 tab(s), Oral, Daily insulin glargine 100 units/ml solution 30 unit(s) 0.3 mL, Subcutaneous, Daily insulin lispro 100 units/mL Soln COA (3 mL) Give 0-5 units/dose, Subcutaneous, TIDAC losartan 50 mg tablet 100 mg 2 tab(s), Oral, qDay pantoprazole 20 mg EC tablet 40 mg 2 tab(s), Oral, qDayAC Continuous: (1) Lactated Ringers 1,000 mL 1,000 mL, Intravenous, 75 mL/hr PRN: (9) acetaminophen 325 mg Tablet 650 mg 2 tab(s), Oral, q4h acetaminophen 325 mg Tablet 650 mg 2 tab(s), Oral, q4h albuterol - ipratropium 2.5 mg-0.5 mg/3 mL Inhal Breana UD 3 mL, Inhalation, q4hRT benzonatate 100 mg Capsule 100 mg 1 cap(s), Oral, TID calcium carbonate 500 mg Chewable 500 mg 1 tab(s), Chewed, TID guaiFENesin 400 mg Tab 200 mg 0.5 tab(s), Oral, q4h LORAZEPam 0.5 mg tablet 0.5 mg 1 tab(s), Oral, BID melatonin 3 mg tablet 6 mg 2 tab(s), Oral, qHS ondansetron 2 mg/ 1 mL 2 mL INJ 4 mg 2 mL, IV Push, q4h Lab Results 08/13 05:23 WBC: 10.0 Hgb: 14.8 Hct: 44.4 Platelet: 279 Neutrophil %: 52.2 Glucose Level: 223 H Sodium Level: 139 Potassium Level: 4.1 BUN: 13 Creatinine Lvl (s): 0.71 08/12 14:47 WBC: 16.0 H Hgb: 17.1 H Hct: 50.0 H Platelet: 383 Neutrophil %: 70.9 Glucose Level: 315 H Sodium Level: 134 L Potassium Level: 5.0 BUN: 20 H Creatinine Lvl (s): 0.72 Imaging Results and Diagnostics CT Abd/Pelvis w/ IV Contrast Only Result Date: August 12, 2024 Verified By: MARINO ZULUAGA MD CLINICAL STATEMENT: IMPRESSION: Small ground-glass opacity in posterior right lower lobe, in the setting of vomiting possible sequela of aspiration versus infectious etiology. Otherwise no acute findings. I have personally reviewed the images of this examination and agree with the resident's findings and interpretation. XR Chest 1 View Result Date: August 12, 2024 Verified By: NADER CONNELL MD CLINICAL STATEMENT: IMPRESSION: Mild rotation to the left. Stable cardiomediastinal silhouette. No overt edema. No focal consolidation. Costophrenic angles are sharp. No pneumothorax. No acute skeletal abnormality. Lower cervical spine ACDF. No acute cardiopulmonary process. EKG EKG [[facility]] - Completed -- 08/12/24 14:40:00 EST, 08/12/24 14:40:00 EST Assessment/Plan 1. Intractable vomiting with nausea Acute, new onset, improving. Continue IV antiemetics PRN. Diet as tolerated. Encourage fluid intake. 2. Pneumonia Acute, new onset, possibly from aspiration, no hypoxia or leukocytosis this morning. Continue ceftriaxone 1 gram IV daily and azithromycin 500 mg IV daily. Check urine for legionella and strep pneumoniae - pending. Check mycoplasma antibody - pending. Check respiratory ID panel - pending. 3. Dehydration Resolved. Encourage PO intake. Stop IV fluids. 4. Type 2 diabetes mellitus with stage 3 chronic kidney disease Chronic. ADA diet as tolerated. Blood glucose goal of 180 or less and avoid hypoglycemia. 5. HTN (hypertension) Chronic. Continue current antihypertensives. SBP goal of 140 or less. DVT prophylaxis with SCDs. Code status: Full Code. Labs, diagnostic test and progress notes reviewed as noted in HPI. Plan of care discussed with patient. All questions answered. Patient verbalizes understanding and is agreeable with plan of care. This case was discussed with collaborating physician, Dr. Johan Tinsley. Anticipated Date of Discharge next 24 hours Time Spent 37 minutes spent reviewing past diagnostic tests, reviewing lab results, vital sign trends, medical history, reviewing medications and ordering home medications, examining patient, discussed plan of care with care team, collaborating with physician, and documenting in chart. Digitally Signed by ROSA BADILLO on 08/13/2024 01:06 PM [facility] 08-12-2024 Note Date of Service 08/12/2024 Chief Complaint Presents with a headache and vomiting. Was at [facility] and was sent here for eval History of Present Illness Patient is a 59-year-old female, who follows with Chantale Ramsey CNP with a past medical history significant for type 2 diabetes, hypertension, hyperlipidemia, TIA, asthma and anxiety, presented to [facility] emergency department with a constellation of symptoms. She reports that she has had cough, congestion, headache, and body aches for the past month. She was seen in a [facility] on 08/05 and diagnosed with an upper respiratory infection. She was started on an antibiotic and steroid and adds that she finished the course of both. She did not feel that she improved at all and in fact believes her symptoms worsened. About 4 days ago, she developed nausea and vomiting. Over the last few days, she has been able to keep her medications down. She also reports constipation and states she has had hard and dark stools but no blood. She was seen at [facility] today for her symptoms but states that she became lightheaded and dizzy while there and started vomiting again. She was advised to come to the ED to be evaluated. She also reports a headache that she attributes to dehydration. She denies any fever, chills, chest pain, abdominal pain, or dysuria. In the emergency department, chest x-ray revealed no acute cardiopulmonary process. CT of the abdomen/pelvis revealed small ground-glass opacity in posterior right lower lobe, in the setting of vomiting possible sequela of aspiration versus infectious etiology. EKG sinus rhythm. White blood cell count 16.0. CBC remarkable for hemoglobin 17.0 and hematocrit 50. BMP significant for glucose 315, sodium 134, and BUN 20. Lipase and troponin negative. Lactic acid 2.6. Urinalysis significant for specific gravity > 1.030, glucose 500, small bilirubin, trace ketones, and protein 100. Patient was administered 1500 cc NS, 500 mg azithromycin IV, 1 gram ceftriaxone IV as well as antiemetics in the ED. The case was discussed with the ED physician who recommended admission for treatment of intractable nausea and questionable pneumonia. She will be transferred to medical surgical unit for observation. We will start LR @ 75cc/hr. Continue ceftriaxone 1 gram IV and azithromycin 500 mg IV daily. Check urine for legionella and strep pneumoniae. Check mycoplasma antibody. Check respiratory ID panel. Continue IV antiemetics. Start diet as tolerated. Repeat CBC and BMP in the am. Patient seen and evaluated this afternoon while resting on the cot in the ED. Physical exam unremarkable. Discussed plan of care with patient and she is agreeable with the same. All questions answered. Review of Systems Review of Systems: Reviewed in detail, including general health, HEENT, cardiovascular, respiratory, gastrointestinal, genitourinary, endocrine, musculoskeletal, neurologic, vascular, skin, and psychiatric. All are negative except for those listed in the History of Present Illness. Physical Exam Vitals and Measurements T: 36.9 C (Oral) HR: 90 (Monitored) RR: 16 BP: 143/79 SpO2: 96% WT: 121 kg Weight Dosing Weight: 121 kg (08/12/24) General: No acute distress. Patient is alert, chronically ill-appearing. Skin: No rash. Skin is warm, dry and intact. HEENT: Head is normocephalic, atraumatic. Pupils are equal, round and reactive. Neck: Supple. No lymphadenopathy, thyromegaly. Lungs: Bilaterally clear but diminished without crepitation or wheeze. Unlabored. Heart: Heart is regular rhythm, S1, S2. No murmurs, gallops or rubs. Abdomen: Abdomen is soft, nontender. Bowels sounds present in all quadrants. Extremities: No clubbing, cyanosis, or edema. Peripheral pulses palpable. No calf tenderness. Neurological: Patient is awake and alert to person, place and time. Following simple commands, moving all extremities. Lab Results 08/12 14:47 WBC: 16.0 H Hgb: 17.1 H Hct: 50.0 H Platelet: 383 Neutrophil %: 70.9 Glucose Level: 315 H Sodium Level: 134 L Potassium Level: 5.0 BUN: 20 H Creatinine Lvl (s): 0.72 Imaging Results and Diagnostics CT Abd/Pelvis w/ IV Contrast Only Result Date: August 12, 2024 Verified By: MARINO ZULUAGA MD CLINICAL STATEMENT: IMPRESSION: Small ground-glass opacity in posterior right lower lobe, in the setting of vomiting possible sequela of aspiration versus infectious etiology. Otherwise no acute findings. I have personally reviewed the images of this examination and agree with the resident's findings and interpretation. XR Chest 1 View Result Date: August 12, 2024 Verified By: NADER CONNELL MD CLINICAL STATEMENT: IMPRESSION: Mild rotation to the left. Stable cardiomediastinal silhouette. No overt edema. No focal consolidation. Costophrenic angles are sharp. No pneumothorax. No acute skeletal abnormality. Lower cervical spine ACDF. No acute cardiopulmonary process. EKG EC08/12/24: Sinus rhythm Left atrial enlargement Baseline wander in lead(s) V1 Electronic Signature: JERAD GARCIA DO 08/12/2024 14:56:50 Assessment/Plan 1. Intractable vomiting with nausea Acute, new onset. Continue IV antiemetics PRN. Diet as tolerated. 2. Pneumonia Acute, new onset, possibly from aspiration, no hypoxia, leukocytosis noted. Continue ceftriaxone 1 gram IV daily and azithromycin 500 mg IV daily. Check urine for legionella and strep pneumoniae. Check mycoplasma antibody. Check respiratory ID panel. Repeat CBC in the am. 3. Dehydration Acute, secondary to intractable nausea and vomiting. Continue LR @ 75cc/hr x 24 hours. Repeat BMP in the am. 4. Type 2 diabetes mellitus with stage 3 chronic kidney disease Chronic. ADA diet as tolerated. Blood glucose goal of 180 or less and avoid hypoglycemia. 5. HTN (hypertension) Chronic. Continue current antihypertensives. SBP goal of 140 or less. DVT prophylaxis with SCDs. Code status: Full Code. Labs, diagnostic test and progress notes reviewed as noted in HPI. Plan of care discussed with patient. All questions answered. Patient verbalizes understanding and is agreeable with plan of care. This case was discussed with collaborating physician, Dr. Johan Tinsley. 76 minutes spent reviewing past diagnostic tests, reviewing lab results, vital sign trends, medical history, reviewing medications and ordering home medications, examining patient, discussed plan of care with care team, collaborating with physician, and documenting in chart. Problem List/Past Medical History Ongoing Anaphylactic reaction Alford angioma Concussion Constipation Coronary artery disease Ecchymosis of eye Elevated liver enzymes Encounter for examination following treatment at hospital Foot pain History of recent fall History of TIA due to embolism HLD (hyperlipidemia) HTN (hypertension) Hypokalemia Hypomagnesemia Low T4 Lower extremity edema Myalgia due to statin Peripheral neuropathy Raynaud's disease RSD (reflex sympathetic dystrophy) Sinusitis Type 2 diabetes mellitus with diabetic neuropathy Type 2 diabetes mellitus with stage 3 chronic kidney disease Uncontrolled hypertension UTI (urinary tract infection) Vomiting Historical Arthritis Asthma Diabetes Fracture of humerus GERD - Gastro-esophageal reflux disease HTN - Hypertension Reflex sympathetic dystrophy of lower limb Procedure/Surgical History Incision AND drainage: 10/06/20 Cervical discectomy: 09/28/20 Hysterectomy Tubal ligation Epidural injection of lumbar spine using fluoroscopic guidance Cholecystectomy Appendectomy Colonoscopy ORIF - Open reduction of fracture of ankle with internal fixation Shoulder Medications Home Medications (25) Active Acidophilus Probiotic Blend oral capsule 1 cap(s), Oral, qDay albuterol MDI (90 mcg/inh) CFC free inhalation aerosol 2 puff(s), PRN, Inhalation, q6hr allopurinol 100 mg oral tablet 100 mg = 1 tab(s), Oral, qDay Ativan 0.5 mg oral tablet 0.5 mg = 1 tab(s), PRN, Oral, BID Basaglar 100 unit(s)/mL 3 mL KwikPen 25u, Subcutaneous, Daily colchicine 0.6 mg oral capsule See Instructions Continuous Glucose Monitoring System See Instructions DayQuil Cough 15 mg/15 mL oral liquid , PRN, Oral, q4h DME MISCellaneous See Instructions DME MISCellaneous See Instructions DME MISCellaneous See Instructions DME MISCellaneous See Instructions DME MISCellaneous See Instructions DULoxetine 60 mg oral delayed release capsule 120 mg = 2 cap(s), Oral, qDay ezetimibe 10 mg oral tablet 10 mg = 1 tab(s), Oral, Daily ibuprofen 800 mg oral tablet 800 mg = 1 tab(s), Oral, q8h Lasix 20 mg oral tablet 20 mg = 1 tab(s), Oral, qDay losartan 100 mg oral tablet 100 mg = 1 tab(s), Oral, qDay MiraLax oral powder for reconstitution 17 gram(s), Oral, qDay NovoLOG 100 units/mL injectable solution 15 unit(s), Subcutaneous, TIDAC omeprazole 40 mg oral delayed release capsule 40 mg = 1 cap(s), Oral, qDay ondansetron 4 mg oral tablet, disintegrating 4 mg = 1 tab(s), PRN, Oral, q6h Pen needles See Instructions Trulicity Pen 0.75 mg/0.5 mL subcutaneous solution 0.75 mg, Subcutaneous, qWeek Vitamin D3 125 mcg (5000 intl units) oral capsule 125 mcg = 1 cap(s), Oral, Every other day Allergies Metoprolol Tartrate(Severe) Telithromycin sulfamethoxazole-trimethoprim(Sev ere) Sweating, Abdominal pain, Vomiting Humira Latuda Fatigue Pioglitazone Hydrochloride Pneumovax 23 Difficulty breathing Seroquel Pt states she felt drunk Statins TraMADol Hydrochloride acetaminophen adalimumab amoxicillin unknown codeine Itching doxycycline unknown etanercept leflunomide methylphenidate misc non-codified allergy Anaphylaxis morphine-naltrexone oxyMORphone telithromycin Social History Smoking Status - 07/16/2016 Never smoker Alcohol Use: Current. Type: Liquor. Frequency: Daily. Average drinks per day: 2., 09/20/2020 Employment/School Status: Employed. Description: [employer]., 02/09/2024 Home/Environment Domestic Concerns: None. Living situation: Home/Independent. Primary Director Clinical Research: Self. Lives In: Single level home. Current Home Treatments Blood glucose monitoring. Professional Skilled Services or Special Community Resources None. Financial concerns: Yes. Marital Status: Unmarried., 10/06/2020 Nutrition/Health Type of diet: Regular. Appetite Poor. Eating Difficulties Chewing, Swallowing. Enteral Feedings No. TPN Feedings No. Skin Breakdown Yes. Caffeine intake amount: denies., 10/06/2020 Substance Abuse Use: Never., 09/20/2020 Tobacco Nicotine Use: Never (less than 100 in lifetime)., 09/20/2020 Family History Alcohol abuse: Father, Sister, Brother and Grandparent. Arthritis: Father, Sister and Brother. Asthma: Grandparent. Diabetes mellitus: Mother and Father. HTN - Hypertension: Mother. Suicide attempt: Sister. Health Status Family Member(s) Immunizations tetanus/diphth/pertuss (Tdap) adult/adol: 0 unknown unit (03/26/16) Code Status Code Status - Ordered -- 08/12/24 17:13:00 EST, Full Code, Constant Order Digitally Signed by ROSA BADILLO on 08/12/2024 09:04 PM [facility] 08-12-2024 Note Exam Date Time Procedure Performing Provider Status 08/12/24 4:[address] Abd/Pelvis w/ IV Contrast Only MARINO MYERS MD; Auth (Verified) [id number] ORIGINAL EXAMINATION: CT OF THE ABDOMEN AND PELVIS WITH CONTRAST08/12/2024 4:24 pm TECHNIQUE: CT of the abdomen and pelvis was performed with the administration of intravenous contrast. Multiplanar reformatted images are provided for review. Automated exposure control, iterative reconstruction, and/or weight based adjustment of the mA/kV was utilized to reduce the radiation dose to as low as reasonably achievable. COMPARISON: None HISTORY: ORDERING SYSTEM PROVIDED HISTORY: Reason for Exam: intractable vomiting FINDINGS: Small ground-glass opacity in posterior right lower lobe. No pleural effusion or pericardial effusion.. The liver, spleen, adrenal glands, and pancreas are within normal limits. The gallbladder is surgically absent. The kidneys enhance symmetrically. The large and small bowel demonstrate no obstruction. The appendix is surgically absent. No free intraperitoneal fluid or gas is identified. Surgical clip in mid omental region. The aorta is normal in caliber. There is no lymphadenopathy. Uterus is surgically absent. Bladder is partially decompressed. The abdominal wall is unremarkable. There is no acute fracture or aggressive osseous lesion. Degenerative changes in spine. IMPRESSION: Small ground-glass opacity in posterior right lower lobe, in the setting of vomiting possible sequela of aspiration versus infectious etiology. Otherwise no acute findings. I have personally reviewed the images of this examination and agree with the resident's findings and interpretation. Interpreted by: Marino Zuluaga Preliminary Report By: Baldemar Pride Electronically signed By Marino Zuluaga Dictated Date: 08/12/2024 4:25:37 PM Prelim Date: 08/12/2024 4:34:12 PM Sign Date: 08/12/2024 4:38:38 PM Ordering Provider: JERAD GARCIA [facility]01-09-2025 Note* Exam Date Time Procedure Performing Provider Status 08/12/24 3:38 PM XR Chest 1 View NADER CONNELL MD; Auth (Verified) [id number] ORIGINAL EXAMINATION: ONE XRAY VIEW OF THE CHEST 08/12/2024 3:38 pm COMPARISON: 09/20/2020 HISTORY: ORDERING SYSTEM PROVIDED HISTORY: Reason for Exam: cough IMPRESSION: Mild rotation to the left. Stable cardiomediastinal silhouette. No overt edema. No focal consolidation. Costophrenic angles are sharp. No pneumothorax. No acute skeletal abnormality. Lower cervical spine ACDF. No acute cardiopulmonary process. Interpreted by: Nader Connell Preliminary Report By: Nader Connell Electronically signed By Nader Connell Dictated Date: 08/12/2024 3:43:07 PM Prelim Date: 08/12/2024 3:43:51 PM Sign Date: 08/12/2024 3:43:51 PM Ordering Provider: [facility]01-09-2025 HCoV 229E RNA JALIL+non-probe Ql (Nph) Not Detected *NA* (08/12/24 2:56 PM) Auto Viro/Sero [id number] Note* Exam Date Time Procedure Performing Provider Status 08/12/24 2:52 PM EKG [ED AO] - CV JERAD GARCIA DO; Auth (Verified) ECG Final Report Sinus rhythm Left atrial enlargement Baseline wander in lead(s) V1 Electronic Signature: JERAD GARCIA DO 08/12/2024 14:56:50 [facility]01-09-2025 Evaluation + Plan noteExtracted from: Title:History and Physical Author:ROSA BADILLO APRN-DESIGN VERIFICATION ENGINEER Date:08/12/24 1. Intractable vomiting with nausea Acute, new onset. Continue IV antiemetics PRN. Diet as tolerated. 2. Pneumonia Acute, new onset, possibly from aspiration, no hypoxia, leukocytosis noted. Continue ceftriaxone 1 gram IV daily and azithromycin 500 mg IV daily. Check urine for legionella and strep pneumoniae. Check mycoplasma antibody. Check respiratory ID panel. Repeat CBC in the am. 3. Dehydration Acute, secondary to intractable nausea and vomiting. Continue LR @ 75cc/hr x 24 hours. Repeat BMP in the am. 4. Type 2 diabetes mellitus with stage 3 chronic kidney disease Chronic. ADA diet as tolerated. Blood glucose goal of 180 or less and avoid hypoglycemia. 5. HTN (hypertension) Chronic. Continue current antihypertensives. SBP goal of 140 or less. DVT prophylaxis with SCDs. Code status: Full Code. Labs, diagnostic test and progress notes reviewed as noted in HPI. Plan of care discussed with patient. All questions answered. Patient verbalizes understanding and is agreeable with plan of care. This case was discussed with collaborating physician, Dr. Johan Tinsley. 76 minutes spent reviewing past diagnostic tests, reviewing lab results, vital sign trends, medical history, reviewing medications and ordering home medications, examining patient, discussed plan of care with care team, collaborating with physician, and documenting in chart. Future Appointments Appointment Date:12/08/2024 11:00:00 AM Scheduled Provider:CHANTALE RAMSEY Location:[facility] Appointment Type: OV Future Scheduled Tests Laboratory* Basic Metabolic Panel 06/09/24 * Thyroid Stimulating Hormone 06/09/24 * Free T4 06/09/24 * Complete Blood Count 06/09/24 [facility] 07-09-2024 Note. MICRO - Microbiology PROCEDURE: Urine Culture [*1] SOURCE: Urine, Clean Catch BODY SITE: COLLECTED DATE/TIME: 02/09/2024 15:30 EDT RECEIVED DATE/TIME: 02/09/2024 19:40 EDT START DATE/TIME: 02/09/2024 19:40 EDT FREE TEXT SOURCE: FINAL REPORTS Final Report [] Verified Date/Time/Personnel: 02/10/2024 14:06 EDT >100,000 cfu/ml Staphylococcus saprophyticus Routine sensitivity testing of urine isolates of S.saprophyticus is not advised because infections respond respond to concentrations achieved in urine of antimicrobial agents commonly used to treat acute, uncomplicated urinary tract infections (e.g., nitrofurantoin, fluoroquinolone, or trimethoprim +/- sulfamethoxazole). SUSCEPTIBILITY RESULTS Staphylococcus saprophyticus Antibiotic TR Dilut TR Inter ID Panel Not Not Applicable Applicable Performing Locations *1: This test was performed at: [facility], [address] [place] [address], [phone] , [facility] ([place])09-09-2023 Note ORIGINAL EXAMINATION: MRI OF THE BRAIN WITHOUT CONTRAST 09/09/2023 10:29 am TECHNIQUE: Multiplanar multisequence MRI of the brain was performed without the administration of intravenous contrast. COMPARISON: None. HISTORY: ORDERING SYSTEM PROVIDED HISTORY: Reason for Exam: post concussion syndrome FINDINGS: No acute infarct or hemorrhage. No midline shift, mass effect or hydrocephalus. No extra-axial fluid collection. No abnormal parenchymal susceptibility. No evidence of encephalomalacia. There are however a few scattered foci of T2 prolongation in the periventricular and subcortical white matter bilaterally. Findings are nonspecific. Basilar cisterns patent. Minimal sinus and mastoid inflammatory disease. IMPRESSION: No acute findings. No findings to suggest sequela of chronic traumatic brain injury. Mild nonspecific white matter disease. Primary differential considerations include sequela of migraine headaches, early chronic small vessel ischemic change and demyelination. Interpreted by: Moose Zuleta Preliminary Report By: Moose Zuleta Electronically signed By Moose Zuleta Dictated Date: 09/09/2023 4:39:08 PM Prelim Date: 09/09/2023 4:41:57 PM Sign Date: 09/09/2023 4:41:57 PM Ordering Provider: [facility]01-17-2024 Note. MICRO - Microbiology PROCEDURE: Urine Culture [*1] SOURCE: Urine, Clean Catch BODY SITE: COLLECTED DATE/TIME: 08/18/2023 11:18 EST RECEIVED DATE/TIME: 08/18/2023 21:01 EST START DATE/TIME: 08/18/2023 21:01 EST FREE TEXT SOURCE: FINAL REPORTS Final Report [] Verified Date/Time/Personnel: 08/20/2023 07:41 EST >100,000 cfu/ml Mixed growth consistent with normal urogenital logan. PRELIMINARY REPORTS Preliminary Report [] Verified Date/Time/Personnel: 08/19/2023 09:07 EST Culture results pending. Performing Locations *1: This test was performed at: [facility], [address] [place] [address], [phone]- , [facility] ([place])07-27-2023 Note. MICRO - Microbiology PROCEDURE: Urine Culture [*1] [...] Locations *1: This test was performed at: [address], [facility] , [facility] ([place])05-14-2023 Evaluation + Plan note Diagnostic Tests Pending * Ova & Parasite exam 05/14/23 Future Scheduled Tests Laboratory* Rapid HIV (AO) 02/18/23 * Basic Metabolic Panel 12/20/22 * Basic Metabolic Panel 01/17/23 * Complete Blood Count 01/17/23 [facility] 07-18-2023 Evaluation + Plan note Future Scheduled Tests Laboratory* Rapid HIV (AO) 02/18/23 * Basic Metabolic Panel 12/20/22 * Basic Metabolic Panel 01/17/23 * Complete Blood Count 01/17/23 [facility] 03-31-2023 NoteHNO ID: [id number] Author: MARY Manriquez Tech Service: ? Author Type: Melt Helper Type: Procedures Filed: 11/01/2022 2:17 PM Note Text: ZIO XT patch placed 11/01/2022, 2:30 p.m. Patient education completedBrigham And Women'[facility]03-31-2023 NoteHNO ID: [id number] Author: Dana Marvin APRN.CNP Service: Electrophysiology Author [...] and serum BGL 309 on presentation to [place] ED, ?sepsis with elevated lactate and leukocytosis, [...] polysubstance use abstinence Zio patch ordered Call [phone] to have applied on d/c Further outpatient EP follow up needs pending Zio patch results No further recommendations from EP standpoint. Will remain available as needed. Assessment and Recommendations discussed and collaborated with Dr. Holliday SIGNATURE: Dana Marvin, FRANCISCO.DESIGN VERIFICATION ENGINEER DATE: November 01, 2022 TIME: 8:56 AM CONTACTING [facility] CARDIOVASCULAR MEDICINE: Team A: (M-F 8:00 am - 5:00 pm) Dee Anton Scharfstein, Sparano, Vekstein, Wiseman, Gupta, Rogers - [place] [phone] Team B: (M-F 8:00 am - 5:00 pm) Nahomi Rivero Kruithoff, Mattina, Taraben, William, Abdelghany- [place] [phone] Night and Weekend Cardiovascular Medicine (consults, inpatient management questions, transfers, etc.): CALL [phone] (not the physician listed) - All calls triaged via answering service. Please include the patient's name, location, MRN, and 10-digit call-back number.[facility]03-30-2023 NoteHNO ID: [id number] Author: Yasmine Clifford, RN Service: Nursing Author Type: Registered Nurse Type: Progress Notes Filed: 10/31/2022 7:34 AM Note Text: 0230- pt arrived from [place] ED. Pt Aox3, oriented to room and educated professional development manager light use. States she has a headache [...] call light within reach, bed locked and low.[facility]03-30-2023 NoteHNO ID: [id number] Author: Sloan Will MD Service: Electrophysiology Author Type: Physician Type: Procedures Filed: 12/09/2022 5:20 PM Note Text: Patient Name: Chrissy Lay : 1965 Ordering Provider: DANA MARVIN Indication: [...] Bigeminy and Trigeminy were present. Sloan Will MDBrigham And Women'S Hospital08-01-2022 NoteHNO ID: [id number] Author: Andry Dunne MD Service: ? Author Type: Physician Type: Progress Notes Filed: 03/19/2022 1:26 PM Note Text: Andry Dunne MD Department of Orthopaedics Orthopaedics [address] [place] [id number] Dept: [phone] Dept March 04, 2022 CHIEF COMPLAINT: New [...] surgeries of right shoulder, but this is [facility], and explained that we cannot treat her for this unless Dr. Dunne agrees to take on care and become provider of record. Currently she sees Dr. Jones and Dr. Bishop. She does not want to go back to [place] for care. AMB ROOMING INTAKE FLOWSHEET DATA [...] INSTRUCTIONS: With a shoulder specialist Ms. Chrissy Lay was advised as to contrast therapies and/or to take analgesics/anti-inflammatories as needed and all contraindications were reviewed. OBJECTIVE: Ms. Chrissy Lay is a pleasant 56 year old in [...] subacromial bursa Informed Consent Consent Obtained: Verbal Murdock Protocol A moment to CARE was completed. [...] THE CORACOCLAVICULAR LIGAMENTS MAY REPRESENT LOW-GRADE SPRAIN. Principal Gifts Officer: PSCB Transcribe Date/Time: Jun 22 2021 4:06P Dictated by : NAYELY ZURITA MD This examination was interpreted and the report reviewed and electronically signed by: HENRY GILMORE MD on Jun 22 2021 5:18PM EST Results-Findings * * *Final Report* * * DATE OF EXAM: Jun 22 2021 3:21PM [facility] 0239 - MRI SHOULDER WO IVCON [...] mild tendinosis -Infraspinatus: I (more content not included)...[facility] 03-04-2022 History of Present illness Narrative* Andry Dunne MD - 03/04/2022 3:57 PM EDTAssociated Order(s): Large Joint Arthro/Inj: L subacromial bursa Post-Procedure Diagnose(s): Impingement syndrome of left shoulder; Chronic left shoulder pain Andry Dunne MD Department of Orthopaedics Orthopaedics [address] [facility] [address] Dept: [phone] Dept March 04, 2022 CHIEF COMPLAINT: New [...] surgeries of right shoulder, but this is [facility], and explained that we cannot treat her for this unless Dr. Dunne agrees to take on care and become provider of record. Currently she sees Dr. Jones and Dr. Bishop. She does not want to go back to [place] for care. AMB ROOMING INTAKE FLOWSHEET DATA [...] INSTRUCTIONS: With a shoulder specialist Ms. Chrissy Lay was advised as to contrast therapies and/or to take analgesics/anti-inflammatories as needed and all contraindications were reviewed. OBJECTIVE: Ms. Chrissy Lay is a pleasant 56 year old in [...] subacromial bursa Informed Consent Consent Obtained: Verbal Murdock Protocol A moment to CARE was completed. [...] THE CORACOCLAVICULAR LIGAMENTS MAY REPRESENT LOW-GRADE SPRAIN. Principal Gifts Officer: FERCHO Transcribe Date/Time: Jun 22 2021 4:06P Dictated by : NAYELY ZURITA MD This examination was interpreted and the report reviewed and electronically signed by: HENRY GILMORE MD on Jun 22 2021 5:18PM EST Results-Findings * * *Final Report* * * DATE OF EXAM: Jun 22 2021 3:21PM [facility] 0239 - MRI SHOULDER WO IVCON [...] ADDTL NECK SPINE FUSION 09/2020 c3-6 APPENDECTOMY 1996 BIOPSY BREAST OPEN INCISIONAL 1996 Bx of [...] UNI/BI 10/03/2005 Tubal ligation OOPHORECTOMY PARTIAL/TOTAL UNI/BI 2003 Oophorectomy Left PAST SURGICAL HISTORY OF 1982 [...] for this visit. Allergies: Pneumovax 23 [Pneumococcal 23-Derick Ps Vaccine], Sulfa (Sulfonamide Antibiotics), Actos [Pioglitazone Hcl], Arava [Leflunomide], Bactrim [Sulfamethoxazole-Trimethoprim], Codeine, Concerta [Methylphenidate Analogues], Embeda [Morphine-Naltrexone], Enbrel [Etanercept], Environmental Allergies [Other], Humira [Adalimumab], Ketek [Telithromycin], Lopressor [Metoprolol Tartrate], Morphine, Oxymorphone, Percocet [Oxycodone-Acetaminophen], Crcibiq-Iee-Ubw Reductase Inhibitors, Tylenol [Acetaminophen], and Ultram [Tramadol Hcl] ROS: General (negative for fatigue, malaise, weight loss/gain) HEENT (negative for headache, earache, recent vision changes, sinus pain, sore throat) Respiratory (no recent shortness of breath, hemoptysis) CV (negative for chest tightness, palpitations) Musculoskeletal (see HPI) Psych (no depression, anxiety) REFERRING PHYSICIAN: Ms. Chrissy Lay was referred to me for consultation by the following physician. This consultation note will be sent to the following physician by either mail or electronic medical record. Andry Dunne [address] [facility] [address] Karl Pichardo MD [address] [facility] [address] Andry Dunne MD documented in this encounterMer[facility] NoteHNO ID: [id number] Author: Rodolfo Bishop MD Service: ? Author Type: Physician Type: Progress Notes Filed: 12/03/2021 3:58 PM Note Text: SERVICE DATE: Patient would like to see someone today. PCP: Chrissy Lay REFERRING PROVIDER: Sam Jones [address] [facility] [address] Consult requested for an opinion regarding the evaluation and treatment of the above patient. My final impression and recommendations will be communicated back to the requesting physician by way of the shared medical record or letter via [place] mail. CHIEF COMPLAINT: Patient presents with: Right Shoulder - New, Pain, Stiffness, Swelling, Weakness, Numbness/Tingling SUBJECTIVE HISTORY OF PRESENT ILLNESS: Chrissy Lay is a 56 year old right hand [...] broken ankle (left) -- 2006 Following with [facility] Previous Version Essential hypertension, benign Phoebe Randle No Priority: A Panic disorder without agoraphobia Phoebe Randle No Priority: B Liver mass 04/16/2010 Karl Pichardo MD No Priority: C Overview Addendum 12/28/2010 9:00 AM by Karl Guadalupe (Retired) Kylee Right lobe; MRI 04/2009 -- recommended f/u 6-12 month --> Repeat 04/2010 stable, probable hemangioma Previous Version Mild intermittent asthma without complication 01/30/2006 Javan Dahl, V, DO No Priority: C Rotator cuff tear arthropathy of right shoulder 11/22/2021 Sam Jones MD No Rotator cuff syndrome of left shoulder 11/22/2021 Sam Jones MD No Plantar fasciitis, bilateral 07/17/2021 Ashwin Mccullough, PT No Strain of right shoulder 06/12/2021 Rosa Vyas, PT No History of fusion of cervical spine 04/25/2021 Mariely Kelley, SUMMER COUNSELOR.DESIGN VERIFICATION ENGINEER No GERD (gastroesophageal reflux disease) 10/25/2019 Mariely Kelley SUMMER COUNSELOR.DESIGN VERIFICATION ENGINEER No Nausea and vomiting 10/25/2019 Mariely Kelley SUMMER COUNSELOR.DESIGN VERIFICATION ENGINEER No Mixed hyperlipidemia 10/25/2019 Mariely Kelley SUMMER COUNSELOR.DESIGN VERIFICATION ENGINEER No History of failed repair of rotator cuff 10/25/2019 Mariely Kelley, SUMMER COUNSELOR.DESIGN VERIFICATION ENGINEER No Impingement syndrome of left shoulder 10/12/2019 [...] Ulloa RN No Hemorrh (more content not included)...[facility]05-02-2022 History of Present illness Narrative* Rodolfo Bishop MD - 12/03/2021 2:24 PM EDT Post-Procedure Diagnose(s): History of failed repair of rotator cuff; Rotator cuff tear arthropathyof right shoulder SERVICE DATE: Patient would like to see someone today. PCP: Chrissy Lay REFERRING PROVIDER: Sam Jones [id number] [address] [place] [phone] Consult requested for an opinion regarding the evaluation and treatment of the above patient. My final impression and recommendations will be communicated back to the requesting physician by way of the shared medical record or letter via [place] mail. CHIEF COMPLAINT: Patient presents with: Right Shoulder - New, Pain, Stiffness, Swelling, Weakness, Numbness/Tingling SUBJECTIVE HISTORY OF PRESENT ILLNESS: Chrissy Lay is a 56 year old right hand [...] a trauma -- broken ankle (left) -- 2007 Following with [facility] Previous Version Essential hypertension, benign Phoebe Razia No Priority: A Panic disorder without agoraphobia Phoebe Razia No Priority: B Liver mass 04/16/2010 Karl [...] fusion of cervical spine 04/25/2021 Mariely Kelley, SUMMER COUNSELOR.DESIGN VERIFICATION ENGINEER No GERD (gastroesophageal reflux disease) 10/25/2019 Mariely Kelley SUMMER COUNSELOR.DESIGN VERIFICATION ENGINEER No Nausea and vomiting 10/25/2019 Mariely Kelley SUMMER COUNSELOR.DESIGN VERIFICATION ENGINEER No Mixed hyperlipidemia 10/25/2019 Mariely Kelley, SUMMER COUNSELOR.DESIGN VERIFICATION ENGINEER No History of failed repair of rotator cuff 10/25/2019 Mariely Kelley SUMMER COUNSELOR.DESIGN VERIFICATION ENGINEER No Impingement syndrome of left shoulder 10/12/2019 [...] 2, controlled, without complications (HCC) 05/18/2013 Ame De Santiago Mujica No Peripheral neuropathy (Chronic) Brandon Osorio [...] of rectum and anus 08/02/2010 Rosa Ulloa, NERY No HEMORRHOIDS INTERNAL 09/09/2008 Tu Meade MD [...] 02/13/2006 Sony Munoz Closed bimalleolar fracture 11/25/2005 Chloe Childress Ma 01/30/2006 Sony Munoz Mitral valve disorders(424.0) Phoebe Randle 08/05/2006 Cristopher Casas MD No past surgical [...] Status Change Percocet [Oxycodone* Itching Severe itching Ajkmxtr-Vbp-Eiy Red* Other: See Comments Muscle aches, multiple [...] Pain Level: 6 Pain Location: Shoulder-Right Description: Aching;Dull;Sharp;Sore;Throbbing;Stiffness Duration Units: Years Frequency: Continuous Intervention/Comfort measure: Medication;Reposition;Relaxation;Cold;Exercise;Heat REVIEW OF SYMPTOMS: Constitutional: Any recent fevers? no Cardiovascular: Any chest pain? no Respiratory: Any shortness or breath? no Gastrointestinal: Any abdominal discomfort? no Integumentary: Any recent skin changes or rashes? no Neurologic: Any numbness or tingling? See Above Endocrine: Any diagnosis of diabetes? no Hematologic: Any recent bleeding episodes? no OBJECTIVE [facility] 04/25/2015 (Exact Date) PHYSICAL EXAMINATION: Well healed [...] mild labral pathology superiorly and anteriorly without franktear ASSESSMENT Encounter Diagnosis ICD-10-CM 1. History of failed repair of rotator cuff Z98.890 2. Rotator cuff tear arthropathy of right shoulder M75.101 M12.811 PLAN I discussed with Chrissy that the symptoms in her left shoulder is due to cuff tear arthropathy with7 failed prior surgeries in a patient with [...] them every 6 months. This is a [facility] case and we can submit for approval for her injection with a C9 form and when that is approved, I will be happy to see her back for an injection.She understands and agreeable with this plan. If any questions or concerns arise, she should not hesitate to call. Rodolfo Bishop M.D. M.M.Sc. Shoulder and Elbow Surgeon Orthopaedic Surgery Department [place], [place] [address] Tell: [phone] Appt:[phone] 12/03/2021 2:24 PM documented in [facility] NoteHNO ID: [id number] Author: Sam Jones MD Service: ? Author [...] subacromial bursa Informed Consent Consent Obtained: Verbal Murdock Protocol A moment to CARE was completed. [...] SIGNATURE: Sam Jones MD PATIENT NAME: Chrissy Lay DATE: November 22, 2021 TIME: 11:49 AM PAGER/CONTACT #:[facility]04-21-2022 NoteHNO ID: [id number] Author: Sam Jones MD Service: ? Author [...] patient's questions were answered by the attending physician.[facility]04-21-2022 NoteHNO ID: [id number] Author: Sam Jones MD Service: ? Author Type: Physician Type: Progress Notes Filed: 11/22/2021 11:51 AM Note Text: FOLLOW UP APPOINTMENT Chief Complaint:/Reason for Visit: Established patient; Scheduled follow up appointment for new or existing problem and/or post-surgical evaluation History of Present Illness: Chrissy Lay presents today for follow-up. She has an [...] noted. Motor: 5/5 IO, FPL, OP, hand die fitter, biceps, triceps, deltoid Sensory: SILT ulnar/median/radial distributions [...] 4. Follow-up: As needed All of Chrissy Lay questions were answered today. She expressed a clear understanding of our discussion and is in agreement with the outlined treatment plan Narciso Rosario MD [facility] NoteHNO ID: [id number] Author: Sam Jones MD Service: ? Author Type: Physician Type: Progress Notes Filed: 11/23/2021 9:29 AM Note Text: FOLLOW UP APPOINTMENT Chief Complaint:/Reason for Visit: Established patient; Scheduled follow up appointment for new or existing problem and/or post-surgical evaluation History of Present Illness: Chrissy Lay presents today for follow-up. She has an [...] noted. Motor: 5/5 IO, FPL, OP, hand die fitter, biceps, triceps, deltoid Sensory: SILT ulnar/median/radial distributions [...] pain 4. Follow-up: PRN All of Chrissy Lay questions were answered today. She expressed a clear understanding of our discussion and is in agreement with the outlined treatment plan Narciso Rosario MD [facility] History of Present illness Narrative* Sam Jones MD - 11/22/2021 11:49 AM EDT Associated Order(s): Large Joint Arthro/Inj: L subacromial bursa Post-Procedure Diagnose(s): Rotator cuff syndrome of left shoulder Assessment/Primary Diagnosis: (S43.432D) Tear of left glenoid labrum, subsequent encounter (primaryencounter diagnosis) (M75.102) Rotator cuff syndrome of left shoulder Fellow/resident history and physical examination reviewed and confirmed by the attending physician.The attending physician obtained additional history and performed focused physical examination. Allimaging and laboratory studies were reviewed by the attending physician with fellow/resident and the patient. Treatment care plan discussed with the fellow/resident and completely explained to the patient. The attending physician was present for and supervised any injections. All of the patient's questions were answered by the attending physician. Large Joint Arthro/Inj: L subacromial bursa Informed Consent Consent Obtained: Verbal Murdock Protocol A moment to CARE was completed. [...] SIGNATURE: Sam Jones MD PATIENT NAME: Chrissy Lay DATE: November 22, 2021 TIME: 11:49 AM PAGER/CONTACT #: * Sam Jones MD - 11/22/2021 11:27 AM EDT FOLLOW UP APPOINTMENT Chief Complaint:/Reason for Visit: Established patient; Scheduled follow up appointment for new or existing problem and/or post-surgical evaluation History of Present Illness: Chrissy Lay presents today for follow-up. She has an extensive history. She had 4 prior surgeries to her right shoulder before seeing us. In 2018 she underwent a arthroscopic rotator cuff repair revision. In 2019 she underwent arthroscopic debridement and removalof loose body and retained hardware of her right shoulder. In April 2021 she underwent another arthroscopic debridement of her right shoulder. Has been seen for complaints of left shoulder rotator cuff symptoms in the past. She was last seen with us in June 2021. She had recently got an MRIwhich showed an intact cuff and some degenerative [...] noted. Motor: 5/5 IO, FPL, OP, hand die fitter, biceps, triceps, deltoid Sensory: SILT ulnar/median/radial distributions [...] subacromial injection today. We will go ahead andperform this. She tolerated the procedure well without any complications. She can follow-up on withregard to that left shoulder on an as- needed basis. 4. Follow-up: As needed All of Chrissy Lay questions were answered today. She expressed a clear understanding of our discussion and is in agreement with the outlined treatment plan Narciso Rosario MD CC:Sam Jones documented in this encounter[facility] History of Present illness Narrative* Sam Jones MD - 11/22/2021 11:47 AM EDT Assessment/Primary Diagnosis: (M75.101, M12.811) Rotator cuff tear arthropathy, right (primary encounter diagnosis) (S46.011D) Traumatic complete tear of right rotator cuff, subsequent encounter Fellow/resident history and physical examination reviewed and confirmed by the attending physician.The attending physician obtained additional history and performed focused physical examination. Allimaging and laboratory studies were reviewed by the attending physician with fellow/resident and the patient. Treatment care plan discussed with the fellow/resident and completely explained to the patient. The attending physician was present for and supervised any injections. All of the patient's questions were answered by the attending physician. * Sam Jones MD - 11/22/2021 11:26 AM EDT FOLLOW UP APPOINTMENT Chief Complaint:/Reason for Visit: Established patient; Scheduled follow up appointment for new or existing problem and/or post-surgical evaluation History of Present Illness: Chrissy Lay presents today for follow-up. She has an extensive history. She had 4 prior surgeries to her right shoulder before seeing us. In 2018 she underwent a arthroscopic rotator cuff repair revision. In 2019 she underwent arthroscopic debridement and removalof loose body and retained hardware of her [...] noted. Motor: 5/5 IO, FPL, OP, hand die fitter, biceps, triceps, deltoid Sensory: SILT ulnar/median/radial distributions bilat (C1-T1 intact) ROM: intact in all joints. Pulses: 2+ radial, ulnar; hands warm bilat, <2sec CR Compartments: soft and compressible Surgical incisions well-healed without infection or wound complications. Forward flexion limited to90 degrees. External rotation to 10 degrees. Internal rotation to posterior SI. She has moderate tosevere weakness in external rotation and resisted abduction. Her internal rotation strength testingappears intact. She is neurovascularly intact distally. Assessment: [...] pain 4. Follow-up: PRN All of Chrissy Lay questions were answered today. She expressed a clear understanding of our discussion and is in agreement with the outlined treatment plan Narciso Rosario MD CC:Sam Jones documented in this encounterMer[facility]11-[facility] History of Present illness Narrative* Aurora Adorno RT(R) - 06/05/2021 10:30 AM EDT Radiology Service Progress Note PATIENT NAME: Chrissy Lay DATE OF SERVICE: June 05, 2021 TIME: 10:21 AM PATIENT IDENTITY VERIFICATION COMPLETED USING TWO (2) IDENTIFIERS: Name and Date of confirmedby patient verbally. FALL SCREENING: Has the patient had 2 falls in the last year or 1 fall with injury or currently using an Ambulatory Assistive Device (Walker, Cane, Wheelchair, Crutches, etc.)? No PATIENT GENDER DATA: Female. status: : No status: NO. PATIENT RELEVANT IMPLANT DATA REVIEWED: Yes RADIOLOGY DEPARTMENT: General X-ray: Exam(s) Completed: Upper Extremity X- Ray(s): Shoulder, AP / TRUE AP / AXILLARY left PERIPHERAL IV DATA: Not applicable SIGNED BY: RT Gabby(Antoine) June 05, 2021 10:21 AM documented in this encounterMer[facility] St. [facility]09-29-2021 NoteHNO ID: [id number] Author: Maria Luz Enriquez APRN.SYED Service: ? Author Type: Nurse Hub Cutter Type: Anesthesia Procedure Notes Filed: 05/02/2021 11:02 AM Note Text: ANESTHESIOLOGY PROCEDURE NOTE Airway General Information Procedure Start Time/Medication Administration: 05/02/2021 10:52 AM Patient location during procedure: OR Patient identity confirmed: arm band Staffing Performed by: SYED Indications and Patient Condition Preoxygenated: yes Indications for airway management: anesthesia Method: asleep Final Airway Details Final airway type: supraglottic airway Number of attempts at approach: 1 Final Supraglottic Airway: i-gel Size 4 Seal Adequate: yes SIGNATURE: Maria Luz Enriquez APRN.CRNA PATIENT NAME: Chrissy Lay DATE: May 02, 2021 TIME: 11:01 AM CSN: [id number] NoteHNO ID: [id number] Author: Richie Tao III, MD Service: Anesthesiology [...] SIGNATURE: Richie Tao MD PATIENT NAME: Chrissy Lay DATE: May 02, 2021 TIME: 11:00 AM CSN: [id number] NoteHNO ID: [id number] Author: Shana Rene RN Service: Nursing Author Type: Registered Nurse Type: Nursing Progress Note Filed: 05/02/2021 10:10 AM Note Text: CHEPE Presley obtained UA results. Okay to proceed with the surgery today.[facility]09-29-2021 NoteHNO ID: [id number] Author: Shana Rene RN Service: Nursing Author Type: Registered Nurse Type: Nursing Progress Note Filed: 05/02/2021 9:32 AM Note Text: Dr. Tao spoke with CHEPE Presley regarding pt's c/o.[facility] 04-15-2013 History of Past illness Narrative* Problem Noted [...] of this encounter (statuses as of 11/22/2021) [facility] History of Past illness Narrative* Problem [...] of this encounter (statuses as of 11/22/2021) [facility] History of Past illness Narrative* Problem [...] of this encounter (statuses as of 11/29/2021) [facility] History of Past illness Narrative* Problem [...] of this encounter (statuses as of 12/03/2021) [facility] History of Past illness Narrative* Problem [...] of this encounter (statuses as of 03/05/2022) [facility] History of Past illness Narrative* Problem [...] of this encounter (statuses as of 03/19/2022) [facility] Future Appointments Appointment Date:01/06/2023 04:30:00 PM Scheduled Provider:CHANTALE RAMSEY Location:[facility] Appointment Type:PC OV Appointment Date:02/05/2023 09:30:00 AM Scheduled Provider:CHANTALE RAMSEY Location:[facility] Appointment Type:PC OV [facility] Evaluation + Plan note Future Appointments Appointment Date:03/07/2023 10:00:00 AM Scheduled Provider:CHANTALE RAMSEY Location:[facility] Appointment Type:PC OV Future Scheduled Tests Laboratory* Basic Metabolic Panel 12/20/22 [facility] Evaluation + Plan note Future Appointments Appointment Date:03/07/2023 10:00:00 AM Scheduled Provider:CHANTALE RAMSEY Location:[facility] Appointment Type:PC OV Diagnostic Tests Pending * N. gonorrhoeae PCR 02/18/23 * Chlamydia trachomatis PCR 02/18/23 Future Scheduled Tests Laboratory* Rapid HIV (AO) 02/18/23 * Affirm Pathogens DNA Direct Probe 02/18/23 * Basic Metabolic Panel 12/20/22 * Basic Metabolic Panel 01/17/23 * Complete Blood Count 01/17/23 [facility] Evaluation + Plan note Future Appointments Appointment Date:09/26/2023 03:00:00 PM Scheduled Provider:CHANTALE RAMSEY Location:[facility] Appointment Type:PC OV Follow Up Future Scheduled Tests Laboratory* Rapid HIV (AO) 02/18/23 [facility] Evaluation + Plan note Future Appointments Appointment Date:12/26/2023 02:00:00 PM Scheduled Provider:CHANTALE RAMSEY APRN-SANDY Location:[facility] Appointment Type:PC OV Future Scheduled Tests Laboratory* Rapid HIV (AO) 02/18/23 * A1C Hemoglobin 09/25/23 * Complete Blood Count 09/25/23 * Lipid Profile 09/25/23 * Complete Metabolic Panel 09/25/23 [facility] Evaluation + Plan note Future Appointments Appointment Date:03/26/2024 03:30:00 PM Scheduled Provider:CHANTALE RAMSEY Location:[facility] Appointment Type: OV Future Scheduled Tests Laboratory* Rapid HIV (AO) 02/18/23 * A1C Hemoglobin 09/25/23 * Complete Blood Count 09/25/23 * Lipid Profile 09/25/23 * Complete Metabolic Panel 09/25/23 [facility] Evaluation + Plan note Future Appointments Appointment Date:03/07/2025 11:00:00 AM Scheduled Provider:CHANTALE RAMSEY APRN-SANDY Location:[facility] Appointment Type: OV Future Scheduled Tests Laboratory* Basic Metabolic Panel 06/09/24 * Thyroid Stimulating Hormone 06/09/24 * Thyroid Stimulating Hormone 11/24/24 * Free T4 06/09/24 * Free T4 11/24/24 * Complete Blood Count 06/09/24 * Complete Blood Count 11/24/24 * Lipid Profile 11/24/24 * Vitamin D Level 11/24/24 * Complete Metabolic Panel 11/24/[address] [facility] Evaluation note* Diagnosis Rotator cuff tear arthropathy, right- Primary Traumatic complete tear of right rotator cuff, subsequent encounter documented in this encounter [facility] Diagnosis Tear of left glenoid labrum, subsequent encounter- Primary Rotator cuff syndrome of left shoulder Disorders of bursae and tendons in shoulder region, unspecified documented in this encounter [facility] noteNo assessment information availableWCleveland Clinic Work Phone: Evaluation note* Diagnosis Pain- Primary Generalized pain [facility] History of failed repair of rotator cuff- Primary Other postprocedural status Rotator cuff tear arthropathy of right shoulder Traumatic arthropathy, shoulder region documented in this encounter [facility] Diagnosis Rotator cuff tear arthropathy of right shoulder- Primary Traumatic arthropathy, shoulder region documented in this encounter [facility]* Diagnosis Onset Date Resolution Status Episode of syncope acute Urinary tract infection with hematuria acute [facility] Work Phone: Evaluation note* Diagnosis Onset Date Resolution Status Episode of syncope acute Urinary tract infection with hematuria acute Strain of lumbar region acut e [facility] Work Phone: Evaluation note* Diagnosis Impingement syndrome of left shoulder- Primary Other affections of shoulder region, not elsewhere classified Chronic left shoulder pain Pain in joint, shoulder region documented in this encounter [facility]* Diagnosis Onset Date Resolution Status Episode of syncope acute Urinary tract infection with hematuria acute Strain of lumbar region acut e Depressed chronic Diabetes mellitus type II, controlled chronic Hyperlipidemia chronic RSD (reflex sympathetic dystrophy) chronic Encounter to establish care noneactive [facility] Work Phone: Evaluation note* Diagnosis Onset Date Resolution Status Episode of syncope acute Urinary tract infection with hematuria acute Strain of lumbar region acut e Depressed chronic Diabetes mellitus type II, controlled chronic Hyperlipidemia chronic RSD (reflex sympathetic dystrophy) chronic Encounter to establish care noneactive Acute otitis externa of left ear acute Acute sinusitis, unspecified acute Anxiety acute Rash acute Depressed chronic Diabetes mellitus type II, controlled chronic Essential hypertension chron ic Hyperlipidemia chronic RSD (reflex sympathetic dystrophy) chronic [facility] Work Phone: Evaluation note* Diagnosis Pre-operative examination- Primary Preoperative examination, unspecified Traumatic complete tear of right rotator cuff, subsequent encounter Other polyneuropathy Essential hypertension, benign Controlled type 2 diabetes mellitus without complication, without long-term current use of insulin (HCC) Mild intermittent asthma with acute exacerbation Unspecified asthma, with exacerbation Panic disorder without agoraphobia Complex regional pain syndrome type 1 of lower extremity, unspecified laterality Liver mass Unspecified disorder of liver Pre-operative examination- Primary Preoperative examination, unspecified S/P rotator cuff repair Other postprocedural status Essential hypertension, benign Mixed hyperlipidemia Controlled type 2 diabetes mellitus without complication, without long-term current use of insulin (HCC) Mild intermittent asthma without complication Unspecified asthma Gastroesophageal reflux disease, esophagitis presence not specified Nausea and vomiting, intractability of vomiting not specified, unspecified vomiting type Other polyneuropathy Insomnia, unspecified type Panic disorder without agoraphobia Complex regional pain syndrome type 1 of lower extremity, unspecified laterality Liver mass Unspecified disorder of liver Impingement syndrome of left shoulder Other affections of shoulder region, not elsewhere classified Pre-operative examination- Primary Preoperative examination, unspecified Traumatic complete tear of right rotator cuff, subsequent encounter History of fusion of cervical spine Arthrodesis status Controlled type 2 diabetes mellitus without complication, without long-term current use of insulin (HCC) Essential hypertension, benign Gastroesophageal reflux disease, unspecified whether esophagitis present Insomnia, unspecified type Mild intermittent asthma without complication Unspecified asthma Mixed hyperlipidemia Panic disorder without agoraphobia Other polyneuropathy S/P rotator cuff repair Other postprocedural status Liver mass Unspecified disorder of liver Pain Generalized pain documented in this encounter [facility] course Narrative No data available for this section [facility] Dis[facility] instructionsWC[facility] Clinic Work Phone: Hospital Discharge instructionsWC[facility] Clinic Work Phone: Hospital Discharge instructions Additional Instructions Take your diabetic medications at home. Continue oral fluids. Take medications as prescribed. Follow-up with your doctor. Return if any worsening symptoms.[facility] Work Phone: Hospital Discharge instructions No data available for this section [facility] Progress note No data available for this section [facility] Reason for referral (narrative)* Diagnostic Procedure Only (Routine) - Pending Review Specialty Diagnoses / Procedures Referred By Saadia smith Referred To Contact XR IMAGING Diagnoses Pain Procedures XR SHOULDER GENERAL 3V OR MORE AP/TRUE AP/OTHER RIGHT RADEX SHOULDER COMPLETE MINIMUM 2 VIEWS Rodolfo Bishop MD [address] [place] [address] Xr Imaging Referral ID Status Reason Start Date Expiration Date Visits Requested Visits Authorized [id number] Pending Review Auto-Generat ed Referral 11/29/2021 12/29/2022 1 1 [facility] for referral (narrative)* Diagnostic Procedure Only (Routine) - Pending Review Specialty Diagnoses / Procedures Referred By Contac t Referred To Contact XR IMAGING Diagnoses Rotator cuff tear arthropathy of right shoulder Procedures XR SHOULDER GENERAL 3V OR MORE AP/TRUE AP/OTHER RIGHT RADEX SHOULDER COMPLETE MINIMUM 2 VIEWS Livia Zurita PA-C [address] [place] [id number] Xr Imaging Referral ID Status Reason Start Date Expiration Date Visits Requested Visits Authorized [id number] Pending Review Auto-Generat ed Referral 03/05/2022 04/04/2023 1 1 [facility] for referral (narrative)* Diagnostic Procedure Only (Routine) - Closed Specialty Diagnoses / Procedures Referred By Contac t Referred To Contact XR IMAGING Diagnoses Pain Procedures XR SHOULDER GENERAL 3V OR MORE AP/TRUE AP/OTHER LT X-RAY SHOULDER COMPLET MIN 2 VIEWS Laverne Duong PA-C [address] [place] [address] Xr Imaging [place] [id number] Referral ID Status Reason Start Date Expiration Date V isits Requested Visits Authorized [id number] Closed Auto-Generate d Referral 05/11/2021 06/10/2022 1 1 [facility] Summary Purpose Family History No Family History Records Found Relationship Condition Age at Onset Recorded Date/T daphne Not Specified Malignant neoplasm Unknown father Diabetes mellitus Unknown Hypertension Unknown mother Diabetes mellitus Unknown Advance Directives No Advanced Directives Records FoundDocuments on File Type Date Recorded Patient Service Desk Manager Expl anation Advance Directive(s) Advance Directive(s) 04/12/2021 10:34 AM Advance Directive(s) 05/02/2020 3:18 PM Advance Directive(s) 10/21/2019 10:23 AM Advance Directive(s) 04/20/2019 9:49 AM Advance Directive Response Recorded Date/ Time Advance Directives No June 08, 2015 3:44pm Living Will No November 24, 2021 10:12am Power of Record Maker No November 24 10:12am Documents on File Type Date Recorded Patient Service Desk Manager Expl anation Advance Directive(s) Advance Directive(s) 04/12/2021 10:34 AM Advance Directive(s) 05/02/2020 3:18 PM Advance Directive(s) 10/21/2019 10:23 AM Advance Directive(s) 04/20/2019 9:49 AM Advance Directive Response Recorded Date/ Time Advance Directives No June 08, 2015 3:44pm Living Will No March 11, 2022 4:18pm Power of Record Maker No March 11 4:18pm Advance Directive Response Recorded Date/ Time Advance Directives No March 13, 2022 10:55am Living Will No March 13 10:55am Power of Record Maker No March 13 10:55am Advance Directive Response Recorded Date/ Time Advance Directives No March 13, 2022 10:55am Living Will No April 04 2:54pm Power of Record Maker No April 04, 2022 2:54pm Advance Directive Response Recorded Date/ Time Advance Directives No March 13, 2022 9:55am Living Will No April 04 022 1:54pm Power of Record Maker No April 04, 2022 1:54pm Medications Administered Section Inactive Administered Medications - up to 3 most recent administrations Medication Order MAR Action Action Date Dose Rate Site lidocaine (PF) 10 mg/mL (1 %) 4 mL injection (XYLOCAINE) 4 mL, Injection - FOR ORTHO USE ONLY, ONE TIME INJECTION, 1 dose, Starting on Fri11/22/21 at 1149, Until Fri11/22/21 at 1149 Given 11/22/2021 11:49 AM EDT [...] Given 03/04/2022 4:23 PM EDT 4 mL Chief Complaint and Reason for Visit Chief Complaint NEURO ALLERGIC REACTION UTI SYMPTOMS fall Chief Complaint fall CONCERN FOR UTI dysuria, fever, back pain, h/a, n/v Reason for Visit Episode of syncope Urinary tract infection with hematuria Chief Complaint fall CONCERN FOR UTI dysuria, fever, back pain, h/a, n/v Urinary tract infection Reason for Visit Episode of syncope Urinary tract infection with hematuria Strain of lumbar region Chief Complaint CONCERN FOR UTI dysuria, fever, back pain, h/a, n/v Urinary tract infection 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 HAS PPW CONFUSION SORE THROAT/EAR PAIN 2 M FU E ORDER Reason for Visit Episode of syncope Urinary tract infection with hematuria Strain of lumbar region Depressed Diabetes mellitus type II, controlled Hyperlipidemia RSD (reflex sympathetic dystrophy) Encounter to establish care Acute otitis externa of left ear Acute sinusitis, unspecified Anxiety Rash Depressed Diabetes mellitus type II, controlled Essential hypertension Hyperlipidemia RSD (reflex sympathetic dystrophy) Additional Source Comments INFORMATION SOURCE (unrecogn ized section and content) DATE CREATED AUTHOR 01/28/2018 [facility] DATE CREATED AUTHOR AUTHOR'S ORGANIZ ATION 05/03/2021 [facility] DATE CREATED AUTHOR AUTHOR'S ORGANIZ ATION 11/07/2022 [facility] DATE CREATED AUTHOR AUTHOR'S ORGANIZ ATION 12/10/2022 [facility] DATE CREATED AUTHOR AUTHOR'S ORGANIZ ATION 03/15/2024 [facility] DATE CREATED AUTHOR AUTHOR'S ORGANIZ ATION 10/31/2024 [facility] DATE CREATED AUTHOR AUTHOR'S ORGANJEWEL ATION 01/09/2025 [facility] DATE CREATED AUTHOR AUTHOR'S ORGANIZ ATION 01/27/2025 [facility] Source Comments (unrecognize d section and content) In the event this informatio n is protected by the Federal Confidentiality of Alcohol and Drug Abuse Patient Records regulations: The Federal rules restrict any use of the information to criminally investigate or prosecute any alcohol or drug abuse patient.[facility] the event this information is protected by the Federal Confidentiality of Alcohol and Drug Abuse Patient Records regulations: The Federal rules restrict any use of the information to criminally investigate or prosecute any alcohol or drug abuse patient.[facility] HospitalIn the event this information is protected by the Federal Confidentiality of Alcohol and Drug Abuse Patient Records regulations: The Federal rules restrict any use of the information to criminally investigate or prosecute any alcohol or drug abuse patient.[facility] HospitalIn the event this information is protected by the Federal Confidentiality of Alcohol and Drug Abuse Patient Records regulations: The Federal rules restrict any use of the information to criminally investigate or prosecute any alcohol or drug abuse patient.[facility] HospitalIn the event this information is protected by the Federal Confidentiality of Alcohol and Drug Abuse Patient Records regulations: The Federal rules restrict any use of the information to criminally investigate or prosecute any alcohol or drug abuse patient.[facility] HospitalIn the event this information is protected by the Federal Confidentiality of Alcohol and Drug Abuse Patient Records regulations: The Federal rules restrict any use of the information to criminally investigate or prosecute any alcohol or drug abuse patient.[facility] HospitalIn the event this information is protected by the Federal Confidentiality of Alcohol and Drug Abuse Patient Records regulations: The Federal rules restrict any use of the information to criminally investigate or prosecute any alcohol or drug abuse patient.[facility] Reason for Visit (unrecogniz ed section and content) Reason Comments Follow Up Bwc (Worker's Comp) Specialty Diagnoses / Procedures Referred By Saadia t Referred To Contact [facility] Diagnoses Follow up for: ARTHROSCOPY SHOULDER W/ DEBRIDEMENT LIMITED 1 OR 2 DISCRETE STRUCTURES [61371] - Shoulder - Right Procedures follow up for RIGHT shoulder - surgery date was 05/02/21 [place] [address] [place] [address] [facility] [address] [place] [address] Referral ID Status Reason Start Date Expiration Date Visits Re quested Visits Authorized [id number] Closed 06/26/2021 09/24/2021 1 1 Reason Comments Injections Reason Comments New Pain Stiffness Swelling Weakness Numbness/Tingling Specialty Diagnoses / Procedures Referred By Saadia t Referred To Contact Orthopedics / ORTHOPAEDIC SURGERY Diagnoses SHOULDER REPLACEMENT CONSULT,RT Procedures REFERRAL TO [facility] [place] [address] [place] [address] Rodolfo Bishop MD [address] [place] [address] Referral ID Status Reason Start Date Expiration Date Visits Requested Visits Authorized [id number] Pending Review Clearance Not Met -Financial Clearance Bypassed 12/03/2021 02/01/2022 1 1 Reason Comments xray and MRI 06-[address] Irwin ritter for glenoid tear left labrum and Rotator cuff syndrome left shoulder 11-22-21 New Pain Reason Comments Radio Gen RMP Specialty Diagnoses / Procedures Referred By Saadia smith Referred To Contact XR IMAGING Diagnoses Pain Procedures XR SHOULDER GENERAL 3V OR MORE AP/TRUE AP/OTHER LT X-RAY SHOULDER COMPLET MIN 2 VIEWS Laverne Duong, PAChuckC [address] [place] [address] [facility] [place] [id number] Referral ID Status Reason Start Date Expiration Date V isits Requested Visits Authorized [id number] Closed Auto-Generate d Referral 05/11/2021 06/10/2022 1 1 Care Teams (unrecognized sec tion and content) Collection Systems Worker Relationship Specialty Start Date End Date Karl Pichardo MD [address] [place], [place] [id number] PCP - General Family Practice 01/08/18 Collection Systems Worker Relationship Specialty Start Date End Date Karl Pichardo MD [address] [place], [place] [id number] PCP - General Family Practice 01/08/18 Collection Systems Worker Relationship Specialty Start Date End Date Karl Pichardo MD [address] [place], [place] [id number] PCP - General Family Practice 01/08/18 Collection Systems Worker Relationship Specialty Start Date End Date Karl Pichardo MD [address] [place], [place] [id number] PCP - General Family Practice 01/08/18 Collection Systems Worker Relationship Specialty Start Date End Date Karl Pichardo MD [address] [place], [place] [id number] PCP - General Family Practice 01/08/18 Collection Systems Worker Relationship Specialty Start Date End Date Karl Pichardo MD [address] [place], [place] [id number] PCP - General Family Medicine 01/08/18 05/13/22 Goals (unrecognized section and content) Goals may be documented in a n alternate sectionGoals may be documented in an alternate sectionGoals may be documented in an alternate sectionGoals may be documented in an alternate sectionGoals may be documented in an alternate section No data available for this section [...] section No data available for this section FOR RECORDS PERTAINING TO PATIENTS WHO ARE [...] BE BASED ON THE PRIMARY CLINICAL RECORDS. [facility]. provides no warranty or guarantee of the accuracy or completeness of information in this document.
== END | disposition home or self-care (01) ==
LOC: CVS 12:40
PROVIDERS: PCP Registered Nurse; Referring Provider Nurse Practitioner Gerontology; Visit Provider Nurse Practitioner Gerontology
DX: R06.02 Shortness of breath (principal)
CPT/HCPCS: 93306; Q9957; A4216; C8929

== ENCOUNTER 2025-04-09 11:06 | Emergency (ER) | payer MEDICAID, SELFPAY ==
[2025-04-09 11:08] VITALS: BP 180/113; PULSE 95; RESP 20; TEMP 36.4; O2SAT 98; BMI 32.4
--- NOTE | 2025-04-09 11:36 | CT_ITS ---
PROCEDURE: CT CHEST, ABD, PEL W/CONTRAST 04/09/2025 REASON FOR EXAM: FALL, ABDOMINAL PAIN, LUQ TECHNIQUE: Chest, abdomen and pelvis CT with intravenous contrast. Coronal and Sagittal reconstruction series were provided. One or more dose reduction techniques were used (e.g., Automated exposure control, adjustment of the mA and/or kV according to patient size, use of iterative reconstruction technique. PATIENT PREPARATION: Per protocol ORAL CONTRAST TYPE: None. AMOUNT: mL CONTRAST: Isovue 370 VOLUME: 100mL RADIATION DOSE SUMMARY: CTDlvol: 24.48 mGy DLP: 1824.57 mGycm COMPARISON: 11/07/2024 FINDINGS: CT CHEST: Hardware: Partially visualized ACDF lower cervical spine. Lymph nodes: No enlarged mediastinal, hilar, or axillary lymph nodes. Heart and Vasculature: No cardiomegaly. No pericardial effusion. No filling defect in the pulmonary arteries to suggest embolus. Pulmonary trunk and ascending aorta are within normal limits. Lungs and Airways: Mild scarring/atelectasis in the left lung lingula. No pulmonary mass or consolidation. Pleura: No pleural mass or effusion. Bones: No destructive osseous lesion. CT ABDOMEN/PELVIS: Liver: Mild diffuse fatty infiltration. No intrahepatic biliary ductal dilatation. Portal vein is patent. Gallbladder: Cholecystectomy changes. Spleen: Normal Pancreas: Unremarkable Adrenals: No adrenal mass. Kidneys: Unremarkable. No hydronephrosis or hydroureter. Bladder: Within normal limits Reproductive Organs: Hysterectomy Bowel: Nonobstructive Appendix: Appendectomy. Lymph nodes: No enlarged abdominal, retroperitoneal, or pelvic lymph nodes Vasculature: Within normal limits Peritoneum / Retroperitoneum: No ascites Bones: No destructive osseous lesion CT/CT Chest, Abd, Pel w/Contrast IMPRESSION: 1. There is no acute process in the chest, abdomen or pelvis Reading [id number]
--- NOTE | 2025-04-09 11:37 | EKG12_ITS ---
Test Reason : FALL Blood Pressure : */* mmHG Vent. Rate : 90 BPM Atrial Rate : 90 BPM P-R Int : 146 ms QRS Dur : 76 ms QT Int : 364 ms P-R-T Axes : 21 20 23 degrees QTcB Int : 445 ms Normal sinus rhythm Normal ECG Confirmed by Nacriso Montanez ([id number]), news editor [employer] ([id number]) on 04/12/2025 5:50:20 AM Referred By: Confirmed By: Narciso Montanez
--- NOTE | 2025-04-09 11:41 | EDS_ITS ---
HPI History of Present Illness Chief Complaint: Abd Pain Narrative Narrative: Patient is a 59-year-old female presenting to the emergency department for left rib pain. Patient reports that she has gastroparesis and was at work on Friday and began vomiting pretty aggressively she states. States that she developed the left-sided rib pain after this and thinks that she cracked her rib. She followed up with her primary care doctor who obtained x-rays of her chest which were reportedly negative on . She has been taking Tylenol and Motrin for pain at home. States the pain is not controlled. She reports that night she stubbed her left toe causing her to fall on her left knee and into a metal stool on her left sided chest. States that she fell backwards striking the back of her head from knee level. She denies loss of consciousness, use of oral anticoagulation, neck pain or back pain. Denies hip pain. [facility] Medical History Osteoarthritis of left knee Left knee pain Osteoarthritis of right knee Contusion of right chest wall Contusion of right shoulder Contusion of forehead History of diabetes mellitus PTSD (post-traumatic stress disorder) Wears glasses Marijuana use Diabetes Arthritis Easy bruising High cholesterol Restless legs Injury of head and neck Difficulty swallowing Gastric reflux Non-smoker History of stress test History of echocardiogram Cardiology follow-up encounter SACHA (generalized anxiety disorder) Strain of right hip History of colon polyps Acute otitis externa of left ear Acute sinusitis, unspecified TIA (transient ischemic attack) Episode of syncope Urinary tract infection with hematuria Contusion of right ankle Contusion of right foot GI bleed Positive PPD, treated Pneumonia Bronchitis Statin intolerance Dyspnea on exertion Chest pain Near syncope Orthostatic hypotension Hyperlipidemia GERD (gastroesophageal reflux disease) RSD (reflex sympathetic dystrophy) Essential hypertension Diabetes mellitus type II, controlled Strain of unspecified muscle, fascia and tendon at shoulder and upper arm level, right arm, initial encounter Asthma Shoulder pain Hemorrhoids Nausea & vomiting Depressed Asthma Medical History no medical history Home Medications ?Medication ?Instructions ?Recorded ?Last Taken ?Type ezetimibe 10 mg tablet 10 mg PO DAILY CHOLESTEROL # 90 tabs 04/19/21 Unknown Rx diphenhydramine HCl 25 mg capsule 25 mg PO DAILY PRN a llergy symptoms 03/28/22 Unknown History duloxetine 60 mg capsule,delayed 120 mg (2 x 60 mg) PO DAILY 10/15/22 Unknown Rx release ANXIETY 30 days #60 caps albuterol sulfate 90 mcg/actuation 2 puff inhalation Q 4H PRN PRN 01/04/23 Unknown Rx aerosol inhaler (Ventolin HFA) Wheezing or shortness o f breath #1 inh pen needle, diabetic 32 gauge x #100 ea 03/05/23 Unkno wn Rx 5/32 (BD Ultra-Fine Thais Pen Needle) alcohol swabs 1 pad topical 4X/DAY #200 ea 04/28/23 Unknown Rx ondansetron 4 mg disintegrating 4 mg PO Q6H PRN nausea and 04/28/23 Unknown Rx tablet vomiting #10 tabs allopurinol 100 mg tablet 100 mg PO DAILY 06/18/23 Unk nown History pen needle, diabetic 32 gauge x #100 ea 10/23/23 Unkno wn Rx 532 (BD Ultra-Fine Thais Pen Needle) lorazepam 1 mg tablet 0.5 mg (1/2 x 1 mg) PO DAILY PRN 12/03/23 Unknown Rx Anxiety #30 tabs ibuprofen 800 mg tablet 800 mg PO DAILY 12/24/23 Unk nown History insulin aspart U-100 100 unit/mL 18 sliding scale dose subcut TID 12/24/23 Unknown History (3 mL) subcutaneous pen (Novolog FlexPen U-100 Insulin aspart) hydroxyzine HCl 25 mg tablet 25 mg PO DAILY PRN anxiet y 02/29/24 Unknown History colchicine 0.6 mg capsule 0.6 mg PO QDAY PRN Gout 04/04 03/27 Unknown History furosemide 20 mg tablet 20 mg PO QDAY 04/21/24 Unkno wn History losartan 100 mg tablet 100 mg PO QDAY 04/21/24 Unkn own History omega-3 acid ethyl esters 1 gram 1 cap PO BID #180 cap s 04/26/24 Unknown Rx capsule flash glucose sensor (FreeStyle #2 ea 06/21/24 Unknown Rx Tanmay 2 Sensor kit) omeprazole 20 mg capsule,delayed 40 mg PO DAILY GERD 1 09/19/23 Unknown History release insulin glargine 100 unit/mL (3 30 unit (0.3 mL) subcu t QAM #27 mL 08/02/24 Unknown Rx mL) subcutaneous pen (Basaglar KwikPen U-100 Insulin) dicyclomine 10 mg capsule 10 mg PO TID PRN abdominal p ain 7 11/07/24 Unknown Rx days #21 caps zinc acetate 25 mg (zinc) capsule 25 mg PO DAILY 11/07 Unknown History (Galzin) mecobalamin (vitamin B12) 500 mcg mcg PO 01/07/25 Unkn own History chewable tablet dulaglutide 4.5 mg/0.5 mL 4.5 mg (0.5 mL) subcut QWEEK #2 mL 01/17/25 Unknown Rx subcutaneous pen injector (Trulicity) fluconazole 100 mg tablet 100 mg PO DAILY vaginal yeas t 01/17/25 Unknown Rx (Diflucan) infection #2 tabs insulin glargine 100 unit/mL (3 30 unit (0.3 mL) subcu t QDAY #27 mL 01/20/25 Unknown Rx mL) subcutaneous pen (Lantus Solostar U-100 Insulin) cholecalciferol (vitamin D3) 50 50 mcg PO QDAY #90 cap s 03/28/25 Unknown Rx mcg (2,000 unit) capsule nitrofurantoin 100 mg PO Q12H 5 days #10 ca ps 04/09/25 Unknown Rx monohydrate/macrocrystals 100 mg capsule (Macrobid) Allergy/AdvReac Type Severity Reaction Status Date / Time clindamycin Allergy Mild Rash Verified 04/09/25 11:14 adalimumab (From Humira) Allergy Unknown Verified 04/09/25 11:14 amoxicillin trihydrate (From Allergy Unknown Verified 04/09/25 11:14 Augmentin) codeine Allergy Itching Verified 04/09/25 11:14 etanercept (From Enbrel) Allergy Unknown Verified 04/09/25 11:14 leflunomide (From Arava) Allergy Other Verified 04/09/25 11:14 metoprolol tartrate (From Allergy Unknown Verified 04/09/25 11:14 Lopressor) morphine sulfate (From Allergy Unknown Verified 04/09/25 11:14 Embeda) naltrexone HCl (From Embeda) Allergy Unknown Verified 04/09/25 11:14 oxymorphone (Oxymorphone) Allergy Unknown Verified 04/09/25 11:14 pioglitazone HCl (From Actos) Allergy Other Verified 04/09/25 11:14 pneumococcal 23-valent Allergy Unknown Verified 04/09/25 11:14 polysacchari (From Pneumovax 23) potassium clavulanate (From Allergy Unknown Verified 04/09/25 11:14 Augmentin) [id number] Reductase Allergy Unknown Verified 04/09/25 11:14 Inhibitor (Twnftci-Lng-Pxf Reductase Inhibitor) Sulfa (Sulfonamide Allergy Anaphylaxis Verified 04/09/25 11:14 Antibiotics) sulfamethoxazole (From Allergy Anaphylaxis Verified 04/09/25 11:14 Bactrim) telithromycin (From Ketek) Allergy Unknown Verified 04/09/25 11:14 tramadol HCl (From Ultram) Allergy Unknown Verified 04/09/25 11:14 trimethoprim (From Bactrim) Allergy Anaphylaxis Verified 04/09/25 11:14 Family History Father Diabetes Hypertension Mother Diabetes Hypertension Colon polyp Other Cancer Family History no significant family his Surgical History History of arthroscopy of right knee History of hysterectomy History of appendectomy History of colonoscopy Hx of shoulder surgery Surgical History no surgical history Social History household members: none Smoking Status: Never smoker alcohol intake: current alcohol intake frequency: 0-2 drinks per day Alcohol type: hard liquor substance use type: other details: Gummies ROS ROS ED ROS Narrative see HPI EXAM Physical Exam Narrative Exam Narrative: Vital signs: Reviewed General: Alert and orientedx3. Acute distress due to pain. Tearful. HEENT: Head is normocephalic and atraumatic. No signs of trauma to head. No abrasions, lacerations, cephalohematoma. Sinuses nontender, pupils equal round and reactive. Nares are patent. Oropharynx and throat exams normal. Neck: Supple without lymphadenopathy nontender. No midline cervical spinal tenderness to palpation. No step offs or deformities. Cardiovascular: Regular rate and rhythm, no murmurs. No rubs or gallops. Normal S1 and S2 Respiratory: Clear to auscultation bilaterally. No wheezes, rales, rhonchi Chest: Left lateral chest wall underneath the left breast is tender to palpation. There is no ecchymosis, erythema, crepitus. Abdominal: Soft and tender to palpation in the left upper quadrant, epigastric regions. Otherwise abdomen is atraumatic and nontender to palpation. Normal bowel sounds. No guarding or rebound. Nonsurgical abdomen Extremities: Left knee is tender to palpation at the distal aspect. There is no obvious deformity. Patella tendon and quadriceps tendon intact based on exam with flexion and extension. There is no erythema. No bruising. Normal range of motion. Normal sensation. Skin: No rash or redness. Neurological: Cranial nerves II through XII are grossly intact. Normal strength and sensation. Normal cerebellar function The rest of the physical exam is unremarkable Const Vital Signs: 04/09/25 11:08 04/09/25 13:24 04/09/25 15:00 Temperature 97.6 F L 97.6 F L Temperature Source Oral Oral Pulse Rate 95 84 76 Respiratory Rate 20 H 18 16 Blood Pressure 180/113 H 172/88 H 168/93 H Blood Pressure Mean 135 116 118 Pulse Ox 98 98 98 Oxygen Delivery Method Room Air Room Air Room Air 04/09/25 16:10 Temperature 98.1 F Temperature Source Pulse Rate 77 Respiratory Rate 16 Blood Pressure 173/95 H Blood Pressure Mean 121 Pulse Ox 99 Oxygen Delivery Method MDM MDM MDM Narrative Medical decision making narrative: Patient is a 59-year-old female presenting to the emergency department for chest wall pain, abdominal pain and knee pain after a fall. Patient was seen and examined. Vitals are stable. Patient appears uncomfortable in bed due to pain. Tearful on exam. On inital evaluation is tachypneic and is breathing and short shallow breaths and hyperventilation pattern. Given the patient's fall and endorsing significant pain, CT with contrast of the chest abdomen pelvis ordered. X-ray of the left knee was also obtained. Patient given morphine for analgesia. Given Zofran for antiemetic. CBC with no leukocytosis and normal hemoglobin. CMP with mildly elevated alk phos of 125 and glucose of 296. Very mild anion gap of 16, bicarb of 16.5. I think that the bicarb is due to the patient's hyperventilation on arrival. repeat [id number] glucose was in the 90s. Given this glucose I do not think this is evidence of DKA. She has no other symptoms that would be consistent with DKA. Negative ketones in urine as well. Urinalysis does show evidence of infection, she states that she does know if she has a current urinary tract infection. Will send antibiotics to her pharmacy. Lipase within normal limits. CT imaging of the chest abdomen pelvis with no acute process. X-ray of the knee shows a small curvilinear lucency with bony fragment over the medial tibial plateau that could be a nondisplaced fracture. Given the patient's tenderness on exam a CT of the knee was ordered given it would global climate change researcher if there is a tibial plateau fracture. CT with no acute abnormalities. Patient able to tolerate p.o. Pain is much better controlled after the initial analgesia. Recommended Tylenol and Motrin at home for pain control. Recommended PCP follow-up for soon as possible. Able to ambulate without difficulty. Patient discharged from the Emergency Department. I do not feel that the patient's evaluation reveals any acute reason for admission at this time. I instructed them to either follow-up with their primary care physician or promptly return to the Emergency Department for reevaluation should symptoms worsen or new symptoms develop. I explained what symptoms would indicate the need to return to the emergency department. Shared decision making was used. The patient voiced understanding of the treatment plan and is agreeable with it. Clinical impression Fall Rib pain UTI History & Record Review Discussion w/independent historian: Patient Lab Data Attestation: I reviewed the patient's lab results. Labs: Laboratory Results - last 24 hr 04/09/25 04/09/25 11:50 13:20 WBC 10.4 RBC 4.84 Hgb 14.9 Hct 44.0 MCV 90.9 MCH 30.8 MCHC 33.9 RDW Std Deviation 41.9 RDW Coeff of [place] 12.5 Plt Count 328 MPV 8.9 Immature Gran % (Auto) 0.400 Neut % (Auto) 69.5 Lymph % (Auto) 20.6 [place] % (Auto) 7.4 Eos % (Auto) 1.5 Baso % (Auto) 0.6 Absolute Neuts (auto) 7.3 Absolute Lymphs (auto) 2.15 Nucleated RBC % 0 Sodium 140 Potassium 3.6 Chloride 107 Carbon Dioxide 16.5 L Anion Gap 16 H BUN 8 Creatinine 0.62 L Estim Creat Clear Calc 120.26 Est GFR (MDRD) Non-Af 103 BUN/Creatinine Ratio 13.2 Glucose 296 H Calcium 9.0 Total Bilirubin 0.32 AST 31 ALT 30 Alkaline Phosphatase 125 H Total Protein 6.5 Albumin 3.6 Globulin 2.9 Albumin/Globulin Ratio 1.2 Lipase 34 Urine Color Yellow Urine Clarity Sl. Cloudy Urine pH 7.0 Ur Specific [place] 1.005 Urine Protein 100 H Urine Glucose (UA) 100 H Urine Ketones Negative Urine Occult Blood 50 H Urine Nitrite Positive H Urine Bilirubin Negative Urine Urobilinogen Normal Ur Leukocyte Esterase 500 H Urine RBC 0 SEEN Urine WBC >100 SEEN Ur Squamous Epith Cells 0 SEEN Urine Bacteria 0 SEEN Urine Mucus 0 SEEN Radiography Diagnostic Testing: Clinical Impression(s) from Imaging Studies Chest/Abdomen/Pelvis CT 04/09/25 11:36 IMPRESSION: 1. There is no acute process in the chest, abdomen or pelvis [id number] K[facility]-Ray 04/09/25 12:50 IMPRESSION: Small curvilinear lucency with bony fragment of the medial tibial plateau, best visualized on the AP view. This could be a nondisplaced fracture. Reading Location: [id number] Lower Extremity CT 04/09/25 14:36 IMPRESSION: No radiographic evidence of an acute osseous injury. - Findings and recommendations discussed above in detail. Reading Location: [id number] Discharge Plan Triage Chief Complaint: Abd Pain Other Complaint: Chest Other Lower Extremity Injury ED Provider: Mirlande Last Dx/Rx/DC Orders Clinical Impression: Fall, Acute knee pain, Acute chest wall pain, Abdominal pain, UTI (urinary tract infection) Instructions: ED Abdominal Pain Unkn Cause Fem, ED Chest Wall Contusion, ED Knee Sprain Prescriptions: New nitrofurantoin monohyd/m-cryst [Macrobid] 100 mg capsule 100 mg PO Q12H 5 Days Qty: 10 0RF Rx Instructions: must administer with a meal/food No Action duloxetine 60 mg capsule,delayed release(DR/EC) 120 mg PO DAILY 30 Days Qty: 60 2RF alcohol swabs Pads, Medicated 1 pad topical 4X/DAY Qty: 200 5RF allopurinol 100 mg tablet 100 mg PO DAILY insulin aspart U-100 [Novolog FlexPen U-100 Insulin] 100 unit/mL (3 mL) insulin pen 18 sliding scale dose subcut TID ibuprofen 800 mg tablet 800 mg PO DAILY mecobalamin (vitamin B12) 500 mcg tablet,chewable PO furosemide 20 mg tablet 20 mg PO QDAY losartan 100 mg tablet 100 mg PO QDAY colchicine 0.6 mg capsule 0.6 mg PO QDAY PRN (Reason: Gout) Trulicity 4.5 mg/0.5 mL pen injector 4.5 mg subcut QWEEK Qty: 2 3RF fluconazole [Diflucan] 100 mg tablet 100 mg PO DAILY Qty: 2 0RF Rx Instructions: 1 tablet, repeat in 72 hours omeprazole 20 mg capsule,delayed release(DR/EC) 40 mg PO DAILY Patient Comments: gastric reflux diphenhydramine HCl 25 mg capsule 25 mg PO DAILY PRN (Reason: allergy symptoms) ondansetron 4 mg tablet,disintegrating 4 mg PO Q6H PRN (Reason: nausea and vomiting) Qty: 10 0RF albuterol sulfate [Ventolin HFA] 90 mcg/actuation HFA aerosol inhaler 2 puff inhalation Q4H PRN PRN (Reason: Wheezing or shortness of breath) Qty: 1 0RF hydroxyzine HCl 25 mg tablet 25 mg PO DAILY PRN Galzin 25 mg (zinc) capsule 25 mg PO DAILY dicyclomine 10 mg capsule 10 mg PO TID PRN (Reason: abdominal pain) 7 Days Qty: 21 0RF ezetimibe 10 mg tablet 10 mg PO DAILY Qty: 90 3RF (DME) pen needle, diabetic [BD Ultra-Fine Thais Pen Needle] 32 gauge x 5/32 needle See Rx Instructions .Route Qty: 100 5RF Rx Instructions: daily (DME) pen needle, diabetic [BD Ultra-Fine Thais Pen Needle] 32 gauge x 5/32 needle See Rx Instructions .Route Qty: 100 5RF Rx Instructions: 4x/day lorazepam 1 mg tablet 0.5 mg PO DAILY PRN (Reason: Anxiety) Qty: 30 1RF omega-3 acid ethyl esters 1 gram capsule 1 cap PO BID Qty: 180 1RF (DME) FreeStyle Tanmay 2 Sensor Kit See Rx Instructions .Route Qty: 2 5RF Rx Instructions: 1 sensor q 14 days insulin glargine [Basaglar KwikPen U-100 Insulin] 100 unit/mL (3 mL) insulin pen 30 unit subcut QAM Qty: 27 1RF insulin glargine [Lantus Solostar U-100 Insulin] 100 unit/mL (3 mL) insulin pen 30 unit subcut QDAY Qty: 27 1RF cholecalciferol (vitamin D3) 50 mcg (2,000 unit) capsule 50 mcg PO QDAY Qty: 90 1RF Primary Care Provider: Chantale Palm NP Referrals: Chantale Palm NP, [facility] [Primary Care Provider] - 2 Days Activity Restrictions/Additional Instructions: Your evaluation in the Emergency Department did not reveal any acute reason for admission. However, I want to emphasize that you may be early in the course of a disease process or illness even if it is not present. For this reason you should follow-up within 24 hours for reevaluation with either your primary care physician or if necessary back here in the Emergency Department. You should return to the Emergency Department immediately if your symptoms worsen or new symptoms develop. Print Language: Arabic Disposition Disposition: Home, Self Care Discharge Date/Time: 04/09/25 16:13
--- OUTSIDE RECORDS SUMMARY | 2025-04-09 11:43 | XMS RPT_ITS | CCD ---
Author Organization [facility] CliniSymi Care Team Providers Care Land Degradation Analyst Name Role Phone NERY Unger RN, Rita Anayeli Unavailable Unavailabl e NERY Unger RN, Rita A Unavailable Unavailabl e Becky MURILLO, Miguel Osorio Unavailable Nena Villar Unavailable Unavailable PROVIDER, UNKNOWN Unavailable Unavailable No, PCP Unavailable Unavailable PROVIDER, UNKNOWN Unavailable Unavailable No, PCP Unavailable Unavailable Nena Villar Unavailable Unavailable NERY Unger RN, Rita Guadalupe Unavailable UnavailKarl Tapia MD Primary Care Provider [phone] Dr. Karl Pichardo Primary Care Provider Dr. Karl Pichardo Referring Provider [phone] CHEPE Greene Attending Provider CHEPE Wang Attending Provider Karl Pichardo MD Primary Care Provider Dr. Maru Fry Attending Provider Dr. Karl Pichardo Primary Care Provider Dr. Karl Pichardo Referring Provider [phone] CHEPE Greene Attending Provider CHEPE Wang Attending Provider Dr. Maru Fry Attending Provider MD Maru Fry Primary Care Provider Unavail able MD Maru Fry Referring Provider Unavailabl e BRAULIO CARE SUPPORT REPRESENTATIVE-ROTARY DRILL RIG OPERATOR, CHANTALE A Primary Care Physi justus Javed PT, Rosa [...] Unavailable KYLEE, KARL PERSAUD Primary Care Unavailable JUAQUIN, REJI ANDREWS Attending Unavailable MARU FRY Primary Care Unavailable SLOAN MUJICA Admitting Unavailable ERIC, SLOAN Attending Unavailable NAPORA, REJI ANDREWS Referring Unavailable ALEXANDREA HOLLIDAY Consulting Unavailable BRAULIO CARE SUPPORT REPRESENTATIVE-ROTARY DRILL RIG OPERATOR, CHANTALE A Attending Un available BRAULIO CARE SUPPORT REPRESENTATIVE-ROTARY DRILL RIG OPERATOR, CHANTALE A Primary Care Un available BRAULIO CARE SUPPORT REPRESENTATIVE-ROTARY DRILL RIG OPERATOR, CHANTALE A Attending Un available BRAULIO CARE SUPPORT REPRESENTATIVE-ROTARY DRILL RIG OPERATOR, CHANTALE A Primary Care Un available HUNG MATA MD Attending Unavailable BRAULIO CARE SUPPORT REPRESENTATIVE-ROTARY DRILL RIG OPERATOR, CHANTALE A Primary Care Un available WALL CARE SUPPORT REPRESENTATIVE-ROTARY DRILL RIG OPERATOR, PIPER Melendez Attending Danicavachar lable BRAULIO CARE SUPPORT REPRESENTATIVE-ROTARY DRILL RIG OPERATOR, CHANTALE A Primary Care Un available BRAULIO CARE SUPPORT REPRESENTATIVE-ROTARY DRILL RIG OPERATOR, CHANTALE A Attending Un available BRAULIO CARE SUPPORT REPRESENTATIVE-ROTARY DRILL RIG OPERATOR, CHANTALE A Primary Care Un available BRAULIO CARE SUPPORT REPRESENTATIVE-ROTARY DRILL RIG OPERATOR, CHANTALE A Attending Un available BRAULIO CARE SUPPORT REPRESENTATIVE-ROTARY DRILL RIG OPERATOR, CHANTALE A Primary Care Un available BRAULIO CARE SUPPORT REPRESENTATIVE-ROTARY DRILL RIG OPERATOR, CHANTALE A Attending Un available BRAULIO CARE SUPPORT REPRESENTATIVE-ROTARY DRILL RIG OPERATOR, CHANTALE A Primary Care Un available BRAULIO CARE SUPPORT REPRESENTATIVE-ROTARY DRILL RIG OPERATOR, CHANTALE A Attending Un available BRAULIO CARE SUPPORT REPRESENTATIVE-ROTARY DRILL RIG OPERATOR, CHANTALE A Primary Care Un available VACCARELLI PA-CMANUEL Attending Unavailab le BRAULIO CARE SUPPORT REPRESENTATIVE-ROTARY DRILL RIG OPERATOR, CHANTALE A Primary Care Un available BRAULIO CARE SUPPORT REPRESENTATIVE-ROTARY DRILL RIG OPERATOR, CHANTALE A Attending Un available BRAULIO CARE SUPPORT REPRESENTATIVE-ROTARY DRILL RIG OPERATOR, CHANTALE A Primary Care Un available BRAULIO CARE SUPPORT REPRESENTATIVE-ROTARY DRILL RIG OPERATOR, CHANTALE A Attending Un available BRAULIO CARE SUPPORT REPRESENTATIVE-ROTARY DRILL RIG OPERATOR, CHANTALE A Primary Care Un available WALL CARE SUPPORT REPRESENTATIVE-ROTARY DRILL RIG OPERATOR, PIPER Melendez Attending Danicavachar johnson BRAULIO CARE SUPPORT REPRESENTATIVE-ROTARY DRILL RIG OPERATOR, CHANTALE A Primary Care Un available HUNG MATA MD Attending Unavailable BRAULIO CARE SUPPORT REPRESENTATIVE-ROTARY DRILL RIG OPERATOR, CHANTALE A Primary Care Un available BRAULIO CARE SUPPORT REPRESENTATIVE-ROTARY DRILL RIG OPERATOR, CHANTALE A Attending Un available BRAULIO CARE SUPPORT REPRESENTATIVE-ROTARY DRILL RIG OPERATOR, CHANTALE A Primary Care Un available Kylee MURILLO, Karl Persaud Primary Care Provider REFERRING, JEROME ATKINS Attending Unavailable BRAULIO CARE SUPPORT REPRESENTATIVE-ROTARY DRILL RIG OPERATOR, CHANTALE A Primary Care Un available JIMENA MURILLO, JOHAN Referring Unavailable JIMENA MURILLO, JOHAN Attending Unavailable KAPPER CARE SUPPORT REPRESENTATIVE-ROTARY DRILL RIG OPERATOR, ROSA Osorio Admitting Unavaila ble BRAULIO CARE SUPPORT REPRESENTATIVE-ROTARY DRILL RIG OPERATOR, CHANTALE A Primary Care Un available BRAULIO CARE SUPPORT REPRESENTATIVE-ROTARY DRILL RIG OPERATOR, CHANTALE A Primary Care Un available ROSA HOLGUIN DO Attending Unavailable Braulio HEALTH TECHNICIAN, [facility] Unavailabl e Braulio HEALTH TECHNICIAN, [place] Referring Unavailabl e Noe Wang Attending Unavailable Braulio HEALTH TECHNICIAN, [place] Referring Unavailabl e Braulio HEALTH TECHNICIAN, [facility] UnavailSandi Londono Attending Unavailable Braulio HEALTH TECHNICIAN, [facility] Unavailabl kailash Eastman NP, Ame Attending Unavailable Braulio HEALTH TECHNICIAN, [place] Referring Unavailabl e Jaren BERGER, Ame Attending Unavailable Jaren BERGER, Ame Referring Unavailable Braulio HEALTH TECHNICIAN, [facility] Unavailabl e Braulio HEALTH TECHNICIAN, [facility] UnavailSandi Londono Attending Unavailable Sandi Ramírez Referring Unavailable Braulio HEALTH TECHNICIAN, [facility] UnavailSandi Londono Referring Unavailable Sandi Ramírez Attending Unavailable PATRICK NOGUEIRA Attending Unavailable PATRICK NOGUEIRA Referring Unavailable Braulio HEALTH TECHNICIAN, [facility] Unavailabl Gorge Fry Attending Unavailable Braulio HEALTH TECHNICIAN, [facility] Unavailabl e Simon Kelley Attending Unavailable Braulio HEALTH TECHNICIAN, [facility] Unavailabl e Braulio HEALTH TECHNICIAN, [facility] Unavailabl Hawk Gallegos Attending Unavailable Ame Eastman NP Referring Unavailable Braulio HEALTH TECHNICIAN, [facility] Unavailjohnny Eastman NP, Ame Attending Unavailable Braulio HEALTH TECHNICIAN, [place] Referring Unavailabl e Braulio HEALTH TECHNICIAN, [facility] UnavailKarl Shay Attending Unavailable Braulio HEALTH TECHNICIAN, [place] Referring Unavailabl e Braulio HEALTH TECHNICIAN, [facility] Unavailabl e Sandi Ramírez Attending Unavailable Jaren HEALTH TECHNICIAN, Ame Attending Unavailable Braulio HEALTH TECHNICIAN, [facility] Unavailabl e Allie, Simon Attending Unavailable Braulio HEALTH TECHNICIAN, [facility] Unavailabl e Allie, Simon Attending Unavailable Jaren HEALTH TECHNICIAN, Ame Referring Unavailable Braulio HEALTH TECHNICIAN, [facility] Unavailabl e Braulio HEALTH TECHNICIAN, [place] Referring Unavailabl e Braulio HEALTH TECHNICIAN, [facility] Unavailabl e Sandi Ramírez Attending Unavailable Braulio HEALTH TECHNICIAN, [facility] Unavailabl e Braulio HEALTH TECHNICIAN, [place] Referring Unavailabl e Sandi Ramírez Attending Unavailable Jaren HEALTH TECHNICIAN, Ame Referring Unavailable Jaren HEALTH TECHNICIAN, Ame Attending Unavailable Braulio HEALTH TECHNICIAN, [facility] Unavailabl e Braulio HEALTH TECHNICIAN, [place]ale Attending Unavailabl e Braulio HEALTH TECHNICIAN, [facility] Unavailabl e Braulio HEALTH TECHNICIAN, [place] Referring Unavailabl e Braulio HEALTH TECHNICIAN, [facility] UnavailKarl Shay Attending Unavailable Karl Ashton Referring Unavailable Braulio HEALTH TECHNICIAN, [facility] Unavailabl e Braulio HEALTH TECHNICIAN, [place] Referring Unavailabl e Braulio, Chantale Attending Unavailable Braulio HEALTH TECHNICIAN, [facility] Unavailabl e Sandi Ramírez Attending Unavailable Sandi Ramírez Referring Unavailable Allergies Allergy Classification Reported Allergen(s) Allergy Type Date of Onset Reaction(s) Facility (20 sources) Acetaminophen; Translations: [acetaminophen] Drug Allergy 12-02-19 [address] [facility] Work Phone: Comment on above: hives (9 sources) Acetaminophen / oxyCODONE; Translations: [OXYCODONE-ACETAMIN OPHEN] Drug Allergy 05-11-20 [address] [facility] (20 sources) adalimumab; Translations: [adalimumab] Drug Allergy 01-20-20 13 Other: See Comments [facility] Work Phone: (20 sources) Codeine; Translations: [codeine] Drug Allergy 05-10-[address] [facility] Work Phone: (20 sources) Etanercept; Translations: [etanercept] Drug Allergy 07-20-20 12 Other: See Comments [facility] Work Phone: (20 sources) HMG-CoA reductase inhibitor; Translations: [statins] Drug Intolerance 06-15-20 12 Other: See Comments [facility] Work Phone: (20 sources) leflunomide; Translations: [leflunomide] Drug Allergy 04-28-20 12 Other: See Comments [facility] (20 sources) Methylphenidate; Translations: [methylphenidate] Drug Allergy 12-08-19 15 Other: See Comments [facility] Work Phone: (14 sources) Metoprolol; Translations: [METOPROLOL TARTRATE] Drug Allergy 05-10-[address] [facility] Work Phone: (9 sources) Morphine; Translations: [MORPHINE] Drug Allergy 08-24-19 10 Mental Status Change [facility] Work Phone: (20 sources) Morphine / Naltrexone; Translations: [morphine-naltrexon e] Drug Allergy 07-31-[address] [facility] Work Phone: Comment on above: intolerance (20 sources) oxyMORphone; Translations: [oxymorphone] Drug Allergy 12-27-19 11 Mental Status Change [facility] (14 sources) pioglitazone; Translations: [PIOGLITAZONE HCL] Drug Allergy 04-28-20 [address] [facility] Work Phone: (9 sources) Streptococcus pneumoniae [...] 11 Shortness of Breath [facility] (18 sources) Sulfamethoxazole / Trimethoprim; Translations: [SULFAMETHOXAZOLE-T RIMETHOPRIM] Drug Allergy 12-09-19 20 Anaphylaxis, Sweating (finding), Abdominal pain (finding), Vomiting (disorder) [facility] Work Phone: (12 sources) Sulfonamides (Antibiotic); Translations: [SULFA (SULFONAMIDE ANTIBIOTICS)] Drug Allergy 04-05-20 [address] [facility] (20 sources) telithromycin; Translations: [telithromycin] Drug Allergy 05-10-20 05 Mental Status Change [facility] Work Phone: Comment on above: mental status change (14 sources) traMADol; Translations: [TRAMADOL HCL] Drug Allergy 12-27-19 11 Other: See Comments [facility] (6 sources) Environmental allergies [Other] Propensity to adverse reactions 12-27-19 [address] [facility] (6 sources) Amoxicillin; Translations: [amoxicillin trihydrate] Drug Allergy 08-23-19 Unknown [facility] (6 sources) Morphine; Translations: [morphine sulfate] Drug Allergy 08-23-19 Unknown [facility] (6 sources) Naltrexone; Translations: [naltrexone HCl] Drug Allergy 08-23-19 Unknown [facility] (5 sources) Sulfamethoxazole Drug Allergy 08-23-19 Anaphylaxis [facility] Work Phone: (5 sources) Trimethoprim Drug Allergy 08-23-19 Anaphylaxis [facility] Work Phone: (6 sources) pneumococcal 23-valent polysacchari; Translations: [pneumococcal 23-valent polysacchari] Allergy to substance 08-23-19 Unknown [facility] (6 sources) potassium clavulanate; Translations: [potassium clavulanate] Allergy to substance 08-23-19 Unknown [facility] (6 sources) Rvdocet-Qwk-Chm Reductase Inhibitor; Translations: [Guxojxx-Iey-Goc Reductase Inhibitor] Allergy to substance 08-23-19 Unknown [facility] (3 sources) HMG-CoA reductase inhibitor Drug Intolerance 06-15-20 12 Other: See Comments [facility] Work Phone: (2 sources) Sulfonamides (Antibiotic) Allergy to substance 04-04-20 Anaphylaxis [facility] Work Phone: (6 sources) dulaglutide; Translations: [dulaglutide] Drug Allergy [facility] (14 sources) Metoprolol; Translations: [metoprolol] Drug Allergy Telithromycin (product) [facility] Comment on above: palpatations (14 sources) pioglitazone; Translations: [pioglitazone] Drug Allergy [facility] Comment on above: swelling (14 sources) Pneumococcal vaccine; Translations: [pneumococcal vaccine] Drug Allergy Difficulty breathing [facility] (14 sources) traMADol; Translations: [tramadol] Drug Allergy [facility] (1 source) OTHER; Translations: [OTHER] Propensity to adverse reactions (disorder) 12-27-19 11 [facility] Repository (10 sources) Amoxicillin; Translations: [amoxicillin] Drug Allergy unknown [facility] (10 sources) Doxycycline; Translations: [doxycycline] Drug Allergy unknown [facility] (1 source) misc non-codified allergy 6 Allergy to substance Anaphylaxis (disorder) [facility] Comment on above: highly allergic to b lack mulch- the smoke from it (7 sources) misc non-codified allergy 4 Allergy to substance Anaphylaxis (disorder) [facility] Comment on above: highly allergic to b lack mulch- the smoke from it (1 source) Morphine / Naltrexone Drug Allergy 07-31-[address] [facility] Work Phone: (3 sources) lurasidone; Translations: [lurasidone] Drug Allergy Fatigue (finding) [facility] (3 sources) QUEtiapine; Translations: [quetiapine] Drug Allergy Pt states she felt drunk [facility] (2 sources) misc non-codified allergy 5 Allergy to substance Anaphylaxis (disorder) Marybeth Pepe [facility] Comment on above: highly allergic to b lack mulch- the smoke from it (1 source) adalimumab Drug Allergy 01-18-20 [facility] (1 source) Clindamycin Drug Allergy 01-18-20 [facility] (1 source) Codeine Drug Allergy 01-18-20 [facility] (1 source) Etanercept Drug Allergy 01-18-20 [facility] (1 source) leflunomide Drug Allergy 01-18-20 [facility] (1 source) Metoprolol Drug Allergy 01-18-20 [facility] (1 source) oxyMORphone Drug Allergy 01-18-20 [facility] (1 source) pioglitazone Drug Allergy 01-18-20 [facility] (1 source) Sulfamethoxazole Drug Allergy 01-18-20 [facility] (1 source) Sulfonamides (Antibiotic) Drug allergy (disorder) 01-18-20 [facility] (1 source) telithromycin Drug Allergy 01-18-20 [facility] (1 source) traMADol Drug Allergy 01-18-20 [facility] (1 source) Trimethoprim Drug Allergy 01-18-20 [facility] Medications Current Medications Medication Drug Class(es) Dates Sig (Normalized) Sig (Original) acetaminophen 500 mg oral powder (3 sources) Start: 11-24-2024 take 2 doses by mouth every six hours as needed for fever Tylenol Extra Strength 500 mg oral powder 2 packet(s), Oral, q6h, PRN as needed for fever, # 12 packet(s), 0 Refill(s) Start Date: 11/24/24 Status: Ordered Medication Dispense Status: Completed Quantity: 12.0 Unit: packet(s) Total Allowed Fills: 1 Fills Dispensed: 0 Start: 09-30-2020 take 1 capsule by [facility] every four hours as needed Tylenol 325 mg oral capsule Dose : 650 mg =, Oral, q4h, PRN Temperature greater than 38.6 degrees C, 0 Refill(s) Start Date: 09/30/20 Status: Ordered Acidophilus Probiotic Blend oral capsule (9 sources) Start: 04-07-2025 End: 04-02-2026 take 1 capsule by mouth once daily Acidophilus Probiotic Blend oral capsule Dose = 1 cap(s), Oral, qDay, # 30 cap(s), 11 Refill(s), Pharmacy: [facility], Nausea Bloating, 174, cm, 03/07/25 11:11:00 EDT, Height, kg, 03/07/25 11:11:00 EDT, Dosing Weight Start Date: 04/07/25 Stop Date: 04/02/26 Status: Ordered Medication Dispense Status: Completed Quantity: 30.0 Unit: cap(s) Total Allowed Fills: 12 Fills Dispensed: 0 Indications: Abdominal distension (gaseous); Nausea; Start: 05-05-2024 End: 04-30-2025 take 1 capsule by mouth once daily Acidophilus Probiotic Blend oral capsule Dose = 1 cap(s), Oral, qDay, # 30 cap(s), 11 Refill(s), Pharmacy: [facility], Nausea Bloating, 176, cm, [...] qDay, # 30 cap(s), 11 Refill(s), Pharmacy: [facility], Nausea Bloating, 175, cm, 03/26/23 14:42:00 EDT, Height, kg, 04/30/23 13:32:00 EDT, Dosing Weight Start Date: 04/30/23 Stop Date: 04/24/24 Status: Ordered [id number] 200 actuat albuterol 0.09 mg/actuat metered dose [...] ( 90 Base) MCG/ACT AERS ALBUTEROL SULFATE [id number] Miguel Pena MD PROAIR HFA 108 ( 90 Base) MCG/ACT AERS ALBUTEROL SULFATE [id number] Miguel Pena MD Comment on above: Inhale 2 Puffs as in structed every 4 hours as needed. albuterol MDI (90 mcg/inh) CFC free inhalation aerosol (2 sources) Start: take 1 puff(s) by inhalation every six hours as needed for wheezing albuterol MDI (90 mcg/inh) CFC free inhalation aerosol 1 puff(s), Inhalation, q6h, PRN as needed for wheezing, # 18 gram(s), 2 Refill(s), Pharmacy: [facility], 174, cm, 12/08/24 10:52:00 EDT, Height, kg, 12/08/24 10:52:00 EDT, Dosing Weight Start Date: 02/14/25 Status: Ordered Medication Dispense Status: Completed Quantity: 18.0 Unit: g Total Allowed Fills: 3 Fills Dispensed: 0 Start: 10-06-2024 take 1 puff(s) by in halation every six hours as needed for wheezing albuterol MDI (90 mcg/inh) CFC free inhalation aerosol 1 puff(s), Inhalation, q6h, PRN as needed for wheezing, # 18 gram(s), 2 Refill(s), Pharmacy: [facility], 175, cm, 09/01/24 13:07:00 EST, Height, kg, 09/01/24 13:07:00 EST, Dosing Weight Start Date: 10/06/24 Status: Ordered Quantity: 18.0 Unit: g Repeat number: 3 allopurinol 100 mg oral tablet (9 sources) Xanthine Oxidase Inhibitor Start: 11-17-2024 allopurinol 100 mg oral tablet Dose : 100 mg = 1 tab(s), Oral, qDay, # 90 tab(s), 3 Refill(s), Pharmacy: [facility], 174.8, cm, 10/26/24 11:35:00 EDT, Height, kg, 10/26/24 11:35:00 EDT, Dosing Weight Start Date: 11/17/24 Status: Ordered Medication Dispense Status: Completed Quantity: 90.0 Unit: tab(s) Total Allowed Fills: 4 Fills Dispensed: 0 Start: 12-26-2023 allopurinol 10 0 mg oral tablet Dose : 100 mg = 1 tab(s), Oral, qDay, # 30 tab(s), 3 Refill(s), Pharmacy: [facility], 176, cm, 12/26/23 13:54:00 EDT, Height, kg, 12/26/23 13:56:00 EDT, Dosing Weight Start Date: 12/26/23 Status: Ordered Start: 09-24-2023 allopurinol 10 0 mg oral tablet Dose : 100 mg = 1 tab(s), Oral, qDay, # 30 tab(s), 3 Refill(s), Pharmacy: [facility], 176, cm, 08/29/23 14:20:00 EST, Height, kg, 08/29/23 14:20:00 EST, Dosing Weight Start Date: 09/24/23 Status: Ordered Start: 03-19-2023 End: 06-17-2023 allopurinol 100 mg oral tabl et Dose : 100 mg = 1 tab(s), Oral, qDay, # 30 tab(s), 2 Refill(s), Pharmacy: [id number], 172.7, cm, 01/10/23 15:40:00 EDT, Height, kg, 02/18/23 15:24:00 EDT, Dosing Weight Start Date: 03/19/23 Stop Date: 06/17/23 Status: Ordered celecoxib 100 mg oral capsule (1 source) Nonsteroidal Anti-inflammatory Drug Start: 05-27-2022 take 1 capsule by mouth twice daily Celecoxib (Celebrex) 100 mg capsule Active 100 MG PO TWICE A DAY May 26, 2022 11:00pm cephalexin 500 mg oral capsule (12 sources) Cephalosporin Antibacterial Start: 04-08-2025 End: 04-15-2025 cephalexin 500 mg oral capsule Dose : 500 mg = 1 cap(s), Oral, q12h, dicontinue macrobid, X 7 day(s), # 14 cap(s), 0 Refill(s), 04/15/25 5:40:00 PM EDT, Pharmacy: [facility], UTI symptoms, 174, cm, 04/08/25 13:06:00 EDT, Height, 94, kg, 04/08/25 13:06:00 EDT, Dosing Weight Start Date: 04/08/25 Stop Date: 04/15/25 Status: Ordered Medication Dispense Status: Completed Quantity: 14.0 Unit: cap(s) Total Allowed Fills: 1 Fills Dispensed: 0 Indications: Unspecified symptoms and signs involving the genitourinary system; Start: 10-06-2020 cephalexin 250 mg/5 mL oral [...] 08, 2019 11:00pm January 04, 2020 10:03am cholecalciferol 0.05 mg oral capsule (11 sources) Vitamin D Start: 08-13-2024 cholecalcifero l 50 mcg (2000 intl units) oral capsule Dose : 50 mcg = 1 cap(s), Oral, Daily, 0 Refill(s) Start Date: 08/13/24 Status: Ordered Medication Dispense Status: Completed Total Allowed Fills: 1 Fills Dispensed: 0 Start: 04-04-2022 take 1 capsule by mo uth once daily Cholecalciferol (Vitamin D3) (Vitamin D3) 50 mcg (2,000 unit) Capsule Active 50 MCG PO DAILY April 03, 2022 11:00pm End: 11-01-2022 take 1 capsule by mouth once daily cholecalciferol, vitamin D3, 10 mcg (400 unit) cap Take 400 Units by mouth once daily. 11/01/2022 Discontinued Comment on above: Take 400 Units by mo [facility] once daily. cider vinegar oral tablets (1 source) Start: 1 take 1 capsule by mouth once daily cider vinegar oral tablets 1 capsule, Oral, Daily, 0 Refill(s) Start Date: 09/20/20 Status: Ordered Clobetasol (1 source) Corticosteroid Start: 3 clobetasol 0.05% topical cream Apply 1 bautista, Topical, BID, # 15 gram(s), 0 Refill(s), Pharmacy: [id number], Cream, 172.7, cm, 01/10/23 15:40:00 EDT, Height, 84.4 Start Date: 02/18/23 Status: Ordered colchicine 0.6 mg oral tablet (8 sources) Start: 5 colchicine 0.6 mg oral tablet Dose : 0.6 mg = 1 tab(s), Oral, BID, # 180 tab(s), 1 Refill(s), Pharmacy: [facility], 174.8, cm, 11/24/24 9:42:00 EDT, Height, kg, 11/24/24 9:42:00 EDT, Dosing Weight Start Date: 11/24/24 Status: Ordered Medication Dispense Status: Completed Quantity: 180.0 Unit: tab(s) Total Allowed Fills: 2 Fills Dispensed: 0 Start: 12-26-2023 colchicine 0.6 mg oral capsule See Instructions, Take 2 tabs as first dose, then 1 tab one hour later, # 3 tab(s), 3 Refill(s), Pharmacy: [facility], Gout flare, 176, cm, 12/26/23 13:54:00 EDT, Height, kg, 12/26/23 13:56:00 EDT, Dosing Weight Start Date: 12/26/23 Status: Ordered Start: 10-01-2023 colchicine 0.6 mg oral capsule See Instructions, Take 2 tabs as first dose, then 1 tab one hour later, # 3 tab(s), 3 Refill(s), Pharmacy: [facility], Gout flare, 176, cm, 09/26/23 14:49:00 EST, Height, kg, 09/26/23 14:49:00 EST, Dosing Weight Start Date: 10/01/23 Status: Ordered Start: 06-06-2023 colchicine 0.6 mg oral capsule See Instructions, Take 2 tabs as first dose, then 1 tab one hour later, # 3 tab(s), 0 Refill(s), Pharmacy: [facility], Gout flare, 175, cm, 03/26/23 14:42:00 EDT, Height, kg, 04/30/23 13:32:00 EDT, Dosing Weight Start Date: 06/06/23 Status: Ordered Continuous Glucose Monitorin g System (12 sources) Start: 07-07-2024 Continuous Glu cose Monitoring System See Instructions, Freestyle Tanmay 2 sensors for continuous glucose moitoring. #7 sensors for 90 day supply, # 2 EA, 3 Refill(s), Pharmacy: [facility], Uncontrolled diabetes mellitus with hypoglycemia, 176, cm, 06/09/24 10:19:00 EST, Height, 103.1, kg, 06/09/24 10:19:00 EST, Dosing Weight Start Date: 07/07/24 Status: Ordered Medication Dispense Status: Completed Quantity: 2.0 Unit: EA Total Allowed Fills: 4 Fills Dispensed: 0 Indications: Type 2 diabetes mellitus with hypoglycemia without coma; Start: 07-07-2024 Continuous Glu cose Monitoring System See Instructions, Freestyle Tanmay 2 sensors for continuous glucose moitoring. #7 sensors for 90 day supply, # 2 EA, 3 Refill(s), Pharmacy: [facility], Uncontrolled diabetes mellitus with hypoglycemia, 176, [...] supply, # 7 EA, 0 Refill(s), Pharmacy: [facility], Uncontrolled diabetes mellitus with hypoglycemia, 175, cm, 03/26/23 14:42:00 EDT, Height, 90.7, kg, 04/30/23 13:32:00 EDT, Dosing Weight Start Date: 05/29/23 Status: Ordered Start: 04-30-2023 Continuous Glu cose Monitoring System See Instructions, Freestyle Tanmay 2 sensors for continuous glucose moitoring. #7 sensors for 90 day supply, # 7 EA, 0 Refill(s), Pharmacy: [facility], Uncontrolled diabetes mellitus with hypoglycemia, 175, cm, 03/26/23 14:42:00 EDT, Height, 90.7, kg, 04/30/23 13:32:00 EDT, Dosing Weight Start Date: 04/30/23 Status: Ordered Start: 01-13-2023 Continuous Glu cose Monitoring System See Instructions, Freestyle Tanmay 2 sensors for continuous glucose moitoring. #7 sensors for 90 day supply, # 7 EA, 0 Refill(s), Pharmacy: [id number], Uncontrolled diabetes mellitus with hypoglycemia, 172.7, cm, 01/10/23 15:40:00 EDT, Height, 85.2, kg, 01/10/23 15:40:00 EDT, Dosing Weight Start Date: 01/13/23 Status: Ordered Start: 01-13-2023 Continuous Glu cose Monitoring System See Instructions, Freestyle Tanmay 2 sensors for continuous glucose moitoring. #7 sensors for 90 day supply, # 7 EA, 0 Refill(s), Pharmacy: [id number], Uncontrolled diabetes mellitus with hypoglycemia, [...] 2022 2:30pm DME MISCellaneous (20 sources) Start: 03-25-2025 DME MISCellaneous See Instructions, Patient needs refill on Freestyle Tanmay 2+ senors, # 2 EA, 4 Refill(s), Pharmacy: [facility], 174, cm, 03/07/25 11:11:00 EDT, Height, 91.9, kg, 03/07/25 11:11:00 EDT, Dosing Weight Start Date: 03/25/25 Status: Ordered Medication Dispense Status: Completed Quantity: 2.0 Unit: EA Total Allowed Fills: 5 Fills Dispensed: 0 Start: 11-15-2024 DME MISCellane ous See Instructions, Patient needs refill on Freestyle Tanmay 2 senors, # 2 EA, 4 Refill(s), Pharmacy: [facility], 174.8, cm, 10/26/24 11:35:00 EDT, Height, 98.1, kg, 10/26/24 11:35:00 EDT, Dosing Weight Start Date: 11/15/24 Status: Ordered Quantity: 2.0 Unit: EA Repeat number: 5 Start: 09-15-2023 DME MISCellane ous See Instructions, Patient needs refill on Freestyle Tanmay 2 senors She has been out for a week, # 2 EA, 4 Refill(s), Pharmacy: [facility], 176, cm, 08/29/23 14:20:00 EST, Height, 90.8, kg, 08/29/23 14:20:00 EST, Dosing Weight Start Date: 09/15/23 Status: Ordered Start: 10-08-2022 DME MISCellane ous See Instructions, alcohol swabs for twice daily blood glucose testing. 90 day supply., # 1 EA, 3 Refill(s), Pharmacy: [facility], DMII (diabetes mellitus, type 2), 172.7, cm, 10/08/22 10:00:00 EST, Height, 85 Start Date: 10/08/22 Status: Ordered Medication Dispense Status: Completed Quantity: 1.0 Unit: EA Total Allowed Fills: 4 Fills Dispensed: 0 Indications: Type 2 diabetes mellitus without complications; Start: 10-08-2022 DME MISCellane ous See Instructions, alcohol swabs for twice daily blood glucose testing. 90 day supply., # 1 EA, 3 Refill(s), Pharmacy: [facility], DMII (diabetes mellitus, type 2), 172.7, cm, 10/08/22 10:00:00 EST, Height, 85 Start Date: 10/08/22 Status: Ordered Quantity: 1.0 Unit: EA Repeat number: 4 Indications: Type 2 diabetes mellitus without complications; Start: 10-08-2022 DME MISCellane ous See Instructions, alcohol swabs for twice daily blood glucose testing. 90 day supply., # 1 EA, 3 Refill(s), Pharmacy: [facility], DMII (diabetes mellitus, type 2), 172.7, cm, 10/08/22 10:00:00 EST, Height, 85 Start Date: 10/08/22 Status: Ordered Start: 10-08-2022 DME MISCellane ous See Instructions, Supply 1 glucometer for blood glucose testing at home twice daily. ., # 1 EA, 0 Refill(s), Pharmacy: [facility], DMII (diabetes mellitus, type 2), 172.7, cm, 10/08/22 10:00:00 EST, Height, 85 Start Date: 10/08/22 Status: Ordered Medication Dispense Status: Completed Quantity: 1.0 Unit: EA Total Allowed Fills: 1 Fills Dispensed: 0 Indications: Type 2 diabetes mellitus without complications; Start: 10-08-2022 DME MISCellane ous See Instructions, Supply 1 glucometer for blood glucose testing at home twice daily. ., # 1 EA, 0 Refill(s), Pharmacy: [facility], DMII (diabetes mellitus, type 2), 172.7, cm, 10/08/22 10:00:00 EST, Height, 85 Start Date: 10/08/22 Status: Ordered Quantity: 1.0 Unit: EA Repeat number: 1 Indications: Type 2 diabetes mellitus without complications; Start: 10-08-2022 DME MISCellane ous See Instructions, Supply 1 glucometer for blood glucose testing at home twice daily. ., # 1 EA, 0 Refill(s), Pharmacy: [facility], DMII (diabetes mellitus, type 2), 172.7, cm, 10/08/22 10:00:00 EST, Height, 85 Start Date: 10/08/22 Status: Ordered 0.5 ML dulaglutide 9 MG/ML Auto-Injector [Trulicity] (8 sources) GLP-1 Receptor Agonist Start: 03-07-2025 Trulicity Pen 4.5 mg/0.5 mL subcutaneous solution INJECT 0.5mls UNDER THE SKIN EVERY WEEK Start Date: 03/07/25 Status: Ordered Medication Dispense Status: Completed Total Allowed Fills: 1 Fills Dispensed: 0 Start: 11-24-2024 inject 0.5 mL by sub cutaneous injection every week Trulicity Pen 3 mg/0.5 mL subcutaneous solution Dose : 3 mg = 0.5 mL, Subcutaneous, qWeek, rotate injection sites, # 2.5 mL, 0 Refill(s), Pharmacy: [facility], 174.8, cm, 11/24/24 9:42:00 EDT, [...] 2 mL, 1 Refill(s), 0.5 mL/Pen, Pharmacy: [facility], 176, cm, 08/29/23 14:20:00 EST, Height, kg, 08/29/23 14:20:00 EST, Dosing Weight Start Date: 09/24/23 Status: Ordered Start: 08-18-2023 End: 09-17-2023 inject 0.5 mL by subcutaneous injection every week Trulicity Pen 0.75 mg/0.5 mL subcutaneous solution Dose : 0.75 mg = 0.5 mL, Subcutaneous, qWeek, # 4 EA, 0 Refill(s), Pharmacy: [facility], Type 2 diabetes mellitus with diabetic neuropathy, 176, cm, 08/18/23 13:03:00 EST, Height, kg, 08/18/23 13:03:00 EST, Dosing Weight Start Date: 08/18/23 Stop Date: 09/17/23 Status: Ordered Start: 07-25-2023 Trulicity Pen 0.75 mg/0.5 mL subcutaneous solution Dose : 0.75 mg =, 0 Refill(s) Start Date: 07/25/23 Status: Ordered DULoxetine 60 mg delayed release oral capsule (20 sources) Serotonin and Norepinephrine Reuptake Inhibitor Start: 10-15-2024 End: 07-12-2025 DULoxetine 60 mg oral delayed release capsule Dose : 120 mg = 2 cap(s), Oral, qDay, # 180 cap(s), 2 Refill(s), Pharmacy: [facility], 175, cm, 09/01/24 13:07:00 EST, Height, kg, 09/01/24 13:07:00 EST, Dosing Weight Start Date: 10/15/24 Stop Date: 07/12/25 Status: Ordered Medication Dispense Status: Completed Quantity: 180.0 Unit: cap(s) Total Allowed Fills: 3 Fills Dispensed: 0 Start: 04-30-2023 End: 09-21-2024 DULoxetine 60 mg oral delaye d release capsule Dose : 120 mg = 2 cap(s), Oral, qDay, # 180 cap(s), 2 Refill(s), Pharmacy: [facility], 176, cm, 12/26/23 13:54:00 EDT, [...] qAM, # 90 tab(s), 0 Refill(s), Pharmacy: [facility], Type 2 diabetes mellitus with diabetic neuropathy, 174, cm, 12/08/24 10:52:00 EDT, Height, kg, 12/08/24 10:52:00 EDT, Dosing Weight Start Date: 12/08/24 Stop Date: 03/08/25 Status: Ordered Quantity: 90.0 Unit: tab(s) Repeat number: 1 Indications: Type 2 diabetes mellitus with diabetic neuropathy, unspecified; Start: 12-08-2024 take 1 tablet by ana th once daily Jardiance 10 mg oral tablet Dose : 10 mg = 1 tab(s), Oral, qAM, Start at 10mg once daily x30 days, then increase to 25mg once daily thereafter., # 30 tab(s), 0 Refill(s), Pharmacy: [facility], 174, cm, 12/08/24 10:52:00 EDT, Height, [...] qAM, # 30 tab(s), 0 Refill(s), Pharmacy: [facility], DMII (diabetes mellitus, type [...] (20 sources) Dietary Cholesterol Absorption Inhibitor Start: 02-14-2025 ezetimibe 10 mg oral tablet Dose : 10 mg = 1 tab(s), Oral, Daily, # 90 tab(s), 3 Refill(s), Pharmacy: [facility], 174, cm, 12/08/24 10:52:00 EDT, Height, kg, 12/08/24 10:52:00 EDT, Dosing Weight Start Date: 02/14/25 Status: Ordered Medication Dispense Status: Completed Quantity: 90.0 Unit: tab(s) Total Allowed Fills: 4 Fills Dispensed: 0 Start: 03-22-2024 ezetimibe 10 m g oral tablet Dose : 10 mg = 1 tab(s), Oral, Daily, # 90 tab(s), 3 Refill(s), Pharmacy: [facility], 176, cm, 03/10/24 8:22:00 EDT, Height, kg, 03/10/24 8:22:00 EDT, Dosing Weight Start Date: 03/22/24 Status: Ordered Quantity: 90.0 Unit: tab(s) Repeat number: 4 Start: 06-06-2023 ezetimibe 10 m g oral tablet Dose : 10 mg = 1 tab(s), Oral, Daily, # 90 tab(s), 3 Refill(s), Pharmacy: [facility], 175, cm, 03/26/23 14:42:00 [...] qDay, # 30 tab(s), 2 Refill(s), Pharmacy: [facility], HLD (hyperlipidemia) HTN (hypertension), 176, cm, 09/26/23 14:49:00 EST, Height, kg, 09/26/23 14:49:00 EST, Dosing Weight Start Date: 09/26/23 Stop Date: 12/25/23 Status: Ordered furosemide 20 mg oral tablet (12 sources) Loop Diuretic Start: 02-14-2025 Lasix 20 mg oral tablet Dose : 20 mg = 1 tab(s), Oral, qDay, # 30 tab(s), 2 Refill(s), Pharmacy: [facility], 174, cm, 12/08/24 10:52:00 EDT, Height, kg, 12/08/24 10:52:00 EDT, Dosing Weight Start Date: 02/14/25 Status: Ordered Medication Dispense Status: Completed Quantity: 30.0 Unit: tab(s) Total Allowed Fills: 3 Fills Dispensed: 0 Start: 11-24-2024 Lasix 20 mg or al tablet Dose : 20 mg = 1 tab(s), Oral, qDay, # 30 tab(s), 2 Refill(s), Pharmacy: [facility], 174.8, cm, 11/24/24 9:42:00 EDT, Height, kg, 11/24/24 9:42:00 EDT, Dosing Weight Start Date: 11/24/24 Status: Ordered Quantity: 30.0 Unit: tab(s) Repeat number: 3 Start: 11-24-2023 Lasix 20 mg or al tablet Dose : 20 mg = 1 tab(s), Oral, qDay, # 30 tab(s), 11 Refill(s), Pharmacy: [facility], 176, cm, 11/07/23 12:52:00 EDT, Height, kg, 11/07/23 12:52:00 EDT, Dosing Weight Start Date: 11/24/23 Status: Ordered Start: 10-01-2023 Lasix 20 mg or al tablet Dose : 20 mg = 1 tab(s), Oral, qDay, # 30 tab(s), 11 Refill(s), Pharmacy: [facility], 176, cm, 09/26/23 14:49:00 EST, Height, kg, 09/26/23 14:49:00 EST, Dosing Weight Start Date: 10/01/23 Status: Ordered Start: 01-03-2023 End: 06-17-2023 Lasix 20 mg oral tablet Dose : 20 mg = 1 tab(s), Oral, qDay, # 30 tab(s), 2 Refill(s), Pharmacy: [id number], 172.7, cm, 01/10/23 15:40:00 EDT, Height, kg, 02/18/23 15:24:00 EDT, Dosing Weight Start Date: 03/19/23 Stop Date: 06/17/23 Status: Ordered glimepiride 4 mg oral tablet (20 sources) Sulfonylurea Start: 10-08-2022 End: 04-06-2023 glimepiride 4 mg oral tablet Dose : 4 mg = 1 tab(s), Oral, qDay, # 90 tab(s), 1 Refill(s), Pharmacy: [facility], 172.7, cm, 10/08/22 10:00:00 [...] 2019 10:02am take 1 tablet by ana th once daily GLIMEPIRIDE 1 MG TABS One tablet by mouth daily GLIMEPIRIDE [id number] Miguel Pena MD Comment on above: Take 4 mg by mouth d aily with breakfast. Take 2 tablets by mo uth daily with breakfast. hydroCHLOROthiazide 25 mg / lisinopril 20 mg oral tablet (17 sources) Thiazide Diuretic, Angiotensin Converting Enzyme Inhibitor Start: 05-03-20 take 1 tablet by mouth at bedtime Lisinopril-Fenwick chlorothiazide Active 1 TABLET PO AT BEDTIME [...] q8h, # 270 tab(s), 3 Refill(s), Pharmacy: [facility], 174.8, cm, 10/26/24 11:35:00 EDT, Height, kg, 10/26/24 11:35:00 EDT, Dosing Weight Start Date: 11/17/24 Status: Ordered Quantity: 270.0 Unit: tab(s) Repeat number: 4 Start: 01-25-2024 ibuprofen 800 mg oral tablet Dose : 800 mg = 1 tab(s), Oral, q8h, # 30 tab(s), 2 Refill(s), Pharmacy: [facility], 176, cm, 12/26/23 13:54:00 EDT, Height, kg, 12/26/23 13:56:00 EDT, Dosing Weight Start Date: 01/25/24 Status: Ordered Start: 12-20-2022 ibuprofen 800 mg oral tablet Dose : 800 mg = 1 tab(s), Oral, q8h, # 30 tab(s), 3 Refill(s), Pharmacy: [facility], 176, cm, 09/26/23 14:49:00 EST, [...] TIDAC, # 45 mL, 0 Refill(s), Pharmacy: [facility], 174.8, cm, 11/24/24 9:42:00 EDT, Height, kg, 11/24/24 9:42:00 EDT, Dosing Weight Start Date: 12/08/24 Status: Ordered Quantity: 45.0 Unit: mL Repeat number: 1 Start: 12-24-2023 NovoLOG 100 un its/mL injectable solution Dose : 15 unit(s) =, Subcutaneous, TIDAC, # 45 mL, 3 Refill(s), Pharmacy: [facility], 176, cm, 11/07/23 12:52:00 EDT, [...] ml insulin glargine 100 unt/ml pen injector (13 sources) Insulin Analog Start: 01-25-2025 Lantus Solosta r Pen 100 units/mL 3 mL Pen Dose : 30 unit(s) =, Subcutaneous, qDay, Insurance now requirng Lantus instead of Basaglar, # 30 mL, 3 Refill(s), Pharmacy: [facility], 174, cm, 12/08/24 10:52:00 EDT, Height, kg, 12/08/24 10:52:00 EDT, Dosing Weight Start Date: 01/25/25 Status: Ordered Medication Dispense Status: Completed Quantity: 30.0 Unit: mL Total Allowed Fills: 4 Fills Dispensed: 0 Start: 10-15-2024 inject 1 dose by sub cutaneous injection once Basaglar 100 unit(s)/mL 3 mL KwikPen Dose : 30 unit(s) =, Subcutaneous, Daily, per endo, # 15 mL, 2 Refill(s), Pharmacy: [facility], 175, cm, 09/01/24 13:07:00 EST, Height, kg, 09/01/24 13:07:00 EST, Dosing Weight Start Date: 10/15/24 Status: Ordered Medication Dispense Status: Completed Quantity: 15.0 Unit: mL Total Allowed Fills: 3 Fills Dispensed: 0 Start: 12-24-2023 Basaglar 100 u nit(s)/mL 3 mL KwikPen 25u, Subcutaneous, Daily, # 15 mL, 2 Refill(s), Pharmacy: [facility], 176, cm, 11/07/23 12:52:00 EDT, [...] UNIT/ML SOPN 5 units daily INSULIN GLARGINE [id number] Miguel Pena MD LANTUS SOLOSTAR 100 UNIT/ML SOPN 5 units daily INSULIN GLARGINE [id number] Miguel Pena MD lamoTRIgine 25 mg oral [...] mg. losartan potassium 100 mg oral tablet (10 sources) Angiotensin 2 Receptor Angelina Start: 11-24-2024 End: 05-23-2025 losartan 100 mg oral tablet Dose : 100 mg = 1 tab(s), Oral, qDay, # 90 tab(s), 1 Refill(s), Pharmacy: [facility], 174.8, cm, 11/24/24 9:42:00 EDT, Height, kg, 11/24/24 9:42:00 EDT, Dosing Weight Start Date: 11/24/24 Stop Date: 05/23/25 Status: Ordered Medication Dispense Status: Completed Quantity: 90.0 Unit: tab(s) Total Allowed Fills: 2 Fills Dispensed: 0 Start: 11-24-2023 losartan 50 mg oral tablet Dose : 50 mg = 1 tab(s), Oral, qDay, # 90 tab(s), 1 Refill(s), Pharmacy: [facility], 176, cm, 11/07/23 12:52:00 EDT, Height, kg, 11/07/23 12:52:00 EDT, Dosing Weight Start Date: 11/24/23 Status: Ordered Start: 09-26-2023 losartan 50 mg oral tablet Dose : 50 mg = 1 tab(s), Oral, qDay, # 90 tab(s), 0 Refill(s), Pharmacy: [facility], 176, cm, 09/26/23 14:49:00 EST, Height, kg, 09/26/23 14:49:00 EST, Dosing Weight Start Date: 09/26/23 Status: Ordered Start: 04-30-2023 losartan 25 mg oral tablet Dose : 25 mg = 1 tab(s), Oral, qDay, # 30 tab(s), 2 Refill(s), Pharmacy: [facility], 176, cm, 08/29/23 14:20:00 EST, Height, kg, 08/29/23 14:20:00 EST, Dosing Weight Start Date: 09/01/23 Status: Ordered magnesium glycinate 100 mg o ral tablet (5 sources) Start: 02-18-2023 magnesium glyc inate 100 mg oral capsule Dose : 200 mg = 2 cap(s), Oral, qDay, # 60 cap(s), 0 Refill(s) Start Date: 02/18/23 Status: Ordered magnesium oxide 400 mg oral tablet (11 sources) Start: 02-14-2025 magnesium oxid e 400 mg oral tablet Dose : 400 mg = 1 tab(s), Oral, qDay, TAKE 1 CAPSULE BY MOUTH EVERY DAY, # 90 tab(s), 1 Refill(s), Pharmacy: [facility], 174, cm, 12/08/24 10:52:00 EDT, Height, kg, 12/08/24 10:52:00 EDT, Dosing Weight Start Date: 02/14/25 Status: Ordered Medication Dispense Status: Completed Quantity: 90.0 Unit: tab(s) Total Allowed Fills: 2 Fills Dispensed: 0 Start: 08-27-2024 magnesium oxid e 400 mg oral tablet Dose : 400 mg = 1 tab(s), Oral, qDay, TAKE 1 CAPSULE BY MOUTH EVERY DAY, # 90 tab(s), 1 Refill(s), Pharmacy: [facility], 175, cm, 08/23/24 13:53:00 EST, Height, kg, 08/23/24 13:53:00 EST, Dosing Weight Start Date: 08/27/24 Status: Ordered Quantity: 90.0 Unit: tab(s) Repeat number: 2 Start: 09-29-2023 End: 03-27-2024 magnesium oxide 400 mg oral tablet Dose : 400 mg = 1 tab(s), Oral, Daily, X 90 day(s), # 90 tab(s), 1 Refill(s), 03/27/24 5:41:00 PM EDT, Pharmacy: [facility], 176, cm, 09/26/23 14:49:00 EST, Height, kg, 09/26/23 14:49:00 EST, Dosing Weight Start Date: 09/29/23 Stop Date: 03/27/24 Status: Ordered Start: 01-03-2023 take 1 tablet by [facility] once daily Magnesium 250 mg tablet mg [...] 0 Refill(s) Start Date: 07/25/23 Status: Ordered meloxicam 15 mg oral tablet (1 source) Nonsteroidal Anti-inflammatory Drug Start: 04-08-2025 End: 05-08-2025 meloxicam 15 mg oral tablet Dose : 15 mg = 1 tab(s), Oral, qDayM, PRN Pain, Take with food/milk and fluids. Do not take any other NSAIDs while on this medication., # 30 tab(s), 0 Refill(s), Pharmacy: [facility], 174, cm, 04/08/25 13:06:00 EDT, Height, kg, 04/08/25 13:06:00 EDT, Dosing Weight Start Date: 04/08/25 Stop Date: 05/08/25 Status: Ordered Medication Dispense Status: Completed Quantity: 30.0 Unit: tab(s) Total Allowed Fills: 1 Fills Dispensed: 0 metoclopramide 10 mg oral tablet (2 sources) Dopamine-2 Receptor Antagonist Start: 04-04-2022 take 10 mg by mouth four times daily Metoclopramide Hcl Active 10 MG PO 4 TIMES DAILY April 03, 2022 11:00pm [facility] Medication (4 sources) Start: 12-20-2022 [facility] Medication Dandelion Root, 0 Refill(s), 86.8 Start Date: 12/20/22 Status: Ordered Start: 10-08-2022 [facility] Medicatio n OTC Calcium, 0 Refill(s), 79.55 Start Date: 10/08/22 Status: Ordered nitrofurantoin, macrocrystals 25 mg / nitrofurantoin, monohydrate 75 mg oral capsule (7 sources) Nitrofuran Antibacterial Start: 04-08-2025 End: 04-13-2025 nitrofurantoin macrocrystals-monohydrate 100 mg oral capsule Dose : 100 mg = 1 cap(s), Oral, BID, Take with food. Drink plenty of fluids., X 5 day(s), # 10 cap(s), 0 Refill(s), 04/13/25 1:41:00 PM EDT, Pharmacy: [facility], 174, cm, 04/08/25 13:06:00 EDT, Height, 94, kg, 04/08/25 13:06:00 EDT, Dosing Weight Start Date: 04/08/25 Stop Date: 04/13/25 Status: Ordered Medication Dispense Status: Completed Quantity: 10.0 Unit: cap(s) Total Allowed Fills: 1 Fills Dispensed: 0 Start: 02-10-2024 End: 02-17-2024 Macrobid 100 mg oral capsule Dose : 100 mg = 1 cap(s), Oral, BID, Take with food, X 7 day(s), # 14 cap(s), 0 Refill(s), 02/17/24 4:18:00 PM EDT, Pharmacy: [facility], 176, cm, 02/09/24 13:32:00 EDT, Height, 96.8, kg, 02/09/24 13:32:00 EDT, Dosing Weight Start Date: 02/10/24 Stop Date: 02/17/24 Status: Ordered Start: 07-29-2023 End: 08-05-2023 nitrofurantoin macrocrystals-monohydrate 100 mg oral capsule Dose : 100 mg = 1 cap(s), Oral, BID, Take with food, X 7 day(s), # 14 cap(s), 0 Refill(s), 08/05/23 4:46:00 PM EST, Pharmacy: [facility], UTI (urinary tract infection), bacterial, 174.3, cm, 07/25/23 7:54:00 EST, Height, 91.9, kg, 07/25/23 7:54:00 EST, Dosing Weight Start Date: 07/29/23 Stop Date: 08/05/23 Status: Ordered Start: 03-18-2022 End: 03-25-2022 take 1 capsule by mouth every twelve hours at mealtime Nitrofurantoin Monohyd/M-Cryst Discontinued 1 CAP PO Q12H 14 7 March 17, 2022 11:00pm March 24, 2022 11:04pm administer with a meal/food; swallow whole; do not open, crush, dissolve , or chew omega-3 acid ethyl esters (detention) 1000 mg oral capsule (2 sources) Start: 04-07-2025 omega-3 polyun saturated fatty acids ethyl esters 1000 mg oral capsule Dose : 1,000 mg = 1 cap(s), Oral, BID, TAKE ONE Capsule BY MOUTH TWICE DAILY, # 180 cap(s), 1 Refill(s), Pharmacy: [facility], 174, cm, 03/07/25 11:11:00 EDT, Height, kg, 03/07/25 11:11:00 EDT, Dosing Weight Start Date: 04/07/25 Status: Ordered Medication Dispense Status: Completed Quantity: 180.0 Unit: cap(s) Total Allowed Fills: 2 Fills Dispensed: 0 Start: 10-15-2024 omega-3 polyun saturated fatty acids ethyl esters 1000 mg oral capsule Dose : 1,000 mg = 1 cap(s), Oral, BID, TAKE ONE Capsule BY MOUTH TWICE DAILY, # 180 cap(s), 1 Refill(s), Pharmacy: [facility], 175, cm, 09/01/24 13:07:00 EST, Height, kg, 09/01/24 13:07:00 EST, Dosing Weight Start Date: 10/15/24 Status: Ordered Quantity: 180.0 Unit: cap(s) Repeat number: 2 omeprazole 40 mg delayed release oral capsule (20 sources) Proton Pump Inhibitor Start: 07-07-2024 omeprazo le 40 mg oral delayed release capsule Dose : 40 mg = 1 cap(s), Oral, qDay, # 90 cap(s), 3 Refill(s), Pharmacy: [facility], 176, cm, 06/09/24 10:19:00 EST, Height, kg, 06/09/24 10:19:00 EST, Dosing Weight Start Date: 07/07/24 Status: Ordered Medication Dispense Status: Completed Quantity: 90.0 Unit: cap(s) Total Allowed Fills: 4 Fills Dispensed: 0 Start: 07-12-2016 End: 05-31-2024 omeprazole 20 mg oral delaye d release capsule Dose : 20 mg = 1 cap(s), Oral, qDay, # 30 cap(s), 11 Refill(s), Pharmacy: [facility], 175, cm, 03/26/23 14:42:00 EDT, Height, kg, [...] Comment on above: TAKE 1 CAPSULE BY MO UTH TWICE DAILY 1/2 HOUR BEFORE A MEAL ondansetron 4 mg disintegrating oral tablet (20 sources) Serotonin-3 Receptor Antagonist Start: 03-14-2025 ondansetron 4 mg oral tablet, disintegrating Dose : 4 mg = 1 tab(s), Oral, q6h, PRN Nausea/Vomiting, # 20 tab(s), 3 Refill(s), Pharmacy: [facility], 174, cm, 03/07/25 11:11:00 EDT, Height, kg, 03/07/25 11:11:00 EDT, Dosing Weight Start Date: 03/14/25 Status: Ordered Medication Dispense Status: Completed Quantity: 20.0 Unit: tab(s) Total Allowed Fills: 4 Fills Dispensed: 0 Start: 10-15-2024 ondansetron 4 mg oral tablet, disintegrating Dose : 4 mg = 1 tab(s), Oral, q6h, PRN Nausea/Vomiting, # 20 tab(s), 3 Refill(s), Pharmacy: [facility], 175, larry, 09/01/24 13:07:00 EST, Height, kg, 09/01/24 13:07:00 EST, Dosing Weight Start Date: 10/15/24 Status: Ordered Quantity: 20.0 Unit: tab(s) Repeat number: 4 Start: 01-12-2024 ondansetron 4 mg oral tablet, disintegrating Dose : 4 mg = 1 tab(s), Oral, q6h, PRN Nausea/Vomiting, # 20 tab(s), 6 Refill(s), Pharmacy: [facility], 176, larry, 12/26/23 13:54:00 EDT, Height, kg, 12/26/23 13:56:00 EDT, Dosing Weight Start Date: 01/12/24 Status: Ordered Start: 11-24-2023 ondansetron 4 mg oral tablet, disintegrating Dose : 4 mg = 1 tab(s), Oral, q6h, PRN Nausea/Vomiting, # 20 tab(s), 3 Refill(s), Pharmacy: [facility], 176, cm, 11/07/23 12:52:00 EDT, Height, kg, 11/07/23 12:52:00 EDT, Dosing Weight Start Date: 11/24/23 Status: Ordered Start: 04-30-2023 ondansetron 4 mg oral tablet, disintegrating Dose : 4 mg = 1 tab(s), Oral, q6h, PRN Nausea/Vomiting, # 20 tab(s), 3 Refill(s), Pharmacy: [facility], 176, cm, 09/26/23 14:49:00 EST, [...] HC L 4 MG TABS ONDANSETRON HCL [id number] Miguel Pena MD Comment on above: TAKE 1 TABLET BY ANA TH EVERY 8 HOURS NEEDED NAUSEA phenazopyridine hydrochloride 200 mg oral tablet (1 source) Start: 04-08-2025 End: 04-10-2025 phenazopyridine 200 mg oral tablet Dose : 200 mg = 1 tab(s), Oral, TID, with food, X 2 day(s), # 6 tab(s), 0 Refill(s), 04/10/25 1:42:00 PM EDT, Pharmacy: [facility], 174, cm, 04/08/25 13:06:00 EDT, Height, kg, 04/08/25 13:06:00 EDT, Dosing Weight Start Date: 04/08/25 Stop Date: 04/10/25 Status: Ordered Medication Dispense Status: Completed Quantity: 6.0 Unit: tab(s) Total Allowed Fills: 1 Fills Dispensed: 0 potassium chloride 10 meq oral tablet (11 sources) Start: 06-23-2024 Potassium Chloride (Eqv-K-Tab) 10 mEq oral tablet, extended release Dose : 10 mEq = 1 tab(s), Oral, qDay, # 30 tab(s), 2 Refill(s), Pharmacy: [facility], 176, cm, 12/26/23 13:54:00 EDT, Height, kg, 12/26/23 13:56:00 EDT, Dosing Weight Start Date: 01/25/24 Status: Ordered Start: 09-01-2023 Potassium Chlo ride (Eqv-K-Tab) 10 mEq oral tablet, extended release Dose : 10 mEq = 1 tab(s), Oral, qDay, # 30 tab(s), 2 Refill(s), Pharmacy: [facility], 176, cm, 08/29/23 14:20:00 EST, Height, kg, 08/29/23 14:20:00 EST, Dosing Weight Start Date: 09/01/23 Status: Ordered Start: 01-10-2023 End: 07-16-2023 Potassium Chloride (Eqv-K-Ta b) 10 mEq oral tablet, extended release Dose : 10 mEq = 1 tab(s), Oral, qDay, # 30 tab(s), 5 Refill(s), Pharmacy: [id number], Hypokalemia, 172.7, cm, 01/10/23 15:40:00 EDT, Height, kg, 01/10/23 15:40:00 EDT, Dosing Weight Start Date: 01/17/23 Stop Date: 07/16/23 Status: Ordered Start: 01-10-2023 Potassium Chlo ride (Eqt-Qfpn-Hry M20) 20 mEq oral tablet, extended release [...] Inhibitor Antibacterial, Sulfonamide Antimicrobial Start: 07-25-2023 End: 07-30-2023 take 1 tablet by mouth every twelve hours Bactrim DS 800 mg-160 mg oral tablet Dose = 1 tab(s), Oral, q12h, Dosage expressed as trimethoprim, X 5 day(s), # 10 tab(s), 0 Refill(s), Pharmacy: [facility], 174.3, cm, 07/25/23 7:54:00 [...] 29, 2018 12:00am May 03, 2019 10:02am cetirizine hydrochloride 10 mg oral capsule (5 [...] One tablet by mouth daily CLONIDINE HCL [id number] Miguel Pena MD dextromethorphan hydrobromide 10 mg / guaiFENesin 200 mg / phenylephrine hydrochloride 5 mg oral tablet (5 sources) Uncompetitive M-ejygrc-C-aspartate Receptor Antagonist, Sigma-1 Agonist, alpha-1 Adrenergic Agonist Start: 07-29-2018 End: 05-03-2019 Wtdbujltakdbl-Wg-Mhgszfhjrir Discontinued 1 EACH PO TWICE A DAY July 29, 2018 12:00am May 03, 2019 10:02am doxycycline monohydrate 100 mg oral tablet (5 sources) Tetracycline-class Drug Start: 05-20-2021 End: 05-30-2021 take 100 mg by mouth twice daily Doxycycline Monohydrate Discontinued 100 MG PO TWICE A DAY 23 05May 19, 2021 11:00pm May 29, 2021 11:01pm estrogens, conjugated (detention) 0.625 mg/ml vaginal cream (6 sources) Estrogen Start: 07-13-2021 conjugated estrogens (PREMARIN) vaginal cream Indications: atrophic vaginitis associated [...] that EXENATIDE (3 sources) GLP-1 Receptor Agonist ARIEL 5 MCG PEN 5 M CG/0.02ML SOPN EXENATIDE [id number] Miguel GEORGE 5 MCG PEN 5 MCG/0.02ML SOPN EXENATIDE [id number] Miguel Pena MD fluconazole 100 mg oral tablet (7 sources) Azole Antifungal Start: 03-23-2021 End: 10-31-2022 take 1 tablet by mouth once daily fluconazole (DIFLUCAN) 100 mg tablet Take 1 tablet by mouth once daily. 03/23/2021 10/31/2022 Discontinued Comment on above: Take 1 tablet by ana th once daily. hydrocortisone 10 mg/ml / neomycin 3.5 mg/ml / polymyxin b 16720 unt/ml otic suspension (1 source) Aminoglycoside Antibacterial, Polymyxin-class Antibacterial, Corticosteroid Start: 04-15-2022 End: 04-25-2022 Neomycin-Polymyxi n-Hc Discontinued 4 DRP OTIC Q8H 10 2022 11:00pm April 24, 2022 11:03pm [...] tablet by mouth twice daily METFORMIN HCL [id number] Miguel Pena MD milk thistle extract 150 [...] on above: Take 1 capsule by mo [facility] once daily. 24 hr mirabegron 50 mg extended release oral tablet (1 source) beta3-Adrenergic Agonist Start: 07-13-2021 End: 11-22-2021 take 1 tablet by mouth once daily mirabegron (MYRBETRIQ) 50 mg Tb24 Indications: urinary urge incontinence Take 1 tablet by mouth once daily. 30 tablet 5 07/13/2021 11/22/2021 Discontinued (Course of therapy completed) Comment on above: [facility] Drug Treatment Unknown - unknown [...] 1 tablet by ana th once daily. 24 hr trospium chloride 60 mg extended release oral capsule (1 source) Cholinergic Muscarinic Antagonist Start: 07-23-20 End: 11-23-19 take 1 capsule by mouth once daily Trospium (SANCTURA SR) 60 mg cp24 Take 1 capsule by mouth once daily. 30 capsule 5 07/23/2021 11/22/2021 Discontinued (Course of therapy completed) Comment on above: Take 1 capsule by mo [facility] once daily. ubidecarenone 75 mg oral capsule (5 sources) Start: 07-06-20 End: 08-19-19 Coenzyme Q10 (Ultra Coq10) 75 mg capsule Discontinued 75 MG PO DAILY July 06, 2019 12:00am August 19, 2019 8:12pm Problems Active Problems Problem Classification Problem Date Documented Da te Episodic/Chronic Abdominal pain (5 sources) Abdominal pain; Translations: [Unspecified abdominal pain] Episodic Acute and unspecified renal failure (1 source) Acute kidney failure, unspecified; Translations: [STEFANO (acute kidney injury) (HCC)] Onset: 3 Episodic Administrative/social admission (2 sources) Persons encountering health services in other specified circumstances; Translations: [Other reasons for seeking consultation] Episodic Allergic reactions (16 sources) Allergy status to other drugs, medicaments [...] dysrhythmias (1 source) Palpitations; Translations: [Palpitations] Onset: 5 Episodic Chronic kidney disease (2 sources) Chronic kidney disease stage 3 11-24-2024 Chronic Chronic kidney disease (1 source) Chronic kidney disease; Translations: [Chronic kidney disease, stage 3 unspecified] Onset: 5 Chronic obstructive pulmonary disease and bronchiectasis (10 sources) Bronchitis; Translations: [Bronchitis, not specified as acute or chronic] Episodic Complications of surgical procedures or medical care (5 sources) Seroma following procedure; Translations: [Seroma after procedure] Episodic Conditions associated with dizziness or vertigo (2 sources) Vertigo; Translations: [Dizziness and giddiness] Episodic Coronary atherosclerosis and other heart disease (14 sources) Coronary arteriosclerosis; Translations: [Atherosclerotic heart disease of [place] [place] coronary artery without angina pectoris] Onset: 5 12-21-2022 Chronic Comment on above: Cardiac cath 11/30/19, mild coronary artery disease, preserved EF, no significant or MR. LAD 20% stenosis, left main, circumflex, rca with mild luminal irregularities. Heart cath 12/2022, 2 0% blockage. Diabetes mellitus with complications (20 sources) Secondary diabetes mellitus; Translations: [Other specified diabetes mellitus with diabetic autonomic (poly)neuropathy] Onset: 5 01-03-2023 Chronic Diabetes mellitus without complication (20 [...] biological substances, initial encounter] Episodic Esophageal disorders (16 sources) Gastro-esophageal reflux disease without esophagitis; Translations: [Gastroesophageal reflux disease] Onset: 7 10-25-2019 Chronic Essential hypertension (20 sources) Hypertensive disorder; Translations: [Essential (primary) hypertension] Onset: 7 12-18-2016 Chronic Fluid and electrolyte disorders (17 sources) Hypo-osmolality and hyponatremia; Translations: [Hypokalemia] Onset: 3 Episodic Gout and other crystal arthropathies (2 sources) Acute gout 10-26-2024 Chronic Heart valve disorders (1 source) Cardiac murmur, unspecified; Translations: [Heart murmur] Onset: 3 Episodic Hypertension with complications and secondary hypertension (1 source) Hypertensive chronic kidney disease with stage 1 through stage 4 chronic kidney disease, or unspecified chronic kidney disease; Translations: [Hypertensive chronic kidney disease with stage 1 through stage 4 chronic kidney disease, or unspecified chronic kidney disease] Onset: 5 Chronic Immunizations and screening for infectious disease (5 [...] and vomiting] Onset: 7 12-18-2016 Episodic Osteoarthritis (8 sources) Arthritis; Translations: [Unspecified osteoarthritis, unspecified site] Onset: 5 07-30-2021 Chronic Other circulatory disease (13 sources) Raynaud's disease 01-03-2023 Chronic Other circulatory disease (1 source) Raynaud's syndrome without gangrene; Translations: [Raynaud's syndrome without gangrene] Onset: 5 Chronic Other circulatory disease (10 sources) Orthostatic hypotension; Translations: [Orthostatic hypotension] Episodic Other circulatory disease (7 sources) 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 09-26-2023 Episodic Other circulatory disease (7 sources) Senile angioma 09-26-2023 Episodic Other connective tissue disease (13 sources) Foot pain 01-03-2023 Episodic Other connective tissue disease (7 sources) Myalgia caused by statin 09-26-2023 Episodic Other ear and sense organ disorders (1 source) Acute otitis externa; Translations: [Unspecified acute noninfective otitis externa, left ear] Episodic Other ear and sense organ disorders (1 source) Unspecified acute noninfective otitis externa, left ear; Translations: [Infective otitis externa, unspecified] Episodic Other eye disorders (8 sources) Disorder of eye region 08-18-2023 Episodic Other gastrointestinal disorders (5 sources) Swallowing painful; Translations: [Dysphagia, unspecified] Episodic Other gastrointestinal disorders (3 sources) Constipation 03-10-2024 Episodic Other infections; including parasitic (1 source) Disorder due to infection; Translations: [Unspecified infectious disease] Episodic Other injuries and conditions due to external causes (8 sources) Concussion injury of body structure 08-18-2023 Episodic Other injuries and conditions due to external causes (8 sources) History of fall 08-18-2023 Episodic Other liver diseases (1 source) Enzyme level - finding; Translations: [Abnormal levels of other serum enzymes] Episodic Other liver diseases (6 sources) Elevated liver enzymes level 12-26-2023 Episodic Other lower respiratory disease (5 sources) Dyspnea on exertion; Translations: [Dyspnea, unspecified] Episodic Other lower respiratory disease (1 source) Shortness of breath; Translations: [Shortness of breath] Onset: Episodic Other nervous system disorders (7 sources) Neuropathy; Translations: [Muscular dystrophy] Onset: 7 12-18-2016 Chronic Other nervous system disorders (7 sources) Complex regional pain syndrome of lower limb; Translations: [Complex regional pain syndrome I of unspecified lower limb] Onset: 6 07-30-2021 Chronic Other nervous system disorders (15 sources) Peripheral nerve disease ; Translations: [Polyneuropathy, unspecified] 07-30-2021 Chronic Other nervous system disorders (15 sources) Complex regional pain syndrome; Translations: [Complex regional pain syndrome I, unspecified] 03-26-2023 Chronic Other nervous system disorders (3 sources) Complex regional pain syndrome I, unspecified; Translations: [Reflex sympathetic dystrophy, unspecified] Chronic Other nervous system disorders (1 source) Complex regional pain syndrome I of other specified site; Translations: [Complex regional pain syndrome I of other specified site] Onset: 5 Chronic Other nervous system disorders (10 sources) Shoulder pain; Translations: [Other acute postprocedural pain] Episodic Other nervous system disorders (5 sources) Postoperative pain ; Translations: [Other acute postprocedural pain] Episodic Other non-traumatic joint disorders (1 source) Undifferentiated inflammatory polyarthritis; Translations: [Polyarthritis, unspecified] Chronic Other non-traumatic joint disorders (1 source) Chronic pain of left upper limb; Translations: [Pain in left shoulder] Episodic Other non-traumatic joint disorders (1 source) Pain in left knee; Translations: [Pain in left knee] Onset: 5 Episodic Other nutritional; endocrine; and metabolic disorders (3 sources) Overweight; Translations: [Overweight] Onset: 7 12-18-2016 Chronic Other nutritional; endocrine; and metabolic disorders (12 sources) Hypomagnesemia; Translations: [Hypomagnesemia] 09-26-2023 Chronic Other nutritional; endocrine; and metabolic disorders (5 sources) H/O: diabetes mellitus; Translations: [Personal history of other endocrine, nutritional and metabolic disease] Episodic Other screening for suspected conditions (not mental disorders or infectious disease) (13 sources) Patient encounter status; Translations: [Encounter for screening for malignant neoplasm of colon] Onset: 7 Resolved: 0 Episodic Other skin disorders (1 source) Eruption; Translations: [Rash and other nonspecific skin eruption] Episodic Other skin disorders (1 source) Rash and other nonspecific skin eruption; Translations: [Rash and other nonspecific skin eruption] Episodic Other upper respiratory disease (3 sources) Seasonal allergy; Translations: [Other seasonal allergic rhinitis] Onset: 7 12-18-2016 Chronic Other upper respiratory infections (7 sources) Sinusitis 09-26-2023 Chronic Residual codes; unclassified (7 sources) Insomnia; Translations: [...] syncope] Onset: 3 Episodic Residual codes; unclassified (13 sources) Edema of lower extremity 12-09-2022 Episodic [...] problems or disability 12-18-2016 Unclassified (2 sources) assisted (current) use of oral hypoglycemic drugs; Translations: [buttermaker (current) use of oral hypoglycemic drugs] Onset: 7 Unclassified (2 sources) Other specified postprocedural states; Translations: [Other specified postprocedural states] Onset: 7 Unclassified (8 sources) Patient encounter status 08-18-2023 Unclassified (1 source) Long-term (current) use of injectable non-insulin antidiabetic drugs; Translations: [Long-term (current) use of injectable non-insulin antidiabetic drugs] Onset: 5 Unclassified (1 source) Acute candidiasis of vulva [...] 04-11-2014 04-11-2014 Episodic Diabetes mellitus without complication (2 sources) Hyperglycemia, unspecified; Translations: [Impaired fasting glycemia] [...] 08-05-2006 Resolved: 08-30-2009 08-30-2009 Episodic Other aftercare (3 sources) buttermaker (current) use of insulin; Translations: [buttermaker (current) use of insulin] Onset: 02-20-2017 Episodic Other and unspecified benign neoplasm (3 sources) History of polyp of colon; Translations: [Personal history of colonic polyps] Onset: 12-18-2016 12-18-2016 Episodic Other circulatory disease (1 source) Personal history of transient ischemic attack (TIA), and cerebral infarction without residual deficits; Translations: [Personal history of transient ischemic attack (TIA), and cerebral infarction without residual deficits] Onset: 08-12-2024 Episodic Other connective tissue disease (9 sources) [...] connective tissue disease (1 source) Pain in left lower leg; Translations: [Pain in left lower leg] Onset: 08-12-2024 Episodic Other gastrointestinal disorders (7 sources) Diarrhea; Translations: [Diarrhea, unspecified] Onset: 08-02-2010 12-28-2010 Episodic Other gastrointestinal disorders (2 sources) Abdominal distension (gaseous); Translations: [Abdominal distension (gaseous)] Onset: 05-14-2023 Episodic Other gastrointestinal disorders (2 sources) Other fecal abnormalities; Translations: [Other fecal abnormalities] Onset: 05-14-2023 Episodic Other gastrointestinal disorders (2 sources) Constipation, unspecified; Translations: [Constipation, unspecified] Onset: 08-12-2024 Episodic Other injuries and conditions due to external causes (3 sources) Fracture of bone; Translations: [Other injury of unspecified body region] Onset: 12-18-2016 12-18-2016 Episodic Other liver diseases (7 sources) Liver mass; Translations: [Hepatomegaly, not elsewhere classified] Onset: 04-16-2010 07-30-2021 Episodic Other liver diseases (1 source) Abnormal levels of other serum enzymes; Translations: [Abnormal levels of other serum enzymes] Onset: 10-28-2024 Episodic Other nervous system disorders (1 source) [...] in unspecified shoulder] Onset: 02-19-2017 Episodic Other nutritional; endocrine; and metabolic disorders (1 source) Metabolic syndrome X; Translations: [Dysmetabolic syndrome X] Resolved: 03-01-2015 03-01-2015 Chronic Other upper respiratory infections (3 sources) Acute sinusitis; Translations: [Acute sinusitis, unspecified] Onset: 08-09-2024 Episodic Pneumonia (except that caused by tuberculosis or sexually transmitted disease) (11 sources) Pneumonia; Translations: [Pneumonia, unspecified organism] Onset: 12-18-2016 12-18-2016 Episodic Residual codes; unclassified (1 source) Intolerant [...] Test Name Value Interpretation Reference Range Facility Echo Complete W/ Contraston 01-31-2025 Echo Complete W/ Contrast [facility] [address] [place] [address] Echo Complete W/ Contrast 01/31/25 1004 MR#: [id number] Acct: [id number] Name: CHRISSY LAY Rep #: [id number] : 1965 59 From: Simon Kelley MD Attending Dr: ELOISA GrigsbyC Status: REG C Ordering Dr: Ame Eastman HEALTH TECHNICIAN HEALTH TECHNICIAN-C Date: 01/31/25 Location: [facility] Sex: F C Admitted: Reason For Study Reason For Study: Dyspnea/SOB Procedure This was a 2D Doppler, Color Flow transthoracic echocardiogram. The study was technically difficult. Contrast injection was performed. Exam performed in department. Left Ventricle Normal LV size. Left ventricular systolic function is normal. The left ventricular ejection fraction is 60 %. No regional wall motion abnormalities noted. Right Ventricle Normal RV size. Normal systolic function. Atria Normal left atrium. Normal right atrium. Mitral Valve Normal mitral valve. Tricuspid Valve Normal tricuspid valve. Aortic Valve Normal aortic valve. Pulmonic Valve Normal pulmonic valve. Great Vessels Normal aortic root. The pulmonary artery is normal size. Inferior vena cava collapse with respiration. Pericardium/Pleural No pericardial effusion. Medication Diluted definity 1ml given slow IV push to enhance endocardial definition. MMode/2D Measurements Calculations LVIDd: 4.2 cm IVSd: 1.1 cm Ao root diam: 3.2 cm LVIDs: 2.7 cm LVPWd: 1.2 cm RVDd: 3.2 cm FS: 35.0 % LAV(MOD-bp): 36.0 ml LVAd ap4: 27.5 cm2 SV(MOD-sp4): 44.9 ml LAV(MOD-bp) Indexed: 17.4 ml/m2 LVLd ap4: 8.0 cm SI(MOD-sp4): 21.7 ml/m2 LAV(MOD-sp2): 40.6 ml EDV(MOD-sp4): 77.4 ml LAV(MOD-sp4): 32.1 ml EDV(sp4-el): 80.3 ml LVAs ap4: 16.2 cm2 LVLs ap4: 6.8 cm ESV(MOD-sp4): 32.5 ml ESV(sp4-el): 33.0 ml EF(MOD-sp4): 58.1 % EF(sp4-el): 58.9 % SV(sp4-el): 47.3 ml LA A4 area: 14.1 cm2 LA dimension(2D): 4.1 cm RA A4 area: 11.3 cm2 Time Measurements MV dec time: 0.19 sec Doppler Measurements Calculations MV E max [place]: 65.3 cm/sec Lat Peak E' [place]: 8.9 cm/sec Med Peak E' [place]: 8.5 cm/sec MV A max [place]: 66.1 cm/sec E/E' lat: 7.3 E/E' med: 7.7 MV E/A: 0.99 MV V2 max: 87.4 cm/sec MV P1/2t max [place]: 84.1 cm/sec Ao V2 max: 128.5 cm/sec MV max P.1 mmHg MV P1/2t: 68.7 msec Ao max P.6 mmHg MV V2 mean: 49.0 cm/sec MV dec slope: 358.5 cm/sec2 Ao V2 mean: 98.6 cm/sec MV mean P.1 mmHg MVA(P1/2t): 3.2 cm2 Ao mean P.2 mmHg MV V2 VTI: 22.5 cm Ao V2 VTI: 27.7 cm AV (velocity ratio): 0.87 LV V1 max: 113.3 cm/sec PA V2 max: 117.2 cm/sec LV V1 max P.1 mmHg PA V2 mean: 83.8 cm/sec LV V1 mean P.0 mmHg LV V1 mean: 81.3 cm/sec LV V1 VTI: 24.0 cm ECHO/Echo Complete W/ Contrast Interpretation Summary Normal LV size. Left ventricular systolic function is normal. The left ventricular ejection fraction is 60 %. Contrast injection was performed. Structurally normal valves. Ordering Physician: Ame Eastman Referring Physician: Ame Eastman Performed By: Bert Johnson RCS 02/01/25 1351 Date Simon Kelley MD CC: NADIA Ramsey; NADIA Eastman Date Dictated: 01/31/25 1004 Date Transcribed: 02/01/25 1351 Survey Statistician: Signed Normal [facility] Endocrinology Visit Reporton 01-17-2025 Endocrinology Visit Report [facility] 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 Normal [facility] Basic Metabolic Profile (BMP )on 01-07-2025 BUN/CRE 11.7 RATIO Normal 10-20 [facility] Comment on above: Performed By: #### L [id number], L500.2500, L503.7505, L100.0100 #### [facility] [address] [place], [address] Calcium [Mass/Vol] 9.3 mg/dL Normal 7.6-11.0 [facility] Comment on above: Performed By: #### L [id number], L500.2500, L503.7505, L100.0100 #### [facility] [address] [place], [address] Chloride [Moles/Vol] 99 mmol/L Normal 98-108 [facility] Comment on above: Performed By: #### L [id number], L500.2500, L503.7505, L100.0100 #### [facility] [address] [place], [address] CO2 [Moles/Vol] 21.1 mmol/L Normal 21.0-32.0 [facility] Comment on above: Performed By: #### L [id number], L500.2500, L503.7505, L100.0100 #### [facility] [address] [place], [address] Creatinine [Mass/Vol] 0.74 mg/dL Normal 0.70-1.20 [facility] Comment on above: Performed By: #### L [id number], L500.2500, L503.7505, L100.0100 #### [facility] [address] [place], [address] GAP 15 Normal 5-15 [facility] Comment on above: Performed By: #### L [id number], L500.2500, L503.7505, L100.0100 #### [facility] [address] [place], [address] GFR/1.73 sq M.predicted among non-blacks MDRD (S/P/Bld) [Vol rate/Area] 93 mL/min/{1.73_m2} Normal >60 [facility] Comment on above: Result Comment: mL/m in/1.73m2 CKD-EPI Creatinine Equation (2020) Performed By: #### L [id number], L500.2500, L503.7505, L100.0100 #### [facility] [address] [place], [address] Glucose [Mass/Vol] 284 mg/dL High 70-99 [facility] Comment on above: Performed By: #### L 501.9520, L500.2500, L503.7505, L100.0100 #### [facility] [address] [place], [address] Potassium [Moles/Vol] 3.9 mmol/L Normal 3.3-5.1 [facility] Comment on above: Result Comment: Hemo lysis present, Results??could be affected. ?? Performed By: #### L [id number], L500.2500, L503.7505, L100.0100 #### [facility] [address] [place], [address] Sodium [Moles/Vol] 136 mmol/L Normal 133-145 [facility] Comment on above: Performed By: #### L 501.9520, L500.2500, L503.7505, L100.0100 #### [facility] [address] [place], [address] Urea nitrogen [Mass/Vol] 9 mg/dL Normal 4-19 [facility] Comment on above: Performed By: #### L 501.9520, L500.2500, L503.7505, L100.0100 #### [facility] [address] [place], [address] CBC W/Diff, Automatedon 06-0 6-2024 Absolute Lymph 3.11 X10 3/uL Normal 0.83-4.51 [facility] Comment on above: Performed By: #### L [id number], L500.2500, L503.7505, L100.0100 #### [facility] [address] [place], [address] Absolute Neut 4.8 X10 3/uL Normal 2.0-7.7 [facility] Comment on above: Performed By: #### L 501.9520, L500.2500, L503.7505, L100.0100 #### [facility] [address] [place], [address] Basophils/100 WBC (Bld) 0.7 % Normal 0-1 [facility] Comment on above: Performed By: #### L 501.9520, L500.2500, L503.7505, L100.0100 #### [facility] [address] [place], [address] Eosinophils/100 WBC (Bld) 2.2 % Normal 0-5 [facility] Comment on above: Performed By: #### L 501.9520, L500.2500, L503.7505, L100.0100 #### [facility] [address] [place], [address] Erythrocyte distribution width (RBC) [Ratio] 13.5 % Normal 11.6-14.6 [facility] Comment on above: Performed By: #### L 501.9520, L500.2500, L503.7505, L100.0100 #### [facility] [address] [place], [address] Hematocrit (Bld) [Volume fraction] 49.2 % High 37-47 [facility] Comment on above: Performed By: #### L 501.9520, L500.2500, L503.7505, L100.0100 #### [facility] [address] [place], [address] Hemoglobin (Bld) [Mass/Vol] 16.5 g/dL High 12.0-15.0 [facility] Comment on above: Performed By: #### L 501.9520, L500.2500, L503.7505, L100.0100 #### [facility] [address] [place], [address] IG% 0.200 Normal 0.0-0.9 [facility] Comment on above: Result Comment: IG% - Immature Granulocytes (promyelocytes, myelocytes and metamyelocytes) > 1% indicates that a LEFT SHIFT is Present. Performed By: #### L 501.9520, L500.2500, L503.7505, L100.0100 #### [facility] [address] [place], [address] Lymphocytes/100 WBC (Bld) 35.3 % Normal 19-41 [facility] Comment on above: Performed By: #### L 501.9520, L500.2500, L503.7505, L100.0100 #### [facility] [address] [place], [address] MCH (RBC) [Entitic mass] 30.2 pg Normal 27.0-32.0 [facility] Comment on above: Performed By: #### L 501.9520, L500.2500, L503.7505, L100.0100 #### [facility] [address] [place], [address] MCHC (RBC) [Mass/Vol] 33.5 g/dL Normal 32-36 [facility] Comment on above: Performed By: #### L 501.9520, L500.2500, L503.7505, L100.0100 #### [facility] [address] [place], [address] MCV (RBC) [Entitic vol] 89.9 fL Normal 81-99 [facility] Comment on above: Performed By: #### L 501.9520, L500.2500, L503.7505, L100.0100 #### [facility] [address] [place], [address] Monocytes/100 WBC (Bld) 6.7 % Normal 0-10 [facility] Comment on above: Performed By: #### L 501.9520, L500.2500, L503.7505, L100.0100 #### [facility] [address] [place], [address] Neutrophils/100 WBC (Bld) 54.9 % Normal 47-70 [facility] Comment on above: Performed By: #### L 501.9520, L500.2500, L503.7505, L100.0100 #### [facility] [address] [place], [address] Nucleated RBC (Bld) [#/Vol] 0 10*3/uL Normal 0-5 [facility] Comment on above: Performed By: #### L 501.9520, L500.2500, L503.7505, L100.0100 #### [facility] [address] [place], [address] Platelet mean volume (Bld) [Entitic vol] 8.9 fL Normal 6.2-12.0 [facility] Comment on above: Performed By: #### L 501.9520, L500.2500, L503.7505, L100.0100 #### [facility] [address] [place], [address] Platelets (Bld) [#/Vol] 345 10*3/uL Normal 150-450 [facility] Comment on above: Performed By: #### L 501.9520, L500.2500, L503.7505, L100.0100 #### [facility] [address] [place], [address] RBC (Bld) [#/Vol] 5.47 10*6/uL High 4.2-5.4 [facility] Comment on above: Performed By: #### L 501.9520, L500.2500, L503.7505, L100.0100 #### [facility] [address] [place], [address] RDW SD 44.9 fl High 35.1-43.9 [facility] Comment on above: Performed By: #### L 501.9520, L500.2500, L503.7505, L100.0100 #### [facility] [address] [place], [address] WBC (Bld) [#/Vol] 8.8 10*3/uL Normal 4.4-11.0 [facility] Comment on above: Performed By: #### L 501.9520, L500.2500, L503.7505, L100.0100 #### [facility] [address] [place], [address] Cardiology Visit Reporton Cardiology Visit Report [facility] [address] [place] [address] OFFICE VISIT Date of Service: 01/07/25 MR#: [id number] Acct: [id number] Name: CHRISSY LAY Rep #: [id number] : 1965 Provider: NADIA issa Age/Sex: 59/F Location: [facility] 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 Normal [facility] L503.7505on 01-07-2025 proBNP < 36 Normal <=900 [facility] Comment on above: Result Comment: Hear t Failure Unlikely: < 300 pg/mL Heart Failure Likely < 50 Years: > 450 pg/mL 50-75 Years: > 900 pg/mL >75 Years: > 1800 pg/mL Performed By: #### L 501.9520, L500.2500, L503.7505, L100.0100 #### [facility] [address] [place], [address] Thyroid Stim Hormone (TSH)on 01-07-2025 TSH 2.180 uIU/mL Normal 0.300-4.200 [facility] Comment on above: Performed By: #### L 501.9520, L500.2500, L503.7505, L100.0100 #### [facility] [address] [place], [address] XR SHOULDER MINIMUM 2 VIEWS LEFTon 01-07-2025 [...] Date: 01/07/2025 4:06:46 PM Ordering Provider: JEROME [facility] MAIN XR SPINE CERVICAL W/ OBLIQUE S [...] Sign Date: 01/07/2025 4:03:16 PM Ordering Provider: JEROME Nelson [facility] MAIN CBC W/Diff, Automatedon 05-2 Absolute Lymph 2.10 X10 3/uL Normal 0.83-4.51 [facility] Comment on above: Performed By: #### M 100.678 #### [facility] [address] [place], [address] Absolute Neut 5.1 X10 3/uL Normal 2.0-7.7 [facility] Comment on above: Performed By: #### M 100.678 #### [facility] [address] [place], [address] Basophils/100 WBC (Bld) 0.9 % Normal 0-1 [facility] Comment on above: Performed By: #### M 100.678 #### [facility] [address] [place], [address] Eosinophils/100 WBC (Bld) 1.6 % Normal 0-5 [facility] Comment on above: Performed By: #### M 100.678 #### [facility] [address] [place], [address] Erythrocyte distribution width (RBC) [Ratio] 13.1 % Normal 11.6-14.6 [facility] Comment on above: Performed By: #### M 100.678 #### [facility] [address] [place], [address] Hematocrit (Bld) [Volume fraction] 48.1 % High 37-47 [facility] Comment on above: Performed By: #### M 100.678 #### [facility] [address] [place], [address] Hemoglobin (Bld) [Mass/Vol] 16.1 g/dL High 12.0-15.0 [facility] Comment on above: Performed By: #### M 100.678 #### [facility] [address] [place], [address] IG% 0.200 Normal 0.0-0.9 [facility] Comment on above: Result Comment: IG% - Immature Granulocytes (promyelocytes, myelocytes and metamyelocytes) > 1% indicates that a LEFT SHIFT is Present. Performed By: #### M 100.678 #### [facility] [address] [place], [address] Lymphocytes/100 WBC (Bld) 25.8 % Normal 19-41 [facility] Comment on above: Performed By: #### M 100.678 #### [facility] [address] [place], [address] MCH (RBC) [Entitic mass] 30.1 pg Normal 27.0-32.0 [facility] Comment on above: Performed By: #### M 100.678 #### [facility] [address] [place], [address] MCHC (RBC) [Mass/Vol] 33.5 g/dL Normal 32-36 [facility] Comment on above: Performed By: #### M 100.678 #### [facility] [address] [place], [address] MCV (RBC) [Entitic vol] 89.9 fL Normal 81-99 [facility] Comment on above: Performed By: #### M 100.678 #### [facility] [address] [place], [address] Monocytes/100 WBC (Bld) 8.2 % Normal 0-10 [facility] Comment on above: Performed By: #### M 100.678 #### [facility] [address] [place], [address] Neutrophils/100 WBC (Bld) 63.3 % Normal 47-70 [facility] Comment on above: Performed By: #### M 100.678 #### [facility] [address] [place], [address] Nucleated RBC (Bld) [#/Vol] 0 10*3/uL Normal 0-5 [facility] Comment on above: Performed By: #### M 100.678 #### [facility] [address] [place], [address] Platelet mean volume (Bld) [Entitic vol] 9.0 fL Normal 6.2-12.0 [facility] Comment on above: Performed By: #### M 100.678 #### [facility] [address] [place], [address] Platelets (Bld) [#/Vol] 347 10*3/uL Normal 150-450 [facility] Comment on above: Performed By: #### M 100.678 #### [facility] [address] [place], [address] RBC (Bld) [#/Vol] 5.35 10*6/uL Normal 4.2-5.4 [facility] Comment on above: Performed By: #### M 100.678 #### [facility] [address] [place], [address] RDW SD 42.2 fl Normal 35.1-43.9 [facility] Comment on above: Performed By: #### M 100.678 #### [facility] [address] [place], [address] WBC (Bld) [#/Vol] 8.1 10*3/uL Normal 4.4-11.0 [facility] Comment on above: Performed By: #### M 100.678 #### [facility] [address] [place], [address] CRPon 12-23-2024 C-REACTIVE PROT 13.60 mg/L High 0.0-3.0 [facility] Comment on above: Performed By: #### L 501.9520, L500.2500, L503.7505, L100.0100 #### [facility] [address] [place], [address] Comprehensive Metabolic Prof ilon 12-23-2024 Albumin [Mass/Vol] 4.1 g/dL Normal 3.5-5.0 [facility] Comment on above: Performed By: #### M 100.678 #### [facility] [address] [place], [address] Albumin/Globulin [Mass ratio] 1.3 {ratio} Normal 0.9-2.4 [facility] Comment on above: Performed By: #### M 100.678 #### [facility] [address] [place], [address] ALK PHOS 154 U/L High 35-104 [facility] Comment on above: Performed By: #### M 100.678 #### [facility] [address] [place], [address] ALT [Catalytic activity/Vol] 95 U/L High <=34 [facility] Comment on above: Performed By: #### M 100.678 #### [facility] [address] [place], [address] AST [Catalytic activity/Vol] 121 U/L High <=31 [facility] Comment on above: Performed By: #### M 100.678 #### [facility] [address] [place], [address] Bilirubin [Mass/Vol] 0.37 mg/dL Normal 0.00-1.30 [facility] Comment on above: Performed By: #### M 100.678 #### [facility] [address] [place], [address] BUN/CRE 11.5 RATIO Normal 10-20 [facility] Comment on above: Performed By: #### M 100.678 #### [facility] [address] [place], [address] Calcium [Mass/Vol] 8.6 mg/dL Normal 7.6-11.0 [facility] Comment on above: Performed By: #### M 100.678 #### [facility] [address] [place], [address] Chloride [Moles/Vol] 101 mmol/L Normal 98-108 [facility] Comment on above: Performed By: #### M 100.678 #### [facility] [address] [place], [address] CO2 [Moles/Vol] 16.7 mmol/L Low 21.0-32.0 [facility] Comment on above: Performed By: #### M 100.678 #### [facility] [address] [place], [address] Creatinine [Mass/Vol] 0.68 mg/dL Low 0.70-1.20 [facility] Comment on above: Performed By: #### M 100.678 #### [facility] [address] [place], [address] ECRCL 107.84 ml/min Normal 50-250 [facility] Comment on above: Performed By: #### M 100.678 #### [facility] [address] [place], [address] GAP 18 High 5-15 [facility] Comment on above: Performed By: #### M 100.678 #### [facility] [address] [place], [address] GFR/1.73 sq M.predicted among non-blacks MDRD (S/P/Bld) [Vol rate/Area] 101 mL/min/{1.73_m2} Normal >60 [facility] Comment on above: Result Comment: mL/m in/1.73m2 CKD-EPI Creatinine Equation (2020) Performed By: #### M 100.678 #### [facility] [address] [place], [address] Globulin (S) [Mass/Vol] 3.2 g/dL Normal 2.2-4.2 [facility] Comment on above: Performed By: #### M 100.678 #### [facility] [address] [place], [address] Glucose [Mass/Vol] 299 mg/dL High 70-99 [facility] Comment on above: Performed By: #### M 100.678 #### [facility] [address] [place], [address] Potassium [Moles/Vol] 3.1 mmol/L Low 3.3-5.1 [facility] Comment on above: Performed By: #### M 100.678 #### [facility] [address] [place], [address] Sodium [Moles/Vol] 135 mmol/L Normal 133-145 [facility] Comment on above: Performed By: #### M 100.678 #### [facility] [address] [place], [address] T PROT 7.3 g/dL Normal 5.9-8.4 [facility] Comment on above: Performed By: #### M 100.678 #### [facility] [address] [place], [address] Urea nitrogen [Mass/Vol] 8 mg/dL Normal 4-19 [facility] Comment on above: Performed By: #### M 100.678 #### [facility] [address] [place], [address] Emergency Department Summary on 12-23-2024 Emergency Department Summary [facility] Medical Records Department [address] [place] [address] Emergency Department Summary 12/23/24 MR#: [id number] Acct: [id number] Name: CHRISSY LAY Rep #: [id number] : 1965 59 From: Gorge Hoffman DO [...] fevers. She just does not feel well. [facility] Medical History Osteoarthritis of left knee [...] PRN abdomin (more content not included)... Normal [facility] Erythrocyte Sed Rateon 12-23 SED RATE 29 mm/hr Normal 0-30 [facility] Comment on above: Performed By: #### M 100.678 #### [facility] [address] [place], [place], [id number] M100.678on 12-23-2024 M100.678 Normal Reference Ran ge = Negative FLUABV+SARS-CoV-2+RSV Pnl Resp JALIL+probe GeneXpert Instrument, PCR method SARS-CoV-2 (COVID 19) Negative INFLUENZA A Negative INFLUENZA B Negative RSV PCR Negative Normal [facility] Comment on above: Performed By: #### M 100.678 #### [facility] [address] [place], [place], [address] Urinalysis, Completeon 12-23 BACTERIA 1+ /hpf Normal None Seen [facility] Comment on above: Order Comment: CLEAN CATCH Performed By: #### L 400.0001 #### [facility] [address] [place], [address] EPI,SQUAMOUS 0-5 SEEN Normal 5-10 [facility] Comment on above: Order Comment: CLEAN CATCH Performed By: #### L 400.0001 #### [facility] [address] [place], [address] WBC 0-5 SEEN Normal 0-5 [facility] Comment on above: Order Comment: CLEAN CATCH Performed By: #### L 400.0001 #### [facility] [address] [place], [address] Mucus Ql (Urine sed) 0 SEEN Normal [facility] Comment on above: Order Comment: CLEAN CATCH Performed By: #### L 400.0001 #### [facility] [address] [place], [address] RBC 0 SEEN Normal 0-5 [facility] Comment on above: Order Comment: CLEAN CATCH Performed By: #### L 400.0001 #### [facility] [address] [place], [address] OT Functional Capacity Evalo n 12-21-2024 OT Functional Capacity Eval 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 Normal [facility] CBC-Complete Blood Cnt No Di ffon 12-01-2024 Erythrocyte distribution width (RBC) [Ratio] 12.4 % Normal 11.6-14.6 [facility] Comment on above: Performed By: #### L 501.9520, L500.2500, L503.7505, L100.0100 #### [facility] [address] [place], [address] Hematocrit (Bld) [Volume fraction] 45.2 % Normal 37-47 [facility] Comment on above: Performed By: #### L 501.9520, L500.2500, L503.7505, L100.0100 #### [facility] [address] [place], [address] Hemoglobin (Bld) [Mass/Vol] 15.3 g/dL High 12.0-15.0 [facility] Comment on above: Performed By: #### L 501.9520, L500.2500, L503.7505, L100.0100 #### [facility] [address] [place], [address] MCH (RBC) [Entitic mass] 30.2 pg Normal 27.0-32.0 [facility] Comment on above: Performed By: #### L 501.9520, L500.2500, L503.7505, L100.0100 #### [facility] [address] [place], [address] MCHC (RBC) [Mass/Vol] 33.8 g/dL Normal 32-36 [facility] Comment on above: Performed By: #### L 501.9520, L500.2500, L503.7505, L100.0100 #### [facility] [address] [place], [address] MCV (RBC) [Entitic vol] 89.3 fL Normal 81-99 [facility] Comment on above: Performed By: #### L 501.9520, L500.2500, L503.7505, L100.0100 #### [facility] [address] [place], [address] Platelet mean volume (Bld) [Entitic vol] 9.3 fL Normal 6.2-12.0 [facility] Comment on above: Performed By: #### L 501.9520, L500.2500, L503.7505, L100.0100 #### [facility] [address] [place], [address] Platelets (Bld) [#/Vol] 276 10*3/uL Normal 150-450 [facility] Comment on above: Performed By: #### L 501.9520, L500.2500, L503.7505, L100.0100 #### [facility] [address] [place], [address] RBC (Bld) [#/Vol] 5.06 10*6/uL Normal 4.2-5.4 [facility] Comment on above: Performed By: #### L 501.9520, L500.2500, L503.7505, L100.0100 #### [facility] [address] [place], [address] RDW SD 40.5 fl Normal 35.1-43.9 [facility] Comment on above: Performed By: #### L 501.9520, L500.2500, L503.7505, L100.0100 #### [facility] [address] [place], [address] WBC (Bld) [#/Vol] 8.9 10*3/uL Normal 4.4-11.0 [facility] Comment on above: Performed By: #### L 501.9520, L500.2500, L503.7505, L100.0100 #### [facility] [address] [place], [address] Comprehensive Metabolic Prof [facility] 12-01-2024 Albumin [Mass/Vol] 3.9 g/dL Normal 3.5-5.0 [facility] Comment on above: Performed By: #### L 501.9520, L500.2500, L503.7505, L100.0100 #### [facility] [address] [place], [address] Albumin/Globulin [Mass ratio] 1.5 {ratio} Normal 0.9-2.4 [facility] Comment on above: Performed By: #### L 501.9520, L500.2500, L503.7505, L100.0100 #### [facility] [address] [place], [address] ALK PHOS 132 U/L High 35-104 [facility] Comment on above: Performed By: #### L 501.9520, L500.2500, L503.7505, L100.0100 #### [facility] [address] [place], [address] ALT [Catalytic activity/Vol] 77 U/L High <=34 [facility] Comment on above: Performed By: #### L 501.9520, L500.2500, L503.7505, L100.0100 #### [facility] [address] [place], [address] AST [Catalytic activity/Vol] 85 U/L High <=31 [facility] Comment on above: Performed By: #### L 501.9520, L500.2500, L503.7505, L100.0100 #### [facility] [address] [place], [address] Bilirubin [Mass/Vol] 0.33 mg/dL Normal 0.00-1.30 [facility] Comment on above: Performed By: #### L 501.9520, L500.2500, L503.7505, L100.0100 #### [facility] [address] [place], [address] BUN/CRE 16.9 RATIO Normal 10-20 [facility] Comment on above: Performed By: #### L 501.9520, L500.2500, L503.7505, L100.0100 #### [facility] [address] [place], [address] Calcium [Mass/Vol] 9.2 mg/dL Normal 7.6-11.0 [facility] Comment on above: Performed By: #### L 501.9520, L500.2500, L503.7505, L100.0100 #### [facility] [address] [place], [address] Chloride [Moles/Vol] 103 mmol/L Normal 98-108 [facility] Comment on above: Performed By: #### L 501.9520, L500.2500, L503.7505, L100.0100 #### [facility] [address] [place], [address] CO2 [Moles/Vol] 21.9 mmol/L Normal 21.0-32.0 [facility] Comment on above: Performed By: #### L 501.9520, L500.2500, L503.7505, L100.0100 #### [facility] [address] [place], [address] Creatinine [Mass/Vol] 0.64 mg/dL Low 0.70-1.20 [facility] Comment on above: Performed By: #### L 501.9520, L500.2500, L503.7505, L100.0100 #### [facility] [address] [place], [address] GAP 13 Normal 5-15 [facility] Comment on above: Performed By: #### L 501.9520, L500.2500, L503.7505, L100.0100 #### [facility] [address] [place], [address] GFR/1.73 sq M.predicted among non-blacks MDRD (S/P/Bld) [Vol rate/Area] 102 mL/min/{1.73_m2} Normal >60 [facility] Comment on above: Result Comment: mL/m in/1.73m2 CKD-EPI Creatinine Equation (2020) Performed By: #### L 501.9520, L500.2500, L503.7505, L100.0100 #### [facility] [address] [place], [address] Globulin (S) [Mass/Vol] 2.7 g/dL Normal 2.2-4.2 [facility] Comment on above: Performed By: #### L 501.9520, L500.2500, L503.7505, L100.0100 #### [facility] [address] [place], [address] Glucose [Mass/Vol] 313 mg/dL High 70-99 [facility] Comment on above: Performed By: #### L 501.9520, L500.2500, L503.7505, L100.0100 #### [facility] [address] [place], [address] Potassium [Moles/Vol] 4.1 mmol/L Normal 3.3-5.1 [facility] Comment on above: Performed By: #### L 501.9520, L500.2500, L503.7505, L100.0100 #### [facility] [address] [place], [address] Sodium [Moles/Vol] 138 mmol/L Normal 133-145 [facility] Comment on above: Performed By: #### L 501.9520, L500.2500, L503.7505, L100.0100 #### [facility] [address] [place], [address] T PROT 6.6 g/dL Normal 5.9-8.4 [facility] Comment on above: Performed By: #### L 501.9520, L500.2500, L503.7505, L100.0100 #### [facility] [address] [place], [address] Urea nitrogen [Mass/Vol] 11 mg/dL Normal 4-19 [facility] Comment on above: Performed By: #### L 501.9520, L500.2500, L503.7505, L100.0100 #### [facility] [address] [place], [address] Lipid Profileon 12-01-2024 CHOL:HDL 4.90 Normal [facility] Comment on above: Performed By: #### L 501.9520, L500.2500, L503.7505, L100.0100 #### [facility] [address] [place], [address] Cholesterol [Mass/Vol] 223 mg/dL High <=200 [facility] Comment on above: Result Comment: Chol esterol level, Desirable <200 mg/dL Borderline high cholesterol 200-239 mg/dL High cholesterol >=240 mg/dL Recommendations of the NCEP Adult Treatment Panel for the following risk-cutoff thresholds for the [place] population. Performed By: #### L 501.9520, L500.2500, L503.7505, L100.0100 #### [facility] [address] [place], [address] Cholesterol in HDL [Mass/Vol] 46 mg/dL Normal [facility] Comment on above: Result Comment: Bárbara onal Cholesterol Education Program (NCEP) guidelines: <40 mg/dL: Low HDL-cholesterol (major risk factor for CHD) >= 60 mg/dL: High HDL-cholesterol (negative risk factor for CHD) HDL-cholesterol is affected by a number of factors, e.g. smoking, exercise, hormones, sex and age. Performed By: #### L 501.9520, L500.2500, L503.7505, L100.0100 #### [facility] [address] [place], [address] Cholesterol in LDL [Mass/Vol] 134 mg/dL Normal [facility] Comment on above: Result Comment: Bord nhleem=462-802 mg/dL Higher Aixi=523 mg/dL or greater Performed By: #### L 501.9520, L500.2500, L503.7505, L100.0100 #### [facility] [address] [place], [address] Cholesterol in VLDL [Mass/Vol] 44 mg/dL High 5-40 [facility] Comment on above: Performed By: #### L 501.9520, L500.2500, L503.7505, L100.0100 #### [facility] [address] [place], [address] Triglyceride [Mass/Vol] 220 mg/dL High [facility] Comment on above: Result Comment: The drugs N-Acetylcysteine and Metamizole may falsely depress this assay. Normal range: <150 mg/dL Borderline High: 150-199 mg/dL High: 200-499 mg/dL Very High: >500 mg/dL Performed By: #### L 501.9520, L500.2500, L503.7505, L100.0100 #### [facility] [address] [place], [address] T4 Free Directon 12-01-2024 T4 FREE DIRECT 0.80 ng/dL Normal 0.76-1.46 [facility] Comment on above: Performed By: #### L 501.9520, L500.2500, L503.7505, L100.0100 #### [facility] [address] [place], [address] Thyroid Stim Hormone (TSH)on 12-01-2024 TSH 1.950 uIU/mL Normal 0.300-4.200 [facility] Comment on above: Performed By: #### L 501.9520, L500.2500, L503.7505, L100.0100 #### [facility] [address] [place], [address] Vitamin D,25 Hydroxyon 12-01 Vitamin D 25-OH 42.9 ng/mL Normal 30-100 [facility] Comment on above: Result Comment: Maryam min D Status Deficiency: <20 ng/mL (50nmol/L) Insufficiency: 20-30 ng/mL (50-75 nmol/L) Sufficiency: 30-100 ng/mL (75-250 nmol/L) Toxicity: >100 ng/mL (>250 nmol/L) Performed By: #### L 501.9520, L500.2500, L503.7505, L100.0100 #### [facility] [address] [place], [address] Abdomen/Pelvis W IV Cont ONL Yon 11-07-2024 Abdomen/Pelvis W IV Cont ONLY [facility] Imaging Services [address] [place] [address] Abdomen/Pelvis W IV Cont ONLY MR#: [id number] Acct: [id number] Name: CHRISSY LAY Louie Rep #: [id number] : 1965 F 59 From: Jackelyn Dhaliwal DO PCP: Chantale Ramsey, HEALTH TECHNICIAN-C Status: REG ER Study: Abdomen/Pelvis W IV Cont ONLY Date of Exam: Exam# [id number] Ordering Dr: Petty Quiroz PROCEDURE: ABDOMEN/PELVIS W [...] OR PELVIS ON CONTRAST-ENHANCED CT. Reading Location: GAYE CC: NADIA Ramsey; CHEPE Singh Survey Statistician: Signed Normal [facility] CBC W/Diff, Automatedon 04-0 -2024 Absolute Lymph 3.15 X10 3/uL Normal 0.83-4.51 [facility] Comment on above: Performed By: #### L 500.4050, L501.2450, L100.0100 #### [facility] [address] [place], [address] Absolute Neut 4.4 X10 3/uL Normal 2.0-7.7 [facility] Comment on above: Performed By: #### L 500.4050, L501.2450, L100.0100 #### [facility] [address] [place], [address] Basophils/100 WBC (Bld) 0.6 % Normal 0-1 [facility] Comment on above: Performed By: #### L 500.4050, L501.2450, L100.0100 #### [facility] [address] [place], [address] Eosinophils/100 WBC (Bld) 1.2 % Normal 0-5 [facility] Comment on above: Performed By: #### L 500.4050, L501.2450, L100.0100 #### [facility] [address] [place], [address] Erythrocyte distribution width (RBC) [Ratio] 13.3 % Normal 11.6-14.6 [facility] Comment on above: Performed By: #### L 500.4050, L501.2450, L100.0100 #### [facility] [address] [place], [address] Hematocrit (Bld) [Volume fraction] 50.8 % High 37-47 [facility] Comment on above: Performed By: #### L 500.4050, L501.2450, L100.0100 #### [facility] [address] [place], [address] Hemoglobin (Bld) [Mass/Vol] 16.8 g/dL High 12.0-15.0 [facility] Comment on above: Performed By: #### L 500.4050, L501.2450, L100.0100 #### [facility] [address] [place], [address] IG% 0.200 Normal 0.0-0.9 [facility] Comment on above: Result Comment: IG% - Immature Granulocytes (promyelocytes, myelocytes and metamyelocytes) > 1% indicates that a LEFT SHIFT is Present. Performed By: #### L 500.4050, L501.2450, L100.0100 #### [facility] [address] [place], [address] Lymphocytes/100 WBC (Bld) 37.2 % Normal 19-41 [facility] Comment on above: Performed By: #### L 500.4050, L501.2450, L100.0100 #### [facility] [address] [place], [address] MCH (RBC) [Entitic mass] 29.8 pg Normal 27.0-32.0 [facility] Comment on above: Performed By: #### L 500.4050, L501.2450, L100.0100 #### [facility] [address] [place], [address] MCHC (RBC) [Mass/Vol] 33.1 g/dL Normal 32-36 [facility] Comment on above: Performed By: #### L 500.4050, L501.2450, L100.0100 #### [facility] [address] [place], [address] MCV (RBC) [Entitic vol] 90.2 fL Normal 81-99 [facility] Comment on above: Performed By: #### L 500.4050, L501.2450, L100.0100 #### [facility] [address] [place], [address] Monocytes/100 WBC (Bld) 8.6 % Normal 0-10 [facility] Comment on above: Performed By: #### L 500.4050, L501.2450, L100.0100 #### [facility] [address] [place], [address] Neutrophils/100 WBC (Bld) 52.2 % Normal 47-70 [facility] Comment on above: Performed By: #### L 500.4050, L501.2450, L100.0100 #### [facility] [address] [place], [address] Nucleated RBC (Bld) [#/Vol] 0 10*3/uL Normal 0-5 [facility] Comment on above: Performed By: #### L 500.4050, L501.2450, L100.0100 #### [facility] [address] [place], [address] Platelet mean volume (Bld) [Entitic vol] 9.1 fL Normal 6.2-12.0 [facility] Comment on above: Performed By: #### L 500.4050, L501.2450, L100.0100 #### [facility] [address] [place], [address] Platelets (Bld) [#/Vol] 301 10*3/uL Normal 150-450 [facility] Comment on above: Performed By: #### L 500.4050, L501.2450, L100.0100 #### [facility] [address] [place], [address] RBC (Bld) [#/Vol] 5.63 10*6/uL High 4.2-5.4 [facility] Comment on above: Performed By: #### L 500.4050, L501.2450, L100.0100 #### [facility] [address] [place], [address] RDW SD 44.2 fl High 35.1-43.9 [facility] Comment on above: Performed By: #### L 500.4050, L501.2450, L100.0100 #### [facility] [address] [place], [address] WBC (Bld) [#/Vol] 8.5 10*3/uL Normal 4.4-11.0 [facility] Comment on above: Performed By: #### L 500.4050, L501.2450, L100.0100 #### [facility] [address] [place], [address] Comprehensive Metabolic Prof ilon 11-07-2024 Albumin [Mass/Vol] 4.4 g/dL Normal 3.5-5.0 [facility] Comment on above: Performed By: #### L 500.4050, L501.2450, L100.0100 #### [facility] [address] [place], [address] Albumin/Globulin [Mass ratio] 1.4 {ratio} Normal 0.9-2.4 [facility] Comment on above: Performed By: #### L 500.4050, L501.2450, L100.0100 #### [facility] [address] [place], [address] ALK PHOS 186 U/L High 35-104 [facility] Comment on above: Performed By: #### L 500.4050, L501.2450, L100.0100 #### [facility] [address] [place], [address] ALT [Catalytic activity/Vol] 87 U/L High <=34 [facility] Comment on above: Performed By: #### L 500.4050, L501.2450, L100.0100 #### [facility] [address] [place], [address] AST [Catalytic activity/Vol] 67 U/L High <=31 [facility] Comment on above: Performed By: #### L 500.4050, L501.2450, L100.0100 #### [facility] [address] [place], [address] Bilirubin [Mass/Vol] 0.64 mg/dL Normal 0.00-1.30 [facility] Comment on above: Performed By: #### L 500.4050, L501.2450, L100.0100 #### [facility] [address] [place], [address] BUN/CRE 9.0 RATIO Low 10-20 [facility] Comment on above: Performed By: #### L 500.4050, L501.2450, L100.0100 #### [facility] [address] [place], [address] Calcium [Mass/Vol] 9.7 mg/dL Normal 7.6-11.0 [facility] Comment on above: Performed By: #### L 500.4050, L501.2450, L100.0100 #### [facility] [address] [place], [address] Chloride [Moles/Vol] 95 mmol/L Low 98-108 [facility] Comment on above: Performed By: #### L 500.4050, L501.2450, L100.0100 #### [facility] [address] [place], [address] CO2 [Moles/Vol] 19.1 mmol/L Low 21.0-32.0 [facility] Comment on above: Performed By: #### L 500.4050, L501.2450, L100.0100 #### [facility] [address] [place], [address] Creatinine [Mass/Vol] 0.95 mg/dL Normal 0.70-1.20 [facility] Comment on above: Performed By: #### L 500.4050, L501.2450, L100.0100 #### [facility] [address] [place], [address] ECRCL 77.21 ml/min Normal 50-250 [facility] Comment on above: Performed By: #### L 500.4050, L501.2450, L100.0100 #### [facility] [address] [place], [address] GAP 18 High 5-15 [facility] Comment on above: Performed By: #### L 500.4050, L501.2450, L100.0100 #### [facility] [address] [place], [address] GFR/1.73 sq M.predicted among non-blacks MDRD (S/P/Bld) [Vol rate/Area] 70 mL/min/{1.73_m2} Normal >60 [facility] Comment on above: Result Comment: mL/m in/1.73m2 CKD-EPI Creatinine Equation (2020) Performed By: #### L 500.4050, L501.2450, L100.0100 #### [facility] [address] [place], [address] Globulin (S) [Mass/Vol] 3.1 g/dL Normal 2.2-4.2 [facility] Comment on above: Performed By: #### L 500.4050, L501.2450, L100.0100 #### [facility] [address] [place], [address] Glucose [Mass/Vol] 393 mg/dL High 70-99 [facility] Comment on above: Performed By: #### L 500.4050, L501.2450, L100.0100 #### [facility] [address] [place], [address] Potassium [Moles/Vol] 3.4 mmol/L Normal 3.3-5.1 [facility] Comment on above: Performed By: #### L 500.4050, L501.2450, L100.0100 #### [facility] [address] [place], [address] Sodium [Moles/Vol] 132 mmol/L Low 133-145 [facility] Comment on above: Performed By: #### L 500.4050, L501.2450, L100.0100 #### [facility] [address] [place], [address] T PROT 7.6 g/dL Normal 5.9-8.4 [facility] Comment on above: Performed By: #### L 500.4050, L501.2450, L100.0100 #### [facility] [address] [place], [address] Urea nitrogen [Mass/Vol] 8 mg/dL Normal 4-19 [facility] Comment on above: Performed By: #### L 500.4050, L501.2450, L100.0100 #### [facility] [address] [place], [address] Emergency Department Summary on 11-07-2024 Emergency Department Summary [facility] Medical Records Department [address] [place] [address] Emergency Department Summary 11/07/24 MR#: [id number] Acct: [id number] Name: CHRISSY LAY Rep #: [id number] : 1965 59 From: Petty [place] PCP: Chantale Ramsey HEALTH TECHNICIAN-C Status:DEP ER Location: ED HPI History of [...] denies fevers, chills, hematemesis, and urinary symptoms. [facility] Medical History Osteoarthritis of left knee [...] story (Rexulti) (more content not included)... Normal [facility] Lipaseon 11-07-2024 Lipase [Catalytic activity/Vol] 35 U/L Normal 13-75 [facility] Comment on above: Result Comment: Lo hansen note: LIPASE revised reference range effective 22. New Lipase methodology. Expected to produce lower values than the previous assay method. NEW Reference Range: 13 - 75 U/L Performed By: #### L 500.4050, L501.2450, L100.0100 #### [facility] [address] [place], [address] Stool Occult Blood iFOBon STOB Negative Normal [facility] Comment on above: Performed By: #### L 501.9520, L500.2500, L503.7505, L100.0100 #### [facility] [address] [place], [address] Urinalysis, Completeon 11-07 BACTERIA 1+ /hpf Normal None Seen [facility] Comment on above: Order Comment: CLEAN CATCH Performed By: #### M 100.678 #### [facility] [address] [place], [address] CAST,HYALINE 0-5 SEEN Normal 0-5 [facility] Comment on above: Order Comment: CLEAN CATCH Performed By: #### M 100.678 #### [facility] [address] [place], [address] EPI,SQUAMOUS 5-10 SEEN Normal 5-10 [facility] Comment on above: Order Comment: CLEAN CATCH Performed By: #### M 100.678 #### [facility] [address] [place], [address] RBC 0-5 SEEN Normal 0-5 [facility] Comment on above: Order Comment: CLEAN CATCH Performed By: #### M 100.678 #### [facility] [address] [place], [address] WBC 0-5 SEEN Normal 0-5 [facility] Comment on above: Order Comment: CLEAN CATCH Performed By: #### M 100.678 #### [facility] [address] [place], [address] BILIRUBIN URINE Negative Normal Negative [facility] Comment on above: Order Comment: CLEAN CATCH Performed By: #### M 100.678 #### [facility] [address] [place], [address] Clarity (U) Clear Normal Clear [facility] Comment on above: Order Comment: CLEAN CATCH Performed By: #### M 100.678 #### [facility] [address] [place], [address] Color (U) Yellow Normal Yellow [facility] Comment on above: Order Comment: CLEAN CATCH Performed By: #### M 100.678 #### [facility] [address] [place], [address] GLUCOSE, UR Normal Normal Normal [facility] Comment on above: Order Comment: CLEAN CATCH Performed By: #### M 100.678 #### [facility] [address] [place], [address] KETONE UR Negative Normal Negative [facility] Comment on above: Order Comment: CLEAN CATCH Performed By: #### M 100.678 #### [facility] [address] [place], [address] LEUK ESTERASE Negative Normal Negative [facility] Comment on above: Order Comment: CLEAN CATCH Performed By: #### M 100.8 #### [facility] [address] [place], [address] Nitrite Ql (U) Negative Normal Negative [facility] Comment on above: Order Comment: CLEAN CATCH Performed By: #### M 100.8 #### [facility] [address] [place], [address] OCCULT BLOOD-UR Negative Normal Negative [facility] Comment on above: Order Comment: CLEAN CATCH Performed By: #### M 100.678 #### [facility] [address] [place], [address] pH UR 6.5 Normal 5.0 - 8.0 [facility] Comment on above: Order Comment: CLEAN CATCH Performed By: #### M 100.678 #### [facility] [address] [place], [address] PROT DIPSTX 15 mg/dl Abnormal Negative [facility] Comment on above: Order Comment: CLEAN CATCH Performed By: #### M 100.678 #### [facility] [address] [place], [address] SP.GR. DIPSTX 1.010 Normal 1.002-1.030 [facility] Comment on above: Order Comment: CLEAN CATCH Performed By: #### M 100.678 #### [facility] [address] [place], [place], [id number] UROBILI Normal Normal Normal [facility] Comment on above: Order Comment: CLEAN CATCH Performed By: #### M 100.678 #### [facility] [address] [place], [place], [address] Mucus Ql (Urine sed) 0 SEEN Normal [facility] Comment on above: Order Comment: CLEAN CATCH Performed By: #### M 100.678 #### [facility] [address] [place], [place], [address] MALBRon 10-26-2024 U Creatinine 203.9 mg/dL Normal [facility] Comment on above: Performed By: #### M ALBR ####[address] [place], [place] [address] U Microalb 59.3 mg/L Normal [facility] Comment on above: Performed By: #### M ALBR ####[address] [place], [place] [address] U Ratio Alb/Cre 29 mg/G Normal 0-30 [facility] Comment on above: Performed By: #### M ALBR ####[address] [place], [place] [address] Abdomen Limitedon 10-20-2024 Abdomen Limited [facility] Imaging Services [address] [place], [place] [address] Abdomen Limited MR#: [id number] Acct: [id number] Name: CHRISSY LAY Rep #: [id number] : 1965 F 59 From: Sam Cohen MD PCP: Chantale Ramsey NP-Braulio Status: REG CLI Study: Abdomen Limited Date of Exam: 10/20/24 Exam# [id number] Ordering Dr: Sandi Ramírez HEALTH TECHNICIAN-C PROCEDURE: ABDOMEN LIMITED (USABDL), 10/20/2024 REASON FOR [...] 2. Cholecystectomy without biliary dilatation. Reading Location: [facility] CC: NADIA Ramsey; NADIA Ramírez Survey Statistician: Signed Normal [facility] Comprehensive Metabolic Prof ilon 10-18-2024 Albumin [Mass/Vol] 4.2 g/dL Normal 3.5-5.0 [facility] Comment on above: Performed By: #### M 100.678 #### [facility] [address] [place], [address] Albumin/Globulin [Mass ratio] 1.5 {ratio} Normal 0.9-2.4 [facility] Comment on above: Performed By: #### M 100.678 #### [facility] [address] [place], [address] ALK PHOS 142 U/L High 35-104 [facility] Comment on above: Performed By: #### M 100.678 #### [facility] [address] [place], [address] ALT [Catalytic activity/Vol] 73 U/L High <=34 [facility] Comment on above: Performed By: #### M 100.678 #### [facility] [address] [place], [address] AST [Catalytic activity/Vol] 73 U/L High <=31 [facility] Comment on above: Performed By: #### M 100.678 #### [facility] [address] [place], [address] Bilirubin [Mass/Vol] 0.31 mg/dL Normal 0.00-1.30 [facility] Comment on above: Performed By: #### M 100.678 #### [facility] [address] [place], [address] BUN/CRE 16.4 RATIO Normal 10-20 [facility] Comment on above: Performed By: #### M 100.678 #### [facility] [address] [place], [address] Calcium [Mass/Vol] 9.5 mg/dL Normal 7.6-11.0 [facility] Comment on above: Performed By: #### M 100.678 #### [facility] [address] [place], [address] Chloride [Moles/Vol] 103 mmol/L Normal 98-108 [facility] Comment on above: Performed By: #### M 100.678 #### [facility] [address] [place], [address] CO2 [Moles/Vol] 23.2 mmol/L Normal 21.0-32.0 [facility] Comment on above: Performed By: #### M 100.678 #### [facility] [address] [place], [address] Creatinine [Mass/Vol] 0.70 mg/dL Normal 0.70-1.20 [facility] Comment on above: Performed By: #### M 100.678 #### [facility] [address] [place], [address] GAP 15 Normal 5-15 [facility] Comment on above: Performed By: #### M 100.678 #### [facility] [address] [place], [address] GFR/1.73 sq M.predicted among non-blacks MDRD (S/P/Bld) [Vol rate/Area] 100 mL/min/{1.73_m2} Normal >60 [facility] Comment on above: Result Comment: mL/m in/1.73m2 CKD-EPI Creatinine Equation (2020) Performed By: #### M 100.678 #### [facility] [address] [place], [address] Globulin (S) [Mass/Vol] 2.9 g/dL Normal 2.2-4.2 [facility] Comment on above: Performed By: #### M 100.678 #### [facility] [address] [place], [address] Glucose [Mass/Vol] 144 mg/dL High 70-99 [facility] Comment on above: Performed By: #### M 100.678 #### [facility] [address] [place], [address] Potassium [Moles/Vol] 4.0 mmol/L Normal 3.3-5.1 [facility] Comment on above: Performed By: #### M 100.678 #### [facility] [address] [place], [address] Sodium [Moles/Vol] 141 mmol/L Normal 133-145 [facility] Comment on above: Performed By: #### M 100.678 #### [facility] [address] [place], [address] T PROT 7.1 g/dL Normal 5.9-8.4 [facility] Comment on above: Performed By: #### M 100.678 #### [facility] [address] [place], [address] Urea nitrogen [Mass/Vol] 11 mg/dL Normal 4-19 [facility] Comment on above: Performed By: #### M 100.678 #### [facility] [address] [place], [address] Endocrinology Visit Reporton 10-18-2024 Endocrinology Visit Report [facility] [address] [place] [address] OFFICE VISIT Date of Service: 10/18/24 MR#: [id number] Acct: [id number] Name: CHRISSY LAY Rep #: [id number] : 1965 Provider: NADIA cutler Age/Sex: 59/F Location: [facility] Status: Signed Intake Vital Signs 07/19/24 10:27 [...] (From Augmentin) Allergy (Verified 10/18/24 10:52) Unknown Rmmjxhh-BCA-TiE Reductase Inhibitor (Utuwhvy-Cqk-Mdl Reductase Inhibitor) Allergy (Verified 10/18/24 10:52) Unknown [...] 55 mcg (more content not included)... Normal [facility] Lipid Profileon 10-18-2024 CHOL:HDL 4.28 Normal [facility] Comment on above: Performed By: #### M 100.678 #### [facility] [address] [place], [address] Cholesterol [Mass/Vol] 250 mg/dL High <=200 [facility] Comment on above: Result Comment: Chol esterol level, Desirable <200 mg/dL Borderline high cholesterol 200-239 mg/dL High cholesterol >=240 mg/dL Recommendations of the NCEP Adult Treatment Panel for the following risk-cutoff thresholds for the [place] population. Performed By: #### M 100.678 #### [facility] [address] [place], [address] Cholesterol in HDL [Mass/Vol] 58 mg/dL Normal [facility] Comment on above: Result Comment: Bárbara onal Cholesterol Education Program (NCEP) guidelines: <40 mg/dL: Low HDL-cholesterol (major risk factor for CHD) >= 60 mg/dL: High HDL-cholesterol (negative risk factor for CHD) HDL-cholesterol is affected by a number of factors, e.g. smoking, exercise, hormones, sex and age. Performed By: #### M 100.678 #### [facility] [address] [place], [address] Cholesterol in LDL [Mass/Vol] 139 mg/dL Normal [facility] Comment on above: Result Comment: Bord dktqzu=975-487 mg/dL Higher Ltcx=765 mg/dL or greater Performed By: #### M 100.678 #### [facility] [address] [place], [address] Cholesterol in VLDL [Mass/Vol] 52 mg/dL High 5-40 [facility] Comment on above: Performed By: #### M 100.678 #### [facility] [address] [place], [address] Triglyceride [Mass/Vol] 261 mg/dL High [facility] Comment on above: Result Comment: The drugs N-Acetylcysteine and Metamizole may falsely depress this assay. Normal range: <150 mg/dL Borderline High: 150-199 mg/dL High: 200-499 mg/dL Very High: >500 mg/dL Performed By: #### M 100.678 #### [facility] [address] [place], [address] MYCOon 08-15-2024 Mycoplasma IgG Positive Normal [facility] Comment on above: Result Comment: INTE RPRETATION OF MYCOPLASMA IgG BY EIA: Negative: No detectable M. pneumoniae IgG antibody. Positive: Mycoplasma pneumoniae IgG antibody Detected. Equivocal: Equivocal for IgG antibodies to Mycoplasma pneumoniae. Suggest repeat testing in 10-14 days. Performed By: #### M YCO ####[address] [address] .GFRon 08-14-2024 GFR 129 ml/min/1.73sqm Normal [facility] Comment on above: Result Comment: GFR Population [...] By: #### G FR, MG, BMP #### [address] [place], [place] [address] GFR Non- 107 ml/min/1.73sqm Normal [facility] Comment on above: Result Comment: GFR Population [...] 15 mL/min/1.73 square meters Performed By: #### Demetrio FR, MG, BMP #### [address] [address] BMPon 08-14-2024 BUN/Creatinine Ratio 19 ratio Normal 7-27 [facility] Comment on above: Performed By: #### G FR, MG, BMP #### [address] [address] BMPOrdered By: SYSTEM SYSTEM on 08-14-2024 Calcium [Mass/Vol] 9.1 mg/dL Normal 8.4-10.2 AO ADM SS Comment on above: Performed By: #### Demetrio FR, MG, BMP #### [place] [id number] Chloride [Moles/Vol] 104 mmol/L Normal 98-107 AO ADM SS Comment on above: Performed By: #### G FR, MG, BMP #### [place] [id number] CO2 [Moles/Vol] 24 mmol/L Normal 22-29 AO ADM SS Comment on above: Performed By: #### Demetrio FR, MG, BMP #### [address] [address] Creatinine [Mass/Vol] 0.58 mg/dL Normal 0.55-1.02 AO ADM SS Comment on above: Interpretive Data: T esting performed on Siemens Dimension EXL analyzer using a modified kinetic Melinda technique. Result Comment: Test ing performed on Siemens Dimension EXL analyzer using a modified kinetic Melinda technique. Performed By: #### Demetrio FR, MG, BMP #### [place] [id number] Electrolyte Balance 11.0 mEq/L Normal 4.0-15.0 AO AD M SS Comment on above: Performed By: #### Demetrio FR, MG, BMP #### [place] [id number] Glucose [Mass/Vol] 219 mg/dL High 70-105 AO ADM SS Comment on above: Performed By: #### G FR, MG, BMP #### [place] [address] [place], [place] [address] Potassium [Moles/Vol] 4.1 mmol/L Normal 3.5-5.1 AO ADM SS Comment on above: Performed By: #### G FR, MG, BMP #### [address] [address] Sodium [Moles/Vol] 139 mmol/L Normal 136-145 AO ADM SS Comment on above: Performed By: #### G FR, MG, BMP #### [address] [address] Urea nitrogen [Mass/Vol] 11 mg/dL Normal 7-18 AO ADM SS Comment on above: Performed By: #### G FR, MG, BMP #### [address] [address] LABORATORYOrdered By: Chelsie Gibson on 08-14-2024 Blood Glucose Testing Reason Routine (08/14/24 12:12 PM) [facility] Work Phone: Glucose [Mass/Vol] 273 mg/dL High 70 - 110 mg/dL [facility] Work Phone: Blood Glucose Testing Reason Routine (08/14/24 8:01 AM) [facility] Work Phone: Glucose [Mass/Vol] 248 mg/dL High 70 - 110 mg/dL [facility] Work Phone: LABORATORYOrdered By: Harika antoine on 08-14-2024 Blood Glucose Testing Reason Routine (08/14/24 11:24 AM) [facility] Work Phone: Glucose [Mass/Vol] 281 mg/dL High 70 - 110 mg/dL [facility] Work Phone: LABORATORYOrdered By: [employer] on 08-14-2024 GFR/1.73 sq M.predicted among [...] By: #### G FR, MG, BMP #### Marybeth [address] 08-14-2024 Mycoplasma IgM Negative Normal [facility] Comment on above: Result Comment: INTE RPRETATION OF MYCOPLASMA IgM: Negative: IgM to M. pneumoniae Absent, or at levels below the assay limit of detection. Positive: IgM to M. pneumoniae Present. Invalid: Test results are invalid due to invalid internal control. Assay was performed in duplicate. Repeat testing is suggested if clinically indicated. Performed By: #### M YCO ####[place] [address] .Auto Diffon 08-13-2024 Basophil, Absolute 0.0 10 3/mcL Normal 0.0-0.2 [facility] Comment on above: Performed By: #### M G, GFR, CBC, BMP, ANEU, ADIFF #### [address] [address] Basophils/100 WBC (Bld) 0.3 % Normal 0.0-2.5 [facility] Comment on above: Performed By: #### M G, GFR, CBC, BMP, ANEU, ADIFF #### [address] [address] Eosinophil, Absolute 0.3 10 3/mcL Normal 0.0-0.7 [facility] Comment on above: Performed By: #### M G, GFR, CBC, BMP, ANEU, ADIFF #### [address] [address] Eosinophils/100 WBC (Bld) 2.7 % Normal 0.0-7.0 [facility] Comment on above: Performed By: #### M G, GFR, CBC, BMP, ANEU, ADIFF #### [address] [address] Lymphocyte, Absolute 3.5 10 3/mcL Normal 0.9-4.3 [facility] Comment on above: Performed By: #### M G, GFR, CBC, BMP, ANEU, ADIFF #### [address] [address] Lymphocytes/100 WBC (Bld) 35.2 % Normal 20.0-40.0 [facility] Comment on above: Performed By: #### M G, GFR, CBC, BMP, ANEU, ADIFF #### [address] [address] Monocyte, Absolute 1.0 10 3/mcL Normal 0.1-1.4 [facility] Comment on above: Performed By: #### M G, GFR, CBC, BMP, ANEU, ADIFF #### [address] [address] Monocytes/100 WBC (Bld) 9.6 % Normal 2.0-13.0 [facility] Comment on above: Performed By: #### M G, GFR, CBC, BMP, ANEU, ADIFF #### [address] [address] Neutrophils/100 WBC (Bld) 52.2 % Normal 50.0-75.0 [facility] Comment on above: Performed By: #### M G, GFR, CBC, BMP, ANEU, ADIFF #### [address] [address] .GFRon 08-13-2024 GFR 102 ml/min/1.73sqm Normal [facility] Comment on above: Result Comment: GFR Population [...] M G, GFR, CBC, BMP, ANEU, ADIFF ####[address] [address] GFR Non- 85 ml/min/1.73sqm Normal [facility] Comment on above: Result Comment: GFR Population [...] M G, GFR, CBC, BMP, ANEU, ADIFF ####Marybethbobby [address] [place], [place] [address] .NEUABSon 08-13-2024 Neutrophil, Absolute 5.2 10 3/mcL Normal 2.3-8.1 [facility] Comment on above: Performed By: #### Jo G, GFR, CBC, BMP, ANEU, ADIFF ####[address] [place], [place] [address] BMPon 08-13-2024 Calcium [Mass/Vol] 8.6 mg/dL Normal 8.4-10.2 [facility] Comment on above: Performed By: #### M G, GFR, CBC, BMP, ANEU, ADIFF ####Marybeth [address] [place], [place] [address] BUN/Creatinine Ratio 18 ratio Normal 7-27 [facility] Comment on above: Performed By: #### M G, GFR, CBC, BMP, ANEU, ADIFF ####Marybeth [address] [place], [place] [address] Chloride [Moles/Vol] 106 mmol/L Normal 98-107 [facility] Comment on above: Performed By: #### M G, GFR, CBC, BMP, ANEU, ADIFF ####Marybeth Xtyph[address] [place], [place] [address] CO2 [Moles/Vol] 20 mmol/L Low 22-29 [facility] Comment on above: Performed By: #### M G, GFR, CBC, BMP, ANEU, ADIFF ####Marybeth [address] [place], [place] [address] Creatinine [Mass/Vol] 0.71 mg/dL Normal 0.55-1.02 [facility] Comment on above: Result Comment: Test ing performed on Siemens Dimension EXL analyzer using a modified kinetic Emlinda technique. Performed By: #### M G, GFR, CBC, BMP, ANEU, ADIFF ####Marybeth [address] [place], [place] [address] Electrolyte Balance 13.0 mEq/L Normal 4.0-15.0 [facility] Comment on above: Performed By: #### M G, GFR, CBC, BMP, ANEU, ADIFF ####Marybeth [address] [place], [place] [address] Glucose [Mass/Vol] 223 mg/dL High 70-105 [facility] Comment on above: Performed By: #### M G, GFR, CBC, BMP, ANEU, ADIFF ####Marybeth [address] [place], [place] [address] Potassium [Moles/Vol] 4.1 mmol/L Normal 3.5-5.1 [facility] Comment on above: Performed By: #### M G, GFR, CBC, BMP, ANEU, ADIFF ####Marybeth [address] [place], [place] [address] Sodium [Moles/Vol] 139 mmol/L Normal 136-145 [facility] Comment on above: Performed By: #### M G, GFR, CBC, BMP, ANEU, ADIFF ####Marybeth [address]sw[address] [place], [place] [address] Urea nitrogen [Mass/Vol] 13 mg/dL Normal 7-18 [facility] Comment on above: Performed By: #### M G, GFR, CBC, BMP, ANEU, ADIFF ####Marybeth [address] [place], [place] [address] CBCon 08-13-2024 Erythrocyte distribution width (RBC) [Ratio] 12.8 % Normal 11.5-15.5 [facility] Comment on above: Performed By: #### M G, GFR, CBC, BMP, ANEU, ADIFF #### [address] [address] Hematocrit (Bld) [Volume fraction] 44.4 % Normal 34.0-46.0 [facility] Comment on above: Performed By: #### M G, GFR, CBC, BMP, ANEU, ADIFF #### [address] [address] Hgb 14.8 G/dL Normal 12.0-16.0 [facility] Comment on above: Performed By: #### M G, GFR, CBC, BMP, ANEU, ADIFF #### [address] [address] MCH (RBC) [Entitic mass] 30.3 pg Normal 27.0-33.0 [facility] Comment on above: Performed By: #### M G, GFR, CBC, BMP, ANEU, ADIFF #### [address] [address] MCHC 33.4 G/dL Normal 32.0-36.0 [facility] Comment on above: Performed By: #### M G, GFR, CBC, BMP, ANEU, ADIFF #### [address] [address] MCV (RBC) [Entitic vol] 90.9 fL Normal 80.0-99.0 [facility] Comment on above: Performed By: #### M G, GFR, CBC, BMP, ANEU, ADIFF #### [address] [address] Platelet 279 10 3/mcL Normal 150-450 [facility] Comment on above: Performed By: #### M G, GFR, CBC, BMP, ANEU, ADIFF #### [address] [address] Platelet mean volume (Bld) [Entitic vol] 7.2 fL Normal 6.6-10.5 [facility] Comment on above: Performed By: #### M G, GFR, CBC, BMP, ANEU, ADIFF #### [place] [address] [place], [place] [address] RBC 4.89 10 6/mcL Normal 4.10-5.30 [facility] Comment on above: Performed By: #### M G, GFR, CBC, BMP, ANEU, ADIFF #### [place] [address] [place], [place] [address] WBC 10.0 10 3/mcL Normal 4.5-10.8 [facility] Comment on above: Performed By: #### M G, GFR, CBC, BMP, ANEU, ADIFF #### [place] [address] [place], [place] [address] LABORATORYOrdered By: SYSTEM SYSTEM on 08-13-2024 Basophils [...] 08-13-2024 Magnesium [Mass/Vol] 1.8 mg/dL Normal 1.8-2.4 [facility] Comment on above: Performed By: #### M G, GFR, CBC, BMP, ANEU, ADIFF ####[place] [place] [id number] RESCVIDon 08-13-2024 Adenovirus Not detected Normal Not Detected [facility] Comment on above: Performed By: #### R ESCVID #### [facility] [address] [place] [address] Bordetella Parapertussis Not detected Normal Not Detected [facility] Comment on above: Performed By: #### R ESCVID #### [facility] [address] [place] [address] Bordetella Pertussis Not detected Normal Not Detected [facility] Comment on above: Performed By: #### R ESCVID #### [facility] [address] [place] [address] Chlamydophila pneumoniae Not detected Normal Not Detected [facility] Comment on above: Performed By: #### R ESCVID #### [facility] [address] [place] [address] Coronavirus 229E (Not COVID-19) Not detected Normal Not Detected [facility] Comment on above: Performed By: #### R ESCVID #### [facility] [address] [place] [address] Coronavirus HKU1 (Not COVID-19) Not detected Normal Not Detected [facility] Comment on above: Performed By: #### R ESCVID #### [facility] [address] [place], [place] [address] Coronavirus NL63 (Not COVID-19) Not detected Normal Not Detected [facility] Comment on above: Performed By: #### R ESCVID #### [facility] [address] [place] [address] Coronavirus OC43 (Not COVID-19) Not detected Normal Not Detected [facility] Comment on above: Performed By: #### R ESCVID #### [facility] [address] [place] [address] Human Metapneumovirus Not detected Normal Not Detected [facility] Comment on above: Performed By: #### R ESCVID #### [facility] [address] [place] [address] Influenza A Not detected Normal Not Detected [facility] Comment on above: Performed By: #### R ESCVID #### [facility] [address] [place] [address] Influenza B Not detected Normal Not Detected [facility] Comment on above: Performed By: #### R ESCVID #### [facility] [address] [place] [address] Mycoplasma pneumoniae Not detected Normal Not Detected [facility] Comment on above: Performed By: #### R ESCVID #### [facility] [address] [place] [address] Parainfluenza 1 Not detected Normal Not Detected [facility] Comment on above: Performed By: #### R ESCVID #### [facility] [address] [place] [address] Parainfluenza 2 Not detected Normal Not Detected [facility] Comment on above: Performed By: #### R ESCVID #### [facility] [address] [place] [address] Parainfluenza 3 Not detected Normal Not Detected [facility] Comment on above: Performed By: #### R ESCVID #### [place] [address] Parainfluenza 4 Not detected Normal Not Detected [facility] Comment on above: Performed By: #### R ESCVID #### [place] [address] Respiratory Syncytial Virus Not detected Normal Not Detected [facility] Comment on above: Performed By: #### R ESCVID #### [place] [address] Rhinovirus/Enterovi kacy Detected Abnormal Not Detected [facility] Comment on above: Performed By: #### R ESCVID #### [facility] [address] [place] [address] SARS-CoV-2 (COVID-19) RNA JALIL+probe Ql (Unsp spec) Not detected Normal Not Detected [facility] Comment on above: Result Comment: This assay has been validated in the [facility] for use with nasopharyngeal specimens in [facility]. If a non-validated specimen or test [...] authorities. Performed By: #### R ESCVID #### [address] [address] .Auto Diffon 08-12-2024 Basophil, Absolute 0.0 10 3/mcL Normal 0.0-0.2 [facility] Comment on above: Performed By: #### A DIFF, LIP, LAC, CBC, TROPHS, CMP, GFR, ANEU, MDW ####[place] [address] [place], [place] [address] Basophils/100 WBC (Bld) 0.3 % Normal 0.0-2.5 [facility] Comment on above: Performed By: #### A DIFF, LIP, LAC, CBC, TROPHS, CMP, GFR, ANEU, MDW ####[place] [place], [place] [address] Eosinophil, Absolute 0.1 10 3/mcL Normal 0.0-0.7 [facility] Comment on above: Performed By: #### A DIFF, LIP, LAC, CBC, TROPHS, CMP, GFR, ANEU, MDW ####Marybeth [address] [place], [place] [address] Eosinophils/100 WBC (Bld) 0.8 % Normal 0.0-7.0 [facility] Comment on above: Performed By: #### A DIFF, LIP, LAC, CBC, TROPHS, CMP, GFR, ANEU, MDW ####Marybeth [address] [place], [place] [address] Lymphocyte, Absolute 3.1 10 3/mcL Normal 0.9-4.3 [facility] Comment on above: Performed By: #### A DIFF, LIP, LAC, CBC, TROPHS, CMP, GFR, ANEU, W ####Marybeth [address] [place], [place] [address] Lymphocytes/100 WBC (Bld) 19.5 % Low 20.0-40.0 [facility] Comment on above: Performed By: #### A DIFF, LIP, LAC, CBC, TROPHS, CMP, GFR, ANEU, W ####Marybeth [address] [place], [place] [address] Monocyte, Absolute 1.4 10 3/mcL Normal 0.1-1.4 [facility] Comment on above: Performed By: #### A DIFF, LIP, LAC, CBC, TROPHS, CMP, GFR, ANEU, MDW ####Marybeth [address] [place], [place] [address] Monocytes/100 WBC (Bld) 8.5 % Normal 2.0-13.0 [facility] Comment on above: Performed By: #### A DIFF, LIP, LAC, CBC, TROPHS, CMP, GFR, ANEU, MDW ####Marybeth [address] [place], [place] [address] Neutrophils/100 WBC (Bld) 70.9 % Normal 50.0-75.0 [facility] Comment on above: Performed By: #### A DIFF, LIP, LAC, CBC, TROPHS, CMP, GFR, ANEU, MDW ####Marybeth [address] [place], [place] [address] .GFRon 08-12-2024 GFR 101 ml/min/1.73sqm Normal [facility] Comment on above: Result Comment: GFR Population [...] LAC, CBC, TROPHS, CMP, GFR, ANEU, W ####Marybeth [address] [place], [place] [address] GFR Non- 83 ml/min/1.73sqm Normal [facility] Comment on above: Result Comment: GFR Population [...] DIFF, LIP, LAC, CBC, TROPHS, CMP, GFR, RUDI, W ####[address]bethbobby [address] [place], [place] [address] .Won 08-12-2024 Monocyte Distribution Width 18.91 Normal 0.00-20.00 [facility] Comment on above: Result Comment: For ED adult patients suspected of sepsis, MDW<=20.0 does not rule out sepsis or risk of sepsis Performed By: #### A DIFF, LIP, LAC, CBC, TROPHS, CMP, GFR, BIJAL GRIJALVA ####[place] [address] .NEUABSon 08-12-2024 Neutrophil, Absolute 11.4 10 3/mcL High 2.3-8.1 [facility] Comment on above: Performed By: #### A DIFF, LIP, LAC, CBC, TROPHS, CMP, GFR, BIJAL GRIJALVA ####[place] [address] .Urinalysis Microscopic (AO) on 08-12-2024 UA Mucous 3+ /hpf Normal [facility] Comment on above: Performed By: #### U Anayeli UAMICSORAYA ####[place] [address] [address] UA RBC None Seen Normal None Seen [facility] Comment on above: Performed By: #### U Anayeli UAMICSORAYA ####Marybeth [address] [address] UA Squam Epithelial 15-25 Abnormal None Seen [facility] Comment on above: Performed By: #### Henrik Guadalupe UAMICSORAYA ####[place] [address] UA WBC 0-5 Abnormal None Seen [facility] Comment on above: Performed By: #### Henrik Guadalupe UAMICSORAYA ####Marybeth [address] [address] CBCon 08-12-2024 Erythrocyte distribution width (RBC) [Ratio] 12.9 % Normal 11.5-15.5 [facility] Comment on above: Performed By: #### A DIFF, LIP, LAC, CBC, TROPHS, CMP, GFR, BIJAL GRIJALVA ####[place] [address] [address] Hematocrit (Bld) [Volume fraction] 50.0 % High 34.0-46.0 [facility] Comment on above: Performed By: #### A DIFF, LIP, LAC, CBC, TROPHS, CMP, GFR, ANEU, MDW ####Marybeth [address] [place], [place] [address] Hgb 17.1 G/dL High 12.0-16.0 [facility] Comment on above: Performed By: #### A DIFF, LIP, LAC, CBC, TROPHS, CMP, GFR, ANEUBIJAL ####[place] [address] [place], [place] [address] MCH (RBC) [Entitic mass] 30.3 pg Normal 27.0-33.0 [facility] Comment on above: Performed By: #### A DIFF, LIP, LAC, CBC, TROPHS, CMP, GFR, ANEUBIJAL ####Marybeth [address] [place], [place] [address] MCHC 34.1 G/dL Normal 32.0-36.0 [facility] Comment on above: Performed By: #### A DIFF, LIP, LAC, CBC, TROPHS, CMP, GFR, ANEUBIJAL ####Marybeth [address] [place], [place] [address] MCV (RBC) [Entitic vol] 88.8 fL Normal 80.0-99.0 [facility] Comment on above: Performed By: #### A DIFF, LIP, LAC, CBC, TROPHS, CMP, GFR, BIJAL GRIJALVA ####[place] [address] [place], [place] [address] Platelet 383 10 3/mcL Normal 150-450 [facility] Comment on above: Performed By: #### A DIFF, LIP, LAC, CBC, TROPHS, CMP, GFR, BIJAL GRIJALVA ####Marybeth [address] [place], [place] [address] Platelet mean volume (Bld) [Entitic vol] 7.4 fL Normal 6.6-10.5 [facility] Comment on above: Performed By: #### A DIFF, LIP, LAC, CBC, TROPHS, CMP, GFR, ANEUBIJAL ####[place] [address] [place], [place] [address] RBC 5.63 10 6/mcL High 4.10-5.30 [facility] Comment on above: Performed By: #### A DIFF, LIP, LAC, CBC, TROPHS, CMP, GFR, BIJAL GRIJALVA ####Marybeth [address] [place], [place] [address] WBC 16.0 10 3/mcL High 4.5-10.8 [facility] Comment on above: Performed By: #### A DIFF, LIP, LAC, CBC, TROPHS, CMP, GFR, BIJAL GRIJALVA ####Marybeth [address] [place], [place] [address] CMPon 08-12-2024 Albumin Level 3.6 G/dL Normal 3.5-5.0 [facility] Comment on above: Performed By: #### A DIFF, LIP, LAC, CBC, TROPHS, CMP, GFR, BIJAL GRIJALVA ####Marybeth [address] [place], [place] [address] Albumin/Globulin [Mass ratio] 0.9 {ratio} Low 1.1-2.5 [facility] Comment on above: Performed By: #### A DIFF, LIP, LAC, CBC, TROPHS, CMP, GFR, BIJAL GRIJALVA ####Marybeth [address] [place], [place] [address] ALP [Catalytic activity/Vol] 130 U/L Normal 40-135 [facility] Comment on above: Performed By: #### A DIFF, LIP, LAC, CBC, TROPHS, CMP, GFR, BIJAL GRIJALVA ####Marybeth [address] [place], [place] [address] ALT [Catalytic activity/Vol] 100 U/L High 14-59 [facility] Comment on above: Performed By: #### A DIFF, LIP, LAC, CBC, TROPHS, CMP, GFR, BIJAL GRIJALVA ####Marybeth [address] [place], [place] [address] AST [Catalytic activity/Vol] 74 U/L High 10-40 [facility] Comment on above: Performed By: #### A DIFF, LIP, LAC, CBC, TROPHS, CMP, GFR, BIJAL GRIJALVA ####[address] [address] Bili Total 0.9 mg/dL Normal 0.2-1.0 [facility] Comment on above: Result Comment: Use of this assay is not recommended for patients undergoing treatment with eltrombopag due to the potential for falsely elevated results. Performed By: #### A DIFF, LIP, LAC, CBC, TROPHS, CMP, GFR, ANEU, MDW ####[place] [address] [place] [address] BUN/Creatinine Ratio 28 ratio High 7-27 [facility] Comment on above: Performed By: #### A DIFF, LIP, LAC, CBC, TROPHS, CMP, GFR, ANEU, W ####[place] [address] [place] [address] Calcium [Mass/Vol] 10.1 mg/dL Normal 8.4-10.2 [facility] Comment on above: Performed By: #### A DIFF, LIP, LAC, CBC, TROPHS, CMP, GFR, ANEU, W ####[place] [address] [place], [place] [address] Chloride [Moles/Vol] 100 mmol/L Normal 98-107 [facility] Comment on above: Performed By: #### A DIFF, LIP, LAC, CBC, TROPHS, CMP, GFR, ANEU, W ####[place] [address] [place] [id number] CO2 [Moles/Vol] 17 mmol/L Low 22-29 [facility] Comment on above: Performed By: #### A DIFF, LIP, LAC, CBC, TROPHS, CMP, GFR, ANEU, MDW ####[place] [address] [place] [id number] Creatinine [Mass/Vol] 0.72 mg/dL Normal 0.55-1.02 [facility] Comment on above: Result Comment: Test ing performed on Siemens Dimension EXL analyzer using a modified kinetic Melinda technique. Performed By: #### A DIFF, LIP, LAC, CBC, TROPHS, CMP, GFR, ANEU, W ####[place] [address] [place], [place] [address] Electrolyte Balance 17.0 mEq/L High 4.0-15.0 [facility] Comment on above: Performed By: #### A DIFF, LIP, LAC, CBC, TROPHS, CMP, GFR, BIJAL GRIJALVA ####Marybeth [address] [place], [place] [address] Globulin 4.2 G/dL Normal [facility] Comment on above: Performed By: #### A DIFF, LIP, LAC, CBC, TROPHS, CMP, GFR, BIJAL GRIJALVA ####[address] [place], [place] [address] Glucose [Mass/Vol] 315 mg/dL High 70-105 [facility] Comment on above: Performed By: #### A DIFF, LIP, LAC, CBC, TROPHS, CMP, GFR, BIJAL GRIJALVA ####[id number] [place], [place] [address] Potassium [Moles/Vol] 5.0 mmol/L Normal 3.5-5.1 [facility] Comment on above: Performed By: #### A DIFF, LIP, LAC, CBC, TROPHS, CMP, GFR, BIJAL GRIJALVA ####Marybeth [address] [place], [place] [address] Sodium [Moles/Vol] 134 mmol/L Low 136-145 [facility] Comment on above: Performed By: #### A DIFF, LIP, LAC, CBC, TROPHS, CMP, GFR, BIJAL GRIJALVA ####Marybeth [address] [place], [place] [address] Total Protein 7.8 G/dL Normal 6.4-8.2 [facility] Comment on above: Performed By: #### A DIFF, LIP, LAC, CBC, TROPHS, CMP, GFR, BIJAL GRIJALVA ####Marybeth [address] [place], [place] [address] Urea nitrogen [Mass/Vol] 20 mg/dL High 7-18 [facility] Comment on above: Performed By: #### A DIFF, LIP, LAC, CBC, TROPHS, CMP, GFR, BIJAL GRIJALVA ####Marybeth [address] [place], [place] [address] CT ABD/PELVIS W/ IV CONTRAST ONLYon 08-12-2024 [...] 4:38:38 PM Ordering Provider: JERAD GARCIA Normal [facility] CVFLURAgustín 08-12-2024 FLU A PCR Negative Normal Negative [facility] Comment on above: Performed By: #### C VFLURV ####[address] [place], [place] [address] FLU B PCR Negative Normal Negative [facility] Comment on above: Performed By: #### C VFLURV ####[place] [place], [place] [address] RSV PCR Negative Normal Negative [facility] Comment on above: Performed By: #### C VFLURV ####[address] [place], [place] [address] SARS-CoV-2 (COVID-19) RNA JALIL+probe Ql (Unsp spec) Negative Normal Negative [facility] Comment on above: Result Comment: Resu lts [...] positive results. Performed By: #### C VFLURV ####[address] [place], [place] [address] LABORATORYOrdered By: Edgardo Garcia on 08-12-2024 M. pneumoniae IgM IA Ql (S) Negative 10 (08/12/24 10:52 PM) Normal Man Viro/Sero SS Comment on above: Interpretive [...] Site Condition: No complications (08/12/24 10:13 PM) [facility] Work Phone: Glucose [Mass/Vol] 207 mg/dL [facility] Work Phone: Time of Stated Blood Glucose [phone] [facility] Work Phone: LABORATORYOrdered By: SYSTEM SYSTEM on 08-12-2024 Lactate [Moles/Vol] 1.6 mmol/L Normal 0.4 - 2. 0 mmol/L AO ADM SS Troponin I.cardiac DL <= 0.01 ng/mL [Mass/Vol] 4 ng/L Normal 0 - 51 ng/L AO ADM SS Comment on above: Interpretive Data: H igh Sensitive Troponin I Reference Ranges: Female: 0-51 ng/L Male: 0-76 ng/L Testing performed on [employer] using a homogeneous sandwich chemiluminescent immunoassay based on [employer] technology. Lactate [Moles/Vol] 2.6 mmol/L High 0.4 [...] Detected AH Auto Viro/Sero SS B. parapertussis [id number] DNA JALIL+non-probe Ql (Nph) Not Detected *NA* [...] his assay has been validated in the [facility] for use with nasopharyngeal specimens in [facility]. If a non-validated specimen or test [...] Lactic Acid Lvl 1.6 mmol/L Normal 0.4-2.0 [facility] Comment on above: Order Comment: Order ed secondary to Lactic Acid result greater than or equal to 2.0 Performed By: #### L AC ####[address] [place], [place] [address] Lactic Acid Lvl 2.6 mmol/L High 0.4-2.0 [facility] Comment on above: Performed By: #### A DIFF, LIP, LAC, CBC, TROPHS, CMP, GFR, ANEU, MDW ####[address] [place], [place] [address] LIPon 08-12-2024 Lipase Level 41 U/L Normal 16-77 [facility] Comment on above: Performed By: #### A DIFF, LIP, LAC, CBC, TROPHS, CMP, GFR, ANEU, MDW ####[address] [place], [place] [address] No Panel Informationon 08-12 Microscopic examination of blood, culture Culture has been received in lab and is no growth to date. Routine cultures are held for 5 days. [facility] Work Phone: Legionella Urine Ag Presumptive negative for L. pneumophila serogroup 1 antigen in urine, suggesting no recent or current infection. Legionnaire's disease cannot be ruled out since other serogroups and species may also cause disease. [facility] Work Phone: Streptococcus Pneumoniae Urine Antig Presumptive negative for pneumococcal pneumonia, suggesting no current or recent pneumococcal infection. Infection due to Strep pneumoniae cannot be ruled out since the antigen present in the sample may be below the detection limit of the test. [facility] Work Phone: Comment on above: This test has not be en evaluated on patients taking antibiotics for greater than 24 hours or on patients who have recently completed an antibiotic regimen. The accuracy of this test has not been proven in young children. TROPHSon 08-12-2024 High Sensitivity Troponin I 4 ng/L Normal 0-51 [facility] Comment on above: Result Comment: High Sensitive Troponin I Reference Ranges: Female: 0-51 ng/L Male: 0-76 ng/L Testing performed on [employer] using a homogeneous sandwich chemiluminescent immunoassay based on Appl[employer] technology. Performed By: #### A DIFF, LIP, LAC, CBC, TROPHS, CMP, GFR, ANEU, MDW ####[address] [place] [address] UAon 08-12-2024 Color (U) Dark yellow Normal [facility] Comment on above: Performed By: #### U A, UAMICAO ####[address] [place] [address] Glucose (U) [Mass/Vol] 500 mg/dL Abnormal Negative [facility] Comment on above: Performed By: #### U A, UAMICAO ####[address] [place] [address] Ketones Ql (U) Trace Abnormal Negative [facility] Comment on above: Performed By: #### U A, UAMICAO ####[address] [place] [address] UA Appear Cloudy Abnormal Clear [facility] Comment on above: Performed By: #### U A, UAMICAO ####[address] [place] [address] UA Bili Small Abnormal Negative [facility] Comment on above: Result Comment: Sugg est correlation with serum bilirubin and clinical findings if medically necessary. Performed By: #### U A, UAMICAO ####[address] [place] [address] UA Blood Negative Normal Negative [facility] Comment on above: Performed By: #### U A, UAMICAO ####[address] [place] [address] UA Leuk Est Negative Normal Negative [facility] Comment on above: Performed By: #### U A, UAMICAO ####[address] [place] [address] UA Nitrite Negative Normal Negative [facility] Comment on above: Performed By: #### U A, UAMICAO ####[address] [place] [address] UA pH 6.0 Normal 5.0 - 8.0 [facility] Comment on above: Performed By: #### U A, UAMICAO ####[address] [place], [place] [address] UA Protein 100 mg/dL Abnormal Negative [facility] Comment on above: Performed By: #### U A UAMICAO ####[address] [place], [place] [address] UA Spec Grav >=1.030 Abnormal 1.015-1.025 [facility] Comment on above: Performed By: #### U A UAMICAO ####[address] [place], [place] [address] UA Specimen Type Clean Catch Normal [facility] Comment on above: Performed By: #### U A UAMICAO ####[address] [place], [place] [address] UA Urobilinogen 0.2 E.U./dL Normal 0.2-1.0 [facility] Comment on above: Performed By: #### U Anayeli UAMICAO ####[address] [place], [place] [address] XR CHEST 1 VIEWon 08-12-2024 XR CHEST [...] 08/12/2024 3:43:51 PM Ordering Provider: JERAD Nelson [facility] Urgent Care Visit Reporton 0 08-05-2024 Urgent Care Visit Report [facility] [address], [address] [place], [place] [id number] OFFICE VISIT Date of Service: 08/05/24 MR#: [id number] Acct: [id number] Name: CHRISSY LAY Rep #: [id number] [...] (From Augmentin) Allergy (Verified 08/05/24 17:35) Unknown Lmebgir-ZTI-AsG Reductase Inhibitor ([place]sc-Ged-Bta Reductase Inhibitor) Allergy (Verified 08/05/24 17:35) Unknown [...] Rx tabs (more content not included)... Normal [facility] Endocrinology Visit Reporton 07-19-2024 Endocrinology Visit Report [facility] [address] [place] [id number] OFFICE VISIT Date of Service: 07/19/24 MR#: [id number] Acct: [id number] Name: LEEANNACHRISSY HYMAN Louie Rep #: [id number] : 1965 Provider: NADIA cutler Age/Sex: 59/F Location: [facility] Status: Signed Intake Vital Signs 04/21/24 10:30 [...] (From Augmentin) Allergy (Verified 07/19/24 10:32) Unknown Azuxkgz-LHU-AmI Reductase Inhibitor (Vhguxsu-Kph-Fme Reductase Inhibitor) Allergy (Verified 07/19/24 10:32) Unknown [...] PO DAILY GERD 07/19/24 07/19/24 History release [facility] Medical History Osteoarthritis of left knee Left knee pain Osteoarthritis of right knee Contusion of right chest wall Contusion of right shoulder Contusion of forehead Hi (more content not included)... Normal [facility] Knee 4 or More Viewson 06-17 Knee 4 or More Views [facility] [address] [place] [address] Knee 4 or More Views MR#: [id number] Acct: [id number] Name: CHRISSY LAY Rep #: [id number] : 1965 F 59 From: Petros Reyes MD PCP: ANDIA Mcrae Status: DEP AMB Study: Knee 4 or More Views Date of Exam: 06/17/24 Exam# [id number] Ordering Dr: Karl Ashton MD :[id number] STUDY: X-RAY - LEFT KNEE REASON FOR [...] 15:01 EST Reading Location ID and State: [address] [place] [address] , Service support , CC: NADIA Ramsey; Dr. Karl Ashton MD Survey Statistician: Signed Normal [facility] Orthopedic Visit Reporton Orthopedic Visit Report [facility] [place] [address] OFFICE VISIT Date of Service: 06/17/24 MR#: [id number] Acct: [id number] Name: CHRISSY LAY Rep #: [id number] [...] (From Augmentin) Allergy (Verified 06/17/24 10:52) Unknown Tbecgpb-KLK-KrB Reductase Inhibitor (Olunwap-Dhc-Wys Reductase Inhibitor) Allergy (Verified 06/17/24 10:52) Unknown [...] BID #180 caps 04/26/24 06/17/24 Rx capsule [facility] Medical History (Updated 06/17/24 @ 11:35 by Karl Ashton MD) Osteoarthritis of left knee Left knee pain Osteoarthritis of right knee Contusion of right chest wall Contusion of right shoulder Contusion of forehead History of diabetes mellitus PTSD (post-traumatic stre (more content not included)... Normal [facility] BNP,B-Type NATRIURETIC PEPTI Irene 04-23-2024 Natriuretic peptide B (Bld) [Mass/Vol] 7.3 pg/mL Normal 0-100 [facility] Comment on above: Performed By: #### M 100.678 #### [facility] [address] [place], [address] Lipid Profileon 04-23-2024 Cholesterol [Mass/Vol] 265 mg/dL High 200 [facility] Comment on above: Result Comment: <200 mg/dL Desirable 200-240 mg/dL Borderline >240 mg/dL High Risk Performed By: #### M 100.678 #### [facility] [address] [place], [address] Cholesterol in HDL [Mass/Vol] 74 mg/dL Normal [facility] Comment on above: Result Comment: The drugs N-Acetylcysteine and Metamizole may falsely depress this assay. Reference Range HDL <40 mg/dL Low HDL Cholesterol HDL >or= 60 mg/dL High HDL Cholesterol Performed By: #### M 100.678 #### [facility] [address] [place], [address] Cholesterol in LDL [Mass/Vol] 142 mg/dL High 0-130 [facility] Comment on above: Performed By: #### M 100.678 #### [facility] [address] [place], [address] Cholesterol in VLDL [Mass/Vol] 49 mg/dL High 5-40 [facility] Comment on above: Performed By: #### M 100.678 #### [facility] [address] [place], [address] Triglyceride [Mass/Vol] 247 mg/dL High [facility] Comment on above: Result Comment: The drugs N-Acetylcysteine and Metamizole may falsely depress this assay. Serum Triglycerides Reference Interval Normal <150 mg/dL Borderline high 150 - 199 mg/dL High 200 - 499 mg/dL Very High > or = 500 mg/dL Performed By: #### M 100.678 #### [facility] [address] [place], [address] Microalb:Creat Ratio,Random URon 04-23-2024 Creatinine [Mass/Vol] 76.20 mg/dL Normal NO RANGE EST. [facility] Comment on above: Performed By: #### M 100.678 #### [facility] [address] [place], [address] MALB:CRE 58.5 mg/g CRE High <30 mg/g CRE [facility] Comment on above: Performed By: #### M 100.678 #### [facility] [address] [place], [address] MICROALBUMIN,UR 44.6 mg/L Normal NO RANGE EST. [facility] Comment on above: Performed By: #### M 100.678 #### [facility] [address] [place], [address] Vitamin D,25 Hydroxyon 04-23 Vitamin D 25-OH 29.7 ng/mL Normal [facility] Comment on above: Result Comment: Maryam min D 25(OH) Status Range Deficiency <20 ng/mL (50nmol/L) Insufficiency 20 - 30 ng/mL (50 - 75 nmol/L) Sufficiency 30 - 100 ng/mL (75 - 250 nmol/L) Toxicity >100 ng/mL (>250 nmol/L) Performed By: #### M 100.678 #### [facility] [address] [place], [address] Endocrinology Visit Reporton 04-21-2024 Endocrinology Visit Report [facility] 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 Normal [facility] BNP,B-Type NATRIURETIC PEPTI Irene 04-16-2024 Natriuretic peptide B (Bld) [Mass/Vol] 12.7 pg/mL Normal 0-100 [facility] Comment on above: Performed By: #### L 501.9520, L500.2500, L503.7505, L100.0100 #### [facility] [address] [place], [address] CBC-Complete Blood Cnt No [facility] 04-16-2024 Erythrocyte distribution width (RBC) [Ratio] 12.7 % Normal 11.6-14.6 [facility] Comment on above: Performed By: #### L 501.9520, L500.2500, L503.7505, L100.0100 #### [facility] [address] [place], [address] Hematocrit (Bld) [Volume fraction] 40.2 % Normal 37-47 [facility] Comment on above: Performed By: #### L 501.9520, L500.2500, L503.7505, L100.0100 #### [facility] [address] [place], [address] Hemoglobin (Bld) [Mass/Vol] 13.1 g/dL Normal 12.0-15.0 [facility] Comment on above: Performed By: #### L 501.9520, L500.2500, L503.7505, L100.0100 #### [facility] [address] [place], [address] MCH (RBC) [Entitic mass] 29.9 pg Normal 27.0-32.0 [facility] Comment on above: Performed By: #### L 501.9520, L500.2500, L503.7505, L100.0100 #### [facility] [address] [place], [address] MCHC (RBC) [Mass/Vol] 32.6 g/dL Normal 32-36 [facility] Comment on above: Performed By: #### L 501.9520, L500.2500, L503.7505, L100.0100 #### [facility] [address] [place], [address] MCV (RBC) [Entitic vol] 91.8 fL Normal 81-99 [facility] Comment on above: Performed By: #### L 501.9520, L500.2500, L503.7505, L100.0100 #### [facility] [address] [place], [address] Platelet mean volume (Bld) [Entitic vol] 8.7 fL Normal 6.2-12.0 [facility] Comment on above: Performed By: #### L 501.9520, L500.2500, L503.7505, L100.0100 #### [facility] [address] [place], [address] Platelets (Bld) [#/Vol] 390 10*3/uL Normal 150-450 [facility] Comment on above: Performed By: #### L 501.9520, L500.2500, L503.7505, L100.0100 #### [facility] [address] [place], [address] RBC (Bld) [#/Vol] 4.38 10*6/uL Normal 4.2-5.4 [facility] Comment on above: Performed By: #### L 501.9520, L500.2500, L503.7505, L100.0100 #### [facility] [address] [place], [address] RDW SD 42.6 fl Normal 35.1-43.9 [facility] Comment on above: Performed By: #### L 501.9520, L500.2500, L503.7505, L100.0100 #### [facility] [address] [place], [address] WBC (Bld) [#/Vol] 9.8 10*3/uL Normal 4.4-11.0 [facility] Comment on above: Performed By: #### L 501.9520, L500.2500, L503.7505, L100.0100 #### [facility] [address] [place], [address] Comprehensive Metabolic Prof ilon 04-16-2024 Albumin [Mass/Vol] 3.3 g/dL Normal 3.2-5.0 [facility] Comment on above: Performed By: #### L 501.9520, L500.2500, L503.7505, L100.0100 #### [facility] [address] [place], [address] Albumin/Globulin [Mass ratio] 0.9 {ratio} Normal 0.9-2.4 [facility] Comment on above: Performed By: #### L 501.9520, L500.2500, L503.7505, L100.0100 #### [facility] [address] [place], [address] ALK P 142 U/L High 45-117 [facility] Comment on above: Performed By: #### L 501.9520, L500.2500, L503.7505, L100.0100 #### [facility] [address] [place], [address] ALT [Catalytic activity/Vol] 42 U/L Normal 13-56 [facility] Comment on above: Performed By: #### L 501.9520, L500.2500, L503.7505, L100.0100 #### [facility] [address] [place], [address] AST [Catalytic activity/Vol] 37 U/L Normal 15-37 [facility] Comment on above: Performed By: #### L 501.9520, L500.2500, L503.7505, L100.0100 #### [facility] [address] [place], [address] Bilirubin [Mass/Vol] 0.20 mg/dL Normal 0.20-1.00 [facility] Comment on above: Result Comment: For patients on eltrombopag therapy, use of Dimension [place] TBIL is not recommended. Performed By: #### L 501.9520, L500.2500, L503.7505, L100.0100 #### [facility] [address] [place], [address] BUN/CRE 15.2 RATIO Normal 10-20 [facility] Comment on above: Performed By: #### L 501.9520, L500.2500, L503.7505, L100.0100 #### [facility] [address] [place], [address] CA,Total 8.8 mg/dL Normal 8.5-10.1 [facility] Comment on above: Performed By: #### L 501.9520, L500.2500, L503.7505, L100.0100 #### [facility] [address] [place], [address] Chloride [Moles/Vol] 108 mmol/L High 98-107 [facility] Comment on above: Performed By: #### L 501.9520, L500.2500, L503.7505, L100.0100 #### [facility] [address] [place], [address] CO2 [Moles/Vol] 23.0 mmol/L Normal 21.0-32.0 [facility] Comment on above: Performed By: #### L 501.9520, L500.2500, L503.7505, L100.0100 #### [facility] [address] [place], [address] Creatinine [Mass/Vol] 0.79 mg/dL Normal 0.55-1.02 [facility] Comment on above: Result Comment: The validity of the calculated GFR GFRAA in patients over 70 years has not been determined. Clinical correlation is essential. Performed By: #### L 501.9520, L500.2500, L503.7505, L100.0100 #### [facility] [address] [place], [address] EST GFR - AA 96 mL/min Normal >60 [facility] Comment on above: Result Comment: Afri can Danish GFR Calc Performed By: #### L 501.9520, L500.2500, L503.7505, L100.0100 #### [facility] [address] [place], [address] GAP 8 Normal 5-15 [facility] Comment on above: Performed By: #### L 501.9520, L500.2500, L503.7505, L100.0100 #### [facility] [address] [place], [address] GFR/1.73 sq M.predicted among non-blacks MDRD (S/P/Bld) [Vol rate/Area] 80 mL/min/{1.73_m2} Normal >60 [facility] Comment on above: Result Comment: Non- GFR Calc Performed By: #### L 501.9520, L500.2500, L503.7505, L100.0100 #### [facility] [address] [place], [address] Globulin (S) [Mass/Vol] 3.8 g/dL Normal 2.2-4.2 [facility] Comment on above: Performed By: #### L 501.9520, L500.2500, L503.7505, L100.0100 #### [facility] [address] [place], [address] Glucose [Mass/Vol] 223 mg/dL High 74-106 [facility] Comment on above: Result Comment: Gluc ose result greater than or equal to 200 mg/dL suggests DIABETES MELLITUS per A.D.A. criteria. Performed By: #### L 501.9520, L500.2500, L503.7505, L100.0100 #### [facility] [address] [place], [address] Potassium [Moles/Vol] 4.0 mmol/L Normal 3.5-5.1 [facility] Comment on above: Performed By: #### L 501.9520, L500.2500, L503.7505, L100.0100 #### [facility] [address] [place], [address] Sodium [Moles/Vol] 139 mmol/L Normal 136-145 [facility] Comment on above: Performed By: #### L 501.9520, L500.2500, L503.7505, L100.0100 #### [facility] [address] [place], [address] T PROT 7.1 g/dL Normal 6.4-8.2 [facility] Comment on above: Performed By: #### L 501.9520, L500.2500, L503.7505, L100.0100 #### [facility] [address] [place], [address] Urea nitrogen [Mass/Vol] 12 mg/dL Normal 7-18 [facility] Comment on above: Performed By: #### L 501.9520, L500.2500, L503.7505, L100.0100 #### [facility] [address] [place], [address] Hemoglobin A1con 04-16-2024 HbA1c (Bld) [Mass fraction] 8.7 % High 3.8-5.6 [facility] Comment on above: Result Comment: Norm al < 5.7 % Prediabetic 5.7 - 6.4 % Diabetic >or= 6.5 % Please note range changes. Performed By: #### L 501.9520, L500.2500, L503.7505, L100.0100 #### [facility] [address] [place], [address] Thyroid Stim Hormone (TSH)on 04-16-2024 TSH 1.520 uIU/mL Normal 0.358-3.740 [facility] Comment on above: Performed By: #### L 501.9520, L500.2500, L503.7505, L100.0100 #### [facility] [address] [place], [address] FT3on 03-10-2024 Free T3 [Mass/Vol] 2.81 pg/mL Normal 2.30-4.00 [facility] ([place]) Comment on above: Performed By: #### T SH, GFR, CMP, FT4 #### [address] [address] FT4on 03-10-2024 Free T4 [Mass/Vol] 0.74 ng/dL Low 0.76-1.46 [facility] ([place] Comment on above: Performed By: #### T SH, GFR, CMP, FT4 #### [address] [address] TSHon 03-10-2024 TSH Qn 2.95 m[IU]/L Normal 0.36-3.74 [facility] ([place] Comment on above: Performed By: #### T SH, GFR, CMP, FT4 #### [address] [address] aTPOon 03-10-2024 anti-Thyroid Peroxidase 57 units/ml Normal 0-60 [facility] ([place] Comment on above: Result Comment: No te - New Reference Range in effect 20 Performed By: #### T SH, GFR, CMP, FT4 #### [address] [address] No Panel Informationon 02-08 Culture Urine >100,000 cfu/ml Staphylococcus saprophyticus Routine sensitivity testing of urine isolates of S.saprophyticus is not advised because infections respond respond to concentrations achieved in urine of antimicrobial agents commonly used to treat acute, uncomplicated urinary tract infections (e.g., nitrofurantoin, fluoroquinolone, or trimethoprim +/- sulfamethoxazole). [facility] Work Phone: Staphylococcus saprophyticus Staphylococcus saprophyticus [facility] Work Phone: .GFRon 12-26-2023 GFR 75 ml/min/1.73sqm Normal [facility] ([place]) Comment on above: Result Comment: GFR [...] #### T SH, GFR, CMP, FT4 #### [place] [address] [place], [place] [address] GFR Non- 62 ml/min/1.73sqm Normal [facility] ([place] Comment on above: Result Comment: GFR Population [...] #### T SH, GFR, CMP, FT4 #### [address] [address] CMPon 12-26-2023 Albumin Level 3.4 G/dL Low 3.5-5.0 [facility] ([place] Comment on above: Performed By: #### T SH, GFR, CMP, FT4 #### [address] [address] Albumin/Globulin [Mass ratio] 0.9 {ratio} Low 1.1-2.5 [facility] ([place] Comment on above: Performed By: #### T SH, GFR, CMP, FT4 #### [address] [address] ALP [Catalytic activity/Vol] 87 U/L Normal 40-135 [facility] ([place] Comment on above: Performed By: #### T SH, GFR, CMP, FT4 #### [address] [address] ALT [Catalytic activity/Vol] 42 U/L Normal 14-59 [facility] ([place] Comment on above: Performed By: #### T SH, GFR, CMP, FT4 #### [address] [address] AST [Catalytic activity/Vol] 18 U/L Normal 10-40 [facility] ([place] Comment on above: Performed By: #### T SH, GFR, CMP, FT4 #### [address] [address] Bili Total 0.4 mg/dL Normal 0.2-1.0 [facility] ([place] Comment on above: Result Comment: Use of this assay is not recommended for patients undergoing treatment with eltrombopag due to the potential for falsely elevated results. Performed By: #### T SH, GFR, CMP, FT4 #### [address] [address] BUN/Creatinine Ratio 20 ratio Normal 7-27 [facility] ([place] Comment on above: Performed By: #### T SH, GFR, CMP, FT4 #### [address] [address] Calcium [Mass/Vol] 9.0 mg/dL Normal 8.4-10.2 [facility] ([place] Comment on above: Performed By: #### T SH, GFR, CMP, FT4 #### [address] [address] Chloride [Moles/Vol] 104 mmol/L Normal 98-107 [facility] ([place] Comment on above: Performed By: #### T SH, GFR, CMP, FT4 #### [address] [address] CO2 [Moles/Vol] 26 mmol/L Normal 22-29 [facility] ([place] Comment on above: Performed By: #### T SH, GFR, CMP, FT4 #### [address] [address] Creatinine [Mass/Vol] 0.93 mg/dL Normal 0.55-1.02 [facility] ([place] Comment on above: Performed By: #### T SH, GFR, CMP, FT4 #### [address] [address] Electrolyte Balance 13.0 mEq/L Normal 4.0-15.0 [facility] ([place]) Comment on above: Performed By: #### T SH, GFR, CMP, FT4 #### [address] [address] Globulin 3.6 G/dL Normal [facility] ([place] Comment on above: Performed By: #### T SH, GFR, CMP, FT4 #### [address] [address] Glucose [Mass/Vol] 246 mg/dL High 70-105 [facility] ([place] Comment on above: Performed By: #### T SH, GFR, CMP, FT4 #### [address] [address] Potassium [Moles/Vol] 4.4 mmol/L Normal 3.5-5.1 [facility] ([place] Comment on above: Performed By: #### T SH, GFR, CMP, FT4 #### [address] [address] Sodium [Moles/Vol] 143 mmol/L Normal 136-145 [facility] ([place]) Comment on above: Performed By: #### T SH, GFR, CMP, FT4 #### [address] [address] Total Protein 7.0 G/dL Normal 6.4-8.2 [facility] ([place] Comment on above: Performed By: #### T SH, GFR, CMP, FT4 #### [address] [address] Urea nitrogen [Mass/Vol] 19 mg/dL High 7-18 [facility] ([place] Comment on above: Performed By: #### T SH, GFR, CMP, FT4 #### Marybeth [address] [address] FT4on 12-26-2023 Free T4 [Mass/Vol] 0.74 ng/dL Low 0.76-1.46 [facility] ([place]) Comment on above: Performed By: #### T SH, GFR, CMP, FT4 #### [address] [address] LABORATORYOrdered By: SYSTEM SYSTEM on 12-26-2023 Albumin [...] 12-26-2023 TSH Qn 2.46 m[IU]/L Normal 0.36-3.74 [facility] ([place] Comment on above: Performed By: #### T SH, GFR, CMP, FT4 #### [address] [address] [address] SPINE CERVICAL W/O CONTRA STon 11-07-2023 [...] 11/07/2023 5:35:06 PM Ordering Provider: PIPER Nelson [facility] ([place]) [place] MAMMOGRAM SCREENING BILAT ERAL W/TOMOon 10-28-2023 MA MAMMOGRAM SCREENING BILATERAL W/KARI ORIGINAL FROM: [place] [address] PROCEDURE FOR: CHRISSY LAY [address] [address] Home: PID#: [id number] Exam#: [id number] : 1965 Age: 58 TO: CHANTALE RAMSEY APRN [address] [address] Fax: NO FAX EXAMINATION: SCREENING DIGITAL BILATERAL [...] a breast ultrasound could be performed. Rudy Wild risk calculations, generated with the history provided, [...] addition to annual mammographic screening per the [place] [employer]. BIRADS: MAMMOGRAM BI-RADS: 2: Benign finding RECALL: 1 year screening RECALL TYPE: mammo LETTER SENT: Normal BI-RADS 1 and 2 Interpreted by: Glenis Banuelos Preliminary Report By: Glenis Banuelos Electronically signed By Glenis Banuelos Dictated Date: 10/28/2023 3:42:07 PM Prelim Date: 10/28/2023 3:48:35 PM Sign Date: 10/28/2023 3:48:35 PM Ordering Provider: CHANTALE RAMSEY Juvenile Counselor: JANIYA ALARCON RT (R)(M) letter sent: Normal BI-RADS 1 and 2 Mammogram BI-RADS: 2 Benign Normal [facility] [place] FT4on 09-26-2023 Free T4 [Mass/Vol] 0.65 ng/dL Low 0.76-1.46 [facility] ([place]) Comment on above: Performed By: #### T SH, GFR, CMP, FT4 #### Marybeth [address] [address] [facility] 09-26-2023 U Creatinine 23.2 mg/dL Low 28.0-117.0 [facility] [place] Comment on above: Performed By: #### T SH, GFR, CMP, FT4 #### Marybeth [address] [address] U Microalb <130 Normal [facility] ([place] Comment on above: Performed By: #### T SH, GFR, CMP, FT4 #### [address] [address] U Ratio Alb/Cre Unable to Calculate Normal 0-30 [facility] ([place]) Comment on above: Result Comment: Unab le to calculate this test result accurately. Results used to calculate this test are outside the reportable range. Performed By: #### T SH, GFR, CMP, FT4 #### [address] [address] TSHon 09-26-2023 TSH Qn 2.24 m[IU]/L Normal 0.36-3.74 [facility] ([place]) Comment on above: Performed By: #### T SH, GFR, CMP, FT4 #### [address] [address] .Auto Diffon 09-25-2023 Basophil, Absolute 0.1 10 3/mcL Normal 0.0-0.2 [facility] ([place]) Comment on above: Performed By: #### T SH, GFR, CMP, FT4 #### [address] [address] Basophils/100 WBC (Bld) 1.0 % Normal 0.0-2.5 [facility] ([place] Comment on above: Performed By: #### T SH, GFR, CMP, FT4 #### [address] [address] Eosinophil, Absolute 0.3 10 3/mcL Normal 0.0-0.4 [facility] ([place] Comment on above: Performed By: #### T SH, GFR, CMP, FT4 #### [address] [address] Eosinophils/100 WBC (Bld) 4.5 % Normal 0.0-7.0 [facility] ([place] Comment on above: Performed By: #### T SH, GFR, CMP, FT4 #### [address] [place] [address] Lymphocyte, Absolute 2.5 10 3/mcL Normal 0.8-3.9 [facility] [place] Comment on above: Performed By: #### T SH, GFR, CMP, FT4 #### [address] [address] Lymphocytes/100 WBC (Bld) 44.2 % Normal 10.0-50.0 [facility] ([place] Comment on above: Performed By: #### T SH, GFR, CMP, FT4 #### [address] [address] Monocyte, Absolute 0.4 10 3/mcL Normal 0.2-1.0 [facility] ([place]) Comment on above: Performed By: #### T SH, GFR, CMP, FT4 #### [address] [address] Monocytes/100 WBC (Bld) 7.1 % Normal 1.7-13.0 [facility] ([place] Comment on above: Performed By: #### T SH, GFR, CMP, FT4 #### [address] [address] Neutrophils/100 WBC (Bld) 43.2 % Normal 37.0-80.0 [facility] ([place] Comment on above: Performed By: #### T SH, GFR, CMP, FT4 #### [address] [address] .GFRon 09-25-2023 GFR 110 ml/min/1.73sqm Normal [facility] ([place]) Comment on above: Result Comment: GFR [...] #### T SH, GFR, CMP, FT4 #### Marybeth [address] [address] GFR Non- 91 ml/min/1.73sqm Normal [facility] ([place] Comment on above: Result Comment: GFR Population [...] #### T SH, GFR, CMP, FT4 #### Marybeth [address] [address] .NEUABSon 09-25-2023 Neutrophil, Absolute 2.5 10 3/mcL Low 2.9-6.2 [facility] [place] Comment on above: Performed By: #### T SH, GFR, CMP, FT4 #### Marybeth [address] [address] A1Con 09-25-2023 HbA1c (Bld) [Mass fraction] 9.0 % High 4.3-6.4 [facility] ([place] Comment on above: Performed By: #### T SH, GFR, CMP, FT4 #### Marybeth [address] [address] CBCon 09-25-2023 Erythrocyte distribution width (RBC) [Ratio] 12.9 % Normal 11.5-14.5 [facility] [place] Comment on above: Performed By: #### T SH, GFR, CMP, FT4 #### [address] [address] Hematocrit (Bld) [Volume fraction] 41.1 % Normal 37.0-47.0 [facility] [place] Comment on above: Performed By: #### T SH, GFR, CMP, FT4 #### [address] [address] Hgb 13.9 G/dL Normal 12.0-16.0 [facility] [place] Comment on above: Performed By: #### T SH, GFR, CMP, FT4 #### [address] [address] MCH (RBC) [Entitic mass] 30.7 pg Normal 27.0-31.2 [facility] [place] Comment on above: Performed By: #### T SH, GFR, CMP, FT4 #### [address] [address] MCHC 34.0 G/dL Normal 33.0-37.0 [facility] [place] Comment on above: Performed By: #### T SH, GFR, CMP, FT4 #### [address] [address] MCV (RBC) [Entitic vol] 90.4 fL Normal 80.0-94.0 [facility] [place] Comment on above: Performed By: #### T SH, GFR, CMP, FT4 #### [address] [address] Platelet 366 10 3/mcL Normal 130-400 [facility] [place] Comment on above: Performed By: #### T SH, GFR, CMP, FT4 #### [address] [address] Platelet mean volume (Bld) [Entitic vol] 6.8 fL Low 7.4-10.4 [facility] [place] Comment on above: Performed By: #### T SH, GFR, CMP, FT4 #### [address] [address] RBC 4.54 10 6/mcL Normal 4.20-5.40 [facility] [place] Comment on above: Performed By: #### T SH, GFR, CMP, FT4 #### [address] [address] WBC 5.7 10 3/mcL Normal 4.6-10.8 [facility] [place] Comment on above: Performed By: #### T SH, GFR, CMP, FT4 #### [address] [address] CMPon 09-25-2023 Albumin Level 3.3 G/dL Low 3.5-5.0 [facility] [place] Comment on above: Performed By: #### T SH, GFR, CMP, FT4 #### [address] [address] Albumin/Globulin [Mass ratio] 0.9 {ratio} Low 1.1-2.5 [facility] [place] Comment on above: Performed By: #### T SH, GFR, CMP, FT4 #### [address] [address] ALP [Catalytic activity/Vol] 135 U/L Normal 40-135 [facility] [place] Comment on above: Performed By: #### T SH, GFR, CMP, FT4 #### [address] [address] ALT [Catalytic activity/Vol] 70 U/L High 14-59 [facility] [place] Comment on above: Performed By: #### T SH, GFR, CMP, FT4 #### [address] [address] AST [Catalytic activity/Vol] 56 U/L High 10-40 [facility] [place] Comment on above: Performed By: #### T SH, GFR, CMP, FT4 #### [address] [address] Bili Total 0.2 mg/dL Normal 0.2-1.0 [facility] ([place] Comment on above: Result Comment: Use of this assay is not recommended for patients undergoing treatment with eltrombopag due to the potential for falsely elevated results. Performed By: #### T SH, GFR, CMP, FT4 #### [place] [id number] BUN/Creatinine Ratio 19 ratio Normal 7-27 [facility] ([place] Comment on above: Performed By: #### T SH, GFR, CMP, FT4 #### [place] [id number] Calcium [Mass/Vol] 8.9 mg/dL Normal 8.4-10.2 [facility] ([place]) Comment on above: Performed By: #### T SH, GFR, CMP, FT4 #### [place] [id number] Chloride [Moles/Vol] 104 mmol/L Normal 98-107 [facility] ([place] Comment on above: Performed By: #### T SH, GFR, CMP, FT4 #### [place] [address] CO2 [Moles/Vol] 30 mmol/L High 22-29 [facility] ([place] Comment on above: Performed By: #### T SH, GFR, CMP, FT4 #### [place] [id number] Creatinine [Mass/Vol] 0.67 mg/dL Normal 0.55-1.02 [facility] ([place] Comment on above: Performed By: #### T SH, GFR, CMP, FT4 #### [address] [address] Electrolyte Balance 7.0 mEq/L Normal 4.0-15.0 [facility] ([place] Comment on above: Performed By: #### T SH, GFR, CMP, FT4 #### [place] [id number] Globulin 3.7 G/dL Normal [facility] ([place] Comment on above: Performed By: #### T SH, GFR, CMP, FT4 #### [place] [phone] Glucose [Mass/Vol] 146 mg/dL High 70-105 [facility] ([place] Comment on above: Performed By: #### T SH, GFR, CMP, FT4 #### [address] [address] Potassium [Moles/Vol] 4.5 mmol/L Normal 3.5-5.1 [facility] ([place] Comment on above: Performed By: #### T SH, GFR, CMP, FT4 #### [address] [address] Sodium [Moles/Vol] 141 mmol/L Normal 136-145 [facility] ([place] Comment on above: Performed By: #### T SH, GFR, CMP, FT4 #### [address] [address] Total Protein 7.0 G/dL Normal 6.4-8.2 [facility] [place] Comment on above: Performed By: #### T SH, GFR, CMP, FT4 #### [address] [address] Urea nitrogen [Mass/Vol] 13 mg/dL Normal 7-18 [facility] [place] Comment on above: Performed By: #### T SH, GFR, CMP, FT4 #### [address] [address] LIPIDon 09-25-2023 Cholesterol [Mass/Vol] 236 mg/dL High 0-200 [facility] ([place] Comment on above: Result Comment: Chol esterol Reference Interval: Less than 200 Desirable 200-239 Borderline high risk 240 and above High risk Performed By: #### T SH, GFR, CMP, FT4 #### [address] [address] Cholesterol in HDL [Mass/Vol] 60 mg/dL Normal 40-60 [facility] ([place] Comment on above: Performed By: #### T SH, GFR, CMP, FT4 #### [address] [address] Cholesterol in LDL [Mass/Vol] 107 mg/dL Normal 0-130 [facility] ([place] Comment on above: Performed By: #### T SH, GFR, CMP, FT4 #### Marybeth [place] [address] [place], [place] [address] Triglyceride [Mass/Vol] 346 mg/dL High 0-150 [facility] ([place] Comment on above: Result Comment: Trig lyceride Reference Interval: Less than 150 Normal 150-199 Borderline high risk 200-499 High risk 500 or higher Very high risk Performed By: #### T SH, GFR, CMP, FT4 #### Marybeth [place] [id number] [place], [place] [address] MGon 09-25-2023 Magnesium [Mass/Vol] 1.6 mg/dL Low 1.8-2.4 [facility] [place] Comment on above: Performed By: #### T SH, GFR, CMP, FT4 #### [place] [id number] [place], [place] [address] MRI BRAIN W/O CONTRASTon MRI BRAIN W/O [...] Date: 09/09/2023 4:41:57 PM Ordering Provider: CHANTALE Nelson [facility] ([place] .Urinalysis Microscopic (AO) on 07-25-2023 UA Bacteria 2+ /hpf Abnormal [facility] ([place] Comment on above: Performed By: #### U AMICAO, UA #### [place] [address] [place], [place] [address] UA Mucous 1+ /hpf Normal [facility] ([place] Comment on above: Performed By: #### U AMICAO, UA #### [place] [address] [place], [place] [address] UA RBC 0-5 Abnormal None Seen [facility] [place] Comment on above: Performed By: #### U AMICAO, UA #### [place] [address] [place], [place] [address] UA Squam Epithelial 0-5 Abnormal None Seen [facility] ([place] Comment on above: Performed By: #### U AMICAO, UA #### [place] [address] [place], [place] [address] UA WBC LOADED Abnormal None Seen [facility] [place] Comment on above: Performed By: #### U AMICAO, UA #### [place] [address] [place], [place] [address] LABORATORYOrdered By: Felicia Noe on 07-25-2023 Appearance [...] (e.g., nitrofurantoin, fluoroquinolone, or trimethoprim +/- sulfamethoxazole). [facility] Work Phone: Staphylococcus saprophyticus Staphylococcus saprophyticus [facility] Work Phone: UAon 07-25-2023 Color (U) Yellow Normal [facility] ([place]) Comment on above: Performed By: #### U AMICAO, UA #### [address] [address] Glucose (U) [Mass/Vol] Negative Normal Negative [facility] ([place]) Comment on above: Performed By: #### U AMICAO, UA #### [place] [address] [place], [place] [address] Ketones Ql (U) Trace Abnormal Negative [facility] ([place]) Comment on above: Performed By: #### U AMICAO, UA #### Marybeth [address] [address] UA Appear Slightly Cloudy Abnormal Clear [facility] [place] Comment on above: Performed By: #### U AMICAO, UA #### Marybeth [address] [address] UA Blood Trace Abnormal Negative [facility] ([place] Comment on above: Performed By: #### U AMICAO, UA #### Marybeth [address] [address] UA Leuk Est Trace Abnormal Negative [facility] [place] Comment on above: Performed By: #### U AMICAO, UA #### Marybeth [address] [address] UA Nitrite Negative Normal Negative [facility] ([place] Comment on above: Performed By: #### U AMICAO, UA #### Marybeth [place] [address] UA pH 7.0 Normal 5.0 - 8.0 [facility] ([place] Comment on above: Performed By: #### U AMICAO, UA #### [address] [address] UA Protein 100 mg/dL Abnormal Negative [facility] ([place] Comment on above: Performed By: #### U AMICAO, UA #### Marybeth [address] [address] UA Spec Grav 1.025 Normal 1.015-1.025 [facility] ([place] Comment on above: Performed By: #### U AMICAO, UA #### Marybeth [address] [address] UA Specimen Type Clean Catch Normal [facility] ([place] Comment on above: Performed By: #### U AMICAO, UA #### Marybeth [address] [address] UA Urobilinogen 0.2 E.U./dL Normal 0.2-1.0 [facility] ([place] Comment on above: Performed By: #### U AMICAO, UA #### [address] [address] Urobilinogen (U) [Mass/Vol] Negative Normal Negative [facility] ([place] Comment on above: Performed By: #### U NITO UA #### [address] [address] OVAPon 05-19-2023 Ova & Parasite exam See Below Normal [facility] ([place] Comment on above: Result Comment: OVA AND PARASITE EXAM No Parasites Seen SOURCE: FECES Performed By: [facility] [address] [place] [address] Collective Bargaining Specialist: Jan Spence III#: [id number] Performed By: #### T SH, GFR, CMP, FT4 #### [address] [address] .Auto Diffon 04-29-2023 Basophil, Absolute 0.1 10 3/mcL Normal 0.0-0.2 [facility] ([place]) Comment on above: Performed By: #### P BNP, BMP, ANEU, GFR, ADIFF, CBC #### [address] [address] Basophils/100 WBC (Bld) 0.6 % Normal 0.0-2.5 [facility] ([place] Comment on above: Performed By: #### P BNP, BMP, ANEU, GFR, ADIFF, CBC #### [address] [address] Eosinophil, Absolute 0.3 10 3/mcL Normal 0.0-0.4 [facility] ([place] Comment on above: Performed By: #### P BNP, BMP, ANEU, GFR, ADIFF, CBC #### [address] [address] Eosinophils/100 WBC (Bld) 2.7 % Normal 0.0-7.0 [facility] ([place] Comment on above: Performed By: #### P BNP, BMP, ANEU, GFR, ADIFF, CBC #### [address] [address] Lymphocyte, Absolute 2.7 10 3/mcL Normal 0.8-3.9 [facility] ([place] Comment on above: Performed By: #### P BNP, BMP, ANEU, GFR, ADIFF, CBC #### [address] [address] Lymphocytes/100 WBC (Bld) 29.5 % Normal 10.0-50.0 [facility] ([place] Comment on above: Performed By: #### P BNP, BMP, ANEU, GFR, ADIFF, CBC #### [address] [address] Monocyte, Absolute 0.7 10 3/mcL Normal 0.2-1.0 [facility] ([place] Comment on above: Performed By: #### P BNP, BMP, ANEU, GFR, ADIFF, CBC #### [address] [address] Monocytes/100 WBC (Bld) 7.2 % Normal 1.7-13.0 [facility] ([place] Comment on above: Performed By: #### P BNP, BMP, ANEU, GFR, ADIFF, CBC #### [address] [address] Neutrophils/100 WBC (Bld) 60.0 % Normal 37.0-80.0 [facility] [place] Comment on above: Performed By: #### P BNP, BMP, ANEU, GFR, ADIFF, CBC #### [address] [address] .GFRon 04-29-2023 GFR Non- 82 ml/min/1.73sqm Normal [facility] ([place] Comment on above: Result Comment: GFR Population [...] #### T SH, GFR, CMP, FT4 #### [address] [address] GFR 100 ml/min/1.73sqm Normal [facility] ([place] Comment on above: Result Comment: GFR Population [...] #### T SH, GFR, CMP, FT4 #### [address] [address] .NEUABSon 04-29-2023 Neutrophil, Absolute 5.6 10 3/mcL Normal 2.9-6.2 [facility] ([place] Comment on above: Performed By: #### P BNP, BMP, ANEU, GFR, ADIFF, CBC #### [address] [address] BMPon 04-29-2023 BUN/Creatinine Ratio 25 ratio Normal 7-27 [facility] ([place] Comment on above: Performed By: #### T SH, GFR, CMP, FT4 #### [address] [address] Calcium [Mass/Vol] 9.5 mg/dL Normal 8.4-10.2 [facility] ([place] Comment on above: Performed By: #### T SH, GFR, CMP, FT4 #### [address] [address] Chloride [Moles/Vol] 103 mmol/L Normal 98-107 [facility] ([place] Comment on above: Performed By: #### T SH, GFR, CMP, FT4 #### [address] [address] CO2 [Moles/Vol] 29 mmol/L Normal 22-29 [facility] [place] Comment on above: Performed By: #### T SH, GFR, CMP, FT4 #### [address] [address] Creatinine [Mass/Vol] 0.73 mg/dL Normal 0.55-1.02 [facility] ([place] Comment on above: Performed By: #### T SH, GFR, CMP, FT4 #### [address] [address] Electrolyte Balance 9.0 mEq/L Normal 4.0-15.0 [facility] ([place] Comment on above: Performed By: #### T SH, GFR, CMP, FT4 #### [address] [address] Glucose [Mass/Vol] 164 mg/dL High 70-105 [facility] ([place]) Comment on above: Performed By: #### T SH, GFR, CMP, FT4 #### [address] [address] Potassium [Moles/Vol] 4.6 mmol/L Normal 3.5-5.1 [facility] ([place] Comment on above: Performed By: #### T SH, GFR, CMP, FT4 #### [address] [address] Sodium [Moles/Vol] 141 mmol/L Normal 136-145 [facility] ([place] Comment on above: Performed By: #### T SH, GFR, CMP, FT4 #### [address] [address] Urea nitrogen [Mass/Vol] 18 mg/dL Normal 7-18 [facility] [place] Comment on above: Performed By: #### T SH, GFR, CMP, FT4 #### [address] [address] CBCon 04-29-2023 Erythrocyte distribution width (RBC) [Ratio] 13.3 % Normal 11.5-14.5 [facility] ([place] Comment on above: Performed By: #### P BNP, BMP, ANEU, GFR, ADIFF, CBC #### [place] [id number] Hematocrit (Bld) [Volume fraction] 37.3 % Normal 37.0-47.0 [facility] ([place] Comment on above: Performed By: #### P BNP, BMP, ANEU, GFR, ADIFF, CBC #### [address] [address] Hgb 12.6 G/dL Normal 12.0-16.0 [facility] ([place] Comment on above: Performed By: #### P BNP, BMP, ANEU, GFR, ADIFF, CBC #### [address] [address] MCH (RBC) [Entitic mass] 30.1 pg Normal 27.0-31.2 [facility]) Comment on above: Performed By: #### P BNP, BMP, ANEU, GFR, ADIFF, CBC #### [address] [address] MCHC 33.7 G/dL Normal 33.0-37.0 [facility] ([place] Comment on above: Performed By: #### P BNP, BMP, ANEU, GFR, ADIFF, CBC #### [address] [address] MCV (RBC) [Entitic vol] 89.3 fL Normal 80.0-94.0 [facility] ([place] Comment on above: Performed By: #### P BNP, BMP, ANEU, GFR, ADIFF, CBC #### [address] [address] Platelet 405 10 3/mcL High 130-400 [facility] ([place] Comment on above: Performed By: #### P BNP, BMP, ANEU, GFR, ADIFF, CBC #### [address] [address] Platelet mean volume (Bld) [Entitic vol] 6.8 fL Low 7.4-10.4 [facility] ([place] Comment on above: Performed By: #### P BNP, BMP, ANEU, GFR, ADIFF, CBC #### [place] [address] RBC 4.18 10 6/mcL Low 4.20-5.40 [facility] ([place] Comment on above: Performed By: #### P BNP, BMP, ANEU, GFR, ADIFF, CBC #### [place] [address] WBC 9.3 10 3/mcL Normal 4.6-10.8 [facility] ([place] Comment on above: Performed By: #### P BNP, BMP, ANEU, GFR, ADIFF, CBC #### [address] [address] PBNPon 04-29-2023 Natriuretic peptide B (Bld) [Mass/Vol] 73 pg/mL Normal 0-125 [facility] [place] Comment on above: Result Comment: NT-p roBNP results of less than 300 pg/mL effectively rules out acute congestive heart failure with 99% negative predictive value. Performed By: #### T SH, GFR, CMP, FT4 #### [address] [address] LABORATORYOrdered By: Edgardo Oliveros on 02-18-2023 HIV [...] 4:07 PM) Invalid Interpretation Code Non-Reactiv e AH Man Viro/Sero SS Comment on above: [...] width (RBC) [Ratio] 13.1 % Normal 11.5-15.0 [facility] Comment on above: Order Comment: Speci men Type: BLOOD SPECIMENOrdering Facility: [facility] Address: [address] [place] [address] Performed By: #### 5 8410-2 ####[facility] LABORATORYCLIA [id number] [place] [address] [place] Hematocrit (Bld) [Volume fraction] 34.4 % Low 36.0-46.0 [facility] Comment on above: Order Comment: Speci men Type: BLOOD SPECIMENOrdering Facility: [facility] Address: [address] [place] [address] Performed By: #### 5 8410-2 ####[facility] LABORATORYCLIA [id number] [place] [address] [place] Hemoglobin (Bld) [Mass/Vol] 11.1 g/dL Low 11.5-15.5 [facility] Comment on above: Order Comment: Speci men Type: BLOOD SPECIMENOrdering Facility: [facility] Address: [address] [place] [address] Performed By: #### 5 8410-2 ####[facility] [facility] LABORATORYCLIA [id number] [address] STATES [facility] MCH (RBC) [Entitic mass] 31.3 pg Normal 26.0-34.0 [facility] Comment on above: Order Comment: Speci men Type: BLOOD SPECIMENOrdering Facility: [facility] Address: [address] [place] [address] Performed By: #### 5 8410-2 ####[facility] LABORATORYCLIA [id number] [address] [place] MCHC (RBC) [Mass/Vol] 32.3 g/dL Normal 30.5-36.0 [facility] Comment on above: Order Comment: Speci men Type: BLOOD SPECIMENOrdering Facility: [facility] Address: [address] [place] [address] Performed By: #### 5 8410-2 ####[facility] LABORATORYCLIA [id number] [address] [place] MCV (RBC) [Entitic vol] 96.9 fL Normal 80.0-100.0 [facility] Comment on above: Order Comment: Speci men Type: BLOOD SPECIMENOrdering Facility: [facility] Address: [address] [place] [address] Performed By: #### 5 8410-2 ####[facility] LABORATORYCLIA [id number] [address] [place] Nucleated RBC (Bld) [#/Vol] 10*3/uL Normal <0.01 [facility] Comment on above: Order Comment: Speci men Type: BLOOD SPECIMENOrdering Facility: [facility] Address: [address] [place] [address] Performed By: #### 5 8410-2 ####[facility]ORATORYCLIA [id number] [address] [place] Platelet mean volume (Bld) [Entitic vol] 8.9 fL Low 9.0-12.7 [facility] Comment on above: Order Comment: Speci men Type: BLOOD SPECIMENOrdering Facility: [facility] Address: [address] [place] [address] Performed By: #### 5 8410-2 ####[facility] LABORATORYCLIA [id number] [address] OF [place] Platelets (Bld) [#/Vol] 248 10*3/uL Normal 150-400 [facility] Comment on above: Order Comment: Speci men Type: BLOOD SPECIMENOrdering Facility: [facility] Address: [address] [place] [address] Performed By: #### 5 8410-2 ####[facility] LABORATORYCLIA [id number] [place] [address] [place] RBC (Bld) [#/Vol] 3.55 10*6/uL Low 3.90-5.20 [facility] Comment on above: Order Comment: Speci men Type: BLOOD SPECIMENOrdering Facility: [facility] Address: [address] [place] [address] Performed By: #### 5 8410-2 ####[facility] LABORATORYCLIA [id number] [address] [place] WBC (Bld) [#/Vol] 6.35 10*3/uL Normal 3.70-11.00 [facility] Comment on above: Order Comment: Speci men Type: BLOOD SPECIMENOrdering Facility: [facility] Address: [address] [place] [address] Performed By: #### 5 8410-2 ####[facility] LABORATORYCLIA [id number] [address] OF [place] CNDSon 11-01-2022 CNDS HNO ID: [id number] Author: Sloan Mujica MD Service: General Internal [...] Hospital: FOLLOW-UP APPOINTMENTS ALREADY SCHEDULED WITH A [facility] PROVIDER No future appointments. DISCHARGE MEDICATION: Current [...] OROPHARYNX: M (more content not included)... Normal [facility] Comprehensive metabolic 2000 panelon 11-01-2022 Albumin [Mass/Vol] 3.0 g/dL Low 3.9-4.9 [facility] Comment on above: Order Comment: Speci men Type: BLOOD SPECIMENOrdering Facility: [facility] Address: [address] [address] Performed By: #### 2 4323-8 ####[facility]ORATORYCLIA [id number] [place] [address] [place] ALP [Catalytic activity/Vol] 73 U/L Normal 34-123 [facility] Comment on above: Order Comment: Speci men Type: BLOOD SPECIMENOrdering Facility: [facility] Address: [address] [address] Performed By: #### 2 4323-8 ####[facility]ORATORYCLIA [id number] [place] [address] [place] ALT [Catalytic activity/Vol] 33 U/L Normal 7-38 [facility] Comment on above: Order Comment: Speci men Type: BLOOD SPECIMENOrdering Facility: [facility] Address: [address] [place] [address] Performed By: #### 2 4323-8 ####[facility]ORATORYCLIA [id number] [place] [address] [place] Anion gap [Moles/Vol] 12 mmol/L Normal 9-18 [facility] Comment on above: Order Comment: Speci men Type: BLOOD SPECIMENOrdering Facility: [facility] Address: [address] [address] Performed By: #### 2 4323-8 ####[facility]ATORYCLIA [id number] [place] [address] [place] AST [Catalytic activity/Vol] 33 U/L Normal 13-35 [facility] Comment on above: Order Comment: Speci men Type: BLOOD SPECIMENOrdering Facility: [facility] Address: [address] [address] Performed By: #### 2 4323-8 ####[facility]ORATORYCLIA [id number] [place] [address] [place] Bilirubin [Mass/Vol] 0.2 mg/dL Normal 0.2-1.3 [facility] Comment on above: Order Comment: Speci men Type: BLOOD SPECIMENOrdering Facility: [facility] Address: [address] [place] [address] Performed By: #### 2 4323-8 ####[facility]ORATORYCLIA [id number] [place] [address] [place] Calcium [Mass/Vol] 8.3 mg/dL Low 8.5-10.2 [facility] Comment on above: Order Comment: Speci men Type: BLOOD SPECIMENOrdering Facility: [facility] Address: [address] [place] [address] Performed By: #### 2 4323-8 ####[facility]ORATORYCLIA [id number] [place] [address] [place] Chloride [Moles/Vol] 110 mmol/L High 97-105 [facility] Comment on above: Order Comment: Speci men Type: BLOOD SPECIMENOrdering Facility: [facility] Address: [address] [place] [address] Performed By: #### 2 4323-8 ####[facility]ORATORYCLIA [id number] [place] [address] [place] CO2 [Moles/Vol] 19 mmol/L Low 22-30 [facility] Comment on above: Order Comment: Speci men Type: BLOOD SPECIMENOrdering Facility: [facility] Address: [address] [place] [address] Performed By: #### 2 4323-8 ####[facility]ORATORYCLIA [id number] [place] [address] [place] Creatinine [Mass/Vol] 0.83 mg/dL Normal 0.58-0.96 [facility] Comment on above: Order Comment: Van mora Type: BLOOD SPECIMENOrdering Facility: [facility] Address: [address] [place] [address] Performed By: #### 2 4323-8 ####[facility] LABORATORYCLIA [id number] [place] [address] [place] ESTIMATED GLOMERULAR FILTRATION RATE 83 mL/min/1.73m??? Normal >=60 [facility] Comment on above: Order Comment: Van abby Type: BLOOD SPECIMENOrdering Facility: [facility] Address: [address] [place] [address] Result Comment: Mei mated Glomerular Filtration Rate [...] actual GFR. Performed By: #### 2 4323-8 ####[facility] LABORATORYCLIA [id number] [place] [address] [place] Glucose [Mass/Vol] 117 mg/dL High 74-99 [facility] Comment on above: Order Comment: Josechar mora Type: BLOOD SPECIMENOrdering Facility: [facility] Address: [address] [address] Result Comment: The [place] Diabetes Association (ADA) provides guidance for cutoff [...] Standards of Medical Care in Diabetes 2016, [place] Diabetes Association. Diabetes Care. 2016.39(Suppl 1). Performed By: #### 2 4323-8 ####[facility]ORATORYCLIA [id number] [place] [address] [place] Potassium [Moles/Vol] 3.3 mmol/L Low 3.7-5.1 [facility] Comment on above: Order Comment: Speci men Type: BLOOD SPECIMENOrdering Facility: [facility] Address: [address] [place] [address] Performed By: #### 2 4323-8 ####[facility]ORATORYCLIA [id number] [place] [address] [place] Protein [Mass/Vol] 5.4 g/dL Low 6.3-8.0 [facility] Comment on above: Order Comment: Speci men Type: BLOOD SPECIMENOrdering Facility: [facility] Address: [address] [place] [address] Performed By: #### 2 4323-8 ####[facility]ORATORYCLIA [id number] [place] [address] [place] Sodium [Moles/Vol] 141 mmol/L Normal 136-144 [facility] Comment on above: Order Comment: Speci men Type: BLOOD SPECIMENOrdering Facility: [facility] Address: [address] [place] [address] Performed By: #### 2 4323-8 ####[facility]ORATORYCLIA [id number] [place] [address] [place] Urea nitrogen [Mass/Vol] 11 mg/dL Normal 7-21 [facility] Comment on above: Order Comment: Speci men Type: BLOOD SPECIMENOrdering Facility: [facility] Address: [address] [place] [address] Performed By: #### 2 4323-8 ####[facility]ORATORYCLIA [id number] [place] [address] [place] POTASSIUM BLDon 11-01-2022 Potassium [Moles/Vol] 3.8 mmol/L Normal 3.7-5.1 [facility] Comment on above: Order Comment: Speci men Type: BLOOD SPECIMENOrdering Facility: [facility] Address: [address] [id number] Performed By: #### K 1 ####[facility] LABORATORYCLIA [id number] [place] [address] [facility] OF [place] ALLIED HEALTHon 10-31-2022 ALLIED HEALTH HNO ID: [id number] Author: Glen Downs Service: ? Author Type: Aluminizer Type: Allied Health Filed: 10/31/2022 6:17 AM [...] Glen Downs October 31, 2022 6:17 AM [facility] CASE MGT INIT ASSESon 2022 CASE MGT INIT [facility] HNO ID: [id number] Author: Shama Carnes RN Service: ? Author Type: Registered Nurse Type: Care Mgt Initial Assessment Filed: 10/31/2022 3:31 PM Note Text: CARE MANAGEMENT: ASSESSMENT AND DISCHARGE PLAN SERVICE DATE: October 31, 2022 SERVICE TIME: 3:23 PM PRIMARY CARE PHYSICIAN: CHANTALE RAMSEY APRN.ROTARY DRILL RIG OPERATOR Phone: None Primary Contact: Extended Emergency Contact Information Primary Emergency Contact: Stanislav Lay Address: [address] [place] [address] Mobile Relation: Ex Spouse ADMISSION STATUS: Inpatient Insurance Provider: [employer] NEEDS PRIOR TO DISCHARGE POTENTIAL TRANSITION [...] 31, 2022 TIME: 3:23 PM CONTACT #: [phone] Normal [facility] CBC panel Auto (Bld)on 10-31 Erythrocyte distribution width (RBC) [Ratio] 12.7 % Normal 11.5-15.0 [facility] Comment on above: Order Comment: Van mora Type: BLOOD SPECIMEN [facility]: [facility] Address: [address] [place] [address] Performed By: #### 5 8410-2 #### [facility] CLIA [id number] [address] [place] [address] [place] Hematocrit (Bld) [Volume fraction] 36.9 % Normal 36.0-46.0 [facility] Comment on above: Order Comment: Van mora Type: BLOOD SPECIMEN [facility]ing [facility]: [facility] Address: [address] [place] [address] Performed By: #### 5 8410-2 #### [facility] CLIA [id number] [address] [place] [address] [place] Hemoglobin (Bld) [Mass/Vol] 12.4 g/dL Normal 11.5-15.5 [facility] Comment on above: Order Comment: Speci men Type: BLOOD SPECIMEN [facility]ing [facility]: [facility] Address: [address] [place] [address] Performed By: #### 5 8410-2 #### [facility] CLIA [id number] [address] [place] [address] [place] MCH (RBC) [Entitic mass] 31.9 pg Normal 26.0-34.0 [facility] Comment on above: Order Comment: Speci men Type: BLOOD SPECIMEN [facility]ing [facility]: [facility] Address: [address] [place] [address] Performed By: #### 5 8410-2 #### [facility] CLIA [id number] [address] [place] [address] [place] MCHC (RBC) [Mass/Vol] 33.6 g/dL Normal 30.5-36.0 [facility] Comment on above: Order Comment: Speci men Type: BLOOD SPECIMEN [facility]ing [facility]: [facility] Address: [address] [place] [address] Performed By: #### 5 8410-2 #### [facility] CLIA [id number] [address] [place] [address] [place] MCV (RBC) [Entitic vol] 94.9 fL Normal 80.0-100.0 [facility] Comment on above: Order Comment: Speci men Type: BLOOD SPECIMEN [facility]ing [facility]: [facility] Address: [address] [place] [address] Performed By: #### 5 8410-2 #### [facility] CLIA [id number] [address] [place] [address] [place] Nucleated RBC (Bld) [#/Vol] 10*3/uL Normal <0.01 [facility] Comment on above: Order Comment: Speci men Type: BLOOD SPECIMEN [facility]ing [facility]: [facility] Address: [address] [place] [address] Performed By: #### 5 8410-2 #### [facility] CLIA [id number] [address] [place] [address] [place] Platelet mean volume (Bld) [Entitic vol] 9.0 fL Normal 9.0-12.7 [facility] Comment on above: Order Comment: Speci men Type: BLOOD SPECIMEN [facility]ing [facility]: [facility] Address: [address] [place] [address] Performed By: #### 5 8410-2 #### [facility] CLIA [id number] [address] [place] [address] [place] Platelets (Bld) [#/Vol] 289 10*3/uL Normal 150-400 [facility] Comment on above: Order Comment: Speci men Type: BLOOD SPECIMEN [facility]ing [facility]: [facility] Address: [address] [place] [address] Performed By: #### 5 8410-2 #### [facility] CLIA [id number] [address] [place] [address] [place] RBC (Bld) [#/Vol] 3.89 10*6/uL Low 3.90-5.20 [facility] Comment on above: Order Comment: Speci men Type: BLOOD SPECIMEN [facility]ing [facility]: [facility] Address: [address] [place] [address] Performed By: #### 5 8410-2 #### [facility] CLIA [id number] [address] [place] [address] [place] WBC (Bld) [#/Vol] 7.66 10*3/uL Normal 3.70-11.00 [facility] Comment on above: Order Comment: Speci men Type: BLOOD SPECIMEN [facility]ing [facility]: [facility] Address: [address] [place] [address] Performed By: #### 5 8410-2 #### [facility] CLIA [id number] [address] [place] [address] [place] CONSULTon 10-31-2022 CONSULT HNO ID: [id number] Author: Dana Marvin APRN.ROTARY DRILL RIG OPERATOR Service: Electrophysiology Author Type: Nurse Practitioner Type: Consults Filed: 10/31/2022 4:24 PM Note Text: Attestation signed by Alexandrea Holliday MD at 11/01/2022 8:26 AM Attending Note [facility] STAFF PHYSICIAN NOTE OF PERSONAL INVOLVEMENT IN [...] [facility] CARDIOVASCULAR MEDICINE CONSULT NOTE [facility] Chrissy Lay [id number] PRIMARY SERVICE: General Internal Medicine - Dr. [...] was called and she was taken to [place] ED and subsequently transferred to [place] for further management. Pt states having similar [...] week, she has been commuting daily between [place] and [place] for her job. She notes having at [...] - ri (more content not included)... Normal [facility] CT ABD/PEL WO IVCONon 2022 CT ABD/PEL WO IVCON * * *Final Report* * * DATE OF EXAM: Oct 31 2022 6:16AM [facility] 0531 - CT ABD/PEL WO IVCON / [...] Lower thorax: No consolidation. No pleural effusion. Envelope Stamping Machine Operator (topogram) images: No additional findings. IMPRESSION: Hepatic steatosis. No acute abnormality identified in the abdomen or pelvis. Details and incidental findings as above. Transcribed Using Voice Recognition Transcribe Date/Time: Oct 31 2022 6:27A Dictated by: ANDRY DELGADO MD This examination was interpreted and the report reviewed and electronically signed by: ANDRY DELGADO MD on Oct 31 2022 6:37AM EST [id number] Normal [facility] Comprehensive metabolic 2000 panelon 10-31-2022 Albumin [Mass/Vol] 3.5 g/dL Low 3.9-4.9 [facility] Comment on above: Order Comment: Speci men Type: BLOOD SPECIMENOrdering Facility: [facility] Address: [address] [place] [address] Performed By: #### 2 4323-03, ####[facility] LABORATORYCLIA [id number] [place] [address] [place] ALP [Catalytic activity/Vol] 83 U/L Normal 34-123 [facility] Comment on above: Order Comment: Speci men Type: BLOOD SPECIMENOrdering Facility: [facility] Address: [address] [place] [address] Performed By: #### 2 4323-03, ####[facility] LABORATORYCLIA [id number] [place] [address] [place] ALT [Catalytic activity/Vol] 35 U/L Normal 7-38 [facility] Comment on above: Order Comment: Speci men Type: BLOOD SPECIMENOrdering Facility: [facility] Address: [address] [address] Performed By: #### 2 43210-09, ####[facility]ORATORYCLIA [id number] [place] [address] [place] Anion gap [Moles/Vol] 13 mmol/L Normal 9-18 [facility] Comment on above: Order Comment: Speci men Type: BLOOD SPECIMENOrdering Facility: [facility] Address: [address] [address] Performed By: #### 2 4328, ####[facility]ORATORYCLIA [id number] [place] [address] [place] AST [Catalytic activity/Vol] 27 U/L Normal 13-35 [facility] Comment on above: Order Comment: Speci men Type: BLOOD SPECIMENOrdering Facility: [facility] Address: [address] [address] Performed By: #### 2 8, ####[facility]ORATORYCLIA [id number] [place] [address] [place] Bilirubin [Mass/Vol] 0.5 mg/dL Normal 0.2-1.3 [facility] Comment on above: Order Comment: Speci men Type: BLOOD SPECIMENOrdering Facility: [facility] Address: [address] [address] Performed By: #### 2 43210-09, ####[facility]ORATORYCLIA [id number] [place] [address] [place] Calcium [Mass/Vol] 8.8 mg/dL Normal 8.5-10.2 [facility] Comment on above: Order Comment: Speci men Type: BLOOD SPECIMENOrdering Facility: [facility] Address: [address] [address] Performed By: #### 2 4328, ####[facility]ORATORYCLIA [id number] [place] [address] [place] Chloride [Moles/Vol] 104 mmol/L Normal 97-105 [facility] Comment on above: Order Comment: Speci men Type: BLOOD SPECIMENOrdering Facility: [facility] Address: [address] [address] Performed By: #### 2 8, ####[facility] LABORATORYCLIA [id number] [place] [address] [place] CO2 [Moles/Vol] 19 mmol/L Low 22-30 [facility] Comment on above: Order Comment: Speci men Type: BLOOD SPECIMENOrdering Facility: [facility] Address: [address] [place] [address] Performed By: #### 2 4323-8, ####[facility] LABORATORYCLIA [id number] [place] [address] [place] Creatinine [Mass/Vol] 1.07 mg/dL High 0.58-0.96 [facility] Comment on above: Order Comment: Speci men Type: BLOOD SPECIMENOrdering Facility: [facility] Address: [address] [place] [address] Performed By: #### 2 4323-8, ####[facility] LABORATORYCLIA [id number] [place] [address] [place] ESTIMATED GLOMERULAR FILTRATION RATE 61 mL/min/1.73m??? Normal >=60 [facility] Comment on above: Order Comment: Speci men Type: BLOOD SPECIMENOrdering Facility: [facility] Address: [address] [place] [address] Result Comment: Mei mated Glomerular Filtration Rate [...] reflect actual GFR. Performed By: #### 2 4323-8, ####[facility]ORATORYCLIA [id number] [place] [address] [place] Glucose [Mass/Vol] 126 mg/dL High 74-99 [facility] Comment on above: Order Comment: Speci men Type: BLOOD SPECIMENOrdering Facility: [facility] Address: [address] [place] [address] Result Comment: The [place] Diabetes Association (ADA) provides guidance for cutoff [...] Standards of Medical Care in Diabetes 2016, [place] Diabetes Association. Diabetes Care. 2016.39(Suppl 1). Performed By: #### 2 4323-8, ####[facility] LABORATORYCLIA [id number] [place] [address] [place] Potassium [Moles/Vol] 3.2 mmol/L Low 3.7-5.1 [facility] Comment on above: Order Comment: Speci men Type: BLOOD SPECIMENOrdering Facility: [facility] Address: [address] Performed By: #### 2 43210-09, ####[facility] LABORATORYCLIA [id number] [place] [address] [place] Protein [Mass/Vol] 5.7 g/dL Low 6.3-8.0 [facility] Comment on above: Order Comment: Speci men Type: BLOOD SPECIMENOrdering Facility: [facility] Address: [address] [address] Performed By: #### 2 4328, ####[facility]CREST LABORATORYCLIA [id number] [place] [address] [place] Sodium [Moles/Vol] 136 mmol/L Normal 136-144 [facility] Comment on above: Order Comment: Speci men Type: BLOOD SPECIMENOrdering Facility: [facility] Address: [address] [address] Performed By: #### 2 4328, ####[facility] LABORATORYCLIA [id number] [place] [id number] [place] Urea nitrogen [Mass/Vol] 13 mg/dL Normal 7-21 [facility] Comment on above: Order Comment: Speci men Type: BLOOD SPECIMENOrdering Facility: [facility] Address: [address] [place] [address] [place] [address] Performed By: #### 2 4323-8, ####[facility] LABORATORYCLIA [id number] [place] [id number] [place] ECHOon 10-31-2022 Echocardiography Echocardiography Rep ort: Transthoracic Echo [facility] Date of service: 10/31/2022 1:07:[facility] Ordering physician: DANA MARVIN Indication: Syncope Technologist: Bryce Mulligan [facility] Interpreting physician: aKren Anton MD PATIENT: Name: MRS. CHRISSY ALY : 1965 Age: 57 years Gender: F [...] * * Final * * * CC [employer] : [id number] Normal [facility] ED NOTEon 10-31-2022 ED NOTE HNO ID: [id number] Author: Honey Gonsalez RN Service: ? Author Type: Registered Nurse Type: ED Notes Filed: 10/31/2022 12:21 AM Note Text: Bedside report to [facility]. Report called to by NERY [place]. Patient stable, AO*3, VSS, IV intact and patent. Belongings sent with patient. Normal [facility] ED NOTE HNO ID: [id number] Author: Honey Gonsalez RN Service: ? Author Type: Registered Nurse Type: ED Notes Filed: 10/31/2022 12:18 AM Note Text: Patient states her BG is reading 84. Given nga alicia and easy mac. Patient ambulated to the bathroom without difficulty. Normal [facility] GGT SerPl-cCncon 10-31-2022 Gamma glutamyl transferase [Catalytic activity/Vol] 164 U/L High 6-46 [facility] Comment on above: Order Comment: Speci men Type: BLOOD SPECIMENOrdering Facility: [facility] Address: [address] [place] [address] Performed By: #### 2 324-2 ####[facility] LABCL[facility] [id number] [address] STATES OF [facility] HISTORY PHYSICALon HISTORY PHYSICAL HNO ID: [id number] Author: Katiuska Fairchild APRN.ROTARY DRILL RIG OPERATOR Service: General Internal Medicine Author Type: Nurse [...] prescribed that. 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 She says she feels dizzy and lightheaded. [...] c3-6 APPENDECTOMY 1997 BIOPSY BREAST OPEN INCISIONAL 1995 Bx of breast, incisional - right CHOLECYSTECTOMY [...] OF 09/2021 cervical fusion 2-[address] Lopez/[facility], hardware present REPAIR RECTOCELE SEPARATE PROCEDURE 10/03/2005 [...] takes when she takes pain medication d/t itich (more content not included)... 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 Lopez/[facility], hardware present REPAIR RECTOCELE SEPARATE PROCEDURE 10/03/2005 [...] needed., Disp: (more content not included)... Normal [facility] HbA1c (Bld)on 10-31-2022 Average glucose Estimated from glycated hemoglobin (Bld) [Mass/Vol] 186 mg/dL Normal [facility] Comment on above: Order Comment: Van mora Type: BLOOD SPECIMENOrdering Facility: [facility] Address: [address] [place] [address] Result Comment: eAG: (Estimated average glucose) is a calculated value from HgbA1c and is cash posting representative of the average blood glucose level in the last 2-3 month period. Performed By: #### 5 5454-3 ####[facility] LABCLIA [id number] [place] [address] [place] HbA1c (Bld) [Mass fraction] 8.1 % High 4.3-5.6 [facility] Comment on above: Order Comment: Van mora Type: BLOOD SPECIMENOrdering Facility: [facility] Address: [address] [place] [address] Result Comment: Amer [place] Diabetes Association guidelines indicate that patients with HgbA1c in the range 5.7-6.4% are at increased risk for development of diabetes, and intervention by lifestyle modification may be beneficial. HgbA1c greater or equal to 6.5% is considered diagnostic of diabetes. Performed By: #### 5 5454-3 ####[facility] [id number] [place] [address] [place] Lactate (Bld) [Moles/Vol]on 10-31-2022 Lactate [Moles/Vol] 1.2 mmol/L Normal 0.5-2.2 [facility] Comment on above: Order Comment: Speci men Type: BLOOD SPECIMENOrdering Facility: [facility] Address: [address] [place] [address] Performed By: #### 3 2693-4 ####[facility]ORATORYCLIA [id number] [place] [address] [place] Magnesium SerPl-mCncon 10-31 Magnesium [Mass/Vol] 1.8 mg/dL Normal 1.7-2.3 [facility] Comment on above: Order Comment: Speci men Type: BLOOD SPECIMENOrdering Facility: [facility] Address: [address] [place] [address] Performed By: #### 2 4323-8, 91367-4 ####[facility]ORATORYCLIA [id number] [place] [address] [place] URINALYSIS, REFLEX MICROSCOP ICon 10-31-2022 Bilirubin Ql (U) Negative Normal Negative [facility] Comment on above: Order Comment: Speci men Type: URINE SPECIMENOrdering Facility: [facility] Address: [address] [place] [address] Performed By: #### L [id number] ####[facility]ORATORYCLIA [id number] [place] [address] [place] Clarity (Unsp spec) Clear Normal Clear [facility] Comment on above: Order Comment: Speci men Type: URINE SPECIMENOrdering Facility: [facility] Address: [address] [place] [address] Performed By: #### L [id number] ####[facility]ORATORYCLIA [id number] [place] [address] [place] Color (U) Colorless Normal Yellow [facility] Comment on above: Order Comment: Speci men Type: URINE SPECIMENOrdering Facility: [facility] Address: [address] [place] [address] Performed By: #### L [id number] ####[facility]ORATORYCLIA [id number] [place] [address] [place] Epithelial cells LM.HPF (Urine sed) [#/Area] Moderate Normal [facility] Comment on above: Order Comment: Speci men Type: URINE SPECIMENOrdering Facility: [facility] Address: [address] [place] [address] Performed By: #### L [id number] ####[facility]ATORYCLIA [id number] [place] [address] [place] Glucose Test strip (U) [Mass/Vol] 3+ Abnormal Trace, Negative [facility] Comment on above: Order Comment: Speci men Type: URINE SPECIMENOrdering Facility: [facility] Address: [address] [place] [address] Performed By: #### L [id number] ####[facility]ORATORYCLIA [id number] [place] [address] [place] Hemoglobin Ql (U) Negative Normal Negative, Trace [facility] Comment on above: Order Comment: Speci men Type: URINE SPECIMENOrdering Facility: [facility] Address: [address] [place] [address] Performed By: #### L [id number] ####[facility]ATORYCLIA [id number] [place] [address] [place] Ketones Ql (U) Negative Normal Negative, Trace [facility] Comment on above: Order Comment: Speci men Type: URINE SPECIMENOrdering Facility: [facility] Address: [address] [place] [address] Performed By: #### L [id number] ####[facility]ATORYCLIA [id number] [place] [address] [place] Leukocyte esterase Test strip Ql (U) Negative Normal Negative, 25 Jim/uL [facility] Comment on above: Order Comment: Speci men Type: URINE SPECIMENOrdering Facility: [facility] Address: [address] [place] [address] Performed By: #### L [id number] ####[facility]ATORYCLIA [id number] [place] [address] [place] Nitrite Ql (U) Negative Normal Negative [facility] Comment on above: Order Comment: Speci men Type: URINE SPECIMENOrdering Facility: [facility] Address: [address] [place] [address] Performed By: #### L [id number] ####[facility]ATORYCLIA [id number] [place] [address] [place] pH (U) 6.5 [pH] Normal 5.0-8.0 [facility] Comment on above: Order Comment: Speci men Type: URINE SPECIMENOrdering Facility: [facility] Address: [address] [place] [address] Performed By: #### L [id number] ####[facility]ORATORYCLIA [id number] [place] [address] [place] Protein (U) [Mass/Vol] Negative Normal Trace, Negative [facility] Comment on above: Order Comment: Speci men Type: URINE SPECIMENOrdering Facility: [facility] Address: [address] [place] [address] Performed By: #### L [id number] ####[facility]ORATORYCLIA [id number] [place] [address] [place] RBC LM.HPF (Urine sed) [#/Area] 0-3 /HPF Normal 0-3 /HPF [facility] Comment on above: Order Comment: Speci men Type: URINE SPECIMENOrdering Facility: [facility] Address: [address] [place] [address] Performed By: #### L [id number] ####[facility]ORATORYCLIA [id number] [place] [address] [place] Specific gravity (U) [Rel density] 1.008 Normal 1.005-1.030 [facility] Comment on above: Order Comment: Speci men Type: URINE SPECIMENOrdering Facility: [facility] Address: [address] [place] [address] Performed By: #### L [id number] ####[facility]ORATORYCLIA [id number] [address] [place] Urobilinogen Ql (U) Negative Normal Negative [facility] Comment on above: Order Comment: Speci men Type: URINE SPECIMENOrdering Facility: [facility] Address: [address] [place] [address] Performed By: #### L [id number] ####[facility] LABORATORYCLIA [id number] [place] [address] [place] WBC LM.HPF (Urine sed) [#/Area] 0-5 /HPF Normal 0-5 /HPF [facility] Comment on above: Order Comment: Speci men Type: URINE SPECIMENOrdering Facility: [facility] Address: [address] [place] [address] Performed By: #### L [id number] ####[facility] LABORATORYCLIA [id number] [address] [place] ALLIED HEALTHon 10-30-2022 ALLIED HEALTH HNO ID: [id number] Author: RT Rosina(R) Service: Radiology Author Type: [...] IV DATA: Not applicable SIGNED BY: RT Rosina(R) October 30, 2022 5:58 PM Normal [facility] Bacteria Bld Culton 10-31-19 23 Bacteria identified Cx Nom (Bld) CULTURE, BLOOD: No growth 5 days Normal [facility] Comment on above: Performed By: #### 6 00-7 ####[facility] [id number] [facility] [id number] [address] [place] Basic metabolic 2000 panelon 10-30-2022 Anion gap [Moles/Vol] 12 mmol/L Normal 9-18 [facility] Comment on above: Order Comment: Speci men Type: BLOOD SPECIMENOrdering Facility: [facility] Address: [address] [address] Performed By: #### 2 4321-2 ####TY [facility] LABORATORYCLIA [id number] [place] [address] [place] Calcium [Mass/Vol] 9.4 mg/dL Normal 8.5-10.2 [facility] Comment on above: Order Comment: Speci men Type: BLOOD SPECIMENOrdering Facility: [facility] Address: [address] [address] Performed By: #### 2 4321-2 ####TY [facility] LABORATORYCLIA [id number] [place] [address] [place] Chloride [Moles/Vol] 98 mmol/L Normal 97-105 [facility] Comment on above: Order Comment: Speci men Type: BLOOD SPECIMENOrdering Facility: [facility] Address: [address] [address] Performed By: #### 2 4321-2 ####TY [facility] LABORATORYCLIA [id number] [place] [address] [place] CO2 [Moles/Vol] 22 mmol/L Normal 22-30 [facility] Comment on above: Order Comment: Speci men Type: BLOOD SPECIMENOrdering Facility: [facility] Address: [address] [address] Performed By: #### 2 4321-2 ####TY [facility] LABORATORYCLIA [id number] [address] [facility] Creatinine [Mass/Vol] 1.50 mg/dL High 0.58-0.96 [facility] Comment on above: Order Comment: Van mora Type: BLOOD SPECIMENOrdering Facility: [facility] Address: [address] [place] [address] Performed By: #### 2 4321-2 ####TY [facility] LABORATORYCLIA [id number] [address] ESTIMATED GLOMERULAR FILTRATION RATE 41 mL/min/1.73m??? Low >=60 [facility] Comment on above: Order Comment: Van mora Type: BLOOD SPECIMENOrdering Facility: [facility] Address: [address] [place] [address] Result Comment: Mei mated Glomerular Filtration Rate [...] GFR. Performed By: #### 2 4321-2 ####TY [facility] LABORATORYCLIA [id number] [address] [place] Glucose [Mass/Vol] 188 mg/dL High 74-99 [facility] Comment on above: Order Comment: Van mora Type: BLOOD SPECIMENOrdering Facility: [facility] Address: [address] [place] [address] Result Comment: The [place] Diabetes Association (ADA) provides guidance for cutoff [...] Standards of Medical Care in Diabetes 2016, [place] Diabetes Association. Diabetes Care. 2016.39(Suppl 1). Performed By: #### 2 4321-2 ####TY [facility] LABORATORYCLIA [id number] [place] [address] [place] Potassium [Moles/Vol] 4.0 mmol/L Normal 3.7-5.1 [facility] Comment on above: Order Comment: Speci men Type: BLOOD SPECIMENOrdering Facility: [facility] Address: [address] [address] Performed By: #### 2 4321-2 ####YENCINDY [facility] LABORATORYIA [id number] [place] [address] [place] Sodium [Moles/Vol] 132 mmol/L Low 136-144 [facility] Comment on above: Order Comment: Speci men Type: BLOOD SPECIMENOrdering Facility: [facility] Address: [address] [address] Performed By: #### 2 4321-2 ####CARLOS ENRIQUECINDY [facility] LABORATORYIA [id number] [place] [address] [place] Urea nitrogen [Mass/Vol] 14 mg/dL Normal 7-21 [facility] Comment on above: Order Comment: Speci men Type: BLOOD SPECIMENOrdering Facility: [facility] Address: [address] [address] Performed By: #### 2 4321-2 ####CARLOS ENRIQUECINDY [facility] LABORATORYCLIA [id number] [place] [address] [place] CBC W Auto Differential pane l (Bld)on 10-30-2022 Basophils (Bld) [#/Vol] 0.07 10*3/uL Normal <0.11 [facility] Comment on above: Order Comment: Speci men Type: BLOOD SPECIMENOrdering Facility: [facility] Address: [address] [address] Performed By: #### 5 7021-8 ####CARLOS ENRIQUECINDY [facility] LABORATORYCLIA [id number] [place] [address] [place] Basophils/100 WBC (Bld) 0.5 % Normal [facility] Comment on above: Order Comment: Speci men Type: BLOOD SPECIMENOrdering Facility: [facility] Address: [address] [address] Performed By: #### 5 7021-8 ####CARLOS ENRIQUEDEVIN [facility] LABORATORYCLIA [id number] [place] [address] [place] Differential cell count method Nom (Bld) Auto Normal [facility] Comment on above: Order Comment: Speci men Type: BLOOD SPECIMENOrdering Facility: [facility] Address: [address] [address] Performed By: #### 5 7021-8 ####CARLOS ENRIQUEDEVIN [facility] LABORATORYCLIA [id number] [place] [address] [place] Eosinophils (Bld) [#/Vol] 0.03 10*3/uL Normal <0.46 [facility] Comment on above: Order Comment: Speci men Type: BLOOD SPECIMENOrdering Facility: [facility] Address: [address] [place] [address] Performed By: #### 5 7021-8 ####TY [facility] LABORATORYCLIA [id number] [address] Eosinophils/100 WBC (Bld) 0.2 % Normal [facility] Comment on above: Order Comment: Speci men Type: BLOOD SPECIMENOrdering Facility: [facility] Address: [address] [address] Performed By: #### 5 7021-8 ####CARLOS ENRIQUEDEVIN [facility] LABORATORYIA [id number] [address] STATES [facility] Erythrocyte distribution width (RBC) [Ratio] 12.5 % Normal 11.5-15.0 [facility] Comment on above: Order Comment: Speci men Type: BLOOD SPECIMENOrdering Facility: [facility] Address: [address] [place], [place] [address] Performed By: #### 5 7021-8 ####YENCINDY [facility] LABORATORYIA [id number] [place] [address] [place] Hematocrit (Bld) [Volume fraction] 42.9 % Normal 36.0-46.0 [facility] Comment on above: Order Comment: Speci men Type: BLOOD SPECIMENOrdering Facility: [facility] Address: [address] [address] Performed By: #### 5 7021-8 ####CARLOS ENRIQUEDEVIN [facility] LABORATORYIA [id number] [place] [address] [place] Hemoglobin (Bld) [Mass/Vol] 14.5 g/dL Normal 11.5-15.5 [facility] Comment on above: Order Comment: Speci men Type: BLOOD SPECIMENOrdering Facility: [facility] Address: [address] [place] [address] Performed By: #### 5 7021-8 ####CARLOS ENRIQUECINDY [facility] COASTIA [id number] [place] [address] [place] Immature granulocytes (Bld) [#/Vol] 0.06 10*3/uL Normal <0.10 [facility] Comment on above: Order Comment: Speci men Type: BLOOD SPECIMENOrdering Facility: [facility] Address: [address] [place] [address] Performed By: #### 5 7021-8 ####TY [facility] LABORATORYIA [id number] [place] [address] [place] Immature granulocytes/100 WBC (Bld) 0.4 % Normal [facility] Comment on above: Order Comment: Speci men Type: BLOOD SPECIMENOrdering Facility: [facility] Address: [address] [place] [address] Performed By: #### 5 7021-8 ####CARLOS ENRIQUECINDY [facility] LABORATORYIA [id number] [place] [address] [facility] [place] Lymphocytes (Bld) [#/Vol] 1.99 10*3/uL Normal 1.00-4.00 [facility] Comment on above: Order Comment: Speci men Type: BLOOD SPECIMENOrdering Facility: [facility] Address: [address] [place] [address] Performed By: #### 5 7021-8 ####CARLOS ENRIQUEDEVIN [facility] LABORATORYCLIA [id number] [address] Lymphocytes/100 WBC (Bld) 13.1 % Normal [facility] Comment on above: Order Comment: Speci men Type: BLOOD SPECIMENOrdering Facility: [facility] Address: [address] [place] [address] Performed By: #### 5 7021-8 ####TY [facility] LABORATORYCLIA [id number] [address] [place] MCH (RBC) [Entitic mass] 30.4 pg Normal 26.0-34.0 [facility] Comment on above: Order Comment: Speci men Type: BLOOD SPECIMENOrdering Facility: [facility] Address: [address] [place] [address] Performed By: #### 5 7021-8 ####TY [facility] LABORATORYCLIA [id number] [address] [place] MCHC (RBC) [Mass/Vol] 33.8 g/dL Normal 30.5-36.0 [facility] Comment on above: Order Comment: Speci men Type: BLOOD SPECIMENOrdering Facility: [facility] Address: [address] [address] Performed By: #### 5 7021-8 ####CARLOS ENRIQUEDEVIN [facility] LABORATORYCLIA [id number] [address] MCV (RBC) [Entitic vol] 89.9 fL Normal 80.0-100.0 [facility] Comment on above: Order Comment: Speci men Type: BLOOD SPECIMENOrdering Facility: [facility] Address: [address] [place] [address] Performed By: #### 5 7021-8 ####TY [facility] LABORATORYCLIA [id number] [place] [address] [place] Monocytes (Bld) [#/Vol] 1.10 10*3/uL High <0.87 [facility] Comment on above: Order Comment: Speci men Type: BLOOD SPECIMENOrdering Facility: [facility] Address: [address] [address] Performed By: #### 5 7021-8 ####YT [facility] LABORATORYCLIA [id number] [place] [address] [place] Monocytes/100 WBC (Bld) 7.2 % Normal [facility] Comment on above: Order Comment: Speci men Type: BLOOD SPECIMENOrdering Facility: [facility] Address: [address] [address] Performed By: #### 5 7021-8 ####CARLOS ENRIQUECINDY [facility] LABORATORYIA [id number] [place] [address] [place] Neutrophils (Bld) [#/Vol] 11.93 10*3/uL High 1.45-7.50 [facility] Comment on above: Order Comment: Speci men Type: BLOOD SPECIMENOrdering Facility: [facility] Address: [address] [address] Performed By: #### 5 7021-8 ####YENCINDY [facility] LABORATORYCLIA [id number] [place] [address] [place] Neutrophils/100 WBC (Bld) 78.6 % Normal [facility] Comment on above: Order Comment: Speci men Type: BLOOD SPECIMENOrdering Facility: [facility] Address: [address] [address] Performed By: #### 5 7021-8 ####YENCINDY [facility] LABORATORYCLIA [id number] [place] [address] [place] Nucleated RBC (Bld) [#/Vol] 10*3/uL Normal <0.01 [facility] Comment on above: Order Comment: Speci men Type: BLOOD SPECIMENOrdering Facility: [facility] Address: [address] [address] Performed By: #### 5 7021-8 ####CARLOS ENRIQUEDEVIN [facility] LABORATORYCLIA [id number] [place] [address] [place] Nucleated RBC/100 WBC (Bld) [Ratio] 0.0 /100 WBC Normal [facility] Comment on above: Order Comment: Speci men Type: BLOOD SPECIMENOrdering Facility: [facility] Address: [address] [address] Performed By: #### 5 7021-8 ####TY [facility] LABORATORYCLIA [id number] [place] [address] [place] Platelet mean volume (Bld) [Entitic vol] 8.8 fL Low 9.0-12.7 [facility] Comment on above: Order Comment: Speci men Type: BLOOD SPECIMENOrdering Facility: [facility] Address: [address] [address] Performed By: #### 5 7021-8 ####CARLOS ENRIQUEDEVIN [facility] LABORATORYCLIA [id number] [place] [address] [place] Platelets (Bld) [#/Vol] 372 10*3/uL Normal 150-400 [facility] Comment on above: Order Comment: Speci men Type: BLOOD SPECIMENOrdering Facility: [facility] Address: [address] [address] Performed By: #### 5 7021-8 ####CARLOS ENRIQUEDEVIN [facility] LABORATORYIA [id number] [place] [address] [place] RBC (Bld) [#/Vol] 4.77 10*6/uL Normal 3.90-5.20 [facility] Comment on above: Order Comment: Speci men Type: BLOOD SPECIMENOrdering Facility: [facility] Address: [address] [address] Performed By: #### 5 7021-8 ####TY [facility] LABORATORYCLIA [id number] [place] [address] [facility] WBC (Bld) [#/Vol] 15.18 10*3/uL High 3.70-11.00 [facility] Comment on above: Order Comment: Speci men Type: BLOOD SPECIMENOrdering Facility: [facility] Address: [address] [address] Performed By: #### 5 7021-8 ####TY [facility] LABORATORYCLIA [id number] [address] OF [place] CK SerPl-cCncon 10-30-2022 CK [Catalytic activity/Vol] 60 U/L Normal 42-196 [facility] Comment on above: Order Comment: Speci men Type: BLOOD SPECIMENOrdering Facility: [facility] Address: [address] [place] [address] Performed By: #### 2 157-6, 3040-3, HSTNT, BHB, 11845-8 ####TY [facility] LABORATORYCLIA [id number] [address] Comprehensive metabolic 2000 panelon 10-30-2022 Albumin [Mass/Vol] 5.0 g/dL High 3.9-4.9 [facility] Comment on above: Order Comment: Speci men Type: BLOOD SPECIMENOrdering Facility: [facility] Address: [address] Performed By: #### 2 157-6, 3040-3, HSTNT, BHB, 74694-5 ####TY [facility] LABORATORYCLIA [id number] [address] ALP [Catalytic activity/Vol] 129 U/L High 34-123 [facility] Comment on above: Order Comment: Speci men Type: BLOOD SPECIMENOrdering Facility: [facility] Address: [address] [address] Performed By: #### 2 157-6, 3040-3, HSTNT, BHB, 85525-3 ####TY [facility] LABORATORYCLIA [id number] [place] [address] [place] ALT [Catalytic activity/Vol] 60 U/L High 7-38 [facility] Comment on above: Order Comment: Speci men Type: BLOOD SPECIMENOrdering Facility: [facility] Address: [address] [place] [address] Performed By: #### 2 157-6, 3040-3, HSTNT, BHB, 39144-9 ####TY [facility] LABORATORYCLIA [id number] [address] [place] Anion gap [Moles/Vol] 18 mmol/L Normal 9-18 [facility] Comment on above: Order Comment: Speci men Type: BLOOD SPECIMENOrdering Facility: [facility] Address: [address] [place] [address] Performed By: #### 2 157-6, 3040-3, HSTNT, BHB, 52175-5 ####TY [facility]ASTIA [id number] [address] [place] AST [Catalytic activity/Vol] 56 U/L High 13-35 [facility] Comment on above: Order Comment: Speci men Type: BLOOD SPECIMENOrdering Facility: [facility] Address: [address] [place] [address] Performed By: #### 2 157-6, 3040-3, HSTNT, BHB, 51970-6 ####TY [facility] LABORATORYIA [id number] [place] [address] [place] [facility] Bilirubin [Mass/Vol] 0.6 mg/dL Normal 0.2-1.3 [facility] Comment on above: Order Comment: Speci men Type: BLOOD SPECIMENOrdering Facility: [facility] Address: [address] [place] [address] Performed By: #### 2 157-6, 3040-3, HSTNT, BHB, 65322-6 ####TY [facility] LABORATORYCLIA [id number] [place] [address] [place] Calcium [Mass/Vol] 11.0 mg/dL High 8.5-10.2 [facility] Comment on above: Order Comment: Speci men Type: BLOOD SPECIMENOrdering Facility: [facility] Address: [address] [place] [address] Performed By: #### 2 157-6, 3040-3, HSTNT, BHB, 93779-5 ####CARLOS ENRIQUECINDY FORMERLY [facility] LABORATORYCLIA [id number] [place] [address] [place] Chloride [Moles/Vol] 90 mmol/L Low 97-105 [facility] Comment on above: Order Comment: Speci men Type: BLOOD SPECIMENOrdering Facility: [facility] Address: [address] [place] [address] Performed By: #### 2 157-6, 3040-3, HSTNT, BHB, 12438-7 ####CAROLS ENRIQUECINDY FORMERLY [facility] LABORATORYCLIA [id number] [place] [address] [place] CO2 [Moles/Vol] 21 mmol/L Low 22-30 [facility] Comment on above: Order Comment: Speci men Type: BLOOD SPECIMENOrdering Facility: [facility] Address: [address] [place] [address] Performed By: #### 2 157-6, 3040-3, HSTNT, BHB, 73581-4 ####TY [facility] LABORATORYCLIA [id number] [place] [address] [place] Creatinine [Mass/Vol] 1.86 mg/dL High 0.58-0.96 [facility] Comment on above: Order Comment: Speci men Type: BLOOD SPECIMENOrdering Facility: [facility] Address: [address] [place] [address] Performed By: #### 2 157-6, 3040-3, HSTNT, BHB, 79569-0 ####CARLOS ENRIQUECINDY FOR[facility]LY [facility] LABORATORYCLIA [id number] [place] [address] [place] ESTIMATED GLOMERULAR FILTRATION RATE 31 mL/min/1.73m??? Low >=60 [facility] Comment on above: Order Comment: Van mora Type: BLOOD SPECIMENOrdering Facility: [facility] Address: [address] [place] [address] Result Comment: Mei mated Glomerular Filtration Rate [...] GFR. Performed By: #### 2 157-6, 3040-3, HSTNT, B, 24254-5 ####[facility] LABORATORYCLIA [id number] [place] [address] [place] Glucose [Mass/Vol] 309 mg/dL High 74-99 [facility] Comment on above: Order Comment: Van mora Type: BLOOD SPECIMENOrdering Facility: [facility] Address: [address] [place] [address] Result Comment: The [place] Diabetes Association (ADA) provides guidance for cutoff [...] Standards of Medical Care in Diabetes 2016, [place] Diabetes [employer]. Diabetes Care. 2016.39(Suppl 1). Performed By: #### 2 157-6, 3040-3, HSTNT, BHB, 99553-4 ####[facility] CENTERCINDY FOR[facility] LABORATORYCLIA [id number] [place] [address] [place] Potassium [Moles/Vol] 4.2 mmol/L Normal 3.7-5.1 [facility] Comment on above: Order Comment: Speci men Type: BLOOD SPECIMENOrdering Facility: [facility] Address: [address] [place] [address] Performed By: #### 2 157-6, 3040-3, HSTNT, BHB, 02028-9 ####TY [facility] LABORATORYCLIA [id number] [place] [address] [place] Protein [Mass/Vol] 8.3 g/dL High 6.3-8.0 [facility] Comment on above: Order Comment: Speci men Type: BLOOD SPECIMENOrdering Facility: [facility] Address: [address] [place] [address] Performed By: #### 2 157-6, 3040-3, HSTNT, BHB, 74884-3 ####TY [facility] LABORATORYCLIA [id number] [place] [address] [place] Sodium [Moles/Vol] 129 mmol/L Low 136-144 [facility] Comment on above: Order Comment: Speci men Type: BLOOD SPECIMENOrdering Facility: [facility] Address: [address] [place] [address] Performed By: #### 2 157-6, 3040-3, HSTNT, BHB, 84111-7 ####TY [facility] LABORATORYCLIA [id number] [place] [address] [place] Urea nitrogen [Mass/Vol] 16 mg/dL Normal 7-21 [facility] Comment on above: Order Comment: Speci men Type: BLOOD SPECIMENOrdering Facility: [facility] Address: [address] [place] [address] Performed By: #### 2 157-6, 3040-3, HSTNT, BHB, 37349-5 ####TY [facility] LABORATORYCLIA [id number] [address] [place] ECG COMPLETEon 10-30-2022 ECG COMPLETE Ventricular Rate : 9 4 BPM Atrial Rate : 94 BPM P-R Interval : 134 ms QRS Duration : 72 ms Q-T Interval : 386 ms QTC Calculation(Bazett) : 482 ms Calculated P Whiteside : 31 degrees Calculated R [place] : 10 degrees Calculated T [place]iteside : 11 degrees NORMAL SINUS RHYTHM POSSIBLE LEFT ATRIAL ENLARGEMENT NONSPECIFIC ST ABNORMALITY Prolonged QT? ABNORMAL ECG 1701 No significant changes Confirmed by MD SHEPARD TARAS ([id number]), editor index CINTHIA BERGER ([id number]) on 10/31/2022 9:34:25 AM NAME : CHRISSY LAY PID : [id number] : 1965 Gender : Female Race : ORD : [id number] Procedure Date : Oct 30 2022 16:59:56 Edit Date : Oct 31 2022 09:34:27 Diagnosis: NORMAL SINUS RHYTHM POSSIBLE LEFT ATRIAL ENLARGEMENT NONSPECIFIC ST ABNORMALITY Prolonged QT? ABNORMAL ECG 1701 No significant changes Confirmed by MD SHEPARD TARAS ([id number]), editor index CINTHIA BERGER ([id number]) on 10/31/2022 9:34:25 AM Test Reason : Palpitations Location : [address] : [id number] Overread By : MD SHEPARD TARAS Edited By : CINTHIA BERGER Referred By : , Acquired by : Omar WASHINGTON [facility] ED NOTEon 10-30-2022 ED NOTE HNO ID: [id number] Author: Padmini Thompson RN Service: Emergency Medicine Author Type: Registered Nurse Type: ED Notes Filed: 10/30/2022 9:39 PM Note Text: Report to Yasmine Nelson [facility] ED NOTE HNO ID: [id number] Author: Padmini Thompson RN Service: Emergency Medicine Author Type: Registered Nurse Type: ED Notes Filed: 10/30/2022 8:08 PM Note Text: Pt feeling better than upon arrival, slight dizziness when getting up, urine sent Normal [facility] ED NOTE HNO ID: [id number] Author: Padmini Thompson RN Service: Emergency Medicine Author Type: Registered Nurse Type: ED Notes Filed: 10/30/2022 7:33 PM Note Text: Vancomycin almost complete and patient stated her scalp was itching, no rash noted, no SOB, lungs clear, pt advised of [place] admission Normal [facility] ED NOTE HNO ID: [id number] Author: Padmini Thompson RN Service: Emergency Medicine [...] better except for nausea,children at beside Normal [facility] ED NOTE HNO ID: [id number] Author: Padmini Thompson RN Service: Emergency Medicine Author Type: Registered Nurse Type: ED Notes Filed: 10/30/2022 4:27 PM Note Text: Pt possibly having UTI symptoms, had on 2-3 month ago Normal [facility] ED NOTE HNO ID: [id number] Author: Danuta Mcdonald Service: Emergency Medicine Author Type: Vocational Guidance Counselor and Aluminizer Type: ED Notes Filed: 10/30/2022 4:01 PM Note Text: Pt was at work and became nauseated, per Pt just Started jardiance last week , and since then has been having high blood surgars even without eating Dr shepard at bedside Normal [facility] ED PROV NOTEon 10-30-2022 ED PROV NOTE HNO ID: [id number] Author: Reji Shepard MD Service: Emergency Medicine [...] prescribed that. 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 She says she feels dizzy and lightheaded. [...] of breast, incisional - right - CHOLECYSTECTOMY 1991 Cholecystectomy - COLONOSCOPY 2002 - COLONOSCOPY FLX [...] OF 09/2021 cervical fusion 2-[address] Lopez/[facility], hardware present - REPAIR RECTOCELE SEPARATE PROCEDURE [...] - Percocet [Oxycodone* Itching Severe itching - Jwzseog-Obs-Qan Red* Other: See Comments Muscle a (more content not included)... Normal [facility] FLUABV+SARS-CoV-2+RSV Pnl Re sp JALIL+probeon 10-30-2022 FLUABV+SARS-CoV-2+R SV Pnl Resp JALIL+probe COVID 19 RESULT: Not detected The method used is RT-PCR or an equivalent NAAT method. Reference Range(the expected result in uninfected individuals): Not detected INFLUENZA A PCR: Not detected INFLUENZA B PCR: Not detected RSV PCR: Not detected Normal [facility] Comment on above: Performed By: #### 9 5941-1 ####YENCINDY FORMERLY [facility] LABORATORYCLIA [id number] [place] [address] [place] HIGH SENSITIVITY TROPONIN To n 10-30-2022 HIGH SENSITIVITY YUE 9 ng/L Normal <12 [facility] Comment on above: Order Comment: Speci men Type: BLOOD SPECIMENOrdering Facility: [facility] Address: [address] [place] [address] Result Comment: When assessing risk for acute [...] By: #### 2 157-6, 3040-3, HSTNT, BHB, 88477-5 ####CARLOS ENRIQUEDEVIN FORMERLY [facility]ORATORYCLIA [id number] [place] [address] [place] KETONES/ACETONE/BHBon 2022 Beta hydroxybutyrate [Moles/Vol] 0.59 mmol/L High <0.28 [facility] Comment on above: Order Comment: Van mora Type: BLOOD SPECIMENOrdering Facility: [facility] Address: [address] [place] [address] Performed By: #### 2 157-6, 3040-3, HSTNT, BHB, 61551-7 ####CARLOS ENRIQUEDEVIN FOR[facility]ORATORYCLIA [id number] [place] [address] [place] Lipase SerPl-cCncon 10-31-19 23 Lipase [Catalytic activity/Vol] 40 U/L Normal 16-61 [facility] Comment on above: Order Comment: Josei men Type: BLOOD SPECIMENOrdering Facility: [facility] Address: [address] [place] [address] Performed By: #### 2 157-6, 3040-3, HSTNT, BHB, 76942-3 ####TY [facility]ORATORYCLIA [id number] [place] [address] [facility] [place] Magnesium SerPl-mCncon 10-30 Magnesium [Mass/Vol] 2.0 mg/dL Normal 1.7-2.3 [facility] Comment on above: Order Comment: Speci men Type: BLOOD SPECIMENOrdering Facility: [facility] Address: [address] [place] [address] Performed By: #### 1 9123-9 ####TY [facility]ORATORYCLIA [id number] [address] TOX SCREEN ROUT URon 023 Amphetamines Confirm (U) [Mass/Vol] Negative Normal Negative [facility] Comment on above: Order Comment: Speci men Type: URINE SPECIMENOrdering Facility: [facility] Address: [address] [place] [address] Result Comment: Cuto ff threshold at 1000 ng/mL. Performed By: #### U TOX2 ###GAMALIEL [facility] LABORATORYIA [id number] [place] [address] [place] BARBITURATES, URINE Negative Normal Negative [facility] Comment on above: Order Comment: Speci men Type: URINE SPECIMENOrdering Facility: [facility] Address: [address] [place] [address] Result Comment: Cuto ff threshold at 200 ng/mL. Performed By: #### U TOX2 ####TY [facility]ORATORYCLIA [id number] [place] [address] [place] BENZODIAZEPINES, UR Negative Normal Negative [facility] Comment on above: Order Comment: Speci men Type: URINE SPECIMENOrdering Facility: [facility] Address: [address] [place] [address] Result Comment: Cuto ff threshold at 200 ng/mL. Performed By: #### U TOX2 ####TY [facility]ORATORYCLIA [id number] [place] [address] [place] CANNABINOIDS,URINE Positive Abnormal Negative [facility] Comment on above: Order Comment: Speci men Type: URINE SPECIMENOrdering Facility: [facility] Address: [address] [place] [address] Result Comment: Cuto ff threshold at 50 ng/mL. Performed By: #### U TOX2 ####CARLOS ENRIQUEDEVIN FOR[facility]ORATORYCLIA [id number] [place] [address] [place] Cocaine Ql (U) Negative Normal Negative [facility] Comment on above: Order Comment: Speci men Type: URINE SPECIMENOrdering Facility: [facility] Address: [address] [place] [address] Result Comment: Cuto ff threshold at 300 ng/mL. Performed By: #### U TOX2 ####TY [facility] LABORATORYIA [id number] [place] [address] [place] Ethanol (U) [Mass/Vol] <11 Normal <11 [facility] Comment on above: Order Comment: Speci men Type: URINE SPECIMENOrdering Facility: [facility] Address: [address] [place] [address] Performed By: #### U TOX2 ####CARLOS ENRIQUEDEVIN [facility] LABORATORYIA [id number] [place] [address] [place] Opiates Screen Ql (U) Negative Normal Negative [facility] Comment on above: Order Comment: Speci men Type: URINE SPECIMENOrdering Facility: [facility] Address: [address] [place] [address] Result Comment: Cuto ff threshold at 300 ng/mL. Performed By: #### U TOX2 ####CARLOS ENRIQUEDEVIN [facility] COASTIA [id number] [place] [address] [place] oxyCODONE cutoff Screen (U) [Mass/Vol] Positive Abnormal Negative [facility] Comment on above: Order Comment: Speci men Type: URINE SPECIMENOrdering Facility: [facility] Address: [facility] [place] [address] Result Comment: Cuto ff threshold at 100 ng/mL. Performed By: #### U TOX2 ####TY [facility] LABORATORYCLIA [id number] [address] Phencyclidine Ql (U) Negative Normal Negative [facility] Comment on above: Order Comment: Speci men Type: URINE SPECIMENOrdering Facility: [facility] Address: [address] [place] [address] Result Comment: Cuto ff threshold at 25 ng/mL. Performed By: #### U TOX2 ####YENCINDY [facility] LABORATORYCLIA [id number] [address] OF [facility] XR CHEST 1V FRONTAL PORTon 0 10-30-2022 [...] silhouette. Other: . IMPRESSION: No active disease Survey Statistician: PSCTia Transcribe Date/Time: Oct 30 2022 5:59P Dictated by : LAVERNE BRUNNER MD This examination was interpreted and the report reviewed and electronically signed by: LAVERNE BRUNNER MD on Oct 30 2022 6:00PM EST [id number] Normal [facility] Absolute lymphocyte counton 06-04-2022 Lymphocytes Auto (Unsp spec) [#/Vol] 2.43 10*3/uL 0.83-4.51 [facility] Work Phone: Basophil percentageon 2021 Basophils/100 WBC (Bld) 1.0 % 0-1 [facility] Work Phone: Bilirubin [Mass/Vol] 0.30 mg/dL 0.20-1.00 [facility] Work Phone: Comment on above: For patients on eltr ombopag therapy, use of Dimension [place] TBIL is not recommended. Chloride [Moles/Vol] 106 mmol/L 98-107 [facility] Work Phone: Cholesterol [Mass/Vol] 209 mg/dL <200 [facility] Work Phone: Comment on above: <200 mg/dL Desirable 200-240 mg/dL Borderline >240 mg/dL High Risk Eosinophils/100 WBC (Bld) 3.0 % 0-5 [facility] Work Phone: Glucose [Mass/Vol] 172 mg/dL 74-106 [facility] Work Phone: Comment on above: Fasting Glucose resu lt greater than or equal to 126 mg/dL suggests DIABETES MELLITUS per A.D.A. criteria. Neutrophils (Bld) [#/Vol] 1.8 10*3/uL 2.0-7.7 [facility] Work Phone: Neutrophils/100 WBC (Bld) 36.6 % 47-70 [facility] Work Phone: Potassium [Moles/Vol] 4.0 mmol/L 3.5-5.1 [facility] Work Phone: Protein [Mass/Vol] 6.7 g/dL 6.4-8.2 [facility] Work Phone: Sodium [Moles/Vol] 141 mmol/L 136-145 [facility] Work Phone: Triglyceride [Mass/Vol] 276 mg/dL <199 [facility] Work Phone: Comment on above: The drugs N-Acetylcy steine and Metamizole may falsely depress this assay.Serum Triglycerides Reference Interval Normal <150 mg/dL Borderline high 150 - 199 mg/dL High 200 - 499 mg/dL Very High > or = 500 mg/dL WBC (Bld) [#/Vol] 5.0 10*3/uL 4.4-11.0 [facility] Work Phone: Blood erythrocytes count (nu mber/volume)on 06-04-2022 RBC (Bld) [#/Vol] 4.23 10*6/uL 4.2-5.4 [facility] Work Phone: Blood hemoglobin measurement (mass/volume)on 06-04-2022 Hemoglobin (Bld) [Mass/Vol] 13.2 g/dL 12.0-15.0 [facility] Work Phone: Blood lymphocytes/100 leukoc yteson 06-04-2022 Lymphocytes/100 WBC (Bld) 48.6 % 19-41 [facility] Work Phone: Blood monocytes/100 leukocyt eson 06-04-2022 Monocytes/100 WBC (Bld) 10.6 % 0-10 [facility] Work Phone: Blood platelet mean volumeon 06-04-2022 Platelet mean volume (Bld) [Entitic vol] 8.6 fL 6.2-12.0 [facility] Work Phone: Determination of erythrocyte mean corpuscular volume (MCV)on 06-04-2022 MCV (RBC) [Entitic vol] 92.0 fL 81-99 [facility] Work Phone: Hematocrit Auto (Bld) [Volum e fraction]on 06-04-2022 Hematocrit (Bld) [Volume fraction] 38.9 % 37-47 [facility] Work Phone: Laboratory - Chemistry and C hemistry - challengeon 06-04-2022 ALP [Catalytic activity/Vol] 107 U/L 45-117 [facility] Work Phone: ALT [Catalytic activity/Vol] 56 U/L 13-56 [facility] Work Phone: CO2 [Moles/Vol] 27.0 mmol/L 21.0-32.0 [facility] Work Phone: Free T4 [Mass/Vol] 0.70 ng/dL 0.76-1.46 [facility] Work Phone: Globulin (S) [Mass/Vol] 3.4 g/dL 2.2-4.2 [facility] Work Phone: Urea nitrogen/Creatinine [Mass ratio] 19.7 mg/mg 10-20 [facility] Work Phone: Laboratory - Hematology and Cell countson 06-04-2022 Erythrocyte distribution width (RBC) [Entitic vol] 43.3 fL 35.1-43.9 [facility] Work Phone: Erythrocyte distribution width (RBC) [Ratio] 12.9 % 11.6-14.6 [facility] Work Phone: Immature granulocytes/100 WBC (Bld) 0.200 % 0.0-0.9 [facility] Work Phone: Comment on above: IG% - Immature Granu locytes (promyelocytes, myelocytes and metamyelocytes) > 1% indicates that a LEFT SHIFT is Present. MCH (RBC) [Entitic mass] 31.2 pg 27.0-32.0 [facility] Work Phone: Nucleated RBC/100 WBC (Bld) [Ratio] 0 % 0-5 [facility] Work Phone: MCHC Auto (RBC) [Mass/Vol]on 06-04-2022 MCHC (RBC) [Mass/Vol] 33.9 g/dL 32-36 [facility] Work Phone: No Panel Informationon 06-04 Estimated GFR (MDRD) Amer 145 mL/min >60 [facility] Work Phone: Comment on above: GFR Calc Estimated GFR (MDRD) Non-Af Amer 120 mL/min >60 [facility] Work Phone: Comment on above: Non- GFR Calc Free Triiodothyronine (T3) pg/dL 2.8 pg/mL 2.18-3.98 [facility] Work Phone: Thyroid Stimulating Hormone (TSH) 1.78 uIU/mL 0.358-3.74 [facility] Work Phone: Vitamin D 25-Hydroxy 42.5 ng/mL [facility] Work Phone: Comment on above: Vitamin D 25(OH) Sta tus Range Deficiency <20 ng/mL (50nmol/L) Insufficiency 20 - 30 ng/mL (50 - 75 nmol/L) Sufficiency 30 - 100 ng/mL (75 - 250 nmol/L) Toxicity >100 ng/mL (>250 nmol/L) Platelets bldon 06-04-2022 Platelets (Bld) [#/Vol] 324 10*3/uL 150-450 [facility] Work Phone: Serum or plasma albumin azul urement (mass/volume)on 06-04-2022 Albumin [Mass/Vol] 3.3 g/dL 3.2-5.0 [facility] Work Phone: Serum or plasma albumin/glob ulin mass ratioon 06-04-2022 Albumin/Globulin [Mass ratio] 1.0 {ratio} 0.9-2.4 [facility] Work Phone: Serum or plasma calcium azul urement (mass/volume)on 06-04-2022 Calcium [Mass/Vol] 8.7 mg/dL 8.5-10.1 [facility] Work Phone: Serum or plasma cholesterol in HDL measurement (mass/volume)on 06-04-2022 Cholesterol in HDL [Mass/Vol] 66 mg/dL >40 [facility] Work Phone: Comment on above: The drugs N-Acetylcy steine and Metamizole may falsely depress this assay. Reference Range HDL <40 mg/dL Low HDL Cholesterol HDL >or= 60 mg/dL High HDL Cholesterol Serum or plasma cholesterol in VLDL measurement (mass/volume)on 06-04-2022 Cholesterol in VLDL [Mass/Vol] 55 mg/dL 5-40 [facility] Work Phone: Serum or plasma creatinine m easurement (mass/volume)on 06-04-2022 Creatinine [Mass/Vol] 0.56 mg/dL 0.55-1.02 [facility] Work Phone: Comment on above: The validity of the calculated GFR & GFRAA in patients over 70 years has not been determined. Clinical correlation is essential. Serum or plasma low density lipoprotein (LDL) cholesterol measurement (mass/volume)on 06-04-2022 Cholesterol in LDL [Mass/Vol] 88 mg/dL 0-130 [facility] Work Phone: Serum or plasma urea nitroge n measurement (mass/volume)on 06-04-2022 Urea nitrogen [Mass/Vol] 11 mg/dL 7-18 [facility] Work Phone: Thin prep Papanicolaou smear with manual screeningon 06-04-2022 Thin prep Papanicolaou smear with manual screening 70 U/L 15-37 [facility] Work Phone: Thin prep Papanicolaou smear with manual screening 8 5-15 [facility] Work Phone: Whole blood hemoglobin A1c/t otal hemoglobin ratio (mass fraction)on 06-04-2022 HbA1c (Bld) [Mass fraction] 8.4 % 3.8-5.6 [facility] Work Phone: Comment on above: Normal < 5.7 % Predi abetic 5.7 - 6.4 % Diabetic >or= 6.5 % Please note range changes. Absolute lymphocyte counton 04-04-2022 Lymphocytes Auto (Unsp spec) [#/Vol] 2.73 10*3/uL 0.83-4.51 [facility] Work Phone: Basophil percentageon 2021 Basophil percentage 5-10 SEEN /hpf 0-5 [facility] Work Phone: Basophils/100 WBC (Bld) 0.4 % 0-1 [facility] Work Phone: Chloride [Moles/Vol] 101 mmol/L 98-107 [facility] Work Phone: Eosinophils/100 WBC (Bld) 0.2 % 0-5 [facility] Work Phone: Glucose [Mass/Vol] 344 mg/dL 74-106 [facility] Work Phone: Comment on above: Glucose result great er than or equal to 200 mg/dLsuggests DIABETES MELLITUS per A.D.A. criteria. Neutrophils (Bld) [#/Vol] 9.0 10*3/uL 2.0-7.7 [facility] Work Phone: Neutrophils/100 WBC (Bld) 70.3 % 47-70 [facility] Work Phone: Potassium [Moles/Vol] 4.1 mmol/L 3.5-5.1 [facility] Work Phone: Comment on above: Moderate Hemolysis, Result may be falsely increased. Sodium [Moles/Vol] 134 mmol/L 136-145 [facility] Work Phone: WBC (Bld) [#/Vol] 12.8 10*3/uL 4.4-11.0 [facility] Work Phone: Bilirubin Test strip Ql (U)o n 04-04-2022 Bilirubin Ql (U) Negative Negative [facility] Work Phone: Blood erythrocytes count (nu mber/volume)on 04-04-2022 RBC (Bld) [#/Vol] 4.73 10*6/uL 4.2-5.4 [facility] Work Phone: [phone] Blood hemoglobin measurement (mass/volume)on 04-04-2022 Hemoglobin (Bld) [Mass/Vol] 14.5 g/dL 12.0-15.0 [facility] Work Phone: Blood lymphocytes/100 leukoc yteson 04-04-2022 Lymphocytes/100 WBC (Bld) 21.3 % 19-41 [facility] Work Phone: Blood monocytes/100 leukocyt eson 04-04-2022 Monocytes/100 WBC (Bld) 7.5 % 0-10 [facility] Work Phone: Blood platelet mean volumeon 04-04-2022 Platelet mean volume (Bld) [Entitic vol] 9.4 fL 6.2-12.0 [facility] Work Phone: Determination of erythrocyte mean corpuscular volume (MCV)on 04-04-2022 MCV (RBC) [Entitic vol] 90.9 fL 81-99 [facility] Work Phone: Glucose Glucometer (BldC) [M ass/Vol]on 04-04-2022 Glucose [Mass/Vol] 366 mg/dL 74-106 [facility] Work Phone: Comment on above: MANAGEMENT OF PATIEN T CARE PER NURSING PROTOCOL Hematocrit Auto (Bld) [Volum e fraction]on 04-04-2022 Hematocrit (Bld) [Volume fraction] 43.0 % 37-47 [facility] Work Phone: Hyaline casts LM.LPF (Urine sed) [#/Area]on 04-04-2022 Hyaline casts (Urine sed) [#/Area] 25 /[LPF] 0-5 [facility] Work Phone: Ketones Test strip Ql (U)on 04-04-2022 Ketones Ql (U) Negative Negative [facility] Work Phone: Laboratory - Chemistry and C hemistry - challengeon 04-04-2022 CO2 [Moles/Vol] 21.0 mmol/L 21.0-32.0 [facility] Work Phone: Urea nitrogen/Creatinine [Mass ratio] 10.9 mg/mg 10-20 [facility] Work Phone: Laboratory - Drug toxicology on 04-04-2022 Amphetamines Ql (U) Negative <1000 ng/mL [facility] Work Phone: Benzodiazepines Ql (U) Negative < 200 ng/mL [facility] Work Phone: Cannabinoids Screen Ql (U) Positive < 50 ng/mL [facility] Work Phone: Cocaine Ql (U) Negative < 300 ng/mL [facility] Work Phone: Opiates Ql (U) Negative < 300 ng/mL [facility] Work Phone: Laboratory - Hematology and Cell countson 04-04-2022 Erythrocyte distribution width (RBC) [Entitic vol] 40.9 fL 35.1-43.9 [facility] Work Phone: Erythrocyte distribution width (RBC) [Ratio] 12.4 % 11.6-14.6 [facility] Work Phone: Immature granulocytes/100 WBC (Bld) 0.300 % 0.0-0.9 [facility] Work Phone: Comment on above: IG% - Immature Granu locytes (promyelocytes, myelocytes and metamyelocytes) > 1% indicates that a LEFT SHIFT is Present. MCH (RBC) [Entitic mass] 30.7 pg 27.0-32.0 [facility] Work Phone: Nucleated RBC/100 WBC (Bld) [Ratio] 0 % 0-5 [facility] Work Phone: MCHC Auto (RBC) [Mass/Vol]on 04-04-2022 MCHC (RBC) [Mass/Vol] 33.7 g/dL 32-36 [facility] Work Phone: Mucus LM Ql (Urine sed)on Mucus Ql (Urine sed) 0 SEEN /hpf [facility] Work Phone: Nitrite Test strip Ql (U)on 04-04-2022 Nitrite Ql (U) Negative Negative [facility] Work Phone: No Panel Informationon 04-04 MDMA (Ecstasy) Screen Negative < 500 ng/mL [facility] Work Phone: Urine Barbiturates Screen Negative < 200 ng/mL [facility] Work Phone: Urine Drug Screen Comment [facility] Work Phone: Comment on above: CONFIRMATORY [...] Urine Methadone Screen Negative < 300 ng/mL [facility] Work Phone: Estimated Creatinine Clearance Calc 49.71 ml/min [facility] Work Phone: Estimated GFR (MDRD) Amer 55 mL/min >60 [facility] Work Phone: Comment on above: GFR Calc Estimated GFR (MDRD) Non-Af Amer 45 mL/min >60 [facility] Work Phone: Comment on above: Non- GFR Calc Platelets bldon 04-04-2022 Platelets (Bld) [#/Vol] 526 10*3/uL 150-450 [facility] Work Phone: Protein Test strip Ql (U)on 04-04-2022 Protein Ql (U) 30 mg/dl Negative [facility] Work Phone: Serum or plasma calcium azul urement (mass/volume)on 04-04-2022 Calcium [Mass/Vol] 10.2 mg/dL 8.5-10.1 [facility] Work Phone: Serum or plasma creatinine m easurement (mass/volume)on 04-04-2022 Creatinine [Mass/Vol] 1.29 mg/dL 0.55-1.02 [facility] Work Phone: Comment on above: The validity of the calculated GFR & GFRAA in patients over 70 years has not been determined. Clinical correlation is essential. Serum or plasma urea nitroge n measurement (mass/volume)on 04-04-2022 Urea nitrogen [Mass/Vol] 14 mg/dL 7-18 [facility] Work Phone: Squamous epithelial cells de tection in urine sediment by light microscopyon 04-04-2022 Epithelial cells.squamous LM Ql (Urine sed) 5-10 SEEN /hpf 5-10 [facility] Work Phone: Thin prep Papanicolaou smear with manual screeningon 04-04-2022 Thin prep Papanicolaou smear with manual screening 12 5-15 [facility] Work Phone: Urine blood detectionon 09 RBC Ql (U) 10 /ul Negative [facility] Work Phone: RBC Ql (U) 0-5 SEEN /hpf 0-5 [facility] Work Phone: Urine clarityon 04-04-2022 Clarity (U) Clear Clear [facility] Work Phone: Urine color determinationon 04-04-2022 Color (U) Yellow Yellow [facility] Work Phone: Urine glucose detectionon Glucose Ql (U) 1000 mg/dl Normal [facility] Work Phone: Urine leukocyte esterase det ection by dipstickon 04-04-2022 Leukocyte esterase Test strip Ql (U) Negative Negative [facility] Work Phone: Urine pHon 04-04-2022 pH (U) 6.0 [pH] 5.0 - 8.0 [facility] Work Phone: Urine phencyclidine (PCP) de tectionon 04-04-2022 Phencyclidine Ql (U) Negative < 25 ng/mL [facility] Work Phone: Urine sediment bacteria coun t by microscopy (number/high power field)on 04-04-2022 Bacteria LM.HPF (Urine sed) [#/Area] 1 /[HPF] None Seen [facility] Work Phone: Urine specific gravity measu rementon 04-04-2022 Specific gravity (U) [Rel density] 1.010 1.002-1.030 [facility] Work Phone: Urobilinogen Auto test strip Ql (U)on 04-04-2022 Urobilinogen Ql (U) Normal mg/dl Normal [facility] Work Phone: Laboratory - Chemistry and C hemistry - challengeon 03-13-2022 Bilirubin Ql (U) Negative [facility] Work Phone: Glucose Ql (U) 500 g/dL [facility] Work Phone: Ketones Ql (U) Trace (5) [facility] Work Phone: pH (U) 6.0 [pH] [facility] Work Phone: Specific gravity (U) [Rel density] 1.020 [facility] Work Phone: Urobilinogen (U) [Mass/Vol] Negative [facility] Work Phone: Laboratory - Hematology and Cell countson 03-13-2022 Hemoglobin Ql (U) Negative [facility] Work Phone: Laboratory - Specimen inform ationon 03-13-2022 Clarity (U) Slightly Hazy [facility] Work Phone: Color (U) YELLOW [facility] Work Phone: Laboratory - Urinalysison Nitrite Ql (U) Negative [facility] Work Phone: Protein Ql (U) Negative [facility] Work Phone: No Panel Informationon 03-13 Urine Leukocytes Negatve [facility] Work Phone: Urine Non-Hemolyzed Blood Negative [facility] Work Phone: Absolute lymphocyte counton 03-11-2022 Lymphocytes Auto (Unsp spec) [#/Vol] 3.48 10*3/uL 0.83-4.51 [facility] Work Phone: Basophil percentageon 2021 Basophil percentage 0-5 SEEN /hpf 0-5 [facility] Work Phone: Basophils/100 WBC (Bld) 0.6 % 0-1 [facility] Work Phone: Bilirubin [Mass/Vol] 0.50 mg/dL 0.20-1.00 [facility] Work Phone: Comment on above: For patients on eltr ombopag therapy, use of Dimension [place] TBIL is not recommended. Chloride [Moles/Vol] 99 mmol/L 98-107 [facility] Work Phone: Eosinophils/100 WBC (Bld) 0.5 % 0-5 [facility] Work Phone: Glucose [Mass/Vol] 143 mg/dL 74-106 [facility] Work Phone: Comment on above: Fasting Glucose resu lt greater than or equal to 126 mg/dL suggests DIABETES MELLITUS per A.D.A. criteria. Neutrophils (Bld) [#/Vol] 8.1 10*3/uL 2.0-7.7 [facility] Work Phone: Neutrophils/100 WBC (Bld) 62.4 % 47-70 [facility] Work Phone: Potassium [Moles/Vol] 4.1 mmol/L 3.5-5.1 [facility] Work Phone: Comment on above: Moderate Hemolysis, Result may be falsely increased. Protein [Mass/Vol] 7.6 g/dL 6.4-8.2 [facility] Work Phone: Sodium [Moles/Vol] 131 mmol/L 136-145 [facility] Work Phone: WBC (Bld) [#/Vol] 13.0 10*3/uL 4.4-11.0 [facility] Work Phone: Bilirubin Test strip Ql (U)o n 03-11-2022 Bilirubin Ql (U) Negative Negative [facility] Work Phone: Blood erythrocytes count (nu mber/volume)on 03-11-2022 RBC (Bld) [#/Vol] 4.77 10*6/uL 4.2-5.4 [facility] Work Phone: Blood hemoglobin measurement (mass/volume)on 03-11-2022 Hemoglobin (Bld) [Mass/Vol] 14.5 g/dL 12.0-15.0 [facility] Work Phone: Blood lymphocytes/100 leukoc yteson 03-11-2022 Lymphocytes/100 WBC (Bld) 26.8 % 19-41 [facility] Work Phone: Blood monocytes/100 leukocyt eson 03-11-2022 Monocytes/100 WBC (Bld) 9.2 % 0-10 [facility] Work Phone: Blood platelet mean volumeon 03-11-2022 Platelet mean volume (Bld) [Entitic vol] 8.9 fL 6.2-12.0 [facility] Work Phone: Determination of erythrocyte mean corpuscular volume (MCV)on 03-11-2022 MCV (RBC) [Entitic vol] 91.4 fL 81-99 [facility] Work Phone: Hematocrit Auto (Bld) [Volum e fraction]on 03-11-2022 Hematocrit (Bld) [Volume fraction] 43.6 % 37-47 [facility] Work Phone: Ketones Test strip Ql (U)on 03-11-2022 Ketones Ql (U) Negative Negative [facility] Work Phone: Laboratory - Chemistry and C hemistry - challengeon 03-11-2022 ALP [Catalytic activity/Vol] 122 U/L 45-117 [facility] Work Phone: ALT [Catalytic activity/Vol] 58 U/L 13-56 [facility] Work Phone: CO2 [Moles/Vol] 25.0 mmol/L 21.0-32.0 [facility] Work Phone: Globulin (S) [Mass/Vol] 4.1 g/dL 2.2-4.2 [facility] Work Phone: Urea nitrogen/Creatinine [Mass ratio] 13.2 mg/mg 10-20 [facility] Work Phone: Bilirubin Ql (U) Negative [facility] Work Phone: Glucose Ql (U) Negative [facility] Work Phone: Ketones Ql (U) Trace (5) [facility] Work Phone: pH (U) 6.0 [pH] [facility] Work Phone: Specific gravity (U) [Rel density] 1.020 [facility] Work Phone: Urobilinogen (U) [Mass/Vol] Negative [facility] Work Phone: Laboratory - Hematology and Cell countson 03-11-2022 Erythrocyte distribution width (RBC) [Entitic vol] 45.2 fL 35.1-43.9 [facility] Work Phone: Erythrocyte distribution width (RBC) [Ratio] 13.5 % 11.6-14.6 [facility] Work Phone: Immature granulocytes/100 WBC (Bld) 0.500 % 0.0-0.9 [facility] Work Phone: Comment on above: IG% - Immature Granu locytes (promyelocytes, myelocytes and metamyelocytes) > 1% indicates that a LEFT SHIFT is Present. MCH (RBC) [Entitic mass] 30.4 pg 27.0-32.0 [facility] Work Phone: Nucleated RBC/100 WBC (Bld) [Ratio] 0 % 0-5 [facility] Work Phone: Hemoglobin Ql (U) Moderate [facility] Work Phone: Laboratory - Specimen inform ationon 03-11-2022 Clarity (U) Cloudy [facility] Work Phone: Color (U) YELLOW [facility] Work Phone: Laboratory - Urinalysison Nitrite Ql (U) Negative [facility] Work Phone: Protein Ql (U) Trace [facility] Work Phone: MCHC Auto (RBC) [Mass/Vol]on 03-11-2022 MCHC (RBC) [Mass/Vol] 33.3 g/dL 32-36 [facility] Work Phone: Mucus LM Ql (Urine sed)on Mucus Ql (Urine sed) 0 SEEN /hpf [facility] Work Phone: Nitrite Test strip Ql (U)on 03-11-2022 Nitrite Ql (U) Negative Negative [facility] Work Phone: No Panel Informationon 03-11 Estimated Creatinine Clearance Calc 49.71 ml/min [facility] Work Phone: Estimated GFR (MDRD) Amer 55 mL/min >60 [facility] Work Phone: Comment on above: GFR Calc Estimated GFR (MDRD) Non-Af Amer 46 mL/min >60 [facility] Work Phone: Comment on above: Non- GFR Calc Troponin I High Sensitivity 8 pg/mL 3.0-54.0 [facility] Work Phone: Comment on above: Please Note: New Hod[place] t Units and Gender Specific Reference Ranges. For more information see Policy Stat Procedure [place] High Sensitivity Troponin (TNIH) and attachments. Urine Leukocytes Positive [facility] Work Phone: Urine Non-Hemolyzed Blood Non-Hemolyzed [facility] Work Phone: Platelets bldon 03-11-2022 Platelets (Bld) [#/Vol] 334 10*3/uL 150-450 [facility] Work Phone: Protein Test strip Ql (U)on 03-11-2022 Protein Ql (U) 15 mg/dl Negative [facility] Work Phone: Serum or plasma albumin azul urement (mass/volume)on 03-11-2022 Albumin [Mass/Vol] 3.5 g/dL 3.2-5.0 [facility] Work Phone: Serum or plasma albumin/glob ulin mass ratioon 03-11-2022 Albumin/Globulin [Mass ratio] 0.9 {ratio} 0.9-2.4 [facility] Work Phone: Serum or plasma calcium azul urement (mass/volume)on 03-11-2022 Calcium [Mass/Vol] 8.9 mg/dL 8.5-10.1 [facility] Work Phone: Serum or plasma creatinine m easurement (mass/volume)on 03-11-2022 Creatinine [Mass/Vol] 1.29 mg/dL 0.55-1.02 [facility] Work Phone: Comment on above: The validity of the calculated GFR & GFRAA in patients over 70 years has not been determined. Clinical correlation is essential. Serum or plasma urea nitroge n measurement (mass/volume)on 03-11-2022 Urea nitrogen [Mass/Vol] 17 mg/dL 7-18 [facility] Work Phone: Squamous epithelial cells de tection in urine sediment by light microscopyon 03-11-2022 Epithelial cells.squamous LM Ql (Urine sed) 0-5 SEEN /hpf 5-10 [facility] Work Phone: Thin prep Papanicolaou smear with manual screeningon 03-11-2022 Thin prep Papanicolaou smear with manual screening 54 U/L 15-37 [facility] Work Phone: Comment on above: Moderate Hemolysis, Result may be falsely increased. Thin prep Papanicolaou smear with manual screening 7 5-15 [facility] Work Phone: Urine blood detectionon - RBC Ql (U) Negative Negative [facility] Work Phone: RBC Ql (U) 0 SEEN /hpf 0-5 [facility] Work Phone: Urine clarityon 03-11-2022 Clarity (U) Clear Clear [facility] Work Phone: Urine color determinationon 03-11-2022 Color (U) Yellow Yellow [facility] Work Phone: Urine glucose detectionon Glucose Ql (U) Normal mg/dl Normal [facility] Work Phone: Urine leukocyte esterase det ection by dipstickon 03-11-2022 Leukocyte esterase Test strip Ql (U) 25 /ul Negative [facility] Work Phone: Urine pHon 03-11-2022 pH (U) 6.0 [pH] 5.0 - 8.0 [facility] Work Phone: Urine sediment bacteria coun t by microscopy (number/high power field)on 03-11-2022 Bacteria LM.HPF (Urine sed) [#/Area] 1 /[HPF] None Seen [facility] Work Phone: Urine specific gravity measu rementon 03-11-2022 Specific gravity (U) [Rel density] 1.015 1.002-1.030 [facility] Work Phone: Urobilinogen Auto test strip Ql (U)on 03-11-2022 Urobilinogen Ql (U) Normal mg/dl Normal [facility] Work Phone: CNOVon 03-04-2022 CNOV Office Visit (TIM ) CHRISSY LAY ([id number]) 1965 F [place] Date Time Provider Department 03/04/22 3:30 PM ANDRY DUNNE During your visit today, we recorded the following information about you: Weight Height 79.4 kg 1.727 m Andry Dunne MD 03/19/2022 1:26 PM Signed Andry Dunne MD Department of Orthopaedics Orthopaedics [address] [facility] [address] Dept: [phone] Dept March 04, 2022 CHIEF COMPLAINT: New [...] surgeries of right shoulder, but this is [facility], and explained that we cannot treat her for this unless Dr. Dunne agrees to take on care and become provider of record. Currently she sees Dr. Jones and Dr. Bishop. She does not want to go back to [place] for care. AMB ROOMING INTAKE FLOWSHEET DATA [...] subacromial bursa Informed Consent Consent Obtained: Verbal [place] Protocol A moment to CARE was completed. [...] THE CORACOCLAVICULAR LIGAMENTS MAY REPRESENT LOW-GRADE SPRAIN. Survey Statistician: PSCB Transcribe Date/Time: Jun 22 2021 4:06P Dictated by : NAYELY ZURITA MD This examination was interpreted and the report reviewed and electronically signed by: HENRY GILMORE MD on Jun 22 2021 5:18PM EST Results-Findings * * *Final Report* * * DATE OF EXAM: Jun 22 2021 3:21PM [facility] 0239 - MRI SHOULDER WO IVCON LT [...] injury S (more content not included)... Normal [facility] CNOVon 12-03-2021 CNOV Office Visit (ORTHMN ) CHRISSY LAY ([id number]) 1965 F [place] Date Time Provider Department 12/03/21 10:45 AM RODOLFO BISHOP During your visit today, we recorded the following information about you: Rodolfo Bishop MD 12/03/2021 3:58 PM Signed SERVICE DATE: Patient would like to see someone today. PCP: Chrissy Lay REFERRING PROVIDER: Sam Jones [id number] [id number] Consult requested for an opinion regarding the [...] broken ankle (left) -- 2007 Following with [facility] [place] Previous Version Essential hypertension, benign Phoebe Razia [...] fusion of cervical spine 04/25/2021 Mariely Kelley, CARE SUPPORT REPRESENTATIVE.ROTARY DRILL RIG OPERATOR No GERD (gastroesophageal reflux disease) 10/25/2019 Mariely Kelley CARE SUPPORT REPRESENTATIVE.ROTARY DRILL RIG OPERATOR No Nausea and vomiting 10/25/2019 Mariely Kelley CARE SUPPORT REPRESENTATIVE.ROTARY DRILL RIG OPERATOR No Mixed hyperlipidemia 10/25/2019 Mariely Kelley CARE SUPPORT REPRESENTATIVE.ROTARY DRILL RIG OPERATOR No History of failed repair of rotator cuff 10/25/2019 Mariely Kelley CARE SUPPORT REPRESENTATIVE.ROTARY DRILL RIG OPERATOR No Impingement syndrome of left shoulder 10/12/2019 Sam Jones MD No Visual disturbances 08/28/2019 Ryan Ortega MD No Traumatic complete tear of right rotator cuff 01/05/2019 Sam Jones MD No Symptomatic menopausal or female climacteric states 09/29/2017 Milo Huizar MD No Right lateral epicondylitis 12/20/2015 Jo Hanna PA-C No Microalbuminuria 07/14/2014 Tomi Sexton MD No Bleeding diathesis ([facility]) 04/11/2014 Vicky Louis MD No Climacteric 09/10/2013 Daniele Vyas No Diabetes mellitus type 2, controlled, without complications ([facility]) 05/18/2013 Ame Mujica No Peripheral neuropathy (Chronic) Brandon Osorio MD No Overview Signed 07/24/2012 12:10 AM by Brandon Huston NCT 07/22/2012 Insomnia Brandon Osorio MD No Overview Signed 03/01/2015 9:41 AM by Tomi Sexton Controlled substance agreement. 11/16 Arth (more content not included)... Normal [facility] CNOVon 11-22-2021 CNOV Office Visit (SPHTB) ALIREZACHRISSY P ([id number]) 1965 F [place] Date Time Provider Department 11/22/21 11:30 AM SAM JONES SPHTB During your visit today, we recorded the following information about you: Sam Jones MD 11/22/2021 11:51 AM Signed FOLLOW UP APPOINTMENT Chief Complaint:/Reason for Visit: Established patient; Scheduled follow up appointment for new or existing problem and/or post-surgical evaluation History of Present Illness: Chrissy Louie Alireza presents today for follow-up. She has an [...] noted. Motor: 5/5 IO, FPL, OP, hand steam press tender, biceps, triceps, deltoid Sensory: SILT ulnar/median/radial distributions [...] 4. Follow-up: As needed All of Chrissy Lya questions were answered today. She expressed a clear understanding of our discussion and is in agreement with the outlined treatment plan Narciso Rosario MD CC:Sam Thomas (more content not included)... Normal [facility] Office Visit (SPHTB) CHRISSY LAY ([id number]) 1965 F [place] Date Time Provider Department 11/22/21 11:15 AM SAM JONES SPHFAITH During your visit today, we recorded the [...] noted. Motor: 5/5 IO, FPL, OP, hand steam press tender, biceps, triceps, deltoid Sensory: SILT ulnar/median/radial distributions [...] answered today. (more content not included)... Normal [facility] Amorphous sediment detection in urine sediment by light microscopyon 09-24-2021 Amorphous sediment LM Ql (Urine sed) 1+ [facility] Work Phone: Basophil percentageon 2021 Basophil percentage 5-10 SEEN /hpf [facility] Work Phone: Bilirubin Test strip Ql (U)o n 09-24-2021 Bilirubin Ql (U) 1 mg/dL Negative [facility] Work Phone: Comment on above: COLOR OF URINE MAY A FFECT DIPSTICK RESULTS. Ketones Test strip Ql (U)on 09-24-2021 Ketones Ql (U) 5 mg/dl Negative [facility] Work Phone: Mucus LM Ql (Urine sed)on Mucus Ql (Urine sed) 0 SEEN /hpf [facility] Work Phone: Nitrite Test strip Ql (U)on 09-24-2021 Nitrite Ql (U) Negative Negative [facility] Work Phone: Protein Test strip Ql (U)on 09-24-2021 Protein Ql (U) 100 mg/dl Negative [facility] Work Phone: Squamous epithelial cells de tection in urine sediment by light microscopyon 09-24-2021 Epithelial cells.squamous LM Ql (Urine sed) 0-5 SEEN /hpf [facility] Work Phone: Urine blood detectionon 09-05 RBC Ql (U) Negative Negative [facility] Work Phone: RBC Ql (U) 0 SEEN /hpf [facility] Work Phone: Urine clarityon 09-24-2021 Clarity (U) Sl. Cloudy Clear [facility] Work Phone: Urine color determinationon 09-24-2021 Color (U) Yellow Yellow [facility] Work Phone: Urine glucose detectionon Glucose Ql (U) Normal mg/dl Normal [facility] Work Phone: Urine leukocyte esterase det ection by dipstickon 09-24-2021 Leukocyte esterase Test strip Ql (U) 25 /ul Negative [facility] Work Phone: Urine pHon 09-24-2021 pH (U) 6.0 [pH] [facility] Work Phone: Urine sediment bacteria coun t by microscopy (number/high power field)on 09-24-2021 Bacteria LM.HPF (Urine sed) [#/Area] 1 /[HPF] None Seen [facility] Work Phone: Urine specific gravity measu rementon 09-24-2021 Specific gravity (U) [Rel density] 1.025 [facility] Work Phone: Urobilinogen Auto test strip Ql (U)on 09-24-2021 Urobilinogen Ql (U) 1 mg/dl Normal [facility] Work Phone: Absolute lymphocyte counton 08-24-2021 Lymphocytes Auto (Unsp spec) [#/Vol] 0.94 10*3/uL 0.83-4.51 [facility] Work Phone: Basophil percentageon 2021 Basophils/100 WBC (Bld) 0.2 % 0-1 [facility] Work Phone: Chloride [Moles/Vol] 101 mmol/L 98-107 [facility] Work Phone: Eosinophils/100 WBC (Bld) 0.2 % 0-5 [facility] Work Phone: Glucose [Mass/Vol] 240 mg/dL 74-106 [facility] Work Phone: Comment on above: Glucose result great er than or equal to 200 mg/dLsuggests DIABETES MELLITUS per A.D.A. criteria. Neutrophils (Bld) [#/Vol] 14.4 10*3/uL 2.0-7.7 [facility] Work Phone: Neutrophils/100 WBC (Bld) 88.4 % 47-70 [facility] Work Phone: Potassium [Moles/Vol] 3.4 mmol/L 3.5-5.1 [facility] Work Phone: Sodium [Moles/Vol] 133 mmol/L 136-145 [facility] Work Phone: WBC (Bld) [#/Vol] 16.3 10*3/uL 4.4-11.0 [facility] Work Phone: Blood erythrocytes count (nu mber/volume)on 08-24-2021 RBC (Bld) [#/Vol] 4.38 10*6/uL 4.2-5.4 [facility] Work Phone: Blood hemoglobin measurement (mass/volume)on 08-24-2021 Hemoglobin (Bld) [Mass/Vol] 13.6 g/dL 12.0-15.0 [facility] Work Phone: Blood lymphocytes/100 leukoc yteson 08-24-2021 Lymphocytes/100 WBC (Bld) 5.8 % 19-41 [facility] Work Phone: Blood monocytes/100 leukocyt eson 08-24-2021 Monocytes/100 WBC (Bld) 5.1 % 0-10 [facility] Work Phone: Blood platelet mean volumeon 08-24-2021 Platelet mean volume (Bld) [Entitic vol] 9.0 fL 6.2-12.0 [facility] Work Phone: Determination of erythrocyte mean corpuscular volume (MCV)on 08-24-2021 MCV (RBC) [Entitic vol] 94.7 fL 81-99 [facility] Work Phone: Hematocrit Auto (Bld) [Volum e fraction]on 08-24-2021 Hematocrit (Bld) [Volume fraction] 41.5 % 37-47 [facility] Work Phone: Laboratory - Chemistry and C hemistry - challengeon 08-24-2021 CO2 [Moles/Vol] 20.0 mmol/L 21.0-32.0 [facility] Work Phone: [phone] Magnesium [Mass/Vol] 1.0 mg/dL 1.6-2.6 [facility] Work Phone: Urea nitrogen/Creatinine [Mass ratio] 17.4 mg/mg 10-20 [facility] Work Phone: Laboratory - Hematology and Cell countson 08-24-2021 Erythrocyte distribution width (RBC) [Entitic vol] 45.1 fL 35.1-43.9 [facility] Work Phone: Erythrocyte distribution width (RBC) [Ratio] 13.0 % 11.6-14.6 [facility] Work Phone: Immature granulocytes/100 WBC (Bld) 0.300 % 0.0-0.9 [facility] Work Phone: Comment on above: IG% - Immature Granu locytes (promyelocytes, myelocytes and metamyelocytes) > 1% indicates that a LEFT SHIFT is Present. MCH (RBC) [Entitic mass] 31.1 pg 27.0-32.0 [facility] Work Phone: Nucleated RBC/100 WBC (Bld) [Ratio] 0 % 0-5 [facility] Work Phone: MCHC Auto (RBC) [Mass/Vol]on 08-24-2021 MCHC (RBC) [Mass/Vol] 32.8 g/dL 32-36 [facility] Work Phone: No Panel Informationon 08-24 Estimated Creatinine Clearance Calc 80.15 ml/min [facility] Work Phone: Estimated GFR (MDRD) Amer 95 mL/min >60 [facility] Work Phone: Comment on above: GFR Calc Estimated GFR (MDRD) Non-Af Amer 79 mL/min >60 [facility] Work Phone: Comment on above: Non- GFR Calc Platelets bldon 08-24-2021 Platelets (Bld) [#/Vol] 380 10*3/uL 150-450 [facility] Work Phone: Serum or plasma calcium azul urement (mass/volume)on 08-24-2021 Calcium [Mass/Vol] 9.5 mg/dL 8.5-10.1 [facility] Work Phone: Serum or plasma creatinine m easurement (mass/volume)on 08-24-2021 Creatinine [Mass/Vol] 0.80 mg/dL 0.55-1.02 [facility] Work Phone: Comment on above: The validity of the calculated GFR & GFRAA in patients over 70 years has not been determined. Clinical correlation is essential. Serum or plasma urea nitroge n measurement (mass/volume)on 08-24-2021 Urea nitrogen [Mass/Vol] 14 mg/dL 7-18 [facility] Work Phone: Thin prep Papanicolaou smear with manual screeningon 08-24-2021 Thin prep Papanicolaou smear with manual screening 12 5-15 [facility] Work Phone: Absolute lymphocyte counton 08-23-2021 Lymphocytes Auto (Unsp spec) [#/Vol] 2.87 10*3/uL 0.83-4.51 [facility] Work Phone: Basophil percentageon 2021 Basophil percentage 50-100 SEEN /hpf [facility] Work Phone: Basophils/100 WBC (Bld) 0.4 % 0-1 [facility] Work Phone: Chloride [Moles/Vol] 98 mmol/L 98-107 [facility] Work Phone: Eosinophils/100 WBC (Bld) 0.8 % 0-5 [facility] Work Phone: Glucose [Mass/Vol] 179 mg/dL 74-106 [facility] Work Phone: Comment on above: Fasting Glucose resu lt greater than or equal to 126 mg/dL suggests DIABETES MELLITUS per A.D.A. criteria. Neutrophils (Bld) [#/Vol] 7.6 10*3/uL 2.0-7.7 [facility] Work Phone: Neutrophils/100 WBC (Bld) 65.3 % 47-70 [facility] Work Phone: Potassium [Moles/Vol] 3.9 mmol/L 3.5-5.1 [facility] Work Phone: Comment on above: Slight Hemolysis, Re sult may be falsely increased. Sodium [Moles/Vol] 133 mmol/L 136-145 [facility] Work Phone: WBC (Bld) [#/Vol] 11.7 10*3/uL 4.4-11.0 [facility] Work Phone: Bilirubin Test strip Ql (U)o n 08-23-2021 Bilirubin Ql (U) Negative Negative [facility] Work Phone: Blood erythrocytes count (nu mber/volume)on 08-23-2021 RBC (Bld) [#/Vol] 4.29 10*6/uL 4.2-5.4 [facility] Work Phone: Blood hemoglobin measurement (mass/volume)on 08-23-2021 Hemoglobin (Bld) [Mass/Vol] 13.2 g/dL 12.0-15.0 [facility] Work Phone: Blood lymphocytes/100 leukoc yteson 08-23-2021 Lymphocytes/100 WBC (Bld) 24.6 % 19-41 [facility] Work Phone: Blood monocytes/100 leukocyt eson 08-23-2021 Monocytes/100 WBC (Bld) 8.2 % 0-10 [facility] Work Phone: Blood platelet mean volumeon 08-23-2021 Platelet mean volume (Bld) [Entitic vol] 8.8 fL 6.2-12.0 [facility] Work Phone: Culture, urineon 08-23-2021 Bacteria identified Cx Nom (U) Escherichia coli [facility] Work Phone: Determination of erythrocyte mean corpuscular volume (MCV)on 08-23-2021 MCV (RBC) [Entitic vol] 93.0 fL 81-99 [facility] Work Phone: Hematocrit Auto (Bld) [Volum e fraction]on 08-23-2021 Hematocrit (Bld) [Volume fraction] 39.9 % 37-47 [facility] Work Phone: Ketones Test strip Ql (U)on 08-23-2021 Ketones Ql (U) 5 mg/dl Negative [facility] Work Phone: Laboratory - Chemistry and C hemistry - challengeon 08-23-2021 CO2 [Moles/Vol] 24.0 mmol/L 21.0-32.0 [facility] Work Phone: Urea nitrogen/Creatinine [Mass ratio] 11.0 mg/mg 10-20 [facility] Work Phone: Laboratory - Hematology and Cell countson 08-23-2021 Erythrocyte distribution width (RBC) [Entitic vol] 44.6 fL 35.1-43.9 [facility] Work Phone: Erythrocyte distribution width (RBC) [Ratio] 13.1 % 11.6-14.6 [facility] Work Phone: Immature granulocytes/100 WBC (Bld) 0.700 % 0.0-0.9 [facility] Work Phone: Comment on above: IG% - Immature Granu locytes (promyelocytes, myelocytes and metamyelocytes) > 1% indicates that a LEFT SHIFT is Present. MCH (RBC) [Entitic mass] 30.8 pg 27.0-32.0 [facility] Work Phone: Nucleated RBC/100 WBC (Bld) [Ratio] 0 % 0-5 [facility] Work Phone: MCHC Auto (RBC) [Mass/Vol]on 08-23-2021 MCHC (RBC) [Mass/Vol] 33.1 g/dL 32-36 [facility] Work Phone: Mucus LM Ql (Urine sed)on Mucus Ql (Urine sed) RARE /hpf [facility] Work Phone: Nitrite Test strip Ql (U)on 08-23-2021 Nitrite Ql (U) Positive Negative [facility] Work Phone: No Panel Informationon 08-23 Estimated Creatinine Clearance Calc 41.37 ml/min [facility] Work Phone: Estimated GFR (MDRD) Amer 45 mL/min >60 [facility] Work Phone: Comment on above: GFR Calc Estimated GFR (MDRD) Non-Af Amer 37 mL/min >60 [facility] Work Phone: Comment on above: Non- GFR Calc Troponin I High Sensitivity 4 pg/mL 3.0-54.0 [facility] Work Phone: Comment on above: Please Note: New Hodan t Units and Gender Specific Reference Ranges. For more information see Policy Stat Procedure [place] High Sensitivity Troponin (TNIH) and attachments. Platelets bldon 08-23-2021 Platelets (Bld) [#/Vol] 378 10*3/uL 150-450 [facility] Work Phone: Protein Test strip Ql (U)on 08-23-2021 Protein Ql (U) 30 mg/dl Negative [facility] Work Phone: Serum or plasma calcium azul urement (mass/volume)on 08-23-2021 Calcium [Mass/Vol] 10.6 mg/dL 8.5-10.1 [facility] Work Phone: Serum or plasma creatinine m easurement (mass/volume)on 08-23-2021 Creatinine [Mass/Vol] 1.55 mg/dL 0.55-1.02 [facility] Work Phone: Comment on above: The validity of the calculated GFR & GFRAA in patients over 70 years has not been determined. Clinical correlation is essential. Serum or plasma urea nitroge n measurement (mass/volume)on 08-23-2021 Urea nitrogen [Mass/Vol] 17 mg/dL 7-18 [facility] Work Phone: Squamous epithelial cells de tection in urine sediment by light microscopyon 08-23-2021 Epithelial cells.squamous LM Ql (Urine sed) 0-5 SEEN /hpf [facility] Work Phone: Thin prep Papanicolaou smear with manual screeningon 08-23-2021 Thin prep Papanicolaou smear with manual screening 11 5-15 [facility] Work Phone: Urine blood detectionon 08-05 RBC Ql (U) 10 /ul Negative [facility] Work Phone: RBC Ql (U) 0-5 SEEN /hpf [facility] Work Phone: Urine clarityon 08-23-2021 Clarity (U) Cloudy Clear [facility] Work Phone: Urine color determinationon 08-23-2021 Color (U) Yellow Yellow [facility] Work Phone: Urine glucose detectionon Glucose Ql (U) Normal mg/dl Normal [facility] Work Phone: Urine leukocyte esterase det ection by dipstickon 08-23-2021 Leukocyte esterase Test strip Ql (U) 500 /ul Negative [facility] Work Phone: Urine pHon 08-23-2021 pH (U) 5.0 [pH] [facility] Work Phone: Urine sediment bacteria coun t by microscopy (number/high power field)on 08-23-2021 Bacteria LM.HPF (Urine sed) [#/Area] 4 /[HPF] None Seen [facility] Work Phone: Urine specific gravity measu rementon 08-23-2021 Specific gravity (U) [Rel density] 1.020 [facility] Work Phone: Urobilinogen Auto test strip Ql (U)on 08-23-2021 Urobilinogen Ql (U) Normal mg/dl Normal [facility] Work Phone: XR Shoulder - left 3 Viewson 06-05-2021 Radiology Study observation (narrative) [facility] IMPRESSION: 1. No significant left shoulder abnormality Survey Statistician: FERCHO Transcribe Date/Time: Jun 05 2021 10:22A Dictated by : NILDA GAYTAN MD This examination was interpreted and the report reviewed and electronically signed by: NILDA GAYTAN MD on Jun 05 2021 10:24AM [facility] DIVISION OF RADIOLOGY * * [...] lower cervical spine. DIVISION OF RADIOLOGY Provider, [facility] - 06/05/2021 * * *Final Report* * [...] IMPRESSION: 1. No significant left shoulder abnormality Survey Statistician: [facility] Transcribe Date/Time: Jun 05 2021 10:22A Dictated by : NILDA GAYTAN MD This examination was interpreted and the report reviewed and electronically signed by: NILDA GAYTAN MD on Jun 05 2021 10:24AM [facility] XR Shoulder - left 3 ViewsOr dered By: [facility] Provider on 06-05-[address] [facility] ANES POSTPROC EVALon 09-29-2 021 ANES POSTPROC EVAL HNO ID: [id number] Author: Reymundo Gonzalez MD Service: ? Author Type: Physician Type: Anesthesia Postprocedure Evaluation Filed: 05/02/2021 2:04 PM Note Text: POST ANESTHESIA EVALUATION NOTE : 1965 Procedure Summary Date: 05/02/21 [facility] Anesthesia Start: 1046 Anesthesia Stop: 1156 Procedure: [...] May 02, 2021 TIME: 2:04 PM CSN: [id number] [facility] ANES PRE-OPon 05-02-2021 ANES PRE-OP HNO ID: [id number] Author: Richie Tao III, MD Service: Anesthesiology [...] May 02, 2021 TIME: 10:16 AM CSN: [id number] [facility] BRIEF OP NOTon 05-02-2021 BRIEF OP NOT HNO ID: [id number] Author: Riana Brown MD Service: Orthopaedic Surgery Author Type: Fellow Type: Brief Op Note Filed: 05/02/2021 11:56 AM Note Text: BRIEF OPERATIVE NOTE SURGERY DATE: 05/02/2021 Incision/Procedure Start Time: 11:13am Incision Close/Procedure End Time: 11:48am Surgeon(s)/Proceduralist(s) and Milk Truck Driver(s): Sam Jones MD, attending Riana Brown MD [...] DATE: May 02, 2021 TIME: 8:56 AM [facility] HISTORY PHYSICALon HISTORY PHYSICAL HNO ID: [id number] Author: Riana Brown MD Service: Orthopaedic Surgery [...] DATE: May 02, 2021 TIME: 8:56 AM [facility] NURSING PROGon 05-02-2021 NURSING PROG HNO ID: [id number] Author: Ama Dang RN Service: Nursing Author Type: Registered Nurse Type: Nursing Progress Note Filed: 05/02/2021 12:23 PM Note Text: PATIENT EDUCATION TOPIC: PROCEDURE / SURGERY: Post-op Teaching: Med Administration, Symptom Management and Wound Care PATIENT NAME: Chrissy Lay [facility] [place] READINESS TO LEARN COGNITIVE ABILITY: Alert and [...] (RECOMMENDATION): None Electronically Signed By: Ama Dang [facility] NURSING PROG HNO ID: [id number] Author: Ama Dang RN Service: Nursing Author Type: Registered Nurse Type: Nursing Progress Note Filed: 05/02/2021 12:22 PM Note Text: Patient and significant other speaking with Dr. Jones at this time. Vital signs remain stable, will continue to monitor. [facility] NURSING PROG HNO ID: [id number] Author: Shana Rene RN Service: Nursing Author Type: Registered Nurse Type: Nursing Progress Note Filed: 05/02/2021 9:49 AM Note Text: CHEPE Presley at bedside speaking with pt. Gildardo is aware of pt's c/o., awaiting urine results from pt's PCP. [facility] NURSING PROG HNO ID: [id number] Author: Shana Rene RN Service: Nursing Author [...] and dry. aware of the above c/o. [facility] NURSING PROG HNO ID: [id number] Author: Shana Rene RN Service: Nursing Author [...] Signed By: Shana Rene RN In Department: [facility] AMBULAT[facility] SURGERY - [facility] OPERATIVE NOon 05-02-2021 OPERATIVE NO HNO ID: [id number] Author: Sam Jones MD Service: Orthopaedic Surgery Author Type: Physician Type: Operative Report Filed: 05/02/2021 12:00 PM Note Text: Chrissy Lay [id number] LOG ID: [id number] Surgery/Procedure Date: 05/02/2021 Incision/Procedure Start Time: 11:13 AM Incision Close/Procedure End Time: 11:48 AM Surgeon(s)/Proceduralist(s) and Milk Truck Driver(s): Surgeon(s) and Role: * Sam Jones MD - Primary * Riana Brown MD - Fellow Physician Milk Truck Driver: Laverne Duong PA-C Anesthesia: General Pre-Op/Pre-Procedure Diagnosis: [...] 02, 2021 TIME: 11:56 AM PAGER/CONTACT #: Normal [facility] APTTon 02-21-2017 aPTT 22.2 s Normal 20.0-30.5 [facility] Comment on above: Result Comment: NOTE : The therapeutic time for Heparin anticoagulation,based on Xa activity inhibition, is an APTT of 46-80seconds. Performed By: #### H EMOG, APTT, PT, TROPN, CK3 ####[address] [place] [address] BMP, Whole Blood (POCT)on Anion gap 8.00 mmol/L Normal [facility] Comment on above: Performed By: #### B MPI ####[address] [place] [address] BUN (urea nitrogen) 13 mg/dL Normal 4-22 [facility] Comment on above: Performed By: #### B MPI ####[address] [address] Calcium, Ionized WB 4.5 mg/dL Normal 4.3-5.2 [facility] Comment on above: Result Comment: Perf ormed by [employer] CLIA ID: [id number], [place] Performed By: #### B MPI ####[address] [place] [address] Chloride 102 mmol/L Normal 98-114 [facility] Comment on above: Performed By: #### B MPI ####[address] [place] [address] CO2 28 mmol/L Normal 21-29 [facility] Comment on above: Performed By: #### B MPI ####[address] [place] [address] Creatinine 0.70 mg/dL Normal 0.60-1.30 [facility] Comment on above: Performed By: #### B MPI ####[address] [place] [address] eGFR (black) mL/min/{1.73_m2} Normal >60 [facility] Comment on above: Performed By: #### B MPI ####[place] [address] [address] eGFR (non-black) mL/min/{1.73_m2} Normal >60 [facility] Comment on above: Result Comment: Sour ce- MDRD equation with creatinine calibration to IDMS(NKDEP)eGFR not recommended for drug dose adjustment Performed By: #### B MPI ####[address] [address] Glucose mass conc 189 mg/dL High 70-100 [facility] Comment on above: Performed By: #### B MPI ####[address] [address] Potassium molar conc 4.0 mmol/L Normal 3.4-5.1 [facility] Comment on above: Performed By: #### B MPI ####[place] [address] Sodium 138 mmol/L Normal 133-145 [facility] Comment on above: Performed By: #### B MPI ####[place] [address] CKon 02-21-2017 Creatine kinase (CK) 57 U/L Normal 26-192 [facility] Comment on above: Performed By: #### H EMOG, APTT, PT, TROPN, CK3 ####[place] [address] CT Head or Brain w/o Contras ton 02-21-2017 CT Head or Brain w/o Contrast Patient Name: CHRISSY LAY CT Exam Date/Time 02/20/2017 22:07:[address] Head or Brain w/o Contrast Ordering Physician BRANDON KIRK Accession Number [id number] CPT4 Codes 94508 () Reason For Exam Stroke like symptoms [...] Transcribed Date and Time: 02/20/2017 10:24 Normal [facility] CULTURE URINEon 02-21-2017 CULTURE URINE Specimen Source Comment:Urine, clean catch [facility] Patient name: CHRISSY LAY M.R.N.: [id number] : 1965 Age: 51 Sex: F Ord. Physician: NENA VILLAR Location: 1EDE-1E Copy to: NENA VILLAR DISCHARGED: 02/21/17 Adm. Date: 02/20/17 MICROBIOLOGYORDER#: [id number] COLLECTED: 02/20/17 22:36SOURCE: Urine Urine OE C O M M E N T S Specimen Source Comment:Urine, clean catchCULTURE URINE FINAL 02/21/17 23:51002/21/17No growth (<1,000 CFU/ml). Normal [facility] Comment on above: Performed By: #### B GLU ####[address] [address] Glucose,Bedsideon 02-21-2017 Glucose mass conc 167 mg/dL High 70-100 [facility] Comment on above: Result Comment: Test performed by glucose meter. Results may be 10%-15% lowerthan serum/plasma values. (CLIA ID [id number]) Performed By: #### B GLU ####[place] [address] Hemogramon 02-21-2017 Erythrocyte distribution width Auto Ratio (RBC) 13.8 % Normal 11.5-14.5 [facility] Comment on above: Performed By: #### H EMOG, APTT, PT, TROPN, CK3 ####[place] [address] Erythrocytes (RBC) 4.41 10*6/uL Normal 3.80-5.20 [facility] Comment on above: Performed By: #### H EMOG, APTT, PT, TROPN, CK3 ####[place] [address] Hematocrit (HCT) 40.1 % Normal 35.0-47.0 [facility] Comment on above: Performed By: #### H EMOG, APTT, PT, TROPN, CK3 ####[place] [address] Hemoglobin mass conc (Bld) 13.2 g/dL Normal 11.7-16.0 [facility] Comment on above: Performed By: #### H EMOG, APTT, PT, TROPN, CK3 ####[place] [address] MCH 29.9 pg Normal 26.0-34.0 [facility] Comment on above: Performed By: #### H EMOG, APTT, PT, TROPN, CK3 ####[place] [address] MCHC mass conc (RBC) 32.9 % Normal 32.0-36.0 [facility] Comment on above: Performed By: #### H EMOG, APTT, PT, TROPN, CK3 ####[place] [address] MCV 90.8 fL Normal 79.0-98.0 [facility] Comment on above: Performed By: #### H EMOG, APTT, PT, TROPN, CK3 ####[place] [address] Platelet mean volume (PMV) 7.6 fL Normal 7.4-10.4 [facility] Comment on above: Performed By: #### H EMOG, APTT, PT, TROPN, CK3 ####[place] [address] Platelets 322 10*3/uL Normal 140-440 [facility] Comment on above: Performed By: #### H EMOG, APTT, PT, TROPN, CK3 ####[place] [address] WBC (Leukocytes) 8.7 10*3/uL Normal 3.6-10.7 [facility] Comment on above: Performed By: #### H EMOG, APTT, PT, TROPN, CK3 ####[place] [address] Prothrombin Timeon 02-21- 7 INR Coag RelTime (PPP) 0.9 {INR} Normal 0.9-1.1 [facility] Comment on above: Result Comment: Sarbjit [...] #### H EMOG, APTT, PT, TROPN, CK3 ####[place] [address] Prothrombin time (PT) Coag time (PPP) 9.4 s Normal 9.0-12.0 [facility] Comment on above: Result Comment: . Performed By: #### H EMOG, APTT, PT, TROPN, CK3 ####[address] [address] Troponin Ion 02-21-2017 Troponin I.cardiac mass conc ng/mL Normal 0.000-0.045 [facility] Comment on above: Result Comment: 0.04 6 - 0.400 = Indeterminate> 0.400 = Consider Myocardial Injury Performed By: #### H EMOG, APTT, PT, TROPN, CK3 ####[address] [address] Urinalysis,Macroon 7 Bilirubin (direct) Negative Normal Negative [facility] Comment on above: Performed By: #### U AMAC, UAMIC ####[address] [address] Ketone,Urine Negative Normal Negative [facility] Comment on above: Performed By: #### U AMAC, UAMIC ####[place] [address] Occult Blood,Ur 25 {RBC}/uL Normal Negative [facility] Comment on above: Performed By: #### U AMAC, UAMIC ####[address] [address] Specific [place],Urine 1.010 Normal 1.005-1.030 [facility] Comment on above: Performed By: #### U AMAC, UAMIC ####[address] [address] Total Protein,Urine Negative Normal Negative [facility] Comment on above: Performed By: #### U AMAC, UAMIC ####[address] [place] [address] Urine, appearance clear Normal Clear [facility] Comment on above: Performed By: #### U AMAC, UAMIC ####[address] [address] Urine, color p. yel Normal Lt. Yellow [facility] Comment on above: Performed By: #### U AMAC, UAMIC ####[address] [address] Urine, glucose presence NORM Normal Negative [facility] Comment on above: Performed By: #### U AMAC, UAMIC ####[address] [place] [address] Urine, nitrite presence Negative Normal Negative [facility] Comment on above: Performed By: #### U AMAC, UAMIC ####[address] [place] [address] Urine, pH 7.0 [pH] Normal 5.0-8.0 [facility] Comment on above: Performed By: #### U AMAC, UAMIC ####[address] [place] [address] Urine, urobilinogen NORM Normal 0-1 [facility] Comment on above: Performed By: #### U AMAC, UAMIC ####[address] [place] [address] WBC (Leukocytes) Negative Normal Negative [facility] Comment on above: Performed By: #### U AMAC, UAMIC ####[address] [place] [address] Urinalysis,Microscopicon Urine, bacteria in sediment Few (1-5) Normal Negative [facility] Comment on above: Performed By: #### U AMAC, UAMIC ####[address] [place] [address] Urine, epithelial cells in sediment 0-2 Normal 3-5 [facility] Comment on above: Performed By: #### U AMAC, UAMIC ####[address] [place] [address] Urine, erythrocytes in sediment by area 0-2 Normal 0-2 [facility] Comment on above: Performed By: #### U AMAC, UAMIC ####[address] [place] [address] Urine, leukocytes in sedmiment 0-2 Normal 0-5 [facility] Comment on above: Performed By: #### U AMAC, UAMIC ####[address] [place] [address] Lab Report: Bedside Glucoseo n 12-24-2016 Glucose 130 mg/dL High 70-110 [facility] Work Phone: Office Visit: Consult Colono scopy and EGDon 12-18-2016 Dietary management education, guidance, and counseling (procedure) yes Invalid Interpretation Code [facility] Work Phone: Documentation of current medications (procedure) Done Invalid Interpretation Code [facility] Work Phone: Fall risk assessment No Invalid Interpretation Code [facility] Work Phone: Tobacco smoking status NHIS Never Invalid Interpretation Code [facility] Work Phone: Tobacco smoking status NHIS Never smoker [facility] Work Phone: Tobacco use HS Never smoker Invalid Interpretation Code [facility] Work Phone: Office Visit: Consult Colono scopy and EGDon 08-07-2015 MG Breast screening Normal Bilateral Invalid Interpretation Code [facility] Work Phone: Office Visit: Consult Colono scopy and EGDon 08-08-2014 General categories Cyto stain (Cvx/Vag) [Interp] Normal Invalid Interpretation Code [facility] Work Phone: Culture, urine Bacteria identified Cx Nom (U) Escherichia coli [facility] Work Phone: No Panel Information [facility] Vital Signs Date Time Vital Sign Value Performing Clinician Facility 08-14-2024 11:20-0500 Body temperature 98.42 [degF] ROSA BADILLO CARE SUPPORT REPRESENTATIVE-ROTARY DRILL RIG OPERATOR [facility] 08-14-2024 11:20-0500 Diastolic Blood Pressure Non-Invasive 79 mm[Hg] ROSA BADILLO CARE SUPPORT REPRESENTATIVE-ROTARY DRILL RIG OPERATOR [facility] 08-14-2024 11:20-0500 Heart rate 88 /min ROSA BADILLO APRN-ROTARY DRILL RIG OPERATOR [facility] 08-14-2024 11:20-0500 Reason For Taking VItal Signs ROSA BADILLO CARE SUPPORT REPRESENTATIVE-ROTARY DRILL RIG OPERATOR [facility] 08-14-2024 11:20-0500 Respiratory rate 18 /min ROSA ROSEER CARE SUPPORT REPRESENTATIVE-ROTARY DRILL RIG OPERATOR [facility] 08-14-2024 11:20-0500 Systolic Blood Pressure Non-Invasive 146 mm[Hg] ROSA MILTONER CARE SUPPORT REPRESENTATIVE-ROTARY DRILL RIG OPERATOR [facility] 08-14-2024 07:20-0500 Body temperature 98.24 [degF] ROSA KAPPER CARE SUPPORT REPRESENTATIVE-ROTARY DRILL RIG OPERATOR [facility] 08-14-2024 07:20-0500 Diastolic Blood Pressure Non-Invasive 89 mm[Hg] ROSA MILTONER CARE SUPPORT REPRESENTATIVE-ROTARY DRILL RIG OPERATOR [facility] 08-14-2024 07:20-0500 Heart rate 78 /min ROSA MILTONER CARE SUPPORT REPRESENTATIVE-ROTARY DRILL RIG OPERATOR [facility] 08-14-2024 07:20-0500 Reason For Taking VItal Signs ROSA ROSEER CARE SUPPORT REPRESENTATIVE-ROTARY DRILL RIG OPERATOR [facility] 08-14-2024 07:20-0500 Respiratory rate 18 /min ROSA MILTONER CARE SUPPORT REPRESENTATIVE-ROTARY DRILL RIG OPERATOR [facility] 08-14-2024 07:20-0500 Systolic Blood Pressure Non-Invasive 137 mm[Hg] ROSA ROSEER CARE SUPPORT REPRESENTATIVE-ROTARY DRILL RIG OPERATOR [facility] 08-14-2024 03:35-0500 Body temperature 98.24 [degF] ROSA KAPPER CARE SUPPORT REPRESENTATIVE-ROTARY DRILL RIG OPERATOR [facility] 08-14-2024 03:35-0500 Diastolic Blood Pressure Non-Invasive 76 mm[Hg] ROSA MILTONER CARE SUPPORT REPRESENTATIVE-ROTARY DRILL RIG OPERATOR [facility] 08-14-2024 03:35-0500 Heart rate 86 /min ROSA ROSEER CARE SUPPORT REPRESENTATIVE-ROTARY DRILL RIG OPERATOR [facility] 08-14-2024 03:35-0500 Reason For Taking VItal Signs ROSA BADILLO CARE SUPPORT REPRESENTATIVE-ROTARY DRILL RIG OPERATOR [facility] 08-14-2024 03:35-0500 Respiratory rate 18 /min ROSA BADILLO CARE SUPPORT REPRESENTATIVE-ROTARY DRILL RIG OPERATOR [facility] 08-14-2024 03:35-0500 Systolic Blood Pressure Non-Invasive 138 mm[Hg] ROSA BADILLO CARE SUPPORT REPRESENTATIVE-ROTARY DRILL RIG OPERATOR [facility] 08-12-2024 21:43-0500 Body height 172.7 cm ROAS BADILLO CARE SUPPORT REPRESENTATIVE-ROTARY DRILL RIG OPERATOR [facility] 08-12-2024 21:43-0500 Body weight 102 kg ROSA BADILLO CARE SUPPORT REPRESENTATIVE-ROTARY DRILL RIG OPERATOR [facility] 08-12-2024 21:43-0500 Body weight 34.2 kg/m2 ROSA ROSEER CARE SUPPORT REPRESENTATIVE-ROTARY DRILL RIG OPERATOR [facility] 08-12-2024 11:55-0500 Body weight 121 kg ROSA BADILLO CARE SUPPORT REPRESENTATIVE-ROTARY DRILL RIG OPERATOR [facility] 08-12-2024 11:55-0500 Heart rate 103 /min ROSA BADILLO CARE SUPPORT REPRESENTATIVE-ROTARY DRILL RIG OPERATOR [facility] 05-27-2022 14:35-0400 Body temperature 97.2 [degF] Dr. Karl Pichardo Work Phone: [facility] Work Phone: 05-27-2022 14:35-0400 Body weight 87.[address] Karl Pichardo Work Phone: [facility] Work Phone: 05-27-2022 14:35-0400 Diastolic blood pressure 93 mm[Hg] Dr. Karl Pichardo Work Phone: [facility] Work Phone: 05-27-2022 14:35-0400 Heart rate 92 /min Dr. Karl Pichardo Work Phone: [facility] Work Phone: 05-27-2022 14:35-0400 Respiratory rate 16 /min Dr. Karl Pichardo Work Phone: [facility] Work Phone: 05-27-2022 14:35-0400 SaO2% (BldA) [Mass fraction] 98 % Dr. Karl Pichardo Work Phone: [facility] Work Phone: 05-27-2022 14:35-0400 Systolic blood pressure 150 mm[Hg] Dr. Karl Pichardo Work Phone: [facility] Work Phone: 04-15-2022 15:10-0400 Body temperature 97.8 [degF] Dr. Karl Pichardo Work Phone: [facility] Work Phone: 04-15-2022 15:10-0400 Diastolic blood pressure 74 mm[Hg] Dr. Karl Pichardo Work Phone: [facility] Work Phone: 04-15-2022 15:10-0400 Heart rate 102 /min Dr. Karl Pichardo Work Phone: [facility] Work Phone: 04-15-2022 15:10-0400 Respiratory rate 14 /min Dr. Karl Pichardo Work Phone: [facility] Work Phone: 04-15-2022 15:10-0400 SaO2% (BldA) [Mass fraction] 99 % Dr. Karl Pichardo Work Phone: [facility] Work Phone: 04-15-2022 15:10-0400 Systolic blood pressure 126 mm[Hg] Dr. Karl Pichardo Work Phone: [facility] Work Phone: 04-04-2022 16:31-0400 Diastolic blood pressure 76 mm[Hg] Dr. Karl Pichardo Work Phone: [facility] Work Phone: 04-04-2022 16:31-0400 Heart rate 96 /min Dr. Karl Pichardo Work Phone: [facility] Work Phone: 04-04-2022 16:31-0400 Respiratory rate 16 /min Dr. Karl Pichardo Work Phone: [facility] Work Phone: 04-04-2022 16:31-0400 SaO2% (BldA) [Mass fraction] 97 % Dr. Karl Pichardo Work Phone: [facility] Work Phone: 04-04-2022 16:31-0400 Systolic blood pressure 119 mm[Hg] Dr. Karl Picharod Work Phone: [facility] Work Phone: 04-04-2022 14:13-0400 Body height 172.[address] Karl Pichardo Work Phone: [facility] Work Phone: 04-04-2022 14:13-0400 Body mass index (BMI) [Ratio] 28.1 kg/m2 Dr. Karl Pichardo Work Phone: [facility] Work Phone: 04-04-2022 14:13-0400 Body temperature 96.1 [degF] Dr. Karl Pichardo Work Phone: [facility] Work Phone: 04-04-2022 14:13-0400 Body weight 83.[address] Karl Pichardo Work Phone: [facility] Work Phone: 03-28-2022 15:40-0400 Body temperature 98.3 [degF] Dr. Karl Pichardo Work Phone: [facility] Work Phone: 03-28-2022 15:40-0400 Body weight 83.[address] Karl Pichardo Work Phone: [facility] Work Phone: 03-28-2022 15:40-0400 Diastolic blood pressure 86 mm[Hg] Dr. Karl Pichardo Work Phone: [facility] Work Phone: 03-28-2022 15:40-0400 Heart rate 88 /min Dr. Karl Pichardo Work Phone: [facility] Work Phone: 03-28-2022 15:40-0400 Respiratory rate 16 /min Dr. Karl Pichardo Work Phone: [facility] Work Phone: 03-28-2022 15:40-0400 SaO2% (BldA) [Mass fraction] 99 % Dr. Karl Pichardo Work Phone: [facility] Work Phone: 03-28-2022 15:40-0400 Systolic blood pressure 140 mm[Hg] Dr. Karl Pichardo Work Phone: [facility] Work Phone: 03-13-2022 11:14-0400 Body temperature 97.7 [degF] Dr. Karl Pichardo Work Phone: [facility] Work Phone: 03-13-2022 11:14-0400 Diastolic blood pressure 84 mm[Hg] Dr. Karl Pichardo Work Phone: [facility] Work Phone: 03-13-2022 11:14-0400 Heart rate 92 /min Dr. Karl Pichardo Work Phone: [facility] Work Phone: 03-13-2022 11:14-0400 Respiratory rate 14 /min Dr. Karl Pichardo Work Phone: [facility] Work Phone: 03-13-2022 11:14-0400 SaO2% (BldA) [Mass fraction] 98 % Dr. Karl Pichardo Work Phone: [facility] Work Phone: 03-13-2022 11:14-0400 Systolic blood pressure 138 mm[Hg] Dr. Karl Pichardo Work Phone: [facility] Work Phone: 03-13-2022 10:55-0400 Body height 172.[address] Karl Pichardo Work Phone: [facility] Work Phone: 03-11-2022 19:43-0400 Diastolic blood pressure 81 mm[Hg] Dr. Karl Pichardo Work Phone: [facility] Work Phone: 03-11-2022 19:43-0400 Heart rate 81 /min Dr. Karl Pichardo Work Phone: [facility] Work Phone: 03-11-2022 19:43-0400 Respiratory rate 16 /min Dr. Karl Pichardo Work Phone: [facility] Work Phone: 03-11-2022 19:43-0400 SaO2% (BldA) [Mass fraction] 97 % Dr. Karl Pichardo Work Phone: [facility] Work Phone: 03-11-2022 19:43-0400 Systolic blood pressure 128 mm[Hg] Dr. Karl Pichardo Work Phone: [facility] Work Phone: 03-11-2022 19:00-0400 Body temperature 97.9 [degF] Dr. Karl Pichardo Work Phone: [facility] Work Phone: 03-11-2022 15:20-0400 Body height 172.[address] Karl Pichardo Work Phone: [facility] Work Phone: 03-11-2022 15:20-0400 Body mass index (BMI) [Ratio] 27.6 kg/m2 Dr. Karl Pichardo Work Phone: [facility] Work Phone: 03-11-2022 15:20-0400 Body weight 82.[address] Karl Pichardo Work Phone: [facility] Work Phone: 03-11-2022 14:31-0400 Body temperature 98.5 [degF] Dr. Karl Pichardo Work Phone: [facility] Work Phone: 03-11-2022 14:31-0400 Diastolic blood pressure 76 mm[Hg] Dr. Karl Pichardo Work Phone: [facility] Work Phone: 03-11-2022 14:31-0400 Heart rate 99 /min Dr. Karl Pichardo Work Phone: [facility] Work Phone: 03-11-2022 14:31-0400 Respiratory rate 14 /min Dr. Karl Pichardo Work Phone: [facility] Work Phone: 03-11-2022 14:31-0400 SaO2% (BldA) [Mass fraction] 99 % Dr. Karl Pichardo Work Phone: [facility] Work Phone: 03-11-2022 14:31-0400 Systolic blood pressure 126 mm[Hg] Dr. Karl Pichardo Work Phone: [facility] Work Phone: 03-04-2022 16:02-0400 Body height 172.7 cm Andry Dunne MD Work Phone: [facility] 03-04-2022 16:02-0400 Body weight 79.38 kg Andry Dunne MD Work Phone: [facility] 11-24-2021 11:54-0400 Heart rate 100 /min [facility] Work Phone: 11-24-2021 11:54-0400 Respiratory rate 18 /min [facility] Work Phone: 11-24-2021 11:54-0400 SaO2% (BldA) [Mass fraction] 99 % [facility] Work Phone: 11-24-2021 09:58-0400 Body height 172.72 cm [facility] Work Phone: 11-24-2021 09:58-0400 Body mass index (BMI) [Ratio] 26.6 kg/m2 [facility] Work Phone: 11-24-2021 09:58-0400 Body temperature 97.8 [degF] [facility] Work Phone: 11-24-2021 09:58-0400 Body weight 79.37 kg [facility] Work Phone: 11-24-2021 09:58-0400 Diastolic blood pressure 91 mm[Hg] [facility] Work Phone: 11-24-2021 09:58-0400 Systolic blood pressure 160 mm[Hg] [facility] Work Phone: 09-24-2021 15:11-0500 Body temperature 97 [degF] [facility] Work Phone: 09-24-2021 15:11-0500 Diastolic blood pressure 88 mm[Hg] [facility] Work Phone: 09-24-2021 15:11-0500 Heart rate 101 /min [facility] Work Phone: 09-24-2021 15:11-0500 Respiratory rate 17 /min [facility] Work Phone: 09-24-2021 15:11-0500 SaO2% (BldA) [Mass fraction] 97 % [facility] Work Phone: 09-24-2021 15:11-0500 Systolic blood pressure 154 mm[Hg] [facility] Work Phone: 09-24-2021 11:55-0500 Body mass index (BMI) [Ratio] 26.6 kg/m2 [facility] Work Phone: 09-24-2021 11:55-0500 Body weight 79.37 kg [facility] Work Phone: 08-25-2021 03:21-0500 Diastolic blood pressure 72 mm[Hg] [facility] Work Phone: 08-25-2021 03:21-0500 Heart rate 78 /min [facility] Work Phone: 08-25-2021 03:21-0500 Respiratory rate 16 /min [facility] Work Phone: 08-25-2021 03:21-0500 SaO2% (BldA) [Mass fraction] 97 % [facility] Work Phone: 08-25-2021 03:21-0500 Systolic blood pressure 128 mm[Hg] [facility] Work Phone: 08-24-2021 20:42-0500 Body mass index (BMI) [Ratio] 26.6 kg/m2 [facility] Work Phone: 08-24-2021 20:42-0500 Body temperature 98.8 [degF] [facility] Work Phone: 08-24-2021 20:42-0500 Body weight 79.37 kg [facility] Work Phone: 08-23-2021 16:12-0500 Diastolic blood pressure 85 mm[Hg] [facility] Work Phone: 08-23-2021 16:12-0500 Heart rate 96 /min [facility] Work Phone: 08-23-2021 16:12-0500 Respiratory rate 16 /min [facility] Work Phone: 08-23-2021 16:12-0500 SaO2% (BldA) [Mass fraction] 97 % [facility] Work Phone: 08-23-2021 16:12-0500 Systolic blood pressure 119 mm[Hg] [facility] Work Phone: 08-23-2021 11:18-0500 Body mass index (BMI) [Ratio] 27.6 kg/m2 [facility] Work Phone: 08-23-2021 11:18-0500 Body weight 82.5 kg [facility] Work Phone: 08-23-2021 10:23-0500 Body temperature 95.9 [degF] [facility] Work Phone: 12-18-2016 10:50-0400 BMI (Body Mass Index) 29.8 kg/m2 Rita Unger RN RN [facility] [place] Work Phone: 12-18-2016 10:50-0400 Body Temperature 98.3 [degF] Rita Unger RN RN [facility] [place] Work Phone: 12-18-2016 10:50-0400 Body Temperature 98.29 [degF] Rita Unger RN RN [facility] [place] Work Phone: 12-18-2016 10:50-0400 Body weight 88.91 kg Rita Unger RN RN [facility] [place] Work Phone: 12-18-2016 10:50-0400 Body weight 88.9 kg Rita Unger RN RN [facility] [place] Work Phone: 12-18-2016 10:50-0400 BP Diastolic 91 mm[Hg] Rita Unger RN RN [facility] Work Phone: 12-18-2016 10:50-0400 BP Systolic 127 mm[Hg] Rita Unger RN RN [facility] Work Phone: 12-18-2016 10:50-0400 BSA (Body Surface Area) 2.03 m2 Rita Unger RN RN [facility] Work Phone: 12-18-2016 10:50-0400 Height 172.72 cm Rita Unger RN RN [facility] Work Phone: 12-18-2016 10:50-0400 Pulse (Heart Rate) 101 /min Rita Unger RN RN [facility] Work Phone: 12-18-2016 10:50-0400 Pulse Oximetry 99 % Rita Unger RN RN [facility] Work Phone: 12-18-2016 10:50-0400 Respiratory Rate 16 /min Rita Unger RN RN [facility] Work Phone: 12-18-2016 10:50-0400 Weight 88.91 kg Rita Unger RN RN [facility] Work Phone: 12-18-2016 10:50-0400 Weight 88.9 kg Rita Unger RN RN [facility] Work Phone: Encounters Encounter Date Encounter Type Care Provider Facility Start: 04-08-2025 End: 04-08-[address] REBEKAH MCGUIRE DO [facility] Start: 02-01-2025 ambulatory Ame Eastman HEALTH TECHNICIAN Facili ty:[facility] Start: 01-31-2025 ambulatory Simon Kelley [facility] Start: 01-31-2025 End: 01-31-2025 ambulatory Ame Eastman NP Facility:[facility] Start: 01-17-2025 End: 01-17-2025 ambulatory Chantale Ramsey HEALTH TECHNICIAN Facility:[facility] Start: 01-13-2025 ambulatory Simon Kelley [facility] Start: 01-13-2025 End: 01-13-2025 ambulatory Ame Eastman HEALTH TECHNICIAN Facility:[facility] Start: 01-07-2025 End: 01-07-2025 ambulatory Chantale Ramsey HEALTH TECHNICIAN Facility:[facility] Start: 01-06-2025 End: 01-07-2025 ambulatory PHY WO ID REFERRING Facility:[facility] Start: 01-06-2025 End: 01-06-2025 Patient encounter procedure PHY WO ID REFERRING [facility] Start: 12-23-2024 End: 12-23-2024 Emergency department patient visit Sherylus Linareskaycee Facility:[facility] Start: 12-21-2024 End: 12-21-2024 ambulatory Chantale Ramsey HEALTH TECHNICIAN Facility:[facility] Start: 12-01-2024 End: 12-01-2024 ambulatory Chantale Ramsey HEALTH TECHNICIAN Facility:[facility] Start: 11-07-2024 End: 11-07-2024 Emergency department patient visit Chantale Ramsey NP Facility:[facility] Start: 10-26-2024 End: 10-30-2024 ambulatory CHANTALE RAMSEY CARE SUPPORT REPRESENTATIVE-ROTARY DRILL RIG OPERATOR Facility:[facility] Start: 10-20-2024 End: 10-20-2024 ambulatory Chantale Ramsey HEALTH TECHNICIAN Facility:[facility] Start: 10-18-2024 End: 10-18-2024 ambulatory Chantale Ramsey HEALTH TECHNICIAN Facility:[facility] Start: 10-18-2024 End: 10-18-2024 ambulatory Chantale Ramsey HEALTH TECHNICIAN Facility:[facility] Start: 08-12-2024 End: 08-14-2024 Evaluation and management of inpatient ROSA BADILLO CARE SUPPORT REPRESENTATIVE-ROTARY DRILL RIG OPERATOR [facility] Start: 08-05-2024 End: 08-05-2024 ambulatory Chantale Ramsey HEALTH TECHNICIAN Facility:[facility] Start: 07-23-2024 End: 07-23-2024 ambulatory Chantale Ramsey HEALTH TECHNICIAN Facility:[facility] Start: 07-19-2024 End: 07-19-2024 ambulatory Chantale Ramsey HEALTH TECHNICIAN Facility:[facility] Start: 06-17-2024 End: 06-17-2024 ambulatory Chantale Ramsey HEALTH TECHNICIAN Facility:[facility] Start: 04-23-2024 End: 04-23-2024 ambulatory Chantale Ramsey HEALTH TECHNICIAN Facility:[facility] Start: 04-21-2024 End: 04-21-2024 ambulatory Chantale Ramsey HEALTH TECHNICIAN Facility:[facility] Start: 04-16-2024 End: 04-16-2024 ambulatory PATRICK NOGUEIRA Facility:[facility] Start: 03-10-2024 End: 03-10-2024 ambulatory CHANTALE RAMSEY CARE SUPPORT REPRESENTATIVE-ROTARY DRILL RIG OPERATOR Facility:[facility] Start: 02-09-2024 End: 02-13-2024 ambulatory HUNG MATA MD Facility:[facility] Start: 02-09-2024 End: 02-13-2024 Outreach Lab HUNG MATA MD [facility] Start: 12-26-2023 End: 12-26-2023 ambulatory CHANTALE RAMSEY CARE SUPPORT REPRESENTATIVE-ROTARY DRILL RIG OPERATOR Facility:[facility] Start: 12-26-2023 End: 12-26-2023 Patient encounter procedure CHANTALE RAMSEY CARE SUPPORT REPRESENTATIVE-ROTARY DRILL RIG OPERATOR [facility] Start: 11-07-2023 End: 11-07-2023 ambulatory PIPER WALL CARE SUPPORT REPRESENTATIVE-ROTARY DRILL RIG OPERATOR Facility:[facility] Start: 10-17-2023 End: 10-17-2023 ambulatory CHANTALE RAMSEY CARE SUPPORT REPRESENTATIVE-ROTARY DRILL RIG OPERATOR Facility:[facility] Start: 10-17-2023 End: 10-17-2023 Patient encounter procedure CHANTALE RAMSEY CARE SUPPORT REPRESENTATIVE-ROTARY DRILL RIG OPERATOR [facility] Start: 09-25-2023 End: 09-29-2023 ambulatory CHANTALE RAMSEY CARE SUPPORT REPRESENTATIVE-ROTARY DRILL RIG OPERATOR Facility:[facility] Start: 09-25-2023 End: 09-25-2023 ambulatory MANUEL MARTIN PA-C Facility:[facility] Start: 09-09-2023 End: 09-09-2023 ambulatory CHANTALE Anayeli BRAULIO CARE SUPPORT REPRESENTATIVE-ROTARY DRILL RIG OPERATOR Facility:[facility] Start: 09-09-2023 End: 09-09-2023 Patient encounter procedure CHANTALE A BRAULIO CARE SUPPORT REPRESENTATIVE-ROTARY DRILL RIG OPERATOR [facility] Start: 08-18-2023 End: 08-18-2023 ambulatory CHANTALE Anayeli BRAULIO CARE SUPPORT REPRESENTATIVE-ROTARY DRILL RIG OPERATOR Facility:[facility] Start: 07-25-2023 End: 07-29-2023 ambulatory PIPER WALL CARE SUPPORT REPRESENTATIVE-ROTARY DRILL RIG OPERATOR Facility:[facility] Start: 07-25-2023 End: 07-29-2023 Outreach Lab PIPER WALL CARE SUPPORT REPRESENTATIVE-ROTARY DRILL RIG OPERATOR [facility] Start: 05-14-2023 End: 05-18-2023 ambulatory CHANTALE Anayeli BRAULIO CARE SUPPORT REPRESENTATIVE-ROTARY DRILL RIG OPERATOR Facility:[facility] Start: 05-14-2023 End: 05-18-2023 Outreach Lab CHANTALE Guadalupe BRAULIO CARE SUPPORT REPRESENTATIVE-ROTARY DRILL RIG OPERATOR [facility] Start: 04-29-2023 End: 04-29-2023 ambulatory CHANTALE A BRAULIO CARE SUPPORT REPRESENTATIVE-ROTARY DRILL RIG OPERATOR Facility:[facility] Start: 02-18-2023 End: 02-18-[address] ELVIRA ROQUE DO [facility] Start: 01-16-2023 End: 01-16-2023 Patient encounter procedure CHANTALE Anayeli BRAULIO CARE SUPPORT REPRESENTATIVE-ROTARY DRILL RIG OPERATOR [facility] Start: 01-03-2023 End: 01-03-2023 Patient encounter procedure CHANTALE Anayeli BRAULIO CARE SUPPORT REPRESENTATIVE-ROTARY DRILL RIG OPERATOR [facility] Start: 11-06-2022 End: 11-06-2022 Patient encounter procedure CHANTALE RAMSEY CARE SUPPORT REPRESENTATIVE-ROTARY DRILL RIG OPERATOR [facility] Start: 10-31-2022 End: 11-01-2022 Evaluation and management of inpatient SLOAN MUJICA Facility:[facility] Start: 10-30-2022 End: 10-31-2022 Emergency department patient visit REJI SHEPARD Facility:[facility] Start: 06-04-2022 End: 06-04-[address] Karl Pichardo Work Phone: [facility] Work Phone: Start: 06-04-2022 End: 06-04-[address] [facility] Start: 05-27-2022 End: 05-27-[address] Karl Pichardo Work Phone: [facility] Start: 04-15-2022 End: 04-15-[address] Karl Pichardo Work Phone: [facility] Start: 04-04-2022 End: 04-04-2022 Emergency department patient visit Dr[facility]ich[facility] Start: 03-28-2022 End: 03-28-[address] Karl Pichardo Work Phone: [facility] Start: 03-13-2022 End: 03-13-[address] [facility] Start: 03-13-2022 End: 03-13-[address] Karl Pichardo Work Phone: [facility] Start: 03-11-2022 End: 03-11-2022 Emergency department patient visit Dr. Karl Pichardo Work Phone: [facility] Start: 03-11-2022 End: 03-11-[address] Karl Pichardo Work Phone: [facility] Start: 03-05-2022 Orders Only Livia lux PA-C Work Phone: Orthopaedics Comment on above: Rotator cuff tear ar thropathy of right shoulder (Primary Dx) Start: 03-04-2022 End: 03-04-2022 ambulatory KARL PICHARDO Facility:[facility] Start: 03-04-2022 End: 03-04-2022 Patient encounter procedure Andry Dunne MD Work Phone: Orthopaedics Comment on above: Impingement syndrome of left shoulder (Primary Dx); Chronic left shoulder pain Start: 12-03-2021 End: 12-03-2021 ambulatory RODOLFO BISHOP Facility:[facility] Start: 12-03-2021 End: 12-03-2021 Patient encounter procedure Rodolfo Bishop MD Work Phone: Orthopaedics Comment on above: History of failed re pair of rotator cuff (Primary Dx); Rotator cuff tear arthropathy of right shoulder Start: 11-29-2021 Orders Only Rodolfo Bishop MD Work Phone: [facility] Comment on above: Pain (Primary Dx) Start: 11-24-2021 End: 11-24-2021 [facility] Start: 11-22-2021 End: 11-22-2021 ambulatory SAM JONES Facility:[facility] Start: 11-22-2021 End: 11-22-2021 Patient encounter procedure Sam Jones MD Work Phone: [facility] [place] Comment on above: Rotator cuff tear ar thropathy, right (Primary Dx); Traumatic complete tear of right rotator cuff, subsequent encounter Tear of left glenoid labrum, subsequent encounter (Primary Dx); Rotator cuff syndrome of left shoulder Start: 09-24-2021 End: 09-24-2021 Emergency department patient visit [facility] Start: 08-24-2021 End: 08-25-2021 Emergency department patient visit [facility] Start: 08-23-2021 End: 08-23-2021 Emergency department patient visit [facility] Start: 06-05-2021 End: 06-05-2021 Subsequent hospital visit by physician Xr [facility] Jamil Work Phone: Radiology Comment on above: Pain [R52] Start: 02-20-2017 Ambulatory UNKNOWN PROVIDER [facility] Start: 02-19-2017 Ambulatory Nena [facility] Start: 08-30-2009 End: 01-13-2013 Patient encounter status Xr Jamil Work Phone: [facility] Procedures Date Procedure Procedure Detail Performing [...] Start: 10-06-2020 Incision AND drainage CHANTALE RAMSEY CARE SUPPORT REPRESENTATIVE-ROTARY DRILL RIG OPERATOR Comment on above: cervical neck hematoma Start: 09-28-2020 Excision of cervical intervertebral disc CHANTALE RAMSEY CARE SUPPORT REPRESENTATIVE-ROTARY DRILL RIG OPERATOR Start: 10-25-2019 History of repair of musculotendinous [...] Jones MD Work Phone: Appendectomy CHANTALE VILLA CARE SUPPORT REPRESENTATIVEClip Interactive Cholecystectomy CHANTALE APONTE CARE SUPPORT REPRESENTATIVEClip Interactive Colonoscopy CHANTALE VILLA CARE SUPPORT REPRESENTATIVEClip Interactive Diagnostic laparosco py of female pelvis CHANTALE RAMSEY CARE SUPPORT REPRESENTATIVE-ROTARY DRILL RIG OPERATOR Comment on above: Left ovarian cyst removed Entire knee region ( body structure) CHANTALE RAMSEY CARE SUPPORT REPRESENTATIVE-ROTARY DRILL RIG OPERATOR Comment on above: Right Epidural injection o f lumbar spine using fluoroscopic guidance CHANTALE RAMSEY CARE SUPPORT REPRESENTATIVEInsiders@ ProjectROTARY DRILL RIG OPERATOR Esophagogastroduodenoscopy Kailash RAMSEY CARE SUPPORT REPRESENTATIVEClip Interactive H/O: surgery History of rever talib of tubal ligation H/O: tubal ligation History of t ubal ligation Herniation of rectum into vagina (disorder) CHANTALE RAMSEY CARE SUPPORT REPRESENTATIVEClip Interactive History of appendectomy History of appendectomy History [...] Hi story of total hysterectomy Hysterectomy CHANTALE RODRIGUEZ DAISY CARE SUPPORT REPRESENTATIVE-ROTARY DRILL RIG OPERATOR Ligation of fallopian tube Kailash RAMSEY CARE SUPPORT REPRESENTATIVE-ROTARY DRILL RIG OPERATOR Open reduction of fr acture of ankle with internal fixation CHANTALE RAMSEY CARE SUPPORT REPRESENTATIVE-ROTARY DRILL RIG OPERATOR Comment on above: Left Shoulder region stru cture (body structure) CHANTALE RAMSEY CARE SUPPORT REPRESENTATIVE-ROTARY DRILL RIG OPERATOR Comment on above: Right x6 Urine culture Dr. Karl bowden Work Phone: Plan of Treatment Date Care Activity Detail Author Start: 04-20-2029 Colonoscopy [address]OS[address] [facility] Start: 04-20-2029 COLORECTAL CANCER SCREENING COLORECTAL CANCER SCREENING [facility] Start: 04-20-2029 Screening for malign ant neoplasm of colon [facility] Start: 03-26-2026 Urine microalbumin profile [facility] Start: 04-04-2024 Covid-19 Vaccine ( season) Covid-19 Vaccine ( season) [facility] Start: 04-04-2024 Influenza vaccination Influenza Vacc ine (#1) [facility] Start: 01-31-2023 Hemoglobin A1c measurement HbA1C [facility] Start: 05-27-2022 Patient referral [facility] Work Phone: Start: 04-04-2022 Influenza vaccination [facility] Start: 04-04-2022 [facility] Work Phone: Start: 03-01-2022 Mammography [address] [facility] Start: 03-01-2022 Screening for malign ant neoplasm of breast Mammogram Screening [facility] Start: 08-28-2020 Glaucoma screening Dilated Retinal E xam [facility] Start: 08-28-2020 Hepatitis C antibody , confirmatory test DILATED RETINAL EXAM [facility] Start: 03-03-2020 HPV TESTING HPV TESTING [facility] Start: 03-03-2020 PAP TESTING PAP TESTING [facility] Start: 03-03-2020 Screening for malign ant neoplasm of cervix Cervical Cancer Screening [facility] Start: 11-18-2019 Hemoglobin A1c/Hemoglobin.total in Blood HBA1C [facility] Start: 06-28-2017 3 comp foot exam completed DIABETIC FOOT EXAM [facility] Start: 06-28-2017 Diabetic foot examination Diabetic Foot Exam [facility] Start: 06-24-2017 Hepatitis B surface antibody level LDL CHOLESTEROL [facility] Start: 03-26-2017 Hepatitis B screening URINE AL BUMIN:CREATININE RATIO [facility] Start: 02-13-2017 Adult depression screening assessment DEPRESSION SCREENING [facility] Start: 12-24-2016 End: 12-24-2016 Appointment [facility] Work Phone: Start: 12-24-2016 End: 12-24-2016 Appointment Appointment [facility] Work Phone: Start: 12-18-2016 End: 12-18-2016 Appointment Appointment [facility] Work Phone: Start: 12-18-2016 End: 12-18-2016 Appointment Appointment [facility] Work Phone: Start: 12-18-2016 End: 12-24-2016 Diagnostic colonoscopy Colonoscopy [facility] Work Phone: Start: 12-18-2016 End: 12-24-2016 Upper GI endoscopy, biopsy Upper gastrointestinal endoscopy; with biopsy [facility] Work Phone: Start: 2016 SHINGRIX VACCINE (1 of 2) SHINGRIX VACCINE (1 of 2) [facility] Start: 2011 COLOGUARD (FIT-DNA) COLOGUARD (FIT-D NA) [facility] Start: [address] COLONOGRAPHY [facility] Start: 2011 FECAL OCCULT BLOOD FECAL OCCULT BLOO D [facility] Start: 2011 Screening for malign ant neoplasm of colon [facility] Start: 2011 SIGMOIDOSCOPY SIGMOIDOSCOPY [facility] Start: 05-04-2005 PNEUMOCOCCAL (2 - PCV) PNEUMOCOCCAL (2 - PCV) [facility] Start: 05-04-2005 Pneumococcal vaccination Pneumococcal Vaccine (2 of 2 - PCV) [facility] Start: 1984 ANNUAL PCP TEAM [employer] [address] DISEASE VISIT ANNUAL PCP TEAM CHRONIC DISEASE VISIT [facility] Start: 1984 BP CONTROLLED (<130/80) BP CONTROLLE D (<130/80) [facility] Start: 1984 Depression Screening Depression Scre ening [facility] Start: 1984 SPIROMETRY SPIROMETRY [facility] Start: 1971 COVID-19 VACCINE (1) COVID-19 VACCIN E (1) [facility] Start: 1966 COVID-19 VACCINE (#1) COVID-19 VACCI NE (#1) [facility] Bacteria identified in Urine by Culture Urine Culture [facility] Work Phone: Patient Education [facility] Work Phone: Patient referral [facility] Work Phone: End: 12-29-2022 XR SHOULDER GENERAL 3V OR MORE AP/TRUE AP/OTHER RIGHT XR SHOULDER GENERAL 3V OR MORE AP/TRUE AP/OTHER RIGHT Radiology Routine Pain 1 Occurrences starting 11/29/2021 until 12/29/2022 [facility] Work Phone: Comment on above: 1 Occurrences starti ng 11/29/2021 until 12/29/2022 End: 04-05-2023 XR SHOULDER GENERAL 3V OR MORE AP/TRUE AP/OTHER RIGHT XR SHOULDER GENERAL 3V OR MORE AP/TRUE AP/OTHER RIGHT Radiology Routine Rotator cuff tear arthropathy of right shoulder 1 Occurrences starting 03/05/2022 until 04/05/2023 [facility] Work Phone: Comment on above: 1 Occurrences starti ng 03/05/2022 until 04/05/2023 [facility] Immunizations Immunization Date Immunization Notes Care Provider Orestes hayes 05-06-2017 influenza virus vaccine, unspecified formulation CHANTALE RAMSEY APRN-ROTARY DRILL RIG OPERATOR [facility] [place] 05-06-2017 influenza, injectabl e, quadrivalent, contains preservative Sam Jones MD Work Phone: [facility] 03-26-2016 tetanus toxoid, reduced diphtheria toxoid, and acellular pertussis vaccine, adsorbed Sam Jones MD Work Phone: [facility] Work Phone: 06-02-2015 influenza virus vaccine, unspecified formulation CHANTALE RAMSEY CARE SUPPORT REPRESENTATIVE-ROTARY DRILL RIG OPERATOR [facility] 06-02-2015 influenza, injectabl e, quadrivalent, contains preservative Sam Jones MD Work Phone: [facility] 01-24-2015 tuberculin skin test ; purified protein derivative solution, intradermal [facility] [place] Work Phone: [facility] 07-13-2014 influenza virus vaccine, unspecified formulation CHANTALE RAMSEY CARE SUPPORT REPRESENTATIVE-ROTARY DRILL RIG OPERATOR [facility] 07-13-2014 influenza, seasonal, injectable Sam Jones MD Work Phone: [facility] 05-06-2013 influenza virus vaccine, unspecified formulation Sam Jones MD Work Phone: [facility] 05-08-2012 influenza virus vaccine, unspecified formulation Sam Jones MD Work Phone: [facility] Work Phone: 10-22-2011 hepatitis B vaccine, adult dosage Sam Jones MD Work Phone: [facility] Work Phone: 08-09-2011 tuberculin skin test ; purified protein derivative solution, intradermal [facility]r [place] Work Phone: [facility] 07-31-2011 tuberculin skin test ; purified protein derivative solution, intradermal Xr [place] Work Phone: [facility] Work Phone: 04-26-2011 hepatitis B vaccine, adult dosage Sam Jones MD Work Phone: [facility] 04-26-2011 influenza virus vaccine, unspecified formulation Sam Jones MD Work Phone: [facility] 03-21-2011 hepatitis B vaccine, adult dosage Sam Jones MD Work Phone: [facility] Work Phone: 03-21-2011 tuberculin skin test ; purified protein derivative solution, intradermal Xr [place] Work Phone: [facility] 08-21-2006 diphtheria and tetan us toxoids, adsorbed for pediatric use Sam Jones MD Work Phone: [facility] 06-12-2005 influenza virus vaccine, whole virus Sam Jones MD Work Phone: [facility] Work Phone: 05-04-2004 pneumococcal polysaccharide vaccine, 23 valent Sam Jones MD Work Phone: [facility] 10-03-1999 tetanus and diphther ia toxoids, adsorbed, preservative free, for adult use (2 Lf of tetanus toxoid and 2 Lf of diphtheria toxoid) Sam Jones MD Work Phone: [facility] Payers Date Payer Category Payer Private Health Insurance [id number] 2025 Unknown [id number] 2023 Self-pay [id number] 2022 Unknown [id number] 2020 Medicaid [facility] MEDICAID [id number] 2020-Present [phone] [address] [place] [address] Medicaid [id number] 2020 Medicaid [id number]. [id number] 2020 Unknown [id number] 2018 Unknown 2018 Unknown BETZAIDA AGUILAR [facility] [id number] 2018-Present [phone] [address] [place] [address] [facility] [id number]. [id number] 2018 Unknown [id number] 2016 Unknown [id number] 1966 Unknown [id number] 2.16.840.1.777021.3.579.2. 1966 Unknown [id number] 2.16.840.1.441100.3.579.2. 1966 Unknown [id number] 2.16.840.1.992835.3.579.2. 1966 Unknown [id number] 2.16.840.1.025524.3.579.2. 1966 Unknown [id number] 2.16.840.1.773481.3.579.2. 1966 Unknown [id number] 2.16.840.1.283075.3.579.2. 1966 Unknown [id number] 2.16.840.1.308734.3.579.2. 1966 Unknown [id number] 2.16.840.1.741422.3.579.2. 1966 Unknown [id number] 2.16.840.1.124104.3.579.2. 1966 Unknown [id number] 2.16.840.1.335880.3.579.2. 1966 Unknown [id number] 2.16.840.1.764990.3.579.2. 627 1966 Unknown [id number] 2.16.840.1.117462.3.579.2. 627 1966 Unknown [id number] 2.16.840.1.953200.3.579.2. 627 1966 Unknown [id number] 2..840.1.435921.3.579.2. 62 1966 Unknown [id number] 2.840.1.951332.3.579.2. 62 1966 Unknown [id number] 2.840.1.132837.3.579.2. 62 1966 Unknown [id number] 2.840.1.915533.3.579.2. 627 Unknown [id number] Unknown [id number] 2.840.1.467369.3.579.2. 462 Unknown [id number] 2.840.1.760565.3.579.2. 462 Unknown [id number] 2.840.1.091254.3.579.2. 462 Unknown [id number] 2.16840.1.014499.3.579.2. 462 Unknown [id number] 2.840.1.334600.3.579.2. 462 Unknown [id number] 2.840.1.747056.3.579.2. 462 Unknown [id number] 2.840.1.593529.3.579.2. 462 Unknown [id number] 2.16840.1.403401.3.579.2. 462 Unknown [id number] 2.16840.1.745372.3.579.2. 462 Unknown [id number] 2.16840.1.569789.3.579.2. 462 Unknown [id number] 2.16.840.1.983388.3.579.2. 462 Unknown [id number] 2.16.840.1.272942.3.579.2. 462 Unknown [id number] 2.16.840.1.335357.3.579.2. 462 Unknown [id number] 2.16.840.1.672163.3.579.2. 462 Unknown [id number] 2.16.840.1.734238.3.579.2. 462 Unknown [id number] 2.16.840.1.083946.3.579.2. 462 Unknown [id number] 2.16.840.1.765726.3.579.2. 462 Unknown [id number] 2.16.840.1.215241.3.579.2. 462 Unknown [id number] 2.16.840.1.225773.3.579.2. 462 Unknown [id number] 2.16.840.1.282909.3.579.2. 462 Unknown [id number] 2.16.840.1.754955.3.579.2. 462 Unknown [id number] 2.16.840.1.932435.3.579.2. 462 Unknown [id number] 2.16.840.1.912574.3.579.2. 462 Social History Date Type Detail Facility Start: 01-11-2011 End: 12-08-2024 Tobacco smoking status NHIS Never smoked tobacco [facility] Start: 06-05-2021 End: 11-22-2021 Alcohol intake Current drinker of alcohol (finding) [facility] Start: 10-25-2019 History SDOH Alcohol Comment 2 vodka mixed drinks nightly [facility] Start: 1965 Sex Assigned At Female [facility] Start: 05-06-2021 End: 03-04-2022 Exposure to SARS-CoV-2 (event) Not sure [facility] Start: 11-24-2021 End: 05-27-2022 Tobacco smoking status HIIS Unknown if ever smoked [facility] Work Phone: Start: 08-17-2020 None [facility] Work Phone: Start: 08-20-2019 Alone [facility] Work Phone: Start: 10-04-2020 Non-smoker [facility] Work Phone: Start: 07-09-2020 End: 03-04-2022 Alcohol intake [facility] Start: 01-11-2011 Tobacco use and exposure Smokeless tobacco non-user [facility] Work Phone: Sex Assigned At [facility] Start: 07-09-2020 End: 06-05-2021 Tobacco use panel [facility] National Score (1-10 0), lower number is lower risk Not on file [facility] Start: 08-27-2019 Gender identity Identifies as female gender (finding) [facility] Start: 08-27-2019 Sexual orientation Heterosexual (fin ding) [facility] Start: 07-11-2016 Sex Female (finding) [facility] Medical Equipment Procedure Code Equipment Code Equipment Origin al Text Equipment Identifier Dates [place] [employer] Fiberwire 5.5mm 2 Full Thread Peek 14.7mm Suture 2 Sterile - [id number] Start: 02-01-2019 testing up to three times daily [id number] Start: 02-23-2014 Comment on above: testing up to three times daily See Instructions , Blood glucose test strips for home blood glucose testing twice daily. #6 boxes for 90 day supply. Please make sure test strips match glucometer., # 1 EA, 3 Refill(s), Pharmacy: [facility], DMII (diabetes mellitus, type 2), 17... Start: 10-08-2022 See Instructions , Lancets for blood glucose testing twice daily. 90 day supply., # 1 EA, 3 Refill(s), Pharmacy: [facility], DMII (diabetes mellitus, type 2), 172.7, cm, 10/08/22 10:00:00 EST, Height, 85 Start: 10-08-2022 See Instructions , Blood glucose test strips for home blood glucose testing twice daily. #6 boxes for 90 day supply. Please make sure test strips match glucometer., # 1 EA, 3 Refill(s), Pharmacy: [place] [id number], DMII (diabetes mellitus, type 2), 17... Start: 10-08-2022 See Instructions , Lancets for blood glucose testing twice daily. 90 day supply., # 1 EA, 3 Refill(s), Pharmacy: [place] [address], DMII (diabetes mellitus, type 2), 172.7, cm, 10/08/22 10:00:00 EST, Height, 85 Start: 10-08-2022 See Instructions , Blood glucose test strips for home blood glucose testing twice daily. #6 boxes for 90 day supply. Please make sure test strips match glucometer., # 1 EA, 3 Refill(s), Pharmacy: [place] [address], DMII (diabetes mellitus, type 2), 17... Start: 10-08-2022 See Instructions , Lancets for blood glucose testing twice daily. 90 day supply., # 1 EA, 3 Refill(s), Pharmacy: [place] [address], DMII (diabetes mellitus, type 2), 172.7, cm, 10/08/22 10:00:00 EST, Height, 85 Start: 10-08-2022 See Instructions , Blood glucose test strips for home blood glucose testing twice daily. #6 boxes for 90 day supply. Please make sure test strips match glucometer., # 1 EA, 3 Refill(s), Pharmacy: [place] [address], DMII (diabetes mellitus, type 2), 172.7, cm, 10/08/22 10:00:00 EST, Height, 85 Start: 10-08-2022 See Instructions , Lancets for blood glucose testing twice daily. 90 day supply., # 1 EA, 3 Refill(s), Pharmacy: [place] [address], DMII (diabetes mellitus, type 2), 172.7, cm, 10/08/22 10:00:00 EST, Height, 85 Start: 10-08-2022 See Instructions , Blood glucose test strips for home blood glucose testing twice daily. #6 boxes for 90 day supply. Please make sure test strips match glucometer., # 1 EA, 3 Refill(s), Pharmacy: [place] [address], DMII (diabetes mellitus, type 2), 172.7, cm, 10/08/22 10:00:00 EST, Height, 85 Start: 10-08-2022 See Instructions , Lancets for blood glucose testing twice daily. 90 day supply., # 1 EA, 3 Refill(s), Pharmacy: [place] [address], DMII (diabetes mellitus, type 2), 172.7, cm, 10/08/22 10:00:00 EST, Height, 85 Start: 10-08-2022 See Instructions , Blood glucose test strips for home blood glucose testing twice daily. #6 boxes for 90 day supply. Please make sure test strips match glucometer., # 1 EA, 3 Refill(s), Pharmacy: [place] [address], DMII (diabetes mellitus, type 2), 172.7, cm, 10/08/22 10:00:00 EST, Height, 85 Start: 10-08-2022 See Instructions , Lancets for blood glucose testing twice daily. 90 day supply., # 1 EA, 3 Refill(s), Pharmacy: [place] [address], DMII (diabetes mellitus, type 2), 172.7, cm, 10/08/22 10:00:00 EST, Height, 85 Start: 10-08-2022 See Instructions , Blood glucose test strips for home blood glucose testing twice daily. #6 boxes for 90 day supply. Please make sure test strips match glucometer., # 1 EA, 3 Refill(s), Pharmacy: [place] [address], DMII (diabetes mellitus, type 2), 172.7, cm, 10/08/22 10:00:00 EST, Height, 85 Start: 10-08-2022 See Instructions , Lancets for blood glucose testing twice daily. 90 day supply., # 1 EA, 3 Refill(s), Pharmacy: [place] [address], DMII (diabetes mellitus, type 2), 172.7, cm, 10/08/22 10:00:00 EST, Height, 85 Start: 10-08-2022 See Instructions , Blood glucose test strips for home blood glucose testing twice daily. #6 boxes for 90 day supply. Please make sure test strips match glucometer., # 1 EA, 3 Refill(s), Pharmacy: [facility], DMII (diabetes mellitus, type 2), 172.7, cm, 10/08/22 10:00:00 EST, Height, 85 Start: 10-08-2022 See Instructions , Lancets for blood glucose testing twice daily. 90 day supply., # 1 EA, 3 Refill(s), Pharmacy: [place] [address], DMII (diabetes mellitus, type 2), 172.7, cm, 10/08/22 10:00:00 EST, Height, 85 Start: 10-08-2022 See Instructions , Blood glucose test strips for home blood glucose testing twice daily. #6 boxes for 90 day supply. Please make sure test strips match glucometer., # 1 EA, 3 Refill(s), Pharmacy: [place] [address], DMII (diabetes mellitus, type 2), 172.7, cm, 10/08/22 10:00:00 EST, Height, 85 Start: 10-08-2022 See Instructions , Lancets for blood glucose testing twice daily. 90 day supply., # 1 EA, 3 Refill(s), Pharmacy: [place] [address], DMII (diabetes mellitus, type 2), 172.7, cm, 10/08/22 10:00:00 EST, Height, 85 Start: 10-08-2022 See Instructions , Blood glucose test strips for home blood glucose testing twice daily. #6 boxes for 90 day supply. Please make sure test strips match glucometer., # 1 EA, 3 Refill(s), Pharmacy: [place] [address], DMII (diabetes mellitus, type 2), 172.7, cm, 10/08/22 10:00:00 EST, Height, 85 Start: 10-08-2022 See Instructions , Lancets for blood glucose testing twice daily. 90 day supply., # 1 EA, 3 Refill(s), Pharmacy: [place] [address], DMII (diabetes mellitus, type 2), 172.7, cm, 10/08/22 10:00:00 EST, Height, 85 Start: 10-08-2022 See Instructions , Blood glucose test strips for home blood glucose testing twice daily. #6 boxes for 90 day supply. Please make sure test strips match glucometer., # 1 EA, 3 Refill(s), Pharmacy: [place] [address], DMII (diabetes mellitus, type 2), 172.7, cm, 10/08/22 10:00:00 EST, Height, 85 Start: 10-08-2022 See Instructions , Lancets for blood glucose testing twice daily. 90 day supply., # 1 EA, 3 Refill(s), Pharmacy: [place] [address], DMII (diabetes mellitus, type 2), 172.7, cm, 10/08/22 10:00:00 EST, Height, 85 Start: 10-08-2022 See Instructions , Blood glucose test strips for home blood glucose testing twice daily. #6 boxes for 90 day supply. Please make sure test strips match glucometer., # 1 EA, 3 Refill(s), Pharmacy: [facility] [facility] [address], DMII (diabetes mellitus, type 2), 172.7, cm, 10/08/22 10:00:00 EST, Height, 85 Start: 10-08-2022 See Instructions , Lancets for blood glucose testing twice daily. 90 day supply., # 1 EA, 3 Refill(s), Pharmacy: [place] [address], DMII (diabetes mellitus, type 2), 172.7, cm, 10/08/22 10:00:00 EST, Height, 85 Start: 10-08-2022 See Instructions , PEN NEEDLES 32GX5/32, USE UD D, [facility]: [address]-71, # 100 EA, 3 Refill(s), Pharmacy: [facility], 175, cm, 09/01/24 13:07:00 EST, Height, 101.5, kg, 09/01/24 13:07:00 EST, Dosing Weight Start: 10-15-2024 See Instructions , Blood glucose test strips for home blood glucose testing twice daily. #6 boxes for 90 day supply. Please make sure test strips match glucometer., # 1 EA, 3 Refill(s), Pharmacy: [place] [address], DMII (diabetes mellitus, type 2), 172.7, cm, 10/08/22 10:00:00 EST, Height, 85 Start: 10-08-2022 See Instructions , Lancets for blood glucose testing twice daily. 90 day supply., # 1 EA, 3 Refill(s), Pharmacy: [place] [id number], DMII (diabetes mellitus, type 2), 172.7, cm, 10/08/22 10:00:00 EST, Height, 85 Start: 10-08-2022 See Instructions , PEN NEEDLES 32GX5/32, USE UD [facility], [facility]: [address]-59, # 100 EA, 3 Refill(s), Pharmacy: [facility], 174, cm, 12/08/24 10:52:00 EDT, Height, 96.9, kg, 12/08/24 10:52:00 EDT, Dosing Weight Start: 01-26-2025 Functional Status Date Assessment Result Facility 08-14-2024 Functional Status Other: 7am-2pm [facility] 08-14-2024 Functional Status [facility] 08-14-2024 Functional Status [facility] 08-14-2024 Functional Status Room located n ear nursing station, Non-Slip footwear, Room check performed [facility] 08-14-2024 Functional Status [facility] 08-14-2024 Functional Status [facility] 08-14-2024 Functional Status [facility] 08-13-2024 Functional Status [facility] 08-13-2024 Functional Status Mobile home [facility] 08-13-2024 Functional Status Refused [facility] 08-13-2024 Functional Status [facility] 08-12-2024 Functional Status [facility] 08-12-2024 Functional Status Environmental Safety Implemented Adequate room lighting, Bed in low position, Call device within reach [facility] Mental Status Date Assessment Result Facility 08-14-2024 Mental Status Oriented x 4 [facility] 08-13-2024 Mental Status [facility] 08-13-2024 Mental Status [facility] 04-04-2022 Cognitive function Awake;Alert;A ppropriate;Follow s Commands [facility] Work Phone: 03-11-2022 Cognitive function Level Of Cons ciousness Awake;Alert;Appropriate;Follow s Commands [facility] Work Phone: Clinical Notes 04-15-2013 to [...] Locations *1: This test was performed at: [address] 08-18-2024 Note . MICRO - Microbiology PROCEDURE: [...] Locations *1: This test was performed at: [address] 08-14-2024 Hospital Discharge instructions Patient Education 08/14/2024 [...] Medicines to relieve symptoms. These can include tsmc-kjb-jpxchqt medicine for pain and fever, medicines for [...] Follow these instructions at home: Medicines Take knlt-ukq-qwiyhma and prescription medicines only as told by [...] and water are not available, use hand online publisher. Avoid close contact with friends and family [...] 11/29/2016 Document Revised: 07/03/2018 Document Reviewed: 11/29/2016 [employer] Patient Education 2020 [employer]. 08/14/2024 10:44:01 Nausea and Vomiting, Adult, Jsts-vf-Orgj Nausea and Vomiting, Adult Nausea is feeling [...] fruit juice). ?Low-calorie sports drinks. Eat bland, weyv-aq-wusiyr foods in small amounts as you are able, such as: ?Bananas. ?Applesauce. ?Rice. ?Low-fat (lean) meats. ?[place]. ?Crackers. Avoid drinking fluids that have a lot of sugar or caffeine in them. This includes energy drinks, sports drinks, and soda. Avoid alcohol. Avoid spicy or fatty foods. General instructions Take mxri-kjs-iplovjp and prescription medicines only as told by your doctor. Drink enough fluid to keep your pee (urine) pale yellow. Wash your hands often with soap and water. If you cannot use soap and water, use hand online publisher. Make sure that all people in your [...] too much water in your body. Take crhw-xur-sdtvolx and prescription medicines only as told by [...] 01/06/2009 Document Revised: 11/12/2019 Document Reviewed: 12/29/2018 [employer] Patient Education 2020 [employer]. Follow Up Care 08/12/2024 11:54:01 With:CHANTALE RAMSEY Address: [address] [place] [address] [place] [address]- [phone] When:3-5 days Comments:Please call to schedule your post-hospital follow-up appointment. [facility] 08-14-2024 Note Discharge Instructions Thank you for allowing [facility] to assist you with your healthcare needs. The following is important discharge information regarding your hospital visit. Your Care Team [facility] Your Diagnosis Constipation Dehydration HTN (hypertension) Intractable [...] OV 12/08/2024 11:00 AM EDT CHANTALE RAMSEY [address] [phone] Confirmed Follow Up Appointments Follow Up with CHANTALE RAMSEY When:Within 3-5 days [facility] [place] [place] [id number]- [phone] Additional Information: Please call to schedule your [...] 12 hours Duration: [address] [facility] START TOMORROW 08/15/2024 08/14/24 [...] instructions PEN NEEDLES 32GX5/ 32, USE UD [facility], [facility]: [address]-54 Unchanged DULoxetine (DULoxetine 60 mg oral delayed [...] Constipation Duration: 30 Days 08/13/[address] [facility]: [address] [place], [place] [phone] Please take this list to your next doctor s visit. Bring all medications you take, including over the counter medications, herbals and other supplements with you to your doctor s visit. Patients and families are reminded to discard old lists and to update any records with all medication providers or retail pharmacies. Medication Leaflets cefdinir ([facility] luana lucero) What is the most important information I [...] or rash (including diaper rash in an taking liquid cefdinir. This is not a complete list of side effects and others may occur. Call your doctor for medical advice about side effects. You may report side effects to FDA at 5-083-SMF-5231. What other drugs will affect cefdinir? Tell your doctor about all your other medicines, especially: probenecid; or vitamin or mineral supplements that contain iron. This list is not complete. Other drugs may affect cefdinir, including prescription and ssks-etx-amigjob medicines, vitamins, and herbal products. Not all [...] to ensure that the information provided by [employer] is accurate, up-to-date, and complete, but no guarantee is made to that effect. Drug information contained herein may be time sensitive. [employer] information has been compiled for use by healthcare practitioners and consumers in the [place] and therefore [employer] does not warrant that uses outside of the [place] are appropriate, unless specifically indicated otherwise. [employer] drug information does not endorse drugs, diagnose patients or recommend therapy. [employer]ark drug information is an informational resource designed [...] effective or appropriate for any given patient. [employer] does not assume any responsibility for any aspect of healthcare administered with the aid of information [employer] provides. The information contained herein is not intended to cover all possible uses, directions, precautions, warnings, drug interactions, allergic reactions, or adverse effects. If you have questions about the drugs you are taking, check with your doctor, nurse or pharmacist. Copyright 5402-6385 [facility] [employer]. Version: 9.01. Revision Date: 03/07/2023. Education Materials Viral Illness, [...] Medicines to relieve symptoms. These can include ipou-qdv-eslbljy medicine for pain and fever, medicines for [...] Follow these instructions at home: Medicines Take gcjz-bvf-hlpcjrg and prescription medicines only as told by [...] and water are not available, use hand online publisher. Avoid close contact with friends and family [...] 11/29/2016 Document Revised: 07/03/2018 Document Reviewed: 11/29/2016 Scannx Patient Education 2020 [employer]. Nausea and Vomiting, Adult Nausea is feeling [...] juice). ? Low-calorie sports drinks. Eat bland, sieh-tx-ekdjol foods in small amounts as you are able, such as: ? Bananas. ? Applesauce. ? Rice. ? Low-fat (lean) meats. ? [place]. ? Crackers. Avoid drinking fluids that have a lot of sugar or caffeine in them. This includes energy drinks, sports drinks, and soda. Avoid alcohol. Avoid spicy or fatty foods. General instructions Take vdnu-fqk-lapnkrr and prescription medicines only as told by your doctor. Drink enough fluid to keep your pee (urine) pale yellow. Wash your hands often with soap and water. If you cannot use soap and water, use hand online publisher. Make sure that all people in your [...] too much water in your body. Take znri-wxi-vasmzph and prescription medicines only as told by [...] 01/06/2009 Document Revised: 11/12/2019 Document Reviewed: 12/29/2018 Scannx Patient Education 2020 Sorbisense. Additional Information VACCINATE! IT SAVES LIVES! Members of the community who have not yet received the COVID-19 vaccine and would like to receive it can visit one of [facility] vaccine clinics. There are many vaccine clinic locations within the [facility]. For locations and available times, please visit https://gettheshot.coronavirus.oh io.gov/. It is important to note that some COVID mobile vaccine clinics are held outdoors and may be canceled in rainy or stormy conditions. To learn more about pediatric vaccinations (ages 5-11), we invite you to visit the [facility] webpage. https://www.Arbsources.org/pa ges/4278-Jxbgw-Dtdfvzbkebv-Freque ltxt-Qakke-Xhnkbhmov.html To learn more about the COVID-19 vaccine, we invite you to visit the CDC website for a list of frequently asked questions.https://www.cdc.gov/cor on-ncov/vaccines/faq.h tml [employer] Patient Portal Access Instructions: Stay connected with your healthcare team and access your personal medical information anytime with the [employer] Patient Portal. Please follow the directions below to create your [employer] account: 1.Access the email account you provided upon registration to the hospital/physician office.2.Look for an invitation email from [facility].3.Open the email and access the invitation link: Accept Invitation to [employer] [employer].4.Fill in the required hart to create your account. To access your account, visit [employer]. Click the blue button labeled Access Patient [...] you will allow to register on the [employer] Patient Portal for access to your information. You can also access the [employer] Patient Portal on the [facility] [employer] [employer]autista. Simply click on Patient Portal and then log into your account. If you would like to receive a full copy of your medical records, please contact the [facility] Medical Records Department by calling [phone], Friday through Friday between 8 a.m. and [...] Call your local pharmacy or go to [email or web address] [email or web address] You.VIRTRA [email or web address] to find one close to you.3.Make use of household items: Use cat litter or old coffee grounds to dispose medications if other options are not available. Mix your drugs with these household products, seal them in an airtight container and throw it into the garbage. Call [facility]: [phone] to be sure your drugs can be [...] Viral Illness, Adult Nausea and Vomiting, Adult, Vccv-xf-Vhqo Medication Leaflets cefdinir My discharge plan and instructions have been reviewed and explained to me and I,CHRISSY LAY understand my current condition and have read and understand these discharge instructions. I have received a written copy of the plan/instructions. If I have questions, I am aware that I should contact my doctor. Patient/Operations Coordinator Signature: Date/Time: Relationship to Patient: ____ Witness Name/Signature: Date/Time: [facility] 08-13-2024 Note . MICRO - Microbiology PROCEDURE: [...] Locations *1: This test was performed at: [address], [id number] [place] [address] 08-13-2024 Note . MICRO - Microbiology PROCEDURE: [...] Locations *1: This test was performed at: [facility], [address] [place] [address], [id number]- , [place] [facility] 08-13-2024 Note Date of Service 08/13/2024 Chief [...] and get about in the room. Our vp digital marketing social media and crm saw patient and stated that patient continues to work part-time but told the vp digital marketing social media and crm she needs help with meals and housekeeping. Patient follows with a counselor for anxiety and depression and was supposed to start Spravato yesterday in her PCP's office for her severe anxiety. Suspect there is a psych component contributing to her illness. Patient advised that we will monitor her for another day but she will likely be discharged home tomorrow. scrap worker asked if patient should be seen [...] ACDF. No acute cardiopulmonary process. EKG EKG [ED [facility]] - Completed -- 08/12/24 14:40:00 EST, 08/12/24 [...] by ROSA BADILLO on 08/13/2024 01:06 PM [facility] 08-12-2024 Note Date of Service 08/12/2024 Chief Complaint Presents with a headache and vomiting. Was at [facility] and was sent here for eval History of Present Illness Patient is a 59-year-old female, who follows with Chantale Ramsey CNP with a past medical history significant for type 2 diabetes, hypertension, hyperlipidemia, TIA, asthma and anxiety, [facility] with a constellation of symptoms. [...] but no blood. She was seen at [facility] today for her symptoms but states that [...] Domestic Concerns: None. Living situation: Home/Independent. Primary Rn Postpartum: Self. Lives In: Single level home. Current [...] by ROSA BADILLO on 08/12/2024 09:04 PM [facility] 08-12-2024 Note Exam Date Time Procedure Performing Provider Status 08/12/24 4:[address] Abd/Pelvis w/ IV Contrast Only MARINO MYERS MD; Auth (Verified) [id number] ORIGINAL EXAMINATION: CT OF THE ABDOMEN AND [...] Date: 08/12/2024 4:38:38 PM Ordering Provider: JERAD JOSE [facility]01-09-2025 Note* Exam Date Time Procedure Performing Provider Status 08/12/24 3:38 PM XR Chest 1 View NADER CONNELL MD; Auth (Verified) [id number] ORIGINAL EXAMINATION: ONE XRAY VIEW OF THE [...] Date: 08/12/2024 3:43:51 PM Ordering Provider: JERAD GARCIA [facility]01-09-2025 HCoV 229E RNA JALIL+non-probe Ql (Nph) Not Detected *NA* (08/12/24 2:56 PM)AH Auto Viro/Sero [id number] Note* Exam Date Time Procedure Performing Provider Status 08/12/24 2:52 PM EKG [ED AO] - CV JERAD GARCIA DO; Auth (Verified) ECG Final Report Sinus rhythm Left atrial enlargement Baseline wander in lead(s) V1 Electronic Signature: JERAD GARCIA DO 08/12/2024 14:56:50 [facility]01-09-2025 Evaluation + Plan noteExtracted from: Title:History and Physical Author:ROSA BADILLO CARE SUPPORT REPRESENTATIVE-ROTARY DRILL RIG OPERATOR Date:08/12/24 1. Intractable vomiting with nausea Acute, [...] Appointment Date:12/08/2024 11:00:00 AM Scheduled Provider:CHANTALE RAMSEY Location:[facility] Appointment Type: OV Future Scheduled Tests Laboratory* Basic Metabolic Panel 06/09/24 * Thyroid Stimulating Hormone 06/09/24 * Free T4 06/09/24 * Complete Blood Count 06/09/24 [facility] 07-09-2024 Note. MICRO - Microbiology PROCEDURE: Urine [...] Locations *1: This test was performed at: [facility], [address] [place] [address], [facility] , [facility]09-09-2023 Note ORIGINAL EXAMINATION: MRI OF THE BRAIN [...] Date: 09/09/2023 4:41:57 PM Ordering Provider: CHANTALE [facility]01-17-2024 Note. MICRO - Microbiology PROCEDURE: Urine Culture [...] Locations *1: This test was performed at: [address], [address]- , [facility] ([place])07-27-2023 Note. MICRO - Microbiology PROCEDURE: Urine Culture [...] Locations *1: This test was performed at: [facility], [address] [place] [address], [facility] , [facility])05-14-2023 Evaluation + Plan note Diagnostic Tests Pending * Ova & Parasite exam 05/14/23 Future Scheduled Tests Laboratory* Rapid HIV (AO) 02/18/23 * Basic Metabolic Panel 12/20/22 * Basic Metabolic Panel 01/17/23 * Complete Blood Count 01/17/23 [facility] 07-18-2023 Evaluation + Plan note Future Scheduled Tests Laboratory* Rapid HIV (AO) 02/18/23 * Basic Metabolic Panel 12/20/22 * Basic Metabolic Panel 01/17/23 * Complete Blood Count 01/17/23 [facility] 03-31-2023 NoteHNO ID: [id number] Author: MARY Manriquez Tech Service: ? Author Type: Aluminizer Type: Procedures Filed: 11/01/2022 2:17 PM Note Text: ZIO XT patch placed 11/01/2022, 2:30 p.m. [facility]-31-2023 NoteHNO ID: [id number] Author: Dana Marvin APRN.SANDY Service: Electrophysiology Author Type: Nurse Practitioner Type: [...] and serum BGL 309 on presentation to [place] ED, ?sepsis with elevated lactate and leukocytosis, [...] polysubstance use abstinence Zio patch ordered Call [phone] to have applied on d/c Further outpatient EP follow up needs pending Zio patch results No further recommendations from EP standpoint. Will remain available as needed. Assessment and Recommendations discussed and collaborated with Dr. Holliday SIGNATURE: Dana Marvin APRN.ROTARY DRILL RIG OPERATOR DATE: November 01, 2022 TIME: 8:56 AM CONTACTING [facility] CARDIOVASCULAR MEDICINE: Team A: (M-F 8:00 am - 5:00 pm) Dee Anton Scharfstein, Sparano, Vekstein, Wiseman, Gupta, Rogers - PAGE [phone] Team B: (M-F 8:00 am - 5:00 pm) Nahomi Rivero Kruithoff, Mattina, Taraben, William, Abdelghany- [place] [phone] Night and Weekend Cardiovascular Medicine (consults, inpatient management questions, transfers, etc.): CALL [phone] (not the physician listed) - All calls triaged via answering service. Please include the patient's name, location, MRN, and 10-digit call-back number.[facility]03-30-2023 NoteHNO ID: [id number] Author: Yasmine Clifford, NERY Service: Nursing Author Type: Registered Nurse Type: Progress Notes Filed: 10/31/2022 7:34 AM Note Text: 0230- pt arrived from [facility]. Pt Aox3, oriented to room and educated fashion illustrator light use. States she has a headache [...] call light within reach, bed locked and low.[facility]03-30-2023 NoteHNO ID: [id number] Author: Sloan Will MD Service: Electrophysiology Author [...] Bigeminy and Trigeminy were present. Sloan Will MDHudson Hospital08-01-2022 NoteHNO ID: [id number] Author: Andry Dunne MD Service: ? Author Type: Physician Type: Progress Notes Filed: 03/19/2022 1:26 PM Note Text: Andry Dunne MD Department of Orthopaedics Orthopaedics [address] [facility] [address] Dept: [phone] Dept March 04, 2022 CHIEF COMPLAINT: New [...] surgeries of right shoulder, but this is [facility], and explained that we cannot treat her for this unless Dr. Dunne agrees to take on care and become provider of record. Currently she sees Dr. Jones and Dr. Bishop. She does not want to go back to [place] for care. AMB ROOMING INTAKE FLOWSHEET DATA [...] subacromial bursa Informed Consent Consent Obtained: Verbal [place] Protocol A moment to CARE was completed. [...] THE CORACOCLAVICULAR LIGAMENTS MAY REPRESENT LOW-GRADE SPRAIN. Survey Statistician: FERCHO Transcribe Date/Time: Jun 22 2021 4:06P Dictated by : NAYELY ZURITA MD This examination was interpreted and the report reviewed and electronically signed by: HENRY GILMORE MD on Jun 22 2021 5:18PM EST Results-Findings * * *Final Report* * * DATE OF EXAM: Jun 22 2021 3:21PM WR 0239 - MRI SHOULDER WO IVCON LT / PROCEDURE REASON: Other injury of unspecified muscle, fascia and tendon at shoulder and upper arm * * * * Physician Interpretation * * * * [facility]: Other injury of unspecified muscle, fascia [...] mild tendinosis -Infraspinatus: I (more content not included)...[facility] 03-04-2022 History of Present illness Narrative* Andry Dunne MD - 03/04/2022 3:57 PM EDTAssociated Order(s): Large Joint Arthro/Inj: L subacromial bursa Post-Procedure Diagnose(s): Impingement syndrome of left shoulder; Chronic left shoulder pain Andry Dunne MD Department of Orthopaedics Orthopaedics [address] [facility] [address] Dept: [phone] Dept March 04, 2022 CHIEF COMPLAINT: New [...] surgeries of right shoulder, but this is [facility], and explained that we cannot treat her for this unless Dr. Dunne agrees to take on care and become provider of record. Currently she sees Dr. Jones and Dr. Bishop. She does not want to go back to [place] for care. AMB ROOMING INTAKE FLOWSHEET DATA [...] subacromial bursa Informed Consent Consent Obtained: Verbal [place] Protocol A moment to CARE was completed. [...] THE CORACOCLAVICULAR LIGAMENTS MAY REPRESENT LOW-GRADE SPRAIN. Survey Statistician: FERCHO Transcribe Date/Time: Jun 22 2021 4:06P Dictated by : NAYELY ZURITA MD This examination was interpreted and the report reviewed and electronically signed by: HENRY GILMORE MD on Jun 22 2021 5:18PM EST Results-Findings * * *Final Report* * * DATE OF EXAM: Jun 22 2021 3:21PM [facility] 0239 - MRI SHOULDER WO IVCON LT [...] 1995 Bx of breast, incisional - right CHOLECYSTECTOMY [...] Lopressor [Metoprolol Tartrate], Morphine, Oxymorphone, Percocet [Oxycodone-Acetaminophen], Zdseomk-Vrd-Tnm Reductase Inhibitors, Tylenol [Acetaminophen], and Ultram [Tramadol [...] electronic medical record. Andry Dunne [address] [facility] [address] Karl Pichardo MD [address] [facility] [address] Andry Dunne MD documented in this encounterMer[facility]. [facility]05-02-2022 NoteHNO ID: [id number] Author: Rodolfo Bishop MD Service: ? Author Type: Physician Type: Progress Notes Filed: 12/03/2021 3:58 PM Note Text: SERVICE DATE: Patient would like to see someone today. PCP: Chrissy Lay REFERRING PROVIDER: Sam Jones [address] [facility] [address] Consult requested for an opinion regarding the [...] broken ankle (left) -- 2007 Following with [facility] [place] Previous Version Essential hypertension, benign Phoebe Randle [...] fusion of cervical spine 04/25/2021 Mariely Kelley, CARE SUPPORT REPRESENTATIVE.ROTARY DRILL RIG OPERATOR No GERD (gastroesophageal reflux disease) 10/25/2019 Mariely Kelley CARE SUPPORT REPRESENTATIVE.ROTARY DRILL RIG OPERATOR No Nausea and vomiting 10/25/2019 Mariely Kelley CARE SUPPORT REPRESENTATIVE.ROTARY DRILL RIG OPERATOR No Mixed hyperlipidemia 10/25/2019 Mariely Kelley CARE SUPPORT REPRESENTATIVE.ROTARY DRILL RIG OPERATOR No History of failed repair of rotator cuff 10/25/2019 Mariely Kelley CARE SUPPORT REPRESENTATIVE.ROTARY DRILL RIG OPERATOR No Impingement syndrome of left shoulder 10/12/2019 [...] Ulloa RN No Hemorrh (more content not included)...[facility]05-02-2022 History of Present illness Narrative* Rodolfo Bishop MD - 12/03/2021 2:24 PM EDT Post-Procedure Diagnose(s): History of failed repair of rotator cuff; Rotator cuff tear arthropathyof right shoulder SERVICE DATE: Patient would like to see someone today. PCP: Chrissy Lay REFERRING PROVIDER: Sam Jones [address] [address] [place] [address] Consult requested for an opinion regarding the [...] Garcia Previous Version Essential hypertension, benign Phoebe Randle [...] fusion of cervical spine 04/25/2021 Mariely Kelley, CARE SUPPORT REPRESENTATIVE.ROTARY DRILL RIG OPERATOR No GERD (gastroesophageal reflux disease) 10/25/2019 Mariely Kelley CARE SUPPORT REPRESENTATIVE.ROTARY DRILL RIG OPERATOR No Nausea and vomiting 10/25/2019 Mariely Kelley CARE SUPPORT REPRESENTATIVE.ROTARY DRILL RIG OPERATOR No Mixed hyperlipidemia 10/25/2019 Mariely Kelley CARE SUPPORT REPRESENTATIVE.ROTARY DRILL RIG OPERATOR No History of failed repair of rotator cuff 10/25/2019 Mariely Kelley CARE SUPPORT REPRESENTATIVE.ROTARY DRILL RIG OPERATOR No Impingement syndrome of left shoulder 10/12/2019 [...] Karl Pichardo MD Tibialis tendinitis 12/29/2008 Jordan Guadalupe Asael 08/30/2009 Karl Pichardo MD RECTAL BLEEDING (MELENA-578.1) 08/23/2008 Tu Meade MD 08/30/2009 Karl Pichardo MD Lump or mass in breast 01/01/2008 Nadya Al Castillo 08/30/2009 Karl Pichardo MD Abnormal mammogram, [...] Status Change Percocet [Oxycodone* Itching Severe itching Znpmpse-Lup-Rhb Red* Other: See Comments Muscle aches, multiple [...] them every 6 months. This is a [facility] case and we can submit for approval for her injection with a C9 form and when that is approved, I will be happy to see her back for an injection.She understands and agreeable with this plan. If any questions or concerns arise, she should not hesitate to call. Rodolfo Bishop M.D. M.M.Sc. Shoulder and Elbow Surgeon Orthopaedic Surgery Department [place], [place] [address] Tell: [phone] Appt:[phone] 12/03/2021 2:24 PM documented in this encounterMercy Health St. [facility]04-21-2022 NoteHNO ID: [id number] Author: Sam Jones MD Service: ? Author [...] subacromial bursa Informed Consent Consent Obtained: Verbal [place] Protocol A moment to CARE was completed. [...] November 22, 2021 TIME: 11:49 AM PAGER/CONTACT #:[facility]04-21-2022 NoteHNO ID: [id number] Author: Sam Jones MD Service: ? Author [...] patient's questions were answered by the attending physician.[facility]04-21-2022 NoteHNO ID: [id number] Author: Sam Jones MD Service: ? Author [...] noted. Motor: 5/5 IO, FPL, OP, hand steam press tender, biceps, triceps, deltoid Sensory: SILT ulnar/median/radial distributions [...] outlined treatment plan Narciso Rosario MD CC:[facility]-2022 NoteHNO ID: [id number] Author: Sam Jones MD Service: ? Author [...] noted. Motor: 5/5 IO, FPL, OP, hand steam press tender, biceps, triceps, deltoid Sensory: SILT ulnar/median/radial distributions [...] outlined treatment plan Narciso Rosario MD CC:[facility] History of Present illness Narrative* Sam Jones [...] subacromial bursa Informed Consent Consent Obtained: Verbal [place] Protocol A moment to CARE was completed. [...] noted. Motor: 5/5 IO, FPL, OP, hand steam press tender, biceps, triceps, deltoid Sensory: SILT ulnar/median/radial distributions [...] Jones documented in this encounterMercy Health St. [facility]04-21-2022 History of Present illness Narrative* Sam [...] issues. She is currently working at a [employer]. Does not require any significant lifting [...] noted. Motor: 5/5 IO, FPL, OP, hand steam press tender, biceps, triceps, deltoid Sensory: SILT ulnar/median/radial distributions [...] Jones documented in this encounterMercy Health St. [facility]11-02-2021 History of Present illness Narrative* Aurora Adorno, RT(R) - 06/05/2021 10:30 AM EDT Radiology [...] IV DATA: Not applicable SIGNED BY: RT Gabby(R) June 05, 2021 10:21 AM documented in this encounterMercy Health St. [facility]09-29-2021 NoteHNO ID: [id number] Author: Maria Luz Enriquez APRN.ELECTRICAL PANEL BUILDER Service: ? Author Type: Nurse Barrow Worker Type: Anesthesia Procedure Notes Filed: 05/02/2021 11:02 [...] Seal Adequate: yes SIGNATURE: Maria Luz Enriquez APRN.ELECTRICAL PANEL BUILDER PATIENT NAME: Chrissy Lay DATE: May 02, 2021 TIME: 11:01 AM CSN: [id number] NoteHNO ID: [id number] Author: Richie Tao III, MD Service: Anesthesiology [...] May 02, 2021 TIME: 11:00 AM CSN: [id number] NoteHNO ID: [id number] Author: Shana Rene RN Service: Nursing Author Type: Registered Nurse Type: Nursing Progress Note Filed: 05/02/2021 10:10 AM Note Text: CHEPE Presley obtained UA results. Okay to proceed with the surgery today.[facility]09-29-2021 NoteHNO ID: [id number] Author: Shana Rene RN Service: Nursing Author Type: Registered Nurse Type: Nursing Progress Note Filed: 05/02/2021 9:32 AM Note Text: Dr. Tao spoke with CHEPE Presley regarding pt's c/o.[facility] 04-15-2013 History of Past illness Narrative* Problem [...] (statuses as of 11/22/2021) [facility]09[facility]12[facility] History of Past illness Narrative* Problem [...] (statuses as of 11/22/2021) [facility] History of Past illness Narrative* Problem [...] (statuses as of 11/29/2021) [facility] History of Past illness Narrative* Problem [...] (statuses as of 12/03/2021) [facility] History of Past illness Narrative* Problem [...] (statuses as of 03/05/2022) [facility] History of Past illness Narrative* Problem Noted Date Resolved Date Premenopausal menorrhagia 04/15/20132013 Impaired fasting blood sugar 12/28/2010 Overview: A1c 6.4 as of --> Diagnostic for DM at 6.5% or higher, per current criteria Hypothyroidism 10/05/2009 10/29/2013 Routine general medical exam ination at a [facility] care facility 08/30/2009 01/13/2013 Overview: 08/30/2009, from [...] (statuses as of 03/19/2022) [facility] note Future Appointments Appointment Date:01/06/2023 04:30:00 PM Scheduled Provider:CHANTALE RAMSEY Location:[facility] Appointment Type:PC OV Appointment Date:02/05/2023 09:30:00 AM Scheduled Provider:CHANTALE RAMSEY Location:[facility] Appointment Type:PC OV [facility] Evaluation + Plan note Future Appointments Appointment Date:03/07/2023 10:00:00 AM Scheduled Provider:CHANTALE RAMSEY APRN-SANDY Location:[facility] Appointment Type:PC OV Future Scheduled Tests Laboratory* Basic Metabolic Panel 12/20/22 [facility] Evaluation + Plan note Future Appointments Appointment Date:03/07/2023 10:00:00 AM Scheduled Provider:CHANTALE RAMSEY APRN-SANDY Location:[facility] Appointment Type:PC OV Diagnostic Tests Pending * N. gonorrhoeae PCR 02/18/23 * Chlamydia trachomatis PCR 02/18/23 Future Scheduled Tests Laboratory* Rapid HIV (AO) 02/18/23 * Affirm Pathogens DNA Direct Probe 02/18/23 * Basic Metabolic Panel 12/20/22 * Basic Metabolic Panel 01/17/23 * Complete Blood Count 01/17/23 [facility] Evaluation + Plan note Future Appointments Appointment Date:09/26/2023 03:00:00 PM Scheduled Provider:CHANTALE RAMSEY APRN-SANDY Location:[facility] Appointment Type:PC OV Follow Up Future Scheduled Tests Laboratory* Rapid HIV (AO) 02/18/23 [facility] Evaluation + Plan note Future Appointments Appointment Date:12/26/2023 02:00:00 PM Scheduled Provider:CHANTALE RAMSEY APRN-SANDY Location:[facility] Appointment Type:PC OV Future Scheduled Tests Laboratory* Rapid HIV (AO) 02/18/23 * A1C Hemoglobin 09/25/23 * Complete Blood Count 09/25/23 * Lipid Profile 09/25/23 * Complete Metabolic Panel 09/25/23 [facility] Evaluation + Plan note Future Appointments Appointment Date:03/26/2024 03:30:00 PM Scheduled Provider:CHANTALE RAMSEY Location:[facility] Appointment Type: OV Future Scheduled Tests Laboratory* Rapid HIV (AO) 02/18/23 * A1C Hemoglobin 09/25/23 * Complete Blood Count 09/25/23 * Lipid Profile 09/25/23 * Complete Metabolic Panel 09/25/23 [facility] Evaluation + Plan note Future Appointments Appointment Date:03/07/2025 11:00:00 AM Scheduled Provider:CHANTALE RAMSEY Location:[facility] Appointment Type: OV Future Scheduled Tests Laboratory* Basic Metabolic Panel 06/09/24 * Thyroid Stimulating Hormone 06/09/24 * Thyroid Stimulating Hormone 11/24/24 * Free T4 06/09/24 * Free T4 11/24/24 * Complete Blood Count 06/09/24 * Complete Blood Count 11/24/24 * Lipid Profile 11/24/24 * Vitamin D Level 11/24/24 * Complete Metabolic Panel 11/24/24 [facility] Evaluation + Plan note Future Appointments Appointment Date:05/11/2025 11:30:00 AM Scheduled Provider:CHANTALE RAMSEY Location:[facility] Appointment Type: OV Appointment Date:06/08/2025 11:00:00 AM Scheduled Provider:CHANTALE RAMSEY Location:[facility] Appointment Type:PC OV [facility] Evaluation note* Diagnosis Rotator cuff tear arthropathy, right- Primary Traumatic complete tear of right rotator cuff, subsequent encounter [facility] Diagnosis Tear of left glenoid labrum, subsequent encounter- Primary Rotator cuff syndrome of left shoulder Disorders of bursae and tendons in shoulder region, unspecified documented [facility] this [facility] noteNo assessment information availableWMartins Ferry Hospital Work Phone: Evaluation note* Diagnosis Pain- Primary Generalized pain documented [facility] this [facility]* Diagnosis History of failed repair of rotator cuff- Primary Other postprocedural status Rotator cuff tear arthropathy of right shoulder Traumatic arthropathy, shoulder region [facility] Diagnosis Rotator cuff tear arthropathy of right shoulder- Primary Traumatic arthropathy, shoulder region [facility]* Diagnosis Onset Date Resolution Status Episode of syncope acute Urinary tract infection with hematuria acute [facility] Work Phone: Evaluation note* Diagnosis Onset Date Resolution Status Episode of syncope acute Urinary tract infection with hematuria acute Strain of lumbar region acut e [facility] Work Phone: Evaluation note* Diagnosis Impingement syndrome of left shoulder- Primary Other affections of shoulder region, not elsewhere classified Chronic left shoulder pain Pain in joint, shoulder region documented [facility] this [facility]* Diagnosis Onset Date Resolution Status Episode of syncope acute Urinary tract infection with hematuria acute Strain of lumbar region acut e Depressed chronic Diabetes mellitus type II, controlled chronic Hyperlipidemia chronic RSD (reflex sympathetic dystrophy) chronic Encounter to establish care noneactive [facility] Work Phone: Evaluation note* Diagnosis Onset [...] Hyperlipidemia chronic RSD (reflex sympathetic dystrophy) chronic [facility] Work Phone: Evaluation note* Diagnosis Pre-operative [...] Pain Generalized pain documented in this encounter [facility] course Narrative No data available for this section [facility] Discharge instructionsWMart[facility] Work Phone: [facility] Work Phone: Hospital Discharge instructions Additional Instructions Take your diabetic medications at home. Continue oral fluids. Take medications as prescribed. Follow-up with your doctor. Return if any worsening symptoms.[facility] Work Phone: Hospital Discharge instructions No data available for this section [facility] Progress note No data available for this section [facility] Reason for referral (narrative)* Diagnostic Procedure Only (Routine) - Pending Review Specialty Diagnoses / Procedures Referred By Saadia t Referred To Contact XR IMAGING Diagnoses Pain Procedures XR SHOULDER GENERAL 3V OR MORE AP/TRUE AP/OTHER RIGHT RADEX SHOULDER COMPLETE MINIMUM 2 VIEWS Rodolfo Bishop MD [address] [place] [address] Xr Imaging Referral ID Status Reason Start Date Expiration Date Visits Requested Visits Authorized [id number] Pending Review Auto-Generat ed Referral 11/29/2021 12/29/2022 1 1 [facility] for referral (narrative)* Diagnostic Procedure Only (Routine) - Pending Review Specialty Diagnoses / Procedures Referred By Contac t Referred To Contact XR IMAGING Diagnoses Rotator cuff tear arthropathy of right shoulder Procedures XR SHOULDER GENERAL 3V OR MORE AP/TRUE AP/OTHER RIGHT RADEX SHOULDER COMPLETE MINIMUM 2 VIEWS Livia Zurita PA-C [address] [place] [id number] Xr Imaging Referral ID Status Reason Start Date Expiration Date Visits Requested Visits Authorized [id number] Pending Review Auto-Generat ed Referral 03/05/2022 04/04/2023 1 1 [facility] for referral (narrative)* Diagnostic Procedure Only (Routine) - Closed Specialty Diagnoses / Procedures Referred By Contac t Referred To Contact XR IMAGING Diagnoses Pain Procedures XR SHOULDER GENERAL 3V OR MORE AP/TRUE AP/OTHER LT X-RAY SHOULDER COMPLET MIN 2 VIEWS Laverne Duong PA-C [address] [place] [address] Xr Imaging [place] [address] Referral ID Status Reason Start Date Expiration Date V isits Requested Visits Authorized [id number] Closed Auto-Generate d Referral 05/11/2021 06/10/2022 [address] [facility] Summary Purpose Family History Relationship Condition Age at Onset Recorded Date/T daphne Not Specified Malignant neoplasm Unknown father Diabetes mellitus Unknown Hypertension Unknown mother Diabetes mellitus Unknown Advance Directives Documents on File Type Date Recorded Patient Operations Coordinator Expl anation Advance Directive(s) Advance Directive(s) 04/12/2021 10:34 AM Advance Directive(s) 05/02/2020 3:18 PM Advance Directive(s) 10/21/2019 10:23 AM Advance Directive(s) 04/20/2019 9:49 AM Advance Directive Response Recorded Date/ Time Advance Directives No June 08, 2015 3:44pm Living Will No November 24, 2021 10:12am Power of Entry Level Sales Consultant No November 24 10:12am Documents on File Type Date Recorded Patient Operations Coordinator Expl anation Advance Directive(s) Advance Directive(s) 04/12/2021 10:34 AM Advance Directive(s) 05/02/2020 3:18 PM Advance Directive(s) 10/21/2019 10:23 AM Advance Directive(s) 04/20/2019 9:49 AM Advance Directive Response Recorded Date/ Time Advance Directives No June 08, 2015 3:44pm Living Will No March 11, 2022 4:18pm Power of Entry Level Sales Consultant No March 11 4:18pm Advance Directive Response Recorded Date/ Time Advance Directives No March 13, 2022 10:55am Living Will No March 13 10:55am Power of Entry Level Sales Consultant No March 13 10:55am Advance Directive Response Recorded Date/ Time Advance Directives No March 13, 2022 10:55am Living Will No April 04 022 2:54pm Power of Entry Level Sales Consultant No April 04, 2022 2:54pm Advance Directive Response Recorded Date/ Time Advance Directives No March 13, 2022 9:55am Living Will No April 04 1:54pm Power of Entry Level Sales Consultant No April 04, 2022 1:54pm Medications Administered [...] back pain, h/a, n/v Urinary tract infection HEALTH TECHNICIAN, EST CARE. 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 HAS PPW CONFUSION SORE THROAT/EAR [...] section and content) DATE CREATED AUTHOR 01/28/2018 [facility] DATE CREATED AUTHOR AUTHOR'S ORGANIZ ATION 05/03/2021 [facility] DATE CREATED AUTHOR AUTHOR'S ORGANIZ ATION 11/07/2022 [facility] DATE CREATED AUTHOR AUTHOR'S ORGANIZ ATION 12/10/2022 [facility] DATE CREATED AUTHOR AUTHOR'S ORGANIZ ATION 03/15/2024 [facility] ([place]) DATE CREATED AUTHOR AUTHOR'S ORGANIZ ATION 01/09/2025 [facility] DATE CREATED AUTHOR AUTHOR'S ORGANIZ ATION 03/01/2025 [facility] DATE CREATED AUTHOR AUTHOR'S ORGANIZ ATION 03/06/2025 [facility] Source Comments (unrecognize d section and content) In the event this informatio n is protected by the Federal Confidentiality of Alcohol and Drug Abuse Patient Records regulations: The Federal rules restrict any use of the information to criminally investigate or prosecute any alcohol or drug abuse patient.[facility] Hospital[facility] the event this information is protected by the Federal Confidentiality of Alcohol and Drug Abuse Patient Records regulations: The Federal rules restrict any use of the information to criminally investigate or prosecute any alcohol or drug abuse patient.[facility] the event this information is protected by the Federal Confidentiality of Alcohol and Drug Abuse Patient Records regulations: The Federal rules restrict any use of the information to criminally investigate or prosecute any alcohol or drug abuse patient.[facility] Hospital[facility] the event this information is protected by the Federal Confidentiality of Alcohol and Drug Abuse Patient Records regulations: The Federal rules restrict any use of the information to criminally investigate or prosecute any alcohol or drug abuse patient.[facility] Hospital[facility] the event this information is protected by the Federal Confidentiality of Alcohol and Drug Abuse Patient Records regulations: The Federal rules restrict any use of the information to criminally investigate or prosecute any alcohol or drug abuse patient.[facility] HospitalIn the event this information is protected by the Federal Confidentiality of Alcohol and Drug Abuse Patient Records regulations: The Federal rules restrict any use of the information to criminally investigate or prosecute any alcohol or drug abuse patient.[facility] HospitalIn the event this information is protected by the Federal Confidentiality of Alcohol and Drug Abuse Patient Records regulations: The Federal rules restrict any use of the information to criminally investigate or prosecute any alcohol or drug abuse patient.[facility] Reason for Visit (unrecogniz ed section and content) Reason Comments Follow Up Bwc (Worker's Comp) Specialty Diagnoses / Procedures Referred By Saadia smith Referred To Contact [facility] Diagnoses Follow up for: ARTHROSCOPY SHOULDER W/ DEBRIDEMENT LIMITED 1 OR 2 DISCRETE STRUCTURES [36584] - Shoulder - Right Procedures follow up for RIGHT shoulder - surgery date was 05/02/21 [place] [address] [place] [address] [facility] [address] [place] [address] Referral ID Status Reason Start Date Expiration Date Visits Re quested Visits Authorized [id number] Closed 06/26/2021 09/24/2021 1 1 Reason Comments Injections Reason Comments New Pain Stiffness Swelling Weakness Numbness/Tingling Specialty Diagnoses / Procedures Referred By Saadia smith Referred To Contact Orthopedics / ORTHOPAEDIC SURGERY Diagnoses SHOULDER REPLACEMENT CONSULT,RT Procedures REFERRAL TO [facility] FINANCIAL [place] [address] [place] [address] Rodolfo Bishop MD [address] [facility] [place] [phone] Referral ID Status Reason Start Date Expiration Date Visits Requested Visits Authorized [id number] Pending Review Clearance Not Met -Financial Clearance [...] SHOULDER COMPLET MIN 2 VIEWS Laverne Duong, [address] [place] [address] Xr Imaging [place] [address] Referral ID Status Reason Start Date Expiration Date V isits Requested Visits Authorized [id number] Closed Auto-Generate d Referral 05/11/2021 06/10/2022 1 1 Care Teams (unrecognized sec tion and content) Care Team Personnel Name: Javed Workforce Consultant [place] PT Position: P3 Scheduling - Chain Maker Advanced Member Role: Other Name: Jeannette Talavera Position: Quality Review Member Role: Pickle Processor Name: CHANTALE RAMSEY CARE SUPPORT REPRESENTATIVE-ROTARY DRILL RIG OPERATOR Position: P4 Advanced Sack Cleaner Member Role: Primary Care Physician Address: [address] [place] [id number] Telecom: Care Team Related Persons Name: BAN LAY Name: DENNIS HENRIQUEZ Land Degradation Analyst Relationship Specialty Start Date End Date Karl Pichardo MD [address] [place], [place] [phone] PCP - General Family Practice 01/08/18 Land Degradation Analyst Relationship Specialty Start Date End Date Karl Pichardo MD [address] [place], [place] [phone] PCP - General Family Practice 01/08/18 Land Degradation Analyst Relationship Specialty Start Date End Date Karl Pichardo MD [address] [place], [place] [phone] PCP - General Family Practice 01/08/18 Land Degradation Analyst Relationship Specialty Start Date End Date Karl Pichardo MD [address] [place], [place] [phone] PCP - General Family Practice 01/08/18 Land Degradation Analyst Relationship Specialty Start Date End Date Karl Pichardo MD [address] [place], [place] [phone] PCP - General Family Practice 01/08/18 Land Degradation Analyst Relationship Specialty Start Date End Date Karl Pichardo MD [address] [facility] [place] [address] PCP - General Family Medicine 01/08/18 05/13/22 [...] BE BASED ON THE PRIMARY CLINICAL RECORDS. [facility]. provides no warranty or guarantee of the accuracy or completeness of information in this document.
[2025-04-09 12:11] LABS: Hematocrit 44.0 % (37-47); Hemoglobin 14.9 g/dL (12.0-15.0); Immature Granulocytes Count 0.040 X10^3/uL (0.0-0.0); Mean Corp Hgb Conc 33.9 g/dL (32-36); Mean Corpuscular Volume 90.9 fL (81-99); Mean Platelet Vol. 8.9 fl (6.2-12.0); NRBC Flagged by Analyzer 0 % (0-5); Platelet Count 328 K/mm3 (150-450); RBC Distribution Width CV 12.5 % (11.6-14.6); RBC Distribution Width SD 41.9 fl (35.1-43.9); Red Blood Count 4.84 M/mm3 (4.2-5.4); White Blood Count 10.4 K/mm3 (4.4-11.0)
[2025-04-09 12:27] LABS: Lipase 34 U/L (13-75)
[2025-04-09 12:29] LABS: AST(SGOT) 31 U/L (<=31); Alanine Aminotransfer ALT/SGPT 30 U/L (<=34); Albumin, Serum 3.6 g/dL (3.5-5.0); Alkaline Phosphatase 125 U/L (35-104); Anion Gap 16 (5-15); BUN 8 mg/dL (4-19); BUN/Creat Ratio 13.2 RATIO (10-20); Calcium,Total 9.0 mg/dL (7.6-11.0); Carbon Dioxide 16.5 mmol/L (21.0-32.0); Chloride 107 mmol/L (98-108); Estimated Creatinine Clearance 120.26 ml/min (50-250); Globulin 2.9 g/dL (2.2-4.2); Glucose 296 mg/dL (70-99); Potassium 3.6 mmol/L (3.3-5.1)
--- NOTE | 2025-04-09 12:50 | RAD_ITS ---
EXAM: XR Left Knee Complete, 4 or More Views CLINICAL INDICATION: PAIN, FALL TECHNIQUE: Four or more views of the left knee. COMPARISON: No relevant prior studies available. FINDINGS: BONES/JOINTS: Small curvilinear lucency with bony fragment of the medial tibial plateau, best visualized on the AP view. This could be a nondisplaced fracture. No dislocation. SOFT TISSUES: Soft tissue swelling. RAD/Knee 4 or More Views IMPRESSION: Small curvilinear lucency with bony fragment of the medial tibial plateau, best visualized on the AP view. This could be a nondisplaced fracture. Reading Location: [id number]
[2025-04-09 13:24] VITALS: BP 172/88; PULSE 84; RESP 18; TEMP 36.4; O2SAT 98
[2025-04-09 13:26] LABS: Mucous, Urine 0 SEEN /hpf (<or=2+); Red Blood Cells-Urine 0 SEEN /hpf (0-5); Squamous Epithelial Cells - UA 0 SEEN /hpf (5-10)
[2025-04-09 13:29] LABS: Color, Urine Yellow (Yellow); Glucose, Dipstick 100 mg/dl (Normal); Ketone-Dipstick Negative (Negative); Leukocyte Esterase-Dipstick 500 /ul (Negative); Nitrite-Dipstick Positive (Negative); Occult Blood-Urine 50 /ul (Negative); Protein-Dipstick 100 mg/dl (Negative); Specific Gravity, Urine 1.005 (1.002-1.030); Urine Bilirubin Dipstick Negative (Negative)
--- NOTE | 2025-04-09 14:36 | CT_ITS ---
PROCEDURE: EXTREMITY LOWER WITHOUT CONTRA 04/09/2025 REASON FOR EXAM: ABNORMALITY ON KNEE XR RULE OUT TIBIAL PLATEAU FX TECHNIQUE: Procedure Code: CTELWO Modality: CT Procedure: EXTREMITY LOWER WITHOUT CONTRA Coronal and Sagittal reconstruction series were provided. One or more dose reduction techniques were used (e.g., Automated exposure control, adjustment of the mA and/or kV according to patient size, use of iterative reconstruction technique). RADIATION DOSE SUMMARY: CTDlvol: 15.35 mGy DLP: 818.13 mGycm COMPARISON: Left knee radiographic report of April 09, 2025 at 12:46 p.m.. FINDINGS: Osseous: The bones appear slightly demineralized. There is mild femorotibial joint space loss slightly greater involving the medial compartment. There is no positive drawer sign. Small subchondral sclerotic changes are noted along the weight-bearing aspect of the medial tibial plateau and the posterior aspect of the medial femoral condyle which may represent old osteochondral injuries or areas of avascular necrosis. Patellar height is within normal range. Axial patellofemoral alignment is anatomic. There is no acute fracture at the knee. There is no evidence of an acute medial tibial plateau fracture, to correlate with radiographic findings. Proximal and distal tibiofibular congruency is maintained. The ankle mortise is preserved. There is tibiotalar joint space loss and mild degenerative change along the inferior margin of the medial ankle gutter. Mild subchondral cystic changes and sclerosis noted along the medial aspect of the visualized talar dome. Small knee joint effusion noted with trace amount of fluid decompressing into the suprapatellar bursa. There is no lipohemarthrosis seen. Soft tissues: No soft tissue hematoma or soft tissue emphysema seen. Soft tissue injury is not reliably assessed by this technique. If there is clinical suspicion for radiographically occult musculoskeletal injury or internal derangement, further evaluation by MRI is advised. CT/Extremity Lower without Contra IMPRESSION: No radiographic evidence of an acute osseous injury. - Findings and recommendations discussed above in detail. Reading Location: [facility]
[2025-04-09 15:00] VITALS: BP 168/93; PULSE 76; RESP 16; O2SAT 98
[2025-04-09 16:10] VITALS: BP 173/95; PULSE 77; RESP 16; TEMP 36.7; O2SAT 99
== END 2025-04-09 16:13 | disposition home or self-care (01) ==
PROVIDERS: Emergency Provider Student in an Organized Health Care Education/Training Program; PCP Registered Nurse; Visit Provider Student in an Organized Health Care Education/Training Program
DX: R07.81 Pleurodynia (principal); E11.43 Type 2 diabetes mellitus with diabetic autonomic (poly)neuropathy; Z79.4 Long term (current) use of insulin; K31.84 Gastroparesis; N39.0 Urinary tract infection, site not specified; M25.562 Pain in left knee; W19.XXXA Unspecified fall, initial encounter; I10 Essential (primary) hypertension; K21.9 Gastro-esophageal reflux disease without esophagitis; F41.1 Generalized anxiety disorder; F32.A Depression, unspecified; M17.0 Bilateral primary osteoarthritis of knee; F43.10 Post-traumatic stress disorder, unspecified; E78.00 Pure hypercholesterolemia, unspecified; J45.909 Unspecified asthma, uncomplicated; Z87.19 Personal history of other diseases of the digestive system; Z86.73 Personal history of transient ischemic attack (TIA), and cerebral infarction without residual deficits; Z79.85 Long-term (current) use of injectable non-insulin antidiabetic drugs; Z79.899 Other long term (current) drug therapy
CPT/HCPCS: 71260; 73564; 73700; 74177; 80053; 81001; 83690; 85025; 93005; 96374; 96375; 99285; Q9967; A4216; J2405

== ENCOUNTER 2025-04-12 15:46 | Emergency (ER) | payer MEDICAID, SELFPAY ==
[2025-04-12 15:47] VITALS: BP 142/91; PULSE 89; RESP 16; TEMP 36.9; O2SAT 97; BMI 31.4
[2025-04-12 17:17] VITALS: BP 182/91; PULSE 84; RESP 17; TEMP 36.8; O2SAT 97
--- NOTE | 2025-04-12 17:39 | ED.VIS.FEGU ---
HPI HPI - Female History of Present Illness Chief Complaint: Abd Pain PFSH PFSH Medical History Osteoarthritis of left knee Left knee pain Osteoarthritis of right knee Contusion of right chest wall Contusion of right shoulder Contusion of forehead History of diabetes mellitus PTSD (post-traumatic stress disorder) Wears glasses Marijuana use Diabetes Arthritis Easy bruising High cholesterol Restless legs Injury of head and neck Difficulty swallowing Gastric reflux Non-smoker History of stress test History of echocardiogram Cardiology follow-up encounter SACHA (generalized anxiety disorder) Strain of right hip History of colon polyps Acute otitis externa of left ear Acute sinusitis, unspecified TIA (transient ischemic attack) Episode of syncope Urinary tract infection with hematuria Contusion of right ankle Contusion of right foot GI bleed Positive PPD, treated Pneumonia Bronchitis Statin intolerance Dyspnea on exertion Chest pain Near syncope Orthostatic hypotension Hyperlipidemia GERD (gastroesophageal reflux disease) RSD (reflex sympathetic dystrophy) Essential hypertension Diabetes mellitus type II, controlled Strain of unspecified muscle, fascia and tendon at shoulder and upper arm level, right arm, initial encounter Asthma Shoulder pain Hemorrhoids Nausea & vomiting Depressed Asthma Medical History no medical history Home Medications ?Medication ?Instructions ?Recorded ?Last Taken ?Type ezetimibe 10 mg tablet 10 mg PO DAILY CHOLESTEROL #90 tabs 04/19/21 Unknown Rx diphenhydramine HCl 25 mg capsule 25 mg PO DAILY PRN allergy symptoms 03/28/22 Unknown History duloxetine 60 mg capsule,delayed 120 mg (2 x 60 mg) PO DAILY 10/15/22 Unknown Rx release ANXIETY 30 days #60 caps albuterol sulfate 90 mcg/actuation 2 puff inhalation Q4H PRN PRN 01/04/23 Unknown Rx aerosol inhaler (Ventolin HFA) Wheezing or shortness of breath #1 inh pen needle, diabetic 32 gauge x #100 ea 03/05/23 Unknown Rx 5/32 (BD Ultra-Fine Thais Pen Needle) alcohol swabs 1 pad topical 4X/DAY #200 ea 04/28/23 Unknown Rx ondansetron 4 mg disintegrating 4 mg PO Q6H PRN nausea and 04/28/23 Unknown Rx tablet vomiting #10 tabs allopurinol 100 mg tablet 100 mg PO DAILY 06/18/23 Unknown History pen needle, diabetic 32 gauge x #100 ea 10/23/23 Unknown Rx 5/32 (BD Ultra-Fine Thais Pen Needle) lorazepam 1 mg tablet 0.5 mg (1/2 x 1 mg) PO DAILY PRN 12/03/23 Unknown Rx Anxiety #30 tabs ibuprofen 800 mg tablet 800 mg PO DAILY 12/24/23 Unknown History insulin aspart U-100 100 unit/mL 18 sliding scale dose subcut TID 12/24/23 Unknown History (3 mL) subcutaneous pen (Novolog FlexPen U-100 Insulin aspart) hydroxyzine HCl 25 mg tablet 25 mg PO DAILY PRN anxiety 02/29/24 Unknown History colchicine 0.6 mg capsule 0.6 mg PO QDAY PRN Gout 04/21/24 Unknown History furosemide 20 mg tablet 20 mg PO QDAY 04/21/24 Unknown History losartan 100 mg tablet 100 mg PO QDAY 04/21/24 Unknown History omega-3 acid ethyl esters 1 gram 1 cap PO BID #180 caps 04/26/24 Unknown Rx capsule flash glucose sensor (FreeStyle #2 ea 06/21/24 Unknown Rx Tanmay 2 Sensor kit) omeprazole 20 mg capsule,delayed 40 mg PO DAILY GERD 07/19/24 Unknown History release insulin glargine 100 unit/mL (3 30 unit (0.3 mL) subcut QAM #27 mL 08/02/24 Unknown Rx mL) subcutaneous pen (Basaglar KwikPen U-100 Insulin) dicyclomine 10 mg capsule 10 mg PO TID PRN abdominal pain 7 11/07/24 Unknown Rx days #21 caps zinc acetate 25 mg (zinc) capsule 25 mg PO DAILY 11/07/24 Unknown History (Galzin) mecobalamin (vitamin B12) 500 mcg mcg PO 01/07/25 Unknown History chewable tablet dulaglutide 4.5 mg/0.5 mL 4.5 mg (0.5 mL) subcut QWEEK #2 mL 01/17/25 Unknown Rx subcutaneous pen injector (Trulicity) fluconazole 100 mg tablet 100 mg PO DAILY vaginal yeast 01/17/25 Unknown Rx (Diflucan) infection #2 tabs insulin glargine 100 unit/mL (3 30 unit (0.3 mL) subcut QDAY #27 mL 01/20/25 Unknown Rx mL) subcutaneous pen (Lantus Solostar U-100 Insulin) cholecalciferol (vitamin D3) 50 50 mcg PO QDAY #90 caps 03/28/25 Unknown Rx mcg (2,000 unit) capsule nitrofurantoin 100 mg PO Q12H 5 days #10 caps 04/09/25 Unknown Rx monohydrate/macrocrystals 100 mg capsule (Macrobid) metoclopramide HCl 5 mg tablet 5 mg PO Q8H 3 days #9 tabs 04/12/25 Unknown Rx (Reglan) nitrofurantoin macrocrystal 100 mg 100 mg PO BID 7 days #14 caps 04/12/25 Unknown Rx capsule Allergy/AdvReac Type Severity Reaction Status Date / Time clindamycin Allergy Mild Rash Verified 04/12/25 15:50 adalimumab (From Humira) Allergy Unknown Verified 04/12/25 15:50 amoxicillin trihydrate (From Allergy Unknown Verified 04/12/25 15:50 Augmentin) codeine Allergy Itching Verified 04/12/25 15:50 etanercept (From Enbrel) Allergy Unknown Verified 04/12/25 15:50 leflunomide (From Arava) Allergy Other Verified 04/12/25 15:50 metoprolol tartrate (From Allergy Unknown Verified 04/12/25 15:50 Lopressor) morphine sulfate (From Allergy Unknown Verified 04/12/25 15:50 Embeda) naltrexone HCl (From Embeda) Allergy Unknown Verified 04/12/25 15:50 oxymorphone (Oxymorphone) Allergy Unknown Verified 04/12/25 15:50 pioglitazone HCl (From Actos) Allergy Other Verified 04/12/25 15:50 pneumococcal 23-valent Allergy Unknown Verified 04/12/25 15:50 polysacchari (From Pneumovax 23) potassium clavulanate (From Allergy Unknown Verified 04/12/25 15:50 Augmentin) Khaeyjy-DEE-RnE Reductase Allergy Unknown Verified 04/12/25 15:50 Inhibitor (Diuqwvy-Dkr-Sjr Reductase Inhibitor) Sulfa (Sulfonamide Allergy Anaphylaxis Verified 04/12/25 15:50 Antibiotics) sulfamethoxazole (From Allergy Anaphylaxis Verified 04/12/25 15:50 Bactrim) telithromycin (From Ketek) Allergy Unknown Verified 04/12/25 15:50 tramadol HCl (From Ultram) Allergy Unknown Verified 04/12/25 15:50 trimethoprim (From Bactrim) Allergy Anaphylaxis Verified 04/12/25 15:50 Family History Father Diabetes Hypertension Mother Diabetes Hypertension Colon polyp Other Cancer Family History no significant family his Surgical History History of arthroscopy of right knee History of hysterectomy History of appendectomy History of colonoscopy Hx of shoulder surgery Surgical History no surgical history Social History household members: none Smoking Status: Never smoker alcohol intake: current alcohol intake frequency: 0-2 drinks per day Alcohol type: hard liquor substance use type: other details: Gummies EXAM Physical Exam Const Vital Signs: 04/12/25 15:47 04/12/25 17:17 04/12/25 18:00 Temperature 98.4 F 98.2 F 98.2 F Temperature Source Oral Oral Oral Pulse Rate 89 84 85 Respiratory Rate 16 17 20 H Blood Pressure 142/91 H 182/91 H 177/100 H Blood Pressure Mean 108 121 125 Pulse Ox 97 97 96 Oxygen Delivery Method Room Air Room Air Room Air 04/12/25 19:00 04/12/25 21:50 04/12/25 22:04 Temperature 96.7 F L 96.7 F L Temperature Source Temporal Pulse Rate 82 89 89 Respiratory Rate 20 H 17 16 Blood Pressure 169/99 H 171/101 H 171/101 H Blood Pressure Mean 122 124 124 Pulse Ox 97 95 95 Oxygen Delivery Method Room Air Room Air MDM MDM MDM Narrative Medical decision making narrative: HISTORY OF PRESENT ILLNESS: Chief complaint: Nausea vomiting, abdominal 59-year-old female history of hypertension, type diabetes, anemia, GERD presents with nausea vomiting and bloating up to the diaphragm. No she was recently diagnosed UTI however she cannot take the antibiotic secondary to nausea and vomiting. She further states she has had 1 week of abdominal pain. Notes burning with urination. Patient also notes left-sided chest pain after a fall a week ago. REVIEW OF SYSTEMS: Pertinent positives: Abdominal pain, nausea vomiting, constipation Pertinent negatives: Fever, chest pain, shortness of breath PHYSICAL EXAM: Nursing triage notes reviewed, Vital signs reviewed Constitutional: please see mdm HENT: MMM Eyes: Pupils equal round and reactive to light, Extraocular muscles intact Neck: No stridor, no JVD, full neck ROM Lungs: Clear to auscultation, No wheezing or rales. No increased work of breathing, no conversational dyspnea, no accessory muscle use, no nasal flaring. No respiratory distress noted Heart: Regular rate and rhythm, No murmurs, No rubs and No gallops, 2+ distal pulses (radial, femoral, posterior tibial) in all extremities Abdomen: Soft, there is no tenderness, rigidity, rebound or guarding, no obvious peritoneal signs, no palpable pulsatile abdominal masses, no auscultated abdominal bruit : No CVAT Extremities: No edema Neuro: No new focal neurological deficits, cranial nerves II through XII intact, 5/5 strength in all present extremities. Intact sensation to light touch in all present extremities, 2+ reflexes bilateral patella tendons. Skin: No rash or lesions noted MEDICAL DECISION MAKING: Chief Complaint: please see [facility] External records reviewed: Reviewed patient CT scan. CT scan abdomen pelvis from November 2024 shows no acute findings in the abdomen pelvis Factors affecting care: As per HPI Social determinants of health: Positive marijuana use History obtained from others: none Consults: none [facility] Narrative: The patient was initially hemodynamically stable, afebrile and nontoxic-appearing. Exam benign abdomen. I considered the following differential diagnosis: UTI, pyelonephritis, volvulus, perforation, nephrolithiasis I obtained a broad lab and imaging work to further determine if the patient was suffering from a life-threatening etiology. I initially treated the patient IV fluids, morphine and Zofran. ALL IMAGES (IF OBTAINED) HAVE BEEN PERSONALLY REVIEWED AND INTERPRETED BY MYSELF. CBC with no leukocytosis, noted hemoconcentration consistent with dehydration, no BMP without evidence of significant electrolyte abnormalities, no anion gap, no acute kidney injury. LFTs show no evidence of hepatobiliary pathology. High-sensitivity troponin is negative, no evidence of myocardial ischemia x 2 Urinalysis with leuk esterase but no sign of nitrites or bacteria. Lipase is wnl indicating no pancreatic inflammation. CT scan of the abdomen pelvis shows no evidence of obvious acute surgical abdominal process CT scan of the chest shows no evidence of pneumothorax but does show a left T7 rib fracture. Upon re-evaluation patient still noted nausea. She was treated with Reglan and Dilaudid. Allergies interventions patient no improvement in pain and nausea. She is able tolerate p.o. in the form of nitrofurantoin. Labs imaging studies consistent with likely cystitis. Will give nitrofurantoin and Reglan for home-going. Rib pain likely secondary to rib fracture. Encouraged Tylenol ibuprofen and incentive spirometry. A Single rib fracture does not require admission. The patient stable for discharge home as no life-limiting allergy could be ascertained. The patient and/or family, caregivers express understanding. The patient and/or family, caregivers agrees with the plan. Shared decision making: I will have a discussion with the patient and or visitors regarding risk/benefits of further testing or admission. They will be made aware of of the risk/benefits inherent in this decision they will be given the opportunity to voice understanding. Total critical care time today provided was at least 0 minutes. This excludes separately billable procedures. Critical care time (if documented) is secondary to the patient having high probability of clinically significant/life threatening deterioration in the patient's condition which required my urgent intervention. Impression: 1. UTI 2. Acute abdominal pain 3. Rib fracture Dispo: Discharge home This note was generated with Square dictation software. It may contain incorrect words, spelling, and punctuation that were not noted in review of the chart prior to signing. Lab Data Labs: Laboratory Results - last 24 hr 04/12/25 04/12/25 04/12/25 17:20 18:53 19:57 WBC 7.5 RBC 5.07 Hgb 15.6 H Hct 46.6 MCV 91.9 MCH 30.8 MCHC 33.5 RDW Std Deviation 42.0 RDW Coeff of [place] 12.5 Plt Count 327 MPV 9.3 Immature Gran % (Auto) 0.300 Neut % (Auto) 57.4 Lymph % (Auto) 31.9 Lewis % (Auto) 8.0 Eos % (Auto) 2.0 Baso % (Auto) 0.4 Absolute Neuts (auto) 4.3 Absolute Lymphs (auto) 2.38 Nucleated RBC % 0 Sodium 138 Potassium 3.7 Chloride 102 Carbon Dioxide 21.5 Anion Gap 14 BUN 9 Creatinine 0.69 L Estim Creat Clear Calc 106.41 Est GFR (MDRD) Non-Af 101 BUN/Creatinine Ratio 13.5 Glucose 235 H Calcium 9.2 Total Bilirubin 0.42 AST 41 H ALT 28 Alkaline Phosphatase 133 H Troponin T High Sens < 6 Troponin T Hi Sens 2 Hr < 6 Total Protein 6.6 Albumin 3.6 Globulin 3.0 Albumin/Globulin Ratio 1.2 Lipase 27 Urine Color Yellow Urine Clarity Clear Urine pH 7.0 Ur Specific [place] 1.010 Urine Protein 30 H Urine Glucose (UA) Normal Urine Ketones Negative Urine Occult Blood Negative Urine Nitrite Negative Urine Bilirubin Negative Urine Urobilinogen 4 H Ur Leukocyte Esterase 25 H Urine RBC 0-5 SEEN Urine WBC 5-10 SEEN Ur Squamous Epith Cells 5-10 SEEN Urine Bacteria 0 SEEN Urine Mucus 0 SEEN Radiography Diagnostic Testing: Clinical Impression(s) from Imaging Studies Abdomen/Pelvis CT 04/12/25 19:05 IMPRESSION: Mildly thickened urinary bladder wall which may reflect cystitis vs nondistention; consider correlation with urinalysis. [id number] 04/12/25 19:05 IMPRESSION: Nondisplaced left anterior T7 rib fracture. No pneumothorax. No focal consolidations. Reading [id number] Dis[facility] Plan Triage Chief Complaint: Abd Pain Other Complaint: Complaint ED Provider: Hawk Mejia Dx/Rx/DC Orders Instructions: ED Abdominal Pain Unkn Cause Fem, ED UTIs Women Prescriptions: New metoclopramide HCl [Reglan] 5 mg tablet 5 mg PO Q8H 3 Days Qty: 9 0RF nitrofurantoin macrocrystal 100 mg capsule 100 mg PO BID 7 Days Qty: 14 0RF Rx Instructions: must administer with a meal/food No Action duloxetine 60 mg capsule,delayed release(DR/EC) 120 mg PO DAILY 30 Days Qty: 60 2RF alcohol swabs Pads, Medicated 1 pad topical 4X/DAY Qty: 200 5RF allopurinol 100 mg tablet 100 mg PO DAILY insulin aspart U-100 [Novolog FlexPen U-100 Insulin] 100 unit/mL (3 mL) insulin pen 18 sliding scale dose subcut TID ibuprofen 800 mg tablet 800 mg PO DAILY mecobalamin (vitamin B12) 500 mcg tablet,chewable PO furosemide 20 mg tablet 20 mg PO QDAY losartan 100 mg tablet 100 mg PO QDAY colchicine 0.6 mg capsule 0.6 mg PO QDAY PRN (Reason: Gout) Trulicity 4.5 mg/0.5 mL pen injector 4.5 mg subcut QWEEK Qty: 2 3RF fluconazole [Diflucan] 100 mg tablet 100 mg PO DAILY Qty: 2 0RF Rx Instructions: 1 tablet, repeat in 72 hours omeprazole 20 mg capsule,delayed release(DR/EC) 40 mg PO DAILY Patient Comments: gastric reflux diphenhydramine HCl 25 mg capsule 25 mg PO DAILY PRN (Reason: allergy symptoms) ondansetron 4 mg tablet,disintegrating 4 mg PO Q6H PRN (Reason: nausea and vomiting) Qty: 10 0RF albuterol sulfate [Ventolin HFA] 90 mcg/actuation HFA aerosol inhaler 2 puff inhalation Q4H PRN PRN (Reason: Wheezing or shortness of breath) Qty: 1 0RF hydroxyzine HCl 25 mg tablet 25 mg PO DAILY PRN Galzin 25 mg (zinc) capsule 25 mg PO DAILY dicyclomine 10 mg capsule 10 mg PO TID PRN (Reason: abdominal pain) 7 Days Qty: 21 0RF nitrofurantoin monohyd/m-cryst [Macrobid] 100 mg capsule 100 mg PO Q12H 5 Days Qty: 10 0RF Rx Instructions: must administer with a meal/food ezetimibe 10 mg tablet 10 mg PO DAILY Qty: 90 3RF (DME) pen needle, diabetic [BD Ultra-Fine Thias Pen Needle] 32 gauge x 5/32 needle See Rx Instructions .Route Qty: 100 5RF Rx Instructions: daily (DME) pen needle, diabetic [BD Ultra-Fine Thais Pen Needle] 32 gauge x 5/32 needle See Rx Instructions .Route Qty: 100 5RF Rx Instructions: 4x/day lorazepam 1 mg tablet 0.5 mg PO DAILY PRN (Reason: Anxiety) Qty: 30 1RF omega-3 acid ethyl esters 1 gram capsule 1 cap PO BID Qty: 180 1RF (DME) FreeStyle Tanmay 2 Sensor Kit See Rx Instructions .Route Qty: 2 5RF Rx Instructions: 1 sensor q 14 days insulin glargine [Basaglar KwikPen U-100 Insulin] 100 unit/mL (3 mL) insulin pen 30 unit subcut QAM Qty: 27 1RF insulin glargine [Lantus Solostar U-100 Insulin] 100 unit/mL (3 mL) insulin pen 30 unit subcut QDAY Qty: 27 1RF cholecalciferol (vitamin D3) 50 mcg (2,000 unit) capsule 50 mcg PO QDAY Qty: 90 1RF Primary Care Provider: Chantale Palm NP Referrals: Chantale Palm NP, [employer] [facility] [Primary Care Provider] - Activity Restrictions/Additional Instructions: Thank you for trusting us with your care today! Please take antibiotics until course complete. Please take Reglan as needed for nausea vomiting control Please return to the emergency department if your symptoms change or worsen. Please follow with your primary care physician for further outpatient evaluation and management. Print Language: Mauritanian Disposition Disposition: Home, Self Care Discharge Date/Time: 04/12/25 22:06
[2025-04-12] MEDS: 0.9% Normal Saline (1000mL) 1,000 ML 999 ML IV (17:58)
[2025-04-12 18:00] VITALS: BP 177/100; PULSE 85; RESP 20; TEMP 36.8; O2SAT 96
[2025-04-12 18:07] LABS: Hematocrit 46.6 % (37-47); Hemoglobin 15.6 g/dL (12.0-15.0); Immature Granulocytes Count 0.020 X10^3/uL (0.0-0.0); Mean Corp Hgb Conc 33.5 g/dL (32-36); Mean Corpuscular Volume 91.9 fL (81-99); Mean Platelet Vol. 9.3 fl (6.2-12.0); NRBC Flagged by Analyzer 0 % (0-5); Platelet Count 327 K/mm3 (150-450); RBC Distribution Width CV 12.5 % (11.6-14.6); RBC Distribution Width SD 42.0 fl (35.1-43.9); Red Blood Count 5.07 M/mm3 (4.2-5.4); White Blood Count 7.5 K/mm3 (4.4-11.0)
[2025-04-12 18:29] LABS: Lipase 27 U/L (13-75); Troponin T High Sensitivity < 6 ng/L (<=14)
[2025-04-12 18:32] LABS: AST(SGOT) 41 U/L (<=31); Alanine Aminotransfer ALT/SGPT 28 U/L (<=34); Albumin, Serum 3.6 g/dL (3.5-5.0); Alkaline Phosphatase 133 U/L (35-104); Anion Gap 14 (5-15); BUN 9 mg/dL (4-19); BUN/Creat Ratio 13.5 RATIO (10-20); Calcium,Total 9.2 mg/dL (7.6-11.0); Carbon Dioxide 21.5 mmol/L (21.0-32.0); Chloride 102 mmol/L (98-108); Estimated Creatinine Clearance 106.41 ml/min (50-250); Globulin 3.0 g/dL (2.2-4.2); Glucose 235 mg/dL (70-99); Potassium 3.7 mmol/L (3.3-5.1)
[2025-04-12 18:59] LABS: Mucous, Urine 0 SEEN /hpf (<or=2+)
[2025-04-12 19:00] VITALS: BP 169/99; PULSE 82; RESP 20; O2SAT 97
--- NOTE | 2025-04-12 19:05 | CT_ITS ---
PROCEDURE: CHEST WITHOUT CONTRAST 04/12/2025 REASON FOR EXAM: LEFT SIDED RIB PAIN TECHNIQUE: Chest CT without contrast. Coronal and Sagittal reconstruction series were provided. One or more dose reduction techniques were used (e.g., Automated exposure control, adjustment of the mA and/or kV according to patient size, use of iterative reconstruction technique RADIATION DOSE SUMMARY: DLP: 1819 mGycm COMPARISON: None FINDINGS: LUNGS AND PLEURA: No infiltrate. No pleural effusion. No pneumothorax. No pleural thickening. No nodules or masses. MEDIASTINUM: No lymphadenopathy or mass. The heart shows no acute findings. The aorta shows no acute findings. The pulmonary trunk and branches of the vessels in the mediastinum are within normal limits. SUPRACLAVICULAR AND AXILLARY: No abnormalities seen in these regions. No mass or significant lymphadenopathy. UPPER ABDOMEN: The visualized upper abdomen is unremarkable. BONES AND SOFT TISSUES: Nondisplaced left anterior T7 rib fracture. The subcutaneous soft tissues are unremarkable. CT/Chest without Contrast IMPRESSION: Nondisplaced left anterior T7 rib fracture. No pneumothorax. No focal consoli dations. Reading [id number]
--- NOTE | 2025-04-12 19:05 | CT_ITS ---
PROCEDURE: ABDOMEN/PELVIS W IV CONT ONLY 04/12/2025 REASON FOR EXAM: ABDOMINAL PAIN TECHNIQUE: Procedure Code: [id number] Modality: CT Procedure: ABDOMEN/PELVIS W IV CONT ONLY Coronal and Sagittal reconstruction series were provided. CONTRAST: 100 mL of Isovue 370 One or more dose reduction techniques were used (e.g., Automated exposure control, adjustment of the mA and/or kV according to patient size, use of iterative reconstruction technique. RADIATION DOSE SUMMARY: DLP: 1819 mGycm COMPARISON: 04/09/25 FINDINGS: Limited sections of the lung bases demonstrate no focal pulmonary mass or consolidations. The liver, spleen, pancreas, and both adrenal glands demonstrate no acute findings. Hepatomegaly to 17.7 cm. The gallbladder is surgically removed The stomach is unremarkable. The small bowel loops are not dilated. The appendix is surgically removed. No colonic obstruction. There is no free air or significant free fluid. The kidneys are unremarkable. Mildly thickened urinary bladder wall which may reflect cystitis vs nondistention; consider correlation with urinalysis. The pelvic structures are intact. Uterus is surgically removed. No significant lymphadenopathy. The aorta and IVC demonstrate no acute findings. Visualized osseous structures demonstrate no acute abnormality. CT/Abdomen/Pelvis W IV Cont ONLY IMPRESSION: Mildly thickened urinary bladder wall which may reflect cystitis vs nondistenti on; consider correlation with urinalysis. Reading [id number]
[2025-04-12 19:24] LABS: Color, Urine Yellow (Yellow); Glucose, Dipstick Normal (Normal); Ketone-Dipstick Negative (Negative); Leukocyte Esterase-Dipstick 25 /ul (Negative); Nitrite-Dipstick Negative (Negative); Occult Blood-Urine Negative /ul (Negative); Protein-Dipstick 30 mg/dl (Negative); Specific Gravity, Urine 1.010 (1.002-1.030); Urine Bilirubin Dipstick Negative (Negative)
[2025-04-12 20:47] LABS: Troponin T High Sens 2 HR < 6 ng/L (<=14)
[2025-04-12 20:57] LABS: Red Blood Cells-Urine 0-5 SEEN /hpf (0-5); Squamous Epithelial Cells - UA 5-10 SEEN /hpf (5-10)
[2025-04-12 21:50] VITALS: BP 171/101; PULSE 89; RESP 17; TEMP 35.9; O2SAT 95
[2025-04-12 22:04] VITALS: BP 171/101; PULSE 89; RESP 16; TEMP 35.9; O2SAT 95
== END 2025-04-12 22:06 | disposition home or self-care (01) ==
PROVIDERS: Emergency Provider Emergency Medicine; PCP Registered Nurse; Visit Provider Emergency Medicine
DX: N39.0 Urinary tract infection, site not specified (principal); E11.9 Type 2 diabetes mellitus without complications; Z79.4 Long term (current) use of insulin; S22.32XA Fracture of one rib, left side, initial encounter for closed fracture; W19.XXXA Unspecified fall, initial encounter; K21.9 Gastro-esophageal reflux disease without esophagitis; D64.9 Anemia, unspecified; F41.1 Generalized anxiety disorder; F32.A Depression, unspecified; F43.10 Post-traumatic stress disorder, unspecified; E78.00 Pure hypercholesterolemia, unspecified; M17.0 Bilateral primary osteoarthritis of knee; G25.81 Restless legs syndrome; J45.909 Unspecified asthma, uncomplicated; Z87.19 Personal history of other diseases of the digestive system; Z86.73 Personal history of transient ischemic attack (TIA), and cerebral infarction without residual deficits; Z79.85 Long-term (current) use of injectable non-insulin antidiabetic drugs; Z79.899 Other long term (current) drug therapy; Z86.0100 Personal history of colon polyps, unspecified
CPT/HCPCS: 71250; 74177; 80053; 81001; 83690; 84484; 85025; 93005; 96361; 96374; 96375; 99284; Q9967; A4216; J2405

== ENCOUNTER 2025-04-15 13:22 | Emergency (ER) | payer MEDICAID, SELFPAY ==
[2025-04-15 13:23] VITALS: BP 170/103; PULSE 94; RESP 18; TEMP 36.2; O2SAT 96; BMI 30.9
--- NOTE | 2025-04-15 17:10 | EDS_ITS ---
HPI History of Present Illness Chief Complaint: Other, Pain/Inj Detail of Chief Complaint: Rib pain due to seventh rib fracture Informant: patient Onset/Context/Timing Onset: Days Context: Sudden Onset Timing: Continuous Quality: Pain left sided chest anteriorly Location: Couple fingerbreadths below the left breast Current Severity: Mild Maximum Severity: Severe Worsened by: Breathing, movement, bending Relieved by: Nothing Associated Symptoms Associated Symptoms: None Narrative Narrative: Patient was seen on April 12. She was diagnosed with a anterior left seventh rib fracture. She was not prescribed any pain medicine. She presents because of pain. She states it hurts to breathe or move or do anything. She states she cannot sleep because of the pain. She has no other complaints. Prior similar symptoms: Yes Recent Illness/Hospitalization: Yes PFSH [facility] Medical History Osteoarthritis of left knee Left knee pain Osteoarthritis of right knee Contusion of right chest wall Contusion of right shoulder Contusion of forehead History of diabetes mellitus PTSD (post-traumatic stress disorder) Wears glasses Marijuana use Diabetes Arthritis Easy bruising High cholesterol Restless legs Injury of head and neck Difficulty swallowing Gastric reflux Non-smoker History of stress test History of echocardiogram Cardiology follow-up encounter SACHA (generalized anxiety disorder) Strain of right hip History of colon polyps Acute otitis externa of left ear Acute sinusitis, unspecified TIA (transient ischemic attack) Episode of syncope Urinary tract infection with hematuria Contusion of right ankle Contusion of right foot GI bleed Positive PPD, treated Pneumonia Bronchitis Statin intolerance Dyspnea on exertion Chest pain Near syncope Orthostatic hypotension Hyperlipidemia GERD (gastroesophageal reflux disease) RSD (reflex sympathetic dystrophy) Essential hypertension Diabetes mellitus type II, controlled Strain of unspecified muscle, fascia and tendon at shoulder and upper arm level, right arm, initial encounter Asthma Shoulder pain Hemorrhoids Nausea & vomiting Depressed Home Medications ?Medication ?Instructions ?Recorded ?Last Taken ?Type ezetimibe 10 mg tablet 10 mg PO DAILY CHOLESTEROL # 90 tabs 04/19/21 Unknown Rx diphenhydramine HCl 25 mg capsule 25 mg PO DAILY PRN a llergy symptoms 03/28/22 Unknown History duloxetine 60 mg capsule,delayed 120 mg (2 x 60 mg) PO DAILY 10/15/22 Unknown Rx release ANXIETY 30 days #60 caps albuterol sulfate 90 mcg/actuation 2 puff inhalation Q 4H PRN PRN 01/04/23 Unknown Rx aerosol inhaler (Ventolin HFA) Wheezing or shortness o f breath #1 inh pen needle, diabetic 32 gauge x #100 ea 03/05/23 Unkno wn Rx 32 (BD Ultra-Fine Thais Pen Needle) alcohol swabs 1 pad topical 4X/DAY #200 ea 04/28/23 Unknown Rx ondansetron 4 mg disintegrating 4 mg PO Q6H PRN nausea and 04/28/23 Unknown Rx tablet vomiting #10 tabs allopurinol 100 mg tablet 100 mg PO DAILY 06/18/23 Unk nown History pen needle, diabetic 32 gauge x #100 ea 10/23/23 Unkno wn Rx 32 (BD Ultra-Fine Thais Pen Needle) lorazepam 1 mg tablet 0.5 mg (1/2 x 1 mg) PO DAILY PRN 12/03/23 Unknown Rx Anxiety #30 tabs ibuprofen 800 mg tablet 800 mg PO DAILY 12/24/23 Unk nown History insulin aspart U-100 100 unit/mL 18 sliding scale dose subcut TID 12/24/23 Unknown History (3 mL) subcutaneous pen (Novolog FlexPen U-100 Insulin aspart) hydroxyzine HCl 25 mg tablet 25 mg PO DAILY PRN anxiet y 02/29/24 Unknown History colchicine 0.6 mg capsule 0.6 mg PO QDAY PRN Gout 04/04 03/27 Unknown History furosemide 20 mg tablet 20 mg PO QDAY 04/21/24 Unkno wn History losartan 100 mg tablet 100 mg PO QDAY 04/21/24 Unkn own History omega-3 acid ethyl esters 1 gram 1 cap PO BID #180 cap s 04/26/24 Unknown Rx capsule flash glucose sensor (FreeStyle #2 ea 06/21/24 Unknown Rx Tanmay 2 Sensor kit) omeprazole 20 mg capsule,delayed 40 mg PO DAILY GERD 1 09/19/23 Unknown History release insulin glargine 100 unit/mL (3 30 unit (0.3 mL) subcu t QAM #27 mL 08/02/24 Un known Rx mL) subcutaneous pen (Basaglar KwikPen U-100 Insulin) dicyclomine 10 mg capsule 10 mg PO TID PRN abdominal p ain 7 11/07/24 Unknown Rx days #21 caps zinc acetate 25 mg (zinc) capsule 25 mg PO DAILY 11/07 Unknown History (Galzin) mecobalamin (vitamin B12) 500 mcg mcg PO 01/07/25 Unkn own History chewable tablet dulaglutide 4.5 mg/0.5 mL 4.5 mg (0.5 mL) subcut QWEEK #2 mL 01/17/25 Unknown Rx subcutaneous pen injector (Trulicity) fluconazole 100 mg tablet 100 mg PO DAILY vaginal yeas t 01/17/25 Unknown Rx (Diflucan) infection #2 tabs insulin glargine 100 unit/mL (3 30 unit (0.3 mL) subcu t QDAY #27 mL 01/20/25 Unknown Rx mL) subcutaneous pen (Lantus Solostar U-100 Insulin) cholecalciferol (vitamin D3) 50 50 mcg PO QDAY #90 cap s 03/28/25 Unknown Rx mcg (2,000 unit) capsule nitrofurantoin 100 mg PO Q12H 5 days #10 ca ps 04/09/25 Unknown Rx monohydrate/macrocrystals 100 mg capsule (Macrobid) metoclopramide HCl 5 mg tablet 5 mg PO Q8H 3 days #9 t abs 04/12/25 Unknown Rx (Reglan) nitrofurantoin macrocrystal 100 mg 100 mg PO BID 7 day s #14 caps 04/12/25 Unknown Rx capsule morphine 15 mg immediate release 15 mg PO Q8H PRN pain 7 days #21 04/15/25 Unknown Rx tablet tabs Allergy/AdvReac Type Severity Reaction Status Date / Time clindamycin Allergy Mild Rash Verified 04/15/25 13:23 adalimumab (From Humira) Allergy Unknown Verified 04/15/25 13:23 amoxicillin trihydrate (From Allergy Unknown Verified 04/15/25 13:23 Augmentin) codeine Allergy Itching Verified 04/15/25 13:23 etanercept (From Enbrel) Allergy Unknown Verified 04/15/25 13:23 leflunomide (From Arava) Allergy Other Verified 04/15/25 13:23 metoprolol tartrate (From Allergy Unknown Verified 04/15/25 13:23 Lopressor) morphine sulfate (From Allergy Unknown Verified 04/15/25 13:23 Embeda) naltrexone HCl (From Embeda) Allergy Unknown Verified 04/15/25 13:23 oxymorphone (Oxymorphone) Allergy Unknown Verified 04/15/25 13:23 pioglitazone HCl (From Actos) Allergy Other Verified 04/15/25 13:23 pneumococcal 23-valent Allergy Unknown Verified 04/15/25 13:23 polysacchari (From Pneumovax 23) potassium clavulanate (From Allergy Unknown Verified 04/15/25 13:23 Augmentin) Hqazifa-CZO-CtF Reductase Allergy Unknown Verified 04/15/25 13:23 Inhibitor (Oxhqeuf-Qwj-Mnv Reductase Inhibitor) Sulfa (Sulfonamide Allergy Anaphylaxis Verified 04/15/25 13:23 Antibiotics) sulfamethoxazole (From Allergy Anaphylaxis Verified 04/15/25 13:23 Bactrim) telithromycin (From Ketek) Allergy Unknown Verified 04/15/25 13:23 tramadol HCl (From Ultram) Allergy Unknown Verified 04/15/25 13:23 trimethoprim (From Bactrim) Allergy Anaphylaxis Verified 04/15/25 13:23 Family History Father Diabetes Hypertension Mother Diabetes Hypertension Colon polyp Other Cancer Surgical History History of arthroscopy of right knee History of hysterectomy History of appendectomy History of colonoscopy Hx of shoulder surgery Social History household members: spouse and none housing: house Smoking Status: Never smoker alcohol intake: current alcohol intake frequency: 0-2 drinks per day Alcohol type: hard liquor substance use type: other details: Gummies ROS ROS ED Constitutional Constitutional ED: Denies chills, fever(s), subjective, sweats or weight loss Cardiovascular Cardiovascular: Reports chest pain; Denies orthopnea or paroxysmal nocturnal dyspnea Respiratory/Chest Respiratory/Chest: Denies cough, dyspnea, dyspnea on exertion, orthopnea or p aroxysmal nocturnal dyspnea Gastrointestinal Gastrointestinal: Reports nausea; Denies abdominal pain, constipation, diarrhea or vomiting Genitourinary Genitourinary ED: Denies dysuria, hematuria or urinary frequency EXAM Physical Exam Const Vital Signs: 04/15/25 13:23 04/15/25 15:38 Temperature 97.1 F L Temperature Source Temporal Pulse Rate 94 Respiratory Rate 18 Respiratory Effort Normal Non-Labored Respiratory Pattern Normal Blood Pressure 170/103 H Blood Pressure Mean 125 Pulse Ox 96 Oxygen Delivery Method Room Air Positive well nourished and well developed Constitutional Narrative: Patient is in obvious discomfort. She is crying. General Appearance ED: well developed; Negative for NAD or pallor HEENT Reports moist mucous membranes HEENT Narrative: Head is atraumatic normocephalic. ears are normal. Eyes PERRL and EOMs intact bilaterally Chest Wall inspection of chest normal and palpation of chest normal Chest Narrative: There is no crepitus subcutaneous air noted. There is pain to palpation midclavicular line over ribs 6 7. Resp normal respiratory effort and clear to auscultation bilaterally Cardio regular rate, regular rhythm, S1 normal heart sound, S2 normal heart sound and no murmurs GI normal to inspection, nondistended, normoactive bowel sounds, non-tender, non- distended and no masses; Negative for hepatosplenomegaly Extremity normal to inspection Neuro oriented x3 and CN's II-XII intact bilaterally Sensorium / Orientation: alert Psych mental status grossly normal Mood & Affect: tearful Skin no rashes or lesions noted and no wounds General Skin Exam: Negative for jaundice or pallor MDM MDM MDM Narrative Medical decision making narrative: Patient was treated with IV morphine. She had significant improvement after 4 mg of morphine. She also was given incentive spirometer. We discharged with the incentive spirometer. Imaging was not repeated since she had a CAT scan of the chest and abdomen on the ninth. Discharge Plan Triage Chief Complaint: Other, Pain/Inj ED Provider: Ron Guerrero Dx/Rx/DC Orders Clinical Impression: Fracture of left seventh rib Instructions: ED Rib Fracture Prescriptions: New morphine 15 mg tablet 15 mg PO Q8H PRN (Reason: pain) 7 Days Qty: 21 0RF No Action duloxetine 60 mg capsule,delayed release(DR/EC) 120 mg PO DAILY 30 Days Qty: 60 2RF alcohol swabs Pads, Medicated 1 pad topical 4X/DAY Qty: 200 5RF allopurinol 100 mg tablet 100 mg PO DAILY insulin aspart U-100 [Novolog FlexPen U-100 Insulin] 100 unit/mL (3 mL) insulin pen 18 sliding scale dose subcut TID ibuprofen 800 mg tablet 800 mg PO DAILY mecobalamin (vitamin B12) 500 mcg tablet,chewable PO furosemide 20 mg tablet 20 mg PO QDAY losartan 100 mg tablet 100 mg PO QDAY colchicine 0.6 mg capsule 0.6 mg PO QDAY PRN (Reason: Gout) Trulicity 4.5 mg/0.5 mL pen injector 4.5 mg subcut QWEEK Qty: 2 3RF fluconazole [Diflucan] 100 mg tablet 100 mg PO DAILY Qty: 2 0RF Rx Instructions: 1 tablet, repeat in 72 hours omeprazole 20 mg capsule,delayed release(DR/EC) 40 mg PO DAILY Patient Comments: gastric reflux diphenhydramine HCl 25 mg capsule 25 mg PO DAILY PRN (Reason: allergy symptoms) ondansetron 4 mg tablet,disintegrating 4 mg PO Q6H PRN (Reason: nausea and vomiting) Qty: 10 0RF albuterol sulfate [Ventolin HFA] 90 mcg/actuation HFA aerosol inhaler 2 puff inhalation Q4H PRN PRN (Reason: Wheezing or shortness of breath) Qty: 1 0RF hydroxyzine HCl 25 mg tablet 25 mg PO DAILY PRN Galzin 25 mg (zinc) capsule 25 mg PO DAILY dicyclomine 10 mg capsule 10 mg PO TID PRN (Reason: abdominal pain) 7 Days Qty: 21 0RF nitrofurantoin monohyd/m-cryst [Macrobid] 100 mg capsule 100 mg PO Q12H 5 Days Qty: 10 0RF Rx Instructions: must administer with a meal/food metoclopramide HCl [Reglan] 5 mg tablet 5 mg PO Q8H 3 Days Qty: 9 0RF nitrofurantoin macrocrystal 100 mg capsule 100 mg PO BID 7 Days Qty: 14 0RF Rx Instructions: must administer with a meal/food ezetimibe 10 mg tablet 10 mg PO DAILY Qty: 90 3RF (DME) pen needle, diabetic [BD Ultra-Fine Thais Pen Needle] 32 gauge x 5/32 needle See Rx Instructions .Route Qty: 100 5RF Rx Instructions: daily (DME) pen needle, diabetic [BD Ultra-Fine Thais Pen Needle] 32 gauge x 5/32 needle See Rx Instructions .Route Qty: 100 5RF Rx Instructions: 4x/day lorazepam 1 mg tablet 0.5 mg PO DAILY PRN (Reason: Anxiety) Qty: 30 1RF omega-3 acid ethyl esters 1 gram capsule 1 cap PO BID Qty: 180 1RF (DME) FreeStyle Tanmay 2 Sensor Kit See Rx Instructions .Route Qty: 2 5RF Rx Instructions: 1 sensor q 14 days insulin glargine [Basaglar KwikPen U-100 Insulin] 100 unit/mL (3 mL) insulin pen 30 unit subcut QAM Qty: 27 1RF insulin glargine [Lantus Solostar U-100 Insulin] 100 unit/mL (3 mL) insulin pen 30 unit subcut QDAY Qty: 27 1RF cholecalciferol (vitamin D3) 50 mcg (2,000 unit) capsule 50 mcg PO QDAY Qty: 90 1RF Primary Care Provider: Chantale Palm NP Referrals: Chantale Palm NP, [facility] [Primary Care Provider] - 1 Week if not improving Activity Restrictions/Additional Instructions: 1. Use incentive spirometer every 1-2 hours while awake for the next 5 to 7 days 2. Take pain medicine as prescribed 3. Apply ice to the anterior left chest 6-8 times per day. Print Language: Kyrgyz Disposition Disposition: Home, Self Care
[2025-04-15 17:26] VITALS: BP 170/103; PULSE 94; RESP 18; TEMP 36.2; O2SAT 96
== END 2025-04-15 17:33 | disposition home or self-care (01) ==
PROVIDERS: Emergency Provider Emergency Medicine; PCP Registered Nurse; Visit Provider Emergency Medicine
DX: S22.32XA Fracture of one rib, left side, initial encounter for closed fracture (principal); E11.9 Type 2 diabetes mellitus without complications; Z79.4 Long term (current) use of insulin; X58.XXXA Exposure to other specified factors, initial encounter; I10 Essential (primary) hypertension; K21.9 Gastro-esophageal reflux disease without esophagitis; F41.1 Generalized anxiety disorder; F43.10 Post-traumatic stress disorder, unspecified; E78.00 Pure hypercholesterolemia, unspecified; J45.909 Unspecified asthma, uncomplicated; M17.0 Bilateral primary osteoarthritis of knee; Z86.73 Personal history of transient ischemic attack (TIA), and cerebral infarction without residual deficits; Z79.85 Long-term (current) use of injectable non-insulin antidiabetic drugs; Z79.899 Other long term (current) drug therapy
CPT/HCPCS: 96374; 96375; 99282; A4216; J2405

== ENCOUNTER 2025-04-16 11:56 | Emergency (ER) | payer MEDICAID, SELFPAY ==
[2025-04-16 11:57] VITALS: BP 218/101; PULSE 110; RESP 20; O2SAT 97
[2025-04-16 11:58] VITALS: BP 217/103; PULSE 108; RESP 20; TEMP 36.6; O2SAT 98
--- NOTE | 2025-04-16 12:05 | ED.RN ---
PT COMPLAINING ABOUT WAITING IN WAITING ROOM. I HOPE I DONT HAVE TO WAIT 6 HRS. PT WANTING TO FILE A REPORT AGAINST LT KASIA WITH [facility]. PT IN TRIAGE ON THE PHONE TALKING LOUDLY AND COMPLAINING ABOUT EMS AND [facility]. IF I HAVE TO I'LL JUST WALK HOME.
--- NOTE | 2025-04-16 12:38 | ED.RN ---
am i going to be here for hours?, this nurse apologized and states that I dont know how long it will be, im sorry. pt states well you dont know how many are in there? this RN stated yes i do but unfortunately I dont know how long the wait is. pt calls someone can you come get me, i cant fucking wait all day. pt starts moving the w/c, this RN asks do you need me to take you somewhere? pt states yes im leaving. I leave with chronic pain and to be put off like this is ridculous. this RN attempted to explain to pt that we are currently full and apologized. pt is on the phone im fucking going home, this is fucking ridiculous. they dont fucking give a shit here. the ambulance yue was treating me like a fucking criminal.
--- NOTE | 2025-04-16 12:50 | ED.RN ---
pt's ride has arrived. Officer Jamal pushed pt to vehicle.
--- OUTSIDE RECORDS SUMMARY | 2025-04-16 13:16 | XMS RPT_ITS | CCD ---
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 Karl Pichardo Primary Care Provider Dr. Karl Pichardo Referring Provider [phone] CHEPE Greene Attending Provider CHEPE Wang Attending Provider [phone] Karl Pichardo MD Primary Care Provider Dr. Maru Fry Attending Provider Dr. Karl Pichardo Primary Care Provider Dr. Karl Pichardo Referring Provider [phone] CHEPE Greene Attending Provider CHEPE Wang Attending Provider Dr. Maru Fry Attending Provider [phone] MD Maru Fry Primary Care Provider Unavail able MD Maru Fry Referring Provider Unavailabl e BRAULIO CONVEYOR BELT OPERATOR-TRUST MANAGER, CHANTALE A Primary Care Physi justus Javed [...] Referring Unavailable ALEXANDREA HOLLIDAY Consulting Unavailable BRAULIO CONVEYOR BELT OPERATOR-TRUST MANAGER, CHANTALE A Attending Un available BRAULIO CONVEYOR BELT OPERATOR-TRUST MANAGER, CHANTALE A Primary Care Un available BRAULIO CONVEYOR BELT OPERATOR-TRUST MANAGER, CHANTALE A Attending Un available BRAULIO CONVEYOR BELT OPERATOR-TRUST MANAGER, CHANTALE A Primary Care Un available HUNG MATA MD Attending Unavailable BRAULIO CONVEYOR BELT OPERATOR-TRUST MANAGER, CHANTALE A Primary Care Un available WALL CONVEYOR BELT OPERATOR-TRUST MANAGER, PIPER Melendez Attending Danicavachar lable BRAULIO CONVEYOR BELT OPERATOR-TRUST MANAGER, CHANTALE A Primary Care Un available BRAULIO CONVEYOR BELT OPERATOR-TRUST MANAGER, CHANTALE A Attending Un available BRAULIO CONVEYOR BELT OPERATOR-TRUST MANAGER, CHANTALE A Primary Care Un available BRAULIO CONVEYOR BELT OPERATOR-TRUST MANAGER, CHANTALE A Attending Un available BRAULIO CONVEYOR BELT OPERATOR-TRUST MANAGER, CHANTALE A Primary Care Un available BRAULIO CONVEYOR BELT OPERATOR-TRUST MANAGER, CHANTALE A Attending Un available BRAULIO CONVEYOR BELT OPERATOR-TRUST MANAGER, CHANTALE A Primary Care Un available BRAULIO CONVEYOR BELT OPERATOR-TRUST MANAGER, CHANTALE A Attending Un available BRAULIO CONVEYOR BELT OPERATOR-TRUST MANAGER, CHANTALE A Primary Care Un available VACCARELLI PA-CMANUEL Attending Unavailab le BRAULIO CONVEYOR BELT OPERATOR-TRUST MANAGER, CHANTALE A Primary Care Un available BRAULIO CONVEYOR BELT OPERATOR-TRUST MANAGER, CHANTALE A Attending Un available BRAULIO CONVEYOR BELT OPERATOR-TRUST MANAGER, CHANTALE A Primary Care Un available BRAULIO CONVEYOR BELT OPERATOR-TRUST MANAGER, CHANTALE A Attending Un available BRAULIO CONVEYOR BELT OPERATOR-TRUST MANAGER, CHANTALE A Primary Care Un available WALL CONVEYOR BELT OPERATOR-TRUST MANAGER, PIPER Melendez Attending Dnaicavachar johnson BRAULIO CONVEYOR BELT OPERATOR-TRUST MANAGER, CHANTALE A Primary Care Un available HUNG MATA MD Attending Unavailable BRAULIO CONVEYOR BELT OPERATOR-TRUST MANAGER, CHANTALE A Primary Care Un available BRAULIO CONVEYOR BELT OPERATOR-TRUST MANAGER, CHANTALE Guadalupe Attending Un available BRAULIO CONVEYOR BELT OPERATOR-TRUST MANAGER, HARRAH A Primary Care Un available Kylee MURILLO, Karl Persaud Primary Care Provider REFERRING, JEROME GERI ATKINS Attending Unavailable BRAULIO CONVEYOR BELT OPERATOR-TRUST MANAGER, HARRAH A Primary Care Un available Sandi Ramírez Attending Unavailable Braulio WINDOWS APPLICATION ADMINISTRATOR, [facility] Unavailabl e Braulio WINDOWS APPLICATION ADMINISTRATOR, [place] Referring Unavailabl e Braulio WINDOWS APPLICATION ADMINISTRATOR, [facility] Unavailabl e Ame Eastman Attending Unavailable Braulio WINDOWS APPLICATION ADMINISTRATOR, [facility] Unavailabl e Simon Kelley Attending Unavailable Simon Kelley Attending Unavailable Braulio WINDOWS APPLICATION ADMINISTRATOR, [facility] Unavailabl e Braulio WINDOWS APPLICATION ADMINISTRATOR, [facility] UnavailAme Vargas Attending Unavailable Ame Eastman Referring Unavailable Sandi Ramírez Attending Unavailable Sandi Ramírez Referring Unavailable Braulio WINDOWS APPLICATION ADMINISTRATOR, [facility] Unavailabl e Braulio, Chantale Attending Unavailable Braulio WINDOWS APPLICATION ADMINISTRATOR, [place] Referring Unavailabl e Braulio WINDOWS APPLICATION ADMINISTRATOR, [facility] UnavailKarl Shay Referring Unavailable Karl Ashton Attending Unavailable Braulio WINDOWS APPLICATION ADMINISTRATOR, [facility] Unavailabl e Braulio WINDOWS APPLICATION ADMINISTRATOR, [facility] UnavailAme Vargas Referring Unavailable Simon Kelley Attending Unavailable Sandi Ramírez Attending Unavailable Braulio WINDOWS APPLICATION ADMINISTRATOR, [place] Referring Unavailabl e Braulio WINDOWS APPLICATION ADMINISTRATOR, [facility] Unavailabl e Braulio WINDOWS APPLICATION ADMINISTRATOR, [place] Attending Unavailabl e Braulio WINDOWS APPLICATION ADMINISTRATOR, [facility] Unavailabl e Braulio WINDOWS APPLICATION ADMINISTRATOR, [place] Referring Unavailabl e Braulio WINDOWS APPLICATION ADMINISTRATOR, [facility] Unavailabl e PATRICK NOGUEIRA Referring Unavailable PATRICK NOGUEIRA Attending Unavailable Braulio WINDOWS APPLICATION ADMINISTRATOR, [facility] Unavailabl e Gorge Hoffman Attending Unavailable Braulio WINDOWS APPLICATION ADMINISTRATOR, [facility] Unavailabl e Mirlande Last Attending Unavailable Hawk Mejia Attending Unavailable Braulio WINDOWS APPLICATION ADMINISTRATOR, [facility] UnavailSandi Londono Attending Unavailable Sandi Ramírez Referring Unavailable Braulio WINDOWS APPLICATION ADMINISTRATOR, Chantale Primary Care Unavailabl e Braulio WINDOWS APPLICATION ADMINISTRATOR, [facility] Unavailabl e Ame Eastman Referring Unavailable Ame Eastman Attending Unavailable Jaren, Ame Attending Unavailable Braulio WINDOWS APPLICATION ADMINISTRATOR, [facility] Unavailabl e Ame Eastman Referring Unavailable Hawk Mejia Attending Unavailable Braulio WINDOWS APPLICATION ADMINISTRATOR, [facility] Unavailabl e Noe Wang Attending Unavailable Braulio WINDOWS APPLICATION ADMINISTRATOR, [place] Referring Unavailabl e Braulio WINDOWS APPLICATION ADMINISTRATOR, [facility] Care Unavailabl e Sandi Ramírez Referring Unavailable Darrell, Sandi Attending Unavailable Braulio WINDOWS APPLICATION ADMINISTRATOR, [facility] Care Unavailabl e Darrell, Sandi Attending Unavailable Braulio WINDOWS APPLICATION ADMINISTRATOR, [place] Referring Unavailabl e Braulio WINDOWS APPLICATION ADMINISTRATOR, [facility] Care Unavailabl e Braulio WINDOWS APPLICATION ADMINISTRATOR, [place] Referring Unavailabl e Braulio WINDOWS APPLICATION ADMINISTRATOR, [facility] Unavailabl e Jaren, Ame Attending Unavailable Snadi Ramírez Attending Unavailable Braulio WINDOWS APPLICATION ADMINISTRATOR, [facility] Unavailabl e Braulio WINDOWS APPLICATION ADMINISTRATOR, [place] Referring Unavailabl e Karl Ashton Attending Unavailable Braulio WINDOWS APPLICATION ADMINISTRATOR, [facility] Unavailabl e Braulio WINDOWS APPLICATION ADMINISTRATOR, [place] Referring Unavailabl e BRAULIO CONVEYOR BELT OPERATOR-TRUST MANAGER, CHANTALE A Primary Care Un available KAPPER CONVEYOR BELT OPERATOR-TRUST MANAGER, ROSA Osorio Admitting Unavaila ble JIMENA MURILLO, JOHAN Attending Unavailable JIMENA MURILLO, JOHAN Referring Unavailable ROMAR DO, DR WELCH Attending Unavailable BRAULIO CONVEYOR BELT OPERATOR-TRUST MANAGER, CHANTALE A Primary Care Un available BRAULIO CONVEYOR BELT OPERATOR-TRUST MANAGER, CHANTALE Guadalupe Attending Un available BRAULIO CONVEYOR BELT OPERATOR-TRUST MANAGER, HARRAH A Primary Care Un available ROMAR DO, DR WELCH Attending Unavailable BRAULIO CONVEYOR BELT OPERATOR-TRUST MANAGER, HARRAH A Primary Care Un available DITCHEY ROSA SANTOS Attending Unavailable BRAULIO CONVEYOR BELT OPERATOR-TRUST MANAGER, HARRAH A Primary Care Un available Allergies Allergy Classification Reported Allergen(s) Allergy Type Date of Onset Reaction(s) Facility (20 sources) Acetaminophen; Translations: [acetaminophen] Drug Allergy 12-02-19 14 Hives [facility] Work Phone: Comment on above: hives (9 sources) Acetaminophen / oxyCODONE; Translations: [OXYCODONE-ACETAMIN OPHEN] Drug Allergy 05-11-20 21 Itching [facility] (20 sources) adalimumab; Translations: [adalimumab] Drug Allergy 01-20-20 13 Other: See Comments [facility] Work Phone: (20 sources) Codeine; Translations: [codeine] Drug Allergy 05-10-20 05 Itching [facility] Work Phone: [phone] (20 sources) Etanercept; Translations: [etanercept] Drug Allergy 07-20-20 12 Other: See Comments [facility] Work Phone: [phone] (20 sources) HMG-CoA reductase inhibitor; Translations: [statins] Drug Intolerance 06-15-20 12 Other: See Comments [facility] Work Phone: [phone] (20 sources) leflunomide; Translations: [leflunomide] Drug Allergy 04-28-20 12 Other: See Comments [facility] (20 sources) Methylphenidate; Translations: [methylphenidate] Drug Allergy 12-08-19 15 Other: See Comments [facility] Work Phone: (14 sources) Metoprolol; Translations: [METOPROLOL TARTRATE] Drug Allergy 05-10-20 05 Unknown [facility] Work Phone: (9 sources) Morphine; Translations: [MORPHINE] Drug Allergy 08-24-19 10 Mental Status Change [facility] Work Phone: (20 sources) Morphine / Naltrexone; Translations: [morphine-naltrexon e] Drug Allergy 07-31-20 09 Intolerance [facility] Work Phone: Comment on above: intolerance (20 sources) oxyMORphone; Translations: [oxymorphone] Drug Allergy 12-27-19 11 Mental Status Change [facility] (14 sources) pioglitazone; Translations: [PIOGLITAZONE HCL] Drug Allergy 04-28-20 09 Swelling [facility] Work Phone: (9 sources) Streptococcus pneumoniae [...] Drug Allergy 12-27-19 11 Shortness of Breath [facility] (20 sources) Sulfamethoxazole / Trimethoprim; Translations: [SULFAMETHOXAZOLE-T RIMETHOPRIM] Drug Allergy 12-09-19 20 Anaphylaxis, Sweating (finding), Abdominal pain (finding), Vomiting (disorder) [facility] Work Phone: (12 sources) Sulfonamides (Antibiotic); Translations: [SULFA (SULFONAMIDE ANTIBIOTICS)] Drug Allergy 04-05-20 21 Anaphylaxis [facility] (20 sources) telithromycin; Translations: [telithromycin] Drug Allergy 05-10-20 05 Mental Status Change [facility] Work Phone: Comment on above: mental status change (14 sources) traMADol; Translations: [TRAMADOL HCL] Drug Allergy 12-27-19 11 Other: See Comments [facility] (6 sources) Environmental allergies [Other] Propensity to adverse reactions 12-27-19 11 Intolerance [facility] (6 sources) Amoxicillin; Translations: [amoxicillin trihydrate] Drug Allergy 08-23-19 22 Unknown [facility] (6 sources) Morphine; Translations: [morphine sulfate] Drug Allergy 08-23-19 22 Unknown [facility] (6 sources) Naltrexone; Translations: [naltrexone HCl] Drug Allergy 08-23-19 22 Unknown [facility] (5 sources) Sulfamethoxazole Drug Allergy 08-23-19 22 Anaphylaxis [facility] Work Phone: (5 sources) Trimethoprim Drug Allergy 08-23-19 22 Anaphylaxis [facility] Work Phone: (6 sources) pneumococcal 23-valent polysacchari; Translations: [pneumococcal 23-valent polysacchari] Allergy to substance 08-23-19 Unknown [facility] (6 sources) potassium clavulanate; Translations: [potassium clavulanate] Allergy to substance 08-23-19 Unknown [facility] (6 sources) Eymcgon-Oyw-Hyg Reductase Inhibitor; Translations: [Nhbhocg-Urs-Lvp Reductase Inhibitor] Allergy to substance 08-23-19 Unknown [facility] (3 sources) HMG-CoA reductase inhibitor Drug Intolerance 06-15-20 12 Other: See Comments [facility] Work Phone: (2 sources) Sulfonamides (Antibiotic) Allergy to substance 04-04-20 Anaphylaxis [facility] Work Phone: (6 sources) dulaglutide; Translations: [dulaglutide] Drug Allergy [facility] (16 sources) Metoprolol; Translations: [metoprolol] Drug Allergy Telithromycin (product) [facility] Comment on above: palpatations (16 sources) pioglitazone; Translations: [pioglitazone] Drug Allergy [facility] Comment on above: swelling (16 sources) Pneumococcal vaccine; Translations: [pneumococcal vaccine] Drug Allergy Difficulty breathing [facility] (16 sources) traMADol; Translations: [tramadol] Drug Allergy [facility] (1 source) OTHER; Translations: [OTHER] Propensity to adverse reactions (disorder) 12-27-19 [facility] Repository (12 sources) Amoxicillin; Translations: [amoxicillin] Drug Allergy unknown [facility] (12 sources) Doxycycline; Translations: [doxycycline] Drug Allergy unknown [facility] (1 source) misc non-codified allergy 6 Allergy to substance Anaphylaxis (disorder) [facility] Comment on above: highly allergic to b lack mulch- the smoke from it (9 sources) misc non-codified allergy 4 Allergy to substance Anaphylaxis (disorder) [facility] Comment on above: highly allergic to b lack mulch- the smoke from it (1 source) Morphine / Naltrexone Drug Allergy 07-31-20 09 Intolerance [facility] Work Phone: (5 sources) lurasidone; Translations: [lurasidone] Drug Allergy Fatigue (finding) [facility] (5 sources) QUEtiapine; Translations: [quetiapine] Drug Allergy Pt states she felt drunk [facility] (2 sources) misc non-codified allergy 5 Allergy to substance Anaphylaxis (disorder) [facility] Comment on above: highly allergic to b lack mulch- the smoke from it (2 sources) Cephalexin; Translations: [cephalexin] Drug Allergy Nausea and vomiting (disorder) [facility] (2 sources) NITROFURANTOIN, MACROCRYSTALS / Nitrofurantoin, Monohydrate; Translations: [nitrofurantoin] Drug Allergy Nausea and vomiting (disorder) [facility] (1 source) adalimumab Drug Allergy 04-12-20 [facility] (1 source) Clindamycin Drug Allergy 04-12-20 [facility] (1 source) Codeine Drug Allergy 04-12-20 [facility] (1 source) Etanercept Drug Allergy 04-12-20 [facility] (1 source) leflunomide Drug Allergy 04-12-20 [facility] (1 source) Metoprolol Drug Allergy 04-12-20 [facility] (1 source) oxyMORphone Drug Allergy 04-12-20 [facility] (1 source) pioglitazone Drug Allergy 04-12-20 [facility] (1 source) Sulfamethoxazole Drug Allergy 04-12-20 [facility] (1 source) Sulfonamides (Antibiotic) Drug allergy (disorder) 04-12-20 [facility] (1 source) telithromycin Drug Allergy 04-12-20 [facility] (1 source) traMADol Drug Allergy 04-12-20 [facility] (1 source) Trimethoprim Drug Allergy 04-12-20 [facility] Repository Medications Current Medications Medication Drug Class(es) Dates Sig (Normalized) Sig (Original) acetaminophen 500 mg oral powder (5 sources) Start: 11-24-2024 take 2 doses by mouth every six hours as needed for fever Tylenol Extra Strength 500 mg oral powder 2 packet(s), Oral, q6h, PRN as needed for fever, # 12 packet(s), 0 Refill(s) Start Date: 11/24/24 Status: Ordered Medication Dispense Status: Completed Quantity: 12.0 Unit: packet(s) Total Allowed Fills: 1 Fills Dispensed: 0 Start: 09-30-2020 take 1 capsule by mo uth every four hours as needed Tylenol 325 mg oral capsule Dose : 650 mg =, Oral, q4h, PRN Temperature greater than 38.6 degrees C, 0 Refill(s) Start Date: 09/30/20 Status: Ordered Acidophilus Probiotic Blend oral capsule (11 sources) Start: 04-07-2025 End: 04-02-2026 take 1 capsule by mouth once daily Acidophilus Probiotic Blend oral capsule Dose = 1 cap(s), Oral, qDay, # 30 cap(s), 11 Refill(s), Pharmacy: [facility], Nausea Bloating, 174, cm, 03/07/25 [...] qDay, # 30 cap(s), 11 Refill(s), Pharmacy: [facility], Nausea Bloating, 176, cm, 03/10/24 8:22:00 [...] Date: 04/30/23 Stop Date: 04/24/24 Status: Ordered [id number] 200 actuat albuterol 0.09 mg/actuat metered dose [...] ( 90 Base) MCG/ACT AERS ALBUTEROL SULFATE [id number] Miguel Pena MD PROAIR HFA 108 ( 90 Base) MCG/ACT AERS ALBUTEROL SULFATE [id number] Miguel Pena MD Comment on above: Inhale 2 Puffs as in structed every 4 hours as needed. albuterol MDI (90 mcg/inh) CFC free inhalation aerosol (4 sources) Start: take 1 puff(s) by inhalation every six hours as needed for wheezing albuterol MDI (90 mcg/inh) CFC free inhalation aerosol 1 puff(s), Inhalation, q6h, PRN as needed for wheezing, # 18 gram(s), 2 Refill(s), Pharmacy: [facility], 174, cm, 12/08/24 10:52:00 EDT, [...] wheezing, # 18 gram(s), 2 Refill(s), Pharmacy: [facility], 175, cm, 09/01/24 13:07:00 EST, Height, kg, 09/01/24 13:07:00 EST, Dosing Weight Start Date: 10/06/24 Status: Ordered Quantity: 18.0 Unit: g Repeat number: 3 allopurinol 100 mg oral tablet (11 sources) Xanthine Oxidase Inhibitor Start: 11-17-2024 allopurinol 100 mg oral tablet Dose : 100 mg = 1 tab(s), Oral, qDay, # 90 tab(s), 3 Refill(s), Pharmacy: [facility], 174.8, cm, 10/26/24 11:35:00 EDT, Height, kg, 10/26/24 11:35:00 EDT, Dosing Weight Start Date: 11/17/24 Status: Ordered Medication Dispense Status: Completed Quantity: 90.0 Unit: tab(s) Total Allowed Fills: 4 Fills Dispensed: 0 Start: 12-26-2023 allopurinol 10 0 mg oral tablet Dose : 100 mg = 1 tab(s), Oral, qDay, # 30 tab(s), 3 Refill(s), Pharmacy: [facility], 176, cm, 12/26/23 13:54:00 EDT, Height, kg, 12/26/23 13:56:00 EDT, Dosing Weight Start Date: 12/26/23 Status: Ordered Start: 09-24-2023 allopurinol 10 0 mg oral tablet Dose : 100 mg = 1 tab(s), Oral, qDay, # 30 tab(s), 3 Refill(s), Pharmacy: [facility], 176, cm, 08/29/23 14:20:00 EST, Height, kg, 08/29/23 14:20:00 EST, Dosing Weight Start Date: 09/24/23 Status: Ordered Start: 03-19-2023 End: 06-17-2023 allopurinol 100 mg oral tabl et Dose : 100 mg = 1 tab(s), Oral, qDay, # 30 tab(s), 2 Refill(s), Pharmacy: [id number], 172.7, cm, 01/10/23 15:40:00 EDT, Height, kg, 02/18/23 15:24:00 EDT, Dosing Weight Start Date: 03/19/23 Stop Date: 06/17/23 Status: Ordered celecoxib 100 mg oral capsule (1 source) Nonsteroidal Anti-inflammatory Drug Start: 05-27-2022 take 1 capsule by mouth twice daily Celecoxib (Celebrex) 100 mg capsule Active 100 MG PO TWICE A DAY 60 May 26, 2022 11:00pm cephalexin 500 mg oral capsule (14 sources) Cephalosporin Antibacterial Start: 04-08-2025 End: 04-15-2025 cephalexin 500 mg oral capsule Dose : 500 mg = 1 cap(s), Oral, q12h, dicontinue macrobid, X 7 day(s), # 14 cap(s), 0 Refill(s), 04/15/25 5:40:00 PM EDT, Pharmacy: [id number], UTI symptoms, 174, cm, 04/08/25 [...] 2020 10:03am cholecalciferol 0.05 mg oral capsule (13 sources) Vitamin D Start: 08-13-2024 cholecalcifero l 50 mcg (2000 intl units) oral capsule Dose : 50 mcg = 1 cap(s), Oral, Daily, 0 Refill(s) Start Date: 08/13/24 Status: Ordered Medication Dispense Status: Completed Total Allowed Fills: 1 Fills Dispensed: 0 Start: 04-04-2022 take 1 capsule by mo [facility] once daily Cholecalciferol (Vitamin D3) (Vitamin D3) 50 mcg (2,000 unit) Capsule Active 50 MCG PO DAILY April 03, 2022 11:00pm End: 11-01-2022 take 1 capsule by mouth once daily cholecalciferol, vitamin D3, 10 mcg (400 unit) cap Take 400 Units by mouth once daily. 11/01/2022 Discontinued Comment on above: Take 400 Units by mo ut once daily. cider vinegar oral tablets (1 source) Start: 1 take 1 capsule by mouth once daily cider vinegar oral tablets 1 capsule, Oral, Daily, 0 Refill(s) Start Date: 09/20/20 Status: Ordered Clobetasol (1 source) Corticosteroid Start: 3 clobetasol 0.05% topical cream Apply 1 bautista, Topical, BID, # 15 gram(s), 0 Refill(s), Pharmacy: [id number], Cream, 172.7, cm, 01/10/23 15:40:00 EDT, Height, 84.4 Start Date: 02/18/23 Status: Ordered colchicine 0.6 mg oral tablet (10 sources) Start: colchicine 0.6 mg oral tablet Dose : 0.6 mg = 1 tab(s), Oral, BID, # 180 tab(s), 1 Refill(s), Pharmacy: [facility], 174.8, cm, 11/24/24 9:42:00 EDT, Height, kg, 11/24/24 9:42:00 EDT, Dosing Weight Start Date: 11/24/24 Status: Ordered Medication Dispense Status: Completed Quantity: 180.0 Unit: tab(s) Total Allowed Fills: 2 Fills Dispensed: 0 Start: 12-26-2023 colchicine 0.6 mg oral capsule See Instructions, Take 2 tabs as first dose, then 1 tab one hour later, # 3 tab(s), 3 Refill(s), Pharmacy: [facility], Gout flare, 176, cm, 12/26/23 13:54:00 EDT, Height, kg, 12/26/23 13:56:00 EDT, Dosing Weight Start Date: 12/26/23 Status: Ordered Start: 10-01-2023 colchicine 0.6 mg oral capsule See Instructions, Take 2 tabs as first dose, then 1 tab one hour later, # 3 tab(s), 3 Refill(s), Pharmacy: [facility], Gout flare, 176, cm, 09/26/23 [...] Status: Ordered Continuous Glucose Monitorin g System (14 sources) Start: 07-07-2024 Continuous Glu cose Monitoring System See Instructions, Freestyle Tanmay 2 sensors for continuous glucose moitoring. #7 sensors for 90 day supply, # 2 EA, 3 Refill(s), Pharmacy: [facility], Uncontrolled diabetes mellitus with hypoglycemia, [...] supply, # 2 EA, 3 Refill(s), Pharmacy: [facility], Uncontrolled diabetes mellitus with hypoglycemia, [...] Refill(s), Pharmacy: [facility], Uncontrolled diabetes mellitus with hypoglycemia, 175, cm, 03/26/23 14:42:00 EDT, Height, 90.7, kg, 04/30/23 13:32:00 EDT, Dosing Weight Start Date: 05/29/23 Status: Ordered Start: 04-30-2023 Continuous Glu cose Monitoring System See Instructions, Freestyle Tanmay 2 sensors for continuous glucose moitoring. #7 sensors for 90 day supply, # 7 EA, 0 Refill(s), Pharmacy: [facility], Uncontrolled diabetes mellitus with hypoglycemia, 175, cm, 03/26/23 14:42:00 EDT, Height, 90.7, kg, 04/30/23 13:32:00 EDT, Dosing Weight Start Date: 04/30/23 Status: Ordered Start: 01-13-2023 Continuous Glu cose Monitoring System See Instructions, Freestyle Tanmay 2 sensors for continuous glucose moitoring. #7 sensors for 90 day supply, # 7 EA, 0 Refill(s), Pharmacy: [id number], Uncontrolled diabetes mellitus with hypoglycemia, 172.7, cm, 01/10/23 15:40:00 EDT, Height, 85.2, kg, 01/10/23 15:40:00 EDT, Dosing Weight Start Date: 01/13/23 Status: Ordered Start: 01-13-2023 Continuous Glu cose Monitoring System See Instructions, Freestyle Tanmay 2 sensors for continuous glucose moitoring. #7 sensors for 90 day supply, # 7 EA, 0 Refill(s), [facility] [id number], Uncontrolled diabetes mellitus [...] senors, # 2 EA, 4 Refill(s), Pharmacy: [facility], 174, cm, 03/07/25 11:11:00 EDT, Height, 91.9, kg, 03/07/25 11:11:00 EDT, Dosing Weight Start Date: 03/25/25 Status: Ordered Medication Dispense Status: Completed Quantity: 2.0 Unit: EA Total Allowed Fills: 5 Fills Dispensed: 0 Start: 11-15-2024 DME MISCellane ous See Instructions, Patient needs refill on Freestyle Tanmay 2 senors, # 2 EA, 4 Refill(s), Pharmacy: [facility], 174.8, cm, 10/26/24 11:35:00 EDT, Height, 98.1, kg, 10/26/24 11:35:00 EDT, Dosing Weight Start Date: 11/15/24 Status: Ordered Quantity: 2.0 Unit: EA Repeat number: 5 Start: 09-15-2023 DME MISCellane ous See Instructions, Patient needs refill on Freestyle Tanmay 2 senors She has been out for a week, # 2 EA, 4 Refill(s), Pharmacy: [facility], 176, cm, 08/29/23 14:20:00 EST, Height, 90.8, kg, 08/29/23 14:20:00 EST, Dosing Weight Start Date: 09/15/23 Status: Ordered Start: 10-08-2022 DME MISCellane ous See Instructions, alcohol swabs for twice daily blood glucose testing. 90 day supply., # 1 EA, 3 Refill(s), Pharmacy: [facility], DMII (diabetes mellitus, type 2), [...] supply., # 1 EA, 3 Refill(s), Pharmacy: [facility], DMII (diabetes mellitus, type 2), 172.7, cm, 10/08/22 10:00:00 EST, Height, 85 Start Date: 10/08/22 Status: Ordered Quantity: 1.0 Unit: EA Repeat number: 4 Indications: Type 2 diabetes mellitus without complications; Start: 10-08-2022 DME MISCellane ous See Instructions, alcohol swabs for twice daily blood glucose testing. 90 day supply., # 1 EA, 3 Refill(s), Pharmacy: [facility], DMII (diabetes mellitus, type 2), 172.7, cm, 10/08/22 10:00:00 EST, Height, 85 Start Date: 10/08/22 Status: Ordered Start: 10-08-2022 DME MISCellane ous See Instructions, Supply 1 glucometer for blood glucose testing at home twice daily. ., # 1 EA, 0 Refill(s), Pharmacy: [facility], DMII (diabetes mellitus, type 2), 172.7, [...] ., # 1 EA, 0 Refill(s), Pharmacy: [facility], DMII (diabetes mellitus, type 2), 172.7, cm, 10/08/22 10:00:00 EST, Height, 85 Start Date: 10/08/22 Status: Ordered Quantity: 1.0 Unit: EA Repeat number: 1 Indications: Type 2 diabetes mellitus without complications; Start: 10-08-2022 DME MISCellane ous See Instructions, Supply 1 glucometer for blood glucose testing at home twice daily. ., # 1 EA, 0 Refill(s), Pharmacy: [facility], DMII (diabetes mellitus, type 2), 172.7, cm, 10/08/22 10:00:00 EST, Height, 85 Start Date: 10/08/22 Status: Ordered 0.5 ML dulaglutide 9 MG/ML Auto-Injector [Trulicity] (10 sources) GLP-1 Receptor Agonist Start: 03-07-2025 Trulicity [...] sites, # 2.5 mL, 0 Refill(s), Pharmacy: [facility], 174.8, cm, 11/24/24 9:42:00 EDT, [...] 2 mL, 1 Refill(s), 0.5 mL/Pen, Pharmacy: [facility], 176, cm, 08/29/23 14:20:00 EST, Height, kg, 08/29/23 14:20:00 EST, Dosing Weight Start Date: 09/24/23 Status: Ordered Start: 08-18-2023 End: 09-17-2023 inject 0.5 mL by subcutaneous injection every week Trulicity Pen 0.75 mg/0.5 mL subcutaneous solution Dose : 0.75 mg = 0.5 mL, Subcutaneous, qWeek, # 4 EA, 0 Refill(s), Pharmacy: [facility], Type 2 diabetes mellitus with [...] qDay, # 180 cap(s), 2 Refill(s), Pharmacy: [facility], 175, cm, 09/01/24 13:07:00 EST, [...] qDay, # 180 cap(s), 2 Refill(s), Pharmacy: [facility], 176, cm, 12/26/23 13:54:00 EDT, [...] qAM, # 90 tab(s), 0 Refill(s), Pharmacy: [facility], Type 2 diabetes mellitus with [...] thereafter., # 30 tab(s), 0 Refill(s), Pharmacy: [facility], 174, cm, 12/08/24 10:52:00 EDT, [...] qAM, # 30 tab(s), 0 Refill(s), Pharmacy: [facility], DMII (diabetes mellitus, type 2), [...] Daily, # 90 tab(s), 3 Refill(s), Pharmacy: [facility], 174, cm, 12/08/24 10:52:00 EDT, Height, kg, 12/08/24 10:52:00 EDT, Dosing Weight Start Date: 02/14/25 Status: Ordered Medication Dispense Status: Completed Quantity: 90.0 Unit: tab(s) Total Allowed Fills: 4 Fills Dispensed: 0 Start: 03-22-2024 ezetimibe 10 m g oral tablet Dose : 10 mg = 1 tab(s), Oral, Daily, # 90 tab(s), 3 Refill(s), Pharmacy: [facility], 176, cm, 03/10/24 8:22:00 EDT, Height, kg, 03/10/24 8:22:00 EDT, Dosing Weight Start Date: 03/22/24 Status: Ordered Quantity: 90.0 Unit: tab(s) Repeat number: 4 Start: 06-06-2023 ezetimibe 10 m g oral tablet Dose : 10 mg = 1 tab(s), Oral, Daily, # 90 tab(s), 3 Refill(s), Pharmacy: [facility], 175, cm, 03/26/23 14:42:00 EDT, [...] qDay, # 30 tab(s), 2 Refill(s), Pharmacy: [facility], HLD (hyperlipidemia) HTN (hypertension), 176, cm, 09/26/23 14:49:00 EST, Height, kg, 09/26/23 14:49:00 EST, Dosing Weight Start Date: 09/26/23 Stop Date: 12/25/23 Status: Ordered furosemide 20 mg oral tablet (14 sources) Loop Diuretic Start: 02-14-2025 Lasix 20 mg oral tablet Dose : 20 mg = 1 tab(s), Oral, qDay, # 30 tab(s), 2 Refill(s), Pharmacy: [facility], 174, cm, 12/08/24 10:52:00 EDT, Height, kg, 12/08/24 10:52:00 EDT, Dosing Weight Start Date: 02/14/25 Status: Ordered Medication Dispense Status: Completed Quantity: 30.0 Unit: tab(s) Total Allowed Fills: 3 Fills Dispensed: 0 Start: 11-24-2024 Lasix 20 mg or al tablet Dose : 20 mg = 1 tab(s), Oral, qDay, # 30 tab(s), 2 Refill(s), Pharmacy: [facility], 174.8, cm, 11/24/24 9:42:00 EDT, Height, kg, 11/24/24 9:42:00 EDT, Dosing Weight Start Date: 11/24/24 Status: Ordered Quantity: 30.0 Unit: tab(s) Repeat number: 3 Start: 11-24-2023 Lasix 20 mg or al tablet Dose : 20 mg = 1 tab(s), Oral, qDay, # 30 tab(s), 11 Refill(s), Pharmacy: [facility], 176, cm, 11/07/23 12:52:00 EDT, Height, kg, 11/07/23 12:52:00 EDT, Dosing Weight Start Date: 11/24/23 Status: Ordered Start: 10-01-2023 Lasix 20 mg or al tablet Dose : 20 mg = 1 tab(s), Oral, qDay, # 30 tab(s), 11 Refill(s), Pharmacy: [facility], 176, cm, 09/26/23 14:49:00 EST, Height, kg, 09/26/23 14:49:00 EST, Dosing Weight Start Date: 10/01/23 Status: Ordered Start: 01-03-2023 End: 06-17-2023 Lasix 20 mg oral tablet Dose : 20 mg = 1 tab(s), Oral, qDay, # 30 tab(s), 2 Refill(s), Pharmacy: [facility], 172.7, cm, 01/10/23 15:40:00 EDT, Height, kg, 02/18/23 15:24:00 EDT, Dosing Weight Start Date: 03/19/23 Stop Date: 06/17/23 Status: Ordered glimepiride 4 mg oral tablet (20 sources) Sulfonylurea Start: 10-08-2022 End: 04-06-2023 glimepiride 4 mg oral tablet Dose : 4 mg = 1 tab(s), Oral, qDay, # 90 tab(s), 1 Refill(s), Pharmacy: [facility], 172.7, cm, 10/08/22 10:00:00 EST, [...] TABS One tablet by mouth daily GLIMEPIRIDE [id number] Miguel Pena MD Comment on above: Take 4 mg by mouth d aily with breakfast. Take 2 tablets by mo uth daily with breakfast. hydroCHLOROthiazide 25 mg / lisinopril 20 mg oral tablet (17 sources) Thiazide Diuretic, Angiotensin Converting Enzyme Inhibitor Start: 05-03-20 19 take 1 tablet by mouth at bedtime Lisinopril-[place] chlorothiazide Active 1 TABLET PO AT BEDTIME [...] q8h, # 270 tab(s), 3 Refill(s), Pharmacy: [facility], 174.8, cm, 10/26/24 11:35:00 EDT, Height, kg, 10/26/24 11:35:00 EDT, Dosing Weight Start Date: 11/17/24 Status: Ordered Quantity: 270.0 Unit: tab(s) Repeat number: 4 Start: 01-25-2024 ibuprofen 800 mg oral tablet Dose : 800 mg = 1 tab(s), Oral, q8h, # 30 tab(s), 2 Refill(s), Pharmacy: [facility], 176, cm, 12/26/23 13:54:00 EDT, Height, kg, 12/26/23 13:56:00 EDT, Dosing Weight Start Date: 01/25/24 Status: Ordered Start: 12-20-2022 ibuprofen 800 mg oral tablet Dose : 800 mg = 1 tab(s), Oral, q8h, # 30 tab(s), 3 Refill(s), Pharmacy: [facility], 176, cm, 09/26/23 14:49:00 EST, [...] TIDAC, # 45 mL, 0 Refill(s), Pharmacy: [facility], 174.8, cm, 11/24/24 9:42:00 EDT, Height, kg, 11/24/24 9:42:00 EDT, Dosing Weight Start Date: 12/08/24 Status: Ordered Quantity: 45.0 Unit: mL Repeat number: 1 Start: 12-24-2023 NovoLOG 100 un its/mL injectable solution Dose : 15 unit(s) =, Subcutaneous, TIDAC, # 45 mL, 3 Refill(s), Pharmacy: [facility], 176, cm, 11/07/23 12:52:00 EDT, [...] ml insulin glargine 100 unt/ml pen injector (17 sources) Insulin Analog Start: 01-25-2025 Lantus Solosta r Pen 100 units/mL 3 mL Pen Dose : 30 unit(s) =, Subcutaneous, qDay, Insurance now requirng Lantus instead of Basaglar, # 30 mL, 3 Refill(s), Pharmacy: [facility], 174, cm, 12/08/24 10:52:00 EDT, [...] endo, # 15 mL, 2 Refill(s), Pharmacy: [facility], 175, cm, 09/01/24 13:07:00 EST, Height, kg, 09/01/24 13:07:00 EST, Dosing Weight Start Date: 10/15/24 Status: Ordered Medication Dispense Status: Completed Quantity: 15.0 Unit: mL Total Allowed Fills: 3 Fills Dispensed: 0 Start: 12-24-2023 Basaglar 100 u nit(s)/mL 3 mL KwikPen 25u, Subcutaneous, Daily, # 15 mL, 2 Refill(s), Pharmacy: [facility], 176, cm, 11/07/23 12:52:00 EDT, [...] UNIT/ML SOPN 5 units daily INSULIN GLARGINE [id number] Miguel Pena MD LANTUS SOLOSTAR 100 UNIT/ML SOPN 5 units daily INSULIN GLARGINE [id number] Miguel Pena MD lamoTRIgine 25 mg oral [...] mg. losartan potassium 100 mg oral tablet (12 sources) Angiotensin 2 Receptor Angelina Start: 11-24-2024 End: 05-23-2025 losartan 100 mg oral tablet Dose : 100 mg = 1 tab(s), Oral, qDay, # 90 tab(s), 1 Refill(s), Pharmacy: [facility], 174.8, cm, 11/24/24 9:42:00 EDT, Height, kg, 11/24/24 9:42:00 EDT, Dosing Weight Start Date: 11/24/24 Stop Date: 05/23/25 Status: Ordered Medication Dispense Status: Completed Quantity: 90.0 Unit: tab(s) Total Allowed Fills: 2 Fills Dispensed: 0 Start: 11-24-2023 losartan 50 mg oral tablet Dose : 50 mg = 1 tab(s), Oral, qDay, # 90 tab(s), 1 Refill(s), Pharmacy: [facility], 176, cm, 11/07/23 12:52:00 EDT, Height, kg, 11/07/23 12:52:00 EDT, Dosing Weight Start Date: 11/24/23 Status: Ordered Start: 09-26-2023 losartan 50 mg oral tablet Dose : 50 mg = 1 tab(s), Oral, qDay, # 90 tab(s), 0 Refill(s), Pharmacy: [facility], 176, cm, 09/26/23 14:49:00 EST, Height, kg, 09/26/23 14:49:00 EST, Dosing Weight Start Date: 09/26/23 Status: Ordered Start: 04-30-2023 losartan 25 mg oral tablet Dose : 25 mg = 1 tab(s), Oral, qDay, # 30 tab(s), 2 Refill(s), Pharmacy: [facility], 176, cm, 08/29/23 14:20:00 EST, Height, kg, 08/29/23 14:20:00 EST, Dosing Weight Start Date: 09/01/23 Status: Ordered magnesium glycinate 100 mg o ral tablet (5 sources) Start: 02-18-2023 magnesium glyc inate 100 mg oral capsule Dose : 200 mg = 2 cap(s), Oral, qDay, # 60 cap(s), 0 Refill(s) Start Date: 02/18/23 Status: Ordered magnesium oxide 400 mg oral tablet (13 sources) Start: 02-14-2025 magnesium oxid e 400 mg oral tablet Dose : 400 mg = 1 tab(s), Oral, qDay, TAKE 1 CAPSULE BY MOUTH EVERY DAY, # 90 tab(s), 1 Refill(s), Pharmacy: [facility], 174, cm, 12/08/24 10:52:00 EDT, [...] DAY, # 90 tab(s), 1 Refill(s), Pharmacy: [facility], 175, cm, 08/23/24 13:53:00 EST, Height, kg, 08/23/24 13:53:00 EST, Dosing Weight Start Date: 08/27/24 Status: Ordered Quantity: 90.0 Unit: tab(s) Repeat number: 2 Start: 09-29-2023 End: 03-27-2024 magnesium oxide 400 mg oral tablet Dose : 400 mg = 1 tab(s), Oral, Daily, X 90 day(s), # 90 tab(s), 1 Refill(s), 03/27/24 5:41:00 PM EDT, Pharmacy: [facility], 176, cm, 09/26/23 14:49:00 EST, Height, kg, 09/26/23 14:49:00 EST, Dosing Weight Start Date: 09/29/23 Stop Date: 03/27/24 Status: Ordered Start: 01-03-2023 take 1 tablet by ana once daily Magnesium 250 mg tablet mg [...] Status: Ordered meloxicam 15 mg oral tablet (3 sources) Nonsteroidal Anti-inflammatory Drug Start: 04-08-2025 End: 05-08-2025 meloxicam 15 mg oral tablet Dose : 15 mg = 1 tab(s), Oral, qDayM, PRN Pain, Take with food/milk and fluids. Do not take any other NSAIDs while on this medication., # 30 tab(s), 0 Refill(s), Pharmacy: [facility], 174, cm, 04/08/25 13:06:00 EDT, [...] 4 TIMES DAILY April 03, 2022 11:00pm [facility] [place] Med[place] (4 sources) Start: 12-20-2022 [facility] [place] Med[place] Dandelion Root, 0 Refill(s), 86.8 Start Date: 12/20/22 Status: Ordered Start: 10-08-2022 [facility] [place] Medic[place] OTC Calcium, 0 Refill(s), 79.55 Start Date: 10/08/22 Status: Ordered nitrofurantoin, macrocrystals 25 mg / nitrofurantoin, monohydrate 75 mg oral capsule (9 sources) Nitrofuran Antibacterial Start: 04-08-2025 End: 04-13-2025 nitrofurantoin macrocrystals-monohydrate 100 mg oral capsule Dose : 100 mg = 1 cap(s), Oral, BID, Take with food. Drink plenty of fluids., X 5 day(s), # 10 cap(s), 0 Refill(s), 04/13/25 1:41:00 PM EDT, Pharmacy: [facility], 174, cm, 04/08/25 13:06:00 EDT, [...] 0 Refill(s), 02/17/24 4:18:00 PM EDT, Pharmacy: [facility], 176, cm, 02/09/24 13:32:00 EDT, Height, 96.8, kg, 02/09/24 13:32:00 EDT, Dosing Weight Start Date: 02/10/24 Stop Date: 02/17/24 Status: Ordered Start: 07-29-2023 End: 08-05-2023 nitrofurantoin macrocrystals-monohydrate 100 mg oral capsule Dose : 100 mg = 1 cap(s), Oral, BID, Take with food, X 7 day(s), # 14 cap(s), 0 Refill(s), 08/05/23 4:46:00 PM EST, Pharmacy: [facility], UTI (urinary tract infection), bacterial, [...] , or chew omega-3 acid ethyl esters (custodial) 1000 mg oral capsule (4 sources) Start: 04-07-2025 omega-3 polyun saturated fatty acids ethyl esters 1000 mg oral capsule Dose : 1,000 mg = 1 cap(s), Oral, BID, TAKE ONE Capsule BY MOUTH TWICE DAILY, # 180 cap(s), 1 Refill(s), Pharmacy: [facility], 174, cm, 03/07/25 11:11:00 EDT, [...] DAILY, # 180 cap(s), 1 Refill(s), Pharmacy: [facility], 175, cm, 09/01/24 13:07:00 EST, Height, kg, 09/01/24 13:07:00 EST, Dosing Weight Start Date: 10/15/24 Status: Ordered Quantity: 180.0 Unit: cap(s) Repeat number: 2 omeprazole 40 mg delayed release oral capsule (20 sources) Proton Pump Inhibitor Start: 07-07-2024 omeprazo le 40 mg oral delayed release capsule Dose : 40 mg = 1 cap(s), Oral, qDay, # 90 cap(s), 3 Refill(s), Pharmacy: [facility], 176, cm, 06/09/24 10:19:00 EST, Height, [...] Refill(s), Pharmacy: [facility], 175, cm, 03/26/23 14:42:00 EDT, [...] Comment on above: TAKE 1 CAPSULE BY [facility] TWICE DAILY 1/2 HOUR BEFORE A MEAL ondansetron 4 mg disintegrating oral tablet (20 sources) Serotonin-3 Receptor Antagonist Start: 03-14-2025 ondansetron 4 mg oral tablet, disintegrating Dose : 4 mg = 1 tab(s), Oral, q6h, PRN Nausea/Vomiting, # 20 tab(s), 3 Refill(s), Pharmacy: [facility], 174, cm, 03/07/25 11:11:00 EDT, Height, kg, 03/07/25 11:11:00 EDT, Dosing Weight Start Date: 03/14/25 Status: Ordered Medication Dispense Status: Completed Quantity: 20.0 Unit: tab(s) Total Allowed Fills: 4 Fills Dispensed: 0 Start: 10-15-2024 ondansetron 4 mg oral tablet, disintegrating Dose : 4 mg = 1 tab(s), Oral, q6h, PRN Nausea/Vomiting, # 20 tab(s), 3 Refill(s), Pharmacy: [facility], 175, cm, 09/01/24 13:07:00 EST, Height, kg, 09/01/24 13:07:00 EST, Dosing Weight Start Date: 10/15/24 Status: Ordered Quantity: 20.0 Unit: tab(s) Repeat number: 4 Start: 01-12-2024 ondansetron 4 mg oral tablet, disintegrating Dose : 4 mg = 1 tab(s), Oral, q6h, PRN Nausea/Vomiting, # 20 tab(s), 6 Refill(s), Pharmacy: [facility], 176, cm, 12/26/23 13:54:00 EDT, Height, kg, 12/26/23 13:56:00 EDT, Dosing Weight Start Date: 01/12/24 Status: Ordered Start: 11-24-2023 ondansetron 4 mg oral tablet, disintegrating Dose : 4 mg = 1 tab(s), Oral, q6h, PRN Nausea/Vomiting, # 20 tab(s), 3 Refill(s), Pharmacy: [facility], 176, cm, 11/07/23 12:52:00 EDT, Height, kg, 11/07/23 12:52:00 EDT, Dosing Weight Start Date: 11/24/23 Status: Ordered Start: 04-30-2023 ondansetron 4 mg oral tablet, disintegrating Dose : 4 mg = 1 tab(s), Oral, q6h, PRN Nausea/Vomiting, # 20 tab(s), 3 Refill(s), Pharmacy: [facility], 176, cm, 09/26/23 14:49:00 EST, [...] HC L 4 MG TABS ONDANSETRON HCL [id number] Miguel Pena MD Comment on above: TAKE 1 TABLET BY ANA TH EVERY 8 HOURS NEEDED NAUSEA phenazopyridine hydrochloride 200 mg oral tablet (1 source) Start: 04-08-2025 End: 04-10-2025 phenazopyridine 200 mg oral tablet Dose : 200 mg = 1 tab(s), Oral, TID, with food, X 2 day(s), # 6 tab(s), 0 Refill(s), 04/10/25 1:42:00 PM EDT, Pharmacy: [facility], 174, cm, 04/08/25 13:06:00 EDT, [...] qDay, # 30 tab(s), 2 Refill(s), Pharmacy: [facility], 176, cm, 12/26/23 13:54:00 EDT, Height, kg, 12/26/23 13:56:00 EDT, Dosing Weight Start Date: 01/25/24 Status: Ordered Start: 09-01-2023 Potassium Chlo ride (Eqv-K-Tab) 10 mEq oral tablet, extended release Dose : 10 mEq = 1 tab(s), Oral, qDay, # 30 tab(s), 2 Refill(s), Pharmacy: [facility], 176, cm, 08/29/23 14:20:00 EST, Height, kg, 08/29/23 14:20:00 EST, Dosing Weight Start Date: 09/01/23 Status: Ordered Start: 01-10-2023 End: 07-16-2023 Potassium Chloride (Eqv-K-Ta b) 10 mEq oral tablet, extended release Dose : 10 mEq = 1 tab(s), Oral, qDay, # 30 tab(s), 5 Refill(s), Pharmacy: [id number], Hypokalemia, 172.7, cm, 01/10/23 15:40:00 EDT, Height, kg, 01/10/23 15:40:00 EDT, Dosing Weight Start Date: 01/17/23 Stop Date: 07/16/23 Status: Ordered Start: 01-10-2023 Potassium Chlo ride (Oll-Pwlp-Wlv M20) 20 mEq oral tablet, extended release [...] day(s), # 10 tab(s), 0 Refill(s), Pharmacy: [facility], 174.3, cm, 07/25/23 7:54:00 EST, [...] 1 TABLET PO EVERY 6 HOURS NEEDED 07 06April 02, 2020 April 04, 2020 11:02pm acetaminophen [...] One tablet by mouth daily CLONIDINE HCL [id number] Miguel Pena MD dextromethorphan hydrobromide 10 mg / guaiFENesin 200 mg / phenylephrine hydrochloride 5 mg oral tablet (5 sources) Uncompetitive J-cyyebr-E-aspartate Receptor Antagonist, Sigma-1 Agonist, alpha-1 Adrenergic Agonist Start: 07-29-2018 End: 05-03-2019 Uicmacqfityij-Jw-Dnzrxjatryy Discontinued 1 EACH PO TWICE A DAY July 29, 2018 12:00am May 03, 2019 10:02am doxycycline monohydrate 100 mg oral tablet (5 sources) Tetracycline-class Drug Start: 05-20-2021 End: 05-30-2021 take 100 mg by mouth twice daily Doxycycline Monohydrate Discontinued 100 MG PO TWICE A DAY 23 05May 19, 2021 11:00pm May 29, 2021 11:01pm estrogens, conjugated (custodial) 0.625 mg/ml vaginal cream (6 sources) Estrogen [...] Receptor Agonist BYETTA 5 MCG PEN 5 M CG/0.02ML SOPN EXENATIDE [id number] Miguel GEORGE 5 MCG PEN 5 MCG/0.02ML SOPN EXENATIDE [id number] Miguel Pena MD fluconazole 100 mg oral tablet (7 sources) Azole Antifungal Start: 03-23-2021 End: 10-31-2022 take 1 tablet by mouth once daily fluconazole (DIFLUCAN) 100 mg tablet Take 1 tablet by mouth once daily. 03/23/2021 10/31/2022 Discontinued Comment on above: [facility] hydrocortisone 10 mg/ml / neomycin 3.5 mg/ml / polymyxin b 34417 unt/ml otic suspension (1 source) Aminoglycoside Antibacterial, [...] tablet by mouth twice daily METFORMIN HCL [id number] Miguel Pena MD milk thistle extract 150 [...] on above: Take 1 capsule by mo [facility] once daily. 24 hr mirabegron 50 mg extended release oral tablet (1 source) beta3-Adrenergic Agonist Start: 07-13-2021 End: 11-22-2021 take 1 tablet by mouth once daily mirabegron (MYRBETRIQ) 50 mg Tb24 Indications: urinary urge incontinence Take 1 tablet by mouth once daily. 30 tablet 5 07/13/2021 11/22/2021 Discontinued (Course of therapy completed) Comment on above: Take 1 tablet by ana th once daily. Drug Treatment Unknown - unknown [...] on above: Take 1 capsule by mo [facility] once daily. ubidecarenone 75 mg oral capsule (5 sources) Start: 07-06-20 End: 08-19-19 Coenzyme Q10 (Ultra Coq10) 75 mg capsule Discontinued 75 MG PO DAILY July 06, 2019 12:00am August 19, 2019 8:12pm Problems Active Problems Problem Classification Problem Date Documented Da te Episodic/Chronic Abdominal pain (7 sources) Abdominal pain; Translations: [Unspecified abdominal pain] Onset: 5 Episodic Acute and unspecified renal failure (1 source) Acute kidney failure, unspecified; Translations: [STEFANO (acute kidney injury) (HCC)] Onset: 3 Episodic Administrative/social admission (2 sources) Persons encountering health services in other specified circumstances; Translations: [Other reasons for seeking consultation] Episodic Anxiety disorders (11 sources) Mixed anxiety and depressive disorder; Translations: [Depressive disorder] Onset: 7 12-18-2016 Chronic Anxiety disorders (14 sources) Panic disorder without agoraphobia; Translations: [Panic disorder [episodic paroxysmal anxiety]] 12-28-2010 Chronic Asthma (20 sources) Asthma; Translations: [Mild intermittent asthma] Onset: 6 12-18-2016 Chronic Cardiac dysrhythmias (1 source) Palpitations; Translations: [Palpitations] Onset: 5 Episodic Chronic kidney disease (4 sources) Chronic kidney disease stage 3 11-24-2024 [...] Episodic Coronary atherosclerosis and other heart disease (16 sources) Coronary arteriosclerosis; Translations: [Atherosclerotic heart disease of [place] coronary artery without angina pectoris] Onset: 5 12-21-2022 Chronic Comment on above: Cardiac cath 11/30/19 23, mild coronary artery disease, preserved EF, no [...] biological substances, initial encounter] Episodic Esophageal disorders (18 sources) Gastro-esophageal reflux disease without esophagitis; Translations: [Gastroesophageal reflux disease] Onset: 7 10-25-2019 Chronic Essential hypertension (20 sources) Hypertensive disorder; Translations: [Essential (primary) hypertension] Onset: 7 12-18-2016 Chronic Gout and other crystal arthropathies (4 sources) Acute gout 10-26-2024 Chronic Heart valve [...] consciousness of unspecified duration, initial encounter] Episodic Menopausal disorders (15 sources) Menopausal syndrome; Translations: [Menopausal and female climacteric states] Onset: 3 Resolved: 4 09-10-2013 Chronic Miscellaneous mental health disorders (5 sources) Psychogenic hyperventilation; 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 Osteoarthritis (8 sources) Arthritis; Translations: [Unspecified osteoarthritis, unspecified site] Onset: 5 07-30-2021 Chronic Other circulatory disease (15 sources) Raynaud's disease 01-03-2023 Chronic Other circulatory disease (1 source) Raynaud's syndrome without gangrene; Translations: [Raynaud's syndrome without gangrene] Onset: Chronic Other circulatory disease (10 sources) Orthostatic hypotension; Translations: [Orthostatic hypotension] Episodic Other circulatory disease (9 sources) 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 09-26-2023 Episodic Other circulatory disease (9 sources) Senile angioma 09-26-2023 Episodic Other connective tissue disease (15 sources) Foot pain 01-03-2023 Episodic Other connective tissue disease (9 sources) Myalgia caused by statin 09-26-2023 Episodic Other ear and sense organ disorders (1 source) Acute otitis externa; Translations: [Unspecified acute noninfective otitis externa, left ear] Episodic Other ear and sense organ disorders (1 source) Unspecified acute noninfective otitis externa, left ear; Translations: [Infective otitis externa, unspecified] Episodic Other eye disorders (10 sources) Disorder of eye region 08-18-2023 Episodic Other gastrointestinal disorders (5 sources) Swallowing painful; Translations: [Dysphagia, unspecified] Episodic Other gastrointestinal disorders (5 sources) Constipation 03-10-2024 Episodic Other infections; including parasitic (1 source) Disorder due to infection; Translations: [Unspecified infectious disease] Episodic Other injuries and conditions due to external causes (10 sources) Concussion injury of body structure 08-18-2023 Episodic Other injuries and conditions due to external causes (10 sources) History of fall 08-18-2023 Episodic Other liver diseases (1 source) Enzyme level - finding; Translations: [Abnormal levels of other serum enzymes] Episodic Other liver diseases (8 sources) Elevated liver enzymes level 12-26-2023 Episodic Other lower respiratory disease (5 sources) Dyspnea on exertion; Translations: [Dyspnea, unspecified] Episodic Other lower respiratory disease (1 source) Pleurodynia; Translations: [Pleurodynia] Onset: 5 Episodic Other lower respiratory disease (1 source) Shortness of breath; Translations: [Shortness of breath] Onset: 5 Episodic Other nervous system disorders (7 sources) Neuropathy; Translations: [Muscular dystrophy] Onset: 7 12-18-2016 Chronic Other nervous system disorders (7 sources) Complex regional pain syndrome of lower limb; Translations: [Complex regional pain syndrome I of unspecified lower limb] Onset: 6 07-30-2021 Chronic Other nervous system disorders (17 sources) Peripheral nerve disease ; Translations: [Polyneuropathy, unspecified] 07-30-2021 Chronic Other nervous system disorders (17 sources) Complex regional pain syndrome; Translations: [Complex [...] Chronic Other nutritional; endocrine; and metabolic disorders (14 sources) Hypomagnesemia; Translations: [Hypomagnesemia] 09-26-2023 Chronic Other nutritional; endocrine; and metabolic disorders (5 sources) H/O: diabetes mellitus; Translations: [Personal history of other endocrine, nutritional and metabolic disease] Episodic Other screening for suspected conditions (not mental disorders or infectious disease) (19 sources) Patient encounter status; Translations: [Encounter for [...] 7 12-18-2016 Chronic Other upper respiratory infections (9 sources) Sinusitis 09-26-2023 Chronic Residual codes; unclassified [...] syncope] Onset: 3 Episodic Residual codes; unclassified (15 sources) Edema of lower extremity 12-09-2022 Episodic [...] problems or disability 12-18-2016 Unclassified (2 sources) 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; Translations: [senior living (current) use of oral hypoglycemic drugs] Onset: 7 Unclassified (2 sources) Other specified postprocedural states; Translations: [Other specified postprocedural states] Onset: 7 Unclassified (10 sources) Patient encounter status 08-18-2023 Unclassified (1 source) Acute candidiasis of vulva and vagina; Translations: [Acute candidiasis of vulva and vagina] Onset: 5 Unclassified (1 source) Long-term (current) use of injectable non-insulin antidiabetic drugs; Translations: [Long-term (current) use of injectable non-insulin antidiabetic drugs] Onset: 5 Urinary tract infections (20 sources) Urinary tract infectious disease; Translations: [Urinary tract infection, site not specified] Episodic Past or Other Problems Problem Classification Problem Date Documented Da te Episodic/Chronic Allergic reactions (18 sources) Allergy status to other drugs, medicaments and biological substances status; Translations: [Anaphylactic shock, unspecified, initial encounter] Onset: 02-20-2017 Episodic Blindness and vision defects (10 sources) Disorder of vision; Translations: [Visual disturbance] Onset: 12-18-2016 12-18-2016 Episodic Coagulation and hemorrhagic disorders (7 sources) Bleeds easily; Translations: [Hemorrhagic condition, unspecified] Onset: 04-11-2014 04-11-2014 Episodic Diabetes mellitus without complication (2 sources) Hyperglycemia, unspecified; Translations: [Impaired fasting glycemia] Onset: 12-28-2010 Resolved: 03-01-2015 07-30-2021 Episodic Fluid and electrolyte disorders (19 sources) Hypo-osmolality and hyponatremia; Translations: [Hypokalemia] Onset: 10-30-2022 Episodic Fracture of lower limb (2 sources) [...] Translations: [Other hemorrhoids] Onset: 09-09-2008 12-28-2010 Episodic Malaise and fatigue (1 source) Other fatigue; Translations: [Other fatigue] Onset: 01-07-2025 Episodic Nausea and vomiting (20 sources) Intractable nausea and vomiting; Translations: [Nausea and vomiting] Onset: 12-18-2016 12-18-2016 Episodic Nonmalignant breast conditions (5 sources) Breast lump; Translations: [Pain of breast] Onset: 09-18-2006 Resolved: 08-30-2009 12-18-2016 Episodic Nonspecific chest pain (16 sources) Left sided chest pain; Translations: [Chest pain, unspecified] Onset: 08-05-2006 Resolved: 08-30-2009 08-30-2009 Episodic Other aftercare (3 sources) senior living (current) use of insulin; Translations: [senior living (current) use of insulin] Onset: 02-20-2017 Episodic [...] Test Name Value Interpretation Reference Range Facility Abdomen/Pelvis W IV Cont ONL Yon 04-12-2025 Abdomen/Pelvis W IV Cont ONLY [facility] Imaging Services [address] [place], [place] [address], [place] [id number] Abdomen/Pelvis W IV Cont ONLY MR#: [id number] Acct: [id number] Name: CHRISSY LAY Rep #: [id number] : 1965 F 59 From: Melany Cespedes PCP: ELOISA McraeC Status: REG ER Study: Abdomen/Pelvis W IV Cont ONLY Date of Exam: Exam# [id number] Ordering Dr: Hawk Mejia DO PROCEDURE: ABDOMEN/PELVIS W IV CONT ONLY 04/12/2025 REASON FOR EXAM: ABDOMINAL PAIN TECHNIQUE: Procedure Code: [id number] Modality: CT Procedure: ABDOMEN/PELVIS W IV CONT ONLY Coronal and Sagittal reconstruction series were provided. CONTRAST: 100 mL of Isovue 370 One or more dose reduction techniques were used (e.g., Automated exposure control, adjustment of the mA and/or kV according to patient size, use of iterative reconstruction technique. RADIATION DOSE SUMMARY: DLP: 1819 mGycm COMPARISON: 04/09/25 FINDINGS: Limited sections of the lung bases demonstrate no focal pulmonary mass or consolidations. The liver, spleen, pancreas, and both adrenal glands demonstrate no acute findings. Hepatomegaly to 17.7 cm. The gallbladder is surgically removed The stomach is unremarkable. The small bowel loops are not dilated. The appendix is surgically removed. No colonic obstruction. There is no free air or significant free fluid. The kidneys are unremarkable. Mildly thickened urinary bladder wall which may reflect cystitis vs nondistention; consider correlation with urinalysis. The pelvic structures are intact. Uterus is surgically removed. No significant lymphadenopathy. The aorta and IVC demonstrate no acute findings. Visualized osseous structures demonstrate no acute abnormality. CT/Abdomen/Pelvis W IV Cont ONLY IMPRESSION: Mildly thickened urinary bladder wall which may reflect cystitis vs nondistention; consider correlation with urinalysis. Reading Location: [id number] CC: WINDOWS APPLICATION ADMINISTRATOR-C Chantale Ramsey; Dr. Hawk Mejia DO Pharmacy Helper: Signed Normal [facility] CBC W/Diff, Automatedon Absolute Lymph 2.38 X10 3/uL Normal 0.83-4.51 [facility] Comment on above: Performed By: #### L 501.2450, L501.4021, L100.0100, L500.4050 ####[facility] [address] [place], [address] Absolute Neut 4.3 X10 3/uL Normal 2.0-7.7 [facility] Comment on above: Performed By: #### L 501.2450, L501.4021, L100.0100, L500.4050 ####[facility] [address] [place], [address] Basophils/100 WBC (Bld) 0.4 % Normal 0-1 [facility] Comment on above: Performed By: #### L 501.2450, L501.4021, L100.0100, L500.4050 ####[facility] [address] [place], [address] Eosinophils/100 WBC (Bld) 2.0 % Normal 0-5 [facility] Comment on above: Performed By: #### L 501.2450, L501.4021, L100.0100, L500.4050 ####[facility] [address] [place], [address] Erythrocyte distribution width (RBC) [Ratio] 12.5 % Normal 11.6-14.6 [facility] Comment on above: Performed By: #### L 501.2450, L501.4021, L100.0100, L500.4050 ####[facility] [address] [place], [address] Hematocrit (Bld) [Volume fraction] 46.6 % Normal 37-47 [facility] Comment on above: Performed By: #### L 501.2450, L501.4021, L100.0100, L500.4050 ####[facility] [address] [place], [address] Hemoglobin (Bld) [Mass/Vol] 15.6 g/dL High 12.0-15.0 [facility] Comment on above: Performed By: #### L 501.2450, L501.4021, L100.0100, L500.4050 ####[facility] [address] [place], [address] IG% 0.300 Normal 0.0-0.9 [facility] Comment on above: Result Comment: IG% - Immature Granulocytes (promyelocytes, myelocytes and metamyelocytes) > 1% indicates that a LEFT SHIFT is Present. Performed By: #### L 501.2450, L501.4021, L100.0100, L500.4050 ####[facility] [address] [place], [address] Lymphocytes/100 WBC (Bld) 31.9 % Normal 19-41 [facility] Comment on above: Performed By: #### L 501.2450, L501.4021, L100.0100, L500.4050 ####[facility] [address] [place], [address] MCH (RBC) [Entitic mass] 30.8 pg Normal 27.0-32.0 [facility] Comment on above: Performed By: #### L 501.2450, L501.4021, L100.0100, L500.4050 ####[facility] [address] [place], [address] MCHC (RBC) [Mass/Vol] 33.5 g/dL Normal 32-36 [facility] Comment on above: Performed By: #### L 501.2450, L501.4021, L100.0100, L500.4050 ####[facility] [address] [place], [address] MCV (RBC) [Entitic vol] 91.9 fL Normal 81-99 [facility] Comment on above: Performed By: #### L 501.2450, L501.4021, L100.0100, L500.4050 ####[facility] [address] [place], [address] Monocytes/100 WBC (Bld) 8.0 % Normal 0-10 [facility] Comment on above: Performed By: #### L 501.2450, L501.4021, L100.0100, L500.4050 ####[facility] [address] [place], [address] Neutrophils/100 WBC (Bld) 57.4 % Normal 47-70 [facility] Comment on above: Performed By: #### L 501.2450, L501.4021, L100.0100, L500.4050 ####[facility] [address] [place], [address] Nucleated RBC (Bld) [#/Vol] 0 10*3/uL Normal 0-5 [facility] Comment on above: Performed By: #### L 501.2450, L501.4021, L100.0100, L500.4050 ####[facility] [address] [place], [address] Platelet mean volume (Bld) [Entitic vol] 9.3 fL Normal 6.2-12.0 [facility] Comment on above: Performed By: #### L 501.2450, L501.4021, L100.0100, L500.4050 ####[facility] [address] [place], [address] Platelets (Bld) [#/Vol] 327 10*3/uL Normal 150-450 [facility] Comment on above: Performed By: #### L 501.2450, L501.4021, L100.0100, L500.4050 ####[facility] [address] [place], [address] RBC (Bld) [#/Vol] 5.07 10*6/uL Normal 4.2-5.4 [facility] Comment on above: Performed By: #### L 501.2450, L501.4021, L100.0100, L500.4050 ####[facility] [address] [place], [address] RDW SD 42.0 fl Normal 35.1-43.9 [facility] Comment on above: Performed By: #### L 501.2450, L501.4021, L100.0100, L500.4050 ####[facility] [address] [place], [address] WBC (Bld) [#/Vol] 7.5 10*3/uL Normal 4.4-11.0 [facility] Comment on above: Performed By: #### L 501.2450, L501.4021, L100.0100, L500.4050 ####[facility] [address] [place], [address] Chest without Contraston Chest without Contrast [facility] Imaging Services [address] [place] [address] Chest without Contrast MR#: [id number] Acct: [id number] Name: CHRISSY LAY Louie Rep #: [id number] : 1965 F 59 From: Melany Cespedes PCP: Chantale Ramsey WINDOWS APPLICATION ADMINISTRATOR-C Status: [facility] ER Study: Chest without Contrast Date of Exam: 04/12/25 Exam# [id number] Ordering Dr: Hawk Mejia DO PROCEDURE: CHEST WITHOUT CONTRAST 04/12/2025 REASON FOR EXAM: LEFT SIDED RIB PAIN TECHNIQUE: Chest CT without contrast. Coronal and Sagittal reconstruction series were provided. One or more dose reduction techniques were used (e.g., Automated exposure control, adjustment of the mA and/or kV according to patient size, use of iterative reconstruction technique RADIATION DOSE SUMMARY: DLP: 1819 mGycm COMPARISON: None FINDINGS: LUNGS AND PLEURA: No infiltrate. No pleural effusion. No pneumothorax. No pleural thickening. No nodules or masses. MEDIASTINUM: No lymphadenopathy or mass. The heart shows no acute findings. The aorta shows no acute findings. The pulmonary trunk and branches of the vessels in the mediastinum are within normal limits. SUPRACLAVICULAR AND AXILLARY: No abnormalities seen in these regions. No mass or significant lymphadenopathy. UPPER ABDOMEN: The visualized upper abdomen is unremarkable. BONES AND SOFT TISSUES: Nondisplaced left anterior T7 rib fracture. The subcutaneous soft tissues are unremarkable. CT/Chest without Contrast IMPRESSION: Nondisplaced left anterior T7 rib fracture. No pneumothorax. No focal consolidations. Reading [id number] CC: NADIA Ramsey; Dr. Hawk Mejia DO Pharmacy Helper: Signed Normal [facility] Comprehensive Metabolic Prof ilon 04-12-2025 Albumin [Mass/Vol] 3.6 g/dL Normal 3.5-5.0 [facility] Comment on above: Performed By: #### L 501.2450, L501.4021, L100.0100, L500.4050 ####[facility] [address] [place], [address] Albumin/Globulin [Mass ratio] 1.2 {ratio} Normal 0.9-2.4 [facility] Comment on above: Performed By: #### L 501.2450, L501.4021, L100.0100, L500.4050 ####[facility] [address] [place], [address] ALK PHOS 133 U/L High 35-104 [facility] Comment on above: Performed By: #### L 501.2450, L501.4021, L100.0100, L500.4050 ####[facility] [address] [place], [address] ALT [Catalytic activity/Vol] 28 U/L Normal <=34 [facility] Comment on above: Performed By: #### L 501.2450, L501.4021, L100.0100, L500.4050 ####[facility] [address] [place], [address] AST [Catalytic activity/Vol] 41 U/L High <=31 [facility] Comment on above: Result Comment: Hemo lysis present, Results??could be affected. ?? Performed By: #### L 501.2450, L501.4021, L100.0100, L500.4050 ####[facility] [address] [place], [address] Bilirubin [Mass/Vol] 0.42 mg/dL Normal 0.00-1.30 [facility] Comment on above: Performed By: #### L 501.2450, L501.4021, L100.0100, L500.4050 ####[facility] [address] [place], [address] BUN/CRE 13.5 RATIO Normal 10-20 [facility] Comment on above: Performed By: #### L 501.2450, L501.4021, L100.0100, L500.4050 ####[facility] [address] [place], [address] Calcium [Mass/Vol] 9.2 mg/dL Normal 7.6-11.0 [facility] Comment on above: Performed By: #### L 501.2450, L501.4021, L100.0100, L500.4050 ####[facility] [address] [place], [address] Chloride [Moles/Vol] 102 mmol/L Normal 98-108 [facility] Comment on above: Performed By: #### L 501.2450, L501.4021, L100.0100, L500.4050 ####[facility] [address] [place], [address] CO2 [Moles/Vol] 21.5 mmol/L Normal 21.0-32.0 [facility] Comment on above: Performed By: #### L 501.2450, L501.4021, L100.0100, L500.4050 ####[facility] [address] [place], [address] Creatinine [Mass/Vol] 0.69 mg/dL Low 0.70-1.20 [facility] Comment on above: Performed By: #### L 501.2450, L501.4021, L100.0100, L500.4050 ####[facility] [address] [place], [address] ECRCL 106.41 ml/min Normal 50-250 [facility] Comment on above: Performed By: #### L 501.2450, L501.4021, L100.0100, L500.4050 ####[facility] [address] [place], [address] GAP 14 Normal 5-15 [facility] Comment on above: Performed By: #### L 501.2450, L501.4021, L100.0100, L500.4050 ####[facility] [address] [place], [address] GFR/1.73 sq M.predicted among non-blacks MDRD (S/P/Bld) [Vol rate/Area] 101 mL/min/{1.73_m2} Normal >60 [facility] Comment on above: Result Comment: mL/m in/1.73m2 CKD-EPI Creatinine Equation (2020) Performed By: #### L 501.2450, L501.4021, L100.0100, L500.4050 ####[facility] [address] [place], [address] Globulin (S) [Mass/Vol] 3.0 g/dL Normal 2.2-4.2 [facility] Comment on above: Performed By: #### L 501.2450, L501.4021, L100.0100, L500.4050 ####[facility] [address] [place], [address] Glucose [Mass/Vol] 235 mg/dL High 70-99 [facility] Comment on above: Performed By: #### L 501.2450, L501.4021, L100.0100, L500.4050 ####[facility] [address] [place], [address] Potassium [Moles/Vol] 3.7 mmol/L Normal 3.3-5.1 [facility] Comment on above: Result Comment: Hemo lysis present, Results??could be affected. ?? Performed By: #### L 501.2450, L501.4021, L100.0100, L500.4050 ####[facility] [address] [place], [address] Sodium [Moles/Vol] 138 mmol/L Normal 133-145 [facility] Comment on above: Performed By: #### L 501.2450, L501.4021, L100.0100, L500.4050 ####[facility] [address] [place], [address] T PROT 6.6 g/dL Normal 5.9-8.4 [facility] Comment on above: Performed By: #### L 501.2450, L501.4021, L100.0100, L500.4050 ####[facility] [address] [place], [address] Urea nitrogen [Mass/Vol] 9 mg/dL Normal 4-19 [facility] Comment on above: Performed By: #### L 501.2450, L501.4021, L100.0100, L500.4050 ####[facility] [address] [place], [address] Emergency Department Summary on 04-12-2025 Emergency Department Summary [facility] Records Department [address] [place] [address] Emergency Department Summary 04/12/25 MR#: [id number] Acct: [id number] Name: CHRISSY LAY Rep #: [id number] : 1965 59 From: Hawk Mejia DO PCP: ELOISA McraeC Status:DEP ER Location: ED HPI HPI - Female History of Present Illness Chief Complaint: Abd Pain PFSH PFSH Medical History Osteoarthritis of left knee Left [...] Shoulder pain Hemorrhoids Nausea vomiting Depressed Asthma Medical History no medical history Home Medications ???Medication ???Instructions ???Recorded ???Last Taken [...] 3 Unknown Rx tablet vomiting #10 tabs allopurinol 100 mg tablet 100 mg PO DAILY 06/18/23 Unknown H istory pen needle, diabetic 32 gauge x #100 ea 10/23/23 Unknown Rx 5/32 (BD Ultra-Fine Thais Pen [...] 06/21/24 Unknown Rx Tanmay 2 Sensor kit) omeprazole 20 mg capsule,delayed 40 mg PO DAILY GERD 07/19/24 Unkno wn History release insulin glargine 100 unit/mL (3 30 unit (0.3 mL) subcut QAM #27 mL 08/02/24 Unknown Rx mL) subcutaneous pen (Basaglar KwikPen U-100 Insulin) dicyclomine 10 mg capsule 10 mg PO TID PRN abdominal pain 7 11/07/24 Unknown Rx days #21 caps zinc acetate 25 mg (zinc) capsule 25 mg PO DAILY 11/07/24 Unknown H istory (Galzin) mecobalamin (vitamin B12) 500 mcg mcg PO 01/07/25 Unknown History chewable tablet dulaglutide 4.5 mg/0.5 mL 4.5 mg (0.5 mL) subcut QWEEK #2 mL 01/17/25 Unknown Rx subcutaneous pen injector (Trulicity) fluconazole 100 mg tablet 100 mg PO DAILY vaginal yeast 01/02 01/26 Unknown Rx (Diflucan) infection #2 tabs insulin glargine 100 unit/mL (3 30 unit (0.3 mL) subcut QDAY #27 m L 01/20/25 Unknown Rx mL) subcutaneous pen (Lantus Solostar U-100 Insulin) cholecalciferol (vitamin D3) 50 50 mcg PO QDAY #90 caps 03/28/25 U nknown Rx mcg (2,000 unit) capsule nitrofurantoin 100 mg PO Q12H 5 days #10 caps 01/26 Unknown Rx monohydrate/macrocrystals 100 mg capsule (Macrobid) metoclopramide HCl 5 mg tablet 5 mg PO (more content not included)... Normal [facility] L501.4021on 04-12-2025 Trop T High Sen < 6 Normal <=14 [facility] Comment on above: Performed By: #### L 501.2450, L501.4021, L100.0100, L500.4050 ####[facility] [address] [facility] [place], [place], [address] Lipaseon 04-12-2025 Lipase [Catalytic activity/Vol] 27 U/L Normal 13-75 [facility] Comment on above: Result Comment: Lo hansen note: LIPASE revised reference range effective 22. New Lipase methodology. Expected to produce lower values than the previous assay method. NEW Reference Range: 13 - 75 U/L Performed By: #### L 501.2450, L501.4021, L100.0100, L500.4050 ####[facility] [address] [facility]. [place], [place], [address] Troponin T HS 2 HRon 025 Trop T High Sen < 6 Normal <=14 [facility] Comment on above: Result Comment: Hemo lysis present, Results??could be affected. ?? Performed By: #### L 499.0042 #### [facility] [address] [place], [address] Troponin T HS 4 HRon 025 Trop T High Sen Normal <=14 [facility] Comment on above: Result Comment: Canc elled via OM: MD Ordered Performed By: #### L 499.0043 ####[facility] [address] [place], [address] Urinalysis, Completeon 04-12 EPI,SQUAMOUS 5-10 SEEN Normal 5-10 [facility] Comment on above: Order Comment: CLEAN CATCH Performed By: #### L 502.0250, L500.4100, L503.6620, L506.1000 #### [facility] [address] [place], [address] RBC 0-5 SEEN Normal 0-5 [facility] Comment on above: Order Comment: CLEAN CATCH Performed By: #### L 502.0250, L500.4100, L503.6620, L506.1000 #### [facility] [address] [place], [address] WBC 5-10 SEEN Normal 0-5 [facility] Comment on above: Order Comment: CLEAN CATCH Performed By: #### L 502.0250, L500.4100, L503.6620, L506.1000 #### [facility] [address] [place], [address] BACTERIA 0 SEEN Normal None Seen [facility] Comment on above: Order Comment: CLEAN CATCH Performed By: #### L 502.0250, L500.4100, L503.6620, L506.1000 #### [facility] [address] [place], [address] Mucus Ql (Urine sed) 0 SEEN Normal [facility] Comment on above: Order Comment: CLEAN CATCH Performed By: #### L 502.0250, L500.4100, L503.6620, L506.1000 #### [facility] [address] [place], [address] 12 Lead EKGon 04-09-2025 12 Lead EKG [facility] Cardiovascular Services [address] [place] [address] 12 Lead EKG 04/09/25 1149 MR#: [id number] Acct: [id number] Name: CHRISSY LAY Rep #: [id number] : 1965 59 From: Narciso Montanez MD Attending Dr: Status: DEP ER Ordering Dr: Mirlande Last MD Date: 04/09/25 Location: ED Sex: F C Admitted: Test Reason : FALL Blood Pressure : */* mmHG Vent. Rate : 90 BPM Atrial Rate : 90 BPM P-R Int : 146 ms QRS Dur : 76 ms QT Int : 364 ms P-R-T Axes : 21 20 23 degrees QTcB Int : 445 ms Normal sinus rhythm Normal ECG Confirmed by Narciso Montanez ([id number]), manuscript editor TRISTON ENCARNACION ([id number]) on 04/12/2025 5:50:20 AM Referred By: Confirmed By: Narciso Montanez 04/12/25 0550 Date Narciso Montanez MD CC: WINDOWS APPLICATION ADMINISTRATOR-C Chantale Ramsey; Dr. Mirlande Last MD Signed Normal [facility] CBC W/Diff, Automatedon 09-0 Absolute Lymph 2.15 X10 3/uL Normal 0.83-4.51 [facility] Comment on above: Performed By: #### L 501.2450, L100.0100, L500.4050 #### [facility] [address] [place], [address] Absolute Neut 7.3 X10 3/uL Normal 2.0-7.7 [facility] Comment on above: Performed By: #### L 501.2450, L100.0100, L500.4050 #### [facility] [address] [place], [address] Basophils/100 WBC (Bld) 0.6 % Normal 0-1 [facility] Comment on above: Performed By: #### L 501.2450, L100.0100, L500.4050 #### [facility] [address] [place], [address] Eosinophils/100 WBC (Bld) 1.5 % Normal 0-5 [facility] Comment on above: Performed By: #### L 501.2450, L100.0100, L500.4050 #### [facility] [address] [place], [address] Erythrocyte distribution width (RBC) [Ratio] 12.5 % Normal 11.6-14.6 [facility] Comment on above: Performed By: #### L 501.2450, L100.0100, L500.4050 #### [facility] [address] [place], [address] Hematocrit (Bld) [Volume fraction] 44.0 % Normal 37-47 [facility] Comment on above: Performed By: #### L 501.2450, L100.0100, L500.4050 #### [facility] [address] [place], [address] Hemoglobin (Bld) [Mass/Vol] 14.9 g/dL Normal 12.0-15.0 [facility] Comment on above: Performed By: #### L 501.2450, L100.0100, L500.4050 #### [facility] [address] [place], [address] IG% 0.400 Normal 0.0-0.9 [facility] Comment on above: Result Comment: IG% - Immature Granulocytes (promyelocytes, myelocytes and metamyelocytes) > 1% indicates that a LEFT SHIFT is Present. Performed By: #### L 501.2450, L100.0100, L500.4050 #### [facility] [address] [place], [address] Lymphocytes/100 WBC (Bld) 20.6 % Normal 19-41 [facility] Comment on above: Performed By: #### L 501.2450, L100.0100, L500.4050 #### [facility] [address] [place], [address] MCH (RBC) [Entitic mass] 30.8 pg Normal 27.0-32.0 [facility] Comment on above: Performed By: #### L 501.2450, L100.0100, L500.4050 #### [facility] [address] [place], [address] MCHC (RBC) [Mass/Vol] 33.9 g/dL Normal 32-36 [facility] Comment on above: Performed By: #### L 501.2450, L100.0100, L500.4050 #### [facility] [address] [place], [address] MCV (RBC) [Entitic vol] 90.9 fL Normal 81-99 [facility] Comment on above: Performed By: #### L 501.2450, L100.0100, L500.4050 #### [facility] [address] [place], [address] Monocytes/100 WBC (Bld) 7.4 % Normal 0-10 [facility] Comment on above: Performed By: #### L 501.2450, L100.0100, L500.4050 #### [facility] [address] [place], [address] Neutrophils/100 WBC (Bld) 69.5 % Normal 47-70 [facility] Comment on above: Performed By: #### L 501.2450, L100.0100, L500.4050 #### [facility] [address] [place], [address] Nucleated RBC (Bld) [#/Vol] 0 10*3/uL Normal 0-5 [facility] Comment on above: Performed By: #### L 501.2450, L100.0100, L500.4050 #### [facility] [address] [place], [address] Platelet mean volume (Bld) [Entitic vol] 8.9 fL Normal 6.2-12.0 [facility] Comment on above: Performed By: #### L 501.2450, L100.0100, L500.4050 #### [facility] [address] [place], [address] Platelets (Bld) [#/Vol] 328 10*3/uL Normal 150-450 [facility] Comment on above: Performed By: #### L 501.2450, L100.0100, L500.4050 #### [facility] [address] [place], [address] RBC (Bld) [#/Vol] 4.84 10*6/uL Normal 4.2-5.4 [facility] Comment on above: Performed By: #### L 501.2450, L100.0100, L500.4050 #### [facility] [address] [place], [address] RDW SD 41.9 fl Normal 35.1-43.9 [facility] Comment on above: Performed By: #### L 501.2450, L100.0100, L500.4050 #### [facility] [address] [place], [address] WBC (Bld) [#/Vol] 10.4 10*3/uL Normal 4.4-11.0 [facility] Comment on above: Performed By: #### L 501.2450, L100.0100, L500.4050 #### [facility] [address] [place], [address] CT Chest, Abd, Pel w/Contras ton 04-09-2025 CT Chest, Abd, Pel w/Contrast [facility] [address] [place] [address] CT Chest, Abd, Pel w/Contrast MR#: [id number] Acct: [id number] Name: CHRISSY LAY Rep #: [id number] : 1965 F 59 From: Arpit wild MD PCP: Chantale Ramsey WINDOWS APPLICATION ADMINISTRATOR-C Status: [facility] Study: CT Chest, Abd, Pel w/Contrast Date of Exam: Exam# [id number] Ordering Dr: Mirlande Last MD PROCEDURE: CT CHEST, ABD, PEL W/CONTRAST 04/09/2025 REASON FOR EXAM: FALL, ABDOMINAL PAIN, LUQ TECHNIQUE: Chest, abdomen and pelvis CT with intravenous contrast. Coronal and Sagittal reconstruction series were provided. One or more dose reduction techniques were used (e.g., Automated exposure control, adjustment of the mA and/or kV according to patient size, use of iterative reconstruction technique. PATIENT PREPARATION: Per protocol ORAL CONTRAST TYPE: None. AMOUNT: mL CONTRAST: Isovue 370 VOLUME: 100mL RADIATION DOSE SUMMARY: CTDlvol: 24.48 mGy DLP: 1824.57 mGycm COMPARISON: 11/07/2024 FINDINGS: CT CHEST: Hardware: Partially visualized ACDF lower cervical spine. Lymph nodes: No enlarged mediastinal, hilar, or axillary lymph nodes. Heart and Vasculature: No cardiomegaly. No pericardial effusion. No filling defect in the pulmonary arteries to suggest embolus. Pulmonary trunk and ascending aorta are within normal limits. Lungs and Airways: Mild scarring/atelectasis in the left lung lingula. No pulmonary mass or consolidation. Pleura: No pleural mass or effusion. Bones: No destructive osseous lesion. CT ABDOMEN/PELVIS: Liver: Mild diffuse fatty infiltration. No intrahepatic biliary ductal dilatation. Portal vein is patent. Gallbladder: Cholecystectomy changes. Spleen: Normal Pancreas: Unremarkable Adrenals: No adrenal mass. Kidneys: Unremarkable. No hydronephrosis or hydroureter. Bladder: Within normal limits Reproductive Organs: Hysterectomy Bowel: Nonobstructive Appendix: Appendectomy. Lymph nodes: No enlarged abdominal, retroperitoneal, or pelvic lymph nodes Vasculature: Within normal limits Peritoneum / Retroperitoneum: No ascites Bones: No destructive osseous lesion CT/CT Chest, Abd, Pel w/Contrast IMPRESSION: 1. There is no acute process in the chest, abdomen or pelvis Reading [facility] CC: NADIA Ramsey; Dr. Mirlande Last MD Pharmacy Helper: Signed Normal [facility] Comprehensive Metabolic Prof ilon 04-09-2025 Albumin [Mass/Vol] 3.6 g/dL Normal 3.5-5.0 [facility] Comment on above: Performed By: #### L 501.2450, L100.0100, L500.4050 ####[facility] [address] [place], [address] Albumin/Globulin [Mass ratio] 1.2 {ratio} Normal 0.9-2.4 [facility] Comment on above: Performed By: #### L 501.2450, L100.0100, L500.4050 ####[facility] [address] [place], [address] ALK PHOS 125 U/L High 35-104 [facility] Comment on above: Performed By: #### L 501.2450, L100.0100, L500.4050 ####[facility] [address] [place], [address] ALT [Catalytic activity/Vol] 30 U/L Normal <=34 [facility] Comment on above: Performed By: #### L 501.2450, L100.0100, L500.4050 ####[facility] [address] [place], [address] AST [Catalytic activity/Vol] 31 U/L Normal <=31 [facility] Comment on above: Result Comment: Hemo lysis present, Results??could be affected. ?? Performed By: #### L 501.2450, L100.0100, L500.4050 ####[facility] [address] [place], [address] Bilirubin [Mass/Vol] 0.32 mg/dL Normal 0.00-1.30 [facility] Comment on above: Performed By: #### L 501.2450, L100.0100, L500.4050 ####[facility] [address] [place], [address] BUN/CRE 13.2 RATIO Normal 10-20 [facility] Comment on above: Performed By: #### L 501.2450, L100.0100, L500.4050 ####[facility] [address] [place], [address] Calcium [Mass/Vol] 9.0 mg/dL Normal 7.6-11.0 [facility] Comment on above: Performed By: #### L 501.2450, L100.0100, L500.4050 ####[facility] [address] [place], [address] Chloride [Moles/Vol] 107 mmol/L Normal 98-108 [facility] Comment on above: Performed By: #### L 501.2450, L100.0100, L500.4050 ####[facility] [address] [place], [address] CO2 [Moles/Vol] 16.5 mmol/L Low 21.0-32.0 [facility] Comment on above: Performed By: #### L 501.2450, L100.0100, L500.4050 ####[facility] [address] [place], [address] Creatinine [Mass/Vol] 0.62 mg/dL Low 0.70-1.20 [facility] Comment on above: Performed By: #### L 501.2450, L100.0100, L500.4050 ####[facility] [address] [place], [address] ECRCL 120.26 ml/min Normal 50-250 [facility] Comment on above: Performed By: #### L 501.2450, L100.0100, L500.4050 ####[facility] [address] [place], [address] GAP 16 High 5-15 [facility] Comment on above: Performed By: #### L 501.2450, L100.0100, L500.4050 ####[facility] [address] [place], [address] GFR/1.73 sq M.predicted among non-blacks MDRD (S/P/Bld) [Vol rate/Area] 103 mL/min/{1.73_m2} Normal >60 [facility] Comment on above: Result Comment: mL/m in/1.73m2 CKD-EPI Creatinine Equation (2020) Performed By: #### L 501.2450, L100.0100, L500.4050 ####[facility] [address] [place], [address] Globulin (S) [Mass/Vol] 2.9 g/dL Normal 2.2-4.2 [facility] Comment on above: Performed By: #### L 501.2450, L100.0100, L500.4050 ####[facility] [address] [place], [address] Glucose [Mass/Vol] 296 mg/dL High 70-99 [facility] Comment on above: Performed By: #### L 501.2450, L100.0100, L500.4050 ####[facility] [address] [place], [address] Potassium [Moles/Vol] 3.6 mmol/L Normal 3.3-5.1 [facility] Comment on above: Result Comment: Hemo lysis present, Results??could be affected. ?? Performed By: #### L 501.2450, L100.0100, L500.4050 ####[facility] [address] [place], [address] Sodium [Moles/Vol] 140 mmol/L Normal 133-145 [facility] Comment on above: Performed By: #### L 501.2450, L100.0100, L500.4050 ####[facility] [address] [place], [address] T PROT 6.5 g/dL Normal 5.9-8.4 [facility] Comment on above: Performed By: #### L 501.2450, L100.0100, L500.4050 ####[facility] [address] [place], [address] Urea nitrogen [Mass/Vol] 8 mg/dL Normal 4-19 [facility] Comment on above: Performed By: #### L 501.2450, L100.0100, L500.4050 ####[facility] [address] 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 Patient reports that she has gastroparesis and was at work on Friday and began vomiting pretty aggressively she states. States that she developed the left-sided rib pain after this and thinks that she cracked her rib. She followed up with her primary care doctor who obtained x-rays of her chest which were reportedly negative on . She has been taking Tylenol and Motrin for pain at home. States the pain is not controlled. She reports that night she stubbed her left toe causing her to fall on her left knee and into a metal stool on her left sided chest. States that she fell backwards striking the back of her head from knee level. She denies loss of consciousness, use of oral anticoagulation, neck pain or back pain. Denies hip pain. [facility] Medical History Osteoarthritis of left knee Left [...] Shoulder pain Hemorrhoids Nausea vomiting Depressed Asthma Medical History no medical history Home Medications ???Medication ???Instructions ???Recorded ???Last Taken [...] 3 Unknown Rx tablet vomiting #10 tabs allopurinol 100 [...] 06/21/24 Unknown Rx Tanmay 2 Sensor kit) omeprazole 20 mg capsule,delayed 40 mg PO DAILY GERD 07/19/24 Unkno wn History release insulin glargine 100 unit/mL (3 30 unit (0.3 mL) subcut QAM #27 mL 08/02/24 Unknown Rx mL) subcutaneous pen (Basaglar KwikPen U-100 Insulin) dicyclomine 10 mg capsule 10 mg PO TID PRN abdominal pain 7 11/07/24 Unknown Rx days #21 caps (more content not included)... Normal [facility] Extremity Lower without Cont raon 04-09-2025 Extremity Lower without Contra [facility] [address] [place] [address] Extremity Lower without Contra MR#: [id number] Acct: [id number] Name: CHRISSY LAY Rep #: [id number] : 1965 F 59 From: Steven Hinds MD PCP: Chantale Ramsey, WINDOWS APPLICATION ADMINISTRATOR-C Status: REG ER Study: Extremity Lower without Contra Date of Exam: 0 04/09/25 Exam# [id number] Ordering Dr: Mirlande Last MD PROCEDURE: EXTREMITY LOWER WITHOUT CONTRA 04/09/2025 REASON FOR EXAM: ABNORMALITY ON KNEE XR RULE OUT TIBIAL PLATEAU FX TECHNIQUE: Procedure Code: CTELWO Modality: CT Procedure: EXTREMITY LOWER WITHOUT CONTRA Coronal and Sagittal reconstruction series were provided. One or more dose reduction techniques were used (e.g., Automated exposure control, adjustment of the mA and/or kV according to patient size, use of iterative reconstruction technique). RADIATION DOSE SUMMARY: CTDlvol: 15.35 mGy DLP: 818.13 mGycm COMPARISON: Left knee radiographic report of April 09, 2025 at 12:46 p.m.. FINDINGS: Osseous: The bones appear slightly demineralized. There is mild femorotibial joint space loss slightly greater involving the medial compartment. There is no positive drawer sign. Small subchondral sclerotic changes are noted along the weight-bearing aspect of the medial tibial plateau and the posterior aspect of the medial femoral condyle which may represent old osteochondral injuries or areas of avascular necrosis. Patellar height is within normal range. Axial patellofemoral alignment is anatomic. There is no acute fracture at the knee. There is no evidence of an acute medial tibial plateau fracture, to correlate with radiographic findings. Proximal and distal tibiofibular congruency is maintained. The ankle mortise is preserved. There is tibiotalar joint space loss and mild degenerative change along the inferior margin of the medial ankle gutter. Mild subchondral cystic changes and sclerosis noted along the medial aspect of the visualized talar dome. Small knee joint effusion noted with trace amount of fluid decompressing into the suprapatellar bursa. There is no lipohemarthrosis seen. Soft tissues: No soft tissue hematoma or soft tissue emphysema seen. Soft tissue injury is not reliably assessed by this technique. If there is clinical suspicion for radiographically occult musculoskeletal injury or internal derangement, further evaluation by MRI is advised. CT/Extremity Lower without Contra IMPRESSION: No radiographic evidence of an acute osseous injury. - Findings and recommendations discussed above in detail. Reading Location: [facility] CC: WINDOWS APPLICATION ADMINISTRATOR-C Chantale Ramsey; Dr. Mirlande Last MD Pharmacy Helper: Signed Normal [facility] Knee 4 or More Viewson 04-09 Knee 4 or More Views [facility] [address] [place] [id number] Knee 4 or More Views MR#: [id number] Acct: [id number] Name: CHRISSY LAY Rep #: [id number] : 1965 F 59 From: Sam Nunez MD PCP: Chantale Ramsey, WINDOWS APPLICATION ADMINISTRATOR-C Status: REG ER Study: Knee 4 or More Views Date of Exam: 04/09/25 Exam# [id number] Ordering Dr: Mirlande aLst MD EXAM: XR Left Knee Complete, 4 or More Views CLINICAL INDICATION: PAIN, FALL TECHNIQUE: Four or more views of the left knee. COMPARISON: No relevant prior studies available. FINDINGS: BONES/JOINTS: Small curvilinear lucency with bony fragment of the medial tibial plateau, best visualized on the AP view. This could be a nondisplaced fracture. No dislocation. SOFT TISSUES: Soft tissue swelling. RAD/Knee 4 or More Views IMPRESSION: Small curvilinear lucency with bony fragment of the medial tibial plateau, best visualized on the AP view. This could be a nondisplaced fracture. Reading Location: [id number] CC: WINDOWS APPLICATION ADMINISTRATORRebecca Ramsey; Dr. Mirlande Last MD Pharmacy Helper: Signed Normal [facility] Lipaseon 04-09-2025 Lipase [Catalytic activity/Vol] 34 U/L Normal 13-75 [facility] Comment on above: Result Comment: Lo hansen note: LIPASE revised reference range effective 22. New Lipase methodology. Expected to produce lower values than the previous assay method. NEW Reference Range: 13 - 75 U/L Performed By: #### L 501.2450, L100.0100, L500.4050 ####[facility] [address] [place], [address] Urinalysis, Completeon 04-09 WBC >100 SEEN Normal 0-5 [facility] Comment on above: Order Comment: CLEAN CATCH Result Comment: Micr oscopic field is filled. Other elements may be obscured. Performed By: #### L 400.0001 #### [facility] [address] [place], [address] BACTERIA 0 SEEN Normal None Seen [facility] Comment on above: Order Comment: CLEAN CATCH Performed By: #### L 400.0001 #### [facility] [address] [place], [address] EPI,SQUAMOUS 0 SEEN Normal 5-10 [facility] Comment on above: Order Comment: CLEAN CATCH Performed By: #### L 400.0001 #### [facility] [address] [place], [address] Mucus Ql (Urine sed) 0 SEEN Normal [facility] Comment on above: Order Comment: CLEAN CATCH Performed By: #### L 400.0001 #### [facility] [address] [place], [address] RBC 0 SEEN Normal 0-5 [facility] Comment on above: Order Comment: CLEAN CATCH Performed By: #### L 400.0001 #### [facility] [address] [place], [address] XR RIBS 2 VIEWS LEFTon 04-09 XR RIBS 2 VIEWS LEFT ORIGINAL EXAMINATION: 4 XRAY VIEWS OF THE LEFT RIBS 04/08/2025 2:35 pm COMPARISON: August 12, 2024 HISTORY: ORDERING SYSTEM PROVIDED HISTORY: Reason for Exam: rib pain after fall FINDINGS: The left 4th lateral rib shows some angular deformity compatible with a nondisplaced fracture. No other potential rib fracture is evident. The adjacent pleura is unremarkable. IMPRESSION: Nondisplaced left 4th lateral rib fracture. Interpreted by: Narciso Spears MD Preliminary Report By: Narciso Spears MD Electronically signed By Narciso Spears MD Dictated Date: 04/09/2025 8:12:01 AM Prelim Date: 04/09/2025 8:12:47 AM Sign Date: 04/09/2025 8:12:47 AM Ordering Provider: REBEKAH Nelson [facility] XR RIBS 2 VIEWS RIGHTon XR RIBS 2 VIEWS RIGHT ORIGINAL EXAMINATION: 4 XRAY VIEWS OF THE RIGHT RIBS 04/08/2025 2:35 pm COMPARISON: None. HISTORY: ORDERING SYSTEM PROVIDED HISTORY: Reason for Exam: rib pain after fall FINDINGS: There is some elevation of the right humeral head indicating rotator cuff degeneration or tear. There is some calcific rotator cuff tendinopathy evident as well. Postoperative change cervical spine. Cholecystectomy clips noted. No rib fracture is evident. The adjacent pleura is unremarkable. IMPRESSION: No acute finding. Interpreted by: Narciso Spears MD Preliminary Report By: Narciso Spears MD Electronically signed By Narciso Spears MD Dictated Date: 04/09/2025 8:12:54 AM Prelim Date: 04/09/2025 8:13:40 AM Sign Date: 04/09/2025 8:13:40 AM Ordering Provider: REBEKAH Nelson [facility] .Auto Diffon 04-08-2025 Basophil, Absolute 0.0 10 3/mcL Normal 0.0-0.[address] [facility] Comment on above: Performed By: #### G FR, ANEU, CBC, FT4, VIDH, TSH, CMP, ADIFF ####[facility] [place], [place] [address] Basophils/100 WBC (Bld) 0.4 % Normal 0.0-2.5 [facility] Comment on above: Performed By: #### G FR, ANEU, CBC, FT4, VIDH, TSH, CMP, ADIFF ####[place] [address] [place], [place] [address] Eosinophil, Absolute 0.2 10 3/mcL Normal 0.0-0.7 [facility] Comment on above: Performed By: #### G FR, ANEU, CBC, FT4, VIDH, TSH, CMP, ADIFF ####[facility] [address] [place], [place] [address] Eosinophils/100 WBC (Bld) 1.7 % Normal 0.0-6.0 [facility] Comment on above: Performed By: #### G FR, ANEU, CBC, FT4, VIDH, TSH, CMP, ADIFF ####[facility] [address] [place], [place] [address] Lymphocyte, Absolute 3.0 10 3/mcL Normal 0.9-4.3 [facility] Comment on above: Performed By: #### G FR, ANEU, CBC, FT4, VIDH, TSH, CMP, ADIFF ####[facility] [address] [place], [place] [address] Lymphocytes/100 WBC (Bld) 24.5 % Normal 20.0-40.0 [facility] Comment on above: Performed By: #### G FR, ANEU, CBC, FT4, VIDH, TSH, CMP, ADIFF ####[facility] [address] [place], [place] [address] Monocyte, Absolute 0.9 10 3/mcL Normal 0.1-1.[address] [facility] Comment on above: Performed By: #### G FR, ANEU, CBC, FT4, VIDH, TSH, CMP, ADIFF ####[facility] [address] [place], [place] [address] Monocytes/100 WBC (Bld) 7.3 % Normal 2.0-13.0 [facility] Comment on above: Performed By: #### G FR, ANEU, CBC, FT4, VIDH, TSH, CMP, ADIFF ####[facility] [address] [place], [place] [address] Neutrophils/100 WBC (Bld) 66.1 % Normal 50.0-75.0 [facility] Comment on above: Performed By: #### G FR, ANEU, CBC, FT4, VIDH, TSH, CMP, ADIFF ####[facility] [address] [place], [place] [address] .GFRon 04-08-2025 Estimated Glomerular Filtration Rate 104 ml/min/1.73sqm Normal [facility] Comment on above: Result Comment: Stages of Chronic Kidney Disease (CKD) Stage Description eGFR(ml/min/1.73 sq.m.) CKD 1 Normal kidney function or >=90 normal kindney function with possible kidney damage (ex. Proteinuria) CKD 2 Kidney damage with mild loss 60-89 of kidney function CKD 3a Mild to moderate loss of kidney 45-59 function CKD 3b Moderate to severe loss of 30-44 of kindey function CKD 4 Severe loss of kidney function 15-29 CKD 5 Kidney failure <15 Note: (go live 2024) the eGFR calculation was updated to the 2020 CKD-EPI creatinine equation without a race factor to calculate the eGFR results. Performed By: #### G FR, ANEU, CBC, FT4, VIDH, TSH, CMP, ADIFF ####[place] [address] [place], [place] [address] .NEUABSon 04-08-2025 Neutrophil, Absolute 8.1 10 3/mcL Normal 2.3-8.1 [facility] Comment on above: Performed By: #### G FR, ANEU, CBC, FT4, VIDH, TSH, CMP, ADIFF ####[facility] [address] [place], [place] [address] CBCon 04-08-2025 Erythrocyte distribution width (RBC) [Ratio] 13.6 % Normal 11.5-15.5 [facility] Comment on above: Performed By: #### G FR, ANEU, CBC, FT4, VIDH, TSH, CMP, ADIFF ####[facility] [address] [place], [place] [address] Hematocrit (Bld) [Volume fraction] 47.1 % High 34.0-46.0 [facility] Comment on above: Performed By: #### G FR, ANEU, CBC, FT4, VIDH, TSH, CMP, ADIFF ####[place] [address] [place], [place] [address] Hgb 15.2 G/dL Normal 12.0-16.0 [facility] Comment on above: Performed By: #### G FR, ANEU, CBC, FT4, VIDH, TSH, CMP, ADIFF ####[place] [address] [place] [address] MCH (RBC) [Entitic mass] 30.2 pg Normal 27.0-33.0 [facility] Comment on above: Performed By: #### G FR, ANEU, CBC, FT4, VIDH, TSH, CMP, ADIFF ####[facility] [address] [place] [address] MCHC 32.2 G/dL Normal 32.0-36.0 [facility] Comment on above: Performed By: #### G FR, ANEU, CBC, FT4, VIDH, TSH, CMP, ADIFF ####[place] [id number] [place] [address] MCV (RBC) [Entitic vol] 93.6 fL Normal 80.0-99.0 [facility] Comment on above: Performed By: #### G FR, ANEU, CBC, FT4, VIDH, TSH, CMP, ADIFF ####[place] [address] [place], [place] [address] Platelet 357 10 3/mcL Normal 150-450 [facility] Comment on above: Performed By: #### G FR, ANEU, CBC, FT4, VIDH, TSH, CMP, ADIFF ####[facility] [address] [place] [address] Platelet mean volume (Bld) [Entitic vol] 7.4 fL Normal 6.6-10.5 [facility] Comment on above: Performed By: #### G FR, ANEU, CBC, FT4, VIDH, TSH, CMP, ADIFF ####[place] [address] [place] [address] RBC 5.03 10 6/mcL Normal 4.10-5.30 [facility] Comment on above: Performed By: #### G FR, ANEU, CBC, FT4, VIDH, TSH, CMP, ADIFF ####[facility] [address] [place], [place] [address] WBC 12.3 10 3/mcL High 4.5-10.8 [facility] Comment on above: Performed By: #### G FR, ANEU, CBC, FT4, VIDH, TSH, CMP, ADIFF ####[facility] [address] [place], [place] [address] CMPon 04-08-2025 Albumin Level 3.2 G/dL Low 3.5-5.0 [facility] Comment on above: Performed By: #### G FR, ANEU, CBC, FT4, VIDH, TSH, CMP, ADIFF ####Marybeth [address] [place], [place] [address] Albumin/Globulin [Mass ratio] 0.8 {ratio} Low 1.1-2.5 [facility] Comment on above: Performed By: #### G FR, ANEU, CBC, FT4, VIDH, TSH, CMP, ADIFF ####Marybeth [address] [place], [place] [address] ALP [Catalytic activity/Vol] 142 U/L High 40-135 [facility] Comment on above: Performed By: #### G FR, ANEU, CBC, FT4, VIDH, TSH, CMP, ADIFF ####Marybeth [address] [place], [place] [address] ALT [Catalytic activity/Vol] 48 U/L Normal 14-59 [facility] Comment on above: Performed By: #### G FR, ANEU, CBC, FT4, VIDH, TSH, CMP, ADIFF ####Marybeth [address] [place], [place] [address] AST [Catalytic activity/Vol] 38 U/L Normal 10-40 [facility] Comment on above: Performed By: #### G FR, ANEU, CBC, FT4, VIDH, TSH, CMP, ADIFF ####Marybeth [address] [address] Bili Total 0.5 mg/dL Normal 0.2-1.0 [facility] Comment on above: Result Comment: Use of this assay is not recommended for patients undergoing treatment with eltrombopag due to the potential for falsely elevated results. Performed By: #### G FR, ANEU, CBC, FT4, VIDH, TSH, CMP, ADIFF ####[place] [id number] [place] [address] BUN/Creatinine Ratio 11 ratio Normal 7-27 [facility] Comment on above: Performed By: #### G FR, ANEU, CBC, FT4, VIDH, TSH, CMP, ADIFF ####[place] [address] [place] [address] Calcium [Mass/Vol] 8.6 mg/dL Normal 8.4-10.2 [facility] Comment on above: Performed By: #### G FR, ANEU, CBC, FT4, VIDH, TSH, CMP, ADIFF ####[place] [id number] Chloride [Moles/Vol] 105 mmol/L Normal 98-107 [facility] Comment on above: Performed By: #### G FR, ANEU, CBC, FT4, VIDH, TSH, CMP, ADIFF ####[address] [address] CO2 [Moles/Vol] 28 mmol/L Normal 22-29 [facility] Comment on above: Performed By: #### G FR, ANEU, CBC, FT4, VIDH, TSH, CMP, ADIFF ####[place] [address] [place] [id number] Creatinine [Mass/Vol] 0.61 mg/dL Normal 0.51-0.95 [facility] Comment on above: Performed By: #### G FR, ANEU, CBC, FT4, VIDH, TSH, CMP, ADIFF ####[place] [address] [place] [id number] Electrolyte Balance 10.0 mEq/L Normal 4.0-15.0 [facility] Comment on above: Performed By: #### G FR, ANEU, CBC, FT4, VIDH, TSH, CMP, ADIFF ####[facility] [place], [place] [address] Globulin 4.0 G/dL Normal 2.7-4.4 [facility] Comment on above: Performed By: #### G FR, ANEU, CBC, FT4, VIDH, TSH, CMP, ADIFF ####[facility] [place], [place] [address] Glucose [Mass/Vol] 187 mg/dL High 70-105 [facility] Comment on above: Performed By: #### G FR, ANEU, CBC, FT4, VIDH, TSH, CMP, ADIFF ####[place] [address] [place], [place] [address] Potassium [Moles/Vol] 3.6 mmol/L Normal 3.5-5.1 [facility] Comment on above: Performed By: #### G FR, ANEU, CBC, FT4, VIDH, TSH, CMP, ADIFF ####[facility] [place], [place] [address] Sodium [Moles/Vol] 143 mmol/L Normal 136-145 [facility] Comment on above: Performed By: #### G FR, ANEU, CBC, FT4, VIDH, TSH, CMP, ADIFF ####[facility] [place], [place] [address] Total Protein 7.2 G/dL Normal 6.4-8.2 [facility] Comment on above: Performed By: #### G FR, ANEU, CBC, FT4, VIDH, TSH, CMP, ADIFF ####[facility] [place], [place] [address] Urea nitrogen [Mass/Vol] 7 mg/dL Normal 7-18 [facility] Comment on above: Performed By: #### G FR, ANEU, CBC, FT4, VIDH, TSH, CMP, ADIFF ####[facility] [place], [place] [address] ERTAPENEM:SUSC:PT:ISOLATE:OR DQN:MICon 04-08-2025 Ertapenem TR [Susc] >100,000 cfu/ml Escherichia coli [facility] Work Phone: Ertapenem TR [Susc]on 04-08 Escherichia coli Escherichia coli [facility] Work Phone: FT4on 04-08-2025 Free T4 [Mass/Vol] 0.62 ng/dL Low 0.76-1.46 [facility] Comment on above: Performed By: #### G FR, ANEU, CBC, FT4, VIDH, TSH, CMP, ADIFF ####[place] [id number] [place] [address] LABORATORYOrdered By: SYSTEM SYSTEM on 04-08-2025 Lipase [Catalytic activity/Vol] 47 U/L Normal 16 - 77 U/L AO ADM SS 25-hydroxyvitamin D3 [Mass/Vol] 71.6 ng/mL Invalid Interpretation Code AO ADM SS Comment on above: Interpretive Data: I nterpretive Values Based on Total 25(OH) Vitamin D: Deficient <20 ng/mL Insufficient 20 - <30 ng/mL Sufficient 30-100 ng/mL Albumin BCP dye [Mass/Vol] 3.2 G/dL Low 3.5 - 5.0 G/dL AO ADM SS Albumin/Globulin [Mass ratio] 0.8 {ratio} Low 1.1 - 2.5 ratio AO ADM SS ALP [Catalytic activity/Vol] 142 U/L High 40 - 135 U/L AO ADM SS ALT With P-5'-P [Catalytic activity/Vol] 48 U/L Normal 14 - 59 U/L AO ADM SS AST With P-5'-P [Catalytic activity/Vol] 38 U/L Normal 10 - 40 U/L AO ADM SS Basophils (Bld) [#/Vol] 0.0 103/mcL Normal 0.0 - 0.3 10^3/mcL AO Workflow SS Basophils/100 WBC (Bld) 0.4 % Normal 0.0 - 2.5 % AO Workflow SS Bilirubin [Mass/Vol] 0.5 mg/dL Normal 0.2 - 1.0 mg/dL AO ADM SS Comment on above: Interpretive Data: U se of this assay is not recommended for patients undergoing treatment with eltrombopag due to the potential for falsely elevated results. Calcium [Mass/Vol] 8.6 mg/dL Normal 8.4 - 10. 2 mg/dL AO ADM SS Chloride [Moles/Vol] 105 mmol/L Normal 98 - 107 mmol/L AO ADM SS CO2 [Moles/Vol] 28 mmol/L Normal 22 - 29 mmol/L AO ADM SS Creatinine [Mass/Vol] 0.61 mg/dL Normal 0.51 - 0.95 mg/dL AO ADM SS Electrolyte Balance 10.0 mEq/L Normal 4.0 - 15 .0 mEq/L AO ADM SS Eosinophil, Absolute 0.2 103/mcL Normal 0.0 - 0.7 10^3/mcL AO Workflow SS Eosinophils/100 WBC (Bld) 1.7 % Normal 0.0 - 6.0 % AO Workflow SS Erythrocyte distribution width (RBC) [Ratio] 13.6 % Normal 11.5 - 15.5 % AO Workflow SS Estimated Glomerular Filtration Rate 104 ml/min/1.73sqm Invalid Interpretation Code AO Chemistry S Comment on above: Interpretive Data: Stages of Chronic Kidney Disease (CKD) Stage Description eGFR(ml/min/1.73 sq.m.) CKD 1 Normal kidney function or >=90 normal kindney function with possible kidney damage (ex. Proteinuria) CKD 2 Kidney damage with mild loss 60-89 of kidney function CKD 3a Mild to moderate loss of kidney 45-59 function CKD 3b Moderate to severe loss of 30-44 of kindey function CKD 4 Severe loss of kidney function 15-29 CKD 5 Kidney failure <15 Note: (go live 2024) the eGFR calculation was updated to the 2020 CKD-EPI creatinine equation without a race factor to calculate the eGFR results. Free T4 [Mass/Vol] 0.62 ng/dL Low 0.76 - 1. 46 ng/dL AO ADM SS Globulin 4.0 G/dL Normal 2.7 - 4.4 G/dL AO ADM SS Glucose [Mass/Vol] 187 mg/dL High 70 - 105 mg/dL AO ADM SS Hematocrit (Bld) [Volume fraction] 47.1 % High 34.0 - 46.0 % AO Workflow SS Hemoglobin (Bld) [Mass/Vol] 15.2 G/dL Normal 12.0 - 16.0 G/dL AO Workflow SS Lymphocytes (Bld) [#/Vol] 3.0 103/mcL Normal 0.9 - 4.3 10^3/mcL AO Workflow SS Lymphocytes/100 WBC (Bld) 24.5 % Normal 20.0 - 40.0 % AO Workflow SS MCH (RBC) [Entitic mass] 30.2 pg Normal 27.0 - 33.0 pg AO Workflow SS MCHC 32.2 G/dL Normal 32.0 - 36.0 G/dL AO Workflow SS MCV (RBC) [Entitic vol] 93.6 fL Normal 80.0 - 99.0 fL AO Workflow SS Monocytes (Bld) [#/Vol] 0.9 103/mcL Normal 0.1 - 1.4 10^3/mcL AO Workflow SS Monocytes/100 WBC (Bld) 7.3 % Normal 2.0 - 13.0 % AO Workflow SS Neutrophils (Bld) [#/Vol] 8.1 103/mcL Normal 2.3 - 8.1 10^3/mcL AO Workflow SS Neutrophils/100 WBC (Bld) 66.1 % Normal 50.0 - 75.0 % AO Workflow SS Platelet mean volume (Bld) [Entitic vol] 7.4 fL Normal 6.6 - 10.5 fL AO Workflow SS Platelets (Bld) [#/Vol] 357 103/mcL Normal 150 - 450 10^3/mcL AO Workflow SS Potassium [Moles/Vol] 3.6 mmol/L Normal 3.5 - 5.1 mmol/L AO ADM SS Protein [Mass/Vol] 7.2 G/dL Normal 6.4 - 8.2 G/dL AO ADM SS RBC (Bld) [#/Vol] 5.03 106/mcL Normal 4.10 - 5.3 0 10^6/mcL AO Workflow SS Sodium [Moles/Vol] 143 mmol/L Normal 136 - 145 mmol/L AO ADM SS TSH Qn 2.64 m[IU]/L Normal 0.36 - 3.74 mcIU/mL AO ADM SS Urea nitrogen [Mass/Vol] 7 mg/dL Normal 7 - 18 mg/dL AO ADM SS Urea nitrogen/Creatinine [Mass ratio] 11 ratio Normal 7 - 27 ratio AO ADM SS WBC (Bld) [#/Vol] 12.3 103/mcL High 4.5 - 10.8 10^3/mcL AO Workflow SS LIPon 04-08-2025 Lipase Level 47 U/L Normal 16-77 [facility] Comment on above: Performed By: #### L IP ####[address] [place], [place] [address] TSHon 04-08-2025 TSH Qn 2.64 m[IU]/L Normal 0.36-3.74 [facility] Comment on above: Performed By: #### G FR, ANEU, CBC, FT4, VIDH, TSH, CMP, ADIFF ####Marybeth [address] [place], [place] [address] VIDHon 04-08-2025 Vit. D 25-Hydroxy 71.6 ng/mL Normal [facility] Comment on above: Result Comment: Inte rpretive Values Based on Total 25([place]) Vitamin D: Deficient <20 ng/mL Insufficient 20 - <30 ng/mL Sufficient 30-100 ng/mL Performed By: #### G FR, ANEU, CBC, FT4, VIDH, TSH, CMP, ADIFF ####Marybeth [address] [place], [place] [address] Echo Complete W/ Contraston 01-31-2025 Echo Complete W/ Contrast [facility] [address] [place] [address] Echo Complete W/ Contrast 01/31/25 1004 MR#: [id number] Acct: [id number] Name: CHRISSY LAY Rep #: [id number] : 1965 59 From: Simon Kelley MD Attending Dr: Ame Eastman NP-C Status: ARTURO FOLEY Ordering Dr: Ame Eastman NP WINDOWS APPLICATION ADMINISTRATOR-C Date: 01/31/25 Location: [facility] Sex: F C Admitted: Reason For Study [...] Dictated: 01/31/25 1004 Date Transcribed: 02/01/25 1351 Pharmacy Helper: Signed Normal [facility] Endocrinology Visit Reporton 01-17-2025 Endocrinology Visit Report [facility] [address] [place] [address]. [address] [place] [address] OFFICE VISIT Date of Service: 01/17/25 MR#: [id number] Acct: [id number] Name: CHRISSY LYA Rep #: [id number] : 1965 Provider: NADIA cutler Age/Sex: 59/F [place] [facility] [facility] [place] Status: Signed Intake Vital [...] 3 M FU Chief Complaint: f/u daibetes Silver Steward Required: No Accompanied by: Self Is patient [...] (From Augmentin) Allergy (Verified 01/17/25 10:38) Unknown Qosvymy-LMZ-DzC Reductase Inhibitor (Cjocakk-Tud-Obr Reductase Inhibitor) Allergy (Verified 01/17/25 10:38) Unknown [...] tablet 25 mg PO DAILY PRN anxiety 02/28/2 4 01/17/25 History colchicine 0.6 mg capsule [...] 01/17/25 Hi (more content not included)... Normal [facility] Basic Metabolic Profile (BMP )on 01-07-2025 BUN/CRE 11.7 RATIO Normal - [facility] Comment on above: Performed By: #### L 502.0250, L500.4100, L503.6620, L506.1000 #### [facility] [address] [place], [place], [id number] Calcium [Mass/Vol] 9.3 mg/dL Normal 7.6-11.0 [facility] Comment on above: Performed By: #### L 502.0250, L500.4100, L503.6620, L506.1000 #### [facility] [address] [place], [address] Chloride [Moles/Vol] 99 mmol/L Normal 98-108 [facility] Comment on above: Performed By: #### L 502.0250, L500.4100, L503.6620, L506.1000 #### [facility] [address] [place], [address] CO2 [Moles/Vol] 21.1 mmol/L Normal 21.0-32.0 [facility] Comment on above: Performed By: #### L 502.0250, L500.4100, L503.6620, L506.1000 #### [facility] [address] [place], [address] Creatinine [Mass/Vol] 0.74 mg/dL Normal 0.70-1.20 [facility] Comment on above: Performed By: #### L 502.0250, L500.4100, L503.6620, L506.1000 #### [facility] [address] [place], [address] GAP 15 Normal 5-15 [facility] Comment on above: Performed By: #### L 502.0250, L500.4100, L503.6620, L506.1000 #### [facility] [address] [place], [address] GFR/1.73 sq M.predicted among non-blacks MDRD (S/P/Bld) [Vol rate/Area] 93 mL/min/{1.73_m2} Normal >60 [facility] Comment on above: Result Comment: mL/m in/1.73m2 CKD-EPI Creatinine Equation (2020) Performed By: #### L 502.0250, L500.4100, L503.6620, L506.1000 #### [facility] [address] [place], [address] Glucose [Mass/Vol] 284 mg/dL High 70-99 [facility] Comment on above: Performed By: #### L 502.0250, L500.4100, L503.6620, L506.1000 #### [facility] [address] [place], [address] Potassium [Moles/Vol] 3.9 mmol/L Normal 3.3-5.1 [facility] Comment on above: Result Comment: Hemo lysis present, Results??could be affected. ?? Performed By: #### L 502.0250, L500.4100, L503.6620, L506.1000 #### [facility] [address] [place], [address] Sodium [Moles/Vol] 136 mmol/L Normal 133-145 [facility] Comment on above: Performed By: #### L 502.0250, L500.4100, L503.6620, L506.1000 #### [facility] [address] [place], [address] Urea nitrogen [Mass/Vol] 9 mg/dL Normal 4-19 [facility] Comment on above: Performed By: #### L 502.0250, L500.4100, L503.6620, L506.1000 #### [facility] [address] [place], [address] CBC W/Diff, Automatedon 06-0 6-2024 Absolute Lymph 3.11 X10 3/uL Normal 0.83-4.51 [facility] Comment on above: Performed By: #### L 502.0250, L500.4100, L503.6620, L506.1000 #### [facility] [address] [place], [address] Absolute Neut 4.8 X10 3/uL Normal 2.0-7.7 [facility] Comment on above: Performed By: #### L 502.0250, L500.4100, L503.6620, L506.1000 #### [facility] [address] [place], [address] Basophils/100 WBC (Bld) 0.7 % Normal 0-1 [facility] Comment on above: Performed By: #### L 502.0250, L500.4100, L503.6620, L506.1000 #### [facility] [address] [place], [address] Eosinophils/100 WBC (Bld) 2.2 % Normal 0-5 [facility] Comment on above: Performed By: #### L 502.0250, L500.4100, L503.6620, L506.1000 #### [facility] [address] [place], [address] Erythrocyte distribution width (RBC) [Ratio] 13.5 % Normal 11.6-14.6 [facility] Comment on above: Performed By: #### L 502.0250, L500.4100, L503.6620, L506.1000 #### [facility] [address] [place], [address] Hematocrit (Bld) [Volume fraction] 49.2 % High 37-47 [facility] Comment on above: Performed By: #### L 502.0250, L500.4100, L503.6620, L506.1000 #### [facility] [address] [place], [address] Hemoglobin (Bld) [Mass/Vol] 16.5 g/dL High 12.0-15.0 [facility] Comment on above: Performed By: #### L 502.0250, L500.4100, L503.6620, L506.1000 #### [facility] [address] [place], [address] IG% 0.200 Normal 0.0-0.9 [facility] Comment on above: Result Comment: IG% - Immature Granulocytes (promyelocytes, myelocytes and metamyelocytes) > 1% indicates that a LEFT SHIFT is Present. Performed By: #### L 502.0250, L500.4100, L503.6620, L506.1000 #### [facility] [address] [place], [address] Lymphocytes/100 WBC (Bld) 35.3 % Normal 19-41 [facility] Comment on above: Performed By: #### L 502.0250, L500.4100, L503.6620, L506.1000 #### [facility] [address] [place], [address] MCH (RBC) [Entitic mass] 30.2 pg Normal 27.0-32.0 [facility] Comment on above: Performed By: #### L 502.0250, L500.4100, L503.6620, L506.1000 #### [facility] [address] [place], [address] MCHC (RBC) [Mass/Vol] 33.5 g/dL Normal 32-36 [facility] Comment on above: Performed By: #### L 502.0250, L500.4100, L503.6620, L506.1000 #### [facility] [address] [place], [address] MCV (RBC) [Entitic vol] 89.9 fL Normal 81-99 [facility] Comment on above: Performed By: #### L 502.0250, L500.4100, L503.6620, L506.1000 #### [facility] [address] [place], [address] Monocytes/100 WBC (Bld) 6.7 % Normal 0-10 [facility] Comment on above: Performed By: #### L 502.0250, L500.4100, L503.6620, L506.1000 #### [facility] [address] [place], [address] Neutrophils/100 WBC (Bld) 54.9 % Normal 47-70 [facility] Comment on above: Performed By: #### L 502.0250, L500.4100, L503.6620, L506.1000 #### [facility] [address] [place], [address] Nucleated RBC (Bld) [#/Vol] 0 10*3/uL Normal 0-5 [facility] Comment on above: Performed By: #### L 502.0250, L500.4100, L503.6620, L506.1000 #### [facility] [address] [place], [address] Platelet mean volume (Bld) [Entitic vol] 8.9 fL Normal 6.2-12.0 [facility] Comment on above: Performed By: #### L 502.0250, L500.4100, L503.6620, L506.1000 #### [facility] [address] [place], [address] Platelets (Bld) [#/Vol] 345 10*3/uL Normal 150-450 [facility] Comment on above: Performed By: #### L 502.0250, L500.4100, L503.6620, L506.1000 #### [facility] [address] [place], [address] RBC (Bld) [#/Vol] 5.47 10*6/uL High 4.2-5.4 [facility] Comment on above: Performed By: #### L 502.0250, L500.4100, L503.6620, L506.1000 #### [facility] [address] [place], [address] RDW SD 44.9 fl High 35.1-43.9 [facility] Comment on above: Performed By: #### L 502.0250, L500.4100, L503.6620, L506.1000 #### [facility] [address] [place], [address] WBC (Bld) [#/Vol] 8.8 10*3/uL Normal 4.4-11.0 [facility] Comment on above: Performed By: #### L 502.0250, L500.4100, L503.6620, L506.1000 #### [facility] [address] [place], [address] Cardiology Visit Reporton Cardiology Visit Report [facility] [address] [place], [place] [address] OFFICE VISIT Date of Service: 01/07/25 MR#: [id number] Acct: [id number] Name: LEEANNACHRISSY HYMAN Louie Rep #: [id number] : 1965 Provider: NADIA issa Age/Sex: 59/F [place] [facility] [facility] [place] Status: Signed HPI HPI History of [...] 96 Intake Visit Reasons: 1 Y FU Silver Steward Required: No Is patient in pain?: Yes [...] (From Augmentin) Allergy (Verified 01/07/25 10:16) Unknown Atiabyb-XBO-WcQ Reductase Inhibitor (Auhvbnv-Jhy-Lec Reductase Inhibitor) Allergy (Verified 01/07/25 10:16) Unknown [...] mg) P (more content not included)... Normal [facility] L503.7505on 01-07-2025 proBNP < 36 Normal <=900 [facility] Comment on above: Result Comment: Hear t Failure Unlikely: < 300 pg/mL Heart Failure Likely < 50 Years: > 450 pg/mL 50-75 Years: > 900 pg/mL >75 Years: > 1800 pg/mL Performed By: #### L 502.0250, L500.4100, L503.6620, L506.1000 #### [facility] [address] [place], [place], [id number] Thyroid Stim Hormone (TSH)on 01-07-2025 TSH 2.180 uIU/mL Normal 0.300-4.200 [facility] Comment on above: Performed By: #### L 502.0250, L500.4100, L503.6620, L506.1000 #### [facility] [address] [place], [place], [id number] XR SHOULDER MINIMUM 2 VIEWS LEFTon 01-07-2025 [...] 01/07/2025 4:06:46 PM Ordering Provider: JEROME REFERRING [facility] MAIN XR SPINE CERVICAL W/ OBLIQUE [...] 4:03:16 PM Ordering Provider: PHY REFERRING Normal [facility] CBC W/Diff, Automatedon 05-2 Absolute Lymph 2.10 X10 3/uL Normal 0.83-4.51 [facility] Comment on above: Performed By: #### L 100.0100, L501.6710, L101.9900, L500.4050 ####[facility] [address] [place], [address] Absolute Neut 5.1 X10 3/uL Normal 2.0-7.7 [facility] Comment on above: Performed By: #### L 100.0100, L501.6710, L101.9900, L500.4050 ####[facility] [address] [place], [address] Basophils/100 WBC (Bld) 0.9 % Normal 0-1 [facility] Comment on above: Performed By: #### L 100.0100, L501.6710, L101.9900, L500.4050 ####[facility] [address] [place], [address] Eosinophils/100 WBC (Bld) 1.6 % Normal 0-5 [facility] Comment on above: Performed By: #### L 100.0100, L501.6710, L101.9900, L500.4050 ####[facility] [address] [place], [address] Erythrocyte distribution width (RBC) [Ratio] 13.1 % Normal 11.6-14.6 [facility] Comment on above: Performed By: #### L 100.0100, L501.6710, L101.9900, L500.4050 ####[facility] [address] [place], [address] Hematocrit (Bld) [Volume fraction] 48.1 % High 37-47 [facility] Comment on above: Performed By: #### L 100.0100, L501.6710, L101.9900, L500.4050 ####[facility] [address] [place], [address] Hemoglobin (Bld) [Mass/Vol] 16.1 g/dL High 12.0-15.0 [facility] Comment on above: Performed By: #### L 100.0100, L501.6710, L101.9900, L500.4050 ####[facility] [address] [place], [address] IG% 0.200 Normal 0.0-0.9 [facility] Comment on above: Result Comment: IG% - Immature Granulocytes (promyelocytes, myelocytes and metamyelocytes) > 1% indicates that a LEFT SHIFT is Present. Performed By: #### L 100.0100, L501.6710, L101.9900, L500.4050 ####[facility] [address] [place], [address] Lymphocytes/100 WBC (Bld) 25.8 % Normal 19-41 [facility] Comment on above: Performed By: #### L 100.0100, L501.6710, L101.9900, L500.4050 ####[facility] [address] [place], [address] MCH (RBC) [Entitic mass] 30.1 pg Normal 27.0-32.0 [facility] Comment on above: Performed By: #### L 100.0100, L501.6710, L101.9900, L500.4050 ####[facility] [address] [place], [address] MCHC (RBC) [Mass/Vol] 33.5 g/dL Normal 32-36 [facility] Comment on above: Performed By: #### L 100.0100, L501.6710, L101.9900, L500.4050 ####[facility] [address] [place], [address] MCV (RBC) [Entitic vol] 89.9 fL Normal 81-99 [facility] Comment on above: Performed By: #### L 100.0100, L501.6710, L101.9900, L500.4050 ####[facility] [address] [place], [address] Monocytes/100 WBC (Bld) 8.2 % Normal 0-10 [facility] Comment on above: Performed By: #### L 100.0100, L501.6710, L101.9900, L500.4050 ####[facility] [address] [place], [address] Neutrophils/100 WBC (Bld) 63.3 % Normal 47-70 [facility] Comment on above: Performed By: #### L 100.0100, L501.6710, L101.9900, L500.4050 ####[facility] [address] [place], [address] Nucleated RBC (Bld) [#/Vol] 0 10*3/uL Normal 0-5 [facility] Comment on above: Performed By: #### L 100.0100, L501.6710, L101.9900, L500.4050 ####[facility] [address] [place], [address] Platelet mean volume (Bld) [Entitic vol] 9.0 fL Normal 6.2-12.0 [facility] Comment on above: Performed By: #### L 100.0100, L501.6710, L101.9900, L500.4050 ####[facility] [address] [place], [address] Platelets (Bld) [#/Vol] 347 10*3/uL Normal 150-450 [facility] Comment on above: Performed By: #### L 100.0100, L501.6710, L101.9900, L500.4050 ####[facility] [id number] [place], [address] RBC (Bld) [#/Vol] 5.35 10*6/uL Normal 4.2-5.4 [facility] Comment on above: Performed By: #### L 100.0100, L501.6710, L101.9900, L500.4050 ####[facility] [address] [place], [address] RDW SD 42.2 fl Normal 35.1-43.9 [facility] Comment on above: Performed By: #### L 100.0100, L501.6710, L101.9900, L500.4050 ####[facility] [id number] [place], [address] WBC (Bld) [#/Vol] 8.1 10*3/uL Normal 4.4-11.0 [facility] Comment on above: Performed By: #### L 100.0100, L501.6710, L101.9900, L500.4050 ####[facility] [address] [place], [address] CRPon 12-23-2024 C-REACTIVE PROT 13.60 mg/L High 0.0-3.0 [facility] Comment on above: Performed By: #### L 100.0100, L501.6710, L101.9900, L500.4050 ####[facility] [address], [address] Comprehensive Metabolic Prof deshon 12-23-2024 Albumin [Mass/Vol] 4.1 g/dL Normal 3.5-5.0 [facility] Comment on above: Performed By: #### L 100.0100, L501.6710, L101.9900, L500.4050 ####[facility] [address] [place], [address] Albumin/Globulin [Mass ratio] 1.3 {ratio} Normal 0.9-2.4 [facility] Comment on above: Performed By: #### L 100.0100, L501.6710, L101.9900, L500.4050 ####[facility] [address] [place], [address] ALK PHOS 154 U/L High 35-104 [facility] Comment on above: Performed By: #### L 100.0100, L501.6710, L101.9900, L500.4050 ####[facility] [address] [place], [address] ALT [Catalytic activity/Vol] 95 U/L High <=34 [facility] Comment on above: Performed By: #### L 100.0100, L501.6710, L101.9900, L500.4050 ####[facility] [address] [place], [address] AST [Catalytic activity/Vol] 121 U/L High <=31 [facility] Comment on above: Performed By: #### L 100.0100, L501.6710, L101.9900, L500.4050 ####[facility] [address] [place], [address] Bilirubin [Mass/Vol] 0.37 mg/dL Normal 0.00-1.30 [facility] Comment on above: Performed By: #### L 100.0100, L501.6710, L101.9900, L500.4050 ####[facility] [address] [place], [address] BUN/CRE 11.5 RATIO Normal 10-20 [facility] Comment on above: Performed By: #### L 100.0100, L501.6710, L101.9900, L500.4050 ####[facility] [address] [place], [address] Calcium [Mass/Vol] 8.6 mg/dL Normal 7.6-11.0 [facility] Comment on above: Performed By: #### L 100.0100, L501.6710, L101.9900, L500.4050 ####[facility] [address] [place], [address] Chloride [Moles/Vol] 101 mmol/L Normal 98-108 [facility] Comment on above: Performed By: #### L 100.0100, L501.6710, L101.9900, L500.4050 ####[facility] [address] [place], [address] CO2 [Moles/Vol] 16.7 mmol/L Low 21.0-32.0 [facility] Comment on above: Performed By: #### L 100.0100, L501.6710, L101.9900, L500.4050 ####[facility] [address] [place], [address] Creatinine [Mass/Vol] 0.68 mg/dL Low 0.70-1.20 [facility] Comment on above: Performed By: #### L 100.0100, L501.6710, L101.9900, L500.4050 ####[facility] [address] [place], [address] ECRCL 107.84 ml/min Normal 50-250 [facility] Comment on above: Performed By: #### L 100.0100, L501.6710, L101.9900, L500.4050 ####[facility] [address] [place], [address] GAP 18 High 5-15 [facility] Comment on above: Performed By: #### L 100.0100, L501.6710, L101.9900, L500.4050 ####[facility] [address] [place], [address] GFR/1.73 sq M.predicted among non-blacks MDRD (S/P/Bld) [Vol rate/Area] 101 mL/min/{1.73_m2} Normal >60 [facility] Comment on above: Result Comment: mL/m in/1.73m2 CKD-EPI Creatinine Equation (2020) Performed By: #### L 100.0100, L501.6710, L101.9900, L500.4050 ####[facility] [address] [place], [address] Globulin (S) [Mass/Vol] 3.2 g/dL Normal 2.2-4.2 [facility] Comment on above: Performed By: #### L 100.0100, L501.6710, L101.9900, L500.4050 ####[facility] [address] [place], [address] Glucose [Mass/Vol] 299 mg/dL High 70-99 [facility] Comment on above: Performed By: #### L 100.0100, L501.6710, L101.9900, L500.4050 ####[facility] [address] [place], [address] Potassium [Moles/Vol] 3.1 mmol/L Low 3.3-5.1 [facility] Comment on above: Performed By: #### L 100.0100, L501.6710, L101.9900, L500.4050 ####[facility] [address] [place], [address] Sodium [Moles/Vol] 135 mmol/L Normal 133-145 [facility] Comment on above: Performed By: #### L 100.0100, L501.6710, L101.9900, L500.4050 ####[facility] [address] [place], [address] T PROT 7.3 g/dL Normal 5.9-8.4 [facility] Comment on above: Performed By: #### L 100.0100, L501.6710, L101.9900, L500.4050 ####[facility] [address] [place], [address] Urea nitrogen [Mass/Vol] 8 mg/dL Normal 4-19 [facility] Comment on above: Performed By: #### L 100.0100, L501.6710, L101.9900, L500.4050 ####[facility] [address] [place], [address] Emergency Department Summary on 12-23-2024 Emergency Department Summary [facility] Medical Records Department [address] [place] [address] Emergency Department Summary 12/23/24 MR#: [id number] Acct: [id number] Name: CHRISSY LAY Rep #: [id number] : 1965 59 From: Gorge Hoffman DO [...] fevers. She just does not feel well. [facility] Medical History Osteoarthritis of left knee Left [...] PRN abdomin (more content not included)... Normal [facility] Erythrocyte Sed Rateon 12-23 SED RATE 29 mm/hr Normal 0-30 [facility] Comment on above: Performed By: #### L 100.0100, L501.6710, L101.9900, L500.4050 ####[facility] [address] [place], [address] M100.678on 12-23-2024 M100.678 Normal Reference Ran ge = Negative FLUABV+SARS-CoV-2+RSV Pnl Resp JALIL+probe GeneXpert Instrument, PCR method SARS-CoV-2 (COVID 19) Negative INFLUENZA A Negative INFLUENZA B Negative RSV PCR Negative Normal [facility] Comment on above: Performed By: #### M 100.678 ####[facility] [address] [place], [address] Urinalysis, Completeon 12-23 BACTERIA 1+ /hpf Normal None Seen [facility] Comment on above: Order Comment: CLEAN CATCH Performed By: #### L 502.0250, L500.4100, L503.6620, L506.1000 #### [facility] [address] [place], [address] EPI,SQUAMOUS 0-5 SEEN Normal 5-10 [facility] Comment on above: Order Comment: CLEAN CATCH Performed By: #### L 502.0250, L500.4100, L503.6620, L506.1000 #### [facility] [address] [place], [address] WBC 0-5 SEEN Normal 0-5 [facility] Comment on above: Order Comment: CLEAN CATCH Performed By: #### L 502.0250, L500.4100, L503.6620, L506.1000 #### [facility] [address] [place], [address] Mucus Ql (Urine sed) 0 SEEN Normal [facility] Comment on above: Order Comment: CLEAN CATCH Performed By: #### L 502.0250, L500.4100, L503.6620, L506.1000 #### [facility] [address] [place], [address] RBC 0 SEEN Normal 0-5 [facility] Comment on above: Order Comment: CLEAN CATCH Performed By: #### L 502.0250, L500.4100, L503.6620, L506.1000 #### [facility] [address] [place], [address] OT Functional Capacity Evalo n 12-21-2024 OT Functional Capacity Eval [facility] 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 Normal [facility] CBC-Complete Blood Cnt No Di ffon 12-01-2024 Erythrocyte distribution width (RBC) [Ratio] 12.4 % Normal 11.6-14.6 [facility] Comment on above: Performed By: #### L 502.0250, L500.4100, L503.6620, L506.1000 #### [facility] [place], [address] Hematocrit (Bld) [Volume fraction] 45.2 % Normal 37-47 [facility] Comment on above: Performed By: #### L 502.0250, L500.4100, L503.6620, L506.1000 #### [facility] [address] [place], [address] Hemoglobin (Bld) [Mass/Vol] 15.3 g/dL High 12.0-15.0 [facility] Comment on above: Performed By: #### L 502.0250, L500.4100, L503.6620, L506.1000 #### [facility] [address] [place], [address] MCH (RBC) [Entitic mass] 30.2 pg Normal 27.0-32.0 [facility] Comment on above: Performed By: #### L 502.0250, L500.4100, L503.6620, L506.1000 #### [facility] [address] [place], [address] MCHC (RBC) [Mass/Vol] 33.8 g/dL Normal 32-36 [facility] Comment on above: Performed By: #### L 502.0250, L500.4100, L503.6620, L506.1000 #### [facility] [address] [place], [address] MCV (RBC) [Entitic vol] 89.3 fL Normal 81-99 [facility] Comment on above: Performed By: #### L 502.0250, L500.4100, L503.6620, L506.1000 #### [facility] [address] [place], [address] Platelet mean volume (Bld) [Entitic vol] 9.3 fL Normal 6.2-12.0 [facility] Comment on above: Performed By: #### L 502.0250, L500.4100, L503.6620, L506.1000 #### [facility] [address] [place], [address] Platelets (Bld) [#/Vol] 276 10*3/uL Normal 150-450 [facility] Comment on above: Performed By: #### L 502.0250, L500.4100, L503.6620, L506.1000 #### [facility] [address] [place], [address] RBC (Bld) [#/Vol] 5.06 10*6/uL Normal 4.2-5.4 [facility] Comment on above: Performed By: #### L 502.0250, L500.4100, L503.6620, L506.1000 #### [facility] [address] [place], [address] RDW SD 40.5 fl Normal 35.1-43.9 [facility] Comment on above: Performed By: #### L 502.0250, L500.4100, L503.6620, L506.1000 #### [facility] [address] [place], [address] WBC (Bld) [#/Vol] 8.9 10*3/uL Normal 4.4-11.0 [facility] Comment on above: Performed By: #### L 502.0250, L500.4100, L503.6620, L506.1000 #### [facility] [address] [place], [address] Comprehensive Metabolic Prof [facility] 12-01-2024 Albumin [Mass/Vol] 3.9 g/dL Normal 3.5-5.0 [facility] Comment on above: Performed By: #### L 502.0250, L500.4100, L503.6620, L506.1000 #### [facility] [address] [place], [address] Albumin/Globulin [Mass ratio] 1.5 {ratio} Normal 0.9-2.4 [facility] Comment on above: Performed By: #### L 502.0250, L500.4100, L503.6620, L506.1000 #### [facility] [address] [place], [address] ALK PHOS 132 U/L High 35-104 [facility] Comment on above: Performed By: #### L 502.0250, L500.4100, L503.6620, L506.1000 #### [facility] [address] [place], [address] ALT [Catalytic activity/Vol] 77 U/L High <=34 [facility] Comment on above: Performed By: #### L 502.0250, L500.4100, L503.6620, L506.1000 #### [facility] [address] [place], [address] AST [Catalytic activity/Vol] 85 U/L High <=31 [facility] Comment on above: Performed By: #### L 502.0250, L500.4100, L503.6620, L506.1000 #### [facility] [address] [place], [address] Bilirubin [Mass/Vol] 0.33 mg/dL Normal 0.00-1.30 [facility] Comment on above: Performed By: #### L 502.0250, L500.4100, L503.6620, L506.1000 #### [facility] [address] [place], [address] BUN/CRE 16.9 RATIO Normal 10-20 [facility] Comment on above: Performed By: #### L 502.0250, L500.4100, L503.6620, L506.1000 #### [facility] [address] [place], [address] Calcium [Mass/Vol] 9.2 mg/dL Normal 7.6-11.0 [facility] Comment on above: Performed By: #### L 502.0250, L500.4100, L503.6620, L506.1000 #### [facility] [address] [place], [address] Chloride [Moles/Vol] 103 mmol/L Normal 98-108 [facility] Comment on above: Performed By: #### L 502.0250, L500.4100, L503.6620, L506.1000 #### [facility] [address] [place], [address] CO2 [Moles/Vol] 21.9 mmol/L Normal 21.0-32.0 [facility] Comment on above: Performed By: #### L 502.0250, L500.4100, L503.6620, L506.1000 #### [facility] [address] [place], [address] Creatinine [Mass/Vol] 0.64 mg/dL Low 0.70-1.20 [facility] Comment on above: Performed By: #### L 502.0250, L500.4100, L503.6620, L506.1000 #### [facility] [address] [place], [address] GAP 13 Normal 5-15 [facility] Comment on above: Performed By: #### L 502.0250, L500.4100, L503.6620, L506.1000 #### [facility] [address] [place], [address] GFR/1.73 sq M.predicted among non-blacks MDRD (S/P/Bld) [Vol rate/Area] 102 mL/min/{1.73_m2} Normal >60 [facility] Comment on above: Result Comment: mL/m in/1.73m2 CKD-EPI Creatinine Equation (2020) Performed By: #### L 502.0250, L500.4100, L503.6620, L506.1000 #### [facility] [address] [place], [address] Globulin (S) [Mass/Vol] 2.7 g/dL Normal 2.2-4.2 [facility] Comment on above: Performed By: #### L 502.0250, L500.4100, L503.6620, L506.1000 #### [facility] [address] [place], [address] Glucose [Mass/Vol] 313 mg/dL High 70-99 [facility] Comment on above: Performed By: #### L 502.0250, L500.4100, L503.6620, L506.1000 #### [facility] [address] [place], [address] Potassium [Moles/Vol] 4.1 mmol/L Normal 3.3-5.1 [facility] Comment on above: Performed By: #### L 502.0250, L500.4100, L503.6620, L506.1000 #### [facility] [address] [place], [address] Sodium [Moles/Vol] 138 mmol/L Normal 133-145 [facility] Comment on above: Performed By: #### L 502.0250, L500.4100, L503.6620, L506.1000 #### [facility] [address] [place], [address] T PROT 6.6 g/dL Normal 5.9-8.4 [facility] Comment on above: Performed By: #### L 502.0250, L500.4100, L503.6620, L506.1000 #### [facility] [address] [place], [address] Urea nitrogen [Mass/Vol] 11 mg/dL Normal 4-19 [facility] Comment on above: Performed By: #### L 502.0250, L500.4100, L503.6620, L506.1000 #### [facility] [address] [place], [address] Lipid Profileon 12-01-2024 CHOL:HDL 4.90 Normal [facility] Comment on above: Performed By: #### L 502.0250, L500.4100, L503.6620, L506.1000 #### [facility] [address] [place], [address] Cholesterol [Mass/Vol] 223 mg/dL High <=200 [facility] Comment on above: Result Comment: Chol esterol level, Desirable <200 mg/dL Borderline high cholesterol 200-239 mg/dL High cholesterol >=240 mg/dL Recommendations of the NCEP Adult Treatment Panel for the following risk-cutoff thresholds for the [place] population. Performed By: #### L 502.0250, L500.4100, L503.6620, L506.1000 #### [facility] [address] [place], [address] Cholesterol in HDL [Mass/Vol] 46 mg/dL Normal [facility] Comment on above: Result Comment: Bárbara onal Cholesterol Education Program (NCEP) guidelines: <40 mg/dL: Low HDL-cholesterol (major risk factor for CHD) >= 60 mg/dL: High HDL-cholesterol (negative risk factor for CHD) HDL-cholesterol is affected by a number of factors, e.g. smoking, exercise, hormones, sex and age. Performed By: #### L 502.0250, L500.4100, L503.6620, L506.1000 #### [facility] [address] [place], [address] Cholesterol in LDL [Mass/Vol] 134 mg/dL Normal [facility] Comment on above: Result Comment: Bord exuzwz=905-407 mg/dL Higher Lied=988 mg/dL or greater Performed By: #### L 502.0250, L500.4100, L503.6620, L506.1000 #### [facility] [address] [place], [address] Cholesterol in VLDL [Mass/Vol] 44 mg/dL High 5-40 [facility] Comment on above: Performed By: #### L 502.0250, L500.4100, L503.6620, L506.1000 #### [facility] [address] [place], [address] Triglyceride [Mass/Vol] 220 mg/dL High [facility] Comment on above: Result Comment: The drugs N-Acetylcysteine and Metamizole may falsely depress this assay. Normal range: <150 mg/dL Borderline High: 150-199 mg/dL High: 200-499 mg/dL Very High: >500 mg/dL Performed By: #### L 502.0250, L500.4100, L503.6620, L506.1000 #### [facility] [address] [place], [address] T4 Free Directon 12-01-2024 T4 FREE DIRECT 0.80 ng/dL Normal 0.76-1.46 [facility] Comment on above: Performed By: #### L 502.0250, L500.4100, L503.6620, L506.1000 #### [facility] [address] [place], [address] Thyroid Stim Hormone (TSH)on 12-01-2024 TSH 1.950 uIU/mL Normal 0.300-4.200 [facility] Comment on above: Performed By: #### L 502.0250, L500.4100, L503.6620, L506.1000 #### [facility] [address] [place], [address] Vitamin D,25 Hydroxyon 12-01 Vitamin D 25-OH 42.9 ng/mL Normal 30-100 [facility] Comment on above: Result Comment: Maryam min D Status Deficiency: <20 ng/mL (50nmol/L) Insufficiency: 20-30 ng/mL (50-75 nmol/L) Sufficiency: 30-100 ng/mL (75-250 nmol/L) Toxicity: >100 ng/mL (>250 nmol/L) Performed By: #### L 502.0250, L500.4100, L503.6620, L506.1000 #### [facility] [address] [place], [address] Abdomen/Pelvis W IV Cont ONL Yon 11-07-2024 Abdomen/Pelvis W IV Cont ONLY [facility] Services [address] [place] [address] Abdomen/Pelvis W IV Cont ONLY MR#: [id number] Acct: [id number] Name: CHRISSY LAY Rep #: [id number] : 1965 F 59 From: Jackelyn Dhaliwal DO PCP: NADIA Mcrae Status: REG ER Study: Abdomen/Pelvis W IV Cont ONLY Date of Exam: Exam# [id number] Ordering Dr: Petty Quiroz PROCEDURE: ABDOMEN/PELVIS W [...] OR PELVIS ON CONTRAST-ENHANCED CT. Reading Location: [facility] CC: NADIA Ramsey; CHEPE [facility]: Signed Normal [facility] CBC W/Diff, Automatedon 04-0 -2024 Absolute Lymph 3.15 X10 3/uL Normal 0.83-4.51 [facility] Comment on above: Performed By: #### L 502.0250, L500.4100, L503.6620, L506.1000 #### [facility] [address] [place], [address] Absolute Neut 4.4 X10 3/uL Normal 2.0-7.7 [facility] Comment on above: Performed By: #### L 502.0250, L500.4100, L503.6620, L506.1000 #### [facility] [address] [place], [address] Basophils/100 WBC (Bld) 0.6 % Normal 0-1 [facility] Comment on above: Performed By: #### L 502.0250, L500.4100, L503.6620, L506.1000 #### [facility] [address] [place], [address] Eosinophils/100 WBC (Bld) 1.2 % Normal 0-5 [facility] Comment on above: Performed By: #### L 502.0250, L500.4100, L503.6620, L506.1000 #### [facility] [address] [place], [address] Erythrocyte distribution width (RBC) [Ratio] 13.3 % Normal 11.6-14.6 [facility] Comment on above: Performed By: #### L 502.0250, L500.4100, L503.6620, L506.1000 #### [facility] [address] [place], [address] Hematocrit (Bld) [Volume fraction] 50.8 % High 37-47 [facility] Comment on above: Performed By: #### L 502.0250, L500.4100, L503.6620, L506.1000 #### [facility] [address] [place], [address] Hemoglobin (Bld) [Mass/Vol] 16.8 g/dL High 12.0-15.0 [facility] Comment on above: Performed By: #### L 502.0250, L500.4100, L503.6620, L506.1000 #### [facility] [address] [place], [address] IG% 0.200 Normal 0.0-0.9 [facility] Comment on above: Result Comment: IG% - Immature Granulocytes (promyelocytes, myelocytes and metamyelocytes) > 1% indicates that a LEFT SHIFT is Present. Performed By: #### L 502.0250, L500.4100, L503.6620, L506.1000 #### [facility] [address] [place], [address] Lymphocytes/100 WBC (Bld) 37.2 % Normal 19-41 [facility] Comment on above: Performed By: #### L 502.0250, L500.4100, L503.6620, L506.1000 #### [facility] [address] [place], [address] MCH (RBC) [Entitic mass] 29.8 pg Normal 27.0-32.0 [facility] Comment on above: Performed By: #### L 502.0250, L500.4100, L503.6620, L506.1000 #### [facility] [address] [place], [address] MCHC (RBC) [Mass/Vol] 33.1 g/dL Normal 32-36 [facility] Comment on above: Performed By: #### L 502.0250, L500.4100, L503.6620, L506.1000 #### [facility] [address] [place], [address] MCV (RBC) [Entitic vol] 90.2 fL Normal 81-99 [facility] Comment on above: Performed By: #### L 502.0250, L500.4100, L503.6620, L506.1000 #### [facility] [address] [place], [address] Monocytes/100 WBC (Bld) 8.6 % Normal 0-10 [facility] Comment on above: Performed By: #### L 502.0250, L500.4100, L503.6620, L506.1000 #### [facility] [address] [place], [address] Neutrophils/100 WBC (Bld) 52.2 % Normal 47-70 [facility] Comment on above: Performed By: #### L 502.0250, L500.4100, L503.6620, L506.1000 #### [facility] [address] [place], [address] Nucleated RBC (Bld) [#/Vol] 0 10*3/uL Normal 0-5 [facility] Comment on above: Performed By: #### L 502.0250, L500.4100, L503.6620, L506.1000 #### [facility] [address] [place], [address] Platelet mean volume (Bld) [Entitic vol] 9.1 fL Normal 6.2-12.0 [facility] Comment on above: Performed By: #### L 502.0250, L500.4100, L503.6620, L506.1000 #### [facility] [address] [place], [address] Platelets (Bld) [#/Vol] 301 10*3/uL Normal 150-450 [facility] Comment on above: Performed By: #### L 502.0250, L500.4100, L503.6620, L506.1000 #### [facility] [address] [place], [address] RBC (Bld) [#/Vol] 5.63 10*6/uL High 4.2-5.4 [facility] Comment on above: Performed By: #### L 502.0250, L500.4100, L503.6620, L506.1000 #### [facility] [address] [place], [address] RDW SD 44.2 fl High 35.1-43.9 [facility] Comment on above: Performed By: #### L 502.0250, L500.4100, L503.6620, L506.1000 #### [facility] [address] [place], [address] WBC (Bld) [#/Vol] 8.5 10*3/uL Normal 4.4-11.0 [facility] Comment on above: Performed By: #### L 502.0250, L500.4100, L503.6620, L506.1000 #### [facility] [address] [place], [address] Comprehensive Metabolic Prof [facility] 11-07-2024 Albumin [Mass/Vol] 4.4 g/dL Normal 3.5-5.0 [facility] Comment on above: Performed By: #### L 502.0250, L500.4100, L503.6620, L506.1000 #### [facility] [address] [place], [address] Albumin/Globulin [Mass ratio] 1.4 {ratio} Normal 0.9-2.4 [facility] Comment on above: Performed By: #### L 502.0250, L500.4100, L503.6620, L506.1000 #### [facility] [address] [place], [address] ALK PHOS 186 U/L High 35-104 [facility] Comment on above: Performed By: #### L 502.0250, L500.4100, L503.6620, L506.1000 #### [facility] [address] [place], [address] ALT [Catalytic activity/Vol] 87 U/L High <=34 [facility] Comment on above: Performed By: #### L 502.0250, L500.4100, L503.6620, L506.1000 #### [facility] [address] [place], [address] AST [Catalytic activity/Vol] 67 U/L High <=31 [facility] Comment on above: Performed By: #### L 502.0250, L500.4100, L503.6620, L506.1000 #### [facility] [address] [place], [address] Bilirubin [Mass/Vol] 0.64 mg/dL Normal 0.00-1.30 [facility] Comment on above: Performed By: #### L 502.0250, L500.4100, L503.6620, L506.1000 #### [facility] [address] [place], [address] BUN/CRE 9.0 RATIO Low 10-20 [facility] Comment on above: Performed By: #### L 502.0250, L500.4100, L503.6620, L506.1000 #### [facility] [address] [place], [address] Calcium [Mass/Vol] 9.7 mg/dL Normal 7.6-11.0 [facility] Comment on above: Performed By: #### L 502.0250, L500.4100, L503.6620, L506.1000 #### [facility] [address] [place], [address] Chloride [Moles/Vol] 95 mmol/L Low 98-108 [facility] Comment on above: Performed By: #### L 502.0250, L500.4100, L503.6620, L506.1000 #### [facility] [address] [place], [address] CO2 [Moles/Vol] 19.1 mmol/L Low 21.0-32.0 [facility] Comment on above: Performed By: #### L 502.0250, L500.4100, L503.6620, L506.1000 #### [facility] [address] [place], [address] Creatinine [Mass/Vol] 0.95 mg/dL Normal 0.70-1.20 [facility] Comment on above: Performed By: #### L 502.0250, L500.4100, L503.6620, L506.1000 #### [facility] [address] [place], [address] ECRCL 77.21 ml/min Normal 50-250 [facility] Comment on above: Performed By: #### L 502.0250, L500.4100, L503.6620, L506.1000 #### [facility] [address] [place], [address] GAP 18 High 5-15 [facility] Comment on above: Performed By: #### L 502.0250, L500.4100, L503.6620, L506.1000 #### [facility] [address] [place], [address] GFR/1.73 sq M.predicted among non-blacks MDRD (S/P/Bld) [Vol rate/Area] 70 mL/min/{1.73_m2} Normal >60 [facility] Comment on above: Result Comment: mL/m in/1.73m2 CKD-EPI Creatinine Equation (2020) Performed By: #### L 502.0250, L500.4100, L503.6620, L506.1000 #### [facility] [address] [place], [address] Globulin (S) [Mass/Vol] 3.1 g/dL Normal 2.2-4.2 [facility] Comment on above: Performed By: #### L 502.0250, L500.4100, L503.6620, L506.1000 #### [facility] [address] [place], [address] Glucose [Mass/Vol] 393 mg/dL High 70-99 [facility] Comment on above: Performed By: #### L 502.0250, L500.4100, L503.6620, L506.1000 #### [facility] [address] [place], [address] Potassium [Moles/Vol] 3.4 mmol/L Normal 3.3-5.1 [facility] Comment on above: Performed By: #### L 502.0250, L500.4100, L503.6620, L506.1000 #### [facility] [address] [place], [address] Sodium [Moles/Vol] 132 mmol/L Low 133-145 [facility] Comment on above: Performed By: #### L 502.0250, L500.4100, L503.6620, L506.1000 #### [facility] [address] [place], [address] T PROT 7.6 g/dL Normal 5.9-8.4 [facility] Comment on above: Performed By: #### L 502.0250, L500.4100, L503.6620, L506.1000 #### [facility] [address] [place], [address] Urea nitrogen [Mass/Vol] 8 mg/dL Normal 4-19 [facility] Comment on above: Performed By: #### L 502.0250, L500.4100, L503.6620, L506.1000 #### [facility] [address] [place], [address] Emergency Department Summary on 11-07-2024 Emergency Department Summary [facility] Medical Records Department [address] [place] [address] Emergency Department Summary 11/07/24 MR#: [id number] Acct: [id number] Name: CHRISSY LAY Rep #: [id number] : 1965 59 From: [place] 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 [facility] Medical History Osteoarthritis of left knee Left [...] gauge x #100 ea 10/23/23 Unknown Rx 5/32 (BD Ultra-Fine Thais Pen [...] story (Rexulti) (more content not included)... Normal [facility] Lipaseon 11-07-2024 Lipase [Catalytic activity/Vol] 35 U/L Normal 13-75 [facility] Comment on above: Result Comment: Lo hansen note: LIPASE revised reference range effective 22. New Lipase methodology. Expected to produce lower values than the previous assay method. NEW Reference Range: 13 - 75 U/L Performed By: #### L 502.0250, L500.4100, L503.6620, L506.1000 #### [facility] [address] [place], [address] Stool Occult Blood iFOBon STOB Negative Normal [facility] Comment on above: Performed By: #### L 502.0250, L500.4100, L503.6620, L506.1000 #### [facility] [address] [place], [address] Urinalysis, Completeon 11-07 BACTERIA 1+ /hpf Normal None Seen [facility] Comment on above: Order Comment: CLEAN CATCH Performed By: #### L 400.0001 #### [facility] [address] [place], [address] CAST,HYALINE 0-5 SEEN Normal 0-5 [facility] Comment on above: Order Comment: CLEAN CATCH Performed By: #### L 400.0001 #### [facility] [address] [place], [address] EPI,SQUAMOUS 5-10 SEEN Normal 5-10 [facility] Comment on above: Order Comment: CLEAN CATCH Performed By: #### L 400.0001 #### [facility] [address] [place], [address] RBC 0-5 SEEN Normal 0-5 [facility] Comment on above: Order Comment: CLEAN CATCH Performed By: #### L 400.0001 #### [facility] [address] [place], [address] WBC 0-5 SEEN Normal 0-5 [facility] Comment on above: Order Comment: CLEAN CATCH Performed By: #### L 400.0001 #### [facility] [address] [place], [address] BILIRUBIN URINE Negative Normal Negative [facility] Comment on above: Order Comment: CLEAN CATCH Performed By: #### L 400.0001 #### [facility] [address] [place], [address] Clarity (U) Clear Normal Clear [facility] Comment on above: Order Comment: CLEAN CATCH Performed By: #### L 400.0001 #### [facility] [address] [place], [address] Color (U) Yellow Normal Yellow [facility] Comment on above: Order Comment: CLEAN CATCH Performed By: #### L 400.0001 #### [facility] [address] [place], [address] GLUCOSE, UR Normal Normal Normal [facility] Comment on above: Order Comment: CLEAN CATCH Performed By: #### L 400.0001 #### [facility] [address] [place], [address] KETONE UR Negative Normal Negative [facility] Comment on above: Order Comment: CLEAN CATCH Performed By: #### L 400.0001 #### [facility] [address] [place], [address] LEUK ESTERASE Negative Normal Negative [facility] Comment on above: Order Comment: CLEAN CATCH Performed By: #### L 400.0001 #### [facility] [address] [place], [address] Nitrite Ql (U) Negative Normal Negative [facility] Comment on above: Order Comment: CLEAN CATCH Performed By: #### L 400.0001 #### [facility] [address] [place], [address] OCCULT BLOOD-UR Negative Normal Negative [facility] Comment on above: Order Comment: CLEAN CATCH Performed By: #### L 400.0001 #### [facility] [address] [place], [address] pH UR 6.5 Normal 5.0 - 8.0 [facility] Comment on above: Order Comment: CLEAN CATCH Performed By: #### L 400.0001 #### [facility] [address] [place], [address] PROT DIPSTX 15 mg/dl Abnormal Negative [facility] Comment on above: Order Comment: CLEAN CATCH Performed By: #### L 400.0001 #### [facility] [address] [place], [place], [address] SP.GR. DIPSTX 1.010 Normal 1.002-1.030 [facility] Comment on above: Order Comment: CLEAN CATCH Performed By: #### L 400.0001 #### [facility] [address] [place], [address] UROBILI Normal Normal Normal [facility] Comment on above: Order Comment: CLEAN CATCH Performed By: #### L 400.0001 #### [facility] [address] [place], [place], [address] Mucus Ql (Urine sed) 0 SEEN Normal [facility] Comment on above: Order Comment: CLEAN CATCH Performed By: #### L 400.0001 #### [facility] [address] [place], [place], [address] MALBRon 10-26-2024 U Creatinine 203.9 mg/dL Normal [facility] Comment on above: Performed By: #### M ALBR ####[address] [place], [place] [address] U Microalb 59.3 mg/L Normal [facility] Comment on above: Performed By: #### M ALBR ####[address] [place], [place] [address] U Ratio Alb/Cre 29 mg/G Normal 0-30 [facility] Comment on above: Performed By: #### M ALBR ####[facility] [place], [place] [address] Abdomen Limitedon 10-20-2024 Abdomen Limited [facility] Imaging Services [address] [place], [place] [id number] Abdomen Limited MR#: [id number] Acct: [id number] Name: LEEANNALEONARD HYMANLUANA Palma Rep #: [id number] : 1965 F 59 From: Sam Cohen MD PCP: NADIA Mcrae Status: REG CLI Study: Abdomen Limited Date of Exam: 10/20/24 Exam# [id number] Ordering Dr: Sandi Ramírez PROCEDURE: ABDOMEN LIMITED (USABDL), 10/20/2024 REASON FOR [...] 2. Cholecystectomy without biliary dilatation. Reading Location: [id number] CC: NADIA Ramsey; NADIA Ramírez Pharmacy Helper: Signed Normal [facility] Comprehensive Metabolic Prof ilon 10-18-2024 Albumin [Mass/Vol] 4.2 g/dL Normal 3.5-5.0 [facility] Comment on above: Performed By: #### L 500.4050, L500.4100 ####[facility] [address] [place], [address] Albumin/Globulin [Mass ratio] 1.5 {ratio} Normal 0.9-2.4 [facility] Comment on above: Performed By: #### L 500.4050, L500.4100 ####[facility] [address] [place], [address] ALK PHOS 142 U/L High 35-104 [facility] Comment on above: Performed By: #### L 500.4050, L500.4100 ####[facility] [address] [place], [address] ALT [Catalytic activity/Vol] 73 U/L High <=34 [facility] Comment on above: Performed By: #### L 500.4050, L500.4100 ####[facility] [address] [place], [address] AST [Catalytic activity/Vol] 73 U/L High <=31 [facility] Comment on above: Performed By: #### L 500.4050, L500.4100 ####[facility] [address] [place], [address] Bilirubin [Mass/Vol] 0.31 mg/dL Normal 0.00-1.30 [facility] Comment on above: Performed By: #### L 500.4050, L500.4100 ####[facility] [address] [place], [address] BUN/CRE 16.4 RATIO Normal 10-20 [facility] Comment on above: Performed By: #### L 500.4050, L500.4100 ####[facility] [address] [place], [address] Calcium [Mass/Vol] 9.5 mg/dL Normal 7.6-11.0 [facility] Comment on above: Performed By: #### L 500.4050, L500.4100 ####[facility] [address] [place], [address] Chloride [Moles/Vol] 103 mmol/L Normal 98-108 [facility] Comment on above: Performed By: #### L 500.4050, L500.4100 ####[facility] [address] [place], [address] CO2 [Moles/Vol] 23.2 mmol/L Normal 21.0-32.0 [facility] Comment on above: Performed By: #### L 500.4050, L500.4100 ####[facility] [address] [place], [address] Creatinine [Mass/Vol] 0.70 mg/dL Normal 0.70-1.20 [facility] Comment on above: Performed By: #### L 500.4050, L500.4100 ####[facility] [address] [place], [address] GAP 15 Normal 5-15 [facility] Comment on above: Performed By: #### L 500.4050, L500.4100 ####[facility] [address] [place], [address] GFR/1.73 sq M.predicted among non-blacks MDRD (S/P/Bld) [Vol rate/Area] 100 mL/min/{1.73_m2} Normal >60 [facility] Comment on above: Result Comment: mL/m in/1.73m2 CKD-EPI Creatinine Equation (2020) Performed By: #### L 500.4050, L500.4100 ####[facility] [address] [place], [address] Globulin (S) [Mass/Vol] 2.9 g/dL Normal 2.2-4.2 [facility] Comment on above: Performed By: #### L 500.4050, L500.4100 ####[facility] [address] [place], [address] Glucose [Mass/Vol] 144 mg/dL High 70-99 [facility] Comment on above: Performed By: #### L 500.4050, L500.4100 ####[facility] [address] [place], [address] Potassium [Moles/Vol] 4.0 mmol/L Normal 3.3-5.1 [facility] Comment on above: Performed By: #### L 500.4050, L500.4100 ####[facility] [address] [place], [address] Sodium [Moles/Vol] 141 mmol/L Normal 133-145 [facility] Comment on above: Performed By: #### L 500.4050, L500.4100 ####[facility] [address] [place], [address] T PROT 7.1 g/dL Normal 5.9-8.4 [facility] Comment on above: Performed By: #### L 500.4050, L500.4100 ####[facility] [address] [place], [address] Urea nitrogen [Mass/Vol] 11 mg/dL Normal 4-19 [facility] Comment on above: Performed By: #### L 500.4050, L500.4100 ####[facility] [address] [place], [place], [id number] Endocrinology Visit Reporton 10-18-2024 Endocrinology Visit Report [facility] [address] [place], [place] [address] OFFICE VISIT Date of Service: 10/18/24 MR#: [id number] Acct: [id number] Name: LEEANNACHRISSY HYMAN Louie Rep #: [id number] : 1965 Provider: NADIA cutler Age/Sex: 59/F [place] [facility] Status: Signed Intake Vital Signs 07/19/24 10:27 [...] (From Augmentin) Allergy (Verified 10/18/24 10:52) Unknown Bhzrvez-REF-ZgL Reductase Inhibitor (Szuqhmg-Fug-Ulx Reductase Inhibitor) Allergy (Verified 10/18/24 10:52) Unknown [...] 55 mcg (more content not included)... Normal [facility] Lipid Profileon 10-18-2024 CHOL:HDL 4.28 Normal [facility] Comment on above: Performed By: #### L 500.4050, L500.4100 ####[facility] [address] [place], [place], [phone]) Cholesterol [Mass/Vol] 250 mg/dL High <=200 [facility] Comment on above: Result Comment: Chol esterol level, Desirable <200 mg/dL Borderline high cholesterol 200-239 mg/dL High cholesterol >=240 mg/dL Recommendations of the NCEP Adult Treatment Panel for the following risk-cutoff thresholds for the [place] population. Performed By: #### L 500.4050, L500.4100 ####[facility] [address] [place], [place], [id number] Cholesterol in HDL [Mass/Vol] 58 mg/dL Normal [facility] Comment on above: Result Comment: Bárbara onal Cholesterol Education Program (NCEP) guidelines: <40 mg/dL: Low HDL-cholesterol (major risk factor for CHD) >= 60 mg/dL: High HDL-cholesterol (negative risk factor for CHD) HDL-cholesterol is affected by a number of factors, e.g. smoking, exercise, hormones, sex and age. Performed By: #### L 500.4050, L500.4100 ####[facility] [address] [place], [address] Cholesterol in LDL [Mass/Vol] 139 mg/dL Normal [facility] Comment on above: Result Comment: Bord iwvpbi=023-575 mg/dL Higher Udtx=731 mg/dL or greater Performed By: #### L 500.4050, L500.4100 ####[facility] [address] [place], [address] Cholesterol in VLDL [Mass/Vol] 52 mg/dL High 5-40 [facility] Comment on above: Performed By: #### L 500.4050, L500.4100 ####[facility] [address] [place], [address] Triglyceride [Mass/Vol] 261 mg/dL High [facility] Comment on above: Result Comment: The drugs N-Acetylcysteine and Metamizole may falsely depress this assay. Normal range: <150 mg/dL Borderline High: 150-199 mg/dL High: 200-499 mg/dL Very High: >500 mg/dL Performed By: #### L 500.4050, L500.4100 ####[facility] [address] [place], [address] MYCOon 08-15-2024 Mycoplasma IgG Positive Normal [facility] Comment on above: Result Comment: INTE RPRETATION OF MYCOPLASMA IgG BY EIA: Negative: No detectable M. pneumoniae IgG antibody. Positive: Mycoplasma pneumoniae IgG antibody Detected. Equivocal: Equivocal for IgG antibodies to Mycoplasma pneumoniae. Suggest repeat testing in 10-14 days. Performed By: #### M YCO ####[facility] [place] [address] .GFRon 08-14-2024 GFR 129 ml/min/1.73sqm Normal [facility] Comment on above: Result Comment: GFR Population [...] By: #### G FR, MG, BMP #### [address] [address] GFR Non- 107 ml/min/1.73sqm Normal [facility] Comment on above: Result Comment: GFR Population [...] By: #### G FR, MG, BMP #### [address] [address] BMPon 08-14-2024 BUN/Creatinine Ratio 19 ratio Normal 7-27 [facility] Comment on above: Performed By: #### G FR, MG, BMP #### [address] [address] BMPOrdered By: SYSTEM SYSTEM on 08-14-2024 Calcium [Mass/Vol] 9.1 mg/dL Normal 8.4-10.2 AO ADM SS Comment on above: Performed By: #### G FR, MG, BMP #### [address] [address] Chloride [Moles/Vol] 104 mmol/L Normal 98-107 AO [facility] SS Comment on above: Performed By: #### G FR, MG, BMP #### [address] [address] CO2 [Moles/Vol] 24 mmol/L Normal 22-29 AO [facility] SS Comment on above: Performed By: #### Demetrio FR, MG, BMP #### [address] [address] Creatinine [Mass/Vol] 0.58 mg/dL Normal 0.55-1.02 [facility] Comment on above: Interpretive Data: T esting performed on Siemens Dimension EXL analyzer using a modified kinetic Melinda technique. Result Comment: Test ing performed on Siemens Dimension EXL analyzer using a modified kinetic Melinda technique. Performed By: #### Demetrio FR, MG, BMP #### [address] [address] Electrolyte Balance 11.0 mEq/L Normal 4.0-15.0 AO AD M SS Comment on above: Performed By: #### Demetrio FR MG, BMP #### [address] [address] Glucose [Mass/Vol] 219 mg/dL High 70-105 AO ADM SS Comment on above: Performed By: #### Demetrio FR MG, BMP #### [address] [address] Potassium [Moles/Vol] 4.1 mmol/L Normal 3.5-5.1 AO ADM SS Comment on above: Performed By: #### Demetrio FR, MG, BMP #### [address] [address] Sodium [Moles/Vol] 139 mmol/L Normal 136-145 AO ADM SS Comment on above: Performed By: #### Demetrio FR, MG, BMP #### [address] [address] Urea nitrogen [Mass/Vol] 11 mg/dL Normal 7-18 AO ADM SS Comment on above: Performed By: #### Demetrio FR, MG, BMP #### [address] [address] LABORATORYOrdered By: Chelsie Gibson on 08-14-2024 Blood Glucose Testing Reason Routine (08/14/24 12:12 PM) [facility] Work Phone: Glucose [Mass/Vol] 273 mg/dL High 70 - 110 mg/dL [facility] Work Phone: Blood Glucose Testing Reason Routine (08/14/24 8:01 AM) [facility] Work Phone: Glucose [Mass/Vol] 248 mg/dL High 70 - 110 mg/dL [facility] Work Phone: LABORATORYOrdered By: Harika antoine on 08-14-2024 Blood Glucose Testing Reason Routine (08/14/24 11:24 AM) [facility] Work Phone: Glucose [Mass/Vol] 281 mg/dL High 70 - 110 mg/dL [facility] Work Phone: LABORATORYOrdered By: SYSTEM SYSTEM [...] By: #### G FR, MG, BMP #### [address] [address] MYCOon 08-14-2024 Mycoplasma IgM Negative Normal [facility] Comment on above: Result Comment: INTE RPRETATION OF MYCOPLASMA IgM: Negative: IgM to M. pneumoniae Absent, or at levels below the assay limit of detection. Positive: IgM to M. pneumoniae Present. Invalid: Test results are invalid due to invalid internal control. Assay was performed in duplicate. Repeat testing is suggested if clinically indicated. Performed By: #### M YCO ####[address] [address] .Auto Diffon 08-13-2024 Basophil, Absolute 0.0 10 3/mcL Normal 0.0-0.[address] [facility] Comment on above: Performed By: #### C BC, MG, GFR, BMP, ANEU, ADIFF #### [address] [address] Basophils/100 WBC (Bld) 0.3 % Normal 0.0-2.5 [facility] Comment on above: Performed By: #### C BC, MG, GFR, BMP, ANEU, ADIFF #### [address] [address] Eosinophil, Absolute 0.3 10 3/mcL Normal 0.0-0.7 [facility] Comment on above: Performed By: #### C BC, MG, GFR, BMP, ANEU, ADIFF #### [address] [address] Eosinophils/100 WBC (Bld) 2.7 % Normal 0.0-7.0 [facility] Comment on above: Performed By: #### C BC, MG, GFR, BMP, ANEU, ADIFF #### [address] [address] Lymphocyte, Absolute 3.5 10 3/mcL Normal 0.9-4.3 [facility] Comment on above: Performed By: #### C BC, MG, GFR, BMP, ANEU, ADIFF #### [address] [address] Lymphocytes/100 WBC (Bld) 35.2 % Normal 20.0-40.0 [facility] Comment on above: Performed By: #### C BC, MG, GFR, BMP, ANEU, ADIFF #### [address] [address] Monocyte, Absolute 1.0 10 3/mcL Normal 0.1-1.[address] [facility] Comment on above: Performed By: #### C BC, MG, GFR, BMP, ANEU, ADIFF #### [address] [address] Monocytes/100 WBC (Bld) 9.6 % Normal 2.0-13.0 [facility] Comment on above: Performed By: #### C BC, MG, GFR, BMP, ANEU, ADIFF #### [address] [address] Neutrophils/100 WBC (Bld) 52.2 % Normal 50.0-75.0 [facility] Comment on above: Performed By: #### C BC, MG, GFR, BMP, ANEU, ADIFF #### [address] [address] .GFRon 08-13-2024 GFR 102 ml/min/1.73sqm Normal [facility] Comment on above: Result Comment: GFR Population [...] 15 mL/min/1.73 square meters Performed By: #### C BC, MG, GFR, BMP, ANEU, ADIFF ####[place] [address] [place], [place] [address] GFR Non- 85 ml/min/1.73sqm Normal [facility] Comment on above: Result Comment: GFR Population [...] 15 mL/min/1.73 square meters Performed By: #### C BC, MG, GFR, BMP, ANEU, ADIFF ####[facility] [place], [place] [address] .NEUABSon 08-13-2024 Neutrophil, Absolute 5.2 10 3/mcL Normal 2.3-8.1 [facility] Comment on above: Performed By: #### C BC, MG, GFR, BMP, ANEU, ADIFF #### [address] [place], [place] [address] BMPon 08-13-2024 Calcium [Mass/Vol] 8.6 mg/dL Normal 8.4-10.2 [facility] Comment on above: Performed By: #### C BC, MG, GFR, BMP, ANEU, ADIFF ####[address] [place], [place] [address] BUN/Creatinine Ratio 18 ratio Normal 7-27 [facility] Comment on above: Performed By: #### C BC, MG, GFR, BMP, ANEU, ADIFF ####[address] [place], [place] [address] Chloride [Moles/Vol] 106 mmol/L Normal 98-107 [facility] Comment on above: Performed By: #### C BC, MG, GFR, BMP, ANEU, ADIFF ####[address] [place] [address] CO2 [Moles/Vol] 20 mmol/L Low 22-29 [facility] Comment on above: Performed By: #### C BC, MG, GFR, BMP, ANEU, ADIFF ####[address] [place] [address] Creatinine [Mass/Vol] 0.71 mg/dL Normal 0.55-1.02 [facility] Comment on above: Result Comment: Test ing performed on Siemens Dimension EXL analyzer using a modified kinetic Melinda technique. Performed By: #### C BC, MG, GFR, BMP, ANEU, ADIFF ####[address] [place] [address] Electrolyte Balance 13.0 mEq/L Normal 4.0-15.0 [facility] Comment on above: Performed By: #### C BC, MG, GFR, BMP, ANEU, ADIFF ####[address] [place], [place] [address] Glucose [Mass/Vol] 223 mg/dL High 70-105 [facility] Comment on above: Performed By: #### C BC, MG, GFR, BMP, ANEU, ADIFF ####[address] [place], [place] [address] Potassium [Moles/Vol] 4.1 mmol/L Normal 3.5-5.1 [facility] Comment on above: Performed By: #### C BC, MG, GFR, BMP, ANEU, ADIFF ####[address] [address] Sodium [Moles/Vol] 139 mmol/L Normal 136-145 [facility] Comment on above: Performed By: #### C BC, MG, GFR, BMP, ANEU, ADIFF ####[address] [address] Urea nitrogen [Mass/Vol] 13 mg/dL Normal 7-18 [facility] Comment on above: Performed By: #### C BC, MG, GFR, BMP, ANEU, ADIFF ####[address] [address] CBCon 08-13-2024 Erythrocyte distribution width (RBC) [Ratio] 12.8 % Normal 11.5-15.5 [facility] Comment on above: Performed By: #### C BC, MG, GFR, BMP, ANEU, ADIFF #### [address] [address] Hematocrit (Bld) [Volume fraction] 44.4 % Normal 34.0-46.0 [facility] Comment on above: Performed By: #### C BC, MG, GFR, BMP, ANEU, ADIFF #### [address] [address] Hgb 14.8 G/dL Normal 12.0-16.0 [facility] Comment on above: Performed By: #### C BC, MG, GFR, BMP, ANEU, ADIFF #### [address] [address] MCH (RBC) [Entitic mass] 30.3 pg Normal 27.0-33.0 [facility] Comment on above: Performed By: #### C BC, MG, GFR, BMP, ANEU, ADIFF #### [address] [address] MCHC 33.4 G/dL Normal 32.0-36.0 [facility] Comment on above: Performed By: #### C BC, MG, GFR, BMP, ANEU, ADIFF #### [place] [address] MCV (RBC) [Entitic vol] 90.9 fL Normal 80.0-99.0 [facility] [facility] Comment on above: Performed By: #### C BC, MG, GFR, BMP, ANEU, ADIFF #### [place] [address] Platelet 279 10 3/mcL Normal 150-450 [facility] Comment on above: Performed By: #### C BC, MG, GFR, BMP, ANEU, ADIFF #### [place] [address] Platelet mean volume (Bld) [Entitic vol] 7.2 fL Normal 6.6-10.5 [facility] Comment on above: Performed By: #### C BC, MG, GFR, BMP, ANEU, ADIFF #### [place] [address] RBC 4.89 10 6/mcL Normal 4.10-5.30 [facility] Comment on above: Performed By: #### C BC, MG, GFR, BMP, ANEU, ADIFF #### [place] [address] WBC 10.0 10 3/mcL Normal 4.5-10.8 [facility] Comment on above: Performed By: #### C BC, MG, GFR, BMP, ANEU, ADIFF #### [place] [address] LABORATORYOrdered By: SYSTEM SYSTEM on 08-13-2024 Basophils [...] 08-13-2024 Magnesium [Mass/Vol] 1.8 mg/dL Normal 1.8-2.4 [facility] Comment on above: Performed By: #### C BC, MG, GFR, BMP, ANEU, ADIFF ####[place] [address] [place], [place] [address] RESCVIDon 08-13-2024 Adenovirus Not detected Normal Not Detected [facility] Comment on above: Performed By: #### R ESCVID ####[place] [address] Bordetella Parapertussis Not detected Normal Not Detected [facility] Comment on above: Performed By: #### R ESCVID ####[place] [address] Bordetella Pertussis Not detected Normal Not Detected [facility] Comment on above: Performed By: #### R ESCVID ####[place] [address] Chlamydophila pneumoniae Not detected Normal Not Detected [facility] Comment on above: Performed By: #### R ESCVID ####[place] [address] Coronavirus 229E (Not COVID-19) Not detected Normal Not Detected [facility] Comment on above: Performed By: #### R ESCVID ####[place] [id number] Coronavirus HKU1 (Not COVID-19) Not detected Normal Not Detected [facility] Comment on above: Performed By: #### R ESCVID ####[facility] [place] [address] Coronavirus NL63 (Not COVID-19) Not detected Normal Not Detected [facility] Comment on above: Performed By: #### R ESCVID ####[facility] [place] [address] Coronavirus OC43 (Not COVID-19) Not detected Normal Not Detected [facility] Comment on above: Performed By: #### R ESCVID ####[facility] [place] [address] Human Metapneumovirus Not detected Normal Not Detected [facility] Comment on above: Performed By: #### R ESCVID ####[facility] [place] [address] Influenza A Not detected Normal Not Detected [facility] Comment on above: Performed By: #### R ESCVID ####[facility] [place] [address] Influenza B Not detected Normal Not Detected [facility] Comment on above: Performed By: #### R ESCVID ####[facility] [place] [address] Mycoplasma pneumoniae Not detected Normal Not Detected [facility] Comment on above: Performed By: #### R ESCVID ####[facility] [place] [address] Parainfluenza 1 Not detected Normal Not Detected [facility] Comment on above: Performed By: #### R ESCVID ####[facility] [place] [address] Parainfluenza 2 Not detected Normal Not Detected [facility] Comment on above: Performed By: #### R ESCVID ####[facility] [place] [address] Parainfluenza 3 Not detected Normal Not Detected [facility] Comment on above: Performed By: #### R ESCVID ####[facility] [place] [address] Parainfluenza 4 Not detected Normal Not Detected [facility] Comment on above: Performed By: #### R ESCVID ####[address] [address] Respiratory Syncytial Virus Not detected Normal Not Detected [facility] Comment on above: Performed By: #### R ESCVID ####[place] [address] [place] [address] Rhinovirus/Enterovi kacy Detected Abnormal Not Detected [facility] Comment on above: Performed By: #### R ESCVID ####[address] [address] SARS-CoV-2 (COVID-19) RNA JALIL+probe Ql (Unsp spec) Not detected Normal Not Detected [facility] Comment on above: Result Comment: This assay has been validated in the [facility] for use with nasopharyngeal specimens in [facility]. If a non-validated specimen or test [...] health authorities. Performed By: #### R ESCVID ####[address], [place] [address] .Auto Diffon 08-12-2024 Basophil, Absolute 0.0 10 3/mcL Normal 0.0-0.[address] [facility] Comment on above: Performed By: #### C MP, GFR, ADIFF, LIP, LAC, CBC, TROPHS, ANEU, MDW ####[facility] [place], [place] [address] Basophils/100 WBC (Bld) 0.3 % Normal 0.0-2.5 [facility] Comment on above: Performed By: #### C MP, GFR, ADIFF, LIP, LAC, CBC, TROPHS, ANEU, MDW ####[facility] [place], [place] [address] Eosinophil, Absolute 0.1 10 3/mcL Normal 0.0-0.7 [facility] Comment on above: Performed By: #### C MP, GFR, ADIFF, LIP, LAC, CBC, TROPHS, ANEU, MDW ####[facility] [place], [place] [address] Eosinophils/100 WBC (Bld) 0.8 % Normal 0.0-7.0 [facility] Comment on above: Performed By: #### C MP, GFR, ADIFF, LIP, LAC, CBC, TROPHS, ANEU, MDW ####[address] [place], [place] [address] Lymphocyte, Absolute 3.1 10 3/mcL Normal 0.9-4.3 [facility] Comment on above: Performed By: #### C MP, GFR, ADIFF, LIP, LAC, CBC, TROPHS, ANEU, MDW ####[facility] [place], [place] [address] Lymphocytes/100 WBC (Bld) 19.5 % Low 20.0-40.0 [facility] Comment on above: Performed By: #### C MP, GFR, ADIFF, LIP, LAC, CBC, TROPHS, ANEU, MDW ####[address] [place], [place] [address] Monocyte, Absolute 1.4 10 3/mcL Normal 0.1-1.[address] [facility] Comment on above: Performed By: #### C MP, GFR, ADIFF, LIP, LAC, CBC, TROPHS, BIJAL GRIJALVA ####[address] [place], [place] [address] Monocytes/100 WBC (Bld) 8.5 % Normal 2.0-13.0 [facility] Comment on above: Performed By: #### C MP, GFR, ADIFF, LIP, LAC, CBC, TROPHS, BIJAL GRIJALVA ####[address] [address] [place], [place] [address] Neutrophils/100 WBC (Bld) 70.9 % Normal 50.0-75.0 [facility] Comment on above: Performed By: #### C MP, GFR, ADIFF, LIP, LAC, CBC, TROPHS, BIJAL GRIJALVA ####[address] [place], [place] [address] .GFRon 08-12-2024 GFR 101 ml/min/1.73sqm Normal [facility] Comment on above: Result Comment: GFR Population [...] 15 mL/min/1.73 square meters Performed By: #### C MP, GFR, ADIFF, LIP, LAC, CBC, TROPHS, ANEUBIJAL ####[address] [place], [place] [address] GFR Non- 83 ml/min/1.73sqm Normal [facility] Comment on above: Result Comment: GFR Population [...] 15 mL/min/1.73 square meters Performed By: #### C MP, GFR, ADIFF, LIP, LAC, CBC, TROPHS, BIJAL GRIJALVA ####[address] [place], [place] [address] .MDWon 08-12-2024 Monocyte Distribution Width 18.91 Normal 0.00-20.00 [facility] Comment on above: Result Comment: For ED adult patients suspected of sepsis, MDW<=20.0 does not rule out sepsis or risk of sepsis Performed By: #### C MP, GFR, ADIFF, LIP, LAC, CBC, TROPHS, RUDI, BIJAL ####[address] [place], [place] [address] .NEUABSon 08-12-2024 Neutrophil, Absolute 11.4 10 3/mcL High 2.3-8.1 [facility] Comment on above: Performed By: #### C MP, GFR, ADIFF, LIP, LAC, CBC, TROPHS, RUDI, BIJAL ####[address] [place], [place] [address] .Urinalysis Microscopic (AO) on 08-12-2024 UA Mucous 3+ /hpf Normal [facility] Comment on above: Performed By: #### U A, UAMICAO ####[address] [place], [place] [address] UA RBC None Seen Normal None Seen [facility] Comment on above: Performed By: #### U A, UAMICAO ####[address]ancy [address] [place], [place] [address] UA Squam Epithelial 15-25 Abnormal None Seen [facility] Comment on above: Performed By: #### U A UAMICAO ####[place] [address] [place], [place] [address] UA WBC 0-5 Abnormal None Seen [facility] Comment on above: Performed By: #### U A UAMICAO ####[address] [place] [id number] CBCon 08-12-2024 Erythrocyte distribution width (RBC) [Ratio] 12.9 % Normal 11.5-15.5 [facility] Comment on above: Performed By: #### C MP, GFR, ADIFF, LIP, LAC, CBC, TROPHSRUDI MDW ####[address] [place] [address] Hematocrit (Bld) [Volume fraction] 50.0 % High 34.0-46.0 [facility] Comment on above: Performed By: #### C MP, GFR, ADIFF, LIP, LAC, CBC, TROPHS, BIJAL GRIJALVA ####[address] [place] [address] Hgb 17.1 G/dL High 12.0-16.0 [facility] Comment on above: Performed By: #### C MP, GFR, ADIFF, LIP, LAC, CBC, TROPHSRUDI MDW ####[address] [place] [phone] MCH (RBC) [Entitic mass] 30.3 pg Normal 27.0-33.0 [facility] Comment on above: Performed By: #### C MP, GFR, ADIFF, LIP, LAC, CBC, TROPHSRUDI MDW ####Mary[address] [place] [address] MCHC 34.1 G/dL Normal 32.0-36.0 [facility] Comment on above: Performed By: #### C MP, GFR, ADIFF, LIP, LAC, CBC, TROPHS, BIJAL GRIJALVA ####[address] [place] [address] MCV (RBC) [Entitic vol] 88.8 fL Normal 80.0-99.0 [facility] Comment on above: Performed By: #### C MP, GFR, ADIFF, LIP, LAC, CBC, TROPHSRUDI MDW ####[address] [place], [place] [address] Platelet 383 10 3/mcL Normal 150-450 [facility] Comment on above: Performed By: #### C MP, GFR, ADIFF, LIP, LAC, CBC, TROPHS, BIJAL GRIJALVA ####[address] [address] [place], [place] [address] Platelet mean volume (Bld) [Entitic vol] 7.4 fL Normal 6.6-10.5 [facility] Comment on above: Performed By: #### C MP, GFR, ADIFF, LIP, LAC, CBC, RUDI NG MDW ####[address] [place], [place] [address] RBC 5.63 10 6/mcL High 4.10-5.30 [facility] Comment on above: Performed By: #### C MP, GFR, ADIFF, LIP, LAC, CBC, RUDI NG MDW ####[address] [place], [place] [address] WBC 16.0 10 3/mcL High 4.5-10.8 [facility] Comment on above: Performed By: #### C MP, GFR, ADIFF, LIP, LAC, CBC, KYSRUDI MDW ####[address] [address] [place], [place] [address] CMPon 08-12-2024 Albumin Level 3.6 G/dL Normal 3.5-5.0 [facility] Comment on above: Performed By: #### C MP, GFR, ADIFF, LIP, LAC, CBC, TROPHSRUDI MDW ####[address] [place], [place] [address] Albumin/Globulin [Mass ratio] 0.9 {ratio} Low 1.1-2.5 [facility] Comment on above: Performed By: #### C MP, GFR, ADIFF, LIP, LAC, CBC, TROPHS, RUDI, BIJAL ####[place] [address] [place] [phone] ALP [Catalytic activity/Vol] 130 U/L Normal 40-135 [facility] Comment on above: Performed By: #### C MP, GFR, ADIFF, LIP, LAC, CBC, TROPHS, BIJAL GRIJALVA ####[place] [address] [place] [phone] ALT [Catalytic activity/Vol] 100 U/L High 14-59 [facility] Comment on above: Performed By: #### C MP, GFR, ADIFF, LIP, LAC, CBC, TROPHS, BIJAL GRIJALVA ####[address] [place] [address] AST [Catalytic activity/Vol] 74 U/L High 10-40 [facility] Comment on above: Performed By: #### C MP, GFR, ADIFF, LIP, LAC, CBC, TROPHS, BIJAL GRIJALVA ####[place] [address] [place] [phone] Bili Total 0.9 mg/dL Normal 0.2-1.0 [facility] Comment on above: Result Comment: Use of this assay is not recommended for patients undergoing treatment with eltrombopag due to the potential for falsely elevated results. Performed By: #### C MP, GFR, ADIFF, LIP, LAC, CBC, TROPHS, BIJAL GRIJALVA ####[place] [address] [place] [phone] BUN/Creatinine Ratio 28 ratio High 7-27 [facility] Comment on above: Performed By: #### C MP, GFR, ADIFF, LIP, LAC, CBC, TROPHS, BIJAL GRIJALVA ####[address] [place] [phone] Calcium [Mass/Vol] 10.1 mg/dL Normal 8.4-10.2 [facility] Comment on above: Performed By: #### C MP, GFR, ADIFF, LIP, LAC, CBC, TROPHS, BIJAL GRIJALVA ####[facility] [place], [place] [address] Chloride [Moles/Vol] 100 mmol/L Normal 98-107 [facility] Comment on above: Performed By: #### C MP, GFR, ADIFF, LIP, LAC, CBC, RUDI NG MDW ####[facility] [place], [place] [address] CO2 [Moles/Vol] 17 mmol/L Low 22-29 [facility] Comment on above: Performed By: #### C MP, GFR, ADIFF, LIP, LAC, CBC, RUDI NG MDW ####[facility] [place], [place] [address] Creatinine [Mass/Vol] 0.72 mg/dL Normal 0.55-1.02 [facility] Comment on above: Result Comment: Test ing performed on Siemens Dimension EXL analyzer using a modified kinetic Melinda technique. Performed By: #### C MP, GFR, ADIFF, LIP, LAC, CBC, RUDI NG MDW ####[place] [address] [place], [place] [address] Electrolyte Balance 17.0 mEq/L High 4.0-15.0 [facility] Comment on above: Performed By: #### C MP, GFR, ADIFF, LIP, LAC, CBC, RUDI NG MDW ####[facility] [place], [place] [address] Globulin 4.2 G/dL Normal [facility] Comment on above: Performed By: #### C MP, GFR, ADIFF, LIP, LAC, CBC, RUDI NG MDW ####[place] [address] [place], [place] [address] Glucose [Mass/Vol] 315 mg/dL High 70-105 [facility] Comment on above: Performed By: #### C MP, GFR, ADIFF, LIP, LAC, CBC, RUDI NG MDW ####[place] [address] [place], [place] [address] Potassium [Moles/Vol] 5.0 mmol/L Normal 3.5-5.1 [facility] Comment on above: Performed By: #### C MP, GFR, ADIFF, LIP, LAC, CBC, TROPHSRUDI MDW ####[facility] [place], [place] [address] Sodium [Moles/Vol] 134 mmol/L Low 136-145 [facility] Comment on above: Performed By: #### C MP, GFR, ADIFF, LIP, LAC, CBC, TROPHS, RUDI, W ####[facility] [place], [place] [address] Total Protein 7.8 G/dL Normal 6.4-8.2 [facility] Comment on above: Performed By: #### C MP, GFR, ADIFF, LIP, LAC, CBC, TROPHS, RUDI, W ####[facility] [place], [place] [address] Urea nitrogen [Mass/Vol] 20 mg/dL High 7-18 [facility] Comment on above: Performed By: #### C MP, GFR, ADIFF, LIP, LAC, CBC, TROPHS, RUDI, W ####[facility] [place], [place] [address] CT ABD/PELVIS W/ IV CONTRAST ONLYon 08-12-2024 [...] 4:38:38 PM Ordering Provider: JERAD GARCIA Normal [facility] CVFLURVon 08-12-2024 FLU A PCR Negative Normal Negative [facility] Comment on above: Performed By: #### C VFLURV ####[place] [address] FLU B PCR Negative Normal Negative [facility] Comment on above: Performed By: #### C VFLURV ####[place] [address] [place] [address] RSV PCR Negative Normal Negative [facility] Comment on above: Performed By: #### C VFLURV ####[place] [address] [place] [address] SARS-CoV-2 (COVID-19) RNA JALIL+probe Ql (Unsp spec) Negative Normal Negative [facility] Comment on above: Result Comment: Resu lts [...] inaccurate positive results. Performed By: #### C VFLU ####Mary[address] [place], [place] [address] LABORATORYOrdered By: Edgardo Garcia on 08-12-2024 M. [...] Site Condition: No complications (08/12/24 10:13 PM) [facility] Work Phone: Glucose [Mass/Vol] 207 mg/dL [facility] Work Phone: Time of Stated Blood Glucose [phone] [facility] Work Phone: LABORATORYOrdered By: SYSTEM SYSTEM on 08-12-2024 Lactate [Moles/Vol] 1.6 mmol/L Normal 0.4 - 2. 0 mmol/L AO ADM SS Troponin I.cardiac DL <= 0.01 ng/mL [Mass/Vol] 4 ng/L Normal 0 - 51 ng/L AO ADM SS Comment on above: Interpretive Data: H igh Sensitive Troponin I Reference Ranges: Female: 0-51 ng/L Male: 0-76 ng/L Testing performed on [employer] using a homogeneous sandwich chemiluminescent immunoassay based on [employer] technology. Lactate [Moles/Vol] 2.6 mmol/L High 0.4 [...] Detected AH Auto Viro/Sero SS B. parapertussis [id number] DNA JALIL+non-probe Ql (Nph) Not Detected *NA* [...] his assay has been validated in the [facility] for use with nasopharyngeal specimens in [facility]. If a non-validated specimen or test [...] Lactic Acid Lvl 1.6 mmol/L Normal 0.4-2.0 [facility] Comment on above: Order Comment: Order ed secondary to Lactic Acid result greater than or equal to 2.0 Performed By: #### L AC ####[place] [address] [place], [place] [address] Lactic Acid Lvl 2.6 mmol/L High 0.4-2.0 [facility] Comment on above: Performed By: #### C MP, GFR, ADIFF, LIP, LAC, CBC, TROPHS, ANEU, MDW ####[place] [address] [place], [place] [address] LIPon 08-12-2024 Lipase Level 41 U/L Normal 16-77 [facility] Comment on above: Performed By: #### C MP, GFR, ADIFF, LIP, LAC, CBC, TROPHS, ANEU, MDW ####[facility] [place], [place] [address] No Panel Informationon 08-12 Microscopic examination of blood, culture Culture has been received in lab and is no growth to date. Routine cultures are held for 5 days. [facility] Work Phone: Legionella Urine Ag Presumptive negative for L. pneumophila serogroup 1 antigen in urine, suggesting no recent or current infection. Legionnaire's disease cannot be ruled out since other serogroups and species may also cause disease. [facility] Work Phone: Streptococcus Pneumoniae Urine Antig Presumptive negative for pneumococcal pneumonia, suggesting no current or recent pneumococcal infection. Infection due to Strep pneumoniae cannot be ruled out since the antigen present in the sample may be below the detection limit of the test. [facility] Work Phone: Comment on above: This test has not be en evaluated on patients taking antibiotics for greater than 24 hours or on patients who have recently completed an antibiotic regimen. The accuracy of this test has not been proven in young children. [facility] 08-12-2024 High Sensitivity Troponin I 4 ng/L Normal 0-51 [facility] Comment on above: Result Comment: High Sensitive Troponin I Reference Ranges: Female: 0-51 ng/L Male: 0-76 ng/L Testing performed on [employer] using a homogeneous sandwich chemiluminescent immunoassay based on [employer] technology. Performed By: #### C MP, GFR, ADIFF, LIP, LAC, CBC, TROPHS, ANEU, MDW ####[address] [place], [place] [address] UAon 08-12-2024 Color (U) Dark yellow Normal [facility] Comment on above: Performed By: #### U A, UAMICAO ####[address] [place], [place] [address] Glucose (U) [Mass/Vol] 500 mg/dL Abnormal Negative [facility] Comment on above: Performed By: #### U A, UAMICAO ####[address] [address] [place], [place] [address] Ketones Ql (U) Trace Abnormal Negative [facility] Comment on above: Performed By: #### U A, UAMICAO ####[address] [address] [place], [place] [address] UA Appear Cloudy Abnormal Clear [facility] Comment on above: Performed By: #### U A, UAMICAO ####[place] [address] UA Bili Small Abnormal Negative [facility] Comment on above: Result Comment: Sugg est correlation with serum bilirubin and clinical findings if medically necessary. Performed By: #### U A, UAMICAO ####[address] [place] [address] UA Blood Negative Normal Negative [facility] Comment on above: Performed By: #### U A, UAMICAO ####Mary[address] [place] [address] UA Leuk Est Negative Normal Negative [facility] Comment on above: Performed By: #### U A, UAMICAO ####[place] [address] [place] [address] UA Nitrite Negative Normal Negative [facility] Comment on above: Performed By: #### U A, UAMICAO ####[place] [address] [place] [address] UA pH 6.0 Normal 5.0 - 8.0 [facility] Comment on above: Performed By: #### U A, UAMICAO ####[place] [address] [place] [address] UA Protein 100 mg/dL Abnormal Negative [facility] Comment on above: Performed By: #### U A, UAMICAO ####[address] [address] [place] [address] UA Spec Grav >=1.030 Abnormal 1.015-1.025 [facility] Comment on above: Performed By: #### U A, UAMICAO ####Marybeth [address] [place] [address] UA Specimen Type Clean Catch Normal [facility] Comment on above: Performed By: #### U A, UAMICAO ####[address] [address] [place] [address] UA Urobilinogen 0.2 E.U./dL Normal 0.2-1.0 [facility] Comment on above: Performed By: #### U A, UAMICAO ####[address] [address] XR CHEST 1 VIEWon 08-12-2024 XR CHEST [...] 08/12/2024 3:43:51 PM Ordering Provider: JERAD Nelson [facility] Urgent Care Visit Reporton 0 08-05-2024 Urgent Care Visit Report [facility] [address] [place] [address] OFFICE VISIT Date of Service: 08/05/24 MR#: [id number] Acct: [id number] Name: LEEANNABOOGIECHRISSY Louie Rep #: [id number] : 1965 Provider: CHEPE Pro Age/Sex: 59/F [place] [facility] [place] Status: Signed Intake Vital [...] (From Augmentin) Allergy (Verified 08/05/24 17:35) Unknown Bienpbi-FPQ-CsZ Reductase Inhibitor (Fnjnvsl-Ayy-Qkt Reductase Inhibitor) Allergy (Verified 08/05/24 17:35) Unknown [...] Rx tabs (more content not included)... Normal [facility] Endocrinology Visit Reporton 07-19-2024 Endocrinology Visit Report [facility] [address] [place] [address] OFFICE VISIT Date of Service: 07/19/24 MR#: [id number] Acct: [id number] Name: CHRISSY LAY Rep #: [id number] : 1965 Provider: NADIA cutler Age/Sex: 59/F [place] [facility] [place]: Signed Intake Vital Signs 04/21/24 10:30 [...] (From Augmentin) Allergy (Verified 07/19/24 10:32) Unknown Dhvqzij-JSY-WaZ Reductase Inhibitor (Sgxdrnj-Fip-Nny Reductase Inhibitor) Allergy (Verified 07/19/24 10:32) Unknown [...] PO DAILY GERD 07/19/24 07/19/24 History release PFSH Medical History Osteoarthritis of left knee Left knee pain Osteoarthritis of right knee Contusion of right chest wall Contusion of right shoulder Contusion of forehead Hi (more content not included)... Normal [facility] Knee 4 or More Viewson 06-17 Knee 4 or More Views [facility] [address] [place] [address] Knee 4 or More Views MR#: [id number] Acct: [id number] Name: CHRISSY LAY Rep #: [id number] : 1965 F 59 From: Petros Reyes MD PCP: NADIA Mcrae Status: DEP AMB Study: Knee 4 or More Views Date of Exam: 06/17/24 Exam# [id number] Ordering Dr: Karl Ashton MD :[id number] STUDY: X-RAY - LEFT KNEE REASON FOR [...] 15:01 EST Reading Location ID and State: [facility] / [place] , Service support , CC: NADIA Ramsey; Dr. Karl Ashton MD Pharmacy Helper: Signed Normal [facility] Orthopedic Visit Reporton Orthopedic Visit Report [facility] [facility] [address] [place] [address] OFFICE VISIT Date of Service: 06/17/24 MR#: [id number] Acct: [id number] Name: CHRISSY LAY Rep #: [id number] : 1965 Provider: Dr. Karl menendez MD Age/Sex: 59/F [place] [facility] [place] Status: Signed Intake Vital [...] (From Augmentin) Allergy (Verified 06/17/24 10:52) Unknown Zmmwqfr-KGP-JbG Reductase Inhibitor (Fokbtho-Uqs-Mgd Reductase Inhibitor) Allergy (Verified 06/17/24 10:52) Unknown [...] BID #180 caps 04/26/24 06/17/24 Rx capsule PFSH Medical History (Updated 06/17/24 @ 11:35 by Karl Ashton MD) Osteoarthritis of left knee Left knee pain Osteoarthritis of right knee Contusion of right chest wall Contusion of right shoulder Contusion of forehead History of diabetes mellitus PTSD (post-traumatic stre (more content not included)... Normal [facility] BNP,B-Type NATRIURETIC PEPTI Irene 04-23-2024 Natriuretic peptide B (Bld) [Mass/Vol] 7.3 pg/mL Normal 0-100 [facility] Comment on above: Performed By: #### L 502.0250, L500.4100, L503.6620, L506.1000 #### [facility] [address] [place], [address] Lipid Profileon 04-23-2024 Cholesterol [Mass/Vol] 265 mg/dL High 200 [facility] Comment on above: Result Comment: <200 mg/dL Desirable 200-240 mg/dL Borderline >240 mg/dL High Risk Performed By: #### L 502.0250, L500.4100, L503.6620, L506.1000 #### [facility] [address] [place], [address] Cholesterol in HDL [Mass/Vol] 74 mg/dL Normal [facility] Comment on above: Result Comment: The drugs N-Acetylcysteine and Metamizole may falsely depress this assay. Reference Range HDL <40 mg/dL Low HDL Cholesterol HDL >or= 60 mg/dL High HDL Cholesterol Performed By: #### L 502.0250, L500.4100, L503.6620, L506.1000 #### [facility] [address] [place], [address] Cholesterol in LDL [Mass/Vol] 142 mg/dL High 0-130 [facility] Comment on above: Performed By: #### L 502.0250, L500.4100, L503.6620, L506.1000 #### [facility] [address] [place], [address] Cholesterol in VLDL [Mass/Vol] 49 mg/dL High 5-40 [facility] Comment on above: Performed By: #### L 502.0250, L500.4100, L503.6620, L506.1000 #### [facility] [address] [place], [address] Triglyceride [Mass/Vol] 247 mg/dL High [facility] Comment on above: Result Comment: The drugs N-Acetylcysteine and Metamizole may falsely depress this assay. Serum Triglycerides Reference Interval Normal <150 mg/dL Borderline high 150 - 199 mg/dL High 200 - 499 mg/dL Very High > or = 500 mg/dL Performed By: #### L 502.0250, L500.4100, L503.6620, L506.1000 #### [facility] [address] [place], [address] Microalb:Creat Ratio,Random URon 04-23-2024 Creatinine [Mass/Vol] 76.20 mg/dL Normal NO RANGE EST. [facility] Comment on above: Performed By: #### L 502.0250, L500.4100, L503.6620, L506.1000 #### [facility] [address] [place], [address] MALB:CRE 58.5 mg/g CRE High <30 mg/g CRE [facility] Comment on above: Performed By: #### L 502.0250, L500.4100, L503.6620, L506.1000 #### [facility] [address] [place], [address] MICROALBUMIN,UR 44.6 mg/L Normal NO RANGE EST. [facility] Comment on above: Performed By: #### L 502.0250, L500.4100, L503.6620, L506.1000 #### [facility] [address] [place], [address] Vitamin D,25 Hydroxyon 04-23 Vitamin D 25-OH 29.7 ng/mL Normal [facility] Comment on above: Result Comment: Maryam min D 25(OH) Status Range Deficiency <20 ng/mL (50nmol/L) Insufficiency 20 - 30 ng/mL (50 - 75 nmol/L) Sufficiency 30 - 100 ng/mL (75 - 250 nmol/L) Toxicity >100 ng/mL (>250 nmol/L) Performed By: #### L 502.0250, L500.4100, L503.6620, L506.1000 #### [facility] [address] [place], [address] Endocrinology Visit Reporton 04-21-2024 Endocrinology Visit Report [facility] [address] [place] [address] OFFICE VISIT Date of Service: 04/21/24 MR#: [id number] Acct: [id number] Name: CHRISSY LAY Rep #: [id number] : 1965 Provider: NADIA cutler Age/Sex: 59/F [place] [facility] [place]: Signed Intake Vital Signs 02/29/24 13:09 04/21/24 10:30 Height 5 ft 8 in 5 ft 8 in Weight: 220 lb BMI 33.4 BP 163/77 H Blood Pressure Location Lt brachial Position Sitting Pulse 98 Pulse Source Monitor Pulse Oximetry (%) 95 Oxygen Delivery Method room air Intake Visit Reasons: 4 M FU Chief Complaint: f/u diabetes Silver Steward Required: No Accompanied by: Self Is patient [...] (From Augmentin) Allergy (Verified 04/21/24 10:32) Unknown Ltdtdlb-LJD-JuL Reductase Inhibitor (Bpszinw-Mxi-Jzm Reductase Inhibitor) Allergy (Verified 04/21/24 10:32) Unknown [...] gauge x #100 ea 03/05/23 02/26/24 Rx /32 (BD Ultra-Fine Thais Pen Needle) alcohol swabs [...] use Diabet (more content not included)... Normal [facility] BNP,B-Type NATRIURETIC PEPTI Irene 04-16-2024 Natriuretic peptide B (Bld) [Mass/Vol] 12.7 pg/mL Normal 0-100 [facility] Comment on above: Performed By: #### L 502.0250, L500.4100, L503.6620, L506.1000 #### [facility] [address] [place], [address] CBC-Complete Blood Cnt No Di on 04-16-2024 Erythrocyte distribution width (RBC) [Ratio] 12.7 % Normal 11.6-14.6 [facility] Comment on above: Performed By: #### L 502.0250, L500.4100, L503.6620, L506.1000 #### [facility] [address] [place], [address] Hematocrit (Bld) [Volume fraction] 40.2 % Normal 37-47 [facility] Comment on above: Performed By: #### L 502.0250, L500.4100, L503.6620, L506.1000 #### [facility] [address] [place], [address] Hemoglobin (Bld) [Mass/Vol] 13.1 g/dL Normal 12.0-15.0 [facility] Comment on above: Performed By: #### L 502.0250, L500.4100, L503.6620, L506.1000 #### [facility] [address] [place], [address] MCH (RBC) [Entitic mass] 29.9 pg Normal 27.0-32.0 [facility] Comment on above: Performed By: #### L 502.0250, L500.4100, L503.6620, L506.1000 #### [facility] [address] [place], [address] MCHC (RBC) [Mass/Vol] 32.6 g/dL Normal 32-36 [facility] Comment on above: Performed By: #### L 502.0250, L500.4100, L503.6620, L506.1000 #### [facility] [address] [place], [address] MCV (RBC) [Entitic vol] 91.8 fL Normal 81-99 [facility] Comment on above: Performed By: #### L 502.0250, L500.4100, L503.6620, L506.1000 #### [facility] [address] [place], [address] Platelet mean volume (Bld) [Entitic vol] 8.7 fL Normal 6.2-12.0 [facility] Comment on above: Performed By: #### L 502.0250, L500.4100, L503.6620, L506.1000 #### [facility] [address] [place], [address] Platelets (Bld) [#/Vol] 390 10*3/uL Normal 150-450 [facility] Comment on above: Performed By: #### L 502.0250, L500.4100, L503.6620, L506.1000 #### [facility] [address] [place], [address] RBC (Bld) [#/Vol] 4.38 10*6/uL Normal 4.2-5.4 [facility] Comment on above: Performed By: #### L 502.0250, L500.4100, L503.6620, L506.1000 #### [facility] [address] [place], [address] RDW SD 42.6 fl Normal 35.1-43.9 [facility] Comment on above: Performed By: #### L 502.0250, L500.4100, L503.6620, L506.1000 #### [facility] [address] [place], [address] WBC (Bld) [#/Vol] 9.8 10*3/uL Normal 4.4-11.0 [facility] Comment on above: Performed By: #### L 502.0250, L500.4100, L503.6620, L506.1000 #### [facility] [address] [place], [address] Comprehensive Metabolic Prof ilon 04-16-2024 Albumin [Mass/Vol] 3.3 g/dL Normal 3.2-5.0 [facility] Comment on above: Performed By: #### L 502.0250, L500.4100, L503.6620, L506.1000 #### [facility] [address] [place], [address] Albumin/Globulin [Mass ratio] 0.9 {ratio} Normal 0.9-2.4 [facility] Comment on above: Performed By: #### L 502.0250, L500.4100, L503.6620, L506.1000 #### [facility] [address] [place], [address] ALK P 142 U/L High 45-117 [facility] Comment on above: Performed By: #### L 502.0250, L500.4100, L503.6620, L506.1000 #### [facility] [address] [place], [address] ALT [Catalytic activity/Vol] 42 U/L Normal 13-56 [facility] Comment on above: Performed By: #### L 502.0250, L500.4100, L503.6620, L506.1000 #### [facility] [address] [place], [address] AST [Catalytic activity/Vol] 37 U/L Normal 15-37 [facility] Comment on above: Performed By: #### L 502.0250, L500.4100, L503.6620, L506.1000 #### [facility] [address] [place], [address] Bilirubin [Mass/Vol] 0.20 mg/dL Normal 0.20-1.00 [facility] Comment on above: Result Comment: For patients on eltrombopag therapy, use of Dimension [place] TBIL is not recommended. Performed By: #### L 502.0250, L500.4100, L503.6620, L506.1000 #### [facility] [address] [place], [address] BUN/CRE 15.2 RATIO Normal 10-20 [facility] Comment on above: Performed By: #### L 502.0250, L500.4100, L503.6620, L506.1000 #### [facility] [address] [place], [address] CA,Total 8.8 mg/dL Normal 8.5-10.1 [facility] Comment on above: Performed By: #### L 502.0250, L500.4100, L503.6620, L506.1000 #### [facility] [address] [place], [address] Chloride [Moles/Vol] 108 mmol/L High 98-107 [facility] Comment on above: Performed By: #### L 502.0250, L500.4100, L503.6620, L506.1000 #### [facility] [address] [place], [address] CO2 [Moles/Vol] 23.0 mmol/L Normal 21.0-32.0 [facility] Comment on above: Performed By: #### L 502.0250, L500.4100, L503.6620, L506.1000 #### [facility] [address] [place], [address] Creatinine [Mass/Vol] 0.79 mg/dL Normal 0.55-1.02 [facility] Comment on above: Result Comment: The validity of the calculated GFR GFRAA in patients over 70 years has not been determined. Clinical correlation is essential. Performed By: #### L 502.0250, L500.4100, L503.6620, L506.1000 #### [facility] [address] [place], [address] EST GFR - AA 96 mL/min Normal >60 [facility] Comment on above: Result Comment: Afri can [place] GFR Calc Performed By: #### L 502.0250, L500.4100, L503.6620, L506.1000 #### [facility] [address] [place], [address] GAP 8 Normal 5-15 [facility] Comment on above: Performed By: #### L 502.0250, L500.4100, L503.6620, L506.1000 #### [facility] [address] [place], [address] GFR/1.73 sq M.predicted among non-blacks MDRD (S/P/Bld) [Vol rate/Area] 80 mL/min/{1.73_m2} Normal >60 [facility] Comment on above: Result Comment: Non- GFR Calc Performed By: #### L 502.0250, L500.4100, L503.6620, L506.1000 #### [facility] [address] [place], [address] Globulin (S) [Mass/Vol] 3.8 g/dL Normal 2.2-4.2 [facility] Comment on above: Performed By: #### L 502.0250, L500.4100, L503.6620, L506.1000 #### [facility] [address] [place], [address] Glucose [Mass/Vol] 223 mg/dL High 74-106 [facility] Comment on above: Result Comment: Gluc ose result greater than or equal to 200 mg/dL suggests DIABETES MELLITUS per A.D.A. criteria. Performed By: #### L 502.0250, L500.4100, L503.6620, L506.1000 #### [facility] [address] [place], [address] Potassium [Moles/Vol] 4.0 mmol/L Normal 3.5-5.1 [facility] Comment on above: Performed By: #### L 502.0250, L500.4100, L503.6620, L506.1000 #### [facility] [address] [place], [address] Sodium [Moles/Vol] 139 mmol/L Normal 136-145 [facility] Comment on above: Performed By: #### L 502.0250, L500.4100, L503.6620, L506.1000 #### [facility] [address] [place], [address] T PROT 7.1 g/dL Normal 6.4-8.2 [facility] Comment on above: Performed By: #### L 502.0250, L500.4100, L503.6620, L506.1000 #### [facility] [address] [place], [address] Urea nitrogen [Mass/Vol] 12 mg/dL Normal 7-18 [facility] Comment on above: Performed By: #### L 502.0250, L500.4100, L503.6620, L506.1000 #### [facility] [address] [place], [address] Hemoglobin A1con 04-16-2024 HbA1c (Bld) [Mass fraction] 8.7 % High 3.8-5.6 [facility] Comment on above: Result Comment: Norm al < 5.7 % Prediabetic 5.7 - 6.4 % Diabetic >or= 6.5 % Please note range changes. Performed By: #### L 502.0250, L500.4100, L503.6620, L506.1000 #### [facility] [address] [place], [address] Thyroid Stim Hormone (TSH)on 04-16-2024 TSH 1.520 uIU/mL Normal 0.358-3.740 [facility] Comment on above: Performed By: #### L 502.0250, L500.4100, L503.6620, L506.1000 #### [facility] [address] [place], [address] FT3on 03-10-2024 Free T3 [Mass/Vol] 2.81 pg/mL Normal 2.30-4.00 [facility] ([place] Comment on above: Performed By: #### T SH, GFR, CMP, FT4 #### [address] [address] FT4on 03-10-2024 Free T4 [Mass/Vol] 0.74 ng/dL Low 0.76-1.46 [facility] ([place] Comment on above: Performed By: #### T SH, GFR, CMP, FT4 #### [address] [address] TSHon 03-10-2024 TSH Qn 2.95 m[IU]/L Normal 0.36-3.74 [facility] ([place]) Comment on above: Performed By: #### T SH, GFR, CMP, FT4 #### [address] [address] aTPOon 03-10-2024 anti-Thyroid Peroxidase 57 units/ml Normal 0-60 [facility] ([place]) Comment on above: Result Comment: No te - New Reference Range in effect 20 Performed By: #### T SH, GFR, CMP, FT4 #### [address] [address] No Panel Informationon 02-08 Culture Urine >100,000 cfu/ml Staphylococcus saprophyticus Routine sensitivity testing of urine isolates of S.saprophyticus is not advised because infections respond respond to concentrations achieved in urine of antimicrobial agents commonly used to treat acute, uncomplicated urinary tract infections (e.g., nitrofurantoin, fluoroquinolone, or trimethoprim +/- sulfamethoxazole). [facility] Work Phone: Staphylococcus saprophyticus Staphylococcus saprophyticus [facility] Work Phone: .GFRon 12-26-2023 GFR 75 ml/min/1.73sqm Normal [facility] ([place]) Comment on above: Result Comment: GFR Population [...] #### T SH, GFR, CMP, FT4 #### [address] [address] GFR Non- 62 ml/min/1.73sqm Normal [facility] ([place] Comment on above: Result Comment: GFR Population [...] #### T SH, GFR, CMP, FT4 #### [address] [address] CMPon 12-26-2023 Albumin Level 3.4 G/dL Low 3.5-5.0 [facility] ([place] Comment on above: Performed By: #### T SH, GFR, CMP, FT4 #### [address] [address] Albumin/Globulin [Mass ratio] 0.9 {ratio} Low 1.1-2.5 [facility] ([place] Comment on above: Performed By: #### T SH, GFR, CMP, FT4 #### [address] [address] ALP [Catalytic activity/Vol] 87 U/L Normal 40-135 [facility] ([place] Comment on above: Performed By: #### T SH, GFR, CMP, FT4 #### [address] [address] ALT [Catalytic activity/Vol] 42 U/L Normal 14-59 [facility] ([place] Comment on above: Performed By: #### T SH, GFR, CMP, FT4 #### [address] [address] AST [Catalytic activity/Vol] 18 U/L Normal 10-40 [facility] ([place] Comment on above: Performed By: #### T SH, GFR, CMP, FT4 #### [address] [address] Bili Total 0.4 mg/dL Normal 0.2-1.0 [facility] ([place] Comment on above: Result Comment: Use of this assay is not recommended for patients undergoing treatment with eltrombopag due to the potential for falsely elevated results. Performed By: #### T SH, GFR, CMP, FT4 #### [address] [address] BUN/Creatinine Ratio 20 ratio Normal 7-27 [facility] ([place] Comment on above: Performed By: #### T SH, GFR, CMP, FT4 #### [address] [address] Calcium [Mass/Vol] 9.0 mg/dL Normal 8.4-10.2 [facility] ([place] Comment on above: Performed By: #### T SH, GFR, CMP, FT4 #### [address] [address] Chloride [Moles/Vol] 104 mmol/L Normal 98-107 [facility] ([place] Comment on above: Performed By: #### T SH, GFR, CMP, FT4 #### [address] [address] CO2 [Moles/Vol] 26 mmol/L Normal 22-29 [facility] ([place] Comment on above: Performed By: #### T SH, GFR, CMP, FT4 #### [address] [address] Creatinine [Mass/Vol] 0.93 mg/dL Normal 0.55-1.02 [facility] ([place] Comment on above: Performed By: #### T SH, GFR, CMP, FT4 #### [address] [address] Electrolyte Balance 13.0 mEq/L Normal 4.0-15.0 Replaced by [facility] ([place] Comment on above: Performed By: #### T SH, GFR, CMP, FT4 #### [address] [address] Globulin 3.6 G/dL Normal [facility] ([place] Comment on above: Performed By: #### T SH, GFR, CMP, FT4 #### [address] [address] Glucose [Mass/Vol] 246 mg/dL High 70-105 [facility] ([place] Comment on above: Performed By: #### T SH, GFR, CMP, FT4 #### [address] [address] Potassium [Moles/Vol] 4.4 mmol/L Normal 3.5-5.1 [facility] ([place] Comment on above: Performed By: #### T SH, GFR, CMP, FT4 #### [address] [address] Sodium [Moles/Vol] 143 mmol/L Normal 136-145 [facility] ([place] Comment on above: Performed By: #### T SH, GFR, CMP, FT4 #### [address] [address] Total Protein 7.0 G/dL Normal 6.4-8.2 [facility] ([place] Comment on above: Performed By: #### T SH, GFR, CMP, FT4 #### [address] [address] Urea nitrogen [Mass/Vol] 19 mg/dL High 7-18 [facility] ([place] Comment on above: Performed By: #### T SH, GFR, CMP, FT4 #### [address] [address] FT4on 12-26-2023 Free T4 [Mass/Vol] 0.74 ng/dL Low 0.76-1.46 [facility] ([place] Comment on above: Performed By: #### T SH, GFR, CMP, FT4 #### [address] [address] LABORATORYOrdered By: SYSTEM SYSTEM on 12-26-2023 Albumin [...] 12-26-2023 TSH Qn 2.46 m[IU]/L Normal 0.36-3.74 [facility] ([place]) Comment on above: Performed By: #### T SH, GFR, CMP, FT4 #### [place] [address] [place], [place] [address] CT SPINE CERVICAL W/O CONTRA STon 11-07-2023 [...] 11/07/2023 5:35:06 PM Ordering Provider: PIPER Nelson [facility] ([place]) [place] MAMMOGRAM SCREENING BILAT ERAL W/TOMOon 10-28-2023 MA MAMMOGRAM SCREENING BILATERAL W/KARI ORIGINAL FROM: [address] [address] PROCEDURE FOR: CHRISSY LAY [address] [address] Home: PID#: [id number] Exam#: [id number] : 1965 Age: 58 TO: CHANTALE RAMSEY APRN [address] [address] Fax: NO FAX EXAMINATION: SCREENING DIGITAL BILATERAL [...] a breast ultrasound could be performed. Rudy Baltazar risk calculations, generated with the history provided, [...] addition to annual mammographic screening per the [employer]. BIRADS: MAMMOGRAM BI-RADS: 2: Benign finding RECALL: 1 year screening RECALL TYPE: mammo LETTER SENT: Normal BI-RADS 1 and 2 Interpreted by: Glenis Banuelos Preliminary Report By: Glenis Banuelos Electronically signed By Glenis Banuelos Dictated Date: 10/28/2023 3:42:07 PM Prelim Date: 10/28/2023 3:48:35 PM Sign Date: 10/28/2023 3:48:35 PM Ordering Provider: CHANTALE RAMSEY Truck Rental Clerk: JANIYA ALARCON RT (R)(M) letter sent: Normal BI-RADS 1 and 2 Mammogram BI-RADS: 2 Benign Normal [facility]) FT4on 09-26-2023 Free T4 [Mass/Vol] 0.65 ng/dL Low 0.76-1.46 [facility] ([place] Comment on above: Performed By: #### T SH, GFR, CMP, FT4 #### [address] [address] [facility] U Creatinine 23.2 mg/dL Low 28.0-117.0 [facility] ([place]) Comment on above: Performed By: #### T SH, GFR, CMP, FT4 #### [address] [address] U Microalb <130 Normal [facility] ([place] Comment on above: Performed By: #### T SH, GFR, CMP, FT4 #### [address] [address] U Ratio Alb/Cre Unable to Calculate Normal 0-30 [facility] ([place] Comment on above: Result Comment: Unab le to calculate this test result accurately. Results used to calculate this test are outside the reportable range. Performed By: #### T SH, GFR, CMP, FT4 #### [address] [address] TSHon 09-26-2023 TSH Qn 2.24 m[IU]/L Normal 0.36-3.74 [facility] ([place]) Comment on above: Performed By: #### T SH, GFR, CMP, FT4 #### [address] [address] .Auto Diffon 09-25-2023 Basophil, Absolute 0.1 10 3/mcL Normal 0.0-0.2 [facility] ([place] Comment on above: Performed By: #### T SH, GFR, CMP, FT4 #### [address] [address] Basophils/100 WBC (Bld) 1.0 % Normal 0.0-2.5 [facility] ([place] Comment on above: Performed By: #### T SH, GFR, CMP, FT4 #### [address] [address] Eosinophil, Absolute 0.3 10 3/mcL Normal 0.0-0.4 [facility] ([place] Comment on above: Performed By: #### T SH, GFR, CMP, FT4 #### [address] [address] Eosinophils/100 WBC (Bld) 4.5 % Normal 0.0-7.0 [facility] ([place] Comment on above: Performed By: #### T SH, GFR, CMP, FT4 #### [address] [address] Lymphocyte, Absolute 2.5 10 3/mcL Normal 0.8-3.9 [facility] ([place] Comment on above: Performed By: #### T SH, GFR, CMP, FT4 #### [address] [address] Lymphocytes/100 WBC (Bld) 44.2 % Normal 10.0-50.0 [facility] ([place] Comment on above: Performed By: #### T SH, GFR, CMP, FT4 #### [address] [address] Monocyte, Absolute 0.4 10 3/mcL Normal 0.2-1.0 [facility] ([place] Comment on above: Performed By: #### T SH, GFR, CMP, FT4 #### [address] [address] Monocytes/100 WBC (Bld) 7.1 % Normal 1.7-13.0 [facility] ([place] Comment on above: Performed By: #### T SH, GFR, CMP, FT4 #### [address] [address] Neutrophils/100 WBC (Bld) 43.2 % Normal 37.0-80.0 [facility] ([place] Comment on above: Performed By: #### T SH, GFR, CMP, FT4 #### [address] [address] .GFRon 09-25-2023 GFR 110 ml/min/1.73sqm Normal [facility] ([place] Comment on above: Result Comment: GFR Population [...] #### T SH, GFR, CMP, FT4 #### [address] [address] GFR Non- 91 ml/min/1.73sqm Normal [facility] ([place] Comment on above: Result Comment: GFR Population [...] #### T SH, GFR, CMP, FT4 #### [address] [address] .NEUABSon 09-25-2023 Neutrophil, Absolute 2.5 10 3/mcL Low 2.9-6.2 [facility] ([place] Comment on above: Performed By: #### T SH, GFR, CMP, FT4 #### [address] [address] A1Con 09-25-2023 HbA1c (Bld) [Mass fraction] 9.0 % High 4.3-6.4 [facility] ([place] Comment on above: Performed By: #### T SH, GFR, CMP, FT4 #### [address] [address] CBCon 09-25-2023 Erythrocyte distribution width (RBC) [Ratio] 12.9 % Normal 11.5-14.5 [facility] ([place] Comment on above: Performed By: #### T SH, GFR, CMP, FT4 #### [address] [address] Hematocrit (Bld) [Volume fraction] 41.1 % Normal 37.0-47.0 [facility] ([place] Comment on above: Performed By: #### T SH, GFR, CMP, FT4 #### [address] [address] Hgb 13.9 G/dL Normal 12.0-16.0 [facility] ([place] Comment on above: Performed By: #### T SH, GFR, CMP, FT4 #### [address] [address] MCH (RBC) [Entitic mass] 30.7 pg Normal 27.0-31.2 [facility] ([place] Comment on above: Performed By: #### T SH, GFR, CMP, FT4 #### [place] [address] MCHC 34.0 G/dL Normal 33.0-37.0 [facility] ([place] Comment on above: Performed By: #### T SH, GFR, CMP, FT4 #### [address] [address] MCV (RBC) [Entitic vol] 90.4 fL Normal 80.0-94.0 [facility] ([place] Comment on above: Performed By: #### T SH, GFR, CMP, FT4 #### [address] [address] Platelet 366 10 3/mcL Normal 130-400 [facility] ([place] Comment on above: Performed By: #### T SH, GFR, CMP, FT4 #### [address] [address] Platelet mean volume (Bld) [Entitic vol] 6.8 fL Low 7.4-10.4 [facility] ([place] Comment on above: Performed By: #### T SH, GFR, CMP, FT4 #### [address] [address] RBC 4.54 10 6/mcL Normal 4.20-5.40 [facility] ([place] Comment on above: Performed By: #### T SH, GFR, CMP, FT4 #### [address] [address] WBC 5.7 10 3/mcL Normal 4.6-10.8 [facility] ([place] Comment on above: Performed By: #### T SH, GFR, CMP, FT4 #### [address] [address] CMPon 09-25-2023 Albumin Level 3.3 G/dL Low 3.5-5.0 [facility] ([place] Comment on above: Performed By: #### T SH, GFR, CMP, FT4 #### [address] [address] Albumin/Globulin [Mass ratio] 0.9 {ratio} Low 1.1-2.5 [facility] ([place] Comment on above: Performed By: #### T SH, GFR, CMP, FT4 #### [address] [address] ALP [Catalytic activity/Vol] 135 U/L Normal 40-135 [facility] ([place] Comment on above: Performed By: #### T SH, GFR, CMP, FT4 #### [address] [address] ALT [Catalytic activity/Vol] 70 U/L High 14-59 [facility] ([place] Comment on above: Performed By: #### T SH, GFR, CMP, FT4 #### [address] [address] AST [Catalytic activity/Vol] 56 U/L High 10-40 [facility] ([place] Comment on [place]: Performed By: #### T SH, GFR, CMP, FT4 #### [address] [address] Bili Total 0.2 mg/dL Normal 0.2-1.0 [facility] [place] Comment [place]: Result Comment: Use of this assay is not recommended for patients undergoing treatment with eltrombopag due to the potential for falsely elevated results. Performed By: #### T SH, GFR, CMP, FT4 #### [address] [address] BUN/Creatinine Ratio 19 ratio Normal 7-27 [facility] ([place] Comment [place]: Performed By: #### T SH, GFR, CMP, FT4 #### [address] [address] Calcium [Mass/Vol] 8.9 mg/dL Normal 8.4-10.2 [facility] ([place] Comment on [place]: Performed By: #### T SH, GFR, CMP, FT4 #### [address] [address] Chloride [Moles/Vol] 104 mmol/L Normal 98-107 [facility] ([place] Comment [place] above: Performed By: #### T SH, GFR, CMP, FT4 #### [address] [address] CO2 [Moles/Vol] 30 mmol/L High 22-29 [facility] ([place] Comment [place]: Performed By: #### T SH, GFR, CMP, FT4 #### [address] [address] Creatinine [Mass/Vol] 0.67 mg/dL Normal 0.55-1.02 [facility] ([place] Comment on [place]: Performed By: #### T SH, GFR, CMP, FT4 #### [address] [address] Electrolyte Balance 7.0 mEq/L Normal 4.0-15.0 Replaced by [facility] [place] Comment [place] above: Performed By: #### T SH, GFR, CMP, FT4 #### [address] [address] Globulin 3.7 G/dL Normal [facility] [place] Comment on above: Performed By: #### T SH, GFR, CMP, FT4 #### [address] [address] Glucose [Mass/Vol] 146 mg/dL High 70-105 [facility] ([place] Comment on above: Performed By: #### T SH, GFR, CMP, FT4 #### [address] [address] Potassium [Moles/Vol] 4.5 mmol/L Normal 3.5-5.1 [facility] ([place] Comment on above: Performed By: #### T SH, GFR, CMP, FT4 #### [address] [address] Sodium [Moles/Vol] 141 mmol/L Normal 136-145 [facility] ([place] Comment on above: Performed By: #### T SH, GFR, CMP, FT4 #### [address] [address] Total Protein 7.0 G/dL Normal 6.4-8.2 [facility] ([place] Comment on above: Performed By: #### T SH, GFR, CMP, FT4 #### [address] [address] Urea nitrogen [Mass/Vol] 13 mg/dL Normal 7-18 [facility] ([place] Comment on above: Performed By: #### T SH, GFR, CMP, FT4 #### [address] [address] LIPIDon 09-25-2023 Cholesterol [Mass/Vol] 236 mg/dL High 0-200 [facility] ([place] Comment on [place]: Result Comment: Chol esterol Reference Interval: Less than 200 Desirable 200-239 Borderline high risk 240 and above High risk Performed By: #### T SH, GFR, CMP, FT4 #### [address] [address] Cholesterol in HDL [Mass/Vol] 60 mg/dL Normal 40-60 [facility] ([place] Comment on above: Performed By: #### T SH, GFR, CMP, FT4 #### [address] [address] Cholesterol in LDL [Mass/Vol] 107 mg/dL Normal 0-130 [facility] ([place] Comment [place] above: Performed By: #### T SH, GFR, CMP, FT4 #### [address] [address] Triglyceride [Mass/Vol] 346 mg/dL High 0-150 [facility] ([place] Comment on above: Result Comment: Trig lyceride Reference Interval: Less than 150 Normal 150-199 Borderline high risk 200-499 High risk 500 or higher Very high risk Performed By: #### T SH, GFR, CMP, FT4 #### Marybeth Pepe [address] [place], [place] [address] MGon 09-25-2023 Magnesium [Mass/Vol] 1.6 mg/dL Low 1.8-2.4 [facility] ([place] Comment [place] above: Performed By: #### T SH, GFR, CMP, FT4 #### Marybeth Kiester [address] [place], [place] [address] MRI BRAIN W/O CONTRASTon MRI BRAIN W/O [...] 4:41:57 PM Ordering Provider: CHANTALE RAMSEY Normal [facility] ([place] .Urinalysis Microscopic (AO) on 07-25-2023 UA Bacteria 2+ /hpf Abnormal [facility] ([place] Comment on above: Performed By: #### U AMICAO, UA #### [facility] [address] [place], [place] [address] UA Mucous 1+ /hpf Normal [facility] ([place] Comment on above: Performed By: #### U AMICAO, UA #### Marybeth Kiester [address] [place], [place] [address] UA RBC 0-5 Abnormal None Seen [facility] [place] Comment on [place]: Performed By: #### U AMICAO, UA #### [place] [address] [place], [place] [address] UA Squam Epithelial 0-5 Abnormal None Seen Replaced by [facility] [place] Comment on above: Performed By: #### U AMICAO, UA #### [place] [address] [place], [place] [address] UA WBC LOADED Abnormal None Seen [facility] ([place] Comment on above: Performed By: #### U AMICAO, UA #### [address] [address] LABORATORYOrdered By: Felicia Noe on 07-25-2023 Appearance [...] (e.g., nitrofurantoin, fluoroquinolone, or trimethoprim +/- sulfamethoxazole). [facility] Work Phone: Staphylococcus saprophyticus Staphylococcus saprophyticus [facility] Work Phone: UAon 07-25-2023 Color (U) Yellow Normal [facility] ([place]) Comment on above: Performed By: #### U AMICAO, UA #### [address] [address] Glucose (U) [Mass/Vol] Negative Normal Negative [facility] ([place]) Comment on above: Performed By: #### U AMICAO, UA #### [place] [address] [place], [place] [address] Ketones Ql (U) Trace Abnormal Negative [facility] ([place] Comment on above: Performed By: #### U AMICAO, UA #### [place] [address] [place], [place] [address] UA Appear Slightly Cloudy Abnormal Clear [facility] ([place] Comment on above: Performed By: #### U AMICAO, UA #### [address] [address] UA Blood Trace Abnormal Negative [facility] ([place] Comment [place] above: Performed By: #### U AMICAO, UA #### Marybeth [address] [address] UA Leuk Est Trace Abnormal Negative [facility] ([place] Comment [place] above: Performed By: #### U AMICAO, UA #### Marybeth [address] [address] UA Nitrite Negative Normal Negative [facility] ([place] Comment on above: Performed By: #### U AMICAO, UA #### [place] [address] UA pH 7.0 Normal 5.0 - 8.0 [facility] ([place] Comment on above: Performed By: #### U AMICAO, UA #### [place] [address] UA Protein 100 mg/dL Abnormal Negative [facility] ([place] Comment on above: Performed By: #### U AMICAO, UA #### [address] [address] UA Spec Grav 1.025 Normal 1.015-1.025 [facility] ([place] Comment on above: Performed By: #### U AMICAO, UA #### [address] [address] UA Specimen Type Clean Catch Normal [facility] ([place] Comment on above: Performed By: #### U AMICAO, UA #### [address] [address] UA Urobilinogen 0.2 E.U./dL Normal 0.2-1.0 [facility] ([place] Comment on above: Performed By: #### U AMICAO, UA #### Marybeth [address] [address] Urobilinogen (U) [Mass/Vol] Negative Normal Negative [facility] ([place] Comment on above: Performed By: #### U AMICAO, UA #### [address] [address] OVAPon 05-19-2023 Ova & Parasite exam See Below Normal Replaced by [facility] [place] Comment on above: Result Comment: OVA AND PARASITE EXAM No Parasites Seen SOURCE: FECES Performed By: [facility] [address] [place] [address] Lacrosse Coach: Lemuel Quan III, M.D. CLIA#: [id number] Performed By: #### T SH, GFR, CMP, FT4 #### [address] [address] .Auto Diffon 04-29-2023 Basophil, Absolute 0.1 10 3/mcL Normal 0.0-0.2 [facility] ([place] Comment on above: Performed By: #### P BNP, BMP, ANEU, GFR, ADIFF, CBC #### [address] [address] Basophils/100 WBC (Bld) 0.6 % Normal 0.0-2.5 [facility] ([place] Comment on above: Performed By: #### P BNP, BMP, ANEU, GFR, ADIFF, CBC #### [address] [address] Eosinophil, Absolute 0.3 10 3/mcL Normal 0.0-0.4 [facility] ([place] Comment on above: Performed By: #### P BNP, BMP, ANEU, GFR, ADIFF, CBC #### [address] [address] Eosinophils/100 WBC (Bld) 2.7 % Normal 0.0-7.0 [facility] ([place] Comment on above: Performed By: #### P BNP, BMP, ANEU, GFR, ADIFF, CBC #### [address] [address] Lymphocyte, Absolute 2.7 10 3/mcL Normal 0.8-3.9 [facility] ([place] Comment on above: Performed By: #### P BNP, BMP, ANEU, GFR, ADIFF, CBC #### [address] [address] Lymphocytes/100 WBC (Bld) 29.5 % Normal 10.0-50.0 [facility] ([place] Comment on above: Performed By: #### P BNP, BMP, ANEU, GFR, ADIFF, CBC #### [address] [address] Monocyte, Absolute 0.7 10 3/mcL Normal 0.2-1.0 [facility] ([place] Comment on above: Performed By: #### P BNP, BMP, ANEU, GFR, ADIFF, CBC #### [address] [address] Monocytes/100 WBC (Bld) 7.2 % Normal 1.7-13.0 [facility] ([place] Comment on above: Performed By: #### P BNP, BMP, ANEU, GFR, ADIFF, CBC #### [address] [address] Neutrophils/100 WBC (Bld) 60.0 % Normal 37.0-80.0 [facility] ([place] Comment on above: Performed By: #### P BNP, BMP, ANEU, GFR, ADIFF, CBC #### [address] [address] .GFRon 04-29-2023 GFR Non- 82 ml/min/1.73sqm Normal [facility] ([place] Comment on above: Result Comment: GFR Population [...] #### T SH, GFR, CMP, FT4 #### [address] [address] GFR 100 ml/min/1.73sqm Normal [facility] ([place] Comment on above: Result Comment: GFR Population [...] #### T SH, GFR, CMP, FT4 #### [address] [address] .NEUABSon 04-29-2023 Neutrophil, Absolute 5.6 10 3/mcL Normal 2.9-6.2 [facility] ([place] Comment on above: Performed By: #### P BNP, BMP, ANEU, GFR, ADIFF, CBC #### [address] [address] BMPon 04-29-2023 BUN/Creatinine Ratio 25 ratio Normal 7-27 [facility] ([place] Comment on above: Performed By: #### T SH, GFR, CMP, FT4 #### [address] [address] Calcium [Mass/Vol] 9.5 mg/dL Normal 8.4-10.2 [facility] ([place] Comment on above: Performed By: #### T SH, GFR, CMP, FT4 #### [address] [address] Chloride [Moles/Vol] 103 mmol/L Normal 98-107 [facility] ([place] Comment on above: Performed By: #### T SH, GFR, CMP, FT4 #### [address] [address] CO2 [Moles/Vol] 29 mmol/L Normal 22-29 [facility] ([place] Comment on above: Performed By: #### T SH, GFR, CMP, FT4 #### [address] [address] Creatinine [Mass/Vol] 0.73 mg/dL Normal 0.55-1.02 [facility] ([place] Comment on above: Performed By: #### T SH, GFR, CMP, FT4 #### [address] [address] Electrolyte Balance 9.0 mEq/L Normal 4.0-15.0 Replaced by [facility] [place] Comment on above: Performed By: #### T SH, GFR, CMP, FT4 #### [address] [address] Glucose [Mass/Vol] 164 mg/dL High 70-105 [facility] ([place] Comment on above: Performed By: #### T SH, GFR, CMP, FT4 #### [address] [address] Potassium [Moles/Vol] 4.6 mmol/L Normal 3.5-5.1 [facility] ([place] Comment on above: Performed By: #### T SH, GFR, CMP, FT4 #### [address] [address] Sodium [Moles/Vol] 141 mmol/L Normal 136-145 [facility] ([place] Comment [place] above: Performed By: #### T SH, GFR, CMP, FT4 #### [address] [address] Urea nitrogen [Mass/Vol] 18 mg/dL Normal 7-18 [facility] ([place] Comment on above: Performed By: #### T SH, GFR, CMP, FT4 #### [address] [address] CBCon 04-29-2023 Erythrocyte distribution width (RBC) [Ratio] 13.3 % Normal 11.5-14.5 [facility] ([place] Comment on above: Performed By: #### P BNP, BMP, ANEU, GFR, ADIFF, CBC #### [address] [address] Hematocrit (Bld) [Volume fraction] 37.3 % Normal 37.0-47.0 [facility] ([place] Comment on above: Performed By: #### P BNP, BMP, ANEU, GFR, ADIFF, CBC #### [place] [address] Hgb 12.6 G/dL Normal 12.0-16.0 [facility] ([place] Comment on above: Performed By: #### P BNP, BMP, ANEU, GFR, ADIFF, CBC #### [address] [address] MCH (RBC) [Entitic mass] 30.1 pg Normal 27.0-31.2 [facility] ([place] Comment on above: Performed By: #### P BNP, BMP, ANEU, GFR, ADIFF, CBC #### [address] [address] MCHC 33.7 G/dL Normal 33.0-37.0 [facility] ([place] Comment on above: Performed By: #### P BNP, BMP, ANEU, GFR, ADIFF, CBC #### [address] [address] MCV (RBC) [Entitic vol] 89.3 fL Normal 80.0-94.0 [facility] ([place] Comment on above: Performed By: #### P BNP, BMP, ANEU, GFR, ADIFF, CBC #### [address] [address] Platelet 405 10 3/mcL High 130-400 [facility] ([place] Comment on above: Performed By: #### P BNP, BMP, ANEU, GFR, ADIFF, CBC #### [place] [id number] Platelet mean volume (Bld) [Entitic vol] 6.8 fL Low 7.4-10.4 [facility] ([place] Comment on above: Performed By: #### P BNP, BMP, ANEU, GFR, ADIFF, CBC #### [address] [address] RBC 4.18 10 6/mcL Low 4.20-5.40 [facility] ([place] Comment on above: Performed By: #### P BNP, BMP, ANEU, GFR, ADIFF, CBC #### [address] [address] WBC 9.3 10 3/mcL Normal 4.6-10.8 [facility] ([place] Comment on above: Performed By: #### P BNP, BMP, ANEU, GFR, ADIFF, CBC #### [address] [address] PBNPon 04-29-2023 Natriuretic peptide B (Bld) [Mass/Vol] 73 pg/mL Normal 0-125 [facility] ([place] Comment on above: Result Comment: NT-p roBNP results of less than 300 pg/mL effectively rules out acute congestive heart failure with 99% negative predictive value. Performed By: #### T SH, GFR, CMP, FT4 #### [address] [address] LABORATORYOrdered By: Edgardo Oliveros on 02-18-2023 HIV 1 p24 Ab Ql (S) Non-Reactive 2 (02/18/23 4:08 PM) Invalid Interpretation Code Non-Reactiv e AO Rapid Testing Comment on above: Interpretive Data: D etection [...] 4:07 PM) Invalid Interpretation Code Non-Reactiv e DONNA Chong Viro[facility]Sero SS Comment on above: Interpretive Data: [...] width (RBC) [Ratio] 13.1 % Normal 11.5-15.0 [facility] Comment on above: Order Comment: Speci men Type: BLOOD SPECIMENOrdering Facility: [facility] Address: [address] [place] [address] Performed By: #### 5 8410-2 ####[facility] LABORATORYCLIA [id number] [address] [place] Hematocrit (Bld) [Volume fraction] 34.4 % Low 36.0-46.0 [facility] Comment on above: Order Comment: Speci men Type: BLOOD SPECIMENOrdering Facility: [facility] Address: [address] [place] [address] Performed By: #### 5 8410-2 ####[facility] LABORATORYCLIA [id number] [place] [address] [place] Hemoglobin (Bld) [Mass/Vol] 11.1 g/dL Low 11.5-15.5 [facility] Comment on above: Order Comment: Speci men Type: BLOOD SPECIMENOrdering Facility: [facility] Address: [address] [place] [address] Performed By: #### 5 8410-2 ####[facility] LABORATORYCLIA [id number] [place] [address] [place] MCH (RBC) [Entitic mass] 31.3 pg Normal 26.0-34.0 [facility] Comment on above: Order Comment: Speci men Type: BLOOD SPECIMENOrdering Facility: [facility] Address: [address] [place] [address] Performed By: #### 5 8410-2 ####[facility] LABORATORYCLIA [id number] [address] [place] MCHC (RBC) [Mass/Vol] 32.3 g/dL Normal 30.5-36.0 [facility] Comment on above: Order Comment: Speci men Type: BLOOD SPECIMENOrdering Facility: [facility] Address: [address] [place] [address] Performed By: #### 5 8410-2 ####[facility] LABORATORYCLIA [id number] [place] [address] [place] MCV (RBC) [Entitic vol] 96.9 fL Normal 80.0-100.0 [facility] Comment on above: Order Comment: Speci men Type: BLOOD SPECIMENOrdering Facility: [facility] Address: [address] [place] [address] Performed By: #### 5 8410-2 ####[facility] LABORATORYCLIA [id number] [place] [address] [place] Nucleated RBC (Bld) [#/Vol] 10*3/uL Normal <0.01 [facility] Comment on above: Order Comment: Speci men Type: BLOOD SPECIMENOrdering Facility: [facility] Address: [address] [place] [address] Performed By: #### 5 8410-2 ####[facility] LABORATORYCLIA [id number] [place] [address] [place] Platelet mean volume (Bld) [Entitic vol] 8.9 fL Low 9.0-12.7 [facility] Comment on above: Order Comment: Speci men Type: BLOOD SPECIMENOrdering Facility: [facility] Address: [address] [place] [address] Performed By: #### 5 8410-2 ####[facility] LABORATORYCLIA [id number] [place] [address] [place] Platelets (Bld) [#/Vol] 248 10*3/uL Normal 150-400 [facility] Comment on above: Order Comment: Speci abby Type: BLOOD SPECIMENOrdering Facility: [facility] Address: [address] [place] [address] Performed By: #### 5 8410-2 ####[facility] LABORATORYCLIA [id number] [place] [address] [place] RBC (Bld) [#/Vol] 3.55 10*6/uL Low 3.90-5.20 [facility] Comment on above: Order Comment: Speci men Type: BLOOD SPECIMENOrdering Facility: [facility] Address: [address] [place] [address] Performed By: #### 5 8410-2 ####[facility] LABORATORYCLIA [id number] [address] [place] WBC (Bld) [#/Vol] 6.35 10*3/uL Normal 3.70-11.00 [facility] Comment on above: Order Comment: Speci men Type: BLOOD SPECIMENOrdering Facility: [facility] Address: [address] [place] [address] Performed By: #### 5 8410-2 ####[facility] LABORATORYCLIA [id number] [address] [place] CNDSon 11-01-2022 CNDS HNO ID: [id number] Author: Sloan Mujica MD Service: General Internal [...] Hospital: FOLLOW-UP APPOINTMENTS ALREADY SCHEDULED WITH A [facility] PROVIDER No future appointments. DISCHARGE MEDICATION: Current [...] OROPHARYNX: M (more content not included)... Normal [facility] Comprehensive metabolic 2000 panelon 11-01-2022 Albumin [Mass/Vol] 3.0 g/dL Low 3.9-4.9 [facility] Comment on above: Order Comment: Speci men Type: BLOOD SPECIMENOrdering Facility: [facility] Address: [address] [place] [address] Performed By: #### 2 4323-8 ####[facility] LABORATORYCLIA [id number] [place] [address] [place] ALP [Catalytic activity/Vol] 73 U/L Normal 34-123 [facility] Comment on above: Order Comment: Speci men Type: BLOOD SPECIMENOrdering Facility: [facility] Address: [address] [address] Performed By: #### 2 4323-8 ####[facility] LABORATORYCLIA [id number] [place] [address] [place] ALT [Catalytic activity/Vol] 33 U/L Normal 7-38 [facility] Comment on above: Order Comment: Speci men Type: BLOOD SPECIMENOrdering Facility: [facility] Address: [address] [place] [address] Performed By: #### 2 4323-8 ####[facility] LABORATORYCLIA [id number] [place] [address] [place] Anion gap [Moles/Vol] 12 mmol/L Normal 9-18 [facility] Comment on above: Order Comment: Speci men Type: BLOOD SPECIMENOrdering Facility: [facility] Address: [address] [address] Performed By: #### 2 4323-8 ####[facility]ORATORYCLIA [id number] [place] [address] [place] AST [Catalytic activity/Vol] 33 U/L Normal 13-35 [facility] Comment on above: Order Comment: Speci men Type: BLOOD SPECIMENOrdering Facility: [facility] Address: [address] [place] [address] Performed By: #### 2 4323-8 ####[facility] LABORATORYCLIA [id number] [place] [address] [place] Bilirubin [Mass/Vol] 0.2 mg/dL Normal 0.2-1.3 [facility] Comment on above: Order Comment: Speci men Type: BLOOD SPECIMENOrdering Facility: [facility] Address: [address] [place] [address] Performed By: #### 2 4323-8 ####[facility]ORATORYCLIA [id number] [place] [address] [place] Calcium [Mass/Vol] 8.3 mg/dL Low 8.5-10.2 [facility] Comment on above: Order Comment: Speci men Type: BLOOD SPECIMENOrdering Facility: [facility] Address: [address] [place] [address] Performed By: #### 2 4323-8 ####[facility] LABORATORYCLIA [id number] [place] [address] [place] Chloride [Moles/Vol] 110 mmol/L High 97-105 [facility] Comment on above: Order Comment: Speci men Type: BLOOD SPECIMENOrdering Facility: [facility] Address: [address] [place] [address] Performed By: #### 2 4323-8 ####[facility] LABORATORYCLIA [id number] [place] [address] [place] CO2 [Moles/Vol] 19 mmol/L Low 22-30 [facility] Comment on above: Order Comment: Speci men Type: BLOOD SPECIMENOrdering Facility: [facility] Address: [address] [address] Performed By: #### 2 4323-8 ####[facility] LABORATORYCLIA [id number] [place] [address] [place] Creatinine [Mass/Vol] 0.83 mg/dL Normal 0.58-0.96 [facility] Comment on above: Order Comment: Speci men Type: BLOOD SPECIMENOrdering Facility: [facility] Address: [address] [place] [address] Performed By: #### 2 4323-8 ####[facility] LABORATORYCLIA [id number] [place] [address] [place] ESTIMATED GLOMERULAR FILTRATION RATE 83 mL/min/1.73m??? Normal >=60 [facility] Comment on above: Order Comment: [place] abby Type: BLOOD SPECIMENOrdering Facility: [facility] Address: [address] [place] [address] Result Comment: [facility] Glomerular Filtration Rate (eGFR) is calculated using [...] actual GFR. Performed By: #### 2 4323-8 ####[facility] LABORATORYCLIA [id number] [place] [address] [place] Glucose [Mass/Vol] 117 mg/dL High 74-99 [facility] Comment on above: Order Comment: Van mora Type: BLOOD SPECIMENOrdering Facility: [facility] Address: [address] [place] [address] Result Comment: The [place] Diabetes Association (ADA) provides guidance for cutoff [...] Standards of Medical Care in Diabetes 2016, [place] [employer] Association. Diabetes Care. 2016.39(Suppl 1). Performed By: #### 2 4323-8 ####[facility] LABORATORYCLIA [id number] [place] [address] [place] Potassium [Moles/Vol] 3.3 mmol/L Low 3.7-5.1 [facility] Comment on above: Order Comment: Speci men Type: BLOOD SPECIMENOrdering Facility: [facility] Address: [address] [address] Performed By: #### 2 4323-8 ####[facility]ORATORYCLIA [id number] [place] [address] [place] Protein [Mass/Vol] 5.4 g/dL Low 6.3-8.0 [facility] Comment on above: Order Comment: Speci men Type: BLOOD SPECIMENOrdering Facility: [facility] Address: [address] [address] Performed By: #### 2 4323-8 ####[facility] LABORATORYCLIA [id number] [place] [address] [place] Sodium [Moles/Vol] 141 mmol/L Normal 136-144 [facility] Comment on above: Order Comment: Speci men Type: BLOOD SPECIMENOrdering Facility: [facility] Address: [address] [address] Performed By: #### 2 4323-8 ####[facility] LABORATORYCLIA [id number] [place] [address] [place] Urea nitrogen [Mass/Vol] 11 mg/dL Normal 7-21 [facility] Comment on above: Order Comment: Speci men Type: BLOOD SPECIMENOrdering Facility: [facility] Address: [address] [address] Performed By: #### 2 4323-8 ####[facility]ORATORYCLIA [id number] [place] [address] [place] POTASSIUM BLDon 11-01-2022 Potassium [Moles/Vol] 3.8 mmol/L Normal 3.7-5.1 [facility] Comment on above: Order Comment: Speci men Type: BLOOD SPECIMENOrdering Facility: [facility] Address: [address] [address] Performed By: #### K 1 ####[facility] LABORATORYCLIA [id number] [place] [id number] [facility] ALLIED HEALTHon 10-31-2022 ALLIED HEALTH HNO ID: [id number] Author: [place] Service: ? Author Type: Fire Prevention Research Engineer Type: Allied Health Filed: 10/31/2022 6:17 AM [...] [place] October 31, 2022 6:17 AM [facility] CASE MGT INIT ASSESon 2022 CASE MGT INIT [facility] HNO ID: [id number] Author: Shama Carnes RN Service: ? Author Type: Registered Nurse Type: Care Mgt Initial Assessment Filed: 10/31/2022 3:31 PM Note Text: CARE MANAGEMENT: ASSESSMENT AND DISCHARGE PLAN SERVICE DATE: October 31, 2022 SERVICE TIME: 3:23 PM PRIMARY CARE PHYSICIAN: CHANTALE RAMSEY APRN.TRUST MANAGER Phone: None Primary Contact: Extended Emergency Contact Information Primary Emergency Contact: Andry Laye Address: [address] [place] [id number] Mobile Relation: Ex Spouse ADMISSION STATUS: Inpatient Insurance Provider: [facility] MEDICAID NEEDS PRIOR TO DISCHARGE POTENTIAL TRANSITION [...] 31, 2022 TIME: 3:23 PM CONTACT #: [phone] Normal [facility] CBC panel Auto (Bld)on 10-31 Erythrocyte distribution width (RBC) [Ratio] 12.7 % Normal 11.5-15.0 [facility] Comment on above: Order Comment: Van mora Type: BLOOD SPECIMEN Ordering Facility: [facility] Address: [address] [place] [address] Performed By: #### 5 8410-2 #### [facility] CLIA [id number] [address] [place] [address] [place] Hematocrit (Bld) [Volume fraction] 36.9 % Normal 36.0-46.0 [facility] Comment on above: Order Comment: Van mora Type: BLOOD SPECIMEN Ordering Facility: [facility] Address: [address] [place] [address] Performed By: #### 5 8410-2 #### [facility] CLIA [id number] [address] [place] [address] [place] Hemoglobin (Bld) [Mass/Vol] 12.4 g/dL Normal 11.5-15.5 [facility] Comment on above: Order Comment: Van mora Type: BLOOD SPECIMEN Ordering Facility: [facility] Address: [address] [address] Performed By: #### 5 8410-2 #### [facility] CLIA [id number] [address] [place] [address] [place] MCH (RBC) [Entitic mass] 31.9 pg Normal 26.0-34.0 [facility] Comment on above: Order Comment: Speci men Type: BLOOD SPECIMEN Ordering Facility: [facility] Address: [address] [address] Performed By: #### 5 8410-2 #### [facility] CLIA [id number] [address] [place] [address] [place] MCHC (RBC) [Mass/Vol] 33.6 g/dL Normal 30.5-36.0 [facility] Comment on above: Order Comment: Speci men Type: BLOOD SPECIMEN Ordering Facility: [facility] Address: [address] [address] Performed By: #### 5 8410-2 #### [facility] [place] [id number] [address] [place] [address] [place] MCV (RBC) [Entitic vol] 94.9 fL Normal 80.0-100.0 [facility] Comment on above: Order Comment: Speci men Type: BLOOD SPECIMEN Ordering Facility: [facility] Address: [address] [address] Performed By: #### 5 8410-2 #### [facility] CLIA [id number] [address] [place] [address] [place] Nucleated RBC (Bld) [#/Vol] 10*3/uL Normal <0.01 [facility] Comment on above: Order Comment: Speci men Type: BLOOD SPECIMEN Ordering Facility: [facility] Address: [address] [address] Performed By: #### 5 8410-2 #### [facility] CLIA [id number] [address] [place] [address] [place] Platelet mean volume (Bld) [Entitic vol] 9.0 fL Normal 9.0-12.7 [facility] Comment on above: Order Comment: Speci men Type: BLOOD SPECIMEN Ordering Facility: [facility] Address: [address] [place] [address] Performed By: #### 5 8410-2 #### [facility] CLIA [id number] [address] [place] [address] [place] Platelets (Bld) [#/Vol] 289 10*3/uL Normal 150-400 [facility] Comment on above: Order Comment: Speci men Type: BLOOD SPECIMEN Ordering Facility: [facility] Address: [address] [place] [address] Performed By: #### 5 8410-2 #### [facility] CLIA [id number] [address] [place] [address] [place] RBC (Bld) [#/Vol] 3.89 10*6/uL Low 3.90-5.20 [facility] Comment on above: Order Comment: Speci men Type: BLOOD SPECIMEN Ordering Facility: [facility] Address: [address] [place] [address] Performed By: #### 5 8410-2 #### [facility] IA [id number] [address] [place] [address] [place] WBC (Bld) [#/Vol] 7.66 10*3/uL Normal 3.70-11.00 [facility] Comment on above: Order Comment: Speci men Type: BLOOD SPECIMEN Ordering Facility: [facility] Address: [address] [place] [address] Performed By: #### 5 8410-2 #### [facility] CLIA [id number] [address] [place] [address] OF [place]IN CONSULTon 10-31-2022 CONSULT HNO ID: [id number] Author: Dana Marvin APRN.TRUST MANAGER Service: Electrophysiology Author Type: Nurse Practitioner Type: Consults Filed: 10/31/2022 4:24 PM Note Text: Attestation signed by Alexandrea Holliday MD at 11/01/2022 8:26 AM Attending Note [facility] STAFF PHYSICIAN NOTE OF PERSONAL INVOLVEMENT [...] [facility] CARDIOVASCULAR MEDICINE CONSULT NOTE [facility] Chrissy Lay [id number] PRIMARY SERVICE: General Internal Medicine - Dr. Mujica CONSULTING SERVICE: DATE OF ADMISSION: 10/31/2022 DATE OF CONSULT: [...] was called and she was taken to [place] ED and subsequently transferred to [place] for further management. Pt states having similar [...] week, she has been commuting daily between [place] and [place] for her job. She notes having at [...] - ri (more content not included)... Normal [facility] CT ABD/PEL WO IVCONon 2022 CT ABD/PEL WO IVCON * * *Final Report* * * DATE OF EXAM: Oct 31 2022 6:16AM [facility] 0531 - CT ABD/PEL WO IVCON / [...] Lower thorax: No consolidation. No pleural effusion. Raw Material Handler (topogram) images: No additional findings. IMPRESSION: Hepatic steatosis. No acute abnormality identified in the abdomen or pelvis. Details and incidental findings as above. Transcribed Using Voice Recognition Transcribe Date/Time: Oct 31 2022 6:27A Dictated by: ANDRY DELGADO MD This examination was interpreted and the report reviewed and electronically signed by: ANDRY DELGADO MD on Oct 31 2022 6:37AM EST [id number] Normal [facility] Comprehensive metabolic 2000 panelon 10-31-2022 Albumin [Mass/Vol] 3.5 g/dL Low 3.9-4.9 [facility] Comment on above: Order Comment: Speci men Type: BLOOD SPECIMENOrdering Facility: [facility] Address: [address] [address] Performed By: #### 2 4323-03, ####[facility] [id number] [place] [address] [place] ALP [Catalytic activity/Vol] 83 U/L Normal 34-123 [facility] Comment on above: Order Comment: Speci men Type: BLOOD SPECIMENOrdering Facility: [facility] Address: [address] [address] Performed By: #### 2 4323-03, ####[facility] [id number] [place] [address] [place] ALT [Catalytic activity/Vol] 35 U/L Normal 7-38 [facility] Comment on above: Order Comment: Speci men Type: BLOOD SPECIMENOrdering Facility: [facility] Address: [address] [address] Performed By: #### 2 4328, ####[facility] [id number] [place] [address] [place] Anion gap [Moles/Vol] 13 mmol/L Normal 9-18 [facility] Comment on above: Order Comment: Speci men Type: BLOOD SPECIMENOrdering Facility: [facility] Address: [address] [address] Performed By: #### 2 4323-03, ####[facility] [id number] [place] [address] [place] AST [Catalytic activity/Vol] 27 U/L Normal 13-35 [facility] Comment on above: Order Comment: Speci men Type: BLOOD SPECIMENOrdering Facility: [facility] Address: [address] [place] [address] Performed By: #### 2 4323-8, ####[facility] [id number] [place] [address] [place] Bilirubin [Mass/Vol] 0.5 mg/dL Normal 0.2-1.3 [facility] Comment on above: Order Comment: Speci men Type: BLOOD SPECIMENOrdering Facility: [facility] Address: [address] [place] [address] Performed By: #### 2 8, ####[facility] [id number] [place] [address] [place] Calcium [Mass/Vol] 8.8 mg/dL Normal 8.5-10.2 [facility] Comment on above: Order Comment: Speci men Type: BLOOD SPECIMENOrdering Facility: [facility] Address: [address] [place] [address] Performed By: #### 2 4328, ####[facility] [id number] [place] [address] [place] Chloride [Moles/Vol] 104 mmol/L Normal 97-105 [facility] Comment on above: Order Comment: Speci men Type: BLOOD SPECIMENOrdering Facility: [facility] Address: [address] [place] [address] Performed By: #### 2 432-8, ####[facility] [id number] [place] [address] [place] CO2 [Moles/Vol] 19 mmol/L Low 22-30 [facility] Comment on above: Order Comment: Speci men Type: BLOOD SPECIMENOrdering Facility: [facility] Address: [address] [address] Performed By: #### 2 4323-8, ####[facility]IA [id number] [place] [address] [place] Creatinine [Mass/Vol] 1.07 mg/dL High 0.58-0.96 [facility] Comment on above: Order Comment: Van mora Type: BLOOD SPECIMENOrdering Facility: [facility] Address: [address] [address] Performed By: #### 2 4323-8, ####[facility]ORYIA [id number] [place] [address] [place] ESTIMATED GLOMERULAR FILTRATION RATE 61 mL/min/1.73m??? Normal >=60 [facility] Comment on above: Order Comment: Van mora Type: BLOOD SPECIMENOrdering Facility: [facility] Address: [address] [address] Result Comment: Mei mated Glomerular Filtration Rate [...] actual GFR. Performed By: #### 2 4323-8, ####[facility]ORY[facility] [id number] [place] [address] [place] Glucose [Mass/Vol] 126 mg/dL High 74-99 [facility] Comment on above: Order Comment: Van mora Type: BLOOD SPECIMENOrdering Facility: [facility] Address: [address] [address] Result Comment: The [place] Diabetes Association (ADA) provides guidance for cutoff [...] Standards of Medical Care in Diabetes 2016, [place] Diabetes Association. Diabetes Care. 2016.39(Suppl 1). Performed By: #### 2 4323-03, ####[facility]IA [id number] [place] [address] [place] Potassium [Moles/Vol] 3.2 mmol/L Low 3.7-5.1 [facility] Comment on above: Order Comment: Van mora Type: BLOOD SPECIMENOrdering Facility: [facility] Address: [address] [place] [address] Performed By: #### 2 4323-03, ####[facility]ORYCLIA [id number] [place] [address] [place] Protein [Mass/Vol] 5.7 g/dL Low 6.3-8.0 [facility] Comment on above: Order Comment: Van mora Type: BLOOD SPECIMENOrdering Facility: [facility] Address: [address] [place] [address] Performed By: #### 2 4323-03, ####[facility]ORYCLIA [id number] [place] [address] [place] Sodium [Moles/Vol] 136 mmol/L Normal 136-144 [facility] Comment on above: Order Comment: Josei abby Type: BLOOD SPECIMENOrdering Facility: [facility] Address: [address] [place] [address] Performed By: #### 2 4323-03, ####[facility]IA [id number] [place] [address] [place] Urea nitrogen [Mass/Vol] 13 mg/dL Normal 7-21 [facility] Comment on above: Order Comment: Speci men Type: BLOOD SPECIMENOrdering Facility: [facility] Address: [address] [id number] Performed By: #### 2 4323-8, 84945-7 ####[facility]ORYCLIA [id number] [address] [place] [id number] [place] [facility] ECHOon 10-31-2022 Echocardiography Echocardiography Rep ort: Transthoracic Echo [facility] Date of service: 10/31/2022 1:07:44 PM [place] Ordering physician: DANA MARVIN Indication: Syncope Technologist: Bryce Mulligan [facility] Interpreting physician: Karen Anton MD PATIENT: Name: [...] * * Final * * * CC Transfer Course Computer System ([place]) Medical Image : [id number] [facility] ED NOTEon 10-31-2022 ED NOTE HNO ID: [id number] Author: Honey Gonsalez RN Service: ? Author Type: Registered Nurse Type: ED Notes Filed: 10/31/2022 12:21 AM Note Text: Bedside report to MMT. Report called to HL by NERY [place]. Patient stable, AO*3, VSS, IV intact and patent. Belongings sent with patient. Normal [facility] ED NOTE HNO ID: [id number] Author: Honey Gonsalez RN Service: ? Author Type: Registered Nurse Type: ED Notes Filed: 10/31/2022 12:18 AM Note Text: Patient states her BG is reading 84. Given nga alicia and easy mac. Patient ambulated to the bathroom without difficulty. Normal [facility] GGT SerPl-cCncon 10-31-2022 Gamma glutamyl transferase [Catalytic activity/Vol] 164 U/L [address] Comment on above: Order Comment: Speci men Type: BLOOD SPECIMENOrdering Facility: [facility] Address: [address] [place] [address] Performed By: #### 2 324-2 ####[facility] [id number] [address] HISTORY PHYSICALon HISTORY PHYSICAL HNO ID: [id number] Author: Katiuska Fairchild APRN.TRUST MANAGER Service: General Internal Medicine Author Type: Nurse [...] prescribed that. She has not seen a wire spiral binder. She says she feels dizzy and lightheaded. [...] OF 09/2021 cervical fusion 2-[address] Lopez/[facility], hardware present REPAIR RECTOCELE SEPARATE PROCEDURE [...] d/t itich (more content not included)... Normal [facility] HISTORY PHYSICAL HNO ID: [id number] Author: Madelyn Fair PA-C Service: General Internal Medicine Author Type: Physician Wing Scorer Type: HANDP Filed: 10/31/2022 6:14 AM Note Text: Summary: Admission Note HISTORY AND PHYSICAL EXAMINATION SERVICE DATE: 10/31/2022 SERVICE TIME: 4:29 AM PRIMARY CARE PHYSICIAN: CHANTALE RAMSEY APRN.TRUST MANAGER ADMISSION DIAGNOSIS Subjective CHIEF COMPLAINT: Abdominal Pain, [...] OF 09/2021 cervical fusion 2-[address] Lopez/[facility], hardware present REPAIR RECTOCELE SEPARATE PROCEDURE [...] needed., Disp: (more content not included)... Normal [facility] HbA1c (Bld)on 10-31-2022 Average glucose Estimated from glycated hemoglobin (Bld) [Mass/Vol] 186 mg/dL Normal [facility] Comment on above: Order Comment: Van mora Type: BLOOD SPECIMENOrdering Facility: [facility] Address: [address] [address] Result Comment: eAG: (Estimated average glucose) is a calculated value from HgbA1c and is outside industrial sales representative of the average blood glucose level in the last 2-3 month period. Performed By: #### 5 5454-3 ####[facility] [id number] [place] [address] [place] HbA1c (Bld) [Mass fraction] 8.1 % High 4.3-5.6 [facility] Comment on above: Order Comment: Van mora Type: BLOOD SPECIMENOrdering Facility: [facility] Address: [address] [address] Result Comment: Amer [place] Diabetes Association guidelines indicate that patients with HgbA1c in the range 5.7-6.4% are at increased risk for development of diabetes, and intervention by lifestyle modification may be beneficial. HgbA1c greater or equal to 6.5% is considered diagnostic of diabetes. Performed By: #### 5 5454-3 ####[facility] LAB[facility] [id number] [place] [id number] [place] Lactate (Bld) [Moles/Vol]on 10-31-2022 Lactate [Moles/Vol] 1.2 mmol/L Normal 0.5-2.2 [facility] Comment on above: Order Comment: Van mora Type: BLOOD SPECIMENOrdering Facility: [facility] Address: [address] [address] Performed By: #### 3 2693-4 ####[facility]ORYCLIA [id number] [place] [address] [place] Magnesium SerPl-mCncon 10-31 Magnesium [Mass/Vol] 1.8 mg/dL Normal 1.7-2.3 [facility] Comment on above: Order Comment: Speci men Type: BLOOD SPECIMENOrdering Facility: [facility] Address: [address] [place] [address] Performed By: #### 2 4323-8, 69412-0 ####[facility]ORYCLIA [id number] [place] [address] [place] URINALYSIS, REFLEX MICROSCOP ICon 10-31-2022 Bilirubin Ql (U) Negative Normal Negative [facility] Comment on above: Order Comment: Speci men Type: URINE SPECIMENOrdering Facility: [facility] Address: [address] [place] [address] Performed By: #### L [id number] ####[facility]IA [id number] [place] [address] [place] Clarity (Unsp spec) Clear Normal Clear [facility] Comment on above: Order Comment: Speci men Type: URINE SPECIMENOrdering Facility: [facility] Address: [address] [place] [address] Performed By: #### L [id number] ####[facility]IA [id number] [place] [address] [place] Color (U) Colorless Normal Yellow [facility] Comment on above: Order Comment: Speci men Type: URINE SPECIMENOrdering Facility: [facility] Address: [address] [place] [address] Performed By: #### L [id number] ####[facility]ORYCLIA [id number] [place] [address] [place] Epithelial cells LM.HPF (Urine sed) [#/Area] Moderate Normal [facility] Comment on above: Order Comment: Speci men Type: URINE SPECIMENOrdering Facility: [facility] Address: [address] [place], [place] [address] Performed By: #### L [id number] ####[facility]ORYCLIA [id number] [place] [address] [place] Glucose Test strip (U) [Mass/Vol] 3+ Abnormal Trace, Negative [facility] Comment on above: Order Comment: Speci men Type: URINE SPECIMENOrdering Facility: [facility] Address: [address] [place] [address] Performed By: #### L [id number] ####[facility]CLIA [id number] [place] [address] [place] Hemoglobin Ql (U) Negative Normal Negative, Trace [facility] Comment on above: Order Comment: Speci men Type: URINE SPECIMENOrdering Facility: [facility] Address: [address] [place] [address] Performed By: #### L [id number] ####[facility]ORYCLIA [id number] [place] [address] [place] Ketones Ql (U) Negative Normal Negative, Trace [facility] Comment on above: Order Comment: Speci men Type: URINE SPECIMENOrdering Facility: [facility] Address: [address] [place] [address] Performed By: #### L [id number] ####[facility]ORYCLIA [id number] [address] [place] Leukocyte esterase Test strip Ql (U) Negative Normal Negative, 25 Jim/uL [facility] Comment on above: Order Comment: Speci men Type: URINE SPECIMENOrdering Facility: [facility] Address: [address] [address] Performed By: #### L [id number] ####[facility]ORYCLIA [id number] [place] [address] [place] Nitrite Ql (U) Negative Normal Negative [facility] Comment on above: Order Comment: Speci men Type: URINE SPECIMENOrdering Facility: [facility] Address: [address] [place] [address] Performed By: #### L [id number] ####[facility]ORYCLIA [id number] [place] [address] [place] pH (U) 6.5 [pH] Normal 5.0-8.0 [facility] Comment on above: Order Comment: Speci men Type: URINE SPECIMENOrdering Facility: [facility] Address: [address] [place] [address] Performed By: #### L [id number] ####[facility]ORYCLIA [id number] [place] [address] [place] Protein (U) [Mass/Vol] Negative Normal Trace, Negative [facility] Comment on above: Order Comment: Speci men Type: URINE SPECIMENOrdering Facility: [facility] Address: [address] [place] [address] Performed By: #### L [id number] ####[facility]ORATORYIA [id number] [place] [address] [place] RBC LM.HPF (Urine sed) [#/Area] 0-3 /HPF Normal 0-3 /HPF [facility] Comment on above: Order Comment: Speci men Type: URINE SPECIMENOrdering Facility: [facility] Address: [address] [place] [address] Performed By: #### L [id number] ####[facility]ATORYIA [id number] [place] [address] [place] Specific gravity (U) [Rel density] 1.008 Normal 1.005-1.030 [facility] Comment on above: Order Comment: Speci men Type: URINE SPECIMENOrdering Facility: [facility] Address: [address] [place] [address] Performed By: #### L [id number] ####[facility] LABORATORYIA [id number] [place] [address] [place] Urobilinogen Ql (U) Negative Normal Negative [facility] Comment on above: Order Comment: Speci men Type: URINE SPECIMENOrdering Facility: [facility] Address: [address] [address] Performed By: #### L [id number] ####[facility]ORATORYCLIA [id number] [address] WBC LM.HPF (Urine sed) [#/Area] 0-5 /HPF Normal 0-5 /HPF [facility] Comment on above: Order Comment: Speci men Type: URINE SPECIMENOrdering Facility: [facility] Address: [address] [address] Performed By: #### L [id number] ####[facility]ORATORYCLIA [id number] [address] ALLIED HEALTHon 10-30-2022 ALLIED HEALTH HNO ID: [id number] Author: RT Rosina(R) Service: Radiology Author Type: [...] Rosina(R) October 30, 2022 5:58 PM Normal [facility] Bacteria Bld Culton 10-31-19 23 Bacteria identified Cx Nom (Bld) CULTURE, BLOOD: No growth 5 days Normal [facility] Comment on above: Performed By: #### 6 00-7 ####[facility] LABCLIA [id number] [place] [address] [address] [place] Basic metabolic 2000 panelon 10-30-2022 Anion gap [Moles/Vol] 12 mmol/L Normal 9-18 [facility] Comment on above: Order Comment: Speci men Type: BLOOD SPECIMENOrdering Facility: [facility] Address: [address] [address] Performed By: #### 2 4321-2 ####[facility]ORYCLIA [id number] [place] [address] [place] Calcium [Mass/Vol] 9.4 mg/dL Normal 8.5-10.2 [facility] Comment on above: Order Comment: Speci men Type: BLOOD SPECIMENOrdering Facility: [facility] Address: [address] [place] [address] Performed By: #### 2 4321-2 ####[facility]ORYCLIA [id number] [place] [address] [place] Chloride [Moles/Vol] 98 mmol/L Normal 97-105 [facility] Comment on above: Order Comment: Speci men Type: BLOOD SPECIMENOrdering Facility: [facility] Address: [address] [place] [address] Performed By: #### 2 4321-2 ####[facility]OR[facility]ORYCLIA [id number] [place] [address] [place] CO2 [Moles/Vol] 22 mmol/L Normal 22-30 [facility] Comment on above: Order Comment: Speci men Type: BLOOD SPECIMENOrdering Facility: [facility] Address: [address] [place] [address] Performed By: #### 2 4321-2 ####[facility]ATORYCLIA [id number] [place] [address] [place] Creatinine [Mass/Vol] 1.50 mg/dL High 0.58-0.96 [facility] Comment on above: Order Comment: Speci men Type: BLOOD SPECIMENOrdering Facility: [facility] Address: [address] [place] [address] Performed By: #### 2 4321-2 ####[facility]ORATORYCLIA [id number] [address] OF [facility] ESTIMATED GLOMERULAR FILTRATION RATE 41 mL/min/1.73m??? Low >=60 [facility] Comment on above: Order Comment: Van mora Type: BLOOD SPECIMENOrdering Facility: [facility] Address: [address] [address] Result Comment: Mei mated Glomerular Filtration Rate [...] actual GFR. Performed By: #### 2 4321-2 ####[facility] LABORATORYCLIA [id number] [address] [place] Glucose [Mass/Vol] 188 mg/dL High 74-99 [facility] Comment on above: Order Comment: Van mora Type: BLOOD SPECIMENOrdering Facility: [facility] Address: [address] [address] Result Comment: The [place] Diabetes Association (ADA) provides guidance for cutoff [...] Standards of Medical Care in Diabetes 2016, [place]. Diabetes Care. 2016.39(Suppl 1). Performed By: #### 2 4321-2 ####[facility] LABORATORYCLIA [id number] [place] [address] [place] Potassium [Moles/Vol] 4.0 mmol/L Normal 3.7-5.1 [facility] Comment on above: Order Comment: Speci men Type: BLOOD SPECIMENOrdering Facility: [facility] Address: [address] [address] Performed By: #### 2 4321-2 ####[facility] LABORATORYCLIA [id number] [place] [address] [place] Sodium [Moles/Vol] 132 mmol/L Low 136-144 [facility] Comment on above: Order Comment: Speci men Type: BLOOD SPECIMENOrdering Facility: [facility] Address: [address] [place] [address] Performed By: #### 2 4321-2 ####[facility]EV[facility] LABORATORYIA [id number] [address] [place] Urea nitrogen [Mass/Vol] 14 mg/dL Normal 7-21 [facility] Comment on above: Order Comment: Speci men Type: BLOOD SPECIMENOrdering Facility: [facility] Address: [address] [place] [address] Performed By: #### 2 4321-2 ####[facility]EV[facility] LABORATORYIA [id number] [address] [place] CBC W Auto Differential pane l (Bld)on 10-30-2022 Basophils (Bld) [#/Vol] 0.07 10*3/uL Normal <0.11 [facility] Comment on above: Order Comment: Speci men Type: BLOOD SPECIMENOrdering Facility: [facility] Address: [address] [place] [address] Performed By: #### 5 7021-8 ####[facility] LABORATORYIA [id number] [address] [place] Basophils/100 WBC (Bld) 0.5 % Normal [facility] Comment on above: Order Comment: Speci men Type: BLOOD SPECIMENOrdering Facility: [facility] Address: [address] [address] Performed By: #### 5 7021-8 ####[facility] LABORATORYIA [id number] [address] Differential cell count method Nom (Bld) Auto Normal [facility] Comment on above: Order Comment: Speci men Type: BLOOD SPECIMENOrdering Facility: [facility] Address: [address] [address] Performed By: #### 5 7021-8 ####[facility] LABORATORYIA [id number] [place] [address] [place] Eosinophils (Bld) [#/Vol] 0.03 10*3/uL Normal <0.46 [facility] Comment on above: Order Comment: Speci men Type: BLOOD SPECIMENOrdering Facility: [facility] Address: [address] [place] [address] Performed By: #### 5 7021-8 ####[facility] ENRIQUECIND[facility] LABORATORYIA [id number] [address] Eosinophils/100 WBC (Bld) 0.2 % Normal [facility] Comment on above: Order Comment: Speci men Type: BLOOD SPECIMENOrdering Facility: [facility] Address: [address] [place] [address] Performed By: #### 5 7021-8 ####[facility] LABORATORYIA [id number] [address] Erythrocyte distribution width (RBC) [Ratio] 12.5 % Normal 11.5-15.0 [facility] Comment on above: Order Comment: Speci men Type: BLOOD SPECIMENOrdering Facility: [facility] Address: [address] [place] [address] Performed By: #### 5 7021-8 ####[facility] LABORATORYIA [id number] [address] Hematocrit (Bld) [Volume fraction] 42.9 % Normal 36.0-46.0 [facility] Comment on above: Order Comment: Speci men Type: BLOOD SPECIMENOrdering Facility: [facility] Address: [address] [address] Performed By: #### 5 7021-8 ####[facility] ENRIQUEDVEIN [facility] LABORATORYIA [id number] [place] [address] [place] Hemoglobin (Bld) [Mass/Vol] 14.5 g/dL Normal 11.5-15.5 [facility] Comment on above: Order Comment: Speci men Type: BLOOD SPECIMENOrdering Facility: [facility] Address: [address] [place] [address] Performed By: #### 5 7021-8 ####[facility] LABORATORYIA [id number] [place] [address] [place] Immature granulocytes (Bld) [#/Vol] 0.06 10*3/uL Normal <0.10 [facility] Comment on above: Order Comment: Speci men Type: BLOOD SPECIMENOrdering Facility: [facility] Address: [address] [place] [address] Performed By: #### 5 7021-8 ####[facility] LABORATORYIA [id number] [address] [place] Immature granulocytes/100 WBC (Bld) 0.4 % Normal [facility] Comment on above: Order Comment: Speci men Type: BLOOD SPECIMENOrdering Facility: [facility] Address: [address] [address] Performed By: #### 5 7021-8 ####[facility] LABORATORYIA [id number] [place] [address] [place] Lymphocytes (Bld) [#/Vol] 1.99 10*3/uL Normal 1.00-4.00 [facility] Comment on above: Order Comment: Speci men Type: BLOOD SPECIMENOrdering Facility: [facility] Address: [address] [place], [place] [address] Performed By: #### 5 7021-8 ####[facility] LABORATORYCLIA [id number] [address] Lymphocytes/100 WBC (Bld) 13.1 % Normal [facility] Comment on above: Order Comment: Speci men Type: BLOOD SPECIMENOrdering Facility: [facility] Address: [address] [place] [address] Performed By: #### 5 7021-8 ####[facility] LABORATORYCLIA [id number] [address] [place] [facility] MCH (RBC) [Entitic mass] 30.4 pg Normal 26.0-34.0 [facility] Comment on above: Order Comment: Speci men Type: BLOOD SPECIMENOrdering Facility: [facility] Address: [address] [place] [address] Performed By: #### 5 7021-8 ####CARL[facility] ENRIQUECINDY [facility] HOSPITALIA [id number] [address] [place] [facility] MCHC (RBC) [Mass/Vol] 33.8 g/dL Normal 30.5-36.0 [facility] Comment on above: Order Comment: Speci men Type: BLOOD SPECIMENOrdering Facility: [facility] Address: [address] [place] [address] Performed By: #### 5 7021-8 ####[facility] LABORATORYIA [id number] [address] MCV (RBC) [Entitic vol] 89.9 fL Normal 80.0-100.0 [facility] Comment on above: Order Comment: Speci men Type: BLOOD SPECIMENOrdering Facility: [facility] Address: [address] [place] [address] Performed By: #### 5 7021-8 ####[facility] LABORATORYIA [id number] [address] Monocytes (Bld) [#/Vol] 1.10 10*3/uL High <0.87 [facility] Comment on above: Order Comment: Speci men Type: BLOOD SPECIMENOrdering Facility: [facility] Address: [address] [address] Performed By: #### 5 7021-8 ####[facility] LABORATORYCLIA [id number] [place] [address] [place] Monocytes/100 WBC (Bld) 7.2 % Normal [facility] Comment on above: Order Comment: Speci men Type: BLOOD SPECIMENOrdering Facility: [facility] Address: [address] [address] Performed By: #### 5 7021-8 ####[facility] LABORATORYCLIA [id number] [place] [address] [place] Neutrophils (Bld) [#/Vol] 11.93 10*3/uL High 1.45-7.50 [facility] Comment on above: Order Comment: Speci men Type: BLOOD SPECIMENOrdering Facility: [facility] Address: [address] [address] Performed By: #### 5 7021-8 ####[facility] LABORATORYIA [id number] [place] [address] [place] Neutrophils/100 WBC (Bld) 78.6 % Normal [facility] Comment on above: Order Comment: Speci men Type: BLOOD SPECIMENOrdering Facility: [facility] Address: [address] [address] Performed By: #### 5 7021-8 ####[facility] LABORATORYIA [id number] [place] [address] [place] Nucleated RBC (Bld) [#/Vol] 10*3/uL Normal <0.01 [facility] Comment on above: Order Comment: Speci men Type: BLOOD SPECIMENOrdering Facility: [facility] Address: [address] [address] Performed By: #### 5 7021-8 ####[facility] LABORATORYCLIA [id number] [place] [address] [place] Nucleated RBC/100 WBC (Bld) [Ratio] 0.0 /100 WBC Normal [facility] Comment on above: Order Comment: Speci men Type: BLOOD SPECIMENOrdering Facility: [facility] Address: [address] [place] [address] Performed By: #### 5 7021-8 ####[facility] LABORATORYIA [id number] [place] [address] [place] Platelet mean volume (Bld) [Entitic vol] 8.8 fL Low 9.0-12.7 [facility] Comment on above: Order Comment: Speci men Type: BLOOD SPECIMENOrdering Facility: [facility] Address: [address] [place] [address] Performed By: #### 5 7021-8 ####CARL[facility] ENRIQUECINDY [facility] HOSPITALIA [id number] [place] [address] [place] Platelets (Bld) [#/Vol] 372 10*3/uL Normal 150-400 [facility] Comment on above: Order Comment: Speci men Type: BLOOD SPECIMENOrdering Facility: [facility] Address: [address] [place] [address] Performed By: #### 5 7021-8 ####[facility] LABORATORYIA [id number] [place] [address] [place] RBC (Bld) [#/Vol] 4.77 10*6/uL Normal 3.90-5.20 [facility] Comment on above: Order Comment: Speci men Type: BLOOD SPECIMENOrdering Facility: [facility] Address: [address] [place] [address] Performed By: #### 5 7021-8 ####[facility] LABORATORYIA [id number] [address] [address] [place] WBC (Bld) [#/Vol] 15.18 10*3/uL High 3.70-11.00 [facility] Comment on above: Order Comment: Speci men Type: BLOOD SPECIMENOrdering Facility: [facility] Address: [address] [place] [address] Performed By: #### 5 7021-8 ####[facility] LABORATORYCLIA [id number] [address] CK SerPl-cCncon 10-30-2022 CK [Catalytic activity/Vol] 60 U/L Normal 42-196 [facility] Comment on above: Order Comment: Speci men Type: BLOOD SPECIMENOrdering Facility: [facility] Address: [address] [place] [address] Performed By: #### 2 157-6, 3040-3, HSTNT, BHB, 43206-7 ####[facility] LABORATORYCLIA [id number] [address] Comprehensive metabolic 2000 panelon 10-30-2022 Albumin [Mass/Vol] 5.0 g/dL High 3.9-4.9 [facility] Comment on above: Order Comment: Speci men Type: BLOOD SPECIMENOrdering Facility: [facility] Address: [address] [place] [address] Performed By: #### 2 157-6, 3040-3, HSTNT, BHB, 55234-6 ####[facility] LABORATORYCLIA [id number] [address] STATES OF [facility] ALP [Catalytic activity/Vol] 129 U/L High 34-123 [facility] Comment on above: Order Comment: Speci men Type: BLOOD SPECIMENOrdering Facility: [facility] Address: [address] [place] [address] Performed By: #### 2 157-6, 3040-3, HSTNT, BHB, 99911-5 ####[facility] LABORATORYCLIA [id number] [place] [address] [place] ALT [Catalytic activity/Vol] 60 U/L High 7-38 [facility] Comment on above: Order Comment: Speci men Type: BLOOD SPECIMENOrdering Facility: [facility] Address: [address] [place] [address] Performed By: #### 2 157-6, 3040-3, HSTNT, BHB, 02038-8 ####[facility] LABORATORYCLIA [id number] [place] [address] [place] Anion gap [Moles/Vol] 18 mmol/L Normal 9-18 [facility] Comment on above: Order Comment: Speci men Type: BLOOD SPECIMENOrdering Facility: [facility] Address: [address] [place] [address] Performed By: #### 2 157-6, 3040-3, HSTNT, BHB, 20652-9 ####[facility] LABORATORYCLIA [id number] [place] [address] [place] AST [Catalytic activity/Vol] 56 U/L High 13-35 [facility] Comment on above: Order Comment: Speci men Type: BLOOD SPECIMENOrdering Facility: [facility] Address: [address] [place] [address] Performed By: #### 2 157-6, 3040-3, HSTNT, BHB, 25288-1 ####[facility] LABORATORYCLIA [id number] [place] [address] [place] Bilirubin [Mass/Vol] 0.6 mg/dL Normal 0.2-1.3 [facility] Comment on above: Order Comment: Speci men Type: BLOOD SPECIMENOrdering Facility: [facility] Address: [address] [place] [address] Performed By: #### 2 157-6, 3040-3, HSTNT, BHB, 89144-9 ####[facility] LABORATORYCLIA [id number] [address] [address] [place] Calcium [Mass/Vol] 11.0 mg/dL High 8.5-10.2 [facility] Comment on above: Order Comment: Speci men Type: BLOOD SPECIMENOrdering Facility: [facility] Address: [address] [address] Performed By: #### 2 157-6, 3040-3, HSTNT, BHB, 19009-1 ####[facility] LABORATORYCLIA [id number] [place] [address] [place] Chloride [Moles/Vol] 90 mmol/L Low 97-105 [facility] Comment on above: Order Comment: Speci men Type: BLOOD SPECIMENOrdering Facility: [facility] Address: [address] [place] [address] Performed By: #### 2 157-6, 3040-3, HSTNT, BHB, 42319-1 ####[facility] LABORATORYCLIA [id number] [place] [address] [place] CO2 [Moles/Vol] 21 mmol/L Low 22-30 [facility] Comment on above: Order Comment: Speci men Type: BLOOD SPECIMENOrdering Facility: [facility] Address: [address] [address] Performed By: #### 2 157-6, 3040-3, HSTNT, BHB, 83923-2 ####[facility] LABORATORYCLIA [id number] [place] [address] [place] Creatinine [Mass/Vol] 1.86 mg/dL High 0.58-0.96 [facility] Comment on above: Order Comment: Speci men Type: BLOOD SPECIMENOrdering Facility: [facility] Address: [address] [address] Performed By: #### 2 157-6, 3040-3, HSTNT, BHB, 08302-2 ####[facility] LABORATORYCLIA [id number] [place] [address] [place] ESTIMATED GLOMERULAR FILTRATION RATE 31 mL/min/1.73m??? Low >=60 [facility] Comment on above: Order Comment: Van mora Type: BLOOD SPECIMENOrdering Facility: [facility] Address: [address] [place], [place] [id number] Result Comment: Mei mated Glomerular Filtration Rate [...] By: #### 2 157-6, 3040-3, HSTNT, BHB, 39232-3 ####[facility] LABORATORYCLIA [id number] [place] [address] [place] Glucose [Mass/Vol] 309 mg/dL High 74-99 [facility] Comment on above: Order Comment: Van mora Type: BLOOD SPECIMENOrdering Facility: [facility] Address: [address] [place] [address] Result Comment: The [place] [employer] (ADA) provides guidance for cutoff [...] Standards of Medical Care in Diabetes 2016, [place]. Diabetes Care. 2016.39(Suppl 1). Performed By: #### 2 157-6, 3040-3, HSTNT, BHB, 97363-4 ####[facility] LABORATORYCLIA [id number] [place] [address] [place] Potassium [Moles/Vol] 4.2 mmol/L Normal 3.7-5.1 [facility] Comment on above: Order Comment: Speci men Type: BLOOD SPECIMENOrdering Facility: [facility] Address: [address] [address] Performed By: #### 2 157-6, 3040-3, HSTNT, BHB, 23902-3 ###GeovannyCARLOS ENRIQUEDEVIN COMMUN[facility] LABORATORYCLIA [id number] [place] [address] [place] Protein [Mass/Vol] 8.3 g/dL High 6.3-8.0 [facility] Comment on above: Order Comment: Speci men Type: BLOOD SPECIMENOrdering Facility: [facility] Address: [address] [address] Performed By: #### 2 157-6, 3040-3, HSTNT, BHB, 97014-8 ###[facility] LABORATORYIA [id number] [place] [address] [place] Sodium [Moles/Vol] 129 mmol/L Low 136-144 [facility] Comment on above: Order Comment: Speci men Type: BLOOD SPECIMENOrdering Facility: [facility] Address: [address] [address] Performed By: #### 2 157-6, 3040-3, HSTNT, BHB, 83644-8 ###[facility] LABORATORYIA [id number] [place] [address] [place] Urea nitrogen [Mass/Vol] 16 mg/dL Normal 7-21 [facility] Comment on above: Order Comment: Speci men Type: BLOOD SPECIMENOrdering Facility: [facility] Address: [address] [address] Performed By: #### 2 157-6, 3040-3, HSTNT, BHB, 55627-2 ####[facility] LABORATORYCLIA [id number] [place] [address] [place] ECG COMPLETEon 10-30-2022 ECG COMPLETE Ventricular Rate : 9 4 BPM Atrial Rate : 94 BPM P-R Interval : 134 ms QRS Duration : 72 ms Q-T Interval : 386 ms QTC Calculation(Bazett) : 482 ms Calculated P [employer] : 31 degrees Calculated R [employer] : 10 degrees Calculated T [employer] : 11 degrees NORMAL SINUS RHYTHM POSSIBLE LEFT ATRIAL ENLARGEMENT NONSPECIFIC ST ABNORMALITY Prolonged QT? ABNORMAL ECG 1701 No significant changes Confirmed by MD SHEPARD TARAS ([id number]), manuscript editor CINTHIA BERGER ([id number]) on 10/31/2022 9:34:25 AM NAME : CHRISSY LAY PID : [id number] : 1965 Gender : Female Race : ORD : [id number] Procedure Date : Oct 30 2022 16:59:56 Edit Date : Oct 31 2022 09:34:27 Diagnosis: NORMAL SINUS RHYTHM POSSIBLE LEFT ATRIAL ENLARGEMENT NONSPECIFIC ST ABNORMALITY Prolonged QT? ABNORMAL ECG 1701 No significant changes Confirmed by MD SHEPARD TARAS ([id number]), manuscript editor CINTHIA BERGER ([id number]) on 10/31/2022 9:34:25 AM Test Reason : Palpitations Location : 215 : [id number] Overread By : MD SHEPARD TARAS Edited By : CINTHIA BERGER Referred By : , Acquired by : Omar WASHINGTON [facility] ED NOTEon 10-30-2022 ED NOTE HNO ID: [id number] Author: Padmini Thompson RN Service: Emergency Medicine Author Type: Registered Nurse Type: ED Notes Filed: 10/30/2022 9:39 PM Note Text: Report to [facility] ED NOTE HNO ID: [id number] Author: Padmini Thompson RN Service: Emergency Medicine Author Type: Registered Nurse Type: ED Notes Filed: 10/30/2022 8:08 PM Note Text: Pt feeling better than upon arrival, slight dizziness when getting up, urine sent Normal [facility] ED NOTE HNO ID: [id number] Author: Padmini Thompson RN Service: Emergency Medicine Author Type: Registered Nurse Type: ED Notes Filed: 10/30/2022 7:33 PM Note Text: Vancomycin almost complete and patient stated her scalp was itching, no rash noted, no SOB, lungs clear, pt advised of [place] admission Normal [facility] ED NOTE HNO ID: [id number] Author: Padmini Thompson RN Service: Emergency Medicine [...] better except for nausea,children at beside Normal [facility] ED NOTE HNO ID: [id number] Author: Padmini Thompson RN Service: Emergency Medicine Author Type: Registered Nurse Type: ED Notes Filed: 10/30/2022 4:27 PM Note Text: Pt possibly having UTI symptoms, had on 2-3 month ago Normal [facility] ED NOTE HNO ID: [id number] Author: Danuta Mcdonald Service: Emergency Medicine 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 She has not seen a wire spiral binder. She says she feels dizzy and lightheaded. [...] OF 09/2021 cervical fusion 2-[address] Lopez/[facility], hardware present - REPAIR RECTOCELE SEPARATE [...] - Percocet [Oxycodone* Itching Severe itching - Veyjmdj-Nxa-Ryj Red* Other: See Comments Muscle a (more content not included)... Normal [facility] FLUABV+SARS-CoV-2+RSV Pnl Re sp JALIL+probeon 10-30-2022 FLUABV+SARS-CoV-2+R SV Pnl Resp JALIL+probe COVID 19 RESULT: Not detected The method used is RT-PCR or an equivalent NAAT method. Reference Range(the expected result in uninfected individuals): Not detected INFLUENZA A PCR: Not detected INFLUENZA B PCR: Not detected RSV PCR: Not detected Normal [facility] Comment on above: Performed By: #### 9 5941-1 ####[facility] LABORATORYCLIA [id number] [place] [address] [place] HIGH SENSITIVITY TROPONIN To n 10-30-2022 HIGH SENSITIVITY YUE 9 ng/L Normal <12 [facility] Comment on above: Order Comment: Josei abby Type: BLOOD SPECIMENOrdering Facility: [facility] Address: [address] [place] [address] Result Comment: When assessing risk for acute [...] By: #### 2 157-6, 3040-3, HSTNT, BHB, 20921-9 ####[facility] LABORATORYCLIA [id number] [place] [address] [place] KETONES/ACETONE/BHBon 2022 Beta hydroxybutyrate [Moles/Vol] 0.59 mmol/L High <0.28 [facility] Comment on above: Order Comment: Josei abby Type: BLOOD SPECIMENOrdering Facility: [facility] Address: [address] [place] [address] Performed By: #### 2 157-6, 3040-3, HSTNT, BHB, 61054-0 ####[facility] LABORATORYCLIA [id number] [place] [address] [place] Lipase SerPl-cCncon 10-31-19 23 Lipase [Catalytic activity/Vol] 40 U/L Normal 16-61 [facility] Comment on above: Order Comment: Josei men Type: BLOOD SPECIMENOrdering Facility: [facility] Address: [address] [place] [address] Performed By: #### 2 157-6, 3040-3, HSTNT, BHB, 52400-5 ####[facility] LABORATORYCLIA [id number] [place] [address] [place] Magnesium SerPl-mCncon 10-30 Magnesium [Mass/Vol] 2.0 mg/dL Normal 1.7-2.3 [facility] Comment on above: Order Comment: Speci men Type: BLOOD SPECIMENOrdering Facility: [facility] Address: [address] [place] [address] Performed By: #### 1 9123-9 ####[facility] LABORATORYCLIA [id number] [place] [address] [place] TOX SCREEN ROUT URon 023 Amphetamines Confirm (U) [Mass/Vol] Negative Normal Negative [facility] Comment on above: Order Comment: Speci men Type: URINE SPECIMENOrdering Facility: [facility] Address: [address] [place] [address] Result Comment: Cuto ff threshold at 1000 ng/mL. Performed By: #### U TOX2 ####[facility]QUECIND[facility] LABORATORYIA [id number] [place] [address] [place] BARBITURATES, URINE Negative Normal Negative [facility] Comment on above: Order Comment: Speci men Type: URINE SPECIMENOrdering Facility: [facility] Address: [address] [place] [address] Result Comment: Cuto ff threshold at 200 ng/mL. Performed By: #### U TOX2 ####[facility] LABORATORYCLIA [id number] [place] [address] [place] BENZODIAZEPINES, UR Negative Normal Negative [facility] Comment on above: Order Comment: Speci men Type: URINE SPECIMENOrdering Facility: [facility] Address: [address] [place] [address] Result Comment: Cuto ff threshold at 200 ng/mL. Performed By: #### U TOX2 ####[facility] EN[facility]ECIND[facility] LABORATORYCLIA [id number] [place] [address] [place] CANNABINOIDS,URINE Positive Abnormal Negative [facility] Comment on above: Order Comment: Speci men Type: URINE SPECIMENOrdering Facility: [facility] Address: [address] [address] Result Comment: Cuto ff threshold at 50 ng/mL. Performed By: #### U TOX2 ####[facility] LABORATORYCLIA [id number] [address] Cocaine Ql (U) Negative Normal Negative [facility] Comment on above: Order Comment: Speci men Type: URINE SPECIMENOrdering Facility: [facility] Address: [address] [place] [address] Result Comment: Cuto ff threshold at 300 ng/mL. Performed By: #### U TOX2 ####[facility] LABORATORYIA [id number] [address] [place] Ethanol (U) [Mass/Vol] <11 Normal <11 [facility] Comment on above: Order Comment: Speci men Type: URINE SPECIMENOrdering Facility: [facility] Address: [address] [place] [address] Performed By: #### U TOX2 ####CARLOS ENRIQUECINDY [facility] HOSPITALIA [id number] [address] Opiates Screen Ql (U) Negative Normal Negative [facility] Comment on above: Order Comment: Speci men Type: URINE SPECIMENOrdering Facility: [facility] Address: [address] [place] [address] Result Comment: Cuto ff threshold at 300 ng/mL. Performed By: #### U TOX2 ####TY [facility] LABORATORYIA [id number] [address] oxyCODONE cutoff Screen (U) [Mass/Vol] Positive Abnormal Negative [facility] Comment on above: Order Comment: Speci men Type: URINE SPECIMENOrdering Facility: [facility] Address: [address] [place] [address] Result Comment: Cuto ff threshold at 100 ng/mL. Performed By: #### U TOX2 ####CARLOS ENRIQUEDEVIN [facility] LABORATORYIA [id number] [address] Phencyclidine Ql (U) Negative Normal Negative [facility] Comment on above: Order Comment: Speci men Type: URINE SPECIMENOrdering Facility: [facility] Address: [place] [address] Result Comment: Cuto ff threshold at 25 ng/mL. Performed By: #### U TOX2 ####TY [facility] LABORATORYCLIA [id number] [address] [place] XR CHEST 1V [...] silhouette. Other: . IMPRESSION: No active disease Pharmacy Helper: FERCHO Transcribe Date/Time: Oct 30 2022 5:59P Dictated by : LAVERNE BRUNNER MD This examination was interpreted and the report reviewed and electronically signed by: LAVERNE BRUNNER MD on Oct 30 2022 6:00PM EST [id number] Normal [facility] Absolute lymphocyte counton 06-04-2022 Lymphocytes Auto (Unsp spec) [#/Vol] 2.43 10*3/uL 0.83-4.51 [facility] Work Phone: Basophil percentageon 2021 Basophils/100 WBC (Bld) 1.0 % 0-1 [facility] Work Phone: Bilirubin [Mass/Vol] 0.30 mg/dL 0.20-1.00 [facility] Work Phone: Comment on above: For patients on eltr ombopag therapy, use of Dimension [place] TBIL is not recommended. Chloride [Moles/Vol] 106 mmol/L 98-107 [facility] Work Phone: Cholesterol [Mass/Vol] 209 mg/dL <200 [facility] Work Phone: Comment on above: <200 mg/dL Desirable 200-240 mg/dL Borderline >240 mg/dL High Risk Eosinophils/100 WBC (Bld) 3.0 % 0-5 [facility] Work Phone: Glucose [Mass/Vol] 172 mg/dL 74-106 [facility] Work Phone: Comment on above: Fasting Glucose resu lt greater than or equal to 126 mg/dL suggests DIABETES MELLITUS per A.D.A. criteria. Neutrophils (Bld) [#/Vol] 1.8 10*3/uL 2.0-7.7 [facility] Work Phone: Neutrophils/100 WBC (Bld) 36.6 % 47-70 [facility] Work Phone: Potassium [Moles/Vol] 4.0 mmol/L 3.5-5.1 [facility] Work Phone: Protein [Mass/Vol] 6.7 g/dL 6.4-8.2 [facility] Work Phone: Sodium [Moles/Vol] 141 mmol/L 136-145 [facility] Work Phone: Triglyceride [Mass/Vol] 276 mg/dL <199 [facility] Work Phone: Comment on above: The drugs N-Acetylcy steine and Metamizole may falsely depress this assay.Serum Triglycerides Reference Interval Normal <150 mg/dL Borderline high 150 - 199 mg/dL High 200 - 499 mg/dL Very High > or = 500 mg/dL WBC (Bld) [#/Vol] 5.0 10*3/uL 4.4-11.0 [facility] Work Phone: Blood erythrocytes count (nu mber/volume)on 06-04-2022 RBC (Bld) [#/Vol] 4.23 10*6/uL 4.2-5.4 [facility] Work Phone: Blood hemoglobin measurement (mass/volume)on 06-04-2022 Hemoglobin (Bld) [Mass/Vol] 13.2 g/dL 12.0-15.0 [facility] Work Phone: Blood lymphocytes/100 leukoc yteson 06-04-2022 Lymphocytes/100 WBC (Bld) 48.6 % 19-41 [facility] Work Phone: Blood monocytes/100 leukocyt eson 06-04-2022 Monocytes/100 WBC (Bld) 10.6 % 0-10 [facility] Work Phone: Blood platelet mean volumeon 06-04-2022 Platelet mean volume (Bld) [Entitic vol] 8.6 fL 6.2-12.0 [facility] Work Phone: Determination of erythrocyte mean corpuscular volume (MCV)on 06-04-2022 MCV (RBC) [Entitic vol] 92.0 fL 81-99 [facility] Work Phone: Hematocrit Auto (Bld) [Volum e fraction]on 06-04-2022 Hematocrit (Bld) [Volume fraction] 38.9 % 37-47 [facility] Work Phone: Laboratory - Chemistry and C hemistry - challengeon 06-04-2022 ALP [Catalytic activity/Vol] 107 U/L 45-117 [facility] Work Phone: ALT [Catalytic activity/Vol] 56 U/L 13-56 [facility] Work Phone: CO2 [Moles/Vol] 27.0 mmol/L 21.0-32.0 [facility] Work Phone: Free T4 [Mass/Vol] 0.70 ng/dL 0.76-1.46 [facility] Work Phone: Globulin (S) [Mass/Vol] 3.4 g/dL 2.2-4.2 [facility] Work Phone: Urea nitrogen/Creatinine [Mass ratio] 19.7 mg/mg 10-20 [facility] Work Phone: Laboratory - Hematology and Cell countson 06-04-2022 Erythrocyte distribution width (RBC) [Entitic vol] 43.3 fL 35.1-43.9 [facility] Work Phone: Erythrocyte distribution width (RBC) [Ratio] 12.9 % 11.6-14.6 [facility] Work Phone: Immature granulocytes/100 WBC (Bld) 0.200 % 0.0-0.9 [facility] Work Phone: Comment on above: IG% - Immature Granu locytes (promyelocytes, myelocytes and metamyelocytes) > 1% indicates that a LEFT SHIFT is Present. MCH (RBC) [Entitic mass] 31.2 pg 27.0-32.0 [facility] Work Phone: Nucleated RBC/100 WBC (Bld) [Ratio] 0 % 0-5 [facility] Work Phone: MCHC Auto (RBC) [Mass/Vol]on 06-04-2022 MCHC (RBC) [Mass/Vol] 33.9 g/dL 32-36 [facility] Work Phone: No Panel Informationon 06-04 Estimated GFR (MDRD) Amer 145 mL/min >60 [facility] Work Phone: Comment on above: GFR Calc Estimated GFR (MDRD) Non-Af Amer 120 mL/min >60 [facility] Work Phone: Comment on above: Non- GFR Calc Free Triiodothyronine (T3) pg/dL 2.8 pg/mL 2.18-3.98 [facility] Work Phone: Thyroid Stimulating Hormone (TSH) 1.78 uIU/mL 0.358-3.74 [facility] Work Phone: Vitamin D 25-Hydroxy 42.5 ng/mL [facility] Work Phone: Comment on above: Vitamin D 25(OH) Sta tus Range Deficiency <20 ng/mL (50nmol/L) Insufficiency 20 - 30 ng/mL (50 - 75 nmol/L) Sufficiency 30 - 100 ng/mL (75 - 250 nmol/L) Toxicity >100 ng/mL (>250 nmol/L) Platelets bldon 06-04-2022 Platelets (Bld) [#/Vol] 324 10*3/uL 150-450 [facility] Work Phone: Serum or plasma albumin azul urement (mass/volume)on 06-04-2022 Albumin [Mass/Vol] 3.3 g/dL 3.2-5.0 [facility] Work Phone: Serum or plasma albumin/glob ulin mass ratioon 06-04-2022 Albumin/Globulin [Mass ratio] 1.0 {ratio} 0.9-2.4 [facility] Work Phone: Serum or plasma calcium azul urement (mass/volume)on 06-04-2022 Calcium [Mass/Vol] 8.7 mg/dL 8.5-10.1 [facility] Work Phone: Serum or plasma cholesterol in HDL measurement (mass/volume)on 06-04-2022 Cholesterol in HDL [Mass/Vol] 66 mg/dL >40 [facility] Work Phone: Comment on above: The drugs N-Acetylcy steine and Metamizole may falsely depress this assay. Reference Range HDL <40 mg/dL Low HDL Cholesterol HDL >or= 60 mg/dL High HDL Cholesterol Serum or plasma cholesterol in VLDL measurement (mass/volume)on 06-04-2022 Cholesterol in VLDL [Mass/Vol] 55 mg/dL 5-40 [facility] Work Phone: Serum or plasma creatinine m easurement (mass/volume)on 06-04-2022 Creatinine [Mass/Vol] 0.56 mg/dL 0.55-1.02 [facility] Work Phone: Comment on above: The validity of the calculated GFR & GFRAA in patients over 70 years has not been determined. Clinical correlation is essential. Serum or plasma low density lipoprotein (LDL) cholesterol measurement (mass/volume)on 06-04-2022 Cholesterol in LDL [Mass/Vol] 88 mg/dL 0-130 [facility] Work Phone: Serum or plasma urea nitroge n measurement (mass/volume)on 06-04-2022 Urea nitrogen [Mass/Vol] 11 mg/dL 7-18 [facility] Work Phone: Thin prep Papanicolaou smear with manual screeningon 06-04-2022 Thin prep Papanicolaou smear with manual screening 70 U/L 15-37 [facility] Work Phone: Thin prep Papanicolaou smear with manual screening 8 5-15 [facility] Work Phone: Whole blood hemoglobin A1c/t otal hemoglobin ratio (mass fraction)on 06-04-2022 HbA1c (Bld) [Mass fraction] 8.4 % 3.8-5.6 [facility] Work Phone: Comment on above: Normal < 5.7 % Predi abetic 5.7 - 6.4 % Diabetic >or= 6.5 % Please note range changes. Absolute lymphocyte counton 04-04-2022 Lymphocytes Auto (Unsp spec) [#/Vol] 2.73 10*3/uL 0.83-4.51 [facility] Work Phone: Basophil percentageon 2021 Basophil percentage 5-10 SEEN /hpf 0-5 [facility] Work Phone: Basophils/100 WBC (Bld) 0.4 % 0-1 [facility] Work Phone: Chloride [Moles/Vol] 101 mmol/L 98-107 [facility] Work Phone: Eosinophils/100 WBC (Bld) 0.2 % 0-5 [facility] Work Phone: Glucose [Mass/Vol] 344 mg/dL 74-106 [facility] Work Phone: Comment on above: Glucose result great er than or equal to 200 mg/dLsuggests DIABETES MELLITUS per A.D.A. criteria. Neutrophils (Bld) [#/Vol] 9.0 10*3/uL 2.0-7.7 [facility] Work Phone: [phone] Neutrophils/100 WBC (Bld) 70.3 % 47-70 [facility] Work Phone: Potassium [Moles/Vol] 4.1 mmol/L 3.5-5.1 [facility] Work Phone: Comment on above: Moderate Hemolysis, Result may be falsely increased. Sodium [Moles/Vol] 134 mmol/L 136-145 [facility] Work Phone: WBC (Bld) [#/Vol] 12.8 10*3/uL 4.4-11.0 [facility] Work Phone: Bilirubin Test strip Ql (U)o n 04-04-2022 Bilirubin Ql (U) Negative Negative [facility] Work Phone: Blood erythrocytes count (nu mber/volume)on 04-04-2022 RBC (Bld) [#/Vol] 4.73 10*6/uL 4.2-5.4 [facility] Work Phone: Blood hemoglobin measurement (mass/volume)on 04-04-2022 Hemoglobin (Bld) [Mass/Vol] 14.5 g/dL 12.0-15.0 [facility] Work Phone: Blood lymphocytes/100 leukoc yteson 04-04-2022 Lymphocytes/100 WBC (Bld) 21.3 % 19-41 [facility] Work Phone: Blood monocytes/100 leukocyt eson 04-04-2022 Monocytes/100 WBC (Bld) 7.5 % 0-10 [facility] Work Phone: Blood platelet mean volumeon 04-04-2022 Platelet mean volume (Bld) [Entitic vol] 9.4 fL 6.2-12.0 [facility] Work Phone: Determination of erythrocyte mean corpuscular volume (MCV)on 04-04-2022 MCV (RBC) [Entitic vol] 90.9 fL 81-99 [facility] Work Phone: Glucose Glucometer (BldC) [M ass/Vol]on 04-04-2022 Glucose [Mass/Vol] 366 mg/dL 74-106 [facility] Work Phone: Comment on above: MANAGEMENT OF PATIEN T CARE PER NURSING PROTOCOL Hematocrit Auto (Bld) [Volum e fraction]on 04-04-2022 Hematocrit (Bld) [Volume fraction] 43.0 % 37-47 [facility] Work Phone: Hyaline casts LM.LPF (Urine sed) [#/Area]on 04-04-2022 Hyaline casts (Urine sed) [#/Area] 25 /[LPF] 0-5 [facility] Work Phone: Ketones Test strip Ql (U)on 04-04-2022 Ketones Ql (U) Negative Negative [facility] Work Phone: Laboratory - Chemistry and C hemistry - challengeon 04-04-2022 CO2 [Moles/Vol] 21.0 mmol/L 21.0-32.0 [facility] Work Phone: Urea nitrogen/Creatinine [Mass ratio] 10.9 mg/mg 10-20 [facility] Work Phone: Laboratory - Drug toxicology on 04-04-2022 Amphetamines Ql (U) Negative <1000 ng/mL [facility] Work Phone: Benzodiazepines Ql (U) Negative < 200 ng/mL [facility] Work Phone: Cannabinoids Screen Ql (U) Positive < 50 ng/mL [facility] Work Phone: Cocaine Ql (U) Negative < 300 ng/mL [facility] Work Phone: Opiates Ql (U) Negative < 300 ng/mL [facility] Work Phone: Laboratory - Hematology and Cell countson 04-04-2022 Erythrocyte distribution width (RBC) [Entitic vol] 40.9 fL 35.1-43.9 [facility] Work Phone: Erythrocyte distribution width (RBC) [Ratio] 12.4 % 11.6-14.6 [facility] Work Phone: Immature granulocytes/100 WBC (Bld) 0.300 % 0.0-0.9 [facility] Work Phone: Comment on above: IG% - Immature Granu locytes (promyelocytes, myelocytes and metamyelocytes) > 1% indicates that a LEFT SHIFT is Present. MCH (RBC) [Entitic mass] 30.7 pg 27.0-32.0 [facility] Work Phone: Nucleated RBC/100 WBC (Bld) [Ratio] 0 % 0-5 [facility] Work Phone: MCHC Auto (RBC) [Mass/Vol]on 04-04-2022 MCHC (RBC) [Mass/Vol] 33.7 g/dL 32-36 [facility] Work Phone: Mucus LM Ql (Urine sed)on Mucus Ql (Urine sed) 0 SEEN /hpf [facility] Work Phone: Nitrite Test strip Ql (U)on 04-04-2022 Nitrite Ql (U) Negative Negative [facility] Work Phone: No Panel Informationon 04-04 MDMA (Ecstasy) Screen Negative < 500 ng/mL [facility] Work Phone: Urine Barbiturates Screen Negative < 200 ng/mL [facility] Work Phone: Urine Drug Screen Comment [facility] Work Phone: Comment on above: CONFIRMATORY TESTING [...] Urine Methadone Screen Negative < 300 ng/mL [facility] Work Phone: Estimated Creatinine Clearance Calc 49.71 ml/min [facility] Work Phone: Estimated GFR (MDRD) Amer 55 mL/min >60 [facility] Work Phone: Comment on above: GFR Calc Estimated GFR (MDRD) Non-Af Amer 45 mL/min >60 [facility] Work Phone: Comment on above: Non- GFR Calc Platelets bldon 04-04-2022 Platelets (Bld) [#/Vol] 526 10*3/uL 150-450 [facility] Work Phone: Protein Test strip Ql (U)on 04-04-2022 Protein Ql (U) 30 mg/dl Negative [facility] Work Phone: Serum or plasma calcium azul urement (mass/volume)on 04-04-2022 Calcium [Mass/Vol] 10.2 mg/dL 8.5-10.1 [facility] Work Phone: Serum or plasma creatinine m easurement (mass/volume)on 04-04-2022 Creatinine [Mass/Vol] 1.29 mg/dL 0.55-1.02 [facility] Work Phone: Comment on above: The validity of the calculated GFR & GFRAA in patients over 70 years has not been determined. Clinical correlation is essential. Serum or plasma urea nitroge n measurement (mass/volume)on 04-04-2022 Urea nitrogen [Mass/Vol] 14 mg/dL 7-18 [facility] Work Phone: Squamous epithelial cells de tection in urine sediment by light microscopyon 04-04-2022 Epithelial cells.squamous LM Ql (Urine sed) 5-10 SEEN /hpf 5-10 [facility] Work Phone: Thin prep Papanicolaou smear with manual screeningon 04-04-2022 Thin prep Papanicolaou smear with manual screening 12 5-15 [facility] Work Phone: Urine blood detectionon RBC Ql (U) 10 /ul Negative [facility] Work Phone: RBC Ql (U) 0-5 SEEN /hpf 0-5 [facility] Work Phone: Urine clarityon 04-04-2022 Clarity (U) Clear Clear [facility] Work Phone: Urine color determinationon 04-04-2022 Color (U) Yellow Yellow [facility] Work Phone: Urine glucose detectionon Glucose Ql (U) 1000 mg/dl Normal [facility] Work Phone: Urine leukocyte esterase det ection by dipstickon 04-04-2022 Leukocyte esterase Test strip Ql (U) Negative Negative [facility] Work Phone: Urine pHon 04-04-2022 pH (U) 6.0 [pH] 5.0 - 8.0 [facility] Work Phone: Urine phencyclidine (PCP) de tectionon 04-04-2022 Phencyclidine Ql (U) Negative < 25 ng/mL [facility] Work Phone: Urine sediment bacteria coun t by microscopy (number/high power field)on 04-04-2022 Bacteria LM.HPF (Urine sed) [#/Area] 1 /[HPF] None Seen [facility] Work Phone: Urine specific gravity measu rementon 04-04-2022 Specific gravity (U) [Rel density] 1.010 1.002-1.030 [facility] Work Phone: Urobilinogen Auto test strip Ql (U)on 04-04-2022 Urobilinogen Ql (U) Normal mg/dl Normal [facility] Work Phone: Laboratory - Chemistry and C hemistry - challengeon 03-13-2022 Bilirubin Ql (U) Negative [facility] Work Phone: Glucose Ql (U) 500 g/dL [facility] Work Phone: Ketones Ql (U) Trace (5) [facility] Work Phone: pH (U) 6.0 [pH] [facility] Work Phone: Specific gravity (U) [Rel density] 1.020 [facility] Work Phone: Urobilinogen (U) [Mass/Vol] Negative [facility] Work Phone: Laboratory - Hematology and Cell countson 03-13-2022 Hemoglobin Ql (U) Negative [facility] Work Phone: Laboratory - Specimen inform ationon 03-13-2022 Clarity (U) Slightly Hazy [facility] Work Phone: Color (U) YELLOW [facility] Work Phone: Laboratory - Urinalysison Nitrite Ql (U) Negative [facility] Work Phone: Protein Ql (U) Negative [facility] Work Phone: No Panel Informationon 03-13 Urine Leukocytes Negatve [facility] Work Phone: Urine Non-Hemolyzed Blood Negative [facility] Work Phone: Absolute lymphocyte counton 03-11-2022 Lymphocytes Auto (Unsp spec) [#/Vol] 3.48 10*3/uL 0.83-4.51 [facility] Work Phone: Basophil percentageon 2021 Basophil percentage 0-5 SEEN /hpf 0-5 [facility] Work Phone: Basophils/100 WBC (Bld) 0.6 % 0-1 [facility] Work Phone: Bilirubin [Mass/Vol] 0.50 mg/dL 0.20-1.00 [facility] Work Phone: Comment on above: For patients on eltr ombopag therapy, use of Dimension [place] TBIL is not recommended. Chloride [Moles/Vol] 99 mmol/L 98-107 [facility] Work Phone: Eosinophils/100 WBC (Bld) 0.5 % 0-5 [facility] Work Phone: Glucose [Mass/Vol] 143 mg/dL 74-106 [facility] Work Phone: Comment on above: Fasting Glucose resu lt greater than or equal to 126 mg/dL suggests DIABETES MELLITUS per A.D.A. criteria. Neutrophils (Bld) [#/Vol] 8.1 10*3/uL 2.0-7.7 [facility] Work Phone: [phone] Neutrophils/100 WBC (Bld) 62.4 % 47-70 [facility] Work Phone: Potassium [Moles/Vol] 4.1 mmol/L 3.5-5.1 [facility] Work Phone: Comment on above: Moderate Hemolysis, Result may be falsely increased. Protein [Mass/Vol] 7.6 g/dL 6.4-8.2 [facility] Work Phone: Sodium [Moles/Vol] 131 mmol/L 136-145 [facility] Work Phone: WBC (Bld) [#/Vol] 13.0 10*3/uL 4.4-11.0 [facility] Work Phone: Bilirubin Test strip Ql (U)o n 03-11-2022 Bilirubin Ql (U) Negative Negative [facility] Work Phone: Blood erythrocytes count (nu mber/volume)on 03-11-2022 RBC (Bld) [#/Vol] 4.77 10*6/uL 4.2-5.4 [facility] Work Phone: Blood hemoglobin measurement (mass/volume)on 03-11-2022 Hemoglobin (Bld) [Mass/Vol] 14.5 g/dL 12.0-15.0 [facility] Work Phone: Blood lymphocytes/100 leukoc yteson 03-11-2022 Lymphocytes/100 WBC (Bld) 26.8 % 19-41 [facility] Work Phone: Blood monocytes/100 leukocyt eson 03-11-2022 Monocytes/100 WBC (Bld) 9.2 % 0-10 [facility] Work Phone: Blood platelet mean volumeon 03-11-2022 Platelet mean volume (Bld) [Entitic vol] 8.9 fL 6.2-12.0 [facility] Work Phone: Determination of erythrocyte mean corpuscular volume (MCV)on 03-11-2022 MCV (RBC) [Entitic vol] 91.4 fL 81-99 [facility] Work Phone: Hematocrit Auto (Bld) [Volum e fraction]on 03-11-2022 Hematocrit (Bld) [Volume fraction] 43.6 % 37-47 [facility] Work Phone: Ketones Test strip Ql (U)on 03-11-2022 Ketones Ql (U) Negative Negative [facility] Work Phone: Laboratory - Chemistry and C hemistry - challengeon 03-11-2022 ALP [Catalytic activity/Vol] 122 U/L 45-117 [facility] Work Phone: ALT [Catalytic activity/Vol] 58 U/L 13-56 [facility] Work Phone: CO2 [Moles/Vol] 25.0 mmol/L 21.0-32.0 [facility] Work Phone: Globulin (S) [Mass/Vol] 4.1 g/dL 2.2-4.2 [facility] Work Phone: Urea nitrogen/Creatinine [Mass ratio] 13.2 mg/mg 10-20 [facility] Work Phone: Bilirubin Ql (U) Negative [facility] Work Phone: Glucose Ql (U) Negative [facility] Work Phone: Ketones Ql (U) Trace (5) [facility] Work Phone: pH (U) 6.0 [pH] [facility] Work Phone: Specific gravity (U) [Rel density] 1.020 [facility] Work Phone: Urobilinogen (U) [Mass/Vol] Negative [facility] Work Phone: Laboratory - Hematology and Cell countson 03-11-2022 Erythrocyte distribution width (RBC) [Entitic vol] 45.2 fL 35.1-43.9 [facility] Work Phone: Erythrocyte distribution width (RBC) [Ratio] 13.5 % 11.6-14.6 [facility] Work Phone: Immature granulocytes/100 WBC (Bld) 0.500 % 0.0-0.9 [facility] Work Phone: Comment on above: IG% - Immature Granu locytes (promyelocytes, myelocytes and metamyelocytes) > 1% indicates that a LEFT SHIFT is Present. MCH (RBC) [Entitic mass] 30.4 pg 27.0-32.0 [facility] Work Phone: Nucleated RBC/100 WBC (Bld) [Ratio] 0 % 0-5 [facility] Work Phone: Hemoglobin Ql (U) Moderate [facility] Work Phone: Laboratory - Specimen inform ationon 03-11-2022 Clarity (U) Cloudy [facility] Work Phone: Color (U) YELLOW [facility] Work Phone: Laboratory - Urinalysison Nitrite Ql (U) Negative [facility] Work Phone: Protein Ql (U) Trace [facility] Work Phone: MCHC Auto (RBC) [Mass/Vol]on 03-11-2022 MCHC (RBC) [Mass/Vol] 33.3 g/dL 32-36 [facility] Work Phone: Mucus LM Ql (Urine sed)on Mucus Ql (Urine sed) 0 SEEN /hpf [facility] Work Phone: Nitrite Test strip Ql (U)on 03-11-2022 Nitrite Ql (U) Negative Negative [facility] Work Phone: No Panel Informationon 03-11 Estimated Creatinine Clearance Calc 49.71 ml/min [facility] Work Phone: Estimated GFR (MDRD) Amer 55 mL/min >60 [facility] Work Phone: Comment on above: GFR Calc Estimated GFR (MDRD) Non-Af Amer 46 mL/min >60 [facility] Work Phone: Comment on above: Non- GFR Calc Troponin I High Sensitivity 8 pg/mL 3.0-54.0 [facility] Work Phone: Comment on above: Please Note: New Hod[place] t Units and Gender Specific Reference Ranges. For more information see Policy Stat Procedure [place] High Sensitivity Troponin (TNIH) and attachments. Urine Leukocytes Positive [facility] Work Phone: Urine Non-Hemolyzed Blood Non-Hemolyzed [facility] Work Phone: Platelets bldon 03-11-2022 Platelets (Bld) [#/Vol] 334 10*3/uL 150-450 [facility] Work Phone: Protein Test strip Ql (U)on 03-11-2022 Protein Ql (U) 15 mg/dl Negative [facility] Work Phone: Serum or plasma albumin azul urement (mass/volume)on 03-11-2022 Albumin [Mass/Vol] 3.5 g/dL 3.2-5.0 [facility] Work Phone: Serum or plasma albumin/glob ulin mass ratioon 03-11-2022 Albumin/Globulin [Mass ratio] 0.9 {ratio} 0.9-2.4 [facility] Work Phone: Serum or plasma calcium azul urement (mass/volume)on 03-11-2022 Calcium [Mass/Vol] 8.9 mg/dL 8.5-10.1 [facility] Work Phone: Serum or plasma creatinine m easurement (mass/volume)on 03-11-2022 Creatinine [Mass/Vol] 1.29 mg/dL 0.55-1.02 [facility] Work Phone: Comment on above: The validity of the calculated GFR & GFRAA in patients over 70 years has not been determined. Clinical correlation is essential. Serum or plasma urea nitroge n measurement (mass/volume)on 03-11-2022 Urea nitrogen [Mass/Vol] 17 mg/dL 7-18 [facility] Work Phone: Squamous epithelial cells de tection in urine sediment by light microscopyon 03-11-2022 Epithelial cells.squamous LM Ql (Urine sed) 0-5 SEEN /hpf 5-10 [facility] Work Phone: Thin prep Papanicolaou smear with manual screeningon 03-11-2022 Thin prep Papanicolaou smear with manual screening 54 U/L 15-37 [facility] Work Phone: Comment on above: Moderate Hemolysis, Result may be falsely increased. Thin prep Papanicolaou smear with manual screening 7 5-15 [facility] Work Phone: Urine blood detectionon RBC Ql (U) Negative Negative [facility] Work Phone: RBC Ql (U) 0 SEEN /hpf 0-5 [facility] Work Phone: Urine clarityon 03-11-2022 Clarity (U) Clear Clear [facility] Work Phone: Urine color determinationon 03-11-2022 Color (U) Yellow Yellow [facility] Work Phone: Urine glucose detectionon Glucose Ql (U) Normal mg/dl Normal [facility] Work Phone: Urine leukocyte esterase det ection by dipstickon 03-11-2022 Leukocyte esterase Test strip Ql (U) 25 /ul Negative [facility] Work Phone: Urine pHon 03-11-2022 pH (U) 6.0 [pH] 5.0 - 8.0 [facility] Work Phone: Urine sediment bacteria coun t by microscopy (number/high power field)on 03-11-2022 Bacteria LM.HPF (Urine sed) [#/Area] 1 /[HPF] None Seen [facility] Work Phone: Urine specific gravity measu rementon 03-11-2022 Specific gravity (U) [Rel density] 1.015 1.002-1.030 [facility] Work Phone: Urobilinogen Auto test strip Ql (U)on 03-11-2022 Urobilinogen Ql (U) Normal mg/dl Normal [facility] Work Phone: CNOVon 03-04-2022 CNOV Office Visit (TIM ) CHRISSY LAY ([id number]) 1965 F UPA Date Time Provider Department 03/04/22 3:30 PM ANDRY DUNNE During your visit today, we recorded the following information about you: Weight Height 79.4 kg 1.727 m Andry Dunne MD 03/19/2022 1:26 PM Signed Andry Dunne MD Department of Orthopaedics Orthopaedics [address] [facility] [address] Dept: [phone] Dept March 04, 2022 CHIEF COMPLAINT: New [...] surgeries of right shoulder, but this is [facility], and explained that we cannot treat her for this unless Dr. Dunne agrees to take on care and become provider of record. Currently she sees Dr. Jones and Dr. Bishop. She does not want to go back to [place] for care. AMB ROOMING INTAKE FLOWSHEET DATA [...] subacromial bursa Informed Consent Consent Obtained: Verbal [place] Protocol A moment to CARE was completed. [...] THE CORACOCLAVICULAR LIGAMENTS MAY REPRESENT LOW-GRADE SPRAIN. Pharmacy Helper: FERCHO Transcribe Date/Time: Jun 22 2021 4:06P Dictated by : NAYELY ZURITA MD This examination was interpreted and the report reviewed and electronically signed by: HENRY GILMORE MD on Jun 22 2021 5:18PM EST Results-Findings * * *Final Report* * * DATE OF EXAM: Jun 22 2021 3:21PM [facility] 0239 - MRI SHOULDER WO IVCON [...] injury S (more content not included)... Normal [facility] CNOVon 12-03-2021 CNOV Office Visit (ORTHMN ) CHRISSY LAY ([id number]) 1965 F UPA Date Time Provider Department 12/03/21 10:45 AM RODOLFO BISHOP During your visit today, we recorded the following information about you: Rodolfo Bishop MD 12/03/2021 3:58 PM Signed SERVICE DATE: Patient would like to see someone today. PCP: Chrissy Lay REFERRING PROVIDER: Sam Jones [id number] [address] Consult requested for an opinion regarding the [...] fusion of cervical spine 04/25/2021 Mariely Kelley, CONVEYOR BELT OPERATOR.TRUST MANAGER No GERD (gastroesophageal reflux disease) 10/25/2019 Mariely Kelley CONVEYOR BELT OPERATOR.TRUST MANAGER No Nausea and vomiting 10/25/2019 Mariely Kelley CONVEYOR BELT OPERATOR.TRUST MANAGER No Mixed hyperlipidemia 10/25/2019 Mariely Kelley CONVEYOR BELT OPERATOR.TRUST MANAGER No History of failed repair of rotator cuff 10/25/2019 Mariely Kelley CONVEYOR BELT OPERATOR.TRUST MANAGER No Impingement syndrome of left shoulder 10/12/2019 Sam Jones MD No Visual disturbances 08/28/2019 Ryan Ortega MD No Traumatic complete tear of right rotator cuff 01/05/2019 Sam Jones MD No Symptomatic menopausal or female climacteric states 09/29/2017 Milo Huizar MD No Right lateral epicondylitis 12/20/2015 Jo Hanna PA-C No Microalbuminuria 07/14/2014 Tomi Sexton MD No Bleeding diathesis ([facility]) 04/11/2014 Vicky Louis MD No Climacteric 09/10/2013 Daniele Vyas No Diabetes mellitus type 2, controlled, without complications ([facility]) 05/18/2013 Ame De Santiago Mujica No Peripheral neuropathy (Chronic) Brandon Osorio MD No Overview Signed 07/24/2012 12:10 AM by Brandon Huston [facility] 07/22/2012 Insomnia Brandon Osorio MD No Overview Signed 03/01/2015 9:41 AM by Tomi Sexton Controlled substance agreement. 11/16 Arth (more content not included)... Normal [facility] CNOVon 11-22-2021 CNOV Office Visit (SPHTB) CHRISSY LAY ([id number]) 1965 F UPA Date Time Provider Department [...] noted. Motor: 5/5 IO, FPL, OP, hand oracle fusion developer, biceps, triceps, deltoid Sensory: SILT ulnar/median/radial distributions [...] CC:Sam Thomas (more content not included)... Normal [facility] Office Visit (SPHTB) CHRISSY LAY ([id number]) 1965 F UPA Date Time Provider Department 11/22/21 11:15 AM SAM JONES SPHTB During your visit today, we recorded the following information about you: Sam Jones MD 11/22/2021 11:47 AM Addendum FOLLOW UP APPOINTMENT Chief Complaint:/Reason for Visit: Established patient; Scheduled follow up appointment for new or existing problem and/or post-surgical evaluation History of Present Illness: Chrissy Louie Lay presents today for follow-up. She has [...] noted. Motor: 5/5 IO, FPL, OP, hand oracle fusion developer, biceps, triceps, deltoid Sensory: SILT ulnar/median/radial distributions [...] pain 4. Follow-up: PRN All of Chrissy Lya questions were answered today. (more content not included)... Normal [facility] Amorphous sediment detection in urine sediment by light microscopyon 09-24-2021 Amorphous sediment LM Ql (Urine sed) 1+ [facility] Work Phone: Basophil percentageon 2021 Basophil percentage 5-10 SEEN /hpf [facility] Work Phone: Bilirubin Test strip Ql (U)o n 09-24-2021 Bilirubin Ql (U) 1 mg/dL Negative [facility] Work Phone: Comment on above: COLOR OF URINE MAY A FFECT DIPSTICK RESULTS. Ketones Test strip Ql (U)on 09-24-2021 Ketones Ql (U) 5 mg/dl Negative [facility] Work Phone: Mucus LM Ql (Urine sed)on Mucus Ql (Urine sed) 0 SEEN /hpf [facility] Work Phone: Nitrite Test strip Ql (U)on 09-24-2021 Nitrite Ql (U) Negative Negative [facility] Work Phone: Protein Test strip Ql (U)on 09-24-2021 Protein Ql (U) 100 mg/dl Negative [facility] Work Phone: Squamous epithelial cells de tection in urine sediment by light microscopyon 09-24-2021 Epithelial cells.squamous LM Ql (Urine sed) 0-5 SEEN /hpf [facility] Work Phone: Urine blood detectionon 09-05 RBC Ql (U) Negative Negative [facility] Work Phone: RBC Ql (U) 0 SEEN /hpf [facility] Work Phone: Urine clarityon 09-24-2021 Clarity (U) Sl. Cloudy Clear [facility] Work Phone: Urine color determinationon 09-24-2021 Color (U) Yellow Yellow [facility] Work Phone: Urine glucose detectionon Glucose Ql (U) Normal mg/dl Normal [facility] Work Phone: Urine leukocyte esterase det ection by dipstickon 09-24-2021 Leukocyte esterase Test strip Ql (U) 25 /ul Negative [facility] Work Phone: Urine pHon 09-24-2021 pH (U) 6.0 [pH] [facility] Work Phone: Urine sediment bacteria coun t by microscopy (number/high power field)on 09-24-2021 Bacteria LM.HPF (Urine sed) [#/Area] 1 /[HPF] None Seen [facility] Work Phone: Urine specific gravity measu rementon 09-24-2021 Specific gravity (U) [Rel density] 1.025 [facility] Work Phone: Urobilinogen Auto test strip Ql (U)on 09-24-2021 [facility]robilinogen Ql (U) 1 [facility]: Absolute lymphocyte counton 08-24-2021 Lymphocytes Auto (Unsp spec) [#/Vol] 0.94 10*3/uL 0.83-4.51 [facility] Work Phone: Basophil percentageon 2021 Basophils/100 WBC (Bld) 0.2 % 0-1 [facility] Work Phone: Chloride [Moles/Vol] 101 mmol/L 98-107 [facility] Work Phone: Eosinophils/100 WBC (Bld) 0.2 % 0-5 [facility] Work Phone: Glucose [Mass/Vol] 240 mg/dL 74-106 [facility] Work Phone: Comment on above: Glucose result great er than or equal to 200 mg/dLsuggests DIABETES MELLITUS per A.D.A. criteria. Neutrophils (Bld) [#/Vol] 14.4 10*3/uL 2.0-7.7 [facility] Work Phone: Neutrophils/100 WBC (Bld) 88.4 % 47-70 [facility] Work Phone: Potassium [Moles/Vol] 3.4 mmol/L 3.5-5.1 [facility] Work Phone: [phone] Sodium [Moles/Vol] 133 mmol/L 136-145 [facility] Work Phone: WBC (Bld) [#/Vol] 16.3 10*3/uL 4.4-11.0 [facility] Work Phone: Blood erythrocytes count (nu mber/volume)on 08-24-2021 RBC (Bld) [#/Vol] 4.38 10*6/uL 4.2-5.4 [facility] Work Phone: Blood hemoglobin measurement (mass/volume)on 08-24-2021 Hemoglobin (Bld) [Mass/Vol] 13.6 g/dL 12.0-15.0 [facility] Work Phone: Blood lymphocytes/100 leukoc yteson 08-24-2021 Lymphocytes/100 WBC (Bld) 5.8 % 19-41 [facility] Work Phone: Blood monocytes/100 leukocyt eson 08-24-2021 Monocytes/100 WBC (Bld) 5.1 % 0-10 [facility] Work Phone: Blood platelet mean volumeon 08-24-2021 Platelet mean volume (Bld) [Entitic vol] 9.0 fL 6.2-12.0 [facility] Work Phone: Determination of erythrocyte mean corpuscular volume (MCV)on 08-24-2021 MCV (RBC) [Entitic vol] 94.7 fL 81-99 [facility] Work Phone: Hematocrit Auto (Bld) [Volum e fraction]on 08-24-2021 Hematocrit (Bld) [Volume fraction] 41.5 % 37-47 [facility] Work Phone: Laboratory - Chemistry and C hemistry - challengeon 08-24-2021 CO2 [Moles/Vol] 20.0 mmol/L 21.0-32.0 [facility] Work Phone: Magnesium [Mass/Vol] 1.0 mg/dL 1.6-2.6 [facility] Work Phone: Urea nitrogen/Creatinine [Mass ratio] 17.4 mg/mg 10-20 [facility] Work Phone: Laboratory - Hematology and Cell countson 08-24-2021 Erythrocyte distribution width (RBC) [Entitic vol] 45.1 fL 35.1-43.9 [facility] Work Phone: Erythrocyte distribution width (RBC) [Ratio] 13.0 % 11.6-14.6 [facility] Work Phone: Immature granulocytes/100 WBC (Bld) 0.300 % 0.0-0.9 [facility] Work Phone: Comment on above: IG% - Immature Granu locytes (promyelocytes, myelocytes and metamyelocytes) > 1% indicates that a LEFT SHIFT is Present. MCH (RBC) [Entitic mass] 31.1 pg 27.0-32.0 [facility] Work Phone: Nucleated RBC/100 WBC (Bld) [Ratio] 0 % 0-5 [facility] Work Phone: MCHC Auto (RBC) [Mass/Vol]on 08-24-2021 MCHC (RBC) [Mass/Vol] 32.8 g/dL 32-36 [facility] Work Phone: No Panel Informationon 08-24 Estimated Creatinine Clearance Calc 80.15 ml/min [facility] Work Phone: Estimated GFR (MDRD) Amer 95 mL/min >60 [facility] Work Phone: Comment on above: GFR Calc Estimated GFR (MDRD) Non-Af Amer 79 mL/min >60 [facility] Work Phone: Comment on above: Non- GFR Calc Platelets bldon 08-24-2021 Platelets (Bld) [#/Vol] 380 10*3/uL 150-450 [facility] Work Phone: Serum or plasma calcium azul urement (mass/volume)on 08-24-2021 Calcium [Mass/Vol] 9.5 mg/dL 8.5-10.1 [facility] Work Phone: Serum or plasma creatinine m easurement (mass/volume)on 08-24-2021 Creatinine [Mass/Vol] 0.80 mg/dL 0.55-1.02 [facility] Work Phone: Comment on above: The validity of the calculated GFR & GFRAA in patients over 70 years has not been determined. Clinical correlation is essential. Serum or plasma urea nitroge n measurement (mass/volume)on 08-24-2021 Urea nitrogen [Mass/Vol] 14 mg/dL 7-18 [facility] Work Phone: Thin prep Papanicolaou smear with manual screeningon 08-24-2021 Thin prep Papanicolaou smear with manual screening 12 5-15 [facility] Work Phone: Absolute lymphocyte counton 08-23-2021 Lymphocytes Auto (Unsp spec) [#/Vol] 2.87 10*3/uL 0.83-4.51 [facility] Work Phone: Basophil percentageon 2021 Basophil percentage 50-100 SEEN /hpf [facility] Work Phone: Basophils/100 WBC (Bld) 0.4 % 0-1 [facility] Work Phone: Chloride [Moles/Vol] 98 mmol/L 98-107 [facility] Work Phone: [phone] Eosinophils/100 WBC (Bld) 0.8 % 0-5 [facility] Work Phone: Glucose [Mass/Vol] 179 mg/dL 74-106 [facility] Work Phone: Comment on above: Fasting Glucose resu lt greater than or equal to 126 mg/dL suggests DIABETES MELLITUS per A.D.A. criteria. Neutrophils (Bld) [#/Vol] 7.6 10*3/uL 2.0-7.7 [facility] Work Phone: Neutrophils/100 WBC (Bld) 65.3 % 47-70 [facility] Work Phone: [phone] Potassium [Moles/Vol] 3.9 mmol/L 3.5-5.1 [facility] Work Phone: Comment on above: Slight Hemolysis, Re sult may be falsely increased. Sodium [Moles/Vol] 133 mmol/L 136-145 [facility] Work Phone: WBC (Bld) [#/Vol] 11.7 10*3/uL 4.4-11.0 [facility] Work Phone: Bilirubin Test strip Ql (U)o n 08-23-2021 Bilirubin Ql (U) Negative Negative [facility] Work Phone: Blood erythrocytes count (nu mber/volume)on 08-23-2021 RBC (Bld) [#/Vol] 4.29 10*6/uL 4.2-5.4 [facility] Work Phone: Blood hemoglobin measurement (mass/volume)on 08-23-2021 Hemoglobin (Bld) [Mass/Vol] 13.2 g/dL 12.0-15.0 [facility] Work Phone: Blood lymphocytes/100 leukoc yteson 08-23-2021 Lymphocytes/100 WBC (Bld) 24.6 % 19-41 [facility] Work Phone: Blood monocytes/100 leukocyt eson 08-23-2021 Monocytes/100 WBC (Bld) 8.2 % 0-10 [facility] Work Phone: Blood platelet mean volumeon 08-23-2021 Platelet mean volume (Bld) [Entitic vol] 8.8 fL 6.2-12.0 [facility] Work Phone: Culture, urineon 08-23-2021 Bacteria identified Cx Nom (U) Escherichia coli [facility] Work Phone: Determination of erythrocyte mean corpuscular volume (MCV)on 08-23-2021 MCV (RBC) [Entitic vol] 93.0 fL 81-99 [facility] Work Phone: Hematocrit Auto (Bld) [Volum e fraction]on 08-23-2021 Hematocrit (Bld) [Volume fraction] 39.9 % 37-47 [facility] Work Phone: Ketones Test strip Ql (U)on 08-23-2021 Ketones Ql (U) 5 mg/dl Negative [facility] Work Phone: Laboratory - Chemistry and C hemistry - challengeon 08-23-2021 CO2 [Moles/Vol] 24.0 mmol/L 21.0-32.0 [facility] Work Phone: Urea nitrogen/Creatinine [Mass ratio] 11.0 mg/mg 10-20 [facility] Work Phone: Laboratory - Hematology and Cell countson 08-23-2021 Erythrocyte distribution width (RBC) [Entitic vol] 44.6 fL 35.1-43.9 [facility] Work Phone: Erythrocyte distribution width (RBC) [Ratio] 13.1 % 11.6-14.6 [facility] Work Phone: Immature granulocytes/100 WBC (Bld) 0.700 % 0.0-0.9 [facility] Work Phone: Comment on above: IG% - Immature Granu locytes (promyelocytes, myelocytes and metamyelocytes) > 1% indicates that a LEFT SHIFT is Present. MCH (RBC) [Entitic mass] 30.8 pg 27.0-32.0 [facility] Work Phone: Nucleated RBC/100 WBC (Bld) [Ratio] 0 % 0-5 [facility] Work Phone: MCHC Auto (RBC) [Mass/Vol]on 08-23-2021 MCHC (RBC) [Mass/Vol] 33.1 g/dL 32-36 [facility] Work Phone: Mucus LM Ql (Urine sed)on Mucus Ql (Urine sed) RARE /hpf [facility] Work Phone: Nitrite Test strip Ql (U)on 08-23-2021 Nitrite Ql (U) Positive Negative [facility] Work Phone: No Panel Informationon 08-23 Estimated Creatinine Clearance Calc 41.37 ml/min [facility] Work Phone: Estimated GFR (MDRD) Amer 45 mL/min >60 [facility] Work Phone: Comment on above: GFR Calc Estimated GFR (MDRD) Non-Af Amer 37 mL/min >60 [facility] Work Phone: Comment on above: Non- GFR Calc Troponin I High Sensitivity 4 pg/mL 3.0-54.0 [facility] Work Phone: Comment on above: Please Note: New Hodan t Units and Gender Specific Reference Ranges. For more information see Policy Stat Procedure [place] High Sensitivity Troponin (TNIH) and attachments. Platelets bldon 08-23-2021 Platelets (Bld) [#/Vol] 378 10*3/uL 150-450 [facility] Work Phone: Protein Test strip Ql (U)on 08-23-2021 Protein Ql (U) 30 mg/dl Negative [facility] Work Phone: Serum or plasma calcium azul urement (mass/volume)on 08-23-2021 Calcium [Mass/Vol] 10.6 mg/dL 8.5-10.1 [facility] Work Phone: Serum or plasma creatinine m easurement (mass/volume)on 08-23-2021 Creatinine [Mass/Vol] 1.55 mg/dL 0.55-1.02 [facility] Work Phone: Comment on above: The validity of the calculated GFR & GFRAA in patients over 70 years has not been determined. Clinical correlation is essential. Serum or plasma urea nitroge n measurement (mass/volume)on 08-23-2021 Urea nitrogen [Mass/Vol] 17 mg/dL 7-18 [facility] Work Phone: Squamous epithelial cells de tection in urine sediment by light microscopyon 08-23-2021 Epithelial cells.squamous LM Ql (Urine sed) 0-5 SEEN /hpf [facility] Work Phone: Thin prep Papanicolaou smear with manual screeningon 08-23-2021 Thin prep Papanicolaou smear with manual screening 11 5-15 [facility] Work Phone: Urine blood detectionon 08-05 RBC Ql (U) 10 /ul Negative [facility] Work Phone: RBC Ql (U) 0-5 SEEN /hpf [facility] Work Phone: Urine clarityon 08-23-2021 Clarity (U) Cloudy Clear [facility] Work Phone: Urine color determinationon 08-23-2021 Color (U) Yellow Yellow [facility] Work Phone: Urine glucose detectionon Glucose Ql (U) Normal mg/dl Normal [facility] Work Phone: Urine leukocyte esterase det ection by dipstickon 08-23-2021 Leukocyte esterase Test strip Ql (U) 500 /ul Negative [facility] Work Phone: Urine pHon 08-23-2021 pH (U) 5.0 [pH] [facility] Work Phone: Urine sediment bacteria coun t by microscopy (number/high power field)on 08-23-2021 Bacteria LM.HPF (Urine sed) [#/Area] 4 /[HPF] None Seen [facility] Work Phone: Urine specific gravity measu rementon 08-23-2021 Specific gravity (U) [Rel density] 1.020 [facility] Work Phone: Urobilinogen Auto test strip Ql (U)on 08-23-2021 Urobilinogen Ql (U) Normal mg/dl [facility] Work Phone: XR Shoulder - left 3 Viewson 06-05-2021 Radiology Study observation (narrative) [facility] IMPRESSION: 1. No significant left shoulder abnormality Pharmacy Helper: PSCB Transcribe Date/Time: Jun 05 2021 10:22A Dictated by : NILDA GAYTAN MD This examination was interpreted and the report reviewed and electronically signed by: NILDA GAYTAN MD on Jun 05 2021 10:24AM [facility] DIVISION OF RADIOLOGY * * *Final Report* [...] lower cervical spine. DIVISION OF RADIOLOGY Provider, [facility] - 06/05/2021 * * *Final [...] IMPRESSION: 1. No significant left shoulder abnormality Pharmacy Helper: [facility] Transcribe Date/Time: Jun 05 2021 10:22A Dictated by : NILDA GAYTAN MD This examination was interpreted and the report reviewed and electronically signed by: NILDA GAYTAN MD on Jun 05 2021 10:24AM EST [facility] XR Shoulder - left 3 ViewsOr dered By: [facility] Provider on 06-05-2021 [facility] ANES POSTPROC EVALon ANES POSTPROC EVAL HNO ID: [id number] Author: Reymundo Gonzalez MD Service: ? Author Type: Physician Type: Anesthesia Postprocedure Evaluation Filed: 05/02/2021 2:04 PM Note Text: POST ANESTHESIA EVALUATION NOTE : 1965 Procedure Summary Date: 05/02/21 Room / Location: [facility] / [facility] Anesthesia Start: 1046 Anesthesia Stop: 1156 Procedure: [...] May 02, 2021 TIME: 2:04 PM CSN: [id number] [facility] ANES PRE-OPon 05-02-2021 ANES PRE-OP HNO ID: [id number] Author: Richie Tao III, MD Service: Anesthesiology [...] May 02, 2021 TIME: 10:16 AM CSN: [id number] [facility] BRIEF OP NOTon 05-02-2021 BRIEF OP NOT HNO ID: [id number] Author: Riana Brown MD Service: Orthopaedic Surgery Author Type: Fellow Type: Brief Op Note Filed: 05/02/2021 11:56 AM Note Text: BRIEF OPERATIVE NOTE SURGERY DATE: 05/02/2021 Incision/Procedure Start Time: 11:13am Incision Close/Procedure End Time: 11:48am Surgeon(s)/Proceduralist(s) and Wing Scorer(s): Sam Jones MD, attending Riana Brown MD [...] DATE: May 02, 2021 TIME: 8:56 AM [facility] HISTORY PHYSICALon HISTORY PHYSICAL HNO ID: [id number] Author: Riana Brown MD Service: Orthopaedic Surgery [...] DATE: May 02, 2021 TIME: 8:56 AM [facility] NURSING PROGon 05-02-2021 NURSING PROG HNO ID: [id number] Author: Ama Dang RN Service: Nursing Author Type: Registered Nurse Type: Nursing Progress Note Filed: 05/02/2021 12:23 PM Note Text: PATIENT EDUCATION TOPIC: PROCEDURE / SURGERY: Post-op Teaching: Med Administration, Symptom Management and Wound Care PATIENT NAME: Chrissy Lay [facility] READINESS TO LEARN COGNITIVE ABILITY: Alert and [...] (RECOMMENDATION): None Electronically Signed By: Ama Dang [facility] NURSING PRO HNO ID: [id number] Author: Ama Dang RN Service: Nursing Author Type: Registered Nurse Type: Nursing Progress Note Filed: 05/02/2021 12:22 PM Note Text: Patient and significant other speaking with Dr. Jones at this time. Vital signs remain stable, will continue to monitor. [facility] NURSING PRO HNO ID: [id number] Author: Shana Rene RN Service: Nursing Author Type: Registered Nurse Type: Nursing Progress Note Filed: 05/02/2021 9:49 AM Note Text: CHEPE Presley at bedside speaking with pt. Gildardo is aware of pt's c/o., awaiting urine results from pt's PCP. [facility] NURSING PRO HNO ID: [id number] Author: Shana Rene RN Service: Nursing Author [...] and dry. aware of the above c/o. [facility] NURSING PROG HNO ID: [id number] Author: Shana Rene RN Service: Nursing Author [...] Signed By: Shana Rene RN In Department: [facility] AMBULATORY SURGERY - [facility] OPERATIVE NOon 05-02-2021 OPERATIVE NO HNO ID: [id number] Author: Sam Jones MD Service: Orthopaedic Surgery Author Type: Physician Type: Operative Report Filed: 05/02/2021 12:00 PM Note Text: Chrissy Lay [id number] LOG ID: [id number] Surgery/Procedure Date: 05/02/2021 Incision/Procedure Start Time: 11:13 AM Incision Close/Procedure End Time: 11:48 AM Surgeon(s)/Proceduralist(s) and Wing Scorer(s): Surgeon(s) and Role: * Sam Jones MD - Primary * Riana Brown MD - Fellow Physician Wing Scorer: Laverne Duong PA-C Anesthesia: General Pre-Op/Pre-Procedure Diagnosis: [...] 02, 2021 TIME: 11:56 AM PAGER/CONTACT #: [facility] APTTon 02-21-2017 aPTT 22.2 s Normal 20.0-30.5 [facility] Comment on above: Result Comment: NOTE : The therapeutic time for Heparin anticoagulation,based on Xa activity inhibition, is an APTT of 46-80seconds. Performed By: #### H EMOG, APTT, PT, TROPN, CK3 ####[address] [place] [address] BMP, Whole Blood (POCT)on Anion gap 8.00 mmol/L Normal [facility] Comment on above: Performed By: #### B MPI ####[address] [place] [address] BUN (urea nitrogen) 13 mg/dL Normal 4-22 [facility] Comment on above: Performed By: #### B MPI ####[address] [address] Calcium, Ionized WB 4.5 mg/dL Normal 4.3-5.2 [facility] Comment on above: Result Comment: Perf ormed by [employer] CLIA ID: [id number] Performed By: #### B MPI ####[address] [place] [address] Chloride 102 mmol/L Normal 98-114 [facility] Comment on above: Performed By: #### B MPI ####[address] [place] [address] CO2 28 mmol/L Normal 21-29 [facility] Comment on above: Performed By: #### B MPI ####[address] [address] Creatinine 0.70 mg/dL Normal 0.60-1.30 [facility] Comment on above: Performed By: #### B MPI ####[address] [place] [address] eGFR (black) mL/min/{1.73_m2} Normal >60 [facility] Comment on above: Performed By: #### B MPI ####[address] [place] [address] eGFR (non-black) mL/min/{1.73_m2} Normal >60 [facility] Comment on above: Result Comment: Sour ce- MDRD equation with creatinine calibration to IDMS(NKDEP)eGFR not recommended for drug dose adjustment Performed By: #### B MPI ####[address] [place] [address] Glucose mass conc 189 mg/dL High 70-100 [facility] Comment on above: Performed By: #### B MPI ####[address] [place] [address] Potassium molar conc 4.0 mmol/L Normal 3.4-5.1 [facility] Comment on above: Performed By: #### B MPI ####[address] [place] [address] Sodium 138 mmol/L Normal 133-145 [facility] Comment on above: Performed By: #### B MPI ####[address] [address] CKon 02-21-2017 Creatine kinase (CK) 57 U/L Normal 26-192 [facility] Comment on above: Performed By: #### H EMOG, APTT, PT, TROPN, CK3 ####[address] [address] [address] Head or Brain w/o Contras ton 02-21-2017 CT Head or Brain w/o Contrast Patient Name: CHRISSY LAY CT Exam Date/Time 02/20/2017 22:07:[address] Head or Brain w/o Contrast Ordering Physician BRANDON KIRK Accession Number [id number] CPT4 Codes 44830 () Reason For Exam Stroke like symptoms [...] Transcribed Date and Time: 02/20/2017 10:24 Normal [facility] CULTURE URINEon 02-21-2017 CULTURE URINE Specimen Source Comment:Urine, clean catch [facility] Patient name: CHRISSY LAY MAniyaR.N.: [id number] : 1965 Age: 51 Sex: F Ord. Physician: NENA VILLAR Location: 1ENY-1E Copy to: NENA VILLAR DISCHARGED: 02/21/17 Adm. Date: 02/20/17 MICROBIOLOGYORDER#: [id number] COLLECTED: 02/20/17 22:36SOURCE: Urine Urine OE C O M M E N T S Specimen Source Comment:Urine, clean catchCULTURE URINE FINAL 02/21/17 23:[id number]/21/17No growth (<1,000 CFU/ml). Normal [facility] Comment on above: Performed By: #### B GLU ####[address] [address] [place] [address] Glucose,Bedsideon 02-21-2017 Glucose mass conc 167 mg/dL High 70-100 [facility] Comment on above: Result Comment: Test performed by glucose meter. Results may be 10%-15% lowerthan serum/plasma values. (CLIA ID [id number]) Performed By: #### B GLU ####[place] [address] Hemogramon 02-21-2017 Erythrocyte distribution width Auto Ratio (RBC) 13.8 % Normal 11.5-14.5 [facility] Comment on above: Performed By: #### H EMOG, APTT, PT, TROPN, CK3 ####[place] [address] Erythrocytes (RBC) 4.41 10*6/uL Normal 3.80-5.20 [facility] Comment on above: Performed By: #### H EMOG, APTT, PT, TROPN, CK3 ####[place] [address] Hematocrit (HCT) 40.1 % Normal 35.0-47.0 [facility] Comment on above: Performed By: #### H EMOG, APTT, PT, TROPN, CK3 ####[place] [address] Hemoglobin mass conc (Bld) 13.2 g/dL Normal 11.7-16.0 [facility] Comment on above: Performed By: #### H EMOG, APTT, PT, TROPN, CK3 ####[place] [address] MCH 29.9 pg Normal 26.0-34.0 [facility] Comment on above: Performed By: #### H EMOG, APTT, PT, TROPN, CK3 ####[place] [address] MCHC mass conc (RBC) 32.9 % Normal 32.0-36.0 [facility] Comment on above: Performed By: #### H EMOG, APTT, PT, TROPN, CK3 ####[place] [address] MCV 90.8 fL Normal 79.0-98.0 [facility] Comment on above: Performed By: #### H EMOG, APTT, PT, TROPN, CK3 ####[place] [address] Platelet mean volume (PMV) 7.6 fL Normal 7.4-10.4 [facility] Comment on above: Performed By: #### H EMOG, APTT, PT, TROPN, CK3 ####[place] [address] Platelets 322 10*3/uL Normal 140-440 [facility] Comment on above: Performed By: #### H EMOG, APTT, PT, TROPN, CK3 ####[place] [address] WBC (Leukocytes) 8.7 10*3/uL Normal 3.6-10.7 [facility] Comment on above: Performed By: #### H EMOG, APTT, PT, TROPN, CK3 ####[place] [address] Prothrombin Timeon 7 INR Coag RelTime (PPP) 0.9 {INR} Normal 0.9-1.1 [facility] Comment on above: Result Comment: Sarbjit mmended [...] #### H EMOG, APTT, PT, TROPN, CK3 ####[place] [address] Prothrombin time (PT) Coag time (PPP) 9.4 s Normal 9.0-12.0 [facility] Comment on above: Result Comment: . Performed By: #### H EMOG, APTT, PT, TROPN, CK3 ####[place] [address] Troponin Ion 02-21-2017 Troponin I.cardiac mass conc ng/mL Normal 0.000-0.045 [facility] Comment on above: Result Comment: 0.04 6 - 0.400 = Indeterminate> 0.400 = Consider Myocardial Injury Performed By: #### H EMOG, APTT, PT, TROPN, CK3 ####[address] [place] [address] Urinalysis,Macroon 7 Bilirubin (direct) Negative Normal Negative [facility] Comment on above: Performed By: #### U AMAC, UAMIC ####[address] [place] [address] Ketone,Urine Negative Normal Negative [facility] Comment on above: Performed By: #### U AMAC, UAMIC ####[place] [address] Occult Blood,Ur 25 {RBC}/uL Normal Negative [facility] Comment on above: Performed By: #### U AMAC, UAMIC ####[place] [address] Specific [place],Urine 1.010 Normal 1.005-1.030 [facility] Comment on above: Performed By: #### U AMAC, UAMIC ####[address] [place] [address] Total Protein,Urine Negative Normal Negative [facility] Comment on above: Performed By: #### U AMAC, UAMIC ####[address] [place] [address] Urine, appearance clear Normal Clear [facility] Comment on above: Performed By: #### U AMAC, UAMIC ####[address] [place] [address] Urine, color p. yel Normal Lt. Yellow [facility] Comment on above: Performed By: #### U AMAC, UAMIC ####[address] [place] [address] Urine, glucose presence NORM Normal Negative [facility] Comment on above: Performed By: #### U AMAC, UAMIC ####[address] [place] [address] Urine, nitrite presence Negative Normal Negative [facility] Comment on above: Performed By: #### U AMAC, UAMIC ####[address] [place] [address] Urine, pH 7.0 [pH] Normal 5.0-8.0 [facility] Comment on above: Performed By: #### U AMAC, UAMIC ####[address] [address] [place] [address] Urine, urobilinogen NORM Normal 0-1 [facility] Comment on above: Performed By: #### U AMAC, UAMIC ####[address] [place] [address] WBC (Leukocytes) Negative Normal Negative [facility] Comment on above: Performed By: #### U AMAC, UAMIC ####[address] [place] [address] Urinalysis,Microscopicon Urine, bacteria in sediment Few (1-5) Normal Negative [facility] Comment on above: Performed By: #### U AMAC, UAMIC ####[address] [place] [address] Urine, epithelial cells in sediment 0-2 Normal 3-5 [facility] Comment on above: Performed By: #### U AMAC, UAMIC ####[address] [place] [address] Urine, erythrocytes in sediment by area 0-2 Normal 0-2 [facility] Comment on above: Performed By: #### U AMAC, UAMIC ####[address] [place] [address] Urine, leukocytes in sedmiment 0-2 Normal 0-5 [facility] Comment on above: Performed By: #### U AMAC, UAMIC ####[address] [address] Lab Report: Bedside Glucoseo n 12-24-2016 Glucose 130 mg/dL High 70-110 [facility] Work Phone: Office Visit: Consult Reji wright and Rosita 12-18-2016 Dietary management education, guidance, and counseling (procedure) yes Invalid Interpretation Code [facility] Work Phone: Documentation of current medications (procedure) Done Invalid Interpretation Code [facility] Work Phone: Fall risk assessment No Invalid Interpretation Code [facility] Work Phone: Tobacco smoking status NHIS Never Invalid Interpretation Code [facility] Work Phone: Tobacco smoking status NHIS Never smoker [facility] Work Phone: Tobacco use HS Never smoker Invalid Interpretation Code [facility] Work Phone: Office Visit: Consult Colono scopy and EGDon 08-07-2015 MG Breast screening Normal Bilateral Invalid Interpretation Code [facility] Work Phone: Office Visit: Consult Colono scopy and EGDon 08-08-2014 General categories Cyto stain (Cvx/Vag) [Interp] Normal Invalid Interpretation Code [facility] Work Phone: Culture, urine Bacteria identified Cx Nom (U) Escherichia coli [facility] Work Phone: No Panel Information [facility] Vital Signs Date Time Vital Sign Value Performing Clinician Facility 08-14-2024 11:20-0500 Body temperature 98.42 [degF] ROSA BADILLO CONVEYOR BELT OPERATOR-TRUST MANAGER [facility] 08-14-2024 11:20-0500 Diastolic Blood Pressure Non-Invasive 79 mm[Hg] ROSA BADILLO CONVEYOR BELT OPERATOR-TRUST MANAGER [facility] 08-14-2024 11:20-0500 Heart rate 88 /min ROSA BADILLO CONVEYOR BELT OPERATOR-TRUST MANAGER [facility] 08-14-2024 11:20-0500 Reason For Taking VItal Signs ROSA BADILLO CONVEYOR BELT OPERATOR-TRUST MANAGER [facility] 08-14-2024 11:20-0500 Respiratory rate 18 /min ROSA BADILLO CONVEYOR BELT OPERATOR-TRUST MANAGER [facility] 08-14-2024 11:20-0500 Systolic Blood Pressure Non-Invasive 146 mm[Hg] ROSA KAPPER CONVEYOR BELT OPERATOR-TRUST MANAGER [facility] 08-14-2024 07:20-0500 Body temperature 98.24 [degF] ROSA KAPPER CONVEYOR BELT OPERATOR-TRUST MANAGER [facility] 08-14-2024 07:20-0500 Diastolic Blood Pressure Non-Invasive 89 mm[Hg] ROSA KAPPER CONVEYOR BELT OPERATOR-TRUST MANAGER [facility] 08-14-2024 07:20-0500 Heart rate 78 /min ROSA KAPPER CONVEYOR BELT OPERATOR-TRUST MANAGER [facility] 08-14-2024 07:20-0500 Reason For Taking VItal Signs ROSA KAPPER CONVEYOR BELT OPERATOR-TRUST MANAGER [facility] 08-14-2024 07:20-0500 Respiratory rate 18 /min ROSA KAPPER CONVEYOR BELT OPERATOR-TRUST MANAGER [facility] 08-14-2024 07:20-0500 Systolic Blood Pressure Non-Invasive 137 mm[Hg] ROSA KAPPER CONVEYOR BELT OPERATOR-TRUST MANAGER [facility] 08-14-2024 03:35-0500 Body temperature 98.24 [degF] ROSA KAPPER CONVEYOR BELT OPERATOR-TRUST MANAGER [facility] 08-14-2024 03:35-0500 Diastolic Blood Pressure Non-Invasive 76 mm[Hg] ROSA KAPPER CONVEYOR BELT OPERATOR-TRUST MANAGER [facility] 08-14-2024 03:35-0500 Heart rate 86 /min ROSA KAPPER CONVEYOR BELT OPERATOR-TRUST MANAGER [facility] 08-14-2024 03:35-0500 Reason For Taking VItal Signs ROSA KAPPER CONVEYOR BELT OPERATOR-TRUST MANAGER [facility] 08-14-2024 03:35-0500 Respiratory rate 18 /min ROSA BADILLO CONVEYOR BELT OPERATOR-TRUST MANAGER [facility] 08-14-2024 03:35-0500 Systolic Blood Pressure Non-Invasive 138 mm[Hg] ROSA BADILLO CONVEYOR BELT OPERATOR-TRUST MANAGER [facility] 08-12-2024 21:43-0500 Body height 172.7 cm ROSA BADILLO CONVEYOR BELT OPERATOR-TRUST MANAGER [facility] 08-12-2024 21:43-0500 Body weight 102 kg ROSA BADILLO CONVEYOR BELT OPERATOR-TRUST MANAGER [facility] 08-12-2024 21:43-0500 Body weight 34.2 kg/m2 ROSA ROSEER CONVEYOR BELT OPERATOR-TRUST MANAGER [facility] 08-12-2024 11:55-0500 Body weight 121 kg ROSA BADILLO CONVEYOR BELT OPERATOR-TRUST MANAGER [facility] 08-12-2024 11:55-0500 Heart rate 103 /min ROSA BADILLO CONVEYOR BELT OPERATOR-TRUST MANAGER [facility] 05-27-2022 14:35-0400 Body temperature 97.2 [degF] Dr. Karl Pichardo Work Phone: [facility] Work Phone: 05-27-2022 14:35-0400 Body weight 87.[address] Karl Pichardo Work Phone: [facility] Work Phone: 05-27-2022 14:35-0400 Diastolic blood pressure 93 mm[Hg] Dr. Karl Pichardo Work Phone: [facility] Work Phone: 05-27-2022 14:35-0400 Heart rate 92 /min Dr. Karl Pichardo Work Phone: [facility] Work Phone: 05-27-2022 14:35-0400 Respiratory rate 16 /min Dr. Karl Pichardo Work Phone: [facility] Work Phone: 05-27-2022 14:35-0400 SaO2% (BldA) [Mass fraction] 98 % Dr. Karl Pichardo Work Phone: [facility] Work Phone: 05-27-2022 14:35-0400 Systolic blood pressure 150 mm[Hg] Dr. Karl Pichardo Work Phone: [facility] Work Phone: 04-15-2022 15:10-0400 Body temperature 97.8 [degF] Dr. aKrl Pichardo Work Phone: [facility] Work Phone: 04-15-2022 15:10-0400 Diastolic blood pressure 74 mm[Hg] Dr. Karl Pichardo Work Phone: [facility] Work Phone: 04-15-2022 15:10-0400 Heart rate 102 /min Dr. Karl Pichardo Work Phone: [facility] Work Phone: 04-15-2022 15:10-0400 Respiratory rate 14 /min Dr. Karl Pichardo Work Phone: [facility] Work Phone: 04-15-2022 15:10-0400 SaO2% (BldA) [Mass fraction] 99 % Dr. Karl Pichardo Work Phone: [facility] Work Phone: 04-15-2022 15:10-0400 Systolic blood pressure 126 mm[Hg] Dr. Karl Pichardo Work Phone: [facility] Work Phone: 04-04-2022 16:31-0400 Diastolic blood pressure 76 mm[Hg] Dr. Karl Pichardo Work Phone: [facility] Work Phone: 04-04-2022 16:31-0400 Heart rate 96 /min Dr. Karl Pichardo Work Phone: [facility] Work Phone: 04-04-2022 16:31-0400 Respiratory rate 16 /min Dr. Karl Pichardo Work Phone: [facility] Work Phone: 04-04-2022 16:31-0400 SaO2% (BldA) [Mass fraction] 97 % Dr. Karl Pichardo Work Phone: [facility] Work Phone: 04-04-2022 16:31-0400 Systolic blood pressure 119 mm[Hg] Dr. Karl Pichardo Work Phone: [facility] Work Phone: 04-04-2022 14:13-0400 Body height 172.[address] Karl Pichardo Work Phone: [facility] Work Phone: 04-04-2022 14:13-0400 Body mass index (BMI) [Ratio] 28.1 kg/m2 Dr. Karl Pichardo Work Phone: [facility] Work Phone: 04-04-2022 14:13-0400 Body temperature 96.1 [degF] Dr. Karl Pichardo Work Phone: [facility] Work Phone: 04-04-2022 14:13-0400 Body weight 83.[address] Karl Pichardo Work Phone: [facility] Work Phone: 03-28-2022 15:40-0400 Body temperature 98.3 [degF] Dr. Karl Pichardo Work Phone: [facility] Work Phone: 03-28-2022 15:40-0400 Body weight 83.[address] Karl Pichardo Work Phone: [facility] Work Phone: 03-28-2022 15:40-0400 Diastolic blood pressure 86 mm[Hg] Dr. Karl Pichardo Work Phone: [facility] Work Phone: 03-28-2022 15:40-0400 Heart rate 88 /min Dr. Karl Pichardo Work Phone: [facility] Work Phone: 03-28-2022 15:40-0400 Respiratory rate 16 /min Dr. Karl Pichardo Work Phone: [facility] Work Phone: 03-28-2022 15:40-0400 SaO2% (BldA) [Mass fraction] 99 % Dr. Karl Pichardo Work Phone: [facility] Work Phone: 03-28-2022 15:40-0400 Systolic blood pressure 140 mm[Hg] Dr. Karl Pichardo Work Phone: [facility] Work Phone: 03-13-2022 11:14-0400 Body temperature 97.7 [degF] Dr. Karl Pichardo Work Phone: [facility] Work Phone: 03-13-2022 11:14-0400 Diastolic blood pressure 84 mm[Hg] Dr. Karl Pichardo Work Phone: [facility] Work Phone: 03-13-2022 11:14-0400 Heart rate 92 /min Dr. Karl Pichardo Work Phone: [facility] Work Phone: 03-13-2022 11:14-0400 Respiratory rate 14 /min Dr. Karl Pichardo Work Phone: [facility] Work Phone: 03-13-2022 11:14-0400 SaO2% (BldA) [Mass fraction] 98 % Dr. Karl Pichardo Work Phone: [facility] Work Phone: 03-13-2022 11:14-0400 Systolic blood pressure 138 mm[Hg] Dr. Karl Pichardo Work Phone: [facility] Work Phone: 03-13-2022 10:55-0400 Body height 172.[address] Karl Pichardo Work Phone: [facility] Work Phone: 03-11-2022 19:43-0400 Diastolic blood pressure 81 mm[Hg] Dr. Karl Pichardo Work Phone: [facility] Work Phone: 03-11-2022 19:43-0400 Heart rate 81 /min Dr. Karl Pichardo Work Phone: [facility] Work Phone: 03-11-2022 19:43-0400 Respiratory rate 16 /min Dr. Karl Pichardo Work Phone: [facility] Work Phone: 03-11-2022 19:43-0400 SaO2% (BldA) [Mass fraction] 97 % Dr. Karl Pichardo Work Phone: [facility] Work Phone: 03-11-2022 19:43-0400 Systolic blood pressure 128 mm[Hg] Dr. Karl Pichardo Work Phone: [facility] Work Phone: 03-11-2022 19:00-0400 Body temperature 97.9 [degF] Dr. Karl Pichardo Work Phone: [facility] Work Phone: 03-11-2022 15:20-0400 Body height 172.[address] Karl Pichardo Work Phone: [facility] Work Phone: 03-11-2022 15:20-0400 Body mass index (BMI) [Ratio] 27.6 kg/m2 Dr. Karl Pichardo Work Phone: [facility] Work Phone: 03-11-2022 15:20-0400 Body weight 82.[address] Karl Pichardo Work Phone: [facility] Work Phone: 03-11-2022 14:31-0400 Body temperature 98.5 [degF] Dr. Karl Pichardo Work Phone: [facility] Work Phone: 03-11-2022 14:31-0400 Diastolic blood pressure 76 mm[Hg] Dr. Karl Pichardo Work Phone: [facility] Work Phone: 03-11-2022 14:31-0400 Heart rate 99 /min Dr. Karl Pichardo Work Phone: [facility] Work Phone: 03-11-2022 14:31-0400 Respiratory rate 14 /min Dr. aKrl Pichardo Work Phone: [facility] Work Phone: 03-11-2022 14:31-0400 SaO2% (BldA) [Mass fraction] 99 % Dr. Karl Pichardo Work Phone: [facility] Work Phone: 03-11-2022 14:31-0400 Systolic blood pressure 126 mm[Hg] Dr. Karl Pichardo Work Phone: [facility] Work Phone: 03-04-2022 16:02-0400 Body height 172.7 cm Andry Dunne MD Work Phone: [facility] 03-04-2022 16:02-0400 Body weight 79.38 kg Andry Dunne MD Work Phone: [facility] 11-24-2021 11:54-0400 Heart rate 100 /min [facility] Work Phone: 11-24-2021 11:54-0400 Respiratory rate 18 /min [facility] Work Phone: 11-24-2021 11:54-0400 SaO2% (BldA) [Mass fraction] 99 % [facility] Work Phone: 11-24-2021 09:58-0400 Body height 172.72 cm [facility] Work Phone: 11-24-2021 09:58-0400 Body mass index (BMI) [Ratio] 26.6 kg/m2 [facility] Work Phone: 11-24-2021 09:58-0400 Body temperature 97.8 [degF] [facility] Work Phone: 11-24-2021 09:58-0400 Body weight 79.37 kg [facility] Work Phone: 11-24-2021 09:58-0400 Diastolic blood pressure 91 mm[Hg] [facility] Work Phone: 11-24-2021 09:58-0400 Systolic blood pressure 160 mm[Hg] [facility] Work Phone: 09-24-2021 15:11-0500 Body temperature 97 [degF] [facility] Work Phone: 09-24-2021 15:11-0500 Diastolic blood pressure 88 mm[Hg] [facility] Work Phone: 09-24-2021 15:11-0500 Heart rate 101 /min [facility] Work Phone: 09-24-2021 15:11-0500 Respiratory rate 17 /min [facility] Work Phone: 09-24-2021 15:11-0500 SaO2% (BldA) [Mass fraction] 97 % [facility] Work Phone: 09-24-2021 15:11-0500 Systolic blood pressure 154 mm[Hg] [facility] Work Phone: 09-24-2021 11:55-0500 Body mass index (BMI) [Ratio] 26.6 kg/m2 [facility] Work Phone: 09-24-2021 11:55-0500 Body weight 79.37 kg [facility] Work Phone: 08-25-2021 03:21-0500 Diastolic blood pressure 72 mm[Hg] [facility] Work Phone: 08-25-2021 03:21-0500 Heart rate 78 /min [facility] Work Phone: 08-25-2021 03:21-0500 Respiratory rate 16 /min [facility] Work Phone: 08-25-2021 03:21-0500 SaO2% (BldA) [Mass fraction] 97 % [facility] Work Phone: 08-25-2021 03:21-0500 Systolic blood pressure 128 mm[Hg] [facility] Work Phone: 08-24-2021 20:42-0500 Body mass index (BMI) [Ratio] 26.6 kg/m2 [facility] Work Phone: 08-24-2021 20:42-0500 Body temperature 98.8 [degF] [facility] Work Phone: 08-24-2021 20:42-0500 Body weight 79.37 kg [facility] Work Phone: 08-23-2021 16:12-0500 Diastolic blood pressure 85 mm[Hg] [facility] Work Phone: 08-23-2021 16:12-0500 Heart rate 96 /min [facility] Work Phone: 08-23-2021 16:12-0500 Respiratory rate 16 /min [facility] Work Phone: 08-23-2021 16:12-0500 SaO2% (BldA) [Mass fraction] 97 % [facility] Work Phone: 08-23-2021 16:12-0500 Systolic blood pressure 119 mm[Hg] [facility] Work Phone: 08-23-2021 11:18-0500 Body mass index (BMI) [Ratio] 27.6 kg/m2 [facility] Work Phone: 08-23-2021 11:18-0500 Body weight 82.5 kg [facility] Work Phone: 08-23-2021 10:23-0500 Body temperature 95.9 [degF] [facility] Work Phone: 12-18-2016 10:50-0400 BMI (Body Mass Index) 29.8 kg/m2 Rita Unger RN RN [facility] Work Phone: 12-18-2016 10:50-0400 Body Temperature 98.3 [degF] Rita Unger RN RN [facility] Work Phone: 12-18-2016 10:50-0400 Body Temperature 98.29 [degF] Rita Unger RN RN [facility] Work Phone: 12-18-2016 10:50-0400 Body weight 88.91 kg Rita Unger RN RN [facility] Work Phone: 12-18-2016 10:50-0400 Body weight 88.9 kg Rita Unger RN RN [facility] Work Phone: 12-18-2016 10:50-0400 BP Diastolic 91 mm[Hg] Rita Unger RN RN [facility] Work Phone: 12-18-2016 10:50-0400 BP Systolic 127 mm[Hg] Rita Unger RN RN [facility] Work Phone: 12-18-2016 10:50-0400 BSA (Body Surface Area) 2.03 m2 Rita Unger RN RN [facility] Work Phone: 12-18-2016 10:50-0400 Height 172.72 cm Rita Unger RN RN [facility] Work Phone: 12-18-2016 10:50-0400 Pulse (Heart Rate) 101 /min Rita Unger RN RN [facility] Work Phone: 12-18-2016 10:50-0400 Pulse Oximetry 99 % Rita Unger RN RN [facility] Work Phone: 12-18-2016 10:50-0400 Respiratory Rate 16 /min Rita Unger RN RN [facility] Work Phone: 12-18-2016 10:50-0400 Weight 88.91 kg Rita Unger RN RN [facility] Work Phone: 12-18-2016 10:50-0400 Weight 88.9 kg Rita Unger RN RN [facility] Work Phone: Encounters Encounter Date Encounter Type Care Provider Facility Start: 04-12-2025 End: 04-12-2025 Emergency department patient visit Hawk Mejia Facility:[facility] Start: 04-09-2025 End: 04-09-2025 Emergency department patient visit Chantale Ramsey NP Facility:[facility] Start: 04-08-2025 End: 04-12-[address] REBEKAH MCGUIRE DO Facility:[facility] Start: 04-08-2025 End: 04-12-[address] REBEKAH MCGUIRE DO [facility] Start: 04-08-2025 End: 04-08-[address] REBEKAH MCGUIRE DO Facility[facility] Start: 04-08-2025 End: 04-08-[address] REBEKAH MCGUIRE DO [facility] Start: 02-01-2025 ambulatory Chantale Ramsey NP Fa cility:[facility] Start: 01-31-2025 ambulatory Chantale Ramsey NP Fa cility:[facility] Start: 01-31-2025 End: 01-31-2025 ambulatory Chantale Ramsey NP Facility:[facility] Start: 01-17-2025 End: 01-17-2025 ambulatory Sandi Darrell Facility:[facility] Start: 01-13-2025 ambulatory Chantale Ramsey NP Fa cility:[facility] Start: 01-13-2025 End: 01-13-2025 ambulatory Ame Eastman Facility:[facility] Start: 01-07-2025 End: 01-07-2025 ambulatory Chantale Ramsey [place] [place] Start: 01-06-2025 End: 01-07-2025 ambulatory PHY WO ID REFERRING Facility: Start: 01-06-2025 End: 01-06-2025 Patient encounter procedure PHY WO ID REFERRING [facility] Start: 12-23-2024 End: 12-23-2024 Emergency department patient visit Chantale Ramsey NP Facility:[facility] Start: 12-21-2024 End: 12-21-2024 ambulatory Chantale Ramsey Facility:[facility] Start: 12-01-2024 End: 12-01-2024 ambulatory Chantale Ramsey NP Facility:[facility] Start: 11-07-2024 End: 11-07-2024 Emergency department patient visit Hawk Mejia Facility:[facility] Start: 10-26-2024 End: 10-30-2024 ambulatory ROSA HOLGUIN DO Facility:[facility] Start: 10-20-2024 End: 10-20-2024 ambulatory Sandi Darrell Facility:[facility] Start: 10-18-2024 End: 10-18-2024 ambulatory Sandi Darrell Facility:[facility] Start: 10-18-2024 End: 10-18-2024 ambulatory Sandi Darrell Facility:[facility] Start: 08-12-2024 End: 08-14-2024 Evaluation and management of inpatient ROSA BADILLO CONVEYOR BELT OPERATOR-TRUST MANAGER [facility] Start: 08-05-2024 End: 08-05-2024 ambulatory Noe MO Facility:[facility] Start: 07-23-2024 End: 07-23-[address] [facility] Start: 07-19-2024 End: 07-19-2024 ambulatory Sandi Darrell Facility:[facility] Start: 06-17-2024 End: 06-17-2024 ambulatory Karl Mollison Facility:[facility] Start: 04-23-2024 End: 04-23-2024 ambulatory Sandi Darrell Facility:[facility] Start: 04-21-2024 End: 04-21-2024 ambulatory Sandi Darrell Facility:[facility] Start: 04-16-2024 End: 04-16-2024 ambulatory Chantale Ramsey NP Facility:[facility] Start: 03-10-2024 End: 03-10-2024 ambulatory CHANTALE RAMSEY CONVEYOR BELT OPERATOR-TRUST MANAGER Facility:[facility] Start: 02-09-2024 End: 02-13-2024 ambulatory HUNG MATA MD Facility:[facility] Start: 02-09-2024 End: 02-13-2024 Outreach Lab HUNG MATA MD [facility] Start: 12-26-2023 End: 12-26-2023 ambulatory CHANTALE RAMSEY CONVEYOR BELT OPERATOR-TRUST MANAGER Facility:[facility] Start: 12-26-2023 End: 12-26-2023 Patient encounter procedure CHANTALE RAMSEY CONVEYOR BELT OPERATOR-TRUST MANAGER [facility] Start: 11-07-2023 End: 11-07-2023 ambulatory PIPER WALL CONVEYOR BELT OPERATOR-TRUST MANAGER Facility:[facility] Start: 10-17-2023 End: 10-17-2023 ambulatory CHANTALE RAMSEY CONVEYOR BELT OPERATOR-TRUST MANAGER Facility:B Start: 10-17-2023 End: 10-17-2023 Patient encounter procedure CHANTALE RAMSEY CONVEYOR BELT OPERATOR-TRUST MANAGER [facility] Start: 09-25-2023 End: 09-29-2023 ambulatory CHANTALE RAMSEY CONVEYOR BELT OPERATOR-TRUST MANAGER Facility:B Start: 09-25-2023 End: 09-25-2023 ambulatory MANUEL VERONICA PA-C Facility:B Start: 09-09-2023 End: 09-09-2023 ambulatory CHANTALE RAMSEY CONVEYOR BELT OPERATOR-TRUST MANAGER Facility:B Start: 09-09-2023 End: 09-09-2023 Patient encounter procedure CHANTALE RAMSEY CONVEYOR BELT OPERATOR-TRUST MANAGER [facility] Start: 08-18-2023 End: 08-18-2023 ambulatory CHANTALE RAMSEY CONVEYOR BELT OPERATOR-TRUST MANAGER Facility:B Start: 07-25-2023 End: 07-29-2023 ambulatory PIPER Melendez MAE CONVEYOR BELT OPERATOR-TRUST MANAGER Facility:B Start: 07-25-2023 End: 07-29-2023 Outreach Lab PIPER Melendez WALL CONVEYOR BELT OPERATOR-TRUST MANAGER [facility] Start: 05-14-2023 End: 05-18-2023 ambulatory CHANTALE Anayeli BRAULIO CONVEYOR BELT OPERATOR-TRUST MANAGER Facility:B Start: 05-14-2023 End: 05-18-2023 Outreach Lab CHANTALE Anayeli BRAULIO CONVEYOR BELT OPERATOR-TRUST MANAGER [facility] Start: 04-29-2023 End: 04-29-2023 ambulatory CHANTALE RAMSEY CONVEYOR BELT OPERATOR-TRUST MANAGER Facility:B Start: 02-18-2023 End: 02-18-[address] ELVIRA ROQUE DO [facility] Start: 01-16-2023 End: 01-16-2023 Patient encounter procedure CHANTALE RAMSEY CONVEYOR BELT OPERATOR-TRUST MANAGER [facility] Start: 01-03-2023 End: 01-03-2023 Patient encounter procedure CHANTALE Anayeli RODRIGUEZER CONVEYOR BELT OPERATOR-TRUST MANAGER [facility] Start: 11-06-2022 End: 11-06-2022 Patient encounter procedure CHANTALE Anayeli RAMSEY CONVEYOR BELT OPERATOR-TRUST MANAGER [facility] Start: 10-31-2022 End: 11-01-2022 Evaluation and management of inpatient SLOAN MUJICA Facility:[facility] Start: 10-30-2022 End: 10-31-2022 Emergency department patient visit REJI ANDREWS JUAQUIN Facility:[facility] Start: 06-04-2022 End: 06-04-[address] Karl Pichardo Work Phone: [facility] Work Phone: Start: 06-04-2022 End: 06-04-[address] Karl Pichardo [facility] Start: 05-27-2022 End: 05-27-[address] Karl Pichardo Work Phone: [facility] Start: 04-15-2022 End: 04-15-[address] Karl Pichardo Work Phone: [facility] Start: 04-04-2022 End: 04-04-2022 Emergency department patient visit Dr. Karl Pichardo Work Phone: [facility] Start: 03-28-2022 End: 03-28-[address] Karl Pichardo Work Phone: [facility] Start: 03-13-2022 End: 03-13-[address] Karl Pichardo Work Phone[facility] Start: 03-13-2022 End: 03-13-[address] Karl Picharod Work Phone: [facility] Start: 03-11-2022 End: 03-11-2022 Emergency department patient visit Dr. Karl Pichardo Work Phone[facility] Start: 03-11-2022 End: 03-11-[address] Karl Pichardo Work Phone: [facility] Start: 03-05-2022 Orders Only Livia MO-Braulio Work Phone: Orthopaedics Comment on above: Rotator cuff tear ar thropathy of right shoulder (Primary Dx) Start: 03-04-2022 End: 03-04-2022 ambulatory KARL PICHARDO Facility:[facility] Start: 03-04-2022 End: 03-04-2022 Patient encounter procedure Andry Dunne MD Work Phone: Orthopaedics Comment on above: Impingement syndrome of left shoulder (Primary Dx); Chronic left shoulder pain Start: 12-03-2021 End: 12-03-2021 ambulatory RODOLFO BISHOP Facility:[facility] Start: 12-03-2021 End: 12-03-2021 Patient encounter procedure Rodolfo Bishop MD Work Phone: Orthopaedics Comment on above: History of failed re pair of rotator cuff (Primary Dx); Rotator cuff tear arthropathy of right shoulder Start: 11-29-2021 Orders Only Rodolfo Bishop MD Work Phone: [facility] Comment on above: Pain (Primary Dx) Start: 11-24-2021 End: 11-24-2021 Emergency department [facility] Start: 11-22-2021 End: 11-22-2021 ambulatory SAM JONES Facility:[facility] Start: 11-22-2021 End: 11-22-2021 Patient encounter procedure Sam Jones MD Work Phone: [facility] Comment on above: Rotator cuff tear ar thropathy, right (Primary Dx); Traumatic complete tear of right rotator cuff, subsequent encounter Tear of left glenoid labrum, subsequent encounter (Primary Dx); Rotator cuff syndrome of left shoulder Start: 09-24-2021 End: 09-24-2021 Emergency department patient visit [facility] Start: 08-24-2021 End: 08-25-2021 Emergency department patient visit [facility] Start: 08-23-2021 End: 08-23-2021 Emergency department patient visit [facility] Start: 06-05-2021 End: 06-05-2021 Subsequent hospital visit by physician Xr [facility] Work Phone: Radiology Comment on above: Pain [R52] Start: 02-20-2017 Ambulatory UNKNOWN PROVIDER [facility] Start: 02-19-2017 Ambulatory Nena [facility] Start: 08-30-2009 End: 01-13-2013 Patient encounter status Xr Jamil Work Phone: [facility] Procedures Date Procedure Procedure Detail Performing [...] Start: 10-06-2020 Incision AND drainage CHANTALE RAMSEY CONVEYOR BELT OPERATOR-TRUST MANAGER Comment on above: cervical neck hematoma Start: 09-28-2020 Excision of cervical intervertebral disc CHANTALE RAMSEY CONVEYOR BELT OPERATOR-TRUST MANAGER Start: 10-25-2019 History of repair of musculotendinous [...] Jones MD Work Phone: Appendectomy CHANTALE VILLA CONVEYOR BELT OPERATOR-TRUST MANAGER Cholecystectomy CHANTALE APONTE CONVEYOR BELT OPERATOR-TRUST MANAGER Colonoscopy CHANTALE VILLA CONVEYOR BELT OPERATOR-TRUST MANAGER Diagnostic laparosco py of female pelvis CHANTALE RAMSEY CONVEYOR BELT OPERATOR-TRUST MANAGER Comment on above: Left ovarian cyst removed Entire knee region ( body structure) CHANTALE RAMSEY CONVEYOR BELT OPERATOR-TRUST MANAGER Comment on above: Right Epidural injection o f lumbar spine using fluoroscopic guidance CHANTALE RAMSEY CONVEYOR BELT OPERATOR-TRUST MANAGER Esophagogastroduodenoscopy Kailash RAMSEY CONVEYOR BELT OPERATOR-TRUST MANAGER H/O: surgery History of rever talib of tubal ligation H/O: tubal ligation History of t ubal ligation Herniation of rectum into vagina (disorder) CHANTALE RAMSEY CONVEYOR BELT OPERATORLucidux History of appendectomy History of appendectomy History [...] story of total hysterectomy Hysterectomy CHANTALE VILLA CONVEYOR BELT OPERATORLucidux Ligation of fallopian tube E LAUREN RAMSEY CONVEYOR BELT OPERATORLucidux Open reduction of fr acture of ankle with internal fixation CHANTALE RAMSEY CONVEYOR BELT OPERATORLucidux Comment on above: Left Shoulder region stru cture (body structure) CHANTALE RAMSEY CONVEYOR BELT OPERATORLucidux Comment on above: Right x6 Urine culture Dr. Karl bowden Work Phone: Plan of Treatment Date Care Activity Detail Author Start: 04-20-2029 Colonoscopy COLONOSCOPY [facility] Start: 04-20-2029 COLORECTAL CANCER SCREENING COLORECTAL CANCER SCREENING [facility] Start: 04-20-2029 Screening for malign ant neoplasm of colon [facility] Start: 03-26-2026 Urine microalbumin profile [facility] Start: 04-04-2024 Covid-19 Vaccine ( season) Covid-19 Vaccine ( season) [facility] Start: 04-04-2024 Influenza vaccination Influenza Vacc ine (#1) [facility] Start: 01-31-2023 Hemoglobin A1c measurement HbA1C [facility] Start: 05-27-2022 Patient referral [facility] Work Phone: Start: 04-04-2022 Influenza vaccination [facility] Start: 04-04-2022 [facility] Work Phone: Start: 03-01-2022 Mammography MAMMOGRAM [facility] Start: 03-01-2022 Screening for malign ant neoplasm of breast Mammogram Screening [facility] Start: 08-28-2020 Glaucoma screening Dilated Retinal E xam [facility] Start: 08-28-2020 Hepatitis C antibody , confirmatory test DILATED RETINAL EXAM [facility] Start: 03-03-2020 HPV TESTING HPV TESTING [facility] Start: 03-03-2020 PAP TESTING PAP TESTING [facility] Start: 03-03-2020 Screening for malign ant neoplasm of cervix Cervical Cancer Screening [facility] Start: 11-18-2019 Hemoglobin A1c/Hemoglobin.total in Blood HBA1C [facility] Start: 06-28-2017 3 comp foot exam completed DIABETIC FOOT EXAM [facility] Start: 06-28-2017 Diabetic foot examination Diabetic Foot Exam [facility] Start: 06-24-2017 Hepatitis B surface antibody level LDL CHOLESTEROL [facility] Start: 03-26-2017 Hepatitis B screening URINE AL BUMIN:CREATININE RATIO [facility] Start: 02-13-2017 Adult depression screening assessment DEPRESSION SCREENING [facility] Start: 12-24-2016 End: 12-24-2016 Appointment [facility] [employer] Work Phone: Start: 12-24-2016 End: 12-24-2016 Appointment Appointment [facility] [employer] Work Phone: Start: 12-18-2016 End: 12-18-2016 Appointment Appointment [facility] [employer] Work Phone: Start: 12-18-2016 End: 12-18-2016 Appointment Appointment [facility] [employer] Work Phone: Start: 12-18-2016 End: 12-24-2016 Diagnostic colonoscopy Colonoscopy [facility] [employer] Work Phone: Start: 12-18-2016 End: 12-24-2016 Upper GI endoscopy, biopsy Upper gastrointestinal endoscopy; with biopsy [facility] [employer] Work Phone: Start: 2016 SHINGRIX VACCINE (1 of 2) SHINGRIX VACCINE (1 of 2) [facility] Start: 2011 COLOGUARD (FIT-DNA) COLOGUARD (FIT-D NA) [facility] Start: [address] COLONOGRAPHY [facility] Start: 2011 FECAL OCCULT BLOOD FECAL OCCULT BLOO D [facility] Start: 2011 Screening for malign ant neoplasm of colon [facility] Start: 2011 SIGMOIDOSCOPY SIGMOIDOSCOPY [facility] Start: 05-04-2005 PNEUMOCOCCAL (2 - PCV) PNEUMOCOCCAL (2 - PCV) [facility] Start: 05-04-2005 Pneumococcal vaccination Pneumococcal Vaccine (2 of 2 - PCV) [facility] Start: 1984 ANNUAL PCP TEAM INVESTIGATIVE ANALYST AVE DISEASE VISIT ANNUAL PCP TEAM CHRONIC DISEASE VISIT [facility] Start: 1984 BP CONTROLLED (<130/80) BP CONTROLLE D (<130/80) [facility] Start: 1984 Depression Screening Depression Scre ening [facility] Start: 1984 SPIROMETRY SPIROMETRY [facility] Start: 1971 COVID-19 VACCINE (1) COVID-19 VACCIN E (1) [facility] Start: 1966 COVID-19 VACCINE (#1) COVID-19 VACCI NE (#1) [facility] Bacteria identified in Urine by Culture Urine Culture [facility] Work Phone: Patient Education [facility] Work Phone: Patient referral [facility] Work Phone: End: 12-29-2022 XR SHOULDER GENERAL 3V OR MORE AP/TRUE AP/OTHER RIGHT XR SHOULDER GENERAL 3V OR MORE AP/TRUE AP/OTHER RIGHT Radiology Routine Pain 1 Occurrences starting 11/29/2021 until 12/29/2022 [facility] Work Phone: Comment on above: 1 Occurrences starti ng 11/29/2021 until 12/29/2022 End: 04-05-2023 XR SHOULDER GENERAL 3V OR MORE AP/TRUE AP/OTHER RIGHT XR SHOULDER GENERAL 3V OR MORE AP/TRUE AP/OTHER RIGHT Radiology Routine Rotator cuff tear arthropathy of right shoulder 1 Occurrences starting 03/05/2022 until 04/05/2023 [facility] Work Phone: Comment on above: 1 Occurrences starti ng 03/05/2022 until 04/05/2023 [facility] Immunizations Immunization Date Immunization Notes Care Provider Orestes hayes 05-06-2017 influenza virus vaccine, unspecified formulation CHANTALE RAMSEY CONVEYOR BELT OPERATOR-TRUST MANAGER [facility] 05-06-2017 influenza, injectabl e, quadrivalent, contains preservative Sam Jones MD Work Phone: [facility] 03-26-2016 tetanus toxoid, reduced diphtheria toxoid, and acellular pertussis vaccine, adsorbed Sam Jones MD Work Phone: [facility] Work Phone: 06-02-2015 influenza virus vaccine, unspecified formulation CHANTALE RAMSEY CONVEYOR BELT OPERATOR-TRUST MANAGER [facility] 06-02-2015 influenza, injectabl e, quadrivalent, contains preservative Sam Jones MD Work Phone: [facility] 01-24-2015 tuberculin skin test ; purified protein derivative solution, intradermal Xr [employer] Work Phone: [facility] 07-13-2014 influenza virus vaccine, unspecified formulation CHANTALE RAMSEY CONVEYOR BELT OPERATOR-TRUST MANAGER [facility] 07-13-2014 influenza, seasonal, injectable Sam Jones MD Work Phone: [facility] 05-06-2013 influenza virus vaccine, unspecified formulation Sam Jones MD Work Phone: [facility] 05-08-2012 influenza virus vaccine, unspecified formulation Sam Jones MD Work Phone: [facility] Work Phone: 10-22-2011 hepatitis B vaccine, adult dosage Sam Jones MD Work Phone: [facility] Work Phone: 08-09-2011 tuberculin skin test ; purified protein derivative solution, intradermal Xr [employer] Work Phone: [facility] 07-31-2011 tuberculin skin test ; purified protein derivative solution, intradermal Xr [employer] Work Phone: [facility] Work Phone: 04-26-2011 hepatitis B vaccine, adult dosage Sam Jones MD Work Phone: [facility] 04-26-2011 influenza virus vaccine, unspecified formulation Sam Jones MD Work Phone: [facility] 03-21-2011 hepatitis B vaccine, adult dosage Sam Jones MD Work Phone: [facility] Work Phone: 03-21-2011 tuberculin skin test ; purified protein derivative solution, intradermal Xr [employer] Work Phone: [facility] 08-21-2006 diphtheria and tetan us toxoids, adsorbed for pediatric use Sam Jones MD Work Phone: [facility] 06-12-2005 influenza virus vaccine, whole virus Sam Jones MD Work Phone: [facility] Work Phone: 05-04-2004 pneumococcal polysaccharide vaccine, 23 valent Sam Jones MD Work Phone: [facility] 10-03-1999 tetanus and diphther ia toxoids, adsorbed, preservative free, for adult use (2 Lf of tetanus toxoid and 2 Lf of diphtheria toxoid) Sam Jones MD Work Phone: [facility] Payers Date Payer Category Payer Private Health Insurance [id number] 2025 Unknown [id number] 2023 Self-pay [id number] 2022 Unknown [id number] 2020 Medicaid [facility] MEDICAID [facility] PL[facility] MEDICAID [id number] 2020-Present [phone] [address] [place] [address] Medicaid [id number] 2020 Medicaid [id number]. [id number] 2020 Unknown [id number] 2018 Unknown 2018 Unknown [facility] [id number] 2018-Present [phone] [address] [place] [address] [facility] [id number]. [id number] 2018 Unknown [id number] 2016 Unknown [id number] 1966 Unknown [id number] 2.16.840.1.326135.3.579.2. 1966 Unknown [id number] 2.16.840.1.981469.3.579.2. 1966 Unknown [id number] 2.16.840.1.397442.3.579.2. 1966 Unknown [id number] 2.16.840.1.107074.3.579.2. 1966 Unknown [id number] 2.16.840.1.189261.3.579.2. 1966 Unknown [id number] 2.16.840.1.682189.3.579.2. 1966 Unknown [id number] 2.16.840.1.019415.3.579.2. 1966 Unknown [id number] 2.16.840.1.435325.3.579.2. 1966 Unknown [id number] 2.16.840.1.430871.3.579.2. 1966 Unknown [id number] 2.16.840.1.524994.3.579.2 1966 Unknown [id number] 2.16.840.1.822580.3.579.2 1966 Unknown [id number] 2.840.1.988791.3.579.2 1966 Unknown [id number] 2.16.840.1.334737.3.579.2 1966 Unknown [id number] 2.840.1.544199.3.579.2 1966 Unknown [id number] 2.840.1.620296.3.579.2 1966 Unknown [id number] 2.840.1.727116.3.579.2 1966 Unknown [id number] 2.840.1.388136.3.579.2 1966 Unknown [id number] 2.840.1.657592.3.579.2 1966 Unknown [id number] 2.840.1.916047.3.579.2. 1966 Unknown [id number] .840.1.961329.3.579.2 Unknown [id number] Unknown [id number] 2.16840.1.749621.3.579.2. 462 Unknown [id number] 2.16840.1.116630.3.579.2. 462 Unknown [id number] 2.16840.1.964098.3.579.2. 462 Unknown [id number] 2.16.840.1.912871.3.579.2. 462 Unknown [id number] 2.16.840.1.794944.3.579.2. 462 Unknown [id number] 2.16.840.1.628701.3.579.2. 462 Unknown [id number] 2.16.840.1.445777.3.579.2. 462 Unknown [id number] 2.16.840.1.385674.3.579.2. 462 Unknown [id number] 2.16.840.1.382774.3.579.2. 462 Unknown [id number] 2.16.840.1.607673.3.579.2. 462 Unknown [id number] 2.16.840.1.130474.3.579.2. 462 Unknown [id number] 2.16.840.1.707219.3.579.2. 462 Unknown [id number] 2.16.840.1.789602.3.579.2. 462 Unknown [id number] 2.16.840.1.065621.3.579.2. 462 Unknown [id number] 2.16.840.1.269192.3.579.2. 462 Unknown [id number] 2.16.840.1.881850.3.579.2. 462 Unknown [id number] 2.16.840.1.129396.3.579.2. 462 Unknown [id number] 2.16840.1.328029.3.579.2. 462 Unknown [id number] 2.16.840.1.711170.3.579.2. 462 Unknown [id number] 2.16.840.1.013459.3.579.2. 462 Unknown [id number] 2.16.840.1.489854.3.579.2. 462 Unknown [id number] 2.16.840.1.666889.3.579.2. 462 Unknown [id number] 2.16.840.1.672609.3.579.2. 462 Unknown [id number] 2.16.840.1.766948.3.579.2. 462 Unknown [id number] 2.16.840.1.236570.3.579.2. 462 Social History Date Type Detail Facility Start: 01-11-2011 End: 12-08-2024 Tobacco smoking status NHIS Never smoked tobacco [facility] Start: 06-05-2021 End: 11-22-2021 Alcohol intake Current drinker of alcohol (finding) [facility] Start: 10-25-2019 History SDOH Alcohol Comment 2 vodka mixed drinks nightly [facility] Start: 1965 Sex Assigned At Female [facility] Start: 05-06-2021 End: 03-04-2022 Exposure to SARS-CoV-2 (event) Not sure [facility] Start: 11-24-2021 End: 05-27-2022 Tobacco smoking status NYIS Unknown if ever smoked [facility] Work Phone: Start: 08-17-2020 None [facility] Work Phone: Start: 08-20-2019 Alone [facility] Work Phone: Start: 10-04-2020 Non-smoker [facility] Work Phone: Start: 07-09-2020 End: 03-04-2022 Alcohol intake [facility] Start: 01-11-2011 Tobacco use and exposure Smokeless tobacco non-user [facility] Work Phone: Sex Assigned At [facility] Start: 07-09-2020 End: 06-05-2021 Tobacco use panel [facility] National Score (1-10 0), lower number is lower risk Not on file [facility] Start: 08-27-2019 Gender identity Identifies as female gender (finding) [facility] Start: 08-27-2019 Sexual orientation Heterosexual (fin ding) [facility] Start: 07-11-2016 Sex Female (finding) [facility] Medical Equipment Procedure Code Equipment Code Equipment Origin al Text Equipment Identifier Dates [employer] Fiberwire 5.5mm 2 Full Thread Peek 14.7mm Suture 2 Sterile - [id number] Start: 02-01-2019 testing up to three times daily [id number] Start: 02-23-2014 Comment on above: testing up to three times daily See Instructions , Blood glucose test strips for home blood glucose testing twice daily. #6 boxes for 90 day supply. Please make sure test strips match glucometer., # 1 EA, 3 Refill(s), Pharmacy: [place] [phone], DMII (diabetes mellitus, type 2), 17... Start: 10-08-2022 See Instructions , Lancets for blood glucose testing twice daily. 90 day supply., # 1 EA, 3 Refill(s), Pharmacy: [place] [phone], DMII (diabetes mellitus, type 2), 172.7, cm, 10/08/22 10:00:00 EST, Height, 85 Start: 10-08-2022 See Instructions , Blood glucose test strips for home blood glucose testing twice daily. #6 boxes for 90 day supply. Please make sure test strips match glucometer., # 1 EA, 3 Refill(s), Pharmacy: [place] [phone], DMII (diabetes mellitus, type 2), 17... Start: 10-08-2022 See Instructions , Lancets for blood glucose testing twice daily. 90 day supply., # 1 EA, 3 Refill(s), Pharmacy: [place] [phone], DMII (diabetes mellitus, type 2), 172.7, cm, 10/08/22 10:00:00 EST, Height, 85 Start: 10-08-2022 See Instructions , Blood glucose test strips for home blood glucose testing twice daily. #6 boxes for 90 day supply. Please make sure test strips match glucometer., # 1 EA, 3 Refill(s), Pharmacy: [place] [phone], DMII (diabetes mellitus, type 2), 17... Start: 10-08-2022 See Instructions , Lancets for blood glucose testing twice daily. 90 day supply., # 1 EA, 3 Refill(s), Pharmacy: [place] [phone], DMII (diabetes mellitus, type 2), 172.7, cm, 10/08/22 10:00:00 EST, Height, 85 Start: 10-08-2022 See Instructions , Blood glucose test strips for home blood glucose testing twice daily. #6 boxes for 90 day supply. Please make sure test strips match glucometer., # 1 EA, 3 Refill(s), Pharmacy: [place] [phone], DMII (diabetes mellitus, type 2), 172.7, cm, 10/08/22 10:00:00 EST, Height, 85 Start: 10-08-2022 See Instructions , Lancets for blood glucose testing twice daily. 90 day supply., # 1 EA, 3 Refill(s), Pharmacy: [place] [phone], DMII (diabetes mellitus, type 2), 172.7, cm, 10/08/22 10:00:00 EST, Height, 85 Start: 10-08-2022 See Instructions , Blood glucose test strips for home blood glucose testing twice daily. #6 boxes for 90 day supply. Please make sure test strips match glucometer., # 1 EA, 3 Refill(s), Pharmacy: [place] [phone], DMII (diabetes mellitus, type 2), 172.7, cm, 10/08/22 10:00:00 EST, Height, 85 Start: 10-08-2022 See Instructions , Lancets for blood glucose testing twice daily. 90 day supply., # 1 EA, 3 Refill(s), Pharmacy: [place] [phone], DMII (diabetes mellitus, type 2), 172.7, cm, 10/08/22 10:00:00 EST, Height, 85 Start: 10-08-2022 See Instructions , Blood glucose test strips for home blood glucose testing twice daily. #6 boxes for 90 day supply. Please make sure test strips match glucometer., # 1 EA, 3 Refill(s), Pharmacy: [place] [phone], DMII (diabetes mellitus, type 2), 172.7, cm, 10/08/22 10:00:00 EST, Height, 85 Start: 10-08-2022 See Instructions , Lancets for blood glucose testing twice daily. 90 day supply., # 1 EA, 3 Refill(s), Pharmacy: [place] [phone], DMII (diabetes mellitus, type 2), 172.7, cm, 10/08/22 10:00:00 EST, Height, 85 Start: 10-08-2022 See Instructions , Blood glucose test strips for home blood glucose testing twice daily. #6 boxes for 90 day supply. Please make sure test strips match glucometer., # 1 EA, 3 Refill(s), Pharmacy: [place] [phone], DMII (diabetes mellitus, type 2), 172.7, cm, 10/08/22 10:00:00 EST, Height, 85 Start: 10-08-2022 See Instructions , Lancets for blood glucose testing twice daily. 90 day supply., # 1 EA, 3 Refill(s), Pharmacy: [place] [phone], DMII (diabetes mellitus, type 2), 172.7, cm, 10/08/22 10:00:00 EST, Height, 85 Start: 10-08-2022 See Instructions , Blood glucose test strips for home blood glucose testing twice daily. #6 boxes for 90 day supply. Please make sure test strips match glucometer., # 1 EA, 3 Refill(s), Pharmacy: [facility] [address], DMII (diabetes mellitus, type 2), 172.7, cm, 10/08/22 10:00:00 EST, Height, 85 Start: 10-08-2022 See Instructions , Lancets for blood glucose testing twice daily. 90 day supply., # 1 EA, 3 Refill(s), Pharmacy: [facility] [address], DMII (diabetes mellitus, type 2), 172.7, cm, 10/08/22 10:00:00 EST, Height, 85 Start: 10-08-2022 See Instructions , Blood glucose test strips for home blood glucose testing twice daily. #6 boxes for 90 day supply. Please make sure test strips match glucometer., # 1 EA, 3 Refill(s), Pharmacy: [facility] [address], DMII (diabetes mellitus, type 2), 172.7, cm, 10/08/22 10:00:00 EST, Height, 85 Start: 10-08-2022 See Instructions , Lancets for blood glucose testing twice daily. 90 day supply., # 1 EA, 3 Refill(s), Pharmacy: [facility] [address], DMII (diabetes mellitus, type 2), 172.7, cm, 10/08/22 10:00:00 EST, Height, 85 Start: 10-08-2022 See Instructions , Blood glucose test strips for home blood glucose testing twice daily. #6 boxes for 90 day supply. Please make sure test strips match glucometer., # 1 EA, 3 Refill(s), Pharmacy: [facility] [address], DMII (diabetes mellitus, type 2), 172.7, cm, 10/08/22 10:00:00 EST, Height, 85 Start: 10-08-2022 See Instructions , Lancets for blood glucose testing twice daily. 90 day supply., # 1 EA, 3 Refill(s), Pharmacy: [facility] [address], DMII (diabetes mellitus, type 2), 172.7, cm, 10/08/22 10:00:00 EST, Height, 85 Start: 10-08-2022 See Instructions , Blood glucose test strips for home blood glucose testing twice daily. #6 boxes for 90 day supply. Please make sure test strips match glucometer., # 1 EA, 3 Refill(s), Pharmacy: [facility] [address], DMII (diabetes mellitus, type 2), 172.7, cm, 10/08/22 10:00:00 EST, Height, 85 Start: 10-08-2022 See Instructions , Lancets for blood glucose testing twice daily. 90 day supply., # 1 EA, 3 Refill(s), Pharmacy: [facility] [address], DMII (diabetes mellitus, type 2), 172.7, cm, 10/08/22 10:00:00 EST, Height, 85 Start: 10-08-2022 See Instructions , Blood glucose test strips for home blood glucose testing twice daily. #6 boxes for 90 day supply. Please make sure test strips match glucometer., # 1 EA, 3 Refill(s), Pharmacy: [facility], DMII (diabetes mellitus, type 2), 172.7, cm, 10/08/22 10:00:00 EST, Height, 85 Start: 10-08-2022 See Instructions , Lancets for blood glucose testing twice daily. 90 day supply., # 1 EA, 3 Refill(s), Pharmacy: [facility] [address], DMII (diabetes mellitus, type 2), 172.7, cm, 10/08/22 10:00:00 EST, Height, 85 Start: 10-08-2022 See Instructions , PEN NEEDLES 32GX5/32, USE UD QID, [facility]: [address]-40, # 100 EA, 3 Refill(s), Pharmacy: [facility], 175, cm, 09/01/24 13:07:00 EST, Height, 101.5, kg, 09/01/24 13:07:00 EST, Dosing Weight Start: 10-15-2024 See Instructions , Blood glucose test strips for home blood glucose testing twice daily. #6 boxes for 90 day supply. Please make sure test strips match glucometer., # 1 EA, 3 Refill(s), Pharmacy: [facility], DMII (diabetes mellitus, type 2), 172.7, cm, 10/08/22 10:00:00 EST, Height, 85 Start: 10-08-2022 See Instructions , Lancets for blood glucose testing twice daily. 90 day supply., # 1 EA, 3 Refill(s), Pharmacy: [facility] [address], DMII (diabetes mellitus, type 2), 172.7, cm, 10/08/22 10:00:00 EST, Height, 85 Start: 10-08-2022 See Instructions , PEN NEEDLES 32GX5/32, USE UD QID, [facility]: [address]-01, # 100 EA, 3 Refill(s), Pharmacy: [facility], 174, cm, 12/08/24 10:52:00 EDT, Height, 96.9, kg, 12/08/24 10:52:00 EDT, Dosing Weight Start: 01-26-2025 See Instructions , Blood glucose test strips for home blood glucose testing twice daily. #6 boxes for 90 day supply. Please make sure test strips match glucometer., # 1 EA, 3 Refill(s), Pharmacy: [facility], DMII (diabetes mellitus, type 2), 172.7, cm, 10/08/22 10:00:00 EST, Height, 85 Start: 10-08-2022 See Instructions , Lancets for blood glucose testing twice daily. 90 day supply., # 1 EA, 3 Refill(s), Pharmacy: [facility] [address], DMII (diabetes mellitus, type 2), 172.7, cm, 10/08/22 10:00:00 EST, Height, 85 Start: 10-08-2022 See Instructions , PEN NEEDLES 32GX5/32, USE UD QID, [facility]: [address]-29, # 100 EA, 3 Refill(s), Pharmacy: [facility], 174, cm, 12/08/24 10:52:00 EDT, Height, 96.9, kg, 12/08/24 10:52:00 EDT, Dosing Weight Start: 01-26-2025 See Instructions , Blood glucose test strips for home blood glucose testing twice daily. #6 boxes for 90 day supply. Please make sure test strips match glucometer., # 1 EA, 3 Refill(s), Pharmacy: [facility], DMII (diabetes mellitus, type 2), 172.7, cm, 10/08/22 10:00:00 EST, Height, 85 Start: 10-08-2022 See Instructions , Lancets for blood glucose testing twice daily. 90 day supply., # 1 EA, 3 Refill(s), Pharmacy: [facility], DMII (diabetes mellitus, type 2), 172.7, cm, 10/08/22 10:00:00 EST, Height, 85 Start: 10-08-2022 See Instructions , PEN NEEDLES 32GX5/32, USE UD QID, [facility]: [address]-35, # 100 EA, 3 Refill(s), Pharmacy: [facility], 174, cm, 12/08/24 10:52:00 EDT, Height, 96.9, kg, 12/08/24 10:52:00 EDT, Dosing Weight Start: 01-26-2025 Functional Status Date Assessment Result Facility 08-14-2024 Functional Status Other: 7am-2pm [facility] 08-14-2024 Functional Status [facility] 08-14-2024 Functional Status [facility] 08-14-2024 Functional Status Room located n [facility], Non-Slip footwear, Room check performed [facility] 08-14-2024 Functional Status [facility] 08-14-2024 Functional [facility] Functional Status Marybeth Vergara [facility] 08-13-2024 Functional Status Marybeth Vergara [facility] 08-13-2024 Functional Status Mobile home Marybeth Vergara [facility] 08-13-2024 Functional Status Refused Marybeth Vergara [facility] 08-13-2024 Functional Status Marybeth Vergara [facility] 08-12-2024 Functional Status Marybeth Vergara [facility] 08-12-2024 Functional Status Environmental Safety Implemented Adequate room lighting, Bed in low position, Call device within reach [facility] Mental Status Date Assessment Result Facility 08-14-2024 Mental Status Oriented x 4 [facility] 08-13-2024 Mental Status [facility] 08-13-2024 Mental Status [facility] 04-04-2022 Cognitive function Awake;Alert;A ppropriate;Follow s Commands [facility] Work Phone: 03-11-2022 Cognitive function Level Of Cons ciousness Awake;Alert;Appropriate;Follow s Commands [facility] Work Phone: Clinical Notes 04-15-2013 to 04-10-2025 Note Date & Type Note Facility 04-10-2025 Note . MICRO - Microbiology PROCEDURE: Urine Culture [*1] SOURCE: Urine, Clean Catch BODY SITE: COLLECTED DATE/TIME: 04/08/2025 16:13 EDT RECEIVED DATE/TIME: 04/08/2025 18:50 EDT START DATE/TIME: 04/08/2025 18:50 EDT FREE TEXT SOURCE: FINAL REPORTS Final Report [] Verified Date/Time/Personnel: 04/10/2025 08:04 EDT >100,000 cfu/ml Escherichia coli PRELIMINARY REPORTS Preliminary Report [] Verified Date/Time/Personnel: 04/09/2025 10:15 EDT >100,000 cfu/ml Escherichia coli TR to follow Preliminary Report [] Verified Date/Time/Personnel: 04/08/2025 19:59 EDT Specimen received in lab. SUSCEPTIBILITY RESULTS Escherichia coli Antibiotic TR Dilut TR Inter Ampicillin >16 Resistant Ampicillin/ 16/8 Intermediate Sulbactam Aztreonam <=4 Susceptible Cefazolin 4 Susceptible Cefepime <=2 Susceptible Ceftolozane/ <=2 Susceptible Tazobactam Ciprofloxacin <=0.25 Susceptible Ertapenem <=0.5 Susceptible Gentamicin <=2 Susceptible ID Panel Not Not Applicable Applicable Imipenem <=1 Susceptible Levofloxacin <=0.5 Susceptible Meropenem <=1 Susceptible Minocycline <=4 Susceptible Nitrofurantoin <=32 Susceptible Piperacillin/ <=8 Susceptible Tazobactam Trimethoprim/ <=0.5/9.5 Susceptible Sulfa Performing Locations *1: This test was performed at: [address], [address] [place] [address] 08-18-2024 Note . MICRO - Microbiology PROCEDURE: [...] Locations *1: This test was performed at: [address], [address] [place] [address] 08-18-2024 Note . MICRO - Microbiology PROCEDURE: [...] Locations *1: This test was performed at: [facility], [address] [place] [address], [id number] [place] [address] 08-14-2024 Hospital Discharge instructions Patient Education 08/14/2024 [...] Medicines to relieve symptoms. These can include fjsr-ytq-kmatjlb medicine for pain and fever, medicines for [...] Follow these instructions at home: Medicines Take gkwq-mhz-dxpaiyz and prescription medicines only as told by [...] and water are not available, use hand architecture internship. Avoid close contact with friends and family [...] 11/29/2016 Document Revised: 07/03/2018 Document Reviewed: 11/29/2016 [employer] Patient Education 2020 Vpon. 08/14/2024 10:44:01 Nausea and Vomiting, Adult, Ztmm-xq-Nvub Nausea and Vomiting, Adult Nausea is feeling [...] fruit juice). ?Low-calorie sports drinks. Eat bland, upfl-vg-ikwjmr foods in small amounts as you are able, such as: ?Bananas. ?Applesauce. ?Rice. ?Low-fat (lean) meats. ?[place]. ?Crackers. Avoid drinking fluids that have a lot of sugar or caffeine in them. This includes energy drinks, sports drinks, and soda. Avoid alcohol. Avoid spicy or fatty foods. General instructions Take cyma-syl-jvckwbe and prescription medicines only as told by your doctor. Drink enough fluid to keep your pee (urine) pale yellow. Wash your hands often with soap and water. If you cannot use soap and water, use hand architecture internship. Make sure that all people in your [...] too much water in your body. Take xvsl-tew-nchkeui and prescription medicines only as told by [...] 01/06/2009 Document Revised: 11/12/2019 Document Reviewed: 12/29/2018 [employer] Patient Education 2020 Vpon. 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 [facility] 08-14-2024 Note Discharge Instructions Thank you for allowing [facility] to assist you with your healthcare needs. The following is important discharge information regarding your hospital visit. Your Care Team [facility] Your Diagnosis Constipation Dehydration HTN (hypertension) Intractable [...] Contact Information StatusPC OV 12/08/2024 11:00 AM CHANTALE GLASS [address] [phone] Confirmed Follow Up Appointments Follow Up with CHANTALE RAMSEY When:Within 3-5 days Where:[facility] [place] [address] [phone] Additional Information: Please call to schedule your [...] 12 hours Duration: 2 Days Pickup at [facility] START TOMORROW 08/15/2024 08/14/24 IV [...] glucose testing twice daily. #6 boxes for day supply. Please make sure test strips match glucometer. Unchanged DME (Pen needles) See instructions PEN NEEDLES 32GX5/ 32, USE UD QID, [facility]: [address]-83 Unchanged DULoxetine (DULoxetine 60 mg oral delayed [...] Constipation Duration: 30 Days 08/13/24 Pharmacy Information [facility]: [address] [place] [id number] [phone] Please take this list to your next doctor s visit. Bring all medications you take, including over the counter medications, herbals and other supplements with you to your doctor s visit. Patients and families are reminded to discard old lists and to update any records with all medication providers or retail pharmacies. Medication Leaflets cefdinir (GEGE luana lucero) What is the most important [...] may report side effects to FDA at 8-067-RCS-6621. What other drugs will affect cefdinir? Tell your doctor about all your other medicines, especially: probenecid; or vitamin or mineral supplements that contain iron. This list is not complete. Other drugs may affect cefdinir, including prescription and nmdd-yur-tyxqezx medicines, vitamins, and herbal products. Not all [...] to ensure that the information provided by [employer]. ('[employer]') is accurate, up-to-date, and complete, but no guarantee is made to that effect. Drug information contained herein may be time sensitive. [employer] information has been compiled for use by healthcare practitioners and consumers in the [place] and therefore [employer] does not warrant that uses outside of the [place] are appropriate, unless specifically indicated otherwise. [employer] drug information does not endorse drugs, diagnose patients or recommend therapy. [employer] drug information is an informational resource designed [...] effective or appropriate for any given patient. [employer] does not assume any responsibility for any aspect of healthcare administered with the aid of information [employer] provides. The information contained herein is not intended to cover all possible uses, directions, precautions, warnings, drug interactions, allergic reactions, or adverse effects. If you have questions about the drugs you are taking, check with your doctor, nurse or pharmacist. Copyright 8620-4632 [employer]. Version: 9.01. Revision Date: 03/07/2023. Education Materials [...] Medicines to relieve symptoms. These can include avbv-lbk-hjxguzz medicine for pain and fever, medicines for [...] Follow these instructions at home: Medicines Take gbts-txf-kzopheh and prescription medicines only as told by [...] and water are not available, use hand architecture internship. Avoid close contact with friends and family [...] 11/29/2016 Document Revised: 07/03/2018 Document Reviewed: 11/29/2016 [employer] Patient Education 2020 Vpon. Nausea and Vomiting, Adult Nausea is feeling [...] juice). ? Low-calorie sports drinks. Eat bland, jvfi-hd-fhydnf foods in small amounts as you are able, such as: ? Bananas. ? Applesauce. ? Rice. ? Low-fat (lean) meats. ? [place]. ? Crackers. Avoid drinking fluids that have a lot of sugar or caffeine in them. This includes energy drinks, sports drinks, and soda. Avoid alcohol. Avoid spicy or fatty foods. General instructions Take hgke-pwj-eqljcdh and prescription medicines only as told by your doctor. Drink enough fluid to keep your pee (urine) pale yellow. Wash your hands often with soap and water. If you cannot use soap and water, use hand architecture internship. Make sure that all people in your [...] too much water in your body. Take mxnj-cdr-qlaqvar and prescription medicines only as told by [...] 01/06/2009 Document Revised: 11/12/2019 Document Reviewed: 12/29/2018 [employer] Patient Education 2020 [employer] Additional Information VACCINATE! IT SAVES LIVES! Members of the community who have not yet received the COVID-19 vaccine and would like to receive it can visit one of [facility] vaccine clinics. There are many vaccine clinic locations within the [facility]. For locations and available times, please visit https://gettheshot.coronavirus.[place].gov/. It is important to note that some COVID mobile vaccine clinics are held outdoors and may be canceled in rainy or stormy conditions. To learn more about pediatric vaccinations (ages 5-11), we invite you to visit the [employer] webpage. https://www.F[employer]ees.[email or web address]/pa ges/7888-Xquhk-Ckgmfoiiosd-Freque jicb-Eqdxp-Kziwroeef.html To learn more about the COVID-19 vaccine, we invite you to visit the CDC website for a list of frequently asked questions.https://www.cdc.gov/cor onavirus/2019-ncov/vaccines/faq.h tml [facility] Patient Portal Access Instructions: Stay connected with your healthcare team and access your personal medical information anytime with the [employer] Patient Portal. Please follow the directions below to create your [facility] account: 1.Access the email account you provided upon registration to the hospital/physician office.2.Look for an invitation email from [facility].3.Open the email and access the invitation link: Accept Invitation to [facility].4.Fill in the required hart to create your account. To access your account, visit [email or web address]. Click the blue button labeled Access Patient [...] you will allow to register on the [employer] Patient Portal for access to your information. You can also access the [employer] Patient Portal on the [employer]where bautista. Simply click on Patient Portal and then log into your account. If you would like to receive a full copy of your medical records, please contact the [facility] Medical Records Department by calling [phone], Friday through Friday between 8 a.m. and [...] Call your local pharmacy or go to [email or web address] to find one close to you.3.Make use of household items: Use cat litter or old coffee grounds to dispose medications if other options are not available. Mix your drugs with these household products, seal them in an airtight container and throw it into the garbage. Call [facility]: [phone] to be sure your drugs can be [...] Viral Illness, Adult Nausea and Vomiting, Adult, Elqk-ps-Ctnt Medication Leaflets cefdinir My discharge plan and instructions have been reviewed and explained to me and I,CHRISSY LAY understand my current condition and have read and understand these discharge instructions. I have received a written copy of the plan/instructions. If I have questions, I am aware that I should contact my doctor. Patient/Duty Engineer Signature: Date/Time: Relationship to Patient: ____ Witness Name/Signature: Date/Time: [facility] 08-13-2024 Note . MICRO - Microbiology [...] Locations *1: This test was performed at: [facility], [address] [place] [address], [id number] , [facility] 08-13-2024 Note . MICRO - Microbiology PROCEDURE: [...] Locations *1: This test was performed at: [facility], [address] [place] [address], [id number] , [facility] 08-13-2024 Note Date of Service 08/13/2024 Chief [...] and get about in the room. Our social media intern saw patient and stated that patient continues to work part-time but told the social media intern she needs help with meals and housekeeping. Patient follows with a counselor for anxiety and depression and was supposed to start Spravato yesterday in her PCP's office for her severe anxiety. Suspect there is a psych component contributing to her illness. Patient advised that we will monitor her for another day but she will likely be discharged home tomorrow. picking table worker asked if patient should be seen [...] No acute cardiopulmonary process. EKG EKG [ED [facility]] - Completed -- 08/12/24 14:40:00 EST, 08/12/24 [...] by ROSA BADILLO on 08/13/2024 01:06 PM [facility] 08-12-2024 Note Date of Service 08/12/2024 Chief Complaint Presents with a headache and vomiting. Was at [facility] and was sent here for eval History of Present Illness Patient is a 59-year-old female, who follows with Chantale Ramsey CNP with a past medical history significant for type 2 diabetes, hypertension, hyperlipidemia, TIA, asthma and anxiety, presented to [facility] emergency department with a constellation of [...] but no blood. She was seen at [facility] today for her symptoms but states that [...] Domestic Concerns: None. Living situation: Home/Independent. Primary Assistant Family Teacher: Self. Lives In: Single level home. Current [...] by ROSA BADILLO on 08/12/2024 09:04 PM [facility] 08-12-2024 Note Exam Date Time Procedure Performing Provider Status 08/12/24 4:[address] Abd/Pelvis w/ IV Contrast Only MARINO MYERS MD; Auth (Verified) [id number] ORIGINAL EXAMINATION: CT OF THE ABDOMEN AND [...] Sign Date: 08/12/2024 4:38:38 PM Ordering Provider: [facility]01-09-2025 Note* Exam Date Time Procedure Performing Provider Status 08/12/24 3:38 PM XR Chest 1 View NADER CONNELL MD; Auth (Verified) [id number] ORIGINAL EXAMINATION: ONE XRAY VIEW OF THE [...] Sign Date: 08/12/2024 3:43:51 PM Ordering Provider: INKOM GARCIA [facility]01-09-2025 HCoV 229E RNA JALIL+non-probe Ql (Nph) Not Detected *NA* (08/12/24 2:56 PM)AH Auto Viro/Sero [id number] Note* Exam Date Time Procedure Performing Provider Status 08/12/24 2:52 PM EKG [ED AO] - CV JERAD GARCIA DO; Auth (Verified) ECG Final Report Sinus rhythm Left atrial enlargement Baseline wander in lead(s) V1 Electronic Signature: JERAD GARCIA DO 08/12/2024 14:56:50 [facility]01-09-2025 Evaluation + Plan noteExtracted from: Title:History and Physical Author:ROSA BADILLO Date:08/12/24 1. Intractable vomiting with nausea Acute, [...] Date:12/08/2024 11:00:00 AM Scheduled Provider:CHANTALE RAMSEY Location:[facility] ([place], [place]) Appointment Type:PC OV Future Scheduled Tests Laboratory* Basic Metabolic Panel 06/09/24 * Thyroid Stimulating Hormone 06/09/24 * Free T4 06/09/24 * Complete Blood Count 06/09/24 [facility] 07-09-2024 Note. MICRO - Microbiology PROCEDURE: [...] Locations *1: This test was performed at: [facility], [address] [place] [address], [facility] , [facility]09-09-2023 Note ORIGINAL EXAMINATION: MRI OF THE BRAIN [...] Sign Date: 09/09/2023 4:41:57 PM Ordering Provider: [facility]01-17-2024 Note. MICRO - Microbiology PROCEDURE: Urine [...] Locations *1: This test was performed at: [address], [facility] , [facility] ([place])07-27-2023 Note. MICRO - Microbiology PROCEDURE: Urine Culture [...] Locations *1: This test was performed at: [address], [facility] , [facility] ([place]05-14-2023 Evaluation + Plan note Diagnostic Tests Pending * Ova & Parasite exam 05/14/23 Future Scheduled Tests Laboratory* Rapid HIV (AO) 02/18/23 * Basic Metabolic Panel 12/20/22 * Basic Metabolic Panel 01/17/23 * Complete Blood Count 01/17/23 [facility] 07-18-2023 Evaluation + Plan note Future Scheduled Tests Laboratory* Rapid HIV (AO) 02/18/23 * Basic Metabolic Panel 12/20/22 * Basic Metabolic Panel 01/17/23 * Complete Blood Count 01/17/23 [facility] 03-31-2023 NoteHNO ID: [id number] Author: Courtney Sosa, county court judge Service: ? Author Type: Fire Prevention Research Engineer Type: Procedures Filed: 11/01/2022 2:17 PM Note Text: ZIO XT patch placed 11/01/2022, 2:30 p.m. [facility] NoteHNO ID: [id number] Author: Dana Marvin APRN.TRUST MANAGER Service: Electrophysiology Author Type: Nurse Practitioner Type: [...] and serum BGL 309 on presentation to [facility] ED, ?sepsis with elevated lactate and leukocytosis, [...] polysubstance use abstinence Zio patch ordered Call [phone] to have applied on d/c Further outpatient EP follow up needs pending Zio patch results No further recommendations from EP standpoint. Will remain available as needed. Assessment and Recommendations discussed and collaborated with Dr. Holliday SIGNATURE: Dana Marvin APRN.TRUST MANAGER DATE: November 01, 2022 TIME: 8:56 AM CONTACTING [facility] CARDIOVASCULAR MEDICINE: Team A: (M-F 8:00 am - 5:00 pm) Dee Anton Scharfstein, Sparano, Vekstein, Wiseman, Gupta, Rogers - PAGE [phone] Team B: (M-F 8:00 am - 5:00 pm) Nahomi Rivero Kruithoff, Mattina, Taraben, William, Abdelghany- PAGE [phone] Night and Weekend Cardiovascular Medicine (consults, inpatient management questions, transfers, etc.): CALL [phone] (not the physician listed) - All calls triaged via answering service. Please include the patient's name, location, MRN, and 10-digit call-back number.[facility]03-30-2023 NoteHNO ID: [id number] Author: Yasmine Clifford, RN Service: Nursing Author Type: Registered Nurse Type: Progress Notes Filed: 10/31/2022 7:34 AM Note Text: 0230- pt arrived from [facility]. Pt Aox3, oriented to room and educated swimming pool salesperson light use. States she has a headache [...] call light within reach, bed locked and low.[facility]03-30-2023 NoteHNO ID: [id number] Author: Sloan Will MD Service: Electrophysiology Author [...] Bigeminy and Trigeminy were present. Sloan Will [facility]DB[facility]08-01-2022 NoteHNO ID: [id number] Author: Andry Dunne MD Service: ? Author Type: Physician Type: Progress Notes Filed: 03/19/2022 1:26 PM Note Text: Andry Dunne MD Department of Orthopaedics Orthopaedics [address] [facility] [address] Dept: [phone] Dept March 04, 2022 CHIEF COMPLAINT: New [...] surgeries of right shoulder, but this is HEALTH SYSTEM, and explained that we cannot treat her for this unless Dr. Dunne agrees to take on care and become provider of record. Currently she sees Dr. Jones and Dr. Bishop. She does not want to go back to [place] for care. AMB ROOMING INTAKE FLOWSHEET DATA [...] subacromial bursa Informed Consent Consent Obtained: Verbal [place] Protocol A moment to CARE was completed. [...] THE CORACOCLAVICULAR LIGAMENTS MAY REPRESENT LOW-GRADE SPRAIN. Pharmacy Helper: FERCHO Transcribe Date/Time: Jun 22 2021 4:06P Dictated by : NAYELY ZURITA MD This examination was interpreted and the report reviewed and electronically signed by: HENRY GILMORE MD on Jun 22 2021 5:18PM EST Results-Findings * * *Final Report* * * DATE OF EXAM: Jun 22 2021 3:21PM [facility] 0239 - MRI SHOULDER WO IVCON [...] mild tendinosis -Infraspinatus: I (more content not included)...[facility] 03-04-2022 History of Present illness Narrative* Andry Dunne MD - 03/04/2022 3:57 PM EDTAssociated Order(s): Large Joint Arthro/Inj: L subacromial bursa Post-Procedure Diagnose(s): Impingement syndrome of left shoulder; Chronic left shoulder pain Andry Dunne MD Department of Orthopaedics Orthopaedics [address] [place] [address] Dept: [phone] Dept March 04, 2022 CHIEF COMPLAINT: New [...] surgeries of right shoulder, but this is HEALTH SYSTEM, and explained that we cannot treat her for this unless Dr. Dunne agrees to take on care and become provider of record. Currently she sees Dr. Jones and Dr. Bishop. She does not want to go back to [place] for care. AMB ROOMING INTAKE FLOWSHEET DATA [...] subacromial bursa Informed Consent Consent Obtained: Verbal [place] Protocol A moment to CARE was completed. [...] THE CORACOCLAVICULAR LIGAMENTS MAY REPRESENT LOW-GRADE SPRAIN. Pharmacy Helper: FERCHO Transcribe Date/Time: Jun 22 2021 4:06P Dictated by : NAYELY ZURITA MD This examination was interpreted and the report reviewed and electronically signed by: HENRY GILMORE MD on Jun 22 2021 5:18PM EST Results-Findings * * *Final Report* * * DATE OF EXAM: Jun 22 2021 3:21PM [facility] 0239 - MRI SHOULDER WO IVCON [...] Lopressor [Metoprolol Tartrate], Morphine, Oxymorphone, Percocet [Oxycodone-Acetaminophen], Ruwcbvu-Bwp-Dwp Reductase Inhibitors, Tylenol [Acetaminophen], and Ultram [Tramadol Hcl] ROS: General (negative for fatigue, malaise, weight loss/gain) HEENT (negative for headache, earache, recent vision changes, sinus pain, sore throat) Respiratory (no recent shortness of breath, hemoptysis) CV (negative for chest tightness, palpitations) Musculoskeletal (see HPI) Psych (no depression, anxiety) REFERRING PHYSICIAN: Ms. Chrissy Lay was referred to al for consultation by the following physician. This consultation note will be sent to the following physician by either mail or electronic medical record. Andry Dunne [address] [facility] [address] Karl Pichardo MD [address] [place] [facility] [address] Andry Dunne MD documented in this encounter[facility]rec[facility] NoteHNO ID: [id number] Author: Rodolfo Bishop MD Service: ? Author Type: Physician Type: Progress Notes Filed: 12/03/2021 3:58 PM Note Text: SERVICE DATE: Patient would like to see someone today. PCP: Chrissy Lay REFERRING PROVIDER: Sam Jones [address] [address] Consult requested for an opinion regarding the [...] ankle (left) -- 2007 Following with [facility] [place] Previous Version Essential hypertension, benign Phoebe Randle [...] fusion of cervical spine 04/25/2021 Mariely Kelley, CONVEYOR BELT OPERATOR.TRUST MANAGER No GERD (gastroesophageal reflux disease) 10/25/2019 Mariely Kelley CONVEYOR BELT OPERATOR.TRUST MANAGER No Nausea and vomiting 10/25/2019 Mariely Kelley CONVEYOR BELT OPERATOR.TRUST MANAGER No Mixed hyperlipidemia 10/25/2019 Mariely Kelley, CONVEYOR BELT OPERATOR.TRUST MANAGER No History of failed repair of rotator cuff 10/25/2019 Mariely Kelley, CONVEYOR BELT OPERATOR.TRUST MANAGER No Impingement syndrome of left shoulder 10/12/2019 [...] Ulloa RN No Hemorrh (more content not included)...[facility]05-02-2022 History of Present illness Narrative* Rodolfo Bishop MD - 12/03/2021 2:24 PM EDT Post-Procedure Diagnose(s): History of failed repair of rotator cuff; Rotator cuff tear arthropathyof right shoulder SERVICE DATE: Patient would like to see someone today. PCP: Chrissy Lay REFERRING PROVIDER: Sam Jones [address] [address] Consult requested for an opinion regarding the [...] broken ankle (left) -- 2006 Following with [facility] Previous Version Essential hypertension, benign Phoebe Randle [...] fusion of cervical spine 04/25/2021 Mariely Kelley, CONVEYOR BELT OPERATOR.TRUST MANAGER No GERD (gastroesophageal reflux disease) 10/25/2019 Mariely Kelley, CONVEYOR BELT OPERATOR.TRUST MANAGER No Nausea and vomiting 10/25/2019 Mariely Kelley CONVEYOR BELT OPERATOR.TRUST MANAGER No Mixed hyperlipidemia 10/25/2019 Mariely Kelley APRN.TRUST MANAGER No History of failed repair of rotator cuff 10/25/2019 Mariely Kelley APRN.TRUST MANAGER No Impingement syndrome of left shoulder 10/12/2019 [...] Guadalupe (Retired) Kylee A1c 6.4 as of [id number] --> Diagnostic for DM at 6.5% or [...] 08/30/2009 Karl Pichardo MD Tibialis tendinitis 12/29/2008 Jordanlibby Vyas 08/30/2009 Karl Pichardo MD RECTAL BLEEDING [...] Status Change Percocet [Oxycodone* Itching Severe itching Kovrurz-Kjg-Upn Red* Other: See Comments Muscle aches, multiple [...] them every 6 months. This is a HEALTH SYSTEM case and we can submit for approval for her injection with a C9 form and when that is approved, I will be happy to see her back for an injection.She understands and agreeable with this plan. If any questions or concerns arise, she should not hesitate to call. Rodolfo Bishop M.D. M.M.Sc. Shoulder and Elbow Surgeon Orthopaedic Surgery Department [place], [place] [address] Tell: [phone] Appt:[phone] 12/03/2021 2:24 PM documented in this encounterBrecksville [facility]04-21-2022 NoteHNO ID: [id number] Author: Sam Jones MD Service: ? Author [...] subacromial bursa Informed Consent Consent Obtained: Verbal [place] Protocol A moment to CARE was completed. [...] November 22, 2021 TIME: 11:49 AM PAGER/CONTACT #:[facility]04-21-2022 NoteHNO ID: [id number] Author: Sam Jones MD Service: ? Author [...] patient's questions were answered by the attending physician.[facility]04-21-2022 NoteHNO ID: [id number] Author: Sam Jones MD Service: ? Author [...] noted. Motor: 5/5 IO, FPL, OP, hand oracle fusion developer, biceps, triceps, deltoid Sensory: SILT ulnar/median/radial distributions [...] outlined treatment plan Narciso Rosario MD CC:[facility] JonesR[facility]-21-2022 NoteHNO ID: [id number] Author: Sam Jones MD Service: ? Author [...] noted. Motor: 5/5 IO, FPL, OP, hand oracle fusion developer, biceps, triceps, deltoid Sensory: SILT ulnar/median/radial distributions [...] outlined treatment plan Narciso Rosario MD CC:Sam JonesR[facility]04-21-2022 History of Present illness Narrative* Sam [...] subacromial bursa Informed Consent Consent Obtained: Verbal [place] Protocol A moment to CARE was completed. [...] SIGNATURE: Sam Jones MD PATIENT NAME: Chrissy Gunnguru DATE: November 22, 2021 TIME: 11:49 AM [...] noted. Motor: 5/5 IO, FPL, OP, hand oracle fusion developer, biceps, triceps, deltoid Sensory: SILT ulnar/median/radial distributions [...] Rosario MD CC:Sam Jones documented in this encounterBrecksville [facility]04-21-2022 History of Present illness Narrative* Sam [...] noted. Motor: 5/5 IO, FPL, OP, hand oracle fusion developer, biceps, triceps, deltoid Sensory: SILT ulnar/median/radial distributions [...] Rosario MD CC:Sam Jones documented in this encounterBrecksville [facility]11-02-2021 History of Present illness Narrative* Aurora [...] 05, 2021 10:21 AM documented in this encounterBrecksville [facility]09-29-2021 NoteHNO ID: [id number] Author: Maria Luz Enriquez APRN.PSYCHIATRY TEACHER Service: ? Author Type: Nurse Master Ocean [employer] Type: Anesthesia Procedure Notes Filed: 05/02/2021 11:02 AM Note Text: ANESTHESIOLOGY PROCEDURE NOTE Airway General Information Procedure Start Time/Medication Administration: 05/02/2021 10:52 AM Patient location during procedure: OR Patient identity confirmed: arm band Staffing Performed by: PSYCHIATRY TEACHER Indications and Patient Condition Preoxygenated: yes Indications for airway management: anesthesia Method: asleep Final Airway Details Final airway type: supraglottic airway Number of attempts at approach: 1 Final Supraglottic Airway: i-gel Size 4 Seal Adequate: yes SIGNATURE: Maria Luz Enriquez APRN.CRNA PATIENT NAME: Chrissy Lay DATE: May 02, 2021 TIME: 11:01 AM CSN: [id number] NoteHNO ID: [id number] Author: Richie Tao III, MD Service: Anesthesiology [...] May 02, 2021 TIME: 11:00 AM CSN: [id number] NoteHNO ID: [id number] Author: Shana Rene RN Service: Nursing Author Type: Registered Nurse Type: Nursing Progress Note Filed: 05/02/2021 10:10 AM Note Text: CHEPE Presley obtained UA results. Okay to proceed with the surgery today.[facility]09-29-2021 NoteHNO ID: [id number] Author: Shnaa Rene RN Service: Nursing Author Type: Registered Nurse Type: Nursing Progress Note Filed: 05/02/2021 9:32 AM Note Text: Dr. Tao spoke with CHEPE Presley regarding pt's c/o.[facility] 04-15-2013 History of Past illness Narrative* [...] of this encounter (statuses as of 11/22/2021) [facility]09-12[facility] History of Past illness Narrative* Problem [...] of this encounter (statuses as of 11/22/2021) [facility] History of Past illness Narrative* Problem [...] of this encounter (statuses as of 11/29/2021) [facility]09[facility] History of Past illness Narrative* Problem Noted Date Resolved Date Premenopausal menorrhagia 04/15/20132013 Impaired fasting blood sugar 12/28/2010 Overview: A1c 6.4 as of --> Diagnostic for DM at 6.5% or higher, per current criteria Hypothyroidism 10/05/2009 10/29/2013 Routine general medical exam ination at a health care facility 08/30/2009 01/13/2013 Overview: 08/30/2009, from Dr. aDhl 03/18/2011, yearly check-up Routine gynecological examination 08/30/2009 [...] of this encounter (statuses as of 12/03/2021) [facility] History of Past illness Narrative* Problem [...] of this encounter (statuses as of 03/05/2022) [facility] History of Past illness Narrative* Problem [...] of this encounter (statuses as of 03/19/2022) [facility] note Future Appointments Appointment Date:01/06/2023 04:30:00 PM Scheduled Provider:CHANTALE RAMSEY [facility] Appointment Type:PC OV Appointment Date:02/05/2023 09:30:00 AM Scheduled Provider:CHANTALE RAMSEY Location:[facility] ([place], [place]) Appointment Type:PC OV [facility] Evaluation + Plan note Future Appointments Appointment Date:03/07/2023 10:00:00 AM Scheduled Provider:CHANTALE RAMSEY APRN-SANDY Location:[facility] ([place], [place]) Appointment Type:PC OV Future Scheduled Tests Laboratory* Basic Metabolic Panel 12/20/22 [facility] Evaluation + Plan note Future Appointments Appointment Date:03/07/2023 10:00:00 AM Scheduled Provider:CHANTALE RAMSEY APRN-SANDY Location:[facility] ([place], [place]) Appointment Type:PC OV Diagnostic Tests Pending * N. gonorrhoeae PCR 02/18/23 * Chlamydia trachomatis PCR 02/18/23 Future Scheduled Tests Laboratory* Rapid HIV (AO) 02/18/23 * Affirm Pathogens DNA Direct Probe 02/18/23 * Basic Metabolic Panel 12/20/22 * Basic Metabolic Panel 01/17/23 * Complete Blood Count 01/17/23 [facility] Evaluation + Plan note Future Appointments Appointment Date:09/26/2023 03:00:00 PM Scheduled Provider:CHANTALE RAMSEY APRN-TRUST MANAGER Location:[facility] Appointment Type:PC OV Follow Up Future Scheduled Tests Laboratory* Rapid HIV (AO) 02/18/23 [facility] Evaluation + Plan note Future Appointments Appointment Date:12/26/2023 02:00:00 PM Scheduled Provider:CHANTALE RAMSEY Location:[facility] ([place], [place]) Appointment Type:PC OV Future Scheduled Tests Laboratory* Rapid HIV (AO) 02/18/23 * A1C Hemoglobin 09/25/23 * Complete Blood Count 09/25/23 * Lipid Profile 09/25/23 * Complete Metabolic Panel 09/25/23 [facility] Evaluation + Plan note Future Appointments Appointment Date:03/26/2024 03:30:00 PM Scheduled Provider:CHANTALE RAMSEY APRN-SANDY Location:[facility] ([place], [place]) Appointment Type:PC OV Future Scheduled Tests Laboratory* Rapid HIV (AO) 02/18/23 * A1C Hemoglobin 09/25/23 * Complete Blood Count 09/25/23 * Lipid Profile 09/25/23 * Complete Metabolic Panel 09/25/23 [facility] Evaluation + Plan note Future Appointments Appointment Date:03/07/2025 11:00:00 AM Scheduled Provider:CHANTALE RAMSEY Location:[facility] ([place], [place]) Appointment Type:PC OV Future Scheduled Tests Laboratory* Basic Metabolic Panel 06/09/24 * Thyroid Stimulating Hormone 06/09/24 * Thyroid Stimulating Hormone 11/24/24 * Free T4 06/09/24 * Free T4 11/24/24 * Complete Blood Count 06/09/24 * Complete Blood Count 11/24/24 * Lipid Profile 11/24/24 * Vitamin D Level 11/24/24 * Complete Metabolic Panel 11/24/24 [facility] Evaluation + Plan note Future Appointments Appointment Date:05/11/2025 11:30:00 AM Scheduled Provider:CHANTALE RAMSEY Location:[facility] ([place], [place]) Appointment Type:PC OV Appointment Date:06/08/2025 11:00:00 AM Scheduled Provider:CHANTALE RAMSEY Location:[facility] ([place], [place]) Appointment Type:[facility] Evaluation note* Diagnosis Rotator cuff tear arthropathy, right- Primary Traumatic complete tear of right rotator cuff, subsequent encounter [facility] Diagnosis Tear of left glenoid labrum, subsequent encounter- Primary Rotator cuff syndrome of left shoulder Disorders of bursae and tendons in shoulder region, unspecified documented in this encounter [facility]al[facility] noteNo assessment information availableWClinton Memorial Hospital Work Phone: Evaluation note* Diagnosis Pain- Primary Generalized pain documented in this encounter [facility]* Diagnosis History of failed repair of rotator cuff- Primary Other postprocedural status Rotator cuff tear arthropathy of right shoulder Traumatic arthropathy, shoulder region documented [facility]* Diagnosis Rotator cuff tear arthropathy of right shoulder- Primary Traumatic arthropathy, shoulder region documented in this encounter [facility]* Diagnosis Onset Date Resolution Status Episode of syncope acute Urinary tract infection with hematuria acute [facility] Work Phone: Evaluation note* Diagnosis Onset Date Resolution Status Episode of syncope acute Urinary tract infection with hematuria acute Strain of lumbar region acny e [facility] Work Phone: Evaluation note* Diagnosis Impingement syndrome of left shoulder- Primary Other affections of shoulder region, not elsewhere classified Chronic left shoulder pain Pain in joint, shoulder region documented in this encounter [facility] note* Diagnosis Onset Date Resolution Status Episode of syncope acute Urinary tract infection with hematuria acute Strain of lumbar region acut e Depressed chronic Diabetes mellitus type II, controlled chronic Hyperlipidemia chronic RSD (reflex sympathetic dystrophy) chronic Encounter to establish care noneactive [facility] Work Phone: Evaluation note* Diagnosis Onset Date [...] Hyperlipidemia chronic RSD (reflex sympathetic dystrophy) chronic [facility] Work Phone: Evaluation note* Diagnosis Pre-operative examination- [...] Pain Generalized pain documented in this encounter [facility] course Narrative No data available for this section [facility] Hospital Discharge instructionsWClinton [facility] Hospital Work Phone: Hospital Discharge instructionsWClinton [facility] Hospital Work Phone: Hospital Discharge instructions Additional Instructions Take your diabetic medications at home. Continue oral fluids. Take medications as prescribed. Follow-up with your doctor. Return if any worsening symptoms.[facility] Work Phone: Hospital Discharge instructions No data available for this section [facility] Progress note No data available for this section [facility] Reason for referral (narrative)* Diagnostic Procedure Only (Routine) - Pending Review Specialty Diagnoses / Procedures Referred By Contac t Referred To Contact XR IMAGING Diagnoses Pain Procedures XR SHOULDER GENERAL 3V OR MORE AP/TRUE AP/OTHER RIGHT RADEX SHOULDER COMPLETE MINIMUM 2 VIEWS Rodolfo Bishop MD [address] [place] [address] Xr Imaging Referral ID Status Reason Start Date Expiration Date Visits Requested Visits Authorized [id number] Pending Review Auto-Generat ed Referral 11/29/2021 12/29/2022 1 1 [facility] for referral (narrative)* Diagnostic Procedure Only (Routine) - Pending Review Specialty Diagnoses / Procedures Referred By Contac t Referred To Contact XR IMAGING Diagnoses Rotator cuff tear arthropathy of right shoulder Procedures XR SHOULDER GENERAL 3V OR MORE AP/TRUE AP/OTHER RIGHT RADEX SHOULDER COMPLETE MINIMUM 2 VIEWS Livia Zurita PA-C [address] [place] [address] Xr Imaging Referral ID Status Reason Start Date Expiration Date Visits Requested Visits Authorized [id number] Pending Review Auto-Generat ed Referral 03/05/2022 04/04/2023 1 1 [facility] for referral (narrative)* Diagnostic Procedure Only (Routine) - Closed Specialty Diagnoses / Procedures Referred By Contac t Referred To Contact XR IMAGING Diagnoses Pain Procedures XR SHOULDER GENERAL 3V OR MORE AP/TRUE AP/OTHER LT X-RAY SHOULDER COMPLET MIN 2 VIEWS Laverne Duong PA-C [address] [place] [address] Xr Imaging [place] [id number] Referral ID Status Reason Start Date Expiration Date V isits Requested Visits Authorized [id number] Closed Auto-Generate d Referral 05/11/2021 06/10/2022 1 1 [facility] Summary Purpose Family History No Family History Records Found Relationship Condition Age at Onset Recorded Date/T daphne Not Specified Malignant neoplasm Unknown father Diabetes mellitus Unknown Hypertension Unknown mother Diabetes mellitus Unknown Advance Directives No Advanced Directives Records FoundDocuments on File Type Date Recorded 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 Advance Directive(s) Advance Directive(s) 04/12/2021 10:34 AM Advance Directive(s) 05/02/2020 3:18 PM Advance Directive(s) 10/21/2019 10:23 AM Advance Directive(s) 04/20/2019 9:49 AM Advance Directive Response Recorded Date/ Time Advance Directives No June 08, 2015 3:44pm Living Will No November 24, 2021 10:12am Power of Liquified Natural Gas Technician No November 24 10:12am Documents on File Type Date Recorded 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 Advance Directive(s) Advance Directive(s) 04/12/2021 10:34 AM Advance Directive(s) 05/02/2020 3:18 PM Advance Directive(s) 10/21/2019 10:23 AM Advance Directive(s) 04/20/2019 9:49 AM Advance Directive Response Recorded Date/ Time Advance Directives No June 08, 2015 3:44pm Living Will No March 11, 2022 4:18pm Power of Liquified Natural Gas Technician No March 11 4:18pm Advance Directive Response Recorded Date/ Time Advance Directives No March 13, 2022 10:55am Living Will No March 13 10:55am Power of Liquified Natural Gas Technician No March 13 10:55am Advance Directive Response Recorded Date/ Time Advance Directives No March 13, 2022 10:55am Living Will No April 04 2:54pm Power of Liquified Natural Gas Technician No April 04, 2022 2:54pm Advance Directive Response Recorded Date/ Time Advance Directives No March 13, 2022 9:55am Living Will No April 04 1:54pm Power of Liquified Natural Gas Technician No April 04, 2022 1:54pm Medications Administered [...] back pain, h/a, n/v Urinary tract infection 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 HAS PPW CONFUSION SORE THROAT/EAR [...] section and content) DATE CREATED AUTHOR 01/28/2018 [facility] DATE CREATED AUTHOR AUTHOR'S ORGANIZ ATION 05/03/2021 [facility] DATE CREATED AUTHOR AUTHOR'S ORGANIZ ATION 11/07/2022 [facility] DATE CREATED AUTHOR AUTHOR'S ORGANIZ ATION 12/10/2022 [facility] DATE CREATED AUTHOR AUTHOR'S ORGANIZ ATION 03/15/2024 [facility] ([place]) DATE CREATED AUTHOR AUTHOR'S ORGANIZ ATION 01/09/2025 [facility] DATE CREATED AUTHOR AUTHOR'S ORGANIZ ATION 04/13/2025 [facility] DATE CREATED AUTHOR AUTHOR'S ORGANIZ ATION 04/15/2025 [facility] Source Comments (unrecognize d section and content) In the event this informatio n is protected by the Federal Confidentiality of Alcohol and Drug Abuse Patient Records regulations: The Federal rules restrict any use of the information to criminally investigate or prosecute any alcohol or drug abuse patient.[facility] the event this information is protected by the Federal Confidentiality of Alcohol and Drug Abuse Patient Records regulations: The Federal rules restrict any use of the information to criminally investigate or prosecute any alcohol or drug abuse patient.[facility] Hospital[facility] the event this information is protected by the Federal Confidentiality of Alcohol and Drug Abuse Patient Records regulations: The Federal rules restrict any use of the information to criminally investigate or prosecute any alcohol or drug abuse patient.[facility] the event this information is protected by the Federal Confidentiality of Alcohol and Drug Abuse Patient Records regulations: The Federal rules restrict any use of the information to criminally investigate or prosecute any alcohol or drug abuse patient.[facility] the event this information is protected by the Federal Confidentiality of Alcohol and Drug Abuse Patient Records regulations: The Federal rules restrict any use of the information to criminally investigate or prosecute any alcohol or drug abuse patient.[facility] the event this information is protected by the Federal Confidentiality of Alcohol and Drug Abuse Patient Records regulations: The Federal rules restrict any use of the information to criminally investigate or prosecute any alcohol or drug abuse patient.[facility] the event this information is protected by the Federal Confidentiality of Alcohol and Drug Abuse Patient Records regulations: The Federal rules restrict any use of the information to criminally investigate or prosecute any alcohol or drug abuse patient.[facility] Reason for Visit (unrecogniz ed section and content) Reason Comments Follow Up Bwc (Worker's Comp) Specialty Diagnoses / Procedures Referred By Saadia smith Referred To Contact [facility] Diagnoses Follow up for: ARTHROSCOPY SHOULDER W/ DEBRIDEMENT LIMITED 1 OR 2 DISCRETE STRUCTURES [26139] - Shoulder - Right Procedures follow up for RIGHT shoulder - surgery date was 05/02/21 [place] [address] [place] [address] [facility] [address] [place] [id number] Referral ID Status Reason Start Date Expiration Date Visits Re quested Visits Authorized [id number] Closed 06/26/2021 09/24/2021 1 1 Reason Comments Injections Reason Comments New Pain Stiffness Swelling Weakness Numbness/Tingling Specialty Diagnoses / Procedures Referred By Contac t Referred To Contact Orthopedics / ORTHOPAEDIC SURGERY Diagnoses SHOULDER REPLACEMENT CONSULT,RT Procedures REFERRAL TO [facility] [place] [address] [place] [id number] Rodolfo Bishop MD [address] [id number] Referral ID Status Reason Start Date Expiration Date Visits Requested Visits Authorized [id number] Pending Review Clearance Not Met -Financial Clearance Bypassed 12/03/2021 02/01/2022 1 1 Reason Comments xray and MRI 06-[address] Irwin ritter for glenoid tear left labrum and Rotator cuff syndrome left shoulder 11-22-21 New Pain Reason Comments Radio Gen RMP Specialty Diagnoses / Procedures Referred By Contac t Referred To Contact XR IMAGING Diagnoses Pain Procedures XR SHOULDER GENERAL 3V OR MORE AP/TRUE AP/OTHER LT X-RAY SHOULDER COMPLET MIN 2 VIEWS Laverne Duong, SARA [address] [place] [address] [place] [address] Referral ID Status Reason Start Date Expiration Date V isits Requested Visits Authorized [id number] Closed Auto-Generate d Referral 05/11/2021 06/10/2022 1 1 Care Teams (unrecognized sec tion and content) [employer] Relationship Specialty Start Date End Date Karl Pichardo MD [address] [place], [place] [phone] PCP - General Family Practice 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 Relationship Specialty Start Date End Date Karl Pichardo MD [address] [place], [place] [id number] PCP - General Family Practice 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 Relationship Specialty Start Date End Date Karl Pichardo MD [address] [place], [place] [id number] PCP - General Family Practice 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 [email or web address] provides no warranty or guarantee of the accuracy or completeness of information in this document.
== END 2025-04-16 12:49 | disposition left against medical advice (07) ==
LOC: ED 13:12
PROVIDERS: PCP Registered Nurse
DX: Z53.21 Procedure and treatment not carried out due to patient leaving prior to being seen by health care provider (principal)
CPT/HCPCS: 99281

== ENCOUNTER 2025-05-04 12:10 | Emergency (ER) | payer MEDICAID, SELFPAY ==
[2025-05-04 12:11] VITALS: BP 156/82; PULSE 102; RESP 16; TEMP 36.9; O2SAT 98; BMI 30.2
--- NOTE | 2025-05-04 12:13 | RAD_ITS ---
PROCEDURE: ELBOW MIN 3 VIEWS 05/04/2025 REASON FOR EXAM: FALL TECHNIQUE: Procedure Code: RADEL Modality: DX Procedure: ELBOW MIN 3 VIEWS Laterality: Left COMPARISON: None FINDINGS: Bones: No fracture Joints: Normal alignment. Soft tissues: Soft tissues are unremarkable. Other: No foreign body RAD/Elbow min 3 Views IMPRESSION: No acute abnormality Reading Location: [id number]
[2025-05-04] MEDS: Lidocaine 1% (20 ml mdv) 20 ML Vial INFILT (13:43)
--- NOTE | 2025-05-04 13:59 | EX.ED.UPPERE ---
HPI History of Present Illness HPI Narrative: Patient presents with injury to her left elbow that occurred last night. Patient states she fell and landed on her left elbow. Patient describes her pain as aching. Patient states it feels like she broke her elbow. Patient states it is worse with any movement. Patient denies any paresthesias or weakness. Patient denies any head injury or loss of consciousness. Patient denies any other injuries. Patient is unsure of her last tetanus. Chief Complaint: Upper Extremity Injury Occured/Mechanism Mechanism/Context: Yes fall Onset/Context/Timing Onset: Yesterday Context: Sudden Onset Timing: Continuous Quality of Pain: Aching Location: Left elbow Worsened by: Movement Relieved by: Nothing Associated Symptoms Associated Symptoms: Negative for Parasthesia, Weakness or Loss of Funtion Narrative Tetanus Immunization: Unknown [facility] Medical History Osteoarthritis of left knee Left knee pain Osteoarthritis of right knee Contusion of right chest wall Contusion of right shoulder Contusion of forehead History of diabetes mellitus PTSD (post-traumatic stress disorder) Wears glasses Marijuana use Diabetes Arthritis Easy bruising High cholesterol Restless legs Injury of head and neck Difficulty swallowing Gastric reflux Non-smoker History of stress test History of echocardiogram Cardiology follow-up encounter SACHA (generalized anxiety disorder) Strain of right hip History of colon polyps Acute otitis externa of left ear Acute sinusitis, unspecified TIA (transient ischemic attack) Episode of syncope Urinary tract infection with hematuria Contusion of right ankle Contusion of right foot GI bleed Positive PPD, treated Pneumonia Bronchitis Statin intolerance Dyspnea on exertion Chest pain Near syncope Orthostatic hypotension Hyperlipidemia GERD (gastroesophageal reflux disease) RSD (reflex sympathetic dystrophy) Essential hypertension Diabetes mellitus type II, controlled Strain of unspecified muscle, fascia and tendon at shoulder and upper arm level, right arm, initial encounter Asthma Shoulder pain Hemorrhoids Nausea & vomiting Depressed Home Medications ?Medication ?Instructions ?Recorded ?Last Taken ?Type ezetimibe 10 mg tablet 10 mg PO DAILY CHOLESTEROL #90 tabs 04/19/21 Unknown Rx diphenhydramine HCl 25 mg capsule 25 mg PO DAILY PRN allergy symptoms 03/28/22 Unknown History duloxetine 60 mg capsule,delayed 120 mg (2 x 60 mg) PO DAILY 10/15/22 Unknown Rx release ANXIETY 30 days #60 caps albuterol sulfate 90 mcg/actuation 2 puff inhalation Q4H PRN PRN 01/04/23 Unknown Rx aerosol inhaler (Ventolin HFA) Wheezing or shortness of breath #1 inh pen needle, diabetic 32 gauge x #100 ea 03/05/23 Unknown Rx 5/32 (BD Ultra-Fine Thais Pen Needle) alcohol swabs 1 pad topical 4X/DAY #200 ea 04/28/23 Unknown Rx ondansetron 4 mg disintegrating 4 mg PO Q6H PRN nausea and 04/28/23 Unknown Rx tablet vomiting #10 tabs allopurinol 100 mg tablet 100 mg PO DAILY 06/18/23 Unknown History pen needle, diabetic 32 gauge x #100 ea 10/23/23 Unknown Rx 5/32 (BD Ultra-Fine Thais Pen Needle) lorazepam 1 mg tablet 0.5 mg (1/2 x 1 mg) PO DAILY PRN 12/03/23 Unknown Rx Anxiety #30 tabs ibuprofen 800 mg tablet 800 mg PO DAILY 12/24/23 Unknown History insulin aspart U-100 100 unit/mL 18 sliding scale dose subcut TID 12/24/23 Unknown History (3 mL) subcutaneous pen (Novolog FlexPen U-100 Insulin aspart) hydroxyzine HCl 25 mg tablet 25 mg PO DAILY PRN anxiety 02/29/24 Unknown History colchicine 0.6 mg capsule 0.6 mg PO QDAY PRN Gout 04/21/24 Unknown History furosemide 20 mg tablet 20 mg PO QDAY 04/21/24 Unknown History losartan 100 mg tablet 100 mg PO QDAY 04/21/24 Unknown History omega-3 acid ethyl esters 1 gram 1 cap PO BID #180 caps 04/26/24 Unknown Rx capsule flash glucose sensor (FreeStyle #2 ea 06/21/24 Unknown Rx Tanmay 2 Sensor kit) omeprazole 20 mg capsule,delayed 40 mg PO DAILY GERD 07/19/24 Unknown History release insulin glargine 100 unit/mL (3 30 unit (0.3 mL) subcut QAM #27 mL 08/02/24 Unknown Rx mL) subcutaneous pen (Basaglar KwikPen U-100 Insulin) dicyclomine 10 mg capsule 10 mg PO TID PRN abdominal pain 7 11/07/24 Unknown Rx days #21 caps zinc acetate 25 mg (zinc) capsule 25 mg PO DAILY 11/07/24 Unknown History (Galzin) mecobalamin (vitamin B12) 500 mcg mcg PO 01/07/25 Unknown History chewable tablet fluconazole 100 mg tablet 100 mg PO DAILY vaginal yeast 01/17/25 Unknown Rx (Diflucan) infection #2 tabs insulin glargine 100 unit/mL (3 30 unit (0.3 mL) subcut QDAY #27 mL 01/20/25 Unknown Rx mL) subcutaneous pen (Lantus Solostar U-100 Insulin) cholecalciferol (vitamin D3) 50 50 mcg PO QDAY #90 caps 03/28/25 Unknown Rx mcg (2,000 unit) capsule nitrofurantoin 100 mg PO Q12H 5 days #10 caps 04/09/25 Unknown Rx monohydrate/macrocrystals 100 mg capsule (Macrobid) metoclopramide HCl 5 mg tablet 5 mg PO Q8H 3 days #9 tabs 04/12/25 Unknown Rx (Reglan) nitrofurantoin macrocrystal 100 mg 100 mg PO BID 7 days #14 caps 04/12/25 Unknown Rx capsule morphine 15 mg immediate release 15 mg PO Q8H PRN pain 7 days #21 04/15/25 Unknown Rx tablet tabs morphine 15 mg immediate release 15 mg PO Q8H PRN pain 7 days #21 04/15/25 Unknown Rx tablet tabs dulaglutide 4.5 mg/0.5 mL 4.5 mg (0.5 mL) subcut QWEEK #2 mL 04/22/25 Unknown Rx subcutaneous pen injector (Trulicity) cephalexin 500 mg capsule 500 mg PO Q6 #40 CAPSULES 05/04/25 Unknown Rx Allergy/AdvReac Type Severity Reaction Status Date / Time clindamycin Allergy Mild Rash Verified 05/04/25 12:11 adalimumab (From Humira) Allergy Unknown Verified 05/04/25 12:11 amoxicillin trihydrate (From Allergy Unknown Verified 05/04/25 12:11 Augmentin) codeine Allergy Itching Verified 05/04/25 12:11 etanercept (From Enbrel) Allergy Unknown Verified 05/04/25 12:11 leflunomide (From Arava) Allergy Other Verified 05/04/25 12:11 metoprolol tartrate (From Allergy Unknown Verified 05/04/25 12:11 Lopressor) morphine sulfate (From Allergy Unknown Verified 05/04/25 12:11 Embeda) naltrexone HCl (From Embeda) Allergy Unknown Verified 05/04/25 12:11 oxymorphone (Oxymorphone) Allergy Unknown Verified 05/04/25 12:11 pioglitazone HCl (From Actos) Allergy Other Verified 05/04/25 12:11 pneumococcal 23-valent Allergy Unknown Verified 05/04/25 12:11 polysacchari (From Pneumovax 23) potassium clavulanate (From Allergy Unknown Verified 05/04/25 12:11 Augmentin) Yygwloj-BVL-GmS Reductase Allergy Unknown Verified 05/04/25 12:11 Inhibitor (Cdcrfmo-Hex-Djq Reductase Inhibitor) Sulfa (Sulfonamide Allergy Anaphylaxis Verified 05/04/25 12:11 Antibiotics) sulfamethoxazole (From Allergy Anaphylaxis Verified 05/04/25 12:11 Bactrim) telithromycin (From Ketek) Allergy Unknown Verified 05/04/25 12:11 tramadol HCl (From Ultram) Allergy Unknown Verified 05/04/25 12:11 trimethoprim (From Bactrim) Allergy Anaphylaxis Verified 05/04/25 12:11 Family History Father Diabetes Hypertension Mother Diabetes Hypertension Colon polyp Other Cancer Surgical History History of arthroscopy of right knee History of hysterectomy History of appendectomy History of colonoscopy Hx of shoulder surgery Social History household members: spouse and none housing: house Smoking Status: Never smoker alcohol intake: current alcohol intake frequency: 0-2 drinks per day Alcohol type: hard liquor substance use type: other details: Gummies ROS ROS ED Constitutional Constitutional ED: Denies chills or fever(s) Eyes Eyes: Denies blurry vision or change in vision ENT ENT ED: Denies rhinorrhea or sore throat Cardiovascular Cardiovascular: Denies chest pain or palpitations Respiratory/Chest Respiratory/Chest: Denies cough or dyspnea Gastrointestinal Gastrointestinal: Denies nausea or vomiting Genitourinary Genitourinary ED: Denies dysuria or hematuria Musculoskeletal Musculoskeletal: Reports back pain; Denies neck pain Integumentary Denies abscess or rash Neurologic Neurologic: Denies headache(s) or weakness Allergic/Immunologic Allergic/Immunologic ED: Denies mouth swelling or urticaria EXAM Physical Exam Const Vital Signs: 05/04/25 12:11 Temperature 98.4 F Temperature Source Oral Pulse Rate 102 H Respiratory Rate 16 Blood Pressure 156/82 H Blood Pressure Mean 106 Pulse Ox 98 Oxygen Delivery Method Room Air Positive well nourished and well developed General Appearance ED: well developed and NAD HEENT Reports moist mucous membranes normocephalic and atraumatic Neck full ROM and supple Extremity Extremity Narrative: There is tenderness over the left elbow. There is some mild edema. Range of motion was limited in all motions of the left elbow secondary to pain. There is no deformity noted. There is a 4 cm V-shaped laceration over the posterior aspect of the left elbow. There is moderate gapping of the wound margins. There are no foreign bodies noted. Strength is 5/5 bilaterally in the upper extremities. There are no sensory deficits noted. Radial pulses are equal bilaterally. Neuro oriented x3, CN's II-XII intact bilaterally, moves all extremities, no focal motor deficits and no sensory deficits noted Sensorium / Orientation: alert Motor Exam: strength 5/5 throughout Psych mental status grossly normal MDM MDM MDM Narrative Medical decision making narrative: Differential diagnosis includes open fracture, contusion, and sprain. X-rays of the left elbow will be obtained to assess for fracture. Radiography Diagnostic Testing: Clinical Impression(s) from Imaging Studies Elbow X-Ray 05/04/25 12:13 IMPRESSION: No acute abnormality Reading Location: [facility] X-rays of the left elbow were obtained. There are 3 views. On my independent interpretation, there is no acute fracture. There is no radiopaque foreign body noted. Radiologist also interpreted the x-rays and agrees. Treatment and Re-Evaluation Narrative: Patient was given a tetanus booster. The wound was cleaned and irrigated with copious amounts of normal saline. The wound was anesthetized with 1% plain lidocaine locally. The wound was closed with 5 simple interrupted #4-0 nylon sutures under sterile technique. Patient tolerated the procedure well. Bacitracin dressing was applied. Patient was given a dose of Keflex here. Patient was given a prescription for Keflex. Patient was instructed to ice and elevate the left elbow. Patient was instructed to follow-up with her primary care physician in 5 to 7 days. Patient understood and was agreeable with the plan. All questions were answered. Discharge Plan Triage Chief Complaint: Upper Extremity Injury Other Complaint: Laceration ED Provider: Andrae Sorensen Dx/Rx/DC Orders Clinical Impression: Laceration of elbow, left, Fall Instructions: ED Laceration, All Closures Prescriptions: New cephalexin 500 mg capsule 500 mg PO Q6 Qty: 40 0RF No Action duloxetine 60 mg capsule,delayed release(DR/EC) 120 mg PO DAILY 30 Days Qty: 60 2RF alcohol swabs Pads, Medicated 1 pad topical 4X/DAY Qty: 200 5RF allopurinol 100 mg tablet 100 mg PO DAILY insulin aspart U-100 [Novolog FlexPen U-100 Insulin] 100 unit/mL (3 mL) insulin pen 18 sliding scale dose subcut TID ibuprofen 800 mg tablet 800 mg PO DAILY mecobalamin (vitamin B12) 500 mcg tablet,chewable PO furosemide 20 mg tablet 20 mg PO QDAY losartan 100 mg tablet 100 mg PO QDAY colchicine 0.6 mg capsule 0.6 mg PO QDAY PRN (Reason: Gout) fluconazole [Diflucan] 100 mg tablet 100 mg PO DAILY Qty: 2 0RF Rx Instructions: 1 tablet, repeat in 72 hours omeprazole 20 mg capsule,delayed release(DR/EC) 40 mg PO DAILY Patient Comments: gastric reflux diphenhydramine HCl 25 mg capsule 25 mg PO DAILY PRN (Reason: allergy symptoms) ondansetron 4 mg tablet,disintegrating 4 mg PO Q6H PRN (Reason: nausea and vomiting) Qty: 10 0RF albuterol sulfate [Ventolin HFA] 90 mcg/actuation HFA aerosol inhaler 2 puff inhalation Q4H PRN PRN (Reason: Wheezing or shortness of breath) Qty: 1 0RF hydroxyzine HCl 25 mg tablet 25 mg PO DAILY PRN Galzin 25 mg (zinc) capsule 25 mg PO DAILY dicyclomine 10 mg capsule 10 mg PO TID PRN (Reason: abdominal pain) 7 Days Qty: 21 0RF nitrofurantoin monohyd/m-cryst [Macrobid] 100 mg capsule 100 mg PO Q12H 5 Days Qty: 10 0RF Rx Instructions: must administer with a meal/food metoclopramide HCl [Reglan] 5 mg tablet 5 mg PO Q8H 3 Days Qty: 9 0RF nitrofurantoin macrocrystal 100 mg capsule 100 mg PO BID 7 Days Qty: 14 0RF Rx Instructions: must administer with a meal/food morphine 15 mg tablet 15 mg PO Q8H PRN (Reason: pain) 7 Days Qty: 21 0RF morphine 15 mg tablet 15 mg PO Q8H PRN (Reason: pain) 7 Days Qty: 21 0RF ezetimibe 10 mg tablet 10 mg PO DAILY Qty: 90 3RF (DME) pen needle, diabetic [BD Ultra-Fine Thais Pen Needle] 32 gauge x 5/32 needle See Rx Instructions .Route Qty: 100 5RF Rx Instructions: daily (DME) pen needle, diabetic [BD Ultra-Fine Thais Pen Needle] 32 gauge x 5/32 needle See Rx Instructions .Route Qty: 100 5RF Rx Instructions: 4x/day lorazepam 1 mg tablet 0.5 mg PO DAILY PRN (Reason: Anxiety) Qty: 30 1RF omega-3 acid ethyl esters 1 gram capsule 1 cap PO BID Qty: 180 1RF (DME) FreeStyle Tanmay 2 Sensor Kit See Rx Instructions .Route Qty: 2 5RF Rx Instructions: 1 sensor q 14 days insulin glargine [Basaglar KwikPen U-100 Insulin] 100 unit/mL (3 mL) insulin pen 30 unit subcut QAM Qty: 27 1RF insulin glargine [Lantus Solostar U-100 Insulin] 100 unit/mL (3 mL) insulin pen 30 unit subcut QDAY Qty: 27 1RF cholecalciferol (vitamin D3) 50 mcg (2,000 unit) capsule 50 mcg PO QDAY Qty: 90 1RF Trulicity 4.5 mg/0.5 mL pen injector 4.5 mg subcut QWEEK Qty: 2 3RF Primary Care Provider: Chantale Palm NP Referrals: Chantale Palm NP, [employer] [Primary Care Provider, Family Practice] - 7 Days for suture removal Print Language: Hungarian Disposition Disposition: Home, Self Care
[2025-05-04 14:51] VITALS: BP 145/89; PULSE 78; RESP 16; TEMP 36.8; O2SAT 99
== END 2025-05-04 14:58 | disposition home or self-care (01) ==
PROVIDERS: Emergency Provider Emergency Medicine; PCP Registered Nurse; Visit Provider Emergency Medicine
DX: S51.012A Laceration without foreign body of left elbow, initial encounter (principal); E11.9 Type 2 diabetes mellitus without complications; E78.00 Pure hypercholesterolemia, unspecified; I10 Essential (primary) hypertension; K21.9 Gastro-esophageal reflux disease without esophagitis; W19.XXXA Unspecified fall, initial encounter; Z23 Encounter for immunization
CPT/HCPCS: 12002; 73080; 90715; 99284

== ENCOUNTER 2025-05-20 13:35 | Emergency (ER) | payer MEDICAID, SELFPAY ==
[2025-05-20 13:35] VITALS: BP 161/109; PULSE 103; RESP 18; TEMP 36.6; O2SAT 97; BMI 30.1
--- NOTE | 2025-05-20 13:46 | EKG12_ITS ---
Test Reason : CP Blood Pressure : */* mmHG Vent. Rate : 94 BPM Atrial Rate : 94 BPM P-R Int : 130 ms QRS Dur : 72 ms QT Int : 350 ms P-R-T Axes : 27 23 29 degrees QTcB Int : 437 ms Normal sinus rhythm Normal ECG Confirmed by DARIUSZ MURILLO, FELICIA ([id number]), editor news RANDY DUMONT ([id number]) on 05/23/2025 9:14:58 AM Referred By: UNA/JANIE Confirmed By: FELICIA ARZOLA MD
[2025-05-20 14:31] LABS: Hematocrit 50.5 % (37-47); Hemoglobin 16.6 g/dL (12.0-15.0); Immature Granulocytes Count 0.020 X10^3/uL (0.0-0.0); Mean Corp Hgb Conc 32.9 g/dL (32-36); Mean Corpuscular Volume 92.3 fL (81-99); Mean Platelet Vol. 8.6 fl (6.2-12.0); NRBC Flagged by Analyzer 0 % (0-5); Platelet Count 373 K/mm3 (150-450); RBC Distribution Width CV 13.3 % (11.6-14.6); RBC Distribution Width SD 45.1 fl (35.1-43.9); Red Blood Count 5.47 M/mm3 (4.2-5.4); White Blood Count 9.8 K/mm3 (4.4-11.0)
[2025-05-20 14:48] VITALS: BP 170/106; PULSE 91; RESP 15; O2SAT 97
[2025-05-20 15:04] LABS: Anion Gap 13 (5-15); BUN 7 mg/dL (4-19); BUN/Creat Ratio 12.5 RATIO (10-20); Calcium,Total 9.7 mg/dL (7.6-11.0); Carbon Dioxide 22.6 mmol/L (21.0-32.0); Chloride 103 mmol/L (98-108); Estimated Creatinine Clearance 129.16 ml/min (50-250); Glucose 157 mg/dL (70-99); Potassium 3.7 mmol/L (3.3-5.1); Troponin T High Sensitivity < 6 ng/L (<=14)
--- NOTE | 2025-05-20 15:46 | ED.VIS.CHEST ---
HPI History of Present Illness Chief Complaint: Chest Pain Detail of Chief Complaint: Constant left-sided chest pain Informant: patient Onset/Context/Timing Onset: Days (Onset approximately 6 to 7 days ago) Activity at onset: sudden Timing: Intermittent (Initially intermittent now constant) Quality: Positive for Aching Location: Left Chest Current Severity: Mild Maximum Severity: Moderate Worsened By: Coughing Relieved By: Nothing Associated Symptoms: Positive for Dyspnea, Cough and Fever (Subjective); Negative for Nausea, Vomiting, Diaphoresis, Lightheadedness, Acid Reflux or Palpitations Narrative Narrative: Patient 60-year-old woman who presents with left-sided chest pain that is aching. Started 6 to 7 days ago. Initially intermittent. Has been constant since Friday. There are no alleviating, exacerbating precipitating factors other than coughing. Her cough is nonproductive. Provide subjective fever without chills. [facility]. She had a chest x-ray. Chest x-ray was interpreted as negative. She was told to come here because it could be something else/more serious. Patient denies history of coronary artery disease. She has no history of VTE nor she have any risk factors for VTE. She denies leg pain, swelling discoloration. She denies abdominal pain, nausea, vomiting or diarrhea. Denies black or maroon-colored stool. She denies intolerance to greasy or fried foods. She does have a history of GI bleed. She also has history of hemorrhoids. She does endorse rhinorrhea, congestion, postnasal drainage sore throat. Prior Similar Symptoms: No, With Prior NV, With Prior Angina and With Prior PE CVD Risk Factors: Positive for Hypertension, Diabetes, Hypercholesterolemia and Family History 1' </=55 PE Risk Factors: Negative for Recent Travel/Surgery, Recent Immobilization, Prior DVT or PE, Cancer or OCP + Smoking + >/=35 TAD Risk Factors: Positive for Hypertension; Negative for Marfan's Syndrome or Family History [facility] Medical History Osteoarthritis of left knee Left knee pain Osteoarthritis of right knee Contusion of right chest wall Contusion of right shoulder Contusion of forehead History of diabetes mellitus PTSD (post-traumatic stress disorder) Wears glasses Marijuana use Diabetes Arthritis Easy bruising High cholesterol Restless legs Injury of head and neck Difficulty swallowing Gastric reflux Non-smoker History of stress test History of echocardiogram Cardiology follow-up encounter SACHA (generalized anxiety disorder) Strain of right hip History of colon polyps Acute otitis externa of left ear Acute sinusitis, unspecified TIA (transient ischemic attack) Episode of syncope Urinary tract infection with hematuria Contusion of right ankle Contusion of right foot GI bleed Positive PPD, treated Pneumonia Bronchitis Statin intolerance Dyspnea on exertion Chest pain Near syncope Orthostatic hypotension Hyperlipidemia GERD (gastroesophageal reflux disease) RSD (reflex sympathetic dystrophy) Essential hypertension Diabetes mellitus type II, controlled Strain of unspecified muscle, fascia and tendon at shoulder and upper arm level, right arm, initial encounter Asthma Shoulder pain Hemorrhoids Nausea & vomiting Depressed Home Medications ?Medication ?Instructions ?Recorded ?Last Taken ?Type ezetimibe 10 mg tablet 10 mg PO DAILY CHOLESTEROL #90 tabs 04/19/21 Unknown Rx diphenhydramine HCl 25 mg capsule 25 mg PO DAILY PRN allergy symptoms 03/28/22 Unknown History duloxetine 60 mg capsule,delayed 120 mg (2 x 60 mg) PO DAILY 10/15/22 Unknown Rx release ANXIETY 30 days #60 caps albuterol sulfate 90 mcg/actuation 2 puff inhalation Q4H PRN PRN 01/04/23 Unknown Rx aerosol inhaler (Ventolin HFA) Wheezing or shortness of breath #1 inh pen needle, diabetic 32 gauge x #100 ea 03/05/23 Unknown Rx 5/32 (BD Ultra-Fine Thais Pen Needle) alcohol swabs 1 pad topical 4X/DAY #200 ea 04/28/23 Unknown Rx ondansetron 4 mg disintegrating 4 mg PO Q6H PRN nausea and 04/28/23 Unknown Rx tablet vomiting #10 tabs allopurinol 100 mg tablet 100 mg PO DAILY 06/18/23 Unknown History pen needle, diabetic 32 gauge x #100 ea 10/23/23 Unknown Rx 5/32 (BD Ultra-Fine Thais Pen Needle) lorazepam 1 mg tablet 0.5 mg (1/2 x 1 mg) PO DAILY PRN 12/03/23 Unknown Rx Anxiety #30 tabs ibuprofen 800 mg tablet 800 mg PO DAILY 12/24/23 Unknown History insulin aspart U-100 100 unit/mL 18 sliding scale dose subcut TID 12/24/23 Unknown History (3 mL) subcutaneous pen (Novolog FlexPen U-100 Insulin aspart) hydroxyzine HCl 25 mg tablet 25 mg PO DAILY PRN anxiety 02/29/24 Unknown History colchicine 0.6 mg capsule 0.6 mg PO QDAY PRN Gout 04/21/24 Unknown History furosemide 20 mg tablet 20 mg PO QDAY 04/21/24 Unknown History losartan 100 mg tablet 100 mg PO QDAY 04/21/24 Unknown History omega-3 acid ethyl esters 1 gram 1 cap PO BID #180 caps 04/26/24 Unknown Rx capsule flash glucose sensor (FreeStyle #2 ea 06/21/24 Unknown Rx Tanmay 2 Sensor kit) omeprazole 20 mg capsule,delayed 40 mg PO DAILY GERD 07/19/24 Unknown History release insulin glargine 100 unit/mL (3 30 unit (0.3 mL) subcut QAM #27 mL 08/02/24 Unknown Rx mL) subcutaneous pen (Basaglar KwikPen U-100 Insulin) dicyclomine 10 mg capsule 10 mg PO TID PRN abdominal pain 7 11/07/24 Unknown Rx days #21 caps zinc acetate 25 mg (zinc) capsule 25 mg PO DAILY 11/07/24 Unknown History (Galzin) mecobalamin (vitamin B12) 500 mcg mcg PO 01/07/25 Unknown History chewable tablet fluconazole 100 mg tablet 100 mg PO DAILY vaginal yeast 01/17/25 Unknown Rx (Diflucan) infection #2 tabs insulin glargine 100 unit/mL (3 30 unit (0.3 mL) subcut QDAY #27 mL 01/20/25 Unknown Rx mL) subcutaneous pen (Lantus Solostar U-100 Insulin) cholecalciferol (vitamin D3) 50 50 mcg PO QDAY #90 caps 03/28/25 Unknown Rx mcg (2,000 unit) capsule nitrofurantoin 100 mg PO Q12H 5 days #10 caps 04/09/25 Unknown Rx monohydrate/macrocrystals 100 mg capsule (Macrobid) metoclopramide HCl 5 mg tablet 5 mg PO Q8H 3 days #9 tabs 04/12/25 Unknown Rx (Reglan) nitrofurantoin macrocrystal 100 mg 100 mg PO BID 7 days #14 caps 04/12/25 Unknown Rx capsule morphine 15 mg immediate release 15 mg PO Q8H PRN pain 7 days #21 04/15/25 Unknown Rx tablet tabs morphine 15 mg immediate release 15 mg PO Q8H PRN pain 7 days #21 04/15/25 Unknown Rx tablet tabs dulaglutide 4.5 mg/0.5 mL 4.5 mg (0.5 mL) subcut QWEEK #2 mL 04/22/25 Unknown Rx subcutaneous pen injector ([facility]) doxycycline monohydrate 100 mg 100 mg PO BID #14 CAPSULES 05/20/25 Unknown Rx capsule Allergy/AdvReac Type Severity Reaction Status Date / Time clindamycin Allergy Mild Rash Verified 05/20/25 13:37 adalimumab (From Humira) Allergy Unknown Verified 05/20/25 13:37 amoxicillin trihydrate (From Allergy Unknown Verified 05/20/25 13:37 Augmentin) codeine Allergy Itching Verified 05/20/25 13:37 etanercept (From Enbrel) Allergy Unknown Verified 05/20/25 13:37 leflunomide (From Arava) Allergy Other Verified 05/20/25 13:37 metoprolol tartrate (From Allergy Unknown Verified 05/20/25 13:37 Lopressor) morphine sulfate (From Allergy Unknown Verified 05/20/25 13:37 Embeda) naltrexone HCl (From Embeda) Allergy Unknown Verified 05/20/25 13:37 oxymorphone (Oxymorphone) Allergy Unknown Verified 05/20/25 13:37 pioglitazone HCl (From Actos) Allergy Other Verified 05/20/25 13:37 pneumococcal 23-valent Allergy Unknown Verified 05/20/25 13:37 polysacchari (From Pneumovax 23) potassium clavulanate (From Allergy Unknown Verified 05/20/25 13:37 Augmentin) Yfmteas-DKQ-RsB Reductase Allergy Unknown Verified 05/20/25 13:37 Inhibitor (Jafohzp-Oem-Tbo Reductase Inhibitor) Sulfa (Sulfonamide Allergy Anaphylaxis Verified 05/20/25 13:37 Antibiotics) sulfamethoxazole (From Allergy Anaphylaxis Verified 05/20/25 13:37 Bactrim) telithromycin (From Ketek) Allergy Unknown Verified 05/20/25 13:37 tramadol HCl (From Ultram) Allergy Unknown Verified 05/20/25 13:37 trimethoprim (From Bactrim) Allergy Anaphylaxis Verified 05/20/25 13:37 Family History Father Diabetes Hypertension Mother Diabetes Hypertension Colon polyp Other Cancer Surgical History History of arthroscopy of right knee History of hysterectomy History of appendectomy History of colonoscopy Hx of shoulder surgery Social History household members: spouse and none housing: house Smoking Status: Current every day smoker tobacco type: cigarettes alcohol intake: current alcohol intake frequency: 0-2 drinks per day Alcohol type: hard liquor substance use type: other details: Gummies ROS ROS ED Constitutional Constitutional ED: Reports fever(s) and subjective; Denies chills or sweats Eyes Eyes: Reports none ENT ENT ED: Reports rhinorrhea; Denies ear pain or sore throat Cardiovascular Cardiovascular: Reports as per HPI; Denies orthopnea or paroxysmal nocturnal dyspnea Respiratory/Chest Respiratory/Chest: Reports cough, dyspnea and dyspnea on exertion; Denies orthopnea, paroxysmal nocturnal dyspnea or sputum Gastrointestinal Gastrointestinal: Denies abdominal pain, melena, nausea or vomiting Musculoskeletal Musculoskeletal: Denies arthralgias or myalgias Integumentary Denies rash Neurologic Neurologic: Denies headache(s) or weakness Endocrine Endocrinology: Denies cold intolerance or heat intolerance Hematologic/Lymphatic Hematologic/Lymphatic: Denies easy bleeding or easy bruising EXAM Physical Exam Const Vital Signs: 05/20/25 13:35 05/20/25 13:46 05/20/25 13:52 Temperature 98 F Temperature Source Oral Pulse Rate 103 H Respiratory Rate 18 Respiratory Effort Normal Non-Labored Respiratory Pattern Normal Blood Pressure 161/109 H Blood Pressure Mean 126 Pulse Ox 97 Oxygen Delivery Method Room Air Room Air 05/20/25 14:48 Temperature Temperature Source Pulse Rate 91 Respiratory Rate 15 Respiratory Effort Respiratory Pattern Blood Pressure 170/106 H Blood Pressure Mean 127 Pulse Ox 97 Oxygen Delivery Method Room Air Positive well nourished and well developed General Appearance ED: well developed and NAD HEENT Reports moist mucous membranes HEENT Narrative: Posterior pharynx is normal. normocephalic and atraumatic Eyes PERRL and EOMs intact bilaterally General Eye ED: Negative for pale conjunctiva or scleral icterus Neck no lymphadenopathy, supple and no JVD Resp Resp Narrative: Adventitial breath sounds left compared to right. There is no expiratory wheezing. Patient does have egophony left lower lobe posteriorly. There is also increased vocal fremitus. Cardio regular rate, regular rhythm, S1 normal heart sound, S2 normal heart sound and no murmurs GI normal to inspection, nondistended, normoactive bowel sounds, soft to palpation, non-tender, non-distended and no masses; Negative for hepatosplenomegaly Back/Spine no CVA tenderness Extremity normal to inspection Extremity Narrative: There is no asymmetry, swelling, discoloration, leg vein distention, palpable cords or tenderness along the distribution of the deep venous system. Neuro oriented x3 and CN's II-XII intact bilaterally Sensorium / Orientation: awake and alert Skin no rashes or lesions noted and no wounds MDM MDM MDM Narrative Medical decision making narrative: Patient's history is consistent with upper respiratory infection. Clinically she has a pneumonia. Nurse protocol orders were started. In my opinion patient does not have history or concern for coronary disease, VTE i.e. pulmonary embolus and clinically should not have a DVT. Her Wells score is less than 3. Lab Data Attestation: I reviewed the patient's lab results. Lab results narrative: CBC reveals elevated H&H of 16.6 and 50.5. White count and differential are normal. Electrolyte panel is remarkable for glucose of 157 narvaez unremarkable. Troponin with 48 hours of pain is less than 6. Labs: Laboratory Results - last 24 hr 05/20/25 14:25 WBC 9.8 RBC 5.47 H Hgb 16.6 H Hct 50.5 H MCV 92.3 MCH 30.3 MCHC 32.9 RDW Std Deviation 45.1 H RDW Coeff of Daiana 13.3 Plt Count 373 MPV 8.6 Immature Gran % (Auto) 0.200 Neut % (Auto) 66.6 Lymph % (Auto) 22.6 Humphreys % (Auto) 8.6 Eos % (Auto) 1.4 Baso % (Auto) 0.6 Absolute Neuts (auto) 6.5 Absolute Lymphs (auto) 2.21 Nucleated RBC % 0 Sodium 139 Potassium 3.7 Chloride 103 Carbon Dioxide 22.6 Anion Gap 13 BUN 7 Creatinine 0.55 L Estim Creat Clear Calc 129.16 Est GFR (MDRD) Non-Af 106 BUN/Creatinine Ratio 12.5 Glucose 157 H Calcium 9.7 Troponin T High Sens < 6 Radiography Chest X-Ray - ED: 2 View and Read by ED Physician (Outpatient chest x-ray was reviewed by me. There is no infiltrate, effusion or pneumothorax. Cardiac silhouette size normal. Hilum is normal. Osseous structures reveal no acute process. There is some degenerative changes noted) Treatment and Re-Evaluation :: Patient states she was discharged with cephalexin last visit. She states she had significant vomiting and could not take the medicine. Based on her numerous allergies she was treated with doxycycline. Since patient has upper respiratory symptoms with a cough and increased vocal fremitus left lower lobe we will treat for pneumonia even though not noted on x-ray which may not appear for several days not longer. Discharge Plan Triage Chief Complaint: Chest Pain ED Provider: Ron Guerrero Dx/Rx/DC Orders Clinical Impression: Pneumonia, Left-sided chest pain, Pleurisy, Diabetes, GERD (gastroesophageal reflux disease), Hyperlipidemia, SACHA (generalized anxiety disorder) Instructions: ED Pneumonia (Adult) Prescriptions: New doxycycline monohydrate 100 mg capsule 100 mg PO BID Qty: 14 0RF No Action duloxetine 60 mg capsule,delayed release(DR/EC) 120 mg PO DAILY 30 Days Qty: 60 2RF alcohol swabs Pads, Medicated 1 pad topical 4X/DAY Qty: 200 5RF allopurinol 100 mg tablet 100 mg PO DAILY insulin aspart U-100 [Novolog FlexPen U-100 Insulin] 100 unit/mL (3 mL) insulin pen 18 sliding scale dose subcut TID ibuprofen 800 mg tablet 800 mg PO DAILY mecobalamin (vitamin B12) 500 mcg tablet,chewable PO furosemide 20 mg tablet 20 mg PO QDAY losartan 100 mg tablet 100 mg PO QDAY colchicine 0.6 mg capsule 0.6 mg PO QDAY PRN (Reason: Gout) fluconazole [Diflucan] 100 mg tablet 100 mg PO DAILY Qty: 2 0RF Rx Instructions: 1 tablet, repeat in 72 hours omeprazole 20 mg capsule,delayed release(DR/EC) 40 mg PO DAILY Patient Comments: gastric reflux diphenhydramine HCl 25 mg capsule 25 mg PO DAILY PRN (Reason: allergy symptoms) ondansetron 4 mg tablet,disintegrating 4 mg PO Q6H PRN (Reason: nausea and vomiting) Qty: 10 0RF albuterol sulfate [Ventolin HFA] 90 mcg/actuation HFA aerosol inhaler 2 puff inhalation Q4H PRN PRN (Reason: Wheezing or shortness of breath) Qty: 1 0RF hydroxyzine HCl 25 mg tablet 25 mg PO DAILY PRN Galzin 25 mg (zinc) capsule 25 mg PO DAILY dicyclomine 10 mg capsule 10 mg PO TID PRN (Reason: abdominal pain) 7 Days Qty: 21 0RF nitrofurantoin monohyd/m-cryst [Macrobid] 100 mg capsule 100 mg PO Q12H 5 Days Qty: 10 0RF Rx Instructions: must administer with a meal/food metoclopramide HCl [Reglan] 5 mg tablet 5 mg PO Q8H 3 Days Qty: 9 0RF nitrofurantoin macrocrystal 100 mg capsule 100 mg PO BID 7 Days Qty: 14 0RF Rx Instructions: must administer with a meal/food morphine 15 mg tablet 15 mg PO Q8H PRN (Reason: pain) 7 Days Qty: 21 0RF morphine 15 mg tablet 15 mg PO Q8H PRN (Reason: pain) 7 Days Qty: 21 0RF ezetimibe 10 mg tablet 10 mg PO DAILY Qty: 90 3RF (DME) pen needle, diabetic [BD Ultra-Fine Thais Pen Needle] 32 gauge x 5/32 needle See Rx Instructions .Route Qty: 100 5RF Rx Instructions: daily (DME) pen needle, diabetic [BD Ultra-Fine Thais Pen Needle] 32 gauge x 5/32 needle See Rx Instructions .Route Qty: 100 5RF Rx Instructions: 4x/day lorazepam 1 mg tablet 0.5 mg PO DAILY PRN (Reason: Anxiety) Qty: 30 1RF omega-3 acid ethyl esters 1 gram capsule 1 cap PO BID Qty: 180 1RF (DME) FreeStyle Tanmay 2 Sensor Kit See Rx Instructions .Route Qty: 2 5RF Rx Instructions: 1 sensor q 14 days insulin glargine [Basaglar KwikPen U-100 Insulin] 100 unit/mL (3 mL) insulin pen 30 unit subcut QAM Qty: 27 1RF insulin glargine [Lantus Solostar U-100 Insulin] 100 unit/mL (3 mL) insulin pen 30 unit subcut QDAY Qty: 27 1RF cholecalciferol (vitamin D3) 50 mcg (2,000 unit) capsule 50 mcg PO QDAY Qty: 90 1RF Trulicity 4.5 mg/0.5 mL pen injector 4.5 mg subcut QWEEK Qty: 2 3RF Primary Care Provider: Chantale Palm NP Referrals: Chantale Palm NP, [facility] [facility] [Primary Care Provider, Family Practice] - 3-5 Days if not improving Print Language: Brazilian Disposition Disposition: Home, Self Care
[2025-05-20 16:13] VITALS: BP 161/86; PULSE 91; RESP 15; TEMP 37.2; O2SAT 97
== END 2025-05-20 16:14 | disposition home or self-care (01) ==
PROVIDERS: Emergency Provider Emergency Medicine; PCP Registered Nurse; Visit Provider Emergency Medicine
DX: J18.9 Pneumonia, unspecified organism (principal); E11.9 Type 2 diabetes mellitus without complications; Z79.4 Long term (current) use of insulin; R09.1 Pleurisy; I10 Essential (primary) hypertension; K21.9 Gastro-esophageal reflux disease without esophagitis; F41.1 Generalized anxiety disorder; F32.A Depression, unspecified; F43.10 Post-traumatic stress disorder, unspecified; E78.5 Hyperlipidemia, unspecified; G25.81 Restless legs syndrome; J45.909 Unspecified asthma, uncomplicated; F17.210 Nicotine dependence, cigarettes, uncomplicated; Z86.73 Personal history of transient ischemic attack (TIA), and cerebral infarction without residual deficits; Z87.19 Personal history of other diseases of the digestive system; Z79.85 Long-term (current) use of injectable non-insulin antidiabetic drugs; Z79.899 Other long term (current) drug therapy
CPT/HCPCS: 71046; 80048; 84484; 85025; 93005; 99284

== ENCOUNTER → 2025-05-20 | Outpatient (CLI) | payer MEDICAID, SELFPAY ==
--- NOTE | 2025-05-20 12:46 | RAD_ITS ---
PROCEDURE: CHEST PA AND LATERAL 05/20/2025 REASON FOR EXAM: COUGH TECHNIQUE: Procedure Code: RADCXR Modality: DX Procedure: CHEST PA AND LATERAL COMPARISON: April 12, 2025 FINDINGS: Hardware: Lower cervical spine fusion partially imaged. Heart: The heart size is normal. Mediastinum: The mediastinal contour is unremarkable. Lungs: The lungs are clear. Bones: The bones are unremarkable. RAD/Chest PA and Lateral IMPRESSION: No acute cardiopulmonary process Reading Location: [id number]
== END | disposition home or self-care (01) ==
LOC: MTRAD 12:46
PROVIDERS: PCP Registered Nurse; Referring Provider Physician Assistant Surgical; Visit Provider Physician Assistant Surgical
DX: J20.9 Acute bronchitis, unspecified (principal)
CPT/HCPCS: 71046

== ENCOUNTER 2025-05-23 13:23 | Emergency (ER) | payer MEDICAID, SELFPAY ==
[2025-05-23 13:24] VITALS: BP 133/86; PULSE 110; RESP 18; TEMP 35.8; O2SAT 99; BMI 29.6
[2025-05-23 14:23] VITALS: BP 137/91; PULSE 101; RESP 18; O2SAT 97
[2025-05-23 14:31] LABS: Hematocrit 50.1 % (37-47); Hemoglobin 16.4 g/dL (12.0-15.0); Immature Granulocytes Count 0.030 X10^3/uL (0.0-0.0); Mean Corp Hgb Conc 32.7 g/dL (32-36); Mean Corpuscular Volume 92.8 fL (81-99); Mean Platelet Vol. 8.8 fl (6.2-12.0); NRBC Flagged by Analyzer 0 % (0-5); Platelet Count 410 K/mm3 (150-450); RBC Distribution Width CV 13.9 % (11.6-14.6); RBC Distribution Width SD 47.1 fl (35.1-43.9); Red Blood Count 5.40 M/mm3 (4.2-5.4); White Blood Count 9.4 K/mm3 (4.4-11.0)
[2025-05-23 14:37] LABS: D-Dimer Quantitative (DVT/PE) 0.27 FEU/ug/m (0.27-0.49)
[2025-05-23 15:00] VITALS: BP 127/85; PULSE 100; RESP 18; O2SAT 97
[2025-05-23 15:00] LABS: Anion Gap 18 (5-15); BUN 5 mg/dL (4-19); BUN/Creat Ratio 6.6 RATIO (10-20); Calcium,Total 8.7 mg/dL (7.6-11.0); Carbon Dioxide 21.9 mmol/L (21.0-32.0); Chloride 97 mmol/L (98-108); Estimated Creatinine Clearance 102.19 ml/min (50-250); Glucose 309 mg/dL (70-99); Potassium 3.5 mmol/L (3.3-5.1); Troponin T High Sensitivity < 6 ng/L (<=14)
[2025-05-23 16:00] VITALS: BP 133/84; PULSE 102; RESP 18; O2SAT 97
[2025-05-23 17:00] VITALS: BP 134/91; PULSE 101; RESP 18; O2SAT 96
[2025-05-23 17:08] LABS: Troponin T High Sens 2 HR < 6 ng/L (<=14)
[2025-05-23 17:36] VITALS: BP 136/94; PULSE 97; RESP 16; TEMP 36.7; O2SAT 96
== END 2025-05-23 17:42 | disposition home or self-care (01) ==
PROVIDERS: Emergency Provider Surgery; PCP Registered Nurse; Visit Provider Surgery
DX: R07.89 Other chest pain (principal); E11.65 Type 2 diabetes mellitus with hyperglycemia; Z79.4 Long term (current) use of insulin; I10 Essential (primary) hypertension; E78.5 Hyperlipidemia, unspecified; K21.9 Gastro-esophageal reflux disease without esophagitis; F32.A Depression, unspecified; F41.1 Generalized anxiety disorder; F43.10 Post-traumatic stress disorder, unspecified; G25.81 Restless legs syndrome; J45.909 Unspecified asthma, uncomplicated; F17.210 Nicotine dependence, cigarettes, uncomplicated; Z87.01 Personal history of pneumonia (recurrent); Z86.73 Personal history of transient ischemic attack (TIA), and cerebral infarction without residual deficits; Z87.19 Personal history of other diseases of the digestive system; Z79.85 Long-term (current) use of injectable non-insulin antidiabetic drugs; Z79.899 Other long term (current) drug therapy
CPT/HCPCS: 71046; 80048; 84484; 85025; 85379; 93005; 99284; A4216

== ENCOUNTER → 2025-05-24 | Outpatient (CLI) | payer MEDICAID, SELFPAY ==
[2025-05-24 14:37] LABS: Prothrombin Time (Protime)PT. 13.1 SECONDS (11.7-14.9)
[2025-05-26 05:07] LABS: HEPATITIS B SURFACE AG Negative (Negative); Hep C Antibodies Non Reactive (Non Reactive)
== END | disposition home or self-care (01) ==
LOC: LAB 13:36
PROVIDERS: PCP Registered Nurse; Referring Provider Student in an Organized Health Care Education/Training Program; Visit Provider Student in an Organized Health Care Education/Training Program
DX: R74.8 Abnormal levels of other serum enzymes (principal); R16.0 Hepatomegaly, not elsewhere classified
CPT/HCPCS: 36415; 80074; 85610

== ENCOUNTER → 2025-06-09 | Outpatient (CLI) | payer MEDICAID, SELFPAY ==
--- NOTE | 2025-06-09 07:40 | US_ITS ---
PROCEDURE: ABD LIMITED W/ ELASTOGRAPHY REASON FOR EXAM: HEPATOMEGALY COMPARISON: Prior CT scan of the abdomen dated April 12, 2025. TECHNIQUE: Procedure Code: [id number] Modality: US Procedure: ABD LIMITED W/ ELASTOGRAPHY Right upper quadrant abdominal ultrasound. Click Bus ElastQ Imaging shear wave elastography for non-invasive assessment of liver tissue stiffness. Wale EPIQ Elite. FINDINGS: LIVER: Size: Unremarkable Length: 16.8 cm Echotexture: Diffusely echogenic suggesting fatty infiltration Contour: Normal Lesions: None identified Elastography: EQI Med: 4.7 kPa EQI Med Jordan: 1.24 m/s IQR/Med: 28.7 %* GALLBLADDER: Surgically absent. COMMON BILE DUCT: Dilated measuring up to 7 mm . PANCREAS: Normal Visualized portions of the right kidney are unremarkable. No right upper quadrant ascites. US/ABD Limited w/ Elastography IMPRESSION: NO TO MILD HEPATIC FIBROSIS Fatty infiltration of the liver. Status post cholecystectomy. Reference Values: SRU <1.37 m/s (5.7kPa): No to mild fibrosis 1.37 m/s - 2.2 m/s: Moderate to severe fibrosis >2.2 m/s (15kPa): Significant fibrosis / cirrhosis METAVIR Score F2 or higher: 1.34 m/s (5.7kPa) F3 or higher: 1.55 m/s (7.3kPa) F4: 1.80 m/s (10kPa) * If the IQR/Med is >30%, the variance in the measurements is a large and the a ccuracy of the measurement may be in question. Reading Location: [id number]
== END | disposition home or self-care (01) ==
LOC: OPUS 07:39
PROVIDERS: PCP Registered Nurse; Referring Provider Student in an Organized Health Care Education/Training Program; Visit Provider Student in an Organized Health Care Education/Training Program
DX: R74.8 Abnormal levels of other serum enzymes (principal)
CPT/HCPCS: 76705; 76981

== ENCOUNTER 2025-06-14 12:05 | Day surgery (SDC) | payer MEDICAID, SELFPAY ==
--- NOTE | 2025-06-13 12:51 | PAT.ANE_ITS ---
Pre-Assessment Diagnosis/Proposed Procedure Planned Operative Procedure(s): EGD Anesthesia History Anesthesia History - weather anchor: Anesthesia History - weather anchor Hx Hospitalization No 06/13/25 10:12 Any Problems With Anesthesia No 06/13/25 10:12 Cholinesterase deficiency No 06/13/25 10:12 You/Your Family Experience No 06/13/25 10:12 fever (hyperthermia) with Relationship Recent Exposure to Contagious No 05/20/25 11:57 Disease Does patient have nerve No 06/13/25 10:12 stimulator Patient instructed to have device shut off --Does patient have Pacemaker or ICD? When Was Last Pacemaker Check QUESTION #4 FULL TEXT: You/Your Family Experience fever (hyperthermia) with Anesthesia Last Oral Intake Last Oral intake: Last Oral Intake NPO since Meds taken in AM with sips of water? Meds patient instructed to take am of surgery PONV PONV - weather anchor: PONV - weather anchor Female Yes 06/13/25 10:12 HX of Motion Sickness No 06/13/25 10:12 HX of N/V After Surgery No 06/13/25 10:12 Non-Smoker No 06/13/25 10:12 Duration of Surgery greater No 06/13/25 10:12 than 60 minutes Number of Risk Factors 1 06/13/25 10:12 PONV Score Low Risk 06/13/25 10:12 Height & Weight Height & Weight: Anesthesia: Height & Weight Height 5 ft 8 in 05/25/25 13:42 Respiratory Assessment Respiratory Assessment - weather anchor: Respiratory Tract Infection Hx - weather anchor Hx Respiratory Tract Infection No 06/13/25 10:12 STOP Sleep Apnea STOP Sleep Apnea - weather anchor: STOP Sleep Apnea - weather anchor Hx Hypertension Yes: CONTROLLED ON MED 06/13/25 10:12 Hx Sleep Apnea No 06/13/25 10:12 CPAP No 06/13/25 10:12 BIPAP No 06/13/25 10:12 Do you snore loudly (louder No 06/13/25 10:12 than talking or can be heard Do you often feel tired/ No 06/13/25 10:12 fatigued/ sleepy during daytime? Has anyone observed you stop No 06/13/25 10:12 breathing during sleep? STOP Results Negative 06/13/25 10:12 QUESTION #5 FULL TEXT : Do you snore loudly (louder than talking or can be heard through closed doors)? 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 Specify any problems Hx of Preganancy in last 3 No 06/13/25 10:12 Months Nurse Filling Out Transfusion VCHRISTIN 06/13/25 10:12 & Questions: Date: 06/13/25 06/13/25 10:12 Time: 10:14 06/13/25 10:12 Patient unable to answer at this time (ie. confused, unrespo /Reproduction History /Reproductive History - weather anchor: /Reproductive Hx- weather anchor Hx Now No 06/13/25 10:12 Gestational Age (in weeks): EDC: Hx Hx Para Hx Section SAB No 06/13/25 10:12 Does the father of the baby or his family experience fever w Father of the baby Malignant Hypertension history comment [facility] Medical History (Updated 06/13/25 @ 10:12 by Valorie Mckeon) Alcohol use Insulin dependent diabetes mellitus Arthritis History of renal disease Kidney stones Injury of head and neck History of edema Normal Holter exam Normal stress echocardiogram Osteoarthritis of left knee Left knee pain Osteoarthritis of right knee Contusion of right chest wall Contusion of right shoulder Contusion of forehead History of diabetes mellitus PTSD (post-traumatic stress disorder) Wears glasses Marijuana use Diabetes Arthritis Easy bruising High cholesterol Restless legs Injury of head and neck Difficulty swallowing Gastric reflux Non-smoker History of stress test History of echocardiogram Cardiology follow-up encounter SACHA (generalized anxiety disorder) Strain of right hip History of colon polyps Acute otitis externa of left ear Acute sinusitis, unspecified TIA (transient ischemic attack) Episode of syncope Urinary tract infection with hematuria Contusion of right ankle Contusion of right foot GI bleed Positive PPD, treated Pneumonia Bronchitis Statin intolerance Dyspnea on exertion Chest pain Near syncope Orthostatic hypotension Hyperlipidemia GERD (gastroesophageal reflux disease) RSD (reflex sympathetic dystrophy) Essential hypertension Diabetes mellitus type II, controlled Strain of unspecified muscle, fascia and tendon at shoulder and upper arm level, right arm, initial encounter Asthma Shoulder pain Hemorrhoids Nausea & vomiting Depressed Home Medications Medication Instructions Recorded Last Taken Type ezetimibe 10 mg tablet 10 mg PO DAILY CHOLESTEROL # 90 tabs 04/19/21 Unknown Rx duloxetine 60 mg capsule,delayed 120 mg (2 x 60 mg) PO DAILY 10/15/22 05/22/25 Rx release ANXIETY 30 days #60 caps pen needle, diabetic 32 gauge x #100 ea 03/05/23 Unkno wn Rx " (BD Ultra-Fine Thais Pen Needle) alcohol swabs 1 pad topical 4X/DAY NAUSEA #200 ea 04/28/23 05/23/25 Rx ondansetron 4 mg disintegrating 4 mg PO Q6H PRN nausea and 04/28/23 05/22/25 Rx tablet vomiting #10 tabs allopurinol 100 mg tablet 100 mg PO DAILY GOUT 3 05/22/25 History pen needle, diabetic 32 gauge x #100 ea 10/23/23 Unkno wn Rx " (BD Ultra-Fine Thais Pen Needle) ibuprofen 800 mg tablet 800 mg PO DAILY PAIN 4 05/22/25 History insulin aspart U-100 100 unit/mL See Rx Instructions s ubcut TID 12/24/23 05/23/25 History (3 mL) subcutaneous pen (Novolog DIABETES FlexPen U-100 Insulin aspart) colchicine 0.6 mg capsule 0.6 mg PO QDAY PRN Gout 04/04 03/27 Unknown History furosemide 20 mg tablet 20 mg PO QDAY EDEMA 04/21/24 05/22/25 History losartan 100 mg tablet 100 mg PO QDAY BP 04/21/24 1 History flash glucose sensor (FreeStyle #2 ea 06/21/24 Unknown Rx Tanmay 2 Sensor kit) mecobalamin (vitamin B12) 500 mcg 500 mcg PO DAILY SUP PLEMENT 01/07/25 05/22/25 History chewable tablet cholecalciferol (vitamin D3) 50 50 mcg PO QDAY SUPPLEM ENT #90 caps 03/28/25 05/22/25 Rx mcg (2,000 unit) capsule L.acidophil,salivari-Bifido 1 cap PO DAILY SUPPLEMENT 05/23/25 Unknown History bifidum-Strep thermoph 175 mg capsule (Acidophilus Probiotic Blend) acetaminophen 500 mg capsule 500 mg PO DAILY pain 05/05 Unknown History albuterol sulfate 90 mcg/actuation 2 puff inhalation Q 4H PRN Wheezing 05/23/25 05/04/25 History aerosol inhaler (Ventolin HFA) or shortness of breath cyclosporine 0.05 % eye drops in a 1 drp ophthalmic (e ye) BID 05/23/25 05/22/25 History dropperette (Restasis) DRY/ITCHING insulin glargine 100 unit/mL (3 30 unit subcut QAM 05/23/25 History mL) subcutaneous pen (Basaglar KwikPen U-100 Insulin) insulin glargine 100 unit/mL (3 20 unit subcut QDAY DI ABETES 05/23/25 05/23/25 History mL) subcutaneous pen (Lantus Solostar U-100 Insulin) Held on 06/13/25. Instructions: NOT USING lorazepam 1 mg tablet 1 mg PO DAILY PRN Anxiety 05/23/25 History multivitamin (Daily Multi-Vitamin 1 tab PO DAILY SUPPL EMENT 05/23/25 05/22/25 History tablet) omeprazole 40 mg capsule,delayed 40 mg PO DAILY GERD 1 Unknown History release Allergy/AdvReac Type Severity Reaction Status Date / Time clindamycin Allergy Mild Rash Verified 06/13/25 09:55 adalimumab (From Humira) Allergy Unknown Verified 06/13/25 09:55 amoxicillin trihydrate (From Allergy Unknown Verified 06/13/25 09:55 Augmentin) codeine Allergy Itching Verified 06/13/25 09:55 etanercept (From Enbrel) Allergy Unknown Verified 06/13/25 09:55 leflunomide (From Arava) Allergy Other Verified 06/13/25 09:55 metoprolol tartrate (From Allergy Unknown Verified 06/13/25 09:55 Lopressor) morphine sulfate (From Allergy Unknown Verified 06/13/25 09:55 Embeda) naltrexone HCl (From Embeda) Allergy Unknown Verified 06/13/25 09:55 oxymorphone (Oxymorphone) Allergy Unknown Verified 06/13/25 09:55 pioglitazone HCl (From Actos) Allergy Other Verified 06/13/25 09:55 pneumococcal 23-valent Allergy Unknown Verified 06/13/25 09:55 polysacchari (From Pneumovax 23) potassium clavulanate (From Allergy Unknown Verified 06/13/25 09:55 Augmentin) Xibdwkb-EXA-QrX Reductase Allergy Unknown Verified 06/13/25 09:55 Inhibitor (Vsazumf-Xzm-Zqn Reductase Inhibitor) Sulfa (Sulfonamide Allergy Anaphylaxis Verified 06/13/25 09:55 Antibiotics) sulfamethoxazole (From Allergy Anaphylaxis Verified 06/13/25 09:55 Bactrim) telithromycin (From Ketek) Allergy Unknown Verified 06/13/25 09:55 tramadol HCl (From Ultram) Allergy Unknown Verified 06/13/25 09:55 trimethoprim (From Bactrim) Allergy Anaphylaxis Verified 06/13/25 09:55 Family History Father Diabetes Hypertension Mother Diabetes Hypertension Colon polyp Other Cancer Surgical History (Updated 06/13/25 @ 10:12 by Valorie Mckeon) History of cardiac catheterization History of esophagogastroduodenoscopy (EGD) History of arthroscopy of right knee History of hysterectomy History of appendectomy History of colonoscopy Hx of shoulder surgery Social History household members: spouse and none housing: house Smoking Status: Current every day smoker tobacco type: cigarettes alcohol intake: current alcohol intake frequency: 0-2 drinks per day Alcohol type: hard liquor substance use type: other details: Gummies Audit: Pertinent Findings HISTORY of Pertinent Findings History of Pertinent Findings: She has been evaluated by Dr. Roberts in November 2022. At that time she had presented with chest discomfort shortness of breath and dyspnea on exertion. She underwent left heart catheterization which showed mild coronary artery disease in the left ventricular ejection fraction of 65% with normal wall motion. The only lesion she had was a 20% ostial LAD lesion. There is no significant valvular heart disease documented. Pertinent Findings EKG Perinent findings: 05/2025: NSR Echo (EF%) pertinent findings: 02/2025: Normal LV size, EF 60%, LVSF normal. Additional pertinent findings: Holter monitor: 01/2025: NSR with rare PVCs/PACs Recommendation Anesthesia Recommendation Anesthesia recommendation: OPTIMIZED for anesthesia
[2025-06-14] VITALS (8 sets, daily range): BP systolic 124–155; BP diastolic 79–98; PULSE 90–102; RESP 16–18; TEMP 36.1–37.1; O2SAT 92–98; BMI 30.4
[2025-06-14] MEDS: Lactated Ringers 1,000 ML 15 ML IV (12:50)
--- NOTE | 2025-06-14 13:06 | PCM.PRE.AN2 ---
ASA Classification* ASA Classification ASA Classification: 3 (CAD, Asthma, T2DM, TIA, CKD3, GERD) Assessment & Plan Anesthesia* Anesthesia Assessment Anesthesia Assessment: Discussed sedation and/or anesthesia options, risks, benefits, and alternatives with patient/parents/legal guardian/POA. Questions invited. The patient/parents/legal guardian/POA seems to understand and agrees to proceed with anesthesia plan. Reviewed the physical assessment, medical history, allergy history and patient home medications list prior to surgery/procedure/anesthetic and documented any changes. Performed airway and anesthesia risk assessments. Anesthesia Type Anesthesia Type: MAC History Source History Obtained from:: Patient and Chart Anesthesia Focused Assessment* Temperature: 97.0 F Pulse Rate: 95 Blood Pressure: 155/97 Respiratory Rate: 18 Pulse Ox: 98 Oxygen Delivery Method: Room Air Airway Assessment Mouth opens: >3 cm Mallampati Score: II Teeth Condition: Intact Labs Anesthesia Preop lab: CBC WBC, (4.4-11.0) 9.4 K/mm3 05/23/25, 13:46 RBC, (4.2-5.4) 5.40 M/mm3 05/23/25, 13:46 Hgb, (12.0-15.0) 16.4 g/dL H 05/23/25, 13:46 Hct, (37-47) 50.1 % H 05/23/25, 13:46 Plt Count, (150-450) 410 K/mm3 05/23/25, 13:46 CHEMISTRY Potassium, (3.3-5.1) 3.5 mmol/L 05/23/25, 13:46 Sodium, (133-145) 136 mmol/L 05/23/25, 13:46 Magnesium, (1.6-2.6) 1.9 mg/dL 01/04/23, 20:20 Phosphorus, (2.5-4.9) 2.6 mg/dL 08/19/19, 17:35 BUN, (4-19) 5 mg/dL 05/23/25, 13:46 Creatinine, (0.70-1.20) 0.69 mg/dL L 05/23/25, 13:46 Glucose, (70-99) 309 mg/dL H 05/23/25, 13:46 POC Glucose, (74-106) 374 mg/dL H 02/29/24, 15:44 TSH, (0.300-4.200) 2.180 uIU/mL 01/07/25, 10:40 COAG PT, (11.7-14.9) 13.1 SECONDS 05/24/25, 13:38 Pre-Assessment Diagnosis/Proposed Procedure Planned Operative Procedure(s): EGD Anesthesia History 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 When Was Last Pacemaker Check QUESTION #4 FULL TEXT: You/Your Family Experience fever (hyperthermia) with Anesthesia Last Oral Intake Last Oral intake: Last Oral Intake NPO since 09:30 06/14/25 12:28 Meds taken in AM with sips of No 06/14/25 12:28 water? Meds patient instructed to take am of surgery PONV PONV - spindle plumber: PONV - spindle plumber Female Yes 06/13/25 10:12 HX of Motion Sickness No 06/13/25 10:12 HX of N/V After Surgery No 06/13/25 10:12 Non-Smoker No 06/13/25 10:12 Duration of Surgery greater No 06/13/25 10:12 than 60 minutes Number of Risk Factors 1 06/13/25 10:12 PONV Score Low Risk 06/13/25 10:12 Height & Weight Height & Weight: Anesthesia: Height & Weight Height 5 ft 8 in 06/14/25 12:28 Weight: 90.7 kg 06/14/25 12:28 Body Mass Index (BMI) 30.4 06/14/25 12:28 Respiratory Assessment Respiratory Assessment - spindle plumber: Respiratory Tract Infection Hx - spindle plumber Hx Respiratory Tract Infection No 06/13/25 10:12 STOP Sleep Apnea STOP Sleep Apnea - spindle plumber: STOP Sleep Apnea - spindle plumber Hx Hypertension Yes: CONTROLLED ON MED 06/13/25 10:12 Hx Sleep Apnea No 06/13/25 10:12 CPAP No 06/13/25 10:12 BIPAP No 06/13/25 10:12 Do you snore loudly (louder No 06/13/25 10:12 than talking or can be heard Do you often feel tired/ No 06/13/25 10:12 fatigued/ sleepy during daytime? Has anyone observed you stop No 06/13/25 10:12 breathing during sleep? STOP Results Negative 06/13/25 10:12 QUESTION #5 FULL TEXT : Do you snore loudly (louder than talking or can be heard through closed doors)? 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 Specify any problems Hx of Preganancy in last 3 No 06/13/25 10:12 Months Nurse Filling Out Transfusion VCHRISTIN 06/13/25 10:12 & Questions: Date: 06/13/25 06/13/25 10:12 Time: 10:14 06/13/25 10:12 Patient unable to answer at this time (ie. confused, unrespo /Reproduction History /Reproductive History - spindle plumber: /Reproductive Hx- spindle plumber Hx Now No 06/13/25 10:12 Gestational Age (in weeks): EDC: Hx Hx Para Hx Section SAB No 06/13/25 10:12 Does the father of the baby or his family experience fever w Father of the baby Malignant Hypertension history comment Active Medications Active Medications: Current Medications Generic Name Dose Route Start Last Admin Trade Name Freq PRN Reason Stop Dose Admin Lactated Ringer's 1,000 mls @ 15 mls/hr 06/14/25 12:15 06/14/25 12:50 IV 15 mls/hr .Q48H NITZA Administration PFSH Medical History (Updated 06/13/25 @ 10:12 by Valorie Mckeon) Alcohol use Insulin dependent diabetes mellitus Arthritis History of renal disease Kidney stones Injury of head and neck History of edema Normal Holter exam Normal stress echocardiogram Osteoarthritis of left knee Left knee pain Osteoarthritis of right knee Contusion of right chest wall Contusion of right shoulder Contusion of forehead History of diabetes mellitus PTSD (post-traumatic stress disorder) Wears glasses Marijuana use Diabetes Arthritis Easy bruising High cholesterol Restless legs Injury of head and neck Difficulty swallowing Gastric reflux Non-smoker History of stress test History of echocardiogram Cardiology follow-up encounter SACHA (generalized anxiety disorder) Strain of right hip History of colon polyps Acute otitis externa of left ear Acute sinusitis, unspecified TIA (transient ischemic attack) Episode of syncope Urinary tract infection with hematuria Contusion of right ankle Contusion of right foot GI bleed Positive PPD, treated Pneumonia Bronchitis Statin intolerance Dyspnea on exertion Chest pain Near syncope Orthostatic hypotension Hyperlipidemia GERD (gastroesophageal reflux disease) RSD (reflex sympathetic dystrophy) Essential hypertension Diabetes mellitus type II, controlled Strain of unspecified muscle, fascia and tendon at shoulder and upper arm level, right arm, initial encounter Asthma Shoulder pain Hemorrhoids Nausea & vomiting Depressed Home Medications Medication Instructions Recorded Last Taken Type ezetimibe 10 mg tablet 10 mg PO DAILY CHOLESTEROL #90 tabs 04/19/21 Unknown Rx duloxetine 60 mg capsule,delayed 120 mg (2 x 60 mg) PO DAILY 10/15/22 05/22/25 Rx release ANXIETY 30 days #60 caps pen needle, diabetic 32 gauge x #100 ea 03/05/23 Unknown Rx 32" (BD Ultra-Fine Thais Pen Needle) alcohol swabs 1 pad topical 4X/DAY NAUSEA #200 ea 04/28/23 05/23/25 Rx ondansetron 4 mg disintegrating 4 mg PO Q6H PRN nausea and 04/28/23 05/22/25 Rx tablet vomiting #10 tabs allopurinol 100 mg tablet 100 mg PO DAILY GOUT 06/18/23 05/22/25 History pen needle, diabetic 32 gauge x #100 ea 10/23/23 Unknown Rx 5/32" (BD Ultra-Fine Thais Pen Needle) ibuprofen 800 mg tablet 800 mg PO DAILY PAIN 12/24/23 05/22/25 History insulin aspart U-100 100 unit/mL See Rx Instructions subcut TID 12/24/23 05/23/25 History (3 mL) subcutaneous pen (Novolog DIABETES FlexPen U-100 Insulin aspart) colchicine 0.6 mg capsule 0.6 mg PO QDAY PRN Gout 04/21/24 Unknown History furosemide 20 mg tablet 20 mg PO QDAY EDEMA 04/21/24 05/22/25 History losartan 100 mg tablet 100 mg PO QDAY BP 04/21/24 06/14/25 History flash glucose sensor (FreeStyle #2 ea 06/21/24 Unknown Rx Tanmay 2 Sensor kit) mecobalamin (vitamin B12) 500 mcg 500 mcg PO DAILY SUPPLEMENT 01/07/25 05/22/25 History chewable tablet cholecalciferol (vitamin D3) 50 50 mcg PO QDAY SUPPLEMENT #90 caps 03/28/25 05/22/25 Rx mcg (2,000 unit) capsule L.acidophil,salivari-Bifido 1 cap PO DAILY SUPPLEMENT 05/23/25 Unknown History bifidum-Strep thermoph 175 mg capsule (Acidophilus Probiotic Blend) acetaminophen 500 mg capsule 500 mg PO DAILY pain 05/23/25 Unknown History albuterol sulfate 90 mcg/actuation 2 puff inhalation Q4H PRN Wheezing 05/23/25 05/04/25 History aerosol inhaler (Ventolin HFA) or shortness of breath cyclosporine 0.05 % eye drops in a 1 drp ophthalmic (eye) BID 05/23/25 05/22/25 History dropperette (Restasis) DRY/ITCHING insulin glargine 100 unit/mL (3 30 unit subcut QAM 05/23/25 05/23/25 History mL) subcutaneous pen (Basaglar KwikPen U-100 Insulin) insulin glargine 100 unit/mL (3 20 unit subcut QDAY DIABETES 05/23/25 05/23/25 History mL) subcutaneous pen (Lantus Solostar U-100 Insulin) Held on 06/13/25. Instructions: NOT USING lorazepam 1 mg tablet 1 mg PO DAILY PRN Anxiety 05/23/25 05/23/25 History multivitamin (Daily Multi-Vitamin 1 tab PO DAILY SUPPLEMENT 05/23/25 05/22/25 History tablet) omeprazole 40 mg capsule,delayed 40 mg PO DAILY GERD 05/23/25 Unknown History release Allergy/AdvReac Type Severity Reaction Status Date / Time clindamycin Allergy Mild Rash Verified 06/14/25 12:27 adalimumab (From Humira) Allergy Unknown Verified 06/14/25 12:27 amoxicillin trihydrate (From Allergy Unknown Verified 06/14/25 12:27 Augmentin) codeine Allergy Itching Verified 06/14/25 12:27 etanercept (From Enbrel) Allergy Unknown Verified 06/14/25 12:27 leflunomide (From Arava) Allergy Other Verified 06/14/25 12:27 metoprolol tartrate (From Allergy Unknown Verified 06/14/25 12:27 Lopressor) morphine sulfate (From Allergy Unknown Verified 06/14/25 12:27 Embeda) naltrexone HCl (From Embeda) Allergy Unknown Verified 06/14/25 12:27 oxymorphone (Oxymorphone) Allergy Unknown Verified 06/14/25 12:27 pioglitazone HCl (From Actos) Allergy Other Verified 06/14/25 12:27 pneumococcal 23-valent Allergy Unknown Verified 06/14/25 12:27 polysacchari (From Pneumovax 23) potassium clavulanate (From Allergy Unknown Verified 06/14/25 12:27 Augmentin) Vuacenw-Ydl-Vhu Reductase Allergy Unknown Verified 06/14/25 12:27 Inhibitor Sulfa (Sulfonamide Allergy Anaphylaxis Verified 06/14/25 12:27 Antibiotics) sulfamethoxazole (From Allergy Anaphylaxis Verified 06/13/25 09:55 Bactrim) telithromycin (From Ketek) Allergy Unknown Verified 06/14/25 12:27 tramadol HCl (From Ultram) Allergy Unknown Verified 06/14/25 12:27 trimethoprim (From Bactrim) Allergy Anaphylaxis Verified 06/14/25 12:27 Family History Father Diabetes Hypertension Mother Diabetes Hypertension Colon polyp Other Cancer Surgical History (Updated 06/13/25 @ 10:12 by Valorie Mckeon) History of cardiac catheterization History of esophagogastroduodenoscopy (EGD) History of arthroscopy of right knee History of hysterectomy History of appendectomy History of colonoscopy Hx of shoulder surgery Social History household members: spouse and none housing: house Smoking Status: Current every day smoker tobacco type: cigarettes alcohol intake: current alcohol intake frequency: 0-2 drinks per day Alcohol type: hard liquor substance use type: other details: Gummies Review of Systems (Anesthesia) ROS Narrative System reviewed and no additional complaints, except as documented. Physical Exam Const alert, oriented x3 and average body habitus Resp normal respiratory effort, normal air movement and clear to auscultation bilaterally Cardio regular rate, regular rhythm and no murmurs; Negative for diaphoretic
--- NOTE | 2025-06-14 13:15 | EGD_PTH ---
PATIENT: AALIYAH LAY LOC: EN U#:[id number] AGE/SX: 60/F ROOM: RE06/14/[address]: Dr. Yousif Casey DO : 1965 BED: DIS: 06/14/2025 SPEC #: [id number] RECD: 06/14/25 14:22 STATUS: JUSTA RELucia #: [id number] [place]: 06/14/25 13:[address]: Yousif Casey DEPT: SURGICAL PATHOLOGY RECD BY: Ugo Douglas ENTERED: 06/14/25 15:05 SP TYPE: EGD BIOPSY OT DR: Chantale Palm, [employer] Tissues: A - Duodenum, NOS B - Gastric mucous membrane C - Esophagus, NOS Procedures: Immunohistochemical Stains Special Stain Group I Surgery Specimen Level IV GMS Stain (control) HEADER OPERATION: EGD, biopsy PRE-OP DIAGNOSIS: Elevated liver enzymes, hepatomegaly, nausea / vomiting TISSUE SUBMITTED: A- Duodenum biopsy, B- Gastric antrum biopsy, C- Distal esophagus biopsy MICROSCOPIC DIAGNOSIS A. Duodenum, biopsy: - Normal villous architecture with mild Cholo gland hyperplasia and focal gastric mucin cell metaplasia, suggestive of peptic injury. B. Gastric antrum, biopsy: - Oxyntic and antral mucosa with chronic gastritis. - IHC for H pylori is pending and will be reported in an addendum. C. Distal esophagus, biopsy: - Squamous mucosa with reactive changes. - Columnar mucosa negative for goblet cell metaplasia. - PASD stain negative for fungal organisms. MICROSCOPIC DESCRIPTION Slides are reviewed. All matched controls reacted appropriately. These tests were developed and their performance characteristics determined by [facility]. They may not have been cleared or approved by the U.S. Food and Drug Administration. The FDA has determined that such clearance or approval is not necessary. The above immunohistochemical markers are viewed by the Pathologist. GROSS DESCRIPTION A. Received in fixative is one container labeled with the patient's name and designated "Duodenum biopsy." The specimen consists of two irregular fragments of abreu tissue that measure 0.2 and 0.3 cm. The specimen is totally submitted in one cassette. B. Received in fixative is one container labeled with the patient's name and designated "Gastric antrum biopsy." The specimen consists of multiple irregular fragments of abreu tissue that in aggregate measure 0.9 x 0.3 x 0.1 cm. The specimen is totally submitted in one cassette. C. Received in fixative is one container labeled with the patient's name and designated "Distal esophagus biopsy." The specimen consists of three irregular fragments of abreu tissue, each measuring 0.3 cm. The specimen is totally submitted in one cassette. [place] 06/14/2025 [facility]:[id number] ADDENDUM ADDENDUM ADDENDUM ADDENDUM 06/20/2025 15:19 ADDENDUM 06/20/2025 15:19 ADDENDUM 06/20/2025 15:19 ADDENDUM 06/20/2025 15:19 ADDENDUM 06/20/2025 15:19 This addendum is to report the result of the IHC stain on part B: B) IHC negative for H. pylori organisms.
--- NOTE | 2025-06-14 13:29 | PCM.HP.STD ---
HPI - General General Date of Admission: 06/14/25 Date of Service: 06/14/25 Chief Complaint: abdominal pain, nausea, vomiting and feeling full. HPI Narrative AALIYAH LAY, is a 60 F who presents Chief Complaint: Fatty liver CT abdomen pelvis 04/12/2025 mildly thickened urinary bladder wall which may reflect cystitis versus nondistention. Hepatomegaly to 17.7 cm. Patient referred from primary care provider for elevated liver enzymes and hepatomegaly. Patient endorsing daily alcohol consumption. She has about 4 shots of vodka in the evening to help her sleep. She takes Tylenol and ibuprofen daily for chronic pain from CRPS/RSD. In the past she was on opioids to control her pain. Patient also having daily nausea with 4-5 episodes of emesis per day. Vomiting is typically triggered by sunlight. It is not always associated with oral intake. She eats a few bites of her food and then feels full. She has not had significant weight loss from this. Patient's vomiting started in her 30s but has progressed since. She does have a history of diabetes and has had a gastric emptying study in the past but is unsure of this result. Last colonoscopy was in 2021 without pertinent abnormality. She is unsure if she has ever had an EGD. ABD Limited w/ Elastography Today R74.8 - Abnormal levels of other serum enzymes Hepatitis Panel Acute Today R16.0 - Hepatomegaly, not elsewhere classified, R74.8 - Abnormal levels of other serum enzymes Prothrombin Time w/INR Today R16.0 - Hepatomegaly, not elsewhere classified, R74.8 - Abnormal levels of other serum enzymes ] [facility] Medical History Alcohol use Insulin dependent diabetes mellitus Arthritis History of renal disease Kidney stones Injury of head and neck History of edema Normal Holter exam Normal stress echocardiogram Osteoarthritis of left knee Left knee pain Osteoarthritis of right knee Contusion of right chest wall Contusion of right shoulder Contusion of forehead History of diabetes mellitus PTSD (post-traumatic stress disorder) Wears glasses Marijuana use Diabetes Arthritis Easy bruising High cholesterol Restless legs Injury of head and neck Difficulty swallowing Gastric reflux Non-smoker History of stress test History of echocardiogram Cardiology follow-up encounter SACHA (generalized anxiety disorder) Strain of right hip History of colon polyps Acute otitis externa of left ear Acute sinusitis, unspecified TIA (transient ischemic attack) Episode of syncope Urinary tract infection with hematuria Contusion of right ankle Contusion of right foot GI bleed Positive PPD, treated Pneumonia Bronchitis Statin intolerance Dyspnea on exertion Chest pain Near syncope Orthostatic hypotension Hyperlipidemia GERD (gastroesophageal reflux disease) RSD (reflex sympathetic dystrophy) Essential hypertension Diabetes mellitus type II, controlled Strain of unspecified muscle, fascia and tendon at shoulder and upper arm level, right arm, initial encounter Asthma Shoulder pain Hemorrhoids Nausea & vomiting Depressed Home Medications Medication Instructions Recorded Last Taken Type ezetimibe 10 mg tablet 10 mg PO DAILY CHOLESTEROL #90 tabs 04/19/21 Unknown Rx duloxetine 60 mg capsule,delayed 120 mg (2 x 60 mg) PO DAILY 10/15/22 05/22/25 Rx release ANXIETY 30 days #60 caps pen needle, diabetic 32 gauge x #100 ea 03/05/23 Unknown Rx 532" (BD Ultra-Fine Thais Pen Needle) alcohol swabs 1 pad topical 4X/DAY NAUSEA #200 ea 04/28/23 05/23/25 Rx ondansetron 4 mg disintegrating 4 mg PO Q6H PRN nausea and 04/28/23 05/22/25 Rx tablet vomiting #10 tabs allopurinol 100 mg tablet 100 mg PO DAILY GOUT 06/18/23 05/22/25 History pen needle, diabetic 32 gauge x #100 ea 10/23/23 Unknown Rx 532" (BD Ultra-Fine Thais Pen Needle) ibuprofen 800 mg tablet 800 mg PO DAILY PAIN 12/24/23 05/22/25 History insulin aspart U-100 100 unit/mL See Rx Instructions subcut TID 12/24/23 05/23/25 History (3 mL) subcutaneous pen (Novolog DIABETES FlexPen U-100 Insulin aspart) colchicine 0.6 mg capsule 0.6 mg PO QDAY PRN Gout 04/21/24 Unknown History furosemide 20 mg tablet 20 mg PO QDAY EDEMA 04/21/24 05/22/25 History losartan 100 mg tablet 100 mg PO QDAY BP 04/21/24 06/14/25 History flash glucose sensor (FreeStyle #2 ea 06/21/24 Unknown Rx Tanmay 2 Sensor kit) mecobalamin (vitamin B12) 500 mcg 500 mcg PO DAILY SUPPLEMENT 01/07/25 05/22/25 History chewable tablet cholecalciferol (vitamin D3) 50 50 mcg PO QDAY SUPPLEMENT #90 caps 03/28/25 05/22/25 Rx mcg (2,000 unit) capsule L.acidophil,salivari-Bifido 1 cap PO DAILY SUPPLEMENT 05/23/25 Unknown History bifidum-Strep thermoph 175 mg capsule (Acidophilus Probiotic Blend) acetaminophen 500 mg capsule 500 mg PO DAILY pain 05/23/25 Unknown History albuterol sulfate 90 mcg/actuation 2 puff inhalation Q4H PRN Wheezing 05/23/25 05/04/25 History aerosol inhaler (Ventolin HFA) or shortness of breath cyclosporine 0.05 % eye drops in a 1 drp ophthalmic (eye) BID 05/23/25 05/22/25 History dropperette (Restasis) DRY/ITCHING insulin glargine 100 unit/mL (3 30 unit subcut QAM 05/23/25 05/23/25 History mL) subcutaneous pen (Basaglar KwikPen U-100 Insulin) insulin glargine 100 unit/mL (3 20 unit subcut QDAY DIABETES 05/23/25 05/23/25 History mL) subcutaneous pen (Lantus Solostar U-100 Insulin) Held on 06/13/25. Instructions: NOT USING lorazepam 1 mg tablet 1 mg PO DAILY PRN Anxiety 05/23/25 05/23/25 History multivitamin (Daily Multi-Vitamin 1 tab PO DAILY SUPPLEMENT 05/23/25 05/22/25 History tablet) omeprazole 40 mg capsule,delayed 40 mg PO DAILY GERD 05/23/25 Unknown History release Allergy/AdvReac Type Severity Reaction Status Date / Time clindamycin Allergy Mild Rash Verified 06/14/25 12:27 adalimumab (From Humira) Allergy Unknown Verified 06/14/25 12:27 amoxicillin trihydrate (From Allergy Unknown Verified 06/14/25 12:27 Augmentin) codeine Allergy Itching Verified 06/14/25 12:27 etanercept (From Enbrel) Allergy Unknown Verified 06/14/25 12:27 leflunomide (From Arava) Allergy Other Verified 06/14/25 12:27 metoprolol tartrate (From Allergy Unknown Verified 06/14/25 12:27 Lopressor) morphine sulfate (From Allergy Unknown Verified 06/14/25 12:27 Embeda) naltrexone HCl (From Embeda) Allergy Unknown Verified 06/14/25 12:27 oxymorphone (Oxymorphone) Allergy Unknown Verified 06/14/25 12:27 pioglitazone HCl (From Actos) Allergy Other Verified 06/14/25 12:27 pneumococcal 23-valent Allergy Unknown Verified 06/14/25 12:27 polysacchari (From Pneumovax 23) potassium clavulanate (From Allergy Unknown Verified 06/14/25 12:27 Augmentin) Isvqobl-JEG-FnE Reductase Allergy Unknown Verified 06/14/25 12:27 Inhibitor (Zxvyvbq-Rqf-Qcr Reductase Inhibitor) Sulfa (Sulfonamide Allergy Anaphylaxis Verified 06/14/25 12:27 Antibiotics) sulfamethoxazole (From Allergy Anaphylaxis Verified 06/13/25 09:55 Bactrim) telithromycin (From Ketek) Allergy Unknown Verified 06/14/25 12:27 tramadol HCl (From Ultram) Allergy Unknown Verified 06/14/25 12:27 trimethoprim (From Bactrim) Allergy Anaphylaxis Verified 06/14/25 12:27 Family History Father Diabetes Hypertension Mother Diabetes Hypertension Colon polyp Other Cancer Surgical History History of cardiac catheterization History of esophagogastroduodenoscopy (EGD) History of arthroscopy of right knee History of hysterectomy History of appendectomy History of colonoscopy Hx of shoulder surgery Social History household members: spouse and none housing: house Smoking Status: Current every day smoker tobacco type: cigarettes alcohol intake: current alcohol intake frequency: 0-2 drinks per day Alcohol type: hard liquor substance use type: other details: Gummies ROS Constitutional Constitutional: Denies fatigue, fever(s), poor appetite, weight gain or weight loss Gastrointestinal Gastrointestinal: Denies belching, bloating, change in bowel habits, change in stool character, chewing difficulty, coffee ground emesis, constipation, cramping, diarrhea, dyspepsia, dysphagia, early satiety, excessive flatus, fecal incontinence, heartburn, hematemesis, hematochezia, hemorrhoids, loose stools, melena, nausea, odynophagia, rectal bleeding, tenesmus, vomiting or weight changes Vital Signs Vital Signs Vital Signs: 06/14/25 12:28 06/14/25 12:28 06/14/25 13:08 Temperature 97.0 F L 97.0 F L Temperature Source Temporal Pulse Rate 95 95 Respiratory Rate 18 18 Respiratory Pattern Normal Blood Pressure 155/97 H 155/97 H Blood Pressure Mean 116 Pulse Ox 98 98 Oxygen Delivery Method Room Air Room Air Weight Weight: 199 lb 15.348 oz Body Mass Index (BMI) 30.4 Physical Exam Const alert, oriented x3, no apparent distress and healthy appearing General Appearance: cooperative GI normal to inspection, nondistended, normoactive bowel sounds, soft to palpation, non-tender and non-distended Percussion: normal to percussion Rectal Exam: deferred Results Lab / Micro Data Labs: Laboratory Results - last 24 hr 06/14/25 12:45: POC Glucose 193 H Assessment & Plan Assessment/Plan (1) Abdominal pain: PLAN: Assessment and Plan Assessment and Plan (1) Elevated liver enzymes: Status: Chronic (2) Hepatomegaly: Status: Acute (3) Nausea & vomiting: Status: Acute Qualifiers: Vomiting Intractability: intractable Vomiting type: unspecified Qualified Code(s): R11.2 - Nausea with vomiting, unspecified Plan: Aaliyah is a 60-year-old female patient with a past medical of CRPS/RSD here today for evaluation of elevated liver enzymes. On chart review it appears her liver enzymes have been intermittently elevated since 2014. Recent CT showing hepatomegaly. Patient endorsing daily alcohol use which consisted of around 4 shots of vodka in the evening to help her sleep. She is also taking acetaminophen and ibuprofen daily due to chronic pain. Patient has metabolic risk factors for fatty liver including diabetes. She will undergo liver elastography to determine the severity. Recent blood work was without signs of cirrhosis. Will order acute hepatitis panel and PT/INR. We may consider further workup pending these results however believe that these findings are related to alcohol use, diabetes and use of hepatotoxic medications. I strongly encouraged alcohol cessation and that she follow-up with her psychiatrist to discuss treatment options for sleep. Patient also endorsing nausea and vomiting starting in her 30s and progressively becoming worse. She is having around 5 episodes of emesis per day. Emesis is typically triggered by sunlight. It is not always dependent on oral intake but she notes that she can only eat a few bites. In the past she has had a gastric emptying study. She will undergo EGD and we may consider repeat gastric emptying study. She feels the nausea and vomiting may be related to her CRPS/RSD. - Liver elastography - Hepatitis panel and PT/INR - Encouraged alcohol cessation - EGD - Follow-up after procedure Orders: Orders D/C Safety Score for UGIB Assessment Ignacio-Blatchford Bleeding Score (GBS): Stratifies upper GI bleeding patients who are "low-risk" and candidates for outpatient management. Hemoglobin, BUN, Recent Vital Signs: Pulse Rate 95 Blood Pressure 155/97 Total Risk Score: 1 Score Interpretation: Score of 0: A GBS of 0 is a “Low Risk” GI bleed, and is highly sensitive (99.6% in a 2006 retrospective study) for predicting which patients did not require any “medical intervention”: blood transfusion, endoscopy, or surgery. This was confirmed in a 2008 [facility] study where patients with a score of 0 were actually discharged and had no GI bleeding mortality at 6 month followup Score above 0: A GBS greater than zero suggests a “High Risk” GI bleed that is likely to require “medical intervention”: transfusion, endoscopy, or surgery. A higher GBS also correlated with a higher likelihood of needing intervention Scores >/= 6 are associated with >50% risk of needing intervention D/C Safety Score for LGIB Assessment Assessment Tool: Readmission and adverse event risk in patients with acute lower GI bleeding. Age, in years: 40-69 Hemoglobin and Recent Vital Signs: Pulse Rate 95 06/14/25 13:08 Blood Pressure 155/97 06/14/25 13:08 Probability of safe discharge: 99% Total Risk Score: 1 Score Interpretation: Probability Percentage of safe discharge (absence of rebleeding, blood transfusion, therapeutic intervention, 28 day readmission, or ) Score of 8 or below: Consider discharge, with appropriate precautions. Score of 9 or above: Discharge NOT recommended. Consider admission with further workup and resuscitation as necessary.
--- NOTE | 2025-06-14 14:17 | OP.EGD_ITS ---
Patient Name: Chrissy De La Torre Procedure Date: 06/14/2025 1:36 PM Date of : 1965 Age: 60 Procedure: Upper GI endoscopy Indications: Epigastric abdominal pain, Functional Dyspepsia Providers: Yousif Casey DO Referring MD: Perry Mcrae Medicines: Monitored Anesthesia Care Patient Profile: This is a 60 year old female. Refer to note in patient chart for documentation of history and physical. Patient has symptoms of chronic epigastric abdominal pain. Complications: No immediate complications. Procedure: Pre-Anesthesia Assessment: - Prior to the procedure, a History and Physical was performed, and patient medications and allergies were reviewed. The patient is competent. The risks and benefits of the procedure and the sedation options and risks were discussed with the patient. All questions were answered and informed consent was obtained. Patient identification and proposed procedure were verified by the physician in the pre-procedure area. Mental Status Examination: normal. Respiratory Examination: clear to auscultation. CV Examination: normal. Prophylactic Antibiotics: The patient does not require prophylactic antibiotics. Prior Anticoagulants: The patient has taken no anticoagulant or antiplatelet agents except for NSAID medication. ASA Grade Assessment: II - A patient with mild systemic disease. After reviewing the risks and benefits, the patient was deemed in satisfactory condition to undergo the procedure. The anesthesia plan was to use monitored anesthesia care (MAC). Immediately prior to administration of medications, the patient was re-assessed for adequacy to receive sedatives. The heart rate, respiratory rate, oxygen saturations, blood pressure, adequacy of pulmonary ventilation, and response to care were monitored throughout the procedure. The physical status of the patient was re-assessed after the procedure. After obtaining informed consent, the endoscope was passed under direct vision. Throughout the procedure, the patient's blood pressure, pulse, and oxygen saturations were monitored continuously. The gastroscope was introduced through the mouth, and advanced to the fourth part of the duodenum. Small bowel enteroscopy was deemed necessary. The upper GI endoscopy was accomplished without difficulty. The patient tolerated the procedure well. Scope In: 1:55:25 PM Scope Out: 2:00:32 PM Total Procedure Duration Time 0 hours 5 minutes 7 seconds Findings: LA Grade A (one or more mucosal breaks less than 5 mm, not extending between tops of 2 mucosal folds) esophagitis with no bleeding was found 34 to 37 cm from the incisors. Biopsies were taken with a cold forceps for histology. Verification of patient identification for the specimen was done. Estimated blood loss was minimal. Patchy mild inflammation characterized by erythema and friability was found in the gastric antrum. Biopsies were taken with a cold forceps for histology. Verification of patient identification for the specimen was done. Estimated blood loss was minimal. Patchy mild inflammation characterized by congestion (edema) and erosions was found in the second portion of the duodenum. Biopsies were taken with a cold forceps for histology. Verification of patient identification for the specimen was done. Estimated blood loss was minimal. Impression: - LA Grade A reflux esophagitis with no bleeding. Biopsied. - Chronic gastritis. Biopsied. - Duodenitis. Biopsied. Recommendation: - Discharge patient to home. - Resume previous diet. - Continue present medications. - Await pathology results. Procedure Code(s): --- Professional --- 11993, Small intestinal endoscopy, enteroscopy beyond second portion of duodenum, not including ileum; with biopsy, single or multiple CPT copyright 2021 [employer]. All rights reserved. The codes documented in this report are preliminary and upon dealer relationship manager review may be revised to meet current compliance requirements. Yousif Casey DO 06/14/2025 2:17:11 PM This report has been signed electronically. Number of Addenda: 0 Note Initiated On: 06/14/2025 1:36 PM
--- NOTE | 2025-06-14 14:17 | OP.PROVAT_ITS ---
06/14/2025 Perry Mcrae Re : Upper GI endoscopy procedure for Chrissy De La Torre Dear Arpita This procedure was performed on Saturday, June 14, 2025. My impressions and recommendations are as follows: Impressions : - LA Grade A reflux esophagitis with no bleeding. Biopsied. - Chronic gastritis. Biopsied. - Duodenitis. Biopsied. Recommendations : - Discharge patient to home. - Resume previous diet. - Continue present medications. - Await pathology results. My findings are described in the full procedure note, which is enclosed. If I can be of further assistance, please feel free to contact me at . Sincerely, Yousif Casey, 06/14/2025 2:17:11 PM This report has been signed electronically.
--- NOTE | 2025-06-14 14:17 | PCM.POST.ANE ---
Anesthesia: Postop Eval I Current Vital Signs Temperature: 98.7 F Pulse Rate: 98 Blood Pressure: 142/79 Respiratory Rate: 18 Pulse Ox: 92 Oxygen Delivery Method: Room Air Assessment Airway patent: Yes Spontaneous unlabored respirations: Yes Mental status: Awake nausea: No Vomiting: No Anesthesia Complication: No Fluid Hydration Crystalloid volume administer (ml): 400 Total IV fluid infused: 400 Progress Note Anesthesia document: Postop Eval 1 completed: Yes
--- NOTE | 2025-06-14 15:45 | PCM.POSTANE2 ---
Anesthesia Postop Eval I Sum Postop Eval Completion status Anesthesia document: Postop Eval 1 completed: Yes Anesthesia Postop Eval I Summary Anesthesia Postop Eval I Summary: Anesthesia Postop Eval I: Assessment Summary Airway patent Yes 06/14/25 14:18 [email or web address] Spontaneous unlabored Yes 06/14/25 14:18 [email or web address] respirations Mental status Awake 06/14/25 14:18 [email or web address] nausea No 06/14/25 14:18 [email or web address] Vomiting No 06/14/25 14:18 [email or web address] Anesthesia Postop Eval I: Fluid Summary Crystalloid volume administer 400 06/14/25 14:18 [email or web address] (ml) Colloids volume administered ( ml) Blood Product volume administered (ml) Total IV fluid infused 400 06/14/25 14:18 [email or web address] Anesthesia Postop Eval I: Summary Notes Anesthesia Complication No 06/14/25 14:18 [email or web address] Anesthesia Complication Comment: Post-operative progress note Anesthesia: Postop Eval II Evaluation Mental status: Awake Pain Level: 0 nausea: No Vomiting: No Complications Anesthesia Complication: No
== END 2025-06-14 14:39 | disposition home or self-care (01) ==
LOC: EN 12:05 → AC 12:06
PROVIDERS: PCP Registered Nurse; Referring Provider Registered Nurse; Visit Provider Internal Medicine Gastroenterology
DX: K21.00 Gastro-esophageal reflux disease with esophagitis, without bleeding (principal); E11.22 Type 2 diabetes mellitus with diabetic chronic kidney disease; N18.30 Chronic kidney disease, stage 3 unspecified; K76.0 Fatty (change of) liver, not elsewhere classified; I12.9 Hypertensive chronic kidney disease with stage 1 through stage 4 chronic kidney disease, or unspecified chronic kidney disease; E78.00 Pure hypercholesterolemia, unspecified; K29.80 Duodenitis without bleeding; K29.50 Unspecified chronic gastritis without bleeding; F17.210 Nicotine dependence, cigarettes, uncomplicated; Z79.899 Other long term (current) drug therapy; R11.2 Nausea with vomiting, unspecified; K31.A19 Gastric intestinal metaplasia without dysplasia, unspecified site; I25.10 Atherosclerotic heart disease of native coronary artery without angina pectoris; J45.909 Unspecified asthma, uncomplicated; R74.8 Abnormal levels of other serum enzymes
CPT/HCPCS: 44361; 82962; 88305; 88312; 88342; J2405